=== PATIENT | male | born 1995 | race Caucasian/White ===

== ENCOUNTER 2022-04-12 13:01 | Outpatient (CLI) | payer OTHER, SELFPAY ==
--- OUTSIDE RECORDS SUMMARY | 2022-04-12 08:12 | XMS_ITS | Encounter Summary ---
:1995 Author Organization [facility] Address [address] [place] [address] Care Team Providers Name Role Phone Elsewhere, Pcp Primary Care Provider Unavailable Reason for Visit Reason Comments Previsit Preparation [facility] Appointment Request (Routine) - Authorized Specialty Diagnoses / Procedures Referred By Contact Refer red To Contact Endocrinology Diagnoses Dysphoria Gender Adolescent Or Adult Referral ID Status Reason Start Date Expiration Date Visits V isits Requested Authorized [id number] Authorized 10/29/2021 10/29/2022 4 4 Encounter Details Date Type Department Care Team Description 01/04/2022 Clinical Communication Division of Previ sit Preparation Endocrinology in ([facility]) [place], [place] [address] [place] [address] Social History Tobacco Use Types Packs/Day Years Used Date Smoking Tobacco: Some Days Smokeless Tobacco: Never Alcohol Use Standard Drinks/Week Comments Yes 0 (1 standard drink = 0.6 oz pure alcoho l) occasional Alcohol Habits Answer Date Recorded How often do you have a drink containing alcohol? Monthly or less 03/20/2022 How many drinks containing alcohol do you have on a 1 or 2 03/20/2022 typical day when you are drinking? How often do you have six or more drinks on one Never 03/20/2022 occasion? Social Isolation Answer Date Recorded In a typical week, how many times do you talk on the Once a week 03/20/2022 phone with family, friends, or neighbors? How often do you get together with friends or Once a week 03/20/2022 relatives? How often do you attend adventism or jewish services? Never 03/20/2022 Do you belong to any clubs or organizations such as No 03/20/2022 adventism groups, unions, fraternal or athletic groups, or school groups? How often do you attend meetings of the clubs or Never 03/20/2022 organizations you belong to? Are you now , , , , Patient r efused 03/20/2022 never or living with a partner? Physical Activity Answer Date Recorded On average, how many days per week do you engage in moderate to 2 days 03/20/2022 strenuous exercise (like walking fast, running, jogging, dancing, swimming, biking, or other activities that cause a light or heavy sweat)? On average, how many minutes do you engage in exercise at th is 30 min 03/20/2022 level? Stress Answer Date Recorded Do you feel stress - tense, restless, nervous, or To some ex tent 03/20/2022 anxious, or unable to sleep at night because your mind is troubled all the time - these days? Financial Resource Strain Answer Date Recorded How hard is it for you to pay for the very basics like food, Very hard 03/20/2022 housing, medical care, and heating? Intimate Partner Violence Answer Date Recorded Within the last year, have you been afraid of your partner o r No 03/20/2022 ex-partner? Within the last year, have you been humiliated or emotionall y No 03/20/2022 abused in other ways by your partner or ex-partner? Within the last year, have you been kicked, hit, slapped, or No 03/20/2022 otherwise physically hurt by your partner or ex-partner? Within the last year, have you been raped or forced to have any No 03/20/2022 kind of sexual activity by your partner or ex-partner? Food Insecurity Answer Date Recorded Within the past 12 months, you worried that your food would Never true 03/20/2022 run out before you got money to buy more. Within the past 12 months, the food you bought just didn't N ever true 03/20/2022 last and you didn't have money to get more. Transportation Needs Answer Date Recorded In the past 12 months, has lack of transportation kept you f rom No 03/20/2022 medical appointments or from getting medications? In the past 12 months, has lack of transportation kept you f rom No 03/20/2022 meetings, work, or getting things needed for daily living? Housing Stability Answer Date Recorded In the last 12 months, was there a time when you were Patien t refused 03/20/2022 not able to pay the mortgage or rent on time? In the last 12 months, how many places have you lived? Not a sked In the last 12 months, was there a time when you did Yes 03/20/[address] to sleep or slept in a intermediate (including now)? Sex Assigned at Date Recorded Female 03/20/2022 7:54 AM CDT documented as of this encounter Miscellaneous Notes Telephone Encounter - Nehemiah, Yessenia Edmond R.N. - 01/04/2022 1:04 PM CDT CHIEF COMPLAINT/REASON FOR VISIT Pre-Visit [facility] - Nurse Assessment Date of [facility] appointment: 01/30 Dr. Valente Date of Behavioral Health appointment: 01/23 Dr. Gregg HISTORY OF PRESENT ILLNESS Affirmed Name: Jamin/Pablo Pronouns: he/him Gender identity: male (self-identified by patient) Assigned sex at : Female Patient identified the following barriers to learning: none Gender affirming interventions: Approximate start of social affirmation practices: 6 years ago Hormone therapy: Currently hormones prescribed by providers at [facility]. 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 Ballesteros [facility] Medical History: Anxiety, Depression, PTSD and Bipolar ( on medications) Asthma Genital Herpes Chronic genital pain due to repeat surgeries, takes muscle relaxer and medical marijuana Personal and family history of blood clot ( 2018 personal) not currently on blood thinners, has beentold he has thicker blood ASSESSMENT/PLAN Patient goal(s) for upcoming [facility] visit: transfer gender care to [place] as crime in [place] is terrible. Patient long-term goal(s): penile implant Patient was advised that [facility] follows the [employer] for Transgender Health (WPATH) Standards of Care, Version 7 guidelines. Reviewed appropriate WPATH criteria with patient. Patient reported height: 5'5 Patient reported weight: 204 lbs Calculated BMI: 33.9 Patient advised of surgical BMI requirement < 35 for optimal outcomes Tobacco use: Patient currently smokes medical marijuana . Denies nicotine. Discussed need for letter(s) of support based on desired procedures. Education: patient/caller able to teach back The following references were used: nursing clinical judgement documented in this encounter Plan of Treatment Upcoming Encounters Date Type Specialty Care Team Description 05/23/2022 Telemedicine Endocrinology Arely Bond M.B., B.Ch. [address] [place] [address] [phone] (Wo [id number]) documented as of this encounter Visit Diagnoses Not on filedocumented in this encounter Care Teams Checker Relationship Specialty Start Date End Date Elsewhere, Pcp PCP - General Pot Feeder 07/01/19 documented as of this encounter
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
--- OUTSIDE RECORDS SUMMARY | 2022-04-12 08:12 | XMS_ITS | Encounter Summary ---
:1995 Author Organization [facility] Address [address] [place] [id number] Care Team Providers Name Role Phone Elsewhere, Pcp Primary Care Provider Unavailable Encounter Details Date Type Department Care Team Description 03/20/2022 Hospital Encounter Department of Gomez Bond Gender Laboratory Medicine Deandra Clay, Jak mejia Or Adult and Pathology, [facility] [place] [address] [place] [phone] [place] [address] [place], [place] (Work) [phone] Social History Tobacco Use Types Packs/Day Years Used Date Smoking Tobacco: Some Days Cigarettes Smokeless Tobacco: Never Alcohol Use Standard Drinks/Week [...] 03/20/2022 relatives? How often do you attend denominational or sabianist services? Never 03/20/2022 Do you belong to any clubs or organizations such as No 03/20/2022 denominational groups, unions, fraternal or athletic groups, or [...] place to sleep or slept in a fpc (including now)? Education Answer Date Recorded What is the highest level of school you have completed or 12 th grade 03/20/2022 the highest degree you have received? Sex Assigned at Date Recorded Female 03/20/2022 7:54 AM CDT documented as of this encounter Medications at Time of Discharge Medication Sig Dispensed Refills Start Date End Date acetaminophen (TYLENOL) Take 650 mg by mouth. 0 0 03/15/2016 325 mg tablet albuterol (PROVENTIL Inhale 2 puffs. 0 12/24/2014 HFA,VENTOLIN HFA) 90 mcg/actuation inhaler amphetamine-dextroamphet 0 06/12/2021 amine (ADDERALL XR) 20 mg 24 hr capsule atorvastatin (LIPITOR) Take 40 mg by mouth 0 40 mg tablet daily. bacitracin zinc 500 Apply topically. 0 08/10/2019 unit/gram ointment BD Regular [place]vel [place] USE ONCE WEEKLY FOR 0 27 gauge x 1/2 needle ADMINISTERING HORMONE BD Tuberculin Slip-Tip 1 USE ONCE WEEKLY TO 0 04/2022 mL syringe DRAW UP HORMONES busPIRone (BUSPAR) 30 mg Take 30 mg by mouth 2 0 02/12/2022 tablet (two) times a day. celecoxib (CeleBREX) 200 Take by mouth. 0 mg capsule cholecalciferol (VITAMIN Take 1 tablet by 0 07/17 D3) 50 mcg (2,000 Unit) mouth daily. tablet cyclobenzaprine Take 10 mg by mouth 3 0 2 (FLEXERIL) 10 mg tablet (three) times a day as needed. cyclobenzaprine take 1-2 tablets by 0 11/23/2020 08/08/2022 (FLEXERIL) 5 mg tablet oral route daily as needed for back pain desvenlafaxine daily. 0 (KHEDEZLA) 50 mg 24 hr tablet desvenlafaxine (PRISTIQ) TAKE 1 TAB EACH DAY 0 25 mg 24 hr tablet WITH A 50 MG TAB desvenlafaxine (PRISTIQ) Take 50 mg by mouth 0 50 mg 24 hr tablet daily. dicyclomine (BENTYL) 10 20 mg 4 (four) times 0 mg/5 mL solution a day before meals and bedtime. diphenhydrAMINE Take 50 mg by mouth. 0 03/30/2013 (BENADRYL) 50 mg capsule doxepin (SINEquan) 25 mg TAKE 2 CAPSULES (50 0 capsule MG) BY MOUTH DAILY AT BEDTIME hydrOXYzine (VISTARIL) 0 06/12/2021 50 mg capsule ketorolac (TORADOL) 10 Take by mouth. 0 mg tablet lisinopriL Take 10 mg by mouth 0 01/25/2022 (PRINIVIL,ZESTRIL) 10 mg daily. tablet lisinopriL Take 20 mg by mouth 0 03/01/2022 (PRINIVIL,ZESTRIL) 20 mg daily. tablet meloxicam (MOBIC) 7.5 mg Take 7.5 mg by mouth 0 0 03/11/2022 tablet daily. methylphenidate HCl TAKE 2 TABLETS (20 0 03/07/ 22 (RITALIN) 10 mg tablet MG) BY MOUTH 1 TIME PER DAY ON EMPTY STOMACH metoclopramide (REGLAN) TAKE 1 TABLET BY 0 2021 5 mg tablet MOUTH THREE TIMES DAILY NEEDED FOR NAUSEA AND VOMITING. [facility] Prescription Trazapam 15 mg i po 0 6 (Allergy Immunotherapy) daily for sleep Monoject Hypodermic USE TO DRAW UP 0 02/24/2022 Polypropyl 18 gauge x 1 HORMONES ONCE WEEKLY needle montelukast (SINGULAIR) Take 10 mg by mouth. 0 10 mg tablet naproxen (NAPROSYN) 250 Take 250 mg by mouth. 0 0 10/24/2012 mg tablet nicotine (NICODERM CQ) 7 Place 1 patch on the 56 patch 0 1 mg/24 hr skin daily. patchIndications: Nicotine Dependence Cigarettes nortriptyline (PAMELOR) Take 50 mg by mouth 0 25 mg capsule daily. omeprazole (PriLOSEC) [address] capsule ondansetron (ZOFRAN) 4 Take 4 mg by mouth 0 mg tablet every 8 (eight) hours as needed for nausea or vomiting. ondansetron ODT 4 mg. 0 02/25/2019 (ZOFRAN-ODT) 4 mg disintegrating tablet OXcarbazepine TAKE 1 TABLET BY 0 02/25/2022 (TRILEPTAL) 150 mg MOUTH IN THE MORNING tablet AND 2 TABLETS AT BEDTIME. pantoprazole (PROTONIX) 0 06/12/2021 20 mg EC tablet PARoxetine (PAXIL) 20 mg Take 20 mg by mouth. 0 1 tablet pirbuterol acetate Inhale 2 puffs as 0 05/21/2011 (MAXAIR AUTOHALER INHL) needed. predniSONE (DELTASONE) Take 1 tablet (10 mg 50 tablet 1 10/2021 10 mg tablet total) by mouth daily. predniSONE (DELTASONE) Take 40 mg by mouth. 0 20 mg tablet pregabalin (LYRICA) 300 Take 300 mg by mouth 0 mg capsule 2 (two) times a day. rosuvastatin (CRESTOR) Take 20 mg by mouth 0 02/14 20 mg tablet daily. solifenacin (VESICARE) 5 daily. 0 mg tablet sulfamethoxazole-trimeth Take 1 tablet by 0 03/31 oprim (BACTRIM DS) mouth 2 (two) times a 800-160 mg per tablet day. testosterone cypionate Inject 60 mg 0 06/18/2021 (DEPO-TESTOSTERONE) 200 intramuscularly. mg/mL injection valACYclovir (VALTREX) Take 1 tablet by 0 015 500 mg tablet mouth. documented as of this encounter Plan of Treatment Upcoming Encounters Date Type Specialty Care Team Description 05/23/2022 Telemedicine Endocrinology Arely Bond M.B., B.Ch. 200 [place], [place] [phone] (Wo rk) documented as of this encounter Procedures Procedure Name Priority Date/Time Associated Comments Diagnosis LIPID PANEL, S Routine 03/20/2022 9:54 AM Dysphoria Gender Res ults for this CDT Adolescent Or Adult procedur e are in the results section. CBC WITHOUT Routine 03/20/2022 9:54 AM Dysphoria Gender Resul ts for this DIFFERENTIAL, B CDT Adolescent Or Adult proce dure are in the results section. TESTOSTERONE, TOT AND Routine 03/20/2022 9:54 AM Dysphoria Gen josh Results for this FR, S CDT Adolescent Or Adult procedur e are in the results section. HEMOGLOBIN A1C, B Routine 03/20/2022 9:54 AM Dysphoria Gender Results for this CDT Adolescent Or Adult procedur e are in the results section. COMPREHENSIVE Routine 03/20/2022 9:54 AM Dysphoria Gender Resu lts for this METABOLIC PANEL, S/P CDT Adolescent Or Adult procedure are in the results section. documented in this encounter Results Testosterone, Total and Free (03/20/2022 9:54 AM CDT) athologist Signature Testosterone, 15.7 5.05 - 19.8 03/29/2022 SDSC Free, S ng/dL 1:27 PM CDT Comment: ----ADDITIONAL INFORMATION---- This test was developed and its performa nce characteristics determined by [facility] in a manner consistent with CLIA requirements. This test has not been cleared or approved by the [place] d and Drug Administration. Testosterone, Total by Mass 337 240 - 950 ng/dL 2021 3:05 PM CDT SDSC Spectrometry, Serum Comment: ----ADDITIONAL INFORMATION---- Testing performed by Liquid Chromatograp hy-Tandem Mass Spectrometry (LC-MS/MS). This test was developed and its performa nce characteristics determined by [facility] in a manner consistent with CLIA requirements. This test has not been cleared or approved by the [place] A[place] d and Drug Administration. Specimen Anatomical Collection Method Collection Time Receive d Time (Source) Location / / Volume Laterality Blood (Blood, 03/20/2022 9:54 AM 03/21/20 22 6:41 Venous) CDT AM CDT Arely Liriano, B.Ch. LAB BLOOD NON ADD -ON Performing Organization Address City/State/ZIP Code Phon e Number [facility] [address] [place], [place] [address] [facility] [place] [address] [place] (ABNORMAL) Lipid Panel (03/20/2022 9:54 AM CDT) P athologist Signature Triglycerides 455 (H) mg/dL 03/20/2022 DTL 11:02 AM CDT Comment: ----REFERENCE VALUE---- Normal: <150 mg/dL Borderline High: 150-199 mg/dL High: 200-499 mg/dL Very High: > or =500 mg/dL Cholesterol, Total 273 (H) mg/dL 03/20/2022 11:02 AM C DT DTL Comment: ----REFERENCE VALUE---- Desirable: < 200 mg/dL Borderline High: 200 - 239 mg/dL High: > or = 240 mg/dL Cholesterol, LDL, Calculated 148 (H) mg/dL 03/20/2022 11:02 AM CDT DTL Comment: ----REFERENCE VALUE---- Desirable: <100 mg/dL Above Desirable: 100-129 mg/dL Borderline High: 130-159 mg/dL High: 160-189 mg/dL Very High: >=190 mg/dL ----ADDITIONAL INFORMATION---- LDL cholesterol calculated using the Ribera/NIH equation. Cholesterol, HDL, S 39 (L) >=40 mg/dL 03/20/2022 11:02 AM CDT DTL Cholesterol, Non-HDL, Calculated 234 (H) mg/dL 11:02 AM CDT DTL Comment: ----REFERENCE VALUE---- Desirable: <130 mg/dL Above Desirable: 130-159 mg/dL Borderline High: 160-189 mg/dL High: 190-219 mg/dL Very High: > or =220 mg/dL Fasting (8 HR or more) Yes 03/20/2022 10:35 AM CDT DTL Specimen Anatomical Collection Method Collection Time Receive d Time (Source) Location / / Volume Laterality Blood (Blood, 03/20/2022 9:54 AM 03/20/20 22 Venous) CDT 10:35 AM CDT Arely Liriano, B.Ch. LAB BLOOD ADD-ON Performing Organization Address City/State/ZIP Code Phon e Number [facility] - [address] [place] [address] (ABNORMAL) Hemoglobin A1c (03/20/2022 9:54 AM CDT) athologist Signature Hemoglobin A1c, 6.3 (H) 4.0 - 5.6 03/20/2022 DTL B % 11:41 AM CDT Comment: Hemoglobin A1c values of 5.7-6.4 percent indicate an increased risk for developing diabetes lauro traylor. In diabetic patients, HbA1c goals should be discussed with healthcare provider. Specimen Anatomical Collection Method Collection Time Receive d Time (Source) Location / / Volume Laterality Blood (Blood, 03/20/2022 9:54 AM 03/20/20 Venous) CDT 10:22 AM CDT Arely Liriano, B.Ch. LAB BLOOD ADD-ON Performing Organization Address City/[facility] Phon e Number [facility] - 200 [place], [place] [address] [place] [phone] (ABNORMAL) Comprehensive Metabolic Panel (03/20/2022 9:54 AM CDT) athologist Signature Potassium, S 4.8 3.6 - 5.2 03/20/2022 DTL mmol/L 11:02 AM CDT Sodium, S 139 135 - 145 03/20/2022 DTL mmol/L 11:02 AM CDT Chloride, S 99 98 - 107 03/20/2022 DTL mmol/L 11:02 AM CDT Bicarbonate, S 27 22 - 29 03/20/2022 DTL mmol/L 11:02 AM CDT Anion Gap 13 7 - 15 03/20/2022 DTL 11:02 AM CDT BUN (Blood Urea 19 8 - 24 03/20/2022 DTL Nitrogen), S mg/dL 11:02 AM CDT Creatinine 1.30 0.74 - 03/20/2022 DTL 1.35 mg/dL 11:02 AM CDT Estimated GFR 77 >=60 03/20/2022 DTL (eGFR) mL/min/BSA 11:02 AM CDT Comment: Estimated GFR calculated using the 2020 CKD_EPI creatinine equation. Calcium, Total, S 9.9 8.6 - 10.0 mg/dL 03/20/2022 11:0 2 AM CDT DTL Glucose, S 117 70 - 140 mg/dL 03/20/2022 11:02 AM CDT DTL Protein, Total, S 7.0 6.3 - 7.9 g/dL 03/20/2022 11:02 AM CDT DTL Albumin, S 4.7 3.5 - 5.0 g/dL 03/20/2022 11:02 AM CDT DTL Aspartate Aminotransferase 73 (H) 8 - 48 U/L 03/20/2022 1 1:02 AM CDT DTL (AST), S Alkaline Phosphatase, S 64 40 - 129 U/L 03/20/2022 11 :02 AM CDT DTL Alanine Aminotransferase 97 (H) 7 - 55 U/L 03/20/2022 11: 02 AM CDT DTL (ALT), S Bilirubin, Total, S 0.3 <=1.2 mg/dL 03/20/2022 11:02 A M CDT DTL Specimen Anatomical Collection Method Collection Time Receive d Time (Source) Location / / Volume Laterality Blood (Blood, 03/20/2022 9:54 AM 03/20/20 22 Venous) CDT 10:35 AM CDT Arely Liriano, B.Ch. LAB BLOOD ADD-ON Performing Organization Address City/State/ZIP Code Phon e Number [facility] - [address] [place], [place] [address] [place] [address] [facility] [address] CBC without Differential (03/20/2022 9:54 AM CDT) P athologist Signature Hemoglobin 15.2 13.2 - 03/20/2022 DTL 16.6 g/dL 11:14 AM CDT Hematocrit 46.9 38.3 - 03/20/2022 DTL 48.6 % 11:14 AM CDT Erythrocytes 5.09 4.35 - 03/20/2022 DTL 5.65 11:14 AM CDT x10(12)/L MCV 92.1 78.2 - 03/20/2022 DTL 97.9 fL 11:14 AM CDT RBC Distrib Width 13.1 11.8 - 03/20/2022 DTL 14.5 % 11:14 AM CDT Platelet Count 265 135 - 317 03/20/2022 DTL x10(9)/L 11:14 AM CDT Leukocytes 5.7 3.4 - 9.6 03/20/2022 DTL x10(9)/L 11:14 AM CDT Specimen Anatomical Collection Method Collection Time Receive d Time (Source) Location / / Volume Laterality Blood (Blood, 03/20/2022 9:54 AM 03/20/20 22 Venous) CDT 10:22 AM CDT Arely Liriano, B.Ch. LAB BLOOD ADD-ON Performing Organization Address City/State/ZIP Code Phon e Number [facility] - [address] [place], [place] [address] [place] [address] [facility] [address] documented in this encounter Visit Diagnoses Diagnosis Dysphoria Gender Adolescent Or Adult documented in this encounter Additional Health Concerns Assessment Noted Time PHQ-9 Depression Total Score: 11 01/23/2022 8:08 AM CD T documented as of this encounter Care Teams Manager Appointment Relationship Specialty Start Date End Date Elsewhere, Pcp PCP - General Esthetician Permanent Makeup Artist 07/01/19 documented as of this encounter
--- OUTSIDE RECORDS SUMMARY | 2022-04-12 08:12 | XMS_ITS | Encounter Summary ---
:1995 Author Organization [facility] Address [address] [place] [address] Care Team Providers Name Role Phone Elsewhere, Pcp Primary Care Provider Unavailable Reason for Visit Reason Comments Follow-up [facility] Encounter Details Date Type Department Care Team Description 03/20/2022 Clinical Communication Division of Guido Jaramillo ([facility]) Endocrinology in [place], [place] [facility] [address] [facility] [phone] [place], [place] (Work) [phone] Social History Tobacco Use Types Packs/Day Years [...] 03/20/2022 relatives? How often do you attend oriental orthodox or mormonism services? Never 03/20/2022 Do you belong to any clubs or organizations such as No 03/20/2022 oriental orthodox groups, unions, fraternal or athletic groups, or [...] place to sleep or slept in a retirement (including now)? Education Answer Date Recorded What is the highest level of school you have completed or 12 th grade 03/20/2022 the highest degree you have received? Sex Assigned at Date Recorded Female 03/20/2022 7:54 AM CDT documented as of this encounter Plan of Treatment Upcoming Encounters Date Type Specialty Care Team Description 05/23/2022 Telemedicine Endocrinology Arely Bond M.B., B.Ch. [address] [place] [phone] (Wo rk) documented as of this encounter Visit Diagnoses Diagnosis Nicotine Dependence Cigarettes - Primary documented in this encounter Additional Health Concerns Assessment Noted Time PHQ-9 Depression Total Score: 11 01/23/2022 8:08 AM CD T documented as of this encounter Care Teams Carbider Relationship Specialty Start Date End Date Elsewhere, Pcp PCP - General Paint Dipper 07/01/19 documented as of this encounter
--- OUTSIDE RECORDS SUMMARY | 2022-04-12 08:12 | XMS_ITS | Encounter Summary ---
:1995 Author Organization [facility] Address [address] [place] [id number] Care Team Providers Name Role Phone Elsewhere, Pcp Primary Care Provider Unavailable Reason for Referral Outpatient (Routine) - Authorized Specialty Diagnoses / Procedures Referred By Contact Refer red To Contact Endocrinology Arely Bond [place] M.B., B.Ch. [address] [place], [place] [address] Referral ID Status Reason Start Date Expiration Date Visits V isits Requested Authorized [id number] Authorized 03/20/2022 03/19/2025 1 1 Reason for Visit Reason Comments [facility] Appointment Request (Routine) - Authorized Specialty Diagnoses / Procedures Referred By Contact Refer layne To Contact Endocrinology Diagnoses Dysphoria Gender Adolescent Or Adult Referral ID Status Reason Start Date Expiration Date Visits V isits Requested Authorized [id number] Authorized 10/29/2021 10/29/2022 4 4 Encounter Details Date Type Department Care Team Description 03/20/2022 Comprehensive Visit Division of Ronda, Gomez francisco javier Gender Endocrinology in [place], [place] Deandra, B.Ch. Adult (Primary Dx) [address] [place] [address] [address] [place] [phone] Social History Tobacco Use Types Packs/Day Years Used Date Smoking Tobacco: Some Days Cigarettes Smokeless Tobacco: Never Tobacco Cessation: Ready to Quit: Not As ked; Counseling Given: Not Answered Alcohol Use Standard Drinks/Week Comments Yes 0 [...] How often do you attend denominational or taoist services? Never 03/20/2022 Do you belong to [...] to sleep or slept in a senior care (including now)? Education Answer Date Recorded What is the highest level of school you have completed or 12 th grade 03/20/2022 the highest degree you have received? Sex Assigned at Date Recorded Female 03/20/2022 7:54 AM CDT documented as of this encounter Last Filed Vital Signs Vital Sign Reading Time Taken Comments Blood Pressure 119/81 03/20/2022 8:06 AM CDT Pulse 84 03/20/2022 8:06 AM CDT Temperature - - Respiratory Rate - - Oxygen Saturation - - Inhaled Oxygen Concentration - - Weight 101 kg (221 lb 12.5 oz) 03/20/2022 8:06 AM CDT Height 166.7 cm (5' 5.63) 03/20/2022 8:06 AM CDT Body Mass Index 36.2 03/20/2022 8:06 AM CDT documented in this encounter Consult Notes Arely Bond M.B., B.. - 03/20/2022 8:30 AM CDT SUBJECTIVE REASON FOR CONSULT Transfer of hormone therapy. HISTORY OF PRESENT ILLNESS Jamin is a pleasant 26-year-old transgender man who presents today with his mother. He plans to transition his hormone therapy to [facility]. He was previously seen in [facility]. He did meet with my colleague, Dr. Gregg, on 01/23/2022, and I refer the reader to his extensive note. From a medical standpoint, Jamin initiated hormone therapy in 2013. He has been following with [facility] and is injecting testosterone cypionate 60 mg subcutaneous weekly typically on Fridays. He denies any recent laboratory testing. He denies any significant concerns related to his hormone therapy. He has had fairly extensive gender affirming surgery with masculinizing chest surgery in 2015. He hada hysterectomy and bilateral oophorectomy in 2013 and then phalloplasty in 2018. He had multiple complications related to his phalloplasty and had multiple revisions. He ultimately would like a penile i mplant. He is not able to urinate through the phallus. He has an opening on the perineum. He does describe some urgency and leakage. He denies any other surgeries other than gender affirming surgeries. He also has a fairly complex medical history. When we reviewed his medication list, I noted that he is on a total dose of prednisone 40 mg per day. We had further discussions around this and it seems it was prescribed for chronic back pain. This continues to be refilled with no taper plan. He believearpita has been on this for a few months. Associated with the initiation of prednisone, he has had significant weight gain. In addition, his blood pressure has significantly elevated. He does take a statinfor dyslipidemia. He has not been checked for diabetes. He does describe a history of gastroparesis.He also has a history of bipolar disorder as well as ADHD. He has chronic groin pain related to his p revious phalloplasty. He has gastroesophageal reflux disease. He does use medical marijuana. He smokes about 2 cigarettes per day. He is not currently working. FAMILY HISTORY There is an extensive family history of DVT. His mother has had multiple DVTs and PEs. She did have genetic testing and this was negative, although they described that this is likely hereditary as his maternal grandmother also had a DVT. Maternal grandfather had aortic aneurysm, coronary artery disease, and dyslipidemia. Paternal uncle with aortic aneurysm. Paternal aunt also had a DVT. Type 2 diabetes on the paternal side of the family. OBJECTIVE PHYSICAL EXAMINATION General: Jamin is pleasant. Somewhat cushingoid. Lungs: Clear to auscultation bilaterally. Cardiovascular: Regular rate and rhythm. Abdomen: Obese, soft, and nontender. Extremities: No peripheral edema. ASSESSMENT / PLAN #1 Gender dysphoria/incongruence, on masculinizing hormone therapy #2 Status post masculinizing chest surgery, total abdominal hysterectomy and bilateral salpingo-oophorectomy and subsequently phalloplasty with multiple revisions #3 Ongoing urinary urgency and mild incontinence #4 Chronic steroid use with medically complicated obesity Jamin would like to transfer his hormone therapy here to [facility]. We will check his CBC as well as total and free testosterone. With respect to his surgical care, he would eventually like a penile implant. No immediate concerns in this regard, although he does have some chronic groin pain as well as some urinary symptoms, which are stable. Our biggest discussion today centered around his chronic steroid use, which I suspect is leading to a number of his current medical concerns. Based on medical review, he is taking 40 mg of prednisone per day. We will confirm this with his nurse. I did provide them a taper plan that is fairly rapid to get his dose down as there is no clear medical indication for him utilizing this. We did discuss that he might develop some increased back pain as his dose tapers. I would like him to let me know if he develops significant symptoms of steroid withdrawal and also once he reaches 10 mg daily. We discussed that he cannot come off prednisone cold turkey as he will develop acute adrenal insufficiency. I would like to see Jamin every 3 months as we go through the steroid taper process. #5 Strong family history of DVT/PE I strongly recommended that Jamin discontinue smoking. We will see Jamin again in 3 months. We will obtain laboratory testing today. He can contact me in the interim if any acute concerns arise. Adeline Neely., B.. CT CT Job ID: [id number] documented in this encounter Plan of Treatment Upcoming Encounters Date Type Specialty Care Team Description 05/23/2022 Telemedicine Endocrinology Arely Bond M.B., B.Ch. [address] [place], [place] [phone] (Wo rk) Scheduled Referrals Name Type Priority Associated Order Schedule Diagnoses Endocrinology office Outpatient Referral Routine Expected: visit (clinic) 06/20/2022 (Approximate), Expires: 06/20/2023 documented as of this encounter Results Testosterone, Total and Free (03/20/2022 9:54 AM CDT) athologist Signature Testosterone, 15.7 5.05 - 19.8 03/29/2022 [facility] Free, S ng/dL 1:27 PM CDT Comment: ----ADDITIONAL INFORMATION---- This test was developed and its performa nce characteristics determined by [facility] in a manner consistent with CLIA requirements. This test has not been cleared or approved by the [place] A[place] d and Drug Administration. Testosterone, Total by Mass 337 240 - 950 ng/dL 2021 3:05 PM CDT [facility] Spectrometry, Serum Comment: ----ADDITIONAL INFORMATION---- Testing performed by Liquid Chromatograp hy-Tandem Mass Spectrometry (LC-MS/MS). This test was developed and its performa nce characteristics determined by [facility] in a manner consistent with CLIA requirements. This test has not been cleared or approved by the [place]. A[place] d and Drug Administration. Specimen Anatomical Collection Method Collection Time Receive d Time (Source) Location / / Volume Laterality Blood (Blood, 03/20/2022 9:54 AM 03/21/20 6:41 Venous) CDT AM CDT Arely Liriano, B.Ch. LAB BLOOD NON ADD -ON Performing Organization Address City/State/ZIP Code Phon e Number [facility] [address] [place], [place] [address] [place] [address] [facility] [address] [place] (ABNORMAL) Lipid [...] DTL Cholesterol, Non-HDL, Calculated 234 (H) mg/dL 022 11:02 AM CDT DTL Comment: ----REFERENCE VALUE---- [...] Organization Address City/State/ZIP Code Phon e Number [address] (ABNORMAL) Hemoglobin A1c (03/20/2022 9:54 AM [...] Organization Address City/State/ZIP Code Phon e Number [address] (ABNORMAL) Comprehensive Metabolic Panel (03/20/2022 9:54 [...] (Blood, 03/20/2022 9:54 AM 03/20/20 Venous) CDT 10:35 AM CDT Arely Liriano, B.Ch. LAB BLOOD ADD-ON Performing Organization Address City/State/ZIP Code Phon e Number [facility] - [address] [place] [address] [place] [address] [facility] 200 [facility] CBC without Differential (03/20/2022 9:54 AM CDT) [...] Organization Address City/State/ZIP Code Phon e Number [facility] - [address] [place], [place] [address] [facility] [place] [address] [facility] [address] documented in this encounter Visit Diagnoses Diagnosis Dysphoria Gender Adolescent Or Adult - P rimary documented in this encounter Additional Health Concerns Assessment Noted Time PHQ-9 Depression Total Score: 11 01/23/2022 8:08 AM CD T documented as of this encounter Care Teams Maintenance Mechanic Helper Relationship Specialty Start Date End Date Elsewhere, Pcp PCP - General Polymer Chemist 07/01/19 documented as of this encounter
--- OUTSIDE RECORDS SUMMARY | 2022-04-12 08:12 | XMS_ITS | Encounter Summary ---
:1995 Author Organization [facility] Address [address] [place] [address] Care Team Providers Name Role Phone Elsewhere, Pcp Primary Care Provider Unavailable Reason for Visit Reason Comments Urinary Frequency Symptoms started at dinner t john. Inability to control urination. No burning, no blood. Encounter Details Date Type Department Care Team Description 08/12/2021 Emergency [place] [facility] Gulshan Talavera Frequ ency Urinary Department C.N.P. (Primary Dx) [address] [place] [address] [place] [phone] Social History Tobacco Use Types Packs/Day Years [...] often do you attend oriental orthodox or episcopalian services? Never 03/20/2022 Do you belong to [...] place to sleep or slept in a long-term (including now)? Sex Assigned at Date Recorded Female 03/20/2022 7:54 AM CDT documented as of this encounter Last Filed Vital Signs Vital Sign Reading Time Taken Comments Blood Pressure 154/100 08/12/2021 2:20 AM APPLICATIONS SPECIALIST Pulse 84 08/12/2021 2:20 AM APPLICATIONS SPECIALIST Temperature 37.5 ??C (99.5 ??F) 08/12/2021 2:20 AM APPLICATIONS SPECIALIST Respiratory Rate 16 08/12/2021 2:20 AM APPLICATIONS SPECIALIST Oxygen Saturation 98% 08/12/2021 2:20 AM APPLICATIONS SPECIALIST Inhaled Oxygen Concentration - - Weight 92.2 kg (203 lb 4.2 oz) 08/12/2021 2:20 AM APPLICATIONS SPECIALIST Height - - Body Mass Index 34.89 12/01/2019 12:42 PM CDT documented in this encounter Discharge Instructions Discharge InstructionsGulshan Talavera, C.N.P. - 08/12/2021 3:10 AM CST Your urine is reassuring with no signs of bladder infection at this time. However, given your frequency and urgency, a urine culture is pending. If it is positive, you will be notified for antibiotic. Otherwise, you can consider Kegel exercise to train your pelvic muscle to help with the frequency andurgency. Consider follow up with your primary care provider for further evaluation next week. Go to the emergency department if you have fever, nausea or vomiting that you cannot control, abdominal pain, or worsening symptoms. ICATIONS SPECIALIST AttachmentsThe following attachments cannot be sent through Care Everywhere. Urinary Frequency Adult (Ukrainian)documented in this encounter Medications at Time of Discharge [...] 500 Apply topically. 0 08/10/2019 unit/gram ointment celecoxib (CeleBREX) 200 Take by mouth. 0 mg capsule cholecalciferol (VITAMIN Take 1 tablet by 0 07/17 D3) 50 mcg (2,000 Unit) mouth daily. tablet cyclobenzaprine take 1-2 tablets by 0 11/23/2020 08/08/2022 (FLEXERIL) 5 mg tablet oral route daily as needed for back pain dicyclomine (BENTYL) 10 20 mg 4 (four) times 0 mg/5 mL solution a day before meals and bedtime. diphenhydrAMINE Take 50 mg by mouth. 0 03/30/2013 (BENADRYL) 50 mg capsule hydrOXYzine (VISTARIL) 0 06/12/2021 50 mg capsule ketorolac (TORADOL) 10 Take by mouth. 0 mg tablet [facility] Prescription Trazapam 15 mg i po 0 6 (Allergy Immunotherapy) daily for sleep montelukast (SINGULAIR) Take 10 mg by mouth. 0 10 mg tablet naproxen (NAPROSYN) 250 Take 250 mg by mouth. 0 0 10/24/2012 mg tablet ondansetron (ZOFRAN) 4 Take 4 mg by mouth 0 mg tablet every 8 (eight) hours as needed for nausea or vomiting. ondansetron ODT 4 mg. 0 02/25/2019 (ZOFRAN-ODT) 4 mg disintegrating tablet pantoprazole (PROTONIX) 0 06/12/2021 20 mg EC tablet PARoxetine (PAXIL) 20 mg Take 20 mg by mouth. 0 1 tablet pirbuterol acetate Inhale 2 puffs as 0 05/21/2011 (MAXAIR AUTOHALER INHL) needed. predniSONE (DELTASONE) Take 40 mg by mouth. 0 20 mg tablet sulfamethoxazole-trimeth Take 1 tablet by 0 03/31 oprim (BACTRIM DS) mouth 2 (two) times a 800-160 mg per tablet day. testosterone cypionate Inject 60 mg 0 06/18/2021 (DEPO-TESTOSTERONE) 200 intramuscularly. mg/mL injection valACYclovir (VALTREX) Take 1 tablet by 0 015 500 mg tablet mouth. gabapentin (NEURONTIN) Take 300 mg by mouth 0 12/201703/20/2022 300 mg capsule at bedtime. HYDROcodone-acetaminophe hydrocodone 5 0 08/10/19 20 03/20/2022 n (NORCO) 5-325 mg per mg-acetaminophen 325 tablet mg tablet ibuprofen (ADVIL,MOTRIN) Take 400 mg by mouth. 0 08/10/2019 03/20/2022 400 mg tablet Misc Prescription Misc Prescription See 0 016 03/20/2022 (Allergy Immunotherapy) Instructions, testoterone--80 mg IM per week--(has been taking past 8 months) topiramate (TOPAMAX) 25 Take 1 tablet by 0 201503/20/2022 mg tablet mouth daily. traMADol (ULTRAM) 50 mg Take 1 tablet (50 mg 20 tablet 0 03/20/2022 tablet total) by mouth every 4 (four) hours as needed for pain. traZODone (DESYREL) 100 Take 1 tablet by 0 201403/20/2022 mg tablet mouth at bedtime. documented as of this encounter ED Notes Gulshan Talavera, C.N.P. - 08/12/2021 2:33 AM CST SUBJECTIVE CHIEF COMPLAINT/REASON FOR VISIT Urinary Frequency (Symptoms started at dinner time. Inability to control urination. No burning, no blood.) HISTORY OF PRESENT ILLNESS Pablo Chakraborty is a 26 y.o. adult who presents to the ED concerning for urinary frequency. Patient reports since yesterday afternoon he has been having symptoms of of increasing urgency as well as frequency. He does endorse history of UTI. He denies being sexually active. He does endorse having chills with no fever. Denies any back pain, kidney pain, abdominal pain, nausea, or vomiting. REVIEW OF SYSTEMS Constitutional: Negative for chills and fever. HENT: Negative for facial swelling. Eyes: Negative for may-orbital edema. Respiratory: Negative for shortness of breath. Cardiovascular: Negative for chest pain. Gastrointestinal: Negative. Genitourinary: Positive for frequency and urgency. Negative for flank pain. Musculoskeletal: Negative. Negative for back pain. Skin: Negative for pallor. Neurological: Negative. Psychiatric/Behavioral: Negative. All other systems reviewed and are negative. OBJECTIVE Initial Vitals Temperature Pulse Rate Heart Rate Resp Rate Blood Pressure SpO2 08/12/2121908/12/21219 -- 08/12/2121908/12/2121908/12/21219 37.5 ??C 84 16 (!) 154/100 98 % Pain Score 08/12/21218 0 - No pain PHYSICAL EXAMINATION Constitutional: He appears not lethargic. No distress. HENT: Nose: Nose normal. Eyes: Conjunctivae are normal. Pulmonary/Chest: Effort normal. Abdominal: There is no abdominal tenderness. There is no CVA tenderness. Neurological: Alert and oriented to person, place, and time. Skin: Skin is normal color. He is not diaphoretic. Psychiatric: He has a normal mood and affect. ASSESSMENT/PLAN IMPRESSION AND PLAN Differential diagnosis includes acute cystitis, pyelonephritis, ureteritis, and others considered. Patient presents concerning for increasing urgency as well as frequency. No fever. No flank pain or back pain. No abdominal pain or pelvic pain. Not sexually active. Urinalysis unremarkable. However, given symptomatic, urine culture is pending. Plan: Discharge home pending urine culture. Strict return precaution given. I personally reviewed the lab result(s) and my interpretation is normal. ED Course as of 08/12/21309 Sun Aug 12, 2021 025 Glucose: Negative Negative glucose.no history of diabetes. Do not suspect diabetes at this time. 0252 Nitrite, U: Negative 0252 Leukocyte Esterase: Negative 0258 Mucus: Present 0306 Squamous Cells: Occ-3 Final Diagnoses: as of 08/12/21309 Frequency Urinary Gulshan Talavera, C.N.P. 08/12/21309 ICATIONS SPECIALIST documented in this encounter Plan of Treatment Upcoming Encounters Date Type Specialty Care Team Description 05/23/2022 Telemedicine Endocrinology Arely Bond M.B., B.. [address] [place], [place] [phone] (Wo rk) documented as of this encounter Procedures Procedure Name Priority Date/Time Associated Comments Diagnosis BACTERIAL CULTURE, STAT 08/12/2021 2:30 AM Res ults for this AEROBIC + SUSC, URINE APPLICATIONS SPECIALIST proced ure are in the results section. URINALYSIS WITH STAT 08/12/2021 2:30 AM Result s for this MICROSCOPIC APPLICATIONS SPECIALIST procedure are i n the results section. documented in this encounter Results (ABNORMAL) Bacterial Culture, Aerobic + Susc, Urine (08/12/2021 2:30 AM APPLICATIONS SPECIALIST) Analysis Performed At [facility] Signature Urine Culture Mixed 08/13/2021 ECLR diana. (A) 10:43 AM APPLICATIONS SPECIALIST Specimen Anatomical Collection Method Collection Time Receive d Time (Source) Location / / Volume Laterality Urine (Urine, 08/12/2021 2:30 AM 08/12/19 22 2:34 Midstream) APPLICATIONS SPECIALIST PM APPLICATIONS SPECIALIST Comment: Specimen Source Site: Urine Gulshan Talavera C.N.PDario LAB MICROBIOLOGY - GENERAL O RDERABLES Performing Organization Address City/State/ZIP Code Phon e Number [facility]- [address] [place] [phone] [facility] [place] [address] System [address] (ABNORMAL) Urinalysis with Microscopic: Urine, Midstream (08/12/2021 2:30 AM APPLICATIONS SPECIALIST) Analysis Performed At Patho logist Time Signature Source Urine, Urine, 08/12/2021 [facility] [place]stream 2:45 AM APPLICATIONS SPECIALIST Clarity Clear Clear 08/12/2021 [facility] 2:48 AM APPLICATIONS SPECIALIST Color Yellow 08/12/2021 [facility] 2:48 AM APPLICATIONS SPECIALIST Comment: ----REFERENCE VALUE---- Colorless Yellow Debby Blood Negative Negative 08/12/2021 2:48 AM APPLICATIONS SPECIALIST CNFL Nitrite Negative Negative 08/12/2021 2:48 AM APPLICATIONS SPECIALIST [facility]FL Leukocyte Esterase Negative Negative 08/12/2021 2:48 AM CS T [facility]FL Protein Negative mg/dL 08/12/2021 2:48 AM APPLICATIONS SPECIALIST CNFL Comment: ----REFERENCE VALUE---- Negative Trace Glucose Negative Negative mg/dL 08/12/2021 2:48 AM APPLICATIONS SPECIALIST CN FL Ketones, QI(U) Negative Negative mg/dL 08/12/2021 2:[address] [facility] Bilirubin Negative Negative 08/12/2021 2:48 AM APPLICATIONS SPECIALIST CN[facility] pH 7.5 5.0 - 8.0 08/12/2021 2:48 AM APPLICATIONS SPECIALIST [facility] Specific [place] 1.020 1.001 - 1.035 08/12/2021 2:48 AM APPLICATIONS SPECIALIST [facility] Urobilinogen 0.2 0.2 - 1.0 mg/dL 08/12/2021 2:48 AM CS T [facility] White Blood Cells Occ-3 /hpf 08/12/2021 3:04 AM APPLICATIONS SPECIALIST CN[facility] Comment: ----REFERENCE VALUE---- Males: 0-3 Females: 0-10 Unknown: 0-10 Red Blood Cells Occ-2 0 - 2 /hpf 08/12/2021 3:04 AM APPLICATIONS SPECIALIST [facility]FL Dysmorphic Red Blood <=25 <=25 % 08/12/2021 3:04 AM APPLICATIONS SPECIALIST [facility] Cells Crystals Amorphous (A) None Seen /lpf 08/12/2021 3:04 AM CS T CNFL Mucus Present /hpf 08/12/2021 3:04 AM APPLICATIONS SPECIALIST [facility] Squamous Cells Occ-3 /hpf 08/12/2021 3:04 AM APPLICATIONS SPECIALIST CN [place] Specimen Anatomical Collection Method Collection Time Receive d Time (Source) Location / / Volume Laterality Urine (Urine, 08/12/2021 2:30 AM 08/12/19 22 2:45 Midstream) APPLICATIONS SPECIALIST AM APPLICATIONS SPECIALIST Gaffney N Talavera C.N.P. LAB URINE ORDERABLES Performing Organization Address City/State/ZIP Code Phon e Number [facility]- [address] [place] [address] [place] [address] System in [address] documented in this encounter Visit Diagnoses Diagnosis Frequency Urinary - Primary documented in this encounter Care Teams Personnel Arbitrator Relationship Specialty Start Date End Date Elsewhere, Pcp PCP - General Terrazzo Finisher Helper 07/01/19 documented as of this encounter
--- OUTSIDE RECORDS SUMMARY | 2022-04-12 08:12 | XMS_ITS | Encounter Summary ---
:1995 Author Organization [facility] Address [address] [place] [address] Care Team Providers Name Role Phone Elsewhere, Pcp Primary Care Provider Unavailable Reason for Visit Appointment Request (Routine) - Authorized Specialty Diagnoses / Procedures Referred By Contact Refer red To Contact Endocrinology Diagnoses Dysphoria Gender Adolescent Or Adult Referral ID Status Reason Start Date Expiration Date Visits V isits Requested Authorized [id number] Authorized 10/29/2021 10/29/2022 4 4 Encounter Details Date Type Department Care Team Description 03/20/2022 Nurse Only Division of Endocrinology in Cheryl Jaramillo, [place], [place] RAdebayo, [facility] [address] [facility] [place] [phone] Social History Tobacco Use Types Packs/Day Years [...] 03/20/2022 relatives? How often do you attend christianity or scientology services? Never 03/20/2022 Do you belong to any clubs or organizations such as No 03/20/2022 christianity groups, unions, fraternal or athletic groups, or [...] AM CDT documented as of this encounter Progress Notes Nadja Jaramillo R.N., CDCES - 03/20/2022 9:30 AM CDT Affirmed name: Pablo Pronouns: he/him Gender identity: man Sex assigned at : female Reason for Visit Pablo presents following [facility]. He met with Dr Bond in endocrinology and with Dr Gregg in behavioral health. Primary goal is to transfer gender care to the [facility]. Please see nurse previsit screening for more detailed history. Assessment/Plan I reviewed [facility] structure with Pablo including team-based approach, WPATH criteria, process to achieve gender affirming interventions at [facility] and contact information. Dr Bond has recommended that patient taper off of daily prednisone and has provided a tapering schedule for this purpose. In addition, patient was strongly encouraged to quit smoking and, per patient request, prescription for Nicoderm patches has been provided. Lastly, patient has a home health provider who sets up medications for him I have requested a current list of meds and doses from this provider. documented in this encounter Plan of Treatment Upcoming Encounters Date Type Specialty Care Team Description 05/23/2022 Telemedicine Endocrinology Arely Bond M.B., B.Ch. [address] [place] [address] [phone] (Wo rk) documented as of this encounter Visit Diagnoses Diagnosis Dysphoria Gender Adolescent Or Adult - P rimary documented in this encounter Additional Health Concerns Assessment Noted Time PHQ-9 Depression Total Score: 11 01/23/2022 8:08 AM CD T documented as of this encounter Care Teams Truck Repair Supervisor Relationship Specialty Start Date End Date Elsewhere, Pcp PCP - General Wood Cut Engraver 07/01/19 documented as of this encounter
--- OUTSIDE RECORDS SUMMARY | 2022-04-12 08:12 | XMS_ITS | Encounter Summary ---
:1995 Author Organization [facility] Address [address] [place] [address] Care Team Providers Name Role Phone Elsewhere, Pcp Primary Care Provider Unavailable Encounter Details Date Type Department Care Team Description 10/11/2020 Orders Only [facility] Sa nando Frye M.D. [address] [place], [place] [phone] (Wo rk) Social History Tobacco Use Types Packs/Day Years [...] 03/20/2022 relatives? How often do you attend restorationism or lutheran services? Never 03/20/2022 Do you belong to any clubs or organizations such as No 03/20/2022 restorationism groups, unions, fraternal or athletic groups, or [...] place to sleep or slept in a detention (including now)? Sex Assigned at Date Recorded Female 03/20/2022 7:54 AM CDT documented as of this encounter Plan of Treatment Upcoming Encounters Date Type Specialty Care Team Description 05/23/2022 Telemedicine Endocrinology Arely Bond M.B., B.Ch. [address] [place] [address] [phone] (Wo rk) documented as of this encounter Visit Diagnoses Not on filedocumented in this encounter Care Teams Auto Parts Delivery Driver Relationship Specialty Start Date End Date Elsewhere, Pcp PCP - General Director Of Counterintelligence 07/01/19 documented as of this encounter
--- OUTSIDE RECORDS SUMMARY | 2022-04-12 08:12 | XMS_ITS | Encounter Summary ---
:1995 Author Organization [facility] Address [address] [place] [address] Care Team Providers Name Role Phone Elsewhere, Pcp Primary Care Provider Unavailable Reason for Visit Reason Comments Abdominal Pain 25 year old male admits with concners of abdominal pain Encounter Details Date Type Department Care Team Description 07/15/2020 Emergency [facility] Byron Pena III, M.D. [id number] [id number] Abdominal Pain (Primary Dx); Department Sadaf, Gulshan Aponte, CDarioN.P. [address] [place] [phone] Pain Low Back Chronic [address] [place] [phone] Social History Tobacco Use Types Packs/Day Years [...] 03/20/2022 relatives? How often do you attend jain or episcopal services? Never 03/20/2022 Do you belong to any clubs or organizations such as No 03/20/2022 jain groups, unions, fraternal or athletic groups, or [...] place to sleep or slept in a halfway (including now)? Sex Assigned at Date Recorded Female 03/20/2022 7:54 AM CDT documented as of this encounter Last Filed Vital Signs Vital Sign Reading Time Taken Comments Blood Pressure 130/77 07/15/2020 7:45 PM TABLE KEEPER Pulse 112 07/15/2020 7:45 PM TABLE KEEPER Temperature 36.4 ??C (97.5 ??F) 07/15/2020 5:12 PM TABLE KEEPER Respiratory Rate 20 07/15/2020 6:02 PM TABLE KEEPER Oxygen Saturation 97% 07/15/2020 7:45 PM TABLE KEEPER Inhaled Oxygen Concentration - - Weight 76.9 kg (169 lb 8.5 oz) 07/15/2020 4:53 PM TABLE KEEPER Height - - Body Mass Index 29.1 12/01/2019 12:42 PM CDT documented in this encounter Discharge Instructions Discharge InstructionsGulshan Talavera APRN, C.N.P. - 07/15/2020 8:04 PM TABLE KEEPER I am reassured by the blood work and CT finding. Regarding your chronic back pain, I do recommend taking the oxycodone at home as well as follow-up with the Pain Clinic for further management. It is important you return to the ED if you develop fever, nausea vomiting that you cannot control, lethargy, worsening pain, weakness, loss of sensations of your buttocks, urinary incontinence or bowel incontinence, or any other concerns. E KEEPER AttachmentsThe following attachments cannot be sent through Care Everywhere. Chronic Back Pain (Kuwaiti)Abdominal Pain Adult (Kuwaiti)documented in this encounter Medications at Time of Discharge Medication Sig Dispensed Refills Start Date End Date atorvastatin (LIPITOR) Take 40 mg by mouth 0 40 mg tablet daily. celecoxib (CeleBREX) 200 Take by mouth. 0 mg capsule dicyclomine (BENTYL) 10 20 mg 4 (four) times 0 mg/5 mL solution a day before meals and bedtime. acetaminophen (TYLENOL) Take 650 mg by mouth. 0 0 03/15/2016 325 mg tablet albuterol (PROVENTIL Inhale 2 puffs. 0 12/24/2014 HFA,VENTOLIN HFA) 90 mcg/actuation inhaler bacitracin zinc 500 Apply topically. 0 08/10/2019 unit/gram ointment cholecalciferol (VITAMIN Take 1 tablet by 0 07/17 D3) 50 mcg (2,000 Unit) mouth daily. tablet diphenhydrAMINE Take 50 mg by mouth. 0 03/30/2013 (BENADRYL) 50 mg capsule ketorolac (TORADOL) 10 Take by mouth. 0 mg tablet [facility] Prescription Trazapam 15 mg i po 0 [...] 0 02/25/2019 (ZOFRAN-ODT) 4 mg disintegrating tablet PARoxetine (PAXIL) 20 mg Take 20 mg by mouth. 0 1 tablet pirbuterol acetate Inhale 2 puffs as 0 05/21/2011 (MAXAIR AUTOHALER INHL) needed. predniSONE (DELTASONE) Take 40 mg by mouth. 0 20 mg tablet valACYclovir (VALTREX) Take 1 tablet by 0 015 500 mg tablet mouth. lidocaine (LIDODERM) 5 % Place 1 patch on the 5 patch 0 0 07/15/2020 07/20/2020 skin daily for 5 days. Remove & discard patch within 12 hours or as directed by . gabapentin (NEURONTIN) Take 300 mg by mouth [...] of this encounter ED Notes Gulshan Talavera, GENO, C.N.P. - 07/15/2020 7:04 PM CST Care of patient transferred to [place] by Dr. Pena. Disposition pending CT result.. This is a patient who presents to the ED with complaint of lower back pain as well as abdominal painbelow the umbilical area. Patient reports he had a nerve stimulator removed this this past Fridaydue to the stimulator causing side effects and irritation. He reports initially after removal pain was relieved but then pain returned afterward. He has been endorsing nausea as well. Basic blood work done and was unremarkable at this time. Physical exam does reveal tenderness to thelumbar area on palpation. There is no erythema, warmth, or drainage to the lumbar area. Patient is afebrile in the ED. There is no white count elevation. He denies any numbness, tingling, or loss of sensations of the buttocks. He denies any leg weakness. Presence of +2 DTR reflex of the bilateral lower extremity. Denies any saddle anesthesia, urinary incontinence, or bowel incontinence. I do have lowsuspicion for any spinal cord etiology at this time, including epidural abscess, cauda equina syndrome, or myelitis at this time. Regarding his abdominal pain, he denies any pelvic pain so low suspicion for ovarian torsion at thistime. I did call the [facility] pain clinic and talked to the nurse to get more information. Talked to CASH Dotson, who states patient had a trial passage for a spinal cord nerve stimulator but did not pass and was subsequently removed on Friday. CT is unremarkable with no acute abdominal finding. Plan: At this time, the patient is stable for discharge home. The patient does still have oxycodone at home for pain control. Recommendation at this time is the patient follow-up with the Pain Clinic for further evaluation. The patient is advised on strict return precaution. He states understanding. VITAL SIGNS BP 130/77 Pulse (!) 112 Temp 36.4 ??C (Tympanic) Resp 20 Wt 76.9 kg SpO2 97% BMI 29.10 kg/m?? ED Course as of Jul 15 2003 Sat Jul 15, [id number] CASH Dotson of [facility] pain clinic returned call and states patient was prescribed keflex prophylactic prior to nerve stimulator procedure. 1938 C-Reactive Protein (CRP), P: <3.0 0 Sedimentation Rate 1940 No neuro deficits and with the normal inflammatory marker I do have low suspicion for spinal abscess at this time. C-Reactive Protein (CRP), P: <3.0 2001 No acute finding of the abdomen CT Abdomen Pelvis with IV Contrast Final Diagnoses: as of Jul 15 2003 Abdominal Pain Pain Low Back Chronic Gulshan Talavera APRN, C.N.P. 07/15/202003 E KEEPER Byron Pena III, M.D. - 07/15/2020 4:44 PM CST Images from the original note were not included. SUBJECTIVE CHIEF COMPLAINT/REASON FOR VISIT Abdominal Pain (25 year old male admits with concners of abdominal pain) HISTORY OF PRESENT ILLNESS History provided by: Patient, medical records and parent Abdominal Pain Pain location: LLQ Pain quality: aching and cramping Pain radiates to: Does not radiate Pain severity: Severe Onset quality: Sudden Timing: Constant Progression: Unchanged Chronicity: Recurrent Context comment: Recent surgical procedure. Relieved by: Nothing Worsened by: Nothing Ineffective treatments: None tried Associated symptoms: chills, constipation, diarrhea and nausea Associated symptoms: no chest pain, no cough, no fever, no shortness of breath, no sore throat and no vomiting Diarrhea: Quality: Watery Number of occurrences: 1-2 Duration: 4 days Timing: Constant Progression: Partially resolved Nausea: Severity: Moderate Timing: Constant Progression: Waxing and waning Risk factors: multiple surgeries and recent hospitalization REVIEW OF SYSTEMS Constitutional: Positive for chills and night sweats. Negative for fever. HENT: Negative for congestion and sore throat. Respiratory: Negative for cough, shortness of breath and wheezing. Cardiovascular: Negative for chest pain, palpitations and leg swelling. Gastrointestinal: Positive for abdominal pain, constipation, diarrhea and nausea. Negative for vomiting. Endocrine: Negative for polydipsia, polyphagia and polyuria. Genitourinary: Negative. Musculoskeletal: Positive for back pain. Skin: Negative for color change and wound. Allergic/Immunologic: Negative for environmental allergies, food allergies and immunocompromised state. Hematological: Negative for adenopathy. Does not bruise/bleed easily. Psychiatric/Behavioral: Positive for agitation and depression. OBJECTIVE Initial Vitals Temperature Pulse Rate Heart Rate Resp Rate Blood Pressure SpO2 07/15/20 1712 07/15/20 1712 -- 07/15/20 1712 07/15/20 1712 07/15/20 1712 36.4 ??C 106 20 129/89 98 % Pain Score 07/15/20 1653 10 - Worst possible pain PHYSICAL EXAMINATION Constitutional: Nursing note and vitals reviewed. HENT: Head: Normocephalic. Mouth/Throat: Oropharynx is clear and moist. Mucous membranes are moist. Eyes: Conjunctivae are normal. Pupils are equal, round, and reactive to light. Neck: Normal range of motion. Neck supple. Cardiovascular: Normal rate, regular rhythm, S1 normal, S2 normal and normal heart sounds. Pulses are strong and palpable. Capillary refill: takes less than 3 seconds, Pulmonary/Chest: Effort normal and breath sounds normal. There is normal air entry. Abdominal: Soft. Normal appearance and bowel sounds are normal. There is abdominal tenderness in theleft lower quadrant. There is no rigidity, no rebound, no guarding and no CVA tenderness. Musculoskeletal: Normal range of motion. Neurological: He is alert and oriented to person, place, and time. Skin: Skin is warm, dry and normal color. Graft old right wrist. Psychiatric: His affect is labile. ASSESSMENT/PLAN I reviewed previous medical records including documentation from previous visits, lab results and radiology images/report. Final Diagnoses: as of Jul 16 2016 Abdominal Pain Pain Low Back Chronic Care Handoff Row Name 07/15/20 1844 Care Handoff Type of Handoff Shift change handoff Provider's Name Talavera Byron Pena III, M.D. 07/16/202029 E KEEPER documented in this encounter Plan of Treatment Upcoming Encounters Date Type Specialty Care Team Description 05/23/2022 Telemedicine Endocrinology Arely Bond M.B., B.Ch. [address] [place] [address] [phone] (Wo rk) documented as of this encounter Procedures Procedure Name Priority Date/Time Associated Comments Diagnosis CT ABDOMEN PELVIS RAD - Semiurgent 07/15/2020 7:55 Res ults for WITH IV CONTRAST (Fast; most ED PM TABLE KEEPER this proc edure patients; some are in the inpatients) results section. URINALYSIS WITH STAT 07/15/2020 5:24 Results f or MICROSCOPIC PM TABLE KEEPER this procedure are in the results section. DRUG SCREEN URINE STAT 07/15/2020 5:23 Results for PM TABLE KEEPER this procedure are in the results section. CBC WITH STAT 07/15/2020 5:16 Results for DIFFERENTIAL, B PM TABLE KEEPER this procedu re are in the results section. C-REACTIVE PROTEIN STAT 07/15/2020 5:16 Result s for (CRP), S/P PM TABLE KEEPER this procedure are in the results section. COMPREHENSIVE STAT 07/15/2020 5:16 Results for METABOLIC PANEL, S/P PM TABLE KEEPER this pr ocedure are in the results section. SEDIMENTATION RATE, STAT 07/15/2020 5:15 Resul ts for B PM TABLE KEEPER this procedure are in the results section. documented in this encounter Results CT Abdomen Pelvis with IV Contrast (07/15/2020 7:55 PM TABLE KEEPER) Anatomical Region Laterality Modality Abdomen, Pelvis, Abdominal RST LOS, Abdominal ARZ LOS, N/A Computed Tomography Abdominal FLA LOS Specimen (Source) Anatomical Collection Method Collection Time Re ceived Time Location / / Volume Laterality 07/16/2020 8:07 AM TABLE KEEPER Impressions 07/16/2020 8:15 AM TABLE KEEPER 1. ??No acute findings within the abdomen or pelvis. Narrative 07/16/2020 8:15 AM TABLE KEEPER EXAM: CT ABDOMEN PELVIS WITH IV CONTRAST COMPARISON: December 01, 2019 FINDINGS: Limited lower thorax: Unremark able. Abdomen/pelvis: The liver, spleen, adren als, kidneys, and pancreas are normal in appearance. The large and small bowel lo ops are normal in appearance with a normal appendix. Small bowel loops are u nremarkable. The portal veins are patent. Fat-containing periumbilical her mike. Postoperative changes neophallus and testicle prostheses. Hysterectomy. Bones: No acute osseous abnormality. vRad: ??Findings concordant with prelimrachele kurtz vRad report. Procedure Note Skip Cm M.D. - 07/16/2020Forma tting of this note might be different from the original. EXAM: CT ABDOMEN PELVIS WITH IV CONTRAST COMPARISON: December 01, 2019 FINDINGS: Limited lower thorax: Unremark able. Abdomen/pelvis: The liver, spleen, adren als, kidneys, and pancreas are normal in appearance. The large and small bowel lo ops are normal in appearance with a normal appendix. Small bowel loops are u nremarkable. The portal veins are patent. Fat-containing periumbilical her mike. Postoperative changes neophallus and testicle prostheses. Hysterectomy. Bones: No acute osseous abnormality. vRad: Findings concordant with prelimroxanne brooks vRad report. IMPRESSION: 1. No acute findings within the abdomen or pelvis. Gaffney N Talavera C.N.P. IMG CT PROCEDURES (ABNORMAL) Urinalysis with Microscopic: Urine, Midstream (07/15/2020 5:24 PM TABLE KEEPER) athologist Signature Source Midstream 07/15/2020 CNFL 5:31 PM TABLE KEEPER Clarity Clear Clear 07/15/2020 CNFL 5:34 PM TABLE KEEPER Color Yellow 07/15/2020 CNFL 5:34 PM TABLE KEEPER Comment: ----REFERENCE VALUE---- Colorless Yellow Debby Blood Negative Negative 07/15/2020 5:34 PM TABLE KEEPER CNFL Nitrite Negative Negative 07/15/2020 5:34 PM TABLE KEEPER CNFL Leukocyte Esterase Negative Negative 07/15/2020 5:34 PM CS T CNFL Protein Negative mg/dL 07/15/2020 5:34 PM TABLE KEEPER CNFL Comment: ----REFERENCE VALUE---- Negative Trace Glucose Negative Negative mg/dL 07/15/2020 5:34 PM TABLE KEEPER CN FL Ketones, QI(U) 15 (A) Negative mg/dL 07/15/2020 5:[address] [facility] Bilirubin Negative Negative 07/15/2020 5:34 PM TABLE KEEPER CNFL pH 6.0 5.0 - 8.0 07/15/2020 5:34 PM TABLE KEEPER CNFL Specific Supai 1.020 1.001 - 1.035 07/15/2020 5:34 PM TABLE KEEPER CNFL Urobilinogen 0.2 0.2 - 1.0 mg/dL 07/15/2020 5:34 PM CS T CNFL White Blood Cells Occ-3 /hpf 07/15/2020 5:34 PM TABLE KEEPER CNFL Comment: ----REFERENCE VALUE---- Males: 0-3 Females: 0-10 Unknown: 0-10 Red Blood Cells Occ-2 0 - 2 /hpf 07/15/2020 5:34 PM TABLE KEEPER CNFL Mucus Present /hpf 07/15/2020 5:34 PM TABLE KEEPER CNFL Squamous Cells Occ-3 /hpf 07/15/2020 5:34 PM TABLE KEEPER CN FL Specimen Anatomical Collection Method Collection Time Receive d Time (Source) Location / / Volume Laterality Urine (Urine, 07/15/2020 5:24 PM 07/15/19 5:24 Midstream) TABLE KEEPER PM TABLE KEEPER Byron Pena III, M.D. LAB URINE ORDERABLES Performing Organization Address City/State/ZIP Code Phon e Number [address] [address] [place] [address] System [address] (ABNORMAL) Drug Screen Urine (07/15/2020 5:23 PM TABLE KEEPER) athologist Signature Amphetamines, Negative Negative 07/15/2020 CNFL U 5:47 PM TABLE KEEPER Comment: ----ADDITIONAL INFORMATION---- Blood Tester's Cutoff: 500 ng/mL Barbiturates, U Negative Negative 07/15/2020 5:47 PM TABLE KEEPER C NFL Comment: ----ADDITIONAL INFORMATION---- Blood Tester's Cutoff: 200 ng/mL Benzodiazepines, U Negative Negative 07/15/2020 5:47 PM CS T CNFL Comment: ----ADDITIONAL INFORMATION---- Blood Tester's Cutoff: 150 ng/mL Buprenorphine, U Negative Negative 07/15/2020 5:47 PM TABLE KEEPER CNFL Comment: ----ADDITIONAL INFORMATION---- Blood Tester's Cutoff: 10 ng/mL Cocaine, U Negative Negative 07/15/2020 5:47 PM TABLE KEEPER CNFL Comment: ----ADDITIONAL INFORMATION---- Blood Tester's Cutoff: 150 ng/mL Methadone, U Negative Negative 07/15/2020 5:47 PM TABLE KEEPER CNFL Comment: ----ADDITIONAL INFORMATION---- Blood Tester's Cutoff: 200 ng/mL Methamphetamines, U Negative Negative 07/15/2020 5:[address] [facility] Comment: ----ADDITIONAL INFORMATION---- Blood Tester's Cutoff: 500 ng/mL Opiates, U Negative Negative 07/15/2020 5:47 PM TABLE KEEPER CNFL Comment: ----ADDITIONAL INFORMATION---- Blood Tester's Cutoff: 100 ng/mL Oxycodone, U Negative Negative 07/15/2020 5:47 PM TABLE KEEPER CNFL Comment: ----ADDITIONAL INFORMATION---- Blood Tester's Cutoff: 100 ng/mL Phencyclidine, U Negative Negative 07/15/2020 5:47 PM TABLE KEEPER CNFL Comment: ----ADDITIONAL INFORMATION---- Blood Tester's Cutoff: 25 ng/mL Propoxyphene, U Negative Negative 07/15/2020 5:47 PM TABLE KEEPER C NFL Comment: ----ADDITIONAL INFORMATION---- Blood Tester's Cutoff: 300 ng/mL Tetrahydrocannabinol, U Unconfirmed Positive Negative 07/15 5:47 PM CNFL (A) TABLE KEEPER Comment: ----ADDITIONAL INFORMATION---- Blood Tester's Cutoff: 50 ng/mL Tricyclic Antidepressants, U Negative Negative 07/15/2020 5:47 PM TABLE KEEPER CNFL Comment: ----ADDITIONAL INFORMATION---- Blood Tester's Cutoff: 300 ng/mL THE ABOVE DRUG SCREEN PANEL IS FOR MED ICA PURPOSES ONLY Specimen Anatomical Collection Method Collection Time Receive d Time (Source) Location / / Volume Laterality Urine (Urine, 07/15/2020 5:23 PM 07/15/19 21 5:23 Midstream) TABLE KEEPER PM TABLE KEEPER Byron Pena III, M.D. LAB URINE ORDERABLES Performing Organization Address [facility] Phon e Number [address] [address] [place] [address] CRP (C-Reactive Protein) (07/15/2020 5:16 PM TABLE KEEPER) athologist Signature C-Reactive <3.0 <=8.0 mg/L 07/15/2020 CNFL Protein (CRP), 7:38 PM TABLE KEEPER P Specimen Anatomical Collection Method Collection Time Receive d Time (Source) Location / / Volume Laterality Blood (Blood, 07/15/2020 5:16 PM 07/15/19 21 7:26 Venous) TABLE KEEPER PM TABLE KEEPER Gulshan Skaggs.N.PDario LAB BLOOD ADD-ON Performing Organization Address [facility] Phon e Number [address] [address] [place] [address] System [address] (ABNORMAL) Comprehensive Metabolic Panel (07/15/2020 5:16 PM TABLE KEEPER) athologist Signature Potassium, P 3.8 3.6 - 5.2 07/15/2020 CNFL mmol/L 6:16 PM TABLE KEEPER Sodium, P 136 135 - 145 07/15/2020 CNFL mmol/L 6:16 PM TABLE KEEPER Chloride, P 101 98 - 107 07/15/2020 CNFL mmol/L 6:16 PM TABLE KEEPER Bicarbonate, P 20 (L) 22 - 29 07/15/2020 CNFL mmol/L 6:17 PM TABLE KEEPER Anion Gap, P 15 7 - 15 07/15/2020 CNFL 6:16 PM TABLE KEEPER BUN (Blood Urea 13 8 - 24 07/15/2020 CNFL Nitrogen), P mg/dL 6:17 PM TABLE KEEPER Creatinine 1.13 0.74 - 07/15/2020 CNFL 1.35 mg/dL 6:17 PM TABLE KEEPER eGFR-Black/Afri >90 >=60 07/15/2020 CNFL can [place]an mL/min/BSA 6:17 PM TABLE KEEPER Comment: ----ADDITIONAL INFORMATION---- Estimated GFR calculated using the 2009 CKD_EPI creatinine equation. eGFR Non-Black/ 89 >=60 mL/min/BSA 6:17 PM TABLE KEEPER CNFL Comment: ----ADDITIONAL INFORMATION---- Estimated GFR calculated using the 2009 CKD_EPI creatinine equation. Calcium, Total, P 10.4 (H) 8.6 - 10.0 mg/dL 07/15/2020 6:17 PM TABLE KEEPER CNFL Glucose, P 124 70 - 140 mg/dL 07/15/2020 6:17 PM TABLE KEEPER C NFL Protein, Total, P 8.5 (H) 6.3 - 7.9 g/dL 07/15/2020 6:17 P M TABLE KEEPER CNFL Albumin, P 5.2 (H) 3.5 - 5.0 g/dL 07/15/2020 6:17 PM TABLE KEEPER C NFL Aspartate Aminotransferase 33 8 - 48 U/L 07/15/2020 6 :17 PM TABLE KEEPER CNFL (AST), P Alkaline Phosphatase, P 53 40 - 129 U/L 07/15/2020 6: 17 PM TABLE KEEPER CNFL Alanine Aminotransferase 44 7 - 55 U/L 07/15/2020 6:1 7 PM TABLE KEEPER CNFL (ALT), P Bilirubin, Total, P 1.0 <=1.2 mg/dL 07/15/2020 6:17 PM TABLE KEEPER CNFL Specimen Anatomical Collection Method Collection Time Receive d Time (Source) Location / / Volume Laterality Blood (Blood, 07/15/2020 5:16 PM 07/15/19 5:20 Venous) TABLE KEEPER PM TABLE KEEPER Byron Pena III, M.D. LAB BLOOD ADD-ON Performing Organization Address City/State/ZIP Code Phon e Number [facility]- [address] [place] [id number] [place] [address] System in [address] (ABNORMAL) CBC with Differential, Blood (07/15/2020 5:16 PM TABLE KEEPER) [facility] Method Time Signature Hemoglobin 17.2 (H) 13.2 - 07/15/2020 CNFL 16.6 g/dL 5:25 PM TABLE KEEPER Hematocrit 49.2 (H) 38.3 - 07/15/2020 CNFL 48.6 % 5:25 PM TABLE KEEPER Erythrocytes 5.57 4.35 - 07/15/2020 CNFL 5.65 5:25 PM TABLE KEEPER x10(12)/L MCV 88.3 78.2 - 07/15/2020 CNFL 97.9 fL 5:25 PM TABLE KEEPER RBC Distrib Width 12.2 11.8 - 07/15/2020 CNFL 14.5 % 5:25 PM TABLE KEEPER Platelet Count 316 135 - 317 07/15/2020 CNFL x10(9)/L 5:25 PM TABLE KEEPER Leukocytes 8.8 3.4 - 9.6 07/15/2020 CNFL x10(9)/L 5:25 PM TABLE KEEPER Neutrophils 5.98 1.56 - 07/15/2020 CNFL 6.45 5:25 PM TABLE KEEPER x10(9)/L Lymphocytes 1.98 0.95 - 07/15/2020 CNFL 3.07 5:25 PM TABLE KEEPER x10(9)/L Monocytes 0.79 0.26 - 07/15/2020 CNFL 0.81 5:25 PM TABLE KEEPER x10(9)/L Eosinophils 0.00 (L) 0.03 - 07/15/2020 CNFL 0.48 5:25 PM TABLE KEEPER x10(9)/L Basophils 0.03 0.01 - 07/15/2020 CNFL 0.08 5:25 PM TABLE KEEPER x10(9)/L Specimen Anatomical Collection Method Collection Time Receive d Time (Source) Location / / Volume Laterality Blood (Blood, 07/15/2020 5:16 PM 07/15/19 21 5:21 Venous) TABLE KEEPER PM TABLE KEEPER Byron Pena III, M.D. LAB BLOOD ADD-ON Performing Organization Address City/State/ZIP Code Phon e Number [address] [phone] [place] [address] System in [address] Sedimentation Rate (07/15/2020 5:15 PM TABLE KEEPER) Analysis Performed At Patho logist Time Signature Sedimentation 3 0 - 22 07/15/2020 CNFL Rate, B mm/1 h 8:04 PM TABLE KEEPER Specimen Anatomical Collection Method Collection Time Receive d Time (Source) Location / / Volume Laterality Blood (Blood, 07/15/2020 5:15 PM 07/15/19 7:25 Venous) TABLE KEEPER PM TABLE KEEPER Gulshan Talavera C.N.PDario LAB BLOOD ADD-ON Performing Organization Address [facility] Phon e Number [address] [address] [place] [address] System in [address] documented in this encounter Visit Diagnoses Diagnosis Abdominal Pain - Primary Pain Low Back Chronic documented in this encounter Administered Medications Inactive Administered Medications - up to 3 most recent administrations Medication Order MAR Action Action Date Dose Rate Site iohexoL (OMNIPAQUE) 300 mg iodine/mL luis fernando ution - ADS Override Pull Starting on 07/15/20 at 1907, For 1 dose, Created b y cabinet override iohexoL 300 mg iodine/mL solution 114 mL Given 07/15/2020 7:34 P M TABLE KEEPER 114 mL (OMNIPAQUE) 114 mL, intravenous, Once in imaging, contrast, Starting on 07/15/20 at 1904, For 1 dose, If administered oral then dilute in 900 mL water lidocaine 5 % 1 patch Medication Applied 07/15/2020 7:00 PM TABLE KEEPER 1 pat ch Back (LIDODERM) 1 patch, transdermal, Administer over 12 Hours, Once, On 07/15/20 at 1856, For 1 dose, Remove after 12 hours. oxyCODONE IR tablet 5 mg (ROXICODONE) Given 07/15/2020 8:02 PM TABLE KEEPER 5 mg 5 mg, oral, Once, On 07/15/20 at 2000, For 1 dose sodium chloride 0.9 % flush 78 mL Given 07/15/2020 7:35 PM TABLE KEEPER 78 mL 78 mL, intravenous, Once in imaging, line care, Starting on 07/15/20 at 1904, For 1 dose sodium chloride 0.9 % injection 10 mL 10 mL, intravenous, As needed, line care, Starting on 07/15/20 at 1654, Peripheral Intravenous Catheter and Rapid Infusion Cat heter, prior to blood sampling, post blood transfusion or post blood samplin g sodium chloride 0.9 % injection 10 mL Given 07/15/2020 7:34 PM TABLE KEEPER 10 mL 10 mL, intravenous, Once in imaging, line care, Starting on 07/15/20 at 1904, For 1 dose sodium chloride 0.9 % injection 3 mL 3 mL, intravenous, As needed, line care, Starting on 07/15/20 at 1654, Prior to and following infusion and between multi ple consecutive infusions: sodium chloride 0.9 % injection sodium chloride 0.9 % injection 3 mL 3 mL, intravenous, Every 12 hours scheduled, First dos e on 07/15/20 at 2100, Peripheral Intravenous Catheter and Rapi d Infusion Catheter, when no infusion to maintain patency documented in this encounter Active and Recently Administered Medications Times are shown in TABLE KEEPER. Scheduled Medication Order 07/13/2020 07/14/2020 07/15/2020 lidocaine 5 % 1 patch (LIDODERM) 190 (Medication Applied - Provider: Darcy Pizarro R.N.)2016 (Due: Medication Removed - Provider: Discharge Provider, Automatic - Comment: Time automatically adjusted from order being discontinued) 1 patch, transdermal, Administer over 12 Hours, Once, On 07/15/20 at 1856, For 1 dose, Remove after 12 hours. morphine injection 4 mg 2006 (No t Given - Provider: Sammi Wilks R.N. - Reason: Other) 4 mg, intravenous, Once, 07/15/20 at 1947, For 1 dose oxyCODONE IR tablet 5 mg (ROXICODONE) (COMPLETED) 2001 (Given - Provider: Sammi Wilks R.N.) 5 mg, oral, Once, On 07/15/20 at 2001, For 1 dose sodium chloride 0.9 % injection 3 mL 3 mL, intravenous, Every 12 hours schedu led, First dose on 07/15/20 at 2100, Peripheral Intravenous Catheter and Rapid Infusion Catheter, when no infusion to maintain patency PRN Medication Order 07/13/2020 07/14/2020 07/15/2020 iohexoL 300 mg iodine/mL solution 114 mL (OMNIPAQUE) (COMPLETED) 1933 (Given - Provider: Sonu Liu(R)(CT), R.TDario(R) - Comment: [id number]) 114 mL, intravenous, Once in imaging, co ntrast, Starting on 07/15/20 at 1904, For 1 dose, If administered oral then dilute in 900 mL water sodium chloride 0.9 % flush 78 mL (COMPLETED) 1934 (Given - Provider: Sonu Liu(R)(CT), R.TDario(R)) 78 mL, intravenous, Once in imaging, janel e care, Starting on 07/15/20 at 1904, For 1 dose sodium chloride 0.9 % injection 10 mL 10 mL, intravenous, As needed, line care , Starting on 07/15/20 at 1654, Peripheral Intravenous Catheter and Rapid Infusion Catheter, prior to blood sampling, post blood transfusion or post blood sampling sodium chloride 0.9 % injection 10 mL (COMPLETED) 1933 (Given - Provider: Sonu Liu(Dom)(CT), R.TDario(R)) 10 mL, intravenous, Once in imaging, janel e care, Starting on 07/15/20 at 1904, For 1 dose sodium chloride 0.9 % injection 3 mL 3 mL, intravenous, As needed, line care, Starting on 07/15/20 at 1654, Prior to and following infusion and between multiple consecutive infusions: sodium chloride 0.9 % injection documented in this encounter Care Teams Credit Front Office Developer Relationship Specialty Start Date End Date Elsewhere, Pcp PCP - General Tiller Man 07/01/19 documented as of this encounter
--- OUTSIDE RECORDS SUMMARY | 2022-04-12 08:12 | XMS_ITS | Encounter Summary ---
:1995 Author Organization [facility] Address [address] [place] [address] Care Team Providers Name Role Phone Elsewhere, Pcp Primary Care Provider Unavailable Reason for Visit Reason Comments Previsit Preparation [facility] Appointment Request (Routine) - Authorized Specialty Diagnoses / Procedures Referred By Contact Refer red To Contact Endocrinology Diagnoses Dysphoria Gender Adolescent Or Adult Referral ID Status Reason Start Date Expiration Date Visits V isits Requested Authorized [id number] Authorized 10/29/2021 10/29/2022 4 4 Encounter Details Date Type Department Care Team Description 12/31/2021 Clinical Communication Division of Previ sit Preparation [facility] [place], [place] [address] [place] [address] Social History Tobacco Use Types Packs/Day Years [...] 03/20/2022 relatives? How often do you attend yazidi or gnosticism services? Never 03/20/2022 Do you belong to any clubs or organizations such as No 03/20/2022 yazidi groups, unions, fraternal or athletic groups, or [...] place to sleep or slept in a snf (including now)? Sex Assigned at Date Recorded Female 03/20/2022 7:54 AM CDT documented as of this encounter Miscellaneous Notes Telephone Encounter - Nadja Jaramillo R.N., [place] - 12/31/2021 9:04 AM CDT Patient contacted for nurse previsit screening prior to [facility]. Patient did not answer and message was left to reschedule this screening with endocrinology appointment coordinators. Patient advised that if they do not reach out to us in thenext 7 days, remainder of [facility] appointments will be cancelled. documented in this encounter Plan of Treatment Upcoming Encounters Date Type Specialty Care Team Description 05/23/2022 Telemedicine Endocrinology Arely Bond M.B., B.Ch. [address] [place] [address] [phone] (Wo rk) documented as of this encounter Visit Diagnoses Not on filedocumented in this encounter Care Teams Commodity Analyst Relationship Specialty Start Date End Date Elsewhere, Pcp PCP - General Tube Builder 07/01/19 documented as of this encounter
--- OUTSIDE RECORDS SUMMARY | 2022-04-12 08:12 | XMS_ITS | Clinical Summary ---
:1995 Author Organization [facility] Address [address] [place] [address] Care Team Providers Name Role Phone Elsewhere, Pcp Primary Care Provider Unavailable Source Comments Patient records contain information from all sites at [facility]. For routine questions regarding patient records, call [phone] during business hours, M-F 8:00 AM - 5:00 PM Central Time. Record requests for emergency care only can be directed to [phone] at any time.[facility] Allergies No known active allergies Medications Medication Sig Dispensed Refills Start End Status Date Date acetaminophen Take 650 mg by 0 A ctive (TYLENOL) 325 mg mouth. 6 tablet albuterol Inhale 2 puffs. 0 Acti ve (PROVENTIL 5 HFA,VENTOLIN HFA) 90 mcg/actuation inhaler Misc Prescription Trazapam 15 mg i 0 Active (Allergy po daily for 6 Immunotherapy) sleep montelukast Take 10 mg by 0 Acti ve (SINGULAIR) 10 mg mouth. tablet PARoxetine (PAXIL) Take 20 mg by 0 Active 20 mg tablet mouth. 7 valACYclovir Take 1 tablet by 0 Active (VALTREX) 500 mg mouth. 5 tablet pirbuterol acetate Inhale 2 puffs as 0 Active (MAXAIR AUTOHALER needed. 1 INHL) ondansetron Take 4 mg by 0 Activ e (ZOFRAN) 4 mg mouth every 8 tablet (eight) hours as needed for nausea or vomiting. ketorolac (TORADOL) Take by mouth. 0 Active 10 mg tablet dicyclomine 20 mg 4 (four) 0 Act fish (BENTYL) 10 mg/5 mL times a day solution before meals and bedtime. celecoxib Take by mouth. 0 Activ e (CeleBREX) 200 mg capsule atorvastatin Take 40 mg by 0 Act fish (LIPITOR) 40 mg mouth daily. tablet bacitracin zinc 500 Apply topically. 0 Active unit/gram ointment 0 busPIRone (BUSPAR) Take 30 mg by 0 Active 30 mg tablet mouth 2 (two) 2 times a day. cholecalciferol Take 1 tablet by 0 Active (VITAMIN D3) 50 mcg mouth daily. 9 (2,000 Unit) tablet cyclobenzaprine take 1-2 tablets 0 Active (FLEXERIL) 5 mg by oral route 1 023 tablet daily as needed for back pain cyclobenzaprine Take 10 mg by 0 Active (FLEXERIL) 10 mg mouth 3 (three) 2 tablet times a day as needed. desvenlafaxine daily. 0 Activ e (KHEDEZLA) 50 mg 24 hr tablet desvenlafaxine Take 50 mg by 0 A ctive (PRISTIQ) 50 mg 24 mouth daily. 2 hr tablet desvenlafaxine TAKE 1 TAB EACH 0 Active (PRISTIQ) 25 mg 24 DAY WITH A 50 MG 2 hr tablet TAB amphetamine-dextroa 0 Active mphetamine 1 (ADDERALL XR) 20 mg 24 hr capsule diphenhydrAMINE Take 50 mg by 0 Active (BENADRYL) 50 mg mouth. 3 capsule doxepin (SINEquan) TAKE 2 CAPSULES 0 Active 25 mg capsule (50 MG) BY MOUTH 2 DAILY AT BEDTIME hydrOXYzine 0 Active (VISTARIL) 50 mg 1 capsule lisinopriL Take 10 mg by 0 Activ e (PRINIVIL,ZESTRIL) mouth daily. 2 10 mg tablet lisinopriL Take 20 mg by 0 Activ e (PRINIVIL,ZESTRIL) mouth daily. 2 20 mg tablet meloxicam (MOBIC) Take 7.5 mg by 0 Active 7.5 mg tablet mouth daily. 2 methylphenidate HCl TAKE 2 TABLETS 0 Active (RITALIN) 10 mg (20 MG) BY MOUTH 2 tablet 1 TIME PER DAY ON EMPTY STOMACH metoclopramide TAKE 1 TABLET BY 0 Active (REGLAN) 5 mg MOUTH THREE TIMES 2 tablet DAILY NEEDED FOR NAUSEA AND VOMITING. naproxen (NAPROSYN) Take 250 mg by 0 Active 250 mg tablet mouth. 3 BD Regular Bevel USE ONCE WEEKLY 0 Active [place] 27 gauge x FOR ADMINISTERING 2 1/2 needle HORMONE Monoject Hypodermic USE TO DRAW UP 0 Active Polypropyl 18 gauge HORMONES ONCE 2 x 1 needle WEEKLY nortriptyline Take 50 mg by 0 Ac tive (PAMELOR) 25 mg mouth daily. 2 capsule omeprazole daily. 0 Active (PriLOSEC) [address] capsule ondansetron ODT 4 mg. 0 Acti ve (ZOFRAN-ODT) 4 mg 9 disintegrating tablet OXcarbazepine TAKE 1 TABLET BY 0 Active (TRILEPTAL) 150 mg MOUTH IN THE 2 tablet MORNING AND 2 TABLETS AT BEDTIME. pantoprazole 0 Active (PROTONIX) 20 mg EC 1 tablet predniSONE Take 40 mg by 0 Activ e (DELTASONE) 20 mg mouth. 7 tablet pregabalin (LYRICA) Take 300 mg by 0 Active 300 mg capsule mouth 2 (two) 2 times a day. rosuvastatin Take 20 mg by 0 Act fish (CRESTOR) 20 mg mouth daily. 2 tablet solifenacin daily. 0 Active (VESICARE) 5 mg tablet sulfamethoxazole-tr Take 1 tablet by 0 Active imethoprim (BACTRIM mouth 2 (two) 1 DS) 800-160 mg per times a day. tablet BD Tuberculin USE ONCE WEEKLY 0 Active Slip-Tip 1 mL TO DRAW UP 2 syringe HORMONES testosterone Inject 60 mg 0 Acti ve cypionate intramuscularly. 2 (DEPO-TESTOSTERONE) 200 mg/mL injection predniSONE Take 1 tablet (10 50 tablet 1 A ctive (DELTASONE) 10 mg mg total) by 2 tablet mouth daily. nicotine (NICODERM Place 1 patch on 56 patch 0 Active CQ) 7 mg/24 hr the skin daily. 2 patchIndications: Nicotine Dependence Cigarettes Misc Prescription Misc Prescription 0 10/15 Discontinued (Allergy See Instructions, 6 022 Immunotherapy) testoterone--80 mg IM per week--(has been taking past 8 months) topiramate Take 1 tablet by 0 Di scontinued (TOPAMAX) 25 mg mouth daily. 6 022 ( Therapy tablet completed) traMADol (ULTRAM) Take 1 tablet (50 20 tablet 0 10/15 Discontinued 50 mg tablet mg total) by 8 022 (The rapy mouth every 4 comple nicholas) (four) hours as needed for pain. gabapentin Take 300 mg by 0 Disc ontinued (NEURONTIN) 300 mg mouth at bedtime. 8 022 (Therapy capsule completed) HYDROcodone-acetami hydrocodone 5 0 Discontinued nophen (NORCO) mg-acetaminophen 0 022 5-325 mg per tablet 325 mg tablet ibuprofen Take 400 mg by 0 Disco ntinued (ADVIL,MOTRIN) 400 mouth. 0 022 mg tablet lithium carbonate Take 300 mg by 0 Discontinued 300 mg tablet mouth. 022 traZODone (DESYREL) Take 1 tablet by 0 10/15 Discontinued 100 mg tablet mouth at bedtime. 5 022 Active Problems Problem Noted Date Autistic Disorder 01/04/2016 Gender Identity Disorder Unspecified 03/24/2015 Herpesviral Infection Unspecified 02/08/2015 Bipolar Disorder 02/08/2015 Overview: Formatting of this note might be differe nt from the original. Misdiagnosis per patient Encounters Date Type Specialty Care Team Description 03/20/2022 Hospital Encounter Laboratory Medicine Ronda, Kenia Gender Arely Alegre, Adolescent Or M.B., B.Ch. Adult 03/20/2022 Nurse Only Endocrinology Nadja Jaramillo, R.N., [facility] 03/20/2022 Comprehensive Visit Endocrinology Ronda, Dysph oria Gender Arely Alegre, Adolescent Or Thomas Liriano. Adult (Primary Dx) 03/20/2022 Clinical Endocrinology Nadja Jaramillo, Follow-up ([facility]) Communication R.N., [facility] 01/23/2022 Comprehensive Visit Endocrinology Gregg, Dysphor ia Lionel Barlow Jr., Adolescent Or Ph.D., L.P. Adult (Primary Dx) from Last 3 Months Family History Medical History Relation Name Comments Diabetes Father Pulmonary embolism Mother Relation Name Status Comments Father Mother Social History Tobacco Use Types Packs/Day Years [...] 03/20/2022 relatives? How often do you attend religious or congregation services? Never 03/20/2022 Do you belong to any clubs or organizations such as No 03/20/2022 religious groups, unions, fraternal or athletic groups, or [...] place to sleep or slept in a custodial (including now)? Education Answer Date Recorded What is the highest level of school you have completed or 12 th grade 03/20/2022 the highest degree you have received? Sex Assigned at Date Recorded Female 03/20/2022 7:54 AM CDT Last Filed Vital Signs Vital Sign Reading Time Taken Comments Blood Pressure 119/81 03/20/2022 8:06 AM CDT Pulse 84 03/20/2022 8:06 AM CDT Temperature 37.5 ??C (99.5 ??F) 08/12/2021 2:20 AM SOFTWARE QUALITY SPECIALIST Respiratory Rate 16 08/12/2021 2:20 AM SOFTWARE QUALITY SPECIALIST Oxygen Saturation 98% 08/12/2021 2:20 AM SOFTWARE QUALITY SPECIALIST Inhaled Oxygen Concentration - - Weight 101 kg (221 lb 12.5 oz) 03/20/2022 8:06 AM CDT Height 166.7 cm (5' 5.63) 03/20/2022 8:06 AM CDT Body Mass Index 36.2 03/20/2022 8:06 AM CDT Plan of Treatment Upcoming Encounters Date Type Specialty Care Team Description 05/23/2022 Telemedicine Endocrinology Arely Bond M.B., B.Ch. [address] [place] [address] [phone] (Wo rk) Health Maintenance Due Date Last Done Comments HIV Screening 1995 Hepatitis C Screening 1995 Hepatitis A Vaccines (1 of 2 - 1995 Risk 2-dose series) Influenza Vaccine (#1) 2022 06/13/2021, 04/13/2010, 06/29/2009 Pneumococcal vaccine (0-64 years) 06/13/2022 06/13/2021 (2 - PCV) Creatinine Level 03/20/2023 03/20/2022, 07/16/2020, 07/15/2020, Additional history exists Potassium Level 03/20/2023 03/20/2022, 07/16/2020, 07/15/2020, Additional history exists Sodium Level 03/20/2023 03/20/2022, 07/16/2020, 07/15/2020, Additional history exists DTaP,Tdap,and Td Vaccines (7 - Td 03/23/2025 03/23/2015, , or Tdap) 08/26/1995, Additional history exists Hepatitis B Vaccines Completed 03/20/2020, 03/26/2012, 1995 Depression Screening (Annual Completed 01/23/2022 PHQ-2) COVID-19 Vaccine Completed 04/03/2022, 03/13/2022, 06/05/2021, Additional history exists Procedures Procedure Name Priority Date/Time Associated Comments Diagnosis TESTOSTERONE, TOT AND Routine 03/20/2022 9:54 AM Dysphoria Gen josh Results for this FR, S CDT Adolescent Or Adult procedur e are in the results section. LIPID PANEL, S Routine 03/20/2022 9:54 AM [...] Adult procedure are in the results section. CBC WITHOUT Routine 03/20/2022 9:54 AM Dysphoria Gender Resul ts for this DIFFERENTIAL, B CDT Adolescent Or Adult proce dure are in the results section. from Last 3 Months Results (ABNORMAL) Lipid Panel (03/20/2022 9:54 AM CDT) [...] Organization Address City/State/ZIP Code Phon e Number [facility] - [address] [place], [place] [address] [facility] [place] [address] [facility] 200 [facility] CBC without Differential (03/20/2022 9:54 AM [...] B.Ch. LAB BLOOD ADD-ON Performing Organization Address City/[facility] Phon e Number [facility] - [address] [place], [place] [address] [place] [address] [facility] [address] Testosterone, Total and Free (03/20/2022 9:54 AM CDT) athologist Signature Testosterone, 15.7 5.05 - 19.8 03/29/2022 [facility] Free, S ng/dL 1:27 PM CDT Comment: ----ADDITIONAL INFORMATION---- This test was developed and its performa nce characteristics determined by [facility] in a manner consistent with CLIA requirements. This test has not been cleared or approved by the [place] A[place] d and Drug Administration. Testosterone, Total by Mass 337 240 - 950 ng/dL 2021 3:05 PM CDT [facility] Spectrometry, Serum Comment: ----ADDITIONAL INFORMATION---- Testing performed by Liquid Chromatograp hy-Tandem Mass Spectrometry (LC-MS/MS). This test was developed and its performa nce characteristics determined by [facility] in a manner consistent with CLIA requirements. This test has not been cleared or approved by the [place]. A[place] d and Drug Administration. Specimen Anatomical Collection Method Collection Time Receive d Time (Source) Location / / Volume Laterality Blood (Blood, 03/20/2022 9:54 AM 03/21/20 6:41 Venous) CDT AM CDT Arely Liriano, B.Ch. LAB BLOOD NON ADD -ON Performing Organization Address City/State/[facility] Code Phon e Number [facility] [address] [place], [place] [address] [facility] [place], [place] [id number] [place] [address] [place] (ABNORMAL) Hemoglobin A1c (03/20/2022 9:54 AM CDT) P athologist Signature Hemoglobin A1c, 6.3 (H) 4.0 [...] Organization Address City/State/ZIP Code Phon e Number [facility] - [address] [place] [address] [facility] [place] [address] [facility] [address] [facility] (ABNORMAL) Comprehensive Metabolic Panel (03/20/2022 9:54 AM [...] Organization Address City/State/ZIP Code Phon e Number [facility] - [address] [place], [place] [address] [facility] [place] [place] [address] [facility] [address] from Last 3 Months Insurance Payer Benefit Plan / Subscriber ID Effective Phone Address T ype Group Dates [place] [employer] [id number] 2020-Pres [address] Medicaid HMO HEALTH ID CARE ent [address] [place] [address] Care Teams Reading Efficiency Course Director Relationship Specialty Start Date End Date Elsewhere, Pcp PCP - General Supervisor Winding Department 07/01/19
--- OUTSIDE RECORDS SUMMARY | 2022-04-12 08:13 | XMS_ITS | Encounter Summary ---
:1995 Author Organization [facility] Address [address] [place] [address] Care Team Providers Name Role Phone Elsewhere, Pcp Primary Care Provider Unavailable Reason for Visit Reason Comments Abdominal Pain 24 year old male admits with complaints of abdominal pain x1 week. Pt has been scene in the [facility] ague this week and was dis Encounter Details Date Type Department Care Team Description 12/01/2019 - Emergency [place] Mario Mares Abdominal Pain (Primary Dx); 12/02/2019 Emergency Department Christen Britton M.D. [address] [place] [address] [phone] Social History Tobacco Use Types Packs/Day Years [...] 03/20/2022 relatives? How often do you attend advent or congregational services? Never 03/20/2022 Do you belong to any clubs or organizations such as No 03/20/2022 advent groups, unions, fraternal or athletic groups, or [...] place to sleep or slept in a prison (including now)? Sex Assigned at Date Recorded Female 03/20/2022 7:54 AM CDT documented as of this encounter Last Filed Vital Signs Vital Sign Reading Time Taken Comments Blood Pressure 115/72 12/02/2019 12:00 AM CDT Pulse 83 12/02/2019 12:00 AM CDT Temperature 36 ??C (96.8 ??F) 12/01/2019 10:40 PM CDT Respiratory Rate - - Oxygen Saturation 95% 12/02/2019 12:00 AM CDT Inhaled Oxygen Concentration - - Weight 85 kg (187 lb 6.3 oz) 12/01/2019 10:41 PM CDT Height - - Body Mass Index 32.17 12/01/2019 12:42 PM CDT documented in this encounter Discharge Instructions Discharge InstructionsJoMario amos Jr., M.D. - 12/02/2019 6:55 AM CDT Take zofran for nausea, tylenol for pain and continue a bland diet. Ativan 0.5 mg three times per day as needed for nausea, anxiety. Follow up with GI or PCP in 4-5 days for recheck. Go to [facility] in [place] if symptoms recur. Protonix should be continued as well. Return stool to lab for testing. Mom will keep an eye on patient over the next few days and bring patient back if symptoms worsen. Pt contracted for safety. AttachmentsThe following attachments cannot be sent through Care Everywhere. Abdominal Pain Adult (Kiswahili)documented in this encounter Medications at Time of [...] 10 Take by mouth. 0 mg tablet Misc Prescription Trazapam 15 mg i po 0 [...] documented as of this encounter ED Notes Sammi Wilks R.N. - 12/02/2019 1:05 AM CDT Patient was able to eat a pack of saltine crackers with sips of water. Patient was shown to keep this down with no vomiting, but did state it upset his stomach. Patient was reminded to not drink large amounts of fluid at once to allow his stomach to relax. Patient walked to bathroom indp. With no compl ications. During patient d/c patient was upset with plan of care. Patient made the comment to this nurse its pretty sad that I am this sick and I am willing to kill myself over it. Provider was notified and at the bedside with patient and patients mother. Sammi Wilks R.N. 12/02/19 0108 Mario Mares Jr., M.D. - 12/01/2019 10:55 PM CDT SUBJECTIVE CHIEF COMPLAINT/REASON FOR VISIT Abdominal Pain (24 year old male admits with complaints of abdominal pain x1 week. Pt has been scenein the [facility] this week and was dis) HISTORY OF PRESENT ILLNESS This is a 24 yo man who has been having significant abdominal pain over the past week. He has been seen three times in the past 24 hours. First at the [facility], then at [facility], this afternoon at [facility] and now here at the ED. He has had extensive lab and CT imaging at [facility] within the past 12 hours which all appear normal. He has not been able to keep food down recently per his report although he passed a PO challenge at [facility] this afternoon. His abdominal pain is worst in the left lower quadrant now. He has tried dicyclomine, protonix, toradol, and zofran without improvement in his symptoms. His father recently has had significant liver problems which has been stressful for the patient. I received collateral history from patients mother whom he lives with. HE currently denies fevers, chills, dysuria, hematuria, blood in stool. Has had loose stools and nausea and vomiting. No travel or sick contacts. REVIEW OF SYSTEMS Constitutional: Negative. HENT: Negative. Eyes: Negative. Respiratory: Negative. Cardiovascular: Negative. Gastrointestinal: Positive for abdominal pain, diarrhea, nausea and vomiting. Endocrine: Negative. Genitourinary: Negative. Musculoskeletal: Negative. Skin: Negative. Allergic/Immunologic: Negative. Neurological: Negative. Hematological: Negative. Psychiatric/Behavioral: Negative. OBJECTIVE Initial Vitals [12/01/19 2240] Temperature Pulse Rate Heart Rate Resp Blood Pressure SpO2 36 ??C 70 -- -- (!) 142/94 98 % Pain Score 10 - Worst possible pain PHYSICAL EXAMINATION Constitutional: Nursing note and vitals reviewed. HENT: Head: Normocephalic and atraumatic. Right Ear: Tympanic membrane normal. Left Ear: Tympanic membrane normal. Nose: Nose normal. Mouth/Throat: Oropharynx is clear and moist. Mucous membranes are moist. Dental: Good dentition. Eyes: Conjunctivae and EOM are normal. Pupils are equal, round, and reactive to light. Extraocular Movements: EOM normal. Neck: Normal range of motion. Neck supple. Cardiovascular: Normal rate, regular rhythm, S1 normal, S2 normal and normal heart sounds. Pulses are strong and palpable. Capillary refill: takes less than 3 seconds, Pulmonary/Chest: Effort normal and breath sounds normal. There is normal air entry. Abdominal: Soft. Bowel sounds are normal. There is no hepatosplenomegaly. There is abdominal tenderness in the left lower quadrant. There is no rebound, no guarding, no tenderness at McBurney's point and negative Villa's sign. No hernia. +carnetts sign Musculoskeletal: Normal range of motion. Neurological: He is alert and oriented to person, place, and time. He has normal reflexes. Skin: Skin is warm, dry, intact and normal color. Psychiatric: He has a normal mood and affect. His behavior is normal. Judgment and thought content normal. ASSESSMENT/PLAN Impression and Plan Abdominal pain -believe this pain is multifactorial (musculoskeletal, related to stress/anxiety, possiblye viral/functional (IBS?), h pylori, celiac disease, other). Advise bland diet, fluids, tylenol,zofran, heat/ice to abdominal wall. Protonix should be continued as well. Ativan #10 also prescribedfor patient for anxiety symptoms. Return stool studies for testing (enteric pathogens, h pylori). Celiac disease testing also in progress. Follow up with pcp or gi in 4- 5 days for recheck. Advised mom to keep an eye on patient over the next few days and bring him back in for evaluation if symptoms worsened. Pt contracted for safety. I reviewed previous medical records including lab results and documentation from previous visits. I personally reviewed the lab result(s) and my interpretation is documented in ED Course.CPR: No CPRperformed. ED Course as of Dec 01 644 [facility] Dec 02, 2019 0643 Basic Metabolic Panel(!): Potassium, P 3.9 Sodium, P 136 Chloride, P 98 Bicarbonate, P 21(!) Anion Gap, P 17(!) BUN, P 13 Creatinine, P 1.06 eGFR Black >90 eGFR Non-Black >90 Calcium, Total, P 9.8 Glucose, P 112 0643 CBC with Differential, Blood(!): Hemoglobin 16.0 Hematocrit 46.3 Erythrocytes 5.16 MCV 89.7 RBC Distrib Width 12.6 Platelet Count 291 White Blood Cell Count 11.2(!) Neutrophils 8.28(!) Lymphocytes 2.02 Monocytes 0.83(!) Eosinophils 0.00(!) Basophils 0.03 0643 Pt given 1L NS IV, dilaudid 1 mg IV, zofran 4 mg IV, ativan 1 mg IV after which he felt better.Did mention pain was so bad he 'would kill himself' 0644 I further talked with him and he said he was not suicidal but the pain was extremely bad. He was hesitant to leave the ED thinking that the pain would return. He passed a PO challenge. Final Diagnoses: as of Dec 01 644 Abdominal Pain Anxiety Mario Mares Jr., M.D. 12/02/19 0655 documented in this encounter Plan of Treatment Upcoming Encounters Date Type Specialty Care Team Description 05/23/2022 Telemedicine Endocrinology Arely Bond M.B., B.Ch. [address] [place], [place] [phone] (Wo rk) documented as of this encounter Procedures Procedure Name Priority Date/Time Associated Diagnosis Comme nts CBC WITH STAT 12/01/2019 11:04 PM Results for this DIFFERENTIAL, B CDT procedure ar e in the results section. BASIC METABOLIC STAT 12/01/2019 11:04 PM Resul ts for this PANEL, S/P CDT procedure are i n the results section. documented in this encounter Results (ABNORMAL) Basic Metabolic Panel (12/01/2019 11:04 PM CDT) P athologist Signature Potassium, P 3.9 3.6 - 5.2 12/01/2019 [facility] mmol/L 11:23 PM CDT Sodium, P 136 135 - 145 12/01/2019 [facility] mmol/L 11:23 PM CDT Chloride, P 98 98 - 107 12/01/2019 [facility] mmol/L 11:23 PM CDT Bicarbonate, P 21 (L) 22 - 29 12/01/2019 [facility] mmol/L 11:23 PM CDT Anion Gap, P 17 (H) 7 - 15 12/01/2019 [facility] 11:23 PM CDT BUN (Blood Urea 13 8 - 24 12/01/2019 [facility] Nitrogen), P mg/dL 11:23 PM CDT Creatinine 1.06 0.74 - 12/01/2019 [facility] 1.35 mg/dL 11:23 PM CDT eGFR-Black/Afri >90 >=60 12/01/2019 [facility] can Norwegian mL/min/BSA 11:23 PM CDT Comment: ----ADDITIONAL INFORMATION---- Estimated GFR calculated using the 2009 CKD_EPI creatinine equation. eGFR Non-Black/ >90 >=60 mL/min/BSA 12/01/2019 11:23 PM CDT [facility] Comment: ----ADDITIONAL INFORMATION---- Estimated GFR calculated using the 2009 CKD_EPI creatinine equation. Calcium, Total, P 9.8 8.6 - 10.0 mg/dL 12/01/2019 11:2 3 PM CDT [facility] Glucose, P 112 70 - 140 mg/dL 12/01/2019 11:23 PM CDT [facility] Specimen Anatomical Collection Method Collection Time Receive d Time (Source) Location / / Volume Laterality Blood (Blood, 12/01/2019 11:04 12/01/2019 Venous) PM CDT 11:04 PM CDT Mario Mares Jr., M.D. LAB BLOOD ADD-ON Performing Organization Address City/State/[facility] Code Phon e Number - [address] [place] [address] [place] [address] System in [address] (ABNORMAL) CBC with Differential, Blood (12/01/2019 11:04 PM CDT) [facility] gist Method Time Signature Hemoglobin 16.0 13.2 - 12/01/2019 [facility] 16.6 g/dL 11:06 PM CDT Hematocrit 46.3 38.3 - 12/01/2019 [facility] 48.6 % 11:06 PM CDT Erythrocytes 5.16 4.35 - 12/01/2019 [facility] 5.65 11:06 PM CDT x10(12)/L MCV 89.7 78.2 - 12/01/2019 [facility] 97.9 fL 11:06 PM CDT RBC Distrib Width 12.6 11.8 - 12/01/2019 [facility] 14.5 % 11:06 PM CDT Platelet Count 291 135 - 317 12/01/2019 [facility] x10(9)/L 11:06 PM CDT Leukocytes 11.2 (H) 3.4 - 9.6 12/01/2019 [facility] x10(9)/L 11:06 PM CDT Neutrophils 8.28 (H) 1.56 - 12/01/2019 [facility] 6.45 11:06 PM CDT x10(9)/L Lymphocytes 2.02 0.95 - 12/01/2019 [facility] 3.07 11:06 PM CDT x10(9)/L Monocytes 0.83 (H) 0.26 - 12/01/2019 [facility] 0.81 11:06 PM CDT x10(9)/L Eosinophils 0.00 (L) 0.03 - 12/01/2019 [facility] 0.48 11:06 PM CDT x10(9)/L Basophils 0.03 0.01 - 12/01/2019 [facility] 0.08 11:06 PM CDT x10(9)/L Specimen Anatomical Collection Method Collection Time Receive d Time (Source) Location / / Volume Laterality Blood (Blood, 12/01/2019 11:04 12/01/2019 Venous) PM CDT 11:04 PM CDT Mario Mares Jr., M.D. LAB BLOOD ADD-ON Performing Organization Address City/State/ZIP Code Phon e Number - [address] [place] [address] [place] [address] [address] documented in this encounter Visit Diagnoses Diagnosis Abdominal Pain - Primary Anxiety documented in this encounter Administered Medications Inactive Administered Medications - up to 3 most recent administrations Medication Order MAR Action Action Date Dose Rate Site HYDROmorphone injection 1 mg Given 12/01/2019 11:03 PM CDT 1 mg (DILAUDID) 1 mg, intravenous, Once, On Fri12/01/19 at 2256, For 1 dose LORazepam injection 1 mg (ATIVAN) Given 12/01/2019 11:36 PM CDT 1 mg 1 mg, intravenous, Once, On Fri12/01/19 at 2323, For 1 dose, For intravenous use, dilute with equal volume of 0.9% NS NaCl 0.9 % bolus 1,000 mL New Bag 12/01/2019 10:15 PM CDT 1,000 mL 2000 mL/hr 1,000 mL, intravenous, at 2,000 mL/hr, Administer over 0.5 Hours, Once, On Fri12/01/19 at 2255, For 1 dose ondansetron (PF) injection 4 mg (ZOFRAN) Given 12/01/2019 11:01 PM CDT 4 mg 4 mg, intravenous, Once, On Fri12/01/19 at 2256, For 1 dose documented in this encounter Active and Recently Administered Medications Times are shown in CDT. Scheduled Medication Order 11/30/2019 12/01/2019 12/02/2019 HYDROmorphone injection 1 mg (DILAUDID) (COMPLETED) 2302 (Given - Provider: Sylvie WattersNDario) 1 mg, intravenous, Once, On Fri12/01/19 at 2256, For 1 dose LORazepam injection 1 mg (ATIVAN) (COMPLETED) 2335 (Given - Provider: Sylvie WattersN.) 1 mg, intravenous, Once, On Fri12/01/19 at 2323, For 1 dose, For intravenous use, dilute with equal volume of 0.9% NS NaCl 0.9 % bolus 1,000 mL (COMPLETED) 22 15 (New Bag - Provider: Sylvie WattersN.) 0011 (Stopped - Provider: Sylvie DíazNDario) 1,000 mL, intravenous, at 2,000 mL/hr, A dminister over 0.5 Hours, Once, On Fri12/01/19 at 2255, For 1 dose ondansetron (PF) injection 4 mg (ZOFRAN) (COMPLETED) 2300 (Given - Provider: Sammi Wilks RDarioNDario) 4 mg, intravenous, Once, On Fri12/01/19 at 2256, For 1 dose documented in this encounter Care Teams Outsole Cementer Machine Relationship Specialty Start Date End Date Elsewhere, Pcp PCP - General Sales Support Rep 07/01/19 documented as of this encounter
--- OUTSIDE RECORDS SUMMARY | 2022-04-12 08:13 | XMS_ITS | Encounter Summary ---
:1995 Author Organization [facility] Address [address] [place] [address] Care Team Providers Name Role Phone Elsewhere, Pcp Primary Care Provider Unavailable Reason for Referral MRI/CAT/PET Scan (Routine) - Closed Specialty Diagnoses / Procedures Referred By Contact Refer red To Contact Radiology Diagnoses Other Chronic Pain Estevan Gibbs P.A.-C. [facility] [place] [facility] Procedures MR Thoracic Spine without IV Contrast [place] MRI THORAC SPINE [facility] [address] [facility] [address], [address] [address] Referral ID Status Reason Start Date Expiration Date Visits Requ ested Visits Authorized [id number] Closed 05/17/2020 05/17/2021 1 1 ICE STATION OPERATOR MRI/CAT/PET Scan (Routine) - Closed Specialty Diagnoses / Procedures Referred By Contact Refer red To Contact Radiology Diagnoses Other Chronic Pain Estevan Gibbs P.A.-C. [facility] [place] [facility] Procedures MR Lumbar Spine without IV Contrast [place] MRI LUMB SPINE [facility] [address] [facility] [address], [address] [address] Referral ID Status Reason Start Date Expiration Date Visits Requ ested Visits Authorized [id number] Closed 05/17/2020 05/17/2021 1 1 ICE STATION OPERATOR Reason for Visit MRI/CAT/PET Scan (Routine) - Closed Specialty Diagnoses / Procedures Referred By Contact Refer red To Contact Radiology Diagnoses Other Chronic Pain Estevan Gibbs P.A.-C. [facility] Region Procedures MR Thoracic Spine without IV Contrast [place] MRI THORAC SPINE [facility] [address] [place] [address] Referral ID Status Reason Start Date Expiration Date Visits Requ ested Visits Authorized [id number] Closed 05/17/2020 05/17/2021 1 1 Encounter Details Date Type Department Care Team Description 05/25/2020 Hospital Encounter Department of Estevan Gibbs, [facility] [place] [address] [address] [address] [place], [place] [phone] (Work) [phone] Social History Tobacco Use Types Packs/Day Years [...] 03/20/2022 relatives? How often do you attend baptist or restorationist services? Never 03/20/2022 Do you belong to any clubs or organizations such as No 03/20/2022 baptist groups, unions, fraternal or athletic groups, or [...] place to sleep or slept in a long term (including now)? Sex Assigned at Date Recorded [...] at bedtime. documented as of this encounter Plan of Treatment Upcoming Encounters Date Type Specialty Care Team Description 05/23/2022 Telemedicine Endocrinology Arely Bond M.B., B.Ch. [address] [place] [phone] (Wo rk) documented as of this encounter Procedures Procedure Name Priority Date/Time Associated Comments Diagnosis MR LUMBAR SPINE RAD - Routine 05/25/2020 10:48 Other Chronic Result s for this WITHOUT IV (most inpatients AM SERVICE STATION OPERATOR Pain procedure a re in CONTRAST and all the results outpatients) section. MR THORACIC SPINE RAD - Routine 05/25/2020 10:48 Other Chronic Resu lts for this WITHOUT IV (most inpatients AM SERVICE STATION OPERATOR Pain procedure a re in CONTRAST and all the results outpatients) section. documented in this encounter Results MR Thoracic Spine without IV Contrast (05/25/2020 10:48 AM SERVICE STATION OPERATOR) Anatomical Region Laterality Modality Thoracic Spine, Neuroradiology RST LOS, Neuroradiology N/A Magnetic Resonance ARZ LOS, Neuroradiology FLA LOS Specimen (Source) Anatomical Collection Method Collection Time Re ceived Time Location / / Volume Laterality 05/25/2020 11:45 AM SERVICE STATION OPERATOR Impressions 05/25/2020 12:01 PM SERVICE STATION OPERATOR 1. ??Minimal thoracic spondylosis. 2. ??Negative lumbar spine. 3. ??Negative for neural impingement or spinal stenosis. Narrative 05/25/2020 12:01 PM SERVICE STATION OPERATOR EXAM: MR LUMBAR SPINE WITHOUT IV CONTRAST, MR THORACIC SPINE WITHOUT IV CONTRAST COMPARISON: CT abdomen/pelvis 12/01/19. FINDINGS: Thoracic spine: No fracture or subluxati on. T7-8 disc has desiccation and mild height loss. T10-11 disc has mild waiter/waitress tourist class ior annular bulge, desiccation, and mild height loss. Few small chronic Schmorl's nodes in the lower thoracic endplates. No levels of the neural impingement or s monica stenosis. The thoracic cord has normal signal intensity and morphology w ithout edema. No facet hypertrophy. Lumbar spine: No fracture or subluxation . Negative for disc protrusion, facet hypertrophy, neural impingement, or spin al stenosis. Procedure Note Paulo Eric M.D. - 05/25/2020 EXAM: MR LUMBAR SPINE WITHOUT IV CONTRAS T, MR THORACIC SPINE WITHOUT IV CONTRAST COMPARISON: CT abdomen/pelvis 12/01/19. FINDINGS: Thoracic spine: No fracture or subluxati on. T7-8 disc has desiccation and mild height loss. T10-11 disc has mild waiter/waitress tourist class ior annular bulge, desiccation, and mild height loss. Few small chronic Schmorl's nodes in the lower thoracic endplates. No levels of the neural impingement or s monica stenosis. The thoracic cord has normal signal intensity and morphology w ithout edema. No facet hypertrophy. Lumbar spine: No fracture or subluxation . Negative for disc protrusion, facet hypertrophy, neural impingement, or spin al stenosis. IMPRESSION: 1. Minimal thoracic spondylosis. 2. Negative lumbar spine. 3. Negative for neural impingement or sp inal stenosis. Estevan [facility] MRI PROCEDURES MR Lumbar Spine without IV Contrast (05/25/2020 10:48 AM SERVICE STATION OPERATOR) Anatomical Region Laterality Modality Lumbar Spine, Neuroradiology RST LOS, Neuroradiology N/A Magnetic Resonance ARZ LOS, Neuroradiology FLA [facility] Specimen (Source) Anatomical Collection Method Collection Time Re ceived Time Location / / Volume Laterality 05/25/2020 11:45 AM SERVICE STATION OPERATOR Impressions 05/25/2020 12:01 PM SERVICE STATION OPERATOR 1. ??Minimal thoracic spondylosis. 2. ??Negative lumbar spine. 3. ??Negative for neural impingement or spinal stenosis. Narrative 05/25/2020 12:01 PM SERVICE STATION OPERATOR EXAM: MR LUMBAR SPINE WITHOUT IV CONTRAST, MR THORACIC SPINE WITHOUT IV CONTRAST COMPARISON: CT abdomen/pelvis 12/01/19. FINDINGS: Thoracic spine: No fracture or subluxati on. T7-8 disc has desiccation and mild height loss. T10-11 disc has mild waiter/waitress tourist class ior annular bulge, desiccation, and mild height loss. Few small chronic Schmorl's nodes in the lower thoracic endplates. No levels of the neural impingement or s monica stenosis. The thoracic cord has normal signal intensity and morphology w ithout edema. No facet hypertrophy. Lumbar spine: No fracture or subluxation . Negative for disc protrusion, facet hypertrophy, neural impingement, or spin al stenosis. Procedure Note Paulo Eric M.D. - 05/25/2020 EXAM: MR LUMBAR SPINE WITHOUT IV CONTRAS T, MR THORACIC SPINE WITHOUT IV CONTRAST COMPARISON: CT abdomen/pelvis 12/01/19. FINDINGS: Thoracic spine: No fracture or subluxati on. T7-8 disc has desiccation and mild height loss. T10-11 disc has mild waiter/waitress tourist class ior annular bulge, desiccation, and mild height loss. Few small chronic Schmorl's nodes in the lower thoracic endplates. No levels of the neural impingement or s monica stenosis. The thoracic cord has normal signal intensity and morphology w ithout edema. No facet hypertrophy. Lumbar spine: No fracture or subluxation . Negative for disc protrusion, facet hypertrophy, neural impingement, or spin al stenosis. IMPRESSION: 1. Minimal thoracic spondylosis. 2. Negative lumbar spine. 3. Negative for neural impingement or sp inal stenosis. Estevan [place]EEFE MRI PROCEDURES documented in this encounter Visit Diagnoses Diagnosis Other Chronic Pain documented in this encounter Care Teams Pantry Goods Maker Relationship Specialty Start Date End Date Elsewhere, Pcp PCP - General Director Occupational 07/01/19 documented as of this encounter
--- OUTSIDE RECORDS SUMMARY | 2022-04-12 08:13 | XMS_ITS | Encounter Summary ---
:1995 Author Organization [facility] Address [address] [place] [address] Care Team Providers Name Role Phone Bella Sears M.D. Primary Care Provider [phone] Reason for Visit Reason Comments Abdominal Pain Encounter Details Date Type Department Care Team Description 11/04/2018 Emergency [facility] Emergency Dalton Wallace, Abdominal Pain (Primary Department P.A.-C. Dx) [id number] [address] [place], [place] [phone] [id number] Social History Tobacco Use Types Packs/Day Years Used Date Smoking Tobacco: Former Smokeless Tobacco: Never Alcohol Use Standard Drinks/Week [...] 03/20/2022 relatives? How often do you attend uatsdin or taoism services? Never 03/20/2022 Do you belong to any clubs or organizations such as No 03/20/2022 uatsdin groups, unions, fraternal or athletic groups, or [...] slept in a senior care (including now)? 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 Abdominal Bloating (Chinese)Constipation Adult (Chinese)documented in this encounter Medications at Time of Discharge Medication Sig Dispensed Refills Start Date End Date acetaminophen (TYLENOL) Take 650 mg by 0 03/15/20 16 325 mg tablet mouth. albuterol (PROVENTIL Inhale 2 puffs. 0 12/24/2014 HFA,VENTOLIN HFA) 90 mcg/actuation inhaler Misc Prescription Trazapam 15 mg i po 0 6 (Allergy Immunotherapy) daily for sleep montelukast (SINGULAIR) Take 10 mg by mouth. 0 10 mg tablet PARoxetine (PAXIL) 20 mg Take 20 mg by mouth. 0 1 tablet pirbuterol acetate Inhale 2 puffs as 0 05/21/2011 (MAXAIR AUTOHALER INHL) needed. valACYclovir (VALTREX) Take 1 tablet by 0 015 500 mg tablet mouth. cholecalciferol (VITAMIN Take 1 tablet by 0 07/17 D3) 50 mcg (2,000 Unit) mouth daily. tablet diphenhydrAMINE Take 50 mg by mouth. 0 03/30/2013 (BENADRYL) 50 mg capsule naproxen (NAPROSYN) 250 Take 250 mg by 0 10/25/19 13 mg tablet mouth. predniSONE (DELTASONE) Take 40 mg by mouth. 0 20 mg tablet carbamide peroxide Administer 5 drops 30 mL 0 9 11/15/2018 (DEBROX) 6.5 % otic into each ear 2 solution (two) times a day for 14 days. omeprazole (PriLOSEC) 40 Take 1 capsule (40 10 capsule 0 11/11/[address] capsule mg total) by mouth every morning before breakfast for 10 days. sucralfate (CARAFATE) 1 Take 1 tablet (1 g 120 tablet 0 10/1412/01/2018 gram tablet total) by mouth every 6 (six) hours. cefadroxil (DURICEF) 500 Take 1 capsule (500 20 capsule 0 12/01/2019 mg capsule mg total) by mouth 2 (two) times a day. gabapentin (NEURONTIN) Take 300 mg by mouth 0 12/201703/20/2022 300 mg capsule at bedtime. [facility] Prescription [facility] Prescription 0 08/01/2015 03/20/2022 (Allergy Immunotherapy) See Instructions, testoterone--80 mg IM per week--(has been taking past 8 months) temazepam (RESTORIL) Take 15 mg by mouth. 0 12/01/2019 22.5 mg capsule topiramate (TOPAMAX) 25 Take 1 tablet by 0 201503/20/2022 mg tablet mouth daily. traZODone (DESYREL) 100 Take 1 tablet by 0 201412/01/2019 mg tablet mouth. acyclovir (ZOVIRAX) 5 % Apply topically. 0 201612/01/2019 ointment levoFLOXacin (LEVAQUIN) Take 1 tablet (500 10 tablet 0 10/201712/01/2019 500 mg tablet mg total) by mouth daily. oxyCODONE-acetaminophen Take 2 tablets by 6 tablet 0 05/1612/01/2019 (PERCOCET) 5-325 mg per mouth every 6 (six) tabletIndications: Acute hours as needed for Pain pain for up to 6 doses Indication: Acute Pain. traMADol (ULTRAM) 50 mg Take 1 tablet (50 mg 20 tablet 0 03/20/2022 tablet total) by mouth every 4 (four) hours as needed for pain. traZODone (DESYREL) 100 Take 1 tablet by 0 201403/20/2022 mg tablet mouth at bedtime. documented as of this encounter ED Notes Dalton Wallace P.A.-C. - 11/04/2018 2:13 AM CDT SUBJECTIVE CHIEF COMPLAINT/REASON FOR VISIT Abdominal Pain HISTORY OF PRESENT ILLNESS 23-year-old patient presents to the ER with complaints of left lower quadrant abdominal pain. He wasseen in this facility several days ago and states that his symptoms have continued since that time. He also was seen by his PCP plain film x-rays were obtained which did reveal constipation according to a message the patient received from his doctor. He is not taking medications to help with the constipation he denies nausea or vomiting blood in stool significantly loosened stools or significant changes symptoms compared to last visit. Denies fever, anorexia, significant weight change, flank pain, back pain, penile discharge. He has not found anything to make the symptoms better or worse with the exception of eating. REVIEW OF SYSTEMS Constitutional: Negative for chills and fever. HENT: Negative for ear pain, rhinorrhea and sore throat. Eyes: Negative for visual disturbance. Respiratory: Negative for shortness of breath and wheezing. Cardiovascular: Negative for chest pain and palpitations. Gastrointestinal: Positive for abdominal pain and constipation. Negative for abdominal distention, anal bleeding, blood in stool, diarrhea, hematemesis, nausea, rectal pain and vomiting. Genitourinary: Negative for inability to urinate, dysuria, flank pain and frequency. Musculoskeletal: Negative for neck pain. Skin: Negative for rash. Neurological: Negative for weakness and headaches. All other systems reviewed and are negative. OBJECTIVE Initial Vitals [11/04/18 0009] Temperature Pulse Rate Heart Rate Resp Rate Blood Pressure SpO2 36.8 ??C 80 -- 18 (!) 141/99 96 % Pain Score 10 - Worst possible pain PHYSICAL EXAMINATION Constitutional: He appears well-developed and well-nourished. HENT: Head: Normocephalic and atraumatic. Right Ear: Tympanic membrane normal. Left Ear: Tympanic membrane normal. Nose: No nasal discharge. Mouth/Throat: Oropharynx is clear and moist. Mucous membranes are moist. Eyes: Pupils are equal, round, and reactive to light. Neck: Normal range of motion. Neck supple. Cardiovascular: Normal rate, regular rhythm, S1 normal, S2 normal and normal heart sounds. Pulses are palpable. Pulmonary/Chest: Effort normal and breath sounds normal. There is normal air entry. Abdominal: Soft. Bowel sounds are normal. He exhibits no Bunch-Stover's sign. There is no hepatosplenomegaly. There is no tenderness. There is no rigidity, no rebound, no guarding, no CVA tenderness, notenderness at McBurney's point, negative Villa's sign, no Psoas sign and no Rovsing's sign. Neurological: He is alert and oriented to person, place, and time. Skin: Skin is warm. No rash noted. Nursing note and vitals reviewed. ASSESSMENT/PLAN Impression and Plan Patient appears well. He did receive a message from his primary care doctor stating he was constipated however he has not been placed on any medications to help with his constipation. I discussed initiating medication for this however patient is insistent upon workup including lab work and CT scan. CTscan was performed which revealed no acute findings according to the radiologist. Patient's lab workis within acceptable limits. His abdominal exam is benign. Patient is placed on magnesium citrate, increase fluid intake, increase physical activity level, and improved diet. He is encouraged to followup with his PCP. Return here were given. Patient discharged in good condition.. Reviewed and summarized previous medical records including: Documentation from previous visits, Lab results and Radiology images/report. I personally reviewed the lab result(s) and my interpretation is: Normal Radiology interpretation: Normal Final Diagnoses: as of Nov 04 240 Abdominal Pain Dalton Wallace P.A.-C. 11/04/18240 Sherrie Alves R.N. - 11/04/2018 12:19 AM CDT Pt presents to ED with c/o worsening LLQ pain since Friday. Pt was seen by PCP and had blood work done on Friday. Per pt thyroid levels were increased. Pt states burning with urination that started about an hour ago. Pt also has nausea. Normal BM. Sherrie Alves R.N. 11/04/18 0023 documented in this encounter Plan of Treatment Upcoming Encounters Date Type Specialty Care Team Description 05/23/2022 Telemedicine Endocrinology Arely Bond M.B., B.Ch. [address] [place] [address] [phone] (Wo rk) documented as of this encounter Procedures Procedure Name Priority Date/Time Associated Comments Diagnosis CT ABDOMEN PELVIS RAD - Semiurgent 11/04/2018 1:03 Res ults for WITH IV CONTRAST (Fast; most ED AM CDT this proc edure patients; some are in the inpatients) results section. CBC WITH STAT 11/04/2018 12:33 Results for DIFFERENTIAL, B AM CDT this procedu re are in the results section. LIPASE, S/P STAT 11/04/2018 12:33 Results for AM CDT this procedure are in the results section. COMPREHENSIVE STAT 11/04/2018 12:33 Results fo r METABOLIC PANEL, S/P AM CDT this pr ocedure are in the results section. documented in this encounter Results CT Abdomen Pelvis with IV Contrast (11/04/2018 1:03 AM CDT) Anatomical Region Laterality Modality Abdomen, Pelvis, Abdominal RST LOS, Abdominal ARZ LOS, N/A Computed Tomography Abdominal FLA LOS Specimen (Source) Anatomical Collection Method Collection Time Re ceived Time Location / / Volume Laterality 11/04/2018 8:08 AM CDT Impressions 11/04/2018 8:13 AM CDT IMPRESSION: Diffuse fatty appearing liver, no convin cing signs of diverticulitis. Trace free fluid in the deep pelvis. vRad: ??Findings concordant with steven kurtz vRad report. Narrative 11/04/2018 8:13 AM CDT EXAM: CT ABDOMEN PELVIS WITH IV CONTRAST COMPARISON: CT abdomen and pelvis [facility] er 18, 2018 FINDINGS: The lung bases are clear. Diff use fatty appearance to the liver. The spleen is normal in size at 12 cm. The a drenal glands and pancreas are within normal limits. No biliary dilatation. No renal mass. No hydroureter or obstructive appearing renal stones. Probable trace free fluid in the deep pelvis. No definite CT findi ngs of diverticulitis. Postoperative changes left inguinal major l with surgical clips. No apparent inguinal hernia. Procedure Note Tony Salamanca M.D. - 11/04/2018Formatt ing of this note might be different from the original. EXAM: CT ABDOMEN PELVIS WITH IV CONTRAST COMPARISON: CT abdomen and pelvis [facility] er 18, 2018 FINDINGS: The lung bases are clear. Diff use fatty appearance to the liver. The spleen is normal in size at 12 cm. The a drenal glands and pancreas are within normal limits. No biliary dilatation. No renal mass. No hydroureter or obstructive appearing renal stones. Probable trace free fluid in the deep pelvis. No definite CT findi ngs of diverticulitis. Postoperative changes left inguinal major l with surgical clips. No apparent inguinal hernia. IMPRESSION: Diffuse fatty appearing liver, no convin cing signs of diverticulitis. Trace free fluid in the deep pelvis. vRad: Findings concordant with prelimina ry vRad report. Dalton Wallace P.A.-C. IMG CT PROCEDURES Lipase (11/04/2018 12:33 AM CDT) athologist Signature Lipase, P 38 13 - 60 U/L 11/04/2018 [facility] 12:57 AM CDT [facility] LAB Specimen Anatomical Collection Method Collection Time Receive d Time (Source) Location / / Volume Laterality Blood (Blood, 11/04/2018 12:33 11/04/2018 Venous) AM CDT 12:36 AM CDT Dalton Wallace P.A.-C. LAB BLOOD ADD-ON Performing Organization Address City/State/ZIP Code Phon e Number [facility]- [address] [place] [id number] [place] [address] LAB (ABNORMAL) Comprehensive Metabolic Panel (11/04/2018 12:33 AM CDT) P athologist Signature Potassium, P 3.6 3.6 - 5.2 11/04/2018 [facility] mmol/L 12:57 AM [facility] Sodium, P 136 135 - 145 11/04/2018 [facility] mmol/L 12:57 AM [facility] Chloride, P 100 98 - 107 11/04/2018 [facility] mmol/L 12:57 AM [facility] Bicarbonate, P 23 22 - 29 11/04/2018 [facility] mmol/L 12:57 AM [facility] Anion Gap, P 13 7 - 15 11/04/2018 [facility] 12:57 AM [facility] BUN (Blood Urea 12 8 - 24 11/04/2018 [facility] Nitrogen), P mg/dL 12:57 AM [facility] Creatinine 0.96 0.74 - 11/04/2018 [facility] 1.35 mg/dL 12:57 AM [facility] eGFR-Black/Afri >90 >=60 11/04/2018 [facility] can Somali mL/min/BSA 12:57 AM [facility] Comment: ----ADDITIONAL INFORMATION---- Estimated GFR calculated using the 2009 CKD_EPI creatinine equation. eGFR Non-Black/ >90 >=60 mL/min/BSA 11/04/2018 12:57 AM [facility] Somali [facility] Comment: ----ADDITIONAL INFORMATION---- Estimated GFR calculated using the 2009 CKD_EPI creatinine equation. Calcium, Total, P 9.4 8.6 - 10.0 11/04/2018 12:57 AM [facility] mg/dL [facility] Glucose, P 114 70 - 140 mg/dL 11/04/2018 12:57 AM [facility] Protein, Total, P 7.7 6.3 - 7.9 g/dL 11/04/2018 12:57 AM [facility] Albumin, P 4.5 3.5 - 5.0 g/dL 11/04/2018 12:57 AM [facility] LAB Aspartate 48 8 - 48 U/L 11/04/2018 12:57 AM [facility] IC Aminotransferase (AST), P [facility] LAB Alkaline Phosphatase, P 68 40 - 129 U/L 11/04/2018 12 :57 AM [facility] LAB Alanine Aminotransferase 82 (H) 7 - 55 U/L 11/04/2018 12: 57 AM [facility] (ALT), P [facility] LAB Bilirubin, Total, P 0.3 <=1.2 mg/dL 11/04/2018 12:57 A M [facility] LAB Specimen Anatomical Collection Method Collection Time Receive d Time (Source) Location / / Volume Laterality Blood (Blood, 11/04/2018 12:33 11/04/2018 Venous) AM CDT 12:36 AM CDT Dalton Wallace P.A.-C. LAB BLOOD ADD-ON Performing Organization Address City/State/ZIP Code Phon e Number [facility]- [id number] [place] [phone] [place] [address] CBC with Differential, Blood (11/04/2018 12:33 AM CDT) athologist Signature Hemoglobin 15.6 13.2 - 11/04/2018 [facility] 16.6 g/dL 12:46 AM [facility] LAB Hematocrit 45.3 38.3 - 11/04/2018 [facility] 48.6 % 12:46 AM [facility] LAB Erythrocytes 5.09 4.35 - 11/04/2018 [facility] 5.65 12:46 AM [facility] x10(12)/L [facility] LAB MCV 89.0 78.2 - 11/04/2018 [facility] 97.9 fL 12:46 AM [facility] LAB RBC Distrib Width 13.1 11.8 - 11/04/2018 [facility] 14.5 % 12:46 AM [facility] LAB Platelet Count 303 135 - 317 11/04/2018 [facility] x10(9)/L 12:46 AM [facility] LAB Leukocytes 8.4 3.4 - 9.6 11/04/2018 [facility] x10(9)/L 12:46 AM CDT [facility] LAB Neutrophils 4.72 1.56 - 11/04/2018 [facility] 6.45 12:46 AM CDT HEALTH x10(9)/L [facility] LAB Lymphocytes 2.74 0.95 - 11/04/2018 [facility] 3.07 12:46 AM CDT HEALTH x10(9)/L [facility] LAB Monocytes 0.80 0.26 - 11/04/2018 [facility] 0.81 12:46 AM CDT HEALTH x10(9)/L [facility] LAB Eosinophils 0.05 0.03 - 11/04/2018 [facility] 0.48 12:46 AM CDT HEALTH x10(9)/L [facility] LAB Basophils 0.04 0.01 - 11/04/2018 [facility] 0.08 12:46 AM CDT HEALTH x10(9)/L [facility] LAB Specimen Anatomical Collection Method Collection Time Receive d Time (Source) Location / / Volume Laterality Blood (Blood, 11/04/2018 12:33 11/04/2018 Venous) AM CDT 12:36 AM CDT Dalton Wallace P.A.-C. LAB BLOOD ADD-ON Performing Organization Address City/State/ZIP Code Phon e Number [facility]- [address] [place] [id number] [facility] documented in this encounter Visit Diagnoses Diagnosis Abdominal Pain - Primary documented in this encounter Administered Medications Inactive Administered Medications - up to 3 most recent administrations Medication Order MAR Action Action Date Dose Rate Site iohexol (OMNIPAQUE) 300 mg iodine/mL luis fernando ution - ADS Override Pull Starting on Fri11/04/18 at 0046, For 1 dose, Created alan corona override iohexol 300 mg iodine/mL solution 132 mL Given 11/04/2018 1:01 A M CDT 132 mL (OMNIPAQUE) 132 mL, intravenous, Once in imaging, contrast, Starting on Fri11/04/18 at 0041, For 1 dose, If administered oral then dilute in 900 mL water magnesium citrate (CITROMA) solution - ADS Given 11/04/2018 2:18 AM CDT Override Pull Starting on Fri11/04/18 at 0217, For 1 dose, Created by cabinet override NaCl 0.9 % bolus 83 mL New Bag 11/04/2018 1:01 AM CDT 83 mL 83 mL, intravenous, Once, On Fri11/04/18 at 0042, For 1 dose sodium chloride 0.9 % injection 10 mL Given 11/04/2018 1:01 AM CDT 10 mL 10 mL, intravenous, As needed, line care, Starting on Fri11/04/18 at 0041 documented in this encounter Active and Recently Administered Medications Times are shown in CDT. Scheduled Medication Order 11/02/2018 11/03/2018 11/04/2018 magnesium citrate solution 296 mL (CITROMA) 0213 (Due) 296 mL, oral, Once, Fri11/04/18 at 0213, For 1 dose NaCl 0.9 % bolus 83 mL (COMPLETED) 0101 (New Bag - Provider: Sonu Bruce(R) - Comment: [id number]) 83 mL, intravenous, Once, On Fri11/04/18 at 0042, For 1 dose PRN Medication Order 11/02/2018 11/03/2018 11/04/2018 iohexol 300 mg iodine/mL solution 132 mL (OMNIPAQUE) (COMPLETED) 0101 (Given - Provider: Sonu Bruce(R) - Comment: [id number]) 132 mL, intravenous, Once in imaging, co ntrast, Starting on Fri11/04/18 at 0041, For 1 dose, If administered oral then dilute in 900 mL water sodium chloride 0.9 % injection 10 mL 0101 (Given - Provider: Sonu Bruce(R) - Comment: [id number]) 10 mL, intravenous, As needed, line care, Starting on Fri 9 at 0041 No Frequency Medication Order 11/02/2018 11/03/2018 11/04/2018 magnesium citrate (CITROMA) solution - ADS Override Pull (COMPLE CHRISTOPHE) 0218 (Given - Provider: Sherrie Alves R.N.) Starting on Fri11/04/18 at 0217, For 1 dose, Created by cabinet override documented in this encounter Care Teams Environmental Law Professor Relationship Specialty Start Date End Date Bella Sears M.D. PCP - General 11/28/16 06/30/[address] [place] [address], [place] [address] documented as of this encounter
--- OUTSIDE RECORDS SUMMARY | 2022-04-12 08:13 | XMS_ITS | Encounter Summary ---
:[address] [facility] Address [address] [place] [address] Care Team Providers Name Role Phone Bella Sears M.D. Primary Care Provider [phone] Encounter Details Date Type Department Care Team Description 06/11/2018 Clinical Communication [facility] [place] [facility], in [address] [address] [place], [place] [phone] [id number] (Work) [phone] Social History Tobacco Use Types Packs/Day Years Used Date Smoking Tobacco: Some Days Smokeless Tobacco: Never Alcohol Use Standard Drinks/Week Comments Yes 0 (1 standard drink = 0.6 oz pure alcoho l) 1 Alcohol Habits Answer Date Recorded How often [...] 03/20/2022 relatives? How often do you attend yarsanism or nondenominational services? Never 03/20/2022 Do you belong to any clubs or organizations such as No 03/20/2022 yarsanism groups, unions, fraternal or athletic groups, or [...] place to sleep or slept in a nursing home (including now)? Sex Assigned at Date Recorded Female 03/20/2022 7:54 AM CDT documented as of this encounter Plan of Treatment Upcoming Encounters Date Type Specialty Care Team Description 05/23/2022 Telemedicine Endocrinology Arely Bond M.B., B.Ch. [address] [place], [place] [phone] (Wo rk) documented as of this encounter Visit Diagnoses Not on filedocumented in this encounter Care Teams Dentures Lab Technician Relationship Specialty Start Date End Date Bella Sears M.D. PCP - General 11/28/16 06/30/19 [address] [place] [address] documented as of this encounter
--- OUTSIDE RECORDS SUMMARY | 2022-04-12 08:13 | XMS_ITS | Encounter Summary ---
:1995 Author Organization [facility] Address [address] [place] [address] Care Team Providers Name Role Phone Elsewhere, Pcp Primary Care Provider Unavailable Reason for Visit Reason Comments COVID Nurse Line Encounter Details Date Type Department Care Team Description 11/30/2019 Nurse Triage Department of Family Clau Sterling COVI D Nurse Line Medicine, [facility], [facility] [place], [place] [address] [facility] [address] [place] [phone] Social History Tobacco Use Types Packs/Day Years [...] 03/20/2022 relatives? How often do you attend scientologist or scientologist services? Never 03/20/2022 Do you belong to any clubs or organizations such as No 03/20/2022 scientologist groups, unions, fraternal or athletic groups, or [...] place to sleep or slept in a alf (including now)? Sex Assigned at Date Recorded Female 03/20/2022 7:54 AM CDT documented as of this encounter Miscellaneous Notes Telephone Encounter - Clau Sterling R.N. - 11/30/2019 9:27 PM CDT COVID-19 Nurse Line Screening ASSESSMENT COVID 19 Screening Have you had close contact with a person who has a LABORATORY CONFIRMED case of COVID-19?: No - Continue screening. In the last 48 hours have you had any of the following symptoms?: No - Complete screening. Consider alternative diagnosis. We are not currently testing or isolating patients or visitors who have no symptoms and no close contact. PLAN Endpoint recommendation: Screening negative, testing not indicated at this time Care Points provided: STANDARD PRECAUTIONS FOR ALL PATIENTS: Wash hands often with soap and water for at least 20 seconds, especially after blowing your nose, coughing, sneezing, or having been in a public place. If soap and water aren't available, use a hand telephone operator receptionist that contains at least 60% alcohol. Avoid close contact with anyone who may be exhibiting respiratory symptoms such as coughing and sneezing. Avoid touching your eyes, nose and mouth. Clean and disinfect frequently touched surfaces daily. Cover your mouth and nose with a cloth face cover when around others or in public. The cloth face cover is not a substitute for social distancing. Continue to keep about 6 feet between yourself andothers. Stay home as much as possible (only going out for essential items or medical care). Educational Resource: https://www.cdc.gov/coronavirus/2019-ncov/tvrklhg-nijqhhx-sbhg/index.html Education: patient/caregiver Patient/caregiver able to teach back Patient agreeable to plan of care: Yes The following references were used: CDC web site https://www.cdc.gov/coronavirus/2019-ncov/summary.html documented in this encounter Plan of Treatment Upcoming Encounters Date Type Specialty Care Team Description 05/23/2022 Telemedicine Endocrinology Arely Bond M.B., B.Ch. [address] [place], [place] [phone] (Wo rk) documented as of this encounter Visit Diagnoses Not on filedocumented in this encounter Care Teams Lease Examiner Relationship Specialty Start Date End Date Elsewhere, Pcp PCP - General Other Wood Processing Machine Operator 07/01/19 documented as of this encounter
--- OUTSIDE RECORDS SUMMARY | 2022-04-12 08:13 | XMS_ITS | Encounter Summary ---
:1995 Author Organization [facility] Address [address] [place] [address] Care Team Providers Name Role Phone Bella Sears M.D. Primary Care Provider [phone] Reason for Visit Reason Comments Post-op Problem Pt post-phalloplasty, presen ts w/increased drainage and pain from incision below phallus. Rate s pain 12/23. Encounter Details Date Type Department Care Team Description 05/16/2018 Emergency [facility] Doug Izaguirre I nfection Wound Department M.DDario Postoperative Initial [address] [facility] (Primary Dx) [place], [place] [phone] Social History Tobacco Use Types Packs/Day Years Used Date Smoking Tobacco: Some Days Smokeless Tobacco: Never Alcohol Use Standard Drinks/Week Comments No 0 (1 standard drink = 0.6 oz pure alcoho l) Alcohol Habits Answer Date Recorded How often [...] 03/20/2022 relatives? How often do you attend caodaism or zoroastrianism services? Never 03/20/2022 Do you belong to any clubs or organizations such as No 03/20/2022 caodaism groups, unions, fraternal or athletic groups, or [...] place to sleep or slept in a usp (including now)? Sex Assigned at Date Recorded Female 03/20/2022 7:54 AM CDT documented as of this encounter Last Filed Vital Signs Vital Sign Reading Time Taken Comments Blood Pressure 124/88 05/16/2018 3:57 AM AUTOMOTIVE REFINISHER Pulse 76 05/16/2018 3:57 AM AUTOMOTIVE REFINISHER Temperature 36.5 ??C (97.7 ??F) 05/16/2018 3:57 AM AUTOMOTIVE REFINISHER Respiratory Rate 16 05/16/2018 3:57 AM AUTOMOTIVE REFINISHER Oxygen Saturation 98% 05/16/2018 3:57 AM AUTOMOTIVE REFINISHER Inhaled Oxygen Concentration - - Weight - - Height 162.6 cm (5' 4.02) 05/16/2018 2:58 AM AUTOMOTIVE REFINISHER Body Mass Index - - documented in this encounter Discharge Instructions AttachmentsThe following attachments cannot be sent through Care Everywhere. Wound Infection [id number] (S[place] Arabian)documented in this encounter Medications at Time of Discharge Medication Sig Dispensed Refills Start Date End Date acetaminophen (TYLENOL) Take 650 mg by 0 03/15/20 16 325 mg tablet mouth. albuterol (PROVENTIL Inhale 2 puffs. 0 12/24/2014 HFA,VENTOLIN HFA) 90 mcg/actuation inhaler diphenhydrAMINE Take 50 mg by mouth. 0 03/30/2013 (BENADRYL) 50 mg capsule Misc Prescription Trazapam 15 mg i po 0 6 (Allergy Immunotherapy) daily for sleep montelukast (SINGULAIR) Take 10 mg by mouth. 0 10 mg tablet naproxen (NAPROSYN) 250 Take 250 mg by 0 10/25/19 13 mg tablet mouth. PARoxetine (PAXIL) 20 mg Take 20 mg by mouth. 0 1 tablet pirbuterol acetate Inhale 2 puffs as 0 05/21/2011 (MAXAIR AUTOHALER INHL) needed. predniSONE (DELTASONE) Take 40 mg by mouth. 0 20 mg tablet valACYclovir (VALTREX) Take 1 tablet by 0 015 500 mg tablet mouth. cephalexin (KEFLEX) 500 Take 1 capsule (500 40 capsule 0 06/201705/26/2018 mg capsule mg total) by mouth every 6 (six) hours for 10 days. acyclovir (ZOVIRAX) 5 % Apply topically. 0 201612/01/2019 ointment gabapentin (NEURONTIN) Take 300 mg by mouth 0 12/201703/20/2022 300 mg capsule at bedtime. levoFLOXacin (LEVAQUIN) Take 1 tablet (500 10 tablet 0 10/201712/01/2019 500 mg tablet mg total) by mouth daily. [facility] Pres[place] [facility] Prescription 0 08/01/2015 03/20/2022 (Allergy Immunotherapy) See Instructions, testoterone--80 mg IM per week--(has been taking past 8 months) oxyCODONE-acetaminophen Take 2 tablets by 6 tablet 0 05/1612/01/2019 (PERCOCET) 5-325 mg per mouth every 6 (six) tabletIndications: Acute hours as needed for Pain pain for up to 6 doses Indication: Acute Pain. temazepam (RESTORIL) Take 15 mg by mouth. 0 12/01/2019 22.5 mg capsule topiramate (TOPAMAX) 25 Take 1 tablet by 0 201503/20/2022 mg tablet mouth daily. traMADol (ULTRAM) 50 mg Take 1 tablet (50 mg 20 tablet 0 03/20/2022 tablet total) by mouth every 4 (four) hours as needed for pain. traZODone (DESYREL) 100 Take 1 tablet by 0 201412/01/2019 mg tablet mouth. traZODone (DESYREL) 100 Take 1 tablet by 0 201403/20/2022 mg tablet mouth at bedtime. documented as of this encounter Progress Notes Sofiya Caraballo D.O. - 05/16/2018 4:10 AM CST Second attempt at 9:30pm. Voicemail left for patient to call the ED regarding his culture results. Sofiya Caraballo D.O. 05/19/18 0142 MOTIVE REFINISHER documented in this encounter ED Notes Doug Izaguirre M.D. - 05/16/2018 4:10 AM CST SUBJECTIVE CHIEF COMPLAINT/REASON FOR VISIT Post-op Problem (Pt post-phalloplasty, presents w/increased drainage and pain from incision below phallus. Rates pain 12/23. ) HISTORY OF PRESENT ILLNESS This is a 23-year-old transgender female to male who has had gender reassignment surgery with bilateral subcutaneous mastectomy and multiple procedures for phalloplasty. Unfortunately, the postoperative recovery from the hysterectomy, closure and removal of the vagina, and creating a neophallus and neoscrotum have been troubled with multiple infections and discomfort. As a consequence the urethral meatus and tract have been scarred and the patient had a further procedure to bring the urethra to the perineal body with the anticipation of reconstruction added for the future time. The patient presentsonce again with discomfort just below the neophallus and yellowish greenish drainage. The patient isable to urinate and does not identify significant intra-abdominal discomfort. The patient does have some perineal burning with urination. The patient denies abdominal pain. The patient indicates most of his discomfort seems to be incisional or on the surface of the skin. Past Medical History: No date: Acne Vulgaris No date: Autism Spectrum Disorder (HCC) Comment: Asperger traits No date: Depression/Karla/Bipolar NOS No date: Dysphoria Gender Adolescent Or Adult No date: Herpes Simplex Genital Recurrent 03/2015: Hormone Replacement Therapy No date: Hyperlipidemia No date: Migraine Headache Past Surgical History: 11/27/2016: MASTECTOMY COMPLETE / SIMPLE 11/07/2017: PHALLOPLASTY 03/12/2016: TOTAL ABDOMINAL HYSTERECTOMY W/ BILATERAL SALPINGOOPHORECTOMY Review of patient's family history indicates: Problem: Pulmonary embolism Relation: Mother Age of Onset: (Not Specified) Problem: Diabetes Relation: Father Age of Onset: (Not Specified) Smoking status: Current Some Day Smoker Packs/day: 0.00 Years: 0.00 Smokeless tobacco: Never Used Alcohol use: No History provided by: Patient History limited by: There are no limitations to the history or exam. interpreter and translator needed/used: no REVIEW OF SYSTEMS Constitutional: Negative. Negative for activity change, chills and fever. HENT: Negative. Eyes: Negative. Respiratory: Negative. Cardiovascular: Negative. Gastrointestinal: Negative. Negative for diarrhea, nausea and vomiting. Genitourinary: Negative. Negative for dysuria, flank pain, frequency and hematuria. Musculoskeletal: Negative. Skin: Positive for wound (Drainage from the surgical below neophallus). Neurological: Negative. Negative for dizziness and weakness. Hematological: Does not bruise/bleed easily. Psychiatric/Behavioral: Positive for depression. The patient is nervous/anxious. OBJECTIVE Initial Vitals [05/16/18 0254] Temperature Pulse Rate Heart Rate Resp Rate Blood Pressure SpO2 36.4 ??C 94 -- 16 (!) 134/92 97 % Pain Score 7 PHYSICAL EXAMINATION Constitutional: He appears well-developed and well-nourished. HENT: Head: Atraumatic. Mouth/Throat: Mucous membranes are moist. Eyes: Conjunctivae and EOM are normal. Neck: Neck supple. Cardiovascular: Normal rate, regular rhythm and normal heart sounds. Pulmonary/Chest: Effort normal and breath sounds normal. Abdominal: Soft. Bowel sounds are normal. He exhibits no distension. There is no tenderness. Musculoskeletal: Normal range of motion. Neurological: He is alert. Skin: Skin is warm and dry. There are two monofilament sutures in place below the phallus as well as multiple Vicryl sutures which appear to be coming loose. In the reflection below the phallus and presumed horizontal portion of the incision there is accumulation of yellowish-greenish purulence. There are well healed donor sites on the right forearm and right anterior thigh which had been used for construction of the neophallusand neoscrotum. Exam of the perineal urethral surgical fistula there appears to be some area of erythema and minimal granulation tissue. There is no purulence or drainage from this site. Psychiatric: He has a normal mood and affect. Nursing note and vitals reviewed. ASSESSMENT/PLAN Impression and Plan This unfortunate patient continues to experiencing ongoing complications related to the gender reassignment surgery. I have considered not only local surgical incisional infection and urinary tract infection but also intra-abdominal abscess as well. The exam of the abdomen is reassuring. The patient has been restarted on antibiotics and will be making a follow-up visit on Friday. The patient has discussed his frustration at what apparently was a fairly good- looking phalloplasty which has now been significantly compromised with ongoing surgical incision infection. I have suggested he discuss this with his Family Medicine provider and perhaps a 2nd opinion from somebody skilled in this manner of surgery could be achieved either in the [facility] (the patient had the original surgery done in [place]) or perhaps in [place].. Reviewed and summarized previous medical records including: Lab results and Documentation from previous visits. I personally reviewed the lab result(s) and my interpretation is: Abnormal with the following comments: The urinalysis shows pyuria at 11-20 WBCs per high- powered field.. ED Course as of May 17 1838 Sat May 16, 2018 0400 The I reviewed the patient's labs. The urinalysis shows 11-20 WBCs per high-power field. Cultures are pending at time of this dictation. In addition to the urine culture pending there is cultures of the incisional area just below the neophallus. Final Diagnoses: as of May 17 1838 Infection Wound Postoperative Initial Doug Izaguirre M.D. 05/17/18 1857 MOTIVE REFINISHER documented in this encounter Plan of Treatment Upcoming Encounters Date Type Specialty Care Team Description 05/23/2022 Telemedicine Endocrinology Arely Bond M.B., B.Ch. [address] [place] [phone] (Wo rk) documented as of this encounter Procedures Procedure Name Priority Date/Time Associated Comments Diagnosis BACTERIAL CULTURE, STAT 05/16/2018 3:41 AM Res ults for this AEROBIC + SUSC, URINE AUTOMOTIVE REFINISHER proced ure are in the results section. URINALYSIS WITH STAT 05/16/2018 3:41 AM Result s for this MICROSCOPIC AUTOMOTIVE REFINISHER procedure are i n the results section. BACTERIAL CULTURE, STAT 05/16/2018 3:26 AM Res ults for this AEROBIC + SUSC AUTOMOTIVE REFINISHER procedure are in the results section. documented in this encounter Results Urine Culture (05/16/2018 3:41 AM AUTOMOTIVE REFINISHER) Patholo gist Method Time Signature Bacterial No growth 05/17/2018 [facility] Culture, after 1 day 12:25 PM [facility] Aerobic, Urine of SYSTEM- [facility] LAB Specimen Anatomical Collection Method Collection Time Receive d Time (Source) Location / / Volume Laterality Urine (Urine, 05/16/2018 3:41 AM 05/16/20 18 4:21 Straight AUTOMOTIVE REFINISHER PM AUTOMOTIVE REFINISHER Catheter) Comment: Specimen Source Site: Urine Doug Izaguirre M.D. LAB MICROBIOLOGY - GENERAL O RDERABLES Performing Organization Address City/State/ZIP Code Phon e Number [facility] [address] [place] [address] LAB (ABNORMAL) Urinalysis with Microscopic (catheter) (05/16/2018 3:41 AM AUTOMOTIVE REFINISHER) P athologist Signature Source Catheter 05/16/2018 [facility] 4:02 AM [facility] LAB Clarity Clear Clear 05/16/2018 [facility] 4:04 AM [facility] Color Yellow 05/16/2018 [facility] 4:04 AM [facility] LAB Comment: ----REFERENCE VALUE---- Colorless Yellow Debby Blood Negative Negative 05/16/2018 4:[address] [facility] Nitrite Negative Negative 05/16/2018 4:[address] [facility] Leukocyte Esterase Negative Negative 05/16/2018 4:04 AM [facility] Protein Negative mg/dL 05/16/2018 4:[address] [facility] Comment: ----REFERENCE VALUE---- Negative Trace Glucose Negative Negative mg/dL 05/16/2018 4:04 AM [facility] Ketones, QI(U) Negative Negative mg/dL 05/16/2018 4:04 AM [facility] Bilirubin Negative Negative 05/16/2018 4:04 AM [facility] pH 5.5 5.0 - 8.0 05/16/2018 4:04 AM [facility] Specific [place] >=1.030 1.001 - 1.035 05/16/2018 4:04 AM [facility] Urobilinogen 0.2 0.2 - 1.0 mg/dL 05/16/2018 4:04 AM [facility] LAB White Blood Cells 11-20 (A) /hpf 05/16/2018 4:04 AM [facility] LAB Comment: ----REFERENCE VALUE---- Males: 0-3 Females: 0-10 Unknown: 0-10 Red Blood Cells Occ-2 0 - 2 /hpf 05/16/2018 4:04 AM [facility] LAB Transitional Cells Occ-3 (A) None Seen /hpf 05/16/2018 4:04 AM [facility] LAB Specimen Anatomical Collection Method Collection Time Receive d Time (Source) Location / / Volume Laterality Urine (Urine, 05/16/2018 3:41 AM 05/16/20 18 4:01 Catheter) AUTOMOTIVE REFINISHER AM AUTOMOTIVE REFINISHER Doug Izaguirre M.D. LAB URINE ORDERABLES Performing Organization Address City/State/ZIP Code Phon e Number [address] [id number] [place] LAB (ABNORMAL) Bacterial Culture, Aerobic + Susc (05/16/2018 3:26 AM AUTOMOTIVE REFINISHER) Component Value Ref Test Analysis Performed At Patholo gist Range Method Time Signature Bacterial with Usual Josefa. 05/18/2018 [facility] Culture, (A) 8:20 AM AUTOMOTIVE REFINISHER HEALTH Aerobic SYSTEM- [place] LAB Bacterial KLEBSIELLA PNEUMONIAE SSP PNEUMONIAE 08/2017 [facility] Culture, 4+ 8:20 AM AUTOMOTIVE REFINISHER HEALTH Aerobic (A) SYSTEM- [place] LAB Bacterial YEAST 05/18/2018 [facility] Culture, 4+ 8:20 AM AUTOMOTIVE REFINISHER [employer] Aerobic No further identification SYST EM- (A) [place] LAB Specimen Anatomical Collection Method Collection Time Receive d Time (Source) Location / / Volume Laterality Swab (Penis) 05/16/2018 3:26 AM 8 4:20 AUTOMOTIVE REFINISHER PM AUTOMOTIVE REFINISHER Comment: Specimen Source Site: Swab Organism Antibiotic Method Susceptibility Klebsiella Ampicillin SUSCEPTIBILITY, >=32 mcg/mL: Res istant pneumoniae ssp JARROD (MCG/ML) pneumoniae Klebsiella Ampicillin + Sulbactam SUSCEPTIBILITY, >=32 mcg/ mL: Resistant pneumoniae ssp JARROD (MCG/ML) pneumoniae Klebsiella Piperacillin + Tazobactam SUSCEPTIBILITY, 32 mcg /mL: Intermediate pneumoniae ssp JARROD (MCG/ML) pneumoniae Klebsiella Cefazolin SUSCEPTIBILITY, >=64 mcg/mL: Res istant pneumoniae ssp JARROD (MCG/ML) pneumoniae Klebsiella Ceftazidime SUSCEPTIBILITY, >=64 mcg/mL: Res istant pneumoniae ssp JARROD (MCG/ML) pneumoniae Klebsiella Ceftriaxone SUSCEPTIBILITY, >=64 mcg/mL: Res istant pneumoniae ssp JARROD (MCG/ML) pneumoniae Klebsiella Cefepime SUSCEPTIBILITY, >=64 mcg/mL: Res istant pneumoniae ssp JARROD (MCG/ML) pneumoniae Klebsiella Aztreonam SUSCEPTIBILITY, >=64 mcg/mL: Res istant pneumoniae ssp JARROD (MCG/ML) pneumoniae Klebsiella Ertapenem SUSCEPTIBILITY, <=0.5 mcg/mL: pneumoniae ssp JARROD (MCG/ML) Susceptible pneumoniae Klebsiella Meropenem SUSCEPTIBILITY, <=0.25 mcg/mL: pneumoniae ssp JARROD (MCG/ML) Susceptible pneumoniae Klebsiella Gentamicin SUSCEPTIBILITY, >=16 mcg/mL: Res istant pneumoniae ssp JARROD (MCG/ML) pneumoniae Klebsiella Tobramycin SUSCEPTIBILITY, 8 mcg/mL: Interm ediate pneumoniae ssp JARROD (MCG/ML) pneumoniae Klebsiella Levofloxacin SUSCEPTIBILITY, >=8 mcg/mL: Resi stant pneumoniae ssp JARROD (MCG/ML) pneumoniae Klebsiella Trimethoprim + SUSCEPTIBILITY, >=320 mcg/mL: Re sistant pneumoniae ssp Sulfamethoxazole JARROD (MCG/ML) pneumoniae Doug Izaguirre M.D. LAB MICROBIOLOGY - GENERAL O RDERABLES Performing Organization Address City/State/ZIP Code Phon e Number [place] [id number] [place] [address] LAB documented in this encounter Visit Diagnoses Diagnosis Infection Wound Postoperative Initial - Primary documented in this encounter Care Teams Improvement Analyst Relationship Specialty Start Date End Date Bella Sears M.D. PCP - General 11/28/16 06/30/[address] [place] [phone] documented as of this encounter
--- OUTSIDE RECORDS SUMMARY | 2022-04-12 08:13 | XMS_ITS | Encounter Summary ---
:1995 Author Organization [facility] Address [address] [place] [address] Care Team Providers Name Role Phone Elsewhere, Pcp Primary Care Provider Unavailable Reason for Visit Reason Comments Abdominal Pain Has had abd. pain for a week . Saw GI this am (Dr. Young in [place] or [place]) this am, but while driving home, the pain became unbearable. (Patient is Fema le to Male transgender) Encounter Details Date Type Department Care Team Description 12/01/2019 Emergency [place] Emergency Michelle Castellanos bdominal Pain (Primary Dx); Department D, M.D. Dehydration [address] [place] [address] Social History Tobacco Use Types Packs/Day Years [...] How often do you attend yazidi or anabaptist services? Never 03/20/2022 Do you belong to [...] place to sleep or slept in a [facility] (including now)? Sex Assigned at Date Recorded Female 03/20/2022 7:54 AM CDT documented as of this encounter Last Filed Vital Signs Vital Sign Reading Time Taken Comments Blood Pressure 125/95 12/01/2019 3:15 PM CDT Pulse 106 12/01/2019 3:15 PM CDT Temperature 36.8 ??C (98.2 ??F) 12/01/2019 3:20 PM CDT Respiratory Rate 16 12/01/2019 1:30 PM CDT Oxygen Saturation 95% 12/01/2019 3:15 PM CDT Inhaled Oxygen Concentration - - Weight 83.5 kg (184 lb 1.6 oz) 12/01/2019 12:42 PM CDT Height 162.6 cm (5' 4) 12/01/2019 12:42 PM CDT Body Mass Index 31.6 12/01/2019 12:42 PM CDT documented in this encounter Discharge Instructions Discharge InstructionsTomfoMichelle westbrook M.D. - 12/01/2019 3:13 PM CDT Return to the Emergency Department immediately if you develop chest pain, shortness of breath, weakness, numbness, confusion, lightheadedness, fever, blood loss, or with any other new or concerning symptoms. Stay hydrated, drinking plenty of water aiming for light yellow urine. I have prescribed a nausea medication to be used as needed. Use only as prescribed. We will need to follow up on the results of the stool study. This can be done with close clinic follow up. I would hold off on frequent toradol as this can be upsetting to your stomach. Please follow up with your primary care doctor in the next 1-3 days regarding your visit to the Emergency Room. If you do not have a doctor, you can make an appointment at our local clinic by calling the appointment center at [phone]. Thank you for choosing [facility] for your care. It was a pleasure taking care of you today in our Emergency Department. AttachmentsThe following attachments cannot be sent through Care Everywhere. Abdominal Pain Adult (Citizen Of [place])documented in this encounter Medications at Time of Discharge Medication Sig Dispensed Refills Start Date End Date acetaminophen (TYLENOL) Take 650 mg by mouth. 0 0 03/15/2016 325 mg tablet albuterol (PROVENTIL Inhale 2 puffs. 0 12/24/2014 HFA,VENTOLIN HFA) 90 mcg/actuation inhaler ketorolac (TORADOL) 10 Take by mouth. 0 mg tablet montelukast (SINGULAIR) Take 10 mg by mouth. 0 10 mg tablet ondansetron (ZOFRAN) 4 Take 4 mg by mouth 0 mg tablet every 8 (eight) hours as needed for nausea or vomiting. PARoxetine (PAXIL) 20 mg Take 20 mg by mouth. 0 1 tablet pirbuterol acetate Inhale 2 puffs as 0 05/21/2011 (MAXAIR AUTOHALER INHL) needed. valACYclovir (VALTREX) Take 1 tablet by 0 015 500 mg tablet mouth. bacitracin zinc 500 Apply topically. 0 08/10/2019 unit/gram ointment cholecalciferol (VITAMIN Take 1 tablet by 0 07/17 D3) 50 mcg (2,000 Unit) mouth daily. tablet diphenhydrAMINE Take 50 mg by mouth. 0 03/30/2013 (BENADRYL) 50 mg capsule [facility] Prescription Trazapam 15 mg i po 0 6 (Allergy Immunotherapy) daily for sleep naproxen (NAPROSYN) 250 Take 250 mg by mouth. 0 0 10/24/2012 mg tablet ondansetron ODT 4 mg. 0 02/25/2019 (ZOFRAN-ODT) 4 mg disintegrating tablet predniSONE (DELTASONE) Take 40 mg by mouth. 0 20 mg tablet gabapentin (NEURONTIN) Take 300 mg by mouth 0 12/201703/20/2022 300 mg capsule at bedtime. topiramate (TOPAMAX) 25 Take 1 tablet by 0 201503/20/2022 mg tablet mouth daily. traMADol (ULTRAM) 50 mg Take 1 tablet (50 mg 20 tablet 0 03/20/2022 tablet total) by mouth every 4 (four) hours as needed for pain. HYDROcodone-acetaminophe hydrocodone 5 0 08/10/19 20 03/20/2022 n (NORCO) 5-325 mg per mg-acetaminophen 325 tablet mg tablet ibuprofen (ADVIL,MOTRIN) Take 400 mg by mouth. 0 08/10/2019 03/20/2022 400 mg tablet Misc Prescription Misc Prescription See 0 016 03/20/2022 (Allergy Immunotherapy) Instructions, testoterone--80 mg IM per week--(has been taking past 8 months) traZODone (DESYREL) 100 Take 1 tablet by 0 201403/20/2022 mg tablet mouth at bedtime. documented as of this encounter Nursing Notes Leslie Morgan R.N. - 12/01/2019 3:25 PM CDT Patients mother called at 5 requesting to speak with an ED nurse. I explained to her that she needs to call the nurse line. She stated that she spoke with Arlen Bledsoe ED nurse earlier today after patient was seen here today stating that patient was still vomiting. She stated that Arlen instructed them to call back if his symptoms worsen. Patients mother stated that patient is shaking uncontrollably, cold sweats and feels hot. He is also still vomiting. Patient stated that he could not handle this any longer. I advised mom to take him to the nearest ED which would be [facility]. She stated understanding. Electronically signed by: Francy Morgan R.N. 12/01/19 9:55 PM CDT documented in this encounter ED Notes Michelle Castellanos M.D. - 12/01/2019 1:13 PM CDT [facility] EMERGENCY DEPARTMENT ENCOUNTER Patient Name: Pablo Chakraborty PCP: Primary Care Physician SUBJECTIVE CHIEF COMPLAINT/REASON FOR VISIT Abdominal Pain (Has had abd. pain for a week. Saw GI this am (Dr. Young in [place] or [place]) this am, but while driving home, the pain became unbearable. (Patient is Female to Male transgender)) HISTORY OF PRESENT ILLNESS Pablo Chakraborty is a 24 y.o. adult with the below history is presenting with left-sided abdominal pain. Has a history of similar, the past thought to be related to constipation. Tried an enema at home and this is not help. Symptoms initially started last Friday, approximately 10 days prior to today. Was seen at outside emergency room last night, deferred labs and imaging and followed up with GI today. By reports GI had anticipate ordering an imaging looking at his appendix, but they are uncertain when this will occur. They were driving home today, back to [employer], and the pain increased. On the left side, cramping and squeezing, 10/10, with some radiation out to the right side. No dysuria noted. No history of kidney stones. Family history of irritable bowel but no family history of inflammatory bowel disease. There has been no blood in his stool but he has been having soft mucousy stools. Nausea just started today, without any bilious or bloody emesis. No fevers. No chest pain or shortness of breath, no infectious exposures or concerns. Notes that when he eats, which is often as he isoften feeling quite hungry, he feels like it runs right through him, seeing on digested food passed through his stools frequently. Has been taking scheduled Toradol to help with the pain, stating it was prescribed for his left-sided abdominal pain. REVIEW OF SYSTEMS Constitutional: Negative for fever and loss of appetite. Skin: Negative for skin rash. ENT: Negative for sinus congestion. Respiratory: Negative for coughing up mucus (phlegm) and dyspnea. Cardiovascular: Negative for chest pain, pressure or tightness. Gastrointestinal: Positive for nausea and vomiting. Negative for abdominal (belly) pain or cramping,blood in stool and constipation. Genitourinary: Negative for pain with urination and frequent urination. Neurological: Negative for headaches. The following systems were negative: Eyes, ENT, Musculoskeletal MEDICAL HISTORY Past Medical History: Diagnosis Date ??? Acne Vulgaris ??? Autism Spectrum Disorder (HCC) Asperger traits ??? Depression/Karla/Bipolar NOS ??? Dysphoria Gender Adolescent Or Adult ??? Herpes Simplex Genital Recurrent ??? Hormone Replacement Therapy 03/2015 ??? Hyperlipidemia ??? Migraine Headache SURGICAL HISTORY Past Surgical History: Procedure Laterality Date ??? MASTECTOMY COMPLETE / SIMPLE 11/27/2016 ??? PHALLOPLASTY 11/07/2017 ??? TOTAL ABDOMINAL HYSTERECTOMY W/ BILATERAL SALPINGOOPHORECTOMY 03/12/2016 FAMILY HISTORY Family History Problem Relation Age of Onset ??? Pulmonary embolism Mother ??? Diabetes Father SOCIAL HISTORY Social History Tobacco Use ??? Smoking status: Current Some Day Smoker ??? Smokeless tobacco: Never Used Substance Use Topics ??? Alcohol use: Yes Comment: occasional ??? Drug use: Yes Types: Marijuana Comment: occasional OBJECTIVE VITAL SIGNS BP (!) 125/95 Pulse 106 Temp 36.8 ??C Resp 16 Ht 162.6 cm Wt 83.5 kg SpO2 95% BMI 31.60 kg/m?? PHYSICAL EXAMINATION Vitals signs and nursing note reviewed. Constitutional General: He is not in acute distress. Appearance: He is not ill-appearing. Comments: Resting comfortably in bed, legs crossed HENT Head: Normocephalic. Nose: Nose normal. Mouth/Throat: Mouth: Mucous membranes are moist. Pharynx: No oropharyngeal exudate or posterior oropharyngeal erythema. Eyes General: Right eye: No discharge. Left eye: No discharge. Extraocular Movements: Extraocular movements intact. Pupils: Pupils are equal, round, and reactive to light. Neck Musculoskeletal: Normal range of motion. No neck rigidity. Cardiovascular Rate and Rhythm: Normal rate and regular rhythm. Pulses: Normal pulses. Heart sounds: Normal heart sounds. Pulmonary Effort: Pulmonary effort is normal. Abdominal General: Abdomen is flat. Palpations: Abdomen is soft. Comments: Exam is generally reassuring, there is some nonfocal lower abdominal pain present in the left lower suprapubic and right lower quadrant without rebound or guarding. Negative Villa sign, no upper abdominal tenderness. No rebound or guarding. No masses. No CVA tenderness. Musculoskeletal Normal range of motion. General: No swelling. Comments: Pain was not worsened is I had the patient range his extremities Skin General: Skin is warm. Capillary Refill: Capillary refill takes less than 2 seconds. Neurological General: No focal deficit present. Mental Status: He is alert and oriented to person, place, and time. Psychiatric Mood and Affect: Mood normal. DIAGNOSTICS LABS: Labs Reviewed URINALYSIS WITH MICROSCOPIC - Abnormal Result Value Source Midstream Clarity Clear Color Yellow Blood Negative Nitrite Negative Leukocyte Esterase Negative Protein Negative Glucose Negative Ketones, QI(U) >=80 (*) Bilirubin Moderate (*) pH 6.0 Specific [place] >=1.030 Urobilinogen 0.2 White Blood Cells Occ-3 Red Blood Cells Occ-2 Squamous Cells Occ-3 Bacteria Present (*) CBC WITH DIFFERENTIAL, B - Abnormal Hemoglobin 16.1 Hematocrit 48.0 Erythrocytes 5.24 MCV 91.6 RBC Distrib Width 13.0 Platelet Count 250 Leukocytes 9.9 (*) Neutrophils 7.13 (*) Lymphocytes 1.99 Monocytes 0.74 Eosinophils 0.01 (*) Basophils 0.03 COMPREHENSIVE METABOLIC PANEL, S/P Potassium, P 4.2 Sodium, P 138 Chloride, P 103 Bicarbonate, P 22 Anion Gap, P 13 BUN, P 17 Creatinine, P 1.06 eGFR Black >90 eGFR Non-Black >90 Calcium, Total, P 9.8 Glucose, P 104 Protein, Total, P 7.7 Albumin, P 4.7 Aspartate Aminotransferase (AST), P 43 Alkaline Phosphatase, P 52 Alanine Aminotransferase (ALT), P 47 Bilirubin, Total, P 0.7 LIPASE, S/P Lipase, P 22 RADIOLOGY: CT Abdomen Pelvis with IV Contrast Final Result No definite acute CT abnormalities are identified. No etiology for the historically described pain is identified. EMERGENCY DEPARTMENT COURSE and DIFFERENTIAL DIAGNOSIS/MDM: Patient was given the following medications: Medications fentaNYL injection 50 mcg (SUBLIMAZE) (50 mcg intravenous Given 12/01/19 1330) NaCl 0.9 % bolus 1,000 mL (0 mL intravenous Stopped 12/01/19 1520) ondansetron (PF) injection 8 mg (ZOFRAN) (8 mg intravenous Given 12/01/19 1328) iohexoL 350 mg iodine/mL solution 100 mL (OMNIPAQUE) (100 mL intravenous Given 12/01/19 1414) sodium chloride 0.9 % injection 10 mL (10 mL intravenous Given 12/01/19 1412) NaCl 0.9 % bolus 100 mL (0 mL intravenous Stopped 12/01/19 1522) MDM: 24-year-old presenting with 10 days of lower abdominal cramping pain, loose stools and now developing and nausea. Unable to find the note from GI, they do not cross into the system. By family's report,had plan for scan, unclear if MRI or CT. Exam is not pointing to a clear etiology, prior scans have not shown any evidence of diverticulitis, but patient does report history of IBS and colitis which yuly the differential. Vital signs are reassuring on arrival. Given the pain is migrated from the left to the right, I think we need to rule out appendicitis. Consideration for other etiologies such as colitis, urinary source, nephrolithiasis. ED Course as of Nov 30 1804 Wed Dec 01, 2019 1311 Ketones, QI(U)(!): >=80 1354 White Blood Cell Count(!): 9.9 1457 IMPRESSION: No definite acute CT abnormalities are identified. No etiology for the historically described pain is identified. 1457 Glucose, P: 104 1457 Bicarbonate, P: 22 1804 I did go over the results. Repeat abdominal exam is without any focal findings as far as tenderness, reporting some cramping type pain. Unable to give a stool sample here but a to go cup and orderwas placed. I think ruling out infectious stool etiology is the next best source, they are working with GI and should continue with this. Start with a bland diet, artery has Zofran at home. At this time I do not feel we meet requirements for empiric antibiotics for colitis. I answered all questions atbedside, strict return precautions and close clinic follow-up. Tolerating p.o. fluids at the time ofdischarge, encouraged to hydrate to clear urine. Final Diagnoses: as of Nov 30 1804 Abdominal Pain Dehydration DISPOSITION/PLAN: PATIENT REFERRED TO: Elsewhere, Pcp In 2 days to follow up stool results, follow up with GI as well DISCHARGE MEDICATIONS: Discharge Medication List as of 12/01/2019 3:13 PM Michelle Castellanos M.D. 12/01/191804 documented in this encounter Plan of Treatment Upcoming Encounters Date Type Specialty Care Team Description 05/23/2022 Telemedicine Endocrinology Arely Bond M.B., B.Ch. [address] [place], [place] [phone] (Wo rk) documented as of this encounter Procedures Procedure Name Priority Date/Time Associated Comments Diagnosis CT ABDOMEN PELVIS RAD - Semiurgent 12/01/2019 2:23 Res ults for WITH IV CONTRAST (Fast; most ED PM CDT this proc edure patients; some are in the inpatients) results section. LIPASE, S/P STAT 12/01/2019 1:26 Results for PM CDT this procedure are in the results section. COMPREHENSIVE STAT 12/01/2019 1:26 Results for METABOLIC PANEL, S/P PM CDT this pr ocedure are in the results section. CBC WITH STAT 12/01/2019 1:21 Results for DIFFERENTIAL, B PM CDT this procedu re are in the results section. URINALYSIS WITH STAT 12/01/2019 12:57 Results for MICROSCOPIC PM CDT this procedure are in the results section. documented in this encounter Results CT Abdomen Pelvis with IV Contrast (12/01/2019 2:23 PM CDT) Anatomical Region Laterality Modality Abdomen, Pelvis, Abdominal RST LOS, Abdominal ARZ LOS, N/A Computed Tomography Abdominal FLA LOS Specimen (Source) Anatomical Collection Method Collection Time Re ceived Time Location / / Volume Laterality 12/01/2019 2:32 PM CDT Impressions 12/01/2019 2:46 PM CDT No definite acute CT abnormalities are identified. No etiology for the historically described pain is identifie d. Narrative 12/01/2019 2:46 PM CDT EXAM: CT ABDOMEN PELVIS WITH IV CONTRAST COMPARISON: November 04, 2018 and earlier FINDINGS: LIVER: ? Neg ative. SPLEEN: ? Negative .. PANCREAS: ? Negative. GALLBLADDER: ?Negative. ADRENAL GLANDS: Negative. KIDNEYS: ?Negative . LYMPH NODES: ? Negative. VESSELS: ? Negative. BOWEL: ? Negati ve. APPENDIX: ? Negative BLADDER AND PELVIS: Testicular prosthese s are demonstrated. BONES: ? Negati ve LUNG BASES: ?Negative. Other: ? Surgical changes in the left inguinal region identified. Procedure Note Pradip Villa M.D. - 12/01/2019Forma tting of this note might be different from the original. EXAM: CT ABDOMEN PELVIS WITH IV CONTRAST COMPARISON: November 04, 2018 and earlier FINDINGS: LIVER: Negative. SPLEEN: Negative.. PANCREAS: Negative. GALLBLADDER: Negative. ADRENAL GLANDS: Negative. KIDNEYS: Negative. LYMPH NODES: Negative. VESSELS: Negative. BOWEL: Negative. APPENDIX: Negative BLADDER AND PELVIS: Testicular prosthese s are demonstrated. BONES: Negative LUNG BASES: Negative. Other: Surgical changes in the left ingu inal region identified. IMPRESSION: No definite acute CT abnormalities are i dentified. No etiology for the historically described pain is identifie d. Michelle Castellanos M.D. IMG CT PROCEDURES Lipase (12/01/2019 1:26 PM CDT) athologist Signature Lipase, P 22 13 - 60 U/L 12/01/2019 1:55 [facility] PM CDT Specimen Anatomical Collection Method Collection Time Receive d Time (Source) Location / / Volume Laterality Blood (Blood, 12/01/2019 1:26 PM 12/01/19 20 1:29 Venous) CDT PM CDT Michelel Castellanos M.D. LAB BLOOD ADD-ON Performing Organization Address City/State/ZIP Code Phon e Number [facility] [address] [place], [place] [address] [facility] [place] [address] [facility] [address] Comprehensive Metabolic Panel (12/01/2019 1:26 PM CDT) athologist Signature Potassium, P 4.2 3.6 - 5.2 12/01/2019 [facility] mmol/L 1:55 PM CDT Sodium, P 138 135 - 145 12/01/2019 [facility] mmol/L 1:55 PM CDT Chloride, P 103 98 - 107 12/01/2019 [facility] mmol/L 1:55 PM CDT Bicarbonate, P 22 22 - 29 12/01/2019 [facility] mmol/L 1:55 PM CDT Anion Gap, P 13 7 - 15 12/01/2019 [facility] 1:55 PM CDT BUN (Blood Urea 17 8 - 24 12/01/2019 [facility] Nitrogen), P mg/dL 1:55 PM CDT Creatinine 1.06 0.74 - 12/01/2019 [facility] 1.35 mg/dL 1:55 PM CDT eGFR-Black/Afric >90 >=60 12/01/2019 [facility] an Citizen Of [place] mL/min/BSA 1:55 PM CDT Comment: ----ADDITIONAL INFORMATION---- Estimated GFR calculated using the 2009 CKD_EPI creatinine equation. eGFR Non-Black/ >90 >=60 mL/min/BSA 12/01/2019 1:55 PM CDT [facility] Comment: ----ADDITIONAL INFORMATION---- Estimated GFR calculated using the 2009 CKD_EPI creatinine equation. Calcium, Total, P 9.8 8.6 - 10.0 mg/dL 12/01/2019 1:55 PM CDT [facility] Glucose, P 104 70 - 140 mg/dL 12/01/2019 1:55 PM CDT N PRG Protein, Total, P 7.7 6.3 - 7.9 g/dL 12/01/2019 1:55 P M CDT [facility] Albumin, P 4.7 3.5 - 5.0 g/dL 12/01/2019 1:55 PM CDT N PRG Aspartate Aminotransferase 43 8 - 48 U/L 12/01/2019 1 :59 PM CDT [facility] (AST), P Alkaline Phosphatase, P 52 40 - 129 U/L 12/01/2019 1: 55 PM CDT [facility] Alanine Aminotransferase (ALT), 47 7 - 55 U/L 020 1:55 PM CDT NPR[facility] P Bilirubin, Total, P 0.7 <=1.2 mg/dL 12/01/2019 1:55 PM CDT [facility] Specimen Anatomical Collection Method Collection Time Receive d Time (Source) Location / / Volume Laterality Blood (Blood, 12/01/2019 1:26 PM 12/01/19 20 1:29 Venous) CDT PM CDT Michelle Castellanos M.D. LAB BLOOD ADD-ON Performing Organization Address City/State/ZIP Code Phon e Number [facility]- [address] [place], [place] [address] [facility] [place] [address] [place] [address] [place] (ABNORMAL) CBC with Differential, Blood (12/01/2019 1:21 PM CDT) [facility] Method Time Signature Hemoglobin 16.1 13.2 - 12/01/2019 NPR[facility] 16.6 g/dL 1:46 PM CDT Hematocrit 48.0 38.3 - 12/01/2019 [facility] 48.6 % 1:46 PM CDT Erythrocytes 5.24 4.35 - 12/01/2019 [facility] 5.65 1:46 PM CDT x10(12)/L MCV 91.6 78.2 - 12/01/2019 [facility] 97.9 fL 1:46 PM CDT RBC Distrib Width 13.0 11.8 - 12/01/2019 [facility] 14.5 % 1:46 PM CDT Platelet Count 250 135 - 317 12/01/2019 [facility] x10(9)/L 1:46 PM CDT Leukocytes 9.9 (H) 3.4 - 9.6 12/01/2019 NPR[facility] x10(9)/L 1:46 PM CDT Neutrophils 7.13 (H) 1.56 - 12/01/2019 NPR[facility] 6.45 1:46 PM CDT x10(9)/L Lymphocytes 1.99 0.95 - 12/01/2019 NPR[facility] 3.07 1:46 PM CDT x10(9)/L Monocytes 0.74 0.26 - 12/01/2019 [facility] 0.81 1:46 PM CDT x10(9)/L Eosinophils 0.01 (L) 0.03 - 12/01/2019 [facility] 0.48 1:46 PM CDT x10(9)/L Basophils 0.03 0.01 - 12/01/2019 NPR[facility] 0.08 1:46 PM CDT x10(9)/L Specimen Anatomical Collection Method Collection Time Receive d Time (Source) Location / / Volume Laterality Blood (Blood, 12/01/2019 1:21 PM 12/01/19 20 1:29 Venous) CDT PM CDT Michelle Castellanos M.D. LAB BLOOD ADD-ON Performing Organization Address City/State/ZIP Code Phon e Number [facility]- [address] [place], [place] [address] [facility] [place] [address] (ABNORMAL) Urinalysis with Microscopic: Urine, Clean Catch (12/01/2019 12:57 PM CDT) P athologist Signature Source Midstream 12/01/2019 [facility] 1:10 PM CDT Clarity Clear Clear 12/01/2019 [facility] 1:10 PM CDT Color Yellow 12/01/2019 NPR[facility] 1:10 PM CDT Comment: ----REFERENCE VALUE---- Colorless Yellow Debby Blood Negative Negative 12/01/2019 1:10 PM CDT NPRG Nitrite Negative Negative 12/01/2019 1:10 PM CDT NPRG Leukocyte Esterase Negative Negative 12/01/2019 1:10 PM CD T NPRG Protein Negative mg/dL 12/01/2019 1:10 PM CDT NPRG Comment: ----REFERENCE VALUE---- Negative Trace Glucose Negative Negative mg/dL 12/01/2019 1:10 PM CDT [facility] Ketones, QI(U) >=80 (A) Negative mg/dL 12/01/2019 1:10 PM C DT NPRG Bilirubin Moderate (A) Negative 12/01/2019 1:10 PM CDT NPR[facility] pH 6.0 5.0 - 8.0 12/01/2019 1:10 PM CDT NPRG Specific [place] >=1.030 1.001 - 1.035 12/01/2019 1:10 PM CDT NPRG Urobilinogen 0.2 0.2 - 1.0 mg/dL 12/01/2019 1:10 PM CD T NPRG White Blood Cells Occ-3 /hpf 12/01/2019 1:10 PM CDT NPRG Comment: ----REFERENCE VALUE---- Males: 0-3 Females: 0-10 Unknown: 0-10 Red Blood Cells Occ-2 0 - 2 /hpf 12/01/2019 1:10 PM CDT NPR[facility] Squamous Cells Occ-3 /hpf 12/01/2019 1:10 PM CDT [facility] Bacteria Present (A) None Seen 12/01/2019 1:10 PM CDT NPRG Specimen Anatomical Collection Method Collection Time Receive d Time (Source) Location / / Volume Laterality Urine (Urine, 12/01/2019 12:57 12/01/2019 Clean Catch) PM CDT 12:59 PM CDT Michelle Castellanos M.D. LAB URINE ORDERABLES Performing Organization Address City/State/ZIP Code Phon e Number [facility]- [address] [place], [place] [address] [place] [address] [place] [address] [facility] [address] documented in this encounter Visit Diagnoses Diagnosis Abdominal Pain - Primary Dehydration documented in this encounter Administered Medications Inactive Administered Medications - up to 3 most recent administrations Medication Order MAR Action Action Date Dose Rate Site fentaNYL injection 50 mcg Given 12/01/2019 1:30 PM CDT 50 mcg (SUBLIMAZE) 50 mcg, intravenous, Once, On Fri12/01/19 at 1311, For 1 dose iohexoL 350 mg iodine/mL solution 100 mL Given 12/01/2019 2:14 P M CDT 100 mL (OMNIPAQUE) 100 mL, intravenous, Once in imaging, contrast, Starting on Fri12/01/19 at 1412, For 1 dose NaCl 0.9 % bolus 1,000 mL New Bag 12/01/2019 1:32 PM CDT 1,000 mL 1000 mL/hr 1,000 mL, intravenous, at 1,000 mL/hr, Administer over 1 Hours, Once, On Fri12/01/19 at 1312, For 1 dose NaCl 0.9 % bolus 100 mL New Bag 12/01/2019 2:15 PM CDT 100 mL 100 mL/hr 100 mL, intravenous, at 100 mL/hr, Administer over 1 Hours, Once in imaging, other, post contrast, Starting on Fri12/01/19 at 1414, For 1 dose ondansetron (PF) injection 8 mg (ZOFRAN) Given 12/01/2019 1:28 PM CDT 8 mg 8 mg, intravenous, Once, On Fri12/01/19 at 1314, For 1 dose sodium chloride 0.9 % injection 10 mL Given 12/01/2019 2:12 PM CDT 10 mL 10 mL, intravenous, Once in imaging, line care, Prior to CT, Starting on Fri12/01/19 at 1414, For 1 dose sodium chloride 0.9 % injection 2-10 mL 2-10 mL, intravenous, As needed, line care, Starting o n Fri12/01/19 at 1307 documented in this encounter Active and Recently Administered Medications Times are shown in CDT. Scheduled Medication Order 11/29/2019 11/30/2019 12/01/2019 fentaNYL injection 50 mcg (SUBLIMAZE) (COMPLETED) 1330 (Given - Provider: Arlen Bledsoe R.N.) 50 mcg, intravenous, Once, On Fri12/01/19 at 1311, For 1 dose NaCl 0.9 % bolus 1,000 mL (COMPLETED) 1332 (New Bag - Provider: Arlen Bledsoe R.N.)1520 (Stopped - Provider: Arlen Bledsoe R.N.) 1,000 mL, intravenous, at 1,000 mL/hr, A dminister over 1 Hours, Once, On Fri12/01/19 at 1312, For 1 dose ondansetron (PF) injection 8 mg (ZOFRAN) (COMPLETED) 1328 (Given - Provider: Arlen Bledsoe R.N.) 8 mg, intravenous, Once, On Fri12/01/19 at 1314, For 1 dose PRN Medication Order 11/29/2019 11/30/2019 12/01/2019 iohexoL 350 mg iodine/mL solution 100 mL (OMNIPAQUE) (COMPLETED) 1414 (Given - Provider: Sonu Crook(R)(CT), R.T.(R) - Comment: [phone]) 100 mL, intravenous, Once in imaging, co ntrast, Starting on Fri12/01/19 at 1412, For 1 dose NaCl 0.9 % bolus 100 mL (COMPLETED) 1415 (New Bag - Provider: Sonu Crook(R)(CT), R.T.(R) - Comment: [phone])1522 (Stopped - Provider: Arlen Bledsoe, R.N.) 100 mL, intravenous, at 100 mL/hr, Admin ister over 1 Hours, Once in imaging, other, post contrast, Starting on Fri12/01/19 at 1414, For 1 dose sodium chloride 0.9 % injection 10 mL (COMPLETED) 1412 (Given - Provider: Sonu Crook(Dom)(CT), Sonu(R)) 10 mL, intravenous, Once in imaging, janel e care, Prior to CT, Starting on Fri12/01/19 at 1414, For 1 dose sodium chloride 0.9 % injection 2-10 mL(Linked Group 1) 2-10 mL, intravenous, As needed, line care, Starting on 11/30 at 1307 Linked Groups Order Group 1: Place peripheral IV: No upper extremity site restrictions (CANCELED) Upper extremity site restriction: No upp er extremity site restrictions
Quantity of PIVs requested: One
STAT, Once, Fri12/01/19 at 1308, For 1 occurrence And sodium chloride 0.9 % injection 2-10 mLJump to med 2-10 mL, intravenous, As needed, line ca re, Starting on Fri12/01/19 at 1307 documented in this encounter Care Teams [employer] As[employer]er Relationship Specialty Start Date End Date Elsewhere, Pcp PCP - General Technical Services Rep 07/01/19 documented as of this encounter
--- OUTSIDE RECORDS SUMMARY | 2022-04-12 08:13 | XMS_ITS | Encounter Summary ---
:1995 Author Organization [facility] Address [address] [place] [address] Care Team Providers Name Role Phone Bella Sears M.D. Primary Care Provider [phone] Reason for Visit Reason Comments Nausea Generalized Body Aches Encounter Details Date Type Department Care Team Description 06/02/2018 Emergency [place] Emergency Paulo Valdes In fection Urinary Tract (Primary Dx); Department Thea Alberts Resistance To Unspecified Antimicrobial Drugs; [address] [place] [address] [place] [address] Personal History Of Sex Reassignment; [place], [place] Migraine [place] [id number] [phone] Social History Tobacco Use Types Packs/Day Years [...] How often do you attend jain or protestant services? Never 03/20/2022 Do you belong to any clubs or organizations such as [employer] 03/20/2022 jain groups, unions, fraternal or athletic [...] or slept in a retirement (including now)? Sex Assigned at Date Recorded Female 03/20/2022 7:54 AM CDT documented as of this encounter Last Filed Vital Signs Vital Sign Reading Time Taken Comments Blood Pressure 128/84 06/02/2018 11:45 AM ELEMENTARY EDUCATION TEACHER Pulse 70 06/02/2018 11:45 AM ELEMENTARY EDUCATION TEACHER Temperature 35.6 ??C (96.1 ??F) 06/02/2018 8:02 AM ELEMENTARY EDUCATION TEACHER Respiratory Rate 16 06/02/2018 8:02 AM ELEMENTARY EDUCATION TEACHER Oxygen Saturation 96% 06/02/2018 11:45 AM ELEMENTARY EDUCATION TEACHER Inhaled Oxygen Concentration - - Weight 81.9 kg (180 lb 8.9 oz) 06/02/2018 8:04 AM ELEMENTARY EDUCATION TEACHER Height 162.6 cm (5' 4) 06/02/2018 8:04 AM ELEMENTARY EDUCATION TEACHER Body Mass Index 30.99 06/02/2018 8:04 AM ELEMENTARY EDUCATION TEACHER documented in this encounter Discharge Instructions AttachmentsThe following attachments cannot be sent through Care Everywhere. Urinary Tract Infection Adult (Hungarian)documented in this encounter Medications at Time of Discharge Medication Sig Dispensed Refills Start Date End Date acetaminophen (TYLENOL) Take 650 mg by 0 03/15/20 16 325 mg tablet mouth. [facility] Prescription Trazapam 15 mg i po 0 6 (Allergy Immunotherapy) daily for sleep montelukast (SINGULAIR) Take 10 mg by mouth. 0 10 mg tablet PARoxetine (PAXIL) 20 mg Take 20 mg by mouth. 0 1 tablet albuterol (PROVENTIL Inhale 2 puffs. 0 12/24/2014 HFA,VENTOLIN HFA) 90 mcg/actuation inhaler diphenhydrAMINE Take 50 mg by mouth. 0 03/30/2013 (BENADRYL) 50 mg capsule naproxen (NAPROSYN) 250 Take 250 mg by 0 10/25/19 13 mg tablet mouth. pirbuterol acetate Inhale 2 puffs as 0 05/21/2011 (MAXAIR AUTOHALER INHL) needed. predniSONE (DELTASONE) Take 40 mg by mouth. 0 20 mg tablet valACYclovir (VALTREX) Take 1 tablet by 0 015 500 mg tablet mouth. acyclovir (ZOVIRAX) 5 % Apply topically. 0 201612/01/2019 ointment oxyCODONE-acetaminophen Take 2 tablets by 6 tablet [...] tablet by 0 201412/01/2019 mg tablet mouth. prochlorperazine Take 1 tablet (10 mg 15 tablet 0 8 06/07/2018 (COMPAZINE) 10 mg tablet total) by mouth 3 (three) times a day as needed for nausea or vomiting (for nasuea or headache) for up to 5 days. cefadroxil (DURICEF) 500 Take 1 capsule (500 20 capsule 0 12/01/2019 mg capsule mg total) by mouth 2 (two) times a day. gabapentin (NEURONTIN) Take 300 mg by mouth 0 12/201703/20/2022 300 mg capsule at bedtime. levoFLOXacin (LEVAQUIN) Take 1 tablet (500 10 tablet 0 10/201712/01/2019 500 mg tablet mg total) by mouth daily. [facility] Prescription [facility] Prescription 0 08/01/2015 03/20/2022 (Allergy Immunotherapy) See Instructions, testoterone--80 mg IM per week--(has been taking past 8 months) traMADol (ULTRAM) 50 mg Take 1 tablet (50 mg 20 tablet 0 03/20/2022 tablet total) by mouth every 4 (four) hours as needed for pain. traZODone (DESYREL) 100 Take 1 tablet by 0 201403/20/2022 mg tablet mouth at bedtime. documented as of this encounter ED Notes Paulo Valdes M.D. - 06/02/2018 8:29 AM CST SUBJECTIVE CHIEF COMPLAINT/REASON FOR VISIT Nausea and Generalized Body Aches HISTORY OF PRESENT ILLNESS Patient brings himself to this emergency department. Not feeling well for a few weeks. Was seen in [place] where I have reviewed those notes. He said he has now moved to [place]. In summary a complex health history having had gender reassignment surgery and a [place] ph[place]us [place] [facility]. On the May 16 emergency department visit a urinary tract infection was discovered on culture that is why the resistant. There is documentation of numerous phone call attempts to contact patient but that was unsuccessful he says he has not taken any antibiotics since then. But as his perception that he does not have any dysuria any thinks he is emptying without difficulty. See the [place] note for details about his surgical history some sutures have been noted at that time. Patient says no drainage now. What he just has is generalized nausea with occasional vomiting feeling weak febrile, some sore throat and some cough. Denies diarrhea denies any rashes REVIEW OF SYSTEMS Constitutional: Positive for chills, fatigue and fever. HENT: Positive for sore throat. Negative for congestion and trouble swallowing. Eyes: Negative for pain and visual disturbance. Respiratory: Negative for cough, chest tightness, shortness of breath and wheezing. Cardiovascular: Negative for chest pain and palpitations. Gastrointestinal: Positive for abdominal pain, nausea and vomiting. Negative for constipation and diarrhea. Endocrine: Negative for polyuria and high blood sugars. Genitourinary: Negative for dysuria, flank pain and testicular pain. Musculoskeletal: Positive for myalgias. Negative for back pain and joint swelling. Skin: Negative for lesions and rash. Allergic/Immunologic: Negative for immunocompromised state. Neurological: Positive for headaches. Negative for syncope and weakness. Psychiatric/Behavioral: Positive for depression. Negative for sleep disturbance and substance abuse. OBJECTIVE Initial Vitals [06/02/18 0802] Temperature Pulse Rate Heart Rate Resp Rate Blood Pressure SpO2 (!) 35.6 ??C 69 -- 16 (!) 133/94 96 % Pain Score 0 - No pain PHYSICAL EXAMINATION Constitutional: He appears well-developed and well-nourished. No distress. HENT: Head: Normocephalic. Mouth/Throat: Oropharynx is clear and moist. Mucous membranes are moist. Eyes: Conjunctivae are normal. Neck: Neck supple. No neck adenopathy. Cardiovascular: Normal rate, regular rhythm and normal heart sounds. Pulses are palpable. Capillary refill: takes less than 3 seconds, Pulmonary/Chest: Effort normal and breath sounds normal. There is normal air entry. No respiratory distress. Air movement is not decreased. Abdominal: Soft. Bowel sounds are normal. He exhibits no distension. There is no tenderness. No hernia. Genitourinary: Genitourinary Comments: There is rolo aj phallus and testicles. Surgical scars at base but I do notsee any angie drainage. No erythema no hernia Musculoskeletal: He exhibits no edema, tenderness or deformity. Neurological: He is alert and oriented to person, place, and time. Skin: Skin is warm, dry and intact. Psychiatric: He has a normal mood and affect. His behavior is normal. Thought content normal. Nursing note and vitals reviewed. ASSESSMENT/PLAN Impression and Plan In summary a complicated the young man with a known untreated resistant urinary tract infection withgeneralized nausea cough fatigue. Bacterial or viral infection of the pelvis abdomen and lungs all remain possibilities. Will start with IV hydration nausea control laboratories urinalysis chest x-ray and then to see 1st decide how to proceed. Update Stock slight elevation of CBC and CRP and WBCs and bacteria on UA consistent with an ongoing urinarytract infection. Presumably this is with the resistant Klebsiella 1st cultured on May 16. Unfortunately there are no oral antibiotic options and the nausea and vague bladder pain are certainly con sistent with an untreated urinary tract infection. He does not appear septic. Because of his complicated surgical history a CT was done to exclude abscess or other fluid collection there is none. Proceeding with IV meropenem based on the 05/16 culture. Update- In discussion with with Dr Sarkar, hospitalist about an need for hospitalization she carefully went over his complex history with me. Noted that on 05/16 the resistant Klebsiella was from a swab of an open wound from his surgery. That is now completely healed there is no evidence of fistula or abscess. As noted he has been following for this in the [facility].. He has had periodic pyuria but today 8 urine cultures have been negative. No evidence of sepsis but he says he now has his typical migraine headache will use Toradol. At this time since there is no evidence of a resistant organism in the urine, and there is no evidence of sepsis, can treat with more typical oral antibiotics with close follow-up. Will put in a request to establish primary care. Bran in the meantime. Occasional use of the Compazine for his nausea and headaches. Return fevers chills abdominal pain. Final Diagnoses: as of Jun 02 1217 Resistance To Unspecified Antimicrobial Drugs Personal History Of Sex Reassignment Infection Urinary Tract Migraine Headache Paulo Valdes M.D. 06/02/18 1218 ENTARY EDUCATION TEACHER Jacqui Johnson R.N. - 06/02/2018 8:04 AM CST 23 year old male admitted to ER with complaints of generalized body aches nausea and chills for past2 weeks. Jacqui Johnson R.N. 06/02/18 0805 ENTARY EDUCATION TEACHER documented in this encounter Plan of Treatment Upcoming Encounters Date Type Specialty Care Team Description 05/23/2022 Telemedicine Endocrinology Arely Bond M.B., B.Ch. [address] [place] [address] [phone] (Wo rk) documented as of this encounter Procedures Procedure Name Priority Date/Time Associated Comments Diagnosis BACTERIA / DONYA STAT 06/02/2018 11:04 Resul ts for CULTURE, BLOOD AM ELEMENTARY EDUCATION TEACHER this procedur e are in the results section. BACTERIA / DONYA STAT 06/02/2018 10:41 Resul ts for CULTURE, BLOOD AM ELEMENTARY EDUCATION TEACHER this procedur e are in the results section. LACTATE, B/P STAT 06/02/2018 10:41 Results for AM ELEMENTARY EDUCATION TEACHER this procedure are in the results section. CT ABDOMEN PELVIS RAD - Semiurgent 06/02/2018 10:04 Re sults for WITH IV CONTRAST (Fast; most ED AM ELEMENTARY EDUCATION TEACHER this proc edure patients; some are in the inpatients) results section. BACTERIAL CULTURE, STAT 06/02/2018 9:45 Result s for AEROBIC + SUSC, AM ELEMENTARY EDUCATION TEACHER this procedu re URINE are in the results section. URINALYSIS WITH STAT 06/02/2018 9:42 Results f or MICROSCOPIC AM ELEMENTARY EDUCATION TEACHER this procedure are in the results section. DX CHEST AP OR PA RAD - Semiurgent 06/02/2018 8:43 Res ults for AND LATERAL 2 VIEWS (Fast; most ED AM ELEMENTARY EDUCATION TEACHER this p rocedure patients; some are in the inpatients) results section. SEDIMENTATION RATE, STAT 06/02/2018 8:33 Resul ts for B AM ELEMENTARY EDUCATION TEACHER this procedure are in the results section. CBC WITHOUT STAT 06/02/2018 8:33 Results for DIFFERENTIAL, B AM ELEMENTARY EDUCATION TEACHER this procedu re are in the results section. C-REACTIVE PROTEIN STAT 06/02/2018 8:33 Result s for (CRP), S/P AM ELEMENTARY EDUCATION TEACHER this procedure are in the results section. LIPASE, S/P STAT 06/02/2018 8:33 Results for AM ELEMENTARY EDUCATION TEACHER this procedure are in the results section. COMPREHENSIVE STAT 06/02/2018 8:33 Results for METABOLIC PANEL, S/P AM ELEMENTARY EDUCATION TEACHER this pr ocedure are in the results section. documented in this encounter Results Bacteria / Donya Culture, Blood #2 (06/02/2018 11:04 AM ELEMENTARY EDUCATION TEACHER) [facility] Method Time Signature Bacteria/Roopa No growth 06/07/2018 [facility] da Culture, after 5 12:02 PM ELEMENTARY EDUCATION TEACHER HEALTH Blood day/s of SYSTEM- incubation. [facility] Specimen (Source) Anatomical Collection Method Collection Time Re ceived Time Location / / Volume Laterality Blood (Blood, 06/02/2018 11:04 06/02/2018 Peripheral Draw) AM ELEMENTARY EDUCATION TEACHER 11:04 AM CS T Comment: Specimen Source Site: Blood Narrative [facility]- [facility] - 06/07/2018 12:02 PM ELEMENTARY EDUCATION TEACHER Specimen Information: Specimen ID: [id number] Specimen Source: Blood, Peripheral Draw Specimen Comment: Specimen Source Site: Blood Specimen Collection Start Date: 018 11:04 AM Specimen Received Date: 06/02/2018 11:0 4 AM Specimen ID: [id number] Specimen Source: Blood, Peripheral Draw Specimen Comment: Specimen Source Site: Blood Specimen Collection Start Date: 018 11:04 AM Specimen Received Date: 06/02/2018 11:0 4 AM Paulo Valdes M.D. LAB MICROBIOLOGY - GENERAL O RDERABLES Performing Organization Address City/[facility]/ZIP Code Phon e Number [address] [address] [facility] Lactate (06/02/2018 10:41 AM ELEMENTARY EDUCATION TEACHER) P athologist Signature Lactate, P 1.0 0.5 - 2.2 06/02/2018 [facility] mmol/L 11:00 AM [facility] Specimen Anatomical Collection Method Collection Time Receive d Time (Source) Location / / Volume Laterality Blood (Blood, 06/02/2018 10:41 06/02/2018 Venous) AM ELEMENTARY EDUCATION TEACHER 10:45 AM ELEMENTARY EDUCATION TEACHER Paulo Valdes M.D. LAB BLOOD NON ADD-ON Performing Organization Address City/[facility]/ZIP Code Phon e Number [address] [address] [facility] Bacteria / Donya Culture, Blood #1 (06/02/2018 10:41 AM ELEMENTARY EDUCATION TEACHER) [facility] Method Time Signature Bacteria/Roopa No growth 06/07/2018 [facility] da Culture, after 5 11:02 AM ELEMENTARY EDUCATION TEACHER HEALTH Blood day/s of SYSTEM- incubation. [facility] Specimen (Source) Anatomical Collection Method Collection Time Re ceived Time Location / / Volume Laterality Blood (Blood, 06/02/2018 10:41 06/02/2018 Peripheral Draw) AM ELEMENTARY EDUCATION TEACHER 10:46 AM CS T Comment: Specimen Source Site: Blood Narrative [facility] - 06/07/2018 11:02 AM ELEMENTARY EDUCATION TEACHER Specimen Information: Specimen ID: [id number] Specimen Source: Blood, Peripheral Draw Specimen Comment: Specimen Source Site: Blood Specimen Collection Start Date: 10:41 AM Specimen Received Date: 06/02/2018 10:4 6 AM Specimen ID: [id number] Specimen Source: Blood, Peripheral Draw Specimen Comment: Specimen Source Site: Blood Specimen Collection Start Date: 018 10:41 AM Specimen Received Date: 06/02/2018 10:4 6 AM Paulo Valdes M.D. LAB MICROBIOLOGY - GENERAL O RDERABLES Performing Organization Address City/State/ZIP Code Phon e Number [facility]- [id number] [address] [place] [facility] [address] Abdomen Pelvis with IV Contrast (06/02/2018 10:04 AM ELEMENTARY EDUCATION TEACHER) Anatomical Region Laterality Modality Abdomen, Pelvis, Abdominal RST LOS, Abdominal ARZ LOS, N/A Computed Tomography Abdominal FLA LOS Specimen (Source) Anatomical Collection Method Collection Time Re ceived Time Location / / Volume Laterality 06/02/2018 10:08 AM ELEMENTARY EDUCATION TEACHER Impressions 06/02/2018 10:24 AM ELEMENTARY EDUCATION TEACHER IMPRESSION: 1. ??Postop changes. 2. ??Negative for abscess. 3. ??Liver lesion. Narrative 06/02/2018 10:24 AM ELEMENTARY EDUCATION TEACHER EXAM: CT ABDOMEN PELVIS WITH IV CONTRAST COMPARISON: CT 11/07/15 FINDINGS: Postop aj phallus and testicl es. Postop hysterectomy. Negative for fluid collection or abscess. Moderately decompressed bladder without wall thickening. Negative bilateral kidneys. No hydronephrosis. Mild diffuse hepatic steatosis. 7 mm hyp odense lesion in the right hepatic dome is indeterminate, though usually benign in the absence of known metastasizing malignancy (series 2 image 32). This is not visible on previous exam. Normal appendix. Small fat-containing um bilical hernia. Anterior abdominal wall infiltration related to iatrogenic injec tions. Otherwise negative. Procedure Note Paulo Eric M.D. - 06/02/2018 EXAM: CT ABDOMEN PELVIS WITH IV CONTRAST COMPARISON: CT 11/07/15 FINDINGS: Postop aj phallus and testicl es. Postop hysterectomy. Negative for fluid collection or abscess. Moderately decompressed bladder without wall thickening. Negative bilateral kidneys. No hydronephrosis. Mild diffuse hepatic steatosis. 7 mm hyp odense lesion in the right hepatic dome is indeterminate, though usually benign in the absence of known metastasizing malignancy (series 2 image 32). This is not visible on previous exam. Normal appendix. Small fat-containing um bilical hernia. Anterior abdominal wall infiltration related to iatrogenic injec tions. Otherwise negative. IMPRESSION: 1. Postop changes. 2. Negative for abscess. 3. Liver lesion. Paulo Valdes M.D. IMG CT PROCEDURES Bacterial Culture, Aerobic + Susc, Urine (06/02/2018 9:45 AM ELEMENTARY EDUCATION TEACHER) Patholo gist Method Time Signature Bacterial Multiple organisms >10,000 cfu/mL present suggesting 06/03/2018 [facility] Culture, probable contamination 10:09 AM HEALTH Aerobic, ELEMENTARY EDUCATION TEACHER SYSTEM- [facility] Urine [facility] Specimen Anatomical Collection Method Collection Time Receive d Time (Source) Location / / Volume Laterality Urine (Urine, 06/02/2018 9:45 AM 06/02/20 18 2:38 Midstream) ELEMENTARY EDUCATION TEACHER PM ELEMENTARY EDUCATION TEACHER Comment: Specimen Source Site: Urine Paulo Valdes M.D. LAB MICROBIOLOGY - GENERAL O RDERABLES Performing Organization Address City/State/ZIP Code Phon e Number [facility] [address] [facility] [address] [facility] (ABNORMAL) Urinalysis with Microscopic (06/02/2018 9:42 AM ELEMENTARY EDUCATION TEACHER) athologist Signature Source Midstream 06/02/2018 [facility] 10:06 AM [facility] Clarity Clear Clear 06/02/2018 [facility] 10:07 AM [facility] Color Yellow 06/02/2018 [facility] 10:07 AM [facility] Comment: ----REFERENCE VALUE---- Colorless Yellow Debby Blood Negative Negative 06/02/2018 10:07 AM [facility] Nitrite Negative Negative 06/02/2018 10:07 AM [facility] charity: water LAB Leukocyte Esterase Trace (A) Negative 06/02/2018 10:07 AM [facility] Protein Negative mg/dL 06/02/2018 10:07 AM [facility] Comment: ----REFERENCE VALUE---- Negative Trace Glucose Negative Negative mg/dL 06/02/2018 10:07 AM [facility] Ketones, QI(U) Negative Negative mg/dL 06/02/2018 10:07 AM [facility] Bilirubin Small (A) Negative 06/02/2018 10:07 AM [facility] pH 5.5 5.0 - 8.0 06/02/2018 10:07 AM [facility] Specific Temple >=1.030 1.001 - 1.035 06/02/2018 10:07 AM [facility] Urobilinogen 0.2 0.2 - 1.0 mg/dL 06/02/2018 10:07 AM [facility] charity: water LAB White Blood Cells 11-20 (A) /hpf 06/02/2018 10:07 AM [facility] charity: water LAB Comment: ----REFERENCE VALUE---- Males: 0-3 Females: 0-10 Unknown: 0-10 Red Blood Cells Occ-2 0 - 2 /hpf 06/02/2018 10:07 AM [facility] Mucus Present /hpf 06/02/2018 10:07 AM [facility] [place] charity: water LAB Squamous Cells 21-30 /hpf 06/02/2018 10:07 AM [facility] Bacteria Present (A) None Seen 06/02/2018 10:07 AM [facility] Specimen Anatomical Collection Method Collection Time Receive d Time (Source) Location / / Volume Laterality Urine (Urine, 06/02/2018 9:42 AM 06/02/20 18 9:45 Midstream) ELEMENTARY EDUCATION TEACHER AM ELEMENTARY EDUCATION TEACHER Paulo Valdes M.D. LAB URINE ORDERABLES Performing Organization Address City/State/ZIP Code Phon e Number [facility]- [address] [place] [address] [facility] DX Chest AP or PA and Lateral 2 Views (06/02/2018 8:43 AM ELEMENTARY EDUCATION TEACHER) Anatomical Region Laterality Modality Chest, Thoracic RST LOS, Thoracic ARZ LOS, Thoracic N/A Digital Radiography FLA LOS Specimen (Source) Anatomical Collection Method Collection Time Re ceived Time Location / / Volume Laterality 06/02/2018 8:46 AM ELEMENTARY EDUCATION TEACHER Impressions 06/02/2018 8:46 AM ELEMENTARY EDUCATION TEACHER IMPRESSION: No pneumonia. Narrative 06/02/2018 8:46 AM ELEMENTARY EDUCATION TEACHER EXAM: DX CHEST AP OR PA AND LATERAL 2 VIEWS COMPARISON: 03/16/2013 FINDINGS: Normal cardiac mediastinal delia houette and pulmonary vasculature. No acute airspace opacity, pleural effusion , or pneumothorax. No acute abnormality in the bones or upper abdomen. Procedure Note Lenny Leiva M.D. - 06/02/2018Formattin g of this note might be different from the original. EXAM: DX CHEST AP OR PA AND LATERAL 2 EWS COMPARISON: 03/16/2013 FINDINGS: Normal cardiac mediastinal delia houette and pulmonary vasculature. No acute airspace opacity, pleural effusion , or pneumothorax. No acute abnormality in the bones or upper abdomen. IMPRESSION: No pneumonia. Paulo Valdes M.D. IMG DIAGNOSTIC IMAGING PROCE DURES (ABNORMAL) CRP (C-Reactive Protein) (06/02/2018 8:33 AM ELEMENTARY EDUCATION TEACHER) P athologist Signature C-Reactive 27.5 (H) <=8.0 mg/L 06/02/2018 [facility] Protein (CRP), 9:07 AM [facility] Specimen Anatomical Collection Method Collection Time Receive d Time (Source) Location / / Volume Laterality Blood (Blood, 06/02/2018 8:33 AM 06/02/20 8:34 Venous) ELEMENTARY EDUCATION TEACHER AM ELEMENTARY EDUCATION TEACHER Paulo Valdes M.D. LAB BLOOD ADD-ON Performing Organization Address City/State/ZIP Code Phon e Number [facility]- [id number] [address] [facility] Sedimentation Rate (06/02/2018 8:33 AM ELEMENTARY EDUCATION TEACHER) Analysis Performed At Patho logist Time Signature Sedimentation 13 0 - 22 06/02/2018 [facility] Rate, B mm/1 h 9:24 AM [facility] Specimen Anatomical Collection Method Collection Time Receive d Time (Source) Location / / Volume Laterality Blood (Blood, 06/02/2018 8:33 AM 06/02/20 8:34 Venous) ELEMENTARY EDUCATION TEACHER AM ELEMENTARY EDUCATION TEACHER Paulo W Lucio M.D. LAB BLOOD ADD-ON Performing Organization Address City/[facility] Phon e Number [address] [address] [facility] (ABNORMAL) CBC without Differential (06/02/2018 8:33 AM ELEMENTARY EDUCATION TEACHER) Patholo gist Method Time Signature Hemoglobin 14.7 13.2 - 06/02/2018 [facility] 16.6 g/dL 8:40 AM [facility] Hematocrit 44.2 38.3 - 06/02/2018 [facility] 48.6 % 8:40 AM [facility] Erythrocytes 4.99 4.35 - 06/02/2018 [facility] 5.65 8:40 AM [facility] x10(12)/L [facility] MCV 88.6 78.2 - 06/02/2018 [facility] 97.9 fL 8:40 AM [facility] charity: water LAB RBC Distrib Width 13.2 11.8 - 06/02/2018 [facility] 14.5 % 8:40 AM [facility] Platelet Count 364 (H) 135 - 317 06/02/2018 [facility] x10(9)/L 8:40 AM [facility] Leukocytes 10.7 (H) 3.4 - 9.6 06/02/2018 [facility] x10(9)/L 8:40 AM [facility] [facility] Specimen Anatomical Collection Method Collection Time Receive d Time (Source) Location / / Volume Laterality Blood (Blood, 06/02/2018 8:33 AM 06/02/20 8:34 Venous) ELEMENTARY EDUCATION TEACHER AM ELEMENTARY EDUCATION TEACHER Paulo Valdes M.D. LAB BLOOD ADD-ON Performing Organization Address [facility] Phon e Number [address] [address] [place] [facility] Lipase (06/02/2018 8:33 AM ELEMENTARY EDUCATION TEACHER) P athologist Signature Lipase, P 36 13 - 60 U/L 06/02/2018 [facility] 9:06 AM [facility] Specimen Anatomical Collection Method Collection Time Receive d Time (Source) Location / / Volume Laterality Blood (Blood, 06/02/2018 8:33 AM 12/18/20 18 8:34 Venous) ELEMENTARY EDUCATION TEACHER AM ELEMENTARY EDUCATION TEACHER Paulo Valdes M.D. LAB BLOOD ADD-ON Performing Organization Address City/State/ZIP Code Phon e Number [facility]- [id number] [address] [place] charity: water LAB (ABNORMAL) Comprehensive Metabolic Panel (06/02/2018 8:[address] [facility]) P athologist Signature Potassium, P 3.7 3.6 - 5.2 06/02/2018 [facility] mmol/L 9:06 AM [facility] [place] charity: water LAB Sodium, P 139 135 - 145 06/02/2018 [facility] mmol/L 9:06 AM [facility] charity: water LAB Chloride, P 100 98 - 107 06/02/2018 [facility] mmol/L 9:06 AM [facility] charity: water LAB Bicarbonate, P 25 22 - 29 06/02/2018 [facility] mmol/L 9:06 AM [facility] [place] charity: water LAB Anion Gap, P 14 7 - 15 06/02/2018 [facility] 9:06 AM [facility] [place] charity: water LAB BUN (Blood Urea 21 8 - 24 06/02/2018 [facility] Nitrogen), P mg/dL 9:06 AM [facility] [place] charity: water LAB Creatinine 0.94 0.74 - 06/02/2018 [facility] 1.35 mg/dL 9:06 AM [facility] [place] charity: water LAB eGFR-Black/Afri >90 >=60 06/02/2018 [facility] can [place] mL/min/BSA 9:06 AM [facility] charity: water LAB Comment: ----ADDITIONAL INFORMATION---- Estimated GFR calculated using the 2009 CKD_EPI creatinine equation. eGFR Non-Black/ >90 >=60 mL/min/BSA 06/02/2018 9:06 AM [facility] [place] [facility] Comment: ----ADDITIONAL INFORMATION---- Estimated GFR calculated using the 2009 CKD_EPI creatinine equation. Calcium, Total, P 9.7 8.6 - 10.0 06/02/2018 9:06 AM [facility] mg/dL [facility] charity: water LAB Glucose, P 140 70 - 140 mg/dL 06/02/2018 9:06 AM [facility] Protein, Total, P 7.6 6.3 - 7.9 g/dL 06/02/2018 9:06 A [facility] Albumin, P 4.5 3.5 - 5.0 g/dL 06/02/2018 9:06 AM [facility] Aspartate 40 8 - 48 U/L 06/02/2018 9:06 AM [facility] Aminotransferase (AST), P [facility] Alkaline Phosphatase, P 93 40 - 129 U/L 06/02/2018 9: 06 AM [facility] Alanine Aminotransferase 71 (H) 7 - 55 U/L 06/02/2018 9:0 6 AM [facility] (ALT), P [facility] Bilirubin, Total, P 0.5 <=1.2 mg/dL 06/02/2018 9:06 AM [facility] Specimen Anatomical Collection Method Collection Time Receive d Time (Source) Location / / Volume Laterality Blood (Blood, 06/02/2018 8:33 AM 06/02/20 18 8:34 Venous) ELEMENTARY EDUCATION TEACHER AM [facility] Paulo Valdes M.D. 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 Personal History Of Sex Reassignment Migraine Headache documented in this encounter Administered Medications Inactive Administered Medications - up to 3 most recent administrations Medication Order MAR Action Action Date Dose Rate Site iohexol (OMNIPAQUE) 300 mg Given 06/02/2018 9:59 AM ELEMENTARY EDUCATION TEACHER 123 mL iodine/mL solution - ADS Override Pull Starting on Fri06/02/18 at 0939, For 1 dose, Created by cabinet override iohexol 300 mg iodine/mL solution 123 mL Given 06/02/2018 9:59 A M ELEMENTARY EDUCATION TEACHER 123 mL (OMNIPAQUE) 123 mL, intravenous, Once in imaging, contrast, Starting on Fri06/02/18 at 0931, For 1 dose, If administered oral then dilute in 900 mL water ketorolac injection 15 mg (TORADOL) Given 06/02/2018 12:14 PM ELEMENTARY EDUCATION TEACHER 15 mg 15 mg, intravenous, Once, On Fri06/02/18 at 1209, For 1 dose, Adult IV push rate: Over 15 seconds. Peds IV push rate: Over 1 minute. 60 mg dose only for IM, not recommended for IV. meropenem 1 g in NaCl 0.9% IVPB New Bag 06/02/2018 11:02 AM ELEMENTARY EDUCATION TEACHER 1 g 100 mL/hr (MERREM) 1 g, intravenous, at 100 mL/hr, Administer over 30 Minutes, Every 6 hours, First dose on Fri06/02/18 at 1023, Mini-Bag Plus bag, Restriction Criteria (Pharmacy will review and approve if criteria met): Gram negative organism resistant to other options, Drug Monitoring Program: Pharmacist to adjust medication dosing based on indication and drug clearance factors., Indications: Upper UTI (pyelonephritis) NaCl 0.9 % bolus 500 mL New Bag 06/02/2018 8:42 AM ELEMENTARY EDUCATION TEACHER 500 mL 500 mL/hr 500 mL, intravenous, at 500 mL/hr, Administer over 1 Hours, Once, On Fri06/02/18 at 0827, For 1 dose NaCl 0.9 % bolus 500 mL New Bag 06/02/2018 9:08 AM ELEMENTARY EDUCATION TEACHER 500 mL 500 mL/hr 500 mL, intravenous, at 500 mL/hr, Administer over 1 Hours, Once, On Fri06/02/18 at 0856, For 1 dose NaCl 0.9% infusion New Bag 06/02/2018 9:38 AM ELEMENTARY EDUCATION TEACHER 125 mL/hr 125 mL/hr 125 mL/hr, intravenous, Continuous, Starting on Fri06/02/18 at 0827 ondansetron (PF) injection 4 mg (ZOFRAN) Given 06/02/2018 8:43 AM ELEMENTARY EDUCATION TEACHER 4 mg 4 mg, intravenous, Once, On Fri06/02/18 at 0828, For 1 dose sodium chloride 0.9 % flush 81 mL Given 06/02/2018 10:00 AM ELEMENTARY EDUCATION TEACHER 81 mL 81 mL, intravenous, Once, On Fri06/02/18 at 0932, For 1 dose sodium chloride 0.9 % injection 10 mL 10 mL, intravenous, As needed, line care, Starting on Fri06/02/18 at 0823, Peripheral Intravenous Catheter and Rapid Infusion Cat heter, prior to blood sampling, post blood transfusion or post blood samplin g sodium chloride 0.9 % injection 10 mL Given 06/02/2018 10:00 AM ELEMENTARY EDUCATION TEACHER 10 mL 10 mL, intravenous, Once, On Fri06/02/18 at 0932, For 1 dose sodium chloride 0.9 % injection 3 mL 3 mL, intravenous, As needed, line care, Starting on Fri06/02/18 at 0823, Prior to and following infusion and between multi ple consecutive infusions: sodium chloride 0.9 % injection sodium chloride 0.9 % injection 3 mL 3 mL, intravenous, Every 12 hours schedu led, First dose on Fri06/02/18 at 0900, Peripheral Intravenous Catheter and Rapi d Infusion Catheter, when no infusion to maintain patency documented in this encounter Active and Recently Administered Medications Times are shown in ELEMENTARY EDUCATION TEACHER. Scheduled Medication Order 05/31/2018 06/01/2018 06/02/2018 ketorolac injection 15 mg (TORADOL) (COMPLETED) 1214 (Given - Provider: Jacqui Johnson RAdebayo) 15 mg, intravenous, Once, On Fri 8 at 1209, For 1 dose, Adult IV push rate: Over 15 seconds. Peds IV push rate: Over 1 minute. 60 mg dose only for IM, not recommended for IV. meropenem 1 g in NaCl 0.9% IVPB (MERREM) 1102 (New Bag - Provider: Jacqui Johnson RWilla.)1132 (Due: Stopped - Provider: Jacqui Johnson R.N.)1410 (Stopped - Provider: Jacqui Johnson RDarioN.) 1 g, intravenous, at 100 mL/hr, Administ er over 30 Minutes, Every 6 hours, First dose on Fri06/02/18 at 1023, Mini-Bag Plus bag, Restriction Criteria (Pharmacy will review and approve if criteria met): Gram negative organism resistant to oth er options, Drug Monitoring Program: Pharmacist to adjust medication dosing based on indication and drug clearance factors., Indications: Upper UTI (pyelonephritis) NaCl 0.9 % bolus 500 mL (COMPLETED) 0842 (New Bag - Provider: Jacqui Johnson RDarioN.)0908 (Stopped - Provider: Sylvie VelázquezNDario) 500 mL, intravenous, at 500 mL/hr, Admin ister over 1 Hours, Once, On Fri06/02/18 at 0827, For 1 dose NaCl 0.9 % bolus 500 mL (COMPLETED) 0908 (New Bag - Provider: Jacqui Johnson R.N.)0938 (Stopped - Provider: Jacqui Johnson R.N.) 500 mL, intravenous, at 500 mL/hr, Admin ister over 1 Hours, Once, On Fri06/02/18 at 0856, For 1 dose ondansetron (PF) injection 4 mg (ZOFRAN) (COMPLETED) 0843 (Given - Provider: Jacqui Johnson R.N.) 4 mg, intravenous, Once, On Fri06/02/18 at 0828, For 1 dose sodium chloride 0.9 % flush 81 mL (COMPLETED) 1000 (Given - Provider: Sonu Reddy(R) - Comment: Lot #[id number]) 81 mL, intravenous, Once, On Fri06/02/18 at 0932, For 1 dose sodium chloride 0.9 % injection 10 mL (COMPLETED) 1000 (Given - Provider: Sonu Reddy(R) - Comment: Lot #[id number]) 10 mL, intravenous, Once, On Fri06/02/18 at 0932, For 1 dose sodium chloride 0.9 % injection 3 mL 0900 (Due) 3 mL, intravenous, Every 12 hours schedu led, First dose on Fri06/02/18 at 0900, Peripheral Intravenous Catheter and Rapid Infusion Catheter, when no infusion to maintain patency Continuous Medication Order 05/31/2018 06/01/2018 06/02/2018 NaCl 0.9% infusion 0938 (New Bag - Provider: Jacqui Johnson R.N.)1218 (Stopped - Provider: Jacqui Johnson R.N.) 125 mL/hr, intravenous, Continuous, Starting on Fri06/02/18 at 0827 PRN Medication Order 05/31/2018 06/01/2018 06/02/2018 iohexol 300 mg iodine/mL solution 123 mL (OMNIPAQUE) (COMPLETED) 0959 (Given - Provider: Sonu Reddy(R) - Comment: Lot #[id number]) 123 mL, intravenous, Once in imaging, co ntrast, Starting on Fri06/02/18 at 0931, For 1 dose, If administered oral then dilute in 900 mL water sodium chloride 0.9 % injection 10 mL 10 mL, intravenous, As needed, line care , Starting on Fri06/02/18 at 0823, Peripheral Intravenous Catheter and Rapid Infusion Catheter, prior to blood sampling, post blood transfusion or post blood sampling sodium chloride 0.9 % injection 3 mL 3 mL, intravenous, As needed, line care, Starting on Fri06/02/18 at 0823, Prior to and following infusion and between multiple consecutive infusions: sodium chloride 0.9 % injection No Frequency Medication Order 05/31/2018 06/01/2018 06/02/2018 iohexol (OMNIPAQUE) 300 mg iodine/mL solution - ADS Override Pul l (COMPLETED) 0959 (Given - Provider: Sonu Reddy(R) - Comment: Lot #[id number]) Starting on Fri06/02/18 at 0939, For 1 dose, Created by cabinet override documented in this encounter Care Teams Handle Sewer Relationship Specialty Start Date End Date Bella Sears M.D. PCP - General 11/28/16 06/30/19 [address] [place] [address] documented as of this encounter
--- OUTSIDE RECORDS SUMMARY | 2022-04-12 08:13 | XMS_ITS | Encounter Summary ---
:1995 Author Organization [facility] Address [address] [place] [address] Care Team Providers Name Role Phone Bella Sears M.D. Primary Care Provider [phone] Reason for Visit Reason Comments Abdominal Pain Since Friday abdominal pain with diarrhea. Today feels more gassy. Encounter Details Date Type Department Care Team Description 11/01/2018 [place] Dalton Wallace, Gastroesop hageal Reflux Emergency Department P.A.-C. Disease (Primary Dx) [address] [address] [place], [place] [phone] [id number] Social History Tobacco Use Types Packs/Day [...] 03/20/2022 relatives? How often do you attend evangelical or hoahaoism services? Never 03/20/2022 Do you belong to any clubs or organizations such as Vandana 03/20/2022 evangelical groups, unions, fraternal or athletic groups, or [...] place to sleep or slept in a penitentiary (including now)? Sex Assigned at Date Recorded Female 03/20/2022 7:54 AM CDT documented as of this encounter Last Filed Vital Signs Vital Sign Reading Time Taken Comments Blood Pressure 132/98 11/01/2018 6:16 PM CDT Pulse 69 11/01/2018 6:16 PM CDT Temperature 36.4 ??C (97.5 ??F) 11/01/2018 6:16 PM CDT Respiratory Rate 20 11/01/2018 6:16 PM CDT Oxygen Saturation 96% 11/01/2018 6:16 PM CDT Inhaled Oxygen Concentration - - Weight 88.2 kg (194 lb 7.1 oz) 11/01/2018 6:17 PM CDT Height - - Body Mass Index 33.38 06/02/2018 8:04 AM PSYCHODRAMATIST documented in this encounter Discharge Instructions AttachmentsThe following attachments cannot be sent through Care Everywhere. Gastritis Adult (Serbian)documented in this encounter Medications at Time of Discharge Medication Sig Dispensed Refills Start Date End Date acetaminophen (TYLENOL) Take 650 mg by 0 03/15/20 16 325 mg tablet mouth. albuterol (PROVENTIL Inhale 2 puffs. 0 12/24/2014 HFA,VENTOLIN HFA) 90 mcg/actuation inhaler cholecalciferol (VITAMIN Take 1 tablet by 0 [...] by 0 015 500 mg tablet mouth. carbamide peroxide Administer 5 drops 30 mL [...] total) by mouth every 6 (six) hours. acyclovir (ZOVIRAX) 5 % Apply topically. 0 201612/01/2019 ointment cefadroxil (DURICEF) 500 Take 1 capsule (500 20 capsule 0 12/01/2019 mg capsule mg total) by mouth 2 (two) times a day. gabapentin (NEURONTIN) Take 300 mg by mouth 0 12/201703/20/2022 300 mg capsule at bedtime. levoFLOXacin (LEVAQUIN) Take 1 tablet (500 10 tablet 0 10/201712/01/2019 500 mg tablet mg total) by mouth daily. [facility] [place]isc Prescription 0 08/01/2015 03/20/2022 (Allergy Immunotherapy) See [...] encounter ED Notes Dalton Wallace P.A.-C. - 11/01/2018 6:25 PM CDT SUBJECTIVE CHIEF COMPLAINT/REASON FOR VISIT Abdominal Pain (Since Friday abdominal pain with diarrhea. Today feels more gassy. ) HISTORY OF PRESENT ILLNESS Patient presents to the ER with complaints of GI upset after eating meals. He states he has had history of similar episodes from the time he was 14 years old. At that time it was associated with emotional distress. He denies vomiting or weight change. He does acknowledge some loose stools. Denies blood in stool. States that he notices a burning sensation and points to the epigastrium as the source ofthe pain. Does seem to be worse with spicy foods. He has not tried any medications to help with this. Nothing else seems to make the symptoms better or worse. REVIEW OF SYSTEMS Constitutional: Negative for chills and fever. HENT: Negative for ear pain, rhinorrhea and sore throat. Eyes: Negative for visual disturbance. Respiratory: Negative for shortness of breath and wheezing. Cardiovascular: Negative for chest pain and palpitations. Gastrointestinal: Positive for diarrhea. Negative for abdominal pain, blood in stool, hematemesis, rectal pain and vomiting. Genitourinary: Negative for dysuria and frequency. Musculoskeletal: Negative for neck pain. Skin: Negative for rash. Neurological: Negative for weakness and headaches. All other systems reviewed and are negative. OBJECTIVE Initial Vitals [11/01/18 1816] Temperature Pulse Rate Heart Rate Resp Rate Blood Pressure SpO2 36.4 ??C 69 -- 20 (!) 132/98 96 % Pain Score -- PHYSICAL EXAMINATION Constitutional: He appears well-developed and [...] is normal air entry. Abdominal: Soft. Normal appearance, bowel sounds are normal and non-distended. There is no hepatosplenomegaly. There is no tenderness. There is no rigidity, no rebound, no guarding, no CVA tenderness, no tenderness at McBurney's point, negative Villa's sign, no [place] sign, no Psoas sign and no Rovsing's sign. Neurological: He is alert and oriented to person, place, and time. Skin: Skin is warm. No rash noted. Nursing note and vitals reviewed. ASSESSMENT/PLAN Impression and Plan Patient appears well. Abdominal exam is benign. Patient's history is consistent with GERD and possible gastritis. Diet changes, omeprazole, Carafate. Encouraged patient to follow up with PCP this week to discuss success with these medications and diet changes and assess the need for further testing including scope and biopsy. Patient is encouraged to return to the ER if new symptoms develop current symptoms worsened symptoms fail to improve or patient becomes concerned. States relief with medications in the emergency department.. Reviewed and summarized previous medical records including: Documentation from previous visits. Final Diagnoses: as of Nov 02 1827 Gastroesophageal Reflux Disease Dalton Wallace P.A.-C. 11/01/181827 documented in this encounter Plan of Treatment Upcoming Encounters Date Type Specialty Care Team Description 05/23/2022 Telemedicine Endocrinology Arely Bond M.B., B.Ch. [address] [place] [phone] (Wo rk) documented as of this encounter Visit Diagnoses Diagnosis Gastroesophageal Reflux Disease - Primar y documented in this encounter Administered Medications Inactive Administered Medications - up to 3 most recent administrations Medication Order MAR Action Action Date Dose Rate Site pantoprazole DR tablet 40 mg Given 11/01/2018 6:29 PM CDT 40 mg (PROTONIX) 40 mg, oral, Once, On 11/01/18 at 1824, For 1 dose, pantoprazole 40 mg oral daily was interchanged for omeprazole 20 or 40 mg oral daily Swallow whole. Do NOT crush, chew, or split tablet. sucralfate tablet 1 g (CARAFATE) Given 11/01/2018 6:29 PM CDT 1 g 1 g, oral, One-Time, one time, Starting on 11/01/18 at 1821, For 1 dose, Administer on an empty stomach (1 hour before or 2 hours after eating). documented in this encounter Active and Recently Administered Medications Times are shown in CDT. Scheduled Medication Order 10/30/2018 10/31/2018 11/01/[address] tablet 40 mg (PROTONIX) (COMPLETED) 1828 (Given - Provider: Lorrie Bower R.N.) 40 mg, oral, Once, On 11/01/18 at 182 4, For 1 dose, pantoprazole 40 mg oral daily was interchanged for omeprazole 20 or 40 mg oral daily Swallow whole. Do NOT crush, chew, or split tablet. PRN Medication Order 10/30/2018 10/31/2018 11/01/2018 sucralfate tablet 1 g (CARAFATE) (COMPLETED) 1828 (Given - Provider: Lorrie Bower R.N.) 1 g, oral, One-Time, one time, Starting on 11/01/18 at 1821, For 1 dose, Administer on an empty stomach (1 hour before or 2 hours after eating). documented in this encounter Care Teams Charge Entry Relationship Specialty Start Date End Date Bella Sears M.D. PCP - General 11/28/16 06/30/19 [address] [place] [address] documented as of this encounter
--- OUTSIDE RECORDS SUMMARY | 2022-04-12 08:13 | XMS_ITS | Encounter Summary ---
:1995 Author Organization [facility] Address [address] [place] [address] Care Team Providers Name Role Phone Bella Sears M.D. Primary Care Provider [phone] Encounter Details Date Type Department Care Team Description 11/07/2018 Nurse Triage Department of [facility] Anthony angie Chin, RDarioNDario Medicine, [facility], [place], [place] [address] [place] [address] Social History Tobacco Use Types Packs/Day Years [...] 03/20/2022 relatives? How often do you attend buddhism or evangelical services? Never 03/20/2022 Do you belong to any clubs or organizations such as No 03/20/2022 buddhism groups, unions, fraternal or athletic groups, or [...] place to sleep or slept in a [facility] (including now)? Sex Assigned at Date Recorded Female 03/20/2022 7:54 AM CDT documented as of this encounter Miscellaneous Notes Telephone Encounter - Daina Cruz, RDarioN. - 11/07/2018 9:24 AM CDT Patient is calling after being seen in ER 11/01/18 and 11/04/18 for abdominal pain. All tests have come back clear. Patient does not feel like the providers are listening to his complaints. Patient reports he is being told it is constipation but patient does not agree. Patient was advised to follow up with PCP but has declined this option. I did explain if he felt he needed a referral to GI, which he does, he would need to see PCP for the referral. Patient report pain has not gotten any better with treatment plan. Discussed calling patient services on Friday but in the meantime if he feels he needs to be seen again he is certainly free to go to another ER for further evaluation. Patient agrees to this plan. Patient refuses to go back to [facility]. No further RN action needed at this time. documented in this encounter Plan of Treatment Upcoming Encounters Date Type Specialty Care Team Description 05/23/2022 Telemedicine Endocrinology Arely Bond M.B., B.Ch. [address] [place], [place] [phone] (Wo rk) documented as of this encounter Visit Diagnoses Not on filedocumented in this encounter Care Teams Edge Drummer Relationship Specialty Start Date End Date Bella Sears M.D. PCP - General 11/28/16 06/30/19 [address] [place] [address] documented as of this encounter
--- OUTSIDE RECORDS SUMMARY | 2022-04-12 08:13 | XMS_ITS | Encounter Summary ---
:1995 Author Organization [facility] Address [address] [place] [address] Care Team Providers Name Role Phone Elsewhere, Pcp Primary Care Provider Unavailable Reason for Visit Reason Comments Ankle Pain Patient presents to ED for e valuation of ankle pain after rolling his ankle on on a rock walkway. This happened just prior to arrival, he has not taken any OTC meds prior to arrival, ice application with minimal relief. Encounter Details Date Type Department Care Team Description 11/28/2019 Emergency [place] [facility] Sofiya Caraballo D.O. Sprain Ankle Initial Department [address] [facility] Left (Primary Dx) [address] [place] [id number] [phone] Social History Tobacco Use Types Packs/Day Years [...] 03/20/2022 relatives? How often do you attend druze or islam services? Never 03/20/2022 Do you belong to any clubs or organizations such as No 03/20/2022 druze groups, unions, fraternal or athletic groups, or [...] or slept in a custodial (including now)? Sex Assigned at Date Recorded Female 03/20/2022 7:54 AM CDT documented as of this encounter Last Filed Vital Signs Vital Sign Reading Time Taken Comments Blood Pressure 141/95 11/28/2019 12:41 AM CDT Pulse 104 11/28/2019 12:41 AM CDT Temperature 37.4 ??C (99.3 ??F) 11/28/2019 12:41 AM CDT Respiratory Rate 18 11/28/2019 12:41 AM CDT Oxygen Saturation 96% 11/28/2019 12:41 AM CDT Inhaled Oxygen Concentration - - Weight - - Height 162.6 cm (5' 4) 11/28/2019 12:37 AM CDT Body Mass Index - - documented in this encounter Discharge Instructions Discharge InstructionsSofiya Caraballo D.O. - 11/28/2019 1:40 AM CDT Take Tylenol or ibuprofen every 6 hours if needed for pain. Follow RICE therapy as discussed. RICE THERAPY Rest, Ice, Compression, Elevation Apply a compressive DANI bandage. Rest and elevate the affected painful area. Apply cold compresses intermittently as needed. As pain recedes, begin normal activities slowly as tolerated. Follow up with primary care in 5-7 days for reevaluation if symptoms are not improving. AttachmentsThe following attachments cannot be sent through Care Everywhere. Ankle Sprain ([place])Elastic Bandage and RICE Therapy ([place])documented in this encounter Medications at Time of [...] mouth. 0 03/30/2013 (BENADRYL) 50 mg capsule Mis Prescription Trazapam 15 mg i po 0 6 (Allergy Immunotherapy) daily for sleep montelukast (SINGULAIR) Take 10 mg by mouth. 0 10 mg tablet naproxen (NAPROSYN) 250 Take 250 mg by 0 10/25/19 13 mg tablet mouth. ondansetron ODT 4 mg. 0 02/25/2019 (ZOFRAN-ODT) [...] tablet ibuprofen (ADVIL,MOTRIN) Take 400 mg by 0 020 03/20/2022 400 mg tablet mouth. levoFLOXacin (LEVAQUIN) Take 1 tablet (500 10 tablet 0 10/201712/01/2019 500 mg tablet mg total) by mouth daily. [facility] Prescription [facility] Prescription 0 08/01/2015 03/20/2022 (Allergy Immunotherapy) See [...] documented as of this encounter ED Notes Sofiya Caraballo D.O. - 11/28/2019 1:41 AM CDT [facility] EMERGENCY DEPARTMENT ENCOUNTER Patient Name: Pablo Chakraborty Birthdate 1995 Date of evaluation: 11/28/2019 Provider: Sofiya Caraballo D.O. PCP: Primary Care Physician SUBJECTIVE CHIEF COMPLAINT/REASON FOR VISIT Ankle Pain (Patient presents to ED for evaluation of ankle pain after rolling his ankle on on a rockwalkway. This happened just prior to arrival, he has not taken any OTC meds prior to arrival, ice application with minimal relief.) HISTORY OF PRESENT ILLNESS Pablo Chakraborty is a 24 y.o. adult who presents to the emergency department for evaluation of left lateral ankle pain and swelling. Just prior to arrival he was walking on a rock walkway and sustained an inversion injury with sudden onset of lateral pain and swelling. No pain medications taken prior to arrival. He did apply ice which seems to be helping. Denies pain or injury elsewhere. REVIEW OF SYSTEMS Skin: No abrasion or laceration Hematologic: Negative for bruises or bleeds easily. Musculoskeletal: Positive for joint swelling (Left ankle). Neurological: No weakness or numbness MEDICAL HISTORY Past Medical History: Diagnosis Date ??? Acne Vulgaris ??? Autism Spectrum Disorder (HCC) Asperger traits ??? Depression/Karla/Bipolar NOS ??? Dysphoria Gender Adolescent Or Adult ??? Herpes Simplex Genital Recurrent ??? Hormone Replacement Therapy 03/2015 ??? Hyperlipidemia ??? Migraine Headache SOCIAL HISTORY Social History Tobacco Use ??? Smoking status: Current Some Day Smoker ??? Smokeless tobacco: Never Used Substance Use Topics ??? Alcohol use: Yes Comment: occasional ??? Drug use: Yes Types: Marijuana Comment: occasional OBJECTIVE VITAL SIGNS BP (!) 141/95 (BP Location: Left arm, Patient Position: Sitting) Pulse 104 Temp 37.4 ??C (Temporal) Resp 18 Ht 162.6 cm SpO2 96% BMI 33.49 kg/m?? PHYSICAL EXAMINATION Vitals signs and nursing note reviewed. HENT Head: Normocephalic. Neck Musculoskeletal: Neck supple. Cardiovascular Rate and Rhythm: Normal rate. Pulmonary Effort: Pulmonary effort is normal. Musculoskeletal Comments: Left lateral ankle with mild swelling and faint bruising over the lateral malleolus. No laceration or abrasion. No tenderness along the fifth metatarsal. No tenderness along the dorsum of the foot or the proximal fibula. Increased pain with plantar flexion and dorsiflexion. Distal capillaryrefill is less than 2 seconds in all 5 toes. 2+ DP and PT pulses. Distal sensation intact to light touch. Skin General: Skin is warm and dry. Capillary Refill: Capillary refill takes less than 2 seconds. Neurological Mental Status: He is alert and oriented to person, place, and time. Sensory: No sensory deficit. Motor: No weakness. Psychiatric Behavior: Behavior is cooperative. DIAGNOSTICS RADIOLOGY: DX Ankle Left 3+ Views ED Interpretation No fracture visualized. EMERGENCY DEPARTMENT COURSE and DIFFERENTIAL DIAGNOSIS/MDM: Patient was given the following medications: Medications naproxen tablet 500 mg (NAPROSYN) (500 mg oral Given 11/28/19 0132) MDM: Patient with left lateral ankle pain, swelling, and bruising after sustaining an inversion injury just prior to arrival. He is neurovascularly intact. X-ray does not reveal any evidence of fracture. I placed an Dani wrap and discussed rice therapy. He was given naproxen for pain and instructed to follow up with primary care in 5-7 days for re-evaluation if symptoms are not improving. FINAL IMPRESSION: 1. Sprain Ankle Initial Left DISPOSITION/PLAN: PATIENT REFERRED TO: [facility] [address] [facility] [phone] , follow up with primary care in 5-7 days for reevaluation, if not improving. Sofiya Caraballo D.O. Sofiya Caraballo D.O. 11/28/19 0156 documented in this encounter Plan of Treatment Upcoming Encounters Date Type Specialty Care Team Description 05/23/2022 Telemedicine Endocrinology Arely Bond M.B., B.Ch. [address] [place] [address] [phone] (Wo rk) documented as of this encounter Procedures Procedure Name Priority Date/Time Associated Comments Diagnosis DX ANKLE LEFT 3+ RAD - Semiurgent 11/28/2019 1:19 Resu lts for this VIEWS (Fast; most ED AM CDT procedure are in patients; some the results inpatients) section. documented in this encounter Results DX Ankle Left 3+ Views (11/28/2019 1:19 AM CDT) Anatomical Region Laterality Modality Lower Extremity, Ankle, Musculoskeletal RST LOS, Left Digital Radiography Musculoskeletal ARZ LOS, Muskuloskeletal FLA LOS Specimen (Source) Anatomical Collection Method Collection Time Re ceived Time Location / / Volume Laterality 11/28/2019 8:54 AM CDT Impressions 11/28/2019 8:56 AM CDT Soft tissue swelling overlying the left lateral malleolus without evidence of underlying fracture or malal ignment. Narrative 11/28/2019 8:56 AM CDT EXAM: DX ANKLE LEFT 3+ VIEWS COMPARISON: None FINDINGS: Soft tissue swelling overlying the left lateral malleolus without evidence of underlying fracture or malal ignment. Ankle mortise and talar dome appear intact. No radiopaque foreign bod y identified. No acute osseous abnormality identified. Procedure Note Pablo Chilel M.D. - 11/28/2019For matting of this note might be different from the original. EXAM: DX ANKLE LEFT 3+ VIEWS COMPARISON: None FINDINGS: Soft tissue swelling overlying the left lateral malleolus without evidence of underlying fracture or malal ignment. Ankle mortise and talar dome appear intact. No radiopaque foreign bod y identified. No acute osseous abnormality identified. IMPRESSION: Soft tissue swelling overlying the left lateral malleolus without evidence of underlying fracture or malal ignment. Sofiya OKEEFE [facility] PROCE DURSHIRA documented in this encounter Visit Diagnoses Diagnosis Sprain Ankle Initial Left - Primary documented in this encounter Administered Medications Inactive Administered Medications - up to 3 most recent administrations Medication Order MAR Action Action Date Dose Rate Site naproxen tablet 500 mg (NAPROSYN) Given 11/28/2019 1:32 AM CDT 500 mg 500 mg, oral, Once, On 11/28/19 at 0056, For 1 dose documented in this encounter Active and Recently Administered Medications Times are shown in CDT. Scheduled Medication Order 11/26/2019 11/27/2019 11/28/2019 naproxen tablet 500 mg (NAPROSYN) (COMPLETED) 0132 (Given - Provider: Lluvia Alcantara R.N.) 500 mg, oral, Once, On 11/28/19 at 0056, For 1 dose documented in this encounter Care Teams Sas Bi Developer Relationship Specialty Start Date End Date Elsewhere, Pcp PCP - General Punch Press Operator 07/01/19 documented as of this encounter
--- OUTSIDE RECORDS SUMMARY | 2022-04-12 08:13 | XMS_ITS | Encounter Summary ---
:1995 Author Organization [facility] Address [address] [place] [address] Care Team Providers Name Role Phone Bella Sears M.D. Primary Care Provider [phone] Reason for Visit Reason Comments Urinary Frequency Patient presents to ED with complaints of urinary s/s that have been present for approx 1 we ek, symptoms have intensified over the last 2 days with urgency and redness at suprapubic site, patient has also stated he has been having an increase in bowel movements as well. Encounter Details Date Type Department Care Team Description 04/19/2018 - Emergency [place] [facility] Karla, [place] Infec tion Urinary 04/20/2018 Department L, D.O. Tract (Primary Dx) [address] [place] [id number] Social History Tobacco Use Types Packs/Day [...] 03/20/2022 relatives? How often do you attend anabaptist or adventist services? Never 03/20/2022 Do you belong to any clubs or organizations such as No 03/20/2022 anabaptist groups, unions, fraternal or athletic groups, or [...] place to sleep or slept in a fdc (including now)? Sex Assigned at Date Recorded Female 03/20/2022 7:54 AM CDT documented as of this encounter Last Filed Vital Signs Vital Sign Reading Time Taken Comments Blood Pressure 125/88 04/20/2018 12:45 AM SPANISH LANGUAGE LECTURER Pulse 80 04/20/2018 12:45 AM SPANISH LANGUAGE LECTURER Temperature 36.8 ??C (98.2 ??F) 04/20/2018 12:45 AM SPANISH LANGUAGE LECTURER Respiratory Rate 16 04/20/2018 12:45 AM SPANISH LANGUAGE LECTURER Oxygen Saturation 97% 04/19/2018 11:22 PM SPANISH LANGUAGE LECTURER Inhaled Oxygen Concentration - - Weight - - Height 162.6 cm (5' 4) 04/19/2018 11:24 PM SPANISH LANGUAGE LECTURER Body Mass Index - - documented in this encounter Discharge Instructions Discharge InstructionsBuGeorgia azul D.O. - 04/20/2018 12:14 AM CST After you finish your antibiotics, you should follow up for a repeat urine test to ensure the infection is gone. We will call you if what is growing in your urine isn't covered by the antibiotic you are taking. For redness streaking from the wound, vomiting, inability to keep down your antibiotic, pain out of control at home or fever, return to the ER. ISH LANGUAGE LECTURER documented in this encounter Medications at Time of Discharge Medication Sig Dispensed Refills Start Date End Date pirbuterol acetate Inhale 2 puffs as 0 05/21/2011 (MAXAIR AUTOHALER INHL) needed. acetaminophen (TYLENOL) Take 650 mg by mouth. 0 0 03/15/2016 325 mg tablet albuterol (PROVENTIL Inhale 2 puffs. 0 12/24/2014 HFA,VENTOLIN HFA) 90 mcg/actuation inhaler diphenhydrAMINE Take 50 mg by mouth. 0 03/30/2013 (BENADRYL) 50 mg capsule [facility] Prescription Trazapam 15 mg i po 0 6 (Allergy Immunotherapy) daily for sleep montelukast (SINGULAIR) Take 10 mg by mouth. 0 10 mg tablet naproxen (NAPROSYN) 250 Take 250 mg by mouth. 0 0 10/24/2012 mg tablet PARoxetine (PAXIL) 20 mg Take 20 mg by mouth. 0 1 tablet predniSONE (DELTASONE) Take 40 mg by mouth. 0 20 mg tablet valACYclovir (VALTREX) Take 1 tablet by 0 015 500 mg tablet mouth. acyclovir (ZOVIRAX) 5 % Apply topically. 0 201612/01/2019 ointment levoFLOXacin (LEVAQUIN) Take 1 tablet (500 mg 10 tablet 0 1 06/20/2017 12/01/2019 500 mg tablet total) by mouth daily. [facility] Prescription [facility] Prescription See 0 016 03/20/2022 (Allergy Immunotherapy) [...] documented as of this encounter ED Notes [place] Acosta D.O. - 04/20/2018 12:29 AM CST SUBJECTIVE CHIEF COMPLAINT/REASON FOR VISIT Urinary Frequency (Patient presents to ED with complaints of urinary s/s that have been present for approx 1 week, symptoms have intensified over the last 2 days with urgency and redness at suprapubic site, patient has also stated he has been having an increase in bowel movements as well.) HISTORY OF PRESENT ILLNESS 22-year-old male who is status post female to male gender confirmation surgery, in his case phalloplasty. He has had a complicated post surgical course and has a suprapubic catheter in place. However, he drains urine from below his phalloplasty. He has noticed urgency and frequency of urination over the past couple days. This seems to be increasing in severity. Additionally, he has noticed redness from around the suprapubic site. He does not typically drain urine out of the suprapubic catheter. The skin is irritated, red, with some purulent drainage. He is due to get the catheter out in about 3 weeks. He states that it is at than at least a month and he has used the catheter. History provided by: Patient REVIEW OF SYSTEMS Constitutional: Negative for fever. Gastrointestinal: Negative for vomiting. Genitourinary: Positive for dysuria, frequency and urgency. Negative for flank pain. Musculoskeletal: Negative for back pain. OBJECTIVE Initial Vitals [04/19/18 2322] Temperature Pulse Rate Heart Rate Resp Rate Blood Pressure SpO2 36.2 ??C 76 -- 16 127/89 97 % Pain Score 0 - No pain PHYSICAL EXAMINATION Constitutional: He appears well-developed and well-nourished. He is cooperative. No distress. HENT: Head: Normocephalic and atraumatic. Mouth/Throat: Oropharynx is clear and moist. Mucous membranes are moist. No tonsillar exudate. Eyes: EOM are normal. Pupils are equal, round, and reactive to light. Neck: Normal range of motion. Neck supple. Cardiovascular: Normal rate and regular rhythm. Capillary refill: takes less than 3 seconds, Pulmonary/Chest: Effort normal and breath sounds normal. Abdominal: Soft. Bowel sounds are normal. There is tenderness. The suprapubic catheter is in place. There is some surrounding erythema of the stoma site. There is some scant thick guerrero colored drainage. It is mildly tender to palpation in this area. There is no flank tenderness. Neurological: He is alert and oriented to person, place, and time. Psychiatric: He has a normal mood and affect. Nursing note and vitals reviewed. ASSESSMENT/PLAN Impression and Plan This is a 22-year-old transgender male presenting with dysuria. He has a history of urinary tract infections since his surgeries were performed earlier this spring. Previous sensitivity show only sensitive to Levaquin. UA today shows leukocyte esterase white blood cells and bacteria. Will treat him for infection based on his past sensitivities and use Levaquin. It was resistant to everything else tested. This should also help with his skin irritation surrounding the suprapubic catheter. Wound culture from the site was obtained. The Tegaderm was removed by nursing staff, and dressed with gauze and bacitracin. I advised him to do this at home as well. Return precautions, follow-up, additional verbal discharge instructions given. Patient agreeable with plan of care. Reviewed and summarized previous medical records including: Documentation from previous visits. I personally reviewed the lab result(s) and my interpretation is: Abnormal Final Diagnoses: as of Apr 20 29 Infection Urinary Tract [place] Acosta D.O. 04/20/18 0054 ISH LANGUAGE LECTURER documented in this encounter Plan of Treatment Upcoming Encounters Date Type Specialty Care Team Description 05/23/2022 Telemedicine Endocrinology Arely Bond M.B., B.Ch. [address] [place] [address] [phone] (Wo rk) documented as of this encounter Procedures Procedure Name Priority Date/Time Associated Comments Diagnosis BACTERIAL CULTURE, STAT 04/20/2018 12:18 Resul ts for this AEROBIC + SUSC AM SPANISH LANGUAGE LECTURER procedure are in the results section. BACTERIAL CULTURE, STAT 04/19/2018 11:39 Resul ts for this AEROBIC + SUSC, URINE PM SPANISH LANGUAGE LECTURER proced ure are in the results section. URINALYSIS WITH STAT 04/19/2018 11:39 Results for this MICROSCOPIC PM SPANISH LANGUAGE LECTURER procedure are i n the results section. documented in this encounter Results Bacterial Culture, Aerobic + Susc (04/20/2018 12:18 AM SPANISH LANGUAGE LECTURER) [facility] Method Time Signature Bacterial No growth 04/23/2018 [facility] Culture, after 3 9:06 AM SPANISH LANGUAGE LECTURER HEALTH Aerobic days of SYSTEM- incubation. [place] Specimen Anatomical Collection Method Collection Time Receive d Time (Source) Location / / Volume Laterality Drainage 04/20/2018 12:18 04/20/2018 2:41 (Abdomen) AM SPANISH LANGUAGE LECTURER PM SPANISH LANGUAGE LECTURER Comment: Specimen Source Site: Drainage [place] Chin.O. LAB MICROBIOLOGY - GENERAL O RDERABLES Performing Organization Address City/[facility]/ZIP Code Phon e Number [address] [id number] LAB (ABNORMAL) Urine Culture (04/19/2018 11:39 PM SPANISH LANGUAGE LECTURER) Component Value Ref Test Analysis Performed At Patholo gist Range Method Time Signature Bacterial YEAST 04/21/2018 [facility] Culture, >100,000 cfu/mL 9:21 AM SPANISH LANGUAGE LECTURER HEALTH Aerobic, No further identification SYST EM- Urine (A) [facility] Specimen Anatomical Collection Method Collection Time Receive d Time (Source) Location / / Volume Laterality Urine (Urine, 04/19/2018 11:39 04/20/2018 2:45 Midstream) PM SPANISH LANGUAGE LECTURER PM SPANISH LANGUAGE LECTURER Comment: Specimen Source Site: Urine [place] Chin.O. LAB MICROBIOLOGY - GENERAL O RDERABLES Performing Organization Address City/[facility]/ZIP Code Phon e Number [address] [id number] LAB (ABNORMAL) Urinalysis with Microscopic (midstream) (04/19/2018 11:39 PM SPANISH LANGUAGE LECTURER) P athologist Signature Source Midstream 04/19/2018 [facility] 11:56 PM [facility] [place] Clarity Cloudy (A) Clear 04/20/2018 [facility] 12:00 AM [facility] [place] [facility] Color Yellow 04/20/2018 [facility] 12:00 AM [facility] Comment: ----REFERENCE VALUE---- Colorless Yellow Debby Blood Trace (A) Negative 04/20/2018 12:00 AM [facility] [place] [facility] Nitrite Negative Negative 04/20/2018 12:00 AM [facility] [place] [facility] Leukocyte Esterase Small (A) Negative 04/20/2018 12:00 AM [facility]UAGE [facility] Protein 30 (A) mg/dL 04/20/2018 12:00 AM [facility] [place] [facility] Comment: ----REFERENCE VALUE---- Negative Trace Glucose Negative Negative mg/dL 04/20/2018 12:00 AM [facility] [place] [facility] Ketones, QI(U) Negative Negative mg/dL 04/20/2018 12:00 AM [facility] [place] [facility] Bilirubin Negative Negative 04/20/2018 12:00 AM [facility] [place] [facility] pH 5.5 5.0 - 8.0 04/20/2018 12:00 AM [facility] [place] [facility] Specific Irwin >=1.030 1.001 - 1.035 04/20/2018 12:00 AM [facility] Urobilinogen 0.2 0.2 - 1.0 mg/dL 04/20/2018 12:00 AM [facility] White Blood Cells 51-100 (A) /hpf 04/20/2018 12:00 AM [facility] [place] [facility] Comment: Less than 12 ml total volume. ----REFERENCE VALUE---- Males: 0-3 Females: 0-10 Unknown: 0-10 Red Blood Cells 3-10 (A) 0 - 2 /hpf 04/20/2018 12:00 [facility] [place] [facility] Dysmorphic Red Blood <=25 <=25 % 04/20/2018 12:00 [facility] Cells AM [facility] [place] [facility] Crystals Calcium Oxalate None Seen 04/20/2018 12:00 [facility] (A) /lpf [facility] [place] [facility] Squamous Cells Occ-3 /hpf 04/20/2018 12:00 [facility] [place] [facility] Transitional Cells Occ-3 (A) None Seen 04/20/2018 12:00 [facility] /hpf [facility] [place] [facility] Bacteria Present (A) None Seen 04/20/2018 12:00 [facility] [place] [facility] Yeast Present (A) None Seen 04/20/2018 12:00 [facility] AM SPANISH LANGUAGE LECTURER [facility] Specimen Anatomical Collection Method Collection Time Receive d Time (Source) Location / / Volume Laterality Urine (Urine, 04/19/2018 11:39 04/19/2018 Midstream) PM SPANISH LANGUAGE LECTURER 11:42 PM SPANISH LANGUAGE LECTURER [place] Lila Acosta D.O. LAB URINE ORDERABLES Performing Organization Address City/State/ZIP Code Phon e Number [facility] [address] [place] [address] [place] [facility] documented in this encounter Visit Diagnoses Diagnosis Infection Urinary Tract - Primary documented in this encounter Administered Medications Inactive Administered Medications - up to 3 most recent administrations Medication Order MAR Action Action Date Dose Rate Site [id number]-[id number] Given 04/20/2018 12:18 AM 1 applica tion n 3.5 mg-400 unit-5,000 unit SPANISH LANGUAGE LECTURER ointment packet 1 application (NEOSPORIN) 1 application, topical, Once, On Fri04/20/18 at 0015, For 1 dose documented in this encounter Active and Recently Administered Medications Due to Daylight Saving Time, this section may contain times in both CDT and SPANISH LANGUAGE LECTURER. Scheduled Medication Order 04/18/2018 04/19/2018 04/20/2018 [id number]-llizeboqwd-hkhokyzxw 3.5 mg-400 unit-5,000 unit ointment packet 1 application (NEOSPORIN) (COMPLETED) 0018 (Given - Provider: Lluvia Alcantara R.N.) 1 application, topical, Once, On Fri04/20/18 at 0015, For 1 dose documented in this encounter Care Teams Press Technician Relationship Specialty Start Date End Date Bella Sears M.D. PCP - General 11/28/16 06/30/19 [address] [place] [phone] documented as of this encounter
--- OUTSIDE RECORDS SUMMARY | 2022-04-12 08:14 | XMS_ITS | Encounter Summary ---
:1995 Author Organization [facility] Address [address] [place] [id number] Care Team Providers Name Role Phone Unavailable Primary Care Provider Unavailable Encounter Details Date Type Department Care Team Description 03/19/2016 Hospital Encounter HX [facility] Arun Badillo M.D. [address] [place] [address] 021 (Wo rk) Social History Tobacco Use Types Packs/Day Years Used Date Smoking Tobacco: Never Assessed Alcohol Habits Answer Date Recorded How often [...] 03/20/2022 relatives? How often do you attend anabaptism or jew services? Never 03/20/2022 Do you belong to any clubs or organizations such as No 03/20/2022 anabaptism groups, unions, fraternal or athletic groups, or [...] place to sleep or slept in a care home (including now)? Sex Assigned at Date Recorded Female 03/20/2022 7:54 AM CDT documented as of this encounter Last Filed Vital Signs Vital Sign Reading Time Taken Comments Blood Pressure 121/79 03/19/2016 10:28 AM CDT Pulse 59 03/19/2016 10:28 AM CDT Temperature - - Respiratory Rate 20 03/19/2016 10:28 AM CDT Oxygen Saturation - - Inhaled Oxygen Concentration - - Weight 70 kg (154 lb 5.2 oz) 03/19/2016 8:16 AM CDT Height 164 cm (5' 4.57) 03/19/2016 10:28 AM CDT Body Mass Index 26.03 03/19/2016 8:16 AM CDT documented in this encounter Discharge Summaries Carlin Hubbard R.N. - 03/19/2016 12:21 PM CDT ED Discharge Instructions [address] [address] Name: NAZ RICARDO Date of : 1995 12:00 PM Visit Date: 03/19/2016 8:12 AM [facility] Number: [id number] Address: [address] [place] [phone] Primary Care Provider: KALEE MORENO MD IMPORTANT: [facility] in [place] would like to thank you for allowing us to assistyou with your healthcare needs. The following includes patient education materials and information regarding your injury/illness. Diagnosis: Pain Abdominal NOS Follow-Up Instructions: With: Address: When: KALEE MORENO [address] [place] [id number] Business (1) Within 3 - 5 days Comments: Call for follow up appointment. For recheck. Your Upcoming Appointments: Date Time Location Provider No Appointments found Patient Education Materials: Managing Post-Op Pain at Home: Medications Pain after an operation (post-op pain) is common and expected. These guidelines can help you stay ascomfortable as possible. Taking Pain Medications ?? Take medications on time. Do not take more than prescribed. ?? Take only the medications that your health care provider tells you to take. ?? Take pain medications with some food to avoid an upset stomach. ?? Dont drink alcohol while using pain medications. Types of Pain Medications Non-opioid: ?? Ghwi-uqt-ghxdllz (such as acetaminophen and ibuprofen) or prescription ?? All relieve mild to moderate pain and some reduce swelling ?? Possible side effects include stomach upset and bleeding ?? Check with your doctor before taking souc-svf-riqeyuv pain medications in addition to your prescribed pain medication Opioid: ?? Always a prescription ?? Relieve moderate to severe pain ?? Possible side effects include stomach upset, nausea, and itching ?? May cause constipation (to help prevent this, eat high-fiber foods and drink plenty of water) Call your doctor or seek immediate attention if you notice any of these symptoms: Nausea, vomiting, diarrhea, lasting constipation, or stomach cramps Breathing problems or a fast heart rate Feeling very tired, sluggish, or dizzy Skin rash ?? [place] [address]. All rights reserved. This information is not intended as a substitute for professional medical care. Always follow your healthcare professional's instructions. Managing Post-Op Pain at Home: Non-Medication Relief Medications are not the only way to manage pain after surgery. Try the following techniques. Visualization or Guided Imagery Visualization helps take your mind off the pain: ?? Close your eyes. Breathe deeply. ?? Picture yourself in a quiet, peaceful place. ?? Imagine how you feel in that place. ?? If other thoughts enter your mind, take a deep breath and try again. Progressive Body Relaxation Relaxation helps relieve stress and pain: ?? Close your eyes. Clench your foot muscles. ?? Hold for a few seconds. Release. ?? Repeat with the muscles in your calves. ?? Work slowly up your body. Deep Breathing Deep breathing relaxes your whole body: ?? Inhale slowly and deeply. ?? Hold your breath for a couple of seconds. ?? Exhale through your mouth slowly and deeply. ?? [facility], [address] [place], [place] [id number]. All rights reserved. This information is not intended as a substitute for professional medical care. Always follow your healthcare professional's instructions. Consider Using Patient Online Services Patient Online Services is a secure online and Mobile application that lets you: ?? View lab and test results ?? View portions of your medical record including clinical notes, immunizations and discharge summaries ?? Request an appointment or medication refill ?? Review your appointment schedule ?? Send secure messages to your care team Its easy to create an account if you dont have one. Go to [email or web address] and click on Create Your Account. Then, follow the directions to complete the online form. Youll be asked for your [facility] number which you can find at the top of this document. ED Tests and Procedures: Order Status Automated Diff-5 Part Completed Urinalysis with Culture if Indicated Completed Basic Metabolic Panel Completed CBC (includes Auto Differential) Completed US Venous Doppler Lower Ext Right Completed Discharge Prescriptions & Home Medications: Medication/Strength Dose Route Frequency Indications/Special Instructions/Comments/Notes ondansetron (Zofran ODT 4 mg oral tablet, disintegrating) 4 mg Oral every 8 hours as needed for Nausea/vomiting oxyCODONE-acetaminophen (Percocet 5/325 oral tablet) 1-2 tab(s) Oral every 6 hours as needed for Pain No more than 4,000mg acetaminophen/24hrs *HYDROcodone-acetaminophen ([place] 5 mg-325 mg oral tablet) 1 tab(s) Oral every 4 hours as needed forPain No more than 4,000mg acetaminophen/24hrs Misc Prescription (Trazapam 15 mg) i po daily for sleep Misc Prescription (Misc Prescription) migraine prevention medication, daily. Misc Prescription (Misc Prescription) See Instructions testoterone--80 mg IM per week--(has been taking past 8 months) * You have let us know that you are not taking this medication as listed. Please talk with your primary care provider or the health care provider who prescribed the medication as soon as possible. Attention: If you have any medications at home not on this list, DO NOT take them until you contact your provider for clarification. Give a copy of your medication list to your primary care provider. Update your medication list any time medications or doses are changed and carry your medication list at all times in case of emergency. IMPORTANT: We examined and treated you today on an emergency basis only. This was not a substitute for, or an effort to provide, complete medical care. In most cases, you must let your doctor check youagain. Tell your doctor about any new or lasting problems. We cannot recognize and treat all injuries or illnesses in one Emergency Department visit. If you had special tests, such as EKG's or X- rays, we will review them again within 24 hours. We will call you if there are any new suggestions. Please follow the instructions above carefully. If you are being transferred to another facility, your follow up plan of care will be determined by the receiving facility. If you are a patient that is being discharged from the Emergency Department after receiving narcotics or other medications that may impair your judgment you may be a risk to yourself or others if you operate a motor vehicle. We recommend that you arrange a ride home with a responsible libertarian. DAVION Domingo KALLIE MARIE , or responsible libertarian have received this information and my questions have been answered. I have discussed any challenges I see with this plan with the nurse or physician. Patient Signature or Responsible Alliance Party/Relationship Date Time Provider Signature Date Time IMPORTANT: We examined and treated you today on an emergency basis only. This was not a substitute for, or an effort to provide, complete medical care. In most cases, you must let your doctor check youagain. Tell your doctor about any new or lasting problems. We cannot recognize and treat all injuries or illnesses in one Emergency Department visit. If you had special tests, such as EKG's or X- rays, we will review them again within 24 hours. We will call you if there are any new suggestions. Please follow the instructions above carefully. If you are being transferred to another facility, your follow up plan of care will be determined by the receiving facility. If you are a patient that is being discharged from the Emergency Department after receiving narcotics or other medications that may impair your judgment you may be a risk to yourself or others if you operate a motor vehicle. We recommend that you arrange a ride home with a responsible libertarian. I, NAZ RICARDO , or responsible libertarian have received this information and my questions have been answered. I have discussed any challenges I see with this plan with the nurse or physician. Patient Signature or Responsible Alliance Party/Relationship Date Time Provider Signature Date Time This document has images extracted. Please consider using [employer] for all your patient education needs. Source: [facility] [employer] Document Id: [id number] Carlin Hubbard, R.N. - 03/19/2016 12:21 PM CDT ED Depart Summary [facility] Emergency Department Clinical Discharge Summary PERSON INFORMATION Name NAZ RICARDO Age 20 Years 1995 12:00 PM Sex Female Language Ghanaian PCP KALEE MORENO MD Marital Status Single N [id number] Visit Id Visit Reason Abdominal pain; ab discomfort & urinary issues Specialty Enc Type Emergency Med Service Emergency Medicine Referred by Track Group MAQN ED Discharge 03/19/2016 11:00 AM Tracking Id [id number] Checkout 03/19/2016 11:00 AM Checkin 03/19/2016 8:12 AM Acuity 4 -Less Urgent Dispo Type * Discharged to Home or Self Care Arrival 03/19/2016 8:12 AM Reg Status LOS 000 02:48 Address: [address] [place] [phone] Comment: PROVIDER INFORMATION Provider Role Provider Contact Time DOUG GROSS MD ED Provider 03/19/16 09:10 CARLIN HUBBARD RN ED Nurse 03/19/16 10:00 DIAGNOSIS Pain Abdominal NOS Comment: PATIENT EDUCATION INFORMATION Instructions: Managing Post-Op Pain at Home: Medications; Managing Post-Op Pain at Home: Non- Medication Relief Follow up: With: Address: When: KALEE MORENO [address] [place] [address] [facility] (1) Within 3 - 5 days Comments: Call for follow up appointment. For recheck. Source: [facility] POWERCHART Document Id: [id number] documented in this encounter Medications at Time [...] by mouth. 0 0 10/24/2012 mg tablet pirbuterol acetate Inhale 2 puffs as 0 05/21/2011 ([facility] [employer]) needed. valACYclovir (VALTREX) Take 1 tablet by 0 015 500 mg tablet mouth. Misc Prescription Misc Prescription See 0 016 03/20/2022 (Allergy Immunotherapy) Instructions, testoterone--80 mg IM per week--(has been taking past 8 months) traZODone (DESYREL) 100 Take 1 tablet by 0 201412/01/2019 mg tablet mouth. traZODone (DESYREL) 100 Take 1 tablet by 0 201403/20/2022 mg tablet mouth at bedtime. documented as of this encounter ED Notes Carlin Hubbard, RDarioN. - 03/19/2016 12:20 PM CDT ED Treatments and Procedures ED Treatments and Procedures Entered On: 03/19/2016 12:20 CDT Performed On: 03/19/2016 12:20 CDT by CARLIN HUBBARD RN Peripheral IV Peripheral IV Assess/Intervention Grid Peripheral IV #1 IV Activity : Discontinue Removal : Catheter intact, Hemostasis within expected timeframe Date of Insertion : 03/19/2016 CDT IV Site : Antecubital Laterality : Right Catheter Size : 18 Catheter Type : Over the needle CARLIN HUBBARD RN - 03/19/2016 12:20 CDT [facility] Document Id: [id number] CDT!11 Carlin Hubbard R.N. - 03/19/2016 11:00 AM CDT ED Nurse Reassess ED Nurse Reassess Entered On: 03/19/2016 12:20 CDT Performed On: 03/19/2016 11:00 CDT by CARLIN HUBBARD RN Pain Assessment Pain Symptoms : Yes CARLIN HUBBARD RN - 03/19/2016 12:19 CDT Pain Scale Pain Scale Verbal 0-10 : Open CARLIN HUBBARD RN - 03/19/2016 12:19 CDT Pain Pain Assessment Grid Pain 1 Pain 2 Pain 3 Location : Abdomen Lower leg Lower leg Intensity : 8 CARLIN HUBBARD RN - 03/19/2016 12:19 CDT CARLIN HUBBARD RN - 03/19/2016 12:19 CDT CARLIN HUBBARD RN- 03/19/2016 12:19 CDT Comfort Measures Comfort Measures Grid Cold Therapy : Yes CARLIN HUBBARD RN - 03/19/2016 12:19 CDT Draper Draper Agitation Sedation Scale (RASS) : Alert and calm RASS Score : 0 CARLIN HUBBARD RN - 03/19/2016 12:19 CDT Resp Reassess Respiratory Patient Stated Symptoms : None CARLIN HUBBARD RN - 03/19/2016 12:19 CDT CV Reassess CV Patient Stated Symptoms : None CARLIN HUBBARD RN - 03/19/2016 12:19 CDT Neuro Reassess Last Well Time Known : Not applicable Orientation : Oriented x 3 Characteristics of Speech : Clear Level of Consciousness : Alert Neuro Patient Stated Symptoms : None Gait : Steady NAKUL CARLIN Sharp RN - 03/19/2016 12:19 CDT Jessenia Coma Eye Opening Response Elmer : Spontaneously Best Verbal Response Jessenia : Oriented Best Motor Response Elmer : Obeys simple commands Elmer Coma Score : 15 HUBBARD CARLIN Sharp RN - 03/19/2016 12:19 CDT Behavioral Health Screen/Safety Reassmt Affect/Behavior : Calm, Cooperative, Appropriate CARLIN HUBBARD RN - 03/19/2016 12:19 CDT GI Reassess GI Patient Stated Symptoms : Abdominal pain Abdomen Description : Symmetric CARLIN HUBBARD RN - 03/19/2016 12:19 CDT Bowel Sounds Grid LUQ : Normoactive RUQ : Normoactive LLQ : Normoactive RLQ : Normoactive CARLIN HUBBARD RN - 03/19/2016 12:19 CDT /OB Reassess Patient Stated Symptoms : None CARLIN HUBBARD RN - 03/19/2016 12:19 CDT Incision/Wound Incision/Wound Care Grid Activity : Assessed Wound Type : Surgical incision Location : Abdomen Description : Edges approximated CARLIN HUBBARD RN - 03/19/2016 12:19 CDT Source: [employer] Document Id: [id number] CDT!55 Carlin Hubbard R.N. - 03/19/2016 10:29 AM CDT ED Nurse Reassess ED Nurse Reassess Entered On: 03/19/2016 10:30 CDT Performed On: 03/19/2016 10:29 CDT by CARLIN HUBBARD RN Pain Assessment Pain Symptoms : Yes CARLIN HUBBARD RN - 03/19/2016 10:29 CDT Pain Scale Pain Scale Verbal 0-10 : Open CARLIN HUBBARD RN - 03/19/2016 10:29 CDT Pain Pain Assessment Grid Pain 1 Pain 2 Pain 3 Location : Abdomen Lower leg Lower leg Intensity : 10 CARLIN HUBBARD RN - 03/19/2016 10:29 CDT CARLIN HUBBARD RN - 03/19/2016 10:29 CDT CARLIN HUBBARD RN- 03/19/2016 10:29 CDT Comfort Measures Comfort Measures Grid [place] Application : Yes Positioning : Yes Quiet Environment : Yes CARLIN HUBBARD RN - 03/19/2016 10:29 CDT Draper Draper Agitation Sedation Scale (RASS) : Alert and calm RASS Score : 0 CARLIN HUBBARD RN - 03/19/2016 10:29 CDT Resp Reassess Respiratory Patient Stated Symptoms : None CARLIN HUBBARD RN - 03/19/2016 10:29 CDT CV Reassess CV Patient Stated Symptoms : None CARLIN HUBBARD RN - 03/19/2016 10:29 CDT Neuro Reassess Last Well Time Known : Not applicable Orientation : Oriented x 3 Characteristics of Speech : Clear Level of Consciousness : Alert CARLIN HUBBARD RN - 03/19/2016 10:29 CDT Jessenia Coma Eye Opening Response Jessenia : Spontaneously Best Verbal Response Jessenia : Oriented Best Motor Response Jessenia : Obeys simple commands Jessenia Coma Score : 15 CARLIN UHBBARD RN - 03/19/2016 10:29 CDT Behavioral Health Screen/Safety Reassmt Affect/Behavior : Calm, Cooperative, Appropriate CARLIN HUBBARD RN - 03/19/2016 10:29 CDT GI Reassess GI Patient Stated Symptoms : None CARLIN HUBBARD RN - 03/19/2016 10:29 CDT Source: [employer] Document Id: [id number] CDT!40 Jalyn Sanchez R.N. - 03/19/2016 9:32 AM CDT ED Nurse Reassess ED Nurse Reassess Entered On: 03/19/2016 9:33 CDT Performed On: 03/19/2016 9:32 CDT by JALYN SANCHEZ RN Pain Assessment Pain Symptoms : Yes JALYN SANCHEZ RN - 03/19/2016 9:32 CDT Comfort Measures Patient Response : To ultrasound at this time. Pt stable, conversing easily. JALYN SANCHEZ RN - 03/19/2016 9:32 CDT Source: [employer] Document Id: [id number] CDT!5 Carlin Hubbard R.N. - 03/19/2016 9:23 AM CDT ED Nurse Reassess ED Nurse Reassess Entered On: 03/19/2016 9:25 CDT Performed On: 03/19/2016 9:23 CDT by CARLIN HUBBARD RN Pain Assessment Pain Symptoms : Yes CARLIN HUBBARD RN - 03/19/2016 9:23 CDT Pain Scale Pain Scale Verbal 0-10 : Open CARLIN HUBBARD RN - 03/19/2016 9:23 CDT Pain Pain Assessment Grid Pain 1 Pain 2 Pain 3 Location : Abdomen Lower leg Lower leg Intensity : 4 3 3 CARLIN HUBBARD RN - 03/19/2016 9:23 CDT CARLIN HUBBARD RN - 03/19/2016 9:23 CDT CARLIN HUBBARD RN -03/19/2016 9:23 CDT Comfort Measures Comfort Measures Grid [place] Application : Yes Positioning : Yes CARLIN HUBBARD RN - 03/19/2016 9:23 CDT GI Reassess GI Patient Stated Symptoms : Abdominal pain GI Note : denies passing flatus CARLIN HUBBARD RN - 03/19/2016 9:23 CDT Source: [facility] [employer] Document Id: [id number] CDT!23 Doug Gross M.D. - 03/19/2016 9:14 AM CDT Abdominal pain Patient: NAZ RICARDO Age: 20 years Sex: Female : 1995 Author: DOUG GROSS MD Attachments: None Associated Diagnosis: Pain Abdominal NOS Basic Information Time seen: Date & time 03/19/2016 09:14:00. History source: Patient. Arrival mode: Private vehicle, walking. History limitation: None. Additional information: Chief Complaint from Nursing Triage Note : Chief Complaint Description 03/19/2016 8:16 CDT Chief Complaint Description Date\Time Correction Chief Complaint Description Pt. presents to Er with complaints of of post surgical abdominal pain and urinary complaints. Complete hysterectomy 1 week ago. States she feels like she goes frequently, but only small amounts and feels she is not emptying her bladder. (Modified) . History of Present Illness The patient presents with abdominal pain. The onset was just prior to arrival. The course/duration of symptoms is worsening, fluctuating in intensity and The patient is 1 week status post SHADY/BSO. He has done this as part of the gender dysphoria and changes for his transition from female to male. She has been on testosterone for approximately a year necessitating the trans abdominal approach. The first 5-days post op he seemed to be progressing nicely. By his own admission he was a little more active. Over the last 24 - 36 hours he has noted increasing pain in the lower abdomen.. The character of symptoms is sharp. The degree at onset was moderate. The Location of pain at onset was lower and abdominal. The degree at present is moderate, 8 /10. The Location of pain at present is lower and abdominal. Radiating pain: none. There are exacerbating factors including none and The patient did have a catheter in place for 2 days. He does not note any specific increased discomfort with urination but it appears to be a little more difficult. He is also struggling with some mild constipation.. There are relieving factors including none and The patient is taking 1 to 2 Percocet every 4-6 hours. Apparentlythis was helpful in the past but no longer seems to be taking care of the pain.. Risk factors consist of recent surgery. Associated symptoms: nausea and denies fever. Review of Systems Constitutional symptoms: Negative except as documented in HPI, but no fever or no chills. Skin symptoms: Negative except as documented in HPI and The patient denies any drainage from the lower abdominal incision done for the surgery., but no rash. ENMT symptoms: Negative except as documented in HPI. Respiratory symptoms: No shortness of breath or no cough. Cardiovascular symptoms: No chest pain. Gastrointestinal symptoms: Abdominal pain, moderate, suprapubic, sharp, nausea and constipation, butno vomiting or no diarrhea. Genitourinary symptoms: No dysuria, no vaginal bleeding or no vaginal discharge. Musculoskeletal symptoms: Negative except as documented in HPI. Neurologic symptoms: No headache. Psychiatric symptoms: Anxiety and depression. Allergy/immunologic symptoms: Negative except as documented in HPI. Additional review of systems information: All other systems reviewed and otherwise negative, All systems reviewed as documented in chart. Health Status Allergies: Allergic Reactions (Selected) NKA. Past Medical/ Family/ Social History Medical history: Active Dysphoria Gender Adolescent Or Adult (ICD-10-CM F64.1) Migraine Headache (WHITE) NOS (ICD-10-CM G43.909). Surgical history: No active procedure history items have been selected or recorded.. Family history: No family history items have been selected or recorded.. Social history: Alcohol use: Denies, Tobacco use: Denies, Family/social situation: Unmarried. Problem list: All Problems Dysphoria Gender Adolescent Or Adult / F64.1 / Confirmed Migraine Headache (WHITE) NOS / G43.909 / Confirmed. Physical Examination Vital Signs: Time: 03/19/2016 09:00:00, Vital Signs 03/19/2016 8:16 CDT Temperature Core Date\Time Correction Temperature Core 36.8 DegC (Modified) Peripheral Pulse Rate Date\Time Correction Peripheral Pulse Rate 82 /min (Modified) Respiratory Rate Date\Time Correction Respiratory Rate 16 /min (Modified) SpO2 Date\Time Correction SpO2 98 % (Modified) Systolic Blood Pressure Date\Time Correction Systolic Blood Pressure 133 mmHg (Modified) Diastolic Blood Pressure Date\Time Correction Diastolic Blood Pressure 87 mmHg (Modified) Mean Arterial Pressure Date\Time Correction Mean Arterial Pressure 102 mmHg (Modified) , Measurements 03/19/2016 8:16 CDT Height Date\Time Correction Height 164 cm (Modified) Dosing Weight 70.00 kg (Modified) Actual Weight Date\Time Correction Actual Weight 70 kg (Modified) Body Mass Index Date\Time Correction Body Mass Index 26.03 kg/m2 (Modified) , SpO2 03/19/2016 8:16 CDT SpO2 Date\Time Correction SpO2 98 % (Modified) . General: Alert, moderate distress and anxious, but not ill-appearing. Skin: Warm, dry, intact and The surgical incision looks very clean. No drainage , discharge, or erythema is noted.. Head: Normocephalic. Neck: Supple. Cardiovascular: Regular rate and rhythm. Respiratory: Lungs are clear to auscultation. Chest wall: No tenderness and There are well-healed surgical incisions of the previous subcutaneous mastectomies.. Back: Nontender, Normal range of motion and The patient appears to be somewhat stiff when sitting up.. Musculoskeletal: Normal ROM Gastrointestinal: Soft, Non distended, Obese, Tenderness: Moderate, suprapubic, right lower quadrant, left lower quadrant, Guarding: Negative, Rebound: Positive (Minimal ) and Bowel sounds: Normal. Neurological: Alert and oriented to person, place, time, and situation and No focal neurological deficit observed. Lymphatics: No lymphadenopathy. Psychiatric: Cooperative and appropriate mood & affect. Medical Decision Making Differential Diagnosis:Bowel obstruction, bowel perforation, renal stone, biliary colic, ischemic bowel, constipation, incarcerated hernia. Rationale:At this point I think we have eliminated any serious postoperative complications. The minimal hematuria is to be expected after this type of surgery. The patient obviously looks somewhat uncomfortable and I believe just got behind on the analgesia. I suspect that he was feeling much better after 4- 5 days and became somewhat more active. That, with the combination of the changes in medications and narcotic analgesia, unfortunately left him somewhat behind in pain control. I have suggested that he regroup and take it easy. He is still not healed and probably will need another week or two before he can become more active. I will give an additional amount of Percocet but suggested that he try and start weaning to avoid serious, constipation. Further, I have offered some Zofran and encouraged him to try to increase his fluid and oral intake to aid in healing. Followup visit in approximately [address] Moreno is suggested.. OrdersLaunch Orders Laboratory: CBC (includes Auto Differential) (Order Processing): Stat, 03/19/2016 9:15 CDT, Once Basic Metabolic Panel (Order Processing): Stat, 03/19/2016 9:15 CDT, Once Patient Care: Bladder Scan (Order Processing): 03/19/2016 9:15 CDT ED Peripheral IV Careset (Order Processing) Peripheral IV (Order Processing): 03/19/2016 9:15 CDT, Initial Line Pharmacy: Dilaudid (Order Processing): 1 mg, IV Push, Once Zofran (Order Processing): 4 mg, IV Push, Once Saline bolus (Order Processing): 1,000 mL, IVPB, Once Sodium Chloride 0.9% 1000 mL (Order Processing): 100 mL/hr, IV Radiology: US Venous Doppler Lower Ext Right (Order Processing): 03/19/2016 9:15 CDT, pain right calf/+Homans/recent surgery/ Strong FMH of DVT and PE, Stat, Patient Bed, Once, 03/19/2016 9:15 CDT, MAQN ED, Launch Orders Pharmacy: Dilaudid (Order Processing): 1 mg, IV Push, Once, Launch Orders Pharmacy: Saline bolus (Order Processing): 500 mL, IVPB, Once. Results review:Lab results : Lab View 03/19/2016 8:49 CDT Hgb 15.6 g/dL HI Hct 46.2 % HI WBC 6.9 x10(9)/L RBC 5.20 x10(12)/L HI MCV 88.8 fL RDW 12.9 % Platelet 238 x10(9)/L Neutro Absolute 3.00 10(9)/L Lymph Absolute 3.03 x10(9)/L HI [place] Absolute 0.72 x10(9)/L Eos Absolute 0.12 x10(9)/L Baso Absolute 0.02 x10(9)/L Differential? Auto Sodium Lvl 138 mmol/L Potassium Lvl 3.9 mmol/L Chloride 99 mmol/L CO2 27 mmol/L AGAP 12 mmol/L Glucose Lvl 98 mg/dL Creatinine 1.1 mg/dL EGFR (MDRD) >60.0 mL/min/SA EGFR (MDRD) >60.0 mL/min/SA BUN 9 mg/dL Calcium Lvl 9.6 mg/dL 03/19/2016 8:33 CDT UA Color Yellow UA Clarity Clear UA Spec Grav 1.015 UA pH 6.5 UA Protein Negative mg/dL UA Glucose Negative mg/dL UA Ketones Negative mg/dL UA Bili Negative UA Urobilinogen 0.2 mg/dL UA Blood Small UA Nitrite Negative UA Leuk Est Negative UR WBC Occ-3 /HPF UR RBC Occ-2 /HPF UR Hyaline Cast Occasional /LPF . Radiology results:Interpretation: Reason For Exam pain right calf/+Homans/recent surgery/ Strong FMH of DVT and PE Report HISTORY: Right leg pain. Abnormal / positive Homans' sign, recent pelvic surgery, strong family history of DVT. Technique: Grayscale and Doppler ultrasound (US) imaging of the right lower extremity (and the left CFV) was performed. FINDINGS: Evaluation of the deep venous system in the right lower extremity demonstrates normal compressibility, Doppler blood flow, augmentation, and lack of intraluminal echogenicity at this time. IMPRESSION: Negative for acute DVT, no evidence of a right lower extremity DVT. Signature Line Final Dictated: 03/19/2016 10:09 am ROSALINE BRITO MD Signed (Electronic Signature): 03/19/2016 10:11 am. Impression and Plan Diagnosis Pain Abdominal NOS (Discharge, Emergency medicine, Medical) (probable Routine Post Operative from being a little too active.) Plan Condition: Improved, Stable. Disposition: Discharged: time 03/19/2016 10:57:00. Prescriptions: Prescription [facility]: Zofran ODT 4 mg oral tablet, disintegrating (Prescribe): 4 mg, 1 tab(s), PO, q8hr, PRN: Nausea/vomiting, 10 tab(s), 0 Refill(s) Percocet 5/325 oral tablet (Prescribe): 1-2 tab(s), PO, q6hr, PRN: Pain, 20 tab(s), 0 Refill(s). Patient was given the following educational materials: Managing Post-Op Pain at Home: Non-MedicationRelief, Managing Post-Op Pain at Home: Medications. Follow up with: KALEE MORENO Within 3 - 5 days Call for follow up appointment. For recheck.. Counseled: Patient, Family (Mom), Regarding diagnosis, Regarding diagnostic results, Regarding treatment plan, Regarding prescription, Patient indicated understanding of instructions. Orders: Launch Orders Patient Care: Discharge ED Patient (Order Processing): 03/19/2016 11:03 CDT, Once. Electronically Signed By: DOUG GROSS MD On: 03/19/2016 01:41 PM Modified by and Electronically Signed by: DOUG GROSS MD On: 03/19/2016 10:20 AM Source: [employer] Document Id: [id number]} Carlin Hubbard R.N. - 03/19/2016 8:51 AM CDT ED Treatments and Procedures ED Treatments and Procedures Entered On: 03/19/2016 8:52 CDT Performed On: 03/19/2016 8:51 CDT by CARLIN HUBBARD RN Peripheral IV Peripheral IV Assess/Intervention Grid Peripheral IV #1 IV Activity : Start Number of Attempts : 1 Date of Insertion : 03/19/2016 CDT IV Site : Antecubital Laterality : Right Catheter Size : 18 Catheter Type : Over the needle Site Condition : No complications CARLIN HUBBARD RN - 03/19/2016 8:51 CDT Source: [facility] [employer] Document Id: [id number] CDT!12 Carlin Hubbard R.N. 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 ; Life Cycle Date: 2015 ; Life Cycle Status: Active ; Vocabulary: ICD-10-CM Migraine Headache (WHITE) NOS (ICD-10-CM :G43.909 ) Name of Problem: Migraine Headache (WHITE) NOS ; Recorder: DOUG GROSS MD; Confirmation: Confirmed ; Classification: Medical ; Code: G43.909 ; Contributor System: CohesiveFT ; Last Updated: 08/02/2015 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 presents to Er with complaints of of post surgical abdominal pain and urinary complaints. Complete hysterectomy 1 week ago. States she feels like she goes frequently, but only small amounts and feels she is not emptying her bladder. Information Given By : Patient Present in Room During Exam/Procedure : Mother Mode of Arrival ED : Private vehicle Track : Medical Languages : Ghanaian Vital Signs Assessed : Yes Treatments Prior to Arrival : None Are you ? : No Is Patient Female and 13-50 no hysterectomy : Yes Status : Patient denies CARLIN HUBBARD RN - 03/19/2016 8:54 CDT Vital Signs Temperature Core : 36.8 DegC(Converted to: 98.2 DegF) Peripheral Pulse Rate : 82 /min Respiratory Rate : 16 /min Systolic Blood Pressure : 133 mmHg Diastolic Blood Pressure : 87 mmHg NIBP Mean : 102 mmHg SpO2 : 98 % Oxygen Saturation Monitoring Frequency : Intermittent Oxygen Therapy : Room air Height : 164 cm(Converted to: 5 ft 5 inch(es)) Actual Weight : 70 kg Actual Weight Conversion to Pounds : 154 lb Body Mass Index : 26.03 kg/m2 CARLIN HUBBARD RN - 03/19/2016 8:54 CDT Pain Assessment Pain Symptoms : Yes CARLIN HUBBARD RN - 03/19/2016 8:54 CDT Pain Scale Pain Scale Verbal 0-10 : Open CARLIN HUBBARD RN - 03/19/2016 8:54 CDT Pain Pain Assessment Grid Pain 1 Intensity : 10 CARLIN HUBBARD RN - 03/19/2016 8:54 CDT Quality : Aching CARLIN HUBBARD RN - 03/19/2016 8:54 CDT CARLIN HUBBARD RN - 03/19/2016 8:16 CDT Comfort Measures Comfort Measures Grid Positioning : Yes CARLIN HUBBARD RN - 03/19/2016 8:54 CDT ED Physician Notification Time ED Physician Notification Time : 03/19/2016 8:23 CDT CARLIN HUBBARD RN - 03/19/2016 8:54 CDT ANA ANA Level 1 : No ANA Level 2 : No ANA Level 3 : Many HUBBARD, CARLIN L CASH - 03/19/2016 8:54 CDT DCP GENERIC CODE [facility] Tr[facility] Acuity : 4 -Less Urgent CARLIN HUBBARD RN - 03/19/2016 8:54 CDT Allergy (As Of: 03/19/2016 08:26:04 CDT) Allergies (Active) NKA Estimated Onset Date: Unspecified ; Created By: ERIC LOPEZ RN; Reaction Status: Active ; Substance: NKA ; Type: Allergy ; Updated By: ERIC LOPEZ RN; Reviewed Date: 03/19/2016 8:23 CDT ID Screen Drug Resistant Organism : No Travel Within Last 21 Days : No Contact with someone with Ebola : No CARLIN HUBBARD CASH - 03/19/2016 8:54 CDT TB Symptoms Grid Bloody Sputum : No Fatigue : No Fever : No Loss of Appetite : No Night Sweats : No Persistent Cough Greater Than 3 Weeks : No Weight Loss : No HUBBARDCARLIN SCHAFER Lila CASTREJON - 03/19/2016 8:54 CDT Alcohol and Drug Use : No Employee of Institutional Living Environment : No Health Care Employee : No History of Exposure to TB : No History of Positive Chest X-Ray for TB : No History of Positive TB Skin Test : No Homeless : No Known Immunosuppression : No Recent Immigrant : No Resident of Institutional Living Environment : No CARLIN HUBBARD Lila CASTREJON - 03/19/2016 8:54 CDT Immunizations Immunizations Current : Yes CARLIN HUBBARD CASH - 03/19/2016 8:54 CDT Respiratory Airway : Patent Respirations : Unlabored Respiratory Pattern : Regular Oxygen Therapy : Room air CARLIN HUBBARD Lila CASTREJON - 03/19/2016 8:54 CDT Cardiovascular Heart Rhythm : Regular Skin Color : Moran Skin Description : Dry Skin Temperature : Warm CARLIN HUBBARD CASH - 03/19/2016 8:54 CDT Neurological Last Well Time Known : Not applicable Level of Consciousness : Alert Orientation : Oriented x 3 Characteristics of Speech : Clear CARLIN HUBBARD CASH - 03/19/2016 8:54 CDT ED Psychosocial Affect/Behavior : Calm, Cooperative, Appropriate Domestic Abuse Concerns : None Behavioral Health Screen/Safety Assmt : No HUBBARDEAGLE SCHAFERSHAHANA Sharp RN - 03/19/2016 8:54 CDT Gastrointestinal Nutrition ED : Inadequate Nutrition ED Freetext : poor appetite for 2 days GI Detailed Assessment : Yes CARLIN HUBBARD RN - 03/19/2016 8:54 CDT GI Detailed GI Patient Stated Symptoms : Nausea Bowel Movement Last Date : 03/17/2016 CDT CARLIN HUBBARD RN - 03/19/2016 8:54 CDT /OB Assessment Patient Stated Symptoms : Polyuria, Retention CARLIN HUBBARD RN - 03/19/2016 8:54 CDT Incision/Wound Incision/Wound Care Grid Activity : Assessed Wound Type : Surgical incision Location : Abdomen Description : Edges approximated, Tender Color : Moran Drainage : None Drainage Amount : None Wound Dressing : Steri-Strips CARLIN HUBBARD RN - 03/19/2016 8:52 CDT Musculoskeletal Fall Prevention Education Provided : Yes CARLIN HUBBARD RN - 03/19/2016 8:54 CDT Social Habits Smoking Status : Never smoker Tobacco 2A : Yes Tobacco Use/Currently Using : No Tobacco Use/Last 30 Days : No Tobacco Use/Last 12 months : No CARLIN HUBBARD RN - 03/19/2016 8:54 CDT Alcohol Use Grid Alcohol Use : Yes CARLIN HUBBARD RN - 03/19/2016 8:54 CDT Frequency : Weekly CARLIN HUBBARD RN - 03/19/2016 8:54 CDT CARLIN HUBBARD RN - 03/19/2016 8:16 CDT Recreational Drug Use Grid Drug Use : None CARLIN HUBBARD RN - 03/19/2016 8:54 CDT CARLIN HUBBARD RN - 03/19/2016 8:16 CDT [facility] Document Id: [id number] CDT!127 documented in this encounter Miscellaneous Notes Miscellaneous - Carlin Hubbard R.N. - 03/19/2016 12:21 PM CDT Valuables/Belongings Valuables/Belongings Entered On: 03/19/2016 12:21 CDT Performed On: 03/19/2016 12:21 CDT by CARLIN HUBBARD RN Valuables/Belongings Belongings Sent Home With : patient CARLIN HUBBARD RN - 03/19/2016 12:21 CDT [facility] Document Id: [id number] CDT!3 Miscellaneous - Conversion, Historical Provider Ser - 03/19/2016 11:00 AM CDT Coding Summary-Paper Based CODING DATE: 03/28/[address] [facility] STATUS: * Discharged to Home or Self Care PAYOR: [employer] ADMIT DX: R10.30 Lower abdominal pain, unspecified REASON FOR VISIT DX: R10.30 Lower abdominal pain, unspecified FINAL DX: PRINCIPAL: G89.18 Other acute postprocedural pain SECONDARY: R10.30 Lower abdominal pain, unspecified R11.0 Nausea K59.00 Constipation, unspecified F41.8 Other specified anxiety disorders PROCEDURES DOCTOR NAME DATE NOTE: The code number assigned matches the documented diagnosis and / or procedure in the patient's chart. However, the narrative phrase printed from the coding software may appear abbreviated, or result in slightly different terminology. Coded By: HARVINDER ONOFRE Date Saved: 03/28/2016 09:30 am [facility] Document Id: [id number] Miscellaneous - Carlin Hubbard R.N. - 03/19/2016 8:12 AM CDT Facility Charge Ticket 2.0 11.0 DX Facility Charge Ticket 2.0 11.0 DX Entered On: 03/19/2016 12:21 CDT Performed On: 03/19/2016 8:12 CDT by CARLIN HUBBARD RN Facility Charge Ticket 2.0 11.0 DX ED Other Charges : Standard ED Encounter TVL Level Translated RTF : Abdominal pain TVL:4 TVL Level for Facility Charge Ticket : Level 4 Arrival Mode Calc : 1 Mode of Arrival ED : Private vehicle [facility] Mode of Arrival Interpreted : Standard [facility] Process Management : None Order Management RTF : Laboratory UA with Culture if Indicated,03/19/16 08:32,DOUG GROSS MD Completed Basic Metabolic Panel,03/19/16 09:15,DOUG GROSS MD Completed CBC (includes Auto Differential),03/19/16 09:15,DOUG GROSS MD Completed Automated Diff-5 Part,03/19/16 09:20,DOUG GROSS MD Completed CT / MRI / Ultrasound US Venous Doppler Lower Ext Right,03/19/16 09:15,DOUG GROSS MD Completed [facility] Order Management : CT/MRI/Ultrasound, Lab tests 30 Minutes Critical Care : No Nursing Notes RTF : Nursing Notes ED Primary Assessment,03/19/16 08:16,CARLIN HUBBARD [employer] COMMUNICATIONS ADMINISTRATOR Nurse Reassess,03/19/16 11:00,CARLIN HUBBARD [employer] COMMUNICATIONS ADMINISTRATOR Nurse Reassess,03/19/16 10:29,CARLIN HUBBARD [employer] COMMUNICATIONS ADMINISTRATOR Nurse Reassess,03/19/16 09:32,JALYN SANCHEZ [employer] COMMUNICATIONS ADMINISTRATOR Nurse Reassess,03/19/16 09:23,CARLIN HUBBARD RN [facility] Nursing Assessment : Triage and 3-5 nursing assessments [facility] Disposition : Discharge Disposition RTF : discharge [facility] Total Points with Diagnosis Control : 11 [facility] Visit Level : 33037 Level 4 Treatments Prior to Arrival : None CARLIN HUBBARD RN - 03/19/2016 12:21 CDT Source: [employer] Document Id: [id number] CDT!19 documented in this encounter Plan of Treatment Upcoming Encounters Date Type Specialty Care Team Description 05/23/2022 Telemedicine Endocrinology Arely Bond M.B., B.Ch. [address] [place] [address] [phone] (Wo rk) documented as of this encounter Procedures Procedure Name Priority Date/Time Associated Diagnosis Comme nts US LOWER EXTREMITY Routine 03/19/2016 9:15 AM Res ults for this VEINS RIGHT CDT procedure are i n the results section. AUTOMATED Routine 03/19/2016 8:49 AM Results f or this DIFFERENTIAL, B CDT procedure ar e in the results section. CBC WITH Routine 03/19/2016 8:49 AM Results f or this DIFFERENTIAL, B CDT procedure ar e in the results section. BASIC METABOLIC Routine 03/19/2016 8:49 AM Result s for this PANEL, S/P CDT procedure are i n the results section. URINALYSIS, Routine 03/19/2016 8:33 AM Results f or this MIDSTREAM, WITH CDT procedure ar e in CULTURE IF the results INDICATED section. documented in this encounter Results US Lower Extremity Veins Right (03/19/2016 9:15 AM CDT) Anatomical Region Laterality Modality Lower Extremity Right Ultrasound Specimen (Source) Anatomical Collection Method Collection Time Re ceived Time Location / / Volume Laterality 03/19/2016 9:15 AM CDT Addenda Addendum by Provider, Thea Mackenzie 03/19/2016 9:15 AM CDT RAD^^^MA US Venous Doppler Lower Ext Right 03/19/2016 09:15:00 Impressions 03/19/2016 10:11 AM CDT Negative for acute DVT, no evidence of a right lower extremity DVT. Narrative 03/19/2016 10:11 AM CDT HISTORY: Right leg pain. Abnormal / posi tive Homans' sign, recent pelvic surgery, strong family history of DVT. Technique: Grayscale and Doppler ultraso und (US) imaging of the right lower extremity (and the left CFV) was p erformed. FINDINGS: Evaluation of the deep venous system in the right lower extremity demonstrates normal compressib ility, Doppler blood flow, augmentation, and lack of intraluminal e chogenicity at this time. Procedure Note Rosaline Brito M.D. / Provider, Santiago cameron M.D. - 10/19/2016 HISTORY: Right leg pain. Abnormal / posi tive Homans' sign, recent pelvic surgery, strong family history of DVT. Technique: Grayscale and Doppler ultraso und (US) imaging of the right lower extremity (and the left CFV) was p erformed. FINDINGS: Evaluation of the deep venous system in the right lower extremity demonstrates normal compressib ility, Doppler blood flow, augmentation, and lack of intraluminal e chogenicity at this time. IMPRESSION: Negative for acute DVT, no e vidence of a right lower extremity DVT. Rosario Bruner R.V.T.SDario IMG US PROCEDURES (ABNORMAL) Automated Differential (03/19/2016 8:49 AM CDT) [facility] Method Time Signature Absolute 3.00 1.70 - POWERCHART Neutrophils 7.00 109L Lymphocytes 3.03 (H) 0.90 - POWERCHART 2.90 X109L Monocytes 0.72 0.30 - POWERCHART 0.90 X109L Eosinophils 0.12 0.05 - POWERCHART 0.50 X109L Absolute 0.02 0.00 - POWERCHART Basophil 0.30 X109L Specimen Anatomical Collection Method Collection Time Receive d Time (Source) Location / / Volume Laterality Blood 03/19/2016 8:49 AM 6 8:49 CDT AM CDT Doug Gross M.D. LAB BLOOD ADD-ON Performing Organization Address City/State/ZIP Code Phon e Number POWERCHART (ABNORMAL) CBC with Differential (03/19/2016 8:49 AM CDT) [facility] Method Time Signature HXDifferential? Auto POWERCHART Leukocytes 6.9 3.5 - 10.5 POWERCHART X109L Erythrocytes 5.20 (H) 3.90 - POWERCHART 5.03 [id number] Hemoglobin 15.6 (H) 12.0 - POWERCHART 15.5 GDL Hematocrit 46.2 (H) 34.9 - POWERCHART 44.5 MCV 88.8 81.6 - POWERCHART 98.3 FL HX RDW 12.9 11.9 - POWERCHART 15.5 Platelet Count 238 150 - 450 POWERCHART X109L Specimen (Source) Anatomical Collection Method Collection Time Re ceived Time Location / / Volume Laterality Blood 03/19/2016 8:49 AM CDT Doug Gross M.D. LAB BLOOD ADD-ON Performing Organization Address City/State/ZIP Code Phon e Number POWERCHART BMP (Basic Metabolic Panel) (03/19/2016 8:49 AM CDT) athologist Signature Sodium, S 138 135 - 145 POWERCHART MMOLL Potassium, S 3.9 3.5 - 5.1 POWERCHART MMOLL Chloride, S 99 98 - 107 POWERCHART MMOLL CO2 Total 27 22 - 29 POWERCHART MMOLL BUN (Blood Urea 9 6 - 24 MGDL POWERCHART Nitrogen), S Creatinine 1.1 0.6 - 1.1 POWERCHART MGDL Calcium, Total, 9.6 8.6 - 10.3 POWERCHART S MGDL Anion Gap 12 7 - 15 MMOLL POWERCHART HXeGFR (MDRD) >60.0 >=60.0 POWERCHART MLMINSA eGFR >60.0 >=60.0 POWERCHART Black/ MLMINSA [place]ien Glucose 98 70 - 140 POWERCHART MGDL Specimen (Source) Anatomical Collection Method Collection Time Re ceived Time Location / / Volume Laterality Blood 03/19/2016 8:49 AM CDT Doug Gross M.D. LAB BLOOD ADD-ON Performing Organization Address City/State/ZIP Code Phon e Number POWERCHART (ABNORMAL) Urinalysis, Midstream, with culture if indicated (03/19/2016 8:33 AM CDT) [facility] Method Time Signature HXUr Color Yellow Colorless POWERCHART Clarity Clear Clear POWERCHART Glucose Negative Negative MGDL POWERCHART HXBILIRUBIN Negative Negative POWERCHART Ketones, QL(U) Negative Negative MGDL POWERCHART Specific 1.015 POWERCHART [place], POCT, U Comment: Reference Range Specific [place]: 1.000-1.035 HXBLOOD Small (A) Negative POWERCHART pH, POCT, Urine 6.5 <5.0 POWERCHART Comment: Reference Range pH: 5.0-8.0 Protein, Ur, Dip Negative Negative MGDL POWERCHAR T Urobilinogen 0.2 0.2 MGDL POWERCHART Comment: Reference Range Urobilinogen: 0.2-1.0 mg/dL HXNITRITE Negative Negative POWERCHART Leukocyte Esterase Negative Negative POWERCHART HXUR WBC. Occ-3 None Seen HPF POWERCHART HXUR RBC. Occ-2 None Seen HPF POWERCHART Casts, Hyaline Occasional (A) None Seen LPF POWERC MEJIA Specimen (Source) Anatomical Collection Method Collection Time Re ceived Time Location / / Volume Laterality Urine, First 03/19/2016 8:33 AM Voided CDT Doug Gross M.D. LAB URINE ORDERABLES Performing Organization Address City/State/ZIP Code Phon e Number POWERCHART documented in this encounter Visit Diagnoses Not on filedocumented in this encounter
--- OUTSIDE RECORDS SUMMARY | 2022-04-12 08:14 | XMS_ITS | Encounter Summary ---
:1995 Author Organization [facility] Address [address] [place] [id number] Care Team Providers Name Role Phone Unavailable Primary Care Provider Unavailable Encounter Details Date Type Department Care Team Description 02/04/2016 Hospital Encounter HX [facility] Georgia Sanders D .O. Social History Tobacco Use Types Packs/Day Years [...] 03/20/2022 relatives? How often do you attend samaritan or scientology services? Never 03/20/2022 Do you belong to any clubs or organizations such as No 03/20/2022 samaritan groups, unions, fraternal or athletic groups, or [...] Sign Reading Time Taken Comments Blood Pressure 114/72 02/04/2016 11:34 PM CDT Pulse 56 02/04/2016 11:34 PM CDT Temperature - - Respiratory Rate 16 02/04/2016 11:34 PM CDT Oxygen Saturation - - Inhaled Oxygen Concentration - - Weight - - Height 162 cm (5' 3.78) 02/04/2016 11:34 PM CDT Body Mass Index - - documented in this encounter Discharge Summaries Clau Leon, RWilla. - 02/04/2016 11:54 PM CDT ED Depart Summary [facility] Emergency Department Clinical Discharge Summary PERSON INFORMATION Name NAZ CHAKRABORTY Age 20 Years 1995 12:00 PM Sex Female Language Tanzanian PCP KALEE MORENO MD Marital Status Single N [id number] Visit Id Visit Reason Abdominal pain; ABD PAIN Specialty Enc Type Emergency Med Service Emergency Medicine Referred by Track Group MAN ED Discharge 02/04/2016 11:45 PM Tracking Id [id number] Checkout 02/04/2016 11:45 PM Checkin 02/04/2016 9:07 PM Acuity 4 -Less Urgent Dispo Type * Discharged to Home or Self Care Arrival 02/04/2016 9:07 PM Reg Status LOS 000 02:38 Address: [address] [place] [phone] Comment: PROVIDER INFORMATION Provider Role Provider Contact Time GEORGIA SANDERS DO ED Provider 02/04/16 21:20 CLAU LEON CIVILIAN JAIL OFFICER Nurse 02/04/16 21:37 DIAGNOSIS Comment: PATIENT EDUCATION INFORMATION Instructions: Abdominal Pain, Adult Follow up: With: Address: When: KALEE MORENO [address] [place] [address] [phone] [facility] (1) Within 2 - 4 days Comments: You should take anti-inflammatories like ibuprofen or aleve for mild pain and percocet for severe pain. You should follow up in clinic in 2-3 days for a recheck. For high fever, pain out of control at home, dehydration or any worrisome or worsening symptoms, return to the ED Source: [facility] POWERCHART Document Id: [id number] Clau Leon R.N. - 02/04/2016 11:54 PM CDT ED Discharge Instructions [facility] [address] [place] [address] Name: NAZ CHAKRABORTY Date of : 1995 12:00 PM Visit Date: 02/04/2016 9:07 PM [facility] Number: [id number] Address: [address] [place] [address] [phone] Primary Care Provider: KALEE MORENO MD IMPORTANT: [facility] [place] would like to thank you for allowing us to assistyou with your healthcare needs. The following includes patient education materials and information regarding your injury/illness. Diagnosis: Follow-Up Instructions: With: Address: When: KALEE MORENO [address] [place] [phone] Business (1) Within 2 - 4 days Comments: You should take anti-inflammatories like ibuprofen or aleve for mild pain and percocet for severe pain. You should follow up in clinic in 2-3 days for a recheck. For high fever, pain out of control at home, dehydration or any worrisome or worsening symptoms, return to the ED Your Upcoming Appointments: Date Time Location Provider No Appointments found Patient Education Materials: Abdominal Pain Abdominal pain is pain in the stomach or intestinal area. Everyone has this pain from time to time. In many cases it goes away on its own. But abdominal pain can sometimes be due to a serious problem, such as appendicitis. So its important to know when to seek help. Causes of abdominal pain There are many possible causes of abdominal pain. Common causes in adults include: ?? Constipation, diarrhea, or gas ?? GERD (movement of stomach acid into the esophagus, also known as acid reflux or heartburn) ?? Peptic ulcer (a sore in the lining of the stomach or small intestine) ?? Inflammation of the gallbladder or pancreas ?? Gallstones or kidney stones ?? Hernia (bulging of an internal organ through a muscle or other tissue) ?? Urinary tract infections ?? In women, menstrual cramps, fibroids, or endometriosis of the uterus ?? Inflammation or infection of the intestines Diagnosing the cause of abdominal pain Your health care provider will examine you to help find the cause of your pain. If needed, tests will be ordered. Because abdominal pain has so many possible causes, it can be hard to discover the reason for the pain. Giving details about your pain can help. Be ready to tell your health care provider where and when you feel the pain and what makes it better or worse. Also mention whether you have other symptoms such as fever, tiredness, nausea, vomiting, or changes in bathroom habits. Treating abdominal pain Certain causes of pain, such as appendicitis or a bowel obstruction, need emergency treatment. Otherproblems can be treated with rest, fluids, or medications. Your health care provider can give you specific instructions for treatment or self-care based on the cause of your pain. If you are have vomiting or diarrhea, sip water or other clear fluids. When you are ready to eat solid foods again, start with small amounts of [id number], low-fat foods, such as applesauce, toast,or crackers. When to call the doctor Call 911 or go to the hospital right away if you: ?? Cant pass stool and are vomiting ?? Are vomiting blood or have black tarry diarrhea ?? Also have chest, neck, or shoulder pain ?? Feel like you are about to pass out ?? Have pain in your shoulder blades with nausea ?? Have sudden, excruciating abdominal pain ?? Have new, severe pain unlike any you have felt before ?? Have a belly that is rigid, hard, and tender to touch Call your doctor if you have: ?? Pain for more than 5 days ?? Bloating for more than 2 days ?? Diarrhea for more than 5 days ?? Fever of 101?F or higher ?? Pain that continues to worsen ?? Unexplained weight loss ?? Continued lack of appetite ?? Blood in the stool How to prevent abdominal pain Here are some tips to help prevent abdominal pain: ?? Eat smaller amounts of food at one time. ?? Avoid greasy, fried, or other high-fat foods. ?? Avoid foods that give you gas. ?? Exercise regularly. ?? Drink plenty of fluids. To help prevent symptoms of gastroesophageal reflux (GERD): ?? Quit smoking. ?? Lose excess weight. ?? Finish eating at least 2 hours before you go to bed or lie down. ?? Elevate the head of your bed. ?? [id number] [facility], [address] [place] [address], [place] [address]. All rights reserved. This information is not [...] if you dont have one. Go to [email or web address] and click on Create Your Account. Then, follow the directions to complete the online form. Youll be asked for your [facility] number which you can find at the top of this document. ED Tests and Procedures: Order Status Urinalysis with Culture if Indicated Completed Discharge Prescriptions & Home Medications: Medication/Strength Dose Route Frequency Indications/Special Instructions/Comments/Notes oxyCODONE-acetaminophen (oxyCODONE-acetaminophen 5 mg-325 mg oral tablet) 1 tab(s) Oral every 6 hours as needed for Pain No more than 4,000mg acetaminophen/24hrs *HYDROcodone-acetaminophen (Popejoy 5 mg-325 mg oral tablet) 1 tab(s) [...] arrange a ride home with a responsible constitution party. DAVION Domingo KALLIE MARIE , or responsible constitution party have received this information and my questions have been answered. I have discussed any challenges I see with this plan with the nurse or physician. Patient Signature or Responsible Republican/Relationship Date Time Provider Signature Date Time IMPORTANT: [...] arrange a ride home with a responsible constitution party. DAVION Domingo KALLIE MARIE , or responsible constitution party have received this information and my questions have been answered. I have discussed any challenges I see with this plan with the nurse or physician. Patient Signature or Responsible Republican/Relationship Date Time Provider Signature Date Time Source: [facility] POWERCHART Document Id: [id number] documented in this encounter Medications at Time of Discharge Medication Sig Dispensed Refills Start Date End Date albuterol (PROVENTIL Inhale 2 puffs. 0 12/24/2014 [...] documented as of this encounter ED Notes Clau Leon R.N. - 02/04/2016 11:45 PM CDT ED Disposition Summary ED Disposition Summary Entered On: 02/04/2016 23:53 CDT Performed On: 02/04/2016 23:45 CDT by CLAU LEON RN ED Disposition Summary Present in Room During Exam/Procedure : Alone Mode of Discharge : Ambulatory Transportation : Private vehicle Printed Discharge Instructions Given to Patient : Yes Patient Status at Discharge from ED : Improved Comment : script for percocet given to pt to fill in am at own pharmacy CLAU LEON RN - 02/04/2016 23:52 CDT Source: [employer] Document Id: [id number] CDT!8 Clau Leon R.N. - 02/04/2016 11:45 PM CDT ED Education ED Education Entered On: 02/04/2016 23:53 CDT Performed On: 02/04/2016 23:45 CDT by CLAU LEON RN Education ED Education Grid Topics : Pain management, Plan of care, When to call health care provider Individuals Taught : Patient Barriers to Learning : None evident Teaching Method : Explanation CLAU LEON RN - 02/04/2016 23:53 CDT Source: [employer] Document Id: [id number] CDT!8 Georgia Sanders D.O. - 02/04/2016 11:32 PM CDT Abdominal pain Patient: NAZ CHAKRABORTY Age: 20 years Sex: Female : 1995 Author: GEORGIA SANDERS DO Attachments: None Basic Information Time seen: Date 02/04/2016. History source: Patient. Arrival mode: Private vehicle. History limitation: None. Additional information: Chief Complaint from Nursing Triage Note : Chief Complaint Description 02/04/2016 21:12 CDT Chief Complaint Description pt presents with complaints of ovarian pain states diagnosed with ovarian cysts in past and has been dealing with the pain for past few months. [facility] for cyst removal in one month at the [facility]. states unable to deal with . History of Present Illness Patient is a 20-year-old transgender male who presents with lower abdominal pain. He has had this pain off and on since October. He was evaluated, had a cat scan of the abdomen pelvis and was told that he has ovarian cysts. He follow up in clinic with the INFORMATION SECURITY DIRECTOR nurse practitioner who did an ultrasound which showed that cysts were gone at this time. He also had a repeat ultrasound approximately 1 month later which showed that the cysts were not there at this time either. He takes testosterone therapy. He did say that he followed up with his prescribers of that at the [facility] on last week. They told him that the testosterone causes the ovaries and uterus to shrink down whichcan cause pain. The patient states that he declined pain medicine at that time. However, over the past 2 or 3 days, pain has been worsening. Pain is located in the lower abdomen, is constant, a sharp pressure, and is not made better or worse by anything. Pain is described as severe and does not radiate. He denies constipation or diarrhea. He has not had dysuria. He occasionally feels nauseated due the pain but denies vomiting. No prior abdominal surgeries. He is scheduled for a hyster/oopherectomy in 1 month, but wants the procedure done sooner. Review of Systems Constitutional symptoms: Negative except as documented in HPI. Respiratory symptoms: Negative except as documented in HPI. Cardiovascular symptoms: Negative except as documented in HPI. Gastrointestinal symptoms: Negative except as documented in HPI. Musculoskeletal symptoms: Negative except as documented in HPI. Neurologic symptoms: Negative except as documented in HPI. Health Status Allergies: Allergic Reactions (Selected) NKA. 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 Surgical history: No active procedure history items have been selected or recorded., Reviewed as documented in chart. Family history: No family history items have been selected or recorded.. Physical Examination Vital Signs: Vital Signs 02/04/2016 22:15 CDT Temperature Core 36.7 DegC Peripheral Pulse Rate 52 /min LOW Respiratory Rate 16 /min SpO2 98 % Systolic Blood Pressure 119 mmHg Diastolic Blood Pressure 71 mmHg BP Location Left upper 02/04/2016 21:12 CDT Temperature Core 36.9 DegC Peripheral Pulse Rate 55 /min LOW Respiratory Rate 18 /min SpO2 99 % Systolic Blood Pressure 123 mmHg Diastolic Blood Pressure 86 mmHg Mean Arterial Pressure 98 mmHg BP Location Right upper , Measurements 02/04/2016 22:15 CDT Height 162 cm 02/04/2016 21:12 CDT Height 162 cm Height Source Stated Dosing Weight 69.00 kg NA Estimated Weight 69 kg , SpO2 02/04/2016 22:15 CDT SpO2 98 % 02/04/2016 21:12 CDT SpO2 99 % . General: Alert and no acute distress. Skin: Warm and dry. Head: Normocephalic and atraumatic. Neck: Supple. Eye: Pupils are equal, round and reactive to light and extraocular movements are intact. Ears, nose, mouth and throat: Oral mucosa moist and no pharyngeal erythema or exudate. Cardiovascular: Regular rate and rhythm, No murmur and Normal peripheral perfusion. Respiratory: Lungs are clear to auscultation, respirations are non-labored and breath sounds are equal. Gastrointestinal: Soft, Non distended and There is tenderness over the suprapubic area which is mild. There is no rebound or guarding. There is no appreciable right lower quadrant tenderness. Back: Nontender, Normal range of motion and no skin abnormalities or focal tenderness. Musculoskeletal: Normal ROM. normal strength. Neurological: Alert and oriented to person, place, time, and situation and No focal neurological deficit observed. Psychiatric: Cooperative. Medical Decision Making Differential Diagnosis:Abdominal pain, urinary tract infection, ovarian cyst, not Appendicitis. Documents reviewed:Emergency department nurses' notes. Results review:Lab results : Lab View 02/04/2016 22:14 CDT UA Color Yellow UA Clarity Clear UA Spec Grav 1.015 UA pH 6.5 UA Protein Negative mg/dL UA Glucose Negative mg/dL UA Ketones Negative mg/dL UA Bili Negative UA Urobilinogen 0.2 mg/dL UA Blood Negative UA Nitrite Negative UA Leuk Est Negative UR WBC None Seen /HPF UR RBC None Seen /HPF UR Squamous Epi Cells Occ-3 /HPF . Notes:Patient presents with abdominal pain which has been relatively chronic in nature over the past3 months. He has had extensive workup for this pain without a concrete cause. He has a benign abdominal exam, so I do not suspect appendicitis or ovarian torsion. I offered to do lab work and to repeatthe CT scan of the abdomen to rule out any further emergencies in he declined. He states he is here for pain control and he hopes to get a hysterectomy done sooner. He states, I was going to drive up there (the [facility]), but I didn't think they'd take it out tonight. UA was checked and was negative. I did give him two Percocet pills. Following this, he fell asleep. Pain at this time is not 2 out of 10 and is tolerable. He is able to eat and drink without exacerbation of the pain or vomiting. He does not desire any further workup at this time but would prefer prescription of the pain medicine. We discussed side effect of these medications including constipation. I advised to continue the MiraLAX to prevent this. He has follow up with his primary physician in a couple days for recheck of the abdomen. Patient should return for any worrisome or worsening symptoms (see below) to see. Patient is agreeable with plan of care. Impression and Plan Diagnosis Abdominal pain Plan Condition: Stable. Disposition: Discharged: to home. Prescriptions: Prescription Er Nurse Pharmacy: oxyCODONE-acetaminophen 5 mg-325 mg oral tablet (Prescribe): 1 tab(s), PO, q6hr, PRN: Pain, 20 tab(s), 0 Refill(s). Patient was given the following educational materials: Abdominal Pain, Adult. Follow up with: KALEE MORENO Within 2 - 4 days You should take anti- inflammatories like ibuprofen or aleve for mild pain and percocet for severe pain. You should follow up in clinic in 2-3 days for a recheck. For high fever, pain out of control at home, dehydration or any worrisome or worsening symptoms, return to the ED. Counseled: Patient, Regarding diagnosis, Regarding diagnostic results, Regarding treatment plan, Regarding prescription, Patient indicated understanding of instructions. Electronically Signed By: GEORGIA SANDERS DO On: 02/04/2016 11:47 PM [facility] Document Id: [id number]} Clau Leon R.N. - 02/04/2016 11:30 PM CDT ED Nurse Reassess ED Nurse Reassess Entered On: 02/04/2016 23:39 CDT Performed On: 02/04/2016 23:30 CDT by CLAU LEON RN Pain Assessment Pain Symptoms : Yes CLAU LEON RN - 02/04/2016 23:38 CDT Pain Scale Pain Scale Verbal 0-10 : Open CLAU LEON RN - 02/04/2016 23:38 CDT Pain Pain Assessment Grid Pain 1 Location : Abdomen Intensity : 2 CLAU LEON RN - 02/04/2016 23:38 CDT /OB Reassess /OB Note : pt had slept for short time. states pain in still there but improved. will plan to discharge to home. talking with pt. CLAU LEON RN - 02/04/2016 23:38 CDT Source: [employer] Document Id: [id number] CDT!12 Clau Leon R.N. - 02/04/2016 10:40 PM CDT ED Nurse Reassess ED Nurse Reassess Entered On: 02/04/2016 23:38 CDT Performed On: 02/04/2016 22:40 CDT by CLAU LEON RN Pain Assessment Pain Symptoms : Yes CLAU LEON RN - 02/04/2016 23:37 CDT /OB Reassess /OB Note : states no relief from pain medication at this time. will allow to rest, light dimmed and pt will try to rest. no nausea CLAU LEON RN - 02/04/2016 23:37 CDT Source: [employer] Document Id: [id number] CDT!5 Clau Leon R.N. - 02/04/2016 10:15 PM CDT ED Nurse Reassess ED Nurse Reassess Entered On: 02/04/2016 22:51 CDT Performed On: 02/04/2016 22:15 CDT by CLAU LEON RN Pain Assessment Pain Symptoms : Yes CLAU LEON RN - 02/04/2016 22:50 CDT /OB Reassess /OB Note : up to bathroom to void. steady on feet. states pain is still 10. will given percocet CLAU LEON RN - 02/04/2016 22:50 CDT Source: [employer] Document Id: [id number] CDT!5 Clau Leon R.N. - 02/04/2016 9:12 PM CDT ED Primary Assessment Document Has Been Updated ED Primary Assessment Entered On: 02/04/2016 21:16 CDT Performed On: 02/04/2016 21:12 CDT by CLAU LEON RN Reason For Visit (As Of: 02/04/2016 22:08:33 CDT) Problems(Active) Dysphoria Gender Adolescent Or Adult (ICD-10-CM :F64.1 ) Name of Problem: Dysphoria Gender Adolescent Or Adult ; Recorder: FELI GROSS MD; Confirmation: Confirmed ; Classification: Medical ; Code: F64.1 ; Contributor System: Tongxue ; Last Updated: 08/02/2015 3:41 [employer] ; Life Cycle Date: 2015 ; Life Cycle Status: Active ; Vocabulary: ICD-10-CM Migraine Headache (WHITE) NOS (ICD-10-CM :G43.909 ) Name of Problem: Migraine Headache (WHITE) NOS ; Recorder: FELI GROSS MD; Confirmation: Confirmed ; Classification: Medical ; Code: G43.909 ; Contributor System: Tongxue ; Last Updated: 08/02/2015 3:41 [employer] ; Life Cycle Date: 08/02/2015 ; Life Cycle Status: Active ; Vocabulary: ICD-10-CM Diagnoses(Active) Abdominal pain Date: 02/04/2016 ; Diagnosis Type: Reason For Visit ; Confirmation: Complaint of ; Clinical Dx: Abdominal pain ; Classification: Medical ; Clinical Service: Emergency medicine ; Code: PNED ; Probability: 0 ; Diagnosis Code: [id number] Triage Chief Complaint Description : pt presents with complaints of ovarian pain states diagnosed with ovarian cysts in past and has been dealing with the pain for past few months. [facility] for cyst removal in one month at the [facility]. states unable to deal with (Comment: the pain until then. taking 6-8 tabs of meds with no relief. states aleve and ibuprofen with no relief. states nausea but no emesis. denies urinary symptoms [CLAU LEON RN - 02/04/2016 22:06 CDT] ) CLAU LEON RN - 02/04/2016 22:06 CDT Vital Signs Assessed : Yes CLAU LEON RN - 02/04/2016 21:16 CDT Information Given By : Patient Present in Room During Exam/Procedure : Alone Mode of Arrival ED : Private vehicle Track : Medical Languages : Tanzanian Treatments Prior to Arrival : Acetaminophen Are you ? : No Is Patient Female and 13-50 no hysterectomy : Yes Status : Patient denies CLAU LEON RN - 02/04/2016 21:12 CDT Vital Signs Temperature Core : 36.9 DegC(Converted to: 98.4 DegF) Peripheral Pulse Rate : 55 /min (LOW) Respiratory Rate : 18 /min Systolic Blood Pressure : 123 mmHg Diastolic Blood Pressure : 86 mmHg NIBP Mean : 98 mmHg BP Location : Right upper extremity SpO2 : 99 % Oxygen Saturation Monitoring Frequency : Intermittent Oxygen Therapy : Room air Height : 162 cm(Converted to: 5 ft 4 inch(es)) Height Source : Stated Estimated Weight : 69 kg Estimated Weight Conversion to Pounds : 151.8 lb CLAU LEON RN - 02/04/2016 21:16 CDT Pain Assessment Pain Symptoms : Yes CLAU LEON RN - 02/04/2016 21:12 CDT Pain Scale Pain Scale Verbal 0-10 : Open CLAU LEON RN - 02/04/2016 21:12 CDT Pain Pain Assessment Grid Pain 1 Location : Abdomen Laterality : Bilateral Intensity : 10 CLAU LEON RN - 02/04/2016 21:12 CDT Comfort Measures Comfort Measures Grid Comfortable Environment : Yes Positioning : Yes Rest : Yes CLAU LEON RN - 02/04/2016 21:12 CDT ED Physician Notification Time ED Physician Notification Time : 02/04/2016 21:14 CDT CLAU LEON RN - 02/04/2016 21:12 CDT ANA ANA Level 1 : No ANA Level 2 : No ANA Level 3 : One CLAU LEON RN - 02/04/2016 21:37 CDT DCP GENERIC CODE Tracking Acuity : 4 -Less Urgent CLAU LEON RN - 02/04/2016 21:37 CDT Tracking Group : [facility] ED Allergy (As Of: 02/04/2016 21:16:10 CDT) Allergies (Active) NKA Estimated Onset Date: Unspecified ; Created By: ERIC LOPEZ RN; Reaction Status: Active ; Substance: NKA ; Type: Allergy ; Updated By: ERIC LOPEZ RN; Reviewed Date: 02/04/2016 21:14 CDT ID Screen Drug Resistant Organism : No CLAU LEON RN - 02/04/2016 21:12 CDT Respiratory Airway : Patent Respirations : Unlabored Respiratory Pattern : Regular Oxygen Therapy : Room air CLAU LEON RN - 02/04/2016 21:12 CDT Cardiovascular Heart Rhythm : Regular Skin Color : Normal for ethnicity Skin Description : Dry Skin Temperature : Warm CLAU LEON RN - 02/04/2016 21:12 CDT Neurological Last Well Time Known : Not applicable Level of Consciousness : Alert Orientation : Oriented x 3 Characteristics of Speech : Clear Neuro Patient Stated Symptoms : None Gait : Steady CLAU LEON RN - 02/04/2016 21:12 CDT ED Psychosocial Affect/Behavior : Calm, Cooperative Domestic Abuse Concerns : None Behavioral Health Screen/Safety Assmt : Unable to obtain CLAU LEON RN - 02/04/2016 21:12 CDT Gastrointestinal Nutrition ED : Adequate GI Detailed Assessment : Yes CLAU LEON RN - 02/04/2016 21:12 CDT GI Detailed GI Patient Stated Symptoms : Abdominal pain, Nausea CLAU LEON RN - 02/04/2016 21:12 CDT /OB Assessment Patient Stated Symptoms : None CLAU LEON RN - 02/04/2016 21:12 CDT Integumentary Integumentary Patient Stated Symptoms : None CLAU LEON RN - 02/04/2016 21:12 CDT Musculoskeletal Fall Prevention Education Provided : CLAU JONES RN - 02/04/2016 21:12 CDT Social Habits Exposure to Tobacco Smoke : Patient smokes Smoking Status : Former smoker Tobacco 2A : Yes Tobacco Use/Currently Using : No Tobacco Use/Last 30 Days : No Tobacco Use/Last 12 months : Yes Type : Cigarettes: Less than 20 per day Tobacco Use/Advised to Quit : Yes CLAU LEON RN - 02/04/2016 21:12 CDT Alcohol Use Grid Alcohol Use : Yes Frequency : Weekly CLAU LEON RN - 02/04/2016 21:12 CDT Recreational Drug Use Grid Drug Use : None CLAU LEON RN - 02/04/2016 21:12 CDT Source: [employer] Document Id: [id number] CDT!3 documented in this encounter Miscellaneous Notes Miscellaneous - Clau Leon R.N. - 02/04/2016 11:45 PM CDT Valuables/Belongings Valuables/Belongings Entered On: 02/04/2016 23:53 CDT Performed On: 02/04/2016 23:45 CDT by CLAU LEON RN Valuables/Belongingnaomy Room Orientation/Facility Policy Reviewed : Yes Home Medication Disposition : None brought in with patient CLAU LEON RN - 02/04/2016 23:53 CDT [facility] Document Id: [id number] CDT!4 Miscellaneous - Conversion, Historical Provider Ser - 02/04/2016 11:45 PM CDT Coding Summary-Paper Based CODING DATE: 02/13/2016 FINAL [facility] STATUS: * Discharged to Home or Self Care PAYOR: [employer] ADMIT DX: R10.30 Lower abdominal pain, unspecified REASON FOR VISIT DX: R10.30 Lower abdominal pain, unspecified FINAL DX: PRINCIPAL: R10.33 Periumbilical pain SECONDARY: Z87.891 Personal history of nicotine dependence PROCEDURES DOCTOR NAME DATE NOTE: The code number assigned matches the documented diagnosis and / or procedure in the patient's chart. However, the narrative phrase printed from the coding software may appear abbreviated, or result in slightly different terminology. Coded By: JOHN GRECO Date Saved: 02/13/2016 06:32 am [facility] Document Id: [id number] Miscellaneous - Clau Leon R.N. - 02/04/2016 9:07 PM CDT Facility Charge Ticket 2.0 11.0 DX Facility Charge Ticket 2.0 11.0 DX Entered On: 02/04/2016 23:53 CDT Performed On: 02/04/2016 21:07 CDT by CLAU LEON RN Facility Charge Ticket 2.0 11.0 DX ED Other Charges : Standard ED Encounter TVL Level Translated RTF : Abdominal pain TVL:4 TVL Level for Facility Charge Ticket : Level 4 Arrival Mode Calc : 129 Mode of Arrival ED : Private vehicle [facility] Mode of Arrival Interpreted : Standard [facility] Process Management : None Order Management RTF : Laboratory Urinalysis with Culture if Indicated,02/04/16 22:12,GEORGIA SANDERS DO Completed [facility] Order Management : Lab tests 30 Minutes Critical Care : No Nursing Notes RTF : Nursing Notes ED Primary Assessment,02/04/16 21:12,CLAU LEON [employer] Nurse Reassess,02/04/16 23:30,CLAU LEON [employer] Nurse Reassess,02/04/16 22:40,CLAU LEON [employer] Nurse Reassess,02/04/16 22:15,CLAU LEON RN [facility] Nursing Assessment : Triage and 1-2 nursing assessments [facility] Disposition : Discharge Disposition RTF : discharge [facility] Total Points with Diagnosis Control : 8 [facility] Visit Level : 53961 Level 4 Treatments Prior to Arrival : Acetaminophen CLAU LEON RN - 02/04/2016 23:53 CDT Source: [facility] [employer] Document Id: [id number] CDT!19 documented in this encounter Plan of Treatment Upcoming Encounters Date Type Specialty Care Team Description 05/23/2022 Telemedicine Endocrinology Arely Bond M.B., B.Ch. [address] [place] [address] [phone] (Wo rk) documented as of this encounter Procedures Procedure Name Priority Date/Time Associated Diagnosis Comme nts URINALYSIS, Routine 02/04/2016 10:14 PM Results for this MIDSTREAM, WITH CDT procedure ar e in CULTURE IF the results INDICATED section. documented in this encounter Results (ABNORMAL) Urinalysis, Midstream, with culture if indicated (02/04/2016 10:14 PM CDT) [facility] Method Time Signature HXUr Color Yellow Colorless POWERCHART Clarity Clear Clear POWERCHART Glucose Negative Negative MGDL POWERCHART HXBILIRUBIN Negative Negative POWERCHART Ketones, QL(U) Negative Negative MGDL POWERCHART Specific 1.015 POWERCHART [place], POCT, U Comment: Reference Range Specific [place]: 1.000-1.035 HXBLOOD Negative Negative POWERCHART pH, POCT, Urine 6.5 <5.0 POWERCHART Comment: Reference Range pH: 5.0-8.0 Protein, Ur, Dip Negative Negative MGDL POWERCHAR T Urobilinogen 0.2 0.2 MGDL POWERCHART Comment: Reference Range Urobilinogen: 0.2-1.0 mg/dL HXNITRITE Negative Negative POWERCHART Leukocyte Esterase Negative Negative POWERCHART HXUR WBC. None Seen None Seen HPF POWERCHART HXUR RBC. None Seen None Seen HPF POWERCHART Squamous Epithelial Occ-3 (A) None Seen HPF POWERC MEJIA Specimen (Source) Anatomical Collection Method Collection Time Re ceived Time Location / / Volume Laterality Urine, First 02/04/2016 10:14 Voided PM CDT Georgia Sanders D.O. LAB URINE ORDERABLES Performing Organization Address City/State/ZIP Code Phon e Number POWERCHART documented in this encounter Visit Diagnoses Not on filedocumented in this encounter
--- OUTSIDE RECORDS SUMMARY | 2022-04-12 08:14 | XMS_ITS | Encounter Summary ---
:1995 Author Organization [facility] Address [address] [place] [address] Care Team Providers Name Role Phone Bella Sears M.D. Primary Care Provider [phone] Reason for Visit Reason Comments Blood in Urine Patient presents to ED with concerns for pos-op complication of hematuria after an f-m valvo palsty done 7 weeks ago. Patient has had consistent hematuria which i s abnormal, as well complains of severe bladder spasms. Encounter Details Date Type Department Care Team Description 12/23/2017 - Emergency [facility] Christopher Bowling He maturia (Primary 12/24/2017 Department M.D. Dx) [address] [place] [address] [id number] [phone] Social History Tobacco Use Types Packs/Day Years Used Date Smoking Tobacco: Former Smokeless Tobacco: Never Alcohol Habits Answer Date Recorded How often [...] 03/20/2022 relatives? How often do you attend yazidism or mu-ism services? Never 03/20/2022 Do you belong to any clubs or organizations such as No 03/20/2022 yazidism groups, unions, fraternal or athletic groups, or [...] place to sleep or slept in a group home (including now)? Sex Assigned at Date Recorded Female 03/20/2022 7:54 AM CDT documented as of this encounter Last Filed Vital Signs Vital Sign Reading Time Taken Comments Blood Pressure 118/79 12/24/2017 1:00 AM CDT Pulse 79 12/24/2017 1:00 AM CDT Temperature 37 ??C (98.6 ??F) 12/24/2017 1:00 AM CDT Respiratory Rate 16 12/24/2017 1:00 AM CDT Oxygen Saturation 99% 12/24/2017 1:00 AM CDT Inhaled Oxygen Concentration - - Weight 77.1 kg (170 lb) 12/23/2017 10:10 PM CDT Height 162.6 cm (5' 4) 12/23/2017 10:10 PM CDT Body Mass Index 29.18 12/23/2017 10:10 PM CDT documented in this encounter Discharge Instructions Discharge InstructionsConChristopher yusuf M.D. - 12/24/2017 12:40 AM CDT Drink plenty of fluids to clear the urine. Follow up with your primary care physicians. Return to ERfor worsening pain, fevers, chills, vomiting. AttachmentsThe following attachments cannot be sent through Care Everywhere. Hematuria Adult (Swedish)Managing Your Suprapubic Catheter (Swedish)documented in this encounter Medications at Time of [...] 5 % Apply topically. 0 201612/01/2019 ointment Misc Prescription Misc Prescription See 0 016 [...] documented as of this encounter ED Notes Christopher Bowling M.D. - 12/24/2017 12:05 AM CDT CHIEF COMPLAINT/REASON FOR VISIT Bloody urine HISTORY OF PRESENT ILLNESS Pablo Chakraborty is a 22 y.o. male who presents to the ED for evaluation of hematuria. Patient has a somewhat complicated transgender surgical history. He has had previous bilateral mastectomy as well as surgery on November 07 with genital reconstruction surgery. He denies any fevers, chills, abdominal or back pain. He did notice increasing redness in his urine over the past 24-48 hours. He has an indwelling suprapubic catheter in place. There has been no foul- smelling odor or purulent discharge. Hehas noted more ???bladder spasms tonight. Hydrocodone has worked in the past. He is currently taking twice daily Lovenox injections for DVT prophylaxis. He states he called his surgeon from [place] who advised him to be seen in an emergency department. No chest pain, shortness of breath, or any other concerns. The patient is present with his mother and no further complaints are voiced. Past medical history: Reviewed in the EMR. Agree with nursing documentation. Pertinent past medical history noted per HPI. History reviewed. No pertinent past medical history. No family history on file. Social history: Reviewed in the EMR. Agree with nursing documentation. Pertinent social history noted per HPI. Social History Substance Use Topics ??? Smoking status: Former Smoker ??? Smokeless tobacco: Not on file ??? Alcohol use Not on file Allergies: NKDA Medications: Reviewed in [facility] Everywhere. REVIEW OF SYSTEMS Constitutional: As noted in the HPI, otherwise negative. Eyes: As noted in the HPI, otherwise negative. HEENT: As noted in the HPI, otherwise negative. CV: As noted in the HPI, otherwise negative. Resp: As noted in the HPI, otherwise negative. GI: As noted in the HPI, otherwise negative. : As noted in the HPI, otherwise negative. MSK: As noted in the HPI, otherwise negative. Skin: As noted in the HPI, otherwise negative. Neuro: As noted in the HPI, otherwise negative. PHYSICAL EXAMINATION Vitals: 12/23/17 2210 BP: 132/90 BP Location: Left arm Patient Position: Sitting Pulse: (!) 112 Resp: 18 Temp: 36.7 ??C TempSrc: Temporal SpO2: 96% Weight: 77.1 kg Height: 162.6 cm Physical Exam General: well -developed, no acute distress, cooperative HEENT: at, nc; PERRLA, EOMI. Nasopharynx normal, mucous membranes moist Neck: non-tender, no adenopathy or JVD CV: RRR, s1, s2, no murmur, rubs or gallops, normal peripheral pulses and cap refill Pulm: clear to auscultation bilaterally, no tachypnea or retractions, no wheezes or rhonchi Abd: soft, non-tender, non-distended. No mass, no guarding, rebound or rigidity, suprapubic catheterin place, site is c/d/i. DISINTEGRATOR : Phalloplasty in place with normal color, sutures intact at the site, no surrounding erythema, warmth or incisional drainage, dehiscence. No scrotal edema or infection. Non-tender. Ms/Ext: normal ROM in all four joints, no edema or tenderness Back/Spine: no CVA or midline tenderness. Neuro: Alert, awake oriented appropriately, equal strength and sensation, normal steady gait. Skin: right thigh site is clean, dry and intact. Small areas of scabbing but no infection. Psych: normal mood and affect MEDICAL DECISION MAKING / ED COURSE: Differential diagnoses: UTI, cystitis, hematuria, bleeding disorder, postoperative infection, anemia, postsurgical infection. Rational: 22-year-old transgender male presents to emergency department with his mother. The patient was instructed to present to the ER for evaluation of hematuria. He is in no acute distress and is afebrile. There is no findings to suggest acute urinary retention, pyelonephritis, sepsis, or postsurgical infection. Per his request I did speak with his plastic surgeon Dr[facility]. If these are otherwise normal the patient can be discharged home. He has a scheduled follow-up appointment on Tuesday December 26, 2017. Patient's labs are unremarkable no evidence to suggest acute kidney injury, dehydration, electrolyte abnormality, anemia, or coagulopathy. Platelets are within normal limits. We did discuss the possibility of his anticoagulation with Lovenox could cause some mild hematuria, however there is no signs of significant active brisk bleeding with clots. -- Nursing documentation and prior records reviewed in the medical record. -- I personally reviewed, and discussed with the patient the results of labs as reported in the medical record. The patient's urinalysis was sent for culture. He was instructed to follow up as scheduled with his plastic surgeon. They can return for worsening pain, fevers, chills, vomiting or any otherconcerns. He was discharged home in good condition with his mother. Administrations This Visit HYDROcodone-acetaminophen 5-325 mg per tablet 1 tablet (NORCO) Admin Date 12/24/2017 Action Given Dose 1 tablet Route oral Administered By Deja Smith RAdebayo FINAL DIAGNOSIS: 1. Hematuria Active 2. S/p Suprapubic catheterization 3. S/p Phalloplasty and genital reassignment surgery. DIAGNOSTIC RESULTS Labs Reviewed CBC WITH DIFFERENTIAL, B - Abnormal Result Value Hemoglobin 13.3 Hematocrit 40.4 Erythrocytes 4.34 (*) MCV 93.1 RBC Distrib Width 13.3 Platelet Count 330 (*) Leukocytes 6.1 Neutrophils 2.66 Lymphocytes 2.68 Monocytes 0.62 Eosinophils 0.07 Basophils 0.03 BASIC METABOLIC PANEL, S/P Potassium, P 3.9 Sodium, P 137 Chloride, P 98 Bicarbonate, P 26 Anion Gap, P 13 BUN, P 14 Creatinine, P 0.91 eGFR Black >90 eGFR Non-Black >90 Calcium, Total 9.5 Glucose, P 105 PROTHROMBIN TIME (PT), P Prothrombin Time, P 9.8 INR 1.0 ACTIVATED PARTIAL THROMBOPLASTIN TIME (APTT), P APTT, P 27.5 Christopher Bowling M.D. 12/24/17 0209 documented in this encounter Plan of Treatment Upcoming Encounters Date Type Specialty Care Team Description 05/23/2022 Telemedicine Endocrinology Arely Bond M.B., B.Ch. [address] [place] [address] [phone] (Wo rk) documented as of this encounter Procedures Procedure Name Priority Date/Time Associated Comments Diagnosis URINALYSIS WITH STAT 12/24/2017 12:49 Results for this MICROSCOPIC IF AM CDT procedure are in INDICATED, U the results section. MICROSCOPIC MANUAL STAT 12/24/2017 12:49 Resul ts for this AM CDT procedure are i n the results section. BACTERIAL CULTURE, STAT 12/24/2017 12:49 Resul ts for this AEROBIC + SUSC, URINE AM CDT proced ure are in the results section. ACTIVATED PARTIAL STAT 12/23/2017 11:27 Result s for this THROMBOPLASTIN TIME PM CDT procedur e are in (APTT), P the results section. PROTHROMBIN TIME (PT), STAT 12/23/2017 11:27 R esults for this P PM CDT procedure are i n the results section. CBC WITH DIFFERENTIAL, STAT 12/23/2017 11:27 R esults for this B PM CDT procedure are i n the results section. BASIC METABOLIC PANEL, STAT 12/23/2017 11:27 R esults for this S/P PM CDT procedure are i n the results section. documented in this encounter Results (ABNORMAL) Microscopic Manual (12/24/2017 12:49 AM CDT) P athologist Signature White Blood 4-10 (A) /hpf 12/24/2017 [facility] Cells 1:12 AM CDT [facility] Comment: ----REFERENCE VALUE---- Males: 0-3 Females: 0-10 Unknown: 0-10 Red Blood Cells >100 (A) 0 - 2 /hpf 12/24/2017 1:12 AM CDT [facility] Comment: Grossly bloody sample Dysmorphic Red Blood <=25 <=25 % 12/24/2017 1:12 AM [facility] Cells T [facility] Squamous Cells None Seen /hpf 12/24/2017 1:12 AM [facility] T [facility] Bacteria Present (A) None Seen 12/24/2017 1:12 AM [facility] CDT [facility] Specimen Anatomical Collection Method Collection Time Receive d Time (Source) Location / / Volume Laterality Urine 12/24/2017 12:49 12/24/2017 1:04 AM CDT AM CDT Christopher Bowling M.D. LAB URINE ORDERABLES Performing Organization Address City/State/ZIP Code Phon e Number [address] [address] [place] Bacterial Culture, Aerobic + Susc, Urine (12/24/2017 12:49 AM CDT) Patholo gist Method Time Signature Bacterial No growth 12/25/2017 [facility] Culture, after 1 day 8:53 AM CDT HEALTH Aerobic, Urine of SYSTEM- incubation. [facility] Specimen (Source) Anatomical Collection Method Collection Time Re ceived Time Location / / Volume Laterality Urine (Urine, 12/24/2017 12:49 12/24/2017 2:09 Indwelling AM CDT PM CDT Catheter) Comment: Specimen Source Site: Urine Christopher Bowling M.D. LAB MICROBIOLOGY - GENERAL O RDERABLES Performing Organization Address City/State/ZIP Code Phon e Number [facility] [address] [place] [address] LAB (ABNORMAL) Urinalysis with Microscopic if Indicated (12/24/2017 12:49 AM CDT) P athologist Signature Source Catheter 12/24/2017 [facility] 1:03 AM CDT [facility] Clarity Turbid (A) Clear 12/24/2017 [facility] 1:03 AM [facility] Color Red (A) 12/24/2017 [facility] 1:03 AM CDT [facility] Comment: ----REFERENCE VALUE---- Colorless Yellow Debby Blood SEE COMMENT Negative 12/24/2017 1:03 AM CDT [facility] [place] [facility] Comment: Unable to determine due to colo r interference Nitrite SEE COMMENT Negative 12/24/2017 1:03 AM CDT [facility] Comment: Unable to determine due to colo r interference Leukocyte Esterase SEE COMMENT Negative 12/24/2017 1:03 AM CDT [facility] Comment: Unable to determine due to colo r interference Protein SEE COMMENT mg/dL 12/24/2017 1:03 AM CDT [facility] [place] Comment: Unable to determine due to color interfe rence ----REFERENCE VALUE---- Negative Trace Glucose SEE COMMENT Negative mg/dL 12/24/2017 1:[address] [facility] [place] [facility] Comment: Unable to determine due to colo r interference Ketones, QI(U) SEE COMMENT Negative mg/dL 12/24/2017 1:03 AM [facility] [place] Comment: Unable to determine due to colo r interference Bilirubin SEE COMMENT Negative 12/24/2017 1:03 AM CDT [facility] Comment: Unable to determine due to colo r interference pH SEE COMMENT 5.0 - 8.0 12/24/2017 1:[address] [facility] [place] [facility] Comment: Unable to determine due to colo r interference Specific [place] SEE COMMENT 1.001 - 1.035 12/24/2017 1:03 A M [facility] [place] Comment: Unable to determine due to colo r interference Urobilinogen SEE COMMENT 0.2 - 1.0 mg/dL 12/24/2017 1:03 A M CDT [facility] Comment: Unable to determine due to colo r interference Specimen Anatomical Collection Method Collection Time Receive d Time (Source) Location / / Volume Laterality Urine (Urine, 12/24/2017 12:49 12/24/2017 Clean Catch) AM CDT 12:57 AM CDT Christopher Bowling M.D. LAB URINE ORDERABLES Performing Organization Address City/[facility] Phon e Number [address] [address] [place] [facility] APTT (Activated Partial Thromboplastin Time) (12/23/2017 11:27 PM CDT) athologist Signature APTT, P 27.5 23.7 - 36.1 12/23/2017 [facility] sec 11:47 PM CDT [facility] Specimen Anatomical Collection Method Collection Time Receive d Time (Source) Location / / Volume Laterality Blood (Blood, 12/23/2017 11:27 12/23/2017 Venous) PM CDT 11:30 PM CDT Christopher Bowling M.D. LAB BLOOD ADD-ON Performing Organization Address City/[facility] [place] [facility]/ZIP Code Phon e Number [address] [address] [place] [facility] PT (Prothrombin Time) with INR (12/23/2017 11:27 PM CDT) P athologist Signature Prothrombin 9.8 8.8 - 11.9 12/23/2017 [facility] Time, P sec 11:48 PM CDT [facility] INR 1.0 0.9 - 1.2 12/23/2017 [facility] 11:48 PM CDT [facility] Comment: Standard intensity warfarin therapeutic range: 2.0 to 3.0 High intensity warfarin therapeutic rang e: 2.5 to 3.5 Specimen Anatomical Collection Method Collection Time Receive d Time (Source) Location / / Volume Laterality Blood (Blood, 12/23/2017 11:27 12/23/2017 Venous) PM CDT 11:30 PM CDT Christopher Bowling M.D. LAB BLOOD ADD-ON Performing Organization Address City/State/ZIP Code Phon e Number [facility] [address] [place] [address] [place] [facility] BMP (Basic Metabolic Panel) (12/23/2017 11:27 PM CDT) P athologist Signature Potassium, P 3.9 3.6 - 5.2 12/23/2017 [facility] mmol/L 11:[address] [facility] Sodium, P 137 135 - 145 12/23/2017 [facility] mmol/L 11:56 PM [facility] Chloride, P 98 98 - 107 12/23/2017 [facility] mmol/L 11:56 PM [facility] Bicarbonate, P 26 22 - 29 12/23/2017 [facility] mmol/L 11:56 PM [facility] Anion Gap, P 13 7 - 15 12/23/2017 [facility] 11:56 PM [facility] BUN (Blood Urea 14 8 - 24 12/23/2017 [facility] Nitrogen), P mg/dL 11:56 PM [facility] Creatinine 0.91 0.74 - 12/23/2017 [facility] 1.35 mg/dL 11:[address] [facility] eGFR-Black/Afri >90 >=60 12/23/2017 [facility] can Malaysian mL/min/BSA 11:56 PM [facility] [place] [facility] Comment: ----ADDITIONAL INFORMATION---- Estimated GFR calculated using the 2009 CKD_EPI creatinine equation. eGFR Non-Black/ >90 >=60 mL/min/BSA 12/23/2017 11:56 PM [facility] [place] [facility] [place] [facility] Comment: ----ADDITIONAL INFORMATION---- Estimated GFR calculated using the 2009 CKD_EPI creatinine equation. Calcium, Total, P 9.5 8.6 - 10.0 mg/dL 12/23/2017 1 1:56 PM CDT [facility] Glucose, P 105 70 - 140 mg/dL 12/23/2017 11:56 PM CDT [facility] Specimen Anatomical Collection Method Collection Time Receive d Time (Source) Location / / Volume Laterality Blood (Blood, 12/23/2017 11:27 12/23/2017 Venous) PM CDT 11:30 PM CDT Christopher Bowling M.D. LAB BLOOD ADD-ON Performing Organization Address City/State/ZIP Code Phon e Number [facility] [address] [place] [address] [place] [facility] (ABNORMAL) CBC with Differential, Blood (12/23/2017 11:27 PM CDT) [facility] Method Time Signature Hemoglobin 13.3 13.2 - 12/23/2017 [facility] 16.6 g/dL 11:36 PM CDT [facility] Hematocrit 40.4 38.3 - 12/23/2017 [facility] 48.6 % 11:36 PM CDT [facility] Erythrocytes 4.34 (L) 4.35 - 12/23/2017 [facility] 5.65 11:36 PM CDT HEALTH x10(12)/L [facility] MCV 93.1 78.2 - 12/23/2017 [facility] 97.9 fL 11:36 PM CDT [facility] RBC Distrib Width 13.3 11.8 - 12/23/2017 [facility] 14.5 % 11:36 PM CDT [facility] Platelet Count 330 (H) 135 - 317 12/23/2017 [facility] x10(9)/L 11:36 PM CDT [facility] Leukocytes 6.1 3.4 - 9.6 12/23/2017 [facility] x10(9)/L 11:36 PM CDT [facility] Neutrophils 2.66 1.56 - 12/23/2017 [facility] 6.45 11:36 PM CDT HEALTH x10(9)/L [facility] Lymphocytes 2.68 0.95 - 12/23/2017 [facility] 3.07 11:36 PM CDT HEALTH x10(9)/L [facility] [place] [facility] Monocytes 0.62 0.26 - 12/23/2017 [facility] 0.81 11:36 PM CDT HEALTH x10(9)/L [facility] [place] [facility] Eosinophils 0.07 0.03 - 12/23/2017 [facility] 0.48 11:36 PM CDT HEALTH x10(9)/L [facility] [place] [facility] Basophils 0.03 0.01 - 12/23/2017 [facility] 0.08 11:36 PM CDT HEALTH x10(9)/L [facility] [place] Specimen Anatomical Collection Method Collection Time Receive d Time (Source) Location / / Volume Laterality Blood (Blood, 12/23/2017 11:27 12/23/2017 Venous) PM CDT 11:30 PM CDT Christopher Bowling M.D. LAB BLOOD ADD-ON Performing Organization Address City/State/ZIP Code Phon e Number [facility] [address] [place] [address] [facility] documented in this encounter Visit Diagnoses Diagnosis Hematuria - Primary documented in this encounter Administered Medications Inactive Administered Medications - up to 3 most recent administrations Medication Order MAR Action Action Date Dose Rate Site HYDROcodone-acetaminophen 5-325 Given 12/24/2017 12:18 AM CDT 1 tablet mg per tablet 1 tablet (NORCO) 1 tablet, oral, Once, On Fri12/23/17 at 2352, For 1 dose documented in this encounter Active and Recently Administered Medications Times are shown in CDT. Scheduled Medication Order 12/22/2017 12/23/2017 12/24/2017 HYDROcodone-acetaminophen 5-325 mg per tablet 1 tablet (NORCO) ( COMPLETED) 0018 (Given - Provider: Deja Smith R.N.) 1 tablet, oral, Once, On Fri12/23/17 at 2352, For 1 dose documented in this encounter Care Teams Cranberry Grower Relationship Specialty Start Date End Date Bella Sears M.D. PCP - General 11/28/16 06/30/19 [address] [place] [id number] documented as of this encounter
--- OUTSIDE RECORDS SUMMARY | 2022-04-12 08:14 | XMS_ITS | Encounter Summary ---
:1995 Author Organization [facility] Address [address] [place] [address] Care Team Providers Name Role Phone Bella Sears M.D. Primary Care Provider [phone] Reason for Visit Reason Comments Dysuria Pt has wharton cath in place s sandro surgery on 11/07/17, denies fever or chills, taking [facility]acare and tylenol. Pt is eating and drinking, urine in wharton appears clear yellow. Pain h as been in balls and bladder up to belly button comes in spasms. Encounter Details Date Type Department Care Team Description 02/02/2018 Emergency [place] [facility] Doug Izaguirre I nfection Urinary Tract (Primary Dx); Department M.D. Dehydration [address] [place] [address] [phone] [phone] Social History Tobacco Use Types Packs/Day Years [...] 03/20/2022 relatives? How often do you attend judaism or protestant services? Never 03/20/2022 Do you belong to any clubs or organizations such as No 03/20/2022 judaism groups, unions, fraternal or athletic groups, or [...] Sign Reading Time Taken Comments Blood Pressure 130/89 02/02/2018 3:48 AM CDT Pulse 69 02/02/2018 3:48 AM CDT Temperature 36.6 ??C (97.9 ??F) 02/02/2018 2:25 AM CDT Respiratory Rate 16 02/02/2018 3:48 AM CDT Oxygen Saturation 97% 02/02/2018 3:48 AM CDT Inhaled Oxygen Concentration - - Weight 77.1 kg (170 lb) 02/02/2018 1:07 AM CDT Height 162.6 cm (5' 4) 02/02/2018 1:07 AM CDT Body Mass Index 29.18 02/02/2018 1:07 AM CDT documented in this encounter Discharge Instructions Discharge InstructionsMiDoug blank M.D. - 02/02/2018 3:50 AM CDT Please try to increase fluid intake to 80 oz per day. You can include one glass of cranberry juice in that amount. AttachmentsThe following attachments cannot be sent through Care Everywhere. Dehydration Adult Ofjw-ol-Ywhb (Citizen Of [place])Catheter-Associated Urinary Tract Infection FAQs - SORENSEN (Citizen Of [place])documented in this encounter Medications at Time of Discharge Medication Sig Dispensed Refills Start Date End Date acetaminophen (TYLENOL) Take 650 mg by 0 03/15/20 16 325 mg tablet mouth. albuterol (PROVENTIL Inhale 2 puffs. 0 12/24/2014 HFA,VENTOLIN HFA) 90 mcg/actuation inhaler [facility] [place] [place] Prescription Trazapam 15 mg i po 0 6 (Allergy Immunotherapy) daily for sleep PARoxetine (PAXIL) 20 mg Take 20 mg by mouth. 0 1 tablet valACYclovir (VALTREX) Take 1 tablet by 0 015 500 mg tablet mouth. diphenhydrAMINE Take 50 mg by mouth. 0 03/30/2013 (BENADRYL) 50 mg capsule montelukast (SINGULAIR) Take 10 mg by mouth. 0 10 mg tablet naproxen (NAPROSYN) 250 Take 250 mg by 0 10/25/19 13 mg tablet mouth. pirbuterol acetate Inhale 2 puffs as 0 05/21/2011 (MAXAIR AUTOHALER INHL) needed. predniSONE (DELTASONE) Take 40 mg by mouth. 0 20 mg tablet acyclovir (ZOVIRAX) 5 % Apply topically. 0 201612/01/2019 ointment Misc Prescription Misc Prescription 0 08/01/2015 03/20/2022 (Allergy Immunotherapy) See Instructions, testoterone--80 mg IM per week--(has been taking past 8 months) topiramate (TOPAMAX) 25 Take 1 tablet by 0 201503/20/2022 mg tablet mouth daily. traZODone (DESYREL) 100 Take 1 tablet by 0 201412/01/2019 mg tablet mouth. cephalexin (KEFLEX) 500 Take 1 capsule (500 40 capsule 0 02/12/2018 mg capsule mg total) by mouth every 6 (six) hours for 10 days. ondansetron ODT Take 1 tablet (4 mg 10 tablet 0 01/03/2018 04/20/2018 (ZOFRAN-ODT) 4 mg total) by mouth disintegrating tablet every 8 (eight) hours as needed for nausea or vomiting. temazepam (RESTORIL) Take 15 mg by mouth. 0 12/01/2019 22.5 mg capsule traZODone (DESYREL) 100 Take 1 tablet by 0 201403/20/2022 mg tablet mouth at bedtime. documented as of this encounter ED Notes Doug Izaguirre M.D. - 02/02/2018 4:07 AM CDT SUBJECTIVE CHIEF COMPLAINT/REASON FOR VISIT Dysuria (Pt has wharton cath in place since surgery on 11/07/17, denies fever or chills, taking [facility] and tylenol. Pt is eating and drinking, urine in wharton appears clear yellow. Pain has been in balls and bladder up to belly button comes in spasms. ) HISTORY OF PRESENT ILLNESS This is a 22-year-old transgender female who is completing the process of gender reassignment to his gender identity. In the latter part of October he underwent the gender reassignment genital surgery which has had some complications most notably with meatal stenosis. He has a suprapubic catheter in place. He has been taking some anti spasmodic agents and most recently has been changed of VESI[facility].Currently he has no fever chills but states that he has significant discomfort which he attributes to the spasms and describes this in a way that suggests that his ???balls and bladder are being pushedup to his belly button?? . 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 He has been treated fairly aggressively with antibiotics postoperatively but recently has not required any. The urine is seemingly fairly clear drainage but patient is also concerned because there does not seem to be a lotof urine. On careful questioning Jamin indicates that he averages by reflecting what he is drinking somewhere between 700-800 mL fluid intake per day. Past Medical History: No date: Acne Vulgaris No date: Autism Spectrum Disorder (HCC) Comment: Asperger traits No date: Depression/Karla/Bipolar NOS No date: Dysphoria Gender Adolescent Or Adult No date: Herpes Simplex Genital Recurrent 03/2015: Hormone Replacement Therapy No date: Hyperlipidemia No date: Migraine Headache Past Surgical History: 11/27/2016: MASTECTOMY COMPLETE / SIMPLE 11/07/2017: PHALLOPLASTY 03/12/2016: TOTAL ABDOMINAL HYSTERECTOMY W/ BILATERAL SALP* Review of patient's family history indicates: Pulmonary embolism Mother Diabetes Father Smoking status: Former Smoker Packs/day: 0.00 Years: 0.00 Smokeless tobacco: Never Used Alcohol use: No History provided by: Patient History limited by: There are no limitations to the history or exam. home appliance tech used: No REVIEW OF SYSTEMS Constitutional: Positive for activity change (the patient relates that he spends more time sleeping)and fatigue. Negative for appetite change, chills, diaphoresis, fever and unexpected weight change. HENT: Negative. Eyes: Negative. Respiratory: Negative. Cardiovascular: Negative. Gastrointestinal: Positive for abdominal pain ( suprapubic). Negative for abdominal distention, blood in stool, constipation, diarrhea, hematemesis, nausea, rectal pain and vomiting. Genitourinary: Positive for decreased urine volume. Negative for bladder incontinence, discharge ( patient describes meatal stenosis), flank pain, penile swelling and testicular pain. Musculoskeletal: Negative. Skin: Positive for wound ( purulent drainage from the suprapubic surgical incision for the vesicle cutaneous fistula and catheter insertion). Negative for color change, itching and rash. Neurological: Negative. Negative for headaches. Psychiatric/Behavioral: Positive for depression. The patient is nervous/anxious. OBJECTIVE Initial Vitals [02/02/18 0108] Temperature Pulse Rate Heart Rate Resp Rate Blood Pressure SpO2 36.6 ??C 90 -- 17 (!) 146/109 96 % Pain Score 10 - Worst possible pain PHYSICAL EXAMINATION Constitutional: He appears well-developed and well-nourished. He appears not lethargic. He appears distressed. HENT: Head: Normocephalic and atraumatic. Mouth/Throat: Oropharynx is clear and moist. Mucous membranes are dry. Eyes: Conjunctivae are normal. Neck: Normal range of motion. Neck supple. Cardiovascular: Normal rate, regular rhythm and normal heart sounds. Pulses are palpable. Capillary refill: takes less than 3 seconds, Pulmonary/Chest: Effort normal and breath sounds normal. There is normal air entry. Abdominal: Soft. He exhibits no distension. Bowel sounds are decreased. There is no tenderness. There is no rebound and no guarding. The patient does have a suprapubic catheter in place. It is draining clear urine. I do see some mildcrusting had at the insertion site of the catheter however there is no active purulent drainage. Theskin of the abdomen around the insertion site appears normal in color there does not appear to be any erythema suggestive of cellulitis. His abdominal surgical incisions are well healed. Genitourinary: Genitourinary Comments: The patient has a surgically created penis (phyloplasty) that does not appear to be swollen or inflamed. The surgical incision at the base of the penis and the ventral surface all appear to be well healed and without evidence of infection. The urethral meatus itself is obviously stenotic and there is no evidence of urine at the meatus. Musculoskeletal: Normal range of motion. Neurological: He is alert. Skin: Skin is warm, dry and intact. No rash noted. He is not diaphoretic. Psychiatric: He has a normal mood and affect. Nursing note and vitals reviewed. ASSESSMENT/PLAN Impression and Plan I do think that the patient has a bladder infection and we will initiate treatment. I am concerned about possibility of postoperative intra-abdominal abscess, incisional infection, stones, an intra-abdominal adhesions. The exam labs fortunately do not seem to support anything other than the expected urinary tract infection. Interestingly the patient's oral intake is very marginal to support this typeof surgery. I did gently try to explain that for any person who has urogenital issues or surgical recovery from some type of urologic procedure really should have very good fluid intake. Believe the patient comprehended the importance this fluid intake. I did suggest cranberry juice although I clearly stated that I did think that it would fight infections but just be beneficial the bladder hygiene aslong sick catheter is place. The patient would long to have the catheter out and I explained that perhaps fluid intake may well the antibiotic treatment and then of course had Dani in the time when theymay try to really open the urethral meatus. I did explain to the patient that that would require course moving the catheter from the suprapubic area to the penile meatus for a certain period of time.The patient's exam, clinical and lab findings, all were discussed with the patient. The patient's questions were carefully answered and thoroughly explained to the patient's satisfaction. The patient was c omfortable with discharge.. ED Course as of Feb 03 2238 Mon Feb 02, 2018 0321 I reviewed the patient's labs. The CBC with differential is normal. The urinalysis with micro reveals a small leuk esterase positive with a trace blood. Patient has pyuria with 11-20 WBCs per high-powered field. He he does have some uric acid crystals as well as bacteria and yeast. 0321 A urine culture is pending at time of this dictation. Final Diagnoses: as of Feb 03 2238 Infection Urinary Tract Dehydration Doug Izaguirre M.D. 02/03/182253 documented in this encounter Plan of Treatment Upcoming Encounters Date Type Specialty Care Team Description 05/23/2022 Telemedicine Endocrinology Arely Bond M.B., B.Ch. [address] [place] [address] [phone] (Wo rk) documented as of this encounter Procedures Procedure Name Priority Date/Time Associated Comments Diagnosis BASIC METABOLIC STAT 02/02/2018 2:25 AM Result s for this PANEL, S/P CDT procedure are i n the results section. CBC WITH STAT 02/02/2018 2:22 AM Results f or this DIFFERENTIAL, B CDT procedure ar e in the results section. URINALYSIS WITH STAT 02/02/2018 1:57 AM Result s for this MICROSCOPIC IF CDT procedure are in INDICATED, U the results section. MICROSCOPIC MANUAL STAT 02/02/2018 1:57 AM Res ults for this CDT procedure are i n the results section. BACTERIAL CULTURE, STAT 02/02/2018 1:57 AM Res ults for this AEROBIC + SUSC, URINE CDT proced ure are in the results section. BACTERIAL CULTURE, STAT 02/02/2018 1:57 AM Res ults for this AEROBIC + SUSC CDT procedure are in the results section. documented in this encounter Results BMP (Basic Metabolic Panel) (02/02/2018 2:25 AM CDT) P athologist Signature Potassium, P 4.0 3.6 - 5.2 02/02/2018 [facility] mmol/L 3:39 AM CDT [facility] Sodium, P 140 135 - 145 02/02/2018 [facility] mmol/L 3:39 AM CDT [facility] Chloride, P 101 98 - 107 02/02/2018 [facility] mmol/L 3:39 AM CDT [facility] Bicarbonate, P 25 22 - 29 02/02/2018 [facility] mmol/L 3:39 AM [facility] Anion Gap, P 14 7 - 15 02/02/2018 [facility] 3:39 AM [facility] BUN (Blood Urea 15 8 - 24 02/02/2018 [facility] Nitrogen), P mg/dL 3:39 AM [facility] Creatinine 0.78 0.74 - 02/02/2018 [facility] 1.35 mg/dL 3:39 AM [facility] eGFR-Black/Afri >90 >=60 02/02/2018 [facility] can [place] mL/min/BSA 3:39 AM [facility] [place] [facility] Comment: ----ADDITIONAL INFORMATION---- Estimated GFR calculated using the 2009 CKD_EPI creatinine equation. eGFR Non-Black/ >90 >=60 mL/min/BSA 02/02/2018 3:39 AM [facility] [place] [facility] [place] [facility] Comment: ----ADDITIONAL INFORMATION---- Estimated GFR calculated using the 2009 CKD_EPI creatinine equation. Calcium, Total, P 9.6 8.6 - 10.0 mg/dL 02/02/2018 3 :39 AM CDT [facility] Glucose, P 114 70 - 140 mg/dL 02/02/2018 3:39 AM CDT [facility] Specimen Anatomical Collection Method Collection Time Receive d Time (Source) Location / / Volume Laterality Blood (Blood, 02/02/2018 2:25 AM 02/03/20 18 2:25 Venous) CDT AM CDT Doug Izaguirre M.D. LAB BLOOD ADD-ON Performing Organization Address City/State/ZIP Code Phon e Number [facility] [address] [place] [address] [facility] CBC with Differential (02/02/2018 2:22 AM CDT) athologist Signature Hemoglobin 14.8 13.2 - 02/02/2018 [facility] 16.6 g/dL 2:31 AM T [facility] [place] [facility] Hematocrit 43.8 38.3 - 02/02/2018 [facility] 48.6 % 2:31 AM CDT [facility] [place] [facility] Erythrocytes 4.85 4.35 - 02/02/2018 [facility] 5.65 2:31 AM CDT [facility] x10(12)/L [facility] [place] [facility] MCV 90.3 78.2 - 02/02/2018 [facility] 97.9 fL 2:31 AM CDT [facility] RBC Distrib Width 12.8 11.8 - 02/02/2018 [facility] 14.5 % 2:31 AM CDT [facility] [place] [facility] Platelet Count 230 135 - 317 02/02/2018 [facility] x10(9)/L 2:31 AM T [facility] Leukocytes 7.2 3.4 - 9.6 02/02/2018 [facility] x10(9)/L 2:31 AM T [facility] Neutrophils 3.23 1.56 - 02/02/2018 [facility] 6.45 2:31 AM CDT [facility] x10(9)/L [facility] [place] Lymphocytes 3.03 0.95 - 02/02/2018 [facility] 3.07 2:31 AM CDT [facility] x10(9)/L [facility] [place] Monocytes 0.76 0.26 - 02/02/2018 [facility] 0.81 2:31 AM CDT [facility] x10(9)/L [facility] [place] [facility] Eosinophils 0.09 0.03 - 02/02/2018 [facility] 0.48 2:31 AM CDT [facility] x10(9)/L [facility] [place] [facility] Basophils 0.05 0.01 - 02/02/2018 [facility] 0.08 2:31 AM CDT [facility] x10(9)/L [facility] [place] [facility] Specimen Anatomical Collection Method Collection Time Receive d Time (Source) Location / / Volume Laterality Blood (Blood, 02/02/2018 2:22 AM 02/03/20 18 2:26 Venous) CDT AM CDT Doug Izaguirre M.D. LAB BLOOD ADD-ON Performing Organization Address City/State/ZIP Code Phon e Number [facility] [address] [place] [address] [place] (ABNORMAL) Microscopic Manual (02/02/2018 1:57 AM CDT) Analysis Performed At Patho logist Time Signature White Blood 11-20 (A) /hpf 02/02/2018 [facility] Cells 2:18 AM T [facility] Comment: ----REFERENCE VALUE---- Males: 0-3 Females: 0-10 Unknown: 0-10 Red Blood Cells Occ-2 0 - 2 /hpf 02/02/2018 2:18 AM [facility] Dysmorphic Red <=25 <=25 % 02/02/2018 2:18 AM [facility] Blood Cells [facility] Crystals Uric Acid (A) None Seen 02/02/2018 2:18 AM [facility] /lpf [facility] Squamous Cells None Seen /hpf 02/02/2018 2:18 AM [facility] Bacteria Present (A) None Seen 02/02/2018 2:18 AM [facility] Yeast Present (A) None Seen 02/02/2018 2:18 AM [facility] IC [facility] Specimen Anatomical Collection Method Collection Time Receive d Time (Source) Location / / Volume Laterality Urine 02/02/2018 1:57 AM 8 2:14 CDT AM CDT Doug Izaguirre M.D. LAB URINE ORDERABLES Performing Organization Address City/State/ZIP Code Phon e Number [address] [address] [place] [facility] Bacterial Culture, Aerobic + Susc (02/02/2018 1:57 AM CDT) Patholo gist Method Time Signature Bacterial Usual Josefa. 02/04/2018 [facility] Culture, 4:[address] [facility] Bacterial CANCELED 02/04/2018 [facility] Culture, 4:35 PM [facility] Comment: Result canceled by the ancillar y Specimen Anatomical Collection Method Collection Time Receive d Time (Source) Location / / Volume Laterality Drainage 02/02/2018 1:57 AM 8 2:24 (Abdomen) CDT PM CDT Comment: Specimen Source Site: Drainage Doug Izaguirre M.D. LAB MICROBIOLOGY - GENERAL O RDERABLES Performing Organization Address City/State/ZIP Code Phon e Number [facility] [address] [place] [address] LAB (ABNORMAL) Bacterial Culture, Aerobic + Susc, Urine (02/02/2018 1:57 AM CDT) Component Value Ref Test Analysis Performed At Patholo gist Range Method Time Signature Bacterial [facility] Culture, 10,000-100,000 cfu/mL 9:19 AM CDT HEALTH Aerobic, (A) SYSTEM- Urine [place] [facility] Bacterial YEAST 02/05/2018 [facility] Culture, 10,000-100,000 cfu/mL 9:19 AM CDT HEALTH Aerobic, No further identification SYST EM- Urine (A) [place] [facility] Specimen (Source) Anatomical Collection Method Collection Time Re ceived Time Location / / Volume Laterality Urine (Urine, 02/02/2018 1:57 02/02/2018 2:28 Indwelling AM CDT PM CDT Catheter) Comment: Specimen Source Site: Urine Organism Antibiotic Method Susceptibility [facility] Ceftazidime SUSCEPTIBILITY >=64 mcg/mL: Res istant meningoseptica , JARROD (MCG/ML) [facility] Ceftriaxone SUSCEPTIBILITY >=64 mcg/mL: Res istant meningoseptica , JARROD (MCG/ML) [facility] Cefepime SUSCEPTIBILITY >=64 mcg/mL: Res istant meningoseptica , JARROD (MCG/ML) [facility] Aztreonam SUSCEPTIBILITY >=64 mcg/mL: Res istant meningoseptica , JARROD (MCG/ML) [facility] Meropenem SUSCEPTIBILITY >=16 mcg/mL: Res istant meningoseptica , JARROD (MCG/ML) [facility] Gentamicin SUSCEPTIBILITY >=16 mcg/mL: Res istant meningoseptica , JARROD (MCG/ML) [facility] Tobramycin SUSCEPTIBILITY >=16 mcg/mL: Res istant meningoseptica , JARROD (MCG/ML) [facility] Levofloxacin SUSCEPTIBILITY 2 mcg/mL: Suscep tible meningoseptica , JARROD (MCG/ML) [facility] Trimethoprim + SUSCEPTIBILITY 40 mcg/mL: Susce ptible meningoseptica Sulfamethoxazole , JARROD (MCG/ML) Doug Izaguirre M.D. LAB MICROBIOLOGY - GENERAL O RDERABLES Performing Organization Address City/State/ZIP Code Phon e Number [facility] [address] [place] [address] LAB (ABNORMAL) Urinalysis with Microscopic if Indicated (02/02/2018 1:57 AM CDT) athologist Signature Source Catheter 02/02/2018 [facility] 2:14 AM CDT [facility] [place] [facility] Clarity Slightly Clear 02/02/2018 [facility] Cloudy (A) 2:14 AM T [facility] [place] [facility] Color Yellow 02/02/2018 [facility] 2:14 AM T [facility] [place] [facility] Comment: ----REFERENCE VALUE---- Colorless Yellow Debby Blood Trace (A) Negative 02/02/2018 2:14 AM CDT [facility] [place] [facility] Nitrite Negative Negative 02/02/2018 2:14 AM CDT [facility] [place] [facility] Leukocyte Esterase Small (A) Negative 02/02/2018 2:14 A M T [facility] [place] [facility] Protein Negative mg/dL 02/02/2018 2:14 AM CDT [facility] [place] [facility] Comment: ----REFERENCE VALUE---- Negative Trace Glucose Negative Negative mg/dL 02/02/2018 2:[address] [facility] [place] [facility] Ketones, QI(U) Negative Negative mg/dL 02/02/2018 2:14 AM [facility] [place] [facility] Bilirubin Negative Negative 02/02/2018 2:14 AM [facility] [place] [facility] pH 6.5 5.0 - 8.0 02/02/2018 2:14 AM [facility] Specific [place] 1.025 1.001 - 1.035 02/02/2018 2:14 AM [facility] Urobilinogen 0.2 0.2 - 1.0 mg/dL 02/02/2018 2:14 AM [facility] Specimen Anatomical Collection Method Collection Time Receive d Time (Source) Location / / Volume Laterality Urine (Urine, 02/02/2018 1:57 AM 02/03/20 2:01 Clean Catch) CDT AM CDT Doug Izaguirre M.D. LAB URINE ORDERABLES Performing Organization Address City/State/ZIP Code Phon e Number [facility] [address] [place] [address] [place] [facility] documented in this encounter Visit Diagnoses Diagnosis Infection Urinary Tract - Primary Dehydration documented in this encounter Administered Medications Inactive Administered Medications - up to 3 most recent administrations Medication Order MAR Action Action Date Dose Rate Site cefTRIAXone injection 1 g (ROCEPHIN) Given 02/02/2018 3:48 AM CDT 1 g 1 g, intravenous, Once, On Fri02/02/18 at 0343, For 1 dose, Adminster IV push over 3 minutes. Add 10 mL NS to 1 gram vial for a final concentration of 100 mg/mL., Drug Monitoring Program: Pharmacist to adjust medication order based on comorbities and indication., Indications: Lower UTI, catheter NaCl 0.9 % bolus 1,000 mL New Bag 02/02/2018 2:23 AM CDT 1,000 mL 1000 mL/hr 1,000 mL, intravenous, at 1,000 mL/hr, Administer over 1 Hours, Once, On Fri02/02/18 at 0213, For 1 dose documented in this encounter Active and Recently Administered Medications Times are shown in CDT. Scheduled Medication Order 01/31/2018 02/01/2018 02/02/2018 cefTRIAXone injection 1 g (ROCEPHIN) (COMPLETED) 034 (Given - Provider: Marilee Jones R.N.) 1 g, intravenous, Once, On Fri02/02/18 a t 0343, For 1 dose, Adminster IV push over 3 minutes. Add 10 mL NS to 1 gram vial for a final concentration of 100 mg/mL., Drug Monitoring Program: Pharmacist to adjust medication order based on comorbi ties and indication., Indications: Lower UTI, catheter NaCl 0.9 % bolus 1,000 mL (COMPLETED) 0223 (New Bag - Provider: Marilee Jones R.N.)0323 (Stopped - Provider: Marilee Jones R.N.) 1,000 mL, intravenous, at 1,000 mL/hr, A dminister over 1 Hours, Once, On 02/02/18 at 0213, For 1 dose documented in this encounter Care Teams Shake Splitter Relationship Specialty Start Date End Date Bella Sears M.D. PCP - General 11/28/16 06/30/[address] [place] [address] [phone] documented as of this encounter
--- OUTSIDE RECORDS SUMMARY | 2022-04-12 08:14 | XMS_ITS | Encounter Summary ---
:1995 Author Organization [facility] Address [address] [place] [address] Care Team Providers Name Role Phone Unavailable Primary Care Provider Unavailable Encounter Details Date Type Department Care Team Description 09/09/2016 Hospital Encounter HX [facility] Efraín Sears M.D. [address] [place], [place] [phone] (Wo rk) Social History Tobacco Use Types Packs/Day Years Used Date Smoking Tobacco: Every Day Alcohol Habits Answer Date Recorded How often [...] How often do you attend judaism or religion services? Never 03/20/2022 Do you belong to [...] place to sleep or slept in a chcf (including now)? Sex Assigned at Date Recorded Female 03/20/2022 7:54 AM CDT documented as of this encounter Last Filed Vital Signs Vital Sign Reading Time Taken Comments Blood Pressure - - Pulse - - Temperature - - Respiratory Rate - - Oxygen Saturation - - Inhaled Oxygen Concentration - - Weight - - Height 162 cm (5' 3.78) 09/09/2016 3:36 PM CDT Body Mass Index - - documented in this encounter Medications at Time [...] 5 % Apply topically. 0 201612/01/2019 ointment Mis Prescription Mis Prescription See 0 016 03/20/2022 (Allergy Immunotherapy) Instructions, testoterone--80 mg IM per week--(has been taking past 8 months) topiramate (TOPAMAX) 25 Take 1 tablet by 0 201503/20/2022 mg tablet mouth daily. traZODone (DESYREL) 100 Take 1 tablet by 0 201412/01/2019 mg tablet mouth. traZODone (DESYREL) 100 Take 1 tablet by 0 201403/20/2022 mg tablet mouth at bedtime. documented as of this encounter Miscellaneous Notes Miscellaneous - Conversion, Historical Provider Ser - 09/10/2016 8:31 AM CDT Coding Summary-Paper Based CODING DATE: 09/10/2016 FINAL [facility] STATUS: * Discharged to Home or Self Care PAYOR: [employer] ADMIT DX: REASON FOR VISIT DX: FINAL DX: PRINCIPAL: R05 Cough SECONDARY: PROCEDURES DOCTOR NAME DATE NOTE: The code number assigned matches the documented diagnosis and / or procedure in the patient's chart. However, the narrative phrase printed from the coding software may appear abbreviated, or result in slightly different terminology. Coded By: BELLA BROWN Date Saved: 09/10/2016 08:31 am Source: [employer] Document Id: [id number] Miscellaneous - Conversion, Historical Provider Ser - 09/10/2016 8:31 AM CDT Coding Summary-Paper Based CODING DATE: 09/10/2016 FINAL [facility] STATUS: * Discharged to Home or Self Care PAYOR: [employer] ADMIT DX: REASON FOR VISIT DX: FINAL DX: PRINCIPAL: R05 Cough SECONDARY: PROCEDURES DOCTOR NAME DATE NOTE: The code number assigned matches the documented diagnosis and / or procedure in the patient's chart. However, the narrative phrase printed from the coding software may appear abbreviated, or result in slightly different terminology. Coded By: BELLA BROWN Date Saved: 09/10/2016 08:31 am Source: [employer] Document Id: [id number] LANCE DIRECTOR documented in this encounter Plan of Treatment Upcoming Encounters Date Type Specialty Care Team Description 05/23/2022 Telemedicine Endocrinology Arely Bond M.B., B.Ch. [address] [place], [place] [phone] (Wo rk) documented as of this encounter Procedures Procedure Name Priority Date/Time Associated Comments Diagnosis HXQUANTIFERON TB-GOLD Routine 09/09/2016 3:43 PM Results for this CDT procedure are i n the results section. QUANTIFERON-TB GOLD Routine 09/09/2016 3:43 PM Re sults for this PLUS, B CDT procedure are i n the results section. documented in this encounter Results QuantiFERON-TB Gold In-Tube for Detection of Latent Tuberculosis (09/09/2016 3:43 PM CDT) athologist Signature QuantiFERON-TB Negative Negative POWERCHART Gold Result Comment: No interferon-gamma response to M. tuber culosis antigens was detected. Infection with M. tubercul osis is unlikely. A negative result alone does not exclude infection with M. tuberculosis. For detailed information regarding test interpretation see: [email or web address]/test-cat alog/ Clinical+and+Interpretive/03366 HX TB Ag-Nil Result -Deal 0.05 INTUML PAUL RCHART HX Mitogen Tsn-Urtiin-Awcn >10.00 INTUML POW ERCHART HX Nil Result-Deal 0.11 INTUML POWERCHART Comment: Test Performed by: [facility] [employer] [address] [place] [id number] Specimen (Source) Anatomical Collection Method Collection Time Re ceived Time Location / / Volume Laterality Blood 09/09/2016 3:43 PM CDT Bella Sears M.D. LAB MICROBIOLOGY - BLOOD ORD ERABLES Performing Organization Address City/State/ZIP Code Phon e Number POWERCHART HXQUANTIFERON TB-GOLD (09/09/2016 3:43 PM CDT) athologist Signature QuantiFERON-TB Negative Negative POWERCHART Gold Result Comment: No interferon-gamma response to M. tuber culosis antigens was detected. Infection with M. tubercul osis is unlikely. A negative result alone does not exclude infection with M. tuberculosis. For detailed information regarding test interpretation see: www.[email or web address]/test-cat alog/ Clinical+and+Interpretive/18728 HX TB Ag-Nil Result -Deal 0.05 INTUML PAUL RCHART HX Mitogen Fsd-Pzuydn-Kdje >10.00 INTUML POW ERCHART HX Nil Result-Deal 0.11 INTUML POWERCHART Comment: Test Performed by: [facility] [employer] [facility] [address] [id number] Specimen (Source) Anatomical Collection Method Collection Time Re ceived Time Location / / Volume Laterality Blood 09/09/2016 3:43 PM CDT Bella Sears M.D. LAB HISTORICAL ORDERS Performing Organization Address City/State/ZIP Code Phon e Number POWERCHART documented in this encounter Visit Diagnoses Not on filedocumented in this encounter
--- OUTSIDE RECORDS SUMMARY | 2022-04-12 08:14 | XMS_ITS | Encounter Summary ---
:1995 Author Organization [facility] Address [address] [place] [address] Care Team Providers Name Role Phone Bella Saers M.D. Primary Care Provider [phone] Reason for Visit Reason Comments Pelvic Pain Pt presents for eval of pelv ic/perineal pain. Eval in ED last night and diagnosed with UTI. States p ain and burning has increased since then. No known fever. Encounter Details Date Type Department Care Team Description 02/02/2018 Emergency [facility] Jeimy Brown, Spasm Bladder (Primary Dx); Department M.D. Pain Postoperative [address] [place] [phone] Social History Tobacco Use Types Packs/Day Years [...] How often do you attend buddhism or anabaptism services? Never 03/20/2022 Do you belong to [...] place to sleep or slept in a skilled nursing (including now)? Sex Assigned at Date Recorded Female 03/20/2022 7:54 AM CDT documented as of this encounter Last Filed Vital Signs Vital Sign Reading Time Taken Comments Blood Pressure 141/101 02/02/2018 6:24 PM CDT Pulse 109 02/02/2018 6:24 PM CDT Temperature 36.7 ??C (98.1 ??F) 02/02/2018 6:24 PM CDT Respiratory Rate 18 02/02/2018 6:24 PM CDT Oxygen Saturation 96% 02/02/2018 6:24 PM CDT Inhaled Oxygen Concentration - - Weight 79.8 kg (176 lb) 02/02/2018 6:25 PM CDT Height 162.6 cm (5' 4) 02/02/2018 6:25 PM CDT Body Mass Index 30.21 02/02/2018 6:25 PM CDT documented in this encounter Discharge Instructions Discharge InstructionsJeimy Brown M.D. - 02/02/2018 7:39 PM CDT You may take Tylenol for pain. For severe pain, you may take tramadol. These 2 medications may be used simultaneously. Avoid use of nonsteroidal anti- inflammatory medications such as Advil or Aleve preoperatively. Talk to your surgeons office within the next 2 days if symptoms are not improving. Return to the emergency department if worse. AttachmentsThe following attachments cannot be sent through Care Everywhere. Opioid Pain Medicine Information (Guatemalan)documented in this encounter Medications at Time of [...] per week--(has been taking past 8 months) ondansetron ODT Take 1 tablet (4 mg [...] documented as of this encounter ED Notes Jeimy Brown M.D. - 02/02/2018 7:24 PM CDT SUBJECTIVE CHIEF COMPLAINT/REASON FOR VISIT Pelvic Pain (Pt presents for eval of pelvic/perineal pain. Eval in ED last night and diagnosed with UTI. States pain and burning has increased since then. No known fever. ) HISTORY OF PRESENT ILLNESS This is a 22-year-old male who is 3 months status post female to male gender confirmation surgery, in his case phalloplasty. He has had a complicated post surgical course and currently has a suprapubiccatheter which he thinks has been in about 4 weeks. He is scheduled to have repeat surgical exploration in 4 days. He presents for evaluation of pain which he describes as shooting sharp and severe. Heis taking Tylenol without much relief. At 1st he felt the pain about once an hour but is become morefrequent. He was seen in the emergency department yesterday and diagnosed with the urinary tract infection. He was given Rocephin, IV fluids and is on Keflex. He does not feel much better today. He went home yesterday without pain medications. He is hoping to get something stronger than Tylenol to deal with symptoms. He is not running a fever. REVIEW OF SYSTEMS Constitutional: Negative for fever. Genitourinary: He has some degree of sharp intermittent pain but also has pain in the area of his aj-scrotum. He has had a mild amount of wound drainage. Catheter has been draining yellow urine. He had an episode of hematuria for which presented about 6 weeks ago. All other systems reviewed and are negative. OBJECTIVE Initial Vitals [02/02/18 1824] Temperature Pulse Rate Heart Rate Resp Rate Blood Pressure SpO2 36.7 ??C 109 -- 18 (!) 141/101 96 % Pain Score 10 - Worst possible pain PHYSICAL EXAMINATION HENT: Head: Normocephalic and atraumatic. Mouth/Throat: Mucous membranes are moist. Neck: Normal range of motion. Neck supple. Cardiovascular: Normal rate. Pulses are strong and palpable. Pulmonary/Chest: Effort normal. Abdominal: Soft. Suprapubic catheter draining yellow urine. He is somewhat tender in the suprapubic area. The wound site looks unremarkable. Upper portions of the abdomen are nontender. Genitourinary: Genitourinary Comments: Phalloplasty incisions appear to have healed well for the most part with theexception of a small granulating area measuring approximately 1.5 cm inferior to the phallus. He is slightly tender in the area of this wound, but palpation does not recreate his pain exactly. His leg bag is strapped on very tight and appears to be somewhat obstructing out flow of urine. Neurological: He is alert and oriented to person, place, and time. Psychiatric: He has a normal mood and affect. His behavior is normal. ASSESSMENT/PLAN Impression and Plan We gave tramadol for pain. I reviewed the lab tests from yesterday, but there is not yet a prepared physician note. Fortunately, 1 of the nurses who arrived during the patient's visit was present also during yesterday's presentation. At 4 weeks, the suprapubic tract may not be completely mature. It is draining urine and I would be reluctant to swap out that catheter. As mentioned, the leg strap appeared to be obstructing urine outflow. Once that was removed, he drained a significant amount of clear yellow urine. That eased his bladder spasms, but he still has some pain in the area of the aj scrotum. Bedside ultrasound showed a 6 cm bladder prior to adjusting the straps. The patient is headed toward specialist surgical exploration in 4 days. I am going to add tramadol to his pain regimen. He should continue his Keflex. I think he is stable for discharge.. Final Diagnoses: as of Feb 02 1939 Spasm Bladder Pain Postoperative Jeimy Brown M.D. 02/02/181938 documented in this encounter Plan of Treatment Upcoming Encounters Date Type Specialty Care Team Description 05/23/2022 Telemedicine Endocrinology Arely Bond M.B., B.Ch. [address] [place] [phone] (Wo rk) documented as of this encounter Visit Diagnoses Diagnosis Spasm Bladder - Primary Pain Postoperative documented in this encounter Administered Medications Inactive Administered Medications - up to 3 most recent administrations Medication Order MAR Action Action Date Dose Rate Site traMADol tablet 50 mg (ULTRAM) Given 02/02/2018 7:29 PM CDT 50 mg 50 mg, oral, Once, On Fri02/02/18 at 1917, For 1 dose, Drug Monitoring Program: Pharmacist to adjust medication order based on comorbities and indication. documented in this encounter Active and Recently Administered Medications Times are shown in CDT. Scheduled Medication Order 01/31/2018 02/01/2018 02/02/2018 traMADol tablet 50 mg (ULTRAM) (COMPLETED) 192 (Given - Provider: Marilee Jones R.N.) 50 mg, oral, Once, On Fri02/02/18 at 191 7, For 1 dose, Drug Monitoring Program: Pharmacist to adjust medication order based on comorbities and indication. documented in this encounter Care Teams Mental Health Worker Relationship Specialty Start Date End Date Bella Sears M.D. PCP - General 11/28/16 06/30/19 [address] [place] [address] documented as of this encounter
--- OUTSIDE RECORDS SUMMARY | 2022-04-12 08:14 | XMS_ITS | Encounter Summary ---
:1995 Author Organization [facility] Address [address] [place] [address] Care Team Providers Name Role Phone Unavailable Primary Care Provider Unavailable Encounter Details Date Type Department Care Team Description 07/28/2016 Hospital Encounter HX [facility], M[address] [place], [place] [phone] (Wo rk) Social History Tobacco Use Types [...] 03/20/2022 relatives? How often do you attend adventist or roman catholic services? Never 03/20/2022 Do you belong to any clubs or organizations such as No 03/20/2022 adventist groups, unions, fraternal or athletic groups, or [...] place to sleep or slept in a fci (including now)? Sex Assigned at Date Recorded Female 03/20/2022 7:54 AM CDT documented as of this encounter Last Filed Vital Signs Vital Sign Reading Time Taken Comments Blood Pressure 131/85 07/28/2016 9:06 AM NCA CERTIFIED CONCIERGE Pulse 59 07/28/2016 9:06 AM NCA CERTIFIED CONCIERGE Temperature - - Respiratory Rate 12 07/28/2016 9:06 AM NCA CERTIFIED CONCIERGE Oxygen Saturation - - Inhaled Oxygen Concentration - - Weight - - Height 162 cm (5' 3.78) 07/28/2016 9:06 AM NCA CERTIFIED CONCIERGE Body Mass Index - - documented in this encounter Discharge Summaries Nava Clemons R.N. - 07/28/2016 9:26 AM CST ED Discharge Instructions [address] [address] Name: NAHID CHAKRABORTY Date of : 1995 12:00 AM Visit Date: 07/28/2016 7:07 AM [facility] Number: [id number] Address: [address] [place] [phone] Primary Care Provider: KALEE MORENO MD IMPORTANT: [facility] in [place] would like to thank you for allowing us to assistyou with your healthcare needs. The following includes patient education materials and information regarding your injury/illness. Diagnosis: 1:Gastroenteritis Viral Or Presumed Viral Follow-Up Instructions: With: Address: When: KALEE MORENO [address] [place] [phone] Business (1) Within 2 - 4 days, only if needed Your Upcoming Appointments: Date Time Location Provider No Appointments found Patient Education Materials: Continue to increase fluid intake. Use Imodium as needed for loose stools as directed. Eat a bland diet. Follow-up with your primary care provider if not improved in 2-3 days. Please return to the emergency room if your symptoms are worsening, you ahaving fevers, you are not able to tolerate fluids, or if you developed blood in the stool. Viral Gastroenteritis (6Yr-Adult) Gastroenteritis is another name for the stomach flu. It is most often caused by a virus that affectsthe stomach and intestinal tract. Symptoms include stomach cramping and fever, vomiting and/or diarrhea, and can last from 2 to 7 days. The danger from repeated vomiting or diarrhea is dehydration. This is the loss of too much water andminerals from the body. When this occurs, body fluids must be replaced. Antibiotics are not effective for this illness, but simple home treatment will be helpful. Home Care ?? If symptoms are severe, rest at home for the next 24 hours. ?? Avoid tobacco, caffeine, and alcohol use, which can worsen symptoms. ?? Acetaminophen (Tylenol) or ibuprofen (Motrin, Advil) may be used for fever or pain unless anothermedication was prescribed. NOTE: If you have chronic liver or kidney disease or ever had a stomach ulcer or GI bleeding, talk with your doctor before using these medicines. Aspirin should never be usedin anyone under 18 years of age who is ill with a fever. It may cause severe liver damage. ?? If medicines for diarrhea or vomiting were prescribed, be sure they are taken only as directed. ?? If vomiting, drink small amounts of clear fluids (such as water, sports drinks, clear sodas) at frequent intervals to prevent dehydration. Start with 1 to 2 tablespoons every 10 minutes. Once vomiting stops, follow these guidelines: During The First 12 To 24 Hours follow the diet below: ?? Beverages: Sport drinks like Gatorade, soft drinks without caffeine; alberto margo, mineral water (plain or flavored), decaffeinated tea and coffee. ?? Soups: Clear broth, consomm?? and bouillon ?? Desserts: Plain gelatin (Jell-O), Popsicles and fruit juice bars. During The Next 24 Hours you may add the following to the above: ?? Hot cereal, plain toast, bread, rolls, crackers ?? Plain noodles, rice, mashed potatoes, chicken noodle or rice soup ?? Unsweetened canned fruit (avoid pineapple), bananas ?? 1Limit fat intake to less than 15 grams per day by avoiding margarine, butter, oils, mayonnaise, sauces, gravies, fried foods, peanut butter, meat, poultry, and fish. ?? Limit fiber; avoid raw or cooked vegetables, fresh fruits (except bananas), and bran cereals. ?? Limit caffeine and chocolate. Do not use spices or seasonings except salt. During The Next 24 Hours The patient can gradually resume a normal diet as symptoms lessen. Preventing Spread ?? Hand washing with soap and water is the best way to prevent the spread of viruses. Caregivers should wash their hands before and after touching the sick person. ?? The sick person, as well as everyone in the family, should wash their hands after using the toilet and before meals. ?? Clean the toilet after each use. ?? People with diarrhea should not prepare food for others. If you are preparing your own foods, wash your hands before and after. Follow Up with your doctor as advised. Call your doctor if you are not improving over the next 2 to 3 days. Ifa stool (diarrhea) sample was taken, you may call in 2 days (or as directed) for the results. Get Prompt Medical Attention if any of the following occur: ?? Increasing abdominal pain ?? Continued vomiting (unable to keep liquids down) ?? Frequent diarrhea (more than 5 times a day) ?? Blood in vomit or stool (black or red color) ?? Dark urine, reduced urine output, or extreme thirst ?? Weakness, dizziness, fainting ?? Drowsiness, confusion, stiff neck, or seizure ?? Fever of 100.4??F (38??C) oral or higher, not better with fever medication ?? New rash ?? [id number] [place] [address]. All rights reserved. This information is not [...] if you dont have one. Go to [email or web address] and click on Create Your Account. Then, follow the directions to complete the online form. Youll be asked for your [facility] number which you can find at the top of this document. ED Tests and Procedures: Order Status CBC (includes Auto Differential) Completed Lipase Level Completed Comprehensive Metabolic Panel Completed GI Pathogen Panel by PCR Ordered Automated Diff-5 Part Completed Discharge Prescriptions & Home Medications: Medication/Strength Dose Route Frequency Indications/Special Instructions/Comments/Notes Misc Prescription (Migraine medication) Misc Prescription (Testosterone) 65 mg calcium-vitamin D (Calcium 500+D) 1 tab(s) two times a day Attention: If you have any medications at [...] arrange a ride home with a responsible republican. DAVION Domingo MATTHEW JAMES , or responsible republican have received this information and my questions havebeen answered. I have discussed any challenges I [...] arrange a ride home with a responsible republican. I, NAHID CHAKRABORTY , or responsible republican have received this information and my questions havebeen answered. I have discussed any challenges I see with this plan with the nurse or physician. Patient Signature or Responsible Republican/Relationship Date Time Provider Signature Date Time This document has images extracted. Please consider using [employer] for all your patient education needs. Source: [facility] POWERCHART Document Id: [id number] CERTIFIED CONCIERGE Nava Clemons R.N. - 07/28/2016 9:26 AM CST ED Discharge Instructions [address] [address] Name: NAHID CHAKRABORTY Date of : 1995 12:00 AM Visit Date: 07/28/2016 7:07 AM [facility] Number: [id number] Address: [address] [facility] [phone] Primary Care Provider: KALEE MORENO MD IMPORTANT: [facility] in [place] would like to thank you for allowing us to assistyou with your healthcare needs. The following includes patient education materials and information regarding your injury/illness. Diagnosis: 1:Gastroenteritis Viral Or Presumed Viral Follow-Up Instructions: With: Address: When: KALEE MORENO [address] [place] [phone] Business (1) Within 2 - 4 days, only if needed Your Upcoming Appointments: Date Time Location Provider No Appointments found Patient Education Materials: Continue to increase fluid intake. Use Imodium as needed for loose stools as directed. Eat a bland diet. Follow-up with your primary care provider if not improved in 2-3 days. Please return to the emergency room if your symptoms are worsening, you ahaving fevers, you are not able to tolerate fluids, or if you developed blood in the stool. Viral Gastroenteritis (6Yr-Adult) Gastroenteritis is another name for the stomach flu. It is most often caused by a virus that affectsthe stomach and intestinal tract. Symptoms include stomach cramping and fever, vomiting and/or diarrhea, and can last from 2 to 7 days. The danger from repeated vomiting or diarrhea is dehydration. This is the loss of too much water andminerals from the body. When this occurs, body fluids must be replaced. Antibiotics are not effective for this illness, but simple home treatment will be helpful. Home Care ?? If symptoms are severe, rest at home for the next 24 hours. ?? Avoid tobacco, caffeine, and alcohol use, which can worsen symptoms. ?? Acetaminophen (Tylenol) or ibuprofen (Motrin, Advil) may be used for fever or pain unless anothermedication was prescribed. NOTE: If you have chronic liver or kidney disease or ever had a stomach ulcer or GI bleeding, talk with your doctor before using these medicines. Aspirin should never be usedin anyone under 18 years of age who is ill with a fever. It may cause severe liver damage. ?? If medicines for diarrhea or vomiting were prescribed, be sure they are taken only as directed. ?? If vomiting, drink small amounts of clear fluids (such as water, sports drinks, clear sodas) at frequent intervals to prevent dehydration. Start with 1 to 2 tablespoons every 10 minutes. Once vomiting stops, follow these guidelines: During The First 12 To 24 Hours follow the diet below: ?? Beverages: Sport drinks like Gatorade, soft drinks without caffeine; alberto margo, mineral water (plain or flavored), decaffeinated tea and coffee. ?? Soups: Clear broth, consomm?? and bouillon ?? Desserts: Plain gelatin (Jell-O), Popsicles and fruit juice bars. During The Next 24 Hours you may add the following to the above: ?? Hot cereal, plain toast, bread, rolls, crackers ?? Plain noodles, rice, mashed potatoes, chicken noodle or rice soup ?? Unsweetened canned fruit (avoid pineapple), bananas ?? 1Limit fat intake to less than 15 grams per day by avoiding margarine, butter, oils, mayonnaise, sauces, gravies, fried foods, peanut butter, meat, poultry, and fish. ?? Limit fiber; avoid raw or cooked vegetables, fresh fruits (except bananas), and bran cereals. ?? Limit caffeine and chocolate. Do not use spices or seasonings except salt. During The Next 24 Hours The patient can gradually resume a normal diet as symptoms lessen. Preventing Spread ?? Hand washing with soap and water is the best way to prevent the spread of viruses. Caregivers should wash their hands before and after touching the sick person. ?? The sick person, as well as everyone in the family, should wash their hands after using the toilet and before meals. ?? Clean the toilet after each use. ?? People with diarrhea should not prepare food for others. If you are preparing your own foods, wash your hands before and after. Follow Up with your doctor as advised. Call your doctor if you are not improving over the next 2 to 3 days. Ifa stool (diarrhea) sample was taken, you may call in 2 days (or as directed) for the results. Get Prompt Medical Attention if any of the following occur: ?? Increasing abdominal pain ?? Continued vomiting (unable to keep liquids down) ?? Frequent diarrhea (more than 5 times a day) ?? Blood in vomit or stool (black or red color) ?? Dark urine, reduced urine output, or extreme thirst ?? Weakness, dizziness, fainting ?? Drowsiness, confusion, stiff neck, or seizure ?? Fever of 100.4??F (38??C) oral or higher, not better with fever medication ?? New rash ?? [id number] [facility], [address] [place] [address], [place] [address]. All rights reserved. This information is not [...] if you dont have one. Go to [email or web address] and click on Create Your Account. Then, follow the directions to complete the online form. Youll be asked for your [facility] number which you can find at the top of this document. ED Tests and Procedures: Order Status CBC (includes Auto Differential) Completed Lipase Level Completed Comprehensive Metabolic Panel Completed GI Pathogen Panel by PCR Ordered Automated Diff-5 Part Completed Discharge Prescriptions & Home Medications: Medication/Strength Dose Route Frequency Indications/Special Instructions/Comments/Notes Misc Prescription (Migraine medication) Misc Prescription (Testosterone) 65 mg calcium-vitamin D (Calcium 500+D) 1 tab(s) two times a day Attention: If you have any medications at [...] arrange a ride home with a responsible republican. DAVION Domingo MATTHEW JAMES , or responsible republican have received this information and my questions havebeen answered. I have discussed any challenges I [...] arrange a ride home with a responsible republican. I, NAHID CHAKRABORTY , or responsible republican have received this information and my questions havebeen answered. I have discussed any challenges I see with this plan with the nurse or physician. Patient Signature or Responsible Republican/Relationship Date Time Provider Signature Date Time This document has images extracted. Please consider using [employer] for all your patient education needs. Source: [facility] POWERCHART Document Id: [id number] CERTIFIED CONCIERGE Nava Clemons R.N. - 07/28/2016 9:26 AM CST ED Depart Summary [facility] Emergency Department Clinical Discharge Summary PERSON INFORMATION Name NAHID CHAKRABORTY Age 21 Years 1995 12:00 AM Sex Male Language Canadian PCP KALEE MORENO MD Marital Status Single N [id number] Visit Id Visit Reason Diarrhea; diarrhea Specialty Enc Type Emergency Med Service Emergency Medicine Referred by Track Group MAQN ED Discharge 07/28/2016 9:25 AM Tracking Id [id number] Checkout 07/28/2016 9:25 AM Checkin 07/28/2016 7:07 AM Acuity 4 -Less Urgent Dispo Type * Discharged to Home or Self Care Arrival 07/28/2016 7:07 AM Reg Status LOS 000 02:18 Address: [address] [place] [phone] Comment: PROVIDER INFORMATION Provider Role Provider Contact Time ABBI CARABALLO DO ED Provider 07/28/16 07:12 NAVA CLEMONS AND [employer]AXI INSTRUCTOR BUS TROLLEY Nurse 07/28/16 07:26 KIRBY NELSON MD ED Provider 07/28/16 07:57 DIAGNOSIS 1:Gastroenteritis Viral Or Presumed Viral Comment: PATIENT EDUCATION INFORMATION Instructions: GASTROENTERITIS, Viral [6y-Adult] Follow up: With: Address: When: KALEE MORENO [address] [place] [address] [phone] [facility] (1) Within 2 - 4 days, only if needed Source: [facility] CheckCHART Document Id: [id number] CERTIFIED CONCIERGE Nava Clemons RDarioN. - 07/28/2016 9:26 AM CST ED Depart Summary [facility] Emergency Department Clinical Discharge Summary PERSON INFORMATION Name NAHID CHAKRABORTY Age 21 Years 1995 12:00 AM Sex Male Language Canadian PCP KALEE MORENO MD Marital Status Single Visit Id Visit Reason Diarrhea; diarrhea Specialty Enc Type Emergency Med Service Emergency Medicine Referred by Track Group MAQN ED Discharge 07/28/2016 9:25 AM Tracking Id [id number] Checkout 07/28/2016 9:25 AM Checkin 07/28/2016 7:07 AM Acuity 4 -Less Urgent Dispo Type * Discharged to Home or Self Care Arrival 07/28/2016 7:07 AM Reg Status LOS 000 02:18 Address: [address] [place] [phone] Comment: PROVIDER INFORMATION Provider Role Provider Contact Time ABBI CARABALLO DO ED Provider 07/28/16 07:12 NAVA CLEMONS AND [employer]AX[employer] INSTRUCTOR BUS TROLLEY Nurse 07/28/16 07:26 KIRBY NELSON MD ED Provider 07/28/16 07:57 DIAGNOSIS 1:Gastroenteritis Viral Or Presumed Viral Comment: PATIENT EDUCATION INFORMATION Instructions: GASTROENTERITIS, Viral [6y-Adult] Follow up: With: Address: When: KALEE MORENO [address] [place] [phone] Business (1) Within 2 - 4 days, only if needed Source: [facility] Answer.To Document Id: [id number] CERTIFIED CONCIERGE Nava Clemons R.N. - 07/28/2016 9:25 AM CST ED Disposition Summary ED Disposition Summary Entered On: 07/28/2016 9:25 NCA CERTIFIED CONCIERGE Performed On: 07/28/2016 9:25 NCA CERTIFIED CONCIERGE by NAVA CLEMONS RN ED Disposition Summary Present in Room During Exam/Procedure : Alone Printed Discharge Instructions Given to Patient : Yes Patient Status at Discharge from ED : Unchanged NAVA CLEMONS RN - 07/28/2016 9:25 NCA CERTIFIED CONCIERGE Source: [facility] [employer] Document Id: [id number] NCA CERTIFIED CONCIERGE!5 CERTIFIED CONCIERGE documented in this encounter Medications at Time [...] documented as of this encounter ED Notes Nava Clemons R.N. - 07/28/2016 9:25 AM CST ED Disposition Summary ED Disposition Summary Entered On: 07/28/2016 9:25 NCA CERTIFIED CONCIERGE Performed On: 07/28/2016 9:25 NCA CERTIFIED CONCIERGE by NAVA CLEMONS RN ED Disposition Summary Present in Room During Exam/Procedure : Alone Printed Discharge Instructions Given to Patient : Yes Patient Status at Discharge from ED : Unchanged NAVA CLEMONS RN - 07/28/2016 9:25 NCA CERTIFIED CONCIERGE Source: [employer] Document Id: [id number] NCA CERTIFIED CONCIERGE!5 CERTIFIED CONCIERGE Nava Clemons R.N. - 07/28/2016 9:10 AM CST ED Nurse Reassess ED Nurse Reassess Entered On: 07/28/2016 9:25 NCA CERTIFIED CONCIERGE Performed On: 07/28/2016 9:10 NCA CERTIFIED CONCIERGE by NAVA CLEMONS RN Pain Assessment Pain Symptoms : Yes NAVA CLEMONS RN - 07/28/2016 9:24 NCA CERTIFIED CONCIERGE Pain Scale Pain Scale Verbal 0-10 : Open NAVA CLEMONS RN - 07/28/2016 9:24 NCA CERTIFIED CONCIERGE Pain Pain Assessment Grid Pain 1 Location : Lower back Comments (Comment: better since pain meds given for low back pain [NAVA CLEMONS RN - 07/28/2016 9:24 NCA CERTIFIED CONCIERGE] ) NAVA CLEMONS RN - 07/28/2016 9:24 NCA CERTIFIED CONCIERGE Source: [employer] Document Id: [id number] NCA CERTIFIED CONCIERGE!9 CERTIFIED CONCIERGE Nava Clemons R.N. - 07/28/2016 9:10 AM CST ED Nurse Reassess ED Nurse Reassess Entered On: 07/28/2016 9:25 NCA CERTIFIED CONCIERGE Performed On: 07/28/2016 9:10 NCA CERTIFIED CONCIERGE by NAVA CLEMONS RN Pain Assessment Pain Symptoms : Yes NAVA CLEMONS RN - 07/28/2016 9:24 NCA CERTIFIED CONCIERGE Pain Scale Pain Scale Verbal 0-10 : Open NAVA CLEMONS RN - 07/28/2016 9:24 NCA CERTIFIED CONCIERGE Pain Pain Assessment Grid Pain 1 Location : Lower back Comments (Comment: better since pain meds given for low back pain [NAVA CLEMONS RN - 07/28/2016 9:24 NCA CERTIFIED CONCIERGE] ) NAVA CLEMONS RN - 07/28/2016 9:24 NCA CERTIFIED CONCIERGE Source: [employer] Document Id: [id number] NCA CERTIFIED CONCIERGE!9 CERTIFIED CONCIERGE Nava Clemons R.N. - 07/28/2016 8:34 AM CST ED Nurse Reassess ED Nurse Reassess Entered On: 07/28/2016 8:34 NCA CERTIFIED CONCIERGE Performed On: 07/28/2016 8:34 NCA CERTIFIED CONCIERGE by NAVA CLEMONS RN Pain Assessment Pain Symptoms : Yes NAVA CLEMONS RN - 07/28/2016 8:34 NCA CERTIFIED CONCIERGE Pain Scale Pain Scale Verbal 0-10 : Open NAVA CLEMONS RN - 07/28/2016 8:34 NCA CERTIFIED CONCIERGE Pain Pain Assessment Grid Pain 1 Location : Lower back Intensity : 8 Interventions : Medications NAVA CLEMONS RN - 07/28/2016 8:34 NCA CERTIFIED CONCIERGE Source: [employer] Document Id: [id number] NCA CERTIFIED CONCIERGE!11 CERTIFIED CONCIERGE Nava Clemons R.N. - 07/28/2016 8:34 AM CST ED Nurse Reassess ED Nurse Reassess Entered On: 07/28/2016 8:34 NCA CERTIFIED CONCIERGE Performed On: 07/28/2016 8:34 NCA CERTIFIED CONCIERGE by NAVA CLEMONS RN Pain Assessment Pain Symptoms : Yes NAVA CLEMONS RN - 07/28/2016 8:34 NCA CERTIFIED CONCIERGE Pain Scale Pain Scale Verbal 0-10 : Open NAVA CLEMONS RN - 07/28/2016 8:34 NCA CERTIFIED CONCIERGE Pain Pain Assessment Grid Pain 1 Location : Lower back Intensity : 8 Interventions : Medications NAVA CLEMONS RN - 07/28/2016 8:34 NCA CERTIFIED CONCIERGE Source: [facility] POWERCHART Document Id: [id number] NCA CERTIFIED CONCIERGE!11 CERTIFIED CONCIERGE Kirby Nelson M.D. - 07/28/2016 8:28 AM CST Addendum *ED Document Contains Addenda Patient: NAHID CHAKRABORTY Age: 21 years Sex: Male : 1995 Author: KIRBY NELSON MD Attachments: None Associated Diagnosis: Gastroenteritis Viral Or Presumed Viral; Diarrhea Basic Information Addendum: Assumed care from: ABBI CARABALLO DO, Time 07/28/2016 08:00:00. Medical Decision Making Documents reviewed:Emergency department nurses' notes, emergency department records. Results review:Lab results : Lab View 07/28/2016 7:47 NCA CERTIFIED CONCIERGE Hgb 17.3 g/dL Hct 50.8 % HI WBC 6.5 x10(9)/L RBC 5.79 x10(12)/L HI MCV 87.7 fL RDW 13.5 % Platelet 187 x10(9)/L Neutro Absolute 3.02 10(9)/L Lymph Absolute 1.84 x10(9)/L Graves Absolute 1.56 x10(9)/L HI Eos Absolute 0.05 x10(9)/L Baso Absolute 0.02 x10(9)/L Differential? Auto Sodium Lvl 139 mmol/L Potassium Lvl 3.8 mmol/L Chloride 101 mmol/L CO2 23 mmol/L AGAP 15 mmol/L Alkaline Phosphatase 45 U/L Glucose Lvl 90 mg/dL Creatinine 1.3 mg/dL EGFR (MDRD) >60.0 mL/min/SA EGFR (MDRD) >60.0 mL/min/SA BUN 14 mg/dL Calcium Lvl 9.2 mg/dL Protein Total 7.4 g/dL Albumin Lvl 4.1 g/dL AST 22 U/L ALT 24 U/L Bili Total 0.5 mg/dL Lipase Lvl 42 U/L . Reexamination/ Reevaluation Vital signs results included from flowsheet : Vital Signs 07/28/2016 8:09 NCA CERTIFIED CONCIERGE Temperature Core 37.2 DegC Peripheral Pulse Rate 76 /min Respiratory Rate 16 /min SpO2 98 % Systolic Blood Pressure 129 mmHg Diastolic Blood Pressure 95 mmHg >HHI BP Location Right upper Course: unchanged. Pain status: unchanged. Assessment: exam unchanged, General: Patient is alert, oriented and appears to be in no acute distress. HEENT: Lips are cracked. Mucous membranes are dry. Cardiovascular: Heart is regular rate and rhythm. There are no murmurs, gallops or rubs. Respiratory: Breathing is nonlabored. Lungs are clear to auscultation bilaterally. Abdomen: Soft with active bowel sounds. There is tenderness in the left lateral and left lower quadrant. There is no rebound guarding or rigidity. Back: There is mild left paraspinous muscle tenderness. Range of motion appears normal. Lower extremity neurologic exam is normal. . Interventions: Tylenol for back pain.. Notes: Patient appears to have viral gastroenteritis with abdominal and back cramping. Based on labs, exam and vital signs and no further imaging is indicated at this time. He responded well to Zofran,IV fluids and was able to tolerate orals here in the emergency room. He was provided with Tylenol for back discomfort and abdominal cramping. Conservative treatment including increasing oral fluids, using Imodium as needed for diarrhea, and started on bland diet was recommended. He will return if he develops any bloody stool, high fevers, worsening abdominal pain or inability to tolerate orals. The patient's questions were answered. . Impression and Plan Diagnosis Gastroenteritis Viral Or Presumed Viral (Discharge, Emergency medicine, Medical) Complaint of Diarrhea (Reason For Visit, Emergency medicine, Medical) Plan Condition: Stable. Disposition: Discharged: to home. Patient was given the following educational materials: GASTROENTERITIS, Viral [6y-Adult], GASTROENTERITIS, Viral [6y-Adult]. Limitations: No work, Note was provided excusing him from work tonight. . Follow up with: KALEE MORENO Within 2 - 4 days, only if needed. Counseled: Patient, Regarding diagnosis, Regarding diagnostic results, Regarding treatment plan, Regarding prescription. Electronically Signed By: KIRBY NELSON MD On: 07/28/2016 09:18 AM Source: [facility] POWERCHART Document Id: [id number]} CERTIFIED CONCIERGE Nava Clemons R.N. - 07/28/2016 8:10 AM CST ED Nurse Reassess ED Nurse Reassess Entered On: 07/28/2016 8:11 NCA CERTIFIED CONCIERGE Performed On: 07/28/2016 8:10 NCA CERTIFIED CONCIERGE by NAVA CLEMONS RN Pain Assessment Pain Symptoms : Yes NAVA CLEMONS RN - 07/28/2016 8:10 NCA CERTIFIED CONCIERGE Comfort Measures Patient Response : Pt up to bathroom but no diarrhea at this time. Will attempt to get stool sample as ordered if possible. NAVA CLEMONS RN - 07/28/2016 8:10 NCA CERTIFIED CONCIERGE Source: [employer] Document Id: [id number] NCA CERTIFIED CONCIERGE!5 CERTIFIED CONCIERGE Nava Clemons R.N. - 07/28/2016 8:10 AM CST ED Nurse Reassess ED Nurse Reassess Entered On: 07/28/2016 8:11 NCA CERTIFIED CONCIERGE Performed On: 07/28/2016 8:10 NCA CERTIFIED CONCIERGE by NAVA CLEMONS RN Pain Assessment Pain Symptoms : Yes NAVA CLEMONS RN - 07/28/2016 8:10 NCA CERTIFIED CONCIERGE Comfort Measures Patient Response : Pt up to bathroom but no diarrhea at this time. Will attempt to get stool sample as ordered if possible. NAVA CLEMONS RN - 07/28/2016 8:10 NCA CERTIFIED CONCIERGE Source: [employer] Document Id: [id number] NCA CERTIFIED CONCIERGE!5 CERTIFIED CONCIERGE Nava Clemons R.N. - 07/28/2016 7:45 AM CST ED Treatments and Procedures ED Treatments and Procedures Entered On: 07/28/2016 7:58 NCA CERTIFIED CONCIERGE Performed On: 07/28/2016 7:45 NCA CERTIFIED CONCIERGE by NAVA CLEMONS RN Peripheral IV Peripheral IV Assess/Intervention Grid Peripheral IV #1 IV Activity : Start Number of Attempts : 1 Date of Insertion : 07/28/2016 NCA CERTIFIED CONCIERGE IV Site : Hand Laterality : Left Catheter Size : 20 Catheter Type : Protective Site Condition : No complications Primary Tubing Changed : 07/28/2016 NCA CERTIFIED CONCIERGE Dressing/ Activity : Dry, Intact, Transparent Flow/ Patency : No complications Comments (Comment: Started PIV per protocol. Good blood return noted with good flush. [NAVA CLEMONS RN - 07/28/2016 7:57 NCA CERTIFIED CONCIERGE] ) NAVA CLEMONS RN - 07/28/2016 7:57 NCA CERTIFIED CONCIERGE Source: [employer] Document Id: [id number] NCA CERTIFIED CONCIERGE!15 CERTIFIED CONCIERGE Nava Clemons R.N. - 07/28/2016 7:45 AM CST ED Treatments and Procedures ED Treatments and Procedures Entered On: 07/28/2016 7:58 NCA CERTIFIED CONCIERGE Performed On: 07/28/2016 7:45 NCA CERTIFIED CONCIERGE by NAVA CLEMONS RN Peripheral IV Peripheral IV Assess/Intervention Grid Peripheral IV #1 IV Activity : Start Number of Attempts : 1 Date of Insertion : 07/28/2016 NCA CERTIFIED CONCIERGE IV Site : Hand Laterality : Left Catheter Size : 20 Catheter Type : Protective Site Condition : No complications Primary Tubing Changed : 07/28/2016 NCA CERTIFIED CONCIERGE Dressing/ Activity : Dry, Intact, Transparent Flow/ Patency : No complications Comments (Comment: Started PIV per protocol. Good blood return noted with good flush. [NAVA CLEMONS RN - 07/28/2016 7:57 NCA CERTIFIED CONCIERGE] ) NAVA CLEMONS RN - 07/28/2016 7:57 NCA CERTIFIED CONCIERGE Source: [employer] Document Id: [id number] NCA CERTIFIED CONCIERGE!15 CERTIFIED CONCIERGE Abbi Caraballo D.O. - 07/28/2016 7:20 AM CST Diarrhea Document Contains Addenda Patient: NAHID CHAKRABORTY Age: 21 years Sex: Male : 1995 Author: RICE, ABBI N DO Attachments: None Basic Information Time seen: Date & time 07/28/2016 07:20:00. History source: Patient. Arrival mode: Private vehicle, walking. History limitation: None. Additional information: Chief Complaint from Nursing Triage Note : Chief Complaint Description 07/28/2016 7:12 NCA CERTIFIED CONCIERGE Chief Complaint Description Pt here for c/o diarrhea for last 24 hours; chills and aches for last couple of days. Denies nausea/vomiting . History of Present Illness The patient presents with 21-year-old male with history of female to male transition and oophorectomy presents for evaluation of body aches and chills as well as countless episodes of diarrhea in the last 24 hours. He is nauseated, but has had no vomiting. Mild left lower quadrant abdominal pain. No bloody diarrhea. No fever. Poor appetite yesterday, and states he has not kept up well with fluids dueto the nausea. He called into work last night at the [employer] in his boss told him that multiple people have been out sick with GI symptoms. . The onset was 1 days ago. The course/duration of symptoms is constant. The character is Brown, nonbloody. There are exacerbating factors including eating and drinking. The relieving factor is none. Therapy today: none. Associated symptoms: nausea, chills, denies abdominal pain, denies vomiting and denies fever. Review of Systems Constitutional symptoms: Chills, but no fever or no fatigue. Skin symptoms: No pallor, but no jaundice or no rash. Eye symptoms: No diplopia or no blurred vision. ENMT symptoms: No sore throat or no nasal congestion. Respiratory symptoms: No shortness of breath or no cough. Cardiovascular symptoms: No chest pain or no palpitations. Gastrointestinal symptoms: Abdominal pain, left lower quadrant, achy, cramping, nausea and diarrhea,but no vomiting or no rectal bleeding. Genitourinary symptoms: No dysuria or no hematuria. Musculoskeletal symptoms: No back pain or no Muscle pain. Neurologic symptoms: No headache or no dizziness. Endocrine symptoms: No polyuria or no polydipsia. Allergy/immunologic symptoms: No recurrent infections or no impaired immunity. Health Status Allergies: No active allergies have been recorded.. Medications: (Selected) Inpatient Medications Ordered Saline bolus: 1,000 mL, 2000 mL/hr, IVPB, Once ondansetron: 4 mg, 2 mL, IV Push, Once Documented Medications Documented Calcium 500+D: 1 tab(s), 2xDay Migraine medication: Testosterone: 65 mg. Past Medical/ Family/ Social History Medical history: Negative. Surgical history: Bilateral oophorectomy. Family history: Not significant. Social history: Tobacco use: Denies, Drug use: Denies, Occupation: Employed. Physical Examination Vital Signs: Vital Signs 07/28/2016 7:12 NCA CERTIFIED CONCIERGE Temperature Core 37.8 DegC Peripheral Pulse Rate 83 /min Respiratory Rate 16 /min SpO2 94 % Systolic Blood Pressure 128 mmHg Diastolic Blood Pressure 94 mmHg >HHI Mean Arterial Pressure 105 mmHg BP Location Right upper , Measurements 07/28/2016 7:12 NCA CERTIFIED CONCIERGE Height 162 cm Dosing Weight 70.00 kg NA Estimated Weight 70 kg , SpO2 07/28/2016 7:12 NCA CERTIFIED CONCIERGE SpO2 94 % . General: Alert and no acute distress, but not ill-appearing. Skin: Warm, dry, pink, no pallor and no rash. Head: Normocephalic and atraumatic. Neck: Supple and trachea midline. Eye: Pupils are equal, round and reactive to light, extraocular movements are intact and normal conjunctiva. Ears, nose, mouth and throat: Lips dry and cracked. Mucous membranes tacky. Cardiovascular: Regular rate and rhythm, No murmur, Normal peripheral perfusion and No edema. Respiratory: Lungs are clear to auscultation, respirations are non-labored, breath sounds are equal and Symmetrical chest wall expansion. Chest wall: No tenderness and No deformity. Back: Normal range of motion. Musculoskeletal: No swelling Gastrointestinal: Soft, Non distended, Normal bowel sounds and Very minimal left lower quadrant tenderness to palpation. No rebound or guarding. Abdomen is otherwise nontender.. Neurological: Alert and oriented to person, place, time, and situation, normal motor observed, normal speech observed and normal coordination observed. Psychiatric: Cooperative and appropriate mood & affect. Medical Decision Making OrdersLaunch Orders Laboratory: GI Pathogen Panel by PCR (Order Processing): Stat, 07/28/2016 7:40 NCA CERTIFIED CONCIERGE, Once Comprehensive Metabolic Panel (Order Processing): Stat, 07/28/2016 7:39 NCA CERTIFIED CONCIERGE, Once Lipase Level (Order Processing): Stat, 07/28/2016 7:39 NCA CERTIFIED CONCIERGE, Once CBC (includes Auto Differential) (Order Processing): Stat, 07/28/2016 7:39 NCA CERTIFIED CONCIERGE, Once Patient Care: Peripheral IV (Order Processing): 07/28/2016 7:39 NCA CERTIFIED CONCIERGE, Once Pharmacy: Saline bolus (Order Processing): 1,000 mL, IVPB, Once ondansetron (Order Processing): 4 mg, IV Push, Once. Notes:Patient presents for evaluation of multiple episodes of diarrhea over the last 24 hours. He missed work last night, and needs in no. He had not tried any home medications. No fevers. His abdomen is minimally tender on exam. Will check baseline labs and send a stool sample for GI pathogens panel.I will give Zofran and IV fluids while awaiting lab results. Patient was signed out to Dr. Nelson pending re-evaluation after the labs are resulted and medications administered.. Addendum (Comment: Please note this report has been produced using speech recognition software and may contain errors related to that system including errors in grammar, punctuation, and spelling, as well as words and phrases that may be inappropriate. If there are any questions or concerns please feel free tocontact the dictating provider for clarification.) Electronically Signed By: ABBI CARABALLO DO On: 07/28/2016 07:47 AM Modified by and Electronically Signed by: ABBI CARABALLO DO On: 07/28/2016 07:47 AM Source: [facility] POWERCHART Document Id: [id number]} CERTIFIED CONCIERGE Nava Clemons, RDarioN. - 07/28/2016 7:12 AM CST ED Primary Assessment Document Has Been Updated ED Primary Assessment Entered On: 07/28/2016 7:19 NCA CERTIFIED CONCIERGE Performed On: 07/28/2016 7:12 NCA CERTIFIED CONCIERGE by NAVA CLEMONS RN Reason For Visit (As Of: 07/28/2016 07:19:12 NCA CERTIFIED CONCIERGE) Diagnoses(Active) Diarrhea Date: 07/28/2016 ; Diagnosis Type: Reason For Visit ; Confirmation: Complaint of ; ClinicalDx: Diarrhea ; Classification: Medical ; Clinical Service: Emergency medicine ; Code: PNED ; Probability: 0 ; Diagnosis Code: [id number] Triage Chief Complaint Description : Pt here for c/o diarrhea for last 24 hours; chills and aches for last couple of days. Denies nausea/vomiting Information Given By : Patient Present in Room During Exam/Procedure : Alone Mode of Arrival ED : Private vehicle Track : Medical Languages : Canadian Vital Signs Assessed : Yes Treatments Prior to Arrival : Home treatments Is Patient Female and 13-50 no hysterectomy : No NAVA CLEMONS RN - 07/28/2016 7:12 NCA CERTIFIED CONCIERGE Vital Signs Temperature Core : 37.8 DegC(Converted to: 100.0 DegF) Peripheral Pulse Rate : 83 /min Respiratory Rate : 16 /min Systolic Blood Pressure : 128 mmHg Diastolic Blood Pressure : 94 mmHg (>HHI) NIBP Mean : 105 mmHg BP Location : Right upper extremity SpO2 : 94 % Oxygen Saturation Monitoring Frequency : Intermittent Oxygen Therapy : Room air Height : 162 cm(Converted to: 5 ft 4 inch(es)) Estimated Weight : 70 kg Estimated Weight Conversion to Pounds : 154 lb NAVA CLEMONS RN - 07/28/2016 7:12 NCA CERTIFIED CONCIERGE Pain Assessment Pain Symptoms : Yes NAVA CLEMONS RN - 07/28/2016 7:12 NCA CERTIFIED CONCIERGE Pain Scale Pain Scale Verbal 0-10 : Open NAVA CLEMONS RN - 07/28/2016 7:12 NCA CERTIFIED CONCIERGE Pain Pain Assessment Grid Pain 1 Location : Lower back Time Pattern : Intermittent Quality : Aching NAVA CLEMONS RN - 07/28/2016 7:12 NCA CERTIFIED CONCIERGE Comfort Measures Comfort Measures Grid Positioning : Yes NAVA CLEMONS RN - 07/28/2016 7:12 NCA CERTIFIED CONCIERGE ED Physician Notification Time ED Physician Notification Time : 07/28/2016 7:14 NCA CERTIFIED CONCIERGE NAVA CLEMONS RN - 07/28/2016 7:12 NCA CERTIFIED CONCIERGE ANA ANA Level 1 : No ANA Level 2 : No ANA Level 3 : One NAVA CLEMONS RN - 07/28/2016 7:12 NCA CERTIFIED CONCIERGE DCP GENERIC CODE Tracking Acuity : 4 -Less Urgent Tracking Group : MAQN ED NAVA CLEMONS RN - 07/28/2016 7:12 NCA CERTIFIED CONCIERGE Allergy (As Of: 07/28/2016 07:19:13 NCA CERTIFIED CONCIERGE) ID Screen Drug Resistant Organism : No NAVA CLEMONS RN - 07/28/2016 7:12 NCA CERTIFIED CONCIERGE TB Symptoms Grid Bloody Sputum : No Fatigue : No Fever : No Loss of Appetite : No Night Sweats : No Persistent Cough Greater Than 3 Weeks : No Weight Loss : No NAVA CLEMONS RN - 07/28/2016 7:12 NCA CERTIFIED CONCIERGE Alcohol and Drug Use : No Employee of Institutional Living Environment : No Health Care Employee : No History of Exposure to TB : No History of Positive Chest X-Ray for TB : No History of Positive TB Skin Test : No Homeless : No Known Immunosuppression : No Recent Immigrant : No Resident of Institutional Living Environment : No NAVA CLEMONS RN - 07/28/2016 7:12 NCA CERTIFIED CONCIERGE Immunizations Immunizations Current : Unknown Last Tetanus : Unknown Influenza : None NAVA CLEMONS RN - 07/28/2016 7:12 NCA CERTIFIED CONCIERGE Respiratory Airway : Patent Respirations : Unlabored Respiratory Pattern : Regular NAVA CLEMONS RN - 07/28/2016 7:12 NCA CERTIFIED CONCIERGE Cardiovascular Heart Rhythm : Regular Skin Color : Normal for ethnicity Skin Description : Normal Skin Temperature : Warm NAVA CLEMONS RN - 07/28/2016 7:12 NCA CERTIFIED CONCIERGE Neurological Last Well Time Known : Not applicable Level of Consciousness : Alert Orientation : Oriented x 3 Characteristics of Speech : Clear NAVA CLEMONS RN - 07/28/2016 7:12 NCA CERTIFIED CONCIERGE ED Psychosocial Affect/Behavior : Calm, Cooperative Domestic Abuse Concerns : None Behavioral Health Screen/Safety Assmt : No NAVA CLEMONS RN - 07/28/2016 7:12 NCA CERTIFIED CONCIERGE Gastrointestinal Nutrition ED : Adequate GI Detailed Assessment : Yes NAVA CLEMONS RN - 07/28/2016 7:12 NCA CERTIFIED CONCIERGE GI Detailed GI Patient Stated Symptoms : Diarrhea Bowel Movement Last Date : 07/28/2016 NCA CERTIFIED CONCIERGE NAVA CLEMONS RN - 07/28/2016 7:12 NCA CERTIFIED CONCIERGE Musculoskeletal Fall Prevention Education Provided : NAVA GREEN RN - 07/28/2016 7:12 NCA CERTIFIED CONCIERGE Social Habits Exposure to Tobacco Smoke : Patient smokes Smoking Status : Current every day smoker Tobacco 2A : Yes Tobacco Use/Currently Using : Yes Tobacco Use/Last 30 Days : Yes Tobacco Use/Last 12 months : Yes Type : Other: e-sig NAVA CLEMONS RN - 07/28/2016 7:12 NCA CERTIFIED CONCIERGE Source: [facility] POWERCHART Document Id: [id number] NCA CERTIFIED CONCIERGE!106 CERTIFIED CONCIERGE Nava Clemons R.N. - 07/28/2016 7:12 AM CST ED Primary Assessment Document Has Been Updated ED Primary Assessment Entered On: 07/28/2016 7:19 NCA CERTIFIED CONCIERGE Performed On: 07/28/2016 7:12 NCA CERTIFIED CONCIERGE by NAVA CLEMONS RN Reason For Visit (As Of: 07/28/2016 07:19:12 NCA CERTIFIED CONCIERGE) Diagnoses(Active) Diarrhea Date: 07/28/2016 ; Diagnosis Type: Reason For Visit ; Confirmation: Complaint of ; ClinicalDx: Diarrhea ; Classification: Medical ; Clinical Service: Emergency medicine ; Code: PNED ; Probability: 0 ; Diagnosis Code: [id number] Triage Chief Complaint Description : Pt here for c/o diarrhea for last 24 hours; chills and aches for last couple of days. Denies nausea/vomiting Information Given By : Patient Present in Room During Exam/Procedure : Alone Mode of Arrival ED : Private vehicle Track : Medical Languages : Canadian Vital Signs Assessed : Yes Treatments Prior to Arrival : Home treatments Is Patient Female and 13-50 no hysterectomy : No NAVA CLEMONS RN - 07/28/2016 7:12 NCA CERTIFIED CONCIERGE Vital Signs Temperature Core : 37.8 DegC(Converted to: 100.0 DegF) Peripheral Pulse Rate : 83 /min Respiratory Rate : 16 /min Systolic Blood Pressure : 128 mmHg Diastolic Blood Pressure : 94 mmHg (>HHI) NIBP Mean : 105 mmHg BP Location : Right upper extremity SpO2 : 94 % Oxygen Saturation Monitoring Frequency : Intermittent Oxygen Therapy : Room air Height : 162 cm(Converted to: 5 ft 4 inch(es)) Estimated Weight : 70 kg Estimated Weight Conversion to Pounds : 154 lb NAVA CLEMONS RN - 07/28/2016 7:12 NCA CERTIFIED CONCIERGE Pain Assessment Pain Symptoms : Yes NAVA CLEMONS RN - 07/28/2016 7:12 NCA CERTIFIED CONCIERGE Pain Scale Pain Scale Verbal 0-10 : Open NAVA CLEMONS RN - 07/28/2016 7:12 NCA CERTIFIED CONCIERGE Pain Pain Assessment Grid Pain 1 Location : Lower back Time Pattern : Intermittent Quality : Aching NAVA CLEMONS RN - 07/28/2016 7:12 NCA CERTIFIED CONCIERGE Comfort Measures Comfort Measures Grid Positioning : Yes NAVA CLEMONS RN - 07/28/2016 7:12 NCA CERTIFIED CONCIERGE ED Physician Notification Time ED Physician Notification Time : 07/28/2016 7:14 NCA CERTIFIED CONCIERGE NAVA CLEMONS RN 07/28/2016 7:12 NCA CERTIFIED CONCIERGE ANA ANA Level 1 : No ANA Level 2 : No ANA Level 3 : One NAVA CLEMONS RN 07/28/2016 7:12 NCA CERTIFIED CONCIERGE DCP GENERIC CODE Tracking Acuity : 4 -Less Urgent Tracking Group : MAQN ED NAVA CLEMONS RN - 07/28/2016 7:12 NCA CERTIFIED CONCIERGE Allergy (As Of: 07/28/2016 07:19:13 NCA CERTIFIED CONCIERGE) ID Screen Drug Resistant Organism : No NAVA CLEMONS RN 07/28/2016 7:12 NCA CERTIFIED CONCIERGE TB Symptoms Grid Bloody Sputum : No Fatigue : No Fever : No Loss of Appetite : No Night Sweats : No Persistent Cough Greater Than 3 Weeks : No Weight Loss : No NAVA CLEMONS RN 07/28/2016 7:12 NCA CERTIFIED CONCIERGE Alcohol and Drug Use : No Employee of Institutional Living Environment : No Health Care Employee : No History of Exposure to TB : No History of Positive Chest X-Ray for TB : No History of Positive TB Skin Test : No Homeless : No Known Immunosuppression : No Recent Immigrant : No Resident of Institutional Living Environment : No NAVA CLEMONS RN 07/28/2016 7:12 NCA CERTIFIED CONCIERGE Immunizations Immunizations Current : Unknown Last Tetanus : Unknown Influenza : None NAVA CLEMONS RN 07/28/2016 7:12 NCA CERTIFIED CONCIERGE Respiratory Airway : Patent Respirations : Unlabored Respiratory Pattern : Regular NAVA CLEMONS RN 07/28/2016 7:12 NCA CERTIFIED CONCIERGE Cardiovascular Heart Rhythm : Regular Skin Color : Normal for ethnicity Skin Description : Normal Skin Temperature : Warm NAVA CLEMONS RN 07/28/2016 7:12 NCA CERTIFIED CONCIERGE Neurological Last Well Time Known : Not applicable Level of Consciousness : Alert Orientation : Oriented x 3 Characteristics of Speech : Clear NAVA CLEMONS RN 07/28/2016 7:12 NCA CERTIFIED CONCIERGE ED Psychosocial Affect/Behavior : Calm, Cooperative Domestic Abuse Concerns : None Behavioral Health Screen/Safety Assmt : No NAVA CLEMONS RN 07/28/2016 7:12 NCA CERTIFIED CONCIERGE Gastrointestinal Nutrition ED : Adequate GI Detailed Assessment : Yes NAVA CLEMONS RN 07/28/2016 7:12 NCA CERTIFIED CONCIERGE GI Detailed GI Patient Stated Symptoms : Diarrhea Bowel Movement Last Date : 07/28/2016 NCA CERTIFIED CONCIERGE NAVA CLEMONS RN 07/28/2016 7:12 NCA CERTIFIED CONCIERGE Musculoskeletal Fall Prevention Education Provided : NAVA GREEN RN 07/28/2016 7:12 NCA CERTIFIED CONCIERGE Social Habits Exposure to Tobacco Smoke : Patient smokes Smoking Status : Current every day smoker Tobacco 2A : Yes Tobacco Use/Currently Using : Yes Tobacco Use/Last 30 Days : Yes Tobacco Use/Last 12 months : Yes Type : Other: e-sig NAVA CLEMONS RN - 07/28/2016 7:12 NCA CERTIFIED CONCIERGE Source: [facility] Answer.To Document Id: [id number] NCA CERTIFIED CONCIERGE!106 CERTIFIED CONCIERGE documented in this encounter Miscellaneous Notes Miscellaneous - Conversion, Historical Provider Ser - 07/28/2016 9:25 AM NCA CERTIFIED CONCIERGE Coding Summary-Paper Based CODING DATE: 08/07/2016 FINAL [facility] STATUS: * Discharged to Home or Self Care PAYOR: [employer] ADMIT DX: R52 Pain, unspecified REASON FOR VISIT DX: R52 Pain, unspecified FINAL DX: PRINCIPAL: A08.4 Viral intestinal infection, unspecified SECONDARY: F17.200 Nicotine dependence, unspecified, uncomplicated PROCEDURES DOCTOR NAME DATE NOTE: The code number assigned matches the documented diagnosis and / or procedure in the patient's chart. However, the narrative phrase printed from the coding software may appear abbreviated, or result in slightly different terminology. Coded By: MARC MARTÍNEZ Date Saved: 08/07/2016 09:41 am Source: [employer] Document Id: [id number] Miscellaneous - Nava Clemons RDarioN. - 07/28/2016 9:25 AM CST Valuables/Belongings Valuables/Belongings Entered On: 07/28/2016 9:26 NCA CERTIFIED CONCIERGE Performed On: 07/28/2016 9:25 NCA CERTIFIED CONCIERGE by NAVA CLEMONS RN Valuables/Belongings Belongings Sent Home With : Pt took all belongings home Home Medication Disposition : None brought in with patient NAVA CLEMONS RN - 07/28/2016 9:25 NCA CERTIFIED CONCIERGE Source: [facility] Answer.To Document Id: [id number] NCA CERTIFIED CONCIERGE!4 CERTIFIED CONCIERGE Miscellaneous - Conversion, Historical Provider Ser - 07/28/2016 9:25 AM NCA CERTIFIED CONCIERGE Coding Summary-Paper Based CODING DATE: 08/07/2016 FINAL [facility] STATUS: * Discharged to Home or Self Care PAYOR: [employer] ADMIT DX: R52 Pain, unspecified REASON FOR VISIT DX: R52 Pain, unspecified FINAL DX: PRINCIPAL: A08.4 Viral intestinal infection, unspecified SECONDARY: F17.200 Nicotine dependence, unspecified, uncomplicated PROCEDURES DOCTOR NAME DATE NOTE: The code number assigned matches the documented diagnosis and / or procedure in the patient's chart. However, the narrative phrase printed from the coding software may appear abbreviated, or result in slightly different terminology. Coded By: MARC MARTÍNEZ Date Saved: 08/07/2016 09:41 am [facility] Document Id: [id number] CERTIFIED CONCIERGE [employer] - Nava Clemons R.N. - 07/28/2016 9:25 AM CST Valuables/Belongings Valuables/Belongings Entered On: 07/28/2016 9:26 NCA CERTIFIED CONCIERGE Performed On: 07/28/2016 9:25 NCA CERTIFIED CONCIERGE by NAVA CLEMONS RN Valuables/Belongings Belongings Sent Home With : Pt took all belongings home Home Medication Disposition : None brought in with patient NAVA CLEMONS RN - 07/28/2016 9:25 NCA CERTIFIED CONCIERGE [facility] Document Id: [id number] NCA CERTIFIED CONCIERGE!4 CERTIFIED CONCIERGE Miscellaneous - Abbi Caraballo D.O. - 07/28/2016 7:46 AM CST Work Excuse July 28, 2016 NAHID CHAKRABORTY [address] [place] [phone] Dear NAHID CHAKRABORTY, You were examined in my office on: 07/28/2016 Reason for work excuse: Medical Illness ( X ) Yes ( _ ) No Injury ( _ ) Yes ( _ ) No Is excused from all work: ( X ) Yes ( _ ) No Has work limitations: ( _ ) Yes ( _ ) No As follows: _ Limitations apply until: _ Follow-Up Appointment : ( _ ) Return to Work date: 07/30/2016 Notes: _ Sincerely, ABBI CARABALLO [address] [place] [id number] Electronic Signature Electronically Signed By: ABBI CARABALLO DO On: July 28, 2016 This document has images extracted. Source: [facility] CheckCHART Document Id: [id number] [place] - Abbi Caraballo D.O. - 07/28/2016 7:46 AM CST Work Excuse July 28, 2016 NAHID CHAKRABORTY [address] [place] [phone] Dear NAHID CHAKRABORTY, You were examined in my office on: 07/28/2016 Reason for work excuse: Medical Illness ( X ) Yes ( _ ) No Injury ( _ ) Yes ( _ ) No Is excused from all work: ( X ) Yes ( _ ) No Has work limitations: ( _ ) Yes ( _ ) No As follows: _ Limitations apply until: _ Follow-Up Appointment : ( _ ) Return to Work date: 07/30/2016 Notes: _ Sincerely, ABBI CARABALLO [address] [place] [phone] Electronic Signature Electronically Signed By: ABBI CARABALLO DO On: July 28, 2016 This document has images extracted. Source: [facility] Answer.To Document Id: [id number] CERTIFIED CONCIERGE Roxi - Nava Clemons R.NDario - 07/28/2016 7:07 AM CST Facility Charge Ticket 2.0 11.0 DX Facility Charge Ticket 2.0 11.0 DX Entered On: 07/28/2016 9:26 NCA CERTIFIED CONCIERGE Performed On: 07/28/2016 7:07 NCA CERTIFIED CONCIERGE by NAVA CLEMONS RN Facility Charge Ticket 2.0 11.0 DX ED Other Charges : Standard ED Encounter TVL Level Translated RTF : Diarrhea TVL:4 TVL Level for Facility Charge Ticket : Level 4 Arrival Mode Calc : 1 Mode of Arrival ED : Private vehicle [facility] Mode of Arrival Interpreted : Standard [facility] Process Management : None Order Management RTF : Laboratory CBC (includes Auto Differential),07/28/16 07:39,ABBI CARABALLO DO Completed Lipase Level,07/28/16 07:39,ABBI CARABALLO DO Completed Comprehensive Metabolic Panel,07/28/16 07:39,ABBI CARABALLO DO Completed Automated Diff-5 Part,07/28/16 07:49,ABBI CARABALLO DO Completed GI Pathogen Panel by PCR,07/28/16 07:40,ABBI CARABALLO DO Ordered Lynx Order Management : Lab tests 30 Minutes Critical Care : No Nursing Notes RTF : Nursing Notes ED Primary Assessment,07/28/16 07:12,NAVA CLEMONS AND [employer] BUS TROLLEY Nurse Reassess,07/28/16 09:10,NAVA CLEMONS AND [employer]OL[employer] Nurse Reassess,07/28/16 08:34,NAVA CLEMONS AND [employer] TROLLEY Nurse Reassess,07/28/16 08:10,NAVA CLEMONS RN [facility]x Nursing Assessment : Triage and 3-5 nursing assessments Lynx Disposition : Discharge Disposition RTF : discharge [facility]x Total Points with Diagnosis Control : 9 Lynx Visit Level : 86731 Level 4 Treatments Prior to Arrival : Home treatments NAVA CLEMONS RN - 07/28/2016 9:26 NCA CERTIFIED CONCIERGE Source: [facility] POWERCHART Document Id: [id number] NCA CERTIFIED CONCIERGE!19 CERTIFIED CONCIERGE Miscellaneous - Nava Clemons RDarioN. - 07/28/2016 7:07 AM CST Facility Charge Ticket 2.0 11.0 DX Facility Charge Ticket 2.0 11.0 DX Entered On: 07/28/2016 9:26 NCA CERTIFIED CONCIERGE Performed On: 07/28/2016 7:07 NCA CERTIFIED CONCIERGE by NAVA CLEMONS RN Facility Charge Ticket 2.0 11.0 DX ED Other Charges : Standard ED Encounter TVL Level Translated RTF : Diarrhea TVL:4 TVL Level for Facility Charge Ticket : Level 4 Arrival Mode Calc : 1 Mode of Arrival ED : Private vehicle Lynx Mode of Arrival Interpreted : Standard [facility] Process Management : None Order Management RTF : Laboratory CBC (includes Auto Differential),07/28/16 07:39,ABBI CARABALLO DO Completed Lipase Level,07/28/16 07:39,ABBI CARABALLO DO Completed Comprehensive Metabolic Panel,07/28/16 07:39,ABBI CARABALLO DO Completed Automated Diff-5 Part,07/28/16 07:49,ABBI CARABALLO DO Completed GI Pathogen Panel by PCR,07/28/16 07:40,ABBI CARABALLO DO Ordered Lynx Order Management : Lab tests 30 Minutes Critical Care : No Nursing Notes RTF : Nursing Notes ED Primary Assessment,07/28/16 07:12,NAVA CLEMONS AND [employer] TROLLEY Nurse Reassess,07/28/16 09:10,NAVA CLEMONS AND [employer] Nurse Reassess,07/28/16 08:34,NAVA CLEMONS AND [employer]OL[employer] Nurse Reassess,07/28/16 08:10,NAVA CLEMONS RN [facility]x Nursing Assessment : Triage and 3-5 nursing assessments Lynx Disposition : Discharge Disposition RTF : discharge Lynx Total Points with Diagnosis Control : 9 Lynx Visit Level : 80576 Level 4 Treatments Prior to Arrival : Home treatments NAVA CLEMONS RN - 07/28/2016 9:26 NCA CERTIFIED CONCIERGE Source: [facility] POWERCHART Document Id: [id number] NCA CERTIFIED CONCIERGE!19 CERTIFIED CONCIERGE documented in this encounter Plan of Treatment Upcoming Encounters Date Type Specialty Care Team Description 05/23/2022 Telemedicine Endocrinology Arely Bond M.B., B.Ch. [address] [place], [place] [phone] (Wo rk) documented as of this encounter Procedures Procedure Name Priority Date/Time Associated Comments Diagnosis GI PATHOGEN PANEL, Routine 07/28/2016 8:01 AM Res ults for this PCR, F NCA CERTIFIED CONCIERGE procedure are i n the results section. AUTOMATED Routine 07/28/2016 7:47 AM Results f or this DIFFERENTIAL, B NCA CERTIFIED CONCIERGE procedure ar e in the results section. CBC WITH DIFFERENTIAL, Routine 07/28/2016 7:47 AM Results for this B NCA CERTIFIED CONCIERGE procedure are i n the results section. LIPASE, S/P Routine 07/28/2016 7:47 AM Results f or this NCA CERTIFIED CONCIERGE procedure are i n the results section. COMPREHENSIVE Routine 07/28/2016 7:47 AM Results for this METABOLIC PANEL, S/P NCA CERTIFIED CONCIERGE procedu re are in the results section. documented in this encounter Results GI Pathogen Panel, PCR, F (07/28/2016 8:01 AM NCA CERTIFIED CONCIERGE) [facility] Method Time Signature HX GIP Negative Negative POWERCHART Campylobacter species HX GIP Negative Negative POWERCHART Clostridium difficile toxin Comment: A positive C. difficile result may reflect asymptomatic carriage or C. difficile-associated diarrhea. HX GIP Plesiomonas shigelloides Negative Negative POWERCHART HX GIP Salmonella species Negative Negative PAUL RCHART HX GIP Vibrio species Negative Negative POWERCHA RT HX GIP Vibrio cholera Negative Negative POWERCHA RT HX GIP Yersinia enterocolitica Negative Negative POWERCHART Comment: Yersinia species other than Leander florentino enterocolitica (e.g., Yersinia kristensenii, Yersinia frederiksenii, Ye rsinia intermedia) may yield a positive Yersinia enterocolitica result. HX GIP Enteroaggregative E. coli (EAEC) Negative Negative POWERCHART Comment: A positive EAEC result may refl ect either asymptomatic carriage or diarrhea caused by EAEC. HX GIP Enteropathogenic E. coli (EPEC) Negative Negative POWERCHART Comment: A positive EPEC result may refl ect either asymptomatic carriage or diarrhea caused by EPEC. HX GIP Enterotoxigenic E. coli (ETEC) Negative Negative POWERCHART HX GIP Shiga toxin producing E. coli Negative Negative POWERCHART HX GIP Shigella/Enteroinvasive E. coli Negative Negative POWERCHART HX GIP Cryptosporidium species Negative Negative POWERCHART HX GIP Cyclospora cayetanensis Negative Negative POWERCHART HX GIP Entamoeba histolytica Negative Negative P OWERCHART HX GIP Giardia Negative Negative POWERCHART HX GIP Adenovirus F40/41 Negative Negative POWER CHART HX GIP Astrovirus Negative Negative POWERCHART HX GIP Norovirus GI/GII Negative Negative POWERC MEJIA HX GIP Rotavirus Negative Negative POWERCHART HX GIP Sapovirus Negative Negative POWERCHART HX GIP Specimen Source Stool POWERCH ART HX GIP Interpretation See Comment NOEMI MEJIA Comment: This assay is performed using the FDA-cl eared FilmArray GI Panel ([employer] Patients with positive result(s) could r equire isolation precautions, if hospitalized. Refer to [facility] Disease List for recommendations. [email or web address] Positive results, for the following ente camacho infections, are reportable to the [place] Department of Health: Campylobacter spp.; Salmonella spp.; Vib chelsie spp.; Yersinia spp.; E. coli (including O157:H7, other enterohemorrhagic, enteropathogenic, enteroinvasive, and enterotoxigenic varieties); Shigella spp.; Cry ptosporidium spp.; Cyclospora spp.; Giar lamine lamblia; and retroviruses. Specimen (Source) Anatomical Collection Method Collection Time Re ceived Time Location / / Volume Laterality Stool 07/28/2016 8:01 AM NCA CERTIFIED CONCIERGE Abbi Caraballo D.O. LAB MICROBIOLOGY - GENERAL O RDERABLES Performing Organization Address City/State/ZIP Code Phon e Number POWERCHART (ABNORMAL) Automated Differential (07/28/2016 7:47 AM NCA CERTIFIED [facility]ERGE[facility] Signature Absolute 3.02 1.70 - POWERCHART Neutrophils 7.00 109L Lymphocytes 1.84 0.90 - POWERCHART 2.90 X109L Monocytes 1.56 (H) 0.30 - POWERCHART 0.90 X109L Eosinophils 0.05 0.05 - POWERCHART 0.50 X109L Absolute 0.02 0.00 - POWERCHART Basophil 0.30 X109L Specimen Anatomical Collection Method Collection Time Receive d Time (Source) Location / / Volume Laterality Blood 07/28/2016 7:47 AM 7 7:47 NCA CERTIFIED CONCIERGE AM NCA CERTIFIED CONCIERGE Abbi Caraballo D.O. LAB BLOOD ADD-ON Performing Organization Address City/[facility] Phon e Number POWERCHART (ABNORMAL) CBC with Differential (07/28/2016 7:47 AM NCA CERTIFIED CONCIERGE) [facility] [employer] Method Time Signature Leukocytes 6.5 3.5 - 10.5 POWERCHART X109L Erythrocytes 5.79 (H) 4.32 - POWERCHART 5.72 X5089U Hemoglobin 17.3 13.5 - POWERCHART 17.5 GDL Hematocrit 50.8 (H) 38.8 - POWERCHART 50.0 MCV 87.7 81.2 - POWERCHART 95.1 FL HX RDW 13.5 11.8 - POWERCHART 15.6 Platelet Count 187 150 - 450 POWERCHART X109L HXDifferential? Auto POWERCHART Specimen (Source) Anatomical Collection Method Collection Time Re ceived Time Location / / Volume Laterality Blood 07/28/2016 7:47 AM NCA CERTIFIED CONCIERGE Abbi Caraballo D.O. LAB BLOOD ADD-ON Performing Organization Address City/State/ZIP Code Phon e Number POWERCHART CMP (Comprehensive Metabolic Panel) (07/28/2016 7:47 AM NCA CERTIFIED CONCIERGE) [facility] gist Method Time Signature Alanine 24 7 - 55 UL POWERCHART Amniotransferase, LD Albumin, S 4.1 3.5 - 5.2 POWERCHART GDL Alkaline 45 40 - 130 UL POWERCHART Phosphatase, S Aspartate 22 8 - 48 UL POWERCHART Aminotransferase (AST), S Sodium, S 139 135 - 145 POWERCHART MMOLL Potassium, S 3.8 3.5 - 5.1 POWERCHART MMOLL Chloride, S 101 98 - 107 POWERCHART MMOLL CO2 Total 23 22 - 29 POWERCHART MMOLL BUN (Blood Urea 14 6 - 24 MGDL POWERCHART Nitrogen), S Creatinine 1.3 0.8 - 1.3 POWERCHART MGDL Calcium, Total, S 9.2 8.6 - 10.3 POWERCHART MGDL Anion Gap 15 7 - 15 POWERCHART MMOLL HXeGFR (MDRD) >60.0 >=60.0 POWERCHART MLMINSA eGFR Black/ >60.0 >=60.0 POWERCHART [place] MLMINSA Bilirubin, Total, S 0.5 <=1.2 MGDL POWERCHAR T Total Protein, S 7.4 6.3 - 7.9 POWERCHART GDL Glucose 90 70 - 140 POWERCHART MGDL Specimen (Source) Anatomical Collection Method Collection Time Re ceived Time Location / / Volume Laterality Blood 07/28/2016 7:47 AM NCA CERTIFIED CONCIERGE Abbi Caraballo D.O. LAB BLOOD ADD-ON Performing Organization Address City/State/ZIP Code Phon e Number POWERCHART Lipase (07/28/2016 7:47 AM NCA CERTIFIED CONCIERGE) P athologist Signature Lipase, S 42 13 - 60 UL POWERCHART Comment: Reference ranges have not been established for patients that are less than 16 years of age Specimen (Source) Anatomical Collection Method Collection Time Re ceived Time Location / / Volume Laterality Blood 07/28/2016 7:47 AM NCA CERTIFIED CONCIERGE Abbi Caraballo D.O. LAB BLOOD ADD-ON Performing Organization Address City/State/ZIP Code Phon e Number POWERCHART documented in this encounter Visit Diagnoses Not on filedocumented in this encounter
--- OUTSIDE RECORDS SUMMARY | 2022-04-12 08:14 | XMS_ITS | Encounter Summary ---
:1995 Author Organization [facility] Address [address] [place] [address] Care Team Providers Name Role Phone Unavailable Primary Care Provider Unavailable Encounter Details Date Type Department Care Team Description 06/09/2016 Hospital Encounter HX [facility] Madhav Due[facility]as [facility], M.D. [address] [place], [place] [phone] (Wo rk) Social History Tobacco Use Types [...] 03/20/2022 relatives? How often do you attend buddhist or hindu services? Never 03/20/2022 Do you belong to any clubs or organizations such as No 03/20/2022 buddhist groups, unions, fraternal or athletic groups, or [...] Sign Reading Time Taken Comments Blood Pressure 124/80 06/09/2016 8:40 PM NUT PROCESSING SUPERVISOR Pulse 84 06/09/2016 8:40 PM NUT PROCESSING SUPERVISOR Temperature - - Respiratory Rate 20 06/09/2016 8:40 PM NUT PROCESSING SUPERVISOR Oxygen Saturation - - Inhaled Oxygen Concentration - - Weight 68.9 kg (151 lb 14.4 oz) 06/09/2016 6:35 PM NUT PROCESSING SUPERVISOR Height - - Body Mass Index 25.93 05/17/2016 4:17 PM NUT PROCESSING SUPERVISOR documented in this encounter Discharge Summaries Clau Leon R.N. - 06/09/2016 8:50 PM CST ED Discharge Instructions [address] [address] Name: NAZ RICARDO Date of : 1995 12:00 PM Visit Date: 06/09/2016 6:28 PM [facility] Number: [id number] Address: [address] [place] [phone] Primary Care Provider: KALEE MORENO MD IMPORTANT: [facility] in [place] would like to thank you for allowing us to assistyou with your healthcare needs. The following includes patient education materials and information regarding your injury/illness. Diagnosis: Pain Back NOS; Polycythemia Secondary Follow-Up Instructions: With: Address: When: KALEE MORENO [address] [place] [phone] Business (1) Within As Needed Your Upcoming Appointments: Date Time Location Provider No Appointments found Patient Education Materials: Back Pain [Acute Or Chronic] Back pain is usually caused by an injury to the muscles or ligaments of the spine. Sometimes the disks that separate each bone in the spine may bulge and cause pain by pressing on a nearby nerve. Back pain may also appear after a sudden twisting/bending force (such as in a car accident), after a simple awkward movement, or lifting something heavy with poor body positioning. In either case, muscle spasm is often present and adds to the pain. Acute back pain usually gets better in one to two weeks. Back pain related to disk disease, arthritis in the spinal joints or spinal stenosis (narrowing of the spinal canal) can become chronic and lastfor months or years. Unless you had a physical injury (for example, a car accident or fall) X-rays are usually not ordered for the initial evaluation of back pain. If pain continues and does not respond to medical treatment, x-rays and other tests may be performed at a later time. Home Care: You may need to stay in bed the first few days. But, as soon as possible, begin sitting or walking to avoid problems with prolonged bed rest (muscle weakness, worsening back stiffness and pain, blood clots in the legs). When in bed, try to find a position of comfort. A firm mattress is best. Try lying flat on your backwith pillows under your knees. You can also try lying on your side with your knees bent up towards your chest and a pillow between your knees. Avoid prolonged sitting. This puts more stress on the lower back than standing or walking. During the first two days after injury, apply an ICE PACK to the painful area for 20 minutes every 2-4 hours. This will reduce swelling and pain. HEAT (hot shower, hot bath or heating pad) works well for muscle spasm. You can start with ice, then switch to heat after two days. Some patients feel best alternating ice and heat treatments. Use the one method that feels the best to you. You may use acetaminophen (Tylenol) or ibuprofen (Motrin, Advil) to control pain, unless another pain medicine was prescribed. [NOTE: If you have chronic liver or kidney disease or ever had a stomach ulcer or GI bleeding, talk with your doctor before using these medicines.] Be aware of safe lifting methods and do not lift anything over 15 pounds until all the pain is gone. Follow Up with your doctor or this facility if your symptoms do not start to improve after one week. Physical therapy may be needed. [NOTE: If X-rays were taken, they will be reviewed by a radiologist. You will be notified of any newfindings that may affect your care.] Get Prompt Medical Attention if any of the following occur: ?? Pain becomes worse or spreads to your legs ?? Weakness or numbness in one or both legs ?? Loss of bowel or bladder control ?? Numbness in the groin or genital area ?? [phone] Moises Weiss, [address] [place] [address], [place] [address]. All rights reserved. This information is not [...] if you dont have one. Go to [email or web address] and click on Create Your Account. Then, follow the directions to complete the online form. Youll be asked for your [facility] number which you can find at the top of this document. ED Tests and Procedures: Order Status CBC (includes Auto Differential) Completed Basic Metabolic Panel Completed DDimer Completed Urinalysis with Culture if Indicated Completed Automated Diff-5 Part Completed Discharge Prescriptions & Home Medications: Medication/Strength Dose Route Frequency Indications/Special Instructions/Comments/Notes cyclobenzaprine (Flexeril 10 mg oral tablet) 10 mg Oral three times a day as needed for Muscle spasm Misc Prescription (Misc Prescription) Rizatriptanenzoate 5 mg q 2 hrs topiramate (topiramate 25 mg oral tablet) 25 mg Oral once a day Misc Prescription (Trazapam 15 mg) i po daily for sleep Misc Prescription (Misc Prescription) See Instructions testoterone--80 mg IM per week--(has been taking past 8 months) Attention: If you have any medications at [...] will be determined by the receiving facility. 4If you are a patient that is being discharged from the Emergency Department after receiving narcotics or other medications that may impair your judgment you may be a risk to yourself or others if you operate a motor vehicle. We recommend that you arrange a ride home with a responsible alliance party. DAVION Domingo KALLIE MARIE , or responsible alliance party have received this information and my [...] arrange a ride home with a responsible alliance party. I, NAZ RICARDO , or responsible alliance party have received this information and my questions have been answered. I have discussed any challenges I see with this plan with the nurse or physician. Patient Signature or Responsible Republican/Relationship Date Time Provider Signature Date Time This document has images extracted. Please consider using [employer] for all your patient education needs. Source: [facility] POWERCHART Document Id: [id number] PROCESSING SUPERVISOR Clau Leon R.N. - 06/09/2016 8:50 PM CST ED Depart Summary [facility] Emergency Department Clinical Discharge Summary PERSON INFORMATION Name NAZ RICARDO Age 21 Years 1995 12:00 PM Sex Female Language Botswanan PCP KALEE MORENO MD Marital Status Single Visit Id Visit Reason Back pain; headache, numbness in arms/fingers Specialty Enc Type Emergency Med Service Emergency Medicine Referred by Track Group MAQN ED Discharge 06/09/2016 8:42 PM Tracking Id [id number] Checkout 06/09/2016 8:42 PM Checkin 06/09/2016 6:28 PM Acuity 4 -Less Urgent Dispo Type * Discharged to Home or Self Care Arrival 06/09/2016 6:28 PM Reg Status LOS 000 02:14 Address: [address] [place] [phone] Comment: PROVIDER INFORMATION Provider Role Provider Contact Time DWAYNE LLAMAS RN ED Nurse 06/09/16 18:47 DOUG GROSS MD ED Provider 06/09/16 18:53 MADHAV BROWN MD ED Provider 06/09/16 19:23 DIAGNOSIS Pain Back NOS; Polycythemia Secondary Comment: PATIENT EDUCATION INFORMATION Instructions: BACK PAIN (Acute or Chronic) Follow up: With: Address: When: KALEE MORENO [address] [place] [address] [phone] Business (1) Within As Needed Source: [facility] POWERCHART Document Id: [id number] PROCESSING SUPERVISOR documented in this encounter Medications at Time [...] encounter ED Notes Clau Leon R.N. - 06/09/2016 8:42 PM CST ED Disposition Summary ED Disposition Summary Entered On: 06/09/2016 20:50 NUT PROCESSING SUPERVISOR Performed On: 06/09/2016 20:42 NUT PROCESSING SUPERVISOR by CLAU LEON ANIMAL LABORATORY HELPER Disposition Summary Present in Room During Exam/Procedure : Alone Mode of Discharge : Ambulatory Transportation : Private vehicle Printed Discharge Instructions Given to Patient : Yes Patient Status at Discharge from ED : Improved CLAU LEON RN - 06/09/2016 20:49 NUT PROCESSING SUPERVISOR Source: [facility] POWERCHART Document Id: [id number] NUT PROCESSING SUPERVISOR!7 PROCESSING SUPERVISOR Madhav Brown M.D. - 06/09/2016 8:30 PM CST Back pain Patient: NAZ RICARDO Age: 21 years Sex: Female : 1995 Author: MADHAV BROWN MD Attachments: None Associated Diagnosis: Pain Back NOS; Polycythemia Secondary Basic Information Time seen: Immediately upon arrival. History source: Patient. Arrival mode: Private vehicle. History limitation: None. Additional information: Chief Complaint from Nursing Triage Note : Chief Complaint Description 06/09/2016 18:35 NUT PROCESSING SUPERVISOR Chief Complaint Description 21 y/o f presents with varying complaints and concerns over several weeks. Pt main c/o today is mid back vanesa describes as throbbing and is a 6. Pt denies any injury and pain comes and goes and goes to various places. Took advil 400 1 hour ago. . History of Present Illness Patient presented for evaluation of back pain without known injury. However it turns out there is a catalog of other complaints which are highlighted in the review of systems. Has been taking Tylenol for the back pain without much relief. The patient presents with back pain. The onset was 3 days ago. The course/duration of symptoms is fluctuating in intensity. Type of injury: none. The location where the incident occurred was at home. Location: Thoracic lumbar. Radiating pain: none. The character of symptoms is achy. The degree at onset was moderate. The degree at present is moderate. The exacerbating factor is bending over. The relieving factor is none. Risk factors consist of none. Prior episodes: none. Therapy today: none. Review of Systems Constitutional symptoms: Negative except as documented in HPI. Skin symptoms: Negative except as documented in HPI. Respiratory symptoms: The patient complains of intermittent sensation of inability to catch the breath.. Genitourinary symptoms: Patient is a female to male transgender patient on testosterone therapy. Levels were done 3 weeks ago and were in excess of a 1000. There has been a decrease in the dose. They are going to do more levels in another month or so.. Neurologic symptoms: Patient has multiple neurologic complaints including intermittent paresthesias of the left arm, difficulty concentrating and memory issues. These have been intermittent over several weeks. Additionally, she has been talking to a friend who said that she had the same symptoms that turned out to be a brain tumor, so he is worried about that.. Health Status Allergies: Allergic Reactions (Selected) NKA. 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 Surgical history: No active procedure history items have been selected or recorded.. Family history: No family history items have been selected or recorded.. Physical Examination Vital Signs: Vital Signs 06/09/2016 19:40 NUT PROCESSING SUPERVISOR Temperature Core 37.2 DegC Peripheral Pulse Rate 76 /min Respiratory Rate 18 /min SpO2 99 % Systolic Blood Pressure 134 mmHg Diastolic Blood Pressure 87 mmHg BP Location Left upper 06/09/2016 18:35 NUT PROCESSING SUPERVISOR Temperature Core 37.4 DegC Peripheral Pulse Rate 115 /min HI Respiratory Rate 18 /min SpO2 99 % Systolic Blood Pressure 155 mmHg HI Diastolic Blood Pressure 98 mmHg >HHI Mean Arterial Pressure 117 mmHg , Measurements 06/09/2016 18:35 NUT PROCESSING SUPERVISOR Dosing Weight 68.90 kg Actual Weight 68.9 kg Weight Source Standing scale , SpO2 06/09/2016 19:40 NUT PROCESSING SUPERVISOR SpO2 99 % 06/09/2016 18:35 NUT PROCESSING SUPERVISOR SpO2 99 % . General: Alert and no acute distress. Skin: Warm, dry, pink and intact. Head: Normocephalic and atraumatic. Neck: Supple. Ears, nose, mouth and throat: Oral mucosa moist. Cardiovascular: Regular rate and rhythm, Normal peripheral perfusion and Heart rate was 88 at the time of my examination.. Respiratory: Lungs are clear to auscultation and respirations are non-labored. Back: Normal range of motion, Mild diffuse tenderness near the thoracolumbar junction. No bony tenderness of the spines. Range of motion is good. and Testing: Straight leg raising, sitting/distracted negative. Neurological: Alert and oriented to person, place, time, and situation, No focal neurological deficit observed, CN II-XII intact, normal sensory observed, normal motor observed, normal speech observed and normal coordination observed. Psychiatric: Cooperative. Medical Decision Making Results review:Lab results : Lab View 06/09/2016 19:32 NUT PROCESSING SUPERVISOR Hgb 16.2 g/dL HI Hct 48.3 % HI WBC 6.9 x10(9)/L RBC 5.50 x10(12)/L HI MCV 87.8 fL RDW 13.0 % Platelet 248 x10(9)/L Neutro Absolute 3.83 10(9)/L Lymph Absolute 2.25 x10(9)/L Lake Absolute 0.76 x10(9)/L Eos Absolute 0.06 x10(9)/L Baso Absolute 0.03 x10(9)/L Differential? Auto D-Dimer <0.28 mcg/mL FEU Sodium Lvl 137 mmol/L Potassium Lvl 3.9 mmol/L Chloride 100 mmol/L CO2 22 mmol/L AGAP 15 mmol/L Glucose Lvl 100 mg/dL Creatinine 1.4 mg/dL HI EGFR (MDRD) 47.0 mL/min/SA LOW EGFR (MDRD) 57.0 mL/min/SA LOW BUN 14 mg/dL Calcium Lvl 9.1 mg/dL 06/09/2016 19:05 NUT PROCESSING SUPERVISOR UA Color Yellow UA Clarity Clear UA Spec Grav 1.010 UA pH 5.5 UA Protein Negative mg/dL UA Glucose Negative mg/dL UA Ketones Negative mg/dL UA Bili Negative UA Urobilinogen 0.2 mg/dL UA Blood Negative UA Nitrite Negative UA Leuk Est Negative UR WBC Occ-3 /HPF UR RBC None Seen /HPF UR Squamous Epi Cells Occ-3 /HPF . Notes:We gave naproxen for the back pain and it helped. This can be done at home as well. Laboratorystudies were reviewed. There has been a rise in creatinine since last checked. This may be a result of hormonal therapy and increase in muscle mass. Nevertheless, it should be rechecked in the future. Additionally, he is polycythemic. This is almost certainly an effect of HRT as the trend line bears out. Testosterone therapy was started in March of 2015. I cannot explain all the patient's symptoms. He appears to be in no distress, has a normal neurologic exam in decent vital signs. Some of the symptoms may map back to the testosterone. Specifically, the polycythemia the difficulty concentrating and possibly the paresthesias. I would recommend doing nothing further prior to the next level. If still elevated, they will need to back up the dose. I have reminded the patient that supratherapeutic testosterone levels do not enhance transition. In the meantime he should drink plenty of water which may mitigate the symptoms to some extent. Overall, he looks clinically well and is stable for discharge in my clinical judgment. Follow up with primary physician in 1-2 weeks if not improving.. Impression and Plan Diagnosis Pain Back NOS (Discharge, Emergency medicine, Medical) Polycythemia Secondary (Discharge, Emergency medicine, Medical) Plan Condition: Stable. Disposition: Discharged: Time 06/09/2016 20:32:00, to home. Prescriptions: Prescription Medical Staff Credentialing Coordinator Pharmacy: Flexeril 10 mg oral tablet (Prescribe): 10 mg, 1 tab(s), PO, 3xDay, for 5 day(s), PRN: Muscle spasm,15 tab(s), 0 Refill(s). Patient was given the following educational materials: BACK PAIN (Acute or Chronic). Follow up with: KALEE MORENO Within As Needed. Counseled: Patient. Electronically Signed By: MADHAV BROWN MD On: 06/09/2016 09:30 PM Modified by and Electronically Signed by: MADHAV BROWN MD On: 06/09/2016 09:30 PM Source: [facility] POWERCHART Document Id: [id number] PROCESSING SUPERVISOR Clau Leon R.N. - 06/09/2016 8:15 PM CST ED Nurse Reassess ED Nurse Reassess Entered On: 06/09/2016 20:49 NUT PROCESSING SUPERVISOR Performed On: 06/09/2016 20:15 NUT PROCESSING SUPERVISOR by CLAU LEON RN Pain Assessment Pain Symptoms : Yes CLAU LEON RN - 06/09/2016 20:48 NUT PROCESSING SUPERVISOR Pain Scale Pain Scale Verbal 0-10 : Open CLAU LEON RN - 06/09/2016 20:48 NUT PROCESSING SUPERVISOR Pain Pain Assessment Grid Pain 1 Location : Upper back Intensity : 5 CLAU LEON RN - 06/09/2016 20:48 NUT PROCESSING SUPERVISOR Musculoskeletal Reassess Musculoskeletal Note : states he is unable to tell if any change in pain since med was given, waiting for lab results CLAU LEON RN - 06/09/2016 20:48 NUT PROCESSING SUPERVISOR Source: [employer] Document Id: [id number] NUT PROCESSING SUPERVISOR!12 PROCESSING SUPERVISOR Dwayne Llamas R.N. - 06/09/2016 7:14 PM CST ED Nurse Reassess ED Nurse Reassess Entered On: 06/09/2016 19:15 NUT PROCESSING SUPERVISOR Performed On: 06/09/2016 19:14 NUT PROCESSING SUPERVISOR by DWAYNE LLAMAS RN Pain Assessment Pain Symptoms : Yes DWAYNE LLAMAS RN - 06/09/2016 19:14 NUT PROCESSING SUPERVISOR Comfort Measures Patient Response : MD to see, await orders. DWAYNE LLAMAS RN - 06/09/2016 19:14 NUT PROCESSING SUPERVISOR Source: [employer] Document Id: [id number] NUT PROCESSING SUPERVISOR!5 PROCESSING SUPERVISOR Dwayne Llamas R.N. - 06/09/2016 7:06 PM CST ED Nurse Reassess ED Nurse Reassess Entered On: 06/09/2016 19:06 NUT PROCESSING SUPERVISOR Performed On: 06/09/2016 19:06 NUT PROCESSING SUPERVISOR by DWAYNE LLAMAS RN Pain Assessment Pain Symptoms : Yes DWAYNE LLAMAS RN - 06/09/2016 19:06 NUT PROCESSING SUPERVISOR Comfort Measures Comfort Measures Grid [place] Application : Yes Comfortable Environment : Yes Quiet Environment : Yes DWAYNE LLAMAS RN - 06/09/2016 19:06 NUT PROCESSING SUPERVISOR Patient Response : MD to see briefly in the sampson, U/A pending, pt resting. DWAYNE LLAMAS RN - 06/09/2016 19:06 NUT PROCESSING SUPERVISOR Source: [facility] VisualOnCHART Document Id: [id number] NUT PROCESSING SUPERVISOR!9 PROCESSING SUPERVISOR Dwayne Llamas R.N. - 06/09/2016 6:35 PM CST ED Primary Assessment Document Has Been Updated ED Primary Assessment Entered On: 06/09/2016 18:44 NUT PROCESSING SUPERVISOR Performed On: 06/09/2016 18:35 NUT PROCESSING SUPERVISOR by DWAYNE LLAMAS RN Reason For Visit (As Of: 06/09/2016 18:44:34 NUT PROCESSING SUPERVISOR) Problems(Active) Dysphoria Gender Adolescent Or Adult (ICD-10-CM :F64.1 ) Name of Problem: Dysphoria Gender Adolescent Or Adult ; Recorder: DOUG GROSS MD; Confirmation: Confirmed ; Classification: Medical ; Code: F64.1 ; Contributor System: When You Wish ; Last Updated: 08/02/2015 3:41 NUT PROCESSING SUPERVISOR ; Life Cycle Date: 2015 ; Life Cycle Status: Active ; Vocabulary: ICD-10-CM Migraine Headache (WHITE) NOS (ICD-10-CM :G43.909 ) Name of Problem: Migraine Headache (WHITE) NOS ; Recorder: DOUG GROSS MD; Confirmation: Confirmed ; Classification: Medical ; Code: G43.909 ; Contributor System: When You Wish ; Last Updated: 08/02/2015 3:41 NUT PROCESSING SUPERVISOR ; Life Cycle Date: 08/02/2015 ; Life Cycle Status: Active ; Vocabulary: ICD-10-CM Diagnoses(Active) Back pain Date: 06/09/2016 ; Diagnosis Type: Reason For Visit ; Confirmation: Complaint of ; Clinical Dx: Back pain ; Classification: Medical ; Clinical Service: Emergency medicine ; Code: PNED ; Probability: 0 ; Diagnosis Code: [id number] Triage Chief Complaint Description : 21 y/o f presents with varying complaints and concerns over several weeks. Pt main c/o today is mid back vanesa describes as throbbing and is a 6. Pt denies any injury and pain comes and goes and goes to various places. Took advil 400 1 hour ago. Information Given By : Patient Present in Room During Exam/Procedure : Alone Mode of Arrival ED : Private vehicle Track : Medical Languages : Botswanan Vital Signs Assessed : Yes Treatments Prior to Arrival : Home treatments, Ibuprofen Are you ? : No Is Patient Female and 13-50 no hysterectomy : Yes Status : Patient denies DWAYNE LLAMAS RN - 06/09/2016 18:35 NUT PROCESSING SUPERVISOR Vital Signs Temperature Core : 37.4 DegC(Converted to: 99.3 DegF) Peripheral Pulse Rate : 115 /min (HI) Respiratory Rate : 18 /min Systolic Blood Pressure : 155 mmHg (HI) Diastolic Blood Pressure : 98 mmHg (>HHI) NIBP Mean : 117 mmHg SpO2 : 99 % Actual Weight : 68.9 kg Actual Weight Conversion to Pounds : 151.58 lb Weight Source : Standing scale DWAYNE LLAMAS RN - 06/09/2016 18:35 NUT PROCESSING SUPERVISOR Pain Assessment Pain Symptoms : Yes DWAYNE LLAMAS RN - 06/09/2016 18:35 NUT PROCESSING SUPERVISOR Pain Scale Pain Scale Verbal 0-10 : Open DWAYNE LLAMAS RN - 06/09/2016 18:35 NUT PROCESSING SUPERVISOR Pain Pain Assessment Grid Pain 1 Location : Upper back Intensity : 6 Quality : Throbbing Aggravating Factors : None Alleviating Factors : None DWAYNE LLAMAS RN - 06/09/2016 18:35 NUT PROCESSING SUPERVISOR Comfort Measures Comfort Measures Grid Comfortable Environment : Yes Quiet Environment : Yes DWAYNE LLAMAS RN - 06/09/2016 18:35 NUT PROCESSING SUPERVISOR ED Physician Notification Time ED Physician Notification Time : 06/09/2016 18:42 NUT PROCESSING SUPERVISOR DWAYNE LLAMAS RN - 06/09/2016 18:35 NUT PROCESSING SUPERVISOR ANA ANA Level 1 : No ANA Level 2 : No ANA Level 3 : One DWAYNE LLAMAS RN - 06/09/2016 18:35 NUT PROCESSING SUPERVISOR DCP GENERIC CODE Tracking Acuity : 4 -Less Urgent Tracking Group : MAQN ED DWAYNE LLAMAS RN - 06/09/2016 18:35 NUT PROCESSING SUPERVISOR Allergy (As Of: 06/09/2016 18:44:34 NUT PROCESSING SUPERVISOR) Allergies (Active) NKA Estimated Onset Date: Unspecified ; Created By: ERIC LOPEZ RN; Reaction Status: Active ; Substance: NKA ; Type: Allergy ; Updated By: ERIC LOPEZ RN; Reviewed Date: 06/09/2016 18:42 NUT PROCESSING SUPERVISOR ID Screen Drug Resistant Organism : No DWAYNE LLAMAS RN - 06/09/2016 18:35 NUT PROCESSING SUPERVISOR TB Symptoms Grid Bloody Sputum : No Fatigue : No Fever : No Loss of Appetite : No Night Sweats : No Persistent Cough Greater Than 3 Weeks : No Weight Loss : No DWAYNE LLAMAS RN - 06/09/2016 18:35 NUT PROCESSING SUPERVISOR Immunizations Immunizations Current : Yes Last Tetanus : Unknown Influenza : None DWAYNE LLAMAS RN - 06/09/2016 18:35 NUT PROCESSING SUPERVISOR Respiratory Airway : Patent Respirations : Unlabored Respiratory Pattern : Regular DWAYNE LLAMAS RN - 06/09/2016 18:35 NUT PROCESSING SUPERVISOR Cardiovascular Heart Rhythm : Regular Skin Color : Force Skin Description : Normal Skin Temperature : Warm DWAYNE LLAMAS RN - 06/09/2016 18:35 NUT PROCESSING SUPERVISOR Neurological Last Well Time Known : Not applicable Level of Consciousness : Alert Orientation : Oriented x 3 Characteristics of Speech : Clear DWYANE LLAMAS RN - 06/09/2016 18:35 NUT PROCESSING SUPERVISOR ED Psychosocial Affect/Behavior : Calm Domestic Abuse Concerns : None Behavioral Health Screen/Safety Assmt : No DWAYNE LLAMAS RN - 06/09/2016 18:35 NUT PROCESSING SUPERVISOR Gastrointestinal Nutrition ED : Adequate DWAYNE LLAMAS RN - 06/09/2016 18:35 NUT PROCESSING SUPERVISOR Musculoskeletal Fall Prevention Education Provided : DWAYNE RIDER RN - 06/09/2016 18:35 NUT PROCESSING SUPERVISOR Social Habits Exposure to Tobacco Smoke : Patient smokes Smoking Status : Current every day smoker Tobacco 2A : Yes Tobacco Use/Currently Using : Yes Tobacco Use/Last 30 Days : Yes Tobacco Use/Last 12 months : Yes Type : Other: 1 pack a week DWAYNE LLAMAS RN - 06/09/2016 18:35 NUT PROCESSING SUPERVISOR Alcohol Use Grid Alcohol Use : Yes Frequency : Weekly DWAYNE LLAMAS RN - 06/09/2016 18:35 NUT PROCESSING SUPERVISOR Recreational Drug Use Grid Drug Use : None DWAYNE LLAMAS RN - 06/09/2016 18:35 NUT PROCESSING SUPERVISOR [facility] Document Id: [id number] NUT PROCESSING SUPERVISOR!100 PROCESSING SUPERVISOR documented in this encounter Miscellaneous Notes Miscellaneous - Clau Leon R.N. - 06/09/2016 8:42 PM CST Valuables/Belongings Valuables/Belongings Entered On: 06/09/2016 20:50 NUT PROCESSING SUPERVISOR Performed On: 06/09/2016 20:42 NUT PROCESSING SUPERVISOR by CLAU LEON RN Valuables/Belongings Room Orientation/Facility Policy Reviewed : Yes Home Medication Disposition : None brought in with patient CLAU LEON RN - 06/09/2016 20:50 NUT PROCESSING SUPERVISOR [facility] Document Id: [id number] NUT PROCESSING SUPERVISOR!4 PROCESSING SUPERVISOR Miscellaneous - Conversion, Historical Provider Ser - 06/09/2016 8:42 PM NUT PROCESSING SUPERVISOR Coding Summary-Paper Based CODING DATE: 06/18/2016 FINAL [facility] STATUS: * Discharged to Home or Self Care PAYOR: [employer] ADMIT DX: M54.6 Pain in thoracic spine REASON FOR VISIT DX: M54.6 Pain in thoracic spine FINAL DX: PRINCIPAL: M54.6 Pain in thoracic spine SECONDARY: D75.1 Secondary polycythemia F17.200 Nicotine dependence, unspecified, uncomplicated PROCEDURES DOCTOR NAME DATE NOTE: The code number assigned matches the documented diagnosis and / or procedure in the patient's chart. However, the narrative phrase printed from the coding software may appear abbreviated, or result in slightly different terminology. Coded By: MARC MARTÍNEZ Date Saved: 06/18/2016 10:38 am Source: [employer] Document Id: [id number] Miscellaneous - Clau Leon, R.N. - 06/09/2016 6:28 PM CST Facility Charge Ticket 2.0 11.0 DX Facility Charge Ticket 2.0 11.0 DX Entered On: 06/09/2016 20:50 NUT PROCESSING SUPERVISOR Performed On: 06/09/2016 18:28 NUT PROCESSING SUPERVISOR by CLAU LEON RN Facility Charge Ticket 2.0 11.0 DX ED Other Charges : Standard ED Encounter TVL Level Translated RTF : Back pain TVL:3 TVL Level for Facility Charge Ticket : Level 3 Arrival Mode Calc : 129 Mode of Arrival ED : Private vehicle [facility] Mode of Arrival Interpreted : Standard [facility] Process Management : None Order Management RTF : Laboratory Urinalysis with Culture if Indicated,06/09/16 19:06,DOUG GROSS MD Completed CBC (includes Auto Differential),06/09/16 19:21,MADHAV BROWN MD Completed Basic Metabolic Panel,06/09/16 19:21,MADHAV BROWN MD Completed DDimer,06/09/16 19:21,MADHAV BROWN MD Completed Automated Diff-5 Part,06/09/16 19:34,MADHAV BROWN MD Completed [facility] Order Management : Lab tests 30 Minutes Critical Care : No Nursing Notes RTF : Nursing Notes ED Primary Assessment,06/09/16 18:35,DWAYNE LLAMAS ANIMAL LABORATORY HELPER Nurse Reassess,06/09/16 20:15,CLAU LEON ANIMAL LABORATORY HELPER Nurse Reassess,06/09/16 19:14,DWAYNE LLAMAS ANIMAL LABORATORY HELPER Nurse Reassess,06/09/16 19:06,DWAYNE LLAMAS RN [facility] Nursing Assessment : Triage and 1-2 nursing assessments [facility] Disposition : Discharge Disposition RTF : discharge [facility] Total Points with Diagnosis Control : 6 [facility] Visit Level : 48904 Level 3 Treatments Prior to Arrival : Home treatments, Ibuprofen CLAU LEON RN - 06/09/2016 20:50 NUT PROCESSING SUPERVISOR Source: [facility] [employer] Document Id: [id number] NUT PROCESSING SUPERVISOR!19 PROCESSING SUPERVISOR documented in this encounter Plan of Treatment Upcoming Encounters Date Type Specialty Care Team Description 05/23/2022 Telemedicine Endocrinology Arely Bond M.B., B.Ch. [address] [place] [address] [phone] (Wo rk) documented as of this encounter Procedures Procedure Name Priority Date/Time Associated Diagnosis Comme nts AUTOMATED Routine 06/09/2016 7:32 PM Results f or this DIFFERENTIAL, B NUT PROCESSING SUPERVISOR procedure ar e in the results section. D-DIMER, P Routine 06/09/2016 7:32 PM Results f or this NUT PROCESSING SUPERVISOR procedure are i n the results section. CBC WITH Routine 06/09/2016 7:32 PM Results f or this DIFFERENTIAL, B NUT PROCESSING SUPERVISOR procedure ar e in the results section. BASIC METABOLIC Routine 06/09/2016 7:32 PM Result s for this PANEL, S/P NUT PROCESSING SUPERVISOR procedure are i n the results section. URINALYSIS, Routine 06/09/2016 7:05 PM Results f or this MIDSTREAM, WITH NUT PROCESSING SUPERVISOR procedure ar e in CULTURE IF the results INDICATED section. documented in this encounter Results Automated Differential (06/09/2016 7:32 PM NUT PROCESSING SUPERVISOR) athologist Signature Absolute 3.83 1.70 - POWERCHART Neutrophils 7.00 109L Lymphocytes 2.25 0.90 - POWERCHART 2.90 X109L Monocytes 0.76 0.30 - POWERCHART 0.90 X109L Eosinophils 0.06 0.05 - POWERCHART 0.50 X109L Absolute 0.03 0.00 - POWERCHART Basophil 0.30 X109L Specimen Anatomical Collection Method Collection Time Receive d Time (Source) Location / / Volume Laterality Blood 06/09/2016 7:32 PM 6 7:32 NUT PROCESSING SUPERVISOR PM NUT PROCESSING SUPERVISOR Madhav Brown M.D. LAB BLOOD ADD-ON Performing Organization Address City/State/ZIP Code Phon e Number POWERCHART D-Dimer (06/09/2016 7:32 PM NUT PROCESSING SUPERVISOR) athologist Signature D-Dimer, P <0.28 <=0.49 POWERCHART MCGMLFEU Specimen (Source) Anatomical Collection Method Collection Time Re ceived Time Location / / Volume Laterality Blood 06/09/2016 7:32 PM NUT PROCESSING SUPERVISOR Madhav Brown M.D. LAB BLOOD ADD-ON Performing Organization Address City/State/ZIP Code Phon e Number POWERCHART (ABNORMAL) CBC with Differential (06/09/2016 7:32 PM NUT PROCESSING SUPERVISOR) [facility] gist Method Time Signature Leukocytes 6.9 3.5 - 10.5 POWERCHART X109L Erythrocytes 5.50 (H) 3.90 - POWERCHART 5.03 F0331P Hemoglobin 16.2 (H) 12.0 - POWERCHART 15.5 GDL Hematocrit 48.3 (H) 34.9 - POWERCHART 44.5 MCV 87.8 81.6 - POWERCHART 98.3 FL HX RDW 13.0 11.9 - POWERCHART 15.5 Platelet Count 248 150 - 450 POWERCHART X109L HXDifferential? Auto POWERCHART Specimen (Source) Anatomical Collection Method Collection Time Re ceived Time Location / / Volume Laterality Blood 06/09/2016 7:32 PM NUT PROCESSING SUPERVISOR Madhav Brown M.D. LAB BLOOD ADD-ON Performing Organization Address City/State/ZIP Code Phon e Number POWERCHART (ABNORMAL) BMP (Basic Metabolic Panel) (06/09/2016 7:32 PM NUT PROCESSING SUPERVISOR) [facility] [place] Method Time Signature Sodium, S 137 135 - 145 POWERCHART MMOLL Potassium, S 3.9 3.5 - 5.1 POWERCHART MMOLL Chloride, S 100 98 - 107 POWERCHART MMOLL CO2 Total 22 22 - 29 POWERCHART MMOLL BUN (Blood Urea 14 6 - 24 MGDL POWERCHART Nitrogen), S Creatinine 1.4 (H) 0.6 - 1.1 POWERCHART MGDL Calcium, Total, 9.1 8.6 - 10.3 POWERCHART S MGDL Anion Gap 15 7 - 15 POWERCHART MMOLL HXeGFR (MDRD) 47.0 (L) >=60.0 POWERCHART MLMINSA eGFR 57.0 (L) >=60.0 POWERCHART Black/ MLMINSA [place] Glucose 100 70 - 140 POWERCHART MGDL Specimen (Source) Anatomical Collection Method Collection Time Re ceived Time Location / / Volume Laterality Blood 06/09/2016 7:32 PM NUT PROCESSING SUPERVISOR Madhav Brown M.D. LAB BLOOD ADD-ON Performing Organization Address City/State/ZIP Code Phon e Number POWERCHART (ABNORMAL) Urinalysis, Midstream, with culture if indicated (06/09/2016 7:05 PM NUT PROCESSING SUPERVISOR) [facility] [place] Method Time Signature HXUr Color Yellow Colorless POWERCHART Clarity Clear Clear POWERCHART Glucose Negative Negative MGDL POWERCHART HXBILIRUBIN Negative Negative POWERCHART Ketones, QL(U) Negative Negative MGDL POWERCHART Specific 1.010 POWERCHART [place], POCT, U Comment: Reference Range Specific [place]: 1.000-1.035 HXBLOOD Negative Negative POWERCHART pH, POCT, Urine 5.5 <5.0 POWERCHART Comment: Reference Range pH: 5.0-8.0 Protein, Ur, Dip Negative Negative MGDL POWERCHAR T Urobilinogen 0.2 0.2 MGDL POWERCHART Comment: Reference Range Urobilinogen: 0.2-1.0 mg/dL HXNITRITE Negative Negative POWERCHART Leukocyte Esterase Negative Negative POWERCHART HXUR WBC. Occ-3 None Seen HPF POWERCHART HXUR RBC. None Seen None Seen HPF POWERCHART Squamous Epithelial Occ-3 (A) None Seen HPF POWERC MEJIA Specimen (Source) Anatomical Collection Method Collection Time Re ceived Time Location / / Volume Laterality Urine, First 06/09/2016 7:05 PM Voided NUT PROCESSING SUPERVISOR Doug Gross M.D. LAB URINE ORDERABLES Performing Organization Address City/State/ZIP Code Phon e Number POWERCHART documented in this encounter Visit Diagnoses Not on filedocumented in this encounter
--- OUTSIDE RECORDS SUMMARY | 2022-04-12 08:14 | XMS_ITS | Encounter Summary ---
:1995 Author Organization [facility] Address [address] [place] [address] Care Team Providers Name Role Phone Unavailable Primary Care Provider Unavailable Encounter Details Date Type Department Care Team Description 07/05/2016 Hospital Encounter HX [facility] Efraín Londono M.D. [address] [place] [phone] (Wo rk) Social History Tobacco Use Types [...] often do you attend oriental orthodox or jewish services? Never 03/20/2022 Do you [...] Apply topically. 0 201612/01/2019 ointment Misc Prescription Mis Prescription See 0 016 03/20/2022 [...] Miscellaneous - Conversion, Historical Provider Ser - 07/05/2016 11:59 PM CINDER BLOCK MASON Coding Summary-Paper Based CODING DATE: 07/08/2016 FINAL [facility] STATUS: * Discharged to Home or Self Care PAYOR: [employer] ADMIT DX: REASON FOR VISIT DX: FINAL DX: PRINCIPAL: R94.5 Abnormal results of liver function studies SECONDARY: PROCEDURES DOCTOR NAME DATE NOTE: The code number assigned matches the documented diagnosis and / or procedure in the patient's chart. However, the narrative phrase printed from the coding software may appear abbreviated, or result in slightly different terminology. Coded By: KALEE BROWN Date Saved: 07/08/2016 08:23 am Source: [employer] Document Id: [id number] Miscellaneous - Conversion, Historical Provider Ser - 07/05/2016 11:59 PM CINDER BLOCK MASON Coding Summary-Paper Based CODING DATE: 07/08/2016 FINAL [facility] STATUS: * Discharged to Home or Self Care PAYOR: [employer] ADMIT DX: REASON FOR VISIT DX: FINAL DX: PRINCIPAL: R94.5 Abnormal results of liver function studies SECONDARY: PROCEDURES DOCTOR NAME DATE NOTE: The code number assigned matches the documented diagnosis and / or procedure in the patient's chart. However, the narrative phrase printed from the coding software may appear abbreviated, or result in slightly different terminology. Coded By: KALEE BROWN Date Saved: 07/08/2016 08:23 am Source: [employer] Document Id: [id number] ER BLOCK MASON documented in this encounter Plan of Treatment Upcoming Encounters Date Type Specialty Care Team Description 05/23/2022 Telemedicine Endocrinology Arely Bond M.B., B.Ch. [address] [place] [address] [phone] (Wo rk) documented as of this encounter Procedures Procedure Name Priority Date/Time Associated Diagnosis Comme nts US ABDOMEN COMPLETE Routine 07/05/2016 1:30 PM Re sults for this CINDER BLOCK MASON procedure are i n the results section. documented in this encounter Results US Abdomen Complete (07/05/2016 1:30 PM CINDER BLOCK MASON) Anatomical Region Laterality Modality Abdomen N/A Ultrasound Specimen (Source) Anatomical Collection Method Collection Time Re ceived Time Location / / Volume Laterality 07/05/2016 1:30 PM CINDER BLOCK MASON Addenda Addendum by Provider, Historical, M.D. o n 07/05/2016 1:30 PM CINDER BLOCK MASON RAD^^^MA US Abdomen Complete 07/05/2016 13:30:00 Impressions 07/05/2016 3:01 PM CINDER BLOCK MASON Borderline increased hepatic echotexture, suggestive of borderline to mild diffuse hepatic steat osis. Narrative 07/05/2016 3:01 PM CINDER BLOCK MASON Comparison: None. FINDINGS: Borderline increased hepatic e chotexture as compared to the parenchymal echotexture of the kidney, s uggestive of borderline to mild diffuse hepatic steatosis. No focal hepatic lesion identified. Normal hepatopedal flow within the main portal vein. No biliary ductal dilatation. No calculi are evident in the gallbladde r. The gallbladder wall thickness is normal and there is no may cholecystic fluid. The extrahepatic biliary ductal system is no t dilated, and the common bile duct measures 2 mm. The pancreatic head and proximal body ar e imaged and are normal in size and texture. The distal pancreatic body and tail is obscured by overlying bowel gas. The right and left kidneys are imaged in normal anatomic location and are normal in size and parenchymal thick ness without hydronephrosis or evidence of calculous disease. The ri ght kidney measures 9.4 cm in sagittal dimension, and the left kidney measures 9.8 cm in sagittal dimension. The spleen is normal in size. No ascites is evident. The visualized portions of the IVC and a twyla appear normal. Procedure Note Pablo Chilel M.D. / Provider, His luis alfredo M.D. - 05/01/2017 Comparison: None. FINDINGS: Borderline increased hepatic e chotexture as compared to the parenchymal echotexture of the kidney, s uggestive of borderline to mild diffuse hepatic steatosis. No focal hepatic lesion identified. Normal hepatopedal flow within the main portal vein. No biliary ductal dilatation. No calculi are evident in the gallbladde r. The gallbladder wall thickness is normal and there is no may cholecystic fluid. The extrahepatic biliary ductal system is no t dilated, and the common bile duct measures 2 mm. The pancreatic head and proximal body ar e imaged and are normal in size and texture. The distal pancreatic body and tail is obscured by overlying bowel gas. The right and left kidneys are imaged in normal anatomic location and are normal in size and parenchymal thick ness without hydronephrosis or evidence of calculous disease. The ri ght kidney measures 9.4 cm in sagittal dimension, and the left kidney measures 9.8 cm in sagittal dimension. The spleen is normal in size. No ascites is evident. The visualized portions of the IVC and a twyla appear normal. IMPRESSION: Borderline increased hepatic echotexture, suggestive of borderline to mild diffuse hepatic steat osis. Ursula OKEEFE US PROCEDURES documented in this encounter Visit Diagnoses Not on filedocumented in this encounter
--- OUTSIDE RECORDS SUMMARY | 2022-04-12 08:14 | XMS_ITS | Encounter Summary ---
:1995 Author Organization [facility] Address [address] [place] [address] Care Team Providers Name Role Phone Unavailable Primary Care Provider Unavailable Encounter Details Date Type Department Care Team Description 09/06/2016 Hospital Encounter HX [facility] Naveed Katz M.D. [address] [place], [place] [phone] (Wo rk) Social History [...] 03/20/2022 relatives? How often do you attend protestant or yarsani services? Never 03/20/2022 Do you belong to any clubs or organizations such as No 03/20/2022 protestant groups, unions, fraternal or athletic groups, or [...] place to sleep or slept in a correction (including now)? Sex Assigned at Date Recorded Female 03/20/2022 7:54 AM CDT documented as of this encounter Last Filed Vital Signs Vital Sign Reading Time Taken Comments Blood Pressure - - Pulse - - Temperature - - Respiratory Rate - - Oxygen Saturation - - Inhaled Oxygen Concentration - - Weight - - Height 162 cm (5' 3.78) 09/06/2016 10:35 AM CDT Body Mass Index - - [...] (DESYREL) 100 Take 1 tablet by 0 04/28/ 2015 03/20/2022 mg tablet mouth at bedtime. documented as of this encounter Miscellaneous Notes Miscellaneous - Conversion, Historical Provider Ser - 09/06/2016 11:59 PM CDT Coding Summary-Paper Based CODING DATE: 09/09/2016 FINAL [facility] STATUS: * Discharged to Home or Self Care PAYOR: [employer] ADMIT DX: REASON FOR VISIT DX: FINAL DX: PRINCIPAL: R05 Cough SECONDARY: R06.02 Shortness of breath PROCEDURES DOCTOR NAME DATE NOTE: The code number assigned matches the documented diagnosis and / or procedure in the patient's chart. However, the narrative phrase printed from the coding software may appear abbreviated, or result in slightly different terminology. Coded By: KALEE BROWN Date Saved: 09/09/2016 11:02 am Source: [employer] Document Id: [id number] Miscellaneous - Conversion, Historical Provider Ser - 09/06/2016 11:59 PM CDT Coding Summary-Paper Based CODING DATE: 09/09/2016 FINAL [facility] STATUS: * Discharged to Home or Self Care PAYOR: [employer] ADMIT DX: REASON FOR VISIT DX: FINAL DX: PRINCIPAL: R05 Cough SECONDARY: R06.02 Shortness of breath PROCEDURES DOCTOR NAME DATE NOTE: The code number assigned matches the documented diagnosis and / or procedure in the patient's chart. However, the narrative phrase printed from the coding software may appear abbreviated, or result in slightly different terminology. Coded By: KALEE BROWN Date Saved: 09/09/2016 11:02 am Source: [employer] Document Id: [id number] PI ARCHITECT documented in this encounter Plan of Treatment Upcoming Encounters Date Type Specialty Care Team Description 05/23/2022 Telemedicine Endocrinology Arely Bond M.B., B.Ch. [address] [place], [place] [phone] (Wo rk) documented as of this encounter Visit Diagnoses Not on filedocumented in this encounter
--- OUTSIDE RECORDS SUMMARY | 2022-04-12 08:14 | XMS_ITS | Encounter Summary ---
:1995 Author Organization [facility] Address [address] [place] [address] Care Team Providers Name Role Phone Unavailable Primary Care Provider Unavailable Encounter Details Date Type Department Care Team Description 05/17/2016 Hospital Encounter HX [facility] Madhav Due[facility]as ED, M.D. [address] [place], [place] [phone] (Wo rk) Social History Tobacco Use Types [...] 03/20/2022 relatives? How often do you attend confucianism or restorationism services? Never 03/20/2022 Do you belong to any clubs or organizations such as No 03/20/2022 confucianism groups, unions, fraternal or athletic groups, or [...] Sign Reading Time Taken Comments Blood Pressure 117/74 05/17/2016 4:17 PM PROFESSOR OF PHYSICS Pulse 65 05/17/2016 4:17 PM PROFESSOR OF PHYSICS Temperature - - Respiratory Rate 12 05/17/2016 4:17 PM PROFESSOR OF PHYSICS Oxygen Saturation - - Inhaled Oxygen Concentration - - Weight - - Height 163 cm (5' 4.17) 05/17/2016 4:17 PM PROFESSOR OF PHYSICS Body Mass Index - - documented in this encounter Discharge Summaries Esperanza Puckett, R.N. - 05/17/2016 4:32 PM CST ED Depart Summary [facility] Emergency Department Clinical Discharge Summary PERSON INFORMATION Name NAZ CHAKRABORTY Age 21 Years 1995 12:00 PM Sex Female Language Namibian PCP KALEE MORENO MD Marital Status Single Visit Id Visit Reason Headache; headache Specialty Enc Type Emergency Med Service Emergency Medicine Referred by Track Group MAQN ED Discharge 05/17/2016 4:32 PM Tracking Id [id number] Checkout 05/17/2016 4:32 PM Checkin 05/17/2016 1:39 PM Acuity 4 -Less Urgent Dispo Type * Discharged to Home or Self Care Arrival 05/17/2016 1:39 PM Reg Status LOS 000 02:53 Address: [address] [place] [address] [phone] Comment: PROVIDER INFORMATION Provider Role Provider Contact Time ESPERANZA PUCKETT RN ED Nurse 05/17/16 13:49 MADHAV WANG MD ED Provider 05/17/16 14:10 DIAGNOSIS Headache (WHITE) Benign Comment: PATIENT EDUCATION INFORMATION Instructions: HEADACHE, Unspecified Follow up: With: Address: When: KALEE MORENO [address] [place] [phone] Business (1) Within As Needed Source: [facility] POWERCHART Document Id: [id number] ESSOR OF PHYSICS Esperanza Puckett R.N. - 05/17/2016 4:32 PM CST ED Discharge Instructions [facility] [address] [place] [address] Name: NAZ CHAKRABORTY Date of : 1995 12:00 PM Visit Date: 05/17/2016 1:39 PM [facility] Number: [id number] Address: [address] [place] [phone] Primary Care Provider: KALEE MORENO MD IMPORTANT: [facility] in [place] would like to thank you for allowing us to assistyou with your healthcare needs. The following includes patient education materials and information regarding your injury/illness. Diagnosis: Headache (WHITE) Benign Follow-Up Instructions: With: Address: When: KALEE MORENO [address] [place] [id number] Business (1) Within As Needed Your Upcoming Appointments: Date Time Location Provider No Appointments found Patient Education Materials: Headache [Unspecified] The cause of your headache today is not clear, but it does not appear to be the sign of any serious illness. Under stress, some people tense the muscles of their shoulder, neck and scalp without knowing it. Ifthis condition lasts long enough, a TENSION HEADACHE can occur. A MIGRAINE HEADACHE is caused by changes in blood flow to the brain. A migraine attack may be triggered by emotional stress, hormone changes during the menstrual cycle, oral contraceptives, alcohol use, certain foods containing tyramine, eye strain, weather changes, missing meals, lack of sleep or over sleeping. Other causes of headache include a viral illness with high fever, head injury with concussion, sinus, ear or throat infection, dental pain and TMJ (jaw joint) pain. More serious but less common causes of headache include stroke, brain hemorrhage, brain tumor, meningitis and encephalitis. Home Care: ?? If you were given pain medicine for this headache, do not drive yourself home. Arrange for a ride, instead. When you get home, try to sleep. You should feel much better when you wake up. ?? Apply heat to the back of your neck to relieve neck muscle spasm. Migraine headaches may respond best to an ice pack on the forehead or at the base of the skull. ?? If you are having nausea or vomiting, follow a light diet until your headache is relieved. ?? If you have a migraine type headache, use sunglasses when in the daylight or around bright indoorlighting until symptoms improve. Bright glaring light can worsen this kind of headache. Follow Up with your doctor if the headache is not better within the next 24 hours. If you have frequent headaches you should discuss a treatment plan with your primary care doctor. By being aware of the earliestsigns of headache, and starting treatment right away, you may be able to stop the pain yourself. Get Prompt Medical Attention if any of the following occur: ?? Worsening of your head pain or no improvement within 24 hours ?? Repeated vomiting (unable to keep liquids down) ?? Fever of 100.4?F (38?C) or higher, or as directed by your healthcare provider ?? Stiff neck ?? Extreme drowsiness, confusion or fainting ?? Dizziness, vertigo (dizziness with spinning sensation) ?? Weakness of an arm or leg or one side of the face ?? Difficulty with speech or vision ?? [id number] [place] [address]. All rights reserved. This information is not [...] if you dont have one. Go to [email or web address] and click on Create Your Account. Then, follow the directions to complete the online form. Youll be asked for your [facility] number which you can find at the top of this document. ED Tests and Procedures: Order Status Discharge Prescriptions & Home Medications: Medication/Strength Dose Route Frequency Indications/Special Instructions/Comments/Notes *HYDROcodone-acetaminophen ([place] 5 mg-325 mg oral tablet) 1 tab(s) [...] had special tests, such as EKG's or X-rays, we will review them again within 24 [...] home with a responsible republican. DAVION Domingo KALLIE MARIE , or responsible republican have received this [...] had special tests, such as EKG's or X-rays, we will review them again within 24 [...] home with a responsible republican. DAVION Domingo KALLIE MARIE , or responsible republican have received this information and my questions have been answered. I have discussed any challenges I see with this plan with the nurse or physician. Patient Signature or Responsible Republican/Relationship Date Time Provider Signature Date Time This document has images extracted. Please consider using [employer] for all your patient education needs. Source: [facility] POWERCHART Document Id: [id number] ESSOR OF PHYSICS documented in this encounter Medications at Time [...] by 0 015 500 mg tablet mouth. Mis Prescription [facility] Prescription See 0 016 03/20/2022 (Allergy Immunotherapy) Instructions, testoterone--80 mg IM per week--(has been taking past 8 months) traZODone (DESYREL) 100 Take 1 tablet by 0 201412/01/2019 mg tablet mouth. traZODone (DESYREL) 100 Take 1 tablet by 0 201403/20/2022 mg tablet mouth at bedtime. documented as of this encounter ED Notes Esperanza Puckett R.N. - 05/17/2016 4:29 PM CST ED Disposition Summary ED Disposition Summary Entered On: 05/17/2016 16:31 PROFESSOR OF PHYSICS Performed On: 05/17/2016 16:29 PROFESSOR OF PHYSICS by ESPERANZA PUCKETT TELEMEDICINE PHYSICIAN Disposition Summary Present in Room During Exam/Procedure : Alone Mode of Discharge : Ambulatory Transportation : Private vehicle Printed Discharge Instructions Given to Patient : Yes Patient Status at Discharge from ED : Improved ESPERANZA PUCKETT RN - 05/17/2016 16:29 PROFESSOR OF PHYSICS [facility] POWERCHART Document Id: [id number] PROFESSOR OF PHYSICS!7 ESSOR OF PHYSICS Esperanza Puckett R.N. - 05/17/2016 4:19 PM CST ED Nurse Reassess ED Nurse Reassess Entered On: 05/17/2016 16:19 PROFESSOR OF PHYSICS Performed On: 05/17/2016 16:19 PROFESSOR OF PHYSICS by ESPERANZA PUCKETT RN Pain Assessment Pain Symptoms : No ESPERANZA PUCKETT RN - 05/17/2016 16:19 PROFESSOR OF PHYSICS Source: [facility] POWERCHART Document Id: [id number] PROFESSOR OF PHYSICS!3 ESSOR OF PHYSICS Madhav Wang M.D. - 05/17/2016 4:04 PM CST Headache Patient: NAZ CHAKRABORTY Age: 21 years Sex: Female : 1995 Author: MADHAV WANG MD Attachments: None Associated Diagnosis: Headache (WHITE) Benign Basic Information Time seen: Immediately upon arrival. History source: Patient. Arrival mode: Private vehicle, walking. History limitation: None. Additional information: Chief Complaint from Nursing Triage Note : Chief Complaint Description 05/17/2016 13:45 PROFESSOR OF PHYSICS Chief Complaint Description Pt presents for eval of migraine reports onset was yesterday and he has tried water and Tylenol and it is not helping. Takes Propranolol daily for prevention, though has been on and off of it over the last few months because of RX problems. . History of Present Illness History of intermittent migraine headaches since childhood, generally left- sided. Has a left-sided headache which feels like previous migraines. Nausea but no vomiting. Photophobia. No neurologic deficit has been noticed. Normally takes propranolol for suppression. Ran out recently, but restarted lastweek. Wonders if that triggered the headache. The patient presents with headache. The onset was abrupt. The course/duration of symptoms is constant. Location: Left temporal. Radiating pain: none. The character of symptoms is sharp and throbbing. The degree at onset was moderate. The degree at maximum was severe. The degree at present is severe. There are exacerbating factors including light and noise. The relieving factor is none. Risk factors consist of none. Prior episodes: none. Review of Systems Constitutional symptoms: No fever. ENMT symptoms: No sore throat, no nasal congestion or no sinus pain. Neurologic symptoms: Headache, but no altered level of consciousness, no numbness, no tingling or noweakness. Health Status Allergies: Allergic Reactions (Selected) NKA. 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 Surgical history: No active procedure history items have been selected or recorded.. Family history: No family history items have been selected or recorded.. Social history: Has changed his name to Pablo. 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 Physical Examination Vital Signs: Vital Signs 05/17/2016 14:37 PROFESSOR OF PHYSICS Peripheral Pulse Rate 55 /min LOW Respiratory Rate 12 /min LOW SpO2 100 % Systolic Blood Pressure 110 mmHg Diastolic Blood Pressure 77 mmHg BP Location Left upper 05/17/2016 13:45 PROFESSOR OF PHYSICS Temperature Core 36.6 DegC Peripheral Pulse Rate 68 /min Respiratory Rate 12 /min LOW SpO2 98 % Systolic Blood Pressure 133 mmHg Diastolic Blood Pressure 94 mmHg >HHI Mean Arterial Pressure 107 mmHg BP Location Right upper , Measurements 05/17/2016 14:37 PROFESSOR OF PHYSICS Height 163 cm 05/17/2016 13:45 PROFESSOR OF PHYSICS Height 163 cm Dosing Weight 70.00 kg NA Estimated Weight 70 kg , SpO2 05/17/2016 14:37 PROFESSOR OF PHYSICS SpO2 100 % 05/17/2016 13:45 PROFESSOR OF PHYSICS SpO2 98 % . General: Alert and no acute distress. Skin: Warm, dry, pink and intact. Eye: Pupils are equal, round and reactive to light and extraocular movements are intact. Ears, nose, mouth and throat: Tympanic membranes clear, oral mucosa moist and Sinuses minimally tender diffusely.. Neck: Supple and no tenderness. Cardiovascular: Normal peripheral perfusion. Respiratory: Respirations are non-labored. Genitourinary Neurological: Alert and oriented to person, place, time, and situation and No focal neurological deficit observed. Psychiatric: Cooperative. Medical Decision Making Rationale:Probable migraine headache. Patient is transgender on intramuscular testosterone. It sounds like headaches have long proceeded the hormonal therapy. Therefore I think probably mostly irrelevant. No recent medication changes were malignant features. We treated with normal saline, Toradol and Zofran. After 90 minutes the headache was more less extinguished. He was stable for discharge.. Impression and Plan Diagnosis Headache (WHITE) Benign (Discharge, Emergency medicine, Medical) Plan Condition: Stable. Disposition: Discharged: Time 05/17/2016 16:05:00, to home. Patient was given the following educational materials: HEADACHE, Unspecified. Follow up with: KALEE MORENO Within As Needed. Counseled: Patient. Electronically Signed By: MADHAV WANG MD On: 05/17/2016 04:32 PM Modified by and Electronically Signed by: MADHAV WANG MD On: 05/17/2016 04:32 PM Source: [facility] Pianpian Document Id: [id number]} ESSOR OF PHYSICS Esperanza Puckett R.N. - 05/17/2016 2:38 PM CST ED Nurse Reassess ED Nurse Reassess Entered On: 05/17/2016 14:38 PROFESSOR OF PHYSICS Performed On: 05/17/2016 14:38 PROFESSOR OF PHYSICS by ESPERANZA PUCKETT RN Pain Assessment Pain Symptoms : Yes ESPERANZA PUCKETT RN - 05/17/2016 14:38 PROFESSOR OF PHYSICS Comfort Measures Patient Response : IV started and IV Toradol and Zofran given ESPERANZA PUCKETT RN - 05/17/2016 14:38 PROFESSOR OF PHYSICS [facility] Document Id: [id number] PROFESSOR OF PHYSICS!5 ESSOR OF PHYSICS Esperanza Puckett R.N. - 05/17/2016 2:30 PM CST ED Treatments and Procedures ED Treatments and Procedures Entered On: 05/17/2016 14:39 PROFESSOR OF PHYSICS Performed On: 05/17/2016 14:30 PROFESSOR OF PHYSICS by ESPERANZA PUCKETT RN Peripheral IV Peripheral IV Assess/Intervention Grid Peripheral IV #1 IV Activity : Start Date of Insertion : 05/17/2016 PROFESSOR OF PHYSICS IV Site : Antecubital Laterality : Right ESPERANZA PUCKETT RN - 05/17/2016 14:38 PROFESSOR OF PHYSICS Source: [facility] POWERCHART Document Id: [id number] PROFESSOR OF PHYSICS!8 ESSOR OF PHYSICS Esperanza Puckett R.N. - 05/17/2016 1:45 PM CST ED Primary Assessment Document Has Been Updated ED Primary Assessment Entered On: 05/17/2016 13:49 PROFESSOR OF PHYSICS Performed On: 05/17/2016 13:45 PROFESSOR OF PHYSICS by ESPERANZA PUCKETT RN Reason For Visit (As Of: 05/17/2016 13:49:45 PROFESSOR OF PHYSICS) Problems(Active) Dysphoria Gender Adolescent Or Adult (ICD-10-CM :F64.1 ) Name of Problem: Dysphoria Gender Adolescent Or Adult ; Recorder: FELI GROSS MD; Confirmation: Confirmed ; Classification: Medical ; Code: F64.1 ; Contributor System: Frontleaf ; Last Updated: 08/02/2015 3:41 PROFESSOR OF PHYSICS ; Life Cycle Date: 2015 ; Life Cycle Status: Active ; Vocabulary: ICD-10-CM Migraine Headache (WHITE) NOS (ICD-10-CM :G43.909 ) Name of Problem: Migraine Headache (WHITE) NOS ; Recorder: FELI GROSS MD; Confirmation: Confirmed ; Classification: Medical ; Code: G43.909 ; Contributor System: Frontleaf ; Last Updated: 08/02/2015 3:41 PROFESSOR OF PHYSICS ; Life Cycle Date: 08/02/2015 ; Life Cycle Status: Active ; Vocabulary: ICD-10-CM Diagnoses(Active) Headache Date: 05/17/2016 ; Diagnosis Type: Reason For Visit ; Confirmation: Complaint of ; ClinicalDx: Headache ; Classification: Medical ; Clinical Service: Emergency medicine ; Code: PNED ; Probability: 0 ; Diagnosis Code: [id number] Triage Chief Complaint Description : Pt presents for eval of migraine reports onset was yesterday and he has tried water and Tylenol and it is not helping. Takes Propranolol daily for prevention, though hasbeen on and off of it over the last few months because of RX problems. Information Given By : Patient Present in Room During Exam/Procedure : Alone Mode of Arrival ED : Private vehicle Track : Medical Languages : Namibian Vital Signs Assessed : Yes Treatments Prior to Arrival : Acetaminophen Are you ? : No Is Patient Female and 13-50 no hysterectomy : Yes Status : Patient denies ESPERANZA PUCKETT RN - 05/17/2016 13:45 PROFESSOR OF PHYSICS Vital Signs Temperature Core : 36.6 DegC(Converted to: 97.9 DegF) Peripheral Pulse Rate : 68 /min Respiratory Rate : 12 /min (LOW) Systolic Blood Pressure : 133 mmHg Diastolic Blood Pressure : 94 mmHg (>HHI) NIBP Mean : 107 mmHg BP Location : Right upper extremity SpO2 : 98 % Oxygen Therapy : Room air Height : 163 cm(Converted to: 5 ft 4 inch(es)) Estimated Weight : 70 kg Estimated Weight Conversion to Pounds : 154 lb ESPERANZA PUCKETT RN - 05/17/2016 13:45 PROFESSOR OF PHYSICS Pain Assessment Pain Symptoms : Yes ESPERANZA PUCKETT RN - 05/17/2016 13:45 PROFESSOR OF PHYSICS Pain Scale Pain Scale Verbal 0-10 : Open ESPERANZA PUCKETT RN - 05/17/2016 13:45 PROFESSOR OF PHYSICS Pain Pain Assessment Grid Pain 1 Location : Head Intensity : 10 ESPERANZA PUCKETT RN - 05/17/2016 13:45 PROFESSOR OF PHYSICS ANA ANA Level 1 : No ANA Level 2 : No ANA Level 3 : One ESPERANZA PUCKETT RN - 05/17/2016 13:45 PROFESSOR OF PHYSICS DCP GENERIC CODE Tracking Acuity : 4 -Less Urgent Tracking Group : MAQN ED ESPERANZA PUCKETT RN - 05/17/2016 13:45 PROFESSOR OF PHYSICS Allergy (As Of: 05/17/2016 13:49:45 PROFESSOR OF PHYSICS) Allergies (Active) NKA Estimated Onset Date: Unspecified ; Created By: ERIC LOPEZ RN; Reaction Status: Active ; Substance: NKA ; Type: Allergy ; Updated By: ERIC LOPEZ RN; Reviewed Date: 05/17/2016 13:48 PROFESSOR OF PHYSICS ID Screen Drug Resistant Organism : No Travel Within Last 21 Days : No Contact with someone with Ebola : No ESPERANZA PUCKETT RN - 05/17/2016 13:45 PROFESSOR OF PHYSICS TB Symptoms Grid Bloody Sputum : No Fatigue : No Fever : No Loss of Appetite : No Night Sweats : No Persistent Cough Greater Than 3 Weeks : No Weight Loss : No ESPERANZA PUCKETT RN - 05/17/2016 13:45 PROFESSOR OF PHYSICS Immunizations Influenza : None ESPERANZA PUCKETT RN - 05/17/2016 13:45 PROFESSOR OF PHYSICS Respiratory Airway : Patent Respirations : Unlabored Respiratory Pattern : Regular ESPERANZA PUCKETT RN - 05/17/2016 13:45 PROFESSOR OF PHYSICS Cardiovascular Heart Rhythm : Regular Skin Color : Ava Skin Description : Normal Skin Temperature : Warm ESPERANZA PUCKETT RN - 05/17/2016 13:45 PROFESSOR OF PHYSICS Neurological Last Well Time Known : Not applicable Level of Consciousness : Alert Orientation : Oriented x 3 Characteristics of Speech : Appropriate for age ESPERANZA PUCKETT RN - 05/17/2016 13:45 PROFESSOR OF PHYSICS ED Psychosocial Affect/Behavior : Calm, Cooperative, Appropriate Domestic Abuse Concerns : None Behavioral Health Screen/Safety Assmt : ESPERANZA Fernández RN - 05/17/2016 13:45 PROFESSOR OF PHYSICS Gastrointestinal Nutrition ED : Adequate ESPERANZA PUCKETT RN - 05/17/2016 13:45 PROFESSOR OF PHYSICS Musculoskeletal Fall Prevention Education Provided : ESPERANZA JOHNS RN - 05/17/2016 13:45 PROFESSOR OF PHYSICS Social Habits Exposure to Tobacco Smoke : Patient smokes Smoking Status : Current every day smoker Tobacco 2A : Yes Tobacco Use/Currently Using : Yes Tobacco Use/Last 30 Days : Yes Tobacco Use/Last 12 months : Yes Type : Cigarettes: Less than 20 per day Tobacco Use/Advised to Quit : Yes ESPERANZA PUCKETT RN - 05/17/2016 13:45 PROFESSOR OF PHYSICS Alcohol Use Grid Alcohol Use : Yes Frequency : Weekly ESPERANZA PUCKETT RN - 05/17/2016 13:45 PROFESSOR OF PHYSICS Recreational Drug Use Grid Drug Use : None ESPERANZA PUCKETT RN - 05/17/2016 13:45 PROFESSOR OF PHYSICS Source: [facility] POWERCHART Document Id: [id number] PROFESSOR OF PHYSICS!94 ESSOR OF PHYSICS documented in this encounter Miscellaneous Notes Miscellaneous - Conversion, Historical Provider Ser - 05/17/2016 4:32 PM PROFESSOR OF PHYSICS Coding Summary-Paper Based CODING DATE: 05/27/2016 FINAL [facility] STATUS: * Discharged to Home or Self Care PAYOR: [employer] ADMIT DX: R51 Headache REASON FOR VISIT DX: R51 Headache FINAL DX: PRINCIPAL: R51 Headache SECONDARY: R11.0 Nausea F17.210 Nicotine dependence, cigarettes, uncomplicated PROCEDURES DOCTOR NAME DATE NOTE: The code number assigned matches the documented diagnosis and / or procedure in the patient's chart. However, the narrative phrase printed from the coding software may appear abbreviated, or result in slightly different terminology. Coded By: GRAHAM CLOUD Date Saved: 05/27/2016 10:17 am Source: [employer] Document Id: [id number] [place] - Esperanza Puckett R.N. - 05/17/2016 4:31 PM CST Valuables/Belongings Valuables/Belongings Entered On: 05/17/2016 16:31 PROFESSOR OF PHYSICS Performed On: 05/17/2016 16:31 PROFESSOR OF PHYSICS by ESPERANZA PUCKETT RN Valuables/Belongings Belongings Sent Home With : patient ESPERANZA PUCKETT RN - 05/17/2016 16:31 PROFESSOR OF PHYSICS [facility] Document Id: [id number] PROFESSOR OF PHYSICS!3 ESSOR OF PHYSICS Erikacellluis - Esperanza Puckett R.N. - 05/17/2016 1:39 PM CST Facility Charge Ticket 2.0 11.0 DX Facility Charge Ticket 2.0 11.0 DX Entered On: 05/17/2016 16:32 PROFESSOR OF PHYSICS Performed On: 05/17/2016 13:39 PROFESSOR OF PHYSICS by ESPERANZA PUCKETT RN Facility Charge Ticket 2.0 11.0 DX ED Other Charges : Standard ED Encounter TVL Level Translated RTF : Headache TVL:4 TVL Level for Facility Charge Ticket : Level 4 Arrival Mode Calc : 129 Mode of Arrival ED : Private vehicle [facility] Mode of Arrival Interpreted : Standard [facility] Process Management : None [facility]x Order Management : None 30 Minutes Critical Care : No Nursing Notes RTF : Nursing Notes ED Primary Assessment,05/17/16 13:45,ESPERANZA PUCKETT TELEMEDICINE PHYSICIAN Nurse Reassess,05/17/16 16:19,ESPERANZA PUCKETT TELEMEDICINE PHYSICIAN Nurse Reassess,05/17/16 14:38,ESPERANZA PUCKETT RN [facility]x Nursing Assessment : Triage and 1-2 nursing assessments [facility]x Disposition : Discharge Disposition RTF : discharge [facility]x Total Points with Diagnosis Control : 7 Lynx Visit Level : 24128 Level 3 Treatments Prior to Arrival : Acetaminophen ESPERANZA PUCKETT RN - 05/17/2016 16:32 PROFESSOR OF PHYSICS Source: [facility] Pianpian Document Id: [id number] PROFESSOR OF PHYSICS!18 ESSOR OF PHYSICS documented in this encounter Plan of Treatment Upcoming Encounters Date Type Specialty Care Team Description 05/23/2022 Telemedicine Endocrinology Arely Bond M.B., B.Ch. [address] [place] [address] [phone] (Wo rk) documented as of this encounter Visit Diagnoses Not on filedocumented in this encounter
--- OUTSIDE RECORDS SUMMARY | 2022-04-12 08:14 | XMS_ITS | Encounter Summary ---
:1995 Author Organization [facility] Address [address] [place] [address] Care Team Providers Name Role Phone Bella Sears M.D. Primary Care Provider [phone] Reason for Visit Reason Comments Migraine Pt presents to ED with compl aints of a migraine that started at approx 1900, now patient complaitns of na usea and vomiting so presents to ED. APAP for pain relief with no effectiv eness. Encounter Details Date Type Department Care Team Description 01/03/2018 Emergency [facility] Sofiya Caraballo D.O. Headache (Primary Dx) Department [address] [facility] [address] [place] [phone] Social History Tobacco Use Types Packs/Day Years [...] How often do you attend religious or scientologist services? Never 03/20/2022 Do you [...] place to sleep or slept in a residential (including now)? Sex Assigned at Date Recorded Female 03/20/2022 7:54 AM CDT documented as of this encounter Last Filed Vital Signs Vital Sign Reading Time Taken Comments Blood Pressure 133/88 01/03/2018 5:09 AM CDT Pulse 85 01/03/2018 5:09 AM CDT Temperature 36.4 ??C (97.5 ??F) 01/03/2018 5:09 AM CDT Respiratory Rate 16 01/03/2018 4:28 AM CDT Oxygen Saturation 98% 01/03/2018 5:09 AM CDT Inhaled Oxygen Concentration - - Weight 79.4 kg (175 lb) 01/03/2018 3:09 AM CDT Height 162.6 cm (5' 4) 01/03/2018 3:09 AM CDT Body Mass Index 30.04 01/03/2018 3:09 AM CDT documented in this encounter Discharge Instructions Discharge InstructionsSofiya Caraballo D.O. - 01/03/2018 5:08 AM CDT Take Tylenol 1,000mg every 6 hours if needed for headache. Do not take more than 4,000mg of Tylenol per day. Take the Zofran every 8 hours if needed for nausea or vomiting. Follow up with primary care as needed. Return to the ER if symptoms are worsening. AttachmentsThe following attachments cannot be sent through Care Everywhere.A Simplified Approach to Headaches (Romanian)documented in this encounter Medications at Time of [...] 04/20/2018 (ZOFRAN-ODT) 4 mg total) by mouth every disintegrating tablet 8 (eight) hours as needed for nausea or vomiting. topiramate (TOPAMAX) 25 Take 1 tablet by 0 201503/20/2022 mg tablet mouth daily. traZODone (DESYREL) 100 Take 1 tablet by 0 201412/01/2019 mg tablet mouth. traZODone (DESYREL) 100 Take 1 tablet by 0 201403/20/2022 mg tablet mouth at bedtime. documented as of this encounter ED Notes Sofiya Caraballo D.O. - 01/03/2018 3:25 AM CDT [facility] eMERGENCY dEPARTMENT eNCOUnter Pt Name: Pablo Chakraborty Birthdate 1995 Date of evaluation: 01/03/2018 Provider: Sofiya Caraballo D.O. PCP: Bella Sears M.D. CHIEF COMPLAINT Chief Complaint Patient presents with ??? Migraine Pt presents to ED with complaints of a migraine that started at approx 1900, now patient complaitnsof nausea and vomiting so presents to ED. APAP for pain relief with no effectiveness. HISTORY OF PRESENT ILLNESS Pablo Chakraborty is a 22 y.o. male with history of migraine headaches who presents to the ED due to right frontal headache that started about 6:30pm tonight. Patient had been on Topamax 50mg, which gave him good prophylactic control of his headaches, but was instructed to stop the medication about 8 weeks ago, for his phalloplasty. Since then he has had weekly headaches associated with n/v and photophobia. He has taken Tylenol at home without relief. He is currently restricted from NSAIDs due to his upcomming additional surgeries. His surgeon is Dr. Alley Ch at [facility] in [place]. No associated numbness, tingling, or weakness. Headache is typical of previous migraines. REVIEW OF SYSTEMS Constitutional: Negative for fever. Skin: Negative for skin rash. Eyes: No vision changes ENT: No ear pain, nasal congestion, sinus pressure, or tinnitus. No phonophobia. Respiratory: Negative for dyspnea. Cardiovascular: Negative for chest pain, pressure or tightness and swelling in the legs or feet. Gastrointestinal: Positive for nausea and vomiting. Negative for abdominal (belly) pain or cramping and diarrhea. Genitourinary: Negative for pain with urination and hematuria. Musculoskeletal: Negative for back pain. Neurological: Positive for headaches. Negative for light-headedness, slurred speech and weakness in arms or legs. PAST MEDICAL HISTORY Past Medical History: Diagnosis Date [...] ??? Diabetes Father SOCIAL HISTORY Social History Substance Use Topics ??? Smoking status: Former Smoker ??? Smokeless tobacco: Never Used ??? Alcohol use Not on file PHYSICAL EXAM BP (!) 125/95 (BP Location: Left arm, Patient Position: Semi-recumbent) Pulse 79 Temp 36.2 ??C (Temporal) Resp 16 Ht 162.6 cm Wt 79.4 kg SpO2 98% BMI 30.04 kg/m?? Constitutional: He is oriented to person, place, and time. He appears well- developed and well-nourished. No distress. Difficulty historian. Evasive and vague to answering questions about his current headache symptoms and headache history. Doesn't know his current medications. HENT: Head: Normocephalic. Nose: Nose normal. Mouth/Throat: Oropharynx is clear and moist. Eyes: Conjunctivae and EOM are normal. Pupils are equal, round, and reactive to light. Right eye exhibits no discharge. Left eye exhibits no discharge. Neck: Normal range of motion. Neck supple. Cardiovascular: Normal rate. Pulmonary/Chest: Effort normal. Musculoskeletal: No peripheral edema. Neurological: He is alert and oriented to person, place, and time. He has normal strength. No cranial nerve deficit or sensory deficit. Coordination and gait normal. GCS eye subscore is 4. GCS verbal subscore is 5. GCS motor subscore is 6. Skin: Skin is warm and dry. Capillary refill takes less than 2 seconds. No rash noted. No pallor. PROCEDURES Unless otherwise noted below, none Procedures EMERGENCY DEPARTMENT COURSE and DIFFERENTIAL DIAGNOSIS/MDM: Patient was given the following medications: Medications NaCl 0.9 % bolus 1,000 mL (1,000 mL intravenous New Bag 01/03/18353) metoclopramide injection 20 mg (REGLAN) (20 mg intravenous Given 01/03/18352) diphenhydrAMINE injection 25 mg (BENADRYL) (25 mg intravenous Given 01/03/18354) MDM Patient presents to the emergency department with right frontal headache consistent with his prior migraines. He has had more headaches recently since stopping his Topamax about 8 weeks ago secondary to his phalloplasty surgery. He is well-appearing on examination, does not appear to be in any distress, and is neurologically intact. He had already taken Tylenol at home and is avoiding NSAIDs, so he was given Reglan and Benadryl along with 1 L of IV fluid. About [facility] through his IV fluids patient states he was cold (despite several warm blankets given to him) and uncomfortable and would like to go home. His headache and nausea are better. He had consumed about a half cup of ice chips without difficulty. I discussed with patient to continue Tylenol 1000 mg every 6 hr if needed for headache. I will also give him a prescription for Zofran if needed fornausea/vomiting. He is instructed to follow up with primary care as needed for re-evaluation and return to the ER if symptoms are worsening. FINAL IMPRESSION 1. Headache DISPOSITION/PLAN PATIENT REFERRED TO: Bella Sears M.D. [address] [place] [phone] As needed DISCHARGE MEDICATIONS: New Prescriptions ONDANSETRON ODT (ZOFRAN-ODT) 4 MG DISINTEGRATING TABLET Take 1 tablet (4 mg total) by mouth every 8(eight) hours as needed for nausea or vomiting. Sofiya Caraballo D.O. (electronically signed) Sofiya Caraballo D.O. 01/03/1812 documented in this encounter Plan of Treatment Upcoming Encounters Date Type Specialty Care Team Description 05/23/2022 Telemedicine Endocrinology Arely Bond M.B., B.Ch. [address] [place] [address] [phone] (Wo rk) documented as of this encounter Visit Diagnoses Diagnosis Headache Unspecified - Primary documented in this encounter Administered Medications Inactive Administered Medications - up to 3 most recent administrations Medication Order MAR Action Action Date Dose Rate Site diphenhydrAMINE injection 25 mg Given 01/03/2018 3:55 AM CDT 25 mg (BENADRYL) 25 mg, intravenous, Once, On 01/03/18 at 0339, For 1 dose metoclopramide injection 20 mg (REGLAN) Given 01/03/2018 3:53 AM CDT 20 mg 20 mg, intravenous, Once, On 01/03/18 at 0339, For 1 dose, Mix in 50-100mL NaCl and administer as a bolus. NaCl 0.9 % bolus 1,000 mL New Bag 01/03/2018 3:54 AM CDT 1,000 mL 1000 mL/hr 1,000 mL, intravenous, Once, On 01/03/18 at 0339, For 1 dose documented in this encounter Active and Recently Administered Medications Times are shown in CDT. Scheduled Medication Order 01/01/2018 01/02/2018 01/03/2018 diphenhydrAMINE injection 25 mg (BENADRYL) (COMPLETED) 0355 (Given - Provider: Lluvia Alcantara RDarioNDario) 25 mg, intravenous, Once, On 01/03/18 at 0339, For 1 dose metoclopramide injection 20 mg (REGLAN) (COMPLETED) 0353 (Given - Provider: Lluvia Alcantara RAdebayo) 20 mg, intravenous, Once, On 01/03/18 at 0339, For 1 dose, Mix in 50-100mL NaCl and administer as a bolus. NaCl 0.9 % bolus 1,000 mL (COMPLETED) 0354 (New Bag - Provider: Lluvia Alcantara RAdebayo)0509 (Stopped - Provider: Ce Price R.N.) 1,000 mL, intravenous, Once, On 01/03/18 at 0339, For 1 dose documented in this encounter Care Teams Rental Representative Relationship Specialty Start Date End Date Bella Sears M.D. PCP - General 11/28/16 06/30/[address] [place] [phone] documented as of this encounter
--- OUTSIDE RECORDS SUMMARY | 2022-04-12 08:15 | XMS_ITS | Encounter Summary ---
:1995 Author Organization [facility] Address [address] [place] [id number] Care Team Providers Name Role Phone Unavailable Primary Care Provider Unavailable Encounter Details Date Type Department Care Team Description 08/30/2014 Hospital Encounter HX [facility] ED [place] [...] 03/20/2022 relatives? How often do you attend anglican or faith services? Never 03/20/2022 Do you belong to any clubs or organizations such as No 03/20/2022 anglican groups, unions, fraternal or athletic groups, or [...] Sign Reading Time Taken Comments Blood Pressure 104/62 08/30/2014 2:35 PM CDT Pulse 60 08/30/2014 2:35 PM CDT Temperature - - Respiratory Rate 18 08/30/2014 2:35 PM CDT Oxygen Saturation - - Inhaled Oxygen Concentration - - Weight 70 kg (154 lb 5.2 oz) 08/30/2014 1:46 PM CDT Height 160 cm (5' 2.99) 08/30/2014 2:35 PM CDT Body Mass Index 27.34 08/30/2014 1:46 PM CDT documented in this encounter Discharge Summaries Carlin Hubbard R.N. - 08/30/2014 2:47 PM CDT ED Discharge Instructions [address] [address] Name: NAZ CHAKRABORTY Date of : 1995 12:00 PM Visit Date: 08/30/2014 1:40 PM [facility] Number: [id number] Address: [address] [place] [phone] Primary Care Provider: KALEE MORENO MD IMPORTANT: [facility] in [place] would like to thank you for allowing us to assistyou with your healthcare needs. The following includes patient education materials and information regarding your injury/illness. Diagnosis: Follow-Up Instructions: With: Address: When: KALEE MORENO [address] [place] [phone] Business (1) Within 1 week Comments: You should take Tylenol, Aleve or ibuprofen as needed for pain. You should refrain from participating in any activities were you could reinjure head. You will need to be cleared by your primary doctor prior to participating in any activities were head injury could occur. For repeated vomiting, pain out of control at home, numbness, weakness, altered mental status or any further concerns, return to the emergency department Your Upcoming Appointments: Date Time Location Provider No Appointments found Patient Education Materials: [id number] HEAD INJURY, You have had a head injury. It does not appear serious at this time. Symptoms of a more serious problem (concussion, bruising, or bleeding in the brain) may appear later. Therefore, watch for the WARNING SIGNS listed below. HOME CARE: ?? Your healthcare provider will tell you whether its okay to drive. If so, you can drive yourself home. For the next day or so, be careful when driving or using heavy machinery until you are sure you have no delayed symptoms. ?? During the next 24 hours someone must stay with you to check for the signs below. It is not necessary to stay awake or be awakened during the night. ?? If you have swelling of the face or scalp, apply an ice pack (ice cubes in a plastic bag, wrappedin a towel) for 20 minutes. Do this every 1-2 hours until the swelling starts to go down. ?? You may use acetaminophen (Tylenol) or ibuprofen (Motrin, Advil) to control pain, unless another pain medicine was prescribed. [NOTE: If you have chronic liver or kidney disease or ever had a stomach ulcer or GI bleeding, talk with your doctor before using these medicines.] Do not take aspirin after a head injury. ?? For the next 24 hours: Do not take alcohol, sedatives or medicines that make you sleepy. Avoid strenuous activities. No lifting or straining. ?? If you have had any symptoms of a concussion today (nausea, vomiting, dizziness, confusion, headache, memory loss or if you were knocked out), do not return to sports or any activity that could result in another head injury until all symptoms are gone and you have been cleared by your doctor. A second head injury before fully recovering from the first one can lead to serious brain injury. FOLLOW UP with your doctor if symptoms are not improving after 24 hours, or as directed. [NOTE: A radiologist will review any X-rays or CT scans that were taken. We will notify you of any new findings that may affect your care.] GET PROMPT MEDICAL ATTENTION if any of the following WARNING SIGNS occur: ?? Repeated vomiting ?? Severe or worsening headache or dizziness ?? Unusual drowsiness, or unable to awaken as usual ?? Confusion or change in behavior or speech, memory loss, blurred vision ?? Convulsion (seizure) ?? Increasing scalp or face swelling ?? Redness, warmth or pus from the swollen area Fluid drainage or bleeding from the nose or ears ?? [id number] [facility], [address] [place] [address], [place] [address]. All rights reserved. This information is not intended as a substitute for professional medical care. Always follow your healthcare professional's instructions. ED Tests and Procedures: Order Status Discharge Prescriptions & Home Medications: Medication/Strength Dose Route Frequency Indications/Special Instructions/Comments/Notes traZODone (traZODone) 100 mg Oral once a day multivitamin with minerals (Vitamin D with Minerals oral tablet) 1 tab(s) Oral every week *pirbuterol (Maxair Autohaler 0.2 mg/inh inhalation aerosol) 2 puff(s) Inhalation every 4 hours as needed for shortness of breath or wheezing *diphenhydrAMINE (Unisom Sleepgels Maximum Strength 50 mg oral capsule) See Instructions Sleep / Anxiety 1 cap(s) PO 3xDay * You have let us know that [...] at all times in case of emergency. Medication Reconciliation: Reconciliation is a process of identifying the most accurate list of all medications a patient is taking - including name, dosage, frequency, and route - and using this list to provide to the patient information about how to take those medications. NAZ CHAKRABORTY or joe has reviewed the home medications you have listed with us. Review the following instructions: You have NOT received any prescriptions and you have told us you are not currently taking any home medications You have NOT received any prescriptions. You have been provided a discharge medications list and you may CONTINUE taking your medications as previously prescribed by your regular providers. You have received the listed prescriptions and BEGIN all listed prescriptions as directed. Since you have listed no home medications, please check with your family doctor if you are taking any other medications. You have received the listed prescriptions and BEGIN all listed prescriptions as directed. Youhave been provided a discharge medications list and you may CONTINUE all home medications as previously prescribed by your regular providers. You have received the listed prescriptions and BEGIN all listed prescriptions as directed. Youhave been provided a discharge medications list. The following CHANGES have been made to your medication list; Otherwise, CONTINUE all home medications as previously prescribed by your regular provider. IMPORTANT: We examined and treated you today [...] a ride home with a responsible libertarian. IDAVION KALLIE , or responsible libertarian have received this information and my questions have been answered. I have discussed any challenges I see with this plan with the nurse or physician. Patient Signature or Responsible Green Party/Relationship Date Time Provider Signature Date Time Medication Reconciliation: Reconciliation is a process of identifying the most accurate list of all medications a patient is taking - including name, dosage, frequency, and route - and using this list to provide to the patient information about how to take those medications. NAZ CHAKRABORTY or michaelee has reviewed the home medications you have listed with us. Review the following instructions: You have NOT received any prescriptions and you have told us you are not currently taking any home medications You have NOT received any prescriptions. You have been provided a discharge medications list and you may CONTINUE taking your medications as previously prescribed by your regular providers. You have received the listed prescriptions and BEGIN all listed prescriptions as directed. Since you have listed no home medications, please check with your family doctor if you are taking any other medications. You have received the listed prescriptions and BEGIN all listed prescriptions as directed. Youhave been provided a discharge medications list and you may CONTINUE all home medications as previously prescribed by your regular providers. You have received the listed prescriptions and BEGIN all listed prescriptions as directed. Youhave been provided a discharge medications list. The following CHANGES have been made to your medication list; Otherwise, CONTINUE all home medications as previously prescribed by your regular provider. IMPORTANT: We examined and treated you today [...] with a responsible libertarian. DAVION Domingo KALLIE , or responsible libertarian have received this information and my questions have been answered. I have discussed any challenges I see with this plan with the nurse or physician. Patient Signature or Responsible Green Party/Relationship Date Time Provider Signature Date Time This document has images extracted. Please consider using [employer] for all your patient education needs. Source: [facility] POWERCHART Document Id: [id number] Carlin Hubbard R.N. - 08/30/2014 2:47 PM CDT ED Depart Summary [facility] Emergency Department Clinical Discharge Summary PERSON INFORMATION Name NAZ CHAKRABORTY Age 19 Years 1995 12:00 PM Sex Female Language Tristanian PCP KALEE MORENO MD Marital Status Single Visit Id Visit Reason Closed head injury without LOC; Altered mental status; nausea, slurred speech, hit headyesterday Specialty Enc Type Emergency Med Service Emergency Medicine Referred by Track Group MAQN ED Discharge 08/30/2014 2:35 PM Tracking Id [id number] Checkout 08/30/2014 2:35 PM Checkin 08/30/2014 1:40 PM Acuity 4 -Less Urgent Dispo Type * Discharged to Home or Self Care Arrival 08/30/2014 1:40 PM Reg Status LOS 000 00:55 Address: [address] [place] [phone] Comment: PROVIDER INFORMATION Provider Role Provider Contact Time GEORGIA SANDERS DO ED Provider 08/30/14 14:01 CARLIN HUBBARD MEDICAL RECORD ADMINISTRATOR Nurse 08/30/14 14:05 DIAGNOSIS Comment: PATIENT EDUCATION INFORMATION Instructions: HEAD INJURY, No Wake-Up (Adult) Follow up: With: Address: When: KALEE MORENO [address] [place] [address] [phone] Business (1) Within 1 week Comments: You should take Tylenol, Aleve or ibuprofen as needed for pain. You should refrain from participating in any activities were you could reinjure head. You will need to be cleared by your primary doctor prior to participating in any activities were head injury could occur. For repeated vomiting, pain out of control at home, numbness, weakness, altered mental status or any further concerns, return to the emergency department Source: [employer] Document Id: [id number] documented in this encounter Medications at Time of Discharge Medication Sig Dispensed Refills Start Date End Date diphenhydrAMINE (BENADRYL) Take 50 mg by 0 2012 50 mg capsule mouth. naproxen (NAPROSYN) 250 mg Take 250 mg by 0 10/24 tablet mouth. pirbuterol acetate (MAXAIR Inhale 2 puffs as 0 AUTOHALER INHL) needed. documented as of this encounter ED Notes Carlin Hubbard R.N. - 08/30/2014 2:46 PM CDT ED Disposition Summary ED Disposition Summary Entered On: 08/30/2014 14:46 CDT Performed On: 08/30/2014 14:46 CDT by CARLIN HUBBARD RN ED Disposition Summary Accompanied By : Jeb Mode of Discharge : Ambulatory Transportation : Private vehicle Printed Discharge Instructions Given to Patient : Yes Patient Status at Discharge from ED : Improved CARLIN HUBBARD RN - 08/30/2014 14:46 CDT Source: [employer] Document Id: [id number] CDT!7 Carlin Hubbard R.N. - 08/30/2014 2:35 PM CDT ED Nurse Reassess ED Nurse Reassess Entered On: 08/30/2014 14:45 CDT Performed On: 08/30/2014 14:35 CDT by CARLIN HUBBARD RN Pain Assessment Pain Symptoms : Yes CARLIN HUBBARD RN - 08/30/2014 14:44 CDT Pain Scale Pain Scale Verbal 0-10 : Open CARLIN HUBBARD RN - 08/30/2014 14:44 CDT Pain Pain Assessment Grid Pain 1 Location : Head Intensity : 3 CARLIN HUBBARD RN - 08/30/2014 14:44 CDT Resp Reassess Respiratory Patient Stated Symptoms : None CARLIN HUBBARD RN - 08/30/2014 14:44 CDT CV Reassess CV Patient Stated Symptoms : None CARLIN HUBBARD RN - 08/30/2014 14:44 CDT Neuro Reassess Last Well Time Known : Not applicable Orientation : Oriented x 3 Characteristics of Speech : Clear Level of Consciousness : Drowsy Neuro Patient Stated Symptoms : Drowsiness, Headache Gait : Steady CARLIN HUBBARD RN - 08/30/2014 14:44 CDT Behavioral Health Screen/Safety Reassmt Affect/Behavior : Calm CARLIN HUBBARD RN - 08/30/2014 14:44 CDT Source: [employer] Document Id: [id number] CDT!23 Georgia Sanders D.O. - 08/30/2014 2:14 PM CDT Closed head injury without LOC Patient: NAZ CHAKRABORTY Age: 19 years Sex: Female : 1995 Author: GEORGIA SANDERS DO Attachments: None Basic Information Additional information: Chief Complaint from Nursing Triage Note : Chief Complaint Description 08/30/2014 13:46 CDT Chief Complaint Description Pt. presents to ER after bumping head yesterday on a countertop, stating I think I have a concussion.. Pt. states she has a headache, dizziness, memory impairment while driving last night, and fatigue. . History of Present Illness The patient presents with head injury. The onset was 1 days ago. Type of injury: direct blow. The character of symptoms is pain. Loss of consciousness none. Location: Left frontal. The course/duration of symptoms is constant. The location where the incident occurred was at work. Risk factors consist of none. Prior episodes: none. Therapy today: none. Associated symptoms: nausea, headache, dizziness, denies vomiting, denies neck pain, denies altered vision, denies altered coordination and denies focal weakness. Patient presents for evaluation after head injury that occurred yesterday. Patient statesthat she was taking something up off the ground at work yesterday when she hit her left frontal region on a current and countertop. She denies loss of consciousness or pain at the time of the incident.Patient states that she noticed pain approximately 2 hours after. She is also concerned because she felt like she was having a difficult time finding her words. She denies numbness, tingling or weakness. She has a mild frontal headache, which is throbbing, 4 out of 10 and not made better by anything. She states the light makes it worse. She denies taking anything for the pain prior to coming in. . Review of Systems Constitutional symptoms: No fever. Skin symptoms: No rash. Eye symptoms: Vision unchanged, but no diplopia or no blurred vision. ENMT symptoms: Negative except as documented in HPI. Respiratory symptoms: No shortness of breath, no cough or no sputum production. Cardiovascular symptoms: No chest pain, no palpitations, no syncope or no diaphoresis. Gastrointestinal symptoms: Negative except as documented in HPI, but no abdominal pain, no nausea, no vomiting or no diarrhea. Genitourinary symptoms: No dysuria. Neurologic symptoms: Headache, dizziness and feels lightheaded/dizzy at times, but no numbness, no tingling or no weakness. Endocrine symptoms: Negative except as documented in HPI. Hematologic/Lymphatic symptoms: Negative except as documented in HPI. Additional review of systems information: All other systems reviewed and otherwise negative. Health Status Allergies: Allergic Reactions (Selected) NKA. Past Medical/ Family/ Social History Medical history: No active or resolved past medical history items have been selected or recorded., no significant PMH. Surgical history: No active procedure history items have been selected or recorded.. Physical Examination Vital Signs: Vital Signs 08/30/2014 13:46 CDT Temperature Core 36.7 DegC Peripheral Pulse Rate 69 /min Respiratory Rate 18 /min SpO2 97 % Systolic Blood Pressure 124 mmHg Diastolic Blood Pressure 73 mmHg Mean Arterial Pressure 90 mmHg BP Location Right upper , Measurements 08/30/2014 13:46 CDT Height 160 cm Height Source Stated Dosing Weight 70.00 kg Actual Weight 70 kg Body Mass Index 27.34 kg/m2 , SpO2 08/30/2014 13:46 CDT SpO2 97 % . General: Alert and no acute [...] and breath sounds are equal. Gastrointestinal: Soft, Nontender and Non distended. Musculoskeletal: Normal ROM. normal strength. Neurological: Alert and oriented to person, place, time, and situation, No focal neurological deficit observed, CN II-XII intact, normal sensory observed, normal motor observed, Coordination: Finger(s)to nose normal, heel(s) of foot to opposite jean normal, Speech: Normal and Gait: Normal. Psychiatric: Cooperative. Medical Decision Making Differential Diagnosis:Head injury, concussion. Documents reviewed:Emergency department nurses' notes. Notes:Patient evaluated. She appears in no distress and is sitting on the cot texting. She has no neurologic deficits on exam, is able to ambulate independently without difficulty. I offered a head CT to evaluate for intracranial hemorrhage but patient declined. Concussion guidelines and Toradol given. Return precautions and follow up were explained and understood by patient . Impression and Plan Diagnosis Head injury Plan Condition: Stable. Disposition: Discharged: to home. Patient was given the following educational materials: HEAD INJURY, No Wake-Up (Adult). Follow up with: KALEE MORENO Within 1 week You should take Tylenol, Aleve or ibuprofen as needed for pain. You should refrain from participating in any activities were you could reinjure head. Youwill need to be cleared by your primary doctor prior to participating in any activities were head injury could occur. For repeated vomiting, pain out of control at home, numbness, weakness, altered mental status or any further concerns, return to the emergency department . Counseled: Patient, Regarding diagnosis, Regarding diagnostic results, Regarding treatment plan, Regarding prescription, Patient indicated understanding of instructions. Electronically Signed By: GEORGIA SANDERS DO On: 08/30/2014 02:44 PM Modified by and Electronically Signed by: GEORGIA SANDERS DO On: 08/30/2014 02:44 PM [facility] Document Id: [id number] Carlin Hubbard R.N. - 08/30/2014 1:46 PM CDT ED Primary Assessment Document Has Been Updated ED Primary Assessment Entered On: 08/30/2014 13:56 CDT Performed On: 08/30/2014 13:46 CDT by CARLIN HUBBARD RN Reason For Visit (As Of: 08/30/2014 13:56:05 CDT) Diagnoses(Active) Altered mental status Date: 08/30/2014 ; Diagnosis Type: Reason For Visit ; Confirmation: Complaint of ; Clinical Dx: Altered mental status ; Classification: Medical ; Clinical Service: Emergency medicine ; Code: PNED ; Probability: 0 ; Diagnosis Code: [id number] Triage Chief Complaint Description : Pt. presents to ER after bumping head yesterday on a countertop, stating I think I have a concussion.. Pt. states she has a headache, dizziness, memory impairment while driving last night, and fatigue. Information Given By : Patient Accompanied By : Sibling Mode of Arrival ED : Private vehicle Track : Medical Languages : Tristanian Vital Signs Assessed : Yes Treatments Prior to Arrival : None Are you ? : No Is Patient Female and 13-50 no hysterectomy : Yes Status : Patient denies CARLIN HUBBARD RN - 08/30/2014 13:46 CDT Vital Signs Temperature Core : 36.7 DegC(Converted to: 98.1 DegF) Peripheral Pulse Rate : 69 /min Respiratory Rate : 18 /min Systolic Blood Pressure : 124 mmHg Diastolic Blood Pressure : 73 mmHg NIBP Mean : 90 mmHg BP Location : Right upper extremity SpO2 : 97 % Oxygen Saturation Monitoring Frequency : Intermittent Oxygen Therapy : Room air Height : 160 cm(Converted to: 5 ft 3 inch(es)) Actual Weight : 70 kg Actual Weight Conversion to Pounds : 154 lb Height Source : Stated Body Mass Index : 27.34 kg/m2 CARLIN HUBABRD RN - 08/30/2014 13:46 CDT Pain Assessment Pain Symptoms : Yes CARLIN HUBBARD RN - 08/30/2014 13:46 CDT Pain Scale Pain Scale Verbal 0-10 : Open CARLIN HUBBARD CASH - 08/30/2014 13:46 CDT Pain Pain Assessment Grid Pain 1 Location : Head Laterality : Other: frontal Intensity : 5 Quality : Aching CARLIN HUBBARD CASH - 08/30/2014 13:46 CDT ED Physician Notification Time ED Physician Notification Time : 08/30/2014 13:53 CDT CARLIN HUBBARD CASH - 08/30/2014 13:46 CDT ANA ANA Level 1 : No ANA Level 2 : No ANA Level 3 : One CARLIN HUBBARD CASH 08/30/2014 13:46 CDT DCP GENERIC CODE Tracking Acuity : 4 -Less Urgent Tracking Group : MAQN ED CARLIN HUBBARD CASH 08/30/2014 13:46 CDT Allergy (As Of: 08/30/2014 13:56:05 CDT) Allergies (Active) NKA Estimated Onset Date: Unspecified ; Created By: ERIC LOPEZ RN; Reaction Status: Active ; Substance: NKA ; Type: Allergy ; Updated By: ERIC LOPEZ RN; Reviewed Date: 08/30/2014 13:53 CDT ID Screen Drug Resistant Organism : No Travel Within Last 21 Days : No Contact with someone with Ebola : No CARLIN HUBBARD CASH 08/30/2014 13:46 CDT TB Symptoms Grid Bloody Sputum : No Fatigue : No Fever : No Loss of Appetite : No Night Sweats : No Persistent Cough Greater Than 3 Weeks : No Weight Loss : No CARLIN HUBBARD CASH 08/30/2014 13:46 CDT Alcohol and Drug Use : No Employee of Institutional Living Environment : No Health Care Employee : No History of Exposure to TB : No History of Positive Chest X-Ray for TB : No History of Positive TB Skin Test : No Homeless : No Known Immunosuppression : No Recent Immigrant : No Resident of Institutional Living Environment : No CARLIN HUBBARD CASH 08/30/2014 13:46 CDT Immunizations Influenza : None CARLIN HUBBARD CASH 08/30/2014 13:46 CDT Respiratory Airway : Patent Respirations : Unlabored Respiratory Pattern : Regular Oxygen Therapy : Room air CARLIN HUBBARD CASH 08/30/2014 13:46 CDT Cardiovascular Heart Rhythm : Regular Skin Color : [place] Skin Description : Dry Skin Temperature : Warm CARLIN HUBBARD CASH 08/30/2014 13:46 CDT Neurological Last Well Time Known : Not applicable Level of Consciousness : Drowsy Orientation : Oriented x 3 Characteristics of Speech : Clear Neuro Patient Stated Symptoms : Drowsiness, Headache Gait : Steady Loss of Consciousness : Unknown CARLIN HUBBARD RN - 08/30/2014 13:46 CDT ED Psychosocial Affect/Behavior : Calm Domestic Abuse Concerns : None CARLIN HUBBARD RN - 08/30/2014 13:46 CDT Gastrointestinal Nutrition ED : Adequate CARLIN HUBBARD RN - 08/30/2014 13:46 CDT /OB Assessment Patient Stated Symptoms : None CARLIN HUBBARD RN - 08/30/2014 13:46 CDT Musculoskeletal Fall Prevention Education Provided : Yes CARLIN HUBBARD RN - 08/30/2014 13:46 CDT Social Habits Tobacco Use/Currently Using : Yes Smoking Status : Current every day smoker CARLIN HUBBARD RN - 08/30/2014 13:46 CDT Tobacco Use Grid Cigarette Use Packs/Day : 0.5 CARLIN HUBBARD RN - 08/30/2014 13:46 CDT Source: [employer] Document Id: [id number] CDT!107 documented in this encounter Miscellaneous Notes Miscellaneous - Carlin Hubbard R.N. - 08/30/2014 2:46 PM CDT Valuables/Belongings Valuables/Belongings Entered On: 08/30/2014 14:46 CDT Performed On: 08/30/2014 14:46 CDT by CARLIN HUBBARD RN Valuables/Belongings Belongings Sent Home With : patient CARLIN HUBBARD RN - 08/30/2014 14:46 CDT Source: [employer] Document Id: [id number] CDT!3 Miscellaneous - Conversion, Historical Provider Ser - 08/30/2014 2:35 PM CDT Coding Summary-Paper Based CODING DATE: 08/31/2014 FINAL [facility] STATUS: * Discharged to Home or Self Care PAYOR: Self Pay APC DESCRIPTION 0615 Level 4 Type A Emergency Visits ADMIT DX: 959.01 Head Injury, Unspecified REASON FOR VISIT DX: 959.01 Head Injury, Unspecified FINAL DX: PRINCIPAL: 959.01 Head Injury, Unspecified SECONDARY: E917.4 Striking Against or Struck Accidentally, by Other Stationary Object without Subsequent Fall E849.9 [address] Unspecified [address] PYMT PROC APC STAT DESCRIPTION DOCTOR NAME DATE 17877 0615 V EMERGENCY DEPARTMENT [place] SANDERS DO 08/30/2014 VISIT HIGH/URGENT SEVERITY 25 SIG SEP IDEN EVAL AND MAN SERVICE BY THE SAME PHYSICIAN ON THE SAME DAY OF THE PROC OR OTH SERVICE. NOTE: The code number assigned matches the documented diagnosis and / or procedure in the patient's chart. However, the narrative phrase printed from the coding software may appear abbreviated, or result in slightly different terminology. Coded By: LILIYA FRANKS Date Saved: 08/31/2014 10:43 am [facility] Document Id: [id number] Miscellaneous - Carlin Hubbard, R.N. - 08/30/2014 1:40 PM CDT Facility Charge Ticket 2.0 11.0 DX Facility Charge Ticket 2.0 11.0 DX Entered On: 08/30/2014 14:46 CDT Performed On: 08/30/2014 13:40 CDT by CARLIN HUBBARD RN Facility Charge Ticket 2.0 11.0 DX ED Other Charges : Standard ED Encounter TVL Level Translated RTF : Altered mental status, Closed head injury without LOC TVL:5 TVL Level for Facility Charge Ticket : Level 5 Arrival Mode Calc : 1 Mode of Arrival ED : Private vehicle [facility] Mode of Arrival Interpreted : Standard [facility] Process Management : None [facility] Order Management : None 30 Minutes Critical Care : No Nursing Notes RTF : Nursing Notes ED Primary Assessment,08/30/14 13:46,CARLIN HUBBARD MEDICAL RECORD ADMINISTRATOR Nurse Reassess,08/30/14 14:35,CARLIN HUBBARD RN [facility] Nursing Assessment : Triage and 1-2 nursing assessments [facility] Disposition : Discharge Disposition RTF : discharge [facility] Total Points with Diagnosis Control : 11 [facility] Visit Level : 21579 Level 4 Treatments Prior to Arrival : None CARLIN HUBBARD RN - 08/30/2014 14:46 CDT Source: [facility] [employer] Document Id: [id number]!18 documented in this encounter Plan of Treatment Upcoming Encounters Date Type Specialty Care Team Description 05/23/2022 Telemedicine Endocrinology Arely Bond M.B., B.Ch. [address] [place] [address] [phone] (Wo rk) documented as of this encounter Visit Diagnoses Not on filedocumented in this encounter
--- OUTSIDE RECORDS SUMMARY | 2022-04-12 08:15 | XMS_ITS | Encounter Summary ---
:1995 Author Organization [facility] Address [address] [place] [id number] Care Team Providers Name Role Phone Unavailable Primary Care Provider Unavailable Encounter Details Date Type Department Care Team Description 04/13/2013 Hospital Encounter HX [facility] Randal Salas M.D. [address] [place], [place] [phone] (Wo rk) Social History Tobacco Use Types [...] 03/20/2022 relatives? How often do you attend episcopal or gnosticism services? Never 03/20/2022 Do you belong to any clubs or organizations such as No 03/20/2022 episcopal groups, unions, fraternal or athletic groups, or [...] INHL) needed. documented as of this encounter Procedure Notes Newton Frazier M.D. - 04/13/2013 12:00 AM CDT 1ECG STRESS ECG PORTION OF A STRESS ECHOCARDIOGRAM CHIEF COMPLAINT: Chest pain. PROCEDURE: The patient's resting electrocardiogram shows normal sinus rhythm at a rate of 77. Resting blood pressure is 102/70. There are no resting electrocardiographic abnormalities. Patient was exercised today on an upright treadmill according to the [place] protocol. She exercised a total 8 minutes and 3 seconds being limited by fatigue. Her peak achieved heart rate of 175 represents 87% of predicted maximum and allows for diagnostic interpretation of this test. Peak blood pressure was 142/60. There were no exercise-induced arrhythmias. The electrocardiogram was normal throughout. This is a normal stress electrocardiogram. Echo imaging was also performed and will be dictated separately. CONCLUSIONS 1. Normal stress electrocardiogram. The patient had neither chest pain nor ST- segment abnormalities with average treadmill capacity. 2. No exercise-induced arrhythmias. 3. Normal heart rate blood pressure response to exercise. 4. Echo images are also normal and will be dictated separately. Newton Frazier M.D./wiley cc: Bella Sears M.D. [address] [address] Electronically Signed By: NEWTON FRAZIER MD On: 05/17/2014 02:17 PM Source: [facility] Document Id: [id number] ING KILN OPERATOR documented in this encounter Plan of Treatment Upcoming Encounters Date Type Specialty Care Team Description 05/23/2022 Telemedicine Endocrinology Arely Bond M.B., B.Ch. [address] [place] [address] [phone] (Wo rk) documented as of this encounter Visit Diagnoses Not on filedocumented in this encounter
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
--- OUTSIDE RECORDS SUMMARY | 2022-04-12 08:15 | XMS_ITS | Encounter Summary ---
:1995 Author Organization [facility] Address [address] [place] [address] Care Team Providers Name Role Phone Unavailable Primary Care Provider Unavailable Encounter Details Date Type Department Care Team Description 07/25/2015 Hospital Encounter HX [facility] Kyler Harris ED, M.D. [address] [place], [place] [phone] (Wo rk) Social History Tobacco Use Types [...] 03/20/2022 relatives? How often do you attend tenriism or zoroastrian services? Never 03/20/2022 Do you belong to any clubs or organizations such as No 03/20/2022 tenriism groups, unions, fraternal or athletic groups, or [...] Sign Reading Time Taken Comments Blood Pressure 124/78 07/25/2015 3:35 PM COLOR STRAINER Pulse 68 07/25/2015 3:35 PM COLOR STRAINER Temperature - - Respiratory Rate 16 07/25/2015 3:35 PM COLOR STRAINER Oxygen Saturation - - Inhaled Oxygen Concentration - - Weight - - Height 163 cm (5' 4.17) 07/25/2015 3:35 PM COLOR STRAINER Body Mass Index - - documented in this encounter Discharge Summaries Brenda Castano R.N. - 07/25/2015 4:44 PM CST ED Discharge Instructions [address] [address] Name: NAZ CHAKRABORTY Date of : 1995 12:00 PM Visit Date: 07/25/2015 12:43 PM [facility] Number: [id number] Address: [address] [place] [phone] Primary Care Provider: KALEE MORENO MD IMPORTANT: [facility] in [place] would like to thank you for allowing us to assistyou with your healthcare needs. The following includes patient education materials and information regarding your injury/illness. Diagnosis: Migraine Headache (WHITE) NOS Follow-Up Instructions: With: Address: When: KAELE MORENO [address] [place] [phone] Business (1) Within 7 - 10 days, only if needed Your Upcoming Appointments: Date Time Location Provider No Appointments found Patient Education Materials: Migraine Headache Migraine headaches are related to changes in blood flow to the brain. This causes throbbing or constant pain on one or both sides of the head. The pain may last from a few hours to several days. There is usually nausea, vomiting, sensitivity to light and sound, and blurred vision. A migraine attack may be triggered by emotional stress, hormone changes during the menstrual cycle, oral contraceptives, alcohol use, certain foods containing tyramine, eye strain, weather changes, missing meals, or too little or too much sleep. Home Care For This Headache: 1) If you were given pain medicine for this headache, do not drive yourself home . Arrange for a ride, instead. When you get home, try to sleep. You should feel much better when you wake up. 2) Migraine headaches may improve with an ice pack on the forehead or at the base of the skull. Heatto the back of your neck may relieve any neck spasm. 3) Drink only clear liquids or eat a very light diet to avoid nausea/vomiting until symptoms improve. Preventing Future Headaches: 1) Pay attention to those factors that seem to trigger your headache. Try to avoid them when you can. If you have frequent headaches, it is useful to keep a diary of what you were doing, feeling or eating in the hours before each attack. Show this to your doctor to help find the cause of your headaches. a) If you feel that stress is a factor in your headaches, look at the sources of stress in your life. Find ways to release the build-up of those stresses by using regular exercise, relaxation methods (yoga, meditation), bio-feedback or simply taking time-out for yourself. For more information about this, consult your doctor or go to a local bookstore and review books and tapes on this subject. b) Tyramine is a substance present in the following foods : chocolate, yogurt, all cheeses except cottage cheese and cream cheese. smoked or pickled fish and meat (including aguilar, caviar, bologna, pepperoni, salami), liver, avocados, bananas, figs, raisins, and red wine. Be aware that these foods may trigger a migraine in some persons. Try taking these foods out of your diet for 1-2 months to see if this reduces headache frequency. Treating Future Attacks: 1) At the first sign of a headache, take time out if possible. Find a quiet, dark, comfortable placeto sit or lie down. Let yourself relax or sleep. 2) An ice pack on the forehead or area of greatest pain may help. If you are having muscle spasm andtightness of the neck, a heating pad and massage to this area may be helpful. 3) If you have been prescribed a medicine to stop a migraine headache, use this at the very first warning sign of the headache (aura or initial pain) for best results. Follow Up with your doctor if the headache is not better within the next 24 hours. If you have frequent headaches you should discuss a treatment plan with your primary care doctor. Ask if you can have medicine to take at home the next time you get a bad headache. Poorly controlled chronic headaches may require a referral to a neurologist (headache specialist). Get Prompt Medical Attention if any of the following occur: ?? Your head pain gets worse, or does not improve within 24 hours ?? Repeated vomiting (cant keep liquids down) ?? Sinus or ear or throat pain (not already reported) ?? Fever of 100.4? F (38? C) or higher, or as directed by your healthcare provider ?? Stiff neck ?? Extreme drowsiness, confusion or fainting ?? Dizziness, vertigo (dizziness with spinning sensation) ?? Weakness of an arm or leg or one side of the face ?? Difficulty with speech or vision ?? [phone] [facility], [address] [place] [address]. All rights reserved. This information is not [...] if you dont have one. Go to [email or web address] and click on Create Your Account. Then, follow the directions to complete the online form. Youll be asked for your [facility] number which you can find at the top of this document. ED Tests and Procedures: Order Status Basic Metabolic Panel Completed CBC (includes Auto Differential) Completed Automated Diff-5 Part Completed Discharge Prescriptions [...] ride home with a responsible republican. I, NAZ CHAKRABORTY , or responsible republican have received this information and my questions have been answered. I have discussed any challenges I see with this plan with the nurse or physician. Patient Signature or Responsible Constitution Party/Relationship Date Time Provider Signature Date Time Source: [facility] POWERCHART Document Id: [id number] R STRAINER Brenda Castano, R.N. - 07/25/2015 4:44 PM CST ED Depart Summary [facility] Emergency Department Clinical Discharge Summary PERSON INFORMATION Name NAZ CHAKRABORTY Age 20 Years 1995 12:00 PM Sex Female Language Libyan PCP KALEE MORENO MD Marital Status Single Visit Id Visit Reason Headache; HEADACHE Specialty Enc Type Emergency Med Service Emergency Medicine Referred by Track Group MAQN ED Discharge 07/25/2015 3:45 PM Tracking Id [id number] Checkout 07/25/2015 3:45 PM Checkin 07/25/2015 12:43 PM Acuity 4 -Less Urgent Dispo Type * Discharged to Home or Self Care Arrival 07/25/2015 12:43 PM Reg Status SAVITA 000 03:02 Address: [address] [place] [phone] Comment: PROVIDER INFORMATION Provider Role Provider Contact Time KYLER KHANNA MD ED Provider 07/25/15 12:58 DIAGNOSIS Migraine Headache (WHITE) NOS Comment: PATIENT EDUCATION INFORMATION Instructions: HEADACHE, Migraine (Classical) Follow up: With: Address: When: KALEE MORENO [address] [place] [address], [place] [address] [phone] Business (1) Within 7 - 10 days, only if needed Source: [facility] [employer] Document Id: [id number] R STRAINER documented in this encounter Medications at Time of Discharge Medication Sig Dispensed Refills Start Date End Date albuterol (PROVENTIL Inhale 2 puffs. 0 12/24/2014 HFA,VENTOLIN HFA) 90 mcg/actuation inhaler diphenhydrAMINE (BENADRYL) Take 50 mg by 0 2012 50 mg capsule mouth. naproxen (NAPROSYN) 250 mg Take 250 mg by 0 10/24 tablet mouth. pirbuterol acetate (MAXAIR Inhale 2 puffs as 0 AUTOHALER INHL) needed. valACYclovir (VALTREX) 500 Take 1 tablet by 0 02/2015 mg tablet mouth. traZODone (DESYREL) 100 mg Take 1 tablet by 0 12/01/2019 tablet mouth. traZODone (DESYREL) 100 mg Take 1 tablet by 0 03/20/2022 tablet mouth at bedtime. documented as of this encounter Nursing Notes Carlin Hubbard R.N. - 07/25/2015 3:22 PM CST PRN Response PRN Response Entered On: 07/25/2015 14:56 COLOR STRAINER Performed On: 07/25/2015 15:22 COLOR STRAINER by CARLIN HUBBARD RN PRN Medication Effectiveness Evaluation PRN Medication Effective : Yes Post Medication Pain Assessment : 0 CARLIN HUBBARD RN - 07/25/2015 14:56 COLOR STRAINER Source: [facility] [employer] Document Id: [id number] COLOR STRAINER!4 R STRAINER documented in this encounter ED Notes Brenda Castano R.N. - 07/25/2015 3:45 PM CST ED Disposition Summary ED Disposition Summary Entered On: 07/25/2015 16:37 COLOR STRAINER Performed On: 07/25/2015 15:45 COLOR STRAINER by BRENDA CASTANO RN ED Disposition Summary Accompanied By : Alone Mode of Discharge : Ambulatory Transportation : Private vehicle Printed Discharge Instructions Given to Patient : Yes Patient Status at Discharge from ED : Improved Comment : Patient's sister transported her home. BRENDA CASTANO RN - 07/25/2015 15:59 COLOR STRAINER Source: [employer] Document Id: [id number] COLOR STRAINER!8 R STRAINER Brenda Castano R.N. - 07/25/2015 3:40 PM CST ED Nurse Reassess Document Has Been Updated ED Nurse Reassess Entered On: 07/25/2015 15:58 COLOR STRAINER Performed On: 07/25/2015 15:40 COLOR STRAINER by BRENDA CASTANO RN Pain Assessment Pain Symptoms : No BRENDA CASTANO RN - 07/25/2015 16:44 COLOR STRAINER Comfort Measures Comfort Measures Grid Comfortable Environment : Yes Quiet Environment : Yes Relaxation : Yes Rest : Yes BRENDA CASTANO RN - 07/25/2015 16:44 COLOR STRAINER Patient Response : patient reports she is feeling much better, no pain or nausea. Comfort Measures Response : Comfort level increased BRENDA CASTANO RN - 07/25/2015 16:44 COLOR STRAINER Resp Reassess Respiratory Patient Stated Symptoms : None Distress : None Airway : Patent BRENDA CASTANO RN - 07/25/2015 16:44 COLOR STRAINER CV Reassess Skin Description : Normal Skin Temperature : Warm BRENDA CASTANO RN - 07/25/2015 16:44 COLOR STRAINER Neuro Reassess Last Well Time Known : Not applicable Orientation : Oriented x 3 Characteristics of Speech : Clear Level of Consciousness : Alert Neuro Patient Stated Symptoms : Headache ARUN BRENDA Murphy RN - 07/25/2015 16:44 COLOR STRAINER Jessenia Coma Eye Opening Response [place] : Spontaneously Best Verbal Response [place] : Oriented Best Motor Response [place] : Obeys simple commands Jessenia Coma Score : 15 POONAM CASTANOBARB Murphy RN - 07/25/2015 16:44 COLOR STRAINER GI Reassess GI Patient Stated Symptoms : None TATIANNAOANHDorinaBRENDA RN - 07/25/2015 16:44 COLOR STRAINER /OB Reassess Patient Stated Symptoms : None TATIANNAOANHDorina BRENDA Murphy RN - 07/25/2015 16:44 COLOR STRAINER Integumentary Integumentary Patient Stated Symptoms : None TATIANNAOANHDorina BRENDA Murphy RN - 07/25/2015 16:44 COLOR STRAINER Source: [employer] Document Id: [id number] COLOR STRAINER!35 R STRAINER Brenda Castano R.N. - 07/25/2015 3:40 PM CST ED Treatments and Procedures ED Treatments and Procedures Entered On: 07/25/2015 16:46 COLOR STRAINER Performed On: 07/25/2015 15:40 COLOR STRAINER by BRENDA CASTANO RN Peripheral IV Peripheral IV Assess/Intervention Grid Peripheral IV #1 IV Activity : Discontinue Removal : Catheter intact, Hemostasis within expected timeframe Date of Insertion : 07/25/2015 COLOR STRAINER IV Site : Antecubital Laterality : Left Catheter Size : 20 Catheter Type : Over the needle Primary Tubing Changed : 07/25/2015 COLOR STRAINER Dressing/ Activity : Dry, Intact, Gauze BRENDA CASTANO RN - 07/25/2015 16:45 COLOR STRAINER Source: [employer] Document Id: [id number] COLOR STRAINER!13 R STRAINER Carlin Hubbard R.N. - 07/25/2015 2:53 PM CST ED Nurse Reassess ED Nurse Reassess Entered On: 07/25/2015 14:54 COLOR STRAINER Performed On: 07/25/2015 14:53 COLOR STRAINER by CARLIN HUBBARD RN Pain Assessment Pain Symptoms : Yes CARLIN HUBBARD RN - 07/25/2015 14:53 COLOR STRAINER Pain Scale Pain Scale Verbal 0-10 : Open CARLIN HUBBARD RN - 07/25/2015 14:53 COLOR STRAINER Pain Pain Assessment Grid Pain 1 Location : Head Laterality : Bilateral Intensity : 6 Quality : Aching CARLIN HUBBARD RN - 07/25/2015 14:53 COLOR STRAINER Comfort Measures Comfort Measures Grid Positioning : Yes Quiet Environment : Yes CARLIN HUBBARD RN - 07/25/2015 14:53 COLOR STRAINER Resp Reassess Respiratory Patient Stated Symptoms : None CARLIN HUBBARD RN - 07/25/2015 14:53 COLOR STRAINER CV Reassess CV Patient Stated Symptoms : None CARLIN HUBBARD RN - 07/25/2015 14:53 COLOR STRAINER Neuro Reassess Last Well Time Known : Not applicable Orientation : Oriented x 3 Characteristics of Speech : Clear Level of Consciousness : Alert Neuro Patient Stated Symptoms : Headache CARLIN HUBBARD RN - 07/25/2015 14:53 COLOR STRAINER GI Reassess GI Patient Stated Symptoms : Nausea CARLIN HUBBARD RN - 07/25/2015 14:53 COLOR STRAINER Source: [employer] Document Id: [id number] COLOR STRAINER!28 R STRAINER Jalyn Sanchez R.N. - 07/25/2015 2:06 PM CST ED Treatments and Procedures ED Treatments and Procedures Entered On: 07/25/2015 14:08 COLOR STRAINER Performed On: 07/25/2015 14:06 COLOR STRAINER by JALYN SANCHEZ RN Peripheral IV Peripheral IV Assess/Intervention Grid Peripheral IV #1 IV Activity : Start Number of Attempts : 5 Date of Insertion : 07/25/2015 COLOR STRAINER IV Site : Antecubital Laterality : Left Catheter Size : 20 Catheter Type : Over the needle Site Condition : No complications Drainage Description : None Primary Tubing Changed : 07/25/2015 COLOR STRAINER JALYN SANCHEZ RN - 07/25/2015 14:06 COLOR STRAINER Source: [employer] Document Id: [id number] COLOR STRAINER!14 R STRAINER Kyler Khanna M.D. - 07/25/2015 1:04 PM CST Headache Patient: NAZ CHAKRABORTY Age: 20 years Sex: Female : 1995 Author: KYLER KHANNA MD Attachments: None Associated Diagnosis: Migraine Headache (WHITE) NOS Basic Information Additional information: Chief Complaint from Nursing Triage Note : Chief Complaint Description 07/25/2015 12:50 COLOR STRAINER Chief Complaint Description Patient states, I have a migraine. Onset was 0100, she has taken Codiene x2 with no pain relief. Also is nauseated. Rates pain 03/25. States she has hx of Migraines and if she isn't able to control it at home she goes to ER. . History of Present Illness The patient presents with migraine. The onset was 0100 this AM. The course/duration of symptoms isconstant. Location: Left retro-orbital. Radiating pain: none. The character of symptoms is sharp andpressure. The degree at onset was severe. The degree at maximum was severe. The degree at present issevere. There are exacerbating factors including light and noise. There are relieving factors including none and failed Tylenol #3 x 2. Risk factors consist of History of migraine headaches - negative head CT in past. Prior episodes: occasional. Preceding symptoms: visual disturbance. Associated symptoms: nausea. Review of Systems Constitutional symptoms: Negative except [...] symptoms: Negative except as documented in HPI. Psychiatric symptoms: Negative except as documented in HPI. Additional review of systems information: All other systems reviewed and otherwise negative. Health Status Allergies: Allergic Reactions (Selected) NKA. Past Medical/ Family/ Social History Medical history: Reviewed as documented in chart. Surgical history: No active procedure history items have been selected or recorded.. Family history: No family history items have been selected or recorded.. Physical Examination Vital Signs: Vital Signs 07/25/2015 12:50 COLOR STRAINER Temperature Core 36.4 DegC LOW Peripheral Pulse Rate 85 /min Respiratory Rate 16 /min SpO2 96 % Systolic Blood Pressure 132 mmHg Diastolic Blood Pressure 87 mmHg Mean Arterial Pressure 102 mmHg BP Location Left upper , Measurements 07/25/2015 12:50 COLOR STRAINER Height 163 cm Height Source Estimated Dosing Weight 70.00 kg NA Estimated Weight 70 kg , SpO2 07/25/2015 12:50 COLOR STRAINER SpO2 96 % . General: Alert and moderate distress. Skin: Warm, intact and moist. Head: Normocephalic. Neck: Supple. Eye: Pupils are equal, round and reactive to light and vision grossly normal. Ears, nose, mouth and throat: Tympanic membranes clear and oral mucosa moist. Cardiovascular: Regular rate and rhythm. Respiratory: Lungs are clear to auscultation. Neurological: Alert and oriented to person, place, time, and situation, No focal neurological deficit observed, CN II-XII intact, normal sensory observed, normal motor observed, normal speech observed and normal coordination observed. Psychiatric: Cooperative. Medical Decision Making OrdersLaunch Orders Laboratory: CBC (includes Auto Differential) (Order Processing): Stat, 07/25/2015 13:05 COLOR STRAINER, Once Basic Metabolic Panel (Order Processing): Stat, 07/25/2015 13:05 COLOR STRAINER, Once Patient Care: ED Peripheral IV Careset (Order Processing) Peripheral IV (Order Processing): 07/25/2015 13:06 COLOR STRAINER, Initial Line Pharmacy: Zofran (Order Processing): 4 mg, IV Push, Once Saline bolus (Order Processing): 1,000 mL, IVPB, Once Imitrex (Order Processing): 50 mg, PO, Once. Results review:Lab results : Lab View 07/25/2015 13:30 COLOR STRAINER Hgb 15.7 g/dL HI Hct 47.4 % HI WBC 6.4 x10(9)/L RBC 5.39 x10(12)/L HI MCV 87.9 fL RDW 13.3 % Platelet 251 x10(9)/L Neutro Absolute 2.97 10(9)/L Lymph Absolute 2.61 x10(9)/L [place] Absolute 0.69 x10(9)/L Eos Absolute 0.10 x10(9)/L Baso Absolute 0.03 x10(9)/L Differential? Auto Sodium Lvl 138 mmol/L Potassium Lvl 4.4 mmol/L Chloride 100 mmol/L CO2 25 mmol/L AGAP 13 mmol/L Glucose Lvl 121 mg/dL Creatinine 1.1 mg/dL EGFR (MDRD) >60.0 mL/min/SA EGFR (MDRD) >60.0 mL/min/SA BUN 11 mg/dL Calcium Lvl 9.6 mg/dL . Impression and Plan Diagnosis Migraine Headache (WHITE) NOS (Discharge, Emergency medicine, Medical) Plan Condition: Improved. Disposition: Discharged: Time 07/25/2015 15:32:00, to home. Prescriptions: Prescription [facility] Pharmacy: [facility] 4 mg oral tablet, disintegrating (Prescribe): 4 mg, 1 tab(s), PO, q8hr, PRN: Nausea, 10 tab(s), 0 Refill(s) Imitrex 50 mg oral tablet (Prescribe): 50 mg, 1 tab(s), PO, As Directed, Take 1 tablet at onset of headache. Repeat after two hours if needed., PRN: Migraine headache, 9 tab(s), 5 Refill(s). Patient was given the following educational materials: HEADACHE, Migraine (Classical). Follow up with: KALEE MORENO Within 7 - 10 days, only if needed. Counseled: Patient, Regarding diagnosis, Regarding treatment plan, Regarding prescription, Patient indicated understanding of instructions. Orders: Launch Orders Patient Care: Discharge ED Patient (Order Processing): 07/25/2015 15:34 COLOR STRAINER, Once. Electronically Signed By: KYLER KHANNA MD On: 07/25/2015 03:37 PM Modified by and Electronically Signed by: KYLER KHANNA MD On: 07/25/2015 03:37 PM Source: [facility] POWERCHART Document Id: [id number]} R STRAINER Brenda Castano, R.N. - 07/25/2015 12:50 PM CST ED Primary Assessment Document Has Been Updated ED Primary Assessment Entered On: 07/25/2015 12:56 COLOR STRAINER Performed On: 07/25/2015 12:50 COLOR STRAINER by BRENDA CASTANO RN Reason For Visit (As Of: 07/25/2015 12:56:45 COLOR STRAINER) Diagnoses(Active) Headache Date: 07/25/2015 ; Diagnosis Type: Reason For Visit ; Confirmation: Complaint of ; ClinicalDx: Headache ; Classification: Medical ; Clinical Service: Emergency medicine ; Code: PNED ; Probability: 0 ; Diagnosis Code: [id number] Triage Chief Complaint Description : Patient states, I have a migraine. Onset was 0100, she has taken Codiene x2 with no pain relief. Also is nauseated. Rates pain 03/25. States she has hx of Migraines and if she isn't able to control it at home she goes to ER. Information Given By : Patient Accompanied By : Alone Mode of Arrival ED : Private vehicle Track : Medical Languages : Libyan Vital Signs Assessed : Yes Treatments Prior to Arrival : None Are you ? : No Is Patient Female and 13-50 no hysterectomy : Yes Status : Patient denies BRENDA CASTANO RN - 07/25/2015 12:50 COLOR STRAINER Vital Signs Temperature Core : 36.4 DegC(Converted to: 97.5 DegF) (LOW) Peripheral Pulse Rate : 85 /min Respiratory Rate : 16 /min Systolic Blood Pressure : 132 mmHg Diastolic Blood Pressure : 87 mmHg NIBP Mean : 102 mmHg BP Location : Left upper extremity SpO2 : 96 % Oxygen Saturation Monitoring Frequency : Intermittent Oxygen Therapy : Room air Height : 163 cm(Converted to: 5 ft 4 inch(es)) Height Source : Estimated Estimated Weight : 70 kg Estimated Weight Conversion to Pounds : 154 lb BRENDA CASTANO RN - 07/25/2015 12:50 COLOR STRAINER Pain Assessment Pain Symptoms : Yes BRENDA CASTANO RN - 07/25/2015 12:50 COLOR STRAINER Pain Scale Pain Scale Verbal 0-10 : Open BRENDA CASTANO RN - 07/25/2015 12:50 COLOR STRAINER Pain Pain Assessment Grid Pain 1 Location : Head Laterality : Left Intensity : 10 Time Pattern : Constant Quality : Aching, Pressure, Throbbing Aggravating Factors : Other: Lying down Alleviating Factors : None Associated Symptoms : Nausea Interventions : Rest BRENDA CASTANO RN - 07/25/2015 12:50 COLOR STRAINER Comfort Measures Comfort Measures Grid Quiet Environment : Yes Relaxation : Yes Rest : Yes BRENDA CASTANO CASH - 07/25/2015 12:50 COLOR STRAINER Comfort Measures Response : Comfort level increased BRENDA CASTANO CASH - 07/25/2015 12:50 COLOR STRAINER ANA ANA Level 1 : No ANA Level 2 : No ANA Level 3 : One BRENDA CASTANO CASH - 07/25/2015 12:50 COLOR STRAINER DCP GENERIC CODE Tracking Acuity : 4 -Less Urgent Tracking Group : MAQN ED BRENDA CASTANO CASH - 07/25/2015 12:50 COLOR STRAINER Allergy (As Of: 07/25/2015 12:56:45 COLOR STRAINER) Allergies (Active) NKA Estimated Onset Date: Unspecified ; Created By: ERIC LOPEZ RN; Reaction Status: Active ; Substance: NKA ; Type: Allergy ; Updated By: ERIC LOPEZ RN; Reviewed Date: 07/25/2015 12:55 COLOR STRAINER ID Screen Drug Resistant Organism : No Travel Within Last 21 Days : No Contact with someone with Ebola : No ARUNBRENDA Katherine CASTREJON - 07/25/2015 12:50 COLOR STRAINER TB Symptoms Grid Bloody Sputum : No Fatigue : No Fever : No Loss of Appetite : No Night Sweats : No Persistent Cough Greater Than 3 Weeks : No Weight Loss : No ARUNBRENDA Katherine CASTREJON - 07/25/2015 12:50 COLOR STRAINER Immunizations Influenza : None ARUN BRENDABARB Murphy RN 07/25/2015 12:50 COLOR STRAINER Respiratory Airway : Patent Respirations : Unlabored Respiratory Pattern : Regular AURABRENDA Cam Katherine CASTREJON - 07/25/2015 12:50 COLOR STRAINER Cardiovascular Heart Rhythm : Regular Skin Color : [place] Skin Description : Normal Skin Temperature : Warm BRENDA CASTANO Katherine CASTREJON - 07/25/2015 12:50 COLOR STRAINER Neurological Last Well Time Known : Not applicable Level of Consciousness : Alert Orientation : Oriented x 3 Characteristics of Speech : Clear TATIANNAOANHBRENDA Cam Katherine CASTREJON - 07/25/2015 12:50 COLOR STRAINER ED Psychosocial Affect/Behavior : Calm, Cooperative, Appropriate Domestic Abuse Concerns : None Behavioral Health Screen/Safety Assmt : No ARUNBRENDA Katherine CASTREJON - 07/25/2015 12:50 COLOR STRAINER Gastrointestinal Nutrition ED : Adequate ARUN BRENDABARB Murphy RN - 07/25/2015 12:50 COLOR STRAINER Musculoskeletal Fall Prevention Education Provided : Yes ARUN BRENDABARB Murphy RN - 07/25/2015 12:50 COLOR STRAINER Social Habits Smoking Status : Current every day smoker Tobacco 2A : Yes Tobacco Use/Currently Using : Yes Tobacco Use/Last 30 Days : Yes Tobacco Use/Last 12 months : Yes Type : Cigarettes: Less than 20 per day Tobacco Use/Advised to Quit : Yes BRENDA CASTANO RN - 07/25/2015 12:50 COLOR STRAINER Alcohol Use Grid Alcohol Use : Yes Frequency : Weekly BRENDA CASTANO RN - 07/25/2015 12:50 COLOR STRAINER Recreational Drug Use Grid Drug Use : None BRENDA CASTANO RN - 07/25/2015 12:50 COLOR STRAINER Source: [facility] [employer] Document Id: [id number] COLOR STRAINER!108 R STRAINER documented in this encounter Miscellaneous Notes Miscellaneous - Brenda Castano R.N. - 07/25/2015 3:45 PM CST Valuables/Belongings Valuables/Belongings Entered On: 07/25/2015 16:40 COLOR STRAINER Performed On: 07/25/2015 15:45 COLOR STRAINER by BRENDA CASTANO RN Valuables/Belongings Belongings Sent Home With : All sent with patient at discharge. Home Medication Disposition : None brought in with patient BRENDA CASTANO RN - 07/25/2015 16:37 COLOR STRAINER Source: [facility] Document Id: [id number] COLOR STRAINER!4 R STRAINER Miscellaneous - Conversion, Historical Provider Ser - 07/25/2015 3:45 PM COLOR STRAINER Coding Summary-Paper Based CODING DATE: 08/03/2015 FINAL [facility] STATUS: * Discharged to Home or Self Care PAYOR: [employer] ADMIT DX: G43.909 Migraine, unspecified, not intractable, without status migrainosus REASON FOR VISIT DX: G43.909 Migraine, unspecified, not intractable, without status migrainosus FINAL DX: PRINCIPAL: G43.909 Migraine, unspecified, not intractable, without status migrainosus SECONDARY: F17.210 Nicotine dependence, cigarettes, uncomplicated PROCEDURES DOCTOR NAME DATE NOTE: The code number assigned matches the documented diagnosis and / or procedure in the patient's chart. However, the narrative phrase printed from the coding software may appear abbreviated, or result in slightly different terminology. Coded By: JHONY YANEZ Date Saved: 08/03/2015 09:00 am Source: [facility] [employer] Document Id: [id number] Miscellaneous - Brenda Castano RDarioN. - 07/25/2015 12:43 PM CST Facility Charge Ticket 2.0 11.0 DX Facility Charge Ticket 2.0 11.0 DX Entered On: 07/25/2015 16:42 COLOR STRAINER Performed On: 07/25/2015 12:43 COLOR STRAINER by BRENDA CASTANO RN Facility Charge Ticket 2.0 11.0 DX ED Other Charges : Standard ED Encounter TVL Level Translated RTF : Headache TVL:4 TVL Level for Facility Charge Ticket : Level 4 Arrival Mode Calc : 1 Mode of Arrival ED : Private vehicle [facility] Mode of Arrival Interpreted : Standard [facility] Process Management : None Order Management RTF : Laboratory Basic Metabolic Panel,07/25/15 13:05,KYLER KHANNA MD Completed CBC (includes Auto Differential),07/25/15 13:05,KYLER KHANNA MD Completed Automated Diff-5 Part,07/25/15 13:35,KYLER KHANNA MD Completed [facility] Order Management : Lab tests 30 Minutes Critical Care : No Nursing Notes RTF : Nursing Notes ED Primary Assessment,07/25/15 12:50,BRENDA CASTANO FORKLIFT MECHANIC Nurse Reassess,07/25/15 15:57,BRENDA CASTANO [employer]KLIFT MECHANIC Nurse Reassess,07/25/15 14:53,CARLIN HUBBARD RN [facility] Nursing Assessment : Triage and 1-2 nursing assessments [facility] Disposition : Discharge Disposition RTF : discharge [facility] Total Points with Diagnosis Control : 8 [facility] Visit Level : 19994 Level 4 Treatments Prior to Arrival : None BRENDA CASTANO RN - 07/25/2015 16:40 COLOR STRAINER Source: [facility] [employer] Document Id: [id number] COLOR STRAINER!19 R STRAINER documented in this encounter Plan of Treatment Upcoming Encounters Date Type Specialty Care Team Description 05/23/2022 Telemedicine Endocrinology Arely Bond M.B., B.Ch. [address] [place] [address] [phone] (Wo rk) documented as of this encounter Procedures Procedure Name Priority Date/Time Associated Diagnosis Comme nts AUTOMATED Routine 07/25/2015 1:30 PM Results f or this DIFFERENTIAL, B COLOR STRAINER procedure ar e in the results section. CBC WITH Routine 07/25/2015 1:30 PM Results f or this DIFFERENTIAL, B COLOR STRAINER procedure ar e in the results section. BASIC METABOLIC Routine 07/25/2015 1:30 PM Result s for this PANEL, S/P COLOR STRAINER procedure are i n the results section. documented in this encounter Results Automated Differential (07/25/2015 1:30 PM COLOR STRAINER) P athologist Signature Absolute 2.97 1.70 - POWERCHART Neutrophils 7.00 109L Lymphocytes 2.61 0.90 - POWERCHART 2.90 X109L Monocytes 0.69 0.30 - POWERCHART 0.90 X109L Eosinophils 0.10 0.05 - POWERCHART 0.50 X109L Absolute 0.03 0.00 - POWERCHART Basophil 0.30 X109L Specimen Anatomical Collection Method Collection Time Receive d Time (Source) Location / / Volume Laterality Blood 07/25/2015 1:30 PM 6 1:30 COLOR STRAINER PM COLOR STRAINER Kyler Khanna M.D. LAB BLOOD ADD-ON Performing Organization Address City/State/ZIP Code Phon e Number POWERCHART (ABNORMAL) CBC with Differential (07/25/2015 1:30 PM COLOR STRAINER) Patholo gist Method Time Signature Leukocytes 6.4 3.5 - 10.5 POWERCHART X109L Erythrocytes 5.39 (H) 3.90 - POWERCHART 5.03 V1988V Hemoglobin 15.7 (H) 12.0 - POWERCHART 15.5 GDL Hematocrit 47.4 (H) 34.9 - POWERCHART 44.5 MCV 87.9 81.6 - POWERCHART 98.3 FL HX RDW 13.3 11.9 - POWERCHART 15.5 Platelet Count 251 150 - 450 POWERCHART X109L HXDifferential? Auto POWERCHART Specimen (Source) Anatomical Collection Method Collection Time Re ceived Time Location / / Volume Laterality Blood 07/25/2015 1:30 PM COLOR STRAINER Kyler Khanna M.D. LAB BLOOD ADD-ON Performing Organization Address City/State/ZIP Code Phon e Number POWERCHART BMP (Basic Metabolic Panel) (07/25/2015 1:30 PM COLOR STRAINER) P athologist Signature Sodium, S 138 135 - 145 POWERCHART MMOLL Potassium, S 4.4 3.5 - 5.1 POWERCHART MMOLL Chloride, S 100 98 - 107 POWERCHART MMOLL CO2 Total 25 22 - 29 POWERCHART MMOLL BUN (Blood Urea 11 6 - 24 MGDL POWERCHART Nitrogen), S Creatinine 1.1 0.6 - 1.1 POWERCHART MGDL Calcium, Total, 9.6 8.6 - 10.3 POWERCHART S MGDL Anion Gap 13 7 - 15 MMOLL POWERCHART HXeGFR (MDRD) >60.0 >=60.0 POWERCHART MLMINSA eGFR >60.0 >=60.0 POWERCHART Black/ MLMINSA Swiss Glucose 121 70 - 140 POWERCHART MGDL Specimen (Source) Anatomical Collection Method Collection Time Re ceived Time Location / / Volume Laterality Blood 07/25/2015 1:30 PM COLOR STRAINER Kyler Khanna M.D. LAB BLOOD ADD-ON Performing Organization Address City/State/ZIP Code Phon e Number POWERCHART documented in this encounter Visit Diagnoses Not on filedocumented in this encounter
--- OUTSIDE RECORDS SUMMARY | 2022-04-12 08:15 | XMS_ITS | Encounter Summary ---
:1995 Author Organization [facility] Address [address] [place] [id number] Care Team Providers Name Role Phone Unavailable Primary Care Provider Unavailable Encounter Details Date Type Department Care Team Description 09/29/2015 Hospital Encounter HX [facility] ED Ama Sanders D .O. Social History Tobacco Use [...] 03/20/2022 relatives? How often do you attend mandaen or baptist services? Never 03/20/2022 Do you belong to any clubs or organizations such as No 03/20/2022 mandaen groups, unions, fraternal or athletic groups, or [...] Reading Time Taken Comments Blood Pressure 119/81 09/29/2015 10:11 PM CDT Pulse 58 09/29/2015 10:11 PM CDT Temperature - - Respiratory Rate 16 09/29/2015 10:11 PM CDT Oxygen Saturation - - Inhaled Oxygen Concentration - - Weight 73.3 kg (161 lb 9.6 oz) 09/29/2015 8:35 PM CDT Height 163 cm (5' 4.17) 09/29/2015 10:11 PM CDT Body Mass Index 27.59 09/29/2015 8:35 PM CDT documented in this encounter Discharge Summaries Nadja Jean R.N. - 09/30/2015 12:40 AM CDT ED Discharge Instructions [address] [address] Name: NAZ CHAKRABORTY Date of : 1995 12:00 PM Visit Date: 09/29/2015 8:27 PM [facility] Number: [id number] Address: [address] [place] [phone] Primary Care Provider: KALEE MORENO MD IMPORTANT: [facility] would like to thank you for allowing us to assistyou with your healthcare needs. The following includes patient education materials and information regarding your injury/illness. Diagnosis: Injury Head Initial Follow-Up Instructions: With: Address: When: KALEE MORENO [address] [place] [id number] Business (1) Within 3 - 5 days Comments: For altered mental status, pain out of control at home, repeated episdoes of vomiting or further concerns, return to the ER Your Upcoming Appointments: Date Time Location Provider No Appointments found Patient Education Materials: Head Injury, No Wake-Up (Adult) You have had a head injury. It does not appear serious at this time. Symptoms of a more serious problem (concussion, bruising, or bleeding in the brain) may appear later. Therefore, watch for the WARNING SIGNS listed below. Home Care: ?? Your healthcare provider will tell you [...] the swelling starts to go down. ?? Do not use aspirin or ibuprofen (Motrin, Advil) after a head injury. You may use acetaminophen (Tylenol) to control pain, unless another pain medicine was prescribed. [NOTE: If you have chronic liver or kidney disease or ever had a stomach ulcer or GI bleeding, talk with your doctor before using these medicines.] ?? For the next 24 hours: ?? Do not take alcohol, sedatives or medicines that make you sleepy. ?? Avoid strenuous activities. No lifting or straining. [...] one can lead to serious brain injury. Follow Up with your doctor if symptoms are not improving after 24 hours, or as directed. [NOTE: A radiologist will review any X-rays or CT scans that were taken. We will notify you of any new findings that may affect your care.] Get Prompt Medical Attention if any of the following WARNING SIGNS occur: ?? Repeated vomiting ?? Severe or worsening headache or dizziness ?? Unusual drowsiness, or unable to awaken as usual ?? Confusion or change in behavior or speech, memory loss, blurred vision ?? Convulsion (seizure) ?? Increasing scalp or face swelling ?? Redness, warmth or pus from the swollen area ?? Fluid drainage or bleeding from the nose or ears ?? [phone] [facility], [address] [place] [address]. All rights reserved. This information is not [...] if you dont have one. Go to [email or web address] and click on Create Your Account. Then, follow the directions to complete the online form. Youll be asked for your [facility] number which you can find at the top of this document. ED Tests and Procedures: Order Status Discharge Prescriptions & Home Medications: Medication/Strength Dose Route Frequency Indications/Special Instructions/Comments/Notes cyclobenzaprine (Flexeril 10 mg oral tablet) 10 mg Oral three times a day as needed for Muscle spasm acetaminophen (Tylenol Extra Strength 500 mg oral tablet) 1,000 mg Oral every 6 hours as needed for pain Misc Prescription (Misc Prescription) migraine prevention medication, daily. Misc Prescription (Misc Prescription) See Instructions testoterone--100 mg per week--(has been taking past 6 months) Attention: If you have any medications [...] responsible alliance party. DAVION Domingo KALLIE MARIE or responsible alliance party have received this information and my questions have been answered. I have discussed any challenges I see with this plan with the nurse or physician. Patient Signature or Responsible Republican/Relationship Date Time Provider Signature Date Time This document has images extracted. Please consider using [employer] for all your patient education needs. Source: [employer] Document Id: [id number] Nadja Jean R.N. - 09/30/2015 12:40 AM CDT ED Depart Summary [facility] Emergency Department Clinical Discharge Summary PERSON INFORMATION Name NAZ CHAKRABORTY Age 20 Years 1995 12:00 PM Sex Female Language Estonian PCP KALEE MORENO MD Marital Status Single Visit Id Visit Reason Closed head injury without LOC; FELL AND HIT HER HEAD Specialty Enc Type Emergency Med Service Emergency Medicine Referred by Track Group MAQN ED Discharge 09/29/2015 11:33 PM Tracking Id [id number] Checkout 09/29/2015 11:33 PM Checkin 09/29/2015 8:27 PM Acuity 4 -Less Urgent Dispo Type * Discharged to Home or Self Care Arrival 09/29/2015 8:27 PM Reg Status LOS 000 03:06 Address: [address] [place] [address] [phone] Comment: PROVIDER INFORMATION Provider Role Provider Contact Time ZENAIDA SIDHU CRATE MAKER Nurse 09/29/15 20:41 NADJA JEAN CRATE MAKER Nurse 09/29/15 22:19 AMA SANDERS DO ED Provider 09/29/15 22:57 DIAGNOSIS Injury Head Initial Comment: PATIENT EDUCATION INFORMATION Instructions: HEAD INJURY, No Wake-Up (Adult) Follow up: With: Address: When: KALEE MORENO [address] [place] [id number] Business (1) Within 3 - 5 days Comments: For altered mental status, pain out of control at home, repeated episdoes of vomiting or further concerns, return to the ER Source: [facility] POWERCHART Document Id: [id number] documented in this encounter Medications at Time [...] by 0 015 500 mg tablet mouth. [facility] Prescription [facility] Prescription See 0 016 03/20/2022 (Allergy Immunotherapy) Instructions, testoterone--80 mg IM per week--(has been taking past 8 months) traZODone (DESYREL) 100 Take 1 tablet by 0 201412/01/2019 mg tablet mouth. traZODone (DESYREL) 100 Take 1 tablet by 0 201403/20/2022 mg tablet mouth at bedtime. documented as of this encounter ED Notes Nadja Jean R.N. - 09/29/2015 11:33 PM CDT ED Disposition Summary ED Disposition Summary Entered On: 09/30/2015 0:35 CDT Performed On: 09/29/2015 23:33 CDT by NADJA JEAN CRATE MAKER Disposition Summary Present in Room During Exam/Procedure : Alone Mode of Discharge : Ambulatory Transportation : Private vehicle Printed Discharge Instructions Given to Patient : Yes Patient Status at Discharge from ED : Improved Comment : Has a ride coming to pick her up. NADJA JEAN RN - 09/30/2015 0:33 CDT Source: [facility] POWERCHART Document Id: [id number] CDT!8 Nadja Jean R.N. - 09/29/2015 11:33 PM CDT ED Education ED Education Entered On: 09/30/2015 0:39 CDT Performed On: 09/29/2015 23:33 CDT by NADJA JEAN RN Education ED Education Grid Topics : Discharge instructions/Medication list, Pain management, When to call health care provider Individuals Taught : Patient Barriers to Learning : None evident Teaching Method : Explanation, Printed materials Teaching Evaluation : Verbalizes understanding NADJA JEAN RN - 09/30/2015 0:35 CDT [facility] Document Id: [id number] CDT!9 Ama Sanders D.O. - 09/29/2015 11:16 PM CDT Closed head injury without LOC Patient: NAZ CHAKRABORTY Age: 20 years Sex: Female : 1995 Author: AMA SANDERS DO Attachments: None Associated Diagnosis: Injury Head Initial Basic Information Additional information: Chief Complaint from Nursing Triage Note : Chief Complaint Description 09/29/2015 20:35 CDT Chief Complaint Description Pt presents stating she was on a zipline and fell off. It was at approximately 8 feet. She doesn't remember falling--but states someone was with and told her she didn't fall right onto her head. She c/o left head, left neck, left chest in a pinpoint lo . History of Present Illness The patient presents with head injury. The onset was 3 hours ago. Type of injury: fall. The character of symptoms is pain and ecchymosis. Loss of consciousness none. Location: Posterior occipital. The course/duration of symptoms is constant. The location where the incident occurred was at home. Risk factors consist of not anticoagulated. Prior episodes: occasional. Therapy today: none. Associated symptoms: nausea, headache, neck pain, dizziness, denies vomiting, denies altered vision, denies alteredspeech, denies altered coordination, denies focal weakness, denies confusion and denies lethargy. Pt fell off a zipline, denies LOC, but doesn't remember the fall. She didn't fall directly on her head. She has pain in her left forearm and bilateral SCM. No numbness, tingling or vomiting. After, shefelt nauseated. She felt lightheaded. She has a history of concussion in the past Review of Systems Constitutional symptoms: Negative except [...] recorded.. Physical Examination Vital Signs: Vital Signs 09/29/2015 22:11 CDT Temperature Core 36.5 DegC Peripheral Pulse Rate 58 /min LOW Respiratory Rate 16 /min SpO2 97 % Systolic Blood Pressure 119 mmHg Diastolic Blood Pressure 81 mmHg BP Location Right upper 09/29/2015 20:35 CDT Temperature Core 37.0 DegC Peripheral Pulse Rate 69 /min SpO2 96 % Systolic Blood Pressure 138 mmHg Diastolic Blood Pressure 98 mmHg >HHI Mean Arterial Pressure 111 mmHg , Measurements 09/29/2015 22:11 CDT Height 163 cm 09/29/2015 20:35 CDT Height 163 cm Dosing Weight 73.30 kg Actual Weight 73.3 kg Weight Source Standing scale Body Mass Index 27.59 kg/m2 , SpO2 09/29/2015 22:11 CDT SpO2 97 % 09/29/2015 20:35 CDT SpO2 96 % . General: Alert and no acute distress. Skin: Warm and dry. Head: Normocephalic and ecchymosis on posterior left parietal area. no hematoma. Neck: Supple and tenderness over bilateral SCMs, but no midline tenderness or step offs in c/t/l spine. Eye: Pupils are equal, round and reactive to light and extraocular movements are intact. Ears, nose, mouth and throat: Tympanic membranes clear, oral mucosa moist and no pharyngeal erythemaor exudate. Cardiovascular: Regular rate and rhythm, No murmur and Normal peripheral perfusion. Respiratory: Lungs are clear to auscultation, respirations are non-labored and breath sounds are equal. Gastrointestinal: Soft, Nontender and Non distended. Musculoskeletal: Normal ROM. normal strength. pt has pain over mid 1/3 of left ulna. no ecchymosis or swelling. Full ROM of wrist and elbow. Pt states that her thumb and pointer finger have a paresthesia, but +2/4 radial pulse and motor function is intact through radial, ulnar and median nerves. Neurological: Alert and oriented to person, place, time, and situation, No focal neurological deficit observed, CN II-XII intact, normal sensory observed, normal motor observed, normal speech observed and normal coordination observed. Psychiatric: Cooperative. Medical Decision Making Differential Diagnosis:Head injury, concussion, neck injury, post concussive syndrome. Documents reviewed:Emergency department nurses' notes. Notes:Pt evaluated. Offered Ct, but did discuss that she has no high risk features for neurologic intervention based on [place] islander head CT rule. She declined the head CT and x ray of her forearm. head injury precautions, return precautions explained and understood by pt who was agreeable with plan. Asked for work note thorugh the weekend which was given.. Impression and Plan Diagnosis Injury Head Initial (Discharge, Medical) Plan Condition: Stable. Disposition: Discharged: to home. Prescriptions: Prescription Care Asst Pharmacy: Flexeril 10 mg oral tablet (Prescribe): 10 mg, 1 tab(s), PO, 3xDay, for 10 day(s), PRN: Muscle spasm, 30 tab(s), 0 Refill(s) Tylenol Extra Strength 500 mg oral tablet (Prescribe): 1,000 mg, 2 tab(s), PO, q6hr, PRN: pain, 50 tab(s), 0 Refill(s). Patient was given the following educational materials: HEAD INJURY, No Wake-Up (Adult). Follow up with: KALEE MORENO Within 3 - 5 days For altered mental status, pain out of control at home, repeated episdoes of vomiting or further concerns, return to the ER. Counseled: Patient, Regarding diagnosis, Regarding diagnostic results, Regarding treatment plan, Regarding prescription, Patient indicated understanding of instructions. Electronically Signed By: AMA SANDERS DO On: 09/30/2015 12:57 AM Modified by and Electronically Signed by: AMA SANDERS DO On: 09/30/2015 12:57 AM [facility] Document Id: [id number]} Nadja Jean R.N. - 09/29/2015 10:12 PM CDT ED Nurse Reassess ED Nurse Reassess Entered On: 09/29/2015 22:13 CDT Performed On: 09/29/2015 22:12 CDT by NADJA JEAN RN Pain Assessment Pain Symptoms : Yes NADJA JEAN RN - 09/29/2015 22:12 CDT Pain Scale Pain Scale Verbal 0-10 : Open NADJA JEAN RN - 09/29/2015 22:12 CDT Pain Pain Assessment Grid Pain 1 Pain 2 Pain 3 Location : Head Neck Lower arm Laterality : Left Intensity : 5 5 9 NADJA JEAN RN - 09/29/2015 22:12 CDT NADJA JEAN RN - 09/29/2015 22:12 CDT NADJA JEAN RN - 09/29/2015 22:12 CDT Comfort Measures Comfort Measures Grid Cold Therapy : Yes Comfortable Environment : Yes Rest : Yes NADJA JEAN RN - 09/29/2015 22:12 CDT Patient Response : Pt roomed at this time. NADJA JEAN RN - 09/29/2015 22:12 CDT Resp Reassess Respiratory Patient Stated Symptoms : None NADJA JEAN RN - 09/29/2015 22:12 CDT CV Reassess CV Patient Stated Symptoms : None NADJA JEAN RN - 09/29/2015 22:12 CDT Source: [employer] Document Id: [id number] CDT!27 Zenaida Sidhu R.N. - 09/29/2015 9:54 PM CDT ED Nurse Reassess ED Nurse Reassess Entered On: 09/29/2015 21:55 CDT Performed On: 09/29/2015 21:54 CDT by ZENAIDA SIDHU RN Pain Assessment Pain Symptoms : Yes ZENAIDA SIDHU RN - 09/29/2015 21:54 CDT Comfort Measures Patient Response : Pt is sitting in the lobby, talking on the phone. ZENAIDA SIDHU RN - 09/29/2015 21:54 CDT [facility] Document Id: [id number] CDT!5 Zenaida Sidhu R.N. - 09/29/2015 9:30 PM CDT ED Nurse Reassess ED Nurse Reassess Entered On: 09/29/2015 21:55 CDT Performed On: 09/29/2015 21:30 CDT by ZENAIDA SIDHU RN Pain Assessment Pain Symptoms : Yes ZENAIDA SIDHU RN - 09/29/2015 21:55 CDT Comfort Measures Patient Response : Pt is sitting in the lobby. ZENAIDA SIDHU RN - 09/29/2015 21:55 CDT Source: [employer] Document Id: [id number] CDT!5 Zenaida Sidhu R.N. - 09/29/2015 8:35 PM CDT ED Primary Assessment Document Has Been Updated ED Primary Assessment Entered On: 09/29/2015 20:40 CDT Performed On: 09/29/2015 20:35 CDT by ZENAIDA SIDHU RN Reason For Visit (As Of: 09/29/2015 21:01:47 CDT) Problems(Active) Dysphoria Gender Adolescent Or Adult (ICD-10-CM :F64.1 ) Name of Problem: Dysphoria Gender Adolescent Or Adult ; Recorder: FELI GROSS MD; Confirmation: Confirmed ; Classification: Medical ; Code: F64.1 ; Contributor System: [employer] ; Last Updated: 08/02/2015 3:41 [employer]REDDED [employer]ILL[employer]IG[employer]KER MACHINE ; Life Cycle Date: 2015 ; Life Cycle Status: Active ; Vocabulary: ICD-10-CM Migraine Headache (WHITE) NOS (ICD-10-CM :G43.909 ) Name of Problem: Migraine Headache (WHITE) NOS ; Recorder: FELI GROSS MD; Confirmation: Confirmed ; Classification: Medical ; Code: G43.909 ; Contributor System: [employer] ; Last Updated: 08/02/2015 3:41 [employer]REDDED F[employer] MAKER MACHINE ; Life Cycle Date: 08/02/2015 ; Life Cycle Status: Active ; Vocabulary: ICD-10-CM Diagnoses(Active) Closed head injury without LOC Date: 09/29/2015 ; Diagnosis Type: Reason For Visit ; Confirmation: Complaint of ; Clinical Dx: Closed head injury without LOC ; Classification: Medical ; Clinical Service: Emergency medicine ; Code: PNED ; Probability: 0 ; Diagnosis Code: [id number] Triage Chief Complaint Description : Pt presents stating she was on a zipline and fell off. It was at approximately 8 feet. She doesn't remember falling--but states someone was with and told her she didn't fall right onto her head. She c/o left head, left neck, left chest in a pinpoint lo (Comment: location, tingling in left arm. 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 She is concerned about this happening again. She is supposed to work tonight and wants to make sure she is cleared to work. [ZENAIDA SIDHU RN - 09/29/2015 20:58 CDT] ) ZENAIDA SIDHU RN - 09/29/2015 20:58 CDT Mode of Arrival ED : Private vehicle, Ambulatory Track : Medical Languages : Estonian Vital Signs Assessed : Yes Treatments Prior to Arrival : None Are you ? : No Is Patient Female and 13-50 no hysterectomy : Yes Status : Patient denies ZEANIDA SIDHU RN - 09/29/2015 20:35 CDT Vital Signs Temperature Core : 37.0 DegC(Converted to: 98.6 DegF) Peripheral Pulse Rate : 69 /min Systolic Blood Pressure : 138 mmHg Diastolic Blood Pressure : 98 mmHg (>HHI) NIBP Mean : 111 mmHg SpO2 : 96 % Height : 163 cm(Converted to: 5 ft 4 inch(es)) Actual Weight : 73.3 kg Actual Weight Conversion to Pounds : 161.26 lb Weight Source : Standing scale Body Mass Index : 27.59 kg/m2 ZENAIDA SIDHU 09/29/2015 20:35 CDT Pain Assessment Pain Symptoms : Yes ZENAIDA SIDHU 09/29/2015 20:35 CDT Pain Scale Pain Scale Verbal 0-10 : Open ZENAIDA SIDHU 09/29/2015 20:35 CDT Pain Pain Assessment Grid Pain 1 Pain 2 Pain 3 Location : Head Neck Hand Laterality : Left Left Intensity : 4 0 Comments (Comment: numbness [ZENAIDA SIDHU 09/29/2015 20:35 CDT] ) ZENAIDA SIDHU 09/29/2015 20:35 CDT ZENAIDA SIDHU RN 09/29/2015 20:35 CDT ZENAIDA SIDHU 09/29/2015 20:35 CDT ANA ANA Level 1 : No ANA Level 2 : No ANA Level 3 : One ZENAIDA SIDHU 09/29/2015 20:35 CDT DCP GENERIC CODE Tracking Group : [facility] ED Tracking Acuity : 4 -Less Urgent ZENAIDA SIDHU 09/29/2015 20:35 CDT Respiratory Airway : Patent Respirations : Unlabored Respiratory Pattern : Regular ZENAIDA SIDHU 09/29/2015 20:35 CDT Cardiovascular Heart Rhythm : Regular Skin Color : Normal for ethnicity Skin Description : Normal Skin Temperature : Warm ZENAIDA SIDHU 09/29/2015 20:35 CDT Neurological Last Well Time Known : Yes Last Known Well Time : 09/29/2015 19:30 CDT Level of Consciousness : Alert Orientation : Oriented x 3 Characteristics of Speech : Clear Neuro Patient Stated Symptoms : Dizziness, Tingling Gait : Steady Swallowing Difficulty/Aspiration Risk : None ZENAIDA SIDHU 09/29/2015 20:35 CDT ED Psychosocial Affect/Behavior : Calm, Cooperative Domestic Abuse Concerns : None Behavioral Health Screen/Safety Assmt : No ZENAIDA SIDHU 09/29/2015 20:35 CDT Gastrointestinal Nutrition ED : Adequate Nutrition ED Freetext : some nauea GI Detailed Assessment : Yes ZENAIDA SIDHU RN - 09/29/2015 20:35 CDT GI Detailed GI Patient Stated Symptoms : Nausea ZENAIDA SIDHU RN - 09/29/2015 20:35 CDT Musculoskeletal Fall Prevention Education Provided : Yes ZENAIDA SIDHU RN - 09/29/2015 20:35 CDT Social Habits Smoking Status : Current every day smoker Tobacco 2A : Yes Tobacco Use/Currently Using : Yes Tobacco Use/Last 30 Days : Yes Tobacco Use/Last 12 months : Yes Type : Cigarettes: Less than 20 per day Tobacco Use/Advised to Quit : Yes ZENAIDA SIDHU RN - 09/29/2015 20:35 CDT Alcohol Use Grid Alcohol Use : Yes Frequency : Weekly ZENAIDA SIDHU RN - 09/29/2015 20:35 CDT Recreational Drug Use Grid Drug Use : None ZENAIDA SIDHU RN - 09/29/2015 20:35 CDT Source: [employer] Document Id: [id number] CDT!3 documented in this encounter Miscellaneous Notes Miscellaneous - Nadja Jean R.N. - 09/29/2015 11:33 PM CDT Valuables/Belongings Valuables/Belongings Entered On: 09/30/2015 0:40 CDT Performed On: 09/29/2015 23:33 CDT by NADJA JEAN RN Valuables/Belongings Belongings Sent Home With : Pt discharged with all personal belongings Home Medication Disposition : None brought in with patient NADJA JEAN RN - 09/30/2015 0:40 CDT Source: [employer] Document Id: [id number] CDT!4 Miscellaneous - Conversion, Historical Provider Ser - 09/29/2015 11:33 PM CDT Coding Summary-Paper Based CODING DATE: 10/09/2015 [facility] DSC STATUS: * Discharged to Home or Self Care PAYOR: [facility] ADMIT DX: S09.90XAUnspecified injury of head, initial encounter REASON FOR VISIT DX: S09.90XA Unspecified injury of head, initial encounter FINAL DX: PRINCIPAL: S09.90XA Unspecified injury of head, initial encounter SECONDARY: F17.210 Nicotine dependence, cigarettes, uncomplicated W17.89XA Other fall from one level to another, initial encounter Y92.[address] in unspecified non-institutional (private) residence as the place of occurrence of the external cause PROCEDURES DOCTOR NAME DATE NOTE: The code number assigned matches the documented diagnosis and / or procedure in the patient's chart. However, the narrative phrase printed from the coding software may appear abbreviated, or result in slightly different terminology. Coded By: JOHN GRECO Date Saved: 10/09/2015 07:47 am [facility]: [facility] Document Id: [id number] Miscellluis - Ama Sanders D.O. - 09/29/2015 11:20 PM CDT Work Excuse September 29, 2015 NAZ CHAKRABORTY [address] [place] [address] [phone] Dear NAZ CHAKRABORTY, You were examined in my office on: 09/29/15 Reason for work excuse: Medical Illness ( _ ) Yes ( _ ) No Injury ( x ) Yes ( _ ) No Excuse from work 09/29/15-10/02/15, may return sooner if feeling better. Sincerely, AMA SANDERS [facility] [place], [place] [id number] Electronic Signature Electronically Signed By: AMA SANDERS DO On: September 29, 2015 This document has images extracted. Source: [facility] Document Id: [id number] Miscellaneous - Nadja Jean R.N. - 09/29/2015 8:27 PM CDT Facility Charge Ticket 2.0 11.0 DX Facility Charge Ticket 2.0 11.0 DX Entered On: 09/30/2015 0:40 CDT Performed On: 09/29/2015 20:27 CDT by NADJA JEAN RN Facility Charge Ticket 2.0 11.0 DX ED Other Charges : Standard ED Encounter TVL Level Translated RTF : Closed head injury without LOC TVL:3 TVL Level for Facility Charge Ticket : Level 3 Arrival Mode Calc : 1 Mode of Arrival ED : Private vehicle, Ambulatory Lynx Mode of Arrival Interpreted : Standard Lynx Process Management : None Lynx Order Management : None 30 Minutes Critical Care : No Nursing Notes RTF : Nursing Notes ED Primary Assessment,09/29/15 20:35,ZENAIDA SIDHU CRATE MAKER Nurse Reassess,09/29/15 22:12,NADJA JEAN CRATE MAKER Nurse Reassess,09/29/15 21:54,ZENAIDA SIDHU CRATE MAKER Nurse Reassess,09/29/15 21:30,ZENAIDA SIDHU RN Lynx Nursing Assessment : Triage and 3-5 nursing assessments Lynx Disposition : Discharge Disposition RTF : discharge Lynx Total Points with Diagnosis Control : 6 Lynx Visit Level : 02869 Level 3 Treatments Prior to Arrival : None NADJA JEAN RN - 09/30/2015 0:39 CDT [facility] Document Id: [id number] CDT!18 documented in this encounter Plan of Treatment Upcoming Encounters Date Type Specialty Care Team Description 05/23/2022 Telemedicine Endocrinology Arely Bond M.B., B.Ch. [address] [place] [address] [phone] (Wo rk) documented as of this encounter Visit Diagnoses Not on filedocumented in this encounter
--- OUTSIDE RECORDS SUMMARY | 2022-04-12 08:15 | XMS_ITS | Encounter Summary ---
:1995 Author Organization [facility] Address [address] [place] [address] Care Team Providers Name Role Phone Unavailable Primary Care Provider Unavailable Encounter Details Date Type Department Care Team Description 11/08/2015 [facility], GENO, C.N.P., M. S.N. [address] [place] [address] (Wo rk) Social History Tobacco Use Types [...] How often do you attend protestant or mormon services? Never 03/20/2022 Do you belong to [...] Sign Reading Time Taken Comments Blood Pressure 121/82 11/08/2015 2:14 PM CDT Pulse 76 11/08/2015 2:14 PM CDT Temperature - - Respiratory Rate - - Oxygen Saturation - - Inhaled Oxygen Concentration - - Weight 70.4 kg (155 lb 3.3 oz) 11/08/2015 2:14 PM CDT Height 163 cm (5' 4.17) 11/08/2015 2:14 PM CDT Body Mass Index 26.5 11/08/2015 2:14 PM CDT documented in this encounter Medications at Time [...] documented as of this encounter Progress Notes Roc Romero, GENO, C.N.P., M.S.N. - 11/08/2015 4:59 PM CDT Clinic Full Note CHIEF COMPLAINT/REASON FOR VISIT Pt is here today for ovarian cysts HISTORY OF PRESENT ILLNESS Jamin is a 20 year old female to male transgender patient who presents for further evaluation of abdominal pain and to discuss recent CT results showing bilateral ovarian cysts. He began having abdominal pain, bilaterally, 2 days ago that seems to radiate towards the back and downward. There has been no fever, but some chills and general malaise. Nausea without vomiting. Reports at onset, felt like needed to have a bowel movement and was very difficult to pass. Eventually, with the passage of stool there was some bright red blood noted. He is unsure if it was rectal or not.Following that there was one episode of loose stool and intensified pain that brought him to his primary care doctors office. A CT was ordered, which showed bilateral ovarian cysts less than 2 cm. Appendix and kidneys were normal. No stool commentary on the report. He was referred here for further work up and discussion. He is currently being treated by [facility] in [place] with 80 mg of Testosterone daily, since March 2015, for his transition. He had an appointment earlier today with a plastic surgeon to discuss breast tissue removal. Today his pain is rated as moderate. He does not feel he can work. Describes the pain as aching andshooting at times. Reports intermittent urinary discomfort. Has noticed sexual activity to be uncomfortable for the past two months. Denies vaginal discharge. Last STD screen was 2 months ago. Has not had a pelvic exam since symptoms began. MEDICATIONS Misc Prescription, migraine prevention medication, daily. Mis Prescription, See Instructions, testoterone--80 mg IM per week--(has been taking past 8 months) Black Earth 5 mg-325 mg oral tablet, 1 tab(s), PO, q4hr, PRN, 0 refills Trazapam 15 mg, i po daily for sleep ALLERGIES NKA PAST MEDICAL HISTORY Chronic Dysphoria Gender Adolescent Or Adult Migraine Headache (WHITE) NOS Historical No historical problems SOCIAL HISTORY Date Time: 11/08/2015 14:14 Tobacco: Smoking Status: Current some day smoker Exposure: No Results Found Alcohol: Use: No Results Found Recreational Drugs: Use: None Type: No Results Found SYSTEMS REVIEW GENERAL: Negative for unplanned weight gain or weight loss. Positive for chills, sweats, and fatigue. RESPIRATORY: Negative for shortness of breath, cough, or wheezing. CARDIOVASCULAR: Negative for chest pain, chest pressure, heart palpitations,dyspnea, or edema. No pain in calves or with walking. GI: Decreased appetite, nausea without vomiting, and constipation. Last bowel movement was two daysago. : No vaginal discharge. Some discomfort with urination. No urinary urgency. Some hesitancy. Internal discomfort with sexual intercourse or masturbation. MUSCULOSKELETAL: Negative for joint or muscular pain or stiffness. NEURO: No significant headaches, no slurred speech, no seizures, no dizziness, no loss of consciousness. Has had several closed head injuries. VITAL SIGNS T: 37.1 ??C (Core) HR: 76 BP: 121 / 82 HT: 163 cm WT: 70.4 kg BMI: 26.5 PHYSICAL EXAMINATION GENERAL: He is alert, pleasant. No visible guarding. ABDOMEN: Abdomen is distended, tender throughout, semi-soft. No CVA tenderness on exam. : (Jolanta Palumbo RN present for exam) Normal external genitalia. Clitoris edematous and tender with touch. Introitus and vaginal barrientos are deep red, smooth, with clear discharge. Circular, midline, globular uterus. No adnexal masses or tenderness. Bimanual exam did produce a burning sensation for the patient. RECTAL: Exam reveals no hemorrhoids or masses. NEUROLOGIC: Alert and oriented x 3. Muscle strength and tone normal in all extremities. Extremity range of motion normal. Gait and station normal. PSYCH: Mood appears good. Affect full. Speech and thought processes are normal. DIAGNOSTIC RESULTS CT from 11/07/15 shows right ovarian cyst at 2 cm and left ovarian cyst at 1.5 cm. IMPRESSION/REPORT/PLAN Dysphoria Gender Adolescent Or Adult Ordered: OV New Pt Level 3 - 53051 - 30 min Pain Pelvic Female Discussed multiple causes of abdominal pain. I am suspicious of constipation as the culprit of the pain given the distended stomach, nausea, and bowel pattern changes. I did encourage milk of magnesiaand enemas for the next three days. We discussed the nature of ovarian cysts and how they are often a normal process with self resolution, however, we should obtain a pelvic US to get better visualization of the ovaries. Treatment options for ovarian cysts are complicated by the fact that he is in gender transition. Might consider Depo Lupron, but would need to discuss with Erika's physician to coordinate that care. 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 I did explain that STD's and vaginitis can cause some of the same symptoms, therefore we will rule those out today. I do see evidence of atrophic vaginitis, likely from the testosterone treatment and the reason for the vaginal discomfort and possibly urinary as well. I did encourage him to bring thisup with his physician team to further assess treatment options. I will call him later today with some of the preliminary results. Ordered: Chlamydia by Nucleic Acid Amp Culture Urine GC by Nucleic Acid Amp OV New Pt Level 3 - 11950 - 30 min Orders: US Pelvic And Endovaginal Electronically Signed By: ROC ROMERO CNP On: 11/08/2015 05:05 PM Source: Genas[employer] Document Id: [id number] documented in this encounter Miscellaneous Notes Miscellaneous - Roc Romero APRN, C.N.P., M.S.N. - 11/08/2015 5:12 PM CDT Results Notification From: ROC ROMERO CNP Sent: 11/08/2015 17:12:00 CDT Show up: 11/08/2015 17:11:00 CDT Subject: Results Notification Spoke with patient re: results. I strongly suspect atrophic vaginitis from the testosterone and highly encourage to discuss with transgender clinic on how to best manage symptoms. Of note, patient reports he did do one enema and milk of magnesia as instructed and did pass some hard stool. Still having significant cramping on the right side. Reviewed the plan and encouraged to repeat this daily for the next three days to continue with stool clean out. Results: Date Result Type Ind Result Name MBKarly Review Vaginosis Panel, DNA Source: [facility] POWERCHART Document Id: [id number] Miscellaneous - Roc Romero, GENO, C.N.P., M.S.N. - 11/08/2015 5:06 PM CDT Ambulatory Patient Summary [place] [address] [place], [place] [id number] Visit Information Name: NAZ CHAKRABORTY [facility] Number: [id number] Current Date: 11/08/2015 17:06:01 Physicians Attending Provider: ROC ROMERO CNP Primary Care Provider: KALEE MORENO MD NAZ CHAKRABORTY has been given the following list of follow-up instructions, medication list, and patient education materials: Follow-up Instructions Your Medications Here is a list of your medications. It is important to take your medications as directed. Use a pillbox or chart to help remind you to take your medications. Please let your doctor or nurse know if you have problems taking your medications. Medication/Strength How to Take Indications/Special Instructions/Comments/Notes for Patient Medication Changes/Routing HYDROcodone-acetaminophen ([place] 5 mg-325 mg oral tablet) 1 Tablet(s), Oral, every 4 hours as neededfor Pain No more than 4,000mg acetaminophen/24hrs Misc Prescription (Trazapam 15 mg) i po daily for sleep This is a CHANGE Misc Prescription (Misc Prescription) See Instructions testoterone--80 mg IM per week--(has been taking past 8 months) This is a CHANGE Misc Prescription (Misc Prescription) migraine prevention medication, daily. Stop Taking the Following Medications: Medication list as of 11-08-15 17:06 Attention: If you have any medications at home that are not on this list, DO NOT take them until youcontact your provider for clarification. Give a copy of your medication list to your primary care provider. Update your medication list any time medications or doses are changed and carry your medication list at all times in case of emergency. Electronically Signed By: ROC ROMERO CNP Signed On:08-NOV-2015 17:05:59 Your Allergies & Intolerances Substance Reaction Symptoms Category Comments No Known Allergies Your Problem List Problem Status Onset Comments Dysphoria Gender Adolescent Or Adult Active Migraine Headache (WHITE) NOS Active Your Upcoming Appointments Date Time Location Provider 11/10/2015 10:30 MAQN Ultrasound MAQN US RM 1 Attention: Contact your local Clinic if further appointment detail needed. Consider Using Patient Online Services Patient Online [...] if you dont have one. Go to [email or web address] and click on Create Your Account. Then, follow the directions to complete the online form. Youll be asked for your [facility] number which you can find at the top of this document. Your Goals/Additional instructions: Source: [facility] POWERCHART Document Id: [id number] Miscellaneous - Roc Romero APRN C.N.P., M.S.N. - 11/08/2015 5:06 PM CDT Ambulatory Discharge Medication List [address] [id number] Visit Information Name: NAZ CHAKRABORTY [facility] Number: [id number] Visit Date: 11/08/2015 17:06:00 Attending Provider: ROC ROMERO CNP Primary Care Provider: KALEE MORENO MD NAZ CHAKRABORTY has been given the following list of medications: Your Medications It is important to take your medications as directed. Use a pill box or chart to help remind you to take your medications. Please let your doctor or nurse know if you have problems taking your medications. Medication/Strength How to Take Indications/Special Instructions/Comments/Notes for Patient Medication Changes/Routing HYDROcodone-acetaminophen ([place] 5 mg-325 mg oral tablet) 1 Tablet(s), Oral, every 4 hours as neededfor Pain No more than 4,000mg acetaminophen/24hrs Misc Prescription (Trazapam 15 mg) i po daily for sleep This is a CHANGE Misc Prescription (Misc Prescription) See Instructions testoterone--80 mg IM per week--(has been taking past 8 months) This is a CHANGE Misc Prescription (Misc Prescription) migraine prevention medication, daily. Stop Taking the Following Medications: Medication list as of 11-08-15 17:06 Attention: If you have any medications at home that are not on this list, DO NOT take them until youcontact your provider for clarification. Give a copy of your medication list to your primary care provider. Update your medication list any time medications or doses are changed and carry your medication list at all times in case of emergency. Electronically Signed By: ROC ROMERO CNP Signed On:08-NOV-2015 17:05:59 Additional Information: Source: [facility] VideoGenie Document Id: [id number] Erikacellaneous - Jolanta Palumbo R.N. - 11/08/2015 3:00 PM CDT Ginger Farmer Documentation Ginger Farmer Documentation Entered On: 11/08/2015 15:00 CDT Performed On: 11/08/2015 15:00 CDT by JOLANTA PALUMBO RN Ginger Farmer Documentation Exam/Procedure Performed : speculum exam CD Ginger Farmer Present : Yes CD Ginger Farmer Name : Jolanta Palumbo RN Present in Room During Exam/Procedure : Care provider JOLANTA PALUMBO RN - 11/08/2015 15:00 CDT Source: [facility] Video[employer] Document Id: [id number] CDT!6 Miscellaneous - oRc Romero APRN, C.N.P., M.S.N. - 11/08/2015 2:51 PM CDT Work Excuse November 08, 2015 NAZ CHAKRABORTY [address] [facility] [phone] Dear NAZ CHAKRABORTY, You were examined in my office on: 11/08/2015 Reason for work excuse: Medical Illness ( x_ ) Yes ( _ ) No Injury ( _ ) Yes ( x_ ) No Is excused from all work: ( _x ) Yes ( _ ) No Return to Work date: _11/10/2015 Notes: _ Sincerely, ROC ROMERO [address] [place] [address] Electronic Signature Electronically Signed By: ROC ROMERO CNP On: November 08, 2015 This document has images extracted. Source: [facility] Video[employer] Document Id: [id number] Miscellaneous - Jolanta Palumbo, R.N. 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 Entered On: 11/08/2015 14:17 CDT Performed On: 11/08/2015 14:14 CDT by JOLANTA PALUMBO RN Intake Chief Complaint : Pt is here today for ovarian cysts LMP Date : 03/23/15 Ambulatory Intake Additional Information : pt is on testesterone Temperature Core : 37.1 DegC(Converted to: 98.8 DegF) Peripheral Pulse Rate : 76 /min Systolic Blood Pressure : 121 mmHg Diastolic Blood Pressure : 82 mmHg NIBP Mean : 95 mmHg BP Location : Left upper extremity Blood Pressure Cuff Size : Regular Height : 163 cm(Converted to: 5 ft 4 inch(es), 64 inch(es)) Actual Weight : 70.4 kg(Converted to: 155 lb 3 oz) Weight Source : Standing scale Dosing Weight Clinic : 70.4 kg Clinic BSA : 1.79 Body Mass Index : 26.5 kg/m2 JOLANTA PALUMBO RN - 11/08/2015 14:14 CDT General Info Information Given By : Patient Languages : Prydeinig Is Patient Female and 13-50 no hysterectomy : Yes Status : Patient denies Are you ? : No JOLANTA PALUMBO RN - 11/08/2015 14:14 CDT Subjective Pain Symptoms : Yes JOLANTA PALUMBO RN - 11/08/2015 14:14 CDT Pain Scale Pain Scale Verbal 0-10 : Open JOLANTA PALUMBO RN - 11/08/2015 14:14 CDT Pain Pain Assessment Grid Pain 1 Pain 2 Location : Abdomen Lower back Laterality : Bilateral Intensity : 10 4 JOLANTA PALUMBO RN - 11/08/2015 14:14 CDT JOLANTA PALUMBO RN - 11/08/2015 14:14 CDT Dependent Habits Smoking Status : Current some day smoker Tobacco 2A : Yes Tobacco Use/Currently Using : Yes Tobacco Use/Last 30 Days : Yes Tobacco Use/Last 12 months : Yes Type : Cigarettes: Less than 20 per day Tobacco Use/Advised to Quit : Yes JOLANTA PALUMBO RN - 11/08/2015 14:14 CDT Recreational Drug Use Grid Drug Use : None JOLANTA PALUMBO RN - 11/08/2015 14:14 CDT Source: [employer] Document Id: [id number] CDT!48 documented in this encounter Plan of Treatment Upcoming Encounters Date Type Specialty Care Team Description 05/23/2022 Telemedicine Endocrinology Arely Bond M.B., B.Ch. [address] [place] [address] [phone] (Wo rk) documented as of this encounter Procedures Procedure Name Priority Date/Time Associated Comments Diagnosis TEST, U Routine 11/08/2015 2:47 PM Resu lts for this CDT procedure are i n the results section. URINALYSIS WITH Routine 11/08/2015 2:47 PM Result s for this MICROSCOPIC CDT procedure are i n the results section. VAGINITIS BATTERY, Routine 11/08/2015 2:45 PM Res ults for this DNA (GENITAL) CDT procedure are in the results section. CHLAMYDIA/GONORRHOEAE Routine 11/08/2015 2:45 PM Results for this AMPLIFIED RNA CDT procedure are in the results section. CHLAMYDIA TRACHOMATIS Routine 11/08/2015 2:45 PM Results for this AMPLIFIED RNA CDT procedure are in the results section. BACTERIAL CULTURE, Routine 11/08/2015 2:45 PM Res ults for this AEROBIC, URINE CDT procedure are in the results section. documented in this encounter Results Test, Qualitative, Urine (11/08/2015 2:47 PM CDT) [facility] Method Time Signature HXBeta-hCG Negative Negative POWERCHART Qualitative Urine Specimen (Source) Anatomical Collection Method Collection Time Re ceived Time Location / / Volume Laterality Urine 11/08/2015 2:47 PM CDT Roc Romero APRN, C.N.P., M.S.N. LAB URINE ORDERABL ES Performing Organization Address [facility] Phon e Number POWERCHART (ABNORMAL) Urinalysis, Complete, Includes Microscopic (11/08/2015 2:47 PM CDT) [facility] Method Time Signature HXUr Color Yellow Colorless POWERCHART Clarity Clear Clear POWERCHART Glucose Negative Negative MGDL POWERCHART HXBILIRUBIN Negative Negative POWERCHART Ketones, QL(U) 15 (A) Negative MGDL POWERCHART Specific 1.020 POWERCHART [place], POCT, U Comment: Reference Range Specific [place]: 1.000-1.035 HXBLOOD Negative Negative POWERCHART pH, POCT, Urine 6.5 <5.0 POWERCHART Comment: Reference Range pH: 5.0-8.0 Protein, Ur, Dip Negative Negative MGDL POWERCHAR T Urobilinogen 1.0 0.2 MGDL POWERCHART Comment: Reference Range Urobilinogen: 0.2-1.0 mg/dL HXNITRITE Negative Negative POWERCHART Leukocyte Esterase Small (A) Negative POWERCHART HXUR WBC. 4-10 None Seen HPF POWERCHART HXUR RBC. None Seen None Seen HPF POWERCHART Squamous Epithelial Occ-3 (A) None Seen HPF POWERC MEJIA Crystals Present (A) None Seen POWERCHART Comment: amorphous crystals/lpf Specimen (Source) Anatomical Collection Method Collection Time Re ceived Time Location / / Volume Laterality Urine, First 11/08/2015 2:47 PM Voided CDT Sharifa Arana APRN.N.P., M.S.N. LAB URINE ORDERABL ES Performing Organization Address [facility]/ZIP Code Phon e Number POWERCHART Chlamydia / Gonorrhoeae Amplified RNA (11/08/2015 2:45 PM CDT) Component Value Ref Test Analysis Performed At [facility] Range Method Time Signature HX GC by Nucleic POWERCHART Acid Amplification HXFinal Negative for POWERCHART Neisseria gonorrhea by RNA amplification . HXFinal Reference: POWERCHART Negative HXFinal If you POWERCHART submitted a female urine sample, please note it is a Laboratory Developed Test. Specimen (Source) Anatomical Collection Method Collection Time Re ceived Time Location / / Volume Laterality Cervix/Endocervix 11/08/2015 2:45 PM CDT Roc Romero APRN, C.N.P., M.S.N. LAB MICROBIOLOGY - GENERAL ORDERABLES Performing Organization Address [facility] Code Phon e Number POWERCHART VAGINITIS BATTERY, DNA (GENITAL) (11/08/2015 2:45 PM CDT) Component Value Ref Test Analysis Performed At [facility] Range Method Time Signature HXVaginitis POWERCHART Battery, DNA (Genital) HXFinal Trichomonas POWERCHART vaginalis DNA negative HXFinal Gardnerella POWERCHART vaginalis DNA negative HXFinal Donya species POWERCHART DNA negative HXFinal Reference: POWERCHART Negative Specimen (Source) Anatomical Collection Method Collection Time Re ceived Time Location / / Volume Laterality Vagina 11/08/2015 2:45 PM CDT Sean Arana APRNN.Manish., M.S.N. LAB HISTORICAL ORD ERS Performing Organization Address [facility] Phon e Number POWERCHART Chlamydia Trachomatis Amplified RNA (11/08/2015 2:45 PM CDT) Component Value Ref Test Analysis Performed At [facility] Range Method Time Signature HXChlamydia by POWERCHART Nucleic Acid Amplification HXFinal Negative for POWERCHART Chlamydia trachomatis by RNA amplification. HXFinal Reference: POWERCHART Negative HXFinal If you POWERCHART submitted a female urine sample, please note it is a Laboratory Developed Test. Specimen (Source) Anatomical Collection Method Collection Time Re ceived Time Location / / Volume Laterality Cervix/Endocervix 11/08/2015 2:45 PM CDT Sean Arana APRNN.Manish., M.S.N. LAB MICROBIOLOGY - GENERAL ORDERABLES Performing Organization Address City/State/[facility] Code Phon e Number POWERCHART Bacterial Culture, Aerobic, Urine (11/08/2015 2:45 PM CDT) [facility] gist Method Time Signature Bacterial POWERCHART Culture, Aerobic, Urine [facility] Mixed diana. No POWERCHART further studies unless notified. [facility] POWERCHART Microbiology laboratory [phone]. Specimen (Source) Anatomical Collection Method Collection Time Re ceived Time Location / / Volume Laterality Urine, First 11/08/2015 2:45 PM Voided CDT Roc Romero APRN C.N.Manish., M.S.N. LAB MICROBIOLOGY - GENERAL ORDERABLES Performing Organization Address City/State/ZIP Code Phon e Number POWERCHART documented in this encounter Visit Diagnoses Not on filedocumented in this encounter
--- OUTSIDE RECORDS SUMMARY | 2022-04-12 08:15 | XMS_ITS | Encounter Summary ---
:1995 Author Organization [facility] Address [address] [place] [address] Care Team Providers Name Role Phone Unavailable Primary Care Provider Unavailable Encounter Details Date Type Department Care Team Description 12/05/2015 Hospital Encounter HX [facility] Everton Cook, GENO, C.N.P., M. S.N. [address] [place] [address] (Wo rk) Social History Tobacco [...] 03/20/2022 relatives? How often do you attend nondenominational or episcopalian services? Never 03/20/2022 Do you belong to any clubs or organizations such as No 03/20/2022 nondenominational groups, unions, fraternal or athletic groups, or [...] - - Height 163 cm (5' 4.17) 12/05/2015 9:16 AM CDT Body Mass Index - - [...] Miscellaneous - Conversion, Historical Provider Ser - 12/06/2015 9:03 AM CDT Coding Summary-Paper Based CODING DATE: 12/06/2015 FINAL [facility] STATUS: * Discharged to Home or Self Care PAYOR: [employer] ADMIT DX: REASON FOR VISIT DX: FINAL DX: PRINCIPAL: R10.31 Right lower quadrant pain SECONDARY: PROCEDURES DOCTOR NAME DATE NOTE: The code number assigned matches the documented diagnosis and / or procedure in the patient's chart. However, the narrative phrase printed from the coding software may appear abbreviated, or result in slightly different terminology. Coded By: KALEE BROWN Date Saved: 12/06/2015 09:03 am [facility] Document Id: [id number] Miscellaneous - Roc Romero APRN, C.N.P., M.S.N. - 12/05/2015 11:55 AM CDT Results Notification Document Contains Addenda Addendum by ROC ROMERO CNP on December 05, 2015 12:11 CDT Spoke with patient and explained normal US and other labs. Abdominal x-ray ordered. I offered a note to excuse patient from work shift this evening but he was not sure he wanted that. Told him to let me know if needed. Otherwise, I will be in touch after x-ray. From: ROC ROMERO CNP To: ABDIEL [facility] Nurse; Sent: 12/05/2015 11:55:40 CDT Show up: 12/05/2015 11:53:00 CDT Subject: Results Notification Left message for patient to return call to clinic. I would like to review the following with the patient: Spoke with Dr. Nelson about this ultrasound result and overall status of the patient. He is in agreement that appendix is unlikely given the exam, the WBC, and duration of pain. Ovaries have been ruledout. Urine culture returned from yesterday as normal. I would like to proceed with an abdominal x-ray. Results: Date Result Type Result Name 12/05/2015 10:52 Radiology US Pelvic And Endovaginal [facility] Document Id: [id number] documented in this encounter Plan of Treatment Upcoming Encounters Date Type Specialty Care Team Description 05/23/2022 Telemedicine Endocrinology Arely Bond M.B., B.Ch. [address] [place] [address] [phone] (Wo rk) documented as of this encounter Procedures Procedure Name Priority Date/Time Associated Comments Diagnosis US PELVIS TRANSVAGINAL Routine 12/05/2015 9:30 AM Results for this AND TRANSABDOMINAL CDT procedure are in the results section. documented in this encounter Results US Pelvis Transvaginal and Transabdominal (12/05/2015 9:30 AM CDT) Anatomical Region Laterality Modality Pelvis N/A Ultrasound Specimen (Source) Anatomical Collection Method Collection Time Re ceived Time Location / / Volume Laterality 12/05/2015 9:30 AM CDT Addenda Addendum by Provider, Thea Mackenzie o ivette 12/05/2015 9:30 AM CDT RAD^^^MA US Pelvic And Endovaginal 12/05/2015 09:30:00 Impressions 12/05/2015 10:48 AM CDT Negative and unchanged pelvic ultrasound. Narrative 12/05/2015 10:48 AM CDT EXAM: US Pelvic And Endovaginal INDICATION: acute rt. lower abdominal pa in COMPARISON: 11/10/2015. FINDINGS: Both transabdominal and transv aginal exams are performed. The uterus is midline in position and no rmal in size and appearance with an unremarkable endometrial stripe measuring 3 mm. The ovaries are visualized bilaterally and normal in size and appearance with normal vascularity. No suspicious adnexa l mass or free fluid in the pelvic cul-de-sac is identified with att ention to the right. No significant interval change compared wit h 11/10/2015. Procedure Note Yobany Ruiz Jr., M.D. / Avril Ward M.D. - 10/19/2016 EXAM: US Pelvic And Endovaginal INDICATION: acute rt. lower abdominal pa in COMPARISON: 11/10/2015. FINDINGS: Both transabdominal and transv aginal exams are performed. The uterus is midline in position and no rmal in size and appearance with an unremarkable endometrial stripe measuring 3 mm. The ovaries are visualized bilaterally and normal in size and appearance with normal vascularity. No suspicious adnexa l mass or free fluid in the pelvic cul-de-sac is identified with att ention to the right. No significant interval change compared wit h 11/10/2015. IMPRESSION: Negative and unchanged pelvi c ultrasound. Qi Mazariegos IMJennie US PROCEDURES documented in this encounter Visit Diagnoses Not on filedocumented in this encounter
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
--- OUTSIDE RECORDS SUMMARY | 2022-04-12 08:15 | XMS_ITS | Encounter Summary ---
:1995 Author Organization [facility] Address [address] [place] [address] Care Team Providers Name Role Phone Unavailable Primary Care Provider Unavailable Encounter Details Date Type Department Care Team Description 12/04/2015 Hospital Encounter HX [facility] Everton Romero, GENO, C.N.P., M. S.N. [address] [place] [address] (Wo rk) Social History Tobacco [...] 03/20/2022 relatives? How often do you attend shinto or jehovah's witness services? Never 03/20/2022 Do you belong to any clubs or organizations such as No 03/20/2022 shinto groups, unions, fraternal or athletic groups, or [...] Sign Reading Time Taken Comments Blood Pressure 124/86 12/04/2015 9:49 AM CDT Pulse 66 12/04/2015 9:49 AM CDT Temperature - - Respiratory Rate - - Oxygen Saturation - - Inhaled Oxygen Concentration - - Weight 69.5 kg (153 lb 3.5 oz) 12/04/2015 9:49 AM CDT Height 163 cm (5' 4.17) 12/04/2015 9:49 AM CDT Body Mass Index 26.16 12/04/2015 9:49 AM CDT documented in this encounter Medications at [...] Notes Roc Romero, GENO, C.N.P., M.S.N. - 12/04/2015 11:03 AM CDT Clinic Full Note CHIEF COMPLAINT/REASON FOR VISIT back and ovary pain HISTORY OF PRESENT ILLNESS Jamin is a 20 year old patient who is here for a new onset of low abdominal pain and back pain. Hepresented to this clinic for evaluation because of a suspected history of ovarian cysts and his comfort with this clinic. He is currently undergoing testosterone treatment with [facility] in [place] for gender change from female to male. Jamin was having similar pelvic discomfort in October that resulted in a CT of the abdomen. There was mention of bilateral ovarian cysts and [facility]. Interestingly, a pelvic US done 3 days later did not confirmthe presence of ovarian cysts and the remainder of the testing was normal. Please refer to my dictation for the details of that visit. He reports that the pain in October did subside and was absent until 3 days ago. He began to have sharpright sided low back pain along with lower midline pelvic cramping. He states the pain can be as badas 10/10 at times. It is intermittent, seemingly worse when upright or walking. It has interfered with his ability to sleep. Yesterday he took two Narco tablets around 5 pm and again two at 3 am. He did not feel these were helpful. He endorses mild nausea yesterday, but no vomiting. No appetite changes. Cannot associate anything specific with the pain. States the pain is different than period cramping, that it feels like someone is squeezing really hard, then letting go. Like a pulsing. Denies dysuria, urinary frequency, urgency, or gross hematuria. Has not had a new sexual partner and had a negative STD screen at last visit. Denies any vaginal discharge, itching, burning, or discomfort. Last bowel movement was two days ago, described as soft, formed, and easy to pass. MEDICATIONS Misc Prescription, migraine prevention medication, daily. Misc Prescription, See Instructions, testosterone--80 mg IM per week--(has been taking past 8 months) Fresno 5 mg-325 mg oral tablet, 1 tab(s), PO, q4hr, PRN, 0 refills Trazapam 15 mg, i po daily for sleep ALLERGIES NKA PAST MEDICAL HISTORY Chronic Dysphoria Gender Adolescent Or Adult Migraine Headache (WHITE) NOS Historical No historical problems SOCIAL HISTORY Date Time: 12/04/2015 09:49 Tobacco: Smoking Status: Current every day smoker Exposure: Patient smokes Alcohol: Use: No Results Found Recreational Drugs: Use: None Type: No Results Found SYSTEMS REVIEW GENERAL: Negative for unplanned weight gain or weight loss. Denies no chills, sweats, or fatigue. RESPIRATORY: Negative for shortness of breath, cough, or wheezing. CARDIOVASCULAR: Negative for chest pain, chest pressure, heart palpitations, dyspnea, or edema. GI: As per HPI. : No vaginal discharge, no burning/pain with urination, no difficulty starting stream, no difficulty emptying bladder, no excessive urination. MUSCULOSKELETAL: Low back ache, right greater than left. Saw a chiropractor who did not feel it wasmuscular or skeletal related. NEURO: No significant headaches, no slurred speech, no seizures, no dizziness, no loss of consciousness, no memory loss. PSYCHIATRIC: Denies anxiety or depression. Mentions that mom was recently hospitalized for blood clots. Was inpatient for 4 days. Returned home 3 days ago. VITAL SIGNS HR: 66 BP: 124 / 86 HT: 163 cm WT: 69.5 kg BMI: 26.16 PHYSICAL EXAMINATION GENERAL: Alert, pleasant, no acute distress. Prefers to be addressed as Jamin. ABDOMEN: Abdomen is semi-soft, slightly distended, no masses or organomegaly, no groin adenopathy. Tenderness midline, about 3 cm below umbilicus. Negative Villa sign. No rebound tenderness. No CVA tenderness. : Deferred since no external complaints and this was done 3 weeks ago. NEUROLOGIC: Alert and oriented x 3. Muscle strength and tone normal in all extremities. Extremity range of motion normal. Gait and station normal. PSYCH: Mood appears good. Affect full. Speech and thought processes are normal. LAB RESULTS -----URINE/STOOL----- UA Color: Yellow 12/04/15 UA Clarity: Clear 12/04/15 UA Spec Grav: 1.020 12/04/15 UA pH: 7.0 12/04/15 UA Protein: Negativ 12/04/15 UA Glucose: Negativ 12/04/15 UA Ketones: Negativ 12/04/15 UA Bili: Negativ 12/04/15 UA Urobilinogen: 0.2 12/04/15 UA Blood: Negativ 12/04/15 UA Nitrite: Negativ 12/04/15 UA Leuk Est: Negativ 12/04/15 UR WBC: Occ-3 12/04/15 UR RBC: None Seen 12/04/15 UR Squamous Epi Cells: Occ-3 Abnormal 12/04/[address] from 11/07/2015 and US from 11/10/15 reviewed. Recent negative STD and vaginitis panel. IMPRESSION/REPORT/PLAN Dysphoria Gender Adolescent Or Adult He has not reached out to transgender clinic about the role of testosterone treatment in vaginal atrophy. He does have scheduled follow up there in December. Does not think the pain is related since he isnot having any external symptoms. I do wonder if there is a component of his treatment causing significant changes to his ovarian function and estrogen supply and therefore he is having discomfort, however, given the acuity of his symptoms without external symptoms, he does need further evaluation. Ordered: OV Est Pt Level 4 - 91104 - 25 min Pain Pelvic Female Reviewed the normal pelvic US done three weeks ago. Although an ovarian cyst formation is possible,it is highly unlikely to have enough influence to be causing pain at this point. The testosterone isessentially keeping the cycle shut down and all anatomy was normal on exam. Physical exam would not lend itself to appendicitis. Urine analysis rules out cystitis or kidney stones given the absence of blood in the urine and lack of other urinary symptoms. I strongly suspect the colon, specifically constipation or perhaps diverticulitis. There is the possibility of stress related pain as well, given the timing of mom's health. I have asked the patient to see primary care for these symptoms and he wasagreeable. Appointment scheduled for later today. Again I reviewed the negative [employer] work up with himat this time. Ordered: Culture Urine OV Est Pt Level 4 - 81893 - 25 min Electronically Signed By: ROC ROMERO CNP On: 12/04/2015 11:10 AM Source: [facility] POWERCHART Document Id: [id number] documented in this encounter Miscellaneous Notes Miscellaneous - Long Proctor - 12/05/2015 8:27 AM CDT reji appointment Document Contains Addenda Addendum by KIRBY PATINO MD on December 05, 2015 10:25:36 CDT From: KIRBY PATINO MD To: [facility] Medicine Nurse; Sent: 12/05/2015 10:25:36 CDT Subject: RE: priscila-yesterdays appointment I spoke with the patient. He had an ultrasound today. If that is inconclusive they will plan on doing a CT scan. It also sounds like he had lab work done. The patient's questions were answered. He can contact me with any concerns. Kirby Patino MD Addendum by GRISELDA GROSS RN on December 05, 2015 09:36:07 CDT From: GRISELDA GROSS RN ([facility] Nurse) To: KIRBY PATINO MD; Sent: 12/05/2015 09:36:07 CDT Subject: FW: rejiyes appointment From: LONG PROCTOR ([facility]) To: [facility] Nurse; Cc: [facility]; Sent: 12/05/2015 08:27:02 CDT Subject: priscila-yester appointment If you need a prescription refill please call your pharmacy. Please allow 3 business days for processing. Call Center Template: ?? May we leave a message for you on this phone? ?? How soon do you need a call back? ?? What can I help you with today? she was seen yesterday with you and roc romero yesterday regarding some ovarian cyst's and she's wondering if you spoke with roc yesterday because she's still in pain today. She has developed some shortness today and did speak with a registered nurse and was advised if it got worse to go to the e.r patient would like a call back to see what the next step is. ?? If Medication Refill: o What is the medication? o What pharmacy do you use? o Have you contacted your pharmacy regarding this request? I will send this information to the appropriate staff member who will look into your concern. If thenurse needs to talk to you he or she will call you back within two hours. Thank you for calling [facility]. Source: [facility] POWERCHART Document Id: [id number] Electronically signed by Rodri [facility] Lan/Wan Engineer [id number] at 11/09/2016 6:07 PM CDT Miscellaneous - Roc Romero, GENO, C.N.P., M.S.N. - 12/04/2015 11:10 AM CDT Ambulatory Patient Summary [facility] [address] [place], [place] [phone] Visit Information Name: NAZ CHAKRABORTY [facility] Number: [id number] Current Date: 12/04/2015 11:10:42 Physicians Attending Provider: ROC ROMERO FLIGHT SURGEON Primary Care Provider: KALEE MORENO MD DAVION NAZ KOO has been given the following list of [...] Indications/Special Instructions/Comments/Notes for Patient Medication Changes/Routing HYDROcodone-acetaminophen ([place] 5 mg-325 mg oral tablet) 1 Tablet(s), Oral, every 4 hours as neededfor Pain No more than 4,000mg acetaminophen/24hrs Misc Prescription (Trazapam 15 mg) i po daily for sleep Misc Prescription (Misc Prescription) See Instructions testoterone--80 mg IM per week--(has been taking past 8 months) Misc Prescription (Misc Prescription) migraine prevention medication, daily. Stop Taking the Following Medications: Medication list as of 12-04-15 11:10 Attention: If you have any medications at [...] Electronically Signed By: ROC ROMERO CNP Signed On:04-DEC-2015 11:10:40 Your Allergies & Intolerances Substance Reaction Symptoms Category Comments No Known Allergies Your Problem List Problem Status Onset Comments Dysphoria Gender Adolescent Or Adult Active Migraine Headache (WHITE) NOS Active Your Upcoming Appointments Date Time Location Provider 12/04/2015 14:15 MARIUM Patino MD, Kirby Ball Attention: Contact your local Clinic if further [...] if you dont have one. Go to [email or web address] and click on Create Your Account. Then, follow the directions to complete the online form. Youll be asked for your [facility] number which you can find at the top of this document. Your Goals/Additional instructions: Source: [facility] POWERCHART Document Id: [id number] Miscellaneous - Roc Romero APRN, C.N.P., M.S.N. - 12/04/2015 11:10 AM CDT Ambulatory Discharge Medication List [facility] [place] [address] [place], [place] [id number] Visit Information Name: NAZ CHAKRABORTY [facility] Number: [id number] Visit Date: 12/04/2015 11:10:41 Attending Provider: ROC ROMERO CNP Primary Care [...] Indications/Special Instructions/Comments/Notes for Patient Medication Changes/Routing HYDROcodone-acetaminophen ([place] 5 mg-325 mg oral tablet) 1 Tablet(s), Oral, every 4 hours as neededfor Pain No more than 4,000mg acetaminophen/24hrs Misc Prescription (Trazapam 15 mg) i po daily for sleep Misc Prescription (Misc Prescription) See Instructions testoterone--80 mg IM per week--(has been taking past 8 months) Misc Prescription (Misc Prescription) migraine prevention medication, daily. Stop Taking the Following Medications: Medication list as of 12-04-15 11:10 Attention: If you have any medications at [...] Electronically Signed By: ROC ROMERO CNP Signed On:04-DEC-2015 11:10:40 Additional Information: Source: [facility] POWERCHART Document Id: [id number] Miscellaneous - Joes Villa, R.N. 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 Entered On: 12/04/2015 9:52 CDT Performed On: 12/04/2015 9:49 CDT by JOSE VILLA alberene stone setter Chief Complaint : back and ovary pain Peripheral Pulse Rate : 66 /min Systolic Blood Pressure : 124 mmHg Diastolic Blood Pressure : 86 mmHg NIBP Mean : 99 mmHg BP Location : Left upper extremity Blood Pressure Cuff Size : Regular Height : 163 cm(Converted to: 5 ft 4 inch(es), 64 inch(es)) Actual Weight : 69.5 kg(Converted to: 153 lb 4 oz) Weight Source : Standing scale Dosing Weight Clinic : 69.5 kg Clinic BSA : 1.77 Body Mass Index : 26.16 kg/m2 JOSE VILLA RN - 12/04/2015 9:49 CDT General Info Information Given By : Patient Languages : Ukrainian Is Patient Female and 13-50 no hysterectomy : Yes Status : Patient denies Are you ? : No JOSE VILLA RN - 12/04/2015 9:49 CDT Subjective Pain Symptoms : Yes JOSE VILLA RN - 12/04/2015 9:49 CDT Pain Scale Pain Scale Verbal 0-10 : Open JOSE VILLA RN - 12/04/2015 9:49 CDT Pain Pain Assessment Grid Pain 1 Location : Lower back Laterality : Right Intensity : 10 Aggravating Factors : Movement JOES VILLA RN - 12/04/2015 9:49 CDT Dependent Habits Exposure to Tobacco Smoke : Patient smokes Smoking Status : Current every day smoker Tobacco 2A : Yes Tobacco Use/Currently Using : Yes Tobacco Use/Last 30 Days : Yes Tobacco Use/Last 12 months : Yes Type : Cigarettes: Less than 20 per day Tobacco Use/Advised to Quit : Yes JOSE VILLA RN - 12/04/2015 9:49 CDT Recreational Drug Use Grid Drug Use : None JOSE VILLA RN - 12/04/2015 9:49 CDT Source: [facility] POWERCHART Document Id: [id number] CDT!44 documented in this encounter Plan of Treatment Upcoming Encounters Date Type Specialty Care Team Description 05/23/2022 Telemedicine Endocrinology Arely Bond M.B., B.Ch. [address] [place] [address] [phone] (Wo rk) documented as of this encounter Procedures Procedure Name Priority Date/Time Associated Comments Diagnosis BACTERIAL CULTURE, Routine 12/04/2015 10:15 Resul ts for this AEROBIC, URINE AM CDT procedure are in the results section. URINALYSIS WITH Routine 12/04/2015 10:08 Results for this MICROSCOPIC AM CDT procedure are i n the results section. documented in this encounter Results Bacterial Culture, Aerobic, Urine (12/04/2015 10:15 AM CDT) [facility] Method Time Signature Bacterial POWERCHART Culture, Aerobic, Urine HXFinal Mixed diana. No POWERCHART further studies unless notified. [facility] Microbiology laboratory [phone]. Specimen (Source) Anatomical Collection Method Collection Time Re ceived Time Location / / Volume Laterality Urine, First 12/04/2015 10:15 Voided AM CDT Roc Romero APRN, C.N.P., M.S.N. LAB MICROBIOLOGY - GENERAL ORDERABLES Performing Organization Address City/State/[facility] Code Phon e Number POWERCHART (ABNORMAL) Urinalysis, Complete, Includes Microscopic (12/04/2015 10:08 AM CDT) [facility] Method Time Signature HXUr Color Yellow Colorless POWERCHART Clarity Clear Clear POWERCHART Glucose Negative Negative MGDL POWERCHART HXBILIRUBIN Negative Negative POWERCHART Ketones, QL(U) Negative Negative MGDL POWERCHART Specific 1.020 POWERCHART Patterson, POCT, U Comment: Reference Range Specific Patterson: 1.000-1.035 HXBLOOD Negative Negative POWERCHART pH, POCT, Urine 7.0 <5.0 POWERCHART Comment: Reference Range pH: 5.0-8.0 [...] Location / / Volume Laterality Urine, First 12/04/2015 10:08 Voided AM CDT Roc Romero APRN, C.N.P., M.S.N. LAB URINE ORDERABL ES Performing Organization Address City/State/ZIP Code Phon e Number POWERCHART documented in this encounter Visit Diagnoses Not on filedocumented in this encounter
--- OUTSIDE RECORDS SUMMARY | 2022-04-12 08:15 | XMS_ITS | Encounter Summary ---
:1995 Author Organization [facility] Address [address] [place] [id number] Care Team Providers Name Role Phone Unavailable Primary Care Provider Unavailable Encounter Details Date Type Department Care Team Description 12/05/2015 Hospital Encounter HX [facility] Roc Velasco, GENO, C.N.P., M.S.N. [address] [place], [place] [phone] (Wo rk) Social History [...] 03/20/2022 relatives? How often do you attend taoism or denominational services? Never 03/20/2022 Do you belong to any clubs or organizations such as No 03/20/2022 taoism groups, unions, fraternal or athletic groups, or [...] - Height 163 cm (5' 4.17) 12/05/2015 12:28 PM CDT Body Mass Index - - [...] - Conversion, Historical Provider Ser - 12/06/2015 8:53 AM CDT Coding Summary-Paper Based CODING DATE: 12/06/[address] [facility] STATUS: * Discharged to Home or Self Care PAYOR: [employer] ADMIT DX: REASON FOR VISIT DX: FINAL DX: PRINCIPAL: R10.9 Unspecified abdominal pain SECONDARY: PROCEDURES DOCTOR NAME DATE NOTE: The code number assigned matches the documented diagnosis and / or procedure in the patient's chart. However, the narrative phrase printed from the coding software may appear abbreviated, or result in slightly different terminology. Coded By: KALEE BROWN Date Saved: 12/06/2015 08:53 am Source: [facility] Document Id: [id number] Electronically signed by Conversion, [facility] Provider Ser at 11/09/2016 6:07 PM CDT Miscellaneous - Roc Romero APRN, C.N.Reid, M.S.N. - 12/05/2015 1:32 PM CDT Work Excuse December 05, 2015 NAZ CHAKRABORTY [address] [place] [phone] Dear NAZ CHAKRABORTY, You were examined in my office on: 12/04/15 and 12/05/15 Reason for work excuse: Medical Illness ( _x ) Yes ( _ ) No Injury ( _ ) Yes ( _x ) No Is excused from all work: ( _x ) Yes ( _ ) No Return to Work date: _ May return evening of 12/06/15 Notes: _ Off work for 24 hours Sincerely, ROC ROMERO [address] [place] [address] Electronic Signature Electronically Signed By: ROC ROMERO CLIENT SUPPORT ASSOCIATE On: December 05, 2015 This document has images extracted. Source: [facility] [employer] Document Id: [id number] Electronically signed by [facility], [facility] Skilled Nursing Case Manager [id number] at 11/09/2016 6:07 PM CDT Miscellaneous - Roc Romero APRN C.N.P., M.S.N. - 12/05/2015 1:31 PM CDT Results Notification Document Contains Addenda Addendum by ILDEFONSO ZEPEDA on December 05, 2015 14:05:04 CDT The pt. work excuse letter to his employer was faxed today by a [facility] staff member. From: ROC ROMERO CNP To: KIRBY NELSON MD; Cc: ABDIEL Gutier[facility]; Sent: 12/05/2015 13:31:23 CDT Show up: 12/05/2015 13:23:00 CDT Subject: Results Notification Spoke with patient about x-ray results. I took a look at images and stool can be seen throughout theleft and right side as well as within pelvis. Constipation is consistent with symptoms of cramping, increasing pressure and discomfort. Patient took one dose of Miralax yesterday and one today. Instructed to repeat Miralax dose today and take daily for the next two weeks to induce daily bowel movements. In addition, should take a stimulant laxative today, such as senna or dulcolax and repeat in 6 hours if needed. Instructed patient to be pushing oral fluids as well, such as Gatorade, to make the medication most effective and stay hydrated. I will be faxing a work excuse to employer stating off work for the next 24 hours so that patient can focus on bowels/hydration and get some sleep since he has been awake since yesterday with this pain. It will be faxed Attn: Angela at [phone] Instructed patient to follow up with Dr. Nelson for constipation management, sooner if recommended medications do not produce bowel movements associated with decreasing pain and pressure. Roc Romero CNP Results: Date Result Type Result Name 12/05/2015 12:49 Radiology XR Abdomen 2 Views Source: [facility] POWERCHART Document Id: [id number] Electronically signed by Rodri, [facility] Skilled Nursing Case Manager [id number] at 11/09/2016 6:07 PM CDT documented in this encounter Plan of Treatment Upcoming Encounters Date Type Specialty Care Team Description 05/23/2022 Telemedicine Endocrinology Arely Bond M.B., B.Ch. [address] [place] [phone] (Wo rk) documented as of this encounter Procedures Procedure Name Priority Date/Time Associated Diagnosis Comme nts DX ABDOMEN SUPINE Routine 12/05/2015 12:37 PM Res ults for this WITH UPRIGHT OR CDT procedure ar e in DECUBITUS 2 VIEWS the result s section. documented in this encounter Results DX Abdomen Supine with Upright or Decubitus 2 Views (12/05/2015 12:37 PM CDT) Anatomical Region Laterality Modality Abdomen Right Radiographic Imaging Specimen (Source) Anatomical Collection Method Collection Time Re ceived Time Location / / Volume Laterality 12/05/2015 12:37 PM CDT Addenda Addendum by Provider, Thea Mackenzie 12/05/2015 12:37 PM CDT RAD^^^MA XR Abdomen 2 Views 12/05/2015 12:37:24 Impressions 12/05/2015 12:45 PM CDT Supine and upright views the abdomen show large amount stool in the colon. Normal bowel gas pattern. No obstruction or extraluminal air. Lung bases are tamara r. No acute bony or soft tissue abnormality. Narrative 12/05/2015 12:45 PM CDT EXAM: XR Abdomen 2 Views INDICATION: abdominal pain; suspect cons tipation FINDINGS/ Procedure Note Doug Amaral M.D. / Provider, Victorina shea M.D. - 10/19/2016 EXAM: XR Abdomen 2 Views INDICATION: abdominal pain; suspect cons tipation FINDINGS/IMPRESSION: Supine and upright views the abdomen show large amount stool in the colon. Normal bowel gas pattern. No obstruction or extraluminal air. Lung bases are tamara r. No acute bony or soft tissue abnormality. Ynes Domínguez R.T.(R)(CT), R.T.(R) IMG DIAGNOSTIC YESSENIA GING PROCEDURES documented in this encounter Visit Diagnoses Not on filedocumented in this encounter
--- OUTSIDE RECORDS SUMMARY | 2022-04-12 08:15 | XMS_ITS | Encounter Summary ---
:1995 Author Organization [facility] Address [address] [place] [address] Care Team Providers Name Role Phone Unavailable Primary Care Provider Unavailable Encounter Details Date Type Department Care Team Description 11/08/2015 Hospital Encounter HX NO MAPPING Megan Romero, GENO , C.N.P., M.S.N. [address] [place] [address] [phone] (Wo rk) Social History Tobacco Use [...] How often do you attend jain or yarsanism services? Never 03/20/2022 Do you belong to [...] place to sleep or slept in a assisted (including now)? Sex Assigned at Date Recorded [...] Miscellaneous - Conversion, Historical Provider Ser - 11/08/2015 11:59 PM CDT Coding Summary-Paper Based CODING DATE: 11/20/2015 FINAL [facility] STATUS: * Discharged to Home or Self Care PAYOR: [employer] ADMIT DX: REASON FOR VISIT DX: FINAL DX: PRINCIPAL: R10.2 Pelvic and perineal pain SECONDARY: PROCEDURES DOCTOR NAME DATE NOTE: The code number assigned matches the documented diagnosis and / or procedure in the patient's chart. However, the narrative phrase printed from the coding software may appear abbreviated, or result in slightly different terminology. Coded By: REE HOUSER Saved: 11/20/2015 03:31 pm Source: [facility] POWERCHART Document Id: [id number] documented in this encounter Plan of Treatment Upcoming Encounters Date Type Specialty Care Team Description 05/23/2022 Telemedicine Endocrinology Arely Bond M.B., B.Ch. [address] [place] [address] [phone] (Wo rk) documented as of this encounter Visit Diagnoses Not on filedocumented in this encounter
--- OUTSIDE RECORDS SUMMARY | 2022-04-12 08:15 | XMS_ITS | Encounter Summary ---
:1995 Author Organization [facility] Address [address] [place] [address] Care Team Providers Name Role Phone Unavailable Primary Care Provider Unavailable Encounter Details Date Type Department Care Team Description 12/05/2015 Hospital Encounter HX [facility] Madhav Due[facility]as ED, M.D. [address] [place], [place] [phone] (Wo rk) Social History Tobacco Use Types [...] How often do you attend adventism or tenriism services? Never 03/20/2022 Do you belong to [...] Sign Reading Time Taken Comments Blood Pressure 120/84 12/05/2015 5:08 PM CDT Pulse 62 12/05/2015 5:08 PM CDT Temperature - - Respiratory Rate 16 12/05/2015 5:08 PM CDT Oxygen Saturation - - Inhaled Oxygen Concentration - - Weight - - Height 163 cm (5' 4.17) 12/05/2015 5:08 PM CDT Body Mass Index - - documented in this encounter Discharge Summaries Brenda Castano, R.N. - 12/05/2015 6:17 PM CDT ED Depart Summary [facility] Emergency Department Clinical Discharge Summary PERSON INFORMATION Name NAZ RICARDO Age 20 Years 1995 12:00 PM Sex Female Language Cypriot PCP KALEE MORENO MD Marital Status Single Visit Id Visit Reason Constipation; abdominal pain, cramping Specialty Enc Type Emergency Med Service Emergency Medicine Referred by Track Group [email or web address] ED Discharge 12/05/2015 6:15 PM Tracking Id [id number] Checkout 12/05/2015 6:15 PM Checkin 12/05/2015 4:07 PM Acuity 4 -Less Urgent Dispo Type * Discharged to Home or Self Care Arrival 12/05/2015 4:07 PM Reg Status LOS 000 02:08 Address: [address] [place] [phone] Comment: PROVIDER INFORMATION Provider Role Provider Contact Time MADHAV BROWN MD ED Provider 12/05/15 16:21 BRENDA CASTANO SENIOR PATROL AGENT Nurse 12/05/15 16:50 DIAGNOSIS Pain Abdominal NOS Comment: PATIENT EDUCATION INFORMATION Instructions: Abdominal Pain, Adult Follow up: With: Address: When: KALEE MORENO [address] [place] [phone] Business (1) Within As Needed Source: [facility] POWERCHART Document Id: [id number] Brenda Castano R.N. - 12/05/2015 6:17 PM CDT ED Discharge Instructions [facility] [address] [place] [address] Name: NAZ RICARDO Date of : 1995 12:00 PM Visit Date: 12/05/2015 4:07 PM [facility] Number: [id number] Address: [address] [place] [phone] Primary Care Provider: KALEE MORENO MD IMPORTANT: [facility] in [place] would like to thank you for allowing us to assistyou with your healthcare needs. The following includes patient education materials and information regarding your injury/illness. Diagnosis: Pain Abdominal NOS Follow-Up Instructions: With: Address: When: KALEE MOERNO [address] [place] [phone] Business (1) Within As Needed Your Upcoming [...] foods again, start with small amounts of [id number], low-fat foods, such as applesauce, toast,or crackers. [...] Elevate the head of your bed. ?? [phone] Moises Weiss, [address] [facility], [place] [address]. All rights reserved. This information is not [...] dont have one. Go to [email or web address] and click on Create Your Account. Then, follow the directions to complete the online form. Youll be asked for your [facility] number which you can find at the top of this document. ED Tests and Procedures: Order Status Discharge Prescriptions & Home Medications: Medication/Strength Dose Route Frequency Indications/Special Instructions/Comments/Notes traMADol (traMADol 50 mg oral tablet) 50 mg Oral every 4 hours as needed for Pain HYDROcodone-acetaminophen (Montrose 5 mg-325 mg oral tablet) 1 tab(s) Oral every 4 hours as needed for Pain No more than 4,000mg acetaminophen/24hrs Misc [...] a responsible republican. DAVION Domingo KALLIE MARIE or responsible republican have received this information [...] a responsible republican. DAVION Domingo KALLIE MARIE or responsible republican have received this information and my questions have been answered. I have discussed any challenges I see with this plan with the nurse or physician. Patient Signature or Responsible Green Party/Relationship Date Time Provider Signature Date Time Source: [facility] POWERCHART Document Id: [id number] documented in this encounter Medications at Time [...] 015 500 mg tablet mouth. Mis Prescription Mis Prescription See 0 016 03/20/2022 (Allergy Immunotherapy) Instructions, testoterone--80 mg IM per week--(has been taking past 8 months) traZODone (DESYREL) 100 Take 1 tablet by 0 201412/01/2019 mg tablet mouth. traZODone (DESYREL) 100 Take 1 tablet by 0 201403/20/2022 mg tablet mouth at bedtime. documented as of this encounter ED Notes Brenda Castano, R.N. - 12/05/2015 5:55 PM CDT ED Disposition Summary ED Disposition Summary Entered On: 12/05/2015 17:55 CDT Performed On: 12/05/2015 17:55 CDT by BRENDA CASTANO SENIOR PATROL AGENT Disposition Summary Present in Room During Exam/Procedure : Alone Mode of Discharge : Ambulatory Transportation : Private vehicle Discharge From ED With : Home Med List Printed Discharge Instructions Given to Patient : Yes Patient Status at Discharge from ED : Improved BRENDA CASTANO RN - 12/05/2015 17:55 CDT [facility] Document Id: [id number] CDT!8 Brenda Castano R.N. - 12/05/2015 5:41 PM CDT ED Nurse Reassess ED Nurse Reassess Entered On: 12/05/2015 17:44 CDT Performed On: 12/05/2015 17:41 CDT by BRENDA CASTANO RN Pain Assessment Pain Symptoms : No BRENDA CASTANO RN - 12/05/2015 17:41 CDT Comfort Measures Comfort Measures Grid [place] Application : Yes Comfortable Environment : Yes BRENDA CASTANO RN - 12/05/2015 17:41 CDT Comfort Measures Response : Comfort level increased BRENDA CASTANO RN - 12/05/2015 17:41 CDT Resp Reassess Respiratory Patient Stated Symptoms : None Distress : None BRENDA CASTANO RN - 12/05/2015 17:41 CDT CV Reassess CV Patient Stated Symptoms : None BRENDA CASTANO RN - 12/05/2015 17:41 CDT Neuro Reassess Last Well Time Known : Not applicable Orientation : Oriented x 3 Characteristics of Speech : Clear Level of Consciousness : Alert BRENDA CASTANO RN - 12/05/2015 17:41 CDT Zalma Coma Eye Opening Response Jessenia : Spontaneously Best Verbal Response Zalma : Oriented Best Motor Response Jessenia : Obeys simple commands Jessenia Coma Score : 15 BRENDA CASTANO RN - 12/05/2015 17:41 CDT Behavioral Health Screen/Safety Reassmt Affect/Behavior : Calm, Cooperative, Appropriate BRENDA CASTANO RN - 12/05/2015 17:41 CDT GI Reassess GI Patient Stated Symptoms : Constipation, Cramping BRENDA CASTANO RN - 12/05/2015 17:41 CDT /OB Reassess Patient Stated Symptoms : None BRENDA CASTANO RN - 12/05/2015 17:41 CDT Source: [facility] Document Id: [id number] CDT!29 Brenda Castano R.N. - 12/05/2015 5:15 PM CDT ED Treatments and Procedures ED Treatments and Procedures Entered On: 12/05/2015 17:31 CDT Performed On: 12/05/2015 17:15 CDT by BRENDA CASTANO RN Enema Admin Enema Type : Tap water Enema Results : Large amount of stool Enema Procedure Tolerance : Good Enema Procedure Response : Expected BRENDA CASTANO RN - 12/05/2015 17:31 CDT Source: [facility] Document Id: [id number] CDT!6 Madhav Brown M.D. - 12/05/2015 5:08 PM CDT Constipation Patient: NAZ RICARDO Age: 20 years Sex: Female : 1995 Author: MADHAV BROWN MD Attachments: None Associated Diagnosis: Pain Abdominal NOS Basic Information Time seen: Immediately upon arrival. History source: Patient. Arrival mode: Private vehicle. History limitation: None. History of Present Illness The patient presents with constipation and 20-year-old transgender male on testosterone times roughly 10 months presents for evaluation of abdominal pain. He was in clinic yesterday and both blood tests and films were done. Plain x- rays were relatively unremarkable and pelvic ultrasound was negative for acute pathology. Previous history of ovarian cysts. Working diagnosis at discharge from clinic was constipation. Laxatives were recommended. He took those and now feels even more pressure. Pain is colicky and consistently right-sided, more lower than upper. No vomiting. Last bowel movement was about 4 days ago. This is unusual for him.. The onset was 2days ago. The course/duration of symptoms is fluctuating in intensity and Pain is occasionally completely gone but returns. Sharpish and colicky.. Last bowel movement 4 day(s) ago. Character of constipation unable to defecate. The degree at present is moderate. The exacerbating factor is none. The relieving factor is none. Review of Systems Constitutional symptoms: Negative except as documented in HPI. Cardiovascular symptoms: Negative except as documented in HPI. Gastrointestinal symptoms: Nausea and constipation. Genitourinary symptoms: Negative except as documented in HPI. Health Status Allergies: Allergic Reactions (Selected) NKA. 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 Surgical history: No active procedure history items have been selected or recorded.. Family history: No family history items have been selected or recorded.. Physical Examination Vital Signs: Vital Signs 12/05/2015 9:11 CDT Peripheral Pulse Rate 53 /min LOW SpO2 99 % Systolic Blood Pressure 125 mmHg Diastolic Blood Pressure 74 mmHg Mean Arterial Pressure 91 mmHg BP Location Left upper Blood Pressure Cuff Size Regular 12/04/2015 14:09 CDT Temperature Core 36.7 DegC Peripheral Pulse Rate 74 /min Respiratory Rate 12 /min LOW SpO2 95 % Systolic Blood Pressure 110 mmHg Diastolic Blood Pressure 80 mmHg Mean Arterial Pressure 90 mmHg BP Location Right upper Blood Pressure Cuff Size Regular 12/04/2015 9:49 CDT Peripheral Pulse Rate 66 /min Systolic Blood Pressure 124 mmHg Diastolic Blood Pressure 86 mmHg Mean Arterial Pressure 99 mmHg BP Location Left upper Blood Pressure Cuff Size Regular , Measurements 12/05/2015 12:28 CDT Height 163 cm 12/05/2015 9:16 CDT Height 163 cm 12/05/2015 9:11 CDT Height 163 cm 12/05/2015 8:47 CDT Height 163 cm 12/04/2015 14:09 CDT Height 163 cm Dosing Weight 70.9 kg Actual Weight 70.9 kg Weight Source Standing scale Body Mass Index 26.69 kg/m2 BSA 1.79 12/04/2015 13:58 CDT Height 163 cm 12/04/2015 9:49 CDT Height 163 cm Dosing Weight 69.5 kg Actual Weight 69.5 kg Weight Source Standing scale Body Mass Index 26.16 kg/m2 BSA 1.77 12/04/2015 9:40 CDT Height 163 cm , SpO2 12/05/2015 9:11 CDT SpO2 99 % 12/04/2015 14:09 CDT SpO2 95 % . General: Alert and no acute distress. Skin: Warm, dry and pink. Head: Normocephalic. Neck: Supple. Eye: Pupils are equal, round and reactive to light. Cardiovascular: Regular rate and rhythm and No murmur. Respiratory: Lungs are clear to auscultation and respirations are non-labored. Chest wall: No tenderness. Back: Nontender. Musculoskeletal: Normal ROM Gastrointestinal: Soft, Tenderness: Mild, right lower quadrant, Guarding: Negative, Rebound: Negative and Bowel sounds: Normal. Genitourinary Neurological: Alert and oriented to person, place, time, and situation and No focal neurological deficit observed. Lymphatics Psychiatric: He is pretty frustrated.. Medical Decision Making Rationale:He expressed concern that there was no firm diagnosis and that perhaps the clinic was justguessing. I talked to him about the fact that abdominal pain off and goes without a definitive diagnosis, particularly at first. The abdominal exam is very benign. He feels worse after laxatives, but also has not had a bowel movement. Increased cramping is not unusual. I did solicit his feet back on what he wanted to do, but I think giving an enema with at least let us sort out whether not decreasing is intestinal pressure relieved his pain. I am glad they did a pelvic ultrasound. However, it does not provide any additional insight into thepain at this point. He wondered about gallbladder disease, but is not tender under the right rib cage.. Reexamination/ Reevaluation Better post enema. I think the working diagnosis of constipation is still good. Recommend discontinuation of Dulcolax with continuation of MiraLAX until such point as he is having 2 soft bowel movements per day. That he may taper down as well. He is comfortable going home. Return if worse or if symptoms change. Impression and Plan Diagnosis Pain Abdominal NOS (Discharge, Emergency medicine, Medical) Plan Condition: Stable. Disposition: Discharged: Time 12/05/2015 17:44:00, to home. Patient was given the following educational materials: Abdominal Pain, Adult. Follow up with: KALEE MORENO Within As Needed. Counseled: Patient. Electronically Signed By: MADHAV BROWN MD On: 12/05/2015 05:45 PM Modified by and Electronically Signed by: MADHAV BROWN MD On: 12/05/2015 05:45 PM Source: [facility] POWERCHART Document Id: [id number]} Brenda Castano, RDarioN. 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 ; Life Cycle Date: 2015 ; Life Cycle Status: Active ; Vocabulary: ICD-10-CM Migraine Headache (WHITE) NOS (ICD-10-CM :G43.909 ) Name of Problem: Migraine Headache (WHITE) NOS ; Recorder: FELI GROSS MD; Confirmation: Confirmed ; Classification: Medical ; Code: G43.909 ; Contributor System: Fittr ; Last Updated: 08/02/2015 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 Has had abd painfor 3 days, saw OB-MAINTENANCE SUPERINTENDENT yesterday; abd x.ray showed constipation. Directed pt to take laxatives. Pt took Ducolax and Malox today, since has had severe abd cramping and nausea. Information Given By : Patient Present in Room During Exam/Procedure : Alone Mode of Arrival ED : Private vehicle Track : Medical Languages : Cypriot Vital Signs Assessed : Yes GCS Assessed : Yes Treatments Prior to Arrival : None Are you ? : No Is Patient Female and 13-50 no hysterectomy : Yes Status : Patient denies BRENDA CASTANO CASH - 12/05/2015 16:12 CDT Vital Signs Temperature Core : 36.9 DegC(Converted to: 98.4 DegF) Peripheral Pulse Rate : 63 /min Respiratory Rate : 16 /min Systolic Blood Pressure : 133 mmHg Diastolic Blood Pressure : 96 mmHg (>HHI) NIBP Mean : 108 mmHg BP Location : Right upper extremity SpO2 : 98 % Oxygen Saturation Monitoring Frequency : Intermittent Height : 163 cm(Converted to: 5 ft 4 inch(es)) Height Source : Estimated Estimated Weight : 75 kg Estimated Weight Conversion to Pounds : 165 lb BRENDA CASTANO CASH - 12/05/2015 16:12 CDT Zalma Coma Eye Opening Response Zalma : Spontaneously Best Verbal Response Jessenia : Oriented Best Motor Response Jessenia : Obeys simple commands Jessenia Coma Score : 15 BRENDA CASTANO CASH - 12/05/2015 16:12 CDT Pain Assessment Pain Symptoms : Yes BRENDA CASTANO CASH - 12/05/2015 16:12 CDT Pain Scale Pain Scale Verbal 0-10 : Open BRENDA CASTANO CASH - 12/05/2015 16:12 CDT Pain Pain Assessment Grid Pain 1 Location : Abdomen Laterality : Bilateral Intensity : 10 Time Pattern : Constant Quality : Cramping, Sharp BRENDA CASTANO CASH - 12/05/2015 16:12 CDT Comfort Measures Comfort Measures Grid Comfortable Environment : Yes Quiet Environment : Yes Relaxation : Yes Rest : Yes BRENDA CASTANO ACSH 12/05/2015 16:12 CDT ANA ANA Level 1 : No ANA Level 2 : No ANA Level 3 : One TATIANNABRENDA PEREZ CASH - 12/05/2015 16:12 CDT DCP GENERIC CODE Tracking Group : [facility] ED Tracking Acuity : 4 -Less Urgent BRENDA CASTANO CASH - 12/05/2015 16:12 CDT Allergy (As Of: 12/05/2015 17:34:21 CDT) Allergies (Active) NKA Estimated Onset Date: Unspecified ; Created By: ERIC LOPEZ RN; Reaction Status: Active ; Substance: NKA ; Type: Allergy ; Updated By: ERIC LOPEZ RN; Reviewed Date: 12/05/2015 17:08 CDT ID Screen Drug Resistant Organism : No Travel Within Last 21 Days : No Contact with someone with Ebola : No ARUNBRENDA Katherine CASTREJON - 12/05/2015 16:12 CDT Immunizations Immunizations Current : Yes BRENDA CASTANO Katherine CASTREJON - 12/05/2015 16:12 CDT Respiratory Airway : Patent Respirations : Unlabored Respiratory Pattern : Regular TATIANNAOANHBRENDA Cam Katherine CASTREJON - 12/05/2015 17:31 CDT Cardiovascular Heart Rhythm : Regular Skin Color : [place] Skin Description : Normal Skin Temperature : Warm BRENDA CASTANO Katherine CASTREJON 12/05/2015 17:31 CDT Neurological Last Well Time Known : Not applicable Level of Consciousness : Alert Orientation : Oriented x 3 Characteristics of Speech : Clear BRENDA CASTANO Katherine CASTREJON 12/05/2015 17:31 CDT ED Psychosocial Affect/Behavior : Calm, Cooperative, Appropriate Domestic Abuse Concerns : None Behavioral Health Screen/Safety Assmt : No TATIANNAOANHBRENDA Cam Katherine CASTREJON - 12/05/2015 17:31 CDT Gastrointestinal Nutrition ED : Adequate GI Detailed Assessment : Yes TATIANNAOANHBRENDA Cam Katherine CASTREJON 12/05/2015 17:31 CDT GI Detailed GI Patient Stated Symptoms : Abdominal pain, Constipation ARUN BRENDA Katherine CASTREJON - 12/05/2015 17:31 CDT Integumentary Integumentary Patient Stated Symptoms : None TATIANNACHRISBRENDA Katherine CASTREJON 12/05/2015 17:31 CDT Musculoskeletal Fall Prevention Education Provided : Yes ARUN BRENDABARB Murphy RN - 12/05/2015 17:31 CDT Social Habits Tobacco Use/Advised to Quit : Yes ARUN BRENDABARB Murphy RN - 12/05/2015 17:31 CDT Exposure to Tobacco Smoke : Patient smokes Smoking Status : Current every day smoker Tobacco 2A : Yes Tobacco Use/Currently Using : Yes Tobacco Use/Last 30 Days : Yes Tobacco Use/Last 12 months : Yes Type : Cigarettes: Less than 20 per day BRENDA CASTANO RN - 12/05/2015 16:12 CDT Alcohol Use Grid Alcohol Use : Yes Frequency : Weekly BRENDA CASTANO RN - 12/05/2015 16:12 CDT Recreational Drug Use Grid Drug Use : None BRENDA CASTANO RN - 12/05/2015 16:12 CDT [facility] Document Id: [id number] CDT!107 documented in this encounter Miscellaneous Notes Miscellaneous - Conversion, Historical Provider Ser - 12/05/2015 6:15 PM CDT Coding Summary-Paper Based CODING DATE: 12/13/[address] [facility] STATUS: * Discharged to Home or Self Care PAYOR: [employer] ADMIT DX: K59.00 Constipation, unspecified REASON FOR VISIT DX: K59.00 Constipation, unspecified FINAL DX: PRINCIPAL: R10.31 Right lower quadrant pain SECONDARY: F17.210 Nicotine dependence, cigarettes, uncomplicated PROCEDURES DOCTOR NAME DATE NOTE: The code number assigned matches the documented diagnosis and / or procedure in the patient's chart. However, the narrative phrase printed from the coding software may appear abbreviated, or result in slightly different terminology. Coded By: HARVINDER ONOFRE Date Saved: 12/13/2015 01:50 pm Source: [facility] Document Id: [id number] Miscellaneous - Brenda Castano RAdebayo - 12/05/2015 5:55 PM CDT Valuables/Belongings Valuables/Belongings Entered On: 12/05/2015 17:56 CDT Performed On: 12/05/2015 17:55 CDT by BRENDA CASTANO RN Valuables/Belongings Belongings Sent Home With : all sent with pt at d/c Home Medication Disposition : None brought in with patient BRENDA CASTANO RN - 12/05/2015 17:55 CDT Source: [facility] Document Id: [id number] CDT!4 Miscellaneous - Brenda Castano R.N. - 12/05/2015 4:07 PM CDT Facility Charge Ticket 2.0 11.0 DX Facility Charge Ticket 2.0 11.0 DX Entered On: 12/05/2015 17:56 CDT Performed On: 12/05/2015 16:07 CDT by BRENDA CASTANO RN Facility Charge Ticket 2.0 11.0 DX ED Other Charges : Standard ED Encounter TVL Level Translated RTF : Constipation TVL:3 TVL Level for Facility Charge Ticket : Level 3 Arrival Mode Calc : 1 Mode of Arrival ED : Private vehicle [place] Mode of Arrival Interpreted : Standard [place] Process Management : None [facility] Order Management : None 30 Minutes Critical Care : No Nursing Notes RTF : Nursing Notes ED Primary Assessment,12/05/15 16:12,BRENDA CASTANO SENIOR PATROL AGENT Nurse Reassess,12/05/15 17:41,BRENDA CASTANO RN [place] Nursing Assessment : Triage and 1-2 nursing assessments [place] Disposition : Discharge Disposition RTF : discharge [place] Total Points with Diagnosis Control : 5 [place] Visit Level : 41461 Level 3 Treatments Prior to Arrival : None BRENDA CASTANO RN - 12/05/2015 17:56 CDT Source: [facility] Document Id: [id number] CDT!18 documented in this encounter Plan of Treatment Upcoming Encounters Date Type Specialty Care Team Description 05/23/2022 Telemedicine Endocrinology Arely Bond M.B., B.Ch. [address] [place], [place] [phone] (Wo rk) documented as of this encounter Visit Diagnoses Not on filedocumented in this encounter
--- OUTSIDE RECORDS SUMMARY | 2022-04-12 08:15 | XMS_ITS | Encounter Summary ---
:1995 Author Organization [facility] Address [address] [place] [address] Care Team Providers Name Role Phone Unavailable Primary Care Provider Unavailable Encounter Details Date Type Department Care Team Description 08/01/2015 Hospital Encounter HX [facility] Arun Badillo M.D. [address] [place] [address] 021 (Wo rk) Social History Tobacco Use [...] 03/20/2022 relatives? How often do you attend catholic or congregation services? Never 03/20/2022 Do you belong to any clubs or organizations such as No 03/20/2022 catholic groups, unions, fraternal or athletic groups, or [...] Sign Reading Time Taken Comments Blood Pressure 115/71 08/01/2015 11:29 PM NAILHEAD SETTER Pulse 71 08/01/2015 11:29 PM NAILHEAD SETTER Temperature - - Respiratory Rate 18 08/01/2015 11:29 PM NAILHEAD SETTER Oxygen Saturation - - Inhaled Oxygen Concentration - - Weight - - Height 162 cm (5' 3.78) 08/01/2015 11:29 PM NAILHEAD SETTER Body Mass Index - - documented in this encounter Discharge Summaries Lorrie Infante R.N. - 08/02/2015 12:11 AM CST ED Discharge Instructions [address] [address] Name: NAZ CHAKRABORTY Date of : 1995 12:00 PM Visit Date: 08/01/2015 7:20 PM [facility] Number: [id number] Address: [address] [place] [phone] Primary Care Provider: KALEE MORENO MD IMPORTANT: [facility] in [place] would like to thank you for allowing us to assistyou with your healthcare needs. The following includes patient education materials and information regarding your injury/illness. Diagnosis: Headache (WHITE) Drug Induced; Migraine Headache (WHITE) NOS Follow-Up Instructions: With: Address: When: KALEE MORENO [address] [place] [address] [phone] Business (1) Within 3 - 5 days Comments: Call for follow up appointment. For recheck. Also Please consider taking the medication prescribed as a complement for the testosterone so that the headaches are less frequent. Your Upcoming Appointments: Date Time Location Provider No Appointments found Patient Education Materials: Preventing Migraine Headaches: Triggers The first step in preventing migraines is to learn what triggers them. You may then be able to control your triggers to avoid or reduce the severity of your migraines. Know Your Triggers Be aware that you may have more than 1 trigger, and that some triggers may work together. Common migraine triggers include: ?? Food and nutrition. Skipping meals or not drinking enough water can trigger headaches. So can certain foods, such as caffeine, monosodium glutamate (MSG), aged cheese, or sausage. ?? Alcohol. Red wine and other alcoholic beverages are common migraine triggers. ?? Chemicals. Scents, cleaning products, gasoline, glue, perfume, and paint can be triggers. So can tobacco smoke, including secondhand smoke. ?? Emotions. Stress can trigger headaches or make them worse once they begin. ?? Sleep disruption. Staying up late, sleeping late, and traveling across time zones can disrupt your sleep cycle, triggering headaches. ?? Hormones. Many women notice that migraines tend to occur at a certain point in their menstrual cycle. control pills or hormone replacement therapy may also trigger migraines. ?? Environment and weather. Air travel, changes in altitude, air pressure changes, hot sun, or bright or flashing lights can be triggers. Control Your Triggers These are some of the things you can do to try to control triggers: ?? Avoid triggers if you can. For example, stay clear of alcohol and foods that trigger your headaches. Use unscented household products. Keep regular sleep habits. Manage stress to help control emotional triggers. ?? Change your behavior at times when triggers can't be avoided. For example, make sure to get enough rest and drink plenty of water while you're traveling. Make sure to carry a hat, sunglasses, and your medications. Be alert for migraine symptoms so you can treat a migraine early if it happens. ?? [id number] [facility], [address] [place] [address], [place] [address]. All rights reserved. This information is not intended as a substitute for professional medical care. Always follow your healthcare professional's instructions. Migraine Headache Migraine headaches are related to [...] ?? Difficulty with speech or vision ?? [id number] [place] [address]. All rights reserved. This information is not [...] if you dont have one. Go to [email or web address] and click on Create Your Account. Then, follow the directions to complete the online form. Youll be asked for your [facility] number which you can find at the top of this document. ED Tests and Procedures: Order Status Discharge Prescriptions & Home Medications: Medication/Strength Dose Route Frequency Indications/Special Instructions/Comments/Notes Misc Prescription (Misc Prescription) See Instructions testoterone--100 [...] document has images extracted. Please consider using [employer] for all your patient education needs. Source: [facility] [employer] Media[employer]ART Document Id: [id number] HEAD SETTER Lorrie Infante RWilla. - 08/02/2015 12:11 AM CST ED Depart Summary [facility] Emergency Department Clinical Discharge Summary PERSON INFORMATION Name NAZ CHAKRABORTY Age 20 Years 1995 12:00 PM Sex Female Language Amharic PCP KALEE MORENO MD Marital Status Single Visit Id Visit Reason Headache - Recurrent; HEAD PAIN Specialty Enc Type Emergency Med Service Emergency Medicine Referred by Track Group MAQN ED Discharge 08/01/2015 11:50 PM Tracking Id [id number] Checkout 08/01/2015 11:50 PM Checkin 08/01/2015 7:20 PM Acuity 3 -Urgent Dispo Type * Discharged to Home or Self Care Arrival 08/01/2015 7:20 PM Reg Status LOS 000 04:30 Address: [address] [place] [address] [place] [phone] Comment: PROVIDER INFORMATION Provider Role Provider Contact Time DOUG GROSS MD ED Provider 08/01/15 19:35 LORRIE INFANTE NEUROLOGY NURSE Nurse 08/01/15 19:37 DIAGNOSIS Headache (WHITE) Drug Induced; Migraine Headache (WHITE) NOS Comment: PATIENT EDUCATION INFORMATION Instructions: Preventing Migraine Headaches: Triggers; HEADACHE, Migraine (Classical) Follow up: With: Address: When: KALEE MORENO [address] [place] [address] [phone] [facility] (1) Within 3 - 5 days Comments: Call for follow up appointment. For recheck. Also Please consider taking the medication prescribed as a complement for the testosterone so that the headaches are less frequent. Source: [facility] POWERCHART Document Id: [id number] HEAD SETTER documented in this encounter Medications at Time [...] documented as of this encounter Nursing Notes Lorrie Infante R.N. - 08/01/2015 11:11 PM CST PRN Response PRN Response Entered On: 08/01/2015 23:34 NAILHEAD SETTER Performed On: 08/01/2015 23:11 NAILHEAD SETTER by LORRIE INFANTE RN PRN Medication Effectiveness Evaluation PRN Medication Effective : Yes Post Medication Pain Assessment : 0 LORRIE INFANTE RN - 08/01/2015 23:34 NAILHEAD SETTER Source: [employer] Document Id: [id number] NAILHEAD SETTER!4 HEAD SETTER Lorrie Infante R.N. - 08/01/2015 10:31 PM CST PRN Response PRN Response Entered On: 08/01/2015 22:39 NAILHEAD SETTER Performed On: 08/01/2015 22:31 NAILHEAD SETTER by LORRIE INFANTE RN PRN Medication Effectiveness Evaluation PRN Medication Effective : Yes Post Medication Pain Assessment : 3 LORRIE INFANTE RN - 08/01/2015 22:38 NAILHEAD SETTER Source: [employer] Document Id: [id number] NAILHEAD SETTER!4 HEAD SETTER documented in this encounter ED Notes Lorrie Infante RAdebayo - 08/02/2015 11:50 PM CST ED Disposition Summary ED Disposition Summary Entered On: 08/02/2015 0:08 NAILHEAD SETTER Performed On: 08/02/2015 23:50 NAILHEAD SETTER by LORRIE INFANTE RN ED Disposition Summary Accompanied By : Other: mother picked up in vehicle--alone til discharge Mode of Discharge : Ambulatory Transportation : Private vehicle Printed Discharge Instructions Given to Patient : Yes Patient Status at Discharge from ED : Improved LORRIE INFANTE RN - 08/02/2015 0:07 NAILHEAD SETTER Source: [employer] Document Id: [id number] NAILHEAD SETTER!7 HEAD SETTER Lorrie Infante R.N. - 08/01/2015 11:50 PM CST ED Education ED Education Entered On: 08/02/2015 0:09 NAILHEAD SETTER Performed On: 08/01/2015 23:50 NAILHEAD SETTER by LORRIE INFANTE RN Education ED Education Grid Topics : Discharge instructions/Medication list, Medication, Pain management, Plan of care, Other: follow up primary--zofran prn (has at home)--take med. prescribed earlier to decrease freq of headache Individuals Taught : Patient Barriers to Learning : None evident Teaching Method : Explanation, Printed materials Teaching Evaluation : Verbalizes understanding LORRIE INFANTE RN - 08/02/2015 0:08 NAILHEAD SETTER Source: [employer] Document Id: [id number] NAILHEAD SETTER!9 HEAD SETTER Lorrie Infante R.N. - 08/01/2015 11:50 PM CST ED Disposition Summary ED Disposition Summary Entered On: 08/02/2015 0:09 NAILHEAD SETTER Performed On: 08/01/2015 23:50 NAILHEAD SETTER by LORRIE INFANTE NEUROLOGY NURSE Disposition Summary Accompanied By : Alone Mode of Discharge : Ambulatory Transportation : Other: mom picked up pt Printed Discharge Instructions Given to Patient : Yes Patient Status at Discharge from ED : Improved LORRIE INFANTE RN - 08/02/2015 0:09 NAILHEAD SETTER Source: [employer] Document Id: [id number] NAILHEAD SETTER!7 HEAD SETTER Lorrie Infante R.N. - 08/01/2015 11:50 PM CST ED Pain Assessment ED Pain Assessment Entered On: 08/02/2015 0:09 NAILHEAD SETTER Performed On: 08/01/2015 23:50 NAILHEAD SETTER by LORRIE INFANTE RN Pain Assessment Pain Symptoms : No LORRIE INFANTE RN - 08/02/2015 0:09 NAILHEAD SETTER Source: [facility] [employer] Document Id: [id number] NAILHEAD SETTER!3 HEAD SETTER Lorrie Infante RDarioN. - 08/01/2015 11:33 PM CST ED Treatments and Procedures ED Treatments and Procedures Entered On: 08/01/2015 23:33 NAILHEAD SETTER Performed On: 08/01/2015 23:33 NAILHEAD SETTER by LORRIE INFANTE RN Peripheral IV Peripheral IV Assess/Intervention Grid Peripheral IV #1 IV Activity : Discontinue Removal : Catheter intact Number of Attempts : 1 Date of Insertion : 08/01/2015 NAILHEAD SETTER IV Site : Hand Laterality : Right Catheter Size : 20 Catheter Type : Over the needle Comments (Comment: cath intact--no complications [LORRIE INFANTE RN - 08/01/2015 23:33 NAILHEAD SETTER] ) LORRIE INFANTE RN - 08/01/2015 23:33 NAILHEAD SETTER Source: [facility] [employer] Document Id: [id number] NAILHEAD SETTER!12 HEAD SETTER Lorrie Infante RDarioN. - 08/01/2015 11:30 PM CST ED Nurse Reassess ED Nurse Reassess Entered On: 08/01/2015 23:30 NAILHEAD SETTER Performed On: 08/01/2015 23:30 NAILHEAD SETTER by LORRIE INFANTE RN Pain Assessment Pain Symptoms : No LORRIE INFANTE RN - 08/01/2015 23:30 NAILHEAD SETTER Source: [facility] [employer] Media[employer]ART Document Id: [id number] NAILHEAD SETTER!3 HEAD SETTER Lorrie Infante R.N. - 08/01/2015 10:03 PM CST ED Nurse Reassess ED Nurse Reassess Entered On: 08/01/2015 22:03 NAILHEAD SETTER Performed On: 08/01/2015 22:03 NAILHEAD SETTER by LORRIE INFANTE RN Pain Assessment Pain Symptoms : Yes LORRIE INFANTE RN - 08/01/2015 22:03 NAILHEAD SETTER Pain Scale Pain Scale Verbal 0-10 : Open LORRIE INFANTE RN - 08/01/2015 22:03 NAILHEAD SETTER Pain Pain Assessment Grid Pain 1 Location : Other: headache Intensity : 10 LORRIE INFANTE RN - 08/01/2015 22:03 NAILHEAD SETTER Source: [employer] Document Id: [id number] NAILHEAD SETTER!10 HEAD SETTER Lorrie Infante R.N. - 08/01/2015 9:44 PM CST ED Nurse Reassess ED Nurse Reassess Entered On: 08/01/2015 21:45 NAILHEAD SETTER Performed On: 08/01/2015 21:44 NAILHEAD SETTER by LORRIE INFANTE RN Pain Assessment Pain Symptoms : Yes LORRIE INFANTE RN - 08/01/2015 21:44 NAILHEAD SETTER Pain Scale Pain Scale Verbal 0-10 : Open LORRIE INFANTE RN - 08/01/2015 21:44 NAILHEAD SETTER Pain Pain Assessment Grid Pain 1 Location : Other: headache Intensity : 7 LORRIE INFANTE RN - 08/01/2015 21:44 NAILHEAD SETTER Source: [employer] Document Id: [id number] NAILHEAD SETTER!10 HEAD SETTER Lorrie Infante R.N. - 08/01/2015 8:48 PM CST ED Treatments and Procedures ED Treatments and Procedures Entered On: 08/01/2015 20:48 NAILHEAD SETTER Performed On: 08/01/2015 20:48 NAILHEAD SETTER by LORRIE INFANTE RN Peripheral IV Peripheral IV Assess/Intervention Grid Peripheral IV #1 IV Activity : Start Number of Attempts : 1 Date of Insertion : 08/01/2015 NAILHEAD SETTER IV Site : Hand Laterality : Right Catheter Size : 20 Catheter Type : Over the needle Site Condition : No complications Dressing/ Activity : Transparent LORRIE INFANTE RN - 08/01/2015 20:48 NAILHEAD SETTER Source: [facility] POWERCHART Document Id: [id number] NAILHEAD SETTER!13 HEAD SETTER Doug Gross M.D. - 08/01/2015 8:34 PM CST Headache - Recurrent Patient: NAZ CHAKRABORTY Age: 20 years Sex: Female : 1995 Author: DOUG GROSS MD Attachments: None Associated Diagnosis: Headache (WHITE) Drug Induced; Migraine Headache (WHITE) NOS Basic Information Time seen: Date & time 08/01/2015 20:00:00. History source: Patient. Arrival mode: Private vehicle, walking. History limitation: None. Additional information: Chief Complaint from Nursing Triage Note : Chief Complaint Description 08/01/2015 19:27 NAILHEAD SETTER Chief Complaint Description 20 year old female presents to er with recurrent migraine--seen in er last friday and given imitrex with no relief--since discharged from er, cont. with headache to left frontal lobe rating worst as a 10 and least being 6--throbbing and sharp pain-- . History of Present Illness The patient presents with headache. The onset was 1 weeks ago. The course/duration of symptoms is constant. Location: Bilateral frontal (Left greater then right). Radiating pain: none. The character ofsymptoms is sharp. The degree at onset was severe, 8 /10. The degree at maximum was severe, 8 /10. .The degree at present is moderate. There are exacerbating factors including light and noise. The relieving factor is light avoidance. Risk factors consist of patient is currently taking testosterone aspart of a planned gender change. She has been prescribed a second agent to help with side effects but so far has not started this Rx due to cost.. Prior episodes: frequent. Therapy today: none. Associated symptoms: nausea. Review of Systems Constitutional symptoms: Negative except as documented in HPI, but no fever or no chills. Skin symptoms: Negative except as documented in HPI, but no rash. Eye symptoms: Negative except as documented in HPI. ENMT symptoms: Negative except as documented in HPI. Respiratory symptoms: No shortness of breath or no cough. Cardiovascular symptoms: No chest pain. Gastrointestinal symptoms: Nausea, but no vomiting or no diarrhea. Genitourinary symptoms: Negative except as documented in HPI. Musculoskeletal symptoms: Negative except as documented in HPI. Neurologic symptoms: Headache. Endocrine symptoms: Negative except as documented in HPI. Hematologic/Lymphatic symptoms: Negative except as documented in HPI. Allergy/immunologic symptoms: Negative except as documented in HPI. Additional review of systems information: All other systems reviewed and otherwise negative, All systems reviewed as documented in chart. Health Status Allergies: Allergic Reactions (Selected) NKA. Past Medical/ Family/ Social History Medical history: Active Migraine Headache (WHITE) NOS (ICD-10-CM G43.909) Dysphoria Gender Adolescent Or Adult (ICD-10-CM F64.1). Surgical history: No active procedure history items have been selected or recorded.. Family history: Not significant. Social history: Tobacco use: 5 cigarettes per day, Occupation: Unemployed, Family/social situation: Unmarried. Physical Examination Vital Signs: Time: 08/01/2015 20:30:00, Vital Signs 08/01/2015 19:27 NAILHEAD SETTER Temperature Core 36.8 DegC Peripheral Pulse Rate 95 /min Respiratory Rate 18 /min SpO2 95 % Systolic Blood Pressure 125 mmHg Diastolic Blood Pressure 95 mmHg >HHI Mean Arterial Pressure 105 mmHg BP Location Left upper , Measurements 08/01/2015 19:27 NAILHEAD SETTER Height 162 cm Height Source Stated Dosing Weight 73.00 kg NA Estimated Weight 73 kg Weight Source Other: verbal , SpO2 08/01/2015 19:27 NAILHEAD SETTER SpO2 95 % . General: Alert and mild distress. Skin: Warm, dry, intact, no pallor, no rash and mild androgenic facial hair and acne eruption (perioral). Head: Normocephalic and atraumatic. Neck: Supple and trachea midline. Eye: Pupils are equal, round and reactive to light and normal conjunctiva. Ears, nose, mouth and throat: Oral mucosa moist. Cardiovascular: Regular rate and rhythm. Respiratory: Lungs are clear to auscultation. Back: Normal range of motion. Musculoskeletal: Normal ROM Neurological: No focal neurological deficit observed, CN II-XII intact and Level of consciousness: Appropriate for age. Psychiatric: Cooperative. Medical Decision Making Rationale:The patient is quite a bit better with headache and pain essentially resolved. I am concerned about rebound and also believe that some of what she is experiencing is from the testosterone sheis currently on., She is referred back to her doctor for further evaluation and encouraged to take the second prescriptive agent.. OrdersLaunch Orders Patient Care: ED Peripheral IV Careset (Order Processing) Peripheral IV (Order Processing): 08/01/2015 20:35 NAILHEAD SETTER, Initial Line Pharmacy: Zofran ODT (Order Processing): 4 mg, PO, Once Toradol (Order Processing): 30 mg, IV Push, Once Saline bolus (Order Processing): 1,000 mL, IVPB, Once Sodium Chloride 0.9% 1000 mL (Order Processing): 150 mL/hr, IV, Launch Orders Pharmacy: Dilaudid (Order Processing): 0.5 mg, IV Push, q30min, PRN: Pain. Impression and Plan Diagnosis Headache (WHITE) Drug Induced (Discharge, Emergency medicine, Medical) (Androgenic) Migraine Headache (WHITE) NOS (Discharge, Emergency medicine, Medical) Plan Condition: Improved, Stable. Disposition: Discharged: Time 08/01/2015 23:31:00, to home, Patient care transitioned to. Patient was given the following educational materials: HEADACHE, Migraine (Classical), Preventing Migraine Headaches: Triggers. Follow up with: KALEE MORENO Within 3 - 5 days Call for follow up appointment. For recheck. Also Please consider taking the medication prescribed as a complement for the testosterone so that the headaches are less frequent.. Counseled: Patient, Regarding diagnosis, Regarding treatment plan, Regarding prescription, Patient indicated understanding of instructions. Orders: Launch Orders Patient Care: Discharge ED Patient (Order Processing): 08/01/2015 23:34 NAILHEAD SETTER, Once. Electronically Signed By: DOUG GROSS MD On: 08/02/2015 03:46 AM Modified by and Electronically Signed by: DOUG GROSS MD On: 08/01/2015 10:21 PM Source: [facility] POWERCHART Document Id: [id number] HEAD SETTER Lorrie Infante R.N. - 08/01/2015 7:27 PM CST ED Primary Assessment Document Has Been Updated ED Primary Assessment Entered On: 08/01/2015 19:37 NAILHEAD SETTER Performed On: 08/01/2015 19:27 NAILHEAD SETTER by LORRIE INFANTE RN Reason For Visit (As Of: 08/01/2015 21:09:05 NAILHEAD SETTER) Diagnoses(Active) Headache - Recurrent Date: 08/01/2015 ; Diagnosis Type: Reason For Visit ; Confirmation: Complaint of ; Clinical Dx: Headache - Recurrent ; Classification: Medical ; Clinical Service: Emergency medicine ; Code: PNED ; Probability: 0 ; Diagnosis Code: [id number] Triage Chief Complaint Description : 20 year old female presents to er with recurrent migraine--seen in er last friday and given imitrex with no relief--since discharged from er, cont. with headache to left frontal lobe rating worst as a 10 and least being 6--throbbing and sharp pain-- (Comment: no resolution of headache except for 1 hour increments- seen in er last --nausea/no appetite here for re-eval.--no sensitivity to light or visual disturbances--also feeling of fullness/pressure in ears--neck stiffness--unsure of fever [LORRIE INFANTE RN - 08/01/2015 19:27 NAILHEAD SETTER] ) Information Given By : Patient Accompanied By : Alone Mode of Arrival ED : Private vehicle Track : Medical Languages : Amharic Vital Signs Assessed : Yes Treatments Prior to Arrival : Home treatments (Comment: imitrex [LORRIE INFANTE RN - 08/01/2015 19:27 NAILHEAD SETTER] ) Are you ? : No Is Patient Female and 13-50 no hysterectomy : Yes Status : Patient denies LORRIE INFANTE RN - 08/01/2015 19:27 NAILHEAD SETTER Vital Signs Temperature Core : 36.8 DegC(Converted to: 98.2 DegF) Peripheral Pulse Rate : 95 /min Respiratory Rate : 18 /min Systolic Blood Pressure : 125 mmHg Diastolic Blood Pressure : 95 mmHg (>HHI) NIBP Mean : 105 mmHg BP Location : Left upper extremity SpO2 : 95 % Oxygen Therapy : Room air Height : 162 cm(Converted to: 5 ft 4 inch(es)) Weight Source : Other: verbal Height Source : Stated Estimated Weight : 73 kg Estimated Weight Conversion to Pounds : 160.6 lb LIBRA MELCHORLOUIS LORRIE Katherine RN - 08/01/2015 19:27 NAILHEAD SETTER Pain Assessment Pain Symptoms : Yes LIBRA GLASS LORRIE Katherine RN - 08/01/2015 19:27 NAILHEAD SETTER Pain Scale Pain Scale Verbal 0-10 : Open LIBRA MELCHORLOUIS LORRIE Katherine RN - 08/01/2015 19:27 NAILHEAD SETTER Pain Pain Assessment Grid Pain 1 Location : Other: headache Laterality : Left Intensity : 10 LIBRA MELCHORLOUIS LORRIE Katherine CASTREJON - 08/01/2015 19:27 NAILHEAD SETTER Comfort Measures Comfort Measures Grid Quiet Environment : Yes LIBRA MELCHORLOUIS LORRIE Katherine RN - 08/01/2015 19:27 NAILHEAD SETTER ANA ANA Level 1 : No ANA Level 2 : Yes LIBRA MELCHORLOUIS LORRIE Katherine RN - 08/01/2015 19:27 NAILHEAD SETTER DCP GENERIC CODE Tracking Group : MAN ED Tracking Acuity : 3 -Urgent LIBRA GLASS LORRIE Katherine RN - 08/01/2015 19:27 NAILHEAD SETTER ID Screen Drug Resistant Organism : No Travel Within Last 21 Days : No Contact with someone with Ebola : No MARKUSLUTHER MARIA LUISA, LORRIE Katherine - 08/01/2015 19:27 NAILHEAD SETTER Immunizations Immunizations Current : Yes Last Tetanus : < 5 years Pneumovac : None Influenza : None LORRIE INFANTE Katherine RN - 08/01/2015 19:27 NAILHEAD SETTER Respiratory Airway : Patent Respirations : Unlabored Respiratory Pattern : Regular MARKUSLUTHER MARIA LUISA, LORRIE Katherine RN - 08/01/2015 19:27 NAILHEAD SETTER Cardiovascular Heart Rhythm : Regular Skin Color : Normal for ethnicity Skin Description : Dry Skin Temperature : Warm LIBRA GLASS LORRIE Murphy RN - 08/01/2015 19:27 NAILHEAD SETTER Neurological Last Well Time Known : Not applicable Level of Consciousness : Alert Orientation : Oriented x 3 Characteristics of Speech : Clear Neuro Patient Stated Symptoms : Headache Neuro Detailed Assessment : Yes LORRIE INFANTE RN - 08/01/2015 19:27 NAILHEAD SETTER Neuro Detailed ANETTE : Yes Facial Symmetry : Normal Extremity Movement : Equal Extremity Sensation : Normal Speech Characteristics : Normal LORRIE INFANTE RN - 08/01/2015 19:27 NAILHEAD SETTER ED Psychosocial Affect/Behavior : Calm, Cooperative Domestic Abuse Concerns : None Behavioral Health Screen/Safety Assmt : No LORRIE INFANTE RN - 08/01/2015 19:27 NAILHEAD SETTER Gastrointestinal Nutrition ED : Inadequate Nutrition ED Freetext : no appetite LORRIE INFANTE RN - 08/01/2015 19:27 NAILHEAD SETTER Musculoskeletal Fall Prevention Education Provided : Yes LORRIE INFANTE RN - 08/01/2015 19:27 NAILHEAD SETTER Social Habits Type : Cigarettes: 20-30 per day Tobacco Use/Advised to Quit : Yes LORRIE INFANTE RN - 08/01/2015 21:08 NAILHEAD SETTER Smoking Status : Current every day smoker Tobacco 2A : Yes Tobacco Use/Currently Using : Yes Tobacco Use/Last 30 Days : Yes Tobacco Use/Last 12 months : Yes LORRIE INFANTE RN - 08/01/2015 19:27 NAILHEAD SETTER Alcohol Use Grid Alcohol Use : Yes Frequency : Weekly LORRIE INFANTE RN - 08/01/2015 19:27 NAILHEAD SETTER Recreational Drug Use Grid Drug Use : None LORRIE INFANTE RN - 08/01/2015 19:27 NAILHEAD SETTER Source: [facility] [place] Document Id: [id number] NAILHEAD SETTER!4 HEAD SETTER documented in this encounter Miscellaneous Notes Miscellaneous - Lorrie Infante RDarioN. - 08/01/2015 11:50 PM NAILHEAD SETTER Valuables/Belongings Valuables/Belongings Entered On: 08/02/2015 0:09 NAILHEAD SETTER Performed On: 08/01/2015 23:50 NAILHEAD SETTER by LORRIE INFANTE RN Valuables/Belongings Home Medication Disposition : None brought in with patient LORRIE INFANTE RN - 08/02/2015 0:09 NAILHEAD SETTER Source: [facility] Document Id: [id number] NAILHEAD SETTER!3 HEAD SETTER Miscellaneous - Conversion, Historical Provider Ser - 08/01/2015 11:50 PM NAILHEAD SETTER Coding Summary-Paper Based CODING DATE: 08/10/2015 FINAL [facility] STATUS: * Discharged to Home or Self Care PAYOR: [employer] ADMIT DX: R51 Headache REASON FOR VISIT DX: R51 Headache FINAL DX: PRINCIPAL: G43.909 Migraine, unspecified, not intractable, without status migrainosus SECONDARY: F17.210 Nicotine dependence, cigarettes, uncomplicated PROCEDURES DOCTOR NAME DATE NOTE: The code number assigned matches the documented diagnosis and / or procedure in the patient's chart. However, the narrative phrase printed from the coding software may appear abbreviated, or result in slightly different terminology. Coded By: HARVINDER ONOFRE Date Saved: 08/10/2015 12:38 pm Source: [facility] Document Id: [id number] Miscellaneous - Lorrie Infante RDarioN. - 08/01/2015 7:20 PM NAILHEAD SETTER Facility Charge Ticket 2.0 11.0 DX Facility Charge Ticket 2.0 11.0 DX Entered On: 08/02/2015 0:09 NAILHEAD SETTER Performed On: 08/01/2015 19:20 NAILHEAD SETTER by LORRIE INFANTE RN Facility Charge Ticket 2.0 11.0 DX ED Other Charges : Standard ED Encounter TVL Level Translated RTF : Headache - Recurrent TVL:3 TVL Level for Facility Charge Ticket : Level 3 Arrival Mode Calc : 1 Mode of Arrival ED : Private vehicle [facility] Mode of Arrival Interpreted : Standard [facility] Process Management : None [facility] Order Management : None 30 Minutes Critical Care : No Nursing Notes RTF : Nursing Notes ED Primary Assessment,08/01/15 19:27,LORRIE INFANTE NEUROLOGY NURSE Primary Assessment,08/01/15 19:27,LORRIE INFANTE NEUROLOGY NURSE Nurse Reassess,08/01/15 23:30,LORRIE INFANTE NEUROLOGY NURSE Nurse Reassess,08/01/15 22:03,LORRIE INFANTE NEUROLOGY NURSE Nurse Reassess,08/01/15 21:44,LORRIE INFANTE NEUROLOGY NURSE Pain Assessment,08/01/15 23:50,LORRIE INFANTE RN [facility] Nursing Assessment : Triage and 3-5 nursing assessments [facility] Disposition : Discharge Disposition RTF : discharge [facility] Total Points with Diagnosis Control : 6 [facility] Visit Level : 64293 Level 3 Treatments Prior to Arrival : Home treatments LORRIE INFANTE RN - 08/02/2015 0:09 NAILHEAD SETTER Source: [facility] Document Id: [id number] NAILHEAD SETTER!18 HEAD SETTER documented in this encounter Plan of Treatment Upcoming Encounters Date Type Specialty Care Team Description 05/23/2022 Telemedicine Endocrinology Arely Bond M.B., B.Ch. [address] [place] [address] [phone] (Wo rk) documented as of this encounter Visit Diagnoses Not on filedocumented in this encounter
--- OUTSIDE RECORDS SUMMARY | 2022-04-12 08:15 | XMS_ITS | Encounter Summary ---
:1995 Author Organization [facility] Address [address] [place] [address] Care Team Providers Name Role Phone Unavailable Primary Care Provider Unavailable Encounter Details Date Type Department Care Team Description 11/07/2015 Hospital Encounter HX [facility] Naveed Goddard M.D. [address] [place], [place] [phone] (Wo rk) Social History [...] How often do you attend adventist or congregational services? Never 03/20/2022 Do you [...] - - Height 163 cm (5' 4.17) 11/07/2015 11:51 AM CDT Body Mass Index - - [...] by 0 015 500 mg tablet mouth. [facility] [place] [facility] [place] See 0 016 03/20/2022 (Allergy Immunotherapy) Instructions, testoterone--80 mg IM per week--(has been taking past 8 months) traZODone (DESYREL) 100 Take 1 tablet by 0 201412/01/2019 mg tablet mouth. traZODone (DESYREL) 100 Take 1 tablet by 0 201403/20/2022 mg tablet mouth at bedtime. documented as of this encounter Procedure Notes Viry Segovia R.T.(R) - 11/07/2015 1:35 PM CDT Peripheral IV Peripheral IV Entered On: 11/07/2015 13:35 CDT Performed On: 11/07/2015 13:35 CDT by VIRY SEGOVIA Peripheral IV Peripheral IV Assess/Intervention Grid Peripheral IV #1 IV Activity : Discontinue Removal : Catheter intact, Hemostasis within expected timeframe Number of Attempts : 2 Date of Insertion : 11/07/2015 CDT Discontinued Date : 11/07/2015 CDT IV Site : Antecubital Laterality : Left Catheter Size : 20 Catheter Type : Over the needle Site Condition : No complications VIRY SEGOVIA - 11/07/2015 13:35 CDT Source: [facility] Document Id: [id number] CDT!14 Viry Segovia R.T.(Dom) - 11/07/2015 1:15 PM CDT Peripheral IV Peripheral IV Entered On: 11/07/2015 13:35 CDT Performed On: 11/07/2015 13:15 CDT by VIRY SEGOVIA Peripheral IV Peripheral IV Assess/Intervention Grid Peripheral IV #1 IV Activity : Start Number of Attempts : 2 Date of Insertion : 11/07/2015 CDT IV Site : Antecubital Laterality : Left Catheter Size : 20 Catheter Type : Over the needle VIRY SEGOVIA - 11/07/2015 13:34 CDT Source: [facility] Document Id: [id number] CDT!11 documented in this encounter Miscellaneous Notes Miscellaneous - Conversion, Historical Provider Ser - 11/08/2015 8:51 AM CDT Coding Summary-Paper Based CODING DATE: 11/08/2015 FINAL [facility] STATUS: * Discharged to Home or Self Care PAYOR: [employer] ADMIT DX: REASON FOR VISIT DX: FINAL DX: PRINCIPAL: R10.31 Right lower quadrant pain SECONDARY: N83.20 Unspecified ovarian cysts PROCEDURES DOCTOR NAME DATE NOTE: The code number assigned matches the documented diagnosis and / or procedure in the patient's chart. However, the narrative phrase printed from the coding software may appear abbreviated, or result in slightly different terminology. Coded By: KALEE BROWN Date Saved: 11/08/2015 08:51 am Source: [facility] Document Id: [id number] documented in this encounter Plan of Treatment Upcoming Encounters Date Type Specialty Care Team Description 05/23/2022 Telemedicine Endocrinology Arely Bond M.B., B.Ch. [address] [place] [address] [phone] (Wo rk) documented as of this encounter Procedures Procedure Name Priority Date/Time Associated Diagnosis Comme nts CT ABDOMEN PELVIS Routine 11/07/2015 1:16 PM Resu lts for this WITH IV CONTRAST CDT procedure a re in the results section. documented in this encounter Results CT Abdomen Pelvis with IV Contrast (11/07/2015 1:16 PM CDT) Anatomical Region Laterality Modality Abdomen, Pelvis N/A Computed Tomography Specimen (Source) Anatomical Collection Method Collection Time Re ceived Time Location / / Volume Laterality 11/07/2015 1:16 PM CDT Addenda Addendum by Provider, Thea Mackenzie o n 11/07/2015 1:16 PM CDT RAD^^^MA CT Abdomen/Pelvis w/ contrast 11/07/2015 13:16:32 Narrative 11/07/2015 2:10 PM CDT EXAM: CT Abdomen/Pelvis w/ contrast INDICATION: Accute R Lower Quad Pain FINDINGS: CT of the abdomen pelvis perfo rmed with 100 mL's of Omnipaque 350 given intravenously no pre vious available for comparison. Appendix is normal. No inflammatory schumacher ge in the right lower quadrant. Apparent 2 cm cyst involving t he right ovary. 1.5 cm cyst in the left ovary. Uterus unremarkable. No lymphadenopathy or ascites in abdomen or pelvis. Bowel gas pattern is normal. Kidneys peng w normal function bilaterally no hydronephrosis or nephrolithiasis. Ur inary bladder without stones or masses. Liver, gallbladder, spleen, adrenal glan ds, pancreas grossly unremarkable. Vasculature intact. Portal system is patent. Lung bases are clear. Scoliosis in lumbar spine. No acute bony abnormality. Impression: Bilateral ovarian cysts as d escribed. Appendix is normal. Abdomen and pelvis otherwise unremarkabl e. Procedure Note Doug Amaral M.D. / Provider, Victorina shea M.D. - 10/18/2016 EXAM: CT Abdomen/Pelvis w/ contrast INDICATION: Accute R Lower Quad Pain FINDINGS: CT of the abdomen pelvis perfo rmed with 100 mL's of Omnipaque 350 given intravenously no pre vious available for comparison. Appendix is normal. No inflammatory schumacher ge in the right lower quadrant. Apparent 2 cm cyst involving t he right ovary. 1.5 cm cyst in the left ovary. Uterus unremarkable. No lymphadenopathy or ascites in abdomen or pelvis. Bowel gas pattern is normal. Kidneys peng w normal function bilaterally no hydronephrosis or nephrolithiasis. Ur inary bladder without stones or masses. Liver, gallbladder, spleen, adrenal glan ds, pancreas grossly unremarkable. Vasculature intact. Portal system is patent. Lung bases are clear. Scoliosis in lumbar spine. No acute bony abnormality. Impression: Bilateral ovarian cysts as d escribed. Appendix is normal. Abdomen and pelvis otherwise unremarkabl e. Viry Ascencio(Dom)(CT)Sonu(R) IMG CT PROCEDU RES documented in this encounter Visit Diagnoses Not on filedocumented in this encounter
--- OUTSIDE RECORDS SUMMARY | 2022-04-12 08:15 | XMS_ITS | Encounter Summary ---
:1995 Author Organization [facility] Address [address] [place] [address] Care Team Providers Name Role Phone Unavailable Primary Care Provider Unavailable Encounter Details Date Type Department Care Team Description 03/16/2013 Hospital Encounter HX [facility] Kyler Harris ED, M.D. [address] [place], [place] [phone] (Wo rk) Social History Tobacco Use Types [...] How often do you attend scientologist or orthodoxy services? Never 03/20/2022 Do you belong to [...] Sign Reading Time Taken Comments Blood Pressure 96/65 03/16/2013 2:20 PM CDT Pulse 73 03/16/2013 2:20 PM CDT Temperature - - Respiratory Rate 16 03/16/2013 2:20 PM CDT Oxygen Saturation - - Inhaled Oxygen Concentration - - Weight 68.6 kg (151 lb 3.8 oz) 03/16/2013 12:35 PM CDT Height 164.5 cm (5' 4.76) 03/16/2013 12:35 PM CDT Body Mass Index 25.35 03/16/2013 12:35 PM CDT Body Mass Index Percentile 82.11 % 03/16/2013 12:35 PM C DT Growth Chart: [facility][NOTE 3] (Girls, 2-20 Years) documented in this encounter Discharge Summaries Jalyn Adair R.N. - 03/16/2013 2:38 PM CDT ED Discharge Instructions [address] [address] Name: NAZ CHAKRABORTY Date of : 1995 12:00 PM Visit Date: 03/16/2013 12:28 PM [facility] Number: [id number] Address: [address] [place] [phone] Primary Care Provider: PCP, UNASSIGNED - SD IMPORTANT: [facility] in [place] would like to thank you for allowing us to assistyou with your healthcare needs. The following includes patient education materials and information regarding your injury/illness. Chief Complaint: Chest pain - Pleuritic; chest pain Follow-Up Instructions: With: Address: When: Follow up with primary care provider Within 2 - 4 days Comments: to discuss efficacy of steroid medication and consideration of further lab/pulmonary/cardiac testing Patient Education Materials: [id number] CHEST WALL PAIN: COSTOCHONDRITIS The chest pain that you have had today is caused by Costochondritis. This condition is due to an inflammation of the cartilage joining the ribs to the breastbone. It is not caused by heart or lung problems. Although the exact cause for costochondritis is not known, it often occurs during times of emotional stress. It can be painful, but it is not dangerous. It usually disappears within one to two weeks, but may recur. Rarely, a more serious condition may cause symptoms similar to costochondritis; therefore, watch for the warning signs listed below. HOME CARE: ?? If you feel that emotional stress is a cause of your condition, try to identify sources of that stress. It may not be obvious! Learn ways to deal with the stress in your life such as regular exercise, muscle relaxation, meditation, or simply taking time out for yourself. For more information about this, consult your doctor or go to a local bookstore and review books and tapes available on the subject of stress reduction. ?? You may use acetaminophen (Tylenol) or ibuprofen (Motrin, Advil) to control pain, unless another pain medicine was prescribed. [ NOTE: If you have liver disease or ever had a stomach ulcer, talk with your doctor before using these medicines.] ?? The use of heat (hot wet compress or heating pad) with or without local analgesic creams (Deep Heat Rub, Brian Wong) will be helpful to reduce pain. FOLLOW UP with your doctor as directed or sooner if you do not start to improve within the next two days. [NOTE: If an X-ray or EKG (cardiogram) was made, another specialist will review it. You will be notified of any new findings that may affect your care.] GET PROMPT MEDICAL ATTENTION if any of the following occur: ?? A change in the type of pain: if it feels different, becomes more severe, lasts longer, or spreads into your shoulder, arm, neck, jaw or back ?? Shortness of breath or increased pain with breathing ?? Weakness, dizziness, or fainting ?? Cough with dark colored sputum (phlegm) or blood ?? Abdominal pain ?? Dark red or black stools Fever of 100.4??F (38??C) or higher, or as directed by your healthcare provider ?? [id number] Moises Weiss, [address] [place] [address], [place] [address]. All rights reserved. This information is not intended as a substitute for professional medical care. Always follow your healthcare professional's instructions. ED Tests and Procedures: Order Status Troponin T Completed XR Chest 2 Views Completed EKG-Lab Completed CBC (includes Auto Differential) Completed Automated Diff-5 Part Completed Discharge Prescriptions & Home Medications: Medication/Strength Dose Route Frequency Indications/Special Instructions/Comments/Notes methylPREDNISolone (Medrol Dosepak 4 mg oral tablet) See special instructions Oral as directed for 6Days pirbuterol (Maxair Autohaler 0.2 mg/inh inhalation aerosol) 2 puff(s) Inhalation every 4 hours as needed for shortness of breath or wheezing diphenhydrAMINE (Unisom Sleepgels Maximum Strength 50 mg oral capsule) See Instructions Sleep / Anxiety 1 cap(s) PO 3xDay Attention: If you have any medications at home not on this list, DO NOT take them until you contact your provider for clarification. Medication Reconciliation: Reconciliation is a process of [...] ride home with a responsible constitution party. IDAVION KALLIE , or responsible constitution party have received this information and my questions have been answered. I have discussed any challenges I see with this plan with the nurse or physician. Patient Signature or Responsible Libertarian/Relationship Date Time Provider Signature Date Time Medication Reconciliation: Reconciliation is a process of identifying the most accurate list of a ll medications a patient is taking - including [...] a responsible constitution party. DAVION Domingo KALLIE , or responsible constitution party have received this information and my questions have been answered. I have discussed any challenges I see with this plan with the nurse or physician. Patient Signature or Responsible Libertarian/Relationship Date Time Provider Signature Date Time This document has images extracted. Please consider using [employer] for all your patient education needs. Source: [facility] POWERCHART Document Id: [id number] Jalyn Adair R.N. - 03/16/2013 2:38 PM CDT ED Depart Summary [facility] Clinical Discharge Summary PERSON INFORMATION Name NAZ CHAKRABORTY Age 17 Years 1995 12:00 PM Sex Female Language Colombian PCP PCP, UNASSIGNED - SD Marital Status Single Visit Id Visit Reason Chest pain - Pleuritic; chest pain Specialty Enc Type Emergency Med Service Emergency Medicine Referred by Track Group MAQN ED Discharge 03/16/2013 2:20 PM Tracking Id [id number] Checkout 03/16/2013 2:20 PM Checkin 03/16/2013 12:28 PM Acuity 3 -Urgent Dispo Type * Discharged to Home or Self Care Arrival 03/16/2013 12:28 PM Reg Status LOS 000 01:52 Address: [address] [place] [phone] Comment: PROVIDER INFORMATION Provider Role Provider Contact Time KYLER KHANNA MD ED Provider 03/16/13 13:51 ERIC LOPEZ RN ED Nurse 03/16/13 14:20 DIAGNOSIS Comment: PATIENT EDUCATION INFORMATION Instructions: CHEST WALL PAIN, Costochondritis Follow up: With: Address: When: Follow up with primary care provider Within 2 - 4 days Comments: to discuss efficacy of steroid medication and consideration of further lab/pulmonary/cardiac testing Source: [facility] POWERCHART Document Id: [id number] documented in this encounter Medications at Time of Discharge Medication Sig Dispensed Refills Start Date End Date naproxen (NAPROSYN) 250 mg Take 250 mg by mouth. 0 10/24/2012 tablet pirbuterol acetate (MAXAIR Inhale 2 puffs as 0 AUTOHALER INHL) needed. documented as of this encounter ED Notes Jalyn Adair R.N. - 03/16/2013 2:20 PM CDT ED Disposition Summary ED Disposition Summary Entered On: 03/16/2013 14:36 CDT Performed On: 03/16/2013 14:20 CDT by JALYN ADAIR RN ED Disposition Summary Accompanied By : Mother Mode of Discharge : Ambulatory Transportation : Private vehicle Discharge From ED With : Home Med List Printed Discharge Instructions Given to Patient : Yes Patient Status at Discharge from ED : Improved JALYN ADAIR RN - 03/16/2013 14:35 CDT Source: [facility] POWERCHART Document Id: [id number] CDT!8 Kyler Khanna M.D. - 03/16/2013 12:45 PM CDT Chest pain - Pleuritic Patient: NAZ CHAKRABORTY Age: 17 years Sex: Female : 1995 Author: KYLER KHANNA MD Attachments: None Basic Information Time seen: Immediately upon arrival. History source: Patient, mother. Arrival mode: Private vehicle. History limitation: None. Additional information: Chief Complaint from Nursing Triage Note : Chief Complaint Description. 03/16/2013 12:35 CDT Chief Complaint Description 17 y.o. female c/o chest pain off and on all her life, worse with activity and deep breathing. Was seen in clinic Friday, started on Naproxen but unableto take it due to abd pain after doses. Today in school went to nurse who sent pt. in to ED. Pt. state History of Present Illness The patient presents withchest wall pain. The onset was 3 days ago and though off and on intermittently for several years. The course/duration of symptoms is constant. Location: Left anterior central chest. Radiating pain: none. The character of symptoms is sharp. The degree at onset was moderate. Thedegree at maximum was moderate. The degree at present is moderate. There are exacerbating factors including breathing, palpation and palpation reproduces complaint. The relieving factor is shallow breathing. Risk factors consist of none. Prior episodes: non-cardiac. Therapy today ibuprofen 400 mg and an albuterol inhaler (2 puffs though 3 years old). Associated symptoms: none. Review of Systems Constitutional symptoms: Negative except as documented in HPI. Skin symptoms: Negative except as documented in HPI. Eye symptoms: Negative except as documented in HPI. ENMT symptoms: Negative except as documented in HPI. Respiratory symptoms: Negative except as documented in HPI. Cardiovascular symptoms: Negative except as documented in HPI. Gastrointestinal symptoms: Negative except as documented in HPI. Genitourinary symptoms: Negative except as documented in HPI. Musculoskeletal symptoms: Negative except as documented in HPI. Neurologic symptoms: Negative except as documented in HPI. Additional review of systems information: All other systems reviewed and otherwise negative. ROS is for ROS of today - pt with many complaints of multiple organ systems though none present today Health Status Allergies: . Allergic Reactions (Selected) NKA Past Medical/ Family/ Social History Medical history: [place] note reviewed. Surgical history: . No active procedure history items have been selected or recorded. Family history: . No family history items have been selected or recorded. Social history: Alcohol use: Denies. Physical Examination Vital Signs Vital Signs. 03/16/2013 12:35 CDT Temperature Core 37.3 DegC Peripheral Pulse Rate 89 /min Respiratory Rate 16 /min SpO2 100 % Systolic Blood Pressure 117 mmHg Diastolic Blood Pressure 73 mmHg Mean Arterial Pressure 88 mmHg BP Location Right upper General: Alert and no acute distress. Skin: Warm and moist. Head: Normocephalic and atraumatic. Neck: Supple. Eye: Pupils are equal, round and reactive to light and extraocular movements are intact. Ears, nose, mouth and throat: Tympanic membranes clear. Cardiovascular: Regular rate and rhythm. Respiratory: Lungs are clear to auscultation. Chest wall: On exam: Left, anterior, lateral, moderate, tenderness, reproduces complaint. Gastrointestinal: Soft, Nontender, Non distended and Normal bowel sounds. Neurological: Alert and oriented to person, place, time, and situation. Lymphatics: No lymphadenopathy. Psychiatric: Cooperative. Medical Decision Making OrdersLaunch Orders. Laboratory: Troponin T (Order Processing): Stat, 03/16/2013 13:20 CDT, Once CBC (includes Auto Differential) (Order Processing): Stat, 03/16/2013 13:20 CDT, Once Radiology: XR Chest 2 Views (Order Processing): 03/16/2013 13:20 CDT, chest pain, Stat, Patient Bed, Once, 03/16/2013 13:20 CDT, MAQN ED Diagnostic Tests: EKG (Order Processing): 03/16/2013 13:20 CDT, Reason: EKG, Stat, Stat, MAQN ED Electrocardiogram:Normal sinus rhythm. Results review:Reviewed Results: Lab results : Lab View(Date Range: 03/15/2013 0:00 CDT - 03/16/201314:09 CDT), Lab results : Lab View. 03/16/2013 13:40 CDT Hgb 13.8 g/dL Hct 40.6 % WBC 6.4 x10(9)/L RBC 4.67 x10(12)/L MCV 86.9 fL RDW 13.0 % Platelet 250 x10(9)/L Neutro Absolute 3.28 10(9)/L Lymph Absolute 2.30 x10(9)/L [place] Absolute 0.77 x10(9)/L Eos Absolute <0.50 x10(9)/L Baso Absolute <0.50 x10(9)/L Differential? Auto Troponin-T <0.010 ng/mL Radiology results:CXR - No acute changes. Impression and Plan Diagnosis Costochondritis Plan Condition: Stable. Disposition: Discharged: Time 03/16/2013 14:10:00, to home. 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 Pharmacy: Medrol Dosepak 4 mg oral tablet (Prescribe): See special instructions, PO, As Directed, 21 tab(s) Patient was given the following educational materials: CHEST WALL PAIN, Costochondritis. Follow up with: Follow up with primary care provider Within 2 - 4 days to discuss efficacy of steroid medication and consideration of further lab/pulmonary/cardiac testing. Counseled: Patient, Family, Regarding diagnosis, Regarding diagnostic results, Regarding treatment plan, Regarding prescription, Patient indicated understanding of instructions. Orders: Launch Orders. Patient Care: Discharge ED Patient (Order Processing): 03/16/2013 14:10 CDT, Once Notes: IN clinical history review it appears a common theme of the patients long-term and recurrent symptoms is inflammation (abdominal pain. recurrent costochondritis, intermittent diarrhea, migraine headaches, etc). I have asked the patient to return to her primary physician to discuss further work-up rather than initiate work-up in the ER here today and repeat what has been previously.. Electronically Signed By: KYLER KHANNA MD On: 03/16/2013 02:10 PM Modified by and Electronically Signed by: KYLER KHANNA MD On: 03/16/2013 02:10 PM Source: [facility] POWERCHART Document Id: [id number]} Eric Lopez R.N. - 03/16/2013 12:35 PM CDT ED Primary Assessment Document Has Been Updated ED Primary Assessment Entered On: 03/16/2013 12:46 CDT Performed On: 03/16/2013 12:35 CDT by ERIC LOPEZ RN Reason For Visit (As Of: 03/16/2013 12:46:16 CDT) Diagnoses(Active) Chest pain - Pleuritic Date: 03/16/2013 ; Diagnosis Type: Reason For Visit ; Confirmation: Complaintof ; Clinical Dx: Chest pain - Pleuritic ; Classification: Medical ; Clinical Service: Emergency medicine ; Code: PNED ; Probability: 0 ; Diagnosis Code: [id number] Triage Chief Complaint Description : 17 y.o. female c/o chest pain off and on all her life, worse with activity and deep breathing. Was seen in clinic Friday, started on Naproxen but unable to take it due to abd pain after doses. Today in school went to nurse who sent pt. in to ED. Pt. state (Comment: s she feels short of breath. Hx autism, sleep deprivation, drinks energy drinks daily. [facility] [ERIC LOPEZ RN - 03/16/2013 12:35 CDT] ) Information Given By : Patient, Mother Accompanied By : Mother Mode of Arrival ED : Private vehicle Track : Medical Languages : Colombian Vital Signs Assessed : Yes Treatments Prior to Arrival : None ERIC LOPEZ RN - 03/16/2013 12:35 CDT Vital Signs Temperature Core : 37.3 DegC(Converted to: 99.1 DegF) Peripheral Pulse Rate : 89 /min Respiratory Rate : 16 /min Systolic Blood Pressure : 117 mmHg Diastolic Blood Pressure : 73 mmHg NIBP Mean : 88 mmHg BP Location : Right upper extremity SpO2 : 100 % Oxygen Saturation Monitoring Frequency : Intermittent Oxygen Therapy : Room air Height : 164.5 cm(Converted to: 5 ft 5 inch(es)) Actual Weight : 68.6 kg Actual Weight Conversion to Pounds : 150.92 lb Weight Source : Standing scale Dosing Weight : 68.6 kg Dosing Weight Conversion to Pounds : 150.92 lb Body Mass Index : 25.35 kg/m2 ERIC LOPEZ RN - 03/16/2013 12:35 CDT Pain Assessment Pain Symptoms : Yes ERIC LOPEZ RN - 03/16/2013 12:35 CDT Pain Pain Assessment Grid Pain 1 Location : Chest Laterality : Left Intensity : 1 Time Pattern : Chronic Onset : Gradual ERIC LOPEZ RN - 03/16/2013 12:35 CDT ED Physician Notification Time ED Physician Notification Time : 03/16/2013 12:44 CDT ERIC LOPEZ RN - 03/16/2013 12:35 CDT ANA ANA Level 1 : No ANA Level 2 : No ANA Level 3 : Many ERIC LOPEZ RN - 03/16/2013 12:35 CDT DCP GENERIC CODE Tracking Acuity : 3 -Urgent Tracking Group : MAQN ED ERIC LOPEZ RN - 03/16/2013 12:35 CDT Allergy Latex Reaction : No Latex Hives/Itch : No Latex Congestion/Eye Irr/Breathing : No Latex Symptom Progression : No Latex Previous Test : No ERIC LOPEZ RN - 03/16/2013 12:35 CDT (As Of: 03/16/2013 12:46:16 CDT) ID Screen Drug Resistant Organism : No ERIC LOPEZ RN - 03/16/2013 12:35 CDT TB Symptoms Grid Bloody Sputum : No Fatigue : No Fever : No Loss of Appetite : No Night Sweats : No Persistent Cough Greater Than 3 Weeks : No Weight Loss : No ERIC LOPEZ RN - 03/16/2013 12:35 CDT Immunizations Immunizations Current : Yes ERIC LOPEZ RN - 03/16/2013 12:35 CDT Respiratory Airway : Patent Respirations : Unlabored Respiratory Pattern : Regular ERIC LOPEZ RN - 03/16/2013 12:35 CDT Cardiovascular Heart Rhythm : Regular Skin Color : Normal for ethnicity Skin Description : Dry Skin Temperature : Warm Monitoring Lead : II, V1/MCL1 Monitoring Lead Engineering Lecturer : Initiated ERIC LOPEZ RN - 03/16/2013 12:35 CDT Neurological Last Well Time Known : Not applicable Level of Consciousness : Alert Orientation : Oriented x 3 Characteristics of Speech : Clear ERIC LOPEZ RN - 03/16/2013 12:35 CDT ED Psychosocial Affect/Behavior : Calm, Cooperative Domestic Abuse Concerns : None ERIC LOPEZ RN - 03/16/2013 12:35 CDT Gastrointestinal Nutrition ED : Adequate ERIC LOPEZ RN - 03/16/2013 12:35 CDT Musculoskeletal Fall Prevention Education Provided : ERIC TRIPP RN - 03/16/2013 12:35 CDT Social Habits Tobacco Use/Currently Using : Yes Tobacco Use/Advised to Quit : Yes Smoking Status : Current some day smoker ERIC LOPEZ RN - 03/16/2013 12:35 CDT Source: [employer] Document Id: [id number] CDT!92 documented in this encounter Miscellaneous Notes Miscellaneous - Jalyn Adair R.N. - 03/16/2013 2:20 PM CDT Discharge Vital Signs Form Discharge Vital Signs Form Entered On: 03/16/2013 14:36 CDT Performed On: 03/16/2013 14:20 CDT by JALYN ADAIR RN Vital Signs Temperature Core : 36.9 DegC(Converted to: 98.4 DegF) Peripheral Pulse Rate : 73 /min Respiratory Rate : 16 /min Systolic Blood Pressure : 96 mmHg Diastolic Blood Pressure : 65 mmHg NIBP Mean : 75 mmHg SpO2 : 98 % Oxygen Saturation Monitoring Frequency : Intermittent Oxygen Therapy : Room air JALYN ADAIR RN - 03/16/2013 14:36 CDT [facility] Document Id: [id number] CDT!11 Miscellaneous - Jalyn Adair R.N. - 03/16/2013 2:20 PM CDT Valuables/Belongings Valuables/Belongings Entered On: 03/16/2013 14:37 CDT Performed On: 03/16/2013 14:20 CDT by JALYN ADAIR RN Valuables/Belongings Belongings Sent Home With : pt discharged home with all belongings Home Medication Disposition : None brought in with patient JALYN ADAIR RN - 03/16/2013 14:36 CDT Source: [employer] Document Id: [id number] CDT!4 Miscellaneous - Jalyn Adair R.N. - 03/16/2013 12:28 PM CDT Facility Charge Ticket Facility Charge Ticket Entered On: 03/16/2013 14:37 CDT Performed On: 03/16/2013 12:28 CDT by JALYN ADAIR RN Facility Charge TVL Level Translated RTF : Chest pain - Pleuritic TVL:4 TVL Level for Facility Charge Ticket : Level 4 Mode of Arrival ED : Private vehicle Arrival Mode Calc : 1 [place] Mode of Arrival Interpreted : Standard [facility] Process Management : None Order Management RTF : Laboratory CBC (includes Auto Differential),03/16/13 13:20,KYLER KHANNA MD Completed Troponin T,03/16/13 13:20,KYLER KHANNA MD Completed Notification Only,03/16/13 13:20,KYLER KHANNA MD Completed Automated Diff-5 Part,03/16/13 13:45,KYLER KHANNA MD Completed Xray XR Chest 2 Views,03/16/13 13:20,KYLER KHANNA MD Completed [facility] Order Management : Lab tests, Xray - plain films 30 Minutes Critical Care : No Nursing Notes RTF : Nursing Notes ED Primary Assessment,03/16/13 12:35,ERIC LOPEZ RN [facility] Nursing Assessment : Triage only Disposition RTF : discharge [facility] Disposition : Discharge [facility] Total Points with Diagnosis Control : 8 [facility] Visit Level : 80742 Level 4 Treatments Prior to Arrival : None JALYN ADAIR RN - 03/16/2013 14:37 CDT Source: [facility] POWERCHART Document Id: [id number] CDT!18 documented in this encounter Plan of Treatment Upcoming Encounters Date Type Specialty Care Team Description 05/23/2022 Telemedicine Endocrinology Arely Bond M.B., B.Ch. [address] [place] [address] [phone] (Wo rk) documented as of this encounter Procedures Procedure Name Priority Date/Time Associated Diagnosis Comme nts DX CHEST AP OR PA Routine 03/16/2013 2:02 PM Resu lts for this AND LATERAL 2 VIEWS CDT procedur e are in the results section. AUTOMATED Routine 03/16/2013 1:40 PM Results f or this DIFFERENTIAL, B CDT procedure ar e in the results section. CBC WITH Routine 03/16/2013 1:40 PM Results f or this DIFFERENTIAL, B CDT procedure ar e in the results section. TROPONIN T, 5TH Routine 03/16/2013 1:40 PM Result s for this GEN, P CDT procedure are i n the results section. ECG Routine 03/16/2013 1:27 PM Results f or this CDT procedure are i n the results section. documented in this encounter Results DX Chest AP or PA and Lateral 2 Views (03/16/2013 2:02 PM CDT) Anatomical Region Laterality Modality Chest N/A Radiographic Imaging Specimen (Source) Anatomical Collection Method Collection Time Re ceived Time Location / / Volume Laterality 03/16/2013 2:02 PM CDT Impressions 03/16/2013 2:13 PM CDT Normal chest Narrative 03/16/2013 2:13 PM CDT EXAM: XR Chest 2 Views INDICATION: chest pain COMPARISON: None. FINDINGS: Lungs and pleural spaces are c lear Heart and mediastinal structures are nor mal. Bony thorax and soft tissues are intact Procedure Note Ankur Reno D.O. / Provider, Efraín cruz M.D. - 11/01/2016 EXAM: XR Chest 2 Views INDICATION: chest pain COMPARISON: None. FINDINGS: Lungs and pleural spaces are c lear Heart and mediastinal structures are nor mal. Bony thorax and soft tissues are intact IMPRESSION: Normal chest Dafne Segovia RDarioTDario(R)(CT), RDarioT.(R) IMG DIAGNOSTIC IMAGING PROCEDURES Automated Differential (03/16/2013 1:40 PM CDT) athologist Signature Absolute 3.28 1.70 - POWERCHART Neutrophils 7.00 109L Lymphocytes 2.30 0.90 - POWERCHART 2.90 X109L Monocytes 0.77 0.30 - POWERCHART 0.90 X109L Eosinophils <0.50 0.05 - POWERCHART 0.50 X109L Absolute <0.50 0.00 - POWERCHART Basophil 0.30 X109L Specimen Anatomical Collection Method Collection Time Receive d Time (Source) Location / / Volume Laterality Blood 03/16/2013 1:40 PM 3 1:40 CDT PM CDT Kyler Khanna M.D. LAB BLOOD ADD-ON Performing Organization Address City/State/ZIP Code Phon e Number POWERCHART CBC with Differential (03/16/2013 1:40 PM CDT) athologist Signature Leukocytes 6.4 3.5 - 10.5 POWERCHART X109L Erythrocytes 4.67 3.90 - POWERCHART 5.03 [id number] Hemoglobin 13.8 12.0 - POWERCHART 15.5 GDL Hematocrit 40.6 34.9 - POWERCHART 44.5 MCV 86.9 81.6 - POWERCHART 98.3 FL HX RDW 13.0 11.9 - POWERCHART 15.5 Platelet Count 250 150 - 450 POWERCHART X109L HXDifferential? Auto POWERCHART Specimen (Source) Anatomical Collection Method Collection Time Re ceived Time Location / / Volume Laterality Blood 03/16/2013 1:40 PM CDT Kyler Khanna M.D. LAB BLOOD ADD-ON Performing Organization Address City/State/ZIP Code Phon e Number POWERCHART Troponin T (03/16/2013 1:40 PM CDT) athologist Signature Troponin T, S <0.010 <=0.010 POWERCHART NGML Comment: Values > or = 0.01 ng/mL have b een shown to have prognostic value. Specimen (Source) Anatomical Collection Method Collection Time Re ceived Time Location / / Volume Laterality Blood 03/16/2013 1:40 PM CDT Kyler Khanna M.D. LAB BLOOD ADD-ON Performing Organization Address City/State/ZIP Code Phon e Number POWERCHART ECG 12 Lead (03/16/2013 1:27 PM CDT) Specimen (Source) Anatomical Collection Method Collection Time Re ceived Time Location / / Volume Laterality 03/16/2013 1:27 PM CDT [facility] - 03/16/2013 1:27 PM CDT Test Reason : EKG Blood Pressure : / mmHG Vent. Rate : 077 BPM ? Atrial Rate : 077 BPM ?? P-R Int : 120 ms ?QRS D ur : 076 ms ?QT Int : 390 ms ? P-R-T Axe s : 040 071 047 degrees ?? QTc Int : 441 ms Normal sinus rhythm Normal ECG No previous ECGs available Referred By: KYLER KHANNA ? Confirmed By:SANTA COATS MD Procedure Note Provider, Thea Mackenzie - 11/06/2016F ormatting of this note might be different from the original. Test Reason : EKG Blood Pressure : / mmHG Vent. Rate : 077 BPM Atrial Rate : 077 B PM P-R Int : 120 ms QRS Dur : 076 ms QT Int : 390 ms P-R-T Axes : 040 071 04 7 degrees QTc Int : 441 ms Normal sinus rhythm Normal ECG No previous ECGs available Referred By: KYLER KHANNA Confirmed By:Chayo COATS MD Santa Coats M.D. ECG ORDERABLES Performing Organization Address City/State/ZIP Code Phon e Number [facility] [address] [place] [phone] documented in this encounter Visit Diagnoses Not on filedocumented in this encounter
--- OUTSIDE RECORDS SUMMARY | 2022-04-12 08:15 | XMS_ITS | Encounter Summary ---
:1995 Author Organization [facility] Address [address] [place] [address] Care Team Providers Name Role Phone Unavailable Primary Care Provider Unavailable Encounter Details Date Type Department Care Team Description 12/05/2015 [facility], [facility], C.N.P., M. S.N. [address] [place] [phone] (Wo rk) Social History Tobacco [...] 03/20/2022 relatives? How often do you attend muslim or sikhism services? Never 03/20/2022 Do you belong to any clubs or organizations such as No 03/20/2022 muslim groups, unions, fraternal or athletic groups, or [...] place to sleep or slept in a [place] [facility] [place] [facility] (including now)? Sex Assigned at Date Recorded Female 03/20/2022 7:54 AM CDT documented as of this encounter Last Filed Vital Signs Vital Sign Reading Time Taken Comments Blood Pressure 125/74 12/05/2015 9:11 AM CDT Pulse 53 12/05/2015 9:11 AM CDT Temperature - - Respiratory Rate - - Oxygen Saturation - - Inhaled Oxygen Concentration - - Weight - - Height 163 cm (5' 4.17) 12/05/2015 9:11 AM CDT Body Mass Index - - [...] 015 500 mg tablet mouth. Misc Prescription Mis Prescription See 0 016 03/20/2022 (Allergy Immunotherapy) Instructions, testoterone--80 mg IM per week--(has been taking past 8 months) traZODone (DESYREL) 100 Take 1 tablet by 0 201412/01/2019 mg tablet mouth. traZODone (DESYREL) 100 Take 1 tablet by 0 201403/20/2022 mg tablet mouth at bedtime. documented as of this encounter Progress Notes Roc Romero, GENO, C.N.P., M.S.N. - 12/05/2015 10:02 AM CDT Clinic Full Note CHIEF COMPLAINT/REASON FOR VISIT continued ovarian pain and shortness of breath HISTORY OF PRESENT ILLNESS Jamin is here for further evaluation of right sided abdominal pain. Please refer to my dictation from 12/04/[address] Nelson's from 12/04/15. Per verbal discussion with Dr. Nelson this morning,Jamin was instructed to use Miralax for constipation and was given Tramadol for the pain. Jamin walkedinto the clinic this morning to be seen. He states he took this yesterday and it did help the pain significantly, but the pain has increased since yesterday and is now associated with shortness of breath. Per nurse notes, he was instructed to report to the ER but refused to go. He is currently rating the pain 5/10 with cramping that gets to 10/10 at times. He has not slept since I saw him yesterday morning. 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 States the pain wasn't terrible at work, but as soonas he left work he felt the pain get worse and he felt like he couldn't catch his breath. He denies pain when he breathes. He denies labored breathing when I demonstrated what that was. It just doesn't feel right. The pain is describes as right sided and radiates to his right flank. At times he is feeling it travel down his thigh. He states he has felt nauseated; no vomiting. Denies fever, but felt hot and cold all night. He verbalizes feeling frustrated that we can't get to the reason for the pain and he is very concerned it is ovarian in nature. He states his mom has had an ovary rupture. He has mentioned, in the past, that he would ultimately like his ovaries removed. He denies feeling anxious about anything in particular, although does endorse the pain is quite bothersome to him. MEDICATIONS Misc Prescription, migraine prevention medication, daily. Misc Prescription, See Instructions, testoterone--80 mg IM per week--(has been taking past 8 months) Dixon 5 mg-325 mg oral tablet, 1 tab(s), PO, q4hr, PRN, 0 refills traMADol 50 mg oral tablet, 50 mg, 1 tab(s), PO, q4hr, PRN, 0 refills Trazapam 15 mg, i po daily for sleep ALLERGIES NKA PAST MEDICAL HISTORY Chronic Dysphoria Gender Adolescent Or Adult Migraine Headache (WHITE) NOS Historical No historical problems SOCIAL HISTORY Date Time: 12/05/2015 09:11 Tobacco: Smoking Status: Current every day smoker Exposure: Patient smokes Alcohol: Use: No Results Found Recreational Drugs: Use: None Type: No Results Found FAMILY HISTORY No qualifying data available. SYSTEMS REVIEW GENERAL: Negative for unplanned weight gain or weight loss. Denies chills, sweats, or fatigue. RESPIRATORY: Does complain of shortness of breath. Negative for cough, or wheezing. CARDIOVASCULAR: Negative for chest pain, chest pressure, heart palpitations, dyspnea, or edema. No pain in calves or with walking. GI: Having nausea without vomiting. Last bowel movement was 12/01. No diarrhea. No blood in BMs, no change in BMs. : No vaginal discharge, no burning/pain with urination, no difficulty starting stream, no difficulty emptying bladder, no excessive urination. Complains of a pressure that is causing him to void more frequently today. NEURO: No significant headaches, no slurred speech, no seizures, no dizziness, no loss of consciousness, no memory loss. PSYCHIATRIC: Negative for anxiety or depression. Denies feeling worked up about anything at work or in personal life. I just want the pain to go away. VITAL SIGNS HR: 53 BP: 125 / 74 SpO2: 99% HT: 163 cm PHYSICAL EXAMINATION GENERAL: Alert, pleasant, no acute distress. Sitting relaxed in the office chair. No difficulty speaking. No obvious breathing effort. CHEST: Chest is clear to inspection and auscultation, no respiratory distress. Respiratory rate 16.Non-labored. CARDIOVASCULAR: Heart sounds normal. No murmurs, clicks, or rubs. Heart rate normal. ABDOMEN: Abdomen is semi-soft, tender throughout with increased pain on the right. No guarding. Negative psoas sign, negative Rovsing's sign, no masses or organomegaly, no groin adenopathy. : Deferred by patient preference. NEUROLOGIC: Alert and oriented x 3. Muscle strength and tone normal in all extremities. Extremity range of motion normal. Gait and station normal. PSYCH: Mood appears good. Affect full. Speech and thought processes are normal. LAB RESULTS -----HEMATOLOGY----- Hgb: 15.8 High 12/05/15 Hct: 46.9 High 12/05/15 WBC: 7.8 12/05/15 RBC: 5.36 High 12/05/15 MCV: 87.5 12/05/15 RDW: 13.3 12/05/15 Platelet: 233 12/05/15 Neutro Absolute: 3.98 12/05/15 Lymph Absolute: 3.00 High 12/05/15 [place] Absolute: 0.74 12/05/15 Eos Absolute: 0.09 12/05/15 Baso Absolute: 0.02 12/05/15 Differential?: Auto 12/05/15 -----URINE/STOOL----- UA Color: Yellow 12/04/15 UA Clarity: [...] UR Squamous Epi Cells: Occ-3 Abnormal 12/04/15 -----MICROBIOLOGY----- Culture Urine: Review 12/05/15 DIAGNOSTIC RESULTS Pending. IMPRESSION/REPORT/PLAN Pain Abdominal R Lower Quadrant (RLQ) No obvious source of infection. WBC normal. Will repeat UA today, but culture pending from yesterday and not suspicious. Given patient's greatest concern is ovaries, I have ordered a pelvic US to be done right away and patient will wait in clinic until results called to me. I do not think this is an acute abdomen. No evidence of breathing difficulties on exam. Strongly suspect constipation. Might consider abdominal x-ray. Ordered: Beta hCG Qualitative Urine OV Est Pt Level 4 - 08426 - 25 min Testosterone, Total and Free-Deal TGRP Urinalysis with Microscopic Orders: US Pelvic And Endovaginal Electronically Signed By: ROC ROMERO CNP On: 12/05/2015 10:05 AM Source: [facility] POWERCHART Document Id: [id number] documented in this encounter Miscellaneous Notes Miscellaneous - Jose Flannery R.N. - 12/05/2015 3:49 PM CDT *General Message--pain with treatment Document Contains Addenda Addendum by ROC ROMERO CNP on December 05, 2015 16:10 CDT It is noted that the patient has checked in to the ER. Addendum by ROC ROMERO CNP on December 05, 2015 16:09:15 CDT From: ROC ROMERO CNP To: ABDIEL [facility] Nurse; Sent: 12/05/2015 16:09:15 CDT Subject: RE: *General Message--pain with treatment My note from 1:31 pm today clearly states my recommendations for laxative use, which apparently werenot followed. He is likely cramping from such aggressive medication treatment since talking with him2 1/2 hours ago. I recommend the ER and follow up with Dr. Nelson on this matter. From: JOSE FLANNERY RN To: ROC ROMERO CNP; Sent: 12/05/2015 15:49:59 CDT Subject: *General Message--pain with treatment Pt goes by Jamin. Pt was seen today for abdominal pain and diagnosed with constipation. Pt is calling stating he took the 2 capfuls of Miralax at 1130 and 3 tablets of Dulcolax after as directed. He complains of painful cramping. He states I'd rather be hit by a car right now. Pt states he feels alot of pressure but has not passed any gas or stool yet. Instructed pt will check with provider for any further instructions and will return call within 5 mins. Discussed with provider and was directed to advise pt to go to ER for pain management and eval. Returned call to pt and got his voicemail. Leftvoicemail instructing pt that he should go to the ER for for pain management and evaluation. Instructed to return call with any questions or concerns. Source: [facility] POWERCHART Document Id: [id number] Miscellaneous - Roc Romero APRN, C.N.P., M.S.N. - 12/05/2015 10:05 AM CDT Ambulatory Discharge Medication List [address] [address] [place], [place] [phone] Visit Information Name: DAVIONNAZ HANANE [facility] Number: [id number] Visit Date: 12/05/2015 10:05:29 Attending Provider: ROC ROMERO [facility] Primary Care Provider: KALEE MORENO MD DAVIONNAZ HANANE has been given the following list of medications: Your Medications It is important to take your medications as directed. Use a pill box or chart to help remind you to take your medications. Please let your doctor or nurse know if you have problems taking your medications. Medication/Strength How to Take Indications/Special Instructions/Comments/Notes for Patient Medication Changes/Routing HYDROcodone-acetaminophen (Dixon 5 mg-325 mg oral tablet) 1 Tablet(s), Oral, every 4 hours as neededfor Pain No more than 4,000mg acetaminophen/24hrs Misc Prescription (Trazapam 15 mg) i po daily for sleep Misc Prescription (Misc Prescription) See Instructions testoterone--80 mg IM per week--(has been taking past 8 months) Misc Prescription (Misc Prescription) migraine prevention medication, daily. traMADol (traMADol 50 mg oral tablet) 1 Tablet(s), Oral, every 4 hours as needed for Pain Stop Taking the Following Medications: Medication list as of 12-05-15 10:05 Attention: If you have any medications at [...] Electronically Signed By: ROC ROMERO CNP Signed On:05-DEC-2015 10:05:26 Additional Information: Source: [facility] POWERCHART Document Id: [id number] Miscellaneous - Roc Romero APRN, C.N.P., M.S.N. - 12/05/2015 10:05 AM CDT Ambulatory Patient Summary [address] [address] [place], [place] [phone] Visit Information Name: NAZ CHAKRABORTY HANANE [facility] Number: [id number] Current Date: 12/05/2015 10:05:29 Physicians Attending Provider: ROC ROMERO CNP Primary Care Provider: KALEE MORENO MD NAZ CHAKRABORTY HANANE has been given the following list of [...] Indications/Special Instructions/Comments/Notes for Patient Medication Changes/Routing HYDROcodone-acetaminophen (Dixon 5 mg-325 mg oral tablet) 1 Tablet(s), Oral, every 4 hours as neededfor Pain No more than 4,000mg acetaminophen/24hrs Misc Prescription (Trazapam 15 mg) i po daily for sleep Misc Prescription (Misc Prescription) See Instructions testoterone--80 mg IM per week--(has been taking past 8 months) Misc Prescription (Misc Prescription) migraine prevention medication, daily. traMADol (traMADol 50 mg oral tablet) 1 Tablet(s), Oral, every 4 hours as needed for Pain Stop Taking the Following Medications: Medication list as of 12-05-15 10:05 Attention: If you have any medications at [...] of emergency. Electronically Signed By: ROC ROMERO ROLFER Signed On:05-DEC-2015 10:05:26 Your Allergies & Intolerances Substance Reaction Symptoms Category Comments No Known Allergies Your Problem List Problem Status Onset Comments Dysphoria Gender Adolescent Or Adult Active Migraine Headache (WHITE) NOS Active Your Upcoming Appointments Date Time Location Provider No Appointments found Attention: Contact your local Clinic if further [...] if you dont have one. Go to [email or web address] and click on Create Your Account. Then, follow the directions to complete the online form. Youll be asked for your [facility] number which you can find at the top of this document. Your Goals/Additional instructions: Source: [facility] POWERCHART Document Id: [id number] Miscellaneous - Jose Flannery RDarioN. 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/History Entered On: 12/05/2015 9:12 CDT Performed On: 12/05/2015 9:11 CDT by JOSE FLANNERY steel loader Chief Complaint : continued ovarian pain and shortness of breath Peripheral Pulse Rate : 53 /min (LOW) Systolic Blood Pressure : 125 mmHg Diastolic Blood Pressure : 74 mmHg NIBP Mean : 91 mmHg BP Location : Left upper extremity Blood Pressure Cuff Size : Regular SpO2 : 99 % Oxygen Therapy : Room air Height : 163 cm(Converted to: 5 ft 4 inch(es), 64 inch(es)) JOSE FLANNERY RN - 12/05/2015 9:11 CDT General Info Information Given By : Patient Languages : Montserratian Is Patient Female and 13-50 no hysterectomy : Yes Status : Patient denies Are you ? : No JOSE FLANNERY RN - 12/05/2015 9:11 CDT Subjective Pain Symptoms : Yes JOSE FLANNERY RN - 12/05/2015 9:11 CDT Dependent Habits Exposure to Tobacco Smoke : Patient smokes Smoking Status : Current every day smoker Tobacco 2A : Yes Tobacco Use/Currently Using : Yes Tobacco Use/Last 30 Days : Yes Tobacco Use/Last 12 months : Yes Type : Cigarettes: Less than 20 per day Tobacco Use/Advised to Quit : Yes JOSE FLANNERY RN - 12/05/2015 9:11 CDT Recreational Drug Use Grid Drug Use : None JOSE FLANNERY RN - 12/05/2015 9:11 CDT [facility] Document Id: [id number]!32 documented in this encounter Plan of Treatment Upcoming Encounters Date Type Specialty Care Team Description 05/23/2022 Telemedicine Endocrinology Arely Bond M.B., B.Ch. [address] [place] [address] [phone] (Wo rk) documented as of this encounter Procedures Procedure Name Priority Date/Time Associated Comments Diagnosis TEST, U Routine 12/05/2015 9:53 AM Resu lts for this CDT procedure are i n the results section. URINALYSIS WITH Routine 12/05/2015 9:53 AM Result s for this MICROSCOPIC CDT procedure are i n the results section. AUTOMATED Routine 12/05/2015 9:11 AM Results f or this DIFFERENTIAL, B CDT procedure ar e in the results section. CBC WITH Routine 12/05/2015 9:11 AM Results f or this DIFFERENTIAL, B CDT procedure ar e in the results section. TESTOSTERONE, TOT AND Routine 12/05/2015 9:11 AM Results for this FR, S CDT procedure are i n the results section. documented in this encounter Results (ABNORMAL) Urinalysis, Complete, Includes Microscopic (12/05/2015 9:53 AM CDT) [facility] Method Time Signature HXUr Color Yellow Colorless POWERCHART Clarity Clear Clear POWERCHART Glucose Negative Negative MGDL POWERCHART HXBILIRUBIN Negative Negative POWERCHART Ketones, QL(U) Trace (A) Negative MGDL POWERCHART Specific 1.020 POWERCHART [place], POCT, U Comment: Reference Range Specific [place]: 1.000-1.035 HXBLOOD Negative Negative POWERCHART pH, POCT, Urine 7.5 <5.0 POWERCHART Comment: Reference Range pH: 5.0-8.0 Protein, Ur, Dip Negative Negative MGDL POWERCHAR T Urobilinogen 0.2 0.2 MGDL POWERCHART Comment: Reference Range Urobilinogen: 0.2-1.0 mg/dL HXNITRITE Negative Negative POWERCHART Leukocyte Esterase Negative Negative POWERCHART HXUR WBC. Occ-3 None Seen HPF POWERCHART HXUR RBC. Occ-2 None Seen HPF POWERCHART Squamous Epithelial Occ-3 (A) None Seen HPF POWERC MEJIA Specimen (Source) Anatomical Collection Method Collection Time Re ceived Time Location / / Volume Laterality Urine, First 12/05/2015 9:53 AM Voided CDT Sharifa Arana APRN.N.P., M.S.N. LAB URINE ORDERABL ES Performing Organization Address City/State/ZIP Code Phon e Number POWERCHART Test, Qualitative, Urine (12/05/2015 9:53 AM CDT) [facility] Method Time Signature HXBeta-hCG Negative Negative POWERCHART Qualitative Urine Specimen (Source) Anatomical Collection Method Collection Time Re ceived Time Location / / Volume Laterality Urine 12/05/2015 9:53 AM CDT Sharifa Arana APRN.N.P., M.S.N. LAB URINE ORDERABL ES Performing Organization Address City/State/ZIP Code Phon e Number POWERCHART (ABNORMAL) Automated Differential (12/05/2015 9:11 AM CDT) [facility] Method Time Signature Absolute 3.98 1.70 - POWERCHART Neutrophils 7.00 109L Lymphocytes 3.00 (H) 0.90 - POWERCHART 2.90 X109L Monocytes 0.74 0.30 - POWERCHART 0.90 X109L Eosinophils 0.09 0.05 - POWERCHART 0.50 X109L Absolute 0.02 0.00 - POWERCHART Basophil 0.30 X109L Specimen Anatomical Collection Method Collection Time Receive d Time (Source) Location / / Volume Laterality Blood 12/05/2015 9:11 AM 6 9:11 CDT AM CDT Sean Arana APRNNHarry., M.S.N. LAB BLOOD ADD-ON Performing Organization Address City/[facility] Code Phon e Number POWERCHART (ABNORMAL) CBC with Differential (12/05/2015 9:11 AM CDT) [facility] Method Time Signature Leukocytes 7.8 3.5 - 10.5 POWERCHART X109L Erythrocytes 5.36 (H) 3.90 - POWERCHART 5.03 [id number] Hemoglobin 15.8 (H) 12.0 - POWERCHART 15.5 GDL Hematocrit 46.9 (H) 34.9 - POWERCHART 44.5 MCV 87.5 81.6 - POWERCHART 98.3 FL HX RDW 13.3 11.9 - POWERCHART 15.5 Platelet Count 233 150 - 450 POWERCHART X109L HXDifferential? Auto POWERCHART Specimen (Source) Anatomical Collection Method Collection Time Re ceived Time Location / / Volume Laterality Blood 12/05/2015 9:11 AM CDT Sharifa Arana APRN.N.Manish., M.S.N. LAB BLOOD ADD-ON Performing Organization Address City/[facility] Phon e Number POWERCHART (ABNORMAL) Testosterone, Total and Free (12/05/2015 9:11 AM CDT) [facility] Method Time Signature % Free 31.8 (H) 0.06 - POWERCHART Testosterone 1.08 NGDL Comment: ADDITIONAL INFORMATIO N Testing performed by Equilibrium Dialysi s. Testosterone, Total 740 (H) 8 - 60 NGDL POWERCHA RT Comment: ADDITIONAL INFORMATIO N Testing performed by Liquid Chromatograp hy-Tandem Mass Spectrometry (LC-MS/MS). Test Performed by: [place] [address] Range Manager: Newton Waters II, M.D., Ph.D. Specimen (Source) Anatomical Collection Method Collection Time Re ceived Time Location / / Volume Laterality Blood 12/05/2015 9:11 AM CDT Sean Arana APRNNDarioP., M.S.N. LAB BLOOD NON ADD- ON Performing Organization Address City/State/ZIP Code Phon e Number POWERCHART documented in this encounter Visit Diagnoses Not on filedocumented in this encounter
--- OUTSIDE RECORDS SUMMARY | 2022-04-12 08:15 | XMS_ITS | Encounter Summary ---
:1995 Author Organization [facility] Address [address] [place] [address] Care Team Providers Name Role Phone Unavailable Primary Care Provider Unavailable Encounter Details Date Type Department Care Team Description 12/04/2015 Hospital Encounter HX NO MAPPING Megan Romero, GENO , C.N.P., M.S.N. [address] [place] [phone] (Wo rk) Social History Tobacco Use [...] How often do you attend uatsdin or hinduism services? Never 03/20/2022 Do you belong to [...] Miscellaneous - Conversion, Historical Provider Ser - 12/04/2015 11:59 PM CDT Coding Summary-Paper Based CODING DATE: 12/14/2015 FINAL [facility] STATUS: * Discharged to Home or [...] different terminology. Coded By: REE HOUSER Saved: 12/14/2015 10:49 am Source: [facility] POWERCHART Document Id: [id number] documented in this encounter Plan of Treatment Upcoming Encounters Date Type Specialty Care Team Description 05/23/2022 Telemedicine Endocrinology Arely Bond M.B., B.Ch. [address] [place] [address] [phone] (Wo rk) documented as of this encounter Visit Diagnoses Not on filedocumented in this encounter
--- OUTSIDE RECORDS SUMMARY | 2022-04-12 08:15 | XMS_ITS | Encounter Summary ---
:1995 Author Organization [facility] Address [address] [place] [address] Care Team Providers Name Role Phone Unavailable Primary Care Provider Unavailable Encounter Details Date Type Department Care Team Description 11/10/2015 Hospital Encounter HX [facility] Everton Cook, GENO, C.N.P., M. S.N. [address] [place] [address] (Wo rk) Social History Tobacco [...] 03/20/2022 relatives? How often do you attend roman catholic or restoration services? Never 03/20/2022 Do you belong to any clubs or organizations such as No 03/20/2022 roman catholic groups, unions, fraternal or athletic groups, [...] - - Height 163 cm (5' 4.17) 11/10/2015 9:54 AM CDT Body Mass Index - - [...] Miscellaneous - Conversion, Historical Provider Ser - 11/10/2015 11:59 PM CDT Coding Summary-Paper Based CODING DATE: 11/14/2015 FINAL [facility] STATUS: * Discharged to Home or Self Care PAYOR: [employer] ADMIT DX: REASON FOR VISIT DX: FINAL DX: PRINCIPAL: R10.2 Pelvic and perineal pain SECONDARY: N83.20 Unspecified ovarian cysts PROCEDURES DOCTOR NAME DATE NOTE: The code number assigned matches the documented diagnosis and / or procedure in the patient's chart. However, the narrative phrase printed from the coding software may appear abbreviated, or result in slightly different terminology. Coded By: KALEE BROWN Date Saved: 11/14/2015 09:37 am Source: [facility] at work Document Id: [id number] Miscellaneous - Roc Romero APRN C.N.P., M.S.N. - 11/10/2015 12:06 PM CDT Work Excuse November 10, 2015 NAZ CHAK[address]ABORTY [address] [facility] [id number] Dear NAZ JERODREYNALDO, May return to work 11/10/2015 without restrictions. Sincerely, ROC ROMERO [address] [place] [address] Electronic Signature Electronically Signed By: ROC ROMERO CNP On: November 10, 2015 This document has images extracted. Source: [facility] at work Document Id: [id number] Electronically signed by Rodri [facility] Scientific Publications Editor [id number] at 11/09/2016 2:21 PM CDT Miscellaneous - Roc Romero APRN C.N.PDario, M.S.N. - 11/10/2015 12:05 PM CDT Results Notification From: ROC ROMERO MIDLEVEL PROVIDER Sent: 11/10/2015 12:05:45 CDT Show up: 11/10/2015 12:04:00 CDT Subject: Results Notification Spoke with patient regarding pelvic US results, negative CT/GC, negative urine culture, and neg vaginitis panel. Essentially no ENERGY AND SUSTAINABILITY MANAGER explanation for the pelvic pain. I do still think he should follow upwith [facility] in [place] for atrophic vaginitis symptoms from the testosterone treatment. He states the pain is better, but still present. I have encouraged him to follow up with his primary care provider, Kalee Holloway, regarding pain control and further recommendations. He does feel able to return to work and has asked I send a note to employer stating he can return. This will be faxed as requested. Results: Date Result Type Result Name 11/10/2015 11:16 Radiology US Pelvic And Endovaginal Source: [facility] Document Id: [id number] Electronically signed by Conversion, [facility] Scientific Publications Editor [id number] at 11/09/2016 2:21 PM CDT documented in this encounter Plan of Treatment Upcoming Encounters Date Type Specialty Care Team Description 05/23/2022 Telemedicine Endocrinology Arely Bond M.B., B.Ch. [address] [place] [address] [phone] (Wo rk) documented as of this encounter Procedures Procedure Name Priority Date/Time Associated Comments Diagnosis US PELVIS TRANSVAGINAL Routine 11/10/2015 10:30 R esults for this AND TRANSABDOMINAL AM CDT procedure are in the results section. documented in this encounter Results US Pelvis Transvaginal and Transabdominal (11/10/2015 10:30 AM CDT) Anatomical Region Laterality Modality Pelvis N/A Ultrasound Specimen (Source) Anatomical Collection Method Collection Time Re ceived Time Location / / Volume Laterality 11/10/2015 10:30 AM CDT Addenda Addendum by Provider, Thea Mackenzie o n 11/10/2015 10:30 AM CDT RAD^^^MA US Pelvic And Endovaginal 11/10/2015 10:30:00 Impressions 11/10/2015 11:13 AM CDT Negative pelvic ultrasound, no evidence of ovarian cysts or dominant follicles. Narrative 11/10/2015 11:13 AM CDT EXAM: US Pelvic And Endovaginal INDICATION: pelvic pain; ovarian cysts o n CT COMPARISON: CT of the abdomen and pelvis of 11/07/2015. FINDINGS: Both transabdominal and transv aginal exams are performed. Uterus is midline in position and normal in size and appearance with an unremarkable endometrial stripe measu ring 4 mm. No uterine mass or intrauterine fluid is identified. The ov aron are visualized bilaterally and normal in size and appea kirk with normal vascularity. No ovarian cysts or dominan t follicle are identified at this time. There is no suspicious adnexa l mass or free fluid in the pelvic cul-de-sac. Procedure Note Yobany Ruiz Jr., M.D. / Avril Ward M.D. - 10/18/2016 EXAM: US Pelvic And Endovaginal INDICATION: pelvic pain; ovarian cysts o n CT COMPARISON: CT of the abdomen and pelvis of 11/07/2015. FINDINGS: Both transabdominal and transv aginal exams are performed. Uterus is midline in position and normal in size and appearance with an unremarkable endometrial stripe measu ring 4 mm. No uterine mass or intrauterine fluid is identified. The ov aron are visualized bilaterally and normal in size and appea kirk with normal vascularity. No ovarian cysts or dominan t follicle are identified at this time. There is no suspicious adnexa l mass or free fluid in the pelvic cul-de-sac. IMPRESSION: Negative pelvic ultrasound, no evidence of ovarian cysts or dominant follicles. Ursula OKEEFE US PROCEDURES documented in this encounter Visit Diagnoses Not on filedocumented in this encounter
--- OUTSIDE RECORDS SUMMARY | 2022-04-12 08:16 | XMS_ITS | Encounter Summary ---
:1995 Author Organization [facility] Address [address] [place] [address]. [place] [address] Care Team Providers Name Role Phone Bella Sears MD Unavailable Tana Peña MD Unavailable Sofiya Keenan MD Unavailable Debby Suggs LPN Unavailable Unavailable Aung Salinas MD Unavailable Dana Jane RN Unavailable Shahzad Sen MD Unavailable John Gresham Unavailable Aung Salinas MD Unavailable Brenna Malcolm MD Primary Care Provider [phone] Belkis Champion MD Unavailable Reason for Visit Reason Onset Date Comments Orders 08/16/2021 Encounter Details Date Type Department Care Team Description 08/16/2021 [facility] Brenna Malcolm Orders Smileys MD [address] [place] [address] [address] [place], [place] [phone] [place] [address] [phone] (Wo rk) Social History Tobacco Use Types Packs/Day Years Used Date Smoking Tobacco: Former Cigarettes 0.3 Quit : 03/21/2021 Smokeless Tobacco: Never Alcohol Use Standard Drinks/Week Comments Yes 0 (1 standard drink = 0.6 oz pure alcoho l) rarely Sex Assigned at Date Recorded Female 03/20/2020 2:05 PM CDT documented as of this encounter Miscellaneous Notes Telephone Encounter - Kerry Brewster RN - 08/16/2021 2:56 PM COATING MANAGER RN called pt back and asked if he wanted all labs pending from 06/18 faxed to [facility]. Pt stated yes. RN asked for fax number and pt stated they can be faxed to [phone]. Fax successful Kerry Martin RN ING MANAGER Telephone Encounter - Cira Dunn - 08/16/2021 2:31 PM CST [facility] phone call message - order or referral request for patient: Order or referral being requested: Lab Orders Testosterone Additional Comments: Patient called and stated that they wanted orders sent to [facility] to Dr. Patiño for testosterone. Call patient back for more details at [phone]. OK to leave a message on voice mail? Yes Primary language: Nauruan Cartography Teacher needed? 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 documented as of this encounter Visit Diagnoses Not on filedocumented in this encounter Additional Health Concerns Assessment Noted Time PHQ-9 Depression Total Score: 0 05/10/2019 4:19 PM COATING MANAGER documented as of this encounter Care Teams Liaison Officer Relationship Specialty Start Date End Date Brenna Malcolm, PCP - General Family Medicine 04/04/21 [facility] [address] [place] [address] Bella Sears MD General Surgery 11/28/14 Tana Peña MD Plastic Surgery 10/30/15 [address] [facility] [address] [place], [place] [address] Sofiya Keenan MD MD quill picking machine operator 01/11/[address] [place], [place] [id number] Debby Suggs, BRAZER FURNACE BRAZER FURNACE Plastic Surgery 11/26/16 Aung Salinas MD MD Urology 05/04/18 [address] [place], [place] [id number] Dana Jane, CASH Registered Nurse Urology 05/04/18 01/15/22 Shahzad Sen MD MD Plastic Surgery 10/08/18 [facility] [address] [place] [address] John Gresham Specialty Care Plastic Surgery 10/08/18 Coordinator Aung Salinas MD Assigned Surgical 12/17/20 [address] [facility] [place] [address] Belkis Champion MD Assigned PCP 07/01/21 01/18/22 [address] [place], [place] [id number] documented as of this encounter
--- OUTSIDE RECORDS SUMMARY | 2022-04-12 08:16 | XMS_ITS | Encounter Summary ---
:1995 Author Organization [facility] Address [address] [place] [address]. [place] [address] Care Team Providers Name Role Phone Bella Sears MD Unavailable Tana Peña MD Unavailable Sofiya Keenan MD Unavailable Debby Suggs LPN Unavailable Unavailable Aung Sailnas MD Unavailable Dana Jane RN Unavailable Shahzad Sen MD Unavailable John Gresham Unavailable Beckie Cota MD Primary Care Provider Aung Salinas MD Unavailable Beckie Cota MD Unavailable Encounter Details Date Type Department Care Team Description 03/31/2021 Telephone [facility] - Bonita Alanis MD Surgical Specialties Service [address] [place] [address] [address] [facility] [place] [address] [phone] Social History Tobacco Use Types Packs/Day Years Used Date Smoking Tobacco: Every Day Cigarettes 0.3 L ast attempted to quit: 09/14/2016 Smokeless Tobacco: Never Alcohol Use Standard Drinks/Week Comments Yes 0 (1 standard drink = 0.6 oz pure alcoho l) rarely Sex Assigned at Date Recorded Female 03/20/2020 2:05 PM CDT COVID-19 Exposure Response Date Recorded In the last month, have you been in contact with No / Unsure 03/19/2021 11:32 AM CDT someone who was confirmed or 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 documented as of this encounter Miscellaneous Notes Telephone Encounter - Bonita Alanis MD - 03/31/2021 2:08 PM CDT Telephone Encounter Date: 2:08 PM; 03/31/2021 Patient Name: Pablo Chakraborty Pablo Chakraborty is 25 year old transgender male who underwent second-stage phalloplasty with on 03/19, calls today with concern for a wound infection. He has testicular prostheses but nopenile prosthesis. He voids via his teller urethra- no tubularized penile urethra. He called the clinic a few days ago with concern for superficial wound infection. He was given a Rx for keflex but calls today that he doesn't feel this is working. States he is very prone to infections and has had drug resistant infections previously. He noted a few more areas of wound drainage todayalong with periincisional erythema. His temp is 99.1 but overall he feels tired and is having chills. He did send me several photos of the wound. I spoke with Dr. Salinas and with the patient. We could either trial a different antibiotic (Bactrim) with an early clinic appointment next week for wound check, or he could come to the ER for evaluation. The patient lives in [place] and would not feel comfortable driving to [place]. He has opted to switch his antibiotic, but will come for evaluation if he develops fever > 101.5 or other s ystemic signs of symptoms of abscess/infection. - Bactrim DS x 7 days sent to his pharmacy in [place]. - Patient advised that because this is an encounter performed over the telephone, I am not able to perform a physical exam and thus any advice given is limited in nature and may not be completely informed. The patient accepts this risk and if they have concerns with it they should be seen and evaluated in person by a medical professional. - Discussed strict return precautions, including but not limited to: fevers > 101.4, chills, an inability to keep food or fluids down, increasing hematuria, and an inability to urinate. - Patient expressed understanding and was in agreement with plan. 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 documented as of this encounter Visit Diagnoses Diagnosis Wound infection - Primary Posttraumatic wound infection not elsewh ere classified documented in this encounter Additional Health Concerns Assessment Noted Time PHQ-9 Depression Total Score: 0 05/10/2019 4:19 PM CULTURED MARBLE PRODUCTS MAKER documented as of this encounter Care Teams Software Systems Engineer Relationship Specialty Start Date End Date Beckie Cota MD PCP - General Student in [facility] 12/13/20 04/03/21 [facility] Residency health care Program education/training [address] [place] [address] Bella Sears, General Surgery 11/28/14 Tana Peña MD Plastic Surgery 10/30/15 [address] [place], [place] [id number] Sofiya Keenan MD MD cardroom drawing runner 01/11/[address] [place], [place] [address] Debby Suggs LPN BAR AND FILLER ASSEMBLER Plastic Surgery 11/26/16 Aung Salinas MD MD Urology 05/04/18 [address] [facility] [place], [place] [address] Dana Jane, CASH Registered Nurse Urology 05/04/18 01/15/22 Shahzad Sen MD MD Plastic Surgery 10/08/18 [facility] [address] [place] [address] John Greshma Specialty Care Plastic Surgery 10/08/18 Coordinator Aung Salinas MD Assigned Surgical 12/17/20 [address] [facility] [place] [address] Beckie Cota MD Assigned PCP 12/17/20 04/07/21 [facility] Residency Program [address] [place] [address] documented as of this encounter
--- OUTSIDE RECORDS SUMMARY | 2022-04-12 08:16 | XMS_ITS | Encounter Summary ---
:1995 Author Organization [facility] Address [address] [place] [address]. [place] [address] Care Team Providers Name Role Phone Bella Sears MD Unavailable Tana Peña MD Unavailable NeotsuSofiya mullins MD Unavailable Debby Suggs LPN Unavailable Unavailable Aung Salinas MD Unavailable Dana Jane RN Unavailable Shahzad Sen MD Unavailable John Gresham Unavailable Aung Salinas MD Unavailable Brenna Malcolm MD Primary Care Provider [phone] Marce Gallardo MD Unavailable Reason for Visit Reason Comments Follow Up Encounter Details Date Type Department Care Team Description 06/27/2021 Office Visit [facility] Aung Salinas, Gender dysphoria (Primary Dx); Urology Clinic Organic erectile dysfunction [address] [address] [place], [place] [phone] (Work) [phone] Social History Tobacco Use Types Packs/Day Years Used Date Smoking Tobacco: Former Cigarettes 0.3 Quit : 03/21/2021 Smokeless Tobacco: Never Alcohol Use Standard Drinks/Week Comments Yes 0 (1 standard drink = 0.6 oz pure alcoho l) rarely Sex Assigned at Date Recorded Female 03/20/2020 2:05 PM CDT documented as of this encounter Last Filed Vital Signs Vital Sign Reading Time Taken Comments Blood Pressure 141/92 06/27/2021 10:36 AM PROGRAM SUPPORT SPECIALIST Pulse 118 06/27/2021 10:36 AM PROGRAM SUPPORT SPECIALIST Temperature - - Respiratory Rate - - Oxygen Saturation - - Inhaled Oxygen Concentration - - Weight - - Height - - Body Mass Index - - documented in this encounter Patient Instructions Patient InstructionsAkash Jarvis - 06/27/2021 10:[address] Salinas will request PA and you will be notified once approved. It was a pleasure meeting with you today. Thank you for allowing me and my team the privilege of caring for you today. YOU are the reason we are here, and I truly hope we provided you with the excellent service you deserve. Please let us know if there is anything else we can do for you so that we can be sure you are leaving completely satisfied with your care experience. 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 He cannot have intercourse with his current lack of erectile tissue. Exam: BP (!) 141/92 Pulse 118 S/p neophallus Scrotum well healed. Has perineal urethrostomy Urethra has been excised and closed. No wounds. Assessment & Plan Erectile dysfunction Gender dysphoria Malpositioned left testcular prosthesis Needs IPP - single cylinder - coloplast and repositioning of left testicular prosthesis. Right testicular prosthesis would be removed to allow room for IPP pump Will request PA for IPP implant Risks, benefits, alternatives discussed. Demonstrated the implant to patient Aung Salinas MD Reconstructive Urology [facility] RAM SUPPORT SPECIALIST documented in this encounter Nursing Notes Cam Hurtado - 06/27/2021 10:45 AM CST Chief Complaint Patient presents with ??? Follow Up Blood pressure (!) 141/92, pulse 118, not currently . There is no height or weight on file to calculate BMI. Patient Active Problem List Diagnosis ??? Bipolar affective disorder (H) ??? HSV (herpes simplex virus) infection ??? Gender dysphoria ??? History of psychiatric hospitalization ??? Personal history of tobacco use, presenting hazards to health ??? Acne vulgaris ??? Migraine headache ??? Mixed hyperlipidemia ??? Autism ??? S/P hysterectomy ??? Status post SHADY-BSO ??? Hepatic steatosis ??? Postprocedural male urethral stricture No Known Allergies Current Outpatient Medications Medication Sig Dispense Refill ??? ADDERALL XR 20 MG 24 hr capsule ??? albuterol (PROAIR HFA/PROVENTIL HFA/VENTOLIN HFA) 108 (90 BASE) MCG/ACT Inhaler Inhale 2 puffs into the lungs ??? ALBUTEROL IN Inhale 2 puffs into the lungs ??? atorvastatin (LIPITOR) 40 MG tablet Take 1 tablet (40 mg) by mouth daily 360 tablet 0 ??? busPIRone (BUSPAR) 10 MG tablet ??? busPIRone HCl (BUSPAR) 30 MG tablet ??? celecoxib (CELEBREX) 200 MG capsule Take 200 mg by mouth daily (Patient not taking: Reported on 04/04/2021) ??? cyclobenzaprine (FLEXERIL) 5 MG tablet ??? desvenlafaxine (PRISTIQ) 50 MG 24 hr tablet Take 50 mg by mouth daily 0 ??? dicyclomine (BENTYL) 10 MG capsule ??? gabapentin (NEURONTIN) 600 MG tablet Take 1 tablet (600 mg) by mouth 3 times daily ??? hydrOXYzine (VISTARIL) 50 MG capsule ??? meloxicam (MOBIC) 7.5 MG tablet ??? metoclopramide (REGLAN) 5 MG tablet ??? needle, disp, 18G X 1 MISC Use to draw up hormones once weekly 25 each 3 ??? Needle, Disp, 27G X 5/8 MISC Use once weekly for administering hormone IM 25 each 3 ??? nortriptyline (PAMELOR) 25 MG capsule ??? OMEPRAZOLE PO Take 20 mg by mouth ??? OXcarbazepine (TRILEPTAL) 150 MG tablet ??? pantoprazole (PROTONIX) 20 MG EC tablet ??? pregabalin (LYRICA) 300 MG capsule ??? rosuvastatin (CRESTOR) 10 MG tablet ??? sulfamethoxazole-trimethoprim (BACTRIM DS) 800-160 MG tablet Take 1 tablet by mouth 2 times daily 14 tablet 0 ??? syringe, disposable, 1 ML MISC Use once weekly to draw up hormones 25 each 3 ??? testosterone cypionate (DEPOTESTOSTERONE) 200 MG/ML injection Inject 0.3 mLs (60 mg) into the muscle once a week Supply accounts for single-use vials 13 mL 1 ??? topiramate (TOPAMAX) 50 MG tablet Take 50 mg by mouth At Bedtime (Patient not taking: Reported on 06/27/2021) ??? valACYclovir (VALTREX) 500 MG tablet Take 1 tablet by mouth ??? vitamin D3 (CHOLECALCIFEROL) 2000 units tablet Take 1 tablet by mouth daily (Patient not taking:Reported on 04/04/2021) 100 tablet 3 Social History Tobacco Use ??? Smoking status: Former Smoker Packs/day: 0.25 Types: Cigarettes Quit date: 03/21/2021 Years since quittin.2 ??? Smokeless tobacco: Never Used Substance Use Topics ??? Alcohol use: Yes Comment: rarely ??? 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 documented in this encounter Additional Health Concerns Assessment Noted Time PHQ-9 Depression Total Score: 0 05/10/2019 4:19 PM PROGRAM SUPPORT SPECIALIST documented as of this encounter Care Teams Director Of Public Safety Relationship Specialty Start Date End Date Brenna Malcolm, PCP - General Family Medicine 04/04/21 [facility] [address] [place] [address] Bella Sears MD General Surgery 11/28/14 Tana Peña MD Plastic Surgery 10/30/15 [address] [place] [address] Sofiya Keenan MD MD psych therapist 01/11/[address] [place] [address] Debby Suggs, DISHWASHING MACHINE REPAIRER DISHWASHING MACHINE REPAIRER Plastic Surgery 11/26/16 Aung Salinas MD MD Urology 05/04/[address] [place] [address] Dana Jane, CASH Registered Nurse Urology 05/04/18 01/15/22 Shahzad Sen MD MD Plastic Surgery 10/08/18 [facility] [address] [place] [address] John Gresham Specialty Care Plastic Surgery 10/08/18 Coordinator Aung Salinas MD Assigned Surgical 12/17/[address] [place] [address] Provider [place], [place] [phone] Marce Gallardo MD Assigned PCP 04/08/21 06/30/21 [facility] [address] [place] [address] documented as of this encounter
--- OUTSIDE RECORDS SUMMARY | 2022-04-12 08:16 | XMS_ITS | Encounter Summary ---
:1995 Author Organization [facility] Address [address] [place] [address]. [place] [address] Care Team Providers Name Role Phone Bella Sears MD Unavailable Tana Peña MD Unavailable Sofiya Keenan MD Unavailable Debby Suggs LPN Unavailable Unavailable Aung Salinas MD Unavailable Dana Jane RN Unavailable Shahzad Sen MD Unavailable John Gresham Unavailable Aung Salinas MD Unavailable Brenna Malcolm MD Primary Care Provider [phone] Marce Gallardo MD Unavailable Belkis Champion MD Unavailable Marce Gallardo MD Unavailable Reason for Visit Reason Onset Date Comments Call Back 06/26/2021 switch post op to vi wade Encounter Details Date Type Department Care Team Description 06/26/2021 Telephone [facility] Aung Salinas Call B ack (switch post Urology Clinic op to video) [address] 4[address] Floor [address] [place], [place] [phone] (Work) [phone] Social History Tobacco Use Types Packs/Day Years Used Date Smoking Tobacco: Former Cigarettes 0.3 Quit : 03/21/2021 Smokeless Tobacco: Never Alcohol Use Standard Drinks/Week Comments Yes 0 (1 standard drink = 0.6 oz pure alcoho l) rarely Sex Assigned at Date Recorded Female 03/20/2020 2:05 PM CDT documented as of this encounter Miscellaneous Notes Telephone Encounter - Bonita Franklin - 06/26/2021 11:24 AM CST [facility] Phone Message May a detailed message be left on voicemail: yes Reason for Call: Other: Pt called in requesting to change his post op visit tomorrow 06/27/21 to a video. Please c/b to discuss Action Taken: Message routed to[facility] uro Travel Screening: Not Applicable CAL INTERN 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 documented as of this encounter Visit Diagnoses Not on filedocumented in this encounter Additional Health Concerns Assessment Noted Time PHQ-9 Depression Total Score: 0 05/10/2019 4:19 PM MEDICAL INTERN documented as of this encounter Care Teams Management Trainee Marketing Relationship Specialty Start Date End Date Brenna Malcolm, PCP - General Family Medicine 04/04/21 [facility] [address] [place] [address] Bella Sears MD General Surgery 11/28/14 Tana Peña MD Plastic Surgery 10/30/[address] [place] [address] [address] [place] [address] Sofiya Keenan MD MD field operations manager 01/11/16 [address] [facility] [address] [place] [address] Debby Suggs, AIR POLLUTION ANALYST AIR POLLUTION ANALYST Plastic Surgery 11/26/16 Aung Salinas MD MD Urology 05/04/18 [address] [place] [address] Dana Jane, CASH Registered Nurse Urology 05/04/18 01/15/22 Shahzad Sen MD MD Plastic Surgery 10/08/18 [facility] [address] [place] [address] John G[facility] Plastic Surgery 10/08/18 Coordinator Aung Salinas MD Assigned Surgical 12/17/[address] [place] [address] Marce Gallardo MD Assigned PCP 04/08/21 06/30/21 [facility] [id number] [place] [phone] Belkis Champion MD Assigned PCP 07/01/21 01/18/[address] [place], [place] [id number] Marce Gallardo MD Assigned PCP 01/19/22 [facility] [id number] [place] [phone] documented as of this encounter
--- OUTSIDE RECORDS SUMMARY | 2022-04-12 08:16 | XMS_ITS | Encounter Summary ---
:1995 Author Organization [facility] Address [address] [place] [address] Care Team Providers Name Role Phone Unavailable Primary Care Provider Unavailable Encounter Details Date Type Department Care Team Description 09/08/2009 Hospital Encounter HX NO MAPPING Social History Tobacco Use Types Packs/Day Years [...] 03/20/2022 relatives? How often do you attend yazdanism or church services? Never 03/20/2022 Do you belong to any clubs or organizations such as No 03/20/2022 yazdanism groups, unions, fraternal or athletic groups, or [...] minutes do you engage in exercise at is 30 min 03/20/2022 level? Stress Answer [...] place to sleep or slept in a half-way (including now)? Sex Assigned at Date Recorded Female 03/20/2022 7:54 AM CDT documented as of this encounter Plan of Treatment Upcoming Encounters Date Type Specialty Care Team Description 05/23/2022 Telemedicine Endocrinology Arely Bond M.B., B.Ch. [address] [place] [address] [phone] (Wo rk) documented as of this encounter Visit Diagnoses Not on filedocumented in this encounter Additional Health Concerns Assessment Noted Time PHQ-9 Depression Total Score: 17 09/08/2009 10:03 PM C DT documented as of this encounter
--- OUTSIDE RECORDS SUMMARY | 2022-04-12 08:16 | XMS_ITS | Encounter Summary ---
:1995 Author Organization [facility] Address [address] [place] [address]. [place] [address] Care Team Providers Name Role Phone Bella Sears MD Unavailable Tana Peña MD Unavailable Sofiya Keenan MD Unavailable Debby Suggs LPN Unavailable Unavailable Aung Salinas MD Unavailable Dana Jane RN Unavailable Shahzad Sen MD Unavailable John Gresham Unavailable Beckie Cota MD Primary Care Provider Aung Salinas MD Unavailable Beckie Cota MD Unavailable Reason for Visit Auth/Cert Specialty Diagnoses / Procedures Referred By Contact Refer red To Contact Surgery Diagnoses Postprocedural male urethral stricture Postprocedural male urethral stricture [N99.114] [facility] Procedures HC REVISE URETHRA, 2ND STAGE ZZC RECONSTRUC PROS URETHRA,2ND STAGE URETHROPLASTY, STAGE [address] [place] [address] [address] [place] [address] Phone: Fax: Referral ID Status Reason Start Date Expiration Date Visits Requ ested Visits Authorized [id number] 1 1 Encounter Details Date Type Department Care Team Description 03/19/2021 Surgery [facility] Aung Salinas MD URETHROPLASTY, STAGE 2 OR [place] [address] [place], [place] [address] [address] [phone] (Wo rk) [id number] [phone] Surgery Details Date/Time Status Location OR Service Patient Class Case Case Trauma Class Type Case? 03/19/21 1:40 Posted [facility] OR OR 08 Urology Outpatient PM Panel 1 Procedure [facility] Anes Op Region Wound Class Commen ts URETHROPLASTY, STAGE 2 N/A General Penis I-Clean Surgeon Surgeon Role Service Panel Aung Salinas MD Primary Urology 1 Bonita Alanis MD Resident - Assisting 1 Special Needs COVID [facility] 03/16 MY documented in this encounter Social History Tobacco Use Types Packs/Day Years [...] / COVID-19? documented as of this encounter Last Filed Vital Signs Vital Sign Reading Time Taken Comments Blood Pressure 110/77 03/19/2021 4:00 PM CDT Pulse 85 03/19/2021 11:44 AM CDT Temperature 36.3 ??C (97.3 ??F) 03/19/2021 3:53 PM CDT Respiratory Rate 16 03/19/2021 4:00 PM CDT Oxygen Saturation 97% 03/19/2021 4:00 PM CDT Inhaled Oxygen Concentration - - Weight 76.5 kg (168 lb 11.2 oz) 03/19/2021 11:44 AM CDT Height 165.1 cm (5' 5) 03/19/2021 11:44 AM CDT Body Mass Index 28.07 03/19/2021 11:44 AM CDT documented in this encounter Discharge Instructions Discharge InstructionsElinor Collins RN - 03/19/2021 2:45 PM CDT [facility] Home Care Following Anesthesia For 24 hours after surgery: 1. Get plenty of rest. A responsible adult must stay with you for at least 24 hours after you leave the surgery center. 2. Do not drive or use heavy equipment. If you have weakness or tingling, don't drive or use heavy equipment until this feeling goes away. 3. Do not drink alcohol. 4. Avoid strenuous or risky activities. Ask for help when climbing stairs. 5. You may feel lightheaded. IF so, sit for a few minutes before standing. Have someone help you getup. 6. If you have nausea (feel sick to your stomach): Drink only clear liquids such as apple juice, alberto margo, broth or 7-Up. Rest may also help. Be sure to drink enough fluids. Move to a regular diet asyou feel able. 7. You may have a slight fever. Call the doctor if your fever is over 100??F (37.7??C) (taken under the tongue) or lasts longer than 24 hours. 8. You may have a dry mouth, a sore throat, muscle aches or trouble sleeping. These should go away after 24 hours. 9. Do not make important or legal decisions. 10. It is recommended to avoid smoking. Tips for taking pain medications To get the best pain relief possible, remember these points: ?? Take pain medications as directed, before pain becomes severe. ?? Pain medication can upset your stomach: taking it with food may help. ?? Constipation is a common side effect of pain medication. Drink plenty of fluids. ?? Eat foods high in fiber. Take a stool softener if recommended by your doctor or pharmacist. ?? Do not drink alcohol, drive or operate machinery while taking pain medications. ?? Ask about other ways to control pain, such as with heat, ice or relaxation. Tylenol/Acetaminophen Consumption To help encourage the safe use of acetaminophen, the makers of TYLENOL?? have lowered the maximum daily dose for single-ingredient Extra Strength TYLENOL?? (acetaminophen) products sold in the [place] from 8 pills per day (4,000 mg) to 6 pills per day (3,000 mg). The dosing interval has also changed from2 pills every 4-6 hours to 2 pills every 6 hours. ??? If you feel your pain relief is insufficient, you may take Tylenol/Acetaminophen in addition to your narcotic pain medication. ??? Be careful not to exceed 3,000 mg of Tylenol/Acetaminophen in a 24 hour period from all sources. ??? If you are taking extra strength Tylenol/acetaminophen (500 mg), the maximum dose is 6 tablets in 24 hours. ??? If you are taking regular strength acetaminophen (325 mg), the maximum dose is 9 tablets in 24 hours. Call a doctor for any of the followin. Signs of infection (fever, growing tenderness at the surgery site, a large amount of drainage or bleeding, severe pain, foul-smelling drainage, redness, swelling). 2. It has been over 8 to 10 hours since surgery and you are still not able to urinate (pass water). 3. Headache for over 24 hours. 4. Signs of Covid-19 infection (temperature over 100 degrees, shortness of breath, cough, loss of taste/smell, generalized body aches, persistent headache, chills, sore throat, nausea/vomiting/diarrhea) Your doctor is: Dr. Aung Salinas, Prostate and Urology: [phone] Or dial [phone] and ask for the resident accounting professional for: Prostate Urology For emergency care, call the: [facility]: [phone] (TTY for hearing impaired: [phone]) documented in this encounter Medications at Time of Discharge Medication Sig Dispensed Refills Start Date End Date albuterol (PROAIR Inhale 2 puffs into 0 5 HFA/PROVENTIL the lungs HFA/VENTOLIN HFA) 108 (90 BASE) MCG/ACT Inhaler ALBUTEROL IN Inhale 2 puffs into 0 12/24/2014 the lungs atorvastatin (LIPITOR) 40 Take 1 tablet (40 360 tablet 0 MG tabletIndications: mg) by mouth daily Hypercholesteremia busPIRone (BUSPAR) 10 MG 0 10/31/2020 tablet celecoxib (CELEBREX) 200 Take 200 mg by mouth 0 MG capsule daily cyclobenzaprine 0 11/23/2020 (FLEXERIL) 5 MG tablet desvenlafaxine (PRISTIQ) Take 50 mg by mouth 0 50 MG 24 hr tablet daily gabapentin (NEURONTIN) Take 1 tablet (600 0 03/20 600 MG tablet mg) by mouth 3 times daily metoclopramide (REGLAN) 5 0 10/28/2020 MG tablet OMEPRAZOLE PO Take 20 mg by mouth 0 topiramate (TOPAMAX) 50 Take 50 mg by mouth 0 MG tablet At Bedtime valACYclovir (VALTREX) Take 1 tablet by 0 015 500 MG tablet mouth vitamin D3 Take 1 tablet by 100 tablet 3 07/17/2018 (CHOLECALCIFEROL) 2000 mouth daily units tabletIndications: Health care maintenance oxyCODONE (ROXICODONE) 5 Take 1 tablet (5 mg) 20 tablet 0 1 03/24/2021 MG tabletIndications: by mouth every 6 Postprocedural male hours as needed for urethral stricture pain needle, disp, 18G X 1 Use to draw up 25 each 3 06/18/2021 MISCIndications: Gender hormones once weekly dysphoria in adult Needle, Disp, 27G X 5/8 Use once weekly for 25 each 3 06/18/2021 MISCIndications: Gender administering dysphoria in adult hormone IM syringe, disposable, 1 ML Use once weekly to 25 each 3 06/18/2021 MISCIndications: Gender draw up hormones dysphoria in adult testosterone cypionate Inject 0.3 mLs (60 13 mL 1 11/1006/18/2021 (DEPOTESTOSTERONE) 200 mg) into the muscle MG/ML once a week Supply injectionIndications: accounts for Gender dysphoria in adult single-use vials documented as of this encounter Nursing Notes Shari Kam RN - 03/19/2021 11:59 PM CDTSummary: 03/19 No hcg done ; as pt stated had hysterectomy and also noted in pt's chart documented in this encounter Miscellaneous Notes Brief Op Note - Bonita Alanis MD - 03/19/2021 3:52 PM CDT [facility] Brief Operative Note Pre-operative diagnosis: Postprocedural male urethral stricture [N99.114] Post-operative diagnosis Same as pre-operative diagnosis Procedure: Procedure(s): URETHROPLASTY, STAGE 2 Surgeon: Surgeon(s) and Role: * Aung Salinas MD - Primary * Bonita Alanis MD - Resident - Assisting Anesthesia: General Estimated Blood Loss: 10 mL Drains: None Specimens: * No specimens in log * Findings: Ventral skin graft excised from neophallus and skin re-approximated. Unremarkable second stage urethroplasty. Complications: None. Implants: * No implants in log * Dispo: PACU then home. RTC for wound check in 3 weeks. Bonita Alanis MD PGY-4 Urology Pager [phone] Op Note - Aung Salinas MD - 03/19/2021 2:56 PM CDT Pre-operative diagnosis: 1. Gender Dysphoria 2. Urethral Stricture 3. History of first-stage phalloplasty Post-operative diagnosis: same Procedure: 1. Second stage urethroplasty Surgeon: Aung Salinas M.D. Public Works Laborer: Bonita Alanis MD Indications: Mr. Pablo Chakraborty is a 25 year old transgender man with a history of a radial forearm free flap phalloplasty at an outside hospital with multiple revisions. He underwent a first stage urethroplasty with ventral penile skin graft, however his pars fixa is now closed and he voids via perineal urethrostomy. He does not wish to void through the tip of his pens, but would like to close his pendulous urethra to give him a physiologic penis. He would also like revision of his testicular prosthesis as they do not lie symmetrically, however we discussed this would be performed as a separate surg lisa. After a full discussion of the risks, benefits, and alternatives, he was agreeable to proceed with the above stated procedure. ?? Procedure: After informed consent was obtained and pre-operative antibiotics were given, he was taken to operation room and placed in the supine position. General anesthesia was induced and an airway was secured. The patient was shaved prepped and draped in the usual sterile fashion. ?? We began the procedure by excising the previous full thickness skin graft plate from the ventral side of the phallus. We excised the dermis to the level of the subcutaneous fat. Hemostasis was achievedusing bipolar electrocautery. The distal aspect of the urethra was then closed for physiologic appearance. The urethral cleft was fashioned by creating distal tissue flaps which were rolled and tacked in place with interrupted 3-0 vicryl suture. The dermis along the remainder of the phallus was re-approximated using 3-0 vicryl suture in and interrupted fashion and the penile skin was closed with 3-0 monocryl in an interrupted horizontal mattress fashion. A meatal cleft was fashioned by adding an additional anchoring suture at the most superior aspect of the incision. This concluded the procedure. Exofin Mesh was applied to the penile incision. ?? The patient was awakened from anesthesia and taken to the recovery room in stable condition. ?? Drains: None. Complications: none EBL: 10 ml ?? Dispo: - PACU then home - Return to clinic in 3 weeks for wound check As attending surgeon, Aung Domigno MD, was scrubbed and present for the entire procedure. 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 documented as of this encounter Procedures Procedure Name Priority Date/Time Associated Diagnosis Comme nts URETHROPLASTY STAGE TWO Routine 03/19/2021 7:16 AM Postprocedu ral male CDT urethral stricture LAB RESULT - HIM SCAN 03/15/2021 12:00 AM CDT LAB RESULT - HIM SCAN 03/15/2021 12:00 AM CDT documented in this encounter Results LAB RESULT - HIM SCAN (03/15/2021 12:00 AM CDT) Specimen (Source) Anatomical Location Collection Method / Collectio n Time Received Time / Laterality Volume 03/15/2021 Narrative This result has an attachment that is no t available. Provider Scan [facility] NON-BEAKER LAB TESTING LAB RESULT - HIM SCAN (03/15/2021 12:00 AM CDT) Specimen (Source) Anatomical Location Collection Method / Collectio n Time Received Time / Laterality Volume 03/15/2021 Narrative This result has an attachment that is no t available. Provider Scan NON-BEAKER LAB TESTING documented in this encounter Visit Diagnoses Diagnosis Postprocedural male urethral stricture - Primary Postoperative urethral stricture Postprocedural male urethral stricture Postoperative urethral stricture Postprocedural male urethral stricture Postoperative urethral stricture documented in this encounter Admitting Diagnoses Diagnosis Postprocedural male urethral stricture Postoperative urethral stricture documented in this encounter Administered Medications Inactive Administered Medications - up to 3 most recent administrations Medication Order MAR Action Action Date Dose Rate Site acetaminophen (TYLENOL) tablet Given 03/19/2021 12:28 PM CDT 975 mg 975 mg 975 mg, Oral, ONCE, On Fri03/19/21 at 1230, For 1 dose, Maximum acetaminophen dose from all sources = 75 mg/kg/day not to exceed 4 grams/day., Pre-procedure gabapentin (NEURONTIN) capsule 300 mg Given 03/19/2021 12:30 PM CDT 300 mg 300 mg, Oral, PRE-OP/PRE-PROCEDURE, Starting on Fri03/19/21 at 1203, For 1 dose, For pain with neuropathic features, Pre-procedure documented in this encounter Additional Health Concerns Assessment Noted Time PHQ-9 Depression Total Score: 0 05/10/2019 4:19 PM MATTRESS RENOVATOR documented as of this encounter Care Teams Tire Service Supervisor Relationship Specialty Start Date End Date Beckie Cota MD PCP - General Student in organized 12/13/20 04/03/21 [facility] Residency health care Program education/training [address] [place] [address] Bella Sears, General Surgery 11/28/14 Tana Peña MD Plastic Surgery 10/30/[address] [place] [address] [address] [place], [place] [address] Sofiya Keenan MD MD developer automatic 01/11/[address] [facility] [address] [place] [address] Debby Suggs LPN WATERWORKS OPERATOR Plastic Surgery 11/26/16 Aung Salinas MD MD Urology 05/04/[address] [place] [address] Dana Jane, RN Registered Nurse Urology 05/04/18 01/15/22 Shahzad Sen MD MD Plastic Surgery 10/08/18 [facility] [address] [place] [address] John Gresham [facility] Care Plastic Surgery 10/08/18 Coordinator Aung Salinas MD Assigned Surgical 12/17/[address] [place] [address] Provider [place], [place] [id number] Beckie Cota MD Assigned PCP 12/17/20 04/07/21 [facility] Residency Program [address] [place], [place] [id number] documented as of this encounter
--- OUTSIDE RECORDS SUMMARY | 2022-04-12 08:16 | XMS_ITS | Encounter Summary ---
:1995 Author Organization [facility] Address [address] [place] [address]. [place] [address] Care Team Providers Name Role Phone Bella Sears MD Unavailable Tana Peña MD Unavailable ReeSofiya mullins MD Unavailable Debby Suggs LPN Unavailable Unavailable Aung Salinas MD Unavailable Dana Jane RN Unavailable Shahzad Sen MD Unavailable John Gresham Unavailable Aung Salinas MD Unavailable Brenna Malcolm MD Primary Care Provider [phone] Belkis Champion MD Unavailable Reason for Visit Reason Onset Date Comments Schedule Surgery 08/10/2021 Dr. Salinas Encounter Details Date Type Department Care Team Description 08/10/2021 [facility] Aung Salinas [place] [facility] ( Urology Clinic MD Salinas) [place] [id number] [place], [place] 4th Floor [address] [place], [place] [phone] [address] (Work) [phone] Social History Tobacco Use Types Packs/Day Years Used Date Smoking Tobacco: Former Cigarettes 0.3 Quit : 03/21/2021 Smokeless Tobacco: Never Alcohol Use Standard Drinks/Week Comments Yes 0 (1 standard drink = 0.6 oz pure alcoho l) rarely Sex Assigned at Date Recorded Female 03/20/2020 2:05 PM CDT documented as of this encounter Miscellaneous Notes Telephone Encounter - Shelbi Stern - 08/10/2021 11:42 AM CST Called and left voicemail for patient about scheduling surgery with Dr. Salinas. Gave [phone] as call back number. ORT REFUELING HANDLER 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 documented as of this encounter Visit Diagnoses Not on filedocumented in this encounter Additional Health Concerns Assessment Noted Time PHQ-9 Depression Total Score: 0 05/10/2019 4:19 PM AIRPORT REFUELING HANDLER documented as of this encounter Care Teams Residency Program Coordinator Relationship Specialty Start Date End Date Brenna Malcolm, PCP - General Family Medicine 04/04/[address] [address] Bella Sears MD General Surgery 11/28/14 Tana Peña MD Plastic Surgery 10/30/[address] [place] [address] [address] [place] [address] Sofiya Keenan MD MD natural resources technician 01/11/[address] [place] [address] [address] [place], [place] [id number] Debby Suggs LPN WEB SIZER Plastic Surgery 11/26/16 Aung Salinas MD MD Urology 05/04/18 [address] [place] [address] Dana Jane, CASH Registered Nurse Urology 05/04/18 01/15/22 Shahzad Sen MD MD Plastic Surgery 10/08/18 [facility] [address] [place] [address] John Gresham [facility] Plastic Surgery 10/08/18 Coordinator Aung Salinas MD Assigned Surgical 12/17/20 [address] [place], [place] [address] Belkis Champion MD Assigned PCP 07/01/21 01/18/22 [address] [place], [place] [id number] documented as of this encounter
--- OUTSIDE RECORDS SUMMARY | 2022-04-12 08:16 | XMS_ITS | Encounter Summary ---
:1995 Author Organization [facility] Address [address] [place] [id number] Care Team Providers Name Role Phone Bella Sears MD Unavailable Tana Peña MD Unavailable Sofiya Keenan MD Unavailable Debby Suggs LPN Unavailable Unavailable Aung Salinas MD Unavailable Dana Jane RN Unavailable Shahzad Sen MD Unavailable John Gresham Unavailable Aung Salinas MD Unavailable Beckie Cota MD Unavailable Brenna Malcolm MD Primary Care Provider [phone] Encounter Details Date Type Department Care Team Description 04/04/2021 Travel Social History Tobacco Use Types Packs/Day Years [...] been in contact with No / Unsure 04/04/2021 9:24 AM CDT someone who was confirmed or 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 documented as of this encounter Care Teams Network Communications Engineer Relationship Specialty Start Date End Date Brenna Malcolm, PCP - General Family Medicine 04/04/21 [facility] [address] [place] [address] Bella Sears MD General Surgery 11/28/14 Tana Peña MD Plastic Surgery 10/30/[address] [place] [address] [address] [place] [address] Sofiya Keenan MD MD communications technologist 01/11/16 [address] [facility] [address] [place] [address] Debby Suggs, PARK RECREATION MANAGER PARK RECREATION MANAGER Plastic Surgery 11/26/16 Aung Salinas MD MD Urology 05/04/[address] [place] [address] Dana Jane, CASH Registered Nurse Urology 05/04/18 01/15/22 Shahzad Sen MD MD Plastic Surgery 10/08/18 [facility] [address] [place] [address] [facility] Plastic Surgery 10/08/18 Coordinator Aung Salinas MD Assigned Surgical 12/17/20 [address] [facility] [place] [address] Beckie Cota MD Assigned PCP 12/17/20 04/07/21 [facility] [address] [place] [address] documented as of this encounter
--- OUTSIDE RECORDS SUMMARY | 2022-04-12 08:16 | XMS_ITS | Encounter Summary ---
:1995 Author Organization [facility] Address [address] [place] [address]. [place] [address] Care Team Providers Name Role Phone Bella Sears MD Unavailable Tana Peña MD Unavailable StendalSofiya mullins MD Unavailable Debby Suggs LPN Unavailable Unavailable Aung Salinas MD Unavailable Dana Jane RN Unavailable Shahzad Sen MD Unavailable John Gresham Unavailable Aung Salinas MD Unavailable Beckie Cota MD Unavailable Brenna Malcolm MD Primary Care Provider [phone] Reason for Visit Reason Comments RECHECK wound check Encounter Details Date Type Department Care Team Description 04/04/2021 Office Visit [facility] Aung Salinas, Gender dysphoria Urology Clinic (Primary Dx) [address] 4[address] Floor [address] [place], [place] [phone] (Work) [phone] Social History Tobacco Use Types Packs/Day Years [...] Sign Reading Time Taken Comments Blood Pressure 127/85 04/04/2021 9:39 AM CDT Pulse 87 04/04/2021 9:39 AM CDT Temperature - - Respiratory Rate - - Oxygen Saturation - - Inhaled Oxygen Concentration - - Weight 76.6 kg (168 lb 12.8 oz) 04/04/2021 9:39 AM CDT Height 165.1 cm (5' 5) 04/04/2021 9:39 AM CDT Body Mass Index 28.09 04/04/2021 9:39 AM CDT documented in this encounter Patient Instructions Patient InstructionsCuOlga reyes CMA - 04/04/2021 9:45 AM CDT Follow up in June for an in person visit. It was a pleasure meeting with you [...] leaving completely satisfied with your care experience. Olga Francis CMA documented in this encounter Progress Notes Aung Salinas MD - 04/04/2021 9:45 AM CDT Urology Clinic Note Date: 04/04/2021 Time: 9:46 AM Patient: Pablo Chakraborty Reason for Visit: Follow-up HPI/Subjective: Pablo Chakraborty is a 25 year old transgender male who underwent second-stage phalloplasty with Dr. Salinas on 03/19, presents for follow-up. Post-op course was notable for superficial wound infection. He was originally started on Keflex, however he was switched to Bactrim after a few days without improvement. Reports he is feeling better now. Still mild may-incisional erythema. He has been struggling with hot flashes. Objective: BP 127/85 Pulse 87 Ht 1.651 m (5' 5) Wt 76.6 kg (168 lb 12.8 oz) BMI 28.09 kg/m?? Gen: In NAD, conversant Resp: Breathing non-labored on room air. CV: Warm and well perfused. Abd: Soft, non-distended, non-tender. : Neophallus with ventral midline incision- healing well. Some mild may- incisional erythema with some fibrinous exudate Ext: Moving all 4, no BLE edema noted Neuro: No focal deficits noted Labs/Imaging: None. Assessment & Plan: Pablo Chakraborty is a 25 year old adult who is 3 weeks s/p second-stage phalloplasty, complicated by superficial wound infection- clearing up with course of Bactrim. He would like an IPP. He is also bothered by his high-riding right testicular prosthesis which we will plan toaddress at this at the time of surgery. Likely will place the pump on the right and revise the left prosthesis. - RTC in June to assess readiness for IPP implant + testicular revision Bonita Alanis MD PGY-4 Urology Pager [phone] Physician Attestation I, Aung Salinas MD, saw this patient and agree with the findings and plan of care as documented in the note. . Aung Salinas MD documented in this encounter Nursing Notes Olga Francis, ROBERTO - 04/04/2021 9:45 AM CDT Chief Complaint Patient presents with ??? RECHECK wound check Blood pressure 127/85, pulse 87, height 1.651 m (5' 5), weight 76.6 kg (168 lb 12.8 oz), not currently . Body mass index is 28.09 kg/m??. Patient Active Problem List Diagnosis ??? Bipolar [...] Outpatient Medications Medication Sig Dispense Refill ??? albuterol (PROAIR HFA/PROVENTIL HFA/VENTOLIN HFA) 108 (90 BASE) MCG/ACT Inhaler Inhale 2 puffs into the lungs ??? ALBUTEROL IN Inhale 2 puffs into the lungs ??? atorvastatin (LIPITOR) 40 MG tablet Take 1 tablet (40 mg) by mouth daily 360 tablet 0 ??? cyclobenzaprine (FLEXERIL) 5 MG tablet ??? desvenlafaxine (PRISTIQ) 50 MG 24 hr tablet Take 50 mg by mouth daily 0 ??? needle, disp, 18G X 1 MISC Use to draw up hormones once weekly 25 each 3 ??? Needle, Disp, 27G X 5/8 MISC Use once weekly for administering hormone IM 25 each 3 ??? OMEPRAZOLE PO Take 20 mg by mouth ??? sulfamethoxazole-trimethoprim (BACTRIM DS) 800-160 MG tablet [...] Take 50 mg by mouth At Bedtime ??? valACYclovir (VALTREX) 500 MG tablet Take 1 tablet by mouth ??? busPIRone (BUSPAR) 10 MG tablet ??? celecoxib (CELEBREX) 200 MG capsule Take 200 mg by mouth daily (Patient not taking: Reported on 04/04/2021) ??? cephALEXin (KEFLEX) 500 MG capsule Take 1 capsule (500 mg) by mouth 2 times daily for 7 days (Patient not taking: Reported on 04/04/2021) 14 capsule 0 ??? gabapentin (NEURONTIN) 600 MG tablet Take 1 tablet (600 mg) by mouth 3 times daily ??? metoclopramide (REGLAN) 5 MG tablet ??? vitamin D3 (CHOLECALCIFEROL) 2000 units tablet Take 1 tablet by mouth daily (Patient not taking:Reported on 04/04/2021) 100 tablet 3 Social History Tobacco Use ??? Smoking status: Former Smoker Packs/day: 0.25 Types: Cigarettes Quit date: 03/21/2021 Years since quittin.0 ??? Smokeless tobacco: Never Used Substance Use Topics ??? Alcohol use: Yes Comment: rarely ??? 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 encounter Care Teams Tool Programmer Relationship Specialty Start Date End Date Brenna Malcolm, PCP - General Family Medicine 04/04/[address] [address] Bella Sears MD General Surgery 11/28/14 Tana Peña MD Plastic Surgery 10/30/[address] [place] [address] Sofiya Keenan MD MD filler shredding machine loader 01/11/16 [address] [facility] [address] [place] [address] eDbby Suggs, TRAFFIC INCIDENT MANAGEMENT MANAGER TRAFFIC INCIDENT MANAGEMENT MANAGER Plastic Surgery 11/26/16 Aung Salinas MD MD Urology 05/04/18 [address] [place] [address] Dana Jane, RN Registered Nurse Urology 05/04/18 01/15/22 Shahzad Sen MD MD Plastic Surgery 10/08/18 [facility] [address] [place] [address] John Gresham Specialty Care Plastic Surgery 10/08/18 Coordinator Aung Salinas MD Assigned Surgical 12/17/20 [address] [facility] Provider [place], [place] [id number] Beckie Cota MD Assigned PCP 12/17/20 04/07/21 [facility] Residency Program [address] [place], [place] [id number] documented as of this encounter
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
--- OUTSIDE RECORDS SUMMARY | 2022-04-12 08:16 | XMS_ITS | Clinical Summary ---
:1995 Author Organization [place] Address [address] [place] [address] Care Team Providers Name Role Phone Bella Sears MD Unavailable Tnaa Peña MD Unavailable Sofiya Keenan MD Unavailable Debby Suggs LPN Unavailable Unavailable Aung Salinas MD Unavailable Shahzad Sen MD Unavailable John Gresham Unavailable Aung Salinas MD Unavailable Brenna Malcolm MD Primary Care Provider [phone] Marce Gallardo MD Unavailable Allergies No known active allergies Medications Medication Sig Dispensed Refills Start Date End Date Status topiramate (TOPAMAX) Take 50 mg by 0 Active 50 MG tablet mouth At Bedtime albuterol (PROAIR Inhale 2 puffs 0 12/24/2014 Active HFA/PROVENTIL into the lungs HFA/VENTOLIN HFA) 108 (90 BASE) MCG/ACT Inhaler valACYclovir (VALTREX) Take 1 tablet by 0 11/22/2014 Active 500 MG tablet mouth ALBUTEROL IN Inhale 2 puffs 0 12/24/2014 A ctive into the lungs vitamin D3 Take 1 tablet by 100 tablet 3 07/17/2018 Active (CHOLECALCIFEROL) 2000 mouth daily units tabletIndications: Health care maintenance Additional Information Patient not taking. Reported on 04/04/2021 desvenlafaxine (PRISTIQ) 50 Take 50 mg by mouth 0 Active MG 24 hr tablet daily celecoxib (CELEBREX) 200 MG Take 200 mg by mouth 0 Active capsule daily gabapentin (NEURONTIN) 600 MG Take 1 tablet (600 mg) 0 03/20/2020 Active tablet by mouth 3 times daily OMEPRAZOLE PO Take 20 mg by mouth 0 Active atorvastatin (LIPITOR) 40 MG Take 1 tablet (40 mg) 360 tablet 0 05/31/2020 Active tabletIndications: by mouth daily Hypercholesteremia busPIRone (BUSPAR) 10 MG 0 10/31/2020 Active tablet cyclobenzaprine (FLEXERIL) 5 0 11/23/2020 Active MG tablet sulfamethoxazole-trimethoprim Take 1 tablet by mouth 14 tablet 0 03/31/2021 Active (BACTRIM DS) 800-160 MG 2 times daily tabletIndications: Wound infection metoclopramide (REGLAN) 5 MG 0 10/28/2020 Active tablet syringe, disposable, 1 ML Use once weekly to draw 25 each 3 06/18/2021 Active MISCIndications: Gender up hormones dysphoria in adult needle, disp, 18G X 1 Use to draw up hormones 25 each 08/2021 Active MISCIndications: Gender once weekly dysphoria in adult Needle, Disp, 27G X 5/8 Use once weekly for 25 each 06/18 Active MISCIndications: Gender administering hormone dysphoria in adult IM testosterone cypionate Inject 0.3 mLs (60 mg) 13 mL 1 08/2021 Active (DEPOTESTOSTERONE) 200 MG/ML into the muscle once a injectionIndications: Gender week Supply accounts dysphoria in adult for single-use vials ADDERALL XR 20 MG 24 hr 0 06/12/2021 Active capsule busPIRone HCl (BUSPAR) 30 MG 0 06/24/2021 Active tablet dicyclomine (BENTYL) 10 MG 0 03/30/2021 Active capsule hydrOXYzine (VISTARIL) 50 MG 0 06/12/2021 Active capsule meloxicam (MOBIC) 7.5 MG 0 06/19/2021 Active tablet nortriptyline (PAMELOR) 25 MG 0 06/19/2021 Active capsule OXcarbazepine (TRILEPTAL) 150 0 06/12/2021 Active MG tablet pantoprazole (PROTONIX) 20 MG 0 06/12/2021 Active EC tablet pregabalin (LYRICA) 300 MG 0 06/02/2021 Active capsule rosuvastatin (CRESTOR) 10 MG 0 06/14/2021 Active tablet Active Problems Problem Noted Date Postprocedural male urethral stricture 12/12/2020 Overview: Added automatically from request for tyrone lucas [id number] Hepatic steatosis 08/07/2016 Overview: Mild diffuse hepatic steatosis noted on US, has undergone rule-out of hepatitis, A-I, hemochromatosis. LFTs improving Status post SHADY-BSO 05/16/2016 S/P hysterectomy 03/12/2016 Autism 01/04/2016 Mixed hyperlipidemia 09/28/2015 Migraine headache 07/26/2015 Acne vulgaris 06/17/2015 Gender dysphoria 03/24/2015 History of psychiatric hospitalization 03/24/2015 Overview: For SI Diagnosis updated by automated process. Provider to review and confirm. Personal history of tobacco use, presenting hazards to health 03/24/2015 Bipolar affective disorder 02/08/2015 Overview: Misdiagnosis per patient HSV (herpes simplex virus) infection 02/08/2015 Resolved Problems Problem Noted Date Resolved Date S/P SHADY-BSO (total abdominal hysterectomy and bilateral 07/201606/17/2016 salpingo-oophorectomy) Immunizations Name Administration Dates Next Due DTAP (<7y) 10/23/1999, 08/26/1995, 1994, 1994, 1994 HPV 09/23/2012, 05/26/2012, 03/26/2012 HepB 03/26/2012, 1994 HepB-Adult 03/20/2020 MMR 10/23/1999, 08/26/1995 Poliovirus, inactivated (IPV) 10/23/1999, 1994, 1994, 1994 TDAP Vaccine (Boostrix) 03/23/2015 Tdap (Adacel,Boostrix) 03/23/2015 Family History Medical History Relation Comments Depression Father Diabetes Father Cerebrovascular Disease Maternal Grandfather Bipolar Disorder Maternal Grandmother Hypertension Mother Pulmonary Embolism Mother Coronary Artery Disease Other Diabetes Other Other Cancer Other Coronary Artery Disease Paternal Grandmother Breast Cancer No family hx of Colon Cancer No family hx of Hyperlipidemia No family hx of Relation Status Comments Father Maternal Grandfather Maternal Grandmother Mother Other Paternal Grandmother Social History Tobacco Use Types Packs/Day Years Used Date Smoking Tobacco: Former Cigarettes 0.3 Quit : 03/21/2021 Smokeless Tobacco: Never Alcohol Use Standard Drinks/Week Comments Yes 0 (1 standard drink = 0.6 oz pure alcoho l) rarely Sex Assigned at Date Recorded Female 03/20/2020 2:05 PM CDT Last Filed Vital Signs Vital Sign Reading Time Taken Comments Blood Pressure 141/92 06/27/2021 10:36 AM SPOOLING SUPERVISOR Pulse 118 06/27/2021 10:36 AM SPOOLING SUPERVISOR Temperature 36.4 ??C (97.6 ??F) 03/19/2021 4:30 PM CDT Respiratory Rate 18 03/19/2021 4:30 PM CDT Oxygen Saturation 97% 03/19/2021 4:30 PM CDT Inhaled Oxygen Concentration - - Weight 76.6 kg (168 lb 12.8 oz) 04/04/2021 9:39 AM CDT Height 165.1 cm (5' 5) 04/04/2021 9:39 AM CDT Body Mass Index 28.09 04/04/2021 9:39 AM CDT Plan of Treatment Scheduled Procedures Name Priority Associated Diagnoses Date/Time INSERTION, PENILE PROSTHESIS, Gender dys phoria INFLATABLE 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 Health Maintenance Due Date Last Done Comments ADVANCE CARE PLANNING 1994 ANNUAL REVIEW OF HM ORDERS 1994 YEARLY PREVENTIVE VISIT 1994 COVID-19 Vaccine (4 - 07/31/2021 06/05/2021, 12/01/2020, Booster for Moderna 10/19/2020 series) INFLUENZA VACCINE (#1) 2022 06/13/2021, 04/13/2010, 06/29/2009, Additional history exists DTAP/TDAP/TD IMMUNIZATION 03/23/2025 03/23/2015, 03/23/2015 , (7 - Td or Tdap) 10/23/1999, Additional history exists IPV IMMUNIZATION Completed 10/23/1999, 1994, 1994, Additional history exists HIV SCREENING Addressed 06/16/2018 Overridden with the intention of not completing the t opic HEPATITIS B IMMUNIZATION Completed 03/20/2020, 03/26/2012, 03/26/2012, Additional history exists HEPATITIS C SCREENING Completed 04/19/2020 Pneumococcal Vaccine: Aged Out 06/13/2021 No longer eligible Pediatrics (0 to 5 Years) based on patient's age and At-Risk Patients (6 to to co mplete this topic 64 Years) PHQ-2 (once per calendar Completed 06/18/2021, 11/10/2020, year) 03/20/2020, Additional history exists MENINGITIS IMMUNIZATION Aged Out No longe r eligible based on patient 's age to complete this topic PAP Discontinued Insurance Payer Benefit Plan Subscriber ID Effective Phone Address Typ e / Group Dates [facility] [id number] 2020-Smita [phone] [address] [employer] [facility] [address] [id number] [facility] [place] [facility] [id number] Advance Directives For more information, please contact: [phone] Latest Code Status on File Code Status Date Activated Date Inactivated Comments Full Code 11/27/2016 11:34 AM 07/16/2020 8:46 AM Code Status History Code Status Date Activated Date Inactivated Comments Full Code 03/12/2016 2:15 PM 03/14/2016 11:26 PM Care Teams Network Consultant Relationship Specialty Start Date End Date Brenna Malcolm, PCP - General Family Medicine 04/04/21 [facility] [address] [place] [address] Bella Sears MD General Surgery 11/28/14 Tana Peña MD Plastic Surgery 10/30/[address] [facility] [address] [place], [place] [phone] Sofiya Keenan MD MD clay thrower 01/11/[address] [place], [place] [id number] Debby Suggs LPN AURICULAR ACUPUNCTURIST Plastic Surgery 11/26/16 Aung Salinas MD MD Urology 05/04/18 [address] [place], [place] [phone] Shahzad Sen MD MD Plastic Surgery 10/08/18 [facility] [address] [place] [address] John Gresham [facility] Plastic Surgery 10/08/18 Coordinator Aung Salinas MD Assigned Surgical 12/17/20 909 [facility] [place] [address] Marce Gallardo MD Assigned PCP 01/19/22 [facility] [address] [place] [phone]
--- OUTSIDE RECORDS SUMMARY | 2022-04-12 08:16 | XMS_ITS | Encounter Summary ---
:1994 Author Organization [facility] Address [address] [place] [address]. [place] [address] Care Team Providers Name Role Phone Bella Sears MD Unavailable Tana Peña MD Unavailable Sofiya Keenan MD Unavailable Debby Suggs LPN Unavailable Unavailable Aung Salinas MD Unavailable Dana Jane RN Unavailable Shahzad Sen MD Unavailable John Gresham Unavailable Aung Salinas MD Unavailable Brenna Malcolm MD Primary Care Provider [phone] Marce Gallardo MD Unavailable Reason for Visit Reason Onset Date Comments Pre Visit Planning - Done 06/06/2021 Encounter Details Date Type Department Care Team Description 06/06/2021 PRE VISIT [facility] Aung Salinas Pre Vi sit Planning - Urology Clinic Done [place] [place], [place] 4th Floor [address] [place], [place] [phone] (Work) [phone] Social History Tobacco Use Types Packs/Day Years Used Date Smoking Tobacco: Former Cigarettes 0.3 Quit : 03/21/2021 Smokeless Tobacco: Never Alcohol Use Standard Drinks/Week Comments Yes 0 (1 standard drink = 0.6 oz pure alcoho l) rarely Sex Assigned at Date Recorded Female 03/20/2020 2:05 PM CDT documented as of this encounter Miscellaneous Notes Telephone Encounter - Akash Jarvis - 06/06/2021 6:56 AM CST Reason for visit: Follow up Relevant information: reassess readiness for IPP implant and testicular revision Records/imaging/labs/orders: in EPIC Pt called: no At Rooming: normal NEERING DRAFTER 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 documented as of this encounter Visit Diagnoses Not on filedocumented in this encounter Additional Health Concerns Assessment Noted Time PHQ-9 Depression Total Score: 0 05/10/2019 4:19 PM ENGINEERING DRAFTER documented as of this encounter Care Teams It Security Consultant Relationship Specialty Start Date End Date Brenna Malcolm, PCP - General Family Medicine 04/04/[address] [address] Bella Sears MD General Surgery 11/28/14 Tana Peña MD Plastic Surgery 10/30/[address] [place] [address] [address] [place], [place] [phone] Sofiya Keenan MD MD composition roll maker and cutter 01/11/[address] [place] [address] 300 [place], [place] [phone] Debby Suggs LPN FLORAL DESIGN TEACHER Plastic Surgery 11/26/16 Aung Salinas MD MD Urology 05/04/18 [address] [place] [address] Dana Jane, CASH Registered Nurse Urology 05/04/18 01/15/22 Shahzad Sen MD MD Plastic Surgery 10/08/18 [facility] [address] [place] [address] John Gresham [facility] Care Plastic Surgery 10/08/18 Coordinator Aung Salinas MD Assigned Surgical 12/17/20 [address] [place] [address] Marce Gallardo MD Assigned PCP 04/08/21 06/30/21 [facility] [address] [place] [address] documented as of this encounter
--- OUTSIDE RECORDS SUMMARY | 2022-04-12 08:16 | XMS_ITS | Encounter Summary ---
:1994 Author Organization [facility] Address [address] [place] [address]. [place] [address] Care Team Providers Name Role Phone Bella Sears MD Unavailable Tana Peña MD Unavailable RougonSofiya mullins MD Unavailable Debby Suggs LPN Unavailable Unavailable Aung Salinas MD Unavailable Dana Jane RN Unavailable Shahzad Sen MD Unavailable John Gresham Unavailable Aung Salinas MD Unavailable Brenna Malcolm MD Primary Care Provider [phone] Belkis Champion MD Unavailable Encounter Details Date Type Department Care Team Description 07/16/2021 Orders Only [facility] Aung Salinas, Gender dysphoria (Primary Dx); Urology Clinic Other post-procedural erectile dysfuncti on; [address] Status post implantation of testicular p rosthesis [address] [place], [place] 4th [address] [address] [place], [place] [phone] (Work) [phone] Social History Tobacco Use Types Packs/Day Years Used Date Smoking Tobacco: Former Cigarettes 0.3 Quit : 03/21/2021 Smokeless Tobacco: Never Alcohol Use Standard Drinks/Week Comments Yes 0 (1 standard drink = 0.6 oz pure alcoho l) rarely Sex Assigned at Date Recorded Female 03/20/2020 2:05 PM CDT documented as of this encounter Plan of Treatment Scheduled Procedures Name Priority Associated Diagnoses Date/Time INSERTION, PENILE PROSTHESIS, Gender dys phoria INFLATABLE 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 documented as of this encounter Visit Diagnoses Diagnosis Gender dysphoria - Primary Other post-procedural erectile dysfuncti on Status post implantation of testicular p rosthesis documented in this encounter Additional Health Concerns Assessment Noted Time PHQ-9 Depression Total Score: 0 05/10/2019 4:19 PM DRYING MACHINE TENDER documented as of this encounter Care Teams Brazing Machine Operator Relationship Specialty Start Date End Date Brenna Malcolm, PCP - General Family Medicine 04/04/21 [facility] [address] [place] [address] Bella Sears MD General Surgery 11/28/14 Tana Peña MD Plastic Surgery 10/30/[address] [place] [address] [address] [place], [place] [phone] Sofiya Keenan MD MD strategic solutions consultant 01/11/[address] [place] [address] [address] [place] [address] Debby Suggs, HVAC DESIGN MECHANICAL ENGINEER HVAC DESIGN MECHANICAL ENGINEER Plastic Surgery 11/26/16 Aung Salinas MD MD Urology 05/04/18 [address] [place], [place] [phone] Dana Jane, CASH Registered Nurse Urology 05/04/18 01/15/22 Shahzad Sen MD MD Plastic Surgery 10/08/18 [facility] [address] [place] [address] John Gresham Specialty Care Plastic Surgery 10/08/18 Coordinator Aung Salinas MD Assigned Surgical 7/4/21 909 [place] [address] Belkis Champion MD Assigned PCP 07/01/21 01/18/[address] [place] [address] documented as of this encounter
--- OUTSIDE RECORDS SUMMARY | 2022-04-12 08:16 | XMS_ITS | Encounter Summary ---
:1994 Author Organization [place] Address [address] [place] [address]. [place] [address] Care Team Providers Name Role Phone Bella Sears MD Unavailable Tana Peña MD Unavailable Sofiya Keenan MD Unavailable Debby Suggs LPN Unavailable Unavailable Aung Salinas MD Unavailable Dana Jane RN Unavailable Shahzad Sen MD Unavailable John Gresham Unavailable Beckie Cota MD Primary Care Provider Aung Salinas MD Unavailable Beckie Cota MD Unavailable Reason for Visit Reason Onset Date Comments Pre Visit Planning - Done 03/27/2021 Encounter Details Date Type Department Care Team Description 03/27/2021 PRE VISIT [facility] Aung Salinas Pre Vi sit Planning - Urology Clinic Done [address] 4th Floor [address] [place], [place] [phone] (Work) [phone] Social History Tobacco Use Types Packs/Day Years [...] Notes Telephone Encounter - Akash Jarvis - 03/27/2021 8:37 AM CDT Reason for visit: Post op follow up Relevant information: s/p stage 2 urethroplasty Records/imaging/labs/orders: in EPIC Pt called: no At Rooming: normal 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 documented as of this encounter Visit Diagnoses Not on filedocumented in this encounter Additional Health Concerns Assessment Noted Time PHQ-9 Depression Total Score: 0 05/10/2019 4:19 PM WANIGAN CLERK documented as of this encounter Care Teams Public Administration Teacher Relationship Specialty Start Date End Date Beckie Cota MD PCP - General Student in [facility] 12/13/20 04/03/[address] [facility] education/training [address] program [place], [place] [phone] Bella Sears, General Surgery 11/28/14 Tana Peña MD Plastic Surgery 10/30/[address] [place] [address] 195 [place] [address] Sofiya Keenan MD MD senior branch manager 01/11/[address] [place], [place] [phone] Debby Suggs, LEACH RUNNER LEACH RUNNER Plastic Surgery 11/26/16 Aung Salinas MD MD Urology 05/04/[address] [place] [address] Dana Jane, RN Registered Nurse Urology 05/04/18 01/15/22 Shahzad Sen MD MD Plastic Surgery 10/08/18 [facility] [address] [place] [address] John Gresham Specialty Care Plastic Surgery 10/08/18 Coordinator Aung Salinas MD Assigned Surgical 12/17/20 909 [facility] Provider [place], [place] [phone] Beckie Cota MD Assigned PCP 12/17/20 04/07/[address] [facility] [address] [place], [place] [phone] documented as of this encounter
--- OUTSIDE RECORDS SUMMARY | 2022-04-12 08:16 | XMS_ITS | Encounter Summary ---
:1994 Author Organization [place] Address [address] [place] [address]. [place] [address] Care Team Providers Name Role Phone Bella Sears MD Unavailable Tana Peña MD Unavailable Sofiya Keenan MD Unavailable Debby Suggs LPN Unavailable Unavailable Aung Salinas MD Unavailable Dana Jane RN Unavailable Shahzad Sen MD Unavailable John Gresham Unavailable Aung Salinas MD Unavailable Brenna Malcolm MD Primary Care Provider [phone] Marce Gallardo MD Unavailable Reason for Visit Reason Onset Date Comments Prior Auth - Medication 06/20/2021 testosterone cyp ionate (DEPOTESTOSTERONE) 200 MG/ML injection Encounter Details Date Type Department Care Team Description [facility] Eugenio Saez MD (testosterone cypionate [address] [place] [address] (DEPOTESTOSTERONE) [address] MEDICAL MG/ML injection) [place], [place] [address] [facility] [address] [place], [place] [phone] [address] (Wo rk) Social History Tobacco Use Types Packs/Day Years Used Date Smoking Tobacco: Former Cigarettes 0.3 Quit : 03/21/2021 Smokeless Tobacco: Never Alcohol Use Standard Drinks/Week Comments Yes 0 (1 standard drink = 0.6 oz pure alcoho l) rarely Sex Assigned at Date Recorded Female 03/20/2020 2:05 PM CDT documented as of this encounter Miscellaneous Notes Telephone Encounter - Tabatha Moran CMA - 06/20/2021 4:47 PM CST Prior Authorization Retail Medication Request Medication/Dose: testosterone cypionate (DEPOTESTOSTERONE) 200 MG/ML injection ICD code Gender dysphoria in adult [F64.0] Insurance Name: [facility] Pharmacy Information (if different than what is on RX) Name: [facility] E SYRUP MAKER 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 documented as of this encounter Visit Diagnoses Not on filedocumented in this encounter Additional Health Concerns Assessment Noted Time PHQ-9 Depression Total Score: 0 05/10/2019 4:19 PM MAPLE SYRUP MAKER documented as of this encounter Care Teams Market Research Associate Relationship Specialty Start Date End Date Brenna Malcolm, PCP - General Family Medicine 04/04/21 [facility] [address] [place] [address] Bella Sears MD General Surgery 11/28/14 Tana Peña MD Plastic Surgery 10/30/[address] [place] [address] 195 [place] [address] Sofiya Keenan MD MD compliance project manager 01/11/16 [address] [facility] [address] [place] [address] Debby Suggs LPN AUTOMOTIVE DIAGNOSTIC TECHNICIAN Plastic Surgery 11/26/16 Aung Salinas MD MD Urology 05/04/18 9[address] [place] [address] Dana Jane, CASH Registered Nurse Urology 05/04/18 01/15/22 Shahzad Sen MD MD Plastic Surgery 10/08/18 [facility] [address] [place] [address] John Gresham [facility] Care Plastic Surgery 10/08/18 Coordinator Aung Salinas MD Assigned Surgical 12/17/20 [address] [facility] Provider [place], [place] [address] Marce Gallardo MD Assigned PCP 04/08/21 06/30/21 [facility] [id number] [place] [address] documented as of this encounter
--- OUTSIDE RECORDS SUMMARY | 2022-04-12 08:16 | XMS_ITS | Clinical Summary ---
:1994 Author Organization [employer] [facility] [employer] [place] [address] Care Team Providers Name Role Phone Brenna Malcolm MD Primary Care Provider [phone] Allergies No known active allergies Medications Medication Sig Dispensed Refills Start Date End Date Status naproxen (NAPROSYN) 250 Take 1 tablet by 30 tablet 0 3 Active mg tablet mouth every 8 hours if needed. diphenhydrAMINE (UNISOM Take 1 capsule 0 03/30/2013 Active SLEEPGELS) 50 mg capsule by mouth every 6 hours if needed for Sleep. traZODone (DESYREL) 100 Take 1 tablet by 0 5 Active mg tablet mouth at bedtime. valACYclovir (VALTREX) Take 1 tablet by 0 11/22/2014 Active 500 mg tablet mouth once daily. albuterol HFA Inhale 2 Puffs 1 Inhaler 0 12/24/2014 Active (PRO-AIR,VENTOLIN,PROVEN by mouth every 4 TIL) 90 mcg/actuation hours if needed. inhalerIndications: Bronchospasm lithium carbonate 300 mg Take 300 mg by 0 Active tabletIndications: mouth 2 times bipolar disorder daily. Indications: BIPOLAR DISORDER predniSONE (DELTASONE) Take 2 tablets 8 tablet 0 09/05/2016 Active 20 mg tabletIndications: by mouth once Cough daily with a meal. ondansetron (ZOFRAN) 4 Take 1-2 tablets 8 tablet 0 12/02/2019 Active mg tabletIndications: by mouth every 8 Nausea and vomiting, hours if needed intractability of for vomiting not specified, Nausea/Vomiting. unspecified vomiting type Active Problems Not on file Social History Tobacco Use Types Packs/Day Years Used Date Current Every Day Smoker 0.3 Alcohol Use Standard Drinks/Week Comments No 0 (1 standard drink = 0.6 oz pure alcoho l) Sex Assigned at Date Recorded Not on file Obstetrics History Last Filed Vital Signs Vital Sign Reading Time Taken Comments Blood Pressure 160/78 12/02/2019 7:54 PM CDT Pulse 97 12/02/2019 7:54 PM CDT Temperature 36.7 ??C (98.1 ??F) 12/02/2019 5:52 PM CDT Respiratory Rate 18 12/02/2019 5:52 PM CDT Oxygen Saturation 96% 12/02/2019 7:54 PM CDT Inhaled Oxygen Concentration - - Weight 83.5 kg (184 lb) 12/02/2019 5:52 PM CDT Height 162.6 cm (5' 4) 12/02/2019 5:52 PM CDT Body Mass Index 31.58 12/02/2019 5:52 PM CDT Plan of Treatment Health Maintenance Due Date Last Done Comments Tdap 2005 Depression screening for age 12+ 2006 Hepatitis C screening for age 18-79 2012 Tetanus booster 2014 Pap test for age 21-65 2015 BMI (ht and wt on same day) for age 0309/04/2017 09/04/2016 18+ COVID-19 vaccine series (4 - Booster 07/31/2021 06/05/2021, 12/01/2020, for Moderna series) 10/19/2020 Influenza for age 9-49 02/14/2022 Results Not on filefrom Last 3 Months Insurance Payer Benefit Plan / Subscriber ID Effective Dates Phone Addre ss Type Group [facility] [id number] 2021-Present [phone] [facility] [place] [phone] (Home) [place] [id number] Care Teams Guest Relations Receptionist Relationship Specialty Start Date End Date Brenna Malcolm MD PCP - General Family Practice 08/13/211999 [place] [address]
--- OUTSIDE RECORDS SUMMARY | 2022-04-12 08:16 | XMS_ITS | Encounter Summary ---
:1994 Author Organization [facility] Address [address] [place] [address] Care Team Providers Name Role Phone Unavailable Primary Care Provider Unavailable Encounter Details Date Type Department Care Team Description 09/08/2009 - Hospital Encounter HX RST GENEROSE 1 WEST 09/13/2009 Social History Tobacco Use Types Packs/Day Years [...] 03/20/2022 relatives? How often do you attend sikhism or baptism services? Never 03/20/2022 Do you belong to any clubs or organizations such as No 03/20/2022 sikhism groups, unions, fraternal or athletic groups, or [...] Telemedicine Endocrinology Arely Bond M.B., B.Ch. [address] [place] [address] [phone] (Wo rk) documented as of this encounter Visit Diagnoses Not on filedocumented in this encounter Additional Health Concerns Assessment Noted Time PHQ-9 Depression Total Score: 17 09/08/2009 10:03 PM C DT documented as of this encounter
--- OUTSIDE RECORDS SUMMARY | 2022-04-12 08:16 | XMS_ITS | Encounter Summary ---
:1994 Author Organization [facility] Address [address] [place] [address]. [place] [address] Care Team Providers Name Role Phone Bella Sears MD Unavailable Tana Peña MD Unavailable Sofiya Keenan MD Unavailable Debby Suggs LPN Unavailable Unavailable Aung Salinas MD Unavailable Dana Jane RN Unavailable Shahzad Sen MD Unavailable John Gresham Unavailable Aung Salinas MD Unavailable Brenna Malcolm MD Primary Care Provider [phone] Marce Gallardo MD Unavailable Belkis Champion MD Unavailable Reason for Visit Reason Onset Date Comments Refill Request 06/19/2021 testosterone cypiona te (DEPOTESTOSTERONE) 200 MG/ML injection Refill Request 06/27/2021 Encounter Details Date Type Department Care Team Description 06/19/2021 Telephone [facility] Brenda Bianchi, Refill Request Clinic Eugen[facility] MACE (testosterone cypionate [address] (DEPOTESTOSTERONE) 200 [address]ORIS 101 MG/ML injection); Refill [place], [place] Request [id number] Social History Tobacco Use Types Packs/Day Years Used Date Smoking Tobacco: Former Cigarettes 0.3 Quit : 03/21/2021 Smokeless Tobacco: Never Alcohol Use Standard Drinks/Week Comments Yes 0 (1 standard drink = 0.6 oz pure alcoho l) rarely Sex Assigned at Date Recorded Female 03/20/2020 2:05 PM CDT documented as of this encounter Miscellaneous Notes Telephone Encounter - Jessie Duffy RN - 06/27/2021 1:10 PM CST Routing to Prior Auth team- [facility] PA was created and sent on 06/20/21 but no update since that time (see separate encounter). Jessie Duffy RN ARCH MECHANIC Telephone Encounter - Ynes Carlos - 06/27/2021 12:48 PM CST Patient called to follow up on medication request. Patient states MD needs to send pharmacy pre authorization. Patient states they has been waiting a long time for pre auth. ARCH MECHANIC Telephone Encounter - Tabatha Moran CMA - 06/20/2021 4:49 PM CST Prior Authorization sent to team. Tabatha Moran CMA, ARCH MECHANIC Telephone Encounter - Pauline Holliday RN - 06/19/2021 4:32 PM CST RN spoke with pharmacy who state they've received the refill request but testosterone needs PA. RN routing to PA pool to review. Pauline Holliday RN ARCH MECHANIC Telephone Encounter - Dianna Dang - 06/19/2021 9:51 AM CST Request for medication refill: testosterone cypionate (DEPOTESTOSTERONE) 200 MG/ML injection Providers if patient needs an appointment and you are willing to give a one month supply please refill for one month and send a letter/MyChart using .SMILLIMITEDREFILL .smillimited and route chart toP [facility] SERVICES EXECUTIVE (Giving one month refill in non controlled medications is strongly recommended before denial) If refill has been denied, meaning absolutely no refills without visit, please complete the smart phrase .smirxrefuse and route it to the [facility] MED REFILLS pool to inform the patient and the pharmacy. 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 documented as of this encounter Visit Diagnoses Diagnosis Gender dysphoria in adult documented in this encounter Additional Health Concerns Assessment Noted Time PHQ-9 Depression Total Score: 0 05/10/2019 4:19 PM RESEARCH MECHANIC documented as of this encounter Care Teams Sail Lay Out Worker Relationship Specialty Start Date End Date Brenna Malcolm, PCP - General Family Medicine 04/04/21 [facility] [address] [place] [address] Bella Sears MD General Surgery 11/28/14 Tana Peña MD Plastic Surgery 10/30/[address] [place] [address] 195 [place], [place] [phone] Sofiya Keenan MD MD oil field pumper 01/11/[address] [place] [address] 300 [place] [address] Debby Suggs LPN GARMENT ALTERATION EXAMINER Plastic Surgery 11/26/16 Aung Salinas MD MD Urology 05/04/18 909 [place] [address] Dana Jane, CASH Registered Nurse Urology 05/04/18 01/15/22 Shahzad Sen MD MD Plastic Surgery 10/08/18 [facility] [address] [place] [address] John Gresham [facility] Care Plastic Surgery 10/08/18 Coordinator Aung Salinas MD Assigned Surgical 12/17/20 909 [place], [place] [address] Marce Gallardo MD Assigned PCP 04/08/21 06/30/21 [facility] [address] [place] [address] Belkis Champion MD Assigned PCP 07/01/21 01/18/22 [address] [place], [place] [id number] documented as of this encounter
--- OUTSIDE RECORDS SUMMARY | 2022-04-12 08:16 | XMS_ITS | Encounter Summary ---
:1994 Author Organization [facility] Address [address] [place] [address]. [place] [address] Care Team Providers Name Role Phone Bella Sears MD Unavailable Tana Peña MD Unavailable Sofiya Keenan MD Unavailable Debby Suggs LPN Unavailable Unavailable Aung Salinas MD Unavailable Dana Jane RN Unavailable Shahzad Sen MD Unavailable John Gresham Unavailable Aung Salinas MD Unavailable Beckie Cota MD Unavailable Brenna Malcolm MD Primary Care Provider Encounter Details Date Type Department Care Team Description 04/07/2021 Telephone [facility] Urology Anthony Dye MD Clinic [address] [place] [address] [phone] Social History Tobacco Use Types Packs/Day Years [...] Depression Total Score: 0 05/10/2019 4:19 PM MAGAZINE EDITOR documented as of this encounter Care Teams Gift Shop Clerk Relationship Specialty Start Date End Date Brenna Malcolm, PCP - General Family Medicine 04/04/21 [facility] [address] [place] [address] Bella Sears MD General Surgery 11/28/14 Tana Peña MD Plastic Surgery 10/30/[address] [place] [address] 195 [place] [address] Sofiya Keenan MD MD plate inspector 01/11/[address] [place] [address] 300 [place] [address] Debby Suggs, PAI GOW DEALER PAI GOW DEALER Plastic Surgery 11/26/16 Aung Salinas MD MD Urology 05/04/18 [address] [place], [place] [id number] Dana Jane, CASH Registered Nurse Urology 05/04/18 01/15/22 Shahzad Sen MD MD Plastic Surgery 10/08/18 [facility] [address] [place] [address] John Gresham [facility] Plastic Surgery 10/08/18 Coordinator Aung Salinas MD Assigned Surgical 12/17/[address] [place] [address] Beckie Cota MD Assigned PCP 12/17/20 04/07/21 [facility] Residency Program [address] [place] [address] documented as of this encounter
--- OUTSIDE RECORDS SUMMARY | 2022-04-12 08:16 | XMS_ITS | Encounter Summary ---
:1994 Author Organization [facility] Address [address] [place] [address]. [place] [address] Care Team Providers Name Role Phone Bella Sears MD Unavailable Tana Peña MD Unavailable Sofiya Keenan MD Unavailable Debby Suggs LPN Unavailable Unavailable Aung Salinas MD Unavailable Dana Jane RN Unavailable Shahzad Sen MD Unavailable John Gresham Unavailable Aung Salinas MD Unavailable Brenna Malcolm MD Primary Care Provider [phone] Belkis Champion MD Unavailable Reason for Visit Reason Onset Date Comments Orders 11/01/2021 Encounter Details Date Type Department Care Team Description 11/01/2021 [facility] Brenna Malcolm Orders [place] [address] [place], [place] [phone] 1999 [facility] [phone] [place] [phone] (Wo rk) Social History Tobacco Use Types Packs/Day Years Used Date Smoking Tobacco: Former Cigarettes 0.3 Quit : 03/21/2021 Smokeless Tobacco: Never Alcohol Use Standard Drinks/Week Comments Yes 0 (1 standard drink = 0.6 oz pure alcoho l) rarely Sex Assigned at Date Recorded Female 03/20/2020 2:05 PM CDT documented as of this encounter Miscellaneous Notes Telephone Encounter - Gabriela Armenta RN - 11/01/2021 11:37 AM CDT Patient calling and wanting orders for labs faxed to another location that is closer to him. Discussed below. Discussed patient would need to follow-up with ordering provider. CASH Scott Madeline, RN MR ?? 08/16/21 3:42 PM Note RN called pt back and asked if he wanted all labs pending from 06/18 faxed to [facility]. Pt stated yes. RN asked for fax number and pt stated they can be faxed to [phone]. Fax successful ?? Kerry Martin RN ?? 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 documented as of this encounter Visit Diagnoses Not on filedocumented in this encounter Additional Health Concerns Assessment Noted Time PHQ-9 Depression Total Score: 0 05/10/2019 4:19 PM OXYACETYLENE BURNER documented as of this encounter Care Teams Education Department Chair Relationship Specialty Start Date End Date Brenna Malcolm, PCP - General Family Medicine 04/04/21 [facility] [address] [place] [address] Bella Sears MD General Surgery 11/28/14 Tana Peña MD Plastic Surgery 10/30/15 [facility] 195 [place] [address] Sofiya Keenan MD MD white metal corrosion proofer 01/11/16 [address] [facility] [address] [place] [address] Debby Suggs, CRUSHER ASSEMBLER CRUSHER ASSEMBLER Plastic Surgery 11/26/16 Aung Salinas MD MD Urology 05/04/[address] [place] [id number] Dana Jane, RN Registered Nurse Urology 05/04/18 01/15/22 Shahzad Sen MD MD Plastic Surgery 10/08/18 [facility] [address] [place] [address] John Gresham [facility] Care Plastic Surgery 10/08/18 Coordinator Aung Salinas MD Assigned Surgical 12/17/[address] [place] [id number] Belkis Champion MD Assigned PCP 07/01/21 01/18/[address] [place], [place] [phone] documented as of this encounter
--- OUTSIDE RECORDS SUMMARY | 2022-04-12 08:16 | XMS_ITS | Encounter Summary ---
:1994 Author Organization [facility] Address [address] [place] [address] Care Team Providers Name Role Phone Bella Sears MD Unavailable Tana Peña MD Unavailable Sofiya Keenan MD Unavailable Debby Suggs LPN Unavailable Unavailable Aung Salinas MD Unavailable Dana Jane RN Unavailable Shahzad Sen MD Unavailable John Gresham Unavailable Beckie Cota MD Primary Care Provider Aung Salinas MD Unavailable Beckie Cota MD Unavailable Encounter Details Date Type Department Care Team Description 03/19/2021 Travel Social History Tobacco Use Types Packs/Day [...] Depression Total Score: 0 05/10/2019 4:19 PM 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 documented as of this encounter Care Teams Tool Filer Hand Relationship Specialty Start Date End Date Beckie Cota MD PCP - General Student in organized 12/13/20 04/03/21 [facility] Residency health care Program education/training [address] program [place], [place] [phone] Bella Sears, General Surgery 11/28/14 Tana Peña MD Plastic Surgery 10/30/[address] [place] [address] 195 [place] [address] Sofiya Keenan MD MD ceramic coater 01/11/[address] [place] [address] Debby Suggs, PHARMACY CONSULTANT PHARMACY CONSULTANT Plastic Surgery 11/26/16 Aung Salinas MD MD Urology 05/04/[address] [place] [phone] Dana Jane, CASH Registered Nurse Urology 05/04/18 01/15/22 Shahzad Sen MD MD Plastic Surgery 10/08/18 [facility] [address] [place] [address] John Gresham [facility] Plastic Surgery 10/08/18 Coordinator Aung Salinas MD Assigned Surgical 12/17/20 909 [facility] Provider [place], [place] [phone] Beckie Cota MD Assigned PCP 12/17/20 04/07/21 [facility] Residency Program [address] [place] [address] documented as of this encounter
--- OUTSIDE RECORDS SUMMARY | 2022-04-12 08:17 | XMS_ITS | Encounter Summary ---
:1994 Author Organization [facility] Address [address] [place] [address]. [place] [address] Care Team Providers Name Role Phone Bella Sears MD Unavailable Tana Peña MD Unavailable Sofiya Keenan MD Unavailable Debby Suggs LPN Unavailable Unavailable Aung Salinas MD Unavailable Dana Jane RN Unavailable Shahzad Sen MD Unavailable John Gresham Unavailable Marce Gallardo MD Primary Care Provider Marce Gallardo MD Unavailable Reason for Visit Reason Onset Date Comments Refill Request 05/31/2020 Atorvastatin Calcium 40 mg Encounter Details Date Type Department Care Team Description 05/31/2020 Refill [facility] Marce Gallardo MD Refill Request Clinic [facility] (Atorvastatin Calcium [address] [place] [address] CLINIC mg) [address] [address] [place] [phone] (Wo rk) Social History Tobacco Use Types Packs/Day Years Used Date Smoking Tobacco: Former Cigarettes 0.3 Quit : 09/14/2016 Smokeless Tobacco: Never Alcohol Use Standard Drinks/Week Comments Yes 0 (1 standard drink = 0.6 oz pure alcoho l) rarely Sex Assigned at Date Recorded Female 03/20/2020 2:05 PM CDT documented as of this encounter Miscellaneous Notes Telephone Encounter - Cristy Ace, KENROY - 05/31/2020 2:54 PM CST Request for medication refill: Providers if patient needs an appointment and you are willing to give a one month supply please refill for one month and send a letter/MyChart using .SMILLIMITEDREFILL .smillimited and route chart toP [facility] SKY CAP (Giving one month refill in non controlled medications is strongly recommended before denial) If refill has been denied, meaning absolutely no refills without visit, please complete the smart phrase .smirxrefuse and route it to the [facility] MED REFILLS pool to inform the patient and the pharmacy. 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 documented as of this encounter Visit Diagnoses Diagnosis Hypercholesteremia Pure hypercholesterolemia documented in this encounter Additional Health Concerns Assessment Noted Time PHQ-9 Depression Total Score: 0 05/10/2019 4:19 PM TAXATION CONSULTANT documented as of this encounter Care Teams Belt Sander Stone Relationship Specialty Start Date End Date Marce Gallardo MD PCP - General Student in [facility] 05/17/19 07/15/[address] [address] education/training program Bella Sears, General Surgery 11/28/14 Tana Peña MD Plastic Surgery 10/30/[address] [facility] [address] [place] [address] Sofiya Keenan MD MD smooth and burr worker composites 01/11/[address] [place] [address] Debby Suggs LPN TRAFFIC SURVEY TECHNICIAN Plastic Surgery 11/26/16 Aung Salinas MD MD Urology 05/04/18 909 [place] [address] Dana Jane, RN Registered Nurse Urology 05/04/18 01/15/22 Shahzad Sen MD MD Plastic Surgery 10/08/18 [facility] [address] [place] [address] John Gresham Specialty Care Plastic Surgery 10/08/18 Coordinator Marce Gallardo MD Assigned PCP 11/04/19 07/29/20 [facility] [address] [place] [address] documented as of this encounter
--- OUTSIDE RECORDS SUMMARY | 2022-04-12 08:17 | XMS_ITS | Encounter Summary ---
:1994 Author Organization [facility] Address [address] [place] [address] Care Team Providers Name Role Phone Bella Sears MD Unavailable Tana Peña MD Unavailable Sofiya Keenan MD Unavailable Debby Suggs LPN Unavailable Unavailable Aung Salinas MD Unavailable Dana Jane RN Unavailable Shahzad Sen MD Unavailable John Gresham Unavailable Marce Gallardo MD Primary Care Provider Marce Gallardo MD Unavailable Bella Sears MD Primary Care Provider [phone] Marce Gallardo MD Primary Care Provider Marce Gallardo MD Unavailable Darcy Jackson DO Unavailable Marce Gallardo MD Unavailable Beckie Cota MD Primary Care Provider Aung Salinas MD Unavailable Beckie Cota MD Unavailable Brenna Malcolm MD Primary Care Provider [phone] Marce Gallardo MD Unavailable Belkis Champion MD Unavailable Marce Gallardo MD Unavailable Reason for Visit Reason Onset Date Comments Refill Request 05/16/2020 Encounter Details Date Type Department Care Team Description 05/16/2020 Telephone [facility] Marce Gallardo MD Refill Request [place] [address] [place] [address] [address] [address] [address] [place], [place] [phone] [place], [place] [phone] (Wo rk) Social History Tobacco Use Types [...] been in contact with No / Unsure 04/19/2020 10:42 AM SCOWMAN someone who was confirmed or 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 documented as of this encounter Miscellaneous Notes Telephone Encounter - Luigi Dunn - 05/16/2020 12:59 PM CST Verify that the refill encounter hasn't been started Yes P Family Medicine phone call message- patient requesting a refill: Full Medication Name:testosterone Dose: Pharmacy confirmed as [id number] - [place], [place] - [address] [facility] [address] [facility] - [place], [place] - [address] [address] : Yes Medication tab checked to see if medication has been sent Yes Additional Comments: pt request Rx refill out of med's would you please send [facility] pharmacy ifpossiple OK to leave a message on voice mail? Yes Advised patient refill may take up to 2 business days? Yes Primary language: Cymro Suction Operator needed? 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 documented as of this encounter Visit Diagnoses Not on filedocumented in this encounter Additional Health Concerns Assessment Noted Time PHQ-9 Depression Total Score: 0 05/10/2019 4:19 PM SCOWMAN documented as of this encounter Care Teams Watch Electrician Relationship Specialty Start Date End Date Marce Gallardo MD PCP - General Student in organized 05/17/19 07/15/[address]2019 [address] [address] education/training program Bella Sears, PCP - General 07/16/[address] [address] Marce Gallardo MD PCP - General Family Medicine 07/24/20 12/12/202019 [address] [place] [address] Beckie Cota MD PCP - General Student in organized 12/13/20 04/03/21 [facility] health care Program education/training [address] [place] [address] Brenna Malcolm, PCP - General Family Medicine 04/04/[address] [address] Bella Sears, General Surgery 11/28/14 Tana Peña MD Plastic Surgery 10/30/[address] [facility] [address] [place], [place] [phone] Sofiya Keenan MD MD engineering document control clerk 01/11/[address] [place], [place] [phone] Debby Suggs, ERENDIRA ARCHEOLOGIST CLASSICAL Plastic Surgery 11/26/16 Aung Salinas MD MD Urology 05/04/18 [address]09 [place], [place] [phone] Dana Jane, CASH Registered Nurse Urology 05/04/18 01/15/22 Shahzad Sen MD MD Plastic Surgery 10/08/18 [facility] [address] [place] [address] John Gresham [facility] Care Plastic Surgery 10/08/18 Coordinator Marce Gallardo MD Assigned PCP 07/30/20 11/08/20 [facility] [address] [place] [address] Marce Gallardo MD Assigned PCP 11/04/19 07/29/20 [facility] [address] [place] [address] Darcy Jackson DO Assigned PCP 11/09/20 11/18/[address] [place], [place] [phone] Marce Gallardo MD Assigned PCP 11/19/20 12/16/20 [facility] [address] [place] [address] Aung Salinas MD Assigned Surgical 12/17/[address] [place] [address] Beckie Cota MD Assigned PCP 12/17/20 04/07/[address] [facility] Residency Program [address] [place], [place] [phone] Marce Gallardo MD Assigned PCP 04/08/21 06/30/21 [facility] [address] [place] [address] Belkis Champion MD Assigned PCP 07/01/21 01/18/[address] [place], [place] [id number] Marce Gallardo MD Assigned PCP 01/19/22 [facility] [address] [place] [phone] documented as of this encounter
--- OUTSIDE RECORDS SUMMARY | 2022-04-12 08:17 | XMS_ITS | Encounter Summary ---
:1995 Author Organization [facility] Address [address] [place] [address]. [place] [address] Care Team Providers Name Role Phone Bella Sears MD Unavailable Tana Peña MD Unavailable Sofiya Keenan MD Unavailable Debby Suggs LPN Unavailable Unavailable Aung Salinas MD Unavailable Dana Jane RN Unavailable Shahzad Sen MD Unavailable John Gresham Unavailable Beckie Cota MD Primary Care Provider Aung Salinas MD Unavailable Beckie Cota MD Unavailable Encounter Details Date Type Department Care Team Description 03/15/2021 Orders Only [facility] Aung Salinas E ncounter for OR Alex MACE screening for other [address] [place] [address] viral diseases 5th Floor [place], [place] (Primary Dx) [place] [phone] Social History Tobacco Use Types Packs/Day Years Used Date Smoking Tobacco: Every Day Cigarettes 0.3 L ast attempted to quit: 09/14/2016 Smokeless Tobacco: Never Comments: e cig Alcohol Use Standard Drinks/Week Comments Yes 0 (1 standard drink = 0.6 oz pure alcoho l) rarely Sex Assigned at Date Recorded Female 03/20/2020 2:05 PM CDT documented as of this encounter Plan of Treatment Scheduled Orders Name Type Priority Associated Diagnoses Order S chedule Asymptomatic COVID-19 Lab Routine Encounter for austin metzger Expected: 03/15/2021 Virus (Coronavirus) by PCR for other adry l diseases (Approximate), Expires: 2021 Scheduled Procedures Name Priority Associated Diagnoses Date/Time INSERTION, PENILE PROSTHESIS, Gender dys phoria INFLATABLE 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 documented as of this encounter Visit Diagnoses Diagnosis Encounter for screening for other viral diseases - Primary documented in this encounter Additional Health Concerns Assessment Noted Time PHQ-9 Depression Total Score: 0 05/10/2019 4:19 PM EMAIL ADMINISTRATOR documented as of this encounter Care Teams City Jailer Relationship Specialty Start Date End Date Beckie Cota MD PCP - General Student in organized 12/13/20 04/03/21 [facility] Residency health care Program education/training [address] program [place], [place] [phone] Bella Sears, General Surgery 11/28/14 Tana Peña MD Plastic Surgery 10/30/[address] [place] [address] [address] [place], [place] [phone] Sofiya Keenan MD MD ip technology transactions attorney 01/11/[address] [place], [place] [phone] Debby Suggs, TERMITE INSPECTOR TERMITE INSPECTOR Plastic Surgery 11/26/16 Aung Salinas MD MD Urology 05/04/18 [address] [place], [place] [phone] Dana Jane, CASH Registered Nurse Urology 05/04/18 01/15/22 Shahzad Sen MD MD Plastic Surgery 10/08/18 [facility] [address] [place] [address] John G[facility]ty [facility] Plastic Surgery 10/08/18 Coordinator Aung Salinas MD Assigned Surgical 12/17/20 909 [facility] [address] Beckie Cota MD Assigned PCP 12/17/20 04/07/21 [facility] Residency Program [address] [place], [place] [phone] documented as of this encounter
--- OUTSIDE RECORDS SUMMARY | 2022-04-12 08:17 | XMS_ITS | Encounter Summary ---
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 Gender dysphoria in adult Marce Gallardo MD [address] [place], [place] [address] Referral ID Status Reason Start Date Expiration Date Visits Requ ested Visits Authorized [id number] Closed 11/10/2020 11/10/2021 1 1 [facility] Outpatient (Routine) - Closed Specialty Diagnoses / Procedures Referred By Contact Refer red To Contact Diagnoses Inattention Marce Gallardo MD [address] [place], [place] [address] Referral ID Status Reason Start Date Expiration Date Visits Requ ested Visits Authorized [id number] Closed 11/10/2020 11/10/2021 1 1 Reason for Visit Reason Comments RECHECK Surgical site is irritated Forms Letter for court documents Encounter Details Date Type Department Care Team Description 11/10/[address] [facility] Marce Gallardo, Terraope ratilicha male pelvic peritoneal adhesions (Primary Dx); [facility] Gender dysphoria in adult; 2019 [facility] Inattention [address] [place], [place] CLINIC [phone] [phone] [place] [address] Social History Tobacco Use Types Packs/Day Years [...] been in contact with No / Unsure 11/10/2020 10:28 AM CDT someone who was confirmed or 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 Now with pain and stricturing/adhesions near the urethral opening. No lesions. Tight palpable cord below the skin, ttp. - COMPREHENSIVE GENDER CARE REFERRAL - for pelvic PT Gender dysphoria in adult On yearly visits, medication mix-up at pharmacy, will place 6 month refill. - testosterone cypionate (DEPOTESTOSTERONE) 200 MG/ML injection; Inject 0.3 mLs (60 mg) into the muscle once a week Supply accounts for single-use vials - syringe, disposable, 1 ML MISC; Use once weekly to draw up hormones - Needle, Disp, 27G X 5/8 MISC; Use once weekly for administering hormone IM - needle, disp, 18G X 1 MISC; Use to draw up hormones once weekly - follow-up in 6 months Inattention ADHD evaluation referral - BEHAVIORAL HEALTH REFERRAL ([facility] and external) Marce Gallardo MD [facility] EUGENIO Shah is a 25 year old who presents for the following health issues Patient presents with: RECHECK: Surgical site is irritated Forms: Letter for court documents HPI Area near urethra has been painful x2 weeks. No lesions, no discharge, surgery 2018. Never had this before. Needs T refilled, mix-up at pharmacy, no dose change needed. Struggling with inattention, thinks this is since childhood. Hasnt heard back from psych about this. Requesting letter stating we are treating for gender dysphoria. Review of Systems Constitutional, HEENT, cardiovascular, pulmonary, gi and gu systems are negative, except as otherwise noted. Objective BP 118/84 Pulse 90 Temp 98.5 ??F (36.9 ??C) (Oral) Wt 75.8 kg (167 lb) SpO2 98% BMI 27.79 kg/m?? Body mass index is 27.79 kg/m??. Physical Exam Vitals signs and nursing note reviewed. Constitutional: General: He is not in acute distress. Appearance: He is well-developed. HENT: Head: Normocephalic and atraumatic. Neck: Musculoskeletal: Normal range of motion. Pulmonary: Effort: Pulmonary effort is normal. No respiratory distress. Genitourinary: Comments: phallo and testicular implants. Small opening for urethra posterior to phallo, no discharge, no lesions. Tight palpable cord on patient's right, ttp. Musculoskeletal: Normal range of motion. Skin: General: Skin is warm and dry. Neurological: Mental Status: He is alert and oriented to person, place, and time. Psychiatric: Mood and Affect: Mood normal. Darcy Jackson DO - 11/10/2020 11:00 AM CDT Preceptor Attestation: Patient seen, evaluated and discussed with the resident. I have verified the content of the note, which accurately reflects my assessment of the patient and the plan of care. Supervising Physician: Darcy Jackson DO 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 Scheduled Referrals Name Type Priority Associated Diagnoses Order S chedule BEHAVIORAL HEALTH Referral Routine Inattention Ordered: 0 11/10/2020 REFERRAL ([facility] and external) COMPREHENSIVE GENDER Referral Routine Postoperative male O rdered: 11/10/2020 CARE REFERRAL - INTERNAL pelvic peritonea l adhesions Gender dysphoria in adult documented as of this encounter Visit Diagnoses Diagnosis Postoperative male pelvic peritoneal adh esions - Primary Gender dysphoria in adult Inattention Other specified conditions influencing h ealth status documented in this encounter Additional Health Concerns Assessment Noted Time PHQ-9 Depression Total Score: 0 05/10/2019 4:19 PM 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 documented as of this encounter Care Teams Pipe Or Steam Fitter Furnace Installer Relationship Specialty Start Date End Date Marce Gallardo MD PCP - General Family Medicine 07/24/20 12/12/202019 [address] [place] [address] Blela Sears MD General Surgery 11/28/14 Tana Peña MD Plastic Surgery 10/30/[address] [place] [address] [facility] [address] [place] [address] Sofiya Keenan MD MD medical dosimetrist 01/11/[address] [place] [address] Debby Suggs, PSYCHOLOGIST SOCIAL PSYCHOLOGIST SOCIAL Plastic Surgery 11/26/16 Aung Salinas MD MD Urology 05/04/18 [address] [place] [address] Dana Jane, CASH Registered Nurse Urology 05/04/18 01/15/22 Shahzad Sen MD MD Plastic Surgery 10/08/18 [facility] [address] [place] [address] John Gresham Specialty Care Plastic Surgery 10/08/18 Coordinator Darcy Jackson, DO Assigned PCP 11/09/20 11/18/[address] [place], [place] [phone] documented as of this encounter
--- OUTSIDE RECORDS SUMMARY | 2022-04-12 08:17 | XMS_ITS | Encounter Summary ---
:1995 Author Organization [facility] Address [address] [place] [address]. [place] [address] Care Team Providers Name Role Phone Bella [...] RECONSTRUC PROS URETHRA,2ND STAGE URETHROPLASTY, STAGE 2 [address] [facility] [address] [place] [address] Phone: Fax: Referral ID Status Reason Start Date Expiration Date Visits Requ ested Visits Authorized [id number] 1 1 Encounter Details Date Type Department Care Team Description 03/19/2021 Anesthesia Event [facility] Miguelito Motley, DO [address] [facility] [address] [place] [address] OR Sarabjit Cast MD [address] [facility] [address] [place] [address] [place] [address] [address] [place] [address] Anesthesia Record Procedure Summary Procedure Name Responsible Anesthesia Start Anesthesia Stop Time Anesthesiologist Time URETHROPLASTY, Isela Sanjay Munoz, 03/19/21 1433 03/19/21 1555 STAGE 2 (Penis) Events Date Time Event Comment 03/19/2021 1427 PIECE MARKER SMALL ARMS Ready for Procedure 1433 An Start 1437 An Start Data 1440 An Induction 1443 An LMA 1456 AN INCISION 1548 LMA Removed 1550 an stop data 1555 An Stop Electronically s igned by Terra Whittington APRN PIECE MARKER SMALL ARMS on Mar 3:56 PM Name Total midazolam 1 mg/mL 2 mg fentaNYL 50 mcg/mL 100 mcg lidocaine 2% 100 mg propofol 10 mg/mL 190 mg propofol infusion (mcg/kg/min) 537.46 mg dexamethasone 4 mg/mL 4 mg ondansetron 2 mg/mL 4 mg ceFAZolin (ANCEF) intermittent infusion 2 g in 50 mL d extrose PREMIX 2 g lactated ringers infusion 750 mL lactated ringers infusion 0 mL Agents Name NO HELIOX O2 N2O Air Exp Sevoflurane Exp Isoflurane Exp Desflurane Exp N2O Ins Sevoflurane Ins Isoflurane Ins Desflurane O2 Auxiliary Blood No blood administrations on file. Lines, Drains, and Airways Type Details Placement Removal Incision/Surgical Site 03/12/16; 0959; Abdomen; 03/12/16 0959 by Lorrie May RN Incision/Surgical Site 11/27/16; 0840; 11/27/16 0840 by Bilateral; Chest Fanny Banuelos RN Incision/Surgical Site 03/19/21; 1536; Penis; 03/19/21 1536 by Sutures, Cleo Olivier RN Peripheral IV 03/19/21; 1254; 22 G; 03/19/21 1254 by 03/19/21 1632 by Left; Lower forearm; Shari Kam McColli ster, Chlorhexidine RN Mary, RN Supraglottic Airway Placement Date: 03/19/21 1443 by 03/19/21 15 48 by 03/19/21; Placement Terra Whittington Benson, Che ryll, Time: 1443; Airway Type: RECRUITING OPERATIONS CONSULTANT PIECE MARKER SMALL ARMS RECRUITING OPERATIONS CONSULTANT CR NA Standard LMA; Mask Ventilation: 1; LMA Size: 5; Airway Brand: LMA Unique; Attempts: 1 documented in this encounter Social History Tobacco [...] / COVID-19? documented as of this encounter OR Notes Anesthesia Postprocedure Evaluation - Sanjay Weiss DO - 03/19/2021 4:09 PM CDT Patient: Pablo Chakraborty Procedure: Procedure(s): URETHROPLASTY, STAGE 2 Diagnosis:Postprocedural male urethral stricture [N99.114] Diagnosis Additional Information: No value filed. Anesthesia Type: General Note: Disposition: Outpatient Postop Pain Control: Uneventful Sign Out: Well controlled pain PONV: No Neuro/Psych: Uneventful Sign Out: Acceptable/Baseline neuro status Airway/Respiratory: Uneventful Sign Out: Acceptable/Baseline resp. status CV/Hemodynamics: Uneventful Sign Out: Acceptable CV status; No obvious hypovolemia; No obvious fluid overload Other NRE: NONE DID A NON-ROUTINE EVENT OCCUR? No Last vitals: Vitals Value Taken Time BP 110/77 03/19/21 1600 Temp 36.3 ??C (97.3 ??F) 03/19/21 1553 Pulse 72 03/19/21 1607 Resp 13 03/19/21 1607 SpO2 100 % 03/19/21 1607 Vitals shown include unvalidated device data. Electronically Signed By: aSnjay Weiss DO March 19, 2021 4:09 PM Anesthesia Preprocedure Evaluation - Sanjay Weiss DO - 03/19/2021 12:04 PM CDT Anesthesia Pre-Procedure Evaluation Patient: Pablo Chakraborty : 1995 Preoperative Diagnosis: Postprocedural male urethral stricture [N99.114] Procedure : Procedure(s): URETHROPLASTY, STAGE 2 Past Medical History: Diagnosis Date ??? Allergic rhinitis ??? Asperger syndrome ??? Chronic migraine ??? Concussion ??? [id number] transgender person ??? Herpes genitalia ??? Sleep disorder ??? Uncomplicated asthma Past Surgical History: Procedure Laterality Date ??? COLONOSCOPY ??? gender confirmation bottom surgery gender confirmation surgery with creation of neophallus and neoscrotum in [place]. c/b urethra reconstruction and take-down ??? HYSTERECTOMY TOTAL ABDOMINAL, BILATERAL SALPINGO-OOPHORECTOMY, COMBINED Bilateral 03/12/2016 Procedure: COMBINED HYSTERECTOMY TOTAL ABDOMINAL, SALPINGO-OOPHORECTOMY; Surgeon: Sofiya Keenan MD; Location: [facility] OR ??? TRANSGENDER MASTECTOMY Bilateral 11/27/2016 Procedure: TRANSGENDER MASTECTOMY; Bilateral Subcutaneous Mastectomies, Nipple Grafts OnQ; Surgeon:Tana Peña MD; Location: [facility] OR ??? wisdom teeth removed No Known Allergies Social History Tobacco Use ??? Smoking status: Current Every Day Smoker Packs/day: 0.25 Types: Cigarettes Last attempt to quit: 09/14/2016 Years since quittin.5 ??? Smokeless tobacco: Never Used ??? Tobacco comment: e cig Substance Use Topics ??? Alcohol use: Yes Comment: rarely Wt Readings from Last 1 Encounters: 03/19/21 76.5 kg (168 lb 11.2 oz) Anesthesia Evaluation Pt has had prior anesthetic. ROS/MED HX ENT/Pulmonary: (+) tobacco use, Current use, Neurologic: (+) migraines, Cardiovascular: - neg cardiovascular ROS METS/Exercise Tolerance: >4 METS Hematologic: - neg hematologic ROS Musculoskeletal: - neg musculoskeletal ROS GI/Hepatic: (+) liver disease (hepatic steatosis ), Renal/Genitourinary: Comment: Hx of gender dysphoria, s/p mastectomy and SHADY/BSO Endo: - neg endo ROS Psychiatric/Substance Use: (+) psychiatric history bipolar and other (comment) (autism) Infectious Disease: Comment: HSV Malignancy: - neg malignancy ROS Other: Physical Exam Airway Mallampati: III TM distance: > 3 FB Neck ROM: full Mouth opening: > 3 cm Respiratory Devices and Support Dental no notable dental history Cardiovascular cardiovascular exam normal Pulmonary pulmonary exam normal OUTSIDE LABS: CBC: Lab Results Component Value Date WBC 8.9 07/16/2020 WBC 8.0 03/12/2016 HGB 16.6 07/16/2020 HGB 16.7 03/20/2020 HCT 48.9 07/16/2020 HCT 54.5 (H) 03/20/2020 PLT 297 07/16/2020 PLT 246 11/27/2016 BMP: Lab Results Component Value Date NA 138 07/16/2020 NA 139.7 01/10/2017 POTASSIUM 3.3 (L) 07/16/2020 POTASSIUM 3.9 01/10/2017 CHLORIDE 104 07/16/2020 CHLORIDE 106.2 01/10/2017 CO2 28 07/16/2020 CO2 24.3 01/10/2017 BUN 15 07/16/2020 BUN 9.3 01/10/2017 CR 1.30 (H) 07/16/2020 CR 1.1 01/10/2017 GLC 123 (H) 07/16/2020 GLC 85.0 05/10/2019 COAGS: No results found for: PTT, INR, FIBR POC: Lab Results Component Value Date BGM 88 03/14/2016 HCG Negative 03/12/2016 HEPATIC: Lab Results Component Value Date ALBUMIN 4.0 04/19/2020 PROTTOTAL 7.6 04/19/2020 ALT 60 04/19/2020 AST 30 04/19/2020 ALKPHOS 57 04/19/2020 BILITOTAL 0.6 04/19/2020 OTHER: Lab Results Component Value Date YESENIA 9.8 07/16/2020 TSH 2.89 04/12/2015 Anesthesia Plan ASA Status: 2 Anesthesia Type: General. - Airway: LMA Induction: Intravenous. Maintenance: TIVA. Consents Anesthesia Plan(s) and associated risks, benefits, and realistic alternatives discussed. Questions answered and patient/wine sales representative(s) expressed understanding. - Discussed with: Patient - Extended Intubation/Ventilatory Support Discussed: No. - Patient is DNR/DNI Status: No Use of blood products discussed: No . Postoperative Care Pain management: Oral pain medications. PONV prophylaxis: Ondansetron (or other 5HT-3), Dexamethasone or Solumedrol Comments: H&P printed and in chart H&P reviewed: Unable to attach H&P to encounter due to EHR limitations. H&P Update: appropriate H&P reviewed, patient examined. No interval changes since H&P (within 30 days). Jose Jarrett III, MD documented in this encounter Miscellaneous Notes Anesthesia Care Transfer Note - Terra Whittington APRN CRNA - 03/19/2021 3:53 PM CDT Patient: Pablo Chakraborty Procedure: Procedure(s): URETHROPLASTY, STAGE 2 Diagnosis: Postprocedural male urethral stricture [N99.114] Diagnosis Additional Information: No value filed. Anesthesia Type: General Note: Oropharynx: spontaneously breathing Level of Consciousness: awake Oxygen Supplementation: face mask Independent Airway: airway patency satisfactory and stable Dentition: dentition unchanged Vital Signs Stable: post-procedure vital signs reviewed and stable Report to RN Given: handoff report given Patient transferred to: PACU Handoff Report: Identifed the Patient, Identified the Reponsible Provider, Reviewed the pertinent medical history, Discussed the surgical course, Reviewed Intra-OP anesthesia mangement and issues during anesthesia, Set expectations for post-procedure period and Allowed opportunity for questions and acknowledgement of understanding Vitals: Vitals Value Taken Time BP 112/77 03/19/21 1553 Temp 36.3 ??C (97.3 ??F) 03/19/21 1553 Pulse 71 03/19/21 1556 Resp 11 03/19/21 1556 SpO2 100 % 03/19/21 1556 Vitals shown include unvalidated device data. Electronically Signed By: Terra Whittington APRN CRNA March 19, 2021 3:56 PM 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 documented as of this encounter Visit Diagnoses Not on filedocumented in this encounter Administered Medications Inactive Administered Medications - up to 3 most recent administrations Medication Order MAR Action Action Date Dose Rate Site ceFAZolin (ANCEF) intermittent Given 03/19/2021 2:33 PM CDT 2 g infusion 2 g in 50 mL dextrose PREMIX Routine, 2 g, Intravenous, PRE-OP/PRE-PROCEDURE, Starting on Fri03/19/21 at 1203, For 1 dose, Give first dose within 1 hour PRIOR to incision. If patient weight is greater than or equal to 120 kg increase dose to 3 g., Indications: Perioperative Pharmacoprophylaxis, Pre-procedure dexamethasone (DECADRON) injection Given 03/19/2021 2:48 PM CDT 4 mg Intravenous, PRN, Administer over 1 Minutes, Starting on Fri03/19/21 at 1448, Anesthesia Intra-op fentaNYL (PF) (SUBLIMAZE) injection Given 03/19/2021 3:10 PM CDT 50 mcg Intravenous, PRN, Administer over 3-5 Minutes, Starting on Fri03/19/21 at 1440, Anesthesia Intra-op Given 03/19/2021 2:40 PM CDT 50 mcg lactated ringers infusion New Bag 03/19/2021 2:33 PM CDT at 100 mL/hr, Intravenous, CONTINUOUS, Pre-procedure, Starting on Fri03/19/21 at 1230, Until Fri03/19/21 at 1600 lidocaine 2% injection (MDV) Given 03/19/2021 2:40 PM CDT 100 mg Intravenous, PRN, Starting on Fri03/19/21 at 1440, Anesthesia Intra-op midazolam (VERSED) injection Given 03/19/2021 2:33 PM CDT 2 mg Intravenous, Administer over 2 Minutes, PRN, Starting on Fri03/19/21 at 1433, Anesthesia Intra-op ondansetron (ZOFRAN) injection Given 03/19/2021 3:12 PM CDT 4 mg Intravenous, PRN, Administer over 2-5 Minutes, Starting on Fri03/19/21 at 1512, Anesthesia Intra-op propofol (DIPRIVAN) infusion Rate/Dose 03/19/2021 3:22 50 mcg/kg/min 23.1 mL/hr Intravenous, CONTINUOUS PRN, Change PM CDT Starting on Fri03/19/21 at 1440, Anesthesia Intra-op Rate/Dose Change 03/19/2021 3:13 PM CDT 120 mcg/kg/min 55.44 mL/hr New Bag 03/19/2021 2:40 PM CDT 150 mcg/kg/min 69.3 mL/hr propofol (DIPRIVAN) injection 10 mg/mL v ial Given 03/19/2021 2:40 PM CDT 190 mg Intravenous, PRN, Starting on 03/19/21 at 1440, Anesthesia Intra-op documented in this encounter Additional Health Concerns Assessment Noted Time PHQ-9 Depression Total Score: 0 05/10/2019 4:19 PM 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 documented as of this encounter Care Teams Table Keeper Relationship Specialty Start Date End Date Beckie Cota MD PCP - General Student in [facility] 12/13/20 04/03/21 [facility] education/training [address] program [place], [place] [phone] Bella Sears, General Surgery 11/28/14 Tana Peña MD Plastic Surgery 10/30/[address] [place] [address] [address] [place], [place] [phone] Sofiya Keenan MD MD knuckle strap sewer 01/11/[address] [place], [place] [phone] Debby Suggs, TECHNICAL SUPPORT ANALYST TECHNICAL SUPPORT ANALYST Plastic Surgery 11/26/16 Aung Salinas MD MD Urology 05/04/18 [address] [place] [address] Dana Jane, CASH Registered Nurse Urology 05/04/18 01/15/22 Shahzad Sen MD MD Plastic Surgery 10/08/18 [facility] [address] [place] [address] John Gresham Specialty Care Plastic Surgery 10/08/18 Coordinator Aung Salinas MD Assigned Surgical 12/17/20 909 [facility] [place] [address] Beckie Cota MD Assigned PCP 12/17/20 04/07/21 [facility] [address] [place], [place] [phone] documented as of this encounter
--- OUTSIDE RECORDS SUMMARY | 2022-04-12 08:17 | XMS_ITS | Encounter Summary ---
:1994 Author Organization [place] Address [address] [place] [address]. [place] [address] Care Team Providers Name Role Phone Bella Sears MD Unavailable Tana Peña MD Unavailable Sofiya Keenan MD Unavailable Debby Suggs LPN Unavailable Unavailable Aung Salinas MD Unavailable Dana Jane RN Unavailable Shahzad Sen MD Unavailable John Gresham Unavailable Marce Gallardo MD Primary Care Provider Marce Gallardo MD Unavailable Reason for Visit Reason Onset Date Comments Prior Auth - Medication 05/23/2020 testosterone cyp ionate (DEPOTESTOSTERONE) 200 MG/ML injection Encounter Details Date Type Department Care Team Description 05/23/2020 [facility] Marce Gallardo MD Prior Auth - Medication Clinic [facility] (testosterone cypionate [address] [place] [address] (DEPOTESTOSTERONE) [id number] MG/ML injection) [place] [phone] (Wo rk) Social History Tobacco Use Types Packs/Day Years Used Date Smoking Tobacco: Former Cigarettes 0.3 Quit : 09/14/2016 Smokeless Tobacco: Never Alcohol Use Standard Drinks/Week Comments Yes 0 (1 standard drink = 0.6 oz pure alcoho l) rarely Sex Assigned at Date Recorded Female 03/20/2020 2:05 PM CDT documented as of this encounter Miscellaneous Notes Telephone Encounter - Lluvia Morales - 05/30/2020 8:34 AM CST Images from the original note were not included. Prior Authorization Approval Authorization Effective Date: 05/25/2020 Authorization Expiration Date: 05/25/2021 Medication: testosterone cypionate (DEPOTESTOSTERONE) 200 MG/ML injection Approved Dose/Quantity: Reference #: [id number] Insurance Company: [facility] [employer] [place] - Expected CoPay: CoPay Card Available: [facility] Assistance Needed: Which Pharmacy is filling the prescription (Not needed for infusion/clinic administered): [facility] - [address] Pharmacy Notified: Yes Patient Notified: Yes, Instructed pharmacy to notify patient when script is ready to brick picker/ship. OF CYTOGENETICS Telephone Encounter - Lluvia Morales - 05/23/2020 4:03 PM CST Images from the original note were not included. PA Initiation Medication: testosterone cypionate (DEPOTESTOSTERONE) 200 MG/ML injection [place] [facility] [place] Rx[place] [facility] - [address] Filling Pharmacy Filling Pharmacy Start Date: 05/23/2020 OF CYTOGENETICS Telephone Encounter - Meche Hankins CMA - 05/23/2020 1:43 PM CST Prior Authorization Retail Medication Request Medication/Dose: testosterone cypionate (DEPOTESTOSTERONE) 200 MG/ML injection ICD code (if different than what is on RX): Gender dysphoria in adult [F64.0] Previously Tried and Failed: See Chart Rationale: See Chart Insurance Name: Medicaid Pharmacy Information (if different than what is on RX) Name: Family [facility] OF CYTOGENETICS 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 documented as of this encounter Visit Diagnoses Not on filedocumented in this encounter Additional Health Concerns Assessment Noted Time PHQ-9 Depression Total Score: 0 05/10/2019 4:19 PM HEAD OF CYTOGENETICS documented as of this encounter Care Teams Behavioral Health Aide Relationship Specialty Start Date End Date Marce Gallardo MD PCP - General Student in [facility] 05/17/19 07/15/[address] [place] [address] education/training program Bella Sears, General Surgery 11/28/14 Tana Peña MD Plastic Surgery 10/30/15 420 [facility] 195 [place], [place] [phone] Sofiya Keenan MD MD veterinary technician 01/11/[address] [facility] 300 [place], [place] [address] Debby Suggs LPN POLICE CADET Plastic Surgery 11/26/16 Aung Salinas MD MD Urology 05/04/18 [address] [place], [place] [phone] Dana Jane, CASH Registered Nurse Urology 05/04/18 01/15/22 Shahzad Sen MD MD Plastic Surgery 10/08/18 [facility] [address] [place] [address] John Gresham Specialty Care Plastic Surgery 10/08/18 Coordinator Marce Gallardo MD Assigned PCP 11/04/19 07/29/[address] [phone] documented as of this encounter
--- OUTSIDE RECORDS SUMMARY | 2022-04-12 08:17 | XMS_ITS | Encounter Summary ---
:1994 Author Organization [place] Address [address] [place] [address]. [place] [address] Care Team Providers Name Role Phone Bella Sears MD Unavailable Tana Peña MD Unavailable Sofiya Keenan MD Unavailable Debby Suggs LPN Unavailable Unavailable Aung Salinas MD Unavailable Dana Jane RN Unavailable Shahzad eSn MD Unavailable John Gresham Unavailable Marce Gallardo MD Primary Care Provider Marce Gallardo MD Unavailable Encounter Details Date Type Department Care Team Description 05/19/2020 Orders Only [facility] Marce Gallardo MD Gender dysphoria in Clinic [facility] adult [address] [facility] [address] [place] [address] [facility] [address] [place], [place] [phone] [address] Social History Tobacco Use Types Packs/Day [...] with No / Unsure 04/19/2020 10:42 AM SOFTWARE TOOLS DEVELOPER someone who was confirmed or suspected to [...] Depression Total Score: 0 05/10/2019 4:19 PM SOFTWARE TOOLS DEVELOPER documented as of this encounter Care Teams Hollow Ware Maker Relationship Specialty Start Date End Date Marce Gallardo MD PCP - General Student in [facility] 05/17/19 07/15/202019 [address], [place] [address] education/training program Bella Sears, General Surgery 11/28/14 Tana Peña MD Plastic Surgery 10/30/[address] [place] [address] 195 [place], [place] [phone] Sofiya Keenan MD MD x ray equipment tester 01/11/16 [facility] [address] [place], [place] [phone] Debby Suggs, AIRCRAFT NAVIGATOR AIRCRAFT NAVIGATOR Plastic Surgery 11/26/16 Aung Salinas MD MD Urology 05/04/18 [address] [place], [place] [phone] Dana Jane, CASH Registered Nurse Urology 05/04/18 01/15/22 Shahzad Sen MD MD Plastic Surgery 10/08/18 [facility] [address] [place] [address] John Gresham Specialty Care Plastic Surgery 10/08/18 Coordinator Marce Gallardo MD Assigned PCP 11/04/19 07/29/20 [facility] [address] [place] [address] documented as of this encounter
--- OUTSIDE RECORDS SUMMARY | 2022-04-12 08:17 | XMS_ITS | Encounter Summary ---
:1994 Author Organization [place] Address [address] [place] [address]. [place] [address] Care Team Providers Name Role Phone Bella Sears MD Unavailable Tana Peña MD Unavailable Sofiya Keenan MD Unavailable Debby Suggs LPN Unavailable Unavailable Aung Salinas MD Unavailable Dana Jane RN Unavailable Shahzad Sen MD Unavailable John Gresham Unavailable Bella Sears MD Primary Care Provider [phone] Marce Gallardo MD Unavailable Encounter Details Date Type Department Care Team Description 07/16/2020 Medical Correspondence [facility] Scan, CLINIC REFERRAL Health Info Mgmt Non-Provider [facility] Srvcs OF NEUROLOGY [address] [place] [address] Social History Tobacco Use Types Packs/Day Years [...] been in contact with No / Unsure 07/16/2020 3:20 PM SENIOR DIRECTOR CREATIVE SERVICES someone who was confirmed or suspected to [...] Depression Total Score: 0 05/10/2019 4:19 PM SENIOR DIRECTOR CREATIVE SERVICES documented as of this encounter Care Teams Tar Pot Man Relationship Specialty Start Date End Date Bella Sears MD PCP - General 07/16/20 07/23/20 [facility] [address] [place] [address] Bella Sears MD General Surgery 11/28/14 Tana Peña MD Plastic Surgery 10/30/15 [address] [facility] 195 [place] [address] Sofiya Keenan MD MD kick press operator 01/11/[address] [facility] [address] [place] [address] Debby Suggs LPN SMALL PARTS SHAPER OPERATOR Plastic Surgery 11/26/16 Aung Salinas MD MD Urology 05/04/18 [address] [facility] [place] [address] Dana Jane, CASH Registered Nurse Urology 05/04/18 01/15/22 Shahzad Sen MD MD Plastic Surgery 10/08/18 [facility] [address] [place] [address] John Gresham Specialty Care Plastic Surgery 10/08/18 Coordinator Marce Gallardo MD Assigned PCP 11/04/19 07/29/20 [facility] [address] [place] [address] documented as of this encounter
--- OUTSIDE RECORDS SUMMARY | 2022-04-12 08:17 | XMS_ITS | Encounter Summary ---
:1994 Author Organization [facility] Address [address] [place] [address]. [place] [address] Care Team Providers Name Role Phone Bella [...] PROS URETHRA,2ND STAGE URETHROPLASTY, STAGE 2 909 [facility] 5th [place] [address] Phone: Fax: Referral ID Status Reason Start Date Expiration Date Visits Requ ested Visits Authorized [id number] 1 1 Encounter Details Date Type Department Care Team Description 03/19/2021 Hospital Encounter [facility] Rita, Post procedural male Main OR Alex Horan MD urethral stricture [address] [facility] [address] [facility] 5th [place] [address] Social History Tobacco Use Types Packs/Day [...] Sign Reading Time Taken Comments Blood Pressure 112/79 03/19/2021 4:30 PM CDT Pulse 85 03/19/2021 11:44 AM CDT Temperature 36.4 ??C (97.6 ??F) 03/19/2021 4:30 PM CDT Respiratory Rate 18 03/19/2021 4:30 PM CDT Oxygen Saturation 97% 03/19/2021 4:30 PM CDT Inhaled Oxygen Concentration - - Weight 76.5 kg (168 lb 11.2 oz) 03/19/2021 11:44 AM CDT Height 165.1 cm (5' 5) 03/19/2021 11:44 AM CDT Body Mass Index 28.07 03/19/2021 11:44 AM CDT documented in this encounter Discharge Instructions Discharge Elinor Gutierrez RN - 03/19/2021 2:45 PM CDT [facility] Home [...] is: Dr. Aung Salinas, Prostate and Urology: [phone] Or dial [phone] and ask for the resident aoc operations intelligence chief for: Prostate Urology For emergency care, call the: [facility]: [phone] (TTY for hearing impaired: [phone]) documented in this encounter Medications at Time [...] valACYclovir (VALTREX) Take 1 tablet by 0 06/09/2 015 500 MG tablet mouth vitamin D3 [...] Alanis MD - 03/19/2021 3:52 PM CDT [facility] Brief Operative Note Pre-operative diagnosis: Postprocedural male [...] weeks. Bonita Alanis MD PGY-4 Urology Pager [phone] Op Note - Aung Salinas MD - 03/19/2021 2:56 PM CDT Pre-operative diagnosis: 1. Gender Dysphoria 2. Urethral Stricture 3. History of first-stage phalloplasty Post-operative diagnosis: same Procedure: 1. Second stage urethroplasty Surgeon: Aung Salinas M.D. New Home Sales Consultant: Bonita Alanis MD Indications: Mr. Pablo Chakraborty [...] for wound check As attending surgeon, Aung Domingo MD, was scrubbed and present for the [...] t available. Provider Scan NON-BEAKER LAB TESTING LAB RESULT - HIM [...] Depression Total Score: 0 05/10/2019 4:19 PM SUPERINTENDENT PLANT documented as of this encounter Care Teams Tool Design Engineer Relationship Specialty Start Date End Date Beckie Cota MD PCP - General Student in [facility] 12/13/20 04/03/21 [facility] Residency health care Program education/training [address] program [place], [place] [phone] Bella Sears, General Surgery 11/28/14 Tana Peña MD Plastic Surgery 10/30/[address] [place] [address] 195 [place], [place] [phone] Sofiya Keenan MD MD twister tender paper 01/11/[address] [facility] 300 [place], [place] [phone] Debby Suggs, PATHOLOGY LAB TECHNICIAN PATHOLOGY LAB TECHNICIAN Plastic Surgery 11/26/16 Aung Salinas MD MD Urology 05/04/18 909 [place] [address] Dana Jane, CASH Registered Nurse Urology 05/04/18 01/15/22 Shahzad Sen MD MD Plastic Surgery 10/08/18 [facility] [address] [place] [address] John Gresham Specialty Care Plastic Surgery 10/08/18 Coordinator Aung Salinas MD Assigned Surgical 12/17/20 909 [facility] Provider [place], [place] [address] Beckie oCta MD Assigned PCP 12/17/20 04/07/21 [facility] Residency Program [address] [place] [address] documented as of this encounter
--- OUTSIDE RECORDS SUMMARY | 2022-04-12 08:17 | XMS_ITS | Encounter Summary ---
:1995 Author Organization [place] Address [address] [place] [address] Care Team Providers Name Role Phone Bella Sears MD Unavailable Tana Peña MD Unavailable Sofiya Keenan MD Unavailable Debby Suggs LPN Unavailable Unavailable Aung Salinas MD Unavailable Dana Jane RN Unavailable Shahzad Sen MD Unavailable John Gresham Unavailable Bella Sears MD Primary Care Provider [phone] Marce Gallardo MD Unavailable Encounter Details Date Type Department Care Team Description 07/16/2020 Travel Social History Tobacco Use Types Packs/Day [...] No / Unsure 07/16/2020 3:20 PM SENIOR MATERIALS ANALYST someone who was confirmed or suspected to [...] Total Score: 0 05/10/2019 4:19 PM SENIOR MATERIALS ANALYST documented as of this encounter Care Teams Pilates Instructor Relationship Specialty Start Date End Date Bella Sears MD PCP - General 07/16/20 07/23/20 [facility] [address] [place] [address] Bella Sears MD General Surgery 11/28/14 Tana Peña MD Plastic Surgery 10/30/[address] [facility] [address] [place] [address] Sofiya Keenan MD MD yarn inspector 01/11/[address] [place] [address] [place] [address] Debby Suggs LPN STRATEGIC MARKETING LEADER Plastic Surgery 11/26/16 Aung Salinas MD MD Urology 05/04/18 909 [place] [address] Dana Jane, RN Registered Nurse Urology 05/04/18 01/15/22 Shahzad Sen MD MD Plastic Surgery 10/08/18 [facility] [address] [place] [address] John Gresham Specialty Care Plastic Surgery 10/08/18 Coordinator Marce Gallardo MD Assigned PCP 11/04/19 07/29/20 [facility] [address] [place] [phone] documented as of this encounter
--- OUTSIDE RECORDS SUMMARY | 2022-04-12 08:17 | XMS_ITS | Encounter Summary ---
:1994 Author Organization [place] Address [address] [place] [address]. [place] [address] Care Team Providers Name Role Phone Bella Sears MD Unavailable Tana Peña MD Unavailable Sofiya Keenan MD Unavailable Debby Suggs LPN Unavailable Unavailable Aung Salinas MD Unavailable Dana Jane RN Unavailable Shahzad Sen MD Unavailable John Gresham Unavailable Marce Gallardo MD Primary Care Provider Marce Gallardo MD Unavailable Reason for Visit Reason Comments RECHECK Phallo follow up. Encounter Details Date Type Department Care Team Description 12/12/2020 Office Visit [facility] Rita, Postproced ural male Plastic and MD Aung urethral stricture Reconstructive Surgery [address] [place] [address] [place] [address] [phone] [address] (Work) [phone] Social History Tobacco Use Types Packs/Day Years [...] been in contact with No / Unsure 12/12/2020 1:28 PM CDT someone who was confirmed or 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 documented as of this encounter Last Filed Vital Signs Vital Sign Reading Time Taken Comments Blood Pressure 121/75 12/12/2020 1:35 PM CDT Pulse 96 12/12/2020 1:35 PM CDT Temperature - - Respiratory Rate - - Oxygen Saturation 97% 12/12/2020 1:35 PM CDT Inhaled Oxygen Concentration - - Weight 76.5 kg (168 lb 11.2 oz) 12/12/2020 1:35 PM CDT Height 165.1 cm (5' 5) 12/12/2020 1:35 PM CDT Body Mass Index 28.07 12/12/2020 1:35 PM CDT documented in this encounter Progress Notes Aung Salinas MD - 12/12/2020 1:40 PM CDT HPI: Pablo Chakraborty is a 25 year old transgender male S/p phalloplasty RFFF With multiple revisions He's left with a nice looking phallus, which has a skin graft ventrally which should really be closed to allow his penis to be tubularized. His pars fixa is now excised. He has a somewhat rightward perineal urethrostomy. He has a neoscrotum which is well formed and contains testicular prostheses. He is slightly unhappy given that the testicles do not lie completely symmetrically. He has given up on voiding Through his entire urethra to tip of penis. Exam: BP 121/75 (BP Location: Left arm, Patient Position: Sitting, Cuff Size: Adult Regular) Pulse 96 Ht 1.651 m (5' 5) Wt 76.5 kg (168 lb 11.2 oz) SpO2 97% BMI 28.07 kg/m?? General: age-appropriate appearing adult in NAD sitting in an exam chair HEENT: Head AT/NC, EOMI, CN Grossly intact. Resp: no respiratory distress CV: heart rate regular Lymph: No cervical, supraclavicular, inguinal or axillary lymphadenopathy Back: bony spine is non-tender, flanks are non-tender. Abdomen: Degree of obesity is none. Abdomen is soft and nontender. No organomegaly. : Neophallus present. [place] shaped given s/p first stage urethroplasty on pendulous urethra. Penoscrotal junction meatus is completely closed. There is no evidence of a pars fixa distal to the perineal urethrostomy. Scrotum well formed with two testicles in place. PU looks patent. There is some banding from skin healing. LE: Edema is none Neuro: grossly non focal. Normal reflexes Skin: clear of rashes or ecchymoses. No sacral decubitus ulcer. Motor: excellent strength throughout Review of Imaging: The following imaging exams were independently viewed and interpreted by me and discussed with patient: Assessment & Plan Gender dysphoria Urethral stricture I discussed at length his goals. He wants to void via perineal urethrostomy. However, he wants to close his pendulous urethra to allow him to have a physiologic penis. This would be in the form of a second stage urethroplasty. Most of the urethra would actually be excised so that he doesn't have an entire defunctionalized skin tube that sheds skin cells that he would need to irrigate. He understands that excising skin would further take him away from voiding via the tip, but he has given up on that. He later will want a penile prosthesis. I discussed he cannot have an IPP placed during urethroplasty. Scheduled for surgery for second stage urethroplasty Aung Salinas MD Reconstructive Urology [facility] Time spent: 40 minutes spent on the date of the encounter doing chart review, history and exam, documentation and further activities per the note documented in this encounter Nursing Notes Malaika Matamoros, EMT - 12/12/2020 1:40 PM CDT Chief Complaint Patient presents with ??? RECHECK Phallo follow up. Vitals: 12/12/20 1335 BP: 121/75 BP Location: Left arm Patient Position: Sitting Cuff Size: Adult Regular Pulse: 96 SpO2: 97% Weight: 76.5 kg (168 lb 11.2 oz) Height: 1.651 m (5' 5) Body mass index is 28.07 kg/m??. KENROY Peres 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 documented as of this encounter Visit Diagnoses Diagnosis Postprocedural male urethral stricture - Primary Postoperative urethral stricture documented in this encounter Additional Health Concerns Assessment Noted Time PHQ-9 Depression Total Score: 0 05/10/2019 4:19 PM ASSEMBLER SKYLIGHTS documented as of this encounter Care Teams Wire Weaving Loom Setter Relationship Specialty Start Date End Date Marce Gallardo MD PCP - General Family Medicine 07/24/20 12/12/202019 [address] [place], [place] [phone] Bella Sears MD General Surgery 11/28/14 Tana Peña MD Plastic Surgery 10/30/[address] [place], [place] [phone] Sofiya Keenan MD MD zinc furnace charger 01/11/[address] [facility] 300 [place], [place] [phone] Debby Suggs LPN SCALPER OPERATOR Plastic Surgery 11/26/16 Aung Salinas MD MD Urology 05/04/18 [address] [place], [place] [address] Dana Jane, CASH Registered Nurse Urology 05/04/18 01/15/22 Shahzad Sen MD MD Plastic Surgery 10/08/18 [facility] [address] [place] [address] John Gresham Specialty Care Plastic Surgery 10/08/18 Coordinator Marce Gallardo MD Assigned PCP 11/19/20 12/16/20 [facility] [id number] [place] [phone] documented as of this encounter
--- OUTSIDE RECORDS SUMMARY | 2022-04-12 08:17 | XMS_ITS | Encounter Summary ---
:1995 Author Organization [facility] Address [address] [place] [address]. [place] [address] Care Team Providers Name Role Phone Bella Sears MD Unavailable Tana Peña MD Unavailable Sofiya Keenan MD Unavailable Debby Suggs LPN Unavailable Unavailable Aung Salinas MD Unavailable Dana Jane RN Unavailable Shahzad Sen MD Unavailable John Gresham Unavailable Marce Gallardo MD Primary Care Provider Marce Gallardo MD Unavailable Reason for Visit Reason Onset Date Comments Refill Request 07/24/2020 testosterone cypiona te (DEPOTESTOSTERONE) 200 MG/ML injection Encounter Details Date Type Department Care Team Description 07/24/2020 Refill [facility] Marce Gallardo MD Refill Request Clinic [facility] (testosterone cypionate [address] [place] [address] (DEPOTESTOSTERONE) [id number] MG/ML injection) [place] [address] [phone] (Wo rk) Social History Tobacco Use Types [...] with No / Unsure 07/16/2020 3:20 PM BENDER MACHINE someone who was confirmed or 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 documented as of this encounter Miscellaneous Notes Telephone Encounter - Cristy Ace EMT - 07/24/2020 3:41 PM CST Called patient and clarified issue--pt says that there are still refills remaining on his rx which he didn't see before, so actually he doesn't need a refill. However, problem might be partially causedby his pharmacy not dispensing 13 ml vials? His insurance doesn't cover that so he's getting smallervials the size of which he's unsure about. For now, pt confirmed he does not need a refill. ER MACHINE Telephone Encounter - Marce Gallardo MD - 07/24/2020 3:19 PM CST Last fill 2 months prior, should be good for 1 year. Cassie Gallardo ER MACHINE Telephone Encounter - Kerry Dueñas RN - 07/24/2020 2:27 PM CST Request for medication refill: Providers if patient needs an appointment and you are willing to give a one month supply please refill for one month and send a letter/MyChart using .SMILLIMITEDREFILL .smillimited and route chart toP [facility] SCENIC ARTIST (Giving one month refill in non controlled medications is strongly recommended before denial) If refill has been denied, meaning absolutely no refills without visit, please complete the smart phrase .smirxrefuse and route it to the [facility] MED REFILLS pool to inform the patient and the pharmacy. Kerry Dueñas RN ER MACHINE Telephone Encounter - Belkis Velazquez - 07/24/2020 2:21 PM CST Verify that the refill encounter hasn't been started Yes [facility] Family Medicine phone call message- patient requesting a refill: Full Medication Name: testosterone cypionate (DEPOTESTOSTERONE) 200 MG/ML injection Dose: see chart Pharmacy confirmed as [facility] - [place], [place] - [address] [facility] [address] [facility] [address] : Yes Medication tab checked to see if medication has been sent Yes Additional Comments: Patient is out of med. OK to leave a message on voice mail? Yes Advised patient refill may take up to 2 business days? Yes Primary language: Liberian Field Crop Harvest Contractor needed? No Call taken on July 24, 2020 at 2:21 PM by Belkis Velazquez Route to [facility] MED REFILL ER MACHINE 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 documented as of this encounter Visit Diagnoses Diagnosis Gender dysphoria in adult documented in this encounter Additional Health Concerns Assessment Noted Time PHQ-9 Depression Total Score: 0 05/10/2019 4:19 PM BENDER MACHINE documented as of this encounter Care Teams Vocational Training Director Relationship Specialty Start Date End Date Marce Gallardo MD PCP - General Family Medicine 07/24/20 12/12/[address] [place] [address] Bella Sears MD General Surgery 11/28/14 Tana Peña MD Plastic Surgery 10/30/[address] [place] [address] [address] [place], [place] [id number] Sofiya Keenan MD MD mincing machine operator 01/11/16 [address] [facility] [address] [place], [place] [id number] Debby Suggs, DIRECTOR OF COMMUNITY LIFE DIRECTOR OF COMMUNITY LIFE Plastic Surgery 11/26/16 Aung Salinas MD MD Urology 05/04/18 [address] [place], [place] [phone] Dana Jane, RN Registered Nurse Urology 05/04/18 01/15/22 Shahzad Sen MD MD Plastic Surgery 10/08/18 [facility] [address] [place] [address] John Gresham [facility] Care Plastic Surgery 10/08/18 Coordinator Marce Gallardo MD Assigned PCP 11/04/19 07/29/20 [facility] [id number] [place] [phone] documented as of this encounter
--- OUTSIDE RECORDS SUMMARY | 2022-04-12 08:17 | XMS_ITS | Encounter Summary ---
:1995 Author Organization [facility] Address [address] [place] [address]. [place] [address] Care Team Providers Name Role Phone Bella Sears MD Unavailable Tana Peña MD Unavailable Sofiya Keenan MD Unavailable Debby Suggs LPN Unavailable Unavailable Aung Salinas MD Unavailable Dana Jane RN Unavailable Shahzad Sen MD Unavailable John Gresham Unavailable Marce Gallardo MD Primary Care Provider Marce Gallardo MD Unavailable Reason for Visit Reason Onset Date Comments Refill Request 05/23/2020 BD Safetyglide Needl e 27G X 10/21 And BD Syringe Encounter Details Date Type Department Care Team Description 05/23/2020 Refill [facility] Marce Gallardo MD Refill Request (BD Clinic [facility] APPLE Safetyglide Needle 27G X [address] [place] [address] CLINIC 8 And BD Syringe ) [address] [address] [place] [address] [phone] (Wo rk) Social History Tobacco Use Types Packs/Day Years Used Date Smoking Tobacco: Former Cigarettes 0.3 Quit : 09/14/2016 Smokeless Tobacco: Never Alcohol Use Standard Drinks/Week Comments Yes 0 (1 standard drink = 0.6 oz pure alcoho l) rarely Sex Assigned at Date Recorded Female 03/20/2020 2:05 PM CDT documented as of this encounter Miscellaneous Notes Telephone Encounter - Ursula Meng MA - 05/23/2020 2:38 PM CST Request for medication refill: Providers if patient needs an appointment and you are willing to give a one month supply please refill for one month and send a letter/MyChart using .SMILLIMITEDREFILL .smillimited and route chart toP [facility] THERAPEUTIC MASSAGE TECHNICIAN (Giving one month refill in non controlled medications is strongly recommended before denial) If refill has been denied, meaning absolutely no refills without visit, please complete the smart phrase .smirxrefuse and route it to the [facility] MED REFILLS pool to inform the patient and the pharmacy. Ursula Meng MA START TEACHER 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 documented as of this encounter Visit Diagnoses Diagnosis Gender dysphoria in adult documented in this encounter Additional Health Concerns Assessment Noted Time PHQ-9 Depression Total Score: 0 05/10/2019 4:19 PM HEAD START TEACHER documented as of this encounter Care Teams Sound System Installer Relationship Specialty Start Date End Date Marce Gallardo MD PCP - General Student in [facility] 05/17/19 07/15/202019 [address] [address] education/training program Bella Sears, General Surgery 11/28/14 Tana Peña MD Plastic Surgery 10/30/[address] [place] [address] [address] [place] [address] Sofiya Keenan MD MD nitrating acid mixer 01/11/[address] [facility] [address] [place] [address] Debby Suggs, BEET WORKER BEET WORKER Plastic Surgery 11/26/16 Aung Salinas MD MD Urology 05/04/18 [address] [place] [address] Dana Jane, RN Registered Nurse Urology 05/04/18 01/15/22 Shahzad Sen MD MD Plastic Surgery 10/08/18 [facility] [address] [place] [address] [facility] Care Plastic Surgery 10/08/18 Coordinator Marce Gallardo MD Assigned PCP 11/04/19 07/29/20 [facility] [id number] [place] [phone] documented as of this encounter
--- OUTSIDE RECORDS SUMMARY | 2022-04-12 08:17 | XMS_ITS | Encounter Summary ---
:1995 Author Organization [facility] Address [address] [place] [address]. [place] [address] Care Team Providers Name Role Phone Bella Sears MD Unavailable Tana Peña MD Unavailable Sofiya Keenan MD Unavailable Debby Suggs LPN Unavailable Unavailable Aung Salinas MD Unavailable Dana Jane RN Unavailable Shahzad Sen MD Unavailable John Gresham Unavailable Marce Gallardo MD Unavailable Marce Gallardo MD Primary Care Provider Reason for Visit Reason Onset Date Comments Medication Question 08/29/2020 Needle, Disp, 27G X 10/21 [facility] [place] [place] Encounter Details Date Type Department Care Team Description 08/29/2020 Telephone [facility] Marce Gallardo MD Medication Question Clinic [facility] (Needle, Disp, 27G X [address] CLINIC 10/21 [facility] [place] [address] [address] [place] [phone] (Wo rk) Social History Tobacco Use [...] Telephone Encounter - Jessie Duffy RN - 08/29/2020 8:44 AM CDT RN spoke to legal technician and gave verbal approval for 25G 5/8 needles instead of 27G 5/8 for hormone injections. Jessie Duffy RN Telephone Encounter - Belkis Velazquez - 08/29/2020 8:25 AM CDT [facility] phone call message- medication clarification/question: Full Medication Name: Needle, Disp, 27G X 5/8 MISC Dose: see chart Question/Clarification needed: Riri calling from pharmacy to advise unable to fill 27G x 5/8 needles. Inquiring if okay to dispense 25G x 5/8 needles. Pharmacy confirmed as [facility] - [address] [address] : Yes Please leave ONLY preferred pharmacy OK to leave a message on voice mail? Yes Advised patient that RN would call back within 3 hours, unless emergent. Primary language: [place] Asparagus Cutter needed? 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 documented as of this encounter Visit Diagnoses Not on filedocumented in this encounter Additional Health Concerns Assessment Noted Time PHQ-9 Depression Total Score: 0 05/10/2019 4:19 PM MANAGER ENROLLMENT documented as of this encounter Care Teams Sail Lay Out Worker Relationship Specialty Start Date End Date Marce Gallardo MD PCP - General Family Medicine 07/24/20 12/12/[address] [place] [address] Bella Sears MD General Surgery 11/28/14 Tana Peña MD Plastic Surgery 10/30/[address] [facility] [address] [place] [address] Sofiya Keenan MD MD materials management manager 01/11/[address] [place] [address] [place] [address] Debby Suggs, LIFE ENRICHMENT MANAGER LIFE ENRICHMENT MANAGER Plastic Surgery 11/26/16 Aung Salinas MD MD Urology 05/04/18 [address] [place] [address] Dana Jnae, CASH Registered Nurse Urology 05/04/18 01/15/22 Shahzad Sen MD MD Plastic Surgery 10/08/18 [facility] [address] [place] [address] John Gresham [facility] Care Plastic Surgery 10/08/18 Coordinator Marce Gallardo MD Assigned PCP 07/30/20 11/08/20 [facility] [id number] [place] [phone] documented as of this encounter
--- OUTSIDE RECORDS SUMMARY | 2022-04-12 08:17 | XMS_ITS | Encounter Summary ---
:1995 Author Organization [facility] Address [address] [place] [address]. [place] [address] Care Team Providers Name Role Phone Bella Sears MD Unavailable Tana Peña MD Unavailable Sofiya Keenan MD Unavailable Debby Suggs LPN Unavailable Unavailable Aung Salinas MD Unavailable Dana Jane RN Unavailable Shahzad Sen MD Unavailable John Gresham Unavailable Bella Sears MD Primary Care Provider [phone] Marce Gallardo MD Unavailable Reason for Visit Reason Comments Numbness Encounter Details Date Type Department Care Team Description 07[facility]2020 [facility] [address] [place], [place] [address] Arm numbness left; [facility] Emergency Dep t Juan Daniel Enriquez MD [facility] [address] [place] [address] Left leg numbness [address] [place] [address] Social History Tobacco Use Types Packs/Day Years [...] with No / Unsure 07/16/2020 3:20 PM RESEARCH PSYCHOLOGIST someone who was confirmed or 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 documented as of this encounter Last Filed Vital Signs Vital Sign Reading Time Taken Comments Blood Pressure 122/75 07/16/2020 6:51 PM RESEARCH PSYCHOLOGIST Pulse 77 07/16/2020 6:51 PM RESEARCH PSYCHOLOGIST Temperature 37.1 ??C (98.8 ??F) 07/16/2020 8:52 AM RESEARCH PSYCHOLOGIST Respiratory Rate 18 07/16/2020 8:52 AM RESEARCH PSYCHOLOGIST Oxygen Saturation 99% 07/16/2020 6:51 PM RESEARCH PSYCHOLOGIST Inhaled Oxygen Concentration - - Weight - - Height - - Body Mass Index - - documented in this encounter Discharge Instructions Discharge InstructionsGoJuan Daniel siddiqui MD - 07/16/2020 6:53 PM RESEARCH PSYCHOLOGIST Your testing in the emergency room today has included MRIs of your entire central nervous system this includes the brain and the entire spine. These are all normal. We I do not have a reason for the numbness and tingling that you are describing please follow-up with a neurologist for reassessment as the emergency room does not have test for the peripheral nervous system. ARCH PSYCHOLOGIST AttachmentsThe following attachments cannot be sent through Care Everywhere. Paraesthesias (Slovak)documented in this encounter Medications at Time of Discharge Medication Sig Dispensed Refills Start Date End Date albuterol (PROAIR Inhale 2 puffs into 0 5 HFA/PROVENTIL the lungs HFA/VENTOLIN HFA) 108 (90 BASE) MCG/ACT Inhaler ALBUTEROL IN Inhale 2 puffs into 0 12/24/2014 the lungs atorvastatin (LIPITOR) 40 Take 1 tablet (40 360 tablet 0 MG tabletIndications: mg) by mouth daily Hypercholesteremia celecoxib (CELEBREX) 200 Take 200 mg by mouth 0 MG capsule daily desvenlafaxine (PRISTIQ) Take 50 mg by mouth 0 50 MG 24 hr tablet daily gabapentin (NEURONTIN) Take 1 tablet (600 0 03/20 600 MG tablet mg) by mouth 3 times daily OMEPRAZOLE PO Take 20 mg by mouth 0 topiramate (TOPAMAX) 50 Take 50 mg by mouth 0 MG tablet At Bedtime valACYclovir (VALTREX) Take 1 tablet by 0 015 500 MG tablet mouth vitamin D3 Take 1 tablet by 100 tablet 3 07/17/2018 (CHOLECALCIFEROL) 2000 mouth daily units tabletIndications: Health care maintenance needle, disp, 18G X 1 Use to draw up 25 each 3 0 11/10/2020 MISCIndications: Gender hormones once weekly dysphoria in adult Needle, Disp, 27G X 5/8 Use once weekly for 25 each 3 11/10/2020 MISCIndications: Gender administering dysphoria in adult hormone IM syringe, disposable, 1 ML Use once weekly to 25 each 3 11/10/2020 MISCIndications: Gender draw up hormones dysphoria in adult testosterone cypionate Inject 0.3 mLs (60 13 mL 3 05/1911/10/2020 (DEPOTESTOSTERONE) 200 mg) into the muscle MG/ML once a week Supply injectionIndications: accounts for Gender dysphoria in adult single-use vials documented as of this encounter ED Notes Juan Daniel Enriquez MD - 07/16/2020 7:07 PM CST Patient is signed out to me pending MRI results. MRI is negative for acute findings according to theradiologist. Patient's had vague paresthesias of both legs but including left arm and left leg. Patient was advised that the negative results. Patient was advised that the emergency room is done extensive MRI imaging for a central nervous system cause for paresthesias and is negative. Patient was recommended follow-up with neurology [facility] referral was faxed and patient was discharged in stable condition. Juan Daniel Enriquez MD 07/16/20 192 ARCH PSYCHOLOGIST Tuan Abarca RN - 07/16/2020 8:51 AM CST Pt presents with mother for numbness and tingling in both legs worse on left. Hx of spinal stimulator removed 07/13. Was seen yesterday at [facility] and infection ruled out. Sent here to rule out spinal hematoma. Hx of autism. ABCs intact. ARCH PSYCHOLOGIST Marshal Sullivan DO - 07/16/2020 8:46 AM CST History Chief Complaint: Numbness HPI: Pablo Chakraborty is a 25 year old adult who presents with his mother for bilateral leg tingling and numbness since this morning, worse in the left leg. Last week, patient had 5 days of severe back pain, abdominal pain, diaphoresis, tremors, nausea, and vomiting. This prompted removal of his spinal stimulator 3 days ago on 07/13, at which time he was also started on cephalexin. However, the abdominal and back pain were still unresolved so he was seen in the [facility] ED last night on 07/15. Abdominal CT at that time was benign as noted below. [facility] was unable to perform a spinal MRI last night, so they referred him here. Today, patient states that the pain has mostly resolved and reportsonly bilateral leg tingling and numbness today. Symptoms are worse in the left leg, and he also reports intermittent tingling and numbness of the left arm. CT Abdomen/pelvis w contrast 07/16/2020 1. No acute findings within the abdomen or pelvis. Review of Systems Neurological: Positive for numbness. +tingling All other systems reviewed and are negative. Allergies: No known drug allergies Medications: Albuterol inhaler Lipitor Celebrex Pristiq Gabapentin Omeprazole Depotestosterone Topamax Valtrex Vitamin D3 Past Medical History: Asperger syndrome Chronic migraine Concussion Eelqgh-yw-ugdj transgender person Asthma Bipolar affective disorder HSV infection Gender dysphoria Tobacco use Hyperlipidemia Autism Hepatic steatosis IBS Past Surgical History: Gender confirmation surgery SHADY, salpingo-oophorectomy Transgender mastectomy [place] tooth extraction Family History: Hypertension PE Diabetes Depression CAD Bipolar disorder Cerebrovascular disease Social History: Patient presents with mother. Physical Exam Vitals: Patient Vitals for the past 24 hrs: BP Temp Temp src Pulse Resp SpO2 07/16/20 1515 130/75 -- -- 65 -- 100 % 07/16/20 1200 133/71 -- -- 107 -- 99 % 07/16/20 1145 128/82 -- -- 74 -- 99 % 07/16/20 1130 (!) 125/93 -- -- 79 -- 100 % 07/16/20 1115 (!) 146/95 -- -- 70 -- 99 % 07/16/20 1100 (!) 134/94 -- -- 79 -- -- 07/16/20 0852 (!) 149/106 98.8 ??F (37.1 ??C) Oral 83 18 97 % Physical Exam Constitutional: Vital signs reviewed as above. HENT: Head: No external signs of trauma noted. Eyes: Pupils are equal, round, and reactive to light. Cardiovascular: Normal rate, regular rhythm, normal heart sounds and intact distal pulses. Pulmonary/Chest: Effort normal and breath sounds normal. No respiratory distress. No wheezes noted. Gastrointestinal: Soft. There is no tenderness. There is no rebound. Musculoskeletal: No deformities appreciated No edema noted Neurological: Patient is alert and oriented to person, place, and time. Speech is fluent, cognition is normal. CN 2-12 intact (PERRL, EOMI, symmetric smile, equal eye squeeze and forehead raise, normal and equal sensation to bilateral forehead/cheek/chin, equal hearing to finger rub, midline tongue protrusion with nl vckb-tz-hrei movement, normal shoulder shrug). RUE strength 4-5/5: pin worker, finger abd, wrist flex/ext, elbow flex/ext. LUE strength 4-5/5: pin worker, finger abd, wrist flex/ext, elbow flex/ext. RLE strength 4-5/5: ankle flex/ext, knee flex/ext, hip flex. LLE strength 4-5/5: ankle flex/ext, knee flex/ext, hip flex. B/L Patellar reflexes +2 Sensation: The patient perceives decreased light touch sensation in the left upper and left lower extremity compared to the right. There seems to be normal two-point discrimination in the right lower extremity as well as the left lower extremity. No arm drift. ?? Cerebellar: Normal rapid alternating movements ( zezuwe-cwki-ruwjaa, rapid pronation/supination, hand rolling) Normal fqoq-rm-cdjd Skin: Skin is warm and dry. Psychiatric: The patient appears calm Emergency Department Course Imaging: MR Cervical Spine w/o & w Contrast Preliminary Result IMPRESSION: Negative cervical spine MR without and with contrast. MR Thoracic Spine w/o & w Contrast Preliminary Result IMPRESSION: 1. Minimal degenerative disc disease at T7-T8 and T10-T11 without stenosis. 2. No evidence for any epidural abscess or any acute process. Lumbar spine MRI w & w/o contrast - surgery <10yrs Preliminary Result IMPRESSION: Normal lumbar spine MRI examination without and with contrast. XR Pelvis 1/2 Views Final Result IMPRESSION: Metallic density is confirmed in the lower left pelvis, left groin, and upper thigh. Numerous surgical clips noted, numbering dozens overlie the left ilium, ischium, medial upper thigh, and scrotum. Presumably these are related to prior surgery. JUAN DANIEL LOOMIS MD Abdomen XR 1 vw Final Result IMPRESSION: No convincing evidence for a metallic foreign body in the visualized portion of the abdomen. Bowel gas pattern is within normal limits. JAZMINE HADDAD MD XR Chest 1 View Final Result IMPRESSION: Heart size is normal. No pleural effusion, pneumothorax, or abnormal area of consolidation. No metallic density identified overlying the thorax. JUAN DANIEL LOOMIS MD MR Brain w/o Contrast (Results Pending) Laboratory: CBC: WBC 8.9, HGB 16.6, PLT 297 BMP: potassium 3.3 (L), Glucose 123 (H), Creatinine 1.30 (H) o/w WNL Emergency Department Course: Reviewed: 09 Past medical records, Care Everywhere, nursing notes, and vitals reviewed. Assessments & Consults: ED Course as of Jul 16 160 Sun Jul 16, 2020 0904 I performed an exam of the patient and obtained history, as documented above. 1033 D/W Marry (ALEJO) from [facility]. 1133 Patient rechecked and updated. 1528 Patient rechecked and updated. 1546 D/W Marry LUCAS) from [facility]. [address] Enriquez. MRI brain pending. Interventions: 0920 Morphine, 4 mg, IV 1059 Zofran, 4 mg, IV 1202 Tylenol, 650 mg, PO 1232 Morphine, 4 mg, IV Disposition: Patient was signed out to Dr. Enriquez. Anticipate discharge home. I personally reviewed the laboratory & imaging results with the Patient and mother who voiced understanding of the findings. I answered all related questions prior to discharge. Impression & Plan Medical Decision Making: Pablo Chakraborty is a 25 year old adult who presents to the emergency department today for evaluation of leg and arm numbness. Please see the HPI and exam for specifics. The patient remained stable in the ED. After my conversation with the patient, the patient's mother, and the covering physician reproductive healthcare assistant of the patient's pain clinic, we elected on ordering MRI of the C, T, and L-spine. Fortunately, there is no evidence of epidural abscess or hematoma. The patient still perceives decreased sensation in the left upper and left lower extremity. Two-point discrimination appears normal. It is difficult to really get a sense if the patient feels paresthesias versus decreased sensation but after further discussion we will plan on ordering a brain MRI. This will be followed by my colleague, Dr. Enriquez. I anticipate that this should be normal though we will try to rule out a gross stroke or some kind of strange brain mass. I think the patient, if imaging is normal, can be discharged to follow-up closely in the outpatient setting. Diagnosis: ICD-10-CM 1. Arm numbness left R20.0 2. Left leg numbness R20.0 Discharge Medications: New Prescriptions No medications on file Scribe Disclosure: IMariaelena, am serving as a scribe at 9:04 AM on 07/16/2020 to document services personally performed by Marshal Sullivan DO based on my observations and the provider's statements to me. Mariaelena Thurman 07/16/2020 Marshal Sullivan DO 07/16/20 1602 ARCH PSYCHOLOGIST 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 documented as of this encounter Procedures Procedure Name Priority Date/Time Associated Comments Diagnosis MR BRAIN W/O CONTRAST STAT 07/16/2020 5:08 PM Results for this RESEARCH PSYCHOLOGIST procedure are i n the results section. MR CERVICAL SPINE W/O STAT 07/16/2020 3:00 PM Results for this & W CONTRAST RESEARCH PSYCHOLOGIST procedure are i n the results section. MR THORACIC SPINE W/O STAT 07/16/2020 2:58 PM Results for this & W CONTRAST RESEARCH PSYCHOLOGIST procedure are i n the results section. MR LUMBAR SPINE W/O & STAT 07/16/2020 2:48 PM Results for this W CONTRAST RESEARCH PSYCHOLOGIST procedure are i n the results section. XR PELVIS 1/2 VIEWS STAT 07/16/2020 12:27 Resu lts for this PM RESEARCH PSYCHOLOGIST procedure are i n the results section. XR ABDOMEN 1 VIEW STAT 07/16/2020 12:27 Result s for this PM RESEARCH PSYCHOLOGIST procedure are i n the results section. XR CHEST 1 VIEW STAT 07/16/2020 12:25 Results for this PM RESEARCH PSYCHOLOGIST procedure are i n the results section. CBC WITH PLATELETS & STAT 07/16/2020 10:03 Res ults for this DIFFERENTIAL AM RESEARCH PSYCHOLOGIST procedure are i n the results section. BASIC METABOLIC PANEL STAT 07/16/2020 10:03 Re sults for this AM RESEARCH PSYCHOLOGIST procedure are i n the results section. documented in this encounter Results MR Brain w/o Contrast (07/16/2020 5:08 PM RESEARCH PSYCHOLOGIST) Anatomical Region Laterality Modality Head, SUBRAD MR NEURO, UMP MR NEURO, RAD MR Magnetic Resonance Specimen (Source) Anatomical Collection Method Collection Time Re ceived Time Location / / Volume Laterality 07/16/2020 4:40 PM RESEARCH PSYCHOLOGIST Impressions 07/16/2020 5:33 PM RESEARCH PSYCHOLOGIST IMPRESSION: 1. ??Normal head MRI. Narrative 07/16/2020 5:33 PM RESEARCH PSYCHOLOGIST EXAM: MR BRAIN W/O CONTRAST LOCATION: [facility] DATE/TIME: 07/16/2020 4:40 PM INDICATION: Bilateral lower extremity pa resthesias left side more so than right. Left arm tingling and numbness. COMPARISON: None. TECHNIQUE: Routine multiplanar multisequ ence head MRI without intravenous contrast. FINDINGS: INTRACRANIAL CONTENTS: No acute or subac juan infarct. No mass, acute hemorrhage, or extra-axial fluid collections. Normal brain parenchymal signal. Normal ventricles and sulci. Normal position of the cerebellar tonsils. Normal white matter tracts. SELLA: No abnormality accounting for edouard hnique. OSSEOUS STRUCTURES/SOFT TISSUES: Normal marrow signal. The major intracranial vascular flow voids are maintained. ORBITS: No abnormality accounting for te chnique. SINUSES/MASTOIDS: No paranasal sinus muc osal disease. No middle ear or mastoid effusion. Procedure Note Sohail Mccrary MD - 07/16/2020Form atting of this note might be different from the original. EXAM: MR BRAIN W/O CONTRAST LOCATION: [facility] DATE/TIME: 07/16/2020 4:40 PM INDICATION: Bilateral lower extremity pa resthesias left side more so than right. Left arm tingling and numbness. COMPARISON: None. TECHNIQUE: Routine multiplanar multisequ ence head MRI without intravenous contrast. FINDINGS: INTRACRANIAL CONTENTS: No acute or subac juan infarct. No mass, acute hemorrhage, or extra-axial fluid collections. Normal brain parenchymal signal. Normal ventricles and sulci. Normal position of the cerebellar tonsils. Normal white matter tracts. SELLA: No abnormality accounting for edouard hnique. OSSEOUS STRUCTURES/SOFT TISSUES: Normal marrow signal. The major intracranial vascular flow voids are maintained. ORBITS: No abnormality accounting for te chnique. SINUSES/MASTOIDS: No paranasal sinus muc osal disease. No middle ear or mastoid effusion. IMPRESSION: 1. Normal head MRI. Marshal Sullivan DO IMG MRI ORDERABLES MR Cervical Spine w/o & w Contrast (07/16/2020 3:00 PM RESEARCH PSYCHOLOGIST) Anatomical Region Laterality Modality Spine, SUBRAD MR NEURO, UMP MR SPINE, RAD MR Magnetic Resonance Specimen (Source) Anatomical Location Collection Method / Collectio n Time Received Time / Laterality Volume Impressions 07/16/2020 5:33 PM RESEARCH PSYCHOLOGIST IMPRESSION: Negative cervical spine MR without and with contrast. ESTVEAN HOWELL MD Narrative 07/16/2020 5:33 PM RESEARCH PSYCHOLOGIST MR CERVICAL SPINE WITHOUT AND WITH CONTRAST 07/16/2020 3:00 PM HISTORY: Bilateral numbness and tingling . Recent removal of spinal cord stimulator. Evaluate for possible e pidural abscess. TECHNIQUE: Multiplanar multisequence amber ges were obtained through the cervical spine without and with contrast . 7.5 mL of Gadavist given. COMPARISON: None. FINDINGS: Sagittal images demonstrate no rmal posterior alignment. There is no evidence for craniovertebral or cervical medullary junction abnormality. The cervical cord is normal in morphology and signal characteristics. Disc spaces are relatively preserved in height. Vertebral body heights are maint ained. Bone marrow signal intensity is normal. Postcontrast images do not show any abnormal areas of enhancement within the cervical cord or intradural epidural space. Paraspinal soft tissues are unrem arkable. C1-C2: Normal. C2-C3: Normal. C3-C4: Normal. C4-C5: Normal. C5-C6: Normal. C6-C7: Normal. C7-T1: Normal. Procedure Note Estevan Howell MD - 07/16/2020Form atting of this note might be different from the original. MR CERVICAL SPINE WITHOUT AND WITH CONTR AST 07/16/2020 3:00 PM HISTORY: Bilateral numbness and tingling . Recent removal of spinal cord stimulator. Evaluate for possible e pidural abscess. TECHNIQUE: Multiplanar multisequence amber ges were obtained through the cervical spine without and with contrast . 7.5 mL of Gadavist given. COMPARISON: None. FINDINGS: Sagittal images demonstrate no rmal posterior alignment. There is no evidence for craniovertebral or cervical medullary junction abnormality. The cervical cord is normal in morphology and signal characteristics. Disc spaces are relatively preserved in height. Vertebral body heights are maint ained. Bone marrow signal intensity is normal. Postcontrast images do not show any abnormal areas of enhancement within the cervical cord or intradural epidural space. Paraspinal soft tissues are unrem arkable. C1-C2: Normal. C2-C3: Normal. C3-C4: Normal. C4-C5: Normal. C5-C6: Normal. C6-C7: Normal. C7-T1: Normal. IMPRESSION: Negative cervical spine MR w ithout and with contrast. ESTEVAN HOWELL MD Marshal Sullivan DO IMG MRI ORDERABLES MR Thoracic Spine w/o & w Contrast (07/16/2020 2:58 PM RESEARCH PSYCHOLOGIST) Anatomical Region Laterality Modality Spine, SUBRAD MR NEURO, UMP MR SPINE, RAD MR Magnetic Resonance Specimen (Source) Anatomical Location Collection Method / Collectio n Time Received Time / Laterality Volume Impressions 07/16/2020 5:33 PM RESEARCH PSYCHOLOGIST IMPRESSION: 1. Minimal degenerative disc disease at T7-T8 and T10-T11 without stenosis. 2. No evidence for any epidural abscess or any acute process. ESTEVAN HOWELL MD Narrative 07/16/2020 5:33 PM RESEARCH PSYCHOLOGIST MR THORACIC SPINE WITHOUT AND WITH CONTRAST 07/16/2020 2:58 PM HISTORY: Back pain with bilateral numbne ss and tingling. Possible epidural abscess. Recent removal of spin al stimulator. TECHNIQUE: Multiplanar multisequence amber ges were obtained through the thoracic spine without and with contrast . 7.5 mL of Gadavist given. COMPARISON: None. FINDINGS: Sagittal images demonstrate no rmal posterior alignment. Vertebral body heights are maintained. D isc space narrowing is present at T7-T8, T10-T11. Bone marrow signal in tensity is normal. The thoracic cord is normal in morphology an d signal characteristics. Postcontrast images do not show any abno rmal areas of enhancement within the spinal column. Paraspinal sof t tissues are normal. There is no evidence for any focal disc protrusio ns or stenosis. There is no evidence for any epidural abscess. Procedure Note Estevan Howell MD - 07/16/2020Form atting of this note might be different from the original. MR THORACIC SPINE WITHOUT AND WITH CONTR AST 07/16/2020 2:58 PM HISTORY: Back pain with bilateral numbne ss and tingling. Possible epidural abscess. Recent removal of spin al stimulator. TECHNIQUE: Multiplanar multisequence amber ges were obtained through the thoracic spine without and with contrast . 7.5 mL of Gadavist given. COMPARISON: None. FINDINGS: Sagittal images demonstrate no rmal posterior alignment. Vertebral body heights are maintained. D isc space narrowing is present at T7-T8, T10-T11. Bone marrow signal in tensity is normal. The thoracic cord is normal in morphology an d signal characteristics. Postcontrast images do not show any abno rmal areas of enhancement within the spinal column. Paraspinal sof t tissues are normal. There is no evidence for any focal disc protrusio ns or stenosis. There is no evidence for any epidural abscess. IMPRESSION: 1. Minimal degenerative disc disease at T7-T8 and T10-T11 without stenosis. 2. No evidence for any epidural abscess or any acute process. ESTEVAN HOWELL MD Marshal Sullivan DO IMG MRI ORDERABLES Lumbar spine MRI w & w/o contrast - surgery <10yrs (07/16/2020 2:48 PM RESEARCH PSYCHOLOGIST) Anatomical Region Laterality Modality Spine, SUBRAD MR NEURO, UMP MR SPINE, RAD MR Magnetic Resonance Specimen (Source) Anatomical Location Collection Method / Collectio n Time Received Time / Laterality Volume Impressions 07/16/2020 5:33 PM RESEARCH PSYCHOLOGIST IMPRESSION: Normal lumbar spine MRI examination without and with contrast. ESTEVAN HOWELL MD Narrative 07/16/2020 5:33 PM RESEARCH PSYCHOLOGIST MR LUMBAR SPINE WITHOUT AND WITH CONTRAST 07/16/2020 2:48 PM HISTORY: Epidural abscess suspected. Anuj k pain with bilateral numbness and tingling. Recent removal of epidural stimulator. TECHNIQUE: Multiplanar multisequence amber ges were obtained through the lumbar spine without and with contrast. 7.5 mL of Gadavist given. COMPARISON: None. FINDINGS: Five lumbar-type vertebral bod ies are presumed. Posterior alignment is normal. Vertebral body heig hts are maintained. Bone marrow signal intensity is normal. The c onus medullaris is normal in appearance with its tip at the L1-L2 lev el. Cauda equina nerve roots are normal. Postcontrast images do not s how any abnormal areas of enhancement within the internal space or along the cauda equina nerve roots. Paraspinal soft tissues and visua lized bony pelvis are normal. L1-L2: Normal. L2-L3: Normal. L3-L4: Normal. L4-L5: Normal. L5-S1: Normal. Procedure Note Estevan Howell MD - 07/16/2020Form atting of this note might be different from the original. MR LUMBAR SPINE WITHOUT AND WITH CONTRAS T 07/16/2020 2:48 PM HISTORY: Epidural abscess suspected. Anuj k pain with bilateral numbness and tingling. Recent removal of epidural stimulator. TECHNIQUE: Multiplanar multisequence amber ges were obtained through the lumbar spine without and with contrast. 7.5 mL of Gadavist given. COMPARISON: None. FINDINGS: Five lumbar-type vertebral bod ies are presumed. Posterior alignment is normal. Vertebral body heig hts are maintained. Bone marrow signal intensity is normal. The c onus medullaris is normal in appearance with its tip at the L1-L2 lev el. Cauda equina nerve roots are normal. Postcontrast images do not s how any abnormal areas of enhancement within the internal space or along the cauda equina nerve roots. Paraspinal soft tissues and visua lized bony pelvis are normal. L1-L2: Normal. L2-L3: Normal. L3-L4: Normal. L4-L5: Normal. L5-S1: Normal. IMPRESSION: Normal lumbar spine MRI exam ination without and with contrast. ESTEVAN HOWELL MD Marshal Horan Nate MULLIGAN [facility] MRI ORDERABLES XR Pelvis 1/2 Views (07/16/2020 12:27 PM RESEARCH PSYCHOLOGIST) Anatomical Region Laterality Modality Abdomen/Pelvis Digital Radiography Specimen (Source) Anatomical Location Collection Method / Collectio n Time Received Time / Laterality Volume Impressions 07/16/2020 12:39 PM RESEARCH PSYCHOLOGIST IMPRESSION: Metallic density is confirmed in the lower left pelvis, left groin, and upper thigh. Numerous pastrana rgical clips noted, numbering dozens overlie the left ilium, ischium, medial upper thigh, and scrotum. Presumably these are related to prior surgery. JUAN DANIEL LOOMIS MD Narrative 07/16/2020 12:39 PM RESEARCH PSYCHOLOGIST PELVIS ONE TO TWO VIEWS ??07/16/2020 12:27 PM HISTORY: Screening for residual metallic implants. COMPARISON: None. Procedure Note Juan Daniel Loomis MD - 07/16/2020 PELVIS ONE TO TWO VIEWS 07/16/2020 12:27 PM HISTORY: Screening for residual metallic implants. COMPARISON: None. IMPRESSION: Metallic density is confirme d in the lower left pelvis, left groin, and upper thigh. Numerous pastrana rgical clips noted, numbering dozens overlie the left ilium, ischium, medial upper thigh, and scrotum. Presumably these are related to prior surgery. JUAN DANIEL LOOMIS MD Marshal Aung Sullivan DO [facility] DIAGNOSTIC IMAGING ORDER [facility] Abdomen XR 1 vw (07/16/2020 12:27 PM RESEARCH PSYCHOLOGIST) Anatomical Region Laterality Modality Abdomen/Pelvis Digital Radiography Specimen (Source) Anatomical Location Collection Method / Collectio n Time Received Time / Laterality Volume Impressions 07/16/2020 12:34 PM RESEARCH PSYCHOLOGIST IMPRESSION: No convincing evidence for a metallic foreign body in the visualized portion of the abdomen. Bowel gas pattern is within normal limits. JAZMINE HADDAD MD Narrative 07/16/2020 12:34 PM RESEARCH PSYCHOLOGIST ABDOMEN ONE VIEW ??07/16/2020 12:27 PM HISTORY: Screening for residual metallic implants. COMPARISON: None. Procedure Note Jazmine Haddad MD - 07/16/2020Forma tting of this note might be different from the original. ABDOMEN ONE VIEW 07/16/2020 12:27 PM HISTORY: Screening for residual metallic implants. COMPARISON: None. IMPRESSION: No convincing evidence for a metallic foreign body in the visualized portion of the abdomen. Bowel gas pattern is within normal limits. JAZMINE HDADAD MD Marshalrigo Horan Nate DO [facility] DIAGNOSTIC IMAGING ORDER [facility] XR Chest 1 View (07/16/2020 12:25 PM RESEARCH PSYCHOLOGIST) Anatomical Region Laterality Modality Chest Digital Radiography Specimen (Source) Anatomical Location Collection Method / Collectio n Time Received Time / Laterality Volume Impressions 07/16/2020 12:39 PM RESEARCH PSYCHOLOGIST IMPRESSION: Heart size is normal. No pleural effusion, pneumothorax, or abnormal area of consolidation. No me tallic density identified overlying the thorax. JUAN DANIEL LOOMIS MD Narrative 07/16/2020 12:39 PM RESEARCH PSYCHOLOGIST CHEST ONE VIEW ??07/16/2020 12:25 PM HISTORY: Screening for residual metallic implants. COMPARISON: None. Procedure Note Juan Daniel Loomis MD - 07/16/2020 CHEST ONE VIEW 07/16/2020 12:25 PM HISTORY: Screening for residual metallic implants. COMPARISON: None. IMPRESSION: Heart size is normal. No ple ural effusion, pneumothorax, or abnormal area of consolidation. No me tallic density identified overlying the thorax. JUAN DANIEL LOOMIS MD Marshal Sullivan DO [facility] DIAGNOSTIC IMAGING ORDER [facility] (ABNORMAL) Basic metabolic panel (07/16/2020 10:03 AM RESEARCH PSYCHOLOGIST) Analysis Performed At Patho logist Time Signature Sodium 138 133 - 144 07/16/2020 [facility] mmol/L 10:28 AM [facility] Potassium 3.3 (L) 3.4 - 5.3 07/16/2020 [facility] mmol/L 10:28 AM [facility] Chloride 104 94 - 109 07/16/2020 [facility] mmol/L 10:28 AM [facility] Carbon Dioxide 28 20 - 32 07/16/2020 [facility] mmol/L 10:33 AM [facility] Anion Gap 6 3 - 14 07/16/2020 [facility] mmol/L 10:33 AM [facility] Glucose 123 (H) 70 - 99 07/16/2020 [facility] mg/dL 10:33 AM [facility] Urea Nitrogen 15 7 - 30 07/16/2020 [facility] mg/dL 10:33 AM [facility] Creatinine 1.30 (H) 0.66 - 07/16/2020 [facility] 1.25 mg/dL 10:33 AM [facility] GFR Estimate 75 >60 07/16/2020 [facility] mL/min/{1. 10:33 AM [facility] 73_m2} HOSPITAL Comment: Non GFR Calc Starting 06/02/2018, serum creatinine ba sed estimated GFR (eGFR) will be calculated using the Chronic Kidney Dise [place] Epidemiology Collaboration (CKD-EPI) equation. GFR Estimate If 87 >60 mL/min/{1.73_m2} 07/16/2020 10 :33 AM [facility] Comment: GFR Calc Starting 06/02/2018, serum creatinine ba sed estimated GFR (eGFR) will be calculated using the Chronic Kidney Dise [place] Epidemiology Collaboration (CKD-EPI) equation. Calcium 9.8 8.5 - 10.1 mg/dL 07/16/2020 10:33 AM [facility] Specimen Anatomical Collection Method Collection Time Receive d Time (Source) Location / / Volume Laterality Blood specimen 07/16/2020 10:03 1 (specimen) AM RESEARCH PSYCHOLOGIST 10:15 AM [facility] Marshal Sullivan DO LAB - BLOOD ORDERABLES Performing Organization Address City/State/ZIP Code Phon e Number M [facility] [address] [place], [place] [address] [facility] [address] [phone] CBC with platelets differential (07/16/2020 10:03 AM [facility]) [facility] Method Time Signature WBC 8.9 4.0 - 07/16/2020 [facility] 11.0 10:18 AM [facility] 10e9/L [facility] RBC Count 5.34 4.4 - 5.9 07/16/2020 [facility] 10e12/L 10:18 AM [facility] Hemoglobin 16.6 13.3 - 07/16/2020 [facility] 17.7 g/dL 10:18 AM [facility] Hematocrit 48.9 40.0 - 07/16/2020 [facility] 53.0 % 10:18 AM [facility] MCV 92 78 - 100 07/16/2020 [facility] fl 10:18 AM [facility] MCH 31.1 26.5 - 07/16/2020 [facility] 33.0 pg 10:18 AM [facility] MCHC 33.9 31.5 - 07/16/2020 [facility] 36.5 g/dL 10:18 AM [facility] RDW 12.4 10.0 - 07/16/2020 [facility] 15.0 % 10:18 AM [facility] Platelet Count 297 150 - 450 07/16/2020 [facility] 10e9/L 10:18 AM [facility] Diff Method Automated 07/16/2020 [facility] Method 10:18 AM [facility] % Neutrophils 53.0 % 07/16/2020 [facility] 10:18 AM [facility] % Lymphocytes 34.2 % 07/16/2020 [facility] 10:18 AM [facility] % Monocytes 11.9 % 07/16/2020 [facility] 10:18 AM [facility] % Eosinophils 0.2 % 07/16/2020 [facility] 10:18 AM [facility] % Basophils 0.4 % 07/16/2020 [facility] 10:18 AM [facility] % Immature 0.3 % 07/16/2020 [facility] Granulocytes 10:18 [facility] Nucleated RBCs 0 0 /100 07/16/2020 [facility] 10:18 AM [facility] Absolute 4.7 1.6 - 8.3 07/16/2020 [facility] Neutrophil 10e9/L 10:18 AM [facility] Absolute 3.0 0.8 - 5.3 07/16/2020 [facility] Lymphocytes 10e9/L 10:18 AM [facility] Absolute 1.1 0.0 - 1.3 07/16/2020 [facility] Monocytes 10e9/L 10:18 AM [facility] Absolute 0.0 0.0 - 0.7 07/16/2020 [facility] Eosinophils 10e9/L 10:18 AM [facility] Absolute 0.0 0.0 - 0.2 07/16/2020 [facility] Basophils 10e9/L 10:18 AM [facility] Abs Immature 0.0 0 - 0.4 07/16/2020 [facility] Granulocytes 10e9/L 10:18 AM [facility] Absolute 0.0 07/16/2020 [facility] Nucleated RBC 10:18 AM [facility] Specimen Anatomical Collection Method Collection Time Receive d Time (Source) Location / / Volume Laterality Blood specimen 07/16/2020 10:03 1 (specimen) AM RESEARCH PSYCHOLOGIST 10:15 AM RESEARCH PSYCHOLOGIST Marshal Sullivan DO LAB - BLOOD ORDERABLES Performing Organization Address City/State/ZIP Code Phon e Number M [place] [address] [place], [place] [address] [facility] [address] [place], [place] [address]33 [facility] [phone] documented in this encounter Visit Diagnoses Diagnosis Arm numbness left Disturbance of skin sensation Left leg numbness Disturbance of skin sensation documented in this encounter Administered Medications Inactive Administered Medications - up to 3 most recent administrations Medication Order MAR Action Action Date Dose Rate Site acetaminophen (TYLENOL) tablet Given 07/16/2020 12:02 PM RESEARCH PSYCHOLOGIST 650 mg 650 mg 650 mg, Oral, ONCE, On 07/16/20 at 1135, For 1 dose, Maximum acetaminophen dose from all sources = 75 mg/kg/day not to exceed 4 grams/day. gadobutrol (GADAVIST) injection 7.5 mL Given 07/16/2020 2:33 PM RESEARCH PSYCHOLOGIST 7.5 mLs 7.5 mL, Intravenous, ONCE, On 07/16/20 at 1415, For 1 dose LORazepam (ATIVAN) injection 1 mg Given 07/16/2020 1:00 PM RESEARCH PSYCHOLOGIST 1 mg 1 mg, Intravenous, ONCE PRN, anxiety, pre-MRI, Starting on 07/16/20 at 1155, For 1 dose, This drug may cause significant respiratory depression. Monitor respiratory status and vital signs carefully for 1 hour after each dose. morphine (PF) injection 4 mg Given 07/16/2020 12:32 PM RESEARCH PSYCHOLOGIST 4 mg 4 mg, Intravenous, ONCE, Administer over 4-5 Minutes, On 07/16/20 at 1220, For 1 dose, For ordered IV doses 0.1-15 mg give IV Push undiluted over 4-5 minutes. ondansetron (ZOFRAN) injection 4 mg Given 07/16/2020 10:59 AM RESEARCH PSYCHOLOGIST 4 mg 4 mg, Intravenous, ONCE, Administer over 2-5 Minutes, On 07/16/20 at 1055, For 1 dose, Irritant. For ordered IV doses 0.1-4 mg, give IV Push undiluted over 2-5 minutes. documented in this encounter Active and Recently Administered Medications Times are shown in RESEARCH PSYCHOLOGIST. Scheduled Medication Order 07/14/2020 07/15/2020 07/16/2020 acetaminophen (TYLENOL) tablet 650 mg (COMPLETED) 1202 (Given - Provider: Cassie Mcmullen RN) 650 mg, Oral, ONCE, 07/16/20 at 1135, For 1 dose, Maximum acetaminophen dose from all sources = 75 mg/kg/day not to exceed 4 grams/day. gadobutrol (GADAVIST) injection 7.5 mL (COMPLETED) 1433 (Given - Provider: Suzy Farias) 7.5 mL, Intravenous, ONCE, 07/16/20 at 1415, For 1 dose morphine (PF) injection 4 mg (COMPLETED) 1232 (Given - Provider: Cassie Mcmullen, CASH) 4 mg, Intravenous, ONCE, Administer over 4-5 Minutes, 07/16/20 at 1220, For 1 dose, For ordered IV doses 0.1-15 mg give IV Push undiluted over 4-5 minutes. ondansetron (ZOFRAN) injection 4 mg (COMPLETED) 1059 (Given - Provider: Cassie Mcmullen, RN) 4 mg, Intravenous, ONCE, Administer over 2-5 Minutes, 07/16/20 at 1055, For 1 dose, Irritant. For ordered IV doses 0.1-4 mg, give IV Push undiluted over 2-5 minutes. PRN Medication Order 07/14/2020 07/15/2020 07/16/2020 LORazepam (ATIVAN) injection 1 mg (COMPLETED) 1300 (Given - Provider: Cassie Mcmullen, RN) 1 mg, Intravenous, ONCE PRN, anxiety, pr e-MRI, Starting 07/16/20 at 1155, For 1 dose, This drug may cause significant respiratory depression. Monitor respiratory status and vital signs carefully for 1 hour after each dose. documented in this encounter Additional Health Concerns Assessment Noted Time PHQ-9 Depression Total Score: 0 05/10/2019 4:19 PM RESEARCH PSYCHOLOGIST documented as of this encounter Care Teams Food Consultant Relationship Specialty Start Date End Date Bella Sears MD PCP - General 07/16/20 07/23/20 [facility] [address] [place] [address] Bella Sears MD General Surgery 11/28/14 Tana Peña MD Plastic Surgery 10/30/[address] [place] [address] [facility] [address] [place] [address] Sofiya Keenan MD MD elementary esl teacher 01/11/[address] [place], [place] [phone] Debby Suggs SIGN CARPENTER SIGN CARPENTER Plastic Surgery 11/26/16 Aung Salinas MD MD Urology 05/04/18 [address] [place], [place] [phone] Dana Jane, CASH Registered Nurse Urology 05/04/18 01/15/22 Shahzad Sen MD MD Plastic Surgery 10/08/18 [facility] [address] [place] [address] [facility] Plastic Surgery 10/08/18 Coordinator Marce Gallardo MD Assigned PCP 11/04/19 07/29/20 [facility] [address] [place] [phone] documented as of this encounter
--- OUTSIDE RECORDS SUMMARY | 2022-04-12 08:17 | XMS_ITS | Encounter Summary ---
:1995 Author Organization [place] Address [address] [place] [address]. [place] [address] Care Team Providers Name Role Phone Bella Sears MD Unavailable Tana Peña MD Unavailable Sofiya Keenan MD Unavailable Debby Suggs LPN Unavailable Unavailable Aung Salinas MD Unavailable Dana Jane RN Unavailable Shahzad Sen MD Unavailable John Gresham Unavailable Beckie Cota MD Primary Care Provider Aung Salinas MD Unavailable Beckie Cota MD Unavailable Reason for Visit Reason Onset Date Comments Care Team 02/08/2021 Encounter Details Date Type Department Care Team Description 02/08/2021 Telephone [facility] Plastic and Jose Luis Luke Care Team [facility] [place] [phone] Social History Tobacco Use Types Packs/Day Years [...] this encounter Miscellaneous Notes Telephone Encounter - Jose Luis Luke - 02/08/2021 11:50 AM CDT Form Worker LVM for pt to confirm that PA for 2nd stage phalloplasty was being worked on. Form Worker let pt know that if he didn't hear from our team in 2-3 weeks to call back to check in. 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 documented as of this encounter Care Teams Slag Expander Relationship Specialty Start Date End Date Beckie Cota MD PCP - General Student in [facility] 12/13/20 04/03/21 [facility] Residency health care Program education/training [address] program [place], [place] [phone] Bella Sears, General Surgery 11/28/14 Tana Peña MD Plastic Surgery 10/30/[address] [place] [address] [address] [place], [place] [phone] Sofiya Keenan MD MD art glass designer 01/11/[address] [place], [place] [address] Debby Suggs LPN CANDLEMAKER Plastic Surgery 11/26/16 Aung Salinas MD MD Urology 05/04/18 [address] [place], [place] [phone] Dana Jane, CASH Registered Nurse Urology 05/04/18 01/15/22 Shahzad Sen MD MD Plastic Surgery 10/08/18 [facility] [address] [place] [address] John [facility] Specialty Care Plastic Surgery 10/08/18 Coordinator Aung Salinas MD Assigned Surgical 12/17/20 909 [facility] Provider [place], [place] [phone] Beckie Cota MD Assigned PCP 12/17/20 04/07/21 [facility] Residency Program [address] [place], [place] [phone] documented as of this encounter
--- OUTSIDE RECORDS SUMMARY | 2022-04-12 08:17 | XMS_ITS | Encounter Summary ---
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 documented as of this encounter Care Teams Concreter Relationship Specialty Start Date End Date Marce Gallardo MD PCP - General Family Medicine 07/24/20 12/12/[address] [place], [place] [phone] Bella Sears MD General Surgery 11/28/14 Tana Peañ MD Plastic Surgery 10/30/15 [address] [facility] [address] [place] [address] Sofiya Keenan MD MD science specialist 01/11/[address] [place], [place] [phone] Debby Suggs, PET CARE ATTENDANT PET CARE ATTENDANT Plastic Surgery 11/26/16 Aung Salinas MD MD Urology 05/04/18 [address] [place], [place] [phone] Dana Jane, RN Registered Nurse Urology 05/04/18 01/15/22 Shahzad Sen MD MD Plastic Surgery 10/08/18 [facility] [address] [place] [address] John Gresham Specialty Care Plastic Surgery 10/08/18 Coordinator Marce Gallardo MD Assigned PCP 11/19/20 12/16/20 [facility] [address] [place] [phone] documented as of this encounter
--- OUTSIDE RECORDS SUMMARY | 2022-04-12 08:17 | XMS_ITS | Encounter Summary ---
:1995 Author Organization [place] Address [address] [place] [address]. [place] [address] Care Team Providers Name Role Phone Bella Sears MD Unavailable Tana Peña MD Unavailable Sofiya Keenan MD Unavailable Debby Suggs LPN Unavailable Unavailable Aung Salinas MD Unavailable Dana Jane RN Unavailable Shahzad Sen MD Unavailable John Gresham Unavailable Beckie Cota MD Primary Care Provider Aung Salinas MD Unavailable Beckie Cota MD Unavailable Brenna Malcolm MD Primary Care Provider [phone] Marce Gallardo MD Unavailable Belkis Champion MD Unavailable Marce Gallardo MD Unavailable Encounter Details Date Type Department Care Team Description 03/15/2021 External Order [facility] Outside, Provide r Results Molecular Diagnostic s [address] [place] [phone] Social History Tobacco Use Types Packs/Day Years [...] Name Priority Date/Time Associated Diagnosis Comme nts COVID-19 VIRUS Routine 03/15/2021 2:46 PM Results for this (CORONAVIRUS) BY CDT procedure a re in PCR (EXTERNAL the results RESULT) section. documented in this encounter Results COVID-19 Virus (Coronavirus) by PCR (External Result) (03/15/2021 2:46 PM CDT) [facility] Method Time Signature COVID-19 Virus ABSENT ABSENT NON-INTERFACE by PCR SARSCoV2 D (ONBASE (External RNA SCANS) Result) Specimen (Source) Anatomical Collection Method Collection Time Re ceived Time Location / / Volume Laterality 03/15/2021 2:46 PM CDT Narrative [facility] - 03/22/2021 1:44 PM CDT Verified by Cristian Mar on 03/22/20 21. 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 documented as of this encounter Care Teams Toxicology Teacher Relationship Specialty Start Date End Date Beckie Cota MD PCP - General Student in organized 12/13/20 04/03/21 [facility] Residency health care Program education/training [address] [place] [address] Brenna Malcolm, PCP - General Family Medicine 04/04/21 [facility] [address] [place] [address] Bella Sears, General Surgery 11/28/14 Tana Peña MD Plastic Surgery 10/30/15 [address] [facility] [address] [place] [address] Sofiya Keenan MD MD market editor 01/11/[address] [place] [address] Debby Suggs LPN LINUX PROGRAMMER Plastic Surgery 11/26/16 Aung Salinas MD MD Urology 05/04/18 [address] [place] [address] Dana Jane, CASH Registered Nurse Urology 05/04/18 01/15/22 Shahzad Sen MD MD Plastic Surgery 10/08/18 [facility] [address] [place] [address] John Gresham Specialty Care Plastic Surgery 10/08/18 Coordinator Aung Salinas MD Assigned Surgical 12/17/20 909 [facility] Provider [place], [place] [phone] Beckie Cota MD Assigned PCP 12/17/20 04/07/21 [facility] Residency Program [address] [place], [place] [phone] Marce Gallardo MD Assigned PCP 04/08/21 06/30/21 [facility] [address] [place] [address] Belkis Champion MD Assigned PCP 07/01/21 01/18/[address] [place], [place] [phone] Marce Gallardo MD Assigned PCP 01/19/22 [facility] [id number] [place] [phone] documented as of this encounter
--- OUTSIDE RECORDS SUMMARY | 2022-04-12 08:17 | XMS_ITS | Encounter Summary ---
:1995 Author Organization [place] Address [address] [place] [address]. [place] [address] Care Team Providers Name Role Phone Bella Sears MD Unavailable Tana Peña MD Unavailable Sofiya Keenan MD Unavailable Debby Suggs LPN Unavailable Unavailable Aung Salinas MD Unavailable Dana Jane RN Unavailable Shahzad Sen MD Unavailable John Gresham Unavailable Marce Gallardo MD Primary Care Provider Darcy Jackson DO Unavailable Reason for Visit Reason Onset Date Comments external referral 11/14/2020 Encounter Details Date Type Department Care Team Description 11/14/2020 Telephone [facility] referral [facility] Eugenio Hunt, PhD [facility] [address] [phone] [address] [phone] [place] [address] (Wo rk) Social History Tobacco Use Types [...] this encounter Miscellaneous Notes Telephone Encounter - Marry Michael - 11/16/2020 4:11 PM CDT Reached Patient and discussed options for ADHD evaluation. They requested a letter be sent with the information. Letter Sent Telephone Encounter - Marry Michael - 11/15/2020 9:41 AM CDT Attempted to reach, LVM with Main Clinic Phone number. Telephone Encounter - Marilee Johnston, PhD - 11/14/2020 3:22 PM CDT Referral for adult ADHD evaluation: Please provide patient with the following information: [facility] [address] [facility] [address] [place] [address] [facility] [address] [facility] [address] [place] [address] Natalis [address] [facility] [address] [place] [address] [facility] Location [address] [place], [place] [phone] [facility] [address] [facility] [address] [place], [place] [phone] Please document when patient is given this information and close this note. Thank you. 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 documented as of this encounter Care Teams [place] Maker Hand Relationship Specialty Start Date End Date Marce Gallardo MD PCP - General Family Medicine 07/24/20 12/12/[address] [place] [place], [place] [phone] Bella Sears MD General Surgery 11/28/14 Tana Peña MD Plastic Surgery 10/30/15 [address] [facility] [address] [place], [place] [phone] Sofiya Keenan MD MD mining technician 01/11/[address] [place], [place] [phone] Debby Suggs, IMAGING MANAGER IMAGING MANAGER Plastic Surgery 11/26/16 Aung Salinas MD MD Urology 05/04/18 [address] [place], [place] [phone] Dana Jane, CASH Registered Nurse Urology 05/04/18 01/15/22 Shahzad Sen MD MD Plastic Surgery 10/08/18 [facility] [address] [place] [address] John Gresham Specialty Care Plastic Surgery 10/08/18 Coordinator Darcy Jackson, DO Assigned PCP 11/09/20 11/18/[address] [place] [place], [place] [phone] documented as of this encounter
--- OUTSIDE RECORDS SUMMARY | 2022-04-12 08:17 | XMS_ITS | Encounter Summary ---
:1994 Author Organization [place] Address [address] [place] [address] Care Team Providers Name Role Phone Bella Sears MD Unavailable Tana Peña MD Unavailable Sofiya Keenan MD Unavailable Debby Suggs LPN Unavailable Unavailable Aung Salinas MD Unavailable Dana Jane RN Unavailable Shahzad Sen MD Unavailable John Gresham Unavailable Marce Gallardo MD Primary Care Provider Darcy Jackson DO Unavailable Encounter Details Date Type Department Care Team Description 11/10/2020 Travel Social History Tobacco Use Types Packs/Day [...] Depression Total Score: 0 05/10/2019 4:19 PM SWAGING 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 documented as of this encounter Care Teams Blending Supervisor Relationship Specialty Start Date End Date Marce Gallardo MD PCP - General Family Medicine 07/24/20 12/12/202019 [address] [place], [place] [phone] Bella Sears MD General Surgery 11/28/14 Tana Peña MD Plastic Surgery 10/30/15 [address] [place] [address] Sofiya Keenan MD MD hide dropper 01/11/[address] [place], [place] [phone] Debby Suggs LPN MECHANICAL TECHNICAL SERVICE SPECIALIST Plastic Surgery 11/26/16 Aung Salinas MD MD Urology 05/04/18 [address] [place], [place] [phone] Dana Jane, CASH Registered Nurse Urology 05/04/18 01/15/22 Shahzad Sen MD MD Plastic Surgery 10/08/18 [facility] [address] [place] [address] John Gresham Specialty Care Plastic Surgery 10/08/18 Coordinator Darcy Jackson, DO Assigned PCP 11/09/20 11/18/202019 [address] [place], [place] [phone] documented as of this encounter
--- OUTSIDE RECORDS SUMMARY | 2022-04-12 08:17 | XMS_ITS | Encounter Summary ---
:1994 Author Organization [place] Address [address] [place] [address] Care Team Providers Name Role Phone Bella Sears MD Unavailable Tana Peña MD Unavailable Sofiya Keenan MD Unavailable Debby Suggs LPN Unavailable Unavailable Aung Salinas MD Unavailable Dana Jane RN Unavailable Shahzad Sen MD Unavailable John Gresham Unavailable Marce Gallardo MD Primary Care Provider Marce Gallardo MD Unavailable Encounter Details Date Type Department Care Team Description 04/19/2020 Travel Social History Tobacco Use Types Packs/Day [...] with No / Unsure 04/19/2020 10:42 AM ASPHALT MIXER someone who was confirmed or suspected to [...] Depression Total Score: 0 05/10/2019 4:19 PM ASPHALT MIXER documented as of this encounter Care Teams Offensive Coordinator Relationship Specialty Start Date End Date Marce Gallardo MD PCP - General Student in [facility] 05/17/19 07/15/20 [address] [place] [address] education/training program Bella Sears, General Surgery 11/28/14 Tana Peña MD Plastic Surgery 10/30/15 [address] [facility] [address] [place] [address] Sofiya Keenan MD MD life skills trainer 01/11/[address] [place] [address] Debby Suggs LPN WARP KNITTING MACHINE OPERATOR Plastic Surgery 11/26/16 Anug Salinas MD MD Urology 05/04/18 909 [place] [address] Dana Jane, CASH Registered Nurse Urology 05/04/18 01/15/22 Shahzad Sen MD MD Plastic Surgery 10/08/18 [facility] [address] [place] [address] John Gresham Specialty Care Plastic Surgery 10/08/18 Coordinator Marce Gallardo MD Assigned PCP 11/04/19 07/29/20 [facility] [address] [place] [phone] documented as of this encounter
--- OUTSIDE RECORDS SUMMARY | 2022-04-12 08:17 | XMS_ITS | Encounter Summary ---
:1994 Author Organization [place] Address [address] [place] [address]. [place] [address] Care Team Providers Name Role Phone Bella Sears MD Unavailable Tana Peña MD Unavailable Sofiya Keenan MD Unavailable Debby Suggs LPN Unavailable Unavailable Aung Salinas MD Unavailable Dana Jane RN Unavailable Shahzad Sen MD Unavailable John Gresham Unavailable Marce Galladro MD Unavailable Marce Gallardo MD Primary Care Provider Reason for Visit Reason Onset Date Comments Refill Request 11/01/2020 testosterone cypion ate (DEPOTESTOSTERONE) 200 MG/ML injection Encounter Details Date Type Department Care Team Description 11/01/2020 [facility] Marce Gallardo MD Refill Request ( [facility] testosterone cypionate [address] [place] [address] (DEPOTESTOSTERONE) [phone] MG/ML injection) [place] [phone] (Wo rk) Social History Tobacco Use Types Packs/Day Years Used Date Smoking Tobacco: Former Cigarettes 0.3 Quit : 09/14/2016 Smokeless Tobacco: Never Alcohol Use Standard Drinks/Week Comments Yes 0 (1 standard drink = 0.6 oz pure alcoho l) rarely Sex Assigned at Date Recorded Female 03/20/2020 2:05 PM CDT documented as of this encounter Miscellaneous Notes Telephone Encounter - Pauline Holliday RN - 11/01/2020 1:31 PM CDT RN received message that pharmacy messed up medication. RN called pharmacy and and pharmacy staff stated patient picked up medication yesterday. Attempted to call patient, invalid number in chart. RN received correct phone number, called patient, and patient stated there weren't any issues for RNto address and that he made an appointment to talk with his PCP. Pauline Holliday RN Telephone Encounter - Nathanael September - 11/01/2020 1:25 PM CDT Verify that the refill encounter hasn't been started Yes [facility] Family Medicine phone call message- patient requesting a refill: Full Medication Name: testosterone cypionate (DEPOTESTOSTERONE) 200 MG/ML injection Dose: Route: Inject 0.3 mLs (60 mg) into the muscle once a week Supply accounts for single-use vials- Intramuscular Pharmacy confirmed as [facility] - [address] [address] : Yes Medication tab checked to see if medication has been sent Yes Additional Comments: Patient said the pharmacy messed up his prescription. OK to leave a message on voice mail? Yes Advised patient refill may take up to 2 business days? Yes Primary language: Libyan Cloth Washer needed? 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 documented as of this encounter Visit Diagnoses Not on filedocumented in this encounter Additional Health Concerns Assessment Noted Time PHQ-9 Depression Total Score: 0 05/10/2019 4:19 PM PAINTING MACHINE OPERATOR documented as of this encounter Care Teams Carburetor Expert Relationship Specialty Start Date End Date Marce Gallardo MD PCP - General Family Medicine 07/24/20 12/12/[address] [place], [place] [phone] Bella Sears MD General Surgery 11/28/14 Tana Peña MD Plastic Surgery 10/30/15 [address] [place] [address] Sofiya Keenan MD MD metal riveter 01/11/[address] [place], [place] [phone] Debby Suggs, RECEIPT AND REPORT CLERK RECEIPT AND REPORT CLERK Plastic Surgery 11/26/16 Aung Salinas MD MD Urology 05/04/18 [address] [place], [place] [phone] Dana Jane, CASH Registered Nurse Urology 05/04/18 01/15/22 Shahzad Sen MD MD Plastic Surgery 10/08/18 [facility] [address] [place] [address] John Gresham Specialty Care Plastic Surgery 10/08/18 Coordinator Marce Gallardo MD Assigned PCP 07/30/20 11/08/20 [facility] [id number] [place] [phone] documented as of this encounter
--- OUTSIDE RECORDS SUMMARY | 2022-04-12 08:17 | XMS_ITS | Encounter Summary ---
:1994 Author Organization [place] Address [address] [place] [address]. [place] [address] Care Team Providers Name Role Phone Bella Sears MD Unavailable Tana Peña MD Unavailable Sofiya Keenan MD Unavailable Debby Suggs LPN Unavailable Unavailable Aung Salinas MD Unavailable Dana Jane RN Unavailable Shahzad Sen MD Unavailable John Gresham Unavailable Beckie Cota MD Primary Care Provider Aung Salinas MD Unavailable Beckie Cota MD Unavailable Reason for Visit Reason Onset Date Comments Schedule Surgery 03/14/2021 Scheduling Encounter Details Date Type Department Care Team Description 03/14/2021 Telephone [facility] Aung Salinas [facility] U[facility] Clinic (Scheduling) [address] [place] [address] [phone] [address] (Work) [phone] Social History Tobacco Use Types Packs/Day Years [...] this encounter Miscellaneous Notes Telephone Encounter - Jo Ann Clemons - 03/14/2021 4:16 PM CDT Tier 3 Case Request received to schedule: URETHROPLASTY, STAGE 2 On 03/14/2021: Left vm msg for return call regarding scheduling. Will offer 04/16/2021. URETHROPLASTY, STAGE 2 Patient is scheduled for surgery with Dr. Aung Salinas Spoke with: Pablo Date of Surgery: Friday03/19/2021 Location: [facility] Informed patient they will need an adult trencher driver YES Pre op with Provider Dr. Salinas 12/12/2020 at 1:40 PM H&P: Scheduled with PCP at [facility] on 03/15 at 2:30 PM Pre-procedure COVID-19 Test: at [facility] on 03/15 at 2:30 PM* *May need COVID test orders faxed? 2-3 wk post-op: with Dr. Salinas 04/11/2021 at 8:15 AM Surgery packet: will send per Urology Protocol Procedure name(s)- multi select: Second Stage Urethroplasty Is this a multi surgeon case?: No Laterality: none Explant?: No Reason for procedure: Urethral Stricture Urgency of Surgery: elective Location of Case: [facility] Surgeon Procedure Time (incision to closure) in Minutes (per procedure as applicable): 60 Patient Class (for admit prior to surgery, specify Number of days in comments): Outpatient Anesthesia: General Patient Positioning: Supine H&P to be Completed By: PCP Preparation Department Supervisor Needed?: No Post-Op Appointment: 2-3 weeks postop in clinic Vendor Needed: No This is not a usual second stage urethroplasty. 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 documented as of this encounter Visit Diagnoses Not on filedocumented in this encounter Additional Health Concerns Assessment Noted Time PHQ-9 Depression Total Score: 0 05/10/2019 4:19 PM FOUNDATION RELATIONS DIRECTOR documented as of this encounter Care Teams Mechanics Supervisor Relationship Specialty Start Date End Date Beckie Cota MD PCP - General Student in organized 12/13/20 04/03/21 [facility] education/training [address] program [place], [place] [phone] Bella Sears, General Surgery 11/28/14 Tana Peña MD Plastic Surgery 10/30/[address] [place], [place] [address] Sofiya Keenan MD MD plywood scarfer tender 01/11/[address] [place], [place] [address] Debby Suggs, COMBINATION TECHNICIAN COMBINATION TECHNICIAN Plastic Surgery 11/26/16 Aung Salinas MD MD Urology 05/04/18 [address] [place], [place] [address] Dana Jane, CASH Registered Nurse Urology 05/04/18 01/15/22 Shahzad Sen MD MD Plastic Surgery 10/08/18 [facility] [address] [place] [address] John Gresham Specialty Care Plastic Surgery 10/08/18 Coordinator Aung Salinas MD Assigned Surgical 12/17/20 [address] [facility] Provider [place], [place] [address] Beckie Cota MD Assigned PCP 12/17/20 04/07/21 [facility] Residency [facility] [address] [place], [place] [phone] documented as of this encounter
--- OUTSIDE RECORDS SUMMARY | 2022-04-12 08:17 | XMS_ITS | Encounter Summary ---
:1994 Author Organization [place] Address [address] [place] [address]. [place] [address] Care Team Providers Name Role Phone Bella Sears MD Unavailable Tana Peña MD Unavailable Sofiya Keenan MD Unavailable Debby Suggs LPN Unavailable Unavailable Aung Salinas MD Unavailable Dana Jane RN Unavailable Shahzad Sen MD Unavailable John Gresham Unavailable Beckie Cota MD Primary Care Provider Aung Salinas MD Unavailable Beckie Cota MD Unavailable Brenna Malcolm MD Primary Care Provider [phone] Marce Gallardo MD Unavailable Reason for Visit Reason Onset Date Comments Appointment 03/15/2021 Urine Culture Lab ne eded Encounter Details Date Type Department Care Team Description 03/15/2021 Telephone [facility] Aung Salinas Appoin tment (Urine Urology Clinic Culture Lab needed) [address] 4[address] Floor [address] [place], [place] [phone] [address] (Work) [phone] Social History Tobacco Use Types Packs/Day Years [...] Telephone Encounter - Jo Ann Clemons - 03/15/2021 10:13 AM CDT Per fellow Urology Mallorie-op Coordinator Erika, patient will need a Urine Culture Lab drawn ahead ofthe procedure with Dr. Salinas on 03/19/2021. Pablo has clinic appts with PCP today. Left ms for patient requesting a return call regarding something to ask his PCP to do today. 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 documented as of this encounter Visit Diagnoses Not on filedocumented in this encounter Additional Health Concerns Assessment Noted Time PHQ-9 Depression Total Score: 0 05/10/2019 4:19 PM RAIL MAINTENANCE WORKER documented as of this encounter Care Teams Legal Document Assistant Relationship Specialty Start Date End Date Beckie Cota MD PCP - General Student in organized 12/13/20 04/03/21 [facility] Residency health care Program education/training [address] [place] [address] Brenna Malcolm, PCP - General Family Medicine 04/04/21 [facility] [address] [place] [address] Bella Seasr, General Surgery 11/28/14 Tana Peña MD Plastic Surgery 10/30/15 [address] [place] [address] [place] [address] Sofiya Keenan MD MD bull float finisher 01/11/[address] [place] [address] Debby Suggs RIG SUPERINTENDENT RIG SUPERINTENDENT Plastic Surgery 11/26/16 Aung Salinas MD MD Urology 05/04/18 [address] [place] [address] Dana Jane, CASH Registered Nurse Urology 05/04/18 01/15/22 Shahzad Sen MD MD Plastic Surgery 10/08/18 [facility] [address] [place] [address] John Gresham Specialty Care Plastic Surgery 10/08/18 Coordinator Aung Salinas MD Assigned Surgical 12/17/20 909 [facility] [place] [address] Beckie Cota MD Assigned PCP 12/17/20 04/07/21 [facility] Residency Program [address] [place], [place] [phone] Marce Gallardo MD Assigned PCP 04/08/21 06/30/21 [facility] [address] [place] [address] documented as of this encounter
--- OUTSIDE RECORDS SUMMARY | 2022-04-12 08:18 | XMS_ITS | Encounter Summary ---
:1994 Author Organization [place] Address [address] [place] [address] Care Team Providers Name Role Phone Bella Sears MD Unavailable Tana Peña MD Unavailable Sofiya Keenan MD Unavailable Miguelina Wise DO Primary Care Provider [phone] Debby Suggs LPN Unavailable Unavailable Aung Salinas MD Unavailable Dana Jane RN Unavailable Reason for Visit Reason Onset Date Comments Appointment 05/21/2018 Encounter Details Date Type Department Care Team Description 05/21/2018 Telephone [facility] and Odalis Joyce RN Ap pointment Reconstructive Surge ry [address] [place] [address] [phone] Social History Tobacco Use Types Packs/Day Years Used Date Smoking Tobacco: Former Cigarettes 0.3 Quit : 09/14/2016 Smokeless Tobacco: Never Alcohol Use Standard Drinks/Week Comments Yes 0 (1 standard drink = 0.6 oz pure alcoho l) rarely Sex Assigned at Date Recorded Female 03/20/2020 2:05 PM CDT documented as of this encounter Miscellaneous Notes Telephone Encounter - Odalis Kerr LPN - 05/22/2018 3:50 PM CST Attempt to call patient again to schedule appt with Dr. Sen, no answer, LM with direct number to call back to schedule. Estelita Hopkins LPN SLATIVE ADVOCATE Telephone Encounter - Odalis Kerr LPN - 05/21/2018 11:59 AM CST Attempt to call patient to schedule appt with Dr. Sen, no answer, LM for patient with direct number to call back to schedule. Estelita Hopkins LPN SLATIVE ADVOCATE Telephone Encounter - Odalis Kerr LPN - 05/21/2018 11:59 AM CST Called patient, scheduled for 07/07/18 @ 6:15pm. Confirmed date/time/location with patient. Estelita Hopkins LPN SLATIVE ADVOCATE 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 documented as of this encounter Visit Diagnoses Not on filedocumented in this encounter Additional Health Concerns Assessment Noted Time PHQ-9 Depression Total Score: 0 01/11/2017 7:28 AM CDT documented as of this encounter Care Teams Knitting Machine Fixer Head Relationship Specialty Start Date End Date Miguelina Wise, LILIBETH - General Student in [facility] 12/13/16 01/11/19 [facility] education/training program Bella Sears MD General Surgery 11/28/14 Tana Peña MD Plastic Surgery 10/30/[address] [place] [address] [address] [place] [address] Sofiya Keenan MD MD pot holder binder 01/11/[address] [place] [address] Debby Suggs LPN LPN Plastic Surgery 11/26/16 Aung Salinas MD MD Urology 05/04/18 [address] [place] [address] Dana Jane RN Registered Nurse Urology 05/04/18 01/15/22 documented as of this encounter
--- OUTSIDE RECORDS SUMMARY | 2022-04-12 08:18 | XMS_ITS | Encounter Summary ---
:1994 Author Organization [place] Address [address] [place] [address] Care Team Providers Name Role Phone Bella Sears MD Unavailable Tana Peña MD Unavailable Sofiya Keenan MD Unavailable Debby Suggs LPN Unavailable Unavailable Aung Salinas MD Unavailable Dana Jane RN Unavailable Shahzad Sen MD Unavailable John Gresham Unavailable Marce Gallardo MD Primary Care Provider Marce Gallardo MD Unavailable Encounter Details Date Type Department Care Team Description 03/20/2020 Travel Social History Tobacco Use Types Packs/Day [...] been in contact with No / Unsure 03/20/2020 1:01 PM CDT someone who was confirmed or [...] Depression Total Score: 0 05/10/2019 4:19 PM 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 documented as of this encounter Care Teams Marine Services Technician Relationship Specialty Start Date End Date Marce Gallardo MD PCP - General Student in [facility] 05/17/19 07/15/20 [address] [place] [address] education/training program Bella Sears, General Surgery 11/28/14 Tana Peña MD Plastic Surgery 10/30/15 [address] [facility] [address] [place] [address] Sofiya Keenan MD MD rail washer 01/11/[address] [place] [address] Debby Suggs, GRINDER LAP GRINDER LAP Plastic Surgery 11/26/16 Aung Salinas MD MD Urology 05/04/18 [address] [place] [address] Dana Jane, RN Registered Nurse Urology 05/04/18 01/15/22 Shahzad Sen MD MD Plastic Surgery 10/08/18 [facility] [address] [place] [address] John Gresham Specialty Care Plastic Surgery 10/08/18 Coordinator Marce Gallardo MD Assigned PCP 11/04/19 07/29/20 [facility] [address] [place] [phone] documented as of this encounter
--- OUTSIDE RECORDS SUMMARY | 2022-04-12 08:18 | XMS_ITS | Encounter Summary ---
:1994 Author Organization [place] Address [address] [place] [address]. [place] [address] Care Team Providers Name Role Phone Bella Sears MD Unavailable Tana Peña MD Unavailable Sofiya Keenan MD Unavailable Miguelina Wise DO Primary Care Provider [phone] Debby Suggs LPN Unavailable Unavailable Aung Salinas MD Unavailable Dana Jane RN Unavailable Reason for Visit Reason Onset Date Comments Call Back 05/29/2018 Frequent Bladder Inf ections Encounter Details Date Type Department Care Team Description 05/29/2018 Telephone [facility]rology and Aung Salinas Cal l Back (Frequent Inst for Prostate and MD Bladder Infections) Urologic Cancers [address] [facility] [address] [place], [place] [address]th Floor [address] [place] [address] [phone] [address] (Work) [phone] Social History Tobacco Use Types Packs/Day Years Used Date Smoking Tobacco: Former Cigarettes 0.3 Quit : 09/14/2016 Smokeless Tobacco: Never Alcohol Use Standard Drinks/Week Comments Yes 0 (1 standard drink = 0.6 oz pure alcoho l) rarely Sex Assigned at Date Recorded Female 03/20/2020 2:05 PM CDT documented as of this encounter Miscellaneous Notes Telephone Encounter - Estrada OriflaquitaSean Fernandes, FLAVORING MACHINE OPERATOR - 06/03/2018 9:19 AM FOUNTAIN MANAGER Patient did not go to a [place] clinic to leave an urine specimen for his UA/UC orders. Bela Dorado MA TAIN MANAGER Telephone Encounter - Bela Dorado CMA - 06/01/2018 11:57 AM FOUNTAIN MANAGER Message left for patient to please give us a call to see if went somewhere outside of the [place] to have his UA/UC done. Or to let us know if his symptoms got better or not. Bela Dorado MA TAIN MANAGER Telephone Encounter - Bela Dorado CMA - 06/01/2018 8:51 AM FOUNTAIN MANAGER Johnny Cortez, have you receive any UA/UC results for this patient? Message forward to Dr. Salinas RNCC Dana Jane/Magdalene Sue. Bela Dorado MA TAIN MANAGER Telephone Encounter - Bela Dorado CMA - 05/29/2018 4:19 PM FOUNTAIN MANAGER I spoke to patient to let him know that I placed UA/UC orders in his chart. Patient will contact hisclinic to have them fax his previous UA/UC test results to [phone]- so they can be placed in his chart for Dr. Salinas can review- if needed. Patient will go to a [place] clinic to leave specimen for UA/UC. Blea Dorado MA TAIN MANAGER Telephone Encounter - Bella Flores - 05/29/2018 3:56 PM CST [facility] Call Center Phone Message May a detailed message be left on voicemail: yes Reason for Call: Other: Pt calling to talk to Dr. Salinas about the frequent bladder infections thathe has been experiencing. He has been going to the ED to get checked out and he said that they just keep giving him medication that isn't working. He wants to know if this is normal and what he should do, please call pt back to advise. 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 documented as of this encounter Visit Diagnoses Diagnosis Urinary tract infection without hematuri a, site unspecified - Primary documented in this encounter Additional Health Concerns Assessment Noted Time PHQ-9 Depression Total Score: 0 01/11/2017 7:28 AM CDT documented as of this encounter Care Teams Valve Pipe Irrigator Relationship Specialty Start Date End Date Miguelina Wise, PCP - General Student in [facility] 12/13/16 01/11/19 health care education/training program Bella Sears MD General Surgery 11/28/14 Tana Peña MD Plastic Surgery 10/30/[address] [place] [address] [address] [place] [address] Sofiya Keenan MD MD ballet professor 01/11/[address] [place], [place] [phone] Debby Suggs LPN STRIPPING SHOVEL OILER Plastic Surgery 11/26/16 Aung Salinas MD MD Urology 05/04/18 [address] [place] [address] Dana Jane, RN Registered Nurse Urology 05/04/18 01/15/22 documented as of this encounter
--- OUTSIDE RECORDS SUMMARY | 2022-04-12 08:18 | XMS_ITS | Encounter Summary ---
:1995 Author Organization [facility] Address [address] [place] [address]. [place] [address] Care Team Providers Name Role Phone Bella Sears MD Unavailable Tana Peña MD Unavailable Sofiya Keenan MD Unavailable Debby Suggs LPN Unavailable Unavailable Aung Salinas MD Unavailable Dana Jane RN Unavailable Shahzad Sen MD Unavailable John Gresham Unavailable Seun Valladares MD Primary Care Provider [phone] Encounter Details Date Type Department Care Team Description 05/10/2019 Travel Social History Tobacco Use Types Packs/Day [...] Depression Total Score: 0 05/10/2019 4:19 PM PLY CUTTER documented as of this encounter Care Teams Straight Truck Driver Relationship Specialty Start Date End Date Seun Valladares PCP - General Student in organized 01/24/19 9 [facility] [address] education/training [address] program [place], [place] [id number] Bella Sears, General Surgery 11/28/14 Tana Peña MD Plastic Surgery 10/30/[address] [place] [address] Sofiya Keenan MD MD outbound sales professional 01/11/[address] [place] [address] Debby Suggs, PROCESS AUTOMATION ENGINEER PROCESS AUTOMATION ENGINEER Plastic Surgery 11/26/16 Aung Salinas MD MD Urology 05/04/18 [address] [place] [address] Dana Jane, CASH Registered Nurse Urology 05/04/18 01/15/22 Shahzad Sen MD MD Plastic Surgery 10/08/18 [facility] [address] [place], [place] [id number] John Gresham [facility] Plastic Surgery 10/08/18 Coordinator documented as of this encounter
--- OUTSIDE RECORDS SUMMARY | 2022-04-12 08:18 | XMS_ITS | Encounter Summary ---
:1995 Author Organization [facility] Address [address] [place] [address] Care Team Providers Name Role Phone Bella Sears MD Unavailable Tana Peña MD Unavailable Sofiya Keenan MD Unavailable Debby Suggs LPN Unavailable Unavailable Aung Salinas MD Unavailable Dana Jane RN Unavailable Shahzad Sen MD Unavailable John Gresham Unavailable Marce Gallardo MD Primary Care Provider Marce Gallardo MD Unavailable Reason for Referral EDUIN Physical Therapy (Routine) - Closed Specialty Diagnoses / Procedures Referred By Contact Refer red To Contact Diagnoses Sprain of anterior talofibular ligament of left ankle, initial encounter Marce Gallardo MD [address] [place], [place] [address] Referral ID Status Reason Start Date Expiration Date Visits Requ ested Visits Authorized [id number] Closed 03/20/2020 03/20/2021 1 1 Reason for Visit Reason Comments RECHECK HRT-Testosterone refill Encounter Details Date Type Department Care Team Description 03/20/2020 Office Visit [facility] Marce Gallardo MD Gender dysphoria in adult (Primary Dx); Clinic [facility] Sprain of anterior talofibul ar ligament of left ankle, initial encounter; 2019 [facility] Mixed hyperlipidemia; [address] CLINIC Elevated BP without diagnosis of hyperte nsion; [place] [address] [facility] Hypertriglyceridemia; [address] [place], [place] Hypercholesteremia; [phone] [address] Healthcare maintenance Social History Tobacco Use Types Packs/Day Years [...] Sign Reading Time Taken Comments Blood Pressure 133/86 03/20/2020 1:25 PM CDT Pulse 87 03/20/2020 1:25 PM CDT Temperature 37.1 ??C (98.7 ??F) 03/20/2020 1:25 PM CDT Respiratory Rate 16 03/20/2020 1:25 PM CDT Oxygen Saturation 97% 03/20/2020 1:25 PM CDT Inhaled Oxygen Concentration - - Weight 83 kg (183 lb) 03/20/2020 1:25 PM CDT Height - - Body Mass Index 30.45 05/10/2019 2:00 PM AIR HOSE COUPLER documented in this encounter Patient Instructions Patient InstructionsMarce Gallardo MD - 03/20/2020 1:20 PM CDT High blood pressure, discuss this with your primary doctor Some online resources for transgender health [place] [facility] Home to the [facility] at [address] [facility], . Also has support groups. http://www.[place]transhealth.org/ [facility] Transgender [facility] Increasing access to comprehensive, effective, and affirming healthcare services for trans and gender-variant communities. http://www.transhealth.[facility].edu/trans?page= Safe, gender-neutral public restrooms in [facility] http://www.altranshealth.org//index.php?option=com_content&task=view&id=12&Itemi d Trans Youth Support Network For people 26 and under who identify as a trans or gender non-conforming person and want to be a part of an activist organization. Offers peer support, education and community building opportunities. ht tp://www.transyouthsupportnetwork.org/ Reclaim: RECLAIM offers mental and integrative health services for LGBTQ youth and their families. http://www.reclaim-lgbtyouth.org/ Gender Spectrum, for Trans Youth Gender Spectrum provides education, training and support to help create a gender sensitive and inclusive environment for all children and teens. http://www.genderspectrum.org/ Parikh???s FTM Resource Guide Information on topics of interest to ktijvq-yv-iuzn (FTM, F2M) trans men, and their friends and loved ones. http://Skycure.org/ Also check out your local Quarter[employer]oter resource center! LGBTQIA Services at [facility]: http://www.[facility]/lgbtqia/ LGBTQ@[facility]: http://www.[facility]/multiculturallife/lgbtq/ GLBTA Programs office at of : https://diversity.[facility].edu/glbta/ documented in this encounter Progress Notes Marce Gallardo MD - 03/20/2020 1:20 PM CDT HPI Pablo is a 23 year old individual that uses pronouns He/Him/His/Himself that presents today for follow up of: masculinizing hormone therapy. Gender identity: male h/o bottom surgery with many complications. Follow-up with surgeon: testicle implant 08/2019, awaiting pump. 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 Has a onsite case manager Regarding hormones, has been on for 4 years, on subQ T (this is working much better than IM) On hormones? Taking T 60 mg subQ- last injection +++ Shot day of the week? Friday (missed last week) Due for labs? Yes +++ Refills of meds needed? Yes Has a therapist: insurance change, needs a new therapist (getting referrals from his therapist) Primary provider in [place], depression meds, high blood pressure Fell on ankle in the summer, still hurting. Severe for months. Twisted in. Big and swollen. Able to walk a little, since then walking okay, but sometimes pain on outside. --- Past Surgical History: Procedure Laterality Date ??? COLONOSCOPY ??? gender confirmation bottom surgery gender confirmation surgery with creation of neophallus and neoscrotum in [place]. c/b urethra reconstruction and take-down ??? HYSTERECTOMY TOTAL ABDOMINAL, BILATERAL SALPINGO-OOPHORECTOMY, COMBINED Bilateral 03/12/2016 Procedure: COMBINED HYSTERECTOMY TOTAL ABDOMINAL, SALPINGO-OOPHORECTOMY; Surgeon: Sofiya Keenan MD; Location: [facility] OR ??? TRANSGENDER MASTECTOMY Bilateral 11/27/2016 Procedure: TRANSGENDER MASTECTOMY; Bilateral Subcutaneous Mastectomies, Nipple Grafts OnQ; Surgeon:Tana Peña MD; Location: [facility] OR ??? wisdom teeth removed Patient Active Problem List Diagnosis ??? Bipolar affective disorder (H) ??? HSV (herpes simplex virus) infection ??? Gender dysphoria ??? History of psychiatric hospitalization ??? Personal history of tobacco use, presenting hazards to health ??? Acne vulgaris ??? Migraine headache ??? Mixed hyperlipidemia ??? Autism ??? S/P hysterectomy ??? Status post SHADY-BSO ??? Hepatic steatosis Current Outpatient Medications Medication Sig Dispense Refill ??? albuterol (PROAIR HFA/PROVENTIL HFA/VENTOLIN HFA) 108 (90 BASE) MCG/ACT Inhaler Inhale 2 puffs into the lungs ??? ALBUTEROL IN Inhale 2 puffs into the lungs ??? atorvastatin (LIPITOR) 40 MG tablet Take 0.5 tablets (20 mg) by mouth daily 90 tablet 3 ??? celecoxib (CELEBREX) 200 MG capsule Take 200 mg by mouth daily ??? desvenlafaxine (PRISTIQ) 50 MG 24 hr tablet Take 50 mg by mouth daily 0 ??? gabapentin (NEURONTIN) 300 MG capsule Take 600 mg by mouth ??? needle, disp, 18G X 1 MISC Use to draw up hormones once weekly 25 each 3 ??? Needle, Disp, 27G X 5/8 MISC Use once weekly for administering hormone IM 25 each 3 ??? syringe, disposable, 1 ML MISC Use [...] tablet Take 1 tablet by mouth ??? FLUTICASONE PROPIONATE, NASAL, NA [place] 1 spray in nostril 2 times daily ??? HYDROcodone-acetaminophen (NORCO) 10-325 MG per tablet Take 1 tablet by mouth every 4 hours as needed for severe pain ??? montelukast (SINGULAIR) 10 MG tablet Take 10 mg by mouth At Bedtime ??? TEMAZEPAM PO Take 15 mg by mouth nightly as needed for sleep 1-2 tabs ??? vitamin D3 (CHOLECALCIFEROL) 2000 units tablet Take 1 tablet by mouth daily (Patient not taking:Reported on 03/20/2020) 100 tablet 3 History Smoking Status ??? Former Smoker ??? Packs/day: 0.25 ??? Types: Cigarettes ??? Quit date: 09/14/2016 Smokeless Tobacco ??? Never Used No Known Allergies Problem, Medication and Allergy Lists were reviewed and are current.. Review of Systems: General ?? Fat redistribution: no ?? Weight change: no HEENT ?? Voice change: YES, deeper Cardiovascular (CV) ?? Chest Pains: no ?? Shortness of breath: no Chest ?? Decreased exercise tolerance: no ?? Breast changes/development: s/p mastectomy Gastrointestinal (GI) ?? Abdominal pain: no ?? Change in appetite: no Skin ?? Acne or oily skin: YES- on back ?? Change in hair: yes, facial growth Genitourinary () ?? Abnormal vaginal bleeding: no s/p hysterectomy ?? Change in libido: yes, increased ?? New sexual partners: no Musculoskeletal ?? Leg pain or swelling: no Psychiatric (Psych) ?? Depression: YES- FH suicide, difficulty motivating self and interest ?? Anxiety/Panic: no ?? Mood: okay Physical Exam: There were no vitals filed for this visit. BMI= There is no height or weight on file to calculate BMI. Wt Readings from Last 10 Encounters: 05/10/19 85.3 kg (188 lb) 01/12/19 86.5 kg (190 lb 12.8 oz) 05/20/18 83.6 kg (184 lb 3.2 oz) 05/04/18 80.8 kg (178 lb 1.6 oz) 01/10/17 66.7 kg (147 lb) 12/03/16 65.4 kg (144 lb 1.6 oz) 11/27/16 64.9 kg (143 lb 1.3 oz) 11/19/16 65.6 kg (144 lb 11.2 oz) 08/07/16 65.9 kg (145 lb 3.2 oz) 06/18/16 68.8 kg (151 lb 9.6 oz) Appearance: Male appearance and dress GENERAL:: healthy, alert and no distress RESP: lungs clear to auscultation - no rales, no rhonchi, no wheezes CV: regular rates and rhythm, normal S1 S2, no S3 or S4 and no murmur, no click or rub - MS: extremities normal- no gross deformities noted, no edema SKIN: no suspicious lesions, no rashes MSK: normal gait, left ankle lateral pain with internal rotation, no malleolar pain, no 5th metatarsal pain, full ROM without pain. NEURO: Normal strength and tone, sensory exam grossly normal, mentation intact and speech normal, reflexes symmetric Affect: full Labs: Labs ordered and pending Assessment and Plan Pablo was seen today for HRT follow-up Gender dysphoria in adult Hormones: Start date: 2015 Current dose: 60 mg subQ T Last labs: 04/2019: T=745 Satisfaction: high, subQ going much better, very happy with changes, still experiencing changes anddoes not want to back down on dose yet Adjunct therapy: surgery (s/p double mastectomy, hysterectomy/oophrectomy, bottom surgery) Therapist: seeking a new one Contraception: s/p hysterectomy Changes today: none, recheck labs today and refill x1 year Follow-up: 1 year ATFL ankle sprain No indications for imaging today - PT referral Elevated BP, no diagnosis of hypertension - recommended patient follow-up with pcp for hypertension work-up and treatment Hyperlipidemia May be 2/2 T. On moderate intensity statin, Recheck lipids today- LDL and TG remain elevated. - increase to high intensity statin and recheck fasting in 2 months Lifestyle modifications discussed Declined flu shot Marce Gallardo MD Darcy Jackson DO - 03/20/2020 1:20 PM CDT Preceptor Attestation: Patient seen, evaluated and discussed with the resident. I have verified the content of the note, which accurately reflects my assessment of the patient and the plan of care. Supervising Physician: Darcy Jackson DO documented in this encounter Miscellaneous Notes Result Encounter Note - Marce Gallardo MD - 03/20/2020 1:20 PM CDT Please call patient with the following message: Liver function tests bumped up, plan: recheck in 2 months when we are also rechecking fasting lipids. I also would like Pablo to get a repeat liver US,this has been ordered. Thanks, Marce Gallardo MD 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 Scheduled Referrals Name Type Priority Associated Diagnoses Order S chedule EDUIN, PT, HAND AND Referral Routine Sprain of anterior Expe cted: CHIROPRACTIC REFERRAL - talofibular ligam ent of 03/20/2020, Expires: EDUIN left ankle, initial 03/20/20 21 encounter documented as of this encounter Procedures Procedure Name Priority Date/Time Associated Comments Diagnosis TESTOSTERONE TOTAL Routine 03/20/2020 4:59 PM Gender dysphoria in Results for this CDT adult procedure are i n the results section. HEPATIC PANEL Routine 03/20/2020 1:11 PM Gender dysphoria in R esults for this (LABDAQ) CDT adult procedure are i n the results section. GLUCOSE CASUAL Routine 03/20/2020 1:11 PM Gender dysphoria in Results for this (LABDAQ) CDT adult procedure are i n the results section. CBC WITH DIFF PLT Routine 03/20/2020 1:11 PM Gender dysphoria in Results for this (LABDAQ) CDT adult procedure are i n the results section. LIPID PANEL (LABDAQ) Routine 03/20/2020 1:11 PM Gender dysphor ia in Results for this CDT adult procedure are i n the results section. documented in this encounter Results Testosterone total (03/20/2020 4:59 PM CDT) Analysis Performed At [facility] logist Time Signature Testosterone 424 240 - 950 03/22/2020 [facility] ng/dL 7:42 AM CDT [facility] Comment: This test was developed and its performa nce characteristics determined by the [facility], Special Chemistry Laboratory. It has not been cleared or approved by the FDA. The laboratory is regulated under CLIA as qualified to perform high- complexity testing. This test is used for clinical purposes. It should not be regarded as investigational or for research. Specimen Anatomical Collection Method Collection Time Receive d Time (Source) Location / / Volume Laterality Blood specimen VENOUS BLOOD / 03/20/2020 4:59 PM 03/20 5:04 (specimen) Unknown CDT PM CDT Darcy Jackson DO LAB - BLOOD ORDERABLES Performing Organization Address City/State/ZIP Code Phon e Number [facility] [address] [place], [place] [id number] [place] [address] (ABNORMAL) Lipid [place] ([facility]) (03/20/2020 1:11 PM CDT) Patholo gist Method Time Signature Cholesterol 323.4 (H) 0.0 - [facility] 200.0 FAMILY mg/dL MEDICINE LAB[facility]Q Cholesterol/HDL 7.2 (H) 0.0 - 5.0 [facility] Ratio FAMILY MEDICINE [facility] HDL Cholesterol 44.9 >40.0 [facility] mg/dL FAMILY MEDICINE [facility] Triglycerides 533.9 (H) 0.0 - [place] 150.0 FAMILY mg/dL MEDICINE [facility] VLDL Cholesterol 106.8 (H) 7.0 - [place] 32.0 FAMILY mg/dL MEDICINE [facility] LDL Cholesterol Unable to 0 - 129 [facility] Calculated calculate mg/dL FAMILY Trig >=400 MEDICINE LABDAQ Specimen Anatomical Collection Method Collection Time Receive d Time (Source) Location / / Volume Laterality Blood specimen VENOUS BLOOD / 03/20/2020 1:11 PM 03/20 1:12 (specimen) Unknown CDT PM CDT Narrative [facility] MEDICINE LABDAQ - 020 1:59 PM CDT Triglycerides were >400 mg/dL, unable to calculate the LDL Darcy Jackson DO LAB - LABDAQ Performing Organization Address City/[facility] Code Phon e Number [facility] [address] [place] [address] [phone] LABDAQ (ABNORMAL) Hepatic Panel ([facility]) (03/20/2020 1:11 PM CDT) [facility] Method Time Signature Protein Total 7.5 6.8 - 8.8 [place] g/dL FAMILY MEDICINE LABDAQ Albumin 4.7 3.8 - 5.0 [place] mg/dL FAMILY MEDICINE [facility] Alkaline 49.0 31.7 - [facility] Phosphatase 110.7 U/L FAMILY MEDICINE [facility] ALT 84.0 (H) 0.0 - 45.0 [place] U/L FAMILY MEDICINE [facility] AST 46.7 0.0 - 55.0 [place] U/L FAMILY MEDICINE [facility] Bilirubin Direct 0.2 0.1 - 0.3 [place] mg/dL FAMILY MEDICINE LAB[facility]Q Bilirubin Total 0.6 0.2 - 1.3 [place] mg/dL FAMILY MEDICINE LAB[facility]Q Specimen Anatomical Collection Method Collection Time Receive d Time (Source) Location / / Volume Laterality Blood specimen VENOUS BLOOD / 03/20/2020 1:11 PM 03/20 1:12 (specimen) Unknown CDT PM CDT Darcy Jackson DO LAB - LABDAQ Performing Organization Address City/[facility]/ZIP Code Phon e Number [facility] [address] [place] [phone] LABDAQ Glucose Casual ([facility]) (03/20/2020 1:11 PM CDT) P athologist Signature Glucose Casual 84.[address] 51.[address] - [facility] FAMILY 200.0 MEDICINE mg/dL LABDAQ Specimen Anatomical Collection Method Collection Time Receive d Time (Source) Location / / Volume Laterality Blood specimen VENOUS BLOOD / 03/20/2020 1:11 PM 03/20 1:12 (specimen) Unknown CDT PM CDT Darcy Jackson DO LAB - LABDAQ Performing Organization Address City/State/ZIP Code Phon e Number [facility] [address] [place] [address] [phone] LABDAQ (ABNORMAL) CBC with Diff Plt ([facility]) (03/20/2020 1:11 PM CDT) Analysis Performed At Patho logist Time Signature WBC 6.4 4.0 - 11.0 [place] K/uL FAMILY MEDICINE LABDAQ Lymphocytes # 2.5 0.8 - 5.3 [place] K/uL FAMILY MEDICINE LABDAQ % Lymphocytes 39.0 20.0 - [place] 48.0 %L FAMILY MEDICINE LAB[facility]Q Mid # 0.6 0.0 - 2.2 [place] K/uL FAMILY MEDICINE LABDAQ Mid % 8.6 0.0 - 20.0 [place] %M FAMILY MEDICINE LABDAQ GRANULOCYTES # 3.4 1.6 - 8.3 [place] K/uL FAMILY MEDICINE LABDAQ % Granulocytes 52.4 40.0 - [place] 75.0 %G FAMILY MEDICINE LABDAQ RBC 5.54 4.40 - [facility] 5.90 M/uL FAMILY MEDICINE LAB[facility]Q Hemoglobin 16.7 13.3 - [facility] 17.7 g/dL FAMILY MEDICINE LAB[facility]Q Hematocrit 54.5 (H) 40.0 - [facility] 53.0 % FAMILY MEDICINE [facility] MCV 98.3 78.0 - [facility] 100.0 fL FAMILY MEDICINE [facility] MCH 30.1 26.5 - [facility] 35.0 pg FAMILY MEDICINE LAB[facility]Q MCHC 30.6 (L) 32.0 - [place] 36.0 g/dL FAMILY MEDICINE LAB[facility] Platelets 262.0 150.0 - [facility] 450.0 K/uL FAMILY MEDICINE LABDAQ Specimen Anatomical Collection Method Collection Time Receive d Time (Source) Location / / Volume Laterality Blood specimen VENOUS BLOOD / 03/20/2020 1:11 PM 03/20 1:12 (specimen) Unknown CDT PM CDT Darcy Jackson DO LAB - LABDAQ Performing Organization Address City/State/ZIP Code Phon e Number [facility] [address] [place] [address] [phone] LABDAQ documented in this encounter Visit Diagnoses Diagnosis Gender dysphoria in adult - Primary Sprain of anterior talofibular ligament of left ankle, initial encounter Mixed hyperlipidemia Elevated BP without diagnosis of hyperte nsion Hypertriglyceridemia Pure hyperglyceridemia Hypercholesteremia Pure hypercholesterolemia Healthcare maintenance Routine general medical examination at a health care facility documented in this encounter Additional Health Concerns Assessment Noted Time PHQ-9 Depression Total Score: 0 05/10/2019 4:19 PM 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 COUPLER documented as of this encounter Care Teams Orthopaedic General Relationship Specialty Start Date End Date Marce Gallardo MD PCP - General Student in [facility] 05/17/19 07/15/[address] [place] [id number] education/training program Bella Sears, General Surgery 11/28/14 Tana Peña MD Plastic Surgery 10/30/[address] [place] [address] [address] [place] [address] Sofiya Keenan MD MD touch up painter hand 01/11/[address] [place] [address] Debby Suggs, ACTUARY ACTUARY Plastic Surgery 11/26/16 Aung Salinas MD MD Urology 05/04/18 [address] [place] [address] Dana Jane, CASH Registered Nurse Urology 05/04/18 01/15/22 Shahzad Sen MD MD Plastic Surgery 10/08/18 [facility] [address] [place] [address] John Gresham [facility] Plastic Surgery 10/08/18 Coordinator Marce Gallardo MD Assigned PCP 11/04/19 07/29/[address] [id number] documented as of this encounter
--- OUTSIDE RECORDS SUMMARY | 2022-04-12 08:18 | XMS_ITS | Encounter Summary ---
:1995 Author Organization [facility] Address [address] [place] [address]. [place] [address] Care Team Providers Name Role Phone Bella Sears MD Unavailable Tana Peña MD Unavailable Sofiya Keenan MD Unavailable Debby Suggs LPN Unavailable Unavailable Aung Salinas MD Unavailable Dana Jane RN Unavailable Shahzad Sen MD Unavailable John Gresham Unavailable Seun Valladares MD Primary Care Provider [phone] Reason for Visit Reason Onset Date Comments Refill Request 02/09/2019 refill for testostro ne injection Encounter Details Date Type Department Care Team Description 02/09/[address] [facility] Seun Valladares Ref ill Request (refill Clinic MD [facility] for testostrone [address] ) [address] [place], [place] [address] [place], [place] [phone] (Wo rk) Social History Tobacco Use Types Packs/Day Years Used Date Smoking Tobacco: Former Cigarettes 0.3 Quit : 09/14/2016 Smokeless Tobacco: Never Alcohol Use Standard Drinks/Week Comments Yes 0 (1 standard drink = 0.6 oz pure alcoho l) rarely Sex Assigned at Date Recorded Female 03/20/2020 2:05 PM CDT documented as of this encounter Miscellaneous Notes Telephone Encounter - Nella Carroll RN - 02/11/2019 2:14 PM CDT PCP called RN as she saw that it had not yet been addressed by provider who saw him last. She gave averbal order for me to refill it for him and change the dispense amount to 4 mL with the new guideline change. RN printed the order, had preceptor sign and walked it to the pharmacy. RN contacted patient to inform him it was sent and that we will need to see him before the next refill. Nella Carroll RN Telephone Encounter - Nella Carroll RN - 02/09/2019 3:56 PM CDT Per PCP, I was just routed with refill for testosterone, and I am listed as his PCP. However, I have never seen him, and he just saw Dr. Gallardo one month ago for HRT follow up and was told to follow upin 3 months, so I'm wondering if we can route the prescription request to Dr. Gallardo since she's seenthem and may understand their need at this time. It looks like they were recently switched to subQ injections but the refill prescription is for IM injection. Thanks! Seun Routing to Dr. Gallardo to please assist and address. Nella Carroll RN documented in this encounter Plan of Treatment [...] documented as of this encounter Care Teams Mule Packer Relationship Specialty Start Date End Date Seun Valladares PCP - General Student in [facility] 01/24/19 9 [facility] [address]/training [address] [place] [address] Bella Sears, General Surgery 11/28/14 Tana Peña MD Plastic Surgery 10/30/[address] [place] [address] Sofiya Keenan MD MD craft coordinator 01/11/[address] [place] [address] Debby Suggs, LIFEGUARD LIFEGUARD Plastic Surgery 11/26/16 Aung Salinas MD MD Urology 05/04/18 [address] [place] [address] Dana Jane, CASH Registered Nurse Urology 05/04/18 01/15/22 Shahzad Sen MD MD Plastic Surgery 10/08/18 [facility] [address] [place] [address] John Gresham [facility] Plastic Surgery 10/08/18 Coordinator documented as of this encounter
--- OUTSIDE RECORDS SUMMARY | 2022-04-12 08:18 | XMS_ITS | Encounter Summary ---
:1995 Author Organization [facility] Address [address] [place] [address]. [place] [address] Care Team Providers Name Role Phone Bella Sears MD Unavailable Tana Peña MD Unavailable Sofiya Keenan MD Unavailable Debby Suggs LPN Unavailable Unavailable Aung Salinas MD Unavailable Dana Jane RN Unavailable Shahzad Sen MD Unavailable John Gresham Unavailable Marce Gallardo MD Primary Care Provider Marce Gallardo MD Unavailable Reason for Visit Reason Onset Date Comments Outreach 04/12/2020 Encounter Details Date Type Department Care Team Description 04/12/2020 Telephone [facility] Lily Grider, CASH Outreach [address] [place] [address] [phone] Social History Tobacco Use Types Packs/Day Years [...] with No / Unsure 04/19/2020 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 documented as of this encounter Miscellaneous Notes Telephone Encounter - Jessie Duffy RN - 04/19/2020 11:51 AM CST RN reached out to patient and relayed message below from Dr. Gallardo. Patient verbalized understanding. RN offered to set up appointment to go over results and discuss symptoms. Patient states he will call back later today to schedule. Jessie Duffy RN Nothing different seen, still just fatty liver. I just prefer to do a thorough work up to rule out potential causes. These findings are not uncommon and the urgency is not high, we should schedule a clinic visit to talk through this more. Most beneficial would be to wait until labs come back. Thanks! Cassie ERCIAL FRONT LOAD DRIVER Telephone Encounter - Jessie Duffy RN - 04/19/2020 11:30 AM CST Patient hear for lab visit and asked to speak to RN. Patient is confused about US results- states healready knew that he had fatty liver from previous tests. Patient wondering if Dr. Gallardo saw something else on the US that prompted all of the additional lab tests that she ordered. RN advised that Iwas unable to provide additional interpretation of US outside of the note below from Dr. Gallardo. Patient also wanted Dr. Gallardo to know that he has had abdominal pain, itching, fatigue, and petechiae for about a year that no one has found a cause for. Patient states he has had many tests for this, was seen by multiple ED providers, and [facility] in [place] who prescribed Dicyclomine which sometimes help. Patient is wondering if there is a connection between US results and these symptoms. Patient requesting call back from provider VALENTIN to discuss results and plan. RN sending high priority and will also send page. Jessie Duffy RN ERCIAL FRONT LOAD DRIVER Telephone Encounter - Jessie Duffy RN - 04/18/2020 1:44 PM CST RN spoke to patient and relayed message from Dr. Gallardo below about US results. Patient requesting further clarification of what this means. RN did inform him that this generally means a build up of fatin the liver that has many different causes. Patient requesting more information from Dr. Gallardo. Patient did schedule lab only appointment for tomorrow 04/19/20. Did not schedule follow up with Dr. Gallardo yet as her next available wasn't until the end of the month. Routing to provider to advise. Jessie Duffy RN ERCIAL FRONT LOAD DRIVER Telephone Encounter - Cristin Wallace - 04/18/2020 1:23 PM CST Pt returning clinic call. Please F/U ERCIAL FRONT LOAD DRIVER Telephone Encounter - Jessie Duffy RN - 04/18/2020 8:36 AM CST RN made additional attempt to reach patient- LM for him to call back. Please transfer to any available RN. Jessie Duffy RN ERCIAL FRONT LOAD DRIVER Telephone Encounter - Nathanael, September - 04/17/2020 4:39 PM CST Patient returned RN call, RN unavailable, advised they will receive a call back. ERCIAL FRONT LOAD DRIVER Telephone Encounter - Jessie Duffy RN - 04/14/2020 3:48 PM CDT RN made additional attempt to contact patient about US results. LM to call back- please transfer to any available RN when he calls back. RN will also send a letter. Routing to PCP as FYI. Jessie Duffy RN Telephone Encounter - Lily Hall RN - 04/12/2020 10:[address] Gallardo US showing fatty infiltrate of the liver. Next step is to obtain some labs, then we should have an in-person or video visit to discuss labs and next steps. Ordered as future labs. Left a message to return call. desk officer please transfer to any available RN when patient calls back, thank you! 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 documented as of this encounter Care Teams Bag Machine Tender Relationship Specialty Start Date End Date Marce Gallardo MD PCP - General Student in [facility] 05/17/19 07/15/202019 [address] [place] [address] education/training program Bella Sears, General Surgery 11/28/14 Tana Peña MD Plastic Surgery 10/30/15 [address] [facility] [address] [place], [place] [id number] Sofiya Keenan MD MD summons server 01/11/[address] [place], [place] [address] Debby Suggs LPN MEDICAL STAFF MANAGER Plastic Surgery 11/26/16 Aung Salinas MD MD Urology 05/04/18 [address] [place], [place] [id number] Dana Jane, CASH Registered Nurse Urology 05/04/18 01/15/22 Shahzad Sen MD MD Plastic Surgery 10/08/18 [facility] [address] [place] [address] John [facility] Plastic Surgery 10/08/18 Coordinator Marce Gallardo MD Assigned PCP 11/04/19 07/29/20 [facility] [id number] [place] [phone] documented as of this encounter
--- OUTSIDE RECORDS SUMMARY | 2022-04-12 08:18 | XMS_ITS | Encounter Summary ---
:1995 Author Organization [facility] Address [address] [place] [address]. [place] [address] Care Team Providers Name Role Phone Bella Sears MD Unavailable Tana Peña MD Unavailable Sofiya Keenan MD Unavailable Debby Suggs LPN Unavailable Unavailable Aung Slainas MD Unavailable Dana Jane RN Unavailable Shahzad Sen MD Unavailable John Gresham Unavailable Marce Gallardo MD Primary Care Provider Marce Gallardo MD Unavailable Encounter Details Date Type Department Care Team Description 04/19/2020 [facility] Only [facility] Hepatic steatosis Laboratory [address] [place], [place] [phone] Social History Tobacco Use Types Packs/Day [...] with No / Unsure 04/19/2020 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 ANTI NUCLEAR TRAVIS IGG Routine 04/19/2020 10:51 AM Hepatic steat osis Results for this BY IFA WITH REFLEX WATER CHASER procedure are in the results section. HEPATITIS A ANTIBODY Routine 04/19/2020 10:51 AM Hepatic steat osis Results for this IGG WATER CHASER procedure are i n the results section. LIVER KIDNEY Routine 04/19/2020 10:51 AM Hepatic steatosis Res ults for this MICROSOMAL ANTIBODY WATER CHASER procedur e are in IGG the results section. IRON AND IRON Routine 04/19/2020 10:51 AM Hepatic steatosis Re sults for this BINDING CAPACITY WATER CHASER procedure a re in the results section. IGD Routine 04/19/2020 10:51 AM Hepatic steatosis Res ults for this WATER CHASER procedure are i n the results section. HEPATITIS C ANTIBODY Routine 04/19/2020 10:51 AM Hepatic steat osis Results for this WATER CHASER procedure are i n the results section. HEPATITIS B SURFACE Routine 04/19/2020 10:51 AM Hepatic steato sis Results for this ANTIGEN WATER CHASER procedure are i n the results section. HEPATITIS B CORE Routine 04/19/2020 10:51 AM Hepatic steatosis Results for this ANTIBODY IGM WATER CHASER procedure are i n the results section. HEPATIC FUNCTION Routine 04/19/2020 10:51 AM Hepatic steatosis Results for this PANEL WATER CHASER procedure are i n the results section. FERRITIN Routine 04/19/2020 10:51 AM Hepatic steatosis Res ults for this WATER CHASER procedure are i n the results section. F ACTIN EIA WITH Routine 04/19/2020 10:51 AM Hepatic steatosis Results for this REFLEX WATER CHASER procedure are i n the results section. documented in this encounter Results Hepatic panel (04/19/2020 10:51 AM WATER CHASER) P athologist Signature Bilirubin Direct 0.1 0.0 - 0.2 04/19/2020 [facility] mg/dL 2:40 PM WATER CHASER [facility] Bilirubin Total 0.6 0.2 - 1.3 04/19/2020 [facility] mg/dL 2:40 PM WATER CHASER [facility] Albumin 4.0 3.4 - 5.0 04/19/2020 [facility] g/dL 2:40 PM [facility] Protein Total 7.6 6.8 - 8.8 04/19/2020 [facility] g/dL 2:40 PM [facility] Alkaline 57 40 - 150 04/19/2020 [facility] Phosphatase U/L 2:40 PM [facility] ALT 60 0 - 70 U/L 04/19/2020 [facility] 2:40 PM [facility] AST 30 0 - 45 U/L 04/19/2020 [facility] 2:40 PM [facility] Specimen Anatomical Collection Method Collection Time Receive d Time (Source) Location / / Volume Laterality Blood specimen VENOUS BLOOD / 04/19/2020 10:51 020 (specimen) Unknown AM WATER CHASER 12:49 PM WATER CHASER Lorrie Ratliff MD LAB - BLOOD ORDERABLES Performing Organization Address City/[facility] Phon e Number [address] Hepatitis B core antibody IgM (04/19/2020 10:51 AM WATER CHASER) [facility] Method Time Signature Hepatitis B Nonreactive NR^Nonrea 04/19/2020 [facility] Core IgM ctive 6:18 PM WATER CHASER [facility] Comment: A nonreactive result suggests lack of re cent exposure to the virus in the preceding 6 months. Specimen Anatomical Collection Method Collection Time Receive d Time (Source) Location / / Volume Laterality Blood specimen VENOUS BLOOD / 04/19/2020 10:51 020 (specimen) Unknown AM WATER CHASER 12:49 PM WATER CHASER Lorrie Ratliff MD LAB - BLOOD ORDERABLES Performing Organization Address City/State/ZIP Code Phon e Number [facility] [address] Hepatitis B surface antigen (04/19/2020 10:51 AM WATER CHASER) [facility] Method Time Signature Hep B Surface Nonreactive NR^Nonrea 04/19/2020 [facility] Agn ctive 6:18 PM WATER CHASER [facility] Specimen Anatomical Collection Method Collection Time Receive d Time (Source) Location / / Volume Laterality Blood specimen VENOUS BLOOD / 04/19/2020 10:51 020 (specimen) Unknown AM WATER CHASER 12:49 PM WATER CHASER Lorrie Ratliff MD LAB - BLOOD ORDERABLES Performing Organization Address City/[facility]/ZIP Code Phon e Number [address] Hepatitis C antibody (04/19/2020 10:51 AM WATER CHASER) [facility] Signature Hepatitis C Nonreactive NR^Nonrea 04/19/2020 [facility] Antibody ctive 6:18 PM WATER CHASER [facility] Comment: Assay performance characteristics have n ot been established for newborns, infants, and children Specimen Anatomical Collection Method Collection Time Receive d Time (Source) Location / / Volume Laterality Blood specimen VENOUS BLOOD / 04/19/2020 10:51 020 (specimen) Unknown AM WATER CHASER 12:49 PM WATER CHASER Lorrie Ratliff MD LAB - BLOOD ORDERABLES Performing Organization Address City/[facility]/ZIP Code Phon e Number [address] Hepatitis A Antibody IgG (04/19/2020 10:51 AM WATER CHASER) [facility] Signature Hepatitis A Nonreactive NR^Nonrea 04/19/2020 [facility] Antibody IgG ctive 6:18 PM WATER CHASER [facility] Comment: This assay cannot be used for t he diagnosis of acute HAV infection. Specimen Anatomical Collection Method Collection Time Receive d Time (Source) Location / / Volume Laterality Blood specimen VENOUS BLOOD / 04/19/2020 10:51 020 (specimen) Unknown AM WATER CHASER 12:49 PM WATER CHASER Lorrie Ratliff MD LAB - BLOOD ORDERABLES Performing Organization Address City/[facility]/ZIP Code Phon e Number [address] (ABNORMAL) Hepatitis B Surface Antibody (04/19/2020 10:51 AM WATER CHASER) [facility] Signature Hepatitis B >1,000.00 <8.00 04/19/2020 [facility] Surface (H) m[IU]/mL 6:18 PM WATER CHASER [facility] Comment: Reactive, Patient is considered to be im mune to infection with hepatitis B when the value is greater than or equal to 12.0 m[IU]/mL. Specimen Anatomical Collection Method Collection Time Receive d Time (Source) Location / / Volume Laterality Blood specimen VENOUS BLOOD / 04/19/2020 10:51 020 (specimen) Unknown AM WATER CHASER 12:49 PM WATER CHASER Lorrie Ratliff MD LAB - BLOOD ORDERABLES Performing Organization Address City/State/ZIP Code Phon e Number [facility] [address] IRON AND IRON BINDING CAPACITY (04/19/2020 10:51 AM WATER CHASER) athologist Signature Iron 64 35 - 180 04/19/2020 [facility] ug/dL 2:40 PM WATER CHASER [facility] Iron Binding 337 240 - 430 04/19/2020 [facility] Cap ug/dL 2:40 PM WATER CHASER [facility] Iron Saturation 19 15 - 46 % 04/19/2020 [facility] Index 2:40 PM WATER CHASER [facility] Specimen Anatomical Collection Method Collection Time Receive d Time (Source) Location / / Volume Laterality Blood specimen VENOUS BLOOD / 04/19/2020 10:51 020 (specimen) Unknown AM WATER CHASER 12:49 PM WATER CHASER Lorrie Ratilff MD LAB - BLOOD ORDERABLES Performing Organization Address City/State/ZIP Code Phon e Number [address] Ferritin (04/19/2020 10:51 AM WATER CHASER) athologist Signature Ferritin 103 26 - 388 04/19/2020 [facility] [place] ng/mL 2:42 PM WATER CHASER [facility] Specimen Anatomical Collection Method Collection Time Receive d Time (Source) Location / / Volume Laterality Blood specimen VENOUS BLOOD / 04/19/2020 10:51 020 (specimen) Unknown AM WATER CHASER 12:49 PM WATER CHASER Lorrie Raltiff MD LAB - BLOOD ORDERABLES Performing Organization Address City/State/ZIP Code Phon e Number [address] IgD (04/19/2020 10:51 AM WATER CHASER) athologist Signature Immunoglobulin D <0.7 <=15.3 04/21/2020 [facility] mg/dL 6:53 PM WATER CHASER [facility] Comment: (Note) INTERPRETIVE INFORMATION: ??Immunoglobul in D, Serum IgD is one of the five classes of immuno globulin. IgD is mainly found on the surface of B-cells a nd may help regulate B-cell function. IgD likely ser ves as an early B-cell antigen receptor, however, the fu nction of the circulating IgD is largely unknown. Performed By: [facility] [address] [place] [address] Concrete Worker: Mary Dougherty MD Specimen Anatomical Collection Method Collection Time Receive d Time (Source) Location / / Volume Laterality Blood specimen VENOUS BLOOD / 04/19/2020 10:51 020 (specimen) Unknown AM WATER CHASER 12:49 PM WATER CHASER Lorrie Ratliff MD LAB - BLOOD ORDERABLES Performing Organization Address City/[facility]/ZIP Code Phon e Number [facility] [address] [place] [address] CLINIC (ABNORMAL) Anti Nuclear Travis IgG by IFA with Reflex (04/19/2020 10:51 AM WATER CHASER) Component Value Ref Test Analysis Performed At Patholo gist Range Method Time Signature NORMA interpretation Positive (A) NEG^Nega 04/20/2020 [facility] tive 11:08 AM [facility] Comment: ? Reference range: <1:40 ??NEGATIVE 1:40 - 1:80 ??BORDERLINE POSITIVE >1:80 POSITIVE NORMA pattern 1 HOMOGENEOUS 04/20/2020 11:08 AM [facility] NORMA titer 1 1:160 04/20/2020 11:08 AM WATER CHASER [facility] Specimen Anatomical Collection Method Collection Time Receive d Time (Source) Location / / Volume Laterality Blood specimen VENOUS BLOOD / 04/19/2020 10:51 020 (specimen) Unknown AM WATER CHASER 12:49 PM WATER CHASER Lorrie Ratliff MD LAB - BLOOD ORDERABLES Performing Organization Address City/[facility]/ZIP Code Phon e Number [address] [address] [facility] F Actin EIA with reflex (04/19/2020 10:51 AM WATER CHASER) P athologist Signature F-Actin 5 0 - 19 04/21/2020 [facility] Antibody IgG Units 4:53 PM WATER CHASER [facility] Comment: (Note) If F-Actin (Smooth Muscle) Antibody, IgG is negative, the Smooth Muscle Antibody titer by IFA is n ot performed. REFERENCE INTERVAL: F-Actin (Smooth Musc le) Antibody, IgG by ? NADEGE 19 Units or less ....... Negative 20 - 30 Units .......... Weak Positive- Suggest repeat ?t esting in two to three weeks ?w ith fresh specimen. 31 Units or greater..... Positive-Sugge stive of ?a utoimmune hepatitis type 1 ?o r chronic active hepatitis. F-actin IgG antibodies have been shown t o have increased sensitivity for autoimmune hepatitis (AI H) but lower specificity than smooth muscle antibodie s (SMA). F-actin IgG antibodies can also be seen in SMA-n egative disease controls (non-AIH), especially in patien ts with primary biliary cirrhosis and chronic hepatitis C infections. Some patients with AIH may be SMA-positive bu t negative for F-actin IgG. Consider testing for SMA by IFA if suspicion for AIH is strong. Performed By: [facility] [address] [place] [id number] Concrete Worker: Mary Dougherty MD Specimen Anatomical Collection Method Collection Time Receive d Time (Source) Location / / Volume Laterality Blood specimen VENOUS BLOOD / 04/19/2020 10:51 020 (specimen) Unknown AM WATER CHASER 12:49 PM WATER CHASER Lorrie Ratliff MD LAB - BLOOD ORDERABLES Performing Organization Address City/State/ZIP Code Phon e Len [facility] [address] [place] [phone] [facility] Liver kidney microsomal antibody IgG (04/19/2020 10:51 AM WATER CHASER) P athologist Signature Liver-Kidney <1:20 <1:20 04/21/2020 [facility] Micro Antibody 6:40 PM WATER CHASER [facility] Comment: (Note) INTERPRETIVE INFORMATION: ??Liver-Kidney -Microsome Abs, IgG Liver-Kidney Microsome IgG antibody (ant i-LKM), as detected by indirect immunofluorescent antibody ( IFA) techniques, may be observed in patients with autoimm une hepatitis type 2 (AIH-2), AIH-2 associated with autoimm une akrtlamjfvqnhrvser-mgzidqydiuu-idblrphau l dystrophy (APECED), viral hepatitis C or D, and so me forms of drug-induced hepatitis. This IFA does no t differentiate among the four types of LKM antibodies ( LKM-1, LKM-2, LKM-3, and a fourth type that recognizes CY and CY antigens). Of these, anti-LKM-1 (cytochr ome [id number]) IgG antibodies are considered specific for A IH-2. Test developed and characteristics deter mined by [facility] [employer]. See Compliance Statement D : [employer]/CS Performed By: [facility] [employer] [address] [place] [id number] Concrete Worker: Mary Dougherty MD Specimen Anatomical Collection Method Collection Time Receive d Time (Source) Location / / Volume Laterality Blood specimen VENOUS BLOOD / 04/19/2020 10:51 020 (specimen) Unknown AM WATER CHASER 12:49 PM WATER CHASER Lorrie Ratliff MD LAB - BLOOD ORDERABLES Performing Organization Address City/State/ZIP Code Phon e Number [facility] [address] [place] [address] 7 [phone] CLINIC documented in this encounter Visit Diagnoses Diagnosis Hepatic steatosis Other chronic nonalcoholic liver disease documented in this encounter Additional Health Concerns Assessment Noted Time PHQ-9 Depression Total Score: 0 05/10/2019 4:19 PM WATER CHASER documented as of this encounter Care Teams Russian Language Professor Relationship Specialty Start Date End Date Marce Gallardo MD PCP - General Student in organized 05/17/19 07/15/[address] [address] education/training program Bella Sears, General Surgery 11/28/14 Tana Peña MD Plastic Surgery 10/30/[address] [facility] [address] [place] [address] Sofiya Keenan MD MD environmental engineering manager 01/11/[address] [place] [address] Debby Suggs, SHOWER ATTENDANT SHOWER ATTENDANT Plastic Surgery 11/26/16 Aung Salinas MD MD Urology 05/04/18 [address] [place] [address] Dana Jane, CASH Registered Nurse Urology 05/04/18 01/15/22 Shahzad Sen MD MD Plastic Surgery 10/08/18 [facility] [address] [place] [address] [facility] Plastic Surgery 10/08/18 Coordinator Marce Gallardo MD Assigned PCP 11/04/19 07/29/20 [facility] [address] [place] [address] documented as of this encounter
--- OUTSIDE RECORDS SUMMARY | 2022-04-12 08:18 | XMS_ITS | Encounter Summary ---
:1995 Author Organization [facility] Address [address] [place] [id number] Care Team Providers Name Role Phone Bella Sears MD Unavailable Tana Peña MD Unavailable Sofiya Keenan MD Unavailable Miguelina Wise DO Primary Care Provider [phone] Debby Suggs LPN Unavailable Unavailable Aung Salinas MD Unavailable Dana Jane RN Unavailable Reason for Referral Consultation - Closed Specialty Diagnoses / Procedures Referred By Contact Refer red To Contact Diagnoses Gender dysphoria Postprocedural urethral stricture, male, overlapping sites Aung Salinas MD [address] [place] [address] [id number] Referral ID Status Reason Start Date Expiration Date Visits Requ ested Visits Authorized [id number] Closed 05/20/2018 05/20/2019 1 1 K OILER Reason for Visit Reason Comments Consult discuss surgery per Bonita.. .. get a second look at botched surgery Encounter Details Date Type Department Care Team Description 05/20/2018 Office Visit [facility] Urology and Aung Salinas Gen josh dysphoria (Primary Dx); Inst for Prostate and Postprocedural urethral stricture, male, overlapping sites Urologic [facility] [address] [facility] [address] [place] [address] 4th Floor [address] [place], [place] [phone] (Work) [phone] Social History Tobacco Use Types Packs/Day Years [...] Sign Reading Time Taken Comments Blood Pressure 125/87 05/20/2018 2:51 PM TRACK OILER Pulse 75 05/20/2018 2:51 PM TRACK OILER Temperature - - Respiratory Rate - - Oxygen Saturation - - Inhaled Oxygen Concentration - - Weight 83.6 kg (184 lb 3.2 oz) 05/20/2018 2:51 PM TRACK OILER Height - - Body Mass Index 31.62 05/04/2018 3:14 PM TRACK OILER documented in this encounter Progress Notes Aung Salinas MD - 05/20/2018 2:45 PM CST [facility] Consult H&P Name: Pablo Chakraborty Date of : 1995 Chief Complaint: Gender Dysphoria Urethral Stricture History of Present Illness: Pablo Chakraborty is a 23 year old transgender male seen in consultation for gender dysphoria and urethral stricture. He underwent a right radial forearm free flap neophallus by Dr. Thomas in [place] in October 2017. This was a one stage procedure with a tube in a tube neophallus with construction of a neoscrotum. He is somewhat unsure about his entire postoperative course. He reports that over the next 6 months, he underwent > 10 surgeries - mostly to repair urethral complications. There were at least a few attempts at endoscopic management. There was also a procedure involving buccal mucosal graft. Most recently, he underwent a two stage repair involving split thickness skin graft. The urethral surgeries involved a [place] urologist - Dr. Escalante. He recently saw Bonita DHILLON in clinic. His SPT was removed. He voids without difficulty through his perineal urethrostomy (under the scrotum). He would like to transfer his care here. Past Medical History: Past Medical History: Diagnosis Date ??? Allergic rhinitis ??? Asperger syndrome ??? Chronic migraine ??? Concussion ??? [employer]sanwy-ev-cgpa transgender person ??? Herpes genitalia ??? Sleep disorder ??? Uncomplicated asthma Past Surgical History: Past Surgical History: Procedure Laterality Date ??? COLONOSCOPY ??? HYSTERECTOMY TOTAL ABDOMINAL, BILATERAL SALPINGO-OOPHORECTOMY, COMBINED Bilateral 03/12/2016 Procedure: COMBINED HYSTERECTOMY TOTAL ABDOMINAL, SALPINGO-OOPHORECTOMY; Surgeon: Sofiya Keenan MD; Location: [facility] OR ??? TRANSGENDER MASTECTOMY Bilateral 11/27/2016 Procedure: TRANSGENDER MASTECTOMY; Bilateral Subcutaneous Mastectomies, Nipple Grafts OnQ; Surgeon:Tana Peña MD; Location: [facility] OR ??? wisdom teeth removed Social History: Social History Substance Use Topics ??? Smoking status: Former Smoker Packs/day: 0.25 Types: Cigarettes Quit date: 09/14/2016 ??? Smokeless tobacco: Never Used ??? Alcohol use Yes Comment: rarely Family History: Family History Problem Relation Age of Onset ??? Hypertension Mother ??? Diabetes Father ??? Diabetes Other ??? Coronary Artery Disease Other ??? Other Cancer Other ??? Colon Cancer No family hx of ??? Cerebrovascular Disease No family hx of ??? Breast Cancer No family hx of ??? Hyperlipidemia No family hx of Allergies: No Known Allergies Medications: Current Outpatient Prescriptions Medication Sig ??? acetaminophen (TYLENOL) 325 MG tablet Take 2 tablets (650 mg) by mouth every 4 hours as needed for other (surgical pain) (Patient not taking: Reported on 05/04/2018) ??? acyclovir (ZOVIRAX) 5 % ointment Apply topically 6 times daily ??? albuterol (PROAIR HFA/PROVENTIL HFA/VENTOLIN HFA) 108 (90 BASE) MCG/ACT Inhaler Inhale 2 puffs into the lungs ??? ALBUTEROL IN Inhale 2 puffs into the lungs ??? Calcium Citrate 200 MG TABS Take 1 tablet by mouth daily ??? Cholecalciferol (VITAMIN D) 2000 UNITS tablet Take 2,000 Units by mouth daily ??? FLUTICASONE PROPIONATE, NASAL, NA [place] 1 spray in nostril 2 times daily ??? HYDROcodone-acetaminophen (NORCO) 10-325 MG per tablet Take 1 tablet by mouth every 4 hours as needed for severe pain ??? insulin syringe 31G X 5/16 0.5 ML MISC 1 applicator once a week ??? montelukast (SINGULAIR) 10 MG tablet Take 10 mg by mouth At Bedtime ??? PARoxetine (PAXIL) 20 MG tablet Take 20 mg by mouth daily ??? phenazopyridine (PYRIDIUM) 100 MG tablet Take 1 tablet (100 mg) by mouth 3 times daily as neededfor urinary tract discomfort ??? Sharps Container MISC Use each week with sharps ??? Syringe/Needle, Disp, 18G X 1 1 ML MISC 1 each every 7 days ??? Syringe/Needle, Disp, 22G X 1-1/2 1 ML MISC 1 each every 7 days ??? TEMAZEPAM PO Take 15 mg by mouth nightly as needed for sleep 1-2 tabs ??? testosterone cypionate (DEPOTESTOTERONE) 200 MG/ML injection Inject 0.3 mLs (60 mg) into the muscle once a week ??? topiramate (TOPAMAX) 50 MG tablet Take 50 mg by mouth At Bedtime ??? valACYclovir (VALTREX) 500 MG tablet Take 1 tablet by mouth No current facility-administered medications for this visit. Review of Systems: ROS: 14 point ROS neg other than the symptoms noted above in the HPI. Physical Exam: BP 125/87 Pulse 75 Wt 83.6 kg (184 lb 3.2 oz) BMI 31.62 kg/m2 General: age-appropriate in NAD HEENT: Head AT/NC, EOMI, CN Grossly intact Resp: no respiratory distress, lung sounds clear. CV: heart rate regular, S1, S2. Lymph: No cervical, supraclavicular or axillary lymphadenopathy Back: bony spine is non-tender, flanks are nontender Abdomen: non obese, soft, non-distended, non-tender. No organomegaly : RFFF neophallus present. Right arm with skin graft well taken. The neophallus is well sized. There is evidence of a prior glansplasty. Neoscrotum present without abnormality. Neophallus has meatus near coronal sulcus. There is patent urethral lumen proximal to this. Proximal to the patent lumen, there is an area that appears to be a site of a recent first stage ur ethroplasty with STSG from right thigh present on lateral edges of urethral plate. Urethra is open at this site in preparation for future closure. At the penoscrotum junction, there is a pit there, which I assume was the prior urethra. This is a blind ending pit with some debris present. Under the scrotum in the perineum, there is a perineal urethrostomy which is patent. I probed proximally, and he noted discomfort though he thought it was his sphincter. Distally, there is no lumen. LE: no edema. Neuro: grossly intact Motor: excellent strength throughout Skin: clear of rashes or ecchymoses. Assessment and Plan: 23 year old transgender male with gender dysphoria s/p radial forearm free flap neophallus in October 2017 now s/p multiple revisions and urethroplasties - including at least one buccal urethroplasty and one (first stage) of a 2 stage STSG urethroplasty. He has a very complex surgical history and very complex reconstructive issues at this time. As I see it, he has multiple urethral issues. -First, he has an obliterated section of his urethra in the scrotum. 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 There is a patent perineal urethrostomy, but distally there is no lumen. -Second, what appears to be a first stage of a 2 stage urethroplasty ready to close in a few months at the penoscrotal junction. This would require a second stage urethroplasty. -Third, he would need a PU closure. -Fourth, his meatus is not at the tip. Though I think this is not a major concern. I had a angie discussion with Pablo and a friend (another transgender male who also recently underwent a RFFF neophallus) regarding his goals of care. He has been through a lot, and I do not think [facility] any surgeries. He feels strongly that he wants further surgeries with the goals to void while standing. I discussed that any repair I would consider would entail multiple stages. At the current time, his biggest issues is the obliterated urethra from the PU to the proximal neophallus. I think this would require new tissue brought in as a flap. I would favor a SCIP flap. My tentative plan would be to askDr. Sen from plastic surgery to raise a SCIP flap which can be delivered into the perineum. I would tubularize this flap from the PU to the proximal penis. I would probably close the distal second stage urethroplasty simultaneously. At a later stage (only when the urethra from the tip of the penis to the PU remains patent for some period of time) - I would close the PU. I discussed that any of these procedures could fail - mostly by fistula or re-stricture. I discussed this tentative plan at length with the patient and his friend. There are certainly otheroptions he could try. They demonstrate good understanding. I will also consult with other reconstructive urologists and transgender specialists nationally prior to undertaking repair. In the meantime, I referred the patient to Dr. Sen to have him assess the patient and consider options. Aung Salinas MD Reconstructive Urology [facility] Gender Care K OILER documented in this encounter Nursing Notes Scotty Jarquin CMA - 05/20/2018 2:45 PM CST Chief Complaint Patient presents with ??? Consult discuss surgery per Bonita K OILER 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 Scheduled Referrals Name Type Priority Associated Diagnoses Order S [facility] PLASTIC SURGERY Referral Routine Gender dysphoria Ordered: 05/20/2018 REFERRAL Postprocedural urethral stricture, male, overlapping sites documented as of this encounter Visit Diagnoses Diagnosis Gender dysphoria - Primary Postprocedural urethral stricture, male, overlapping sites documented in this encounter Additional Health Concerns Assessment Noted Time PHQ-9 Depression Total Score: 0 01/11/2017 7:28 AM CDT documented as of this encounter Care Teams Arcade Technician Relationship Specialty Start Date End Date Miguelina Wise, LILIBETH - General Student in organized 12/13/16 01/11/19 health care education/training program Bella Sears MD General Surgery 11/28/14 Tana Peña MD Plastic Surgery 10/30/[address] [place] [id number] Sofiya Keenan MD MD beekeeper farmer 01/11/[address] [place], [place] [phone] Debby Suggs, TURRET PRESS OPERATOR TURRET PRESS OPERATOR Plastic Surgery 11/26/16 Aung Salinas MD MD Urology 05/04/18 [address] [place], [place] [phone] Dana Jane, CASH Registered Nurse Urology 05/04/18 01/15/22 documented as of this encounter
--- OUTSIDE RECORDS SUMMARY | 2022-04-12 08:18 | XMS_ITS | Encounter Summary ---
:1995 Author Organization [facility] Address [address] [place] [address]. [place] [address] Care Team Providers Name Role Phone Bella Sears MD Unavailable Tana Peña MD Unavailable Sofiya Keenan MD Unavailable Debby Suggs LPN Unavailable Unavailable Aung Salinas MD Unavailable Dana Jaen RN Unavailable Shahzad Sen MD Unavailable John Gresham Unavailable Marce Gallardo MD Primary Care Provider Marce Gallardo MD Unavailable Encounter Details Date Type Department Care Team Description 04/12/2020 Orders Only [facility] Marce Gallardo MD Hepatic steatosis Clinic [facility] (Primary Dx) [address] [place] [address] [place] [address] [facility] [address] [place], [place] [phone] [address] Social History Tobacco Use Types Packs/Day [...] been in contact with No / Unsure 04/11/2020 9:15 AM CDT someone who was confirmed or 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 documented as of this encounter Plan of Treatment Scheduled Procedures Name Priority Associated Diagnoses Date/Time INSERTION, PENILE PROSTHESIS, Gender dys phoria INFLATABLE 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 documented as of this encounter Results Liver kidney microsomal antibody IgG (04/19/2020 10:51 AM ELECTRICAL HELPER) athologist Signature Liver-Kidney <1:20 <1:20 04/21/2020 [facility] Micro Antibody 6:40 PM ELECTRICAL HELPER [facility] Comment: (Note) INTERPRETIVE INFORMATION: ??Liver-Kidney -Microsome Abs, IgG Liver-Kidney Microsome IgG antibody (ant i-LKM), as detected by indirect immunofluorescent antibody ( IFA) techniques, may be observed in patients with autoimm une hepatitis type 2 (AIH-2), AIH-2 associated with autoimm une mkzrzybxwjpxcnzurk-imcdkldufsl-jyloiozwd l dystrophy (APECED), viral hepatitis C or D, and so me forms of drug-induced hepatitis. This IFA does no t differentiate among the four types of LKM antibodies ( LKM-1, LKM-2, LKM-3, and a fourth type that recognizes CY and CY antigens). Of these, anti-LKM-1 (cytochr ome [id number]) IgG antibodies are considered specific for A IH-2. Test developed and characteristics deter mined by [facility]. See Compliance Statement D : [email or web address] Performed By: [facility] [address] [place] [id number] City Council Member: Mary Dougherty MD Specimen Anatomical Collection Method Collection Time Receive d Time (Source) Location / / Volume Laterality Blood specimen VENOUS BLOOD / 04/19/2020 10:51 020 (specimen) Unknown AM ELECTRICAL HELPER 12:49 PM ELECTRICAL HELPER Lorrie Ratliff MD LAB - BLOOD ORDERABLES Performing Organization Address City/State/ZIP Code Phon e Number [facility] [address] [place] [phone] [facility] F Actin EIA with reflex (04/19/2020 10:51 AM ELECTRICAL HELPER) P athologist Signature F-Actin 5 0 - 19 04/21/2020 CECILIO Antibody IgG Units 4:53 PM ELECTRICAL HELPER [facility] Comment: (Note) If F-Actin (Smooth Muscle) Antibody, [...] suspicion for AIH is strong. Performed By: [facility] [address] [place] [address] City Council Member: Mary Dougherty MD Specimen Anatomical Collection Method Collection Time Receive d Time (Source) Location / / Volume Laterality Blood specimen VENOUS BLOOD / 04/19/2020 10:51 020 (specimen) Unknown AM ELECTRICAL HELPER 12:49 PM ELECTRICAL HELPER Lorrie Ratliff MD LAB - BLOOD ORDERABLES Performing Organization Address City/State/ZIP Code Phon e Number CECILIO [facility] [address] [place] [phone] CLINIC (ABNORMAL) Anti Nuclear Bonita IgG by IFA with Reflex (04/19/2020 10:51 AM ELECTRICAL HELPER) Component Value Ref Test Analysis Performed At Patholo gist Range Method Time Signature NORMA interpretation Positive (A) NEG^Nega 04/20/2020 [facility] tive 11:08 AM [facility] Comment: ? Reference range: <1:40 ??NEGATIVE 1:40 - 1:80 ??BORDERLINE POSITIVE >1:80 POSITIVE NORMA pattern 1 HOMOGENEOUS 04/20/2020 11:08 AM ELECTRICAL HELPER [facility] NORMA titer 1 1:160 04/20/2020 11:08 AM ELECTRICAL HELPER [facility] Specimen Anatomical Collection Method Collection Time Receive d Time (Source) Location / / Volume Laterality Blood specimen VENOUS BLOOD / 04/19/2020 10:51 020 (specimen) Unknown AM ELECTRICAL HELPER 12:49 PM ELECTRICAL HELPER Lorrie Ratliff MD LAB - BLOOD ORDERABLES Performing Organization Address City/State/ZIP Code Phon e Number [facility] [address] [place] [address] [facility] IgD (04/19/2020 10:51 AM ELECTRICAL HELPER) athologist Signature Immunoglobulin D <0.7 <=15.3 04/21/2020 [facility] mg/dL 6:53 PM ELECTRICAL HELPER [facility] Comment: (Note) INTERPRETIVE INFORMATION: ??Immunoglobul in D, Serum IgD is one of the five classes of immuno globulin. IgD is mainly found on the surface of B-cells a nd may help regulate B-cell function. IgD likely ser ves as an early B-cell antigen receptor, however, the fu nction of the circulating IgD is largely unknown. Performed By: [facility] [address] [place] [address] City Council Member: Mary Dougherty MD Specimen Anatomical Collection Method Collection Time Receive d Time (Source) Location / / Volume Laterality Blood specimen VENOUS BLOOD / 04/19/2020 10:51 020 (specimen) Unknown AM ELECTRICAL HELPER 12:49 PM ELECTRICAL HELPER Lorrie Ratliff MD LAB - BLOOD ORDERABLES Performing Organization Address City/State/ZIP Code Phon e Number [facility] [address] [place], [place] [address] CLINIC Ferritin (04/19/2020 10:51 AM ELECTRICAL HELPER) athologist Signature Ferritin 103 26 - 388 04/19/2020 [facility] ng/mL 2:42 PM ELECTRICAL HELPER [facility] Specimen Anatomical Collection Method Collection Time Receive d Time (Source) Location / / Volume Laterality Blood specimen VENOUS BLOOD / 04/19/2020 10:51 020 (specimen) Unknown AM ELECTRICAL HELPER 12:49 PM ELECTRICAL HELPER Lorrie Ratliff MD LAB - BLOOD ORDERABLES Performing Organization Address City/[facility]/ZIP Code Phon e Number [facility] [address] [place] [address] [facility] IRON AND IRON BINDING CAPACITY (04/19/2020 10:51 AM ELECTRICAL HELPER) athologist Signature Iron 64 35 - 180 04/19/2020 [facility] ug/dL 2:40 PM ELECTRICAL HELPER [facility] Iron Binding 337 240 - 430 04/19/2020 [facility] Cap ug/dL 2:40 PM ELECTRICAL HELPER [facility] Iron Saturation 19 15 - 46 % 04/19/2020 [facility] 2:40 PM ELECTRICAL HELPER [facility] Specimen Anatomical Collection Method Collection Time Receive d Time (Source) Location / / Volume Laterality Blood specimen VENOUS BLOOD / 04/19/2020 10:51 020 (specimen) Unknown AM ELECTRICAL HELPER 12:49 PM ELECTRICAL HELPER Lorrie Ratliff MD LAB - BLOOD ORDERABLES Performing Organization Address City/[facility]/ZIP Code Phon e Number [facility] [address] [place] [address] [facility] (ABNORMAL) Hepatitis B Surface Antibody (04/19/2020 10:51 AM ELECTRICAL HELPER) [facility] Method Time Signature Hepatitis B >1,000.00 <8.00 04/19/2020 [facility] (H) m[IU]/mL 6:18 PM ELECTRICAL HELPER [facility] Antibody [facility] Comment: Reactive, Patient is considered to be im mune to infection with hepatitis B when the value is greater than or equal to 12.0 m[IU]/mL. Specimen Anatomical Collection Method Collection Time Receive d Time (Source) Location / / Volume Laterality Blood specimen VENOUS BLOOD / 04/19/2020 10:51 020 (specimen) Unknown AM ELECTRICAL HELPER 12:49 PM ELECTRICAL HELPER Lorrie Ratliff MD LAB - BLOOD ORDERABLES Performing Organization Address City/State/ZIP Code Phon e Number [facility] [address] Hepatitis A Antibody IgG (04/19/2020 10:51 AM ELECTRICAL HELPER) [facility] Method Time Signature Hepatitis A Nonreactive NR^Nonrea 04/19/2020 [facility] Antibody IgG ctive 6:18 PM ELECTRICAL HELPER [facility] Comment: This assay cannot be used for t he diagnosis of acute HAV infection. Specimen Anatomical Collection Method Collection Time Receive d Time (Source) Location / / Volume Laterality Blood specimen VENOUS BLOOD / 04/19/2020 10:51 020 (specimen) Unknown AM ELECTRICAL HELPER 12:49 PM ELECTRICAL HELPER Lorrie Ratliff MD LAB - BLOOD ORDERABLES Performing Organization Address City/State/ZIP Code Phon e Number [facility] [address] Hepatitis C antibody (04/19/2020 10:51 AM ELECTRICAL HELPER) [facility] Method [place] Signature Hepatitis C Nonreactive NR^Nonrea 04/19/2020 [facility] Antibody ctive 6:18 PM ELECTRICAL HELPER [facility] Comment: Assay performance characteristics have n ot been established for newborns, infants, and children Specimen Anatomical Collection Method Collection Time Receive d Time (Source) Location / / Volume Laterality Blood specimen VENOUS BLOOD / 04/19/2020 10:51 020 (specimen) Unknown AM ELECTRICAL HELPER 12:49 PM ELECTRICAL HELPER Lorrie Ratliff MD LAB - BLOOD ORDERABLES Performing Organization Address City/State/ZIP Code Phon e Number [facility] [address] Hepatitis B surface antigen (04/19/2020 10:51 AM ELECTRICAL HELPER) [facility] Method Time Signature Hep B Surface Nonreactive NR^Nonrea 04/19/2020 [facility] Agn ctive 6:18 PM ELECTRICAL HELPER [facility] Specimen Anatomical Collection Method Collection Time Receive d Time (Source) Location / / Volume Laterality Blood specimen VENOUS BLOOD / 04/19/2020 10:51 020 (specimen) Unknown AM ELECTRICAL HELPER 12:49 PM ELECTRICAL HELPER Lorrie Ratliff MD LAB - BLOOD ORDERABLES Performing Organization Address City/[facility]/ZIP Code Phon e Number [address] Hepatitis B core antibody IgM (04/19/2020 10:51 AM ELECTRICAL HELPER) Patholo gist Method Time Signature Hepatitis B Nonreactive NR^Nonrea 04/19/2020 [facility] IgM ctive 6:18 PM ELECTRICAL HELPER [facility] Comment: A nonreactive result suggests lack of re cent exposure to the virus in the preceding 6 months. Specimen Anatomical Collection Method Collection Time Receive d Time (Source) Location / / Volume Laterality Blood specimen VENOUS BLOOD / 04/19/2020 10:51 020 (specimen) Unknown AM ELECTRICAL HELPER 12:49 PM ELECTRICAL HELPER Lorrie Ratliff MD LAB - BLOOD ORDERABLES Performing Organization Address City/State/ZIP Code Phon e Number [address] Hepatic panel (04/19/2020 10:51 AM ELECTRICAL HELPER) P athologist Signature Bilirubin Direct 0.1 0.0 - 0.2 04/19/2020 [facility] F mg/dL 2:40 PM ELECTRICAL HELPER [facility] Bilirubin Total 0.6 0.2 - 1.3 04/19/2020 [place] [facility] mg/dL 2:[address] [facility] Albumin 4.0 3.4 - 5.0 04/19/2020 [facility] g/dL 2:[address] [facility] Protein Total 7.6 6.8 - 8.8 04/19/2020 [facility] g/dL 2:[address] [facility] Alkaline 57 40 - 150 04/19/2020 [facility] Phosphatase U/L 2:[address] [facility] ALT 60 0 - 70 U/L 04/19/2020 [facility] 2:[address] [facility] AST 30 0 - 45 U/L 04/19/2020 [place] [facility] 2:[address] [facility] Specimen Anatomical Collection Method Collection Time Receive d Time (Source) Location / / Volume Laterality Blood specimen VENOUS BLOOD / 04/19/2020 10:51 020 (specimen) Unknown AM ELECTRICAL HELPER 12:49 PM ELECTRICAL HELPER Lorrie Ratliff MD LAB - BLOOD ORDERABLES Performing Organization Address City/State/ZIP Code Phon e Number [facility] [address] [place] [address] [facility] documented in this encounter Visit Diagnoses Diagnosis Hepatic steatosis - Primary Other chronic nonalcoholic liver disease documented in this encounter Additional Health Concerns Assessment Noted Time PHQ-9 Depression Total Score: 0 05/10/2019 4:19 PM ELECTRICAL HELPER documented as of this encounter Care Teams Services Host Relationship Specialty Start Date End Date Marce Gallardo MD PCP - General Student in organized 05/17/19 07/15/202019 [address] [place] [address] education/training program Bella Sears, General Surgery 11/28/14 Tana Peña MD Plastic Surgery 10/30/15 [address] [facility] [address] [place], [place] [phone] Sofiya Keenan MD MD before school 01/11/[address] [place], [place] [address] Debby Suggs LPN SENIOR TAX SPECIALIST Plastic Surgery 11/26/16 Aung Salinas MD MD Urology 05/04/18 [address] [place], [place] [id number] Dana Jane, CASH Registered Nurse Urology 05/04/18 01/15/22 Shahzad Sen MD MD Plastic Surgery 10/08/18 [facility] [address] [place] [address] John Gresham Specialty Care Plastic Surgery 10/08/18 Coordinator Marce Gallardo MD Assigned PCP 11/04/19 07/29/[address] [phone] documented as of this encounter
--- OUTSIDE RECORDS SUMMARY | 2022-04-12 08:18 | XMS_ITS | Encounter Summary ---
:1994 Author Organization [facility] Address [address] [place] [address] Care Team Providers Name Role Phone Bella Sears MD Unavailable Tana Peña MD Unavailable Sofiya Keenan MD Unavailable Debby Suggs LPN Unavailable Unavailable Aung Salinas MD Unavailable Dana Jane RN Unavailable Shahzad Sen MD Unavailable John Gresham Unavailable Marce Gallardo MD Primary Care Provider Marce Gallardo MD Unavailable Reason for Referral Diagnostic Imaging Ultrasound (Routine) - Closed Specialty Diagnoses / Procedures Referred By Contact Refer red To Contact Diagnoses Hepatic steatosis Marce Gallardo MD Procedures US Abdomen Limited 2019 [place], [place] [address] Referral ID Status Reason Start Date Expiration Date Visits Requ ested Visits Authorized [id number] Closed 04/10/2020 04/10/2021 1 1 Reason for Visit (Routine) - Closed Specialty Diagnoses / Procedures Referred By Contact Refer red To Contact Radiology / Diagnoses Epic pt Rh Ultrasound cc Radiology. Procedures US ABDOMEN LIMITED [address] [facility] [address] [place] [address] Phone: Fax: Referral ID Status Reason Start Date Expiration Date Visits Requ ested Visits Authorized [id number] Closed 04/11/2020 04/11/2021 1 1 Encounter Details Date Type Department Care Team Description 04/11/2020 Hospital Encounter [facility] Darcy [place] rosio [facility] Specialty R, DO Care Center Imaging [address] [address] [place], [place] [address] [address] [place], [place] [phone] [address] (Work) [phone] Social History Tobacco Use Types Packs/Day Years [...] / COVID-19? documented as of this encounter Medications at Time of Discharge Medication Sig Dispensed Refills Start Date End Date albuterol (PROAIR Inhale 2 puffs into 0 5 HFA/PROVENTIL the lungs HFA/VENTOLIN HFA) 108 (90 BASE) MCG/ACT Inhaler ALBUTEROL IN Inhale 2 puffs into 0 12/24/2014 the lungs celecoxib (CELEBREX) 200 Take 200 mg by [...] mouth daily units tabletIndications: Health care maintenance atorvastatin (LIPITOR) 40 Take 1 tablet (40 360 tablet 0 10/201905/31/2020 MG tabletIndications: mg) by mouth daily Hypercholesteremia needle, disp, 18G X 1 Use to draw up 25 each 3 9 05/23/2020 MISCIndications: Gender hormones once weekly dysphoria in adult Needle, Disp, 27G X 5/8 Use once weekly for 25 each 3 05/23/2020 MISCIndications: Gender administering dysphoria in adult hormone IM syringe, disposable, 1 ML Use once weekly to 25 each 3 05/23/2020 MISCIndications: Gender draw up hormones dysphoria in adult testosterone cypionate Inject 0.3 mLs (60 13 mL 1 05/1005/19/2020 (DEPOTESTOSTERONE) 200 mg) into the muscle MG/ML once a week Supply injectionIndications: accounts for Gender dysphoria in adult single-use vials documented as of this encounter Miscellaneous Notes Result Encounter Note - Marce Gallardo MD - 04/11/2020 11:59 PM CDT US showing fatty infiltrate of the liver. Next step is to obtain some labs, then we should have an in-person or video visit to discuss labs and next steps. Ordered as future labs. Cassie Carr 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 documented as of this encounter Procedures Procedure Name Priority Date/Time Associated Diagnosis Comme nts US ABDOMEN LIMITED Routine 04/11/2020 9:54 AM Hepatic steatosi s Results for this CDT procedure are i n the results section. documented in this encounter Results US Abdomen Limited (04/11/2020 9:54 AM CDT) Anatomical Region Laterality Modality Abdomen/Pelvis Ultrasound Specimen (Source) Anatomical Location Collection Method / Collectio n Time Received Time / Laterality Volume Impressions 04/11/2020 11:58 AM CDT IMPRESSION: Fatty infiltration of the liver without focal mass. No gallstones or bile duct dilatation. BENITA LEWIS MD Narrative 04/11/2020 11:58 AM CDT ULTRASOUND ABDOMEN LIMITED 04/11/2020 9:54 AM CLINICAL HISTORY: History of hepatic sidra atosis, monitoring ultrasound, LFTs rising. TECHNIQUE: Limited abdominal ultrasound. COMPARISON: None. FINDINGS: GALLBLADDER: The gallbladder is normal. No gallstones, wall thickening, or pericholecystic fluid. Ne gative sonographic Villa's sign. BILE DUCTS: There is no biliary dilatati on. The common duct measures 3 mm. LIVER: The liver is increased in echogen icity without focal mass. RIGHT KIDNEY: Unremarkable. PANCREAS: The visualized portions of the pancreas are normal. No ascites. Procedure Note Benita Lewis MD - 04/11/2020Form atting of this note might be different from the original. ULTRASOUND ABDOMEN LIMITED 04/11/2020 9: 54 AM CLINICAL HISTORY: History of hepatic sidra atosis, monitoring ultrasound, LFTs rising. TECHNIQUE: Limited abdominal ultrasound. COMPARISON: None. FINDINGS: GALLBLADDER: The gallbladder is normal. No gallstones, wall thickening, or pericholecystic fluid. Ne gative sonographic Villa's sign. BILE DUCTS: There is no biliary dilatati on. The common duct measures 3 mm. LIVER: The liver is increased in echogen icity without focal mass. RIGHT KIDNEY: Unremarkable. PANCREAS: The visualized portions of the pancreas are normal. No ascites. IMPRESSION: Fatty infiltration of the li cecilio without focal mass. No gallstones or bile duct dilatation. BENITA LEWIS MD Darcy [place] DO IMG US ORDERABLES documented in this encounter Visit Diagnoses Diagnosis Hepatic steatosis Other chronic nonalcoholic liver disease documented in this encounter Additional Health Concerns Assessment Noted Time PHQ-9 Depression Total Score: 0 05/10/2019 4:19 PM CIDER PRESS OPERATOR documented as of this encounter Care Teams Raisin Separator Operator Relationship Specialty Start Date End Date Marce Gallardo MD PCP - General Student in organized 05/17/19 07/15/[address] [place] [address] education/training program Bella Sears, General Surgery 11/28/14 Tana Peña MD Plastic Surgery 10/30/[address] [place] [address] [address] [place] [address] Sofiya Keenan MD MD circuit design engineer 01/11/[address] [place] [address] Debby Suggs, NEURODIAGNOSTIC TECH NEURODIAGNOSTIC TECH Plastic Surgery 11/26/16 Aung Salinas MD MD Urology 05/04/18 [address] [place] [address] Dana Jane, RN Registered Nurse Urology 05/04/18 01/15/22 Shahzad Sen MD MD Plastic Surgery 10/08/18 [facility] [address] [place] [address] John Gresham Specialty Care Plastic Surgery 10/08/18 Coordinator Marce Gallardo MD Assigned PCP 11/04/19 07/29/20 [facility] [address] [place] [address] documented as of this encounter
--- OUTSIDE RECORDS SUMMARY | 2022-04-12 08:18 | XMS_ITS | Encounter Summary ---
:1994 Author Organization [facility] Address [address] [place] [address]. [place] [address] Care Team Providers Name Role Phone Bella [...] Gallardo MD Procedures US Abdomen Limited [address] [place] [address] Referral ID Status Reason Start Date Expiration Date Visits Requ ested Visits Authorized [id number] Closed 04/10/2020 04/10/2021 1 1 Encounter Details Date Type Department Care Team Description 03/24/2020 Orders Only [facility] Marce Gallardo MD Hepatic steatosis Clinic [facility] (Primary Dx) [address] [address] [place] [address] [facility] [address] [place], [place] [phone] Social History Tobacco Use Types Packs/Day [...] prosthesis documented as of this encounter Results US Abdomen Limited (04/11/2020 9:54 AM CDT) Anatomical Region Laterality Modality Abdomen/Pelvis Ultrasound Specimen (Source) Anatomical Location Collection Method / Collectio n Time Received Time / Laterality Volume Impressions 04/11/2020 11:58 AM CDT IMPRESSION: Fatty infiltration of the liver without focal mass. No gallstones or bile duct dilatation. ELÍAS LEWIS MD Narrative 04/11/2020 11:58 AM CDT ULTRASOUND ABDOMEN LIMITED 04/11/2020 9:54 AM CLINICAL HISTORY: History of hepatic sidra atosis, monitoring ultrasound, LFTs rising. TECHNIQUE: Limited abdominal ultrasound. COMPARISON: None. FINDINGS: GALLBLADDER: The gallbladder is normal. No gallstones, wall thickening, or pericholecystic fluid. Ne david sonographic Villa's sign. BILE DUCTS: There is no biliary dilatati on. The common duct measures 3 mm. LIVER: The liver is increased in echogen icity without focal mass. RIGHT KIDNEY: Unremarkable. PANCREAS: The visualized portions of the pancreas are normal. No ascites. Procedure Note Elías [place] MD - 04/11/2020Form atting of this [...] mass. No gallstones or bile duct dilatation. ELÍAS LEWIS MD Darcy [place] DO IMG US ORDERABLES documented in this encounter Visit Diagnoses Diagnosis Hepatic steatosis - Primary Other chronic nonalcoholic liver disease Hepatic steatosis Other chronic nonalcoholic liver disease documented in this encounter Additional Health Concerns Assessment Noted Time PHQ-9 Depression Total Score: 0 05/10/2019 4:19 PM FINANCE CONTROLLER documented as of this encounter Care Teams Flame Cutter Relationship Specialty Start Date End Date Marce Gallardo MD PCP - General Student in [facility] 05/17/19 07/15/[address] [place] [address] education/training program Bella Sears, General Surgery 11/28/14 Tana Peña MD Plastic Surgery 10/30/[address] [place] [address] [address] [place], [place] [phone] Sofiya Keenan MD MD loss prevention operations manager 01/11/[address] [facility] [address] [place], [place] [phone] Debby Suggs RADIOISOTOPE PRODUCTION OPERATOR RADIOISOTOPE PRODUCTION OPERATOR Plastic Surgery 11/26/16 Aung Salinas MD MD Urology 05/04/18 [address] [place], [place] [phone] Daan Jane, CASH Registered Nurse Urology 05/04/18 01/15/22 Shahzad Sen MD MD Plastic Surgery 10/08/18 [facility] [address] [place] [address] John Gresham Specialty Care Plastic Surgery 10/08/18 Coordinator Marce Gallardo MD Assigned PCP 11/04/19 07/29/20 [facility] [id number] [place] [phone] documented as of this encounter
--- OUTSIDE RECORDS SUMMARY | 2022-04-12 08:18 | XMS_ITS | Encounter Summary ---
:1995 Author Organization [facility] Address [address] [place] [address]. [place] [address] Care Team Providers Name Role Phone Bella Sears MD Unavailable Tana Peña MD Unavailable Sofiya Keenan MD Unavailable Debby Suggs LPN Unavailable Unavailable Aung Salinas MD Unavailable Dana Jane RN Unavailable Shahzad Sen MD Unavailable John Gresham Unavailable Seun Valladares MD Primary Care Provider [phone] Reason for Visit Reason Comments Refill Request Patient is here for follow u p with hrt Encounter Details Date Type Department Care Team Description 05/10/2019 Office Visit Erika's Family Marce Gallardo, Gender dy sphoria in adult (Primary Dx); Medicine Clinic Hypercholesteremia [address] [facility], [address] [place], [place] CLINIC [id number] [facility] [phone] [place] [address] Social History Tobacco Use Types [...] Sign Reading Time Taken Comments Blood Pressure 135/89 05/10/2019 2:00 PM CUSTOMS VERIFIER Pulse 84 05/10/2019 2:00 PM CUSTOMS VERIFIER Temperature 36.7 ??C (98.1 ??F) 05/10/2019 2:00 PM CUSTOMS VERIFIER Respiratory Rate 16 05/10/2019 2:00 PM CUSTOMS VERIFIER Oxygen Saturation 95% 05/10/2019 2:00 PM CUSTOMS VERIFIER Inhaled Oxygen Concentration - - Weight 85.3 kg (188 lb) 05/10/2019 2:00 PM CUSTOMS VERIFIER Height 165.1 cm (5' 5) 05/10/2019 2:00 PM CUSTOMS VERIFIER Body Mass Index 31.28 05/10/2019 2:00 PM CUSTOMS VERIFIER documented in this encounter Progress Notes Marce Gallardo MD - 05/10/2019 2:20 PM CST HPI Pablo is a 24 year old individual that uses pronouns He/Him/His/Himself that presents today for follow up of: masculinizing hormone therapy. Gender identity: male Any special concerns today? phantom cramping in low abdomen. Lower abdominal cramping seconds, comesonce a week. Moderate. Doesn't pay attention to BMs, no diarrhea. S/p surgery hysterectomy + salppingo-oophorectomy + lower surgery. ??Had right forearm graft, having some right forearm weakness and pain, going to OT/PT Regarding hormones, has been on for 3 years, but inconsistently used due to injection aversion. Has tried patches and gel, but were too expensive. 12/2018 transitioned to subQ T 60 mg weekly, going well, has only missed one week, noticing more changes +++ Shot day of the week? Friday. Due for labs? Yes +++ Refills of meds needed? Yes ?? Has a therapist: seeing them as needed ?? Mood: followed by provider in [place], on pristiq. Would like to continue having this managed by [place] physician. Gender affirmation is being sought in these other ways: lower surgery, with many complications and therefore had to spend a year in [place].upcoming 05/18/19 consultation with the surgeon to remove phallus tissue- does not want to go through more surgeries. --- Past Surgical History: Procedure Laterality Date ??? COLONOSCOPY ??? gender confirmation bottom surgery gender confirmation surgery with creation of neophallus and neoscrotum in [place]. c/b urethra reconstruction and take-down ??? HYSTERECTOMY [...] by mouth daily 90 tablet 3 ??? FLUTICASONE PROPIONATE, NASAL, NA [place] 1 spray in nostril 2 times daily ??? gabapentin (NEURONTIN) 300 MG capsule Take 300 mg by mouth ??? montelukast (SINGULAIR) 10 MG tablet Take 10 mg by mouth At Bedtime ??? needle, disp, 18G X 1 MISC [...] tablet Take 1 tablet by mouth daily 100 tablet 3 ??? desvenlafaxine (PRISTIQ) 50 MG 24 hr tablet Take 50 mg by mouth daily 0 ??? HYDROcodone-acetaminophen (NORCO) 10-325 MG per tablet Take 1 tablet by mouth every 4 hours as needed for severe pain ??? TEMAZEPAM PO Take 15 mg by mouth nightly as needed for sleep 1-2 tabs History Smoking Status ??? Former Smoker ??? Packs/day: 0.25 ??? Types: Cigarettes ??? Quit date: 09/14/2016 Smokeless Tobacco ??? Never Used No Known Allergies Problem, Medication and Allergy Lists were reviewed and are current.. Review of Systems: General ?? Fat redistribution: yes, more stomach ?? Weight change: increase, HEENT ?? Voice change: YES ?? Cardiovascular (CV) ?? Chest Pains: no ?? Shortness of breath: no Chest ?? Decreased exercise tolerance: no ?? Gastrointestinal (GI) ?? Abdominal pain: no ?? Change in appetite: no Skin ?? Acne or oily skin: YES- on back ?? Change in hair: no ?? Genitourinary () ?? Abnormal vaginal bleeding: no s/p hysterectomy and lower surgery ?? Change in libido: yes, increased ?? New sexual partners: no Musculoskeletal ?? Leg pain or swelling: no ?? Psychiatric (Psych) ?? Depression: YES- FH suicide, difficulty motivating self and interest ?? Anxiety/Panic: no ?? Mood: shitty, but recently better Physical Exam: Vitals: 05/10/19 1400 BP: 135/89 Pulse: 84 Resp: 16 Temp: 98.1 ??F (36.7 ??C) TempSrc: Oral SpO2: 95% Weight: 85.3 kg (188 lb) Height: 1.651 m (5' 5) BMI= Body mass index is 31.28 kg/m??. Wt Readings from Last 10 Encounters: 05/10/19 [...] dress GENERAL:: healthy, alert and no distress SKIN: right forearm s/p graft donation with significant scarring and mild skin tightening Neuro: full acute dialysis registered nurse strength bilaterally Psych: Alert and oriented times 3; coherent speech, normal rate and volume, able to articulate logical thoughts, able to abstract reason, no tangential thoughts, no hallucinations or delusions. Affect is full. Labs: CBC, LFT, Lipids, glucose and TT pending Assessment and Plan Pablo was seen today for refill request. Diagnoses and all orders for this visit: Gender dysphoria in adult Doing well on subQ injections, will continue current dose and check labs today. 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 - Testosterone Total - Hepatic Panel - CBC with Diff Plt - Lipid [place] - Glucose - needle, disp, 18G X 1 MISC; Use to draw up hormones once weekly - Needle, Disp, 27G X 5/8 MISC; Use once weekly for administering hormone IM - Discontinue: testosterone cypionate (DEPOTESTOSTERONE) 200 MG/ML injection; Inject 0.3 mLs (60 mg)into the muscle once a week - testosterone cypionate (DEPOTESTOSTERONE) 200 MG/ML injection; Inject 0.3 mLs (60 mg) into the muscle once a week Supply accounts for single-use vials Hypercholesteremia Discussed diet and exercise, Pablo is not feeling confident about lifestyle changes, will start moderate intensity statin today and consider increasing dose if tolerated. - atorvastatin (LIPITOR) 20 mg daily Follow up: Follow up in 3 months. Results by mychart Questions were elicited and answered. Marce Gallardo MD OMS VERIFIER Rachel Martínez MD - 05/10/2019 2:20 PM CST Preceptor Attestation: Patient seen, evaluated and discussed with the resident. I have verified the content of the note, which accurately reflects my assessment of the patient and the plan of care. Supervising Physician: Rachel Martínez MD OMS VERIFIER 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 documented as of this encounter Procedures Procedure Name Priority Date/Time Associated Comments Diagnosis TESTOSTERONE TOTAL Routine 05/10/2019 4:21 PM Gender dysphoria in Results for this CUSTOMS VERIFIER adult procedure are i n the results section. HEPATIC PANEL Routine 05/10/2019 2:47 PM Gender dysphoria in R esults for this (LABDAQ) CUSTOMS VERIFIER adult procedure are i n the results section. GLUCOSE (LABDAQ) Routine 05/10/2019 2:47 PM Gender dysphoria i n Results for this CUSTOMS VERIFIER adult procedure are i n the results section. CBC WITH DIFF PLT Routine 05/10/2019 2:47 PM Gender dysphoria in Results for this (LABDAQ) CUSTOMS VERIFIER adult procedure are i n the results section. LIPID PANEL (LABDAQ) Routine 05/10/2019 2:47 PM Gender dysphor ia in Results for this CUSTOMS VERIFIER adult procedure are i n the results section. documented in this encounter Results Testosterone Total (05/10/2019 4:21 PM CUSTOMS VERIFIER) Analysis Performed At Patho logist Time Signature Testosterone 745 240 - 950 05/12/2019 [facility] Total ng/dL 6:42 AM [facility] Comment: This test was developed and its performa nce characteristics determined by the [facility], ??Special Chemistry Laboratory. It has not been cleared or approved by the FDA. The laboratory is regulated under CLIA as qualified to perform high-comple xity testing. This test is used for clinical purposes. It should not be rega rded as investigational or for research. Specimen Anatomical Collection Method Collection Time Receive d Time (Source) Location / / Volume Laterality Blood specimen VENOUS BLOOD / 05/10/2019 4:21 PM 05/10 4:26 (specimen) Unknown CUSTOMS VERIFIER PM CUSTOMS VERIFIER Rachel Martínez MD LAB - BLOOD ORDERABLES Performing Organization Address City/State/ZIP Code Phon e Number [facility] [address] [place] [address] [facility] Glucose (05/10/2019 2:47 PM CUSTOMS VERIFIER) P athologist Signature Glucose 85.0 70.0 - 99.0 [facility] mg'dL MEDICINE LABDAQ Specimen Anatomical Collection Method Collection Time Receive d Time (Source) Location / / Volume Laterality Blood specimen VENOUS BLOOD / 05/10/2019 2:47 PM 05/10 2:48 (specimen) Unknown CUSTOMS VERIFIER PM CUSTOMS VERIFIER Rachel Martínez MD LAB - LABDAQ Performing Organization Address City/[facility]/ZIP Code Phon e Number [facility] [address] [place] [address] 55 [phone] LABDAQ (ABNORMAL) Lipid [place] (05/10/2019 2:47 PM CUSTOMS VERIFIER) Patholo gist Method Time Signature Cholesterol 327.3 (H) 0.0 - [facility] 200.0 FAMILY mg/dL MEDICINE LABDAQ Cholesterol/HDL 9.8 (H) 0.0 - 5.0 [facility] Ratio FAMILY MEDICINE LAB[facility]Q HDL Cholesterol 33.2 (L) >40.0 [place] mg/dL [facility] Triglycerides 653.4 (H) 0.0 - [facility] 150.0 FAMILY mg/dL MEDICINE LAB[facility]Q VLDL Cholesterol 130.7 (H) 7.0 - [facility] 32.0 FAMILY mg/dL MEDICINE LABDAQ LDL Cholesterol Unable to 0 - 129 [facility] Calculated calculate mg/dL FAMILY Trig >=400 MEDICINE LABDAQ Specimen Anatomical Collection Method Collection Time Receive d Time (Source) Location / / Volume Laterality Blood specimen VENOUS BLOOD / 05/10/2019 2:47 PM 05/10 2:48 (specimen) Unknown CUSTOMS VERIFIER PM CUSTOMS VERIFIER Narrative [facility] - 019 3:23 PM CUSTOMS VERIFIER Triglycerides were >400 mg/dL, unable to calculate the LDL Rachel Martínez MD LAB - LABDAQ Performing Organization Address City/[facility]/ZIP Code Phon e Number [facility] [address] [place] [address] 55 [phone] LABDAQ (ABNORMAL) CBC with Diff Plt (05/10/2019 2:47 PM CUSTOMS VERIFIER) Analysis Performed At [facility] Time Signature WBC 7.3 4.0 - 11.0 [facility] K/uL [facility] LABDAQ Lymphocytes # 3.1 0.8 - 5.3 [facility] K/uL [facility] LABDAQ % Lymphocytes 42.1 20.0 - [facility] 48.0 %L [facility] Mid # 0.5 0.0 - 2.2 [facility] K/uL [facility] LABDAQ Mid % 6.3 0.0 - 20.0 [facility] %M [facility] LAB[facility]Q GRANULOCYTES # 3.8 1.6 - 8.3 [facility] K/uL [facility] LAB[facility] % Granulocytes 51.6 40.0 - [facility] 75.0 %G [facility] LAB[facility] RBC 6.09 (H) 4.40 - [facility] 5.90 M/uL [facility] Hemoglobin 17.1 13.3 - [facility] 17.7 g/dL [facility] Hematocrit 58.2 (H) 40.0 - [facility] 53.0 % [facility] MCV 95.5 78.0 - [facility] 100.0 fL [facility] MCH 28.1 26.5 - [facility] 35.0 pg [facility] MCHC 29.4 (L) 32.0 - [facility] 36.0 g/dL [facility] Platelets 281.0 150.0 - [facility] 450.0 K/uL [facility] LABDAQ Specimen Anatomical Collection Method Collection Time Receive d Time (Source) Location / / Volume Laterality Blood specimen VENOUS BLOOD / 05/10/2019 2:47 PM 05/10 2:48 (specimen) Unknown CUSTOMS VERIFIER PM CUSTOMS VERIFIER Rachel Martínez MD LAB - LABDAQ Performing Organization Address City/State/ZIP Code Phon e Number [facility] [address] [place] [address] [phone] LABDAQ (ABNORMAL) Hepatic Panel (05/10/2019 2:47 PM CUSTOMS VERIFIER) Analysis Performed At [facility] Time Signature Protein Total 8.1 6.8 - 8.8 [facility] g/dL [facility] Albumin 5.0 3.8 - 5.0 [facility] mg/dL [facility] Alkaline 62.0 31.7 - [facility] Phosphatase 110.7 U/L [facility] ALT 40.8 0.0 - 45.0 [facility] U/L [facility] AST 27.3 0.0 - 55.0 [facility] U/L [facility] Bilirubin Direct 0.1 (L) 0.1 - 0.3 [facility] mg/dL [facility] LABDAQ Bilirubin Total <0.4 0.2 - 1.3 [facility] mg/dL [facility] LABDAQ Specimen Anatomical Collection Method Collection Time Receive d Time (Source) Location / / Volume Laterality Blood specimen VENOUS BLOOD / 05/10/2019 2:47 PM 05/10 2:48 (specimen) Unknown CUSTOMS VERIFIER PM CUSTOMS VERIFIER Rachel Martínez MD LAB - LABDAQ Performing Organization Address City/State/[facility] Code Phon e Number [address] [address] LABDAQ documented in this encounter Visit Diagnoses Diagnosis Gender dysphoria in adult - Primary Hypercholesteremia Pure hypercholesterolemia documented in this encounter Additional Health Concerns Assessment Noted Time PHQ-9 Depression Total Score: 0 05/10/2019 4:19 PM CUSTOMS VERIFIER documented as of this encounter Care Teams Electrician Supervisor Relationship Specialty Start Date End Date Seun Valladares PCP - General Student in organized 01/24/19 9 MD Rita [address] education/training [address] [place], [place] [id number] Bella Sears, General Surgery 11/28/14 Tana Peña MD Plastic Surgery 10/30/[address] [place] [address] [address] [place] [address] Sofiya Keenan MD MD spice mixer 01/11/[address] [place] [address] Debby Suggs, FINANCIAL REPORTING DIRECTOR FINANCIAL REPORTING DIRECTOR Plastic Surgery 11/26/16 Aung Salinas MD MD Urology 05/04/18 [address] [place] [address] Dana Jane, RN Registered Nurse Urology 05/04/18 01/15/22 Shahzad Sen MD MD Plastic Surgery 10/08/18 [facility] [address] [place] [address] [facility] Care Plastic Surgery 10/08/18 Coordinator documented as of this encounter
--- OUTSIDE RECORDS SUMMARY | 2022-04-12 08:18 | XMS_ITS | Encounter Summary ---
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 documented as of this encounter Care Teams Slime Plant Operator Relationship Specialty Start Date End Date Marce Gallardo MD PCP - General Student in [facility] 05/17/19 07/15/20 [address] [place] [address] education/training program Bella Sears, General Surgery 11/28/14 Tana Peña MD Plastic Surgery 10/30/15 [address] [facility] [address] [place] [address] Sofiya Keenan MD MD child care attendant 01/11/[address] [place] [address] Debby Suggs, ENVIRONMENTAL ASSISTANT ENVIRONMENTAL ASSISTANT Plastic Surgery 11/26/16 Aung Salinas MD MD Urology 05/04/18 [address] [place] [address] Dana Jane, RN Registered Nurse Urology 05/04/18 01/15/22 Shahzad Sen MD MD Plastic Surgery 10/08/18 [facility] [address] [place] [address] John Gresham [facility] Plastic Surgery 10/08/18 Coordinator Marce Gallardo MD Assigned PCP 11/04/19 07/29/20 [facility] [address] [place] [phone] documented as of this encounter
--- OUTSIDE RECORDS SUMMARY | 2022-04-12 08:18 | XMS_ITS | Encounter Summary ---
:1995 Author Organization [facility] Address [address] [place] [address]. [place] [address] Care Team Providers Name Role Phone Bella Sears MD Unavailable Tana Peña MD Unavailable Sofiya Keenan MD Unavailable Debby Suggs LPN Unavailable Unavailable Aung Salinas MD Unavailable Dana Jane RN Unavailable Shahzad Sen MD Unavailable John Gresham Unavailable Marce Gallardo MD Primary Care Provider Reason for Visit Reason Comments Refill Request patient is here for htr and med refill no other concern Encounter Details Date Type Department Care Team Description 01/12/2019 Office Visit [facility] Marce Gallardo MD Gender dysphoria in Medicine Clinic [facility] adult (Primary Dx) [address] [facility] [address] [id number] [facility] [phone] [place] [address] Social History Tobacco Use Types [...] Sign Reading Time Taken Comments Blood Pressure 123/85 01/12/2019 8:03 AM CDT Pulse 79 01/12/2019 8:03 AM CDT Temperature 36.6 ??C (97.8 ??F) 01/12/2019 8:03 AM CDT Respiratory Rate 16 01/12/2019 8:03 AM CDT Oxygen Saturation 97% 01/12/2019 8:03 AM CDT Inhaled Oxygen Concentration - - Weight 86.5 kg (190 lb 12.8 oz) 01/12/2019 8:03 AM CDT Height 166 cm (5' 5.35) 01/12/2019 8:03 AM CDT Body Mass Index 31.41 01/12/2019 8:03 AM CDT documented in this encounter Patient Instructions Patient InstructionsMarce Gallardo MD - 01/12/2019 8:00 AM CDT Here is the plan from today's visit 1. Gender dysphoria in adult Today we will check labs. Continue T at current dose. Stop by front clerk to schedule injection teaching- smaller needle into abdomen Follow-up in 3 months - testosterone cypionate (DEPOTESTOSTERONE) 200 MG/ML injection; Inject 0.3 mLs (60 mg) into the muscle once a week Dispense: 2 mL; Refill: 0 Thank you for coming to [facility] today. Lab Testing: If you had lab testing today and your results are reassuring or normal they will be mailed to you or sent through [employer] within 7 days. If the lab tests need quick action we will call you with the results. The phone number we will call with results is # [phone] (home) . If this is not the best numberplease call our clinic and change the number. Medication Refills: If you need any refills please call your pharmacy and they will contact us. If you need to roll picker your refill at a new pharmacy, please contact the new pharmacy directly. The new pharmacy will help you get your medications transferred faster. Scheduling: If you have any concerns about today's visit or wish to schedule another appointment please call ouroffice during normal business hours [phone] (8- 5:00 M-F) If a referral was made to a [facility] and you don't get a call from centralscheduling please call [phone]. If a Mammogram was ordered for you at [facility] call [phone] to schedule or change yourappointment. If you had an XRay/CT/Ultrasound/MRI ordered the number is [phone] to schedule or change your radiology appointment. Medical Concerns: If you have urgent medical concerns please call [phone] at any time of the day. Marce Gallardo MD documented in this encounter Progress Notes Marce Gallardo MD - 01/12/2019 8:00 AM CDT HPI Pablo is a 23 year old individual that uses pronouns He/Him/His/Himself that presents today for follow up of: masculinizing hormone therapy. Gender identity: male Has not been seen here at our clinic for HRT since 2017, had bottom surgery with many complications and therefore had to spend a year in [place]. Is planning to go back in about a week for further consultation with the surgeon, had many difficulties with urethra formation and is feeling frustrated, would like to have urethra taken down. Is otherwise happy with how things went. Regarding hormones, has been on for 3 years, but inconsistently uses, due to injection aversion. Hastried patches and gel, but were too expensive. Now back on IM, injecting into thigh, but sometime goes up to 2 weeks without medication due to aversion. States that injecting into the abdomen would be much easier. On hormones? Taking T 60 mg IM- last injection was 1.5 weeks ago +++ Shot day of the week? Doesn't know- inconsistent. Due for labs? Yes +++ Refills of meds needed? Yes Has a therapist: seeing them as needed - 2x/month Mood: followed by provider in [place], recently was switched off paxil and onto a new medication that Pablo cannot remember the name of. Would like to continue having this managed by [place] physician. --- Past Surgical History: Procedure Laterality Date ??? COLONOSCOPY ??? gender confirmation bottom surgery gender confirmation surgery with creation of neophallus and neoscrotum in [place]. c/b urethra reconstruction and take-down ??? HYSTERECTOMY [...] TABS Take 1 tablet by mouth daily 120 tablet 11 ??? gabapentin (NEURONTIN) 300 MG capsule Take 300 mg by mouth ??? montelukast (SINGULAIR) 10 MG tablet Take 10 mg by mouth At Bedtime ??? needle, disp, 18G X 1 MISC Use to draw up hormones once weekly 25 each 3 ??? Needle, Disp, 27G X 5/8 MISC Use once weekly for administering hormone IM 25 each 3 ??? Sharps Container MISC Use each week with sharps 1 each 1 ??? syringe, disposable, 1 ML MISC Use once weekly to draw up hormones 25 each 3 ??? TEMAZEPAM PO Take 15 mg by mouth nightly as needed for sleep 1-2 tabs ??? testosterone cypionate (DEPOTESTOSTERONE) 200 MG/ML injection Inject 0.3 mLs (60 mg) into the muscle once a week 2 mL 0 ??? topiramate (TOPAMAX) 50 MG tablet Take 50 mg by mouth At Bedtime ??? valACYclovir (VALTREX) 500 MG tablet Take 1 tablet by mouth ??? vitamin D3 (CHOLECALCIFEROL) 2000 units tablet Take 1 tablet by mouth daily 100 tablet 3 ??? acetaminophen (TYLENOL) 325 MG tablet Take 2 tablets (650 mg) by mouth every 4 hours as needed for other (surgical pain) (Patient not taking: Reported on 05/04/2018) 100 tablet 1 ??? acyclovir (ZOVIRAX) 5 % ointment Apply topically 6 times daily (Patient not taking: Reported on 07/07/2018) 15 g 3 ??? ALBUTEROL IN Inhale 2 puffs into the lungs ??? FLUTICASONE PROPIONATE, NASAL, NA [place] 1 spray in nostril 2 times daily ??? HYDROcodone-acetaminophen (NORCO) 10-325 MG per tablet Take 1 tablet by mouth every 4 hours as needed for severe pain History Smoking Status ??? Former Smoker ??? Packs/day: 0.25 ??? Types: Cigarettes ??? Quit date: 09/14/2016 Smokeless Tobacco ??? Never Used No Known Allergies Problem, Medication and Allergy Lists were reviewed and are current.. Review of Systems: General ?? Fat redistribution: no ?? Weight change: no HEENT ?? Voice change: YES Cardiovascular (CV) ?? Chest Pains: YES- intermittent ?? Shortness of breath: no Chest ?? Decreased exercise tolerance: no ?? Breast changes/development: no Gastrointestinal (GI) ?? Abdominal pain: no ?? Change in appetite: no Skin ?? Acne or oily skin: YES- on the higher dose ?? Change in hair: no Genitourinary () ?? Abnormal vaginal bleeding: no ?? Change in libido: yes, increased ?? New sexual partners: no Musculoskeletal ?? Leg pain or swelling: no Psychiatric (Psych) ?? Depression: YES- FH suicide, difficulty motivating self and interest ?? Anxiety/Panic: no ?? Mood: okay Physical Exam: Vitals: 01/12/19 0803 BP: 123/85 Pulse: 79 Resp: 16 Temp: 97.8 ??F (36.6 ??C) TempSrc: Oral SpO2: 97% Weight: 86.5 kg (190 lb 12.8 oz) Height: 1.66 m (5' 5.35) BMI= Body mass index is 31.41 kg/m??. Wt Readings from Last 10 Encounters: 01/12/19 86.5 kg (190 lb 12.8 oz) 05/20/18 83.6 kg (184 lb 3.2 oz) 05/04/18 80.8 kg (178 lb 1.6 oz) 01/10/17 66.7 kg (147 lb) 12/03/16 65.4 kg (144 lb 1.6 oz) 11/27/16 64.9 kg (143 lb 1.3 oz) 11/19/16 65.6 kg (144 lb 11.2 oz) 08/07/16 65.9 kg (145 lb 3.2 oz) 06/18/16 68.8 kg (151 lb 9.6 oz) 06/17/16 70.3 kg (155 lb) Appearance: Male appearance and dress GENERAL:: healthy, alert and no distress RESP: lungs clear to auscultation - no rales, no rhonchi, no wheezes CV: regular rates and rhythm, normal S1 S2, no S3 or S4 and no murmur, no click or rub - MS: extremities normal- no gross deformities noted, no edema SKIN: no suspicious lesions, no rashes NEURO: Normal strength and tone, sensory exam grossly normal, mentation intact and speech normal, reflexes symmetric Affect: bright but Nervous Labs: Labs ordered and pending Assessment and Plan Pablo was seen today for refill request. Diagnoses and all orders for this visit: Gender dysphoria in adult Patient on 60 mg weekly IM Testosterone, happy with changes, but has needle aversion, unable to afford gel or patches. Will switch to subQ injections, patient to have injection teaching with RN this coming week. Will continue current dose and check labs today. Need to work on adherence, hopefully switc cesar to SubQ will help. Follow-up in 3 months - Testosterone Total - Hepatic Panel - CBC with Diff Plt - Lipid [place] - Glucose - testosterone cypionate (DEPOTESTOSTERONE) 200 MG/ML injection; Inject 0.3 mLs (60 mg) into the muscle once a week - Needle, Disp, 27G X 5/8 MISC; Use once weekly for administering hormone IM - syringe, disposable, 1 ML MISC; Use once weekly to draw up hormones - needle, disp, 18G X 1 MISC; Use to draw up hormones once weekly Counselled patient about controlled substances: Yes. Details: can never share med! Follow up: Follow up in 3 months. Questions were elicited and answered. Marce Gallardo MD Scooter Carrillo MD - 01/12/2019 8:00 AM CDT Preceptor Attestation: Patient seen, evaluated and discussed with the resident. I have verified the content of the note, which accurately reflects my assessment of the patient and the plan of care. Supervising Physician: Scooter Carrillo MD 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 documented as of this encounter Procedures Procedure Name Priority Date/Time Associated Comments Diagnosis TESTOSTERONE TOTAL Routine 01/12/2019 12:54 Gender dysphoria i n Results for this PM CDT adult procedure are i n the results section. HEPATIC PANEL Routine 01/12/2019 9:06 AM Gender dysphoria in R esults for this (LABDAQ) CDT adult procedure are i n the results section. GLUCOSE (LABDAQ) Routine 01/12/2019 9:06 AM Gender dysphoria i n Results for this CDT adult procedure are i n the results section. CBC WITH DIFF PLT Routine 01/12/2019 9:06 AM Gender dysphoria in Results for this (LABDAQ) CDT adult procedure are i n the results section. LIPID PANEL (LABDAQ) Routine 01/12/2019 9:06 AM Gender dysphor ia in Results for this CDT adult procedure are i n the results section. documented in this encounter Results (ABNORMAL) Testosterone Total (01/12/2019 12:54 PM CDT) [facility] Method Time Signature Testosterone 83 (L) 240 - 950 01/14/2019 [facility] Total ng/dL 5:45 PM CDT [facility] Comment: This test was developed and its performa nce characteristics determined by the [facility], ??Special Chemistry Laboratory. It has not been [...] Volume Laterality Blood specimen VENOUS BLOOD / 01/12/2019 12:54 019 (specimen) Unknown PM CDT 12:58 PM CDT Scooter Carrillo MD LAB - BLOOD ORDERABLES Performing Organization Address City/State/ZIP Code Phon e Number [facility] [address] [place] [address] [facility] Glucose (01/12/2019 9:06 AM CDT) P athologist Signature Glucose 82.0 70.0 - 99.0 [place] [facility]ILY mg'dL MEDICINE LABDAQ Specimen Anatomical Collection Method Collection Time Receive d Time (Source) Location / / Volume Laterality Blood specimen VENOUS BLOOD / 01/12/2019 9:06 AM 01/12 9:06 (specimen) Unknown CDT AM CDT Scooter Carrillo MD LAB - LABDAQ Performing Organization Address City/State/ZIP Code Phon e Number [facility] [address] [place], [place] [address] LAB[facility]Q (ABNORMAL) Lipid [place] (01/12/2019 9:06 AM CDT) Patholo gist Method Time Signature Cholesterol 359.1 (H) 0.0 - [place] 200.0 FAMILY mg/dL MEDICINE LAB[facility]Q Cholesterol/HDL 8.0 (H) 0.0 - 5.0 [place] Ratio [facility]ILY MEDICINE [facility] HDL Cholesterol 44.9 >40.0 [place] mg/dL [facility] LDL Cholesterol 237 (H) 0 - 129 [place] Calculated mg/dL [facility] Triglycerides 384.4 (H) 0.0 - [place] 150.0 FAMILY mg/dL MEDICINE [facility] VLDL Cholesterol 76.9 (H) 7.0 - [place] 32.0 FAMILY mg/dL MEDICINE LABDAQ Specimen Anatomical Collection Method Collection Time Receive d Time (Source) Location / / Volume Laterality Blood specimen VENOUS BLOOD / 01/12/2019 9:06 AM 01/12 9:06 (specimen) Unknown CDT AM CDT Scooter Carrillo MD LAB - LABDAQ Performing Organization Address City/State/[facility] Code Phon e Number [facility] [address] [place] [phone] LAB[facility]Q (ABNORMAL) CBC with Diff Plt (01/12/2019 9:06 AM CDT) Analysis Performed At Patho logist Time Signature WBC 7.2 4.0 - 11.0 [place] K/uL FAMILY MEDICINE LABDAQ Lymphocytes # 2.4 0.8 - 5.3 [place] K/uL [facility] LAB[facility] % Lymphocytes 33.7 20.0 - [place] 48.0 %L [facility] Mid # 0.7 0.0 - 2.2 [place] K/uL [facility] LAB[facility] Mid % 9.2 0.0 - 20.0 [place] %M [facility]ILY [facility]IC[facility] GRANULOCYTES # 4.1 1.6 - 8.3 [place] K/uL [facility] % Granulocytes 57.1 40.0 - [place] 75.0 %G [facility] RBC 5.25 4.40 - [place] 5.90 M/uL [facility] Hemoglobin 15.6 13.3 - [place] 17.7 g/dL [facility] Hematocrit 49.2 40.0 - [place] 53.0 % [facility] MCV 93.7 78.0 - [place] 100.0 fL [facility] MCH 29.7 26.5 - [place] 35.0 pg [facility] MCHC 31.7 (L) 32.0 - [place] 36.0 g/dL [facility] Platelets 273.0 150.0 - [place] 450.0 K/uL [facility]INE LAB[facility] Specimen Anatomical Collection Method Collection Time Receive d Time (Source) Location / / Volume Laterality Blood specimen VENOUS BLOOD / 01/12/2019 9:06 AM 01/12 9:06 (specimen) Unknown CDT AM CDT Scooter Carrillo MD LAB - LABDAQ Performing Organization Address City/State/[facility] Code Phon e Number [facility] [address] [place] [phone] LAB[facility]Q (ABNORMAL) Hepatic Panel (01/12/2019 9:06 AM CDT) [facility] gist Method Time Signature Albumin 5.0 3.8 - 5.0 [place] mg/dL [facility] Alkaline 62.2 31.7 - [place] Phosphatase 110.7 U/L [facility] ALT 55.5 (H) 0.0 - 45.0 [place] U/L [facility] AST 29.9 0.0 - 55.0 [place] U/L [facility] Bilirubin Direct 0.1 0.1 - 0.3 [place] mg/dL [facility] Bilirubin Total 0.4 0.2 - 1.3 [place] mg/dL [facility] Protein Total 8.3 6.8 - 8.8 [place] g/dL [facility] Specimen Anatomical Collection Method Collection Time Receive d Time (Source) Location / / Volume Laterality Blood specimen VENOUS BLOOD / 01/12/2019 9:06 AM 01/12 9:06 (specimen) Unknown CDT AM CDT Scooter Carrillo MD LAB - LABDAQ Performing Organization Address City/State/ZIP Code Phon e Number [facility] [address] [place] [phone] LABDAQ documented in this encounter Visit Diagnoses Diagnosis Gender dysphoria in adult - Primary documented in this encounter Additional Health Concerns Assessment Noted Time PHQ-9 Depression Total Score: 0 01/11/2017 7:28 AM CDT documented as of this encounter Care Teams Counter Tacker Relationship Specialty Start Date End Date Marce Gallardo MD PCP - General Student in organized 01/12/19 01/23/[address] [place] [id number] education/training program Bella Sears, General Surgery 11/28/14 Tana Peña MD Plastic Surgery 10/30/[address] [place] [address] [address] [place] [address] Sofiya Keenan MD MD sports betting manager 01/11/[address] [place] [address] Debby Suggs, BOLT MAN BOLT MAN Plastic Surgery 11/26/16 Aung Salinas MD MD Urology 05/04/18 [address] [place] [address] Dana Jane, CASH Registered Nurse Urology 05/04/18 01/15/22 Shahzad Sen MD MD Plastic Surgery 10/08/18 [facility] [address] [place] [address] John Gresham [facility] Plastic Surgery 10/08/18 Coordinator documented as of this encounter
--- OUTSIDE RECORDS SUMMARY | 2022-04-12 08:18 | XMS_ITS | Encounter Summary ---
:1995 Author Organization [facility] Address [address] [place] [address] Care Team Providers Name Role Phone Bella Sears MD Unavailable Tana Peña MD Unavailable Sofiya Keenan MD Unavailable Miguelina Wise DO Primary Care Provider Debby Suggs LPN Unavailable Unavailable Aung Salinas MD Unavailable Dana Jane RN Unavailable Encounter Details Date Type Department Care Team Description 07/07/2018 Travel Social History Tobacco Use Types Packs/Day [...] documented as of this encounter Care Teams Bobcat Driver/Labor Relationship Specialty Start Date End Date Miguelina Wise, PCP - General Student in organized 12/13/16 01/11/19 health care education/training program Bella Sears MD General Surgery 11/28/14 Tana Peña MD Plastic Surgery 10/30/[address] [place] [address] [address] [place] [address] Sofiya Keenan MD MD gastroenterology physician 01/11/[address] [facility] [address] [place] [address] Debby Suggs, METER INSTALLER AND REMOVER METER INSTALLER AND REMOVER Plastic Surgery 11/26/16 Aung Salinas MD MD Urology 05/04/18 [address] [place] [address] Dana Jane, RN Registered Nurse Urology 05/04/18 01/15/22 documented as of this encounter
--- OUTSIDE RECORDS SUMMARY | 2022-04-12 08:18 | XMS_ITS | Encounter Summary ---
:1995 Author Organization [facility] Address [address] [place] [address] Care Team Providers Name Role Phone Bella Sears MD Unavailable Tana Pñea MD Unavailable Sofiya Keenan MD Unavailable Debby Suggs LPN Unavailable Unavailable Aung Salinas MD Unavailable Dana Jane RN Unavailable Shahzad Sen MD Unavailable John Gresham Unavailable Marce Gallardo MD Primary Care Provider Encounter Details Date Type Department Care Team Description 01/12/2019 Travel Social History Tobacco Use Types Packs/Day [...] documented as of this encounter Care Teams Court Bailiff Or Sheriff Relationship Specialty Start Date End Date Marce Gallardo MD PCP - General Student in [facility] 01/12/19 01/23/[address] [address] education/training program Bella Sears, General Surgery 11/28/14 Tana Peña MD Plastic Surgery 10/30/[address] [facility] [address] [place] [address] Sofiya Keenan MD MD paramedic 01/11/[address] [place] [address] Debby Suggs LPN LEAF STAMPER Plastic Surgery 11/26/16 Aung Salinas MD MD Urology 05/04/18 [address] [place] [address] Dana Jane, CASH Registered Nurse Urology 05/04/18 01/15/22 Shahzad Sen MD MD Plastic Surgery 10/08/18 [facility] [address] [place], [place] [id number] John Gresham [facility] Care Plastic Surgery 10/08/18 Coordinator documented as of this encounter
--- OUTSIDE RECORDS SUMMARY | 2022-04-12 08:18 | XMS_ITS | Encounter Summary ---
:1995 Author Organization [facility] Address [address] [place] [address] Care Team Providers Name Role Phone Bella Sears MD Unavailable Tana Peña MD Unavailable Sofiya Keenan MD Unavailable Miguelina Wise DO Primary Care Provider [phone] Debby Suggs LPN Unavailable Unavailable Aung Salinas MD Unavailable Dana Jane RN Unavailable Reason for Visit Reason Comments Consult Urethral Stricture Encounter Details Date Type Department Care Team Description 07/07/2018 [facility] Regi Sen MD Gender dysphoria in Reconstructive Surge [facility] adult (Primary Dx) [address] [address] [place], [place] [phone] (Wo rk) Social History Tobacco Use Types [...] Sign Reading Time Taken Comments Blood Pressure 132/93 07/07/2018 6:07 PM MACHINE DESIGNER Pulse 108 07/07/2018 6:07 PM MACHINE DESIGNER Temperature 36.7 ??C (98.1 ??F) 07/07/2018 6:07 PM MACHINE DESIGNER Respiratory Rate - - Oxygen Saturation 98% 07/07/2018 6:07 PM MACHINE DESIGNER Inhaled Oxygen Concentration - - Weight - - Height 162.6 cm (5' 4) 07/07/2018 6:07 PM MACHINE DESIGNER Body Mass Index - - documented in this encounter Progress Notes Shahzad Sen MD - 07/07/2018 6:15 PM CST REFERRING PROVIDER: Aung Salinas REASON FOR CONSULTATION: Gender dysphoria, urethral reconstruction status post phalloplasty. HPI: Patient is a 23-year-old trans-man who prefers he him pronouns, referred to me by Dr. Salinas for possible urethral reconstruction status post phalloplasty. Patient underwent free radial forearm flap phalloplasty at an outside institution in October of 2017. Patient reports this was complicated by urethral issues, requiring multiple revision procedures. Patient is a poor historian. He is unable to recall details and is unsure of his phalloplasty surgical course. He currently voids through a perineal urethrostomy. He wishes for urethral reconstruction. He also reports a painful area along the phallus. He is unhappy with the appearance of the flap donor site. MEDS: Prior to Admission medications Medication Sig Start Date End Date Taking? Authorizing Provider Calcium Citrate 200 MG TABS Take 1 tablet by mouth daily 01/04/16 Yes Christopher Ji MD gabapentin (NEURONTIN) 300 MG capsule Take 300 mg by mouth 04/22/18 Yes Reported, Patient insulin syringe 31G X 10/29 0.5 ML MISC 1 applicator once a week 01/04/16 Yes Christopher Ji MD montelukast (SINGULAIR) 10 MG tablet Take 10 mg by mouth At Bedtime Yes Reported, Patient Sharps Container MISC Use each week with sharps 03/23/15 Yes Christopher Ji MD Syringe/Needle, Disp, 18G X 1 1 ML MISC 1 each every 7 days 07/07/17 Yes Ana Rosa Pete MD Syringe/Needle, Disp, 22G X 1-1/2 1 ML MISC 1 each every 7 days 06/17/16 Yes Skip Bianchi MD TEMAZEPAM PO Take 15 mg by mouth nightly as needed for sleep 1-2 tabs Yes Reported, Patient testosterone cypionate (DEPOTESTOTERONE) 200 MG/ML injection Inject 0.3 mLs (60 mg) into the muscle once a week 01/10/17 Yes Doug Dotson MD topiramate (TOPAMAX) 50 MG tablet Take 50 mg by mouth At Bedtime Yes Reported, Patient acetaminophen (TYLENOL) 325 MG tablet Take 2 tablets (650 mg) by mouth every 4 hours as needed for other (surgical pain) Patient not taking: Reported on 05/04/2018 03/15/16 Marce Mares MD acyclovir (ZOVIRAX) 5 % ointment Apply topically 6 times daily Patient not taking: Reported on 07/07/2018 06/17/16 Skip Bianchi MD albuterol (PROAIR HFA/PROVENTIL HFA/VENTOLIN HFA) 108 (90 BASE) MCG/ACT Inhaler Inhale 2 puffs into the lungs 12/24/14 Reported, Patient ALBUTEROL IN Inhale 2 puffs into the lungs 12/24/14 Reported, Patient Cholecalciferol (VITAMIN D) 2000 UNITS tablet Take 2,000 Units by mouth daily Patient not taking: Reported on 07/07/2018 03/25/17 Ana Rosa Pete MD FLUTICASONE PROPIONATE, NASAL, NA Berger 1 spray in nostril 2 times daily Reported, Patient HYDROcodone-acetaminophen (NORCO) 10-325 MG per tablet Take 1 tablet by mouth every 4 hours as needed for severe pain Reported, Patient PARoxetine (PAXIL) 20 MG tablet Take 20 mg by mouth daily 06/13/17 Reported, Patient phenazopyridine (PYRIDIUM) 100 MG tablet Take 1 tablet (100 mg) by mouth 3 times daily as needed forurinary tract discomfort Patient not taking: Reported on 07/07/2018 05/04/18 Bonita Guzmán PA-C testosterone cypionate (DEPOTESTOTERONE CYPIONATE) 200 MG/ML injection Inject 0.4 mLs (80 mg) into the muscle once a week for 5 doses 09/28/15 10/27/15 Christopher Ji MD testosterone cypionate (DEPOTESTOTERONE CYPIONATE) 200 MG/ML injection Inject 0.4 mLs (80 mg) into the muscle once a week for 5 doses 10/27/15 11/25/15 Christopher Ji MD testosterone cypionate (DEPOTESTOTERONE CYPIONATE) 200 MG/ML injection Inject 0.5 mLs (100 mg) into the muscle once a week for 4 doses 06/13/15 07/05/15 Jose Rafael Sheppard MD valACYclovir (VALTREX) 500 MG tablet Take 1 tablet by mouth 11/22/14 Reported, Patient ALLERGIES: No Known Allergies PMH: Past Medical History: Diagnosis Date ??? Allergic rhinitis ??? Asperger syndrome ??? Chronic migraine ??? Concussion ??? [id number] transgender person ??? Herpes genitalia ??? Sleep disorder ??? Uncomplicated asthma PSH: Past Surgical History: Procedure Laterality Date ??? COLONOSCOPY ??? HYSTERECTOMY TOTAL ABDOMINAL, BILATERAL SALPINGO-OOPHORECTOMY, COMBINED Bilateral 03/12/2016 Procedure: COMBINED HYSTERECTOMY TOTAL ABDOMINAL, SALPINGO-OOPHORECTOMY; Surgeon: Sofiya Keenan MD; Location: [facility] OR ??? TRANSGENDER MASTECTOMY Bilateral 11/27/2016 Procedure: TRANSGENDER MASTECTOMY; Bilateral Subcutaneous Mastectomies, Nipple Grafts OnQ; Surgeon:Tana Peña MD; Location: [facility] OR ??? wisdom teeth removed SH: Social History Tobacco Use ??? Smoking status: Former Smoker Packs/day: 0.25 Types: Cigarettes Last attempt to quit: 09/14/2016 Years since quittin.8 ??? Smokeless tobacco: Never Used Substance Use Topics ??? Alcohol use: Yes Comment: rarely FH: Family History Problem Relation Age of Onset ??? Hypertension Mother ??? Diabetes Father ??? Diabetes Other ??? Coronary Artery Disease Other ??? Other Cancer Other ??? Colon Cancer No family hx of ??? Cerebrovascular Disease No family hx of ??? Breast Cancer No family hx of ??? Hyperlipidemia No family hx of ROS: Denies chest pain, shortness of breath, OR, CVA, diabetes, DVT, PE, and bleeding disorders. PHYSICAL EXAMINATION: BP (!) 132/93 Pulse 108 Temp 98.1 ??F (36.7 ??C) (Oral) Ht 1.626 m (5' 4) SpO2 98% BMI 31.62 kg/m?? General: In no acute distress. Appears masculine. On examination of the abdomen, skin pinch is greater than 5 cm. On examination of the groin, left groin with a linear incision from phalloplasty. Right groin with atattoo over the ASIS. Skin pinch there is 1 cm. Lateral to that area, skin pinch is 2 cm. Skin is elastic, but there is tightness and only about 5 cm of tissue will be obtainable with a primary closure. Bilateral thighs with greater than 5 cm of skin pinch. Back with greater than 5 cm of skin pinch. Left forearm with distal forearm tattoos both volarly and dorsally. Skin pinch is less than 1 cm. ASSESSMENT: Gender dysphoria status post free radial forearm flap phalloplasty, complicated by urethral fistula, nonspecific genital pain, and forearm donor site appearance. PLAN: I recommended a right pedicled extended SCIP flap is needed for urethral reconstruction at thelevel of the perineal urethrostomy. Given his obese body habitus, I am requesting patient lose a significant amount of weight prior to committing to surgery. I will see the patient back once weight loss has been achieved. Given that his flap donor site appears to have healed very well, patient is to allow scarring to mature. Total time spent with patient was 30 min of which greater than 50% was in counseling. INE DESIGNER documented in this encounter Nursing Notes Gene Wilder EMT - 07/07/2018 6:15 PM CST Chief Complaint Patient presents with ??? Consult Urethral Stricture Vitals: 07/07/18 1807 BP: (!) 132/93 Pulse: 108 Temp: 98.1 ??F (36.7 ??C) TempSrc: Oral SpO2: 98% Height: 1.626 m (5' 4) Body mass index is 31.62 kg/m??. KENROY Spencer on 07/07/2018 at 6:12 PM INE DESIGNER documented in this encounter Plan of Treatment [...] documented as of this encounter Care Teams Complex Care Nurse Relationship Specialty Start Date End Date Miguelina Wise, LILIBETH - General Student in [facility] 12/13/16 01/11/19 [facility] education/training program Bella Sears MD General Surgery 11/28/14 Tana Peña MD Plastic Surgery 10/30/[address] [place] [address] [facility] [address] [place] [address] Sofiya Keenan MD MD die storage worker 01/11/[address] [place] [address] Debby Suggs LPN NEON SIGN INSTALLER Plastic Surgery 11/26/16 Aung Salinas MD MD Urology 05/04/18 [address] [place] [address] Dana Jane, CASH Registered Nurse Urology 05/04/18 01/15/22 documented as of this encounter
--- OUTSIDE RECORDS SUMMARY | 2022-04-12 08:18 | XMS_ITS | Encounter Summary ---
:1994 Author Organization [facility] Address [address] [place] [address]. [place] [address] Care Team Providers Name Role Phone Bella Sears MD Unavailable Tana Peña MD Unavailable Sofiya Keenan MD Unavailable Debby Suggs LPN Unavailable Unavailable Aung Salinas MD Unavailable Dana Jane RN Unavailable Shahzad Sen MD Unavailable John Gresham Unavailable Marce Gallardo MD Primary Care Provider Marce Gallardo MD Unavailable Reason for Visit Reason Onset Date Comments Referral 04/04/2020 Encounter Details Date Type Department Care Team Description 04/04/2020 Telephone [facility] Marce Gallardo MD Referral [address] [address] [place], [place] [address] [place], [place] [phone] (Wo rk) Social History Tobacco Use [...] been in contact with No / Unsure 03/27/2020 4:15 PM CDT someone who was confirmed or 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 documented as of this encounter Miscellaneous Notes Telephone Encounter - Lily Hall RN - 04/04/2020 11:13 AM CDT Order printed and faxed, receipt confirmed. Lily Hall RN Telephone Encounter - Fanny Garcia - 04/04/2020 11:08 AM CDT Patient requesting to have PT referral faxed to [facility]: [phone], ATTN: [place]. Patient is scheduled with facility today. Please advise. 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 documented as of this encounter Visit Diagnoses Not on filedocumented in this encounter Additional Health Concerns Assessment Noted Time PHQ-9 Depression Total Score: 0 05/10/2019 4:19 PM SHOWER ENCLOSURE INSTALLER documented as of this encounter Care Teams Green Feed Attendant Relationship Specialty Start Date End Date Marce Gallardo MD PCP - General Student in [facility] 05/17/19 07/15/202019 [address], [place] [address] education/training program Bella Sears, General Surgery 11/28/14 Tana Peña MD Plastic Surgery 10/30/[address] [place] [address] [address] [place] [address] Sofiya Keenan MD MD baked goods stock clerk 01/11/16 [address] [facility] [place] [facility] [address] [place] [address] Debby Suggs, GRAVEL HAULER GRAVEL HAULER Plastic Surgery 11/26/16 Aung Salinas MD MD Urology 05/04/18 [address] [place], [place] [address] Dana Jane, RN Registered Nurse Urology 05/04/18 01/15/22 Shahzad Sen MD MD Plastic Surgery 10/08/18 [facility] [address] [place] [address] John Gresham [facility] Plastic Surgery 10/08/18 Coordinator Marce Gallardo MD Assigned PCP 11/04/19 07/29/[id number] [place] [phone] documented as of this encounter
--- OUTSIDE RECORDS SUMMARY | 2022-04-12 08:18 | XMS_ITS | Encounter Summary ---
:1994 Author Organization [facility] Address [address] [place] [address] Care Team Providers Name Role Phone Bella Seras MD Unavailable Tana Peña MD Unavailable Sofiya Keenan MD Unavailable Debby Suggs LPN Unavailable Unavailable Aung Salinas MD Unavailable Dana Jane RN Unavailable Shahzad Sen MD Unavailable John Gresham Unavailable Marce Gallardo MD Primary Care Provider Marce Gallardo MD Unavailable Encounter Details Date Type Department Care Team Description 04/18/2020 Travel Social History Tobacco Use Types Packs/Day [...] been in contact with No / Unsure 04/18/2020 1:43 PM FUNDRAISING DIRECTOR someone who was confirmed or suspected to [...] Depression Total Score: 0 05/10/2019 4:19 PM FUNDRAISING DIRECTOR documented as of this encounter Care Teams Sponsorship Manager Relationship Specialty Start Date End Date Marce Gallardo MD PCP - General Student in [employer] 05/17/19 07/15/20 [address] [place] [address] education/training program Bella Sears, General Surgery 11/28/14 Tana Peña MD Plastic Surgery 10/30/15 [address] [facility] [address] [place] [address] Sofiya Keenan MD MD instructional designer 01/11/[address] [place] [address] Debby Suggs LPN HOTBED LEVER OPERATOR Plastic Surgery 11/26/16 Aung Salinas MD MD Urology 05/04/18 [address] [place] [address] Dana Jane, CASH Registered Nurse Urology 05/04/18 01/15/22 Shahzad Sen MD MD Plastic Surgery 10/08/18 [facility] [address] [place] [address] John Gresham [facility] Pl[facility] Surgery 10/08/18 Coordinator Marce Gallardo MD Assigned PCP 11/04/19 07/29/20 [facility] [address] [place] [phone] documented as of this encounter
--- OUTSIDE RECORDS SUMMARY | 2022-04-12 08:18 | XMS_ITS | Encounter Summary ---
:1994 Author Organization [facility] Address [address] [place] [address] Care Team Providers Name Role Phone Bella Sears MD Unavailable Tana Peña MD Unavailable Sofiya Keenan MD Unavailable Miguelina Wise DO Primary Care Provider Debby Suggs LPN Unavailable Unavailable Aung Salinas MD Unavailable Dana Jane RN Unavailable Reason for Visit Reason Onset Date Comments Call Back 07/14/2018 Discuss pt Encounter Details Date Type Department Care Team Description 07/14/2018 Telephone [facility] Urology and Aung Salinas Cal l Back (Discuss pt) [facility] Urologic Cancers [address] [place] [id number] [place] [address] [phone] (Work) [phone] Social History Tobacco Use Types Packs/Day Years Used Date Smoking Tobacco: Former Cigarettes 0.3 Quit : 09/14/2016 Smokeless Tobacco: Never Alcohol Use Standard Drinks/Week Comments Yes 0 (1 standard drink = 0.6 oz pure alcoho l) rarely Sex Assigned at Date Recorded Female 03/20/2020 2:05 PM CDT documented as of this encounter Miscellaneous Notes Telephone Encounter - Bela Dorado, FLAKER OPERATOR - 07/22/2018 11:[address] Bella Sears office was called and provider with Dr. Aung Salinas pager number [phone]. Bela Dorado MA RMATION ENGINEER Telephone Encounter - Bela Dorado CMA - 07/14/2018 3:16 PM INFORMATION ENGINEER Message left on Dr. Sears voicemail stating that Dr. Salinas is not in clinic today. Dr. Carr number was provided for Dr. Sears could try to get in touch with him after her clinic. Message forward to Dr. Salinas and his RNCC Dana Reddycassie Dorado MA RMATION ENGINEER Telephone Encounter - Suzy Diana - 07/14/2018 2:30 PM CST [facility] Call Center Phone Message May a detailed message be left on voicemail: yes Reason for Call: Other: Dr. Bella Sears would like to speak with Dr. Salinas regarding this pt. No specifics were given as to why. Action Taken: Message routed to: [facility] RMATION ENGINEER documented in this encounter Plan of Treatment [...] documented as of this encounter Care Teams Mannequin Decorator Relationship Specialty Start Date End Date Miguelina Wise, LILIBETH - General Student in organized 12/13/16 01/11/19 health care education/training program Bella Sears MD General Surgery 11/28/14 Tana Peña MD Plastic Surgery 10/30/15 [address] [facility] [address] [place] [address] Sofiya Keenan MD MD biofuels plant construction worker 01/11/[address] [place] [address] Debby Suggs, GLAZIER SUPERVISOR GLAZIER SUPERVISOR Plastic Surgery 11/26/16 Aung Salinas MD MD Urology 05/04/18 [address] [place] [address] Dana Jane, CASH Registered Nurse Urology 05/04/18 01/15/22 documented as of this encounter
--- OUTSIDE RECORDS SUMMARY | 2022-04-12 08:18 | XMS_ITS | Encounter Summary ---
:1994 Author Organization [facility] Address [address] [place] [address]. [place] [address] Care Team Providers Name Role Phone Bella Sears MD Unavailable Tana Peña MD Unavailable Sofiya Keenan MD Unavailable Miguelina Wise DO Primary Care Provider [phone] Debby Suggs LPN Unavailable Unavailable Aung Salinas MD Unavailable Dana Jane RN Unavailable Reason for Visit Reason Onset Date Comments Refill Request 07/17/2018 Vitamin D3 Encounter Details Date Type Department Care Team Description 07/17/2018 Refill [facility] Miguelina Wise Refill Re quest ([facility] DO Tana D3) [address] [place] [address] [place] [address] [place], [place] [phone] (Wo rk) Social History Tobacco Use Types Packs/Day Years Used Date Smoking Tobacco: Former Cigarettes 0.3 Quit : 09/14/2016 Smokeless Tobacco: Never Alcohol Use Standard Drinks/Week Comments Yes 0 (1 standard drink = 0.6 oz pure alcoho l) rarely Sex Assigned at Date Recorded Female 03/20/2020 2:05 PM CDT documented as of this encounter Miscellaneous Notes Telephone Encounter - Arline Campo CMA - 07/17/2018 7:34 AM CST Request for medication refill: Providers if patient needs an appointment and you are willing to give a one month supply please refill for one month and send a letter/MyChart using .SMILLIMITEDREFILL .smillimited and route chart toP [facility] (Giving one month refill in non controlled medications is strongly recommended before denial) If refill has been denied, meaning absolutely no refills without visit, please complete the smart phrase .smirxrefuse and route it to the [facility] MED REFILLS pool to inform the patient and the pharmacy. Arline Campo CMA NE SERVICE REPAIRER 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 documented as of this encounter Visit Diagnoses Diagnosis Health care maintenance Unspecified general medical examination documented in this encounter Additional Health Concerns Assessment Noted Time PHQ-9 Depression Total Score: 0 01/11/2017 7:28 AM CDT documented as of this encounter Care Teams Mushroom Farmer Relationship Specialty Start Date End Date Miguelina Wise, PCP - General Student in [facility] 12/13/16 01/11/19 health care education/training program Bella Sears MD General Surgery 11/28/14 Tana Peña MD Plastic Surgery 10/30/[address] [place] [address] Sofiya Keenan MD MD desktop support engineer 01/11/[address] [place] [address] Debby Suggs, BENEFITS TECHNICIAN BENEFITS TECHNICIAN Plastic Surgery 11/26/16 Aung Salinas MD MD Urology 05/04/18 [address] [place] [address] Dana Jane, RN Registered Nurse Urology 05/04/18 01/15/22 documented as of this encounter
--- OUTSIDE RECORDS SUMMARY | 2022-04-12 08:18 | XMS_ITS | Encounter Summary ---
:1994 Author Organization [facility] Address [address] [place] [address] Care Team Providers Name Role Phone Bella Sears MD Unavailable Tana Peña MD Unavailable Sofiya Keenan MD Unavailable Debby Suggs LPN Unavailable Unavailable Aung Salinas MD Unavailable Dana Jane RN Unavailable Shahzad Sen MD Unavailable John Gresham Unavailable Marce Gallardo MD Primary Care Provider Marce Gallardo MD Unavailable Encounter Details Date Type Department Care Team Description 03/27/2020 Travel Social History Tobacco Use Types Packs/Day [...] Depression Total Score: 0 05/10/2019 4:19 PM FORENSIC IDENTIFICATION SPECIALIST documented as of this encounter Care Teams Template Cutter Relationship Specialty Start Date End Date Marce Gallardo MD PCP - General Student in [employer] [email or web address] 05/17/19 07/15/20 [address] [place] [address] education/training program Bella Sears, General Surgery 11/28/14 Tana Peña MD Plastic Surgery 10/30/15 [facility] [address] [place] [address] Sofiya Keenan MD MD research and insights executive 01/11/[address] [place] [address] Debby Suggs, EP TECHNOLOGIST EP TECHNOLOGIST Plastic Surgery 11/26/16 Aung Salinas MD MD Urology 05/04/18 [address] [place] [address] Dana Jane, RN Registered Nurse Urology 05/04/18 01/15/22 Shahzad Sen MD MD Plastic Surgery 10/08/18 [facility] [address] [place] [address] John Gresham [facility] Plastic Surgery 10/08/18 Coordinator Marce Gallardo MD Assigned PCP 11/04/19 07/29/20 [facility] [address] [place] [phone] documented as of this encounter
--- OUTSIDE RECORDS SUMMARY | 2022-04-12 08:19 | XMS_ITS | Encounter Summary ---
:1995 Author Organization [facility] Address [address] [place] [address] Care Team Providers Name Role Phone Bella Sears MD Unavailable Tana Peña MD Unavailable EreSofiya mullins MD Unavailable Miguelina Wise DO Primary Care Provider [phone] Debby Suggs FORM STRIPPER Unavailable Unavailable Reason for Visit Reason Comments Surgical Followup follow up from surgery DOS Encounter Details Date Type Department Care Team Description 08/19/2017 Office Visit Health Plastic and Tana Peña S/P b ilateral mastectomy (Primary Dx); Reconstructive Surge cecilia Hollingsworth MD Striae [address] [facility] [address] [facility] 4th Floor [facility] [address] [place] [address] [phone] Social History Tobacco Use Types Packs/Day Years Used Date Smoking Tobacco: Former Cigarettes 0.3 Quit : 09/14/2016 Alcohol Use Standard Drinks/Week Comments Yes 0 (1 standard drink = 0.6 oz pure alcoho l) rarely Sex Assigned at Date Recorded Female 03/20/2020 2:05 PM CDT documented as of this encounter Progress Notes Tana Peña MD - 08/19/2017 4:00 PM CST PLASTICS FOLLOW UP This 22 year old trans male is here for a 9 month postop follow up. He had bilateral SQ mastectomieswith nipple grafts and he is OK with the results. He has noted some new striae within the last few months as he has become more active. He has FROM with occasional scar tenderness, and was using B [employer] oils from [employer] on a PRNbasis to help fade the scars. On exam, he has fairly good contour and symmetry. The attenuated scars are fading. There are newer hyperemic transverse striae across both upper skin flaps, more prominent on the left. These do not seem to be related to lines of tension with ROM. Both lateral incisions are slightly full but not truedogear deformities. There is more of a curved lower incision on the left medial side. Photos were taken with verbal permission. He is scheduled for bottom surgery with Dr Thomas in October so we will see him back on a PRN basis. Hopefully things will go well for him in [place]. 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 documented in this encounter Additional Health Concerns Assessment Noted Time PHQ-9 Depression Total Score: 0 01/11/2017 7:28 AM CDT documented as of this encounter Care Teams [employer] Reading Teacher Relationship Specialty Start Date End Date Miguelina Wise DO PCP - General Student in [facility] 12/13/16 01/11/19 health care education/training program Bella Sears MD General Surgery 11/28/14 Tana Peña MD MD Plastic Surgery 10/30/15 [address] [facility] [address] [place] [address] Sofiya Keenan MD MD ib[employer] websphere commerce developer 01/11/[address] [place] [address] Debby Suggs, FORM STRIPPER FORM STRIPPER Plastic Surgery 11/26/16 documented as of this encounter
--- OUTSIDE RECORDS SUMMARY | 2022-04-12 08:19 | XMS_ITS | Encounter Summary ---
:1995 Author Organization [facility] Address [address] [place] [address]. [place] [address] Care Team Providers Name Role Phone Bella Sears MD Unavailable Tana Peña MD Unavailable Sofiya Keenan MD Unavailable Carrie Tinsley MD Primary Care Provider [phone] Debby Suggs LPN Unavailable Unavailable Reason for Visit Auth/Cert Specialty Diagnoses / Procedures Referred By Contact Refer red To Contact Surgery Diagnoses Gender Dysphoria Ur Periop Procedures TRANSGENDER MASTECTOMY RECONSTRUCT NIPPLE BILATERAL [address] [place] [phone] Phone: Fax: Referral ID Status Reason Start Date Expiration Date Visits Requ ested Visits Authorized [id number] 1 1 Encounter Details Date Type Department Care Team Description 11/27/2016 Anesthesia Event [facility] Luis A Delgadillo MD [address] [place] [address] [address] [place] [address] PeriOp Services Cheryl Keith MD [address] [place], [place] [id number] [address] [place] [address] Anesthesia Record Procedure Summary Procedure Name Responsible Anesthesia Start Anesthesia Stop Anesthesiologist Time Time Bilateral Subcutaneous Luis A Delgadillo MD 11/27/16 0729 1129 Mastectomies, Nipple Grafts OnQ (Bilateral: Breast) Events Date Time Event Comment 11/27/2016 0706 0729 An Start 0731 An Start Data 0736 An Induction 0737 AN START SEVO 0742 An Intubation 0744 Initial Antibiotic (Started) 0746 Anesthesia Complete 0812 AN INCISION 0944 Subsequent Antibiotic 1118 AN END SEVO 1123 AN Extubation 1124 an stop data 1129 An Stop Electronically s igned by Mary Mcneil on November 27, 2016 11:29 AM Name Total midazolam 1mg/mL 2 mg fentaNYL (SUBLIMAZE) injection 175 mcg lidocaine 2% 100 mg propofol (DIPRIVAN) injection 10 mg/mL vial 100 mg rocuronium 10mg/mL 70 mg dexamethasone 4mg/mL 4 mg ondansetron 2mg/mL 4 mg glycopyrrolate 0.2mg/mL 0.6 mg neostigmine 1mg/mL 3 mg ceFAZolin sodium-dextrose (ANCEF) infusion 2 g 3 g LR 1,250 mL Agents Name NO HELIOX O2 N2O Air Exp Sevoflurane Exp Isoflurane Exp Desflurane Exp N2O Ins Sevoflurane Ins Isoflurane Ins Desflurane O2 Auxiliary Blood No blood administrations on file. Lines, Drains, and Airways Type Details Placement Removal Incision/Surgical Site 03/12/16; 0959; Abdomen; 03/12/16 0959 by Lorrie May RN Incision/Surgical Site 11/27/16; 0840; 11/27/16 0840 by Bilateral; Chest Fanny Banuelos RN RETIRED ETT 11/27/16; 0627 11/27/16 0627 by 11/27/16 1123 b y Jane De La Torre, Jane De La Torre APRN CRNA APRN ART GLASS DESIGNER Peripheral IV 11/27/16; 0707; 20 G; 11/27/16 0707 by 11/27/16 1620 by Right; Hand; Alcohol; Jane De La Torre Lohman n, Debra K, Injectable; Tolerated GENO ANNE RN well RETIRED ETT 11/27/16; 0742; Mask 11/27/16 0742 by 11/27/16 1 123 by Ventilation: Easy; Ease Jane De La Torre Star k, Jenna Marie, of Intubation: Easy; CYTOTECHNOLOGIST/HISTOTECHNOLOGIST ART GLASS DESIGNER CYTOTECHNOLOGIST/HISTOTECHNOLOGIST ART GLASS DESIGNER Airway Size: 7; Cuffed; Oral; Blade Type: Glidescope; Blade Size: 3; Place by: Cheryl; Insertion Attempts: 1; Secured at (cm)to lip: 19 cm; Breath Sounds: Equal, clear and bilateral; End Tidal CO2: Present; Dentition: Intact, Unchanged; Grade View of Cords: 1; Airway Adjuncts: Warren scope Urethral Catheter 11/27/16; 0755; No; 11/27/16 0755 by 11/27/16 1100 by Anesthesia; 16 fr Fanny Banuelos Joyce, Mere dith B, RN RN Closed/Suction Drain 11/27/16; 0944; 1; 11/27/16 0944 by 2006 by Right; Chest; Bulb; 15 Fanny Banuelos Inpati ent, Nurse Boone RN Closed/Suction Drain 11/27/16; 0944; 2; Left; 11/27/16 0944 by 0 07/16/202006 by Chest; Bulb; 15 Fanny Meneses Inpati ent, Nurse STRIP TANK TENDER CATH 11/27/16; 0945; Left; 11/27/16 0945 by 2006 by Casey (On-q Pump); Fanny Banuelos Inpatien t, Nurse 07/16/20; 2006 STRIP TANK TENDER CATH 11/27/16; 0945; Right; 11/27/16 0945 by 07/16/202006 by Dr Peña (On-Q-Pump); Fanny Banuelos Inpat ient, Nurse 07/16/20; 2006 RN documented in this encounter Social History Tobacco Use Types Packs/Day Years Used Date Smoking Tobacco: Former Cigarettes 0.3 Quit : 09/14/2016 Alcohol Use Standard Drinks/Week Comments Yes 0 (1 standard drink = 0.6 oz pure alcoho l) rarely Sex Assigned at Date Recorded Female 03/20/2020 2:05 PM CDT documented as of this encounter OR Notes Anesthesia Postprocedure Evaluation - Luis A Delgadillo MD - 11/27/2016 12:29 PM CDT Patient: Pablo Chakraborty Procedure(s): Bilateral Subcutaneous Mastectomies, Nipple Grafts OnQ - Wound Class: I-Clean Diagnosis:Gender Dysphoria Diagnosis Additional Information: No value filed. Anesthesia Type: General, ETT Note: Anesthesia Post Evaluation Patient location during evaluation: PACU Patient participation: Able to fully participate in evaluation Level of consciousness: awake and alert Pain management: adequate Airway patency: patent Cardiovascular status: acceptable Respiratory status: acceptable Hydration status: acceptable PONV: none Anesthetic complications: None Last vitals: Vitals: 11/27/16 1126 11/27/16 1130 11/27/16 1145 BP: 112/72 117/68 117/71 Pulse: Resp: 18 8 16 Temp: 35.7 ??C (96.3 ??F) 36.4 ??C (97.5 ??F) SpO2: 100% 100% 98% Electronically Signed By: Luis A Delgadillo MD November 27, 2016 12:29 PM Anesthesia Preprocedure Evaluation - Luis A Delgadillo MD - 11/27/2016 7:02 AM CDT Anesthesia Evaluation . Pt has had prior anesthetic. Type: General ROS/MED HX ENT/Pulmonary: (+)asthma , . . Neurologic: - neg neurologic ROS Cardiovascular: - neg cardiovascular ROS METS/Exercise Tolerance: Hematologic: - neg hematologic ROS Musculoskeletal: - neg musculoskeletal ROS GI/Hepatic: - neg GI/hepatic ROS (+) liver disease (fatty liver), Renal/Genitourinary: - ROS Renal section negative Endo: Psychiatric: (+) psychiatric history bipolar Infectious Disease: - neg infectious disease ROS Malignancy: - no malignancy Other: (+) No chance of no H/O Chronic Pain,no other significant disability - neg other ROS Physical Exam Normal systems: cardiovascular and pulmonary Airway Mallampati: II TM distance: >3 FB Neck ROM: full Dental (+) partials Cardiovascular Rhythm and rate: regular and normal Pulmonary Anesthesia Plan History & Physical Review History and physical reviewed and following examination; no interval change. ASA Status: 2 . NPO Status: > 8 hours Plan for General and ETT with Intravenous induction. Maintenance will be Balanced. PONV prophylaxis: Ondansetron (or other 5HT-3) and Dexamethasone or Solumedrol Additional equipment: 2nd IV Postoperative Care Consents Anesthetic plan, risks, benefits and alternatives discussed with: Patient. Use of blood products discussed: Yes. Use of blood products discussed with Patient. Consented to blood products. . . documented in this encounter Miscellaneous Notes Anesthesia Care Transfer Note - Mary Mcneil APRN CRNA - 11/27/2016 11:29 AM CDT Patient: Pablo Chakraborty Procedure(s): Bilateral Subcutaneous Mastectomies, Nipple Grafts OnQ - Wound Class: I-Clean Diagnosis: Gender Dysphoria Diagnosis Additional Information: No value filed. Anesthesia Type: General, ETT Note: Airway :Face Mask Patient transferred to:PACU Comments: BESSIE Mcclellan. Report to RN. Vitals: (Last set prior to Anesthesia Care Transfer) OMID VITALS 11/27/2016 1054 - 11/27/2016 1129 11/27/2016 Pulse: 115 SpO2: 98 % Resp Rate (set): 10 Electronically Signed By: Mary Mcneil APRN CRNA November 27, 2016 11:29 AM documented in this encounter Plan of [...] Action Action Date Dose Rate Site ceFAZolin sodium-dextrose (ANCEF) Given 11/27/2016 9:44 AM CDT 1 g infusion 2 g Routine, 2 g, Intravenous, PRE-OP/PRE-PROCEDURE, Starting on Fri11/27/16 at 0547, For 1 dose, Give first dose within 1 hour PRIOR to incision. If patient weight is greater than or equal to 120 kg increase dose to 3 g., Indications: Perioperative Pharmacoprophylaxis, Pre-procedure Given 11/27/2016 7:44 AM CDT 2 g dexamethasone (DECADRON) injection Given 11/27/2016 7:36 AM CDT 4 mg Intravenous, PRN, Administer over 1-4 Minutes, Starting on Fri11/27/16 at 0736, Anesthesia Intra-op fentaNYL Citrate (PF) (SUBLIMAZE) inject ion Given 11/27/2016 11:25 AM CDT 25 mcg Intravenous, PRN, moderate to severe pain, Starting on Fri11/27/16 at 0736, Anesthesia Intra-op Given 11/27/2016 9:29 AM CDT 50 mcg Given 11/27/2016 7:36 AM CDT 100 mcg glycopyrrolate (ROBINUL) injection Given 11/27/2016 11:12 AM CDT 0.6 mg Intravenous, PRN, Starting on Fri11/27/16 at 1112, Anesthesia Intra-op lactated ringers infusion New Bag 11/27/2016 8:21 AM CDT Intravenous, CONTINUOUS PRN, Anesthesia Intra-op, Starting on Fri11/27/16 at 0736, Until Fri11/27/16 at 1129 New Bag 11/27/2016 7:36 AM CDT lidocaine injection 2% (MDV) Given 11/27/2016 7:36 AM CDT 100 mg Intravenous, PRN, Starting on Fri11/27/16 at 0736, Anesthesia Intra-op midazolam (VERSED) injection Given 11/27/2016 7:29 AM CDT 2 mg Intravenous, PRN, anxiety, Starting on Fri11/27/16 at 0729, Anesthesia Intra-op neostigmine (PROSTIGMINE) injection Given 11/27/2016 11:12 AM CDT 3 mg Intravenous, PRN, Starting on Fri11/27/16 at 1112, Anesthesia Intra-op ondansetron (ZOFRAN) injection Given 11/27/2016 11:12 AM CDT 4 mg Intravenous, PRN, nausea, vomiting, Administer over 2-5 Minutes, Starting on Fri11/27/16 at 1112, Anesthesia Intra-op propofol (DIPRIVAN) injection 10 mg/mL v ial Given 11/27/2016 7:36 AM CDT 100 mg Intravenous, PRN, Starting on Fri11/27/16 at 0736, Anesthesia Intra-op rocuronium (ZEMURON) injection Given 11/27/2016 8:19 AM CDT 30 mg Intravenous, PRN, Starting on Fri11/27/16 at 0736, Anesthesia Intra-op Given 11/27/2016 7:36 AM CDT 40 mg documented in this encounter Additional Health Concerns Assessment Noted Time PHQ-9 Depression Total Score: 19 01/16/2016 7:18 AM CD T documented as of this encounter Care Teams Pattern Illustrator Relationship Specialty Start Date End Date Carrie Tinsley MD PCP - General 04/23/16 12/12/16 [facility] [address] [place] [address] Bella Sears MD General Surgery 11/28/14 Tana Peña MD MD Plastic Surgery 10/30/[address] [facility] [address] [place] [address] Sofiya Keenan MD MD material hauler 01/11/[address] [place] [address] Debby Suggs LPN SHELVER Plastic Surgery 11/26/16 documented as of this encounter
--- OUTSIDE RECORDS SUMMARY | 2022-04-12 08:19 | XMS_ITS | Encounter Summary ---
:1994 Author Organization [facility] Address [address] [place] [address] Care Team Providers Name Role Phone Bella Sears MD Unavailable Tana Peña MD Unavailable Sofiya Keenan MD Unavailable Miguelina Wise DO Primary Care Provider [phone] Debby Suggs LPN Unavailable Unavailable Aung [place] MD Unavailable Dana Jane RN Unavailable Shahzad Sen MD Unavailable John Gresham Unavailable Seun Valladares MD Primary Care Provider [phone] Marce Gallardo MD Primary Care Provider Marce Gallardo MD Primary Care Provider Marce Gallardo MD Unavailable Bella Sears MD Primary Care Provider [phone] Marce Gallardo MD Primary Care Provider Marce Gallardo MD Unavailable Darcy Jackson DO Unavailable Marce Gallardo MD Unavailable Encounter Details Date Type Department Care Team Description 05/09/2017 Telephone [facility] Miguelina Wise [facility] DO [address] [place] [address], [address] [place] [address] [phone] (Wo rk) Social History Tobacco Use Types [...] this encounter Miscellaneous Notes Telephone Encounter - Janet Eddy CMA - 05/09/2017 11:59 AM REFLESHER Faxed letter to Dr Alley Cordero [phone] ESHER documented in this encounter Plan of Treatment [...] documented as of this encounter Care Teams Lathe Set Up Person Relationship Specialty Start Date End Date Miguelina iWse PCP - General Student in organized 12/13/16 01/11/19 health care education/training program Seun Valladares PCP - General Student in organized 01/24/19 Avery [place] MD [address] education/training [address] [place] [address] Marce Gallardo MD PCP - General Student in organized 01/12/19 01/23/[address] [place] [address], [place] [address] education/training program Marce Gallardo MD PCP - General Student in organized 05/17/19 07/15/20[address] [place] [address] education/training program Bella Sears, PCP - General 07/16/20 1 [facility] [address] [place] [address] Marce Gallardo MD PCP - General Family Medicine 07/24/20 12/12/202019 [place] [address] Bella Sears, General Surgery 11/28/14 Tana Peña MD Plastic Surgery 10/30/[address] [place] [address] [address] [facility] [address] [place], [place] [id number] Sofiya Keenan MD MD wellness program administrator 01/11/[address] [place], [place] [id number] Debby Suggs LPN AURICULAR THERAPIST Plastic Surgery 11/26/16 Aung [place] MD MD Urology 05/04/18 [address] [place], [place] [id number] Dana Jane, CASH Registered Nurse Urology 05/04/18 01/15/22 Shahzad Sen MD MD Plastic Surgery 10/08/18 [facility] [address] [place] [address] John Gresham [facility] Plastic Surgery 10/08/18 Coordinator Marce Gallardo MD Assigned PCP 07/30/20 11/08/20 [facility] [id number] [place] [phone] Marce Gallardo MD Assigned PCP 11/04/19 07/29/20 [facility] [id number] [place] [phone] Darcy Jackson DO Assigned PCP 11/09/20 11/18/202019 [place], [place] [id number] Marce Gallardo MD Assigned PCP 11/19/20 12/16/[address] [address] documented as of this encounter
--- OUTSIDE RECORDS SUMMARY | 2022-04-12 08:19 | XMS_ITS | Encounter Summary ---
:1995 Author Organization [facility] Address [address] [place] [address]. [place] [address] Care Team Providers Name Role Phone Bella Sears MD Unavailable Hanane Pñea MD Unavailable Sofiya Keenan MD Unavailable Carrie Tinsley MD Primary Care Provider [phone] Debby Suggs LPN Unavailable Unavailable Reason for Visit Auth/Cert Specialty Diagnoses / Procedures Referred By Contact Refer red To Contact Surgery Diagnoses Gender Dysphoria Ur Periop Procedures TRANSGENDER MASTECTOMY RECONSTRUCT NIPPLE BILATERAL [address] [place] [address] Phone: Fax: Referral ID Status Reason Start Date Expiration Date Visits Requ ested Visits Authorized [id number] 1 1 Encounter Details Date Type Department Care Team Description 11/27/2016 Hospital Encounter UR MAIN OR Hanane Peña S/P bilateral [address] [facility] Hollingsworth MD mastectomy ([place] [address] [place] [address] Dx) [phone] [address] Social History Tobacco Use Types Packs/Day Years Used Date Smoking Tobacco: Former Cigarettes 0.3 Quit : 09/14/2016 Alcohol Use Standard Drinks/Week Comments Yes 0 (1 standard drink = 0.6 oz pure alcoho l) rarely Sex Assigned at Date Recorded Female 03/20/2020 2:05 PM CDT documented as of this encounter Last Filed Vital Signs Vital Sign Reading Time Taken Comments Blood Pressure 110/70 11/27/2016 4:00 PM CDT Pulse 55 11/27/2016 5:42 AM CDT Temperature 36.8 ??C (98.2 ??F) 11/27/2016 4:00 PM CDT Respiratory Rate 16 11/27/2016 4:00 PM CDT Oxygen Saturation 97% 11/27/2016 4:00 PM CDT Inhaled Oxygen Concentration - - Weight 64.9 kg (143 lb 1.3 oz) 11/27/2016 5:42 AM CDT Height 162.6 cm (5' 4) 11/27/2016 5:42 AM CDT Body Mass Index 24.56 11/27/2016 5:42 AM CDT documented in this encounter Discharge Instructions Discharge InstructionsSuly Velez RN - 11/27/2016 12:59 PM CDT Images from the original note were not included. ON-Q?? C-bloc Continuous Nerve Block Discharge Instructions The Nerve Block: ??? Your anesthesiologist performed a nerve block (a procedure that blocks pain to only a specific area) by inserting a small catheter (tube) in your body. This catheter is connected to tubing and to apump that will help control your pain. The Medicine/Rate ??? The pump is shaped like a balloon and is filled with ??? medicine that causes numbness or loss of sensation to help control your pain. The pain pump DOESNOT contain narcotics. ??? The medicine in the pump may alter your ability to feel changes in temperature or pressure. Depending on where the catheter was placed, it may affect your ability to control movement. After the first few hours you may get some soreness as well as movement back; this is normal. The Pump ??? DO NOT SQUEEZE THE PUMP. ??? The pump delivers medicine at a very slow rate. ??? You will NOT see the medicine moving through the tubing. ??? As the medicine is delivered, the pump ball will slowly become smaller. ??? It may take a day or so before you notice a change in the size and look of the pump. ??? Depending on the size of your pump, it may take 2 - 5 days to give all the medicine. ??? The middle part of the pump may look like an apple core when empty. Managing Your Pain ??? The continuous nerve block infusion may not block all of the pain from your surgery (and the benefits of the pump can vary from patient to patient). It is important that you take the pain medicinesprescribed by your surgeon if you need them. ??? If you continue to have difficulty with your pain control, please page or call the anesthesiologist. Caring for Your Pump at Home ??? Wear the pump on the outside of clothing - away from your skin and cold therapy (ice packs). Thedelivery rate is accurate only at room temperature. ??? Make sure the white clamp on the tubing remains open (moves freely on the tubing). ??? Make sure there are no kinks in the tubing. ??? DO NOT tape or cover up the filter. ??? Protect the pump from sunlight and heat. ??? When sleeping: o DO NOT place the pump underneath the bed covers where the pump may become too warm. o DO NOT place the pump on the floor or hang the pump on a bed post as these situations may cause the tubing to get tangled and get pulled out. ??? Bathing/Showering: o We recommend taking sponge baths until the pump is removed. o Avoid getting the area where the catheter enters your body wet. o DO NOT let water get in the filter. o DO NOT submerge the pump in water. Activity ??? DO NOT drive or operate heavy machinery if the nerve block affects an extremity ??? DO NOT bear weight on the affected extremity until sensation and motion return and directed by your physician ??? Elevate affected extremity; pillows work well for elevation. ??? Take care to avoid objects that may put pressure on or cause trauma to the limb. Be careful whenplacing hot or cold objects on the numb area. ??? For Upper Extremity Nerve Blocks, using the non-operative extremity, you may do range of motion exercises hourly while awake unless directed otherwise. ??? For Knee Surgery patients with a Femoral or Adductor Canal catheter you must have an Immobilizeron at all times when up until the catheter is removed and full sensation and strength have returned. ??? For Lower Extremity Nerve Blocks make sure someone is with you the first time you attempt to place full weight on your operative side. The Infusion ??? The infusion will be started by the [facility]. DO NOT turn the infusion off unless your anesthesiologist has told you to do so. ??? DO NOT change the flow rate of the infusion unless your anesthesiologist told you to do so. Changing the flow rate without your doctor???s instruction may result in the wrong dose of medicine, which could cause serious injury. ??? If your anesthesiologist told you to change the rate of your infusion: o Flip open the clear cover on the [id number] device. o Turn the white tavares clockwise on the [id number] dial to the instructed rate. (The rate of the infusion should line up with the black arrow at the top of the controller.) o Listen for the click when you move the dial. o The tavares may be removed from the [id number]-ulka dial, or the plastic cover on the device may be zip tied shut to ensure safety. Removing the Catheter ??? When the pump is empty or if you have been told to stop the infusion you can remove the catheter. Follow these steps:: o Wash your hands. o Clamp the tubing (squeeze the white clamp until you hear or feel a click). o Remove the clear dressing that covers the tubing. o Grasp the catheter close to the skin and gently pull. If you meet resistance, STOP pulling and page or call your anesthesiologist. o DO NOT cut or forcefully remove the catheter. o After removal, check the end of the catheter for a dark tip. If you DO NOT see a dark tip, page orcall your anesthesiologist. o Apply firm pressure over the site until oozing stops. Wash the area with soap and water, dry with a clean towel and then cover with a bandage. o The pump is not reusable or refillable. Dispose of it in the trash and wash your hands. Troubleshooting ??? Tubing Comes Out From Skin: If the tube accidentally comes out, check the end of the tubing for a dark tip. ??? If you see a dark tip simply discard it and use the pain pills prescribed to you by your surgeon. ??? If you DON???T see a dark tip, page or call the anesthesiologist. ??? Tubing Disconnection: If the tubing accidentally becomes disconnected from the pump, DO NOT reconnect the pump to the tubing. It may have been contaminated with germs. Close the tubing clamp and immediately page or call your anesthesiologist. ??? Fluid Leaking: If fluid is leaking from the site catheter insertion site, close the white clamp on the tubing and page or call your anesthesiologist. Immediately report the following to your anesthesiologist: ??? Redness, warmth, swelling, or tenderness at the site the tubing was inserted ??? Increase in pain ??? Fever, chills, sweats ??? Bowel or bladder changes ??? Difficulty breathing ??? Dizziness, lightheadedness ??? Blurred vision ??? Ringing or buzzing in your ears ??? Metal taste in your mouth ??? Numbness and/or tingling around your mouth, fingers or toes ??? Drowsiness ??? Confusion ??? Trouble removing the tubing ??? Dark tip is not present when tubing is removed Notifying your Anesthesiologist o Page: Dial [phone], then enter [phone]. You will be prompted to enter your phone number and thenthe # sign. The anesthesiologist will call you back. o Call: Dial [phone]. Ask to speak to the anesthesiologist telegraph office telephone clerk for the [facility]. Updated 06/2015 Supply list Q-tips and or/ clean washcloth Gauze or split gauze (2 x 2 ) Paper tape (1 inch wide) Specimen cup Diaz Pringle Drain Home Care Instructions What is a Diaz Pringle (ADALBERTO) drain? This is a small tube that connects to a bulb. Its gentle suction removes extra fluid from a surgicalwound. Your doctor will remove the tube when the amount of fluid decreases. The color and amount of fluid varies. Right after surgery the fluid is bright red. Over time, it changes to light pink and may become clear or the color of straw. How should I care for my tube site? ?? Keep the skin around the tube dry. Check with your doctor about how to shower. You may need to cover the site with plastic when you shower. Or, it may be okay to let the site get wet and put on a clean bandage after you shower. ?? Tape the tube to the skin below the bandage. Make sure to keep some slack in the tube. This helpsprevent pulling on the stitches. ?? You will need to change your bandage at least once a day. If the bandage gets wet, you will need to change it again. To change the bandage: Prepare ?? Clean your work area with alcohol or soap and water and a paper towel. ??? Wash your hands with soap and water. ?? Place on your clean work area: ??? Bag for old bandage ??? Gauze bandage and one-inch paper tape ??? Anti-bacterial wash (.9% normal saline) or soap and water ??? Cotton-tipped swab (like Q-Tips) or a clean wash cloth. Remove the old bandage ?? Remove the old bandage and throw it out. Be carefulnot to pull on your stitches or tubing. ?? Do not use a scissors--you might cut the tube. ?? Check for any redness, swelling, drainage or broken stitches. If you have any of these, call yourdoctor Clean the site ?? Wash your hands. ?? Clean the skin around the tube site. Use soap and water or .9% saline with cotton swabs or a clean wash cloth. Start at the tube site and move outward in a circular motion about 1 to 2 inches away from the site. Rinse with water and pat dry. Replace the bandage ?? We will give you a gauze bandage (two per package). ?? If you have bandages with slits, place one bandage around the tube. Place the other bandage underthe tube with the slit facing the opposite way. Tape the bandages in place. ?? If you have bandages without slits, fold each one in half. Place one above the tube and one underthe tube. Tape in place. Tape the tube ?? Tape the tube to the skin. Leave some slack in the tubing. Use paper tape or adhesive tape if paper tape will not hold. Your nurse may show you how to use a StayFix bandage (a tube stabilizer) Clean up ?? Throw out all used materials. ?? Clean work area with alcohol or soap and water and a paper towel. ?? Wash your hands with soap and water. ?? Bandage, tube and tape ? How should I care for the bulb? ?? Keep the bulb compressed at all times except while you empty it. ?? Attach the bulb to your clothing with tape and a safety pin. ?? Try to empty the bulb at the same time every day. Empty the bulb at least once a day, or when thebulb becomes half full. If it becomes too full, there will not be enough suction. To empty the bulb: ?? Wash your hands. ?? 0pen the bulb cap. ?? Drain the fluid from the bulb into the measuring cup. If you have two drains, use two cups. ?? Clean the mouth of the bulb with an alcohol wipe if your nurse told you to. ?? Squeeze the bulb (fold it in half before you close the bulb cap). If it does not stay compressed,call your nurse or clinic. ?? Write the amount of drainage on the drainage record (see back page). If you have two drains, write the amount for each bulb. ?? Flush the drainage down the toilet. Rinse the measuring cup. Wash your hands. When should I call my doctor? Call your doctor if: ?? You have a fever over 101??F (38.3??C), taken under the tongue. ?? The drainage increases or smells bad. ?? The skin around your tube has increased redness, swelling, warmth or pain. ?? You have pus or fluid leaking at the tube site. ?? Your stitches break. ?? You think the tube is not draining. ?? The tube falls out. ?? You have any problems or concerns. If your doctor has instructed you to strip your tube, follow these steps: ?? Use lotion to make the thumb and index finger of one hand slippery. ?? With the other hand, pinch off the top of the tube close to the skin. ?? While pinching the tube, squeeze the tube with your slippery thumb and index finger. Keep squeezing the tube as you run your fingers down toward the bulb. This will move the fluid into the bulb. ?? Let go of the tubing with both hands. If the tube is still blocked, repeat these steps three or four times. Make sure that the bulb is compressed, so it creates suction. Your drainage record Empty your bulb at the same time each day. Write down the date, time and amount of drainage for eachbulb. You may wish to make notes about the color and smell as well. Bring this record to each clinic visit. Your doctor may ask you to call the office each day to report the amount of drainage. If so, please call: Dr. mccall . Same-Day Surgery Adult Discharge Orders & Instructions For 24 hours after surgery: 1. Get plenty of rest. A responsible adult must stay with you for at least 24 hours after you leave the hospital. 2. Pain medication can slow your reflexes. Do not drive or use heavy equipment. If you have weaknessor tingling, don't drive or use heavy equipment until this feeling goes away. 3. Mixing alcohol and pain medication can cause dizziness and slow your breathing. It can even be fatal. Do not drink alcohol while taking pain medication. 4. Avoid strenuous or risky activities. Ask for help when climbing stairs. 5. You may feel lightheaded. If so, sit for a few minutes before standing. Have someone help you getup. 6. If you have nausea (feel sick to your stomach), drink only clear liquids such as apple juice, alberto margo, broth or 7-Up. Rest may also help. Be sure to drink enough fluids. Move to a regular diet asyou feel able. Take pain medications with a small amount of solid food, such as toast or crackers, to avoid nausea. 7. A slight fever is normal. Call the doctor if your fever is over 100??F (37.7??C) (taken under thetongue) or lasts longer than 24 hours. 8. You may have a dry mouth, muscle aches, trouble sleeping or a sore throat. These symptoms should go away after 24 hours. 9. Do not make important or legal decisions. Pain Management: 1. Take pain medication (if prescribed) for pain as directed by your physician. 2. WARNING: If the pain medication you have been prescribed contains Tylenol (acetaminophen), DO NOT take additional doses of Tylenol (acetaminophen). Call your doctor for any of the followin. Signs of infection (fever, growing tenderness at the surgery site, severe pain, a large amount ofdrainage or bleeding, foul-smelling drainage, redness, swelling). 2. It has been over 8 to 10 hours since surgery and you are still not able to urinate (pee). 3. Headache for over 24 hours. 4. Numbness, tingling or weakness the day after surgery (if you had spinal anesthesia). To contact a doctor, call or: ??? [phone] and ask for the Resident Hot Car Charger for: (answered 24 hours a day) ??? Emergency Department: [facility]: [phone] [facility]: [phone] Rev. 03/2014 documented in this encounter Medications at Time of Discharge Medication Sig Dispensed Refills Start Date End Date albuterol (PROAIR Inhale 2 puffs into 0 5 HFA/PROVENTIL the lungs HFA/VENTOLIN HFA) 108 (90 BASE) MCG/ACT Inhaler ALBUTEROL IN Inhale 2 puffs into 0 12/24/2014 the lungs topiramate (TOPAMAX) 50 Take 50 mg by mouth 0 MG tablet At Bedtime valACYclovir (VALTREX) Take 1 tablet by 0 015 500 MG tablet mouth enoxaparin (LOVENOX) 40 Inject 0.4 mLs (40 2 mL 0 11/1412/02/2016 MG/0.4ML mg) Subcutaneous injectionIndications: daily for 5 days S/P bilateral mastectomy acetaminophen (TYLENOL) Take 2 tablets (650 100 tablet 1 05/10/2019 325 MG mg) by mouth every 4 tabletIndications: S/P hours as needed for hysterectomy other (surgical pain) acyclovir (ZOVIRAX) 5 % Apply topically 6 15 g 3 06/1705/10/2019 ointmentIndications: times daily Oral herpes simplex infection albuterol (PROAIR Inhale 2 puffs into 0 5 08/19/2017 HFA/PROVENTIL the lungs HFA/VENTOLIN HFA) 108 (90 BASE) MCG/ACT Inhaler azithromycin (ZITHROMAX) Two tablets first 6 tablet 0 11/1412/03/2016 250 MG day, then one tablet tabletIndications: S/P daily for four days. bilateral mastectomy Calcium Citrate 200 MG Take 1 tablet by 120 tablet 11 016 05/10/2019 TABSIndications: Gender mouth daily dysphoria Cholecalciferol (VITAMIN Take 2,000 Units by 100 tablet 11 03/25/2017 D) 2000 UNITS mouth daily tabletIndications: Gender dysphoria clindamycin (CLEOCIN T) Apply topically 2 60 mL 11 01/0308/19/2017 1 % external times daily solutionIndications: Acne vulgaris FLUTICASONE PROPIONATE, [place] 1 spray in 0 03/20/2020 NASAL, NA nostril 2 times daily hydrOXYzine (ATARAX) 25 Take 1-2 tablets 20 tablet 0 201612/03/2016 MG tabletIndications: (25-50 mg) by mouth S/P bilateral mastectomy every 6 hours as needed for itching hydrOXYzine (ATARAX) 25 Take 1-2 tablets 60 tablet 1 201501/10/2017 MG tabletIndications: (25-50 mg) by mouth Anxiety every 6 hours as needed for anxiety insulin syringe 31G X 1 applicator once a 100 each 3 01/0301/12/2019 5/16 0.5 ML week MISCIndications: Gender dysphoria montelukast (SINGULAIR) Take 10 mg by mouth 0 03/20/2020 10 MG tablet At Bedtime ondansetron (ZOFRAN) 4 Take 1 tablet (4 mg) 20 tablet 0 12/03/2016 MG tabletIndications: by mouth every 8 S/P bilateral mastectomy hours as needed for nausea oxyCODONE (ROXICODONE) 5 Take 1-2 tablets 50 tablet 0 11/2701/10/2017 MG IR tabletIndications: (5-10 mg) by mouth S/P bilateral mastectomy every 4 hours as needed for pain Sharps Container Use each week with 1 each 1 03/23/2015 05/10/2019 MISCIndications: Gender sharps dysphoria Syringe/Needle, Disp, 1 each every 7 days 100 each 6 06/1707/07/2017 18G X 1 1 ML MISCIndications: Gender dysphoria in adolescent and adult Syringe/Needle, Disp, 1 each every 7 days 100 each 6 06/1701/12/2019 22G X 1-1/2 1 ML MISCIndications: Gender dysphoria in adolescent and adult TEMAZEPAM PO Take 15 mg by mouth 0 10/2019 nightly as needed for sleep 1-2 tabs testosterone cypionate Inject 0.3 mLs (60 6 mL 3 08/0701/10/2017 (DEPOTESTOTERONE mg) into the muscle CYPIONATE) 200 MG/ML once a week injection testosterone cypionate Inject 0.4 mLs (80 2 mL 0 09/2701/12/2019 (DEPOTESTOTERONE mg) into the muscle CYPIONATE) 200 MG/ML once a week for 5 injectionIndications: doses Gender dysphoria testosterone cypionate Inject 0.4 mLs (80 2 mL 0 10/2601/12/2019 (DEPOTESTOTERONE mg) into the muscle CYPIONATE) 200 MG/ML once a week for 5 injectionIndications: doses Gender dysphoria testosterone cypionate Inject 0.5 mLs (100 2 mL 0 05/1701/12/2019 (DEPOTESTOTERONE mg) into the muscle CYPIONATE) 200 MG/ML once a week for 4 injectionIndications: doses Gender dysphoria VALACYCLOVIR HCL PO Take 500 mg by mouth 0 08/19/2017 daily documented as of this encounter Nursing Notes Imani Garces RN - 11/27/2016 11:44 AM CDT Report and care given to Shahla Woods RN. documented in this encounter Miscellaneous Notes Op Note - Hanane Peña MD - 11/27/2016 4:30 PM CDT DATE OF SERVICE: 11/27/2016 ATTENDING SURGEON: Hanane Peña MD RESIDENT SURGEON: Sajan Calle MD PREOPERATIVE DIAGNOSIS: Female to male transgender. POSTOPERATIVE DIAGNOSIS: Female to male transgender. PROCEDURE: Bilateral subcutaneous mastectomies with nipple grafts. On-Q catheter placement. ANESTHESIA: GET. ESTIMATED BLOOD LOSS: 50 mL. IV FLUIDS: 1250 mL. URINE OUTPUT: 375 mL. COUNTS: Correct. COMPLICATIONS: None. DRAINS: ADALBERTO x2. TISSUES REMOVED: 256 g from the left breast and 367 g from the right breast. INDICATIONS: Nahid Chakraborty is a 21-year-old biological female transitioning to male who met WPATH criteria for gender forming top surgery. 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 DESCRIPTION OF PROCEDURE: The patient was seen in the preoperative waiting area. The operative siteswere marked including sternal notch, sternal midline, inframammary folds with lateral extensions fordog ears. We also marked the nipple areolar complex median vertically and then transposed transverseline from mid humerus onto the chest wall. Informed consent was obtained after reviewing the possible risks and complications including but not limited to following: Infection, bleeding, hematoma, seroma formation, poor healing, including dehiscence, spitting sutures, hypertrophic scarring, altered sensation of the chest wall, including or hypersensitivity, possible injury surrounding neurovascular and musculoskeletal structures as well as intrathoracic or entrapped intra-axillary structures, residual deformities, asymmetries, need for further surgery and anesthetic risks such as DVT, PE and cardiopulmonary arrest. Also possibility of loss of nipple graft. The patient was then brought to the operating room, placed supine on the OR table. After general anesthesia was administered and the patient was oral endotracheally intubated, a De La Cruz was placed. The patient already had sequential compression devices on his lower extremities prior to induction. Of note, this patient's family has a very significant history of pulmonary emboli despite negative workup. For this reason, we also gave the patient an injection of Lovenox preoperatively 40 units. The patient was secured to the table with additionalpadding and safety straps over his thighs and forelegs. After the De La Cruz was placed, the arms were secured to arm boards at 90 degrees from the OR table with 6-inch Dani wraps. The patient was positionedto achieve best symmetry. The chest/breast area was then prepped and draped in the usual sterile fashion using ChloraPrep. After timeout was taken and proper patient and procedure were identified, we then made our inframammary incisions using Peak Plasma on the right and blade with [facility] cautery on the left. We left approximately 2 cm of subcutaneous tissue along the IMF for beveling down to the pec fascia. The breast mound was elevated off the pec fascia and undermined up towards the clavicle, medially towards the sternum and laterally around the corner from the lateral pec border. This allowed us to pull the breast tissue inferiorly and marked where it overlapped with the IMF incision. The breast tissue was thenremoved while creating the superior skin flap, once again with Bovie use. Thickness was approximately 2 cm in thickness. The breast tissue removed was kept on the back table and ultimately weighed before sending to pathology for histologic examination. We temporarily skin stapled our incision and put the patient in sitting position to check for symmetry. Additional areas for trimming were marked including dog ears laterally. We also had some inhomogeneity between the two sides as far as flap thickness was concerned. We put the patient back in a supine position, these areas were corrected and the additional removed tissue was added to the specimen. When we were happy with the contour as well as shape for the incisions and skin flaps, the dissection pockets were irrigated with triple antibiotic solution. Final hemostasis was achieved with cautery. We did not feel that this patient was any more bloody than usual given his preop Lovenox dose. Number 15 round ADALBERTO drains were introduced through a separate stab wound incision laterally and secured with 3-0 nylon suture. The drain was placed along the inferior aspect of the dissection pocket. Ten-inch dual On-Q catheters were percutaneously introducedfrom the epigastric region and draped along the superior aspect of the dissection pocket. These weresecured with benzoin and Tegaderm. Closure was then achieved definitively with 3-0 Vicryl deep dermal buried sutures and 4-0 Vicryl running subcuticular suture. We then put the patient into a sitting position and used a cutout template to help determine the best place for nipple grafts. This was approximately 11.5 to 12 cm from the midline and about 2.25 cm from the IMF incision. We felt that this gave him a convincingly masculine appearing chest. This area was then de-epithelialized with a #15 blade. Hemostasis was achieved with direct pressure. The nipple grafts themselves, which had been harvested previously to removal of breast tissue and kept on the back table wrapped in saline marked per side, were then thinned aggressively with iris scissors. They were then trimmed as far as the areola wasconcerned and anchored to the recipient site with 5-0 fast absorbing interrupted and running subcuticular sutures. The center nipple was also anchored with suture. Hypodermic needle 20-gauge was then used to essentially pie crust the rest of the graft to allow for any possible hematoma drainage. Bolster dressings consisting of Xeroform sheets and antibiotic-soaked cotton balls were then held in placewith 2-0 silk ties held by hillary. Dermabond Prineo was used to protect and cover dress the IMF incisions. Kerlix rolls were used to pad the anterior chest and a double long 6-inch Dani was used to wrap circumferentially around approximately for compression. De La Cruz was discontinued. The patient was extubated, transferred to the stretcher and taken to the recovery room in satisfactory condition having tolerated the procedure without difficulty or complication. The breast tissue was measured 256 grams on left, 367 grams on the right and was sent to pathology for permanent examination of histology. Of note, his nipple grafts probably were about 1-3/4 inches diameter when we were done. HANANE PEÑA MD MT: CD Name: NAHID CHAKRABORTY MRN: [id number] Account: [id number] : 1995 Procedure Date: 11/27/2016 Document: [id number] Plan of Care - Suly Velez RN - 11/27/2016 4:00 PM CDT The patients mother who accompanied the patient today and was to be helping with ride, etc, had to go to the ED for an evaluation. Friend, Aliyah came to be with patient and listened to instructions and learned about meds to review with person that will be with Nahid kaur/tomorrow. Mom still in ED. Patient discharged to adult ED where mother is, and ride will curing pickling packer there. Brief Op Note - Sajan Calle MD - 11/27/2016 11:34 AM CDT [facility] Brief Operative Note Pre-operative diagnosis: Gender Dysphoria Post-operative diagnosis Same Procedure: Procedure(s): Bilateral Subcutaneous Mastectomies, Nipple Grafts OnQ - Wound Class: I-Clean Surgeon: Surgeon(s) and Role: * Hanane Peña MD - Primary * Sajan Calle - Resident - Assisting Anesthesia: General Estimated blood loss: 50 mL UOP: 375cc Crystalloid 1200 cc Drains: Diaz-Pringle x2 and On-Q pump to bilateral chest Specimens: ID Type Source Tests Collected by Time Destination A : 367gm Tissue Breast, Right SURGICAL PATHOLOGY EXAM Hanane Peña MD 11/27/2016 9:40 AM B : 256gm Tissue Breast, Left SURGICAL PATHOLOGY EXAM Hanane Peña MD 11/27/2016 9:40 AM Findings: Resection weights: R 367g, L 256g. Complications: None. Implants: None. 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 documented as of this encounter Procedures Procedure Name Priority Date/Time Associated Comments Diagnosis SURGICAL PATHOLOGY Routine 11/27/2016 9:40 AM Res ults for this EXAM CDT procedure are i n the results section. MASTECTOMY, 11/27/2016 7:30 AM Gender Dysphoria BILATERAL, FOR SEX CDT REASSIGNMENT Special Needs H&P to be Completed by [facility] Physician PLATELET COUNT STAT 11/27/2016 6:21 AM CDT Res ults for this procedure are in the results section. EKG CARDIAC - HIM SCAN 09/04/2016 12:00 AM CDT documented in this encounter Results Surgical pathology exam (11/27/2016 9:40 AM CDT) Component Value Ref Test Analysis Performed At Patholo gist Range Method Time Signature Copath Report Patient Name: NAHID CHAKRABORTY MR#: [id number] Specimen #: [id number] Collected: 11/27/2016 Received: 11/27/2016 Reported: 12/03/2016 15:39 Ordering Phy(s): HANANE PEÑA For improved result formatting, select 'View Enhanced Report Format' under Linked Documents section. SPECIMEN(S): A: Breast, right B: Breast, left FINAL DIAGNOSIS: A. BREAST, RIGHT, SUBCUTANEOUS MASTECTOMY: - Benign breast tissue and skin B. BREAST, LEFT, SUBCUTANEOUS MASTECTOMY: - Benign breast tissue and skin I have personally reviewed all specimens and or slides, incl uding the listed special stains, and used them with my medical judgeme nt to determine the final diagnosis. Electronically signed out by: Jessie Almonte M.D, [facility] CLINICAL HISTORY: The patient is a 21-year-old female to male transgender pers on. Procedure: bilateral subcutaneous mastectomy. GROSS: A. The specimen is received in formalin with proper patient identification, labeled right breast tissue. ??It consists of multiple pieces of yellow-guerrero fatty fibrous breast tissue and skin, 3 67 g and 15.2 x 12.5 x 3.6 cm in aggregate. ??No nipple is identified . ??Sectioning reveals unremarkable skin, and breast parenchyma with 20% fi brous tissue. ??Back Tender Insulation Board sections are submitted in two casse ttes. B. The specimen is received in formalin with proper patient identification, labeled left breast tissue. ??It consists of multiple pieces of yellow-guerrero fatty fibrous breast tissue and skin, 2 56 g and 13.8 x 11.0 x 3.4 cm in aggregate. ??No nipple is identified . ??Sectioning reveals unremarkable skin, and breast parenchyma with 20% fi brous tissue. ??Back Tender Insulation Board sections are submitted in two casse ttes. The specimens are collected at 9:40 AM, placed in formalin 1 1:30 AM, received in the surgical pathology lab at 11:33 AM, sectione d and replaced in formalin at 4:10 PM on 11/27/2016. (Dictated by: Stephanie Byers 11/27/2016 04:12 PM) MICROSCOPIC: Microscopic examination is performed. CPT Codes: A: 08356-NP0 B: 35654-QO4 TESTING LAB LOCATION: [facility], [address] [place] [id number] COLLECTION SITE: Client: General acute hospital Location: UROR (B) Specimen (Source) Anatomical Collection Method Collection Time Re ceived Time Location / / Volume Laterality Tissue specimen RIGHT BREAST 11/27/2016 9:40 AM (specimen) STRUCTURE / CDT Unknown Tissue specimen LEFT BREAST 11/27/2016 9:40 AM (specimen) STRUCTURE / CDT Unknown Hanane Peña MD LAB - BEAKER AP Performing Organization Address City/[facility]/ZIP [facility] Phon e Number COPATH Platelet count (11/27/2016 6:21 AM CDT) athologist Signature Platelet Count 246 150 - [address] [id number] [facility] Specimen Anatomical Collection Method Collection Time Receive d Time (Source) Location / / Volume Laterality Blood specimen 11/27/2016 6:21 AM 017 6:28 (specimen) CDT AM CDT Hanane Peña MD LAB - BLOOD ORDERABLES Performing Organization Address [facility]/ZIP Code Phon e Number [address] [address] [facility] EKG CARDIAC - HIM SCAN (09/04/2016 12:00 AM CDT) Specimen (Source) Anatomical Location Collection Method / Collectio n Time Received Time / Laterality Volume 09/04/2016 Narrative This result has an attachment that is no t available. Provider Scan ECG ORDERABLES documented in this encounter Visit Diagnoses Diagnosis S/P bilateral mastectomy - Primary Acquired absence of breast and nipple documented in this encounter Administered Medications Inactive Administered Medications - up to 3 most recent administrations Medication Order MAR Action Action Date Dose Rate Site bacitracin - polymyxin Given 11/27/2016 8:39 AM 1 Bottle Operative - gentamicin bottle CDT Site/ Surgical Site irrigation PRN, Starting on Fri11/27/16 at 0839, Intra-procedure bupivacaine (MARCAINE) Given 11/27/2016 9:41 AM CDT 2 mLs Other (see comments) injection 0.5% PRN, Starting on Fri11/27/16 at 0941, Intra-procedure ceFAZolin (ANCEF) 1 g vial to attach to NS 100 ml bag for ADULT or 50 ml bag for PEDS Routine, 1 g, Intravenous, SEE ADMIN INS TRUCTIONS, Starting on Fri11/27/16 at 0547, Intra-Op Dose.?Give every 2 hours while patient in surgery, starting 2 hours after pre-op dose.?DO NOT GIVE intra-op dose if CrC l less than 10 mL/min (on dialysis).?If CrCL less than 50 mL/mi n, double the time interval between doses., Indications: Perioperative Pharmacoprophylaxis, Pre-pr ocedure ceFAZolin sodium-dextrose (ANCEF) infusi on 2 g Routine, 2 g, Intravenous, PRE-OP/PRE-MD OCEDURE, Starting on Fri11/27/16 at 0547, For 1 dose, Give first dose within 1 diego r PRIOR to incision. If patient weight is greater than or equal to 120 kg increase dose to 3 g., Indications: Perioperative Pharmacoprophylaxis, Pre-procedure enoxaparin (LOVENOX) injection 40 Given 11/27/2016 7:18 AM 40 mg Abdominal Tissue mg CDT 40 mg, Subcutaneous, PRE-OP/PRE-PROCEDURE, Starting on Fri11/27/16 at 0600, For 1 dose, Verify order with Coin Machine Operator provider prior to Administering., Pre-procedure fentaNYL Citrate (PF) (SUBLIMAZE) injection Given 11/14 11:48 AM CDT 50 mcg 25-50 mcg 25-50 mcg, Intravenous, EVERY 5 MIN PRN, other, acute pain while in PACU., Starting on Fri11/27/16 at 1120, MAX cumulative dose = 250 mcg. Use Fentanyl initially, as a short acting agent for acute pain control. If insufficient, or a longer acting agent is needed, begin Morphine or Hydromorphone if ordered. , PACU HYDROmorphone (DILAUDID) injection 0.3-0.5 Given 11/27/2016 12:21 PM CDT 0.5 mg mg 0.3-0.5 mg, Intravenous, EVERY 10 MIN PRN, other, acute pain.?May administer if Respiratory Rate is greater than 10, Starting on Fri11/27/16 at 1120, If fentanyl is also ordered, use HYDROmorphone if pain control insufficient with fentanyl or a longer acting agent is needed. Max cumulative dose = 2 mg, PACU/Phase II Given 11/27/2016 12:05 PM CDT 0.5 mg lactated ringers infusion at 25 mL/hr, Intravenous, CONTINUOUS, IF patient NOT on dialysis., Pre-procedure, Starting on Fri11/27/16 at 0700, Until Fri11/27/16 at 1843 lidocaine (LMX4) kit Topical, EVERY 1 HOUR PRN, pain, with VA D insertion or accessing implanted port., Starting on Fri11/27/16 at 0659, Do NOT give if patient has a history of allergy to any local anesthetic or any sherri product. Apply 30 minutes prior to VAD insertion or port access. MAX Dose: 2.5 g (?? of 5 g t ube), Pre-procedure lidocaine 1 % 1 mL 1 mL, Other, EVERY 1 HOUR PRN, mild pain with VAD insertion or accessing implanted port, Starting on Fri11/27/16 at 0659, Do NOT give if patient has a history of allergy to any local anesthetic or any sherri product. MAX dose 1 mL subcutaneous OR intradermal in divided doses., Pre-procedure ondansetron (ZOFRAN) injection 4 mg Given 11/27/2016 12:30 PM CDT 4 mg 4 mg, Intravenous, EVERY 30 MIN PRN, nausea, vomiting, Administer over 2-5 Minutes, Starting on Fri11/27/16 at 1227, For 2 doses, MAX total dose = 8 mg, including OR dosing. This is step 1 of the nausea and vomiting protocol. If not resolved in 15 minutes, then go to step 2 (Prochlorperazine if ordered). Irritant., PACU/Phase II ondansetron (ZOFRAN-ODT) ODT tab 4 mg 4 mg, Oral, EVERY 30 MIN PRN, nausea, vo miting, Starting on Fri11/27/16 at 1227, For 2 doses, MAX total dose = 8 mg, including OR dosin g. This is step 1 of the nausea and vomiting protocol. If not resolved in 15 mi nutes, then go to step 2 (Prochlorperazine if ordered)., PACU/Phase II prochlorperazine (COMPAZINE) injection 5 -10 mg Given 11/27/2016 1:23 PM CDT 5 mg 5-10 mg, Intravenous, EVERY 6 HOURS PRN, nausea, vomiting, Starting on Fri11/27/16 at 1120, This is Step 2 of the nausea and vomiting protocol. If nausea not resolved in 15 minutes, give Metoclopramide if ordered (step 3 of nausea and vomiting protocol) , PACU/Phase II ROPivacaine 0.2% (NAROPIN) 550 mL in ON-Q New Bag 11/27/2016 1 1:30 AM CDT 4 mL/hr 4 mL/hr (EX174-Z holds 400-500 mL) 10 dual cath disposable pump at 4 mL/hr, CONTINUOUS, Starting on Fri11/27/16 at 0800, ROUTE = Wound Site. Medication is delivered through a catheter that has been placed by the surgeon into the wound site. sodium chloride (PF) 0.9% PF flush 3 mL 3 mL, Intracatheter, EVERY 1 HOUR PRN, l ine flush, for peripheral IV flush post IV meds, Starting on Fri11/27/16 at 0659, Pre-procedure sodium chloride (PF) 0.9% PF flush 3 mL 3 mL, Intracatheter, EVERY 8 HOURS, Firs t dose on Fri11/27/16 at 0700, And Q1H PRN, to lock peripheral IV dormant line., Pre-procedure documented in this encounter Active and Recently Administered Medications Times are shown in CDT. Scheduled Medication Order 11/25/2016 11/26/2016 11/27/2016 ceFAZolin (ANCEF) 1 g vial to attach to NS 100 ml bag for ADULT or 50 ml bag for PEDS 1 g, Intravenous, SEE ADMIN INSTRUCTIONS , Starting Fri11/27/16 at 0547, Intra-Op Dose.?Give every 2 hours while patient in surgery, starting 2 hours after pre-op dose.?DO NOT GIVE intra-op dose if CrCl less than 10 mL/min (on dialysis). ?If CrCL less than 50 mL/min, double the time interval between doses., Indications: Surgical Prophylaxis, Pre-procedure ceFAZolin sodium-dextrose (ANCEF) infusion 2 g (COMPLETED) 0744 (Given - Provider: Jane Patel APRN CRNA)0944 (Given - Provider: Jane M Hammerberg, TACTICAL DEBRIEFER FLATCAR WHACKER) Routine, 2 g, Intravenous, PRE-OP/PRE-MD OCEDURE, Starting on Fri11/27/16 at 0547, For 1 dose, Give first dose within 1 hour PRIOR to incision. If patient weight is greater than or equal to 120 kg increa se dose to 3 g., Indications: Perioperative Pharmacoprophyla xis, Pre-procedure ceFAZolin sodium-dextrose (ANCEF) infusion 2 g 2 g, Intravenous, PRE-OP/PRE-PROCEDURE, Starting Fri11/27/16 at 0547, For 1 dose, Give first dose within 1 hour PRIOR to incision. If patient weight is greater than or equal to 120 kg increase dose to 3 g., Indications: Surgical Prophylaxis, Pre-procedure enoxaparin (LOVENOX) injection 40 mg (COMPLETED) 18 (Given - Provider: Corrine Pennington RN) 40 mg, Subcutaneous, PRE-OP/PRE-PROCEDUR E, Starting on Fri11/27/16 at 0600, For 1 dose, Verify order with Coin Machine Operator provider prior to Administering., Pre-procedure sodium chloride (PF) 0.9% PF flush 3 mL 0700 (Canceled Entry - Provider: Orders Generic Provider - Comment: Automatically canceled at discontinue of medication order)1500 (Canceled Entry - Provider: Orders Generic Provider - Comment: Automatically canceled at discont 3 mL, Intracatheter, EVERY 8 HOURS, Firs t dose on Fri11/27/16 at 0700, And Q1H PRN, to lock peripheral IV dormant line., Pre-procedure inue of medication order) Continuous Medication Order 11/25/2016 11/26/2016 11/27/2016 lactated ringers infusion 0700 ( Canceled Entry - Provider: Orders Generic Provider - Comment: Automatically canceled at discontinue of medication order) at 25 mL/hr, Intravenous, CONTINUOUS, IF patient NOT on dialysis., Pre- procedure, Starting Fri11/27/16 at 0700, Until Fri11/27/16 at 1843 lactated ringers infusion 1130 ( Canceled Entry - Provider: Orders Generic Provider - Comment: Automatically canceled at discontinue of medication order) at 100 mL/hr, Intravenous, CONTINUOUS, C ontinue until IV catheter is weaned, PACU/Phase II, Starting Fri11/27/16 at 1130, Until Fri11/27/16 at 1843 ROPivacaine 0.2% (NAROPIN) 550 mL in ON- Q 4 mL/hr (TR311-U holds 400-500 mL) 10 dual cath disposable pump 1130 (New Bag - Provider: Marcelino Dominguez RN) at 4 mL/hr, CONTINUOUS, Starting 11/14 at 0800, ROUTE = Wound Site. Medication is delivered through a catheter that has been placed by the surgeon into the wound site. PRN Medication Order 11/25/2016 11/26/2016 11/27/2016 bacitracin - polymyxin - gentamicin bottle irrigation 0839 (Given - Provider: Hanane Peña MD - Comment: On back table used throughout procedure) PRN, Starting Fri11/27/16 at 0839, Intra-procedure bupivacaine (MARCAINE) injection 0.5% 0941 (Given - Provider: Hanane Peña MD - Comment: 1mL used to prime each on-q catheter for a total of 2mL.) PRN, Starting Fri11/27/16 at 0941, Intra-procedure fentaNYL Citrate (PF) (SUBLIMAZE) injection 25-50 mcg 1148 (Given - Provider: Shahla Woods, CASH) 25-50 mcg, Intravenous, EVERY 5 MIN PRN, Starting Fri11/27/16 at 1120, other, acute pain while in PACU., MAX cumulative dose = 250 mcg. Use Fentanyl initially, as a short acting agent for acute pain con trol. If insufficient, or a longer actin g agent is needed, begin Morphine or Hydromorphone if ordered. , PACU HYDROmorphone (DILAUDID) injection 0.3-0.5 mg 1205 (Given - Provider: Shahla Woods, RN)1221 (Given - Provider: Shahla Woods, CASH) 0.3-0.5 mg, Intravenous, EVERY 10 MIN MD N, Starting Fri11/27/16 at 1120, Until Fri11/27/16 at 1843, other, acute pain.?May administer if Respiratory Rate is greater than 10, PACU/Phase II, If fentany l is also ordered, use HYDROmorphone if pain control insufficient with fentanyl or a longer acting agent is needed. Max cumulative dose = 2 mg lidocaine (LMX4) kit Topical, EVERY 1 HOUR PRN, pain, with VA D insertion or accessing implanted port., Starting Fri11/27/16 at 0659, Do NOT give if patient has a history of allergy to any local anesthetic or any sherri pro duct. Apply 30 minutes prior to VAD inse rtion or port access. MAX Dose: 2.5 g (?? of 5 g tube), Pre-procedure lidocaine 1 % 1 mL 1 mL, Other, EVERY 1 HOUR PRN, mild pain with VAD insertion or accessing implanted port, Starting Fri11/27/16 at 0659, Do NOT give if patient has a history of allergy to any local anesthetic or any ryanne ne product. MAX dose 1 mL subcutaneous OR intradermal in divided doses., Pre-procedure meperidine (DEMEROL) injection 12.5 mg 12.5 mg, Intravenous, EVERY 15 MIN PRN, 2 doses, Starting Fri11/27/16 at 1120, Until Fri11/27/16 at 1843, post anesthesia shivering, PACU/Phase II naloxone (NARCAN) injection 0.1-0.4 mg 0.1-0.4 mg, Intravenous, EVERY 2 MIN PRN , opioid reversal, Starting Fri11/27/16 at 1227, For 24 hours, For apnea or imminent respiratory arrest: give 0.4 mg IV undiluted Q 2 minutes PRN until desired de gree of reversal is obtained, stop opioi d and notify provider. Continue monitoring until discharge are criteria met for a minimum of 2 hours. For severe sedation, decrease in respiratory depth, quality or Respiratory Rate greater than 8: give 0.1 mg IV Q 2 minutes x 3 doses, stop opioid and notify provider. Try to minimize reversal of analgesia especially in end-of-life patients. Continue monitoring u ntil discharge criteria are met for a minimum of 2 hours., PACU/ Phase II ondansetron (ZOFRAN) injection 4 mg(Linked Group 1) 1230 (Given - Provider: Shahla Woods RN) 4 mg, Intravenous, EVERY 30 MIN PRN, boubacar sea, vomiting, Administer over 2-5 Minutes, Starting Fri11/27/16 at 1227, For 2 doses, MAX total dose = 8 mg, including OR dosing. This is step 1 of the nausea an d vomiting protocol. If not resolved in 15 minutes, then go to step 2 (Prochlorperazine if ordered). Irritant., PACU/Phase II ondansetron (ZOFRAN-ODT) ODT tab 4 mg(Linked Group 1) 1230 (See Alternative - Provider: Shahla Woods RN) 4 mg, Oral, EVERY 30 MIN PRN, nausea, vo miting, Starting Fri11/27/16 at 1227, For 2 doses, MAX total dose = 8 mg, including OR dosing. This is step 1 of the nausea and vomiting protocol. If not resolved in 15 minutes, then go to step 2 (Prochlorperazine if ordered)., PACU/Phase II ORAL Pain Medications - may administer as ordered by surgeon for take home use CONTINUOUS PRN, Starting Fri11/27/16 at 1120, Until Fri11/27/16 at 1843, May administer oral pain medications as ordered by surgeon for take home use. Discontinue IV pain medication prior to administration of oral pain medication., PACU/Phase II prochlorperazine (COMPAZINE) injection 5-10 mg 1323 (Given - Provider: Patricia Latif RN) 5-10 mg, Intravenous, EVERY 6 HOURS PRN, nausea, vomiting, Starting Fri11/27/16 at 1120, This is Step 2 of the nausea and vomiting protocol. If nausea not resolved in 15 minutes, give Metoclopramide if ordered (step 3 of nausea and vomiting protocol) , PACU/Phase II sodium chloride (PF) 0.9% PF flush 3 mL 3 mL, Intracatheter, EVERY 1 HOUR PRN, l ine flush, for peripheral IV flush post IV meds, Starting Fri11/27/16 at 0659, Pre-procedure Linked Groups Order Group 1: ondansetron (ZOFRAN-ODT) ODT tab 4 mgJump to med 4 mg, Oral, EVERY 30 MIN PRN, nausea, vo miting, Starting Fri11/27/16 at 1227, For 2 doses
MAX total dose = 8 mg, including OR dosing. This is step 1 of the nausea and vomiting protocol.&nbs p; If not resolved in 15 minutes, t hen go to step 2 (Prochlorperazine if ordered).
PACU/Phase II Or ondansetron (ZOFRAN) injection 4 mgJump to med 4 mg, Intravenous, EVERY 30 MIN PRN, boubacar sea, vomiting, Administer over 2-5 Minutes, Starting 11/27/16 at 1227, For 2 doses
MAX total dose = 8 mg, including OR dosing. This is step 1 of the n ausea and vomiting protocol. If not resolved in 15 minutes, then go to step 2 (Prochlorperazine if ordered). Irritant.
PACU/Phase II documented in this encounter Additional Health Concerns Assessment Noted Time PHQ-9 Depression Total Score: 19 01/16/2016 7:18 AM CD T documented as of this encounter Care Teams Dormitory Supervisor Relationship Specialty Start Date End Date Carrie Tinsley MD PCP - General 04/23/16 12/12/16 [facility] [address] [place], [place] [id number] Bella Sears MD General Surgery 11/28/14 Hanane Peña MD MD Plastic Surgery 10/30/15 [address] [facility] [place] [address] [place], [place] [id number] Sofiya Keenan MD MD chemistry technical officer 01/11/[id number] [facility] [address] [place] [address] Debby Suggs, CLARIFIER CLARIFIER Plastic Surgery 11/26/16 documented as of this encounter
--- OUTSIDE RECORDS SUMMARY | 2022-04-12 08:19 | XMS_ITS | Encounter Summary ---
:1995 Author Organization [place] Address [facility] [place] [address] Care Team Providers Name Role Phone Bella Sears MD Unavailable Hanane Peña MD Unavailable Sofiya Keenan MD Unavailable Carrie Tinsley MD Primary Care Provider [phone] Debby Suggs LPN Unavailable Unavailable Reason for Visit Auth/Cert Specialty Diagnoses / Procedures Referred By Contact Refer red To Contact Surgery Diagnoses Gender Dysphoria Ur Periop Procedures TRANSGENDER MASTECTOMY RECONSTRUCT NIPPLE BILATERAL [address] [place] [address] Phone: Fax: Referral ID Status Reason Start Date Expiration Date Visits Requ ested Visits Authorized [id number] 1 1 Encounter Details Date Type Department Care Team Description 11/27/2016 Surgery [facility]ly [facility] Hanane Peña ateral Subcutaneous PeriOp Services MD Edel Mastectomies, Nipple [address] [place] [address] [facility] [phone] [place] [address] (Wo rk) Surgery Details Date/Time Status Location OR Service Patient Case Case Traum a Class Class Type Case? 11/27/16 7:30 Posted UR OR UR OR Plastics & Same Day AM 15 Reconstruction Surgery Panel 1 Procedure LRB Anes Op Region Wound Class Commen ts Bilateral Subcutaneous Bilateral General Breast I-Clean Bi lateral Subcutaneous Mastectomies, Nipple Mast ectomies, Nipple Grafts OnQ Grafts OnQ Surgeon Surgeon Role Service Panel Hanane Peña MD Primary Plastics & Reconstruct ion 1 Sajan Calle Resident - Assisting 1 Special Needs H&P to be Completed by Primary Care Phys truptian documented in this encounter Social History Tobacco [...] Sign Reading Time Taken Comments Blood Pressure 117/71 11/27/2016 11:45 AM CDT Pulse 55 11/27/2016 5:42 AM CDT Temperature 36.4 ??C (97.5 ??F) 11/27/2016 11:45 AM CDT Respiratory Rate 16 11/27/2016 11:45 AM CDT Oxygen Saturation 98% 11/27/2016 11:45 AM CDT Inhaled Oxygen Concentration - - [...] Flip open the clear cover on the fhnazd-n-pldb device. o Turn the white tavares clockwise on the rghvjl-a-mafo dial to the instructed rate. (The rate of the infusion should line up with the black arrow at the top of the controller.) o Listen for the click when you move the dial. o The tavares may be removed from the tfdxlg-d-xcog dial, or the plastic cover on the [...] removed Notifying your Anesthesiologist o Page: Dial [phone], then enter [phone]. You will be prompted to enter your phone number and thenthe # sign. The anesthesiologist will call you back. o Call: Dial [phone]. Ask to speak to the anesthesiologist visualization developer for the [facility]. Updated [...] To contact a doctor, call or: ??? [phone] and ask for the Resident Senior Care Specialist for: (answered 24 hours a day) ??? Emergency Department: [place] Emergency Department: [phone] [place] [facility] Department: [phone] Rev. 03/2014 documented in this encounter Medications [...] times daily solutionIndications: Acne vulgaris FLUTICASONE PROPIONATE, [place] 1 spray in 0 03/20/2020 NASAL, NA [...] as of this encounter Nursing Notes Imani Garces, RN - 11/27/2016 11:44 AM CDT Report [...] CD Name: NAHID CHAKRABORTY MRN: [id number] Account: [id number] : 1995 Procedure Date: 11/27/2016 Document: [id number] Plan of Care - Suly Velez RN [...] ED where mother is, and ride will pick up truck driver there. Brief Op Note - Sajan Calle MD - 11/27/2016 11:34 AM CDT [facility] [place] Brief Operative Note Pre-operative diagnosis: Gender Dysphoria [...] Special Needs H&P to be Completed by [facility] Physician PLATELET COUNT STAT 11/27/2016 6:21 AM CDT Res ults for this procedure are in the results section. EKG CARDIAC - HIM SCAN 09/04/2016 12:00 AM CDT documented in this encounter Results Surgical pathology exam (11/27/2016 9:40 AM CDT) Component Value Ref Test Analysis Performed At [facility] [employer] Range Method Time Signature Copath Report Patient Name: NAHID CHAKRABORTY MR#: [id number] Specimen #: [id number] Collected: 11/27/2016 Received: 11/27/2016 Reported: 12/03/2016 15:39 [...] Electronically signed out by: Jessie Almonte M.D, [facility] CLINICAL HISTORY: The patient is a [...] breast parenchyma with 20% fi brous tissue. ??Associate Media Director sections are submitted in two [facility] ttes. B. The specimen is received in formalin with proper patient identification, labeled left breast tissue. ??It consists of multiple pieces of yellow-guerrero fatty fibrous breast tissue and skin, 2 56 g and 13.8 x 11.0 x 3.4 cm in aggregate. ??No nipple is identified . ??Sectioning reveals unremarkable skin, and breast parenchyma with 20% fi brous tissue. ??Associate Media Director sections are submitted in two casse ttes. The specimens are collected at 9:40 AM, placed in formalin 1 1:30 AM, received in the surgical pathology lab at 11:33 AM, sectione d and replaced in formalin at 4:10 PM on 11/27/2016. (Dictated by: Stephanie Byers 11/27/2016 04:12 PM) MICROSCOPIC: Microscopic examination is performed. CPT Codes: A: 48119-DO0 B: 12210-KM5 TESTING LAB LOCATION: [facility], [address] [place] [id number] COLLECTION SITE: Client: [facility] Location: UROR (B) Specimen (Source) Anatomical Collection Method Collection Time Re ceived Time Location / / Volume Laterality Tissue specimen RIGHT BREAST 11/27/2016 9:40 AM (specimen) STRUCTURE / CDT Unknown Tissue specimen LEFT BREAST 11/27/2016 9:40 AM (specimen) STRUCTURE / CDT Unknown Hanane Peña MD LAB - BEAKER AP Performing Organization Address City/State/ZIP Code Phon e Number COPATH Platelet count (11/27/2016 6:21 AM CDT) P athologist Signature Platelet Count 246 150 - 450 [place] [id number]/L [facility] Specimen Anatomical Collection Method Collection Time Receive d Time (Source) Location / / Volume Laterality Blood specimen 11/27/2016 6:21 AM 017 6:28 (specimen) CDT AM CDT Hanane Peña MD LAB - BLOOD ORDERABLES Performing Organization Address City/State/ZIP Code Phon e Number [address] [address] [facility] EKG CARDIAC - HIM SCAN (09/04/2016 12:00 AM CDT) Specimen (Source) Anatomical Location Collection Method / Collectio n Time Received Time / Laterality Volume 09/04/2016 Narrative This result has an attachment that is no t available. Provider Scan ECG ORDERABLES documented in this encounter Visit Diagnoses Not [...] on 2 g Routine, 2 g, Intravenous, PRE-OP/PRE-WY OCEDURE, Starting on Fri11/27/16 at 0547, For [...] 0600, For 1 dose, Verify order with Cable Inspector provider prior to Administering., Pre-procedure fentaNYL Citrate [...] 1:30 AM CDT 4 mL/hr 4 mL/hr (ML501-X holds 400-500 mL) 10 dual cath disposable [...] ceFAZolin sodium-dextrose (ANCEF) infusion 2 g (COMPLETED) 07 (Given - Provider: Jane Patel APRN CONTOUR BAND SAW OPERATOR VERTICAL)0944 (Given - Provider: Jane Patel APRN CRNA) Routine, 2 g, Intravenous, PRE-OP/PRE-WY OCEDURE, Starting on Fri11/27/16 at 0547, For [...] Pre-procedure enoxaparin (LOVENOX) injection 40 mg (COMPLETED) 717 (Given - Provider: Corrine Pennington RN) 40 mg, Subcutaneous, PRE-OP/PRE-PROCEDUR E, Starting on Fri11/27/16 at 0600, For 1 dose, Verify order with Cable Inspector provider prior to Administering., Pre-procedure sodium chloride [...] 550 mL in ON- Q 4 mL/hr (ZV172-Y holds 400-500 mL) 10 dual cath disposable [...] mg 1205 (Given - Provider: Shahla Woods, CASH)1221 (Given - Provider: Shahla Woods RN) 0.3-0.5 mg, Intravenous, EVERY 10 MIN WY N, Starting Fri11/27/16 at 1120, Until Fri11/27/16 [...] Group 1) 1230 (Given - Provider: Shahla Woods, CASH) 4 mg, Intravenous, EVERY 30 MIN PRN, [...] Minutes, Starting Fri11/27/16 at 1227, For 2 doses
[...] documented as of this encounter Care Teams Strip Roller Relationship Specialty Start Date End Date Carrie Tinsley MD PCP - General 04/23/16 12/12/16 [facility] 2019 [place], [place] [id number] Bella Sears MD General Surgery 11/28/14 Hanane Peña MD MD Plastic Surgery 10/30/15 [address] [facility] [address] [place] [address] Sofiya Keenan MD MD single ending machine operator 01/11/16 [address] [facility] [address] [place] [address] Debby Suggs, ERENDIRA PRECAST MOLDER Plastic Surgery 11/26/16 documented as of this encounter
--- OUTSIDE RECORDS SUMMARY | 2022-04-12 08:19 | XMS_ITS | Encounter Summary ---
:1995 Author Organization [place] Address [address] [place] [address] Care Team Providers Name Role Phone Bella Sears MD Unavailable Tana Peña MD Unavailable Soifya Keenan MD Unavailable Carrie Tinsley MD Primary Care Provider [phone] Debby Suggs LPN Unavailable Unavailable Reason for Visit Reason Comments Clinic Care Coordination - Initial Ineligible [facility] Encounter Details Date Type Department Care Team Description 12/06/2016 [facility]ation Only [facility] Clinic Coordination - Initial [address] [place] [address], Inelig ... [address] [place] [address] Social History Tobacco Use Types Packs/Day Years [...] documented as of this encounter Care Teams Financial Assistance Specialist Relationship Specialty Start Date End Date Carrie Tinsley MD PCP - General 04/23/16 12/12/16 [facility] [address] [place] [address] Bella Sears MD General Surgery 11/28/14 Tana Peña MD MD Plastic Surgery 10/30/15 [address] [place] [address] [facility] [address] [place] [address] Sofiya Keenan MD MD chartered accountant 01/11/[address] [place], [place] [id number] Debby Suggs LPN RESPIRATORY THERAPIST Plastic Surgery 11/26/16 documented as of this encounter
--- OUTSIDE RECORDS SUMMARY | 2022-04-12 08:19 | XMS_ITS | Encounter Summary ---
:1995 Author Organization [place] Address [address] [place] [address]. [place] [address] Care Team Providers Name Role Phone Bella Sears MD Unavailable Tana Peña MD Unavailable Sofiya Keenan MD Unavailable Miguelina Wise DO Primary Care Provider [phone] Debby Suggs COMPUTER INSTALLATION ENGINEER Unavailable Unavailable Reason for Visit Reason Onset Date Comments Refill Request 07/07/2017 hypodermic needle 18 g x 1 Encounter Details Date Type Department Care Team Description 07/07/2017 Refill [facility] Miguelina Wise Refill [facility] DO Tana (hypodermic needle 18g x [address] [place] [address]) [address] [place] [address] [place], [place] [phone] (Wo rk) Social History Tobacco Use Types Packs/Day Years Used Date Smoking Tobacco: Former Cigarettes 0.3 Quit : 09/14/2016 Alcohol Use Standard Drinks/Week Comments Yes 0 (1 standard drink = 0.6 oz pure alcoho l) rarely Sex Assigned at Date Recorded Female 03/20/2020 2:05 PM CDT documented as of this encounter Miscellaneous Notes Telephone Encounter - Lenard Pearce CMA - 07/07/2017 2:05 PM CST Request for medication refill: Date of last visit at clinic: 01/10/2017 Please complete refill if appropriate and CLOSE ENCOUNTER. Closing the encounter signifies the refill is complete. If refill has been denied, please complete the smart phrase .smirefuse and route it to the P [facility] LAN/WAN ENGINEER pool to inform the patient and the pharmacy. 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 documented as of this encounter Visit Diagnoses Diagnosis Gender dysphoria in adolescent and adult documented in this encounter Additional Health Concerns Assessment Noted Time PHQ-9 Depression Total Score: 0 01/11/2017 7:28 AM CDT documented as of this encounter Care Teams Psychiatric Social Worker Relationship Specialty Start Date End Date Miguelina Wise DO PCP - General Student in [facility] 12/13/16 01/11/19 health care education/training program Bella Sears MD General Surgery 11/28/14 Tana Peña MD MD Plastic Surgery 10/30/15 [address] [facility] [address] [place] [address] Sofiya Keenan MD MD government documents librarian 01/11/[address] [place] [address] Debby Suggs LPN COMPUTER INSTALLATION ENGINEER Plastic Surgery 11/26/16 documented as of this encounter
--- OUTSIDE RECORDS SUMMARY | 2022-04-12 08:19 | XMS_ITS | Encounter Summary ---
:1995 Author Organization [place] Address [address] [place] [address]. [place] [address] Care Team Providers Name Role Phone Bella Sears MD Unavailable Tana Peña MD Unavailable Sofiya Keenan MD Unavailable Miguelina Wise DO Primary Care Provider [phone] Debby Suggs LPN Unavailable Unavailable Reason for Visit Reason Onset Date Comments Prior Auth - Medication 02/13/2017 Androderm 2mg -I nitiated-Denied- Encounter Details Date Type Department Care Team Description 02/13/2017 Telephone [facility] Ana Rosa Pete Prior Aut h - Medication Medicine Clinic MD Doug (Androderm 2mg [address], [address] -Initiated-Denied-) [address] [place], [place] [address] [phone] Social History Tobacco Use Types Packs/Day Years Used Date Smoking Tobacco: Former Cigarettes 0.3 Quit : 09/14/2016 Alcohol Use Standard Drinks/Week Comments Yes 0 (1 standard drink = 0.6 oz pure alcoho l) rarely Sex Assigned at Date Recorded Female 03/20/2020 2:05 PM CDT documented as of this encounter Miscellaneous Notes Telephone Encounter - Domenic Jimenesmella - 04/04/2017 8:55 AM CDT PA Appeal Denied. Level 1# Please see denial below for information covering denial. Rationale: has not confirmed that you are receiving routine monitoring of cross- sex hormone treatment. Your treatment must be monitored for efficacy and safety at least once a year. You have not tried the preferred Androgel 1.62%. You also do not have a side effect, FDA labeled contraindication, or allergy to the Androgel 1.62% If there is new information to support our request for resubmission. Please inform PA Team if you would like To initiate a Second Level Appeal. Talya Jimenes CMA ?? Telephone Encounter - Miguelina Simpson - 03/31/2017 2:33 PM CDT Images from the original note were not included. MEDICATION APPEAL DENIED Medication: Androderm 2mg -Initiated-Denied- Denial Date: 03/28/2017 Denial Rational: The prior authorization for the patient's Androderm has been denied by the patient's insurance based on: Your prescriber has not confirmed that you are receiving routine monitoring of cross-sex hormone treatment. Your treatment must be monitored for efficacy and safety at least once ayear. You have not tried the preferred Androgel 1.62%. You also do not have a side effect, FDA labeled contraindication, or allergy to the Androgel 1.62% Second Level Appeal Information: Second level appeals will be managed by the clinic staff and provider. Please contact the [facility] Prior Authorization Team if additional information about the denial is needed. Telephone Encounter - Mila Churchill - 03/27/2017 1:22 PM CDT [facility] Prior Authorization Team Medication Appeal Request Please initiate an appeal for the requested medication: Androderm 2mg -Initiated- Has a letter of medical necessity been completed in [facility]? yes Sent appeal with letter of necessity on 03/27 Telephone Encounter - Talya Jimenes - 03/27/2017 9:19 AM CDT Medication Appeal Request Please initiate an appeal for the requested medication: Androderm 2mg -Initiated- Has a letter of medical necessity been completed in [facility]? Yes Any additional lab values/information to include? See chart Would you like to include any research articles? No If yes please include the hyperlink(s) below or fax to [phone] for Specialty/Retail [phone] for Infusion/Clinic Administered. Include the patients name and MRN on the fax cover sheet.. Talya Jimenes CMA Telephone Encounter - Talya Jimenes - 03/11/2017 2:21 PM CDT Please complete the letter in the letter tab: [facility] MEDICAL NECESSITY MEDICATION This has to be based on the denial rationale. Once completed please route to the PA pool for initiation of the appeal process. Talya Jimenes CMA Telephone Encounter - Miguelina Garcia MD - 03/10/2017 2:22 PM CDT Can you please walk me through how to do the appeal process and how to complete a letter of medical necessity. This is my first time completing an appeal. Thanks, much appreciated! Miguelina Garcia, DO [facility] PGY2 Telephone Encounter - Janet Eddy CMA - 03/10/2017 1:57 PM CDT The patient would like to move forward with the appeals process. They need the letter of medical necessity and lab work sent to [facility] and then they will cover the medication. He has enough injectable medication for quite a while and will not need a refill was really just looking to get an alternative to the injection of the medication. Please start the appeals process. Telephone Encounter - Shira Bustos - 03/06/2017 2:12 PM CDT Unable to reach patient to schedule an appointment following PA denial to discuss alternatives. Leftvoicemail with only clinic call back number. Telephone Encounter - Miguelina Garcia MD - 03/05/2017 1:00 PM CDT Will route to front end driver to have patient come in for clinic appointment to discuss alternatives. Thanks, Miguelina Garcia DO [facility] PGY2 Telephone Encounter - aTlya Jimenes - 03/05/2017 8:25 AM CDT Prior Authorization: Denied Denied Reason: Please see the letter below for explaination Alternatives: Androgel 1.62%, [facility] notified. Routing to MD Talya Jimenes PATTERN CHAIN MAKER SUPERVISOR Telephone Encounter - Mila Churchill - 02/27/2017 12:41 PM CDT Images from the original note were not included. PRIOR AUTHORIZATION DENIED Medication: Androderm 2mg -Initiated- Denial Date: 02/27 Denial Rational: Appeal Information: Telephone Encounter - Miguelina Simpson - 02/20/2017 2:14 PM CDT Images from the original note were not included. PA Initiation Medication: Androderm 2mg -Initiated- Insurance Company: [employer] [place] - Pharmacy Filling the [facility] - [address] Filling Pharmacy Filling Pharmacy Fax: Start Date: 02/20/2017 Telephone Encounter - Talya Jimenes - 02/14/2017 8:24 AM CDT Faxed received and [facility] is unable to locate prescription coverage for this patient. Please start PA process. Prior Authorization Retail Medication Request Medication/Dose: Androderm 2mg Diagnosis and ICD code: F64.0 New/Renewal/Insurance Change PA: n/a Previously Tried and Failed Therapies: Testosterone 4mg,Androderm 2mg, Insurance ID (if provided): none Insurance Phone (if provided): none Any additional info from fax request: If you received a fax notification from an outside Pharmacy: Pharmacy Name:[facility] #:[phone] Pharmacy . Telephone Encounter - Talya Jimenes - 02/13/2017 11:01 AM CDT PA started 02/13/17 Cover my meds tavares: [id number] Pharmacy [employer] , Talya Jimenes [facility] documented in this encounter Plan of Treatment [...] documented as of this encounter Care Teams Policewoman Relationship Specialty Start Date End Date Miguelina Wise DO PCP - General Student in [employer] [facility] 12/13/16 01/11/19 [facility] care education/training program Bella Sears MD General Surgery 11/28/14 Tana Peña MD MD Plastic Surgery 10/30/[address] [place] [address] Sofiya Keenan MD MD size painter 01/11/16 [address] [facility] [address] [place] [address] Debby Suggs LPN YARD STOCKER Plastic Surgery 11/26/16 documented as of this encounter
--- OUTSIDE RECORDS SUMMARY | 2022-04-12 08:19 | XMS_ITS | Encounter Summary ---
:1995 Author Organization [place] Address [address] [place] [address] Care Team Providers Name Role Phone Bella Sears MD Unavailable Tana Peña MD Unavailable Sofiya Keenan MD Unavailable Miguelina Wise DO Primary Care Provider [phone] Debby Suggs LPN Unavailable Unavailable Aung Salinas MD Unavailable Dana Jane RN Unavailable Shahzad Sen MD Unavailable John Gresham Unavailable Seun Valladares MD Primary Care Provider [phone] Macre Gallardo MD Primary Care Provider Marce Gallardo MD Primary Care Provider Marce Gallardo MD Unavailable Bella Sears MD Primary Care Provider [phone] Marce Gallardo MD Primary Care Provider Marce Gallardo MD Unavailable Darcy Jackson DO Unavailable Marce Gallardo MD Unavailable Beckie Cota MD Primary Care Provider Aung Salinas MD Unavailable Beckie Cota MD Unavailable Brenna Malcolm MD Primary Care Provider [phone] Marce Gallardo MD Unavailable Belkis Champion MD Unavailable Marce Gallardo MD Unavailable Reason for Visit Reason Onset Date Comments Forms 02/25/2017 Encounter Details Date Type Department Care Team Description 02/25/2017 Telephone [facility] Miguelina Wise, Forms Clinic DO [address], [address] [place] [address] [address] [place], [place] [address] [place] [address] [phone] (Wo rk) Social History Tobacco Use Types Packs/Day Years Used Date Smoking Tobacco: Former Cigarettes 0.3 Quit : 09/14/2016 Alcohol Use Standard Drinks/Week Comments Yes 0 (1 standard drink = 0.6 oz pure alcoho l) rarely Sex Assigned at Date Recorded Female 03/20/2020 2:05 PM CDT documented as of this encounter Miscellaneous Notes Telephone Encounter - Shira Bustos - 02/25/2017 1:42 PM CDT [facility] Family Medicine phone call message- patient requesting form status: Type of Form: Release of Information Form Given to: Faxed to MR Submitted: within 10 business days Date Submitted: 02/20/2017 Date Needed by: 03/11/2017 Additional Comments: Has consult in [place] on 03/12/2017. Release of Information needed before then. Patient requests call back about whether SOTNE had been received and/or sent. OK to leave a message on voice mail? Yes Primary language: Angolan 7Th Grade Social Studies Teacher needed? No Call taken on February 25, 2017 at 1:42 PM by Shira Bustos documented in this encounter Plan of Treatment [...] documented as of this encounter Care Teams Business Continuity Manager Relationship Specialty Start Date End Date Miguelina Wise PCP - General Student in organized 12/13/16 01/11/19 [facility] education/training program Seun Valladares PCP - General Student in organized 01/24/19 Avery Salinas MD health care [address] [place] [address] education/training [address] [place] [address] (Fax) Marce Gallardo MD PCP - General Student in organized 01/12/19 01/23/[address] [address] education/training program Marce Gallardo MD PCP - General Student in organized 05/17/19 07/15/[address] [address] education/training program Bella Sears, PCP - General 07/16/[address] [address] Marce Gallardo MD PCP - General Family Medicine 07/24/20 12/12/[address] [address] (Fax) Beckie Cota MD PCP - General Student in organized 12/13/20 04/03/21 [facility] health care Program education/training [address] [place] [address] Brenna Malcolm, PCP - General Family Medicine 04/04/21 [facility] [address] [place] [address] Bella Sears, General Surgery 11/28/14 Tana Peña MD Plastic Surgery 10/30/[address] [place] [address] Sofiya Keenan MD MD cafe server 01/11/[address] [place] [address] Debby Suggs LPN LIFE SUPPORT TECHNICIAN Plastic Surgery 11/26/16 Aung Salinas MD MD Urology 05/04/18 [address] [place] [address] Dana Jane, CASH Registered Nurse Urology 05/04/18 01/15/22 Shahzad Sen MD MD Plastic Surgery 10/08/18 [facility] [address] [place] [address] [facility] Plastic Surgery 10/08/18 Coordinator Marce Gallardo MD Assigned PCP 07/30/20 11/08/20 [facility] [id number] [place] [address] Marce Gallardo MD Assigned PCP 11/04/19 07/29/[address] [address] Darcy Jackson DO Assigned PCP 11/09/20 11/18/20 [address] [place], [place] [id number] Marce Gallardo MD Assigned PCP 11/19/20 12/16/20 [facility] [address] [place] [address] Aung Salinas MD Assigned Surgical 12/17/[address] [place] [address] Beckie Cota MD Assigned PCP 12/17/20 04/07/21 [facility] Residency Program [address] [place] [address] Marce Gallardo MD Assigned PCP 04/08/21 06/30/21 [facility] [address] [place] [address] Belkis Champion MD Assigned PCP 07/01/21 01/18/[address] [place], [place] [id number] Marce Gallardo MD Assigned PCP 01/19/22 [facility] [address] [place] [address] documented as of this encounter
--- OUTSIDE RECORDS SUMMARY | 2022-04-12 08:19 | XMS_ITS | Encounter Summary ---
:1995 Author Organization [place] Address [address] [place] [address] [address] Care Team Providers Name Role Phone Bella Sears MD Unavailable Tana Peña MD Unavailable Sofiya Keenan MD Unavailable Miguelina Wise DO Primary Care Provider [phone] Debby Suggs LPN Unavailable Unavailable Reason for Visit Reason Onset Date Comments Medication Question 02/11/2017 Encounter Details Date Type Department Care Team Description 02/11/2017 Telephone [facility] Miguelina Wise Medication Question Clinic DO Tana [address] [place] [address] [place], [place] [phone] (Wo rk) Social History Tobacco Use Types Packs/Day Years Used Date Smoking Tobacco: Former Cigarettes 0.3 Quit : 09/14/2016 Alcohol Use Standard Drinks/Week Comments Yes 0 (1 standard drink = 0.6 oz pure alcoho l) rarely Sex Assigned at Date Recorded Female 03/20/2020 2:05 PM CDT documented as of this encounter Miscellaneous Notes Telephone Encounter - Kerry Dueñas RN - 02/11/2017 1:51 PM CDT RN received local print rx for andoderm from PCP. RN called patient to inform that script for androderm will be sent to [facility] pharmacy. RN instructed to make an appointment after wearing the patches for one month. Patient verbalized understanding. [facility] Fax successful Kerry Dueñas RN Telephone Encounter - Kerry Dueñas RN - 02/11/2017 11:37 AM CDT Message routed to PCP to advise Kerry Dueñas RN Telephone Encounter - Shira Bustos - 02/11/2017 11:33 AM CDT [facility] Family Medicine phone call message- medication clarification/question: Full Medication Name: testosterone cypionate (DEPOTESTOTERONE) 200 MG/ML injection Dose: Sig: Inject0.3 mLs (60 mg) into the muscle once a week Question: Patient would like to know if they can change from medication above to Androderm. States shots hurt leg and that scare tissue may be developing in that area. Pharmacy confirmed as [facility] - [place], [place] - [address]: Yes OK to leave a message on voice mail? Yes Primary language: German Panel Monitor needed? No Call taken on February 11, 2017 at 11:33 AM by Shira Bustos documented in this encounter [...] documented as of this encounter Care Teams Motor Coach Supervisor Relationship Specialty Start Date End Date Miguelina Wise DO PCP - General Student in organized 12/13/16 01/11/19 [facility] education/training program Bella Sears MD General Surgery 11/28/14 Tana Peña MD MD Plastic Surgery 10/30/[address] [place] [address] Sofiya Keenan MD MD assembler sandal parts 01/11/[address] [place] [address] Debby Suggs, SKILLED LABORER SKILLED LABORER Plastic Surgery 11/26/16 documented as of this encounter
--- OUTSIDE RECORDS SUMMARY | 2022-04-12 08:19 | XMS_ITS | Encounter Summary ---
:1995 Author Organization [place] Address [address] [place] [address]. [place] [address] Care Team Providers Name Role Phone Bella Sears MD Unavailable Tana Peña MD Unavailable Sofiya Keenan MD Unavailable Miguelina Wise DO Primary Care Provider [phone] Debby Suggs LPN Unavailable Unavailable Reason for Referral Consultation - Closed Specialty Diagnoses / Procedures Referred By Contact Refer red To Contact Diagnoses Gender dysphoria in adult Zz Sy [facility] Med [facility] [address], [address] [place], [place] [address] Referral ID Status Reason Start Date Expiration Date Visits Requ ested Visits Authorized [id number] Closed 02/04/2017 02/04/2018 1 1 Reason for Visit Reason Onset Date Comments Schedule Surgery 02/04/2017 Referral for bottom surgery. Encounter Details Date Type Department Care Team Description 02/04/2017 Telephone Miguelina Savage Schedule Surgery Medicine Clinic DO Tana (Referral for [facility] [address], [facility] surgery.) [address] [place] [address] [place], [place] [phone] (Wo rk) Social History Tobacco Use Types Packs/Day Years Used Date Smoking Tobacco: Former Cigarettes 0.3 Quit : 09/14/2016 Alcohol Use Standard Drinks/Week Comments Yes 0 (1 standard drink = 0.6 oz pure alcoho l) rarely Sex Assigned at Date Recorded Female 03/20/2020 2:05 PM CDT documented as of this encounter Miscellaneous Notes Telephone Encounter - Lily Núñez - 02/12/2017 3:05 PM CDT Called patient to follow up as no STONE has been received. Explained to patient how to print STONE off on-line. Patient will either do this and fax it to us or will stop in the clinic to fill one out. Telephone Encounter - Kerry Dueñas RN - 02/04/2017 2:39 PM CDT RN called patient to relay that referal has been placed. Patient asked if all his records could be sent to Dr. Ch. Per chart review, no STONE for Dr. Alley Thomas's office. Message routed to HIM pool to obtain STONE and send records Kerry Dueñas RN Telephone Encounter - Miguelina Garcia MD - 02/04/2017 2:36 PM CDT Placed external referral to Plastic surgery for bottom surgery for Dr. Alley Ch. Plase call patient and let them know. Thanks, Miguelina Garcia DO [facility] Family Medicine PGY2 Telephone Encounter - Kerry Dueñas RN - 02/04/2017 11:16 AM CDT Message routed to PCP to place order for referral if appropriate. eKrry Dueñas RN Telephone Encounter - Janet Eddy CMA - 02/04/2017 11:13 AM CDT [facility] Family Medicine phone call message - order or referral request for patient: Order or referral being requested: referral for bottom surgery Additional Comments: Please call the patient when the referral is in the chart. They are wanting to schedule with Dr Alley Ch. Please call the patient; OK to leave a message on voice mail? Yes Primary language: Persian Furnace Charging Machine Operator needed? 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 Scheduled Referrals Name Type Priority Associated Diagnoses Order S chedule PLASTIC SURGERY Referral Routine Gender dysphoria in Order ed: 02/04/2017 REFERRAL - EXTERNAL adult documented as of this encounter Visit Diagnoses Diagnosis Gender dysphoria in adult - Primary documented in this encounter Additional Health Concerns Assessment Noted Time PHQ-9 Depression Total Score: 0 01/11/2017 7:28 AM CDT documented as of this encounter Care Teams Fitter Tacker Relationship Specialty Start Date End Date Miguelina Wise DO PCP - General Student in [facility] 12/13/16 01/11/19 health care education/training program Bella Sears MD General Surgery 11/28/14 Tana Peña MD MD Plastic Surgery 10/30/[address] [place] [address] Sofiya Keenan MD MD chemical test engineer 01/11/[address] [place] [address] Debby Suggs, VOCATIONAL CHILDCARE TEACHER VOCATIONAL CHILDCARE TEACHER Plastic Surgery 11/26/16 documented as of this encounter
--- OUTSIDE RECORDS SUMMARY | 2022-04-12 08:19 | XMS_ITS | Encounter Summary ---
:1995 Author Organization [place] Address [address] [place] [address] Care Team Providers Name Role Phone Bella Sears MD Unavailable Tana Peña MD Unavailable Sofiya Keenan MD Unavailable Carrie Tinsley MD Primary Care Provider [phone] Debby Suggs PERSONNEL ARBITRATOR Unavailable Unavailable Reason for Visit Reason Comments Surgical Followup 1 week post op Encounter Details Date Type Department Care Team Description 12/03/2016 [facility] Tana Peña S/Manish b ilateral Reconstructive Surge cecilia Hollingsworth MD mastectomy [address] [facility] [address] [facility] 4th Floor [facility] [address] [place] [address] [phone] Social History Tobacco Use Types Packs/Day Years Used Date Smoking Tobacco: Former Cigarettes 0.3 Quit : 09/14/2016 Alcohol Use Standard Drinks/Week Comments Yes 0 (1 standard drink = 0.6 oz pure alcoho l) rarely Sex Assigned at Date Recorded Female 03/20/2020 2:05 PM CDT documented as of this encounter Last Filed Vital Signs Vital Sign Reading Time Taken Comments Blood Pressure 125/79 12/03/2016 10:28 AM CDT Pulse 101 12/03/2016 10:28 AM CDT Temperature - - Respiratory Rate - - Oxygen Saturation 98% 12/03/2016 10:28 AM CDT Inhaled Oxygen Concentration - - Weight 65.4 kg (144 lb 1.6 oz) 12/03/2016 10:28 AM CDT Height 162.6 cm (5' 4) 12/03/2016 10:28 AM CDT Body Mass Index 24.73 12/03/2016 10:28 AM CDT documented in this encounter Patient Instructions Patient InstructionsDebby Suggs, PERSONNEL ARBITRATOR - 12/03/2016 10:30 AM CDT Post Transgender Mastectomy Instructions ??? May shower with water spray to your back for the first week. ??? Change dressing after showering or once daily. Care of your new nipples: 1. Carefully remove the old dressing making sure it???s not sticking to or lifting up the grafts. (if you feel it is sticking you can get it slightly damp by spraying the microklenz on the gauze to help it lift up). 2. Liberally spray a 4x4 gauze with microklenz spray then gently pat nipples with the wet gauze and allow to air dry. Do Not Rub! 3. Cut a piece of adaptic (curity non adherent or Vaseline coated dressing) into 4 pieces. (rememberto save the leftover 2 pieces in a ziplock bag). 4. Place one piece of the cut adaptic over each nipple. 5. Fold a 2x2 gauze in half and place on top of the adaptic. 6. Carefully place the tegaderm protective cover over the top. 7. Change the dressing for the next 7 days. 8. Dani wrap for the next 7 days as well. (this is to help with any swelling). You can add an extra 3 more days of dressing changes if you choose but you only need to cover the nipples for 7 days. The glue strip over your incision will start to peel up and fall off after about 2 weeks but if after 3 weeks the glue strip is still in place you may need to help it come off in the shower. Post Surgery Nipple FAQ???s 1) Once I'm no longer using nipple dressings or the Dani wrap, do I just not put anything on my nipples? No you don't have to. Remember it is ok if each side is behaving differently in healing. Should I be moisturizing them with anything, or is it better not to? Doesn't matter but you certainly can. 2) When can I let the spray from my shower head hit my chest directly? When you are done with the nipple dressings you may shower like you normally do And should I be washing my chest with soap, or just rinsing it? You may wash with soap but remember soap can dry the skin and we don???t recommend daily soap for your skin except for critical areas. You may wash with soap but treat the nipples gently, so no washcloth or anything else rough for 8 weeks 3) When can I start wearing shirts that box puller my head instead of buttoning/zipping in the front?Whenever it's is not sore to do so, probably within 3-4 weeks. 4) I forget what you said about how much I can lift when. 5 pound lifting restriction for 3-4 weeks.Let your body be your guide, increase in increments. If frequent 50 pound lifting is typical, you can resume this again at 8 weeks from surgery 5) When can I start reaching my arms over my head? 2-3 weeks, gently 6) When can I start swimming again? 6-8 weeks 7) I've been sleeping on my back, but I'm wondering when it's okay to sleep on my side. 3-4 weeks astolerated 8) When can I start to massage my scars? Don???t start until at least 3 weeks post op but then you can start gently massaging your scars whenever you like 9) What will reduce the scar? Scars will lighten with time, approximately in one year. Sun exposure however will darken them so if you are concerned use sunscreen on the scars. Other scar reducing products are unproven but okay to try if you want. Scarring depends on genetics, tension on the tissues during activities. There are various options none proven and none covered by insurance. Silicone strips - oils - vitamin E - Mederma - Frankincense, etc. 10) When are the nipple done sloughing? Old nipple skin will peel off when new graft underneath has healed usually 2-3 weeks post op. 11) What happens if there is drainage? Keep clean and dry cover with gauze and bandaid. If the nipples becomes very red and warm call our office 12) You can resume normal activities at 6-8 weeks. If an activity causes pain don't do it and wait afew days before trying again. Let your body be your guide, increase activities in increments. Always call the nurse at [phone] or [phone] if you are concerned. documented in this encounter Progress Notes Tana Peña MD - 12/03/2016 10:30 AM CDT PLASTICS POSTOP This is a 21-year-old trans male on the autism spectrum who is here today with his mom for postop followup. He had bilateral subcu mastectomies with nipple grafts last Friday and actually did quite well at home. It sounds like he had a lot of help from his neighbor, who is a nurse. Since his familyhas a history of PEs, we had put him on Lovenox for 5 days postop. Also, after surgery, his mother was having significant respiratory issues in the waiting room, and we sent her to the emergency room to be evaluated since she has a history of PEs as well, and she was found to have new emboli and was actually admitted to hospital for several days for treatment, so it sounds like at least a few days ofhis care were done by his other family members and his neighbor. He really did not have much problemwith regard to pain other than some soreness, particularly from his ADALBERTO sites. He denied any nausea or vomiting, but had some itching due to his sensitivity from his autism. He did also have some constipation, but that has since resolved. His shots went well as well. JPs were putting out minimal, although there were some clots in both sides. These were removed today, and there was a little bit more drainage after the removal on the left side. He has evidence of resolving ecchymosis along both inframammary fold incisions medially with mild edema, but otherwise he has good symmetry, good contour, and his nipple grafts are showing 100% take. The drains were removed without difficulty as were the On-Q catheters, which he seems to think may have helped with his pain. The only medication he is asking for is a refill on his hydroxyzine. He was educated and given instructions and supplies to continue to do nipple graft dressings for the next week while they are maturing. He was asked to wear his Dani wrap until Friday to make sure that what little drainage there is is being absorbed. He knows to continue his limitations postop for another 2-3 weeks, and we will see him back in 2 months. If he goes backto work, he will need to refrain from heavy lifting and excessive arm use. Photos were taken with verbal consent today. I think he has a fairly symmetrical result. I think he likes the result, too, after looking in the mirror. Any other problems or concerns prior to his next followup, he can contact our office. documented in this encounter Nursing Notes Debby Suggs LPN - 12/03/2016 10:30 AM CDT Chief Complaint Patient presents with ??? Surgical Followup 1 week post op Vitals: 12/03/16 1028 BP: 125/79 BP Location: Left arm Patient Position: Chair Cuff Size: Adult Regular Pulse: 101 SpO2: 98% Weight: 144 lb 1.6 oz Height: 5' 4 Body mass index is 24.73 kg/(m^2). 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 [address] [place] [address] Bella Sears MD General Surgery 11/28/14 Tana Peña MD MD Plastic Surgery 10/30/[address] [place] [address] Sofiya Keenan MD MD metal coater operator 01/11/[address] [place] [address] Debby Suggs, PERSONNEL ARBITRATOR PERSONNEL ARBITRATOR Plastic Surgery 11/26/16 documented as of this encounter
--- OUTSIDE RECORDS SUMMARY | 2022-04-12 08:19 | XMS_ITS | Encounter Summary ---
:1995 Author Organization [facility] Address [address] [place] [address]. [place] [address] Care Team Providers Name Role Phone Bella Sears MD Unavailable Tana Peña MD Unavailable Sofiya Keenan MD Unavailable Miguelina Wise DO Primary Care Provider [phone] Debby Suggs LPN Unavailable Unavailable Reason for Visit Reason Onset Date Comments Refill Request 01/27/2017 Calcitrate 950mg Encounter Details Date Type Department Care Team Description 01/27/2017 Telephone [facility] Miguelina Wise Refill Re [facility] DO Tana (Calcitrate 950mg ) [address] [place] [address] [place], [place] [id number] 7 [place], [place] [phone] (Wo rk) Social History Tobacco Use Types Packs/Day Years Used Date Smoking Tobacco: Former Cigarettes 0.3 Quit : 09/14/2016 Alcohol Use Standard Drinks/Week Comments Yes 0 (1 standard drink = 0.6 oz pure alcoho l) rarely Sex Assigned at Date Recorded Female 03/20/2020 2:05 PM CDT documented as of this encounter Miscellaneous Notes Telephone Encounter - Angela Lombardo CMA - 01/27/2017 11:04 AM CDT Request for medication refill: [facility] is requesting Calcitrate 950mg. Please reorder thisdosage. Date of last visit at clinic: 01-10-17 Please complete refill if appropriate and CLOSE ENCOUNTER. Closing the encounter signifies the refill is complete. If refill has been denied, please complete the smart phrase .smirefuse and route it to the P [facility] TELECOMMUNICATION LINES REPAIRER pool to inform the patient and the pharmacy. Angela Lombardo 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 documented as of this encounter Visit Diagnoses Diagnosis Healthcare maintenance - Primary Routine general medical examination at a health care facility documented in this encounter Additional Health Concerns Assessment Noted Time PHQ-9 Depression Total Score: 0 01/11/2017 7:28 AM CDT documented as of this encounter Care Teams Commissioning Manager Relationship Specialty Start Date End Date Miguelina Wise DO PCP - General Student in [employer] [employer] [facility] 12/13/16 01/11/19 health care education/training program Bella Sears MD General Surgery 11/28/14 Tana Peña MD MD Plastic Surgery 10/30/15 420 [facility] 195 [place] [address] Sofiya Keenan MD MD director day care center 01/11/16 [facility] [address] [place] [address] Debby Suggs LPN MATERIAL STOCKKEEPER YARD Plastic Surgery 11/26/16 documented as of this encounter
--- OUTSIDE RECORDS SUMMARY | 2022-04-12 08:19 | XMS_ITS | Encounter Summary ---
:1995 Author Organization [facility] Address [address] [place] [address]. [place] [address] Care Team Providers Name Role Phone Bella Sears MD Unavailable Tana Peña MD Unavailable Sofiya Keenan MD Unavailable Miguelina Wise DO Primary Care Provider [phone] Debby Suggs LPN Unavailable Unavailable Encounter Details Date Type Department Care Team Description 2017 Orders Only [facility] Gen josh dysphoria in Clinic adolescent and adult [address] [place] [address], [address] [place], [place] [address] Social History Tobacco Use Types Packs/Day [...] Name Priority Date/Time Associated Diagnosis Comme nts TESTOSTERONE TOTAL Routine 2017 9:48 AM Gender dysphoria in Results for this CLIENT SERVICE EXECUTIVE adolescent and adult procedu re are in the results section. documented in this encounter Results Testosterone total (2017 9:48 AM CLIENT SERVICE EXECUTIVE) Analysis Performed At [facility] Time Signature Testosterone 552 240 - 863 05/11/2017 UNIVERSITY Total ng/dL 9:24 AM [facility] Comment: This test was developed and its performa nce characteristics determined by the [facility], ??Special Chemistry Laboratory. It has not been [...] Volume Laterality Blood specimen VENOUS BLOOD / 2017 9:48 AM 05/07 (specimen) Unknown CLIENT SERVICE EXECUTIVE 11:56 AM CLIENT SERVICE EXECUTIVE Skip Bianchi MD LAB - BLOOD ORDERABLES Performing Organization Address City/State/ZIP Code Phon e Number [facility] [address] documented in this encounter Visit Diagnoses Diagnosis Gender dysphoria in adolescent and adult documented in this encounter Additional Health Concerns Assessment Noted Time PHQ-9 Depression Total Score: 0 01/11/2017 7:28 AM CDT documented as of this encounter Care Teams Application Support Intern Relationship Specialty Start Date End Date Miguelina Wise DO PCP - General Student in [facility] 12/13/16 01/11/19 health care education/training program Bella Sears MD General Surgery 11/28/14 Tana Peña MD MD Plastic Surgery 10/30/15 420 [facility] [address] [place] [address] Sofiya Keenan MD MD histotechnician 01/11/[address] [place] [address] Debby Suggs, NURSE CONSULTANT NURSE CONSULTANT Plastic Surgery 11/26/16 documented as of this encounter
--- OUTSIDE RECORDS SUMMARY | 2022-04-12 08:19 | XMS_ITS | Encounter Summary ---
:1995 Author Organization [facility] Address [address] [place] [address]. [place] [address] Care Team Providers Name Role Phone Bella Sears MD Unavailable Tana Peña MD Unavailable Sofiya Keenan MD Unavailable Miguelina Wise DO Primary Care Provider [phone] Debby Suggs LANDFILL GAS TECHNICIAN Unavailable Unavailable Reason for Visit Reason Onset Date Comments Patient Request for Note/Letter 04/24/2017 [facility] Encounter Details Date Type Department Care Team Description 04/24/2017 Telephone [facility] Miguelina Wise Patient R [facility] Clinic DO Tana Note/Letter ([address]) [address] [facility] [place] [address] 7 [place], [place] [phone] (Wo rk) Social History Tobacco Use Types Packs/Day Years Used Date Smoking Tobacco: Former Cigarettes 0.3 Quit : 09/14/2016 Alcohol Use Standard Drinks/Week Comments Yes 0 (1 standard drink = 0.6 oz pure alcoho l) rarely Sex Assigned at Date Recorded Female 03/20/2020 2:05 PM CDT documented as of this encounter Miscellaneous Notes Telephone Encounter - Valery Lemos MA - 04/25/2017 4:55 PM CST Letter faxed. HER SCRAPER Telephone Encounter - Miguelina Garcia MD - 04/24/2017 11:06 PM LEATHER SCRAPER Routed completed letter to help desk technician to print and fax to attention below and a copy for patient to garbage pick up worker. Miguelina Garcia DO [facility] Medicine PGY2 HER SCRAPER Telephone Encounter - Ericka Reese RN - 04/24/2017 1:05 PM CST Message routed to PCP to wrote requested letter if appropriate. Ericka Reese RN HER SCRAPER Telephone Encounter - Bonita Parish CMA - 04/24/2017 12:44 PM CST [facility] phone call message- general phone call: Reason for call: Patient is calling because they need a letter of recommendation for bottom surgery.It should be faxed to Attn: Alley Cordero at [phone]. Patient would also like a copy to garbage pick up worker at the help desk technician. Return call needed: Yes OK to leave a message on voice mail? Yes Primary language: [place] Needle Felt Making Machine Operator needed? No Call taken on April 24, 2017 at 12:44 PM by Bonita Parish HER SCRAPER documented in this encounter Plan of Treatment [...] documented as of this encounter Care Teams Ground Nuclear Weapons Assembly Officer Relationship Specialty Start Date End Date Miguelina Wise DO PCP - General Student in organized 12/13/16 01/11/19 health care education/training program Bella Sears MD General Surgery 11/28/14 Tana Pñea MD MD Plastic Surgery 10/30/15 [address] [facility] [address] [place] [address] Sofiya Keenan MD MD incinerator attendant 01/11/[address] [facility] [address] [place] [address] Debby Suggs LPN LANDFILL GAS TECHNICIAN Plastic Surgery 11/26/16 documented as of this encounter
--- OUTSIDE RECORDS SUMMARY | 2022-04-12 08:19 | XMS_ITS | Encounter Summary ---
:1995 Author Organization [facility] Address [address] [place] [address] Care Team Providers Name Role Phone Bella Sears MD Unavailable Tana Peña MD Unavailable Sofiya Keenan MD Unavailable Miguelina Wise DO Primary Care Provider [phone] Debby Suggs LPN Unavailable Unavailable Aung Salinas MD Unavailable Dana Jane RN Unavailable Reason for Visit Reason Comments Consult Discuss SPT, currently havin g pain Encounter Details Date Type Department Care Team Description 05/04/2018 Office Visit [facility] Urology and Bonita Guzmán for care or replacement of suprapubic tube (H) (Primary Dx); Inst for Prostate and KERRY Ferrer Pain with urination; Urologic Cancers [facility] Gender identity disorder [address] [place], [place] [address] [place] [address] [phone] (Work) [phone] Social History Tobacco Use Types Packs/Day Years [...] Sign Reading Time Taken Comments Blood Pressure 129/96 05/04/2018 3:14 PM BUDGET COUNSELOR Pulse 90 05/04/2018 3:14 PM BUDGET COUNSELOR Temperature - - Respiratory Rate - - Oxygen Saturation - - Inhaled Oxygen Concentration - - Weight 80.8 kg (178 lb 1.6 oz) 05/04/2018 3:14 PM BUDGET COUNSELOR Height 162.6 cm (5' 4) 05/04/2018 3:14 PM BUDGET COUNSELOR Body Mass Index 30.57 05/04/2018 3:14 PM BUDGET COUNSELOR documented in this encounter Patient Instructions Patient InstructionsStCorrine thomas LPN - 05/04/2018 3:30 PM CST Reschedule appointment with Dr. Salinas for earlier this year (any open slots). Your catheter was removed today. It was a pleasure meeting with you [...] leaving completely satisfied with your care experience. ET COUNSELOR documented in this encounter Progress Notes Bonita Guzmán PA-C - 05/04/2018 3:30 PM CST It was my pleasure to meet Mr. Pablo Chakraborty, a 22 year old female to male who presents via self-referral for chief complaint: Consult (Discuss SPT, currently having pain) HPI: Mr. Pablo Chakraborty is a 22 year old who is s/p female to male gender confirmation surgery with creation of neophallus and neoscrotum in [place] in October 2017. No outside records available, but patient reports that he has had a complicated post-operative course. He states that he has had at least 12 surgeries on his neophallus in the past 7 months, including at least 5 surgeries to attempt to reconstruct his urethra using grafts from his right thigh and buccal mucosa. Most recently, the patient reports that his urethral opening closed off and he is now s/p creation of a perineal urethrostomy3.5-4 weeks ago. He has an indwelling suprapubic tube since November 07, 2017 (time of initial surgery) which has been changed monthly. He was told by his surgical team in [place] that he should see someonein [place] to have this removed. He reports that he is voiding well through his PU without hesitancy, intermittency, needing to strain to void, or sense of incomplete bladder emptying. No incontinence per PU between voids or around the SP tube. Denies dysuria, hematuria, pyuria, discharge, fevers,chills. Surgical incisions are healing without bleeding or purulent discharge. He does complain of severe pain in the area of the PU as well as mild pain around the SP tube site. He has been taking oxycodone with APAP for this but it is not helpful. He states that the pain is worse when he walks or moves around. He is also currently taking cephalexin, prescribed by outside PCP for a UTI. He is very upset about the current state of his neophallus and complications from surgery. He is nothappy with his PU. He would like his SP tube removed. Has an appointment with Dr. Salinas scheduled for 05/27/18 for further consultation. Past Medical History: Diagnosis Date ??? Allergic rhinitis ??? Asperger syndrome ??? Chronic migraine ??? Concussion ??? Umevik-gq-yduj transgender person ??? Herpes genitalia ??? Sleep [...] Location: [facility] OR ??? wisdom teeth removed FAMILY HISTORY: Denies family history of urologic cancer. SOCIAL HISTORY: reports that he quit smoking about 19 months ago. His smoking use included Cigarettes. He smoked 0.25 packs per day. He has never used smokeless tobacco. Current Outpatient Prescriptions Medication Sig Dispense Refill ??? ALBUTEROL IN Inhale 2 puffs into the lungs ??? HYDROcodone-acetaminophen (NORCO) 10-325 MG per tablet Take 1 tablet by mouth every 4 hours as needed for severe pain ??? PARoxetine (PAXIL) 20 MG tablet Take 20 mg by mouth daily 5 ??? acetaminophen (TYLENOL) 325 MG tablet Take 2 tablets (650 mg) by mouth every 4 hours as needed for other (surgical pain) (Patient not taking: Reported on 05/04/2018) 100 tablet 1 ??? acyclovir (ZOVIRAX) 5 % ointment Apply topically 6 times daily 15 g 3 ??? albuterol (PROAIR HFA/PROVENTIL HFA/VENTOLIN HFA) 108 (90 BASE) MCG/ACT Inhaler Inhale 2 puffs into the lungs ??? Calcium Citrate 200 MG TABS Take 1 tablet by mouth daily 120 tablet 11 ??? Cholecalciferol (VITAMIN D) 2000 UNITS tablet Take 2,000 Units by mouth daily 100 tablet 11 ??? FLUTICASONE PROPIONATE, NASAL, NA [place] 1 spray in nostril 2 times daily ??? insulin syringe 31G X 5/16 0.5 ML MISC 1 applicator once a week 100 each 3 ??? montelukast (SINGULAIR) 10 MG tablet Take 10 mg by mouth At Bedtime ??? Sharps Container MISC Use each week with sharps 1 each 1 ??? Syringe/Needle, Disp, 18G X 1 1 ML MISC 1 each every 7 days 100 each 6 ??? Syringe/Needle, Disp, 22G X 1-1/2 1 ML MISC 1 each every 7 days 100 each 6 ??? TEMAZEPAM PO Take 15 mg by mouth nightly as needed for sleep 1-2 tabs ??? testosterone cypionate (DEPOTESTOTERONE) 200 MG/ML injection Inject 0.3 mLs (60 mg) into the muscle once a week 6 mL 5 ??? topiramate (TOPAMAX) 50 MG tablet Take 50 mg by mouth At Bedtime ??? valACYclovir (VALTREX) 500 MG tablet Take 1 tablet by mouth ALLERGIES: Review of patient's allergies indicates no known allergies. REVIEW OF SYSTEMS: A 14 point review of systems was obtained and was positive for groin pain and otherwise negative aside from that mentioned above in the HPI. GENERAL PHYSICAL EXAM: Vitals: BP (!) 129/96 Pulse 90 Ht 1.626 m (5' 4) Wt 80.8 kg (178 lb 1.6 oz) BMI 30.57 kg/m2 Body mass index is 30.57 kg/(m^2). GENERAL: Well groomed, well developed, well nourished male in NAD. HEAD: Normocephalic, atraumatic. RESPIRATORY: No increased respiratory effort. GI: Soft, NT, ND, no palpable masses. Few well-healed abdominal scars. Minimal ecchymosis in RLQ andLLQ. SP tube cystostomy site in RLQ appears healthy and intact without surrounding erythema, tenderness, discharge, or bleeding. SPT is capped. MS: Full ROM in extremities, gait normal, normal muscle tone SKIN: Warm to touch, dry. NEURO: Alert and oriented x 3. PSYCH: Normal mood and affect, pleasant and agreeable during interview and exam. : Neophallus with a whitish appearance with no obvious urethral meatus. There is what looks like an ~8 cm skin bridge on the ventral surface. Incisions just inferior to the neophallus are c/d/i with sutures dissolving. Neoscrotum is non-tender, normal to palpation without induration or mass. Perineal urethrostomy site appears clean and healthy with dissolving sutures. Mildly tender to palpation circumferentially. PVR: Residual urine by ultrasound was 97 ml (at least 1 hour last void). ASSESSMENT: 22 year old who is s/p female to male gender confirmation surgery with creation of neophallus and neoscrotum in [place] in October 2017 with post-operative complications including collapse of new penile urethra s/p multiple unsuccessful attempts at reconstruction, now s/p perineal urethrostomy 1 month ago. Still has SPT which he would like removed. Also with significant pain around the PU site as well asfrustration with his surgical outcome. PLAN: -PVR in clinic today was 97 mL 1 hour last void (patient unable to void for uroflow as he had no urge). -Discussed that we could remove his SPT per his wishes, but that after consulting with Dr. Salinas, he may recommend to have it replaced in the future should further surgical intervention be pursued. Also discussed with Dr. Weeks who agrees that decision is up to patient with the understanding that it may need to be replaced in the future. -Patient understood possible need for SPT in the future, but requested removal today. -SPT removed uneventfully. No abx prophylaxis as he is currently taking Keflex for a UTI. -Continue normal post-operative cares/restrictions as recommended by his surgeon. -Will trial pyridium to see if this offers any relief from dysuria. -Follow up with Dr. Salinas on 05/20/18 for additional consultation and recommendations. 30 minutes spent with the patient, >50% in counseling and coordination of care. Bonita Guzmán PA-C Department of Urology ET COUNSELOR documented in this encounter Nursing Notes Corrine Morris LPN - 05/04/2018 3:30 PM CST Chief Complaint Patient presents with ??? Consult Discuss SPT, currently having pain Blood pressure (!) 129/96, pulse 90, height 1.626 m (5' 4), weight 80.8 kg (178 lb 1.6 oz). Body mass index is 30.57 kg/(m^2). Patient Active Problem List Diagnosis ??? Bipolar affective disorder (H) ??? HSV (herpes simplex virus) infection ??? Gender dysphoria ??? History of psychiatric hospitalization ??? Personal history of tobacco use, presenting hazards to health ??? Acne vulgaris ??? Migraine headache ??? Mixed hyperlipidemia ??? Autism ??? S/P hysterectomy ??? Status post SHADY-BSO ??? Hepatic steatosis No Known Allergies Current Outpatient Prescriptions Medication Sig Dispense Refill ??? ALBUTEROL IN Inhale 2 puffs into the lungs ??? HYDROcodone-acetaminophen (NORCO) 10-325 MG per tablet Take 1 tablet by mouth every 4 hours as needed for severe pain ??? PARoxetine (PAXIL) 20 MG tablet Take 20 mg by mouth daily 5 ??? acetaminophen (TYLENOL) 325 MG tablet Take 2 tablets (650 mg) by mouth every 4 hours as needed for other (surgical pain) (Patient not taking: Reported on 05/04/2018) 100 tablet 1 ??? acyclovir (ZOVIRAX) 5 % ointment Apply topically 6 times daily 15 g 3 ??? albuterol (PROAIR HFA/PROVENTIL HFA/VENTOLIN HFA) 108 (90 BASE) MCG/ACT Inhaler Inhale 2 puffs into the lungs ??? Calcium Citrate 200 MG TABS Take 1 tablet by mouth daily 120 tablet 11 ??? Cholecalciferol (VITAMIN D) 2000 UNITS tablet Take 2,000 Units by mouth daily 100 tablet 11 ??? FLUTICASONE PROPIONATE, NASAL, NA [place] 1 spray in nostril 2 times daily ??? insulin syringe 31G X 5/16 0.5 ML MISC 1 applicator once a week 100 each 3 ??? montelukast (SINGULAIR) 10 MG tablet Take 10 mg by mouth At Bedtime ??? Sharps Container MISC Use each week with sharps 1 each 1 ??? Syringe/Needle, Disp, 18G X 1 1 ML MISC 1 each every 7 days 100 each 6 ??? Syringe/Needle, Disp, 22G X 1-1/2 1 ML MISC 1 each every 7 days 100 each 6 ??? TEMAZEPAM PO Take 15 mg by mouth nightly as needed for sleep 1-2 tabs ??? testosterone cypionate (DEPOTESTOTERONE) 200 MG/ML injection Inject 0.3 mLs (60 mg) into the muscle once a week 6 mL 5 ??? topiramate (TOPAMAX) 50 MG tablet Take 50 mg by mouth At Bedtime ??? valACYclovir (VALTREX) 500 MG tablet Take 1 tablet by mouth Social History Substance Use Topics ??? Smoking status: Former Smoker Packs/day: 0.25 Types: Cigarettes Quit date: 09/14/2016 ??? Smokeless tobacco: Never Used ??? Alcohol use Yes Comment: rarely Corrine Morris LPN 05/04/2018 3:16 PM ET COUNSELOR Corrine Morris LPN - 05/04/2018 3:30 PM CST Pablo Chakraborty comes into clinic today at the request of Bonita Guzmán PA-C for catheter removal. Removal: 18 Fr straight tipped latex wharton catheter removed from suprapubic meatus without difficulty. One Cipro 500 mg given per protocol: No, patient is currently taking antibiotics. Patient did tolerate procedure well. Patient instructed as to where to call or go for pain, fever, leakage, or decreased urine flow. Corrine Morris LPN 05/04/2018 3:54 PM ET COUNSELOR 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 documented as of this encounter Procedures Procedure Name Priority Date/Time Associated Diagnosis Comme nts HC MEASURE POST-VOID Routine 05/04/2018 3:57 PM BUDGET COUNSELOR Encounter for care or RESIDUAL URINE/BLADDER replacement of CAPACITY, US suprapubic tube (H) NON-IMAGING documented in this encounter Visit Diagnoses Diagnosis Encounter for care or replacement of sup rapubic tube (H) - Primary Attention to cystostomy Pain with urination Gender identity disorder Gender identity disorder in children documented in this encounter Additional Health Concerns Assessment Noted Time PHQ-9 Depression Total Score: 0 01/11/2017 7:28 AM CDT documented as of this encounter Care Teams Deputy Brand Inspector Relationship Specialty Start Date End Date Miguelina Wise, PCP - General Student in [employer] [facility] 12/13/16 01/11/19 health care education/training program Bella Sears MD General Surgery 11/28/14 Tana Peña MD Plastic Surgery 10/30/[address] [place] [address] [address] [place], [place] [phone] Sofiya Keenan MD MD strategic sourcing manager 01/11/[address] [facility] [address] [place], [place] [phone] Debby Suggs LPN LPN Plastic Surgery 11/26/16 Aung Salinas MD MD Urology 05/04/18 [address] [place], [place] [phone] Dana Jane, CASH Registered Nurse Urology 05/04/18 01/15/22 documented as of this encounter
--- OUTSIDE RECORDS SUMMARY | 2022-04-12 08:19 | XMS_ITS | Encounter Summary ---
:1995 Author Organization [facility] Address [address] [place] [address] Care Team Providers Name Role Phone Bella Sears MD Unavailable Tana Peña MD Unavailable Sofiya Keenan MD Unavailable Miguelina Wise DO Primary Care Provider [phone] Debby Suggs LPN Unavailable Unavailable Aung Salinas MD Unavailable Dana Jane RN Unavailable Reason for Visit Reason Onset Date Comments Pre Visit Planning - Done 05/04/2018 Encounter Details Date Type Department Care Team Description 05/04/2018 PRE VISIT [facility] Urology and Aung Salinas Pre Visit Planning - Inst for Prostate and MD Done Urologic Cancers [address] [place] [address] [place] [address] [phone] (Work) [phone] Social History Tobacco Use Types Packs/Day Years Used Date Smoking Tobacco: Former Cigarettes 0.3 Quit : 09/14/2016 Smokeless Tobacco: Never Alcohol Use Standard Drinks/Week Comments Yes 0 (1 standard drink = 0.6 oz pure alcoho l) rarely Sex Assigned at Date Recorded Female 03/20/2020 2:05 PM CDT documented as of this encounter Miscellaneous Notes Telephone Encounter - Magdalene Sue - 05/04/2018 6:30 AM CST Images from the original note were not included. MEDICAL RECORDS REQUEST [facility] [address] [place] [address] PHONE: [phone] FUTURE VISIT INFORMATION Pablo Chakraborty, : 1995 scheduled for future visit at [facility] APPOINTMENT INFORMATION: ?? Date: 05/27/2018 ?? Provider: Aung Salinas ?? Reason for Visit/Diagnosis: consult for spt removal REFERRAL INFORMATION: ?? Referring provider: Tana Peña ?? Specialty: MD ?? Referring providers clinic: Plastic ?? Clinic contact number: [phone]; RECORDS REQUESTED FOR VISIT NOTES STATUS/DETAILS OFFICE NOTE from referring provider yes OFFICE NOTE from other specialist yes DISCHARGE SUMMARY from hospital no DISCHARGE REPORT from the ER yes OPERATIVE REPORT yes MEDICATION LIST yes PRE-VISIT CHECKLIST Record collection complete Yes Appointment appropriately scheduled (right time/right provider) Yes MyChart activation Yes Questionnaire complete If no, please explain in process Completed by: Magdalene Sue WARE INTEGRATOR documented in this encounter Plan of Treatment [...] documented as of this encounter Care Teams Cloth Weigher Relationship Specialty Start Date End Date Miguelina Wise, PCP - General Student in organized 12/13/16 01/11/19 [facility] education/training program Bella Sears MD General Surgery 11/28/14 Tana Peña MD Plastic Surgery 10/30/[address] [place] [address] [address] [place] [address] Sofiya Keenan MD MD law reporter 01/11/[address] [facility] [address] [place], [place] [address] Debby Suggs, [employer]AL [employer]SPORT OPERATOR MILL AND [employer]AL TRANSPORT OPERATOR Plastic Surgery 11/26/16 Aung Salinas MD MD Urology 05/04/18 [address] [place] [address] Dana Jane RN Registered Nurse Urology 05/04/18 01/15/22 documented as of this encounter
--- OUTSIDE RECORDS SUMMARY | 2022-04-12 08:19 | XMS_ITS | Encounter Summary ---
:1995 Author Organization [facility] Address [address] [place] [address]. [place] [address] Care Team Providers Name Role Phone Bella Sears MD Unavailable Tana Peña MD Unavailable Sofiya Keenan MD Unavailable Miguelina Wise DO Primary Care Provider [phone] Debby Suggs BASEBALL CLUB MANAGER Unavailable Unavailable Reason for Visit Reason Onset Date Comments Refill Request 03/25/2017 Vit D Encounter Details Date Type Department Care Team Description 03/25/2017 Refill [facility] Family Medicine Miguelina Wise Refill Request (Vit D) [facility] DO Tana [address] [place] [address] [place] [address] [address] [place], [place] [phone] (Wo rk) Social History Tobacco Use Types Packs/Day Years Used Date Smoking Tobacco: Former Cigarettes 0.3 Quit : 09/14/2016 Alcohol Use Standard Drinks/Week Comments Yes 0 (1 standard drink = 0.6 oz pure alcoho l) rarely Sex Assigned at Date Recorded Female 03/20/2020 2:05 PM CDT documented as of this encounter Miscellaneous Notes Telephone Encounter - Talya Jimenes - 03/25/2017 10:53 AM CDT Request for medication refill: Date of last visit at clinic: 01/10/17 Please complete refill if appropriate and CLOSE ENCOUNTER. Closing the encounter signifies the refill is complete. If refill has been denied, please complete the smart phrase .smirefuse and route it to the [facility] OPERATIONS ARCHITECT pool to inform the patient and the pharmacy. Talya Jimenes 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 documented as of this encounter Visit Diagnoses Diagnosis Health care maintenance - Primary Unspecified general medical examination documented in this encounter Additional Health Concerns Assessment Noted Time PHQ-9 Depression Total Score: 0 01/11/2017 7:28 AM CDT documented as of this encounter Care Teams Rack Production Worker Relationship Specialty Start Date End Date Miguelina Wise DO PCP - General Student in [facility] 12/13/16 01/11/19 [facility] education/training program Bella Sears MD General Surgery 11/28/14 Tana Peña MD MD Plastic Surgery 10/30/[address] [facility] [address] [place] [address] Sofiya Keenan MD MD intake clinician 01/11/[address] [address] [place] [address] Debby Suggs, BASEBALL CLUB MANAGER BASEBALL CLUB MANAGER Plastic Surgery 11/26/16 documented as of this encounter
--- OUTSIDE RECORDS SUMMARY | 2022-04-12 08:20 | XMS_ITS | Encounter Summary ---
:1995 Author Organization [facility] Address [address] [place] [address]. [place] [address] Care Team Providers Name Role Phone Bella Sears MD Unavailable Tana Peña MD Unavailable Sofiya Keenan MD Unavailable Carrie Tinsley MD Primary Care Provider [phone] Encounter Details Date Type Department Care Team Description 08/12/2016 Orders Only General Surgery Tana Peña Gender dysphoria in [address] [facility] [address] MD [place] adolescent and adult [address]th [address] [place] [address] (Primary Dx) [place], [place] [id number] [place], [place] [phone] (Wo rk) Social History Tobacco Use Types Packs/Day Years Used Date Smoking Tobacco: Light Smoker Cigarettes 0.3 Alcohol Use Standard Drinks/Week Comments Yes 0 (1 standard drink = 0.6 oz pure alcoho l) rarely Sex Assigned at Date Recorded Female 03/20/2020 2:05 PM CDT documented as of this encounter Plan of Treatment Scheduled Orders Name Type Priority Associated Diagnoses Order S chedule FtM transgender top Procedures Routine Gender dysphoria in O rdered: 08/12/2016 preop adolescent and adult Scheduled Procedures Name Priority Associated Diagnoses Date/Time INSERTION, PENILE PROSTHESIS, Gender dys phoria INFLATABLE 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 documented as of this encounter Visit Diagnoses Diagnosis Gender dysphoria in adolescent and adult - Primary documented in this encounter Additional Health Concerns Assessment Noted Time PHQ-9 Depression Total Score: 19 01/16/2016 7:18 AM CD T documented as of this encounter Care Teams Solutions Sales Consultant Relationship Specialty Start Date End Date Carrie Tinsley MD PCP - General 04/23/16 12/12/16 [facility] [address] [place], [place] [id number] Bella Sears MD General Surgery 11/28/14 Tana Peña MD MD Plastic Surgery 10/30/15 [address] [facility] [address] [place] [address] Sofiya Keenan MD MD cattle dipper 01/11/16 [address] [facility] [address] [place] [address] documented as of this encounter
--- OUTSIDE RECORDS SUMMARY | 2022-04-12 08:20 | XMS_ITS | Encounter Summary ---
:1995 Author Organization [place] Address [facility] [place] [address] Care Team Providers Name Role Phone Bella Sears MD Unavailable Tana Peña MD Unavailable Abbi Cohen MD Unavailable Bella Sears MD Primary Care Provider Reason for Visit Auth/Cert Specialty Diagnoses / Procedures Referred By Contact Refer red To Contact Surgery Diagnoses Gender Dysphoria, Chronic Pain, Testosterone Exposure Ur Periop Procedures COMBINED HYSTERECTOMY TOTAL ABDOMINAL, SALPINGO-OOPHORECTOMY [address] [place] [address] Phone: Fax: Referral ID Status Reason Start Date Expiration Date Visits Requ ested Visits Authorized [id number] 1 1 Encounter Details Date Type Department Care Team Description 03/12/2016 Surgery Formerly [facility] Abbi Cohen, Total Abdominal PeriOp Services Hysterectomy, Bilateral [address] [facility] [address] [place] [address] [address] [place] [address] Surgery Details Date/Time Status Location OR Service Patient Case Case Traum a Class Class Type Case? 03/12/16 9:00 Posted UR OR UR OR Gynecology Surgery AM 01 Admit Panel 1 Procedure LRB Anes Op Region Wound Class Commen ts Total Abdominal Bilateral General Abdomen II-Clean Contaminate d Total Abdominal Hysterectomy, Hysterectom y, Bilateral Bilateral Salpingo-Oophorect Salpin go-Oophorect cheyrl cheryl Surgeon Surgeon Role Service Panel Abbi Cohen MD Primary Gynecology 1 Marce Mares MD Resident - Assisting 1 documented in this encounter Social History [...] Sign Reading Time Taken Comments Blood Pressure 121/70 03/14/2016 5:10 PM CDT Pulse 55 03/12/2016 1:30 PM CDT Temperature 36.7 ??C (98.1 ??F) 03/14/2016 5:10 PM CDT Respiratory Rate 16 03/14/2016 5:10 PM CDT Oxygen Saturation 99% 03/14/2016 5:10 PM CDT Inhaled Oxygen Concentration - - Weight 69.9 kg (154 lb 1.6 oz) 03/14/2016 6:13 AM CDT Height 162.6 cm (5' 4) 03/12/2016 6:26 AM CDT Body Mass Index 26.45 03/12/2016 6:26 AM CDT documented in this encounter Discharge Summaries Rachel Sexton MD - 03/14/2016 7:01 AM CDT [facility] Discharge Summary Jazzmine Chakraborty Age: [age] year old Date of : 1995 Date of Admission: 03/12/2016 Date of Discharge:: 03/14/2016 Admitting Physician: Abbi Cohen MD Discharge Physician: Rachel Sexton MD Home clinic: [facility] Admission Diagnoses: Chronic back pain Dyspareunia Gender dysphoria Discharge Diagnosis: Same s/p below procedure Procedures: Procedure(s): Total abdominal hysterectomy, bilateral salpingo-oophorectomy TAPs block Medications Prior to Admission: Prescriptions prior to admission Medication Sig Dispense Refill Last Dose ??? HYDROcodone-acetaminophen (NORCO) 5-325 MG per tablet Take 1 tablet by mouth every 6 hours as needed for moderate to severe pain 03/09/2016 ??? Calcium Citrate 200 MG TABS Take 1 tablet by mouth daily 120 tablet 11 03/11/2016 at 0900 ??? Cholecalciferol (VITAMIN D) 2000 UNITS tablet Take 2,000 Units by mouth daily 100 tablet 11 03/11/2016 at 0900 ??? clindamycin (CLEOCIN T) 1 % external solution Apply topically 2 times daily 60 mL 11 Past Month at Unknown time ??? hydrOXYzine (ATARAX) 25 MG tablet Take 1-2 tablets (25-50 mg) by mouth every 6 hours as needed for anxiety 60 tablet 1 Past Month at Unknown time ??? propranolol (INDERAL LA) 80 MG capsule Take 1 capsule (80 mg) by mouth daily 30 capsule 3 03/11/2016 at 0900 ??? tretinoin (RETIN-A) 0.025 % cream Spread a pea size amount into affected area topically at bedtime. Use sunscreen SPF>20. 45 g 11 Past Month at Unknown time ??? nicotine (NICODERM CQ) 7 MG/24HR patch 2h hr Place 1 patch onto the skin every 24 hours 30 patch3 More than a month at Unknown time ??? testosterone cypionate (DEPOTESTOTERONE CYPIONATE) 200 MG/ML injection Inject 0.4 mLs (80 mg) into the muscle once a week for 25 doses 10 mL 0 03/07/2016 ??? Syringe/Needle, Disp, 22G X 1-1/2 1 ML MISC 1 each every 7 days 20 each 6 Unknown at Unknown time ??? Syringe/Needle, Disp, 18G X 1 1 ML MISC 1 each every 7 days 20 each 6 Unknown at Unknown time ??? insulin syringe 31G X 5/16 0.5 ML MISC 1 applicator once a week 100 each 3 Unknown at Unknown time ??? Sharps Container MISC Use each week with sharps 1 each 1 Unknown at Unknown time ??? VALACYCLOVIR HCL PO Take 500 mg by mouth Unknown at Unknown time Discharge Medications: Current Discharge Medication List START taking these medications Details oxyCODONE (ROXICODONE) 5 MG immediate release tablet Take 1-2 tablets (5-10 mg) by mouth every 4 hours as needed for moderate to severe pain Qty: 30 tablet, Refills: 0 Associated Diagnoses: S/P hysterectomy acetaminophen (TYLENOL) 325 MG tablet Take 2 tablets (650 mg) by mouth every 4 hours as needed for other (surgical pain) Qty: 100 tablet, Refills: 1 Associated Diagnoses: S/P hysterectomy ibuprofen (ADVIL,MOTRIN) 600 MG tablet Take 1 tablet (600 mg) by mouth every 6 hours Qty: 60 tablet, Refills: 0 Associated Diagnoses: S/P hysterectomy senna-docusate (SENOKOT-S;PERICOLACE) 8.6-50 MG per tablet Take 1-2 tablets by mouth 2 times daily Qty: 100 tablet, Refills: 0 Associated Diagnoses: S/P hysterectomy polyethylene glycol (MIRALAX/GLYCOLAX) packet Take 17 g by mouth daily Qty: 30 packet, Refills: 0 Associated Diagnoses: S/P hysterectomy CONTINUE these medications which have NOT CHANGED Details Calcium Citrate 200 MG TABS Take 1 tablet by mouth daily Qty: 120 tablet, Refills: 11 Associated Diagnoses: Gender dysphoria Cholecalciferol (VITAMIN D) 2000 UNITS tablet Take 2,000 Units by mouth daily Qty: 100 tablet, Refills: 11 Associated Diagnoses: Gender dysphoria clindamycin (CLEOCIN T) 1 % external solution Apply topically 2 times daily Qty: 60 mL, Refills: 11 Associated Diagnoses: Acne vulgaris hydrOXYzine (ATARAX) 25 MG tablet Take 1-2 tablets (25-50 mg) by mouth every 6 hours as needed for anxiety Qty: 60 tablet, Refills: 1 Associated Diagnoses: Anxiety propranolol (INDERAL LA) 80 MG capsule Take 1 capsule (80 mg) by mouth daily Qty: 30 capsule, Refills: 3 Associated Diagnoses: Migraine without aura and without status migrainosus, not intractable tretinoin (RETIN-A) 0.025 % cream Spread a pea size amount into affected area topically at bedtime. Use sunscreen SPF>20. Qty: 45 g, Refills: 11 Associated Diagnoses: Acne vulgaris nicotine (NICODERM CQ) 7 MG/24HR patch 2h hr Place 1 patch onto the skin every 24 hours Qty: 30 patch, Refills: 3 Associated Diagnoses: Encounter for smoking cessation counseling testosterone cypionate (DEPOTESTOTERONE CYPIONATE) 200 MG/ML injection Inject 0.4 mLs (80 mg) into the muscle once a week for 25 doses Qty: 10 mL, Refills: 0 Associated Diagnoses: Gender dysphoria !! Syringe/Needle, Disp, 22G X 1-1/2 1 ML MISC 1 each every 7 days Qty: 20 each, Refills: 6 Associated Diagnoses: Gender dysphoria !! Syringe/Needle, Disp, 18G X 1 1 ML MISC 1 each every 7 days Qty: 20 each, Refills: 6 Associated Diagnoses: Gender dysphoria insulin syringe 31G X 5/16 0.5 ML MISC 1 applicator once a week Qty: 100 each, Refills: 3 Associated Diagnoses: Gender dysphoria Sharps Container MISC Use each week with sharps Qty: 1 each, Refills: 1 Associated Diagnoses: Gender dysphoria VALACYCLOVIR HCL PO Take 500 mg by mouth !! - Potential duplicate medications found. Please discuss with provider. STOP taking these medications HYDROcodone-acetaminophen (NORCO) 5-325 MG per tablet Comments: Reason for Stopping: Consultations: No consultations were requested during this admission Brief History of Illness: Patient is a transgender male on chronic testosterone therapy who presented with complaints of chronic back pain and severe dyspareunia. He underwent a pelvic ultrasound that was unremarkable. He was concerned that his pain was due to his pelvic organ's shrinking.?? He desired removal of his reproductive organs, including fallopian tubes and ovaries.?? The risks, benefits and alternatives of surgicalmanagement were discussed in detail with the patient and she signed an informed consent on the morning of the procedure. Hospital Course: The patient's hospital course was unremarkable. He recovered as anticipated and experienced no post-operative complications. He was deemed stable for discharge on POD#2. Discharge Instructions and Follow-Up: Discharge diet: Regular Discharge activity: Lifting restricted to 15 pounds No lifting or strenuous exercise for 6 weeks Pelvic rest for 6 weeks Discharge follow-up: Follow up with Dr Cohen in 2 weeks Wound care Drink plenty of fluids Ice to area for comfort Keep wound clean and dry Steri-strips off in 7 days Discharge Disposition: Discharged to home Attestation: I have reviewed today's vital signs, notes, medications, labs and imaging. Marce Mares MD OBGYN Resident, PGY4 03/14/2016 7:01 AM I have seen, examined and counseled the patient on the day of discharge. Discussed post operative instructions and medications. I have reviewed and edited the note. Rachel Sexton documented in this encounter Medications at Time of Discharge Medication Sig Dispensed Refills Start Date End Date albuterol (PROAIR Inhale 2 puffs into 0 5 HFA/PROVENTIL the lungs HFA/VENTOLIN HFA) 108 (90 BASE) MCG/ACT Inhaler ALBUTEROL IN Inhale 2 puffs into 0 12/24/2014 the lungs valACYclovir (VALTREX) Take 1 tablet by 0 015 500 MG tablet mouth acetaminophen (TYLENOL) Take 2 tablets (650 100 tablet 1 05/10/2019 325 MG tabletIndications: mg) by mouth every S/P hysterectomy 4 hours as needed for other (surgical pain) albuterol (PROAIR Inhale 2 puffs into 0 5 08/19/2017 HFA/PROVENTIL the lungs HFA/VENTOLIN HFA) 108 (90 BASE) MCG/ACT Inhaler Calcium Citrate 200 MG Take 1 tablet by 120 tablet 11 016 05/10/2019 TABSIndications: Gender mouth daily dysphoria Cholecalciferol (VITAMIN Take 2,000 Units by 100 tablet 11 03/25/2017 D) 2000 UNITS mouth daily tabletIndications: Gender dysphoria clindamycin (CLEOCIN T) 1 Apply topically 2 60 mL 11 08/19/2017 % external times daily solutionIndications: Acne vulgaris hydrOXYzine (ATARAX) 25 Take 1-2 tablets 60 tablet 1 201501/10/2017 MG tabletIndications: (25-50 mg) by mouth Anxiety every 6 hours as needed for anxiety ibuprofen (ADVIL,MOTRIN) Take 1 tablet (600 60 tablet 0 05/16/2016 600 MG tabletIndications: mg) by mouth every S/P hysterectomy 6 hours insulin syringe 31G X 1 applicator once a 100 each 3 01/0301/12/201910/29 0.5 ML week MISCIndications: Gender dysphoria nicotine (NICODERM CQ) 7 Place 1 patch onto 30 patch 3 11/19/2016 MG/24HR patch 2h the skin every 24 hrIndications: Encounter hours for smoking cessation counseling oxyCODONE (ROXICODONE) 5 Take 1-2 tablets 30 tablet 0 03/1305/16/2016 MG immediate release (5-10 mg) by mouth tabletIndications: S/P every 4 hours as hysterectomy needed for moderate to severe pain polyethylene glycol Take 17 g by mouth 30 packet 0 03/13/20 16 11/19/2016 (MIRALAX/GLYCOLAX) daily packetIndications: S/P hysterectomy propranolol (INDERAL LA) Take 1 capsule (80 30 capsule 3 04/23/2016 80 MG capsuleIndications: mg) by mouth daily Migraine without aura and without status migrainosus, not intractable senna-docusate Take 1-2 tablets by 100 tablet 0 03/13/2016 1 07/17/2015 (SENOKOT-S;PERICOLACE) mouth 2 times daily 8.6-50 MG per tabletIndications: S/P hysterectomy Sharps Container Use each week with 1 each 1 03/23/2015 05/10/2019 MISCIndications: Gender sharps dysphoria Syringe/Needle, Disp, 18G 1 each every 7 days 20 each 6 0 01/04/2016 06/17/2016 X 1 1 ML MISCIndications: Gender dysphoria Syringe/Needle, Disp, 22G 1 each every 7 days 20 each 6 0 01/04/2016 06/17/2016 X 1-1/2 1 ML MISCIndications: Gender dysphoria testosterone cypionate Inject 0.4 mLs (80 10 mL 0 01/0306/17/2016 (DEPOTESTOTERONE mg) into the muscle CYPIONATE) 200 MG/ML once a week for 25 injectionIndications: doses Gender dysphoria testosterone cypionate Inject [...] week for 4 injectionIndications: doses Gender dysphoria tretinoin (RETIN-A) 0.025 Spread a pea size 45 g 11 03/201606/17/2016 % creamIndications: Acne amount into vulgaris affected area topically at bedtime. Use sunscreen SPF>20. VALACYCLOVIR HCL PO Take 500 mg by 0 0 08/19/2017 mouth daily documented as of this encounter Progress Notes Marce Mares MD - 03/14/2016 6:58 AM CDT Electrotyper Helper Progress Note S: Patient reports he is doing well this morning. Tolerating regular diet without nausea. Ambulatingwithout dizziness. Voiding is getting easier but still takes a while to start. +flatus, no BM yet. O: Filed Vitals: 03/13/16 0738 03/13/16 1500 03/13/16 2252 03/14/16 0613 BP: 112/67 109/50 115/72 Pulse: Temp: 98.2 ??F (36.8 ??C) 98.5 ??F (36.9 ??C) 96.4 ??F (35.8 ??C) TempSrc: Oral Oral Oral Resp: 18 18 18 Height: Weight: 69.899 kg (154 lb 1.6 oz) SpO2: 98% 99% 98% Gen: resting in bed, NAD Abd: Soft, nondistended, appropriately tender Incision: dried blood on midline steristrips but no active drainage, no erythema, intact Ext: nontender, no edema A/P: 20 year old POD#2 s/p SHADY, BSO for chronic pain, transgender transition - FEN/GI: Regular diet as tolerated. ?? - Pain: tylenol, oxycodone, ibuprofen - Neuro: propanolol for migraines - : s/p wharton - PPx: SCDs while in bed, encourage ambulation. Lovenox while in house due to family hx of PE - Dispo: d/c later today Marce Mares MD OBGYN Resident, PGY4 03/14/2016 7:00 AM Cleo Cevallos APRN CNP - 03/13/2016 9:46 AM CDT REGIONAL ANESTHESIA PAIN SERVICE SUBJECTIVE: Pt reports soreness in abdomen and pain not well controlled, but improving since yesterday. Denies any adverse side effects associated with the nerve block including denies weakness, paresthesias, circumoral numbness, metallic taste or tinnitus. Patient is currently without nausea or vomiting. Clinically Aligned Pain Assessment (CAPA): Comfort (How is your pain?): Tolerable with discomfort Change in Pain (Since your last medication/intervention?): Getting better Pain Control (How are your pain treatments working?): Partially effective pain control Numerical Pain Rating: Reports pain 8/10 at rest and 8/10 with movement. OBJECTIVE: Blood pressure 112/67, pulse 55, temperature 98.2 ??F (36.8 ??C), temperature source Oral, resp. rate 18, height 1.626 m (5' 4), weight 69.899 kg (154 lb 1.6 oz), SpO2 98 %, not currently . Strength 5/5 and grossly symmetric in bilateral LE ASSESSMENT/PLAN: Jazzmine Chakraborty is a 20 year old female POD #1 s/p COMBINED HYSTERECTOMY TOTAL ABDOMINAL, SALPINGO-OOPHORECTOMY with single shot bilateral transversus abdominis plane (TAP) nerve block injections, bupivacaine 0.25% with epinephrine 1:200,000 10 mL each side of abdomen, total 20 mL, then liposome bupivacaine (Exparel) 1.3% 10mL each side of abdomen, total 20 mL given on 03/12 for postoperative analgesia. Pt has not been out of bed yet. No weakness or paresthesias of BLE. No evidence of adverse side effects associated with nerve block injections. Pt is receiving adequate incisional pain control. Anticipate up to 72 hours of incisional pain control. Anticipate patient will require opioid/nonopioid analgesics for visceral and muscle pain not controlled with local anesthetic. - NO other local anesthetic use within 96 hours of liposome bupivacaine (Exparel) - patient received verbal and written instructions about liposome bupivacaine - please call if questions or concerns - discussed plan with attending anesthesiologist Cleo Cevallos APRN [facility] Regional Anesthesia Pain Service 03/13/2016 9:46 AM 24 hour Job Code Pager. For in-house use only. Dial * * *[phone] and [place]: [phone] [facility]: [phone] Peds: [phone] Enter call-back number May text page using [employer], but NOT [employer]. Abbi Cohen MD - 03/13/2016 6:31 AM CDT Electrotyper Helper Progress Note S: Pablo is feeling a little better this morning. Still sore but pain is better than yesterday. Passed some flatus this AM. Already walked in the halls once. No nausea. O: Filed Vitals: 03/12/16 1830 03/12/16 1941 03/12/16 2203 03/13/16 0250 BP: 118/68 120/69 107/61 117/66 Pulse: Temp: 96 ??F (35.6 ??C) 97.6 ??F (36.4 ??C) 98.3 ??F (36.8 ??C) TempSrc: Oral Oral Oral Resp: 18 18 16 Height: Weight: 69.899 kg (154 lb 1.6 oz) SpO2: 98% 98% 99% Gen: resting in bed, NAD Abd: soft, nondistended, appropriately tender. Incision covered in bandage without shadowing. Ext: nontender, SCDs in place, no edema HEMOGLOBIN Date Value Ref Range Status 03/13/2016 14.9 11.7 - 15.7 g/dL Final A/P: 20 year old POD#1 s/p SHADY, BSO for chronic pain, transgender transition - FEN/GI: Regular diet as tolerated. - Pain: tylenol, oxycodone, toradol, prn IV dilaudid iv not tolerating PO - Neuro: propanolol for migraines - : d/c wharton - PPx: SCDs while in bed, encourage ambulation. Will start lovenox this AM due to family history of PE - Dispo: anticipate d/c POD#2-3 Marce Mares MD OBGYN Resident, PGY4 03/13/2016 7:24 AM Staff MD Note I appreciate the note by Dr. Mares. Any necessary changes have been made by me. I evaluated the patient with the resident and agree with the assessment and plan. Abbi Cohen MD Marce Mares MD - 03/12/2016 2:17 PM CDT [employer] Helper Post-Op check S: Patient reports incisional pain and nausea. Denies chest or difficulty breathing. No other complaints. O: Filed Vitals: 03/12/16 1315 03/12/16 1330 03/12/16 1345 03/12/16 1400 BP: 118/68 119/73 120/74 119/72 Pulse: 55 Temp: 98.6 ??F (37 ??C) TempSrc: Oral Resp: 18 13 12 19 Height: Weight: SpO2: 99% 100% 99% 99% Gen: resting in bed, NAD CV: RRR Resp: CTAB Abd: soft, nondistended, appropriately tender. Incision covered in dressing- c/d/i Ext: nontender. SCDs in place A/P: 20 year old POD#0 s/p SHADY, BSO for chronic pain, transgender transition - FEN/GI: ADAT. Can d/c IV fluids once tolerating 500cc PO intake per shift - Pain: tylenol, oxycodone, toradol, prn IV dilaudid iv not tolerating PO - Neuro: propanolol for migraines to be restarted this evening - : wharton until ambulatory - PPx: SCDs while in bed, encourage ambulation. Will start ppx lovenox in AM due to family history of PE - Dispo: anticipate d/c POD#2-3 Marce Mares MD OBGYN Resident, PGY4 03/12/2016 2:20 PM documented in this encounter Nursing Notes Arlen Mueller RN - 03/12/2016 1:56 PM CDT Report given to Nora Garcia RN. Patricia Latif RN - 03/12/2016 7:10 AM CDT Pt requests to keep his underwear on until OR. Patricia Latif RN - 03/12/2016 6:44 AM CDT Pt states being nauseous since Friday last week, threw up once on Friday, was afraid to eat food since. documented in this encounter Miscellaneous Notes Plan of Care - Negar Robison RN - 03/14/2016 8:48 PM CDT Problem: Goal Outcome Summary Goal: Goal Outcome Summary Outcome: Adequate for Discharge Date Met: 03/14/16 VSS. Alert and oriented. Pain is tolerable with prn oxy. Tolerating diet. Incision is HALINA. Dischargeinstructions were given to pt, all questions were answered. Discharge meds were given, pt had all questions answered. Pt was brought home with mother and sister. Plan of Care - Lois Mathis RN - 03/14/2016 2:15 PM CDT Problem: Goal Outcome Summary Goal: Goal Outcome Summary Outcome: Adequate for Discharge Date Met: 03/14/16 Patient alert and oriented x 4. Up and ambulating independently. CMS and neuros intact. Abdominal incision POLITICAL SCIENCE CHAIR, abdominal binder on at all times. Patient reports adequate pain control on po tylenol, ibuprofen and oxycodone. Patient hasn't had a BM x 4 days, dulcolax suppository given and patient had 4BM so far. Patient has been cleared to d/c home today. Patient will d/c home at around 7 pm tonight and will be picked up by his mother and friend. Will continue with POC. Plan of Care - Anca Franco RN - 03/14/2016 4:50 AM CDT Problem: Goal Outcome Summary Goal: Goal Outcome Summary Outcome: Improving Patient alert and oriented x 4. VSS. Bowel sounds active in all quadrants. Patient passing flatus. Reports last BM 03/09. Dressing CDI. Abdominal binder on for comfort. Patient up independently walking halls. Took shower overnight. No IV access. Patient able to make needs known. Will continue with POC. Plan of Care - Alia Johns RN - 03/13/2016 11:13 PM CDT Problem: Goal Outcome Summary Goal: Goal Outcome Summary Outcome: No Change Alert and oriented. VSS. Dressings CDI. Small amount vaginal bleeding present. Voiding without difficulty. Tolerating regular diet and fluids. Given prn oxycodone for abdominal pain. Up independently and steady on feet. Able to make needs known. Continue with POC. Plan of Care - Smita Adrian RN - 03/13/2016 2:46 PM CDT Problem: Goal Outcome Summary Goal: Goal Outcome Summary Outcome: Improving A/O x4. VSS. Abd dsg CDI. Abd binder in place for comfort. Using IS indep. LS clear. Intermittent nausea this am, has subsided. BS+ x4. Wharton was removed at 0900, pt voiding without difficulty. Tolerating reg diet, appetite poor. Up indep in room and halls. Pain managed with oxycodone, scheduled tylenol and ibuprofen. Pt able to make needs known. Continue POC. Plan of Care - Helen Martinez RN - 03/13/2016 5:04 AM CDT Problem: Goal Outcome Summary Goal: Goal Outcome Summary Outcome: Improving Patient A&O x 4. Neuros and CMS intact, except slight numbness and tingling from block. VSS and afebrile. SpO2 99% on 1LPM NC. (See Flowsheet). LS clear and BS present in all quadrants. Wharton catheter in place and patent, draining adequate amounts of urine. Patient states pain is tolerable. Pain meds given as ordered and PRN (see MAR), and ice packs/heat packs rotated and used for comfort. Surgical site is CDI with no drainage. Left PIV infusing LR at 125ml/hr.Patient is on clear liquid diet andtolerating it well. Patient up ad marcela with assist x 1 with walker in room and hallway. Patient able to make needs known, will continue to monitor and notify MD of any changes. Plan of Care - Nora Garcia RN - 03/12/2016 6:04 PM CDT Problem: Goal Outcome Summary Goal: Goal Outcome Summary Outcome: No Change Patient arrived from PACU s/p SHADY + BSO. Transferred to bed via hovermat and patient became nauseated and started to dry heave. Did not have actual emesis but was spitting frequently. Given Zofran for nausea, later offered compazine but patient declined x2. Peripad small amount of bloody drainage, additional on chux removed from under patient - updated [employer] resident, placed new pad around 1800. Abdominal dressing CDI, abdominal binder on. Will continue to monitor bleeding. Patient unrealistic about pain after surgery, has asked multiple times, Why am I having pain?!. Medicated with oxycodone, Tylenol and IV Dilaudid but patient began refusing PO meds due to nausea but also stated he didn't want nausea medication. Educated patient on duration of PO vs IV but patient does not seem to understand. Asking nursing staff to move ice pack off my stomach and having staff hold water cup for him. Tried some clear liquids but stated it caused nausea. LR @ 125. Wharton patent and draining. Turning from side to side with much encouragement. Continue to monitor. Op Note - Abbi Cohen MD - 03/12/2016 11:55 AM CDT Gynecology Operative Note Total Abdominal Hysterectomy Note Preoperative diagnosis: - Chronic Pelvic pain - Gender Dysphoria Disorder - Exposure to Testosterone Postoperative diagnosis: - same s/p below procedure Procedure: - Total abdominal hysterectomy, bilateral salpingo-oophorectomy via Pfannenstiel skin incision Surgeon: Abbi Cohen MD Pharmaceutical Operator: G4 - Marce Mares MD; August Huerta MS3 Anesthesia: General endotracheal anesthesia Complications: none apparent EBL: 50 mL Fluids: 1600 cc Urine output: 150cc clear orange urine at the end of the case (received pyridium) Pathology: uterus, cervix, attached right fallopian tube and ovary. Left fallopian tube and ovary Findings: EUA: small introitus, small mobile anteverted uterus. No adnexal masses. Intraop: normal uterus, fallopian tubes and ovaries bilaterally. Left ovary slightly adherent to left pelvic sidewall.Normal appendix Indications: Patient is a transgender male on chronic testosterone therapy who presented with complaints of chronic back pain and severe dyspareunia. He underwent a pelvic ultrasound that was unremarkable. He has been on testosterone therapy for 1 year. He was concerned that his pain was due to his pelvic organ's shrinking. He desired removal of his reproductive organs, including fallopian tubes and ovaries. The risks, benefits and alternatives of surgical management were discussed in detail with the patient and she signed an informed consent on the morning of the procedure. Procedure: The patient was taken to the operating room where he underwent general endotrachael anesthesia without difficulty. He was placed in the doral lithotomy position and prepped and draped in the usual sterile fashion. A timeout was performed. A Pfannensitel skin incision was made approximately 2 cm above the symphysis pubis and extended with cautery to the rectus fascia. The fascia was then incised bilaterally with cautery and the muscles of the anterior abdominal wall were in the midline by both blunt and sharp dissection. The peritoneum was identified, elevated, and entered sharply. The pelvis was examined with the abovenoted findings. A Leeds retractor was placed into the incision and the bowel packed away with moist laparotomy sponges. Two joi clamps were placed on the cornua and used for retraction. The round ligament on the right side was suture ligated with 0-vicryl and transected with cautery. The anteriorleaf of the broad ligament was incised along the bladder reflection to the midline. A window was made in the posterior leaf of the broad ligament and the IP ligament isolated. The IP ligament on the right side was then doubly clamped, transected, and doubly tied with 0-vicryl. The remainder of the post erior leaf of the broad ligament was taken down and the right uterine artery skeletonized. Attentionwas then turned to the left side. The left round ligament was suture ligated with 0-vicryl and transected with cautery. The anterior leaf of the broad ligament was taken down with cautery toward the midline along the bladder reflection. The bladder was then gently dissected off the lower uterine segment and the cervix via blunt dissection and limited cautery. Attempt was made to make a window in the posterior leaf of the broad ligament, however, this was unsuccessful due to the ovary being adherent to the left pelvic sidewall. The fallopian tube and uteroovarian ligament was doubly clamped, transected, and suture ligated. The left uterine artery was then skeletonized. The uterine arteries were then clamped with Too clamps, transected and suture ligated with O-Vicryl. The uterosacral ligaments were clamped on each side and suture ligated with 0-vicryl. The right-angle clamps were then used to clamp below the cervix and this pedicle was then transected and suture ligated, thus removing the specimen. The vaginal cuff angles were closed with [id number] stitches of 0-vicryl. The remainder of the vaginal cuff was closed with two additional interrupted 0- Vicryl [id number] sutures. Hemostasis was assured. Attention was then turned to the remaining left fallopian tube and ovary. The tube and ovary were grasped with a pat clamp. The peritoneum was taken down parallel to the IP ligament to isolate it. Once below the level of the fimbria, the IP ligament was doubly clamped, transected, and doubly ligated with 0-vicryl and the specimen sent for pathology. Slight oozing from the sigmoid colon epiploica with controlled with limited cautery. Bilateral ureters were visualized transperitoneallyand noted to vermiculate. The pelvis was irrigated copiously with warmed normal saline. All laparotomy sponges and instrumentswere removed from the abdomen. The appendix was visualized and noted to be normal. The facia was closed with running 0-vicryl and hemostasis was assured. The subcutaneous tissue was reapproximated with interrupted suture of 3-0 vicryl. The skin was closed with 4-0 monocryl. Sponge, lap, instrument andneedle counts were correct x 2. The patient was taken to the PACU in stable condition. Dr. Cohen waspresent and scrubbed for the entire procedure. Marce Mares MD OBGYN Resident, PGY4 03/12/2016 12:30 PM Staff Note I was present and scrubbed for the entire procedure noted above. I agree with the description above and any necessary changes have been made by me. Abbi Cohen MD Brief Op Note - Abbi Cohen MD - 03/12/2016 11:53 AM CDT [facility] Brief Operative Note Name: Jazzmine Chakraborty : 1995 Date of Surgery: 03/12/2016 Pre-operative Diagnosis: 1. Chronic pelvic pain 2. Gender dysphoria disorder 3. Exposure to testosterone Post-operative Diagnosis: Same s/p below procedure Procedure(s): Total abdominal hysterectomy, bilateral salpingo-oophorectomy Surgeon: Abbi Cohen MD Resident: Marce Mares MD, PGY4 Medical Student: August Huerta Anesthesia: general EBL: 50 mL Urine Output: 150 mL clear urine Fluids: 1600 mL crystalloid Specimens: uterus, cervix, attached right fallopian tube and ovary. Left fallopian tube and ovary Findings: EUA: small introitus, small mobile anteverted uterus. No adnexal masses. Intraop: normal uterus, fallopian tubes and ovaries bilaterally. Left ovary slightly adherent to left pelvic sidewall.Normal appendix. . Complications: None. Marce Mares MD 03/12/2016, 11:53 AM Staff Note I was present and scrubbed for the entire procedure noted above. I agree with the description above and any necessary changes have been made by me. Abbi Cohen MD 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 documented as of this encounter Procedures Procedure Name Priority Date/Time Associated Diagnosis Comme nts GLUCOSE BY METER Routine 03/14/2016 6:53 AM S/P hysterectomy R esults for this CDT procedure are i n the results section. GLUCOSE BY METER Routine 03/13/2016 5:47 AM Resul ts for this CDT procedure are i n the results section. HEMOGLOBIN Routine 03/13/2016 5:22 AM Results f or this CDT procedure are i n the results section. SURGICAL PATHOLOGY Routine 03/12/2016 11:04 Resul ts for this EXAM AM CDT procedure are i n the results section. HYSTERECTOMY, TOTAL, 03/12/2016 9:09 AM Gender Dysphor ia, ABDOMINAL, WITH CDT Chronic Pain, SALPINGO-OOPHORECTOM Testosterone Exposur e Y ABO/RH TYPE AND STAT 03/12/2016 7:01 AM Result s for this SCREEN CDT procedure are i n the results section. CBC WITH PLATELETS STAT 03/12/2016 7:01 AM Res ults for this CDT procedure are i n the results section. HCG QUALITATIVE STAT 03/12/2016 6:34 AM Result s for this URINE CDT procedure are i n the results section. documented in this encounter Results Glucose by meter (03/14/2016 6:53 AM CDT) P athologist Signature Glucose 88 70 - 99 POINT OF CARE mg/dL TEST, GLUCOSE Specimen Anatomical Collection Method Collection Time Receive d Time (Source) Location / / Volume Laterality 03/14/2016 6:53 AM 6 6:59 CDT AM CDT Abbi Cohen MD [facility] POCT Performing Organization Address City/State/ZIP Code Phon e Number FV POINT OF CARE TEST, GLUCOSE POINT OF CARE TEST, GLUCOSE (ABNORMAL) Glucose by meter (03/13/2016 5:47 AM CDT) P athologist Signature Glucose 111 (H) 70 - 99 POINT OF CARE mg/dL TEST, GLUCOSE Specimen Anatomical Collection Method Collection Time Receive d Time (Source) Location / / Volume Laterality 03/13/2016 5:47 AM 201 6 5:49 CDT AM CDT Abbi Cohen MD LAB - [facility] POCT Performing Organization Address City/State/ZIP Code Phon e Number [facility] POINT OF CARE TEST, GLUCOSE POINT OF CARE TEST, GLUCOSE Hemoglobin (03/13/2016 5:22 AM CDT) P athologist Signature Hemoglobin 14.9 11.7 - 15.7 [facility] g/dL [facility] Specimen Anatomical Collection Method Collection Time Receive d Time (Source) Location / / Volume Laterality Blood specimen 03/13/2016 5:22 AM 016 5:27 (specimen) CDT AM CDT Marce Mares MD LAB - BLOOD ORDERABLES Performing Organization Address City/[facility]/ZIP Code Phon e Number [facility] [address] [place] [address] [facility] Surgical pathology exam (03/12/2016 11:04 AM CDT) Component Value Ref Test Analysis Performed At Patholo gist Range Method Time Signature Copath Report Patient Name: JAZZMINE CHAKRABORTY MR#: [id number] Specimen #: [id number] Collected: 03/12/2016 Received: 03/12/2016 Reported: 03/14/2016 17:31 Ordering Phy(s): ABBI COHEN SPECIMEN(S): Uterus, cervix, bilateral ovaries, bilateral fallopian tubes FINAL DIAGNOSIS: UTERUS, CERVIX, BILATERAL OVARIES AND FALLOPIAN TUBES, TOTAL ABDOMINAL HYSTERECTOMY BILATERAL SALPINGO-OOPHORECTOMY: - Inactive endometrium - Myometrium with no significant histopathologic abnormality - Cervix with atrophic changes - Bilateral fallopian tubes with no significant histopatholo gic abnormality - Bilateral ovaries with cystic follicles I have personally reviewed all specimens and or slides, incl uding the listed special stains, and used them with my medical judgeme nt to determine the final diagnosis. Electronically signed out by: Fabiana Stockton M.D., PhD, Physicians CLINICAL HISTORY: 20 year-old transgender male on chronic testosterone therapy for 1 year, presenting with chronic back pain and severe dyspareunia. GROSS: The specimen is received in formalin with proper patient's identification and labeled uterus, cervix, bilateral tubes and ovaries and it consists of a 6.8 x 4.5 x 2.1 cm, hysterectomy specim en. The attached right ovary measures 3.0 x 2.3 x 1.5 cm and right f allopian tube measures 4.2 cm in length and 0.6 cm in diameter. The d etached left ovary measures 3.0 x 2.3 x 1.3 cm and left tube measures 3.8 cm in length and 0.6 cm in diameter. The total weight of specimen is 54.6 g. The cervix is smooth with a patent 0.7 x 0.3 cm cervical os. ??The serosal surface of uterus is smooth without evidence of bulg ing myoma. Longitudinal opening the uterus 3:00 and 9:00 demonstrates g rossly unremarkable endometrial cavity. ??Serial sectioning reveals a 0.1 cm endometrium, and 1.6 cm anterior and 1.5 cm posterior myomet rium. ??The bilateral ovaries and fallopian tubes are grossly unremarkab le. Bilingual Student Tutor sections are submitted in seven cassettes. Summary of sections: 1 and 2 - cervix 3 and 4 - anterior and posterior endomyometrium 5 - endometrium 6- right ovary and tube 7- left ovary and tube (Dictated by: Stephanie Byers 03/12/2016 02:31 PM) MICROSCOPIC: Microscopic examination was performed. CPT Codes: A: 99264-XK9 TESTING LAB LOCATION: [address] [id number] COLLECTION SITE: Client: [facility] Location: UROR (B) Specimen Anatomical Collection Method Collection Time Receive d Time (Source) Location / / Volume Laterality 03/12/2016 11:04 03/12/2016 AM CDT 11:38 AM CDT Abbi BROWNE - YURIY ORELLANA Performing Organization Address City/State/ZIP Code Phon e Number COPATH (ABNORMAL) CBC with platelets (03/12/2016 7:01 AM CDT) [facility] Method Time Signature WBC 8.0 4.0 - 11.0 [facility] 10e9/L [facility] RBC Count 5.52 (H) 3.8 - 5.2 [facility] 10e12/L [facility] Hemoglobin 16.8 (H) 11.7 - [facility] 15.7 g/dL [facility] Hematocrit 48.5 (H) 35.0 - [facility] 47.0 % [facility] MCV 88 78 - 100 [facility] MCH 30.4 26.5 - [facility] 33.0 pg [facility] MCHC 34.6 31.5 - [facility] 36.5 g/dL [facility] RDW 12.2 10.0 - [facility] 15.0 % [facility] Platelet Count 222 150 - 450 [facility] 10e9/L [facility] Specimen Anatomical Collection Method Collection Time Receive d Time (Source) Location / / Volume Laterality Blood specimen 03/12/2016 7:01 AM 016 7:02 (specimen) CDT AM CDT Abbi Cohen MD LAB - BLOOD ORDERABLES Performing Organization Address City/[facility]/ZIP Code Phon e Number [address] ABO/Rh type and screen (03/12/2016 7:01 AM CDT) Patholo gist Method Time Signature ABO A [facility] RH(D) Pos [facility] Antibody Neg [facility] Screen [facility] Test Valid [facility] [facility] Specimen 03/15/2016 [facility] Expires [facility] Specimen Anatomical Collection Method Collection Time Receive d Time (Source) Location / / Volume Laterality Blood specimen 03/12/2016 7:01 AM 016 7:02 (specimen) CDT AM CDT Abbi Cohen MD LAB - BLOOD BANK TEST ORDER Performing Organization Address City/State/ZIP Code Phon e Number [address] HCG qualitative urine (03/12/2016 6:34 AM CDT) Analysis Performed At Patho logist Time Signature HCG Qual Urine Negative NEG [facility] Specimen Anatomical Collection Method Collection Time Receive d Time (Source) Location / / Volume Laterality Urine specimen 03/12/2016 6:34 AM 016 6:41 (specimen) CDT AM CDT Abbi Cohen MD LAB - URINE ORDERABLES Performing Organization Address City/State/ZIP Code Phon e Number [facility] [address] [place] [address] [facility] documented in this encounter Visit Diagnoses Not on filedocumented in this encounter Administered Medications Inactive Administered Medications - up to 3 most recent administrations Medication Order MAR Action Action Date Dose Rate Site sodium chloride 0.9% Given 03/12/2016 11:08 1,000 mLs Operative (bottle) irrigation AM CDT Site/Surgical S ite PRN, Starting on Fri03/12/16 at 1108, Intra-procedure documented in this encounter Active and Recently Administered Medications Times are shown in CDT. Scheduled Medication Order 03/12/2016 03/13/2016 03/14/2016 acetaminophen (TYLENOL) tablet 975 mg (CANCELED) 1450 (Given - Provider: Nora Garcia, CASH)2221 (Given - Provider: Helen Martinez, CASH) 0607 (Given - Provider: Kyar Kim, CASH)1601 (Given - Provider: Alia Johns, CASH) 0005 (Given - Provider: Anca steele, RN)0822 (Given - Provider: Lois Mathis, CASH)1615 (Not Given - Provider: Negar Robison, CASH - Reason: Patient/family refused) 975 mg, Oral, EVERY 8 HOURS, First dose on Fri03/12/16 at 1430, For 3 days, Do not use if patient has an active opioid/acetaminophen analgesic order for pain Maximum acetaminophen dose from all sources = 75 mg/kg/day not to exceed 4 grams/day., Post-procedure bupivacaine liposome (EXPAREL) 1.3 % PRESLEY G ACTING injectable suspension ([employer]ime users: if unable to chart, ask pharmacist to change freq to once) 20 mL (COMPLETED) 0924 (Given - Provider: Sanjay Weiss, ) 20 mL, Infiltration, DURING SURGERY, Sta rting Fri03/12/16 at 0756, For 1 dose, Invert vial to re-suspend particles immediately prior to withdrawal from vial. Stable for 4 hours at room temperature once removed from vial., Intra-procedure ceFAZolin (ANCEF) intermittent infusion 2 g (pre-mix) (COMPLETED) 0930 (Given - Provider: Katalina Fair APRN WASTEWATER TREATMENT OPERATOR)1130 (Given - Provider: Katalina Fair APRN WASTEWATER TREATMENT OPERATOR) 2 g, Intravenous, PRE-OP/PRE-PROCEDURE, Starting Fri03/12/16 at 0626, For 1 dose, Give first dose within 1 hour PRIOR to incision. If patient weight is greater than or equal to 120 kg increase dose to 3 g., Indications: Surgical Prophylaxis, Pre-procedure enoxaparin (LOVENOX) injection 40 mg (CANCELED) 0816 (Given - Provider: Smita Adrian RN) 1323 (Given - Provider: Lois Mathis RN) 40 mg, Subcutaneous, EVERY 24 HOURS, First dose on Fri03/13/16 a t 1000 ibuprofen (ADVIL,MOTRIN) tablet 600 mg 1 432 (Given - Provider: Smita Adrian RN)1924 (Given - Provider: Alia Johns RN) 0155 (Given - Provider: Kyra Kim RN)0821 (Given - Provider: Lois Mathis RN)1355 (Given - Provider: Lois Mathis RN)2000 (Canceled Entry - Provider: Orders Generic Provider - Comment: Automatically canceled at discont 600 mg, Oral, EVERY 6 HOURS, First dose on Fri03/13/16 at 1400 inue of medication order) ketorolac (TORADOL) injection 30 mg (CANCELED) 0205 (Given - Provider: Helen Martinez RN)0811 (Given - Provider: Smita Adrian RN) 30 mg, Intravenous, EVERY 6 HOURS, First dose on Fri03/13/16 at 0200 phenazopyridine (PYRIDIUM) tablet 200 mg (COMPLETED) 0 702 (Given - Provider: Patricia Latif RN) 200 mg, Oral, ONCE, Fri03/12/16 at 0630, For 1 dose, Give in preop holding room with small sip of water., Pre-procedure polyethylene glycol (MIRALAX/GLYCOLAX) packet 17 g 1116 (Given - Provider: Smita Adrian RN) 0821 (Given - Provider: Lois Mathis RN) 17 g, Oral, DAILY, First dose on 02/15 at 0800, 1 Packet = 17 grams. Mixed prescribed dose in 8 ounces of water. Follow with 8 oz. of water. propranolol (INDERAL LA) 24 hr capsule 80 mg (CANCELED ) 1543 (Not Given - Provider: Nora Garcia RN - Reason: Contraindicated - Comment: HR 50s)2220 (Given - Provider: Helen Martinez RN) 192 (Given - Provider: Alia Johns RN) 1999 (Canceled Entry - Provider: Orders Generic Provider - Comment: Automatically canceled at discontinue of medication order) 80 mg, Oral, DAILY, First dose on Fri at 1430, DO NOT CRUSH. For ADULTS, Hold if Heart Rate less than 60 bpm. senna-docusate (SENOKOT-S;PERICOLACE) 8.6-50 MG per tablet 1 -2 tablet 0811 (Given - Provider: Smita Adrian RN)192 (Given - Provider: Alia Johns RN) 08 (Given - Provider: Lois Mathis RN)1999 (Canceled Entry - Provider: Orders Generic Provider - Comment: Automatically canceled at discontinue of medication order) 1-2 tablet, Oral, 2 TIMES DAILY, First d ose on Fri03/13/16 at 0800, Start with 1 tablet PO BID, If no bowel movement in 24 hours, increase to 2 tablets PO BID. Hold for loose stools., Post-procedure sodium chloride (PF) 0.9% PF flush 3 mL (CANCELED) 145 0 (Not Given - Provider: Nora Garcia RN - Reason: IV Infusing)2216 (Not Given - Provider: Helen Martinez RN - Reason: IV Infusing) 0536 (Not Given - Provider: Kyra Kim RN - Reason: IV Infusing)1433 (Given - Provider: Smita Adrian RN) 0005 (Given - Provider: Anca stelee RN) 3 mL, Intracatheter, EVERY 8 HOURS, Firs t dose on Fri03/12/16 at 1430, And Q1H PRN, to lock peripheral IV dormant line., Post-procedure Continuous Medication Order 03/12/2016 03/13/2016 03/14/2016 lactated ringers infusion (CANCELED) 1416 (New Bag - P rovider: Nora Garcia RN)2216 (New Bag - Provider: Helen Martinez, RN) 0532 (New Bag - Provider: Kyra Kim RN) at 125 mL/hr, Intravenous, CONTINUOUS, P ost-procedure, Starting Fri03/12/16 at 1430, Until Fri03/13/16 at 0725 PRN Medication Order 03/12/2016 03/13/2016 03/14/2016 acetaminophen (TYLENOL) tablet 650 mg 650 mg, Oral, EVERY 4 HOURS PRN, other, surgical pain, Starting Fri03/15/16 at 0000, May give first dose 4 hours after last scheduled dose of acetaminophen Maximum acetaminophen dose from all sources = 75 mg/kg/day not to exceed 4 grams/day., Post-procedure bisacodyl (DULCOLAX) suppository 10 mg (CANCELED) 1050 (Given - Provider: Lois Mathis RN) 10 mg, Rectal, DAILY PRN, constipation, Starting Bianca 03/14/16 at 0830 HYDROmorphone (PF) (DILAUDID) injection 0.3-0.5 mg (CA NCELED) 1232 (Given - Provider: Arlen Mueller RN)1245 (Given - Provider: Arlen Mueller RN)1343 (Given - Provider: Arlen Mueller RN) 0.3-0.5 mg, Intravenous, EVERY 10 MIN SC N, Starting Fri03/12/16 at 1127, Until Fri03/12/16 at 1410, other, acute pain.?May administer if Respiratory Rate is greater than 10, PACU/Phase II, If fentany l is also ordered, use HYDROmorphone if pain control insufficient with fentanyl or a longer acting agent is needed. Max cumulative dose = 2 mg HYDROmorphone (PF) (DILAUDID) injection 0.3-0.5 mg (CA NCELED) 1740 (Given - Provider: Nora Garcia RN)1944 (Given - Provider: Helenelyssa Martinez RN) 1200 (Given - Provider: Smita Adrian RN) 0.3-0.5 mg, Intravenous, EVERY 2 HOURS P RN, Starting 03/12/16 at 1256, Until Bianca 03/14/16 at 2327, severe pain, or patient unable to take PO, Post-procedure, Hold while on CHAIR INSPECTOR AND LEVELER.. ketorolac (TORADOL) injection 30 mg (CANCELED) 1259 (G iven - Provider: Arlen Mueller RN) 30 mg, Intravenous, EVERY 6 HOURS PRN, S tarting 03/12/16 at 1257, For 24 hours, moderate to severe pain ondansetron (ZOFRAN) injection 4 mg (CANCELED) 1238 (G iven - Provider: Arlen Mueller RN) 4 mg, Intravenous, EVERY 30 MIN PRN, boubacar sea, vomiting, for 2 Minutes, Starting 03/12/16 at 1127, For 2 doses, MAX total dose = 8 mg, including OR dosing. This is step 1 of the nausea and vomiting pro tocol. If not resolved in 15 minutes, th en go to step 2 (Prochlorperazine if ordered)., PACU/Phase II ondansetron (ZOFRAN) injection 4 mg (CANCELED) 1422 (G iven - Provider: Nora Garcia RN) 4 mg, Intravenous, EVERY 6 HOURS PRN, na usea, vomiting, for 2 Minutes, Starting 03/12/16 at 1415, This is Step 1 of nausea and vomiting management. If nausea not resolved in 15 minutes, go to Step 2 prochlorperazine (COMPAZINE)., Post-procedure oxyCODONE (ROXICODONE) immediate release tablet 5-10 m g 1450 (Given - Provider: Nora Garcia RN) 0205 (Given - Provider: Helen samson RN)0532 (Given - Provider: Kyra Kim RN)0607 (Given - Provider: Kyra Kim RN)1120 (Given - Provider: Smita Adrian, CASH)202 (Given - Provider: Alia Johns RN) 0005 (Given - Provider: Anca steele RN)0341 (Given - Provider: Kyra Kim RN)0656 (Given - Provider: Kyra Kim RN)1425 (Given - Provider: Lois Mathis RN)1608 (G iven - Provider: Negar Robison RN) 5-10 mg, Oral, EVERY 3 HOURS PRN, modera te to severe pain, Starting Fri03/12/16 at 1256, IF CrCl is UNKNOWN start at lowest end of dosing range. Hold while on CHAIR INSPECTOR AND LEVELER or with regular IV opioid dosing., Post-procedure 173 (Given - Provider: Negar Robison RN - Comment: pt requested additional 5 mg)192 (Given - Provider: Negar Robison RN - Comment: pt wanted additional 5mg) prochlorperazine (COMPAZINE) injection 5-10 mg (CANCEL ED) 1944 (Given - Provider: Helen Martinez RN) 5-10 mg, Intravenous, EVERY 6 HOURS PRN, nausea, vomiting, Starting Fri03/12/16 at 1415, This is Step 2 of nausea and vomiting management. If nausea not resolved in 15 minutes, give metoclopramide (REGL AN), if ordered (step 3 of nausea and vomiting management), Post -procedure simethicone (MYLICON) chewable tablet 80 mg (CANCELED) 0659 (Given - Provider: Kyra Kim RN) 0523 (Given - Provider: Kyra Kim RN) 80 mg, Oral, EVERY 6 HOURS PRN, cramping, Starting Fri03/13/16 a t 0647 sodium chloride 0.9% (bottle) irrigation (CANCELED) 11 08 (Given - Provider: Marce Mares MD) PRN, Starting Fri03/12/16 at 1108, Intra-procedure documented in this encounter Additional Health Concerns Assessment Noted Time PHQ-9 Depression Total Score: 19 01/16/2016 7:18 AM CD T documented as of this encounter Care Teams Distiller Relationship Specialty Start Date End Date Bella Sears MD PCP - General General Surgery 02/14/16 04/22/16 Bella Sears MD General Surgery 11/28/14 Tana Peña MD MD Plastic Surgery 10/30/15 [address] [facility] [place] [address] [place] [address] Abbi Cohen MD MD clinical trial assistant 01/11/[address] [place] [address] [address] [place] [address] documented as of this encounter
--- OUTSIDE RECORDS SUMMARY | 2022-04-12 08:20 | XMS_ITS | Encounter Summary ---
:1994 Author Organization [place] Address [facility] [place] [address] Care Team Providers Name Role Phone Bella Sears MD Unavailable Tana Peña MD Unavailable Sofiya Keenan MD Unavailable Carrie Tinsley MD Primary Care Provider [phone] Reason for Visit Reason Comments Surgical Followup hysterectomy Encounter Details Date Type Department Care Team Description 05/16/2016 Office Visit [facility] Sofiya Keenan Status pos t SHADY-BSO [facility] MD [place]loé (Primary Dx) [place] [address] [facility] [address] 300 [facility] [address] [place] [address] 300 [place], [place] (Work) [address] Social History Tobacco Use Types Packs/Day Years Used Date Smoking Tobacco: Light Smoker Cigarettes 0.3 Alcohol Use Standard Drinks/Week Comments Yes 0 (1 standard drink = 0.6 oz pure alcoho l) rarely Sex Assigned at Date Recorded Female 03/20/2020 2:05 PM CDT documented as of this encounter Last Filed Vital Signs Vital Sign Reading Time Taken Comments Blood Pressure 121/81 05/16/2016 10:38 AM MAIL DELIVERER Pulse 70 05/16/2016 10:38 AM MAIL DELIVERER Temperature - - Respiratory Rate - - Oxygen Saturation - - Inhaled Oxygen Concentration - - Weight 69.9 kg (154 lb) 05/16/2016 10:38 AM MAIL DELIVERER Height 162.6 cm (5' 4) 05/16/2016 10:38 AM MAIL DELIVERER Body Mass Index 26.43 05/16/2016 10:38 AM MAIL DELIVERER documented in this encounter Progress Notes Sofiya Keenan MD - 05/16/2016 7:26 AM CST Post-operative Visit Note 05/16/16 Reason for visit: s/p SHADY, BSO for pelvic pain, exposure to testosterone, gender dysphoria S: Patient is a 21 yo nulligravid female transitioning to male who presents today for post-operativevisit s/p SHADY, BSO on 03/12/16 for chronic pelvic pain, exposure to testosterone and gender dysphoriadisorder. Since surgery patient has been well. He has had no bleeding, nor has he had any incision site concerns. He has had some cramping pain around the clitoris, but notes that this is likely due tothe testosterone supplementation that he is taking. Overall no complaints today, very appreciative to have had surgery. Plans to move forward with further surgery after 1st of year for transition. O: Filed Vitals: 05/16/16 1038 BP: 121/81 Pulse: 70 Height: 1.626 m (5' 4) Weight: 69.854 kg (154 lb) General: NAD, A&Ox3 Resp: Non-labored breathing Abdomen: Soft and non tender, no masses or organomegaly Incision: Well healed, clean, dry, intact. Pelvic:External genitalia normal in appearance with slight enlargement of the clitoral mccann. Urethral meatus normal. Vagina has an atrophic appearance secondary to testosterone supplementation. There is a well healed vaginal cuff. No discharge or bleeding noted. Pathology 03/12/16: SPECIMEN(S): Uterus, cervix, bilateral ovaries, bilateral fallopian tubes FINAL DIAGNOSIS: UTERUS, CERVIX, BILATERAL OVARIES AND FALLOPIAN TUBES, TOTAL ABDOMINAL HYSTERECTOMY BILATERAL SALPINGO-OOPHORECTOMY: - Inactive endometrium - Myometrium with no significant histopathologic abnormality - Cervix with atrophic changes - Bilateral fallopian tubes with no significant histopathologic abnormality - Bilateral ovaries with cystic follicles A/P: 21 yo presents for post-operative visit s/p SHADY, BSO 1) Post-operative state: Pablo is healing well after his procedure. He may return to full work andactivity without restriction. I provided a note for work to this effect. He should continue to follow up with us on a yearly basis for exam, sooner if he is having any vaginal symptoms. Scribe Disclosure: I, Pablo Gerard, am serving as a scribe; to document services personally performed by Sofiya Keenan MD -based on data collection and the provider's statements to me. Staff MD Note I appreciate the note above by Pablo Gerard, MS3. I agree with the PFSH and ROS as completed by the MS. The remainder of the encounter was performed by me and scribed by the MS. The scribed note accurately reflects my personal services and the decisions made by me. Sofiya Keenan MD DELIVERER documented in this encounter Nursing Notes Lorrie Sinha - 05/16/2016 10:38 AM CST Chief Complaint Patient presents with ??? Surgical Followup hysterectomy DELIVERER 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 documented as of this encounter Visit Diagnoses Diagnosis Status post SHADY-BSO - Primary Acquired absence of both cervix and uter us documented in this encounter Additional Health Concerns Assessment Noted Time PHQ-9 Depression Total Score: 19 01/16/2016 7:18 AM CD T documented as of this encounter Care Teams Lightning Rod Installer Relationship Specialty Start Date End Date Carrie Tinsley MD PCP - General 04/23/16 12/12/16 [facility] 2019 [place] [address] Bella Sears MD General Surgery 11/28/14 Tana Peña MD MD Plastic Surgery 10/30/[address] [place] [address] 195 [place] [address] Sofiya Keenan MD MD thread machine operator 7/28/[address] [address] documented as of this encounter
--- OUTSIDE RECORDS SUMMARY | 2022-04-12 08:20 | XMS_ITS | Encounter Summary ---
:1994 Author Organization [place] Address [address] [place] [address] Care Team Providers Name Role Phone Bella Sears MD Unavailable Tana Peña MD Unavailable Sofiya Keenan MD Unavailable Carrie Tinsley MD Primary Care Provider [phone] Reason for Visit Reason Onset Date Comments Other 05/20/2016 Billing Code Questio n Encounter Details Date Type Department Care Team Description 05/20/2016 Telephone [facility] Carrie Tinsley Other (Billing Code Medicine Clinic MD Karly Question) [address] [place] [address] [address] [place] [address] [place], [place] [phone] (Wo rk) Social History Tobacco Use Types Packs/Day Years Used Date Smoking Tobacco: Light Smoker Cigarettes 0.3 Alcohol Use Standard Drinks/Week Comments Yes 0 (1 standard drink = 0.6 oz pure alcoho l) rarely Sex Assigned at Date Recorded Female 03/20/2020 2:05 PM CDT documented as of this encounter Miscellaneous Notes Telephone Encounter - Lily Núñez - 06/03/2016 12:05 PM CST Unaware of what surgery this is and where this surgery would take place. I am only able to give quotes on items done at [facility]. Routing to PCP to follow up/provide input. X UNIX ADMINISTRATOR Telephone Encounter - Ericka Moran RN - 05/20/2016 1:54 PM CST Message routed to PCP and Lily to advise. Ericka Moran RN X UNIX ADMINISTRATOR Telephone Encounter - Macho Reyes - 05/20/2016 12:59 PM CST [facility] Family Medicine phone call message- general phone call: Reason for call: Patient is calling to obtain the insurance billing code for top surgery. Please call patient with requested information. Thank you! Return call needed: Yes OK to leave a message on voice mail? Yes Primary language: Dutch Agricultural Engineering Technicians needed? No Call taken on May 20, 2016 at 12:59 PM by Macho Reyes X UNIX ADMINISTRATOR documented in this encounter Plan of Treatment [...] documented as of this encounter Care Teams Spinning Frame Changer Relationship Specialty Start Date End Date Carrie Tinsley MD PCP - General 04/23/16 12/12/16 [facility] [address] [place], [place] [id number] Bella Sears MD General Surgery 11/28/14 Tana Peña MD MD Plastic Surgery 10/30/15 420 [facility] 195 [place] [address] Sofiya Keenan MD MD spot washer 01/11/16 [facility] 300 [place] [address] documented as of this encounter
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
--- OUTSIDE RECORDS SUMMARY | 2022-04-12 08:20 | XMS_ITS | Encounter Summary ---
:1994 Author Organization [place] Address [facility] [place] [address] Care Team Providers Name Role Phone Bella Sears MD Unavailable Tana Peña MD Unavailable Sofiya Keenan MD Unavailable Carrie Tinsley MD Primary Care Provider [phone] Encounter Details Date Type Department Care Team Description 06/20/2016 Medical Correspondence [facility] CARLOS ENRIQUE Johnson LETTER Health Info Mgmt Non-Provider OF SUPPORT FOR Srvcs GENDER CONFIRMATION [address] [place] [address] Social History Tobacco Use Types Packs/Day [...] documented as of this encounter Care Teams Oil Inspector Relationship Specialty Start Date End Date Carrie Tinsley MD PCP - General 04/23/16 12/12/16 [facility] 2019 [place] [address] Bella Sears MD General Surgery 11/28/14 Tana Peña MD MD Plastic Surgery 10/30/15 420 [facility] 195 [place] [address] Sofiya Keenan MD MD english as a second language teacher 01/11/[address] [place] [address] 300 [place] [address] documented as of this encounter
--- OUTSIDE RECORDS SUMMARY | 2022-04-12 08:20 | XMS_ITS | Encounter Summary ---
:1994 Author Organization [place] Address [address] [place] [address] Care Team Providers Name Role Phone Bella Sears MD Unavailable Tana Peña MD Unavailable Sofiya Keenan MD Unavailable Carrie Tinsley MD Primary Care Provider [phone] Reason for Visit Reason Onset Date Comments Other 05/16/2016 Encounter Details Date Type Department Care Team Description 05/16/2016 Telephone [facility] Medicine Carrie Tinsley MD Other Clinic [facility] [address] [place] [address], [address] [place] [id number] [place] [address] [phone] Social History Tobacco Use Types Packs/Day Years Used Date Smoking Tobacco: Light Smoker Cigarettes 0.3 Alcohol Use Standard Drinks/Week Comments Yes 0 (1 standard drink = 0.6 oz pure alcoho l) rarely Sex Assigned at Date Recorded Female 03/20/2020 2:05 PM CDT documented as of this encounter Miscellaneous Notes Telephone Encounter - Ericka Moran RN - 05/20/2016 1:29 PM CST Message routed to PCP. Ericka Moran RN MOBILE RELOCATION ENGINEER Telephone Encounter - Cortney Tracey - 05/20/2016 12:56 PM CST Patient called to inquire about the status of the request below. Informed her that the message has been routed to PCP but there is a clayton period for this to be completed. Please follow up with the patient on the status. Thanks! MOBILE RELOCATION ENGINEER Telephone Encounter - Ericka Moran RN - 05/16/2016 1:17 PM CST Message routed to PCP to write requested letter if appropriate. Ericka Moran RN MOBILE RELOCATION ENGINEER Telephone Encounter - Belkis Velazquez - 05/16/2016 12:50 PM CST [facility] Family Medicine phone call message- general phone call: Reason for call: Patient calling to request letter in support of legal sex and name change. Patient advised that he has started process on his end. Return call needed: Yes - please call when letter is ready to milk pickup truck driver OK to leave a message on voice mail? Yes Primary language: Nepali Supervisor Frame Assembly needed? No Call taken on May 16, 2016 at 12:50 PM by Belkis Velazquez MOBILE RELOCATION ENGINEER documented in this encounter Plan of [...] documented as of this encounter Care Teams Receiving Inspector Relationship Specialty Start Date End Date Carrie Tinsley MD PCP - General 04/23/16 12/12/16 [facility] 2019 [place] [address] Bella Sears MD General Surgery 11/28/14 Tana Peña MD MD Plastic Surgery 10/30/[address] [place] [address] [place] [id number] Sofiya Keenan MD MD instructor psychiatric aide 01/11/[address] [place] [address] 300 [place], [place] [address] documented as of this encounter
--- OUTSIDE RECORDS SUMMARY | 2022-04-12 08:20 | XMS_ITS | Encounter Summary ---
:1994 Author Organization [place] Address [address] [place] [address]. [place] [address] Care Team Providers Name Role Phone Bella Sears MD Unavailable Tana Peña MD Unavailable Sofiya Keenan MD Unavailable Carrie Tinsley MD Primary Care Provider [phone] Debyb Suggs LPN Unavailable Unavailable Encounter Details Date Type Department Care Team Description 11/26/2016 Orders Only General Surgery Tana Peña Gender dysphoria in 9[address] [facility] MD [place] adolescent and adult 4th Floor [address] [place] [address] (Primary Dx) [place], [place] [phone] [place], [place] [phone] [facility] [phone] (Wo rk) Social History Tobacco Use Types [...] Procedures Routine Gender dysphoria in O rdered: 11/26/2016 preop adolescent and adult Scheduled Procedures Name [...] documented as of this encounter Care Teams Documentation Nurse Relationship Specialty Start Date End Date Carrie Tinsley MD PCP - General 04/23/16 12/12/16 [facility] [address] [place], [place] [id number] Bella Sears MD General Surgery 11/28/14 Tana Peña MD MD Plastic Surgery 10/30/15 [address] [facility] [address] [place] [address] Sofiya Keenan MD MD marketing pr intern 01/11/[address] [place] 300 [place] [address] Debby Suggs, SCRAP METAL COLLECTOR SCRAP METAL COLLECTOR Plastic Surgery 11/26/16 documented as of this encounter
--- OUTSIDE RECORDS SUMMARY | 2022-04-12 08:20 | XMS_ITS | Encounter Summary ---
:1994 Author Organization [place] Address [address] [place] [address] Care Team Providers Name Role Phone Bella Sears MD Unavailable Tana Peña MD Unavailable Sofiya Keenan MD Unavailable Carrie Tinsley MD Primary Care Provider [phone] Encounter Details Date Type Department Care Team Description 07/23/2016 Telephone [facility] Carrie Tinsley MD [place] [address], [address] [place] [address] [place] [address] [phone] Social History Tobacco Use Types Packs/Day Years Used Date Smoking Tobacco: Light Smoker Cigarettes 0.3 Alcohol Use Standard Drinks/Week Comments Yes 0 (1 standard drink = 0.6 oz pure alcoho l) rarely Sex Assigned at Date Recorded Female 03/20/2020 2:05 PM CDT documented as of this encounter Miscellaneous Notes Telephone Encounter - Janet Eddy CMA - 07/23/2016 2:52 PM DIE FORGER The patient called back. I advised him of the nurses notes and to follow up in one month. Patient understood and will call back to make appt FORGER Telephone Encounter - Ericka Moran RN - 07/23/2016 2:20 PM CST Attempted to reach patient, unable to reach. Left VM requesting callback. If patient calls back, please inform him per Dr. Tinsley, his lab results from 07/12 show elevated testosterone levels and he should decrease his testosterone injection dose from 70 mg (0.35 mL) to 60 mg (0.3 mL) once per week. He should also follow up in one month to recheck lab levels. Please document and close encounter. Ericka Moran RN FORGER Telephone Encounter - Carrie Tinsley MD - 07/23/2016 12:34 PM DIE FORGER Received lab results from 07/12/16 showing elevated testosterone level of 1037ng/dl. Attempted to reach patient, unsuccessful. Message routed to triage nurse with instructions to lower testosterone cypionate dose from 70mg weekly to 60mg weekly. Plan to recheck levels in 1 month. Carrie Tinsley MD [facility] FORGER documented in this encounter Plan of Treatment [...] documented as of this encounter Care Teams Ash Pit Worker Relationship Specialty Start Date End Date Carrie Tinsley MD PCP - General 04/23/16 12/12/16 [facility] [address] [place] [address] Bella Sears MD General Surgery 11/28/14 Tana Peña MD MD Plastic Surgery 10/30/[address] [place] [address] Sofiya Keenan MD MD manager control 01/11/16 [address] [facility] 300 [place] [address] documented as of this encounter
--- OUTSIDE RECORDS SUMMARY | 2022-04-12 08:20 | XMS_ITS | Encounter Summary ---
:1994 Author Organization [place] Address [address] [place] [address] Care Team Providers Name Role Phone Bella Sears MD Unavailable Tana Peña MD Unavailable ReeSofiya mullins MD Unavailable Carrie Tinsley MD Primary Care Provider [phone] Debby Suggs LPN Unavailable Unavailable Encounter Details Date Type Department Care Team Description 11/26/2016 Orders Only General Surgery Tana Peña Factor V deficiency (H) (Carly aguirre Dx); 909 [facility] MD [place] No contraindication to deep vein thrombo sis (DVT) prophylaxis 4th Floor 420 [facility] 195 [address] [place], [place] [phone] [address] Social History Tobacco Use Types Packs/Day Years [...] as of this encounter Visit Diagnoses Diagnosis 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 No contraindication to deep vein thrombo sis (DVT) prophylaxis documented in this encounter Additional Health Concerns Assessment Noted Time PHQ-9 Depression Total Score: 19 01/16/2016 7:18 AM CD T documented as of this encounter Care Teams Converter Operator Relationship Specialty Start Date End Date Carrie Tinsley MD PCP - General 04/23/16 12/12/16 [facility] [address] [place] [address] Bella Sears MD General Surgery 11/28/14 Tana Peña MD MD Plastic Surgery 10/30/15 420 [facility] 195 [place] [address] Sofiya Keenan MD MD caterers helper 01/11/[address] [facility] 300 [place] [address] Debby Suggs, FLASH WELDING MACHINE OPERATOR FLASH WELDING MACHINE OPERATOR Plastic Surgery 11/26/16 documented as of this encounter
--- OUTSIDE RECORDS SUMMARY | 2022-04-12 08:20 | XMS_ITS | Encounter Summary ---
:1995 Author Organization [place] Address [address] [place] [address]. [place] [address] Care Team Providers Name Role Phone Bella Sears MD Unavailable Tana Peña MD Unavailable ReeSofiya mullins MD Unavailable Carrie Tinsley MD Primary Care Provider [phone] Reason for Visit Reason Onset Date Comments Call To Schedule Appointment 08/20/2016 returned ca ll to schedule appointment Encounter Details Date Type Department Care Team Description 08/20/2016 Telephone Health Psychiatric and Tana Peña Call To Schedule Reconstructive Surge ry MD [facility] Appointment (returned 9 [facility] [address] [facility] call to schedule 4th Floor [facility] 195 appointment) [place] [address] [phone] Social History Tobacco Use Types Packs/Day Years Used Date Smoking Tobacco: Light Smoker Cigarettes 0.3 Alcohol Use Standard Drinks/Week Comments Yes 0 (1 standard drink = 0.6 oz pure alcoho l) rarely Sex Assigned at Date Recorded Female 03/20/2020 2:05 PM CDT documented as of this encounter Miscellaneous Notes Telephone Encounter - Debby Suggs LPN - 08/20/2016 10:53 AM CST Returned call to patient to schedule pre op visit and post op appointment with Dr. Peña. Left message for patient to call nurse back. NISTRATIVE SUPPORT MANAGER Telephone Encounter - Debby Suggs LPN - 08/20/2016 10:53 AM CST ----- Message from Rachel Bermudez sent at 08/19/2016 7:29 AM ADMINISTRATIVE SUPPORT MANAGER ----- Regarding: Pt calling asking for a call back Contact: Pt calling asking for a call back about clarification on needing a prior apt with Dr. Peña to go over Pre op before surgery. Per pt on the paperwork it says that there is an apt that should be scheduled prior to surgery, pt is unsure if there should be an apt or if he should come in early on the day of the surgery to go over it. Pt also mentioned that he left a VM for Mary and has not heard back. Pt can be reached at [phone] Thank You, Rachel Please DO NOT send this message and/or reply back to sender. Call Center Representatives DO NOT respond to messages. NISTRATIVE SUPPORT MANAGER documented in this encounter Plan of [...] as of this encounter Care Teams Manager [employer] Retail Relationship Specialty Start Date End Date Carrie Tinsley MD PCP - General 04/23/16 12/12/16 [facility] [address] [place], [place] [phone] Bella Sears MD General Surgery 11/28/14 Tana Peña MD MD Plastic Surgery 10/30/[address] [place] [address] [address] [place], [place] [phone] Sofiya Keenan MD MD special needs teacher 01/11/[address] [place] [address] 300 [place] [address] documented as of this encounter
--- OUTSIDE RECORDS SUMMARY | 2022-04-12 08:20 | XMS_ITS | Encounter Summary ---
:1995 Author Organization [place] Address [address] [place] [address] Care Team Providers Name Role Phone Bella Sears MD Unavailable Tana Peña MD Unavailable ReeSofiya mullins MD Unavailable Carrie Tinsley MD Primary Care Provider [phone] Reason for Visit Reason Comments Follow Up pre op visit Encounter Details Date Type Department Care Team Description 11/19/2016 [facility] Tana Peña dysphoria in Reconstructive Surge ry MD [place] adolescent and adult [address] (Primary Dx) 4th Floor [facility] 195 [place] [id number] Social History Tobacco Use Types Packs/Day Years Used Date Smoking Tobacco: Light Smoker Cigarettes 0.3 Alcohol Use Standard Drinks/Week Comments Yes 0 (1 standard drink = 0.6 oz pure alcoho l) rarely Sex Assigned at Date Recorded Female 03/20/2020 2:05 PM CDT documented as of this encounter Last Filed Vital Signs Vital Sign Reading Time Taken Comments Blood Pressure 119/85 11/19/2016 10:42 AM CDT Pulse 71 11/19/2016 10:42 AM CDT Temperature 36.7 ??C (98 ??F) 11/19/2016 10:42 AM CDT Respiratory Rate - - Oxygen Saturation 98% 11/19/2016 10:42 AM CDT Inhaled Oxygen Concentration - - Weight 65.6 kg (144 lb 11.2 oz) 11/19/2016 10:42 AM CDT Height 162.6 cm (5' 4) 11/19/2016 10:42 AM CDT Body Mass Index 24.84 11/19/2016 10:42 AM CDT documented in this encounter Progress Notes Tana Peña MD - 11/19/2016 10:30 AM CDT PLASTICS PREOP This is a 21-year-old trans male who is scheduled for bilateral subcu mastectomies with nipple grafts on 11/27. His H&P is done and he does not require a preoperative mammogram due to his size and age. He is here today with his mom who has some serious concerns about their family history of PEs. She herself has had multiple episodes in the past month to the point where she is having some cardiac problems with it, but apparently both the mom and her family as well as the patient have had a negative genetic workup. With that being said, Jamin's primary is still very concerned about the possible risk of clot formation and PEs despite the negative workup. While we do use sequential compression devices on lower extremities preop, intraop and postop, I have asked him to hold his testosterone for this week prior to surgery and we will also be giving him a dose of Lovenox in the preoperative area andthen a week of postoperative Lovenox. We had a long discussion about what to expect as far as pre, intraop and postop events along with postop limitations. We also talked about possible risks and complications of the procedure and due to the patient's Asperger traits, I am not sure exactly how much ofall this sunk in. Unfortunately, his mom became a bit squeamish during our discussion and had to leave the room. We did talk about drain management and if his mom is unable to do that, the patient states he does have a RN who is a neighbor who has helped him in the past with shots, etc. His main concern after showing me a picture off of the internet was that he have a flat appearing chest that looks masculine and I assured him that we would do our very best to achieve that similar result. We will doeverything we can to limit his possible risks and see him on the . Approximately 30 minutes was spent with patient, all of which was spent trying to educate him about the upcoming procedure as well as the possible risks, complications and what we will do to try and mitigate those. documented in this encounter Nursing Notes Debby Suggs LPN - 11/19/2016 10:30 AM CDT Chief Complaint Patient presents with ??? Follow Up For pre op visit Vitals: 11/19/16 1042 BP: 119/85 BP Location: Left arm Patient Position: Chair Cuff Size: Adult Regular Pulse: 71 Temp: 98 ??F (36.7 ??C) TempSrc: Oral SpO2: 98% Weight: 144 lb 11.2 oz Height: 5' 4 Body mass index is 24.84 kg/(m^2). Debby Suggs documented in this encounter [...] documented as of this encounter Care Teams Steel Rule Die Maker Relationship Specialty Start Date End Date Carrie Tinsley MD PCP - General 04/23/16 12/12/16 [facility] [address] [place] [address] Bella Sears MD General Surgery 11/28/14 Tana Peña MD MD Plastic Surgery 10/30/15 420 [facility] 195 [place], [place] [phone] Sofiya Keenan MD MD deputy sheriff 01/11/[address] [place] [address] [place], [place] [phone] documented as of this encounter
--- OUTSIDE RECORDS SUMMARY | 2022-04-12 08:20 | XMS_ITS | Encounter Summary ---
:1995 Author Organization [facility] Address [address] [place] [address] Care Team Providers Name Role Phone Bella Sears MD Unavailable Tana Peña MD Unavailable Sofiya Keenan MD Unavailable Carrie Tinsley MD Primary Care Provider [phone] Reason for Visit Reason Comments RECHECK Encounter Details Date Type Department Care Team Description 06/17/2016 Office Visit [facility]'s Family Carrie Tinsley Gender dysphoria in adolescent and adult (Primary Dx); Medicine Clinic MD Karly Oral herpes simplex infection [address] [place] [address] [facility] [address] [place] [address]40 [address] [place], [place] [phone] (Wo rk) Social History Tobacco Use Types Packs/Day Years Used Date Smoking Tobacco: Light Smoker Cigarettes 0.3 Alcohol Use Standard Drinks/Week Comments Yes 0 (1 standard drink = 0.6 oz pure alcoho l) rarely Sex Assigned at Date Recorded Female 03/20/2020 2:05 PM CDT documented as of this encounter Last Filed Vital Signs Vital Sign Reading Time Taken Comments Blood Pressure 131/82 06/17/2016 1:44 PM ABRADING MACHINE TENDER Pulse 103 06/17/2016 1:44 PM ABRADING MACHINE TENDER Temperature 36.6 ??C (97.9 ??F) 06/17/2016 1:44 PM ABRADING MACHINE TENDER Respiratory Rate 18 06/17/2016 1:44 PM ABRADING MACHINE TENDER Oxygen Saturation 95% 06/17/2016 1:44 PM ABRADING MACHINE TENDER Inhaled Oxygen Concentration - - Weight 70.3 kg (155 lb) 06/17/2016 1:44 PM ABRADING MACHINE TENDER Height - - Body Mass Index 26.61 05/16/2016 10:38 AM ABRADING MACHINE TENDER documented in this encounter Progress Notes Skip Bianchi MD - 06/17/2016 4:22 PM CST Preceptor Attestation: Patient seen and discussed with the resident. Assessment and plan reviewed with resident and agreedupon. Supervising Physician: Skip Bianchi MD [facility] DING MACHINE TENDER Carrie Tinsley MD - 06/17/2016 2:04 PM CST LISA Shah is a 21 year old Female to Male individual presents today for: HRT He also reports oral HSV outbreak not improving Refills of meds needed? Yes On hormones? Yes Due for labs? Yes. He self administer shots on Mondays. ---- Past Surgical History Procedure Laterality Date ??? Colonoscopy ??? Greer teeth removed ??? Hysterectomy total abdominal, bilateral salpingo-oophorectomy, combined Bilateral 03/12/2016 Procedure: COMBINED HYSTERECTOMY TOTAL ABDOMINAL, SALPINGO-OOPHORECTOMY; Surgeon: Sofiya Keenan MD; Location: [facility] OR Patient Active Problem List Diagnosis ??? Bipolar affective disorder (H) ??? HSV (herpes simplex virus) infection ??? Gender dysphoria ??? History of psychiatric hospitalization ??? Personal history of tobacco use, presenting hazards to health ??? Acne vulgaris ??? Migraine headache ??? Mixed hyperlipidemia ??? Autism ??? S/P hysterectomy ??? Status post SHADY-BSO Current Outpatient Prescriptions Medication Sig Dispense Refill ??? testosterone cypionate (DEPOTESTOTERONE CYPIONATE) 200 MG/ML injection Inject 0.35 mLs (70 mg) into the muscle once a week 10 mL 0 ??? propranolol (INDERAL LA) 80 MG capsule Take 1 capsule (80 mg) by mouth daily 30 capsule 3 ??? acetaminophen (TYLENOL) 325 MG tablet Take 2 tablets (650 mg) by mouth every 4 hours as needed for other (surgical pain) 100 tablet 1 ??? polyethylene glycol (MIRALAX/GLYCOLAX) packet Take 17 g by mouth daily 30 packet 0 ??? Calcium Citrate 200 MG TABS Take 1 tablet by mouth daily 120 tablet 11 ??? Cholecalciferol (VITAMIN D) 2000 UNITS tablet Take 2,000 Units by mouth daily 100 tablet 11 ??? clindamycin (CLEOCIN T) 1 % external solution Apply topically 2 times daily 60 mL 11 ??? hydrOXYzine (ATARAX) 25 MG tablet Take 1-2 tablets (25-50 mg) by mouth every 6 hours as needed for anxiety 60 tablet 1 ??? nicotine (NICODERM CQ) 7 MG/24HR patch 2h hr Place 1 patch onto the skin every 24 hours 30 patch3 ??? Syringe/Needle, Disp, 22G X 1-1/2 1 ML MISC 1 each every 7 days 20 each 6 ??? Syringe/Needle, Disp, 18G X 1 1 ML MISC 1 each every 7 days 20 each 6 ??? insulin syringe 31G X 5/16 0.5 ML MISC 1 applicator once a week 100 each 3 ??? [DISCONTINUED] testosterone cypionate (DEPOTESTOTERONE CYPIONATE) 200 MG/ML injection Inject 0.4mLs (80 mg) into the muscle once a week for 25 doses 10 mL 0 ??? tretinoin (RETIN-A) 0.025 % cream Spread a pea size amount into affected area topically at bedtime. Use sunscreen SPF>20. 45 g 11 ??? Sharps Container MISC Use each week with sharps 1 each 1 ??? VALACYCLOVIR HCL PO Take 500 mg by mouth No Known Allergies No results found for this or any previous visit (from the past 24 hour(s)). Review of Systems: General ?? Fat redistribution: no ?? Weight change: no?? HEENT ?? Voice change: Yes, deeper ? Cardiovascular (CV) ?? Chest Pains: no ?? Shortness of breath: no?? Chest ?? Decreased exercise tolerance:?? no ?? Breast changes/development: smaller ? Gastrointestinal (GI) ?? Abdominal pain: no ?? Change in appetite: no?? Skin ?? Acne or oily skin: yes, patient not concerned ?? Change in hair: yes, some mild thinning, but he is not concerned? Genitourinary () ?? Abnormal vaginal bleeding: no ? Decreased spontaneous erections: not applicable ?? Change in libido: increased ? New sexual partners: no Musculoskeletal ?? Leg pain or swelling: no ? Psychiatric (Psych) ?? Depression: no ?? Anxiety/Panic: no ?? Mood:?? okay? Physical Exam: Filed Vitals: 06/17/16 1344 BP: 131/82 Pulse: 103 Temp: 97.9 ??F (36.6 ??C) TempSrc: Oral Resp: 18 Weight: 155 lb (70.308 kg) SpO2: 95% BMI= Body mass index is 26.59 kg/(m^2). Wt Readings from Last 10 Encounters: 06/17/16 155 lb (70.308 kg) 05/16/16 154 lb (69.854 kg) 03/14/16 154 lb 1.6 oz (69.899 kg) 02/01/16 152 lb 4.8 oz (69.083 kg) 01/04/16 153 lb (69.4 kg) 09/28/15 163 lb 9.6 oz (74.208 kg) 09/05/15 163 lb 9.6 oz (74.208 kg) 07/26/15 163 lb 3.2 oz (74.027 kg) 06/13/15 165 lb (74.844 kg) 05/25/15 163 lb 12.8 oz (74.299 kg) Appearance: Male appearance and dress GENERAL:: healthy, alert and no distress EYES: Eyes grossly normal to inspection HENT: ear canals normal, Nose normal NECK: no adenopathy, no asymmetry, no masses, and thyroid normal to palpation, supple RESP: No respiratory distress CV: regular rates and rhythm, normal S1 S2, and no murmur MS: extremities normal- no gross deformities noted, no edema SKIN: right perioral vesicular lesions Psych: Alert and oriented times 3; coherent speech, normal rate and volume, able to articulate logical thoughts, no tangential thoughts, no hallucinations or delusions. No suicidal or homicidal ideations. Affect: Appropriate/mood-congruent Labs: Orders Only on 05/15/2016 Component Date Value Ref Range Status ??? Testosterone Total 05/15/2016 1043* 8 - 60 ng/dL Final Comment: This test was developed and its performance characteristics determined by the [facility]. It has not been cleared or approved by the FDA. The laboratory is regulated under CLIA as qualified to perform high-complexity testing. This test is used for clinical purposes. It should not be regarded as investigational or for research. Assessment and Plan Jazzmine was seen today for recheck. Diagnoses and all orders for this visit: Gender dysphoria Started on hrt 03/23/2015. His last Testosterone level was supratherapeutic range at 1043ng/dl. His dose was subsequently decreased to testosterone cypionate 70mg IM weekly. Will recheck testosterone level at midcycle on or friday. His mental health remains stable without mood or behavioral changes. He denies SI or HI. Advised to notify provider is he notices any changes with mood. Plan to check routine labs for further evaluation - Testosterone total; Future - Syringe/Needle, Disp, 22G X 1-1/2 1 ML MISC; 1 each every 7 days - Syringe/Needle, Disp, 18G X 1 1 ML MISC; 1 each every 7 days - testosterone cypionate (DEPOTESTOTERONE CYPIONATE) 200 MG/ML injection; Inject 0.35 mLs (70 mg) into the muscle once a week - Hepatic Panel - CBC with Diff Plt - Lipid [place] - Glucose Osteoporosis eval/prevention addressed: Yes. Exercise 150min per week recommended. - Calcium Citrate 200 MG TABS; Take 1 tablet by mouth daily - Cholecalciferol (VITAMIN D) 2000 UNITS tablet; Take 2,000 Units by mouth daily Oral herpes simplex infection Counseled patient on ways to prevent transmission - acyclovir (ZOVIRAX) 5 % ointment; Apply topically 6 times daily Follow up: Follow up in 6 months. Results by mychart Questions were elicited and answered. There are no discontinued medications. Carrie Tinsley MD [facility] DING MACHINE TENDER 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 documented as of this encounter Procedures Procedure Name Priority Date/Time Associated Diagnosis Comme nts HEPATIC PANEL Routine 06/17/2016 2:39 PM Gender dysphoria in R esults for this (LABDAQ) ABRADING MACHINE TENDER adolescent and adult procedu re are in the results section. GLUCOSE (LABDAQ) Routine 06/17/2016 2:39 PM Gender dysphoria i n Results for this ABRADING MACHINE TENDER adolescent and adult procedu re are in the results section. CBC WITH DIFF PLT Routine 06/17/2016 2:39 PM Gender dysphoria in Results for this (LABDAQ) ABRADING MACHINE TENDER adolescent and adult procedu re are in the results section. LIPID PANEL Routine 06/17/2016 2:39 PM Gender dysphoria in Re sults for this (LABDAQ) ABRADING MACHINE TENDER adolescent and adult procedu re are in the results section. documented in this encounter Results Testosterone total (2017 9:48 AM ABRADING MACHINE TENDER) Analysis Performed At Patho logist Time Signature Testosterone 552 240 - 950 05/11/2017 [facility] Total ng/dL 9:24 AM [facility] Comment: This test was developed and its performa nce characteristics determined by the [facility]. It has not been [...] / 2017 9:48 AM 05/07 (specimen) Unknown ABRADING MACHINE TENDER 11:56 AM ABRADING MACHINE TENDER Skip Bianchi MD LAB - BLOOD ORDERABLES Performing Organization Address City/State/ZIP Code Phon e Number [facility] [address] [place] [address] [facility] Glucose (06/17/2016 2:39 PM ABRADING MACHINE TENDER) P athologist Signature Glucose 87.0 70.0 - 99.0 [facility] mg'dL MEDICINE LABDAQ Specimen Anatomical Collection Method Collection Time Receive d Time (Source) Location / / Volume Laterality Blood specimen VENOUS BLOOD / 06/17/2016 2:39 PM 06/17 2:39 (specimen) Unknown ABRADING MACHINE TENDER PM ABRADING MACHINE TENDER Skip Bianchi MD LAB - LABDAQ Performing Organization Address City/[facility]/ZIP Code Phon e Number [place] [address] [place] [address] LABDAQ (ABNORMAL) Lipid [place] (06/17/2016 2:39 PM ABRADING MACHINE TENDER) [facility] gist Method Time Signature Cholesterol 255.0 (H) 0.0 - [place] 200.0 FAMILY mg/dL MEDICINE LABDAQ Cholesterol/HDL 7.9 (H) 0.0 - 5.0 [place] Ratio FAMILY MEDICINE LABDAQ HDL Cholesterol 32.1 (L) >40.0 [place] mg/dL FAMILY MEDICINE [facility] LDL Cholesterol 163 (H) 0 - 129 [place] Calculated mg/dL FAMILY MEDICINE LABDAQ Triglycerides 299.8 (H) 0.0 - [place] 150.0 FAMILY mg/dL MEDICINE LABDAQ VLDL Cholesterol 60.0 (H) 7.0 - [place] 32.0 FAMILY mg/dL MEDICINE LABDAQ Specimen Anatomical Collection Method Collection Time Receive d Time (Source) Location / / Volume Laterality Blood specimen VENOUS BLOOD / 06/17/2016 2:39 PM 06/17 2:39 (specimen) Unknown ABRADING MACHINE TENDER PM ABRADING MACHINE TENDER Skip Bianchi MD LAB - LABDAQ Performing Organization Address City/State/ZIP Code Phon e Number [facility] [address] [place] [address] 407 LABDAQ (ABNORMAL) CBC with Diff Plt (06/17/2016 2:39 PM ABRADING MACHINE TENDER) Analysis Performed At [facility] logist Time Signature WBC 6.3 4.0 - 11.0 [place] K/uL FAMILY MEDICINE LABDAQ Lymphocytes # 2.3 0.8 - 5.3 [place] K/uL FAMILY MEDICINE LABDAQ % Lymphocytes 36.4 20.0 - [place] 48.0 %L FAMILY MEDICINE LABDAQ Mid # 0.5 0.0 - 2.2 [place] K/uL FAMILY MEDICINE LABDAQ Mid % 8.1 0.0 - 20.0 [place] %M FAMILY MEDICINE LABDAQ GRANULOCYTES # 3.5 1.6 - 8.3 [place] K/uL FAMILY MEDICINE LABDAQ % Granulocytes 55.5 40.0 - [place] 75.0 %G [facility]INE LABDAQ RBC 5.57 (H) 3.80 - [place] 5.20 M/uL FAMILY MEDICINE LABDAQ Hemoglobin 16.4 (H) 11.7 - [place] 15.7 g/dL FAMILY MEDICINE LABDAQ Hematocrit 51.5 (H) 35.0 - [place] 47.0 % [facility]INE LAB[facility]Q MCV 92.5 78.0 - [place] 100.0 fL [facility]INE LAB[facility]Q MCH 29.4 26.5 - [place] 35.0 pg FAMILY MEDICINE LABDAQ MCHC 31.8 (L) 32.0 - [place] 36.0 g/dL FAMILY MEDICINE LABDAQ Platelets 239.0 150.0 - [place] 450.0 K/uL FAMILY MEDICINE LABDAQ Specimen Anatomical Collection Method Collection Time Receive d Time (Source) Location / / Volume Laterality Blood specimen VENOUS BLOOD / 06/17/2016 2:39 PM 06/17 2:39 (specimen) Unknown ABRADING MACHINE TENDER PM ABRADING MACHINE TENDER Skip Bianchi MD LAB - LABDAQ Performing Organization Address City/[facility] Phon e Number [facility] [address] [address] LABDAQ (ABNORMAL) Hepatic Panel (06/17/2016 2:39 PM ABRADING MACHINE TENDER) [facility] Method Time Signature Albumin 4.2 3.8 - 5.0 [place] mg/dL FAMILY MEDICINE LABDAQ Alkaline 48.8 31.7 - [place] Phosphatase 110.5 U/L FAMILY MEDICINE LABDAQ ALT 57.6 (H) 0.0 - [place] 45.0 U/L FAMILY MEDICINE LABDAQ AST 123.9 (H) 0.0 - [place] 45.0 U/L FAMILY MEDICINE LABDAQ Bilirubin Direct 0.2 0.1 - 0.3 [place] mg/dL FAMILY MEDICINE LABDAQ Bilirubin Total 0.8 0.2 - 1.3 [place] mg/dL FAMILY MEDICINE LABDAQ Protein Total 7.5 6.8 - 8.8 [place] g/dL FAMILY MEDICINE LABDAQ Specimen Anatomical Collection Method Collection Time Receive d Time (Source) Location / / Volume Laterality Blood specimen VENOUS BLOOD / 06/17/2016 2:39 PM 06/17 2:39 (specimen) Unknown ABRADING MACHINE TENDER PM ABRADING MACHINE TENDER Skip Bianchi MD LAB - LABDAQ Performing Organization Address City/[facility] Phon e Number [facility] [address] [address] LABDAQ documented in this encounter Visit Diagnoses Diagnosis Gender dysphoria in adolescent and adult - Primary Oral herpes simplex infection Herpetic gingivostomatitis documented in this encounter Additional Health Concerns Assessment Noted Time PHQ-9 Depression Total Score: 19 01/16/2016 7:18 AM CD T documented as of this encounter Care Teams Mixer Operator Helper Hot Metal Relationship Specialty Start Date End Date Carrie Tinsley MD PCP - General 04/23/16 12/12/16 [facility] 2019 [place], [place] [phone] Bella Sears MD General Surgery 11/28/14 Tana Peña MD MD Plastic Surgery 10/30/[address] [place] [address] 195 [place], [place] [phone] Sofiya Keenan MD MD print manager 01/11/16 606 24[facility] [[email or web address] [address] [place], [place] [phone] documented as of this encounter
--- OUTSIDE RECORDS SUMMARY | 2022-04-12 08:20 | XMS_ITS | Encounter Summary ---
:1995 Author Organization [place] Address [address] [place] [address] Care Team Providers Name Role Phone Bella Sears MD Unavailable Tana Peña MD Unavailable Sofiya Keenan MD Unavailable Carrie Tinsley MD Primary Care Provider [phone] Reason for Visit Reason Onset Date Comments Refill Request 04/23/2016 Encounter Details Date Type Department Care Team Description 04/23/2016 Telephone [facility] Carrie Tinsley MD Refill Request Clinic [place] [address] [phone] Social History Tobacco Use Types Packs/Day Years Used Date Smoking Tobacco: Light Smoker Cigarettes 0.3 Alcohol Use Standard Drinks/Week Comments Yes 0 (1 standard drink = 0.6 oz pure alcoho l) rarely Sex Assigned at Date Recorded Female 03/20/2020 2:05 PM CDT documented as of this encounter Miscellaneous Notes Telephone Encounter - Carrie Tinsley MD - 04/23/2016 2:00 PM PERSONAL CARE HOME ADMINISTRATOR Propanolol refilled for migraine headache prophylaxis Carire Tinsley MD [facility] ONAL CARE HOME ADMINISTRATOR Telephone Encounter - Ericka Moran RN - 04/23/2016 1:44 PM CST Message routed to PCP at high priority to refill. PCP also in clinic and note left with PCP to complete VALENTIN. Ericka Moran RN ONAL CARE HOME ADMINISTRATOR Telephone Encounter - Belkis Velazquez - 04/23/2016 1:27 PM CST [facility] Family Medicine phone call message- patient requesting a refill: Full Medication Name: propranolol (INDERAL LA) 80 MG capsule Dose: Take 1 capsule (80 mg) by mouth daily Pharmacy confirmed as [facility] - [place], [place] - [address] [facility] [address] : Yes Additional Comments: Patient advised has been waiting for refill; spoke with someone at [facility] this morning. Patient also noted has been out of med for about a week and has been waking up with migraine headaches due running out of med. OK to leave a message on voice mail? Yes Primary language: Eritrean Program Therapist needed? 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 documented as of this encounter Visit Diagnoses Diagnosis Migraine without aura and without status migrainosus, not intractable - Primary Migraine without aura, without mention o f intractable migraine without mention of status migrainosus documented in this encounter Additional Health Concerns Assessment Noted Time PHQ-9 Depression Total Score: 19 01/16/2016 7:18 AM CD T documented as of this encounter Care Teams Sales Attendant Building Materials Relationship Specialty Start Date End Date Carrie Tinsley MD PCP - General 04/23/16 12/12/16 [facility] [address] [place] [address] Bella Sears MD General Surgery 11/28/14 Tana Peña MD MD Plastic Surgery 10/30/15 420 [facility] 195 [place] [address] Sofiya Keenan MD MD sales supervisor 01/11/16 [facility] 300 [place] [address] documented as of this encounter
--- OUTSIDE RECORDS SUMMARY | 2022-04-12 08:20 | XMS_ITS | Encounter Summary ---
:1995 Author Organization [place] Address [address] [place] [address] Care Team Providers Name Role Phone Bella Sears MD Unavailable Tana Peña MD Unavailable Sofiya Keenan MD Unavailable Carrie Tinsley MD Primary Care Provider [phone] Reason for Visit Reason Onset Date Comments Results 05/20/2016 Encounter Details Date Type Department Care Team Description 05/20/2016 Telephone [facility] Carrie Tinsley MD Results Clinic [facility] [address] [place] [address], [address] [place] [id number] [place] [address] [phone] Social History Tobacco Use Types Packs/Day Years Used Date Smoking Tobacco: Light Smoker Cigarettes 0.3 Alcohol Use Standard Drinks/Week Comments Yes 0 (1 standard drink = 0.6 oz pure alcoho l) rarely Sex Assigned at Date Recorded Female 03/20/2020 2:05 PM CDT documented as of this encounter Miscellaneous Notes Telephone Encounter - Ericka Moran RN - 05/21/2016 11:59 AM CST Patient returned call, informed of elevated testosterone levels and instructed to decrease dose to 70 mg , equal to 0.35 mL. Patient verbalized understanding. Ericka Moran RN OMER CONTACT REPRESENTATIVE Telephone Encounter - Ericka Moran RN - 05/21/2016 10:56 AM CST Attempted to reach patient, unable to reach. Letter printed and left at [facility] for patient to worm picker. Patient will need to follow up with plastic surgeon for billing code for top surgery as neither [facility] supervisor policy change clerks, PCP, or nurse have that information. Please transfer to RN to discuss lab results. Patient's testosterone level was elevated and dose will need to be decreased to 70 mg (was previously 80 mg). Ericka Moran RN OMER CONTACT REPRESENTATIVE Telephone Encounter - Carrie Tinsley MD - 05/21/2016 10:50 AM CUSTOMER CONTACT REPRESENTATIVE I do not know the billing code for mastectomy, patient will need to follow up with plastic surgeon for details Carrie Tinsley MD [facility] OMER CONTACT REPRESENTATIVE Telephone Encounter - Carrie Tinsley MD - 05/21/2016 10:44 AM CUSTOMER CONTACT REPRESENTATIVE Testosterone level is elevated above the recommended range, Please advise patient to reduce testosterone IM from 80mg to 70mg weekly. Letter for name and sex change written, routed to triage nurse. Carrie Tinsley MD [facility] OMER CONTACT REPRESENTATIVE Telephone Encounter - Ericka Moran RN - 05/20/2016 1:56 PM CST Message routed to PCP to place lab letter or result comment with interpretation of lab results. Ericka Moran RN OMER CONTACT REPRESENTATIVE Telephone Encounter - Cortney Tracey - 05/20/2016 12:55 PM CST [facility] Family Medicine phone call message- patient requesting results: Test: Lab Date of test: 05/15/2016 Additional Comments: Patient is requesting a call back with his lab result from the date above. States there has been no follow up. Thanks! OK to leave a message on voice mail? Yes Primary language: Slovak Director Enterprise Data Architecture needed? No Call taken on May 20, 2016 at 12:55 PM by Cortney Tracey OMER CONTACT REPRESENTATIVE documented in this encounter Plan of Treatment [...] documented as of this encounter Care Teams Senior Data Mining Analyst Relationship Specialty Start Date End Date Carrie Tinsley MD PCP - General 04/23/16 12/12/16 [facility] [address] [place], [place] [phone] Bella Sears MD General Surgery 11/28/14 Tana Peña MD MD Plastic Surgery 10/30/[address] [place] [address] 195 [place], [place] [phone] Sofiya Keenan MD MD mattress packer 01/11/16 [facility] 300 [place] [address] documented as of this encounter
--- OUTSIDE RECORDS SUMMARY | 2022-04-12 08:20 | XMS_ITS | Encounter Summary ---
:1994 Author Organization [place] Address [facility] [place] [address] Care Team Providers Name Role Phone Bella Sears MD Unavailable Tana Peña MD Unavailable Sofiya Keenan MD Unavailable Bella Sears MD Primary Care Provider [phone] Reason for Visit Reason Onset Date Comments *-*INCOMING RECORDS*-* 02/22/2016 Encounter Details Date Type Department Care Team Description 02/22/2016 Telephone [facility] Women's Nurse, [facility] *-*INCOMING RECORDS*-* Clinic [place] [address] [facility] Professional Bldg [facility] [address] [address] [place] [phone] Social History Tobacco Use Types Packs/Day Years Used Date Smoking Tobacco: Light Smoker Cigarettes 0.3 Alcohol Use Standard Drinks/Week Comments Yes 0 (1 standard drink = 0.6 oz pure alcoho l) Sex Assigned at Date Recorded Female 03/20/2020 2:05 PM CDT documented as of this encounter Miscellaneous Notes Telephone Encounter - Kristi Moya RN - 02/27/2016 1:00 PM CDT Pre-op paperwork received and Nurse had them priority scanned into chart. Will place back on Dr. Keenan's desk once scanned. Telephone Encounter - Symone Benitez CMA - 02/22/2016 3:09 PM CDT Received records from [facility] regarding pt. Left on 's desk on 02/22/16. documented in this encounter Plan of Treatment [...] documented as of this encounter Care Teams Automotive Service Technician Relationship Specialty Start Date End Date Bella Sears MD PCP - General General Surgery 02/14/16 04/22/16 Bella Sears MD General Surgery 11/28/14 Tana Peña MD MD Plastic Surgery 10/30/15 [address] [facility] [address] [place] [address] Sofiya Keenan MD MD souvenir street vendor 01/11/[address] [place] [address] [place], [place] [phone] documented as of this encounter
--- OUTSIDE RECORDS SUMMARY | 2022-04-12 08:20 | XMS_ITS | Encounter Summary ---
:1994 Author Organization [place] Address [address] [place] [address] Care Team Providers Name Role Phone Bella Sears MD Unavailable Tana Peña MD Unavailable Sofiya Keenan MD Unavailable Carrie Tinsley MD Primary Care Provider [phone] Reason for Visit Reason Comments RECHECK HRT Encounter Details Date Type Department Care Team Description 08/07/2016 Office Visit [facility] Carrie Tinsley Acute renal failure, unspecified acute renal failure type (H) (Primary Dx); Medicine Clinic MD [place] Mixed hyperlipidemia; [facility] Hepatic steatosis; [address] 2019 Gender dysphoria in adult [place], [place] [address] [place], [place] [phone] (Wo rk) Social History Tobacco Use Types Packs/Day Years Used Date Smoking Tobacco: Light Smoker Cigarettes 0.3 Alcohol Use Standard Drinks/Week Comments Yes 0 (1 standard drink = 0.6 oz pure alcoho l) rarely Sex Assigned at Date Recorded Female 03/20/2020 2:05 PM CDT documented as of this encounter Last Filed Vital Signs Vital Sign Reading Time Taken Comments Blood Pressure 138/83 08/07/2016 8:42 AM THERMAL CUTTING TRACER MACHINE OPERATOR Pulse 73 08/07/2016 8:42 AM THERMAL CUTTING TRACER MACHINE OPERATOR Temperature 36.4 ??C (97.6 ??F) 08/07/2016 8:42 AM THERMAL CUTTING TRACER MACHINE OPERATOR Respiratory Rate 14 08/07/2016 8:42 AM THERMAL CUTTING TRACER MACHINE OPERATOR Oxygen Saturation 96% 08/07/2016 8:42 AM THERMAL CUTTING TRACER MACHINE OPERATOR Inhaled Oxygen Concentration - - Weight 65.9 kg (145 lb 3.2 oz) 08/07/2016 8:42 AM THERMAL CUTTING TRACER MACHINE OPERATOR Height 162.6 cm (5' 4) 08/07/2016 8:42 AM THERMAL CUTTING TRACER MACHINE OPERATOR Body Mass Index 24.92 08/07/2016 8:42 AM THERMAL CUTTING TRACER MACHINE OPERATOR documented in this encounter Progress Notes Brenda Bianchi MD - 08/07/2016 8:40 AM CST Preceptor Attestation: Patient seen and discussed with the resident. Assessment and plan reviewed with resident and agreedupon. Supervising Physician: Brenda Bianchi MD [facility] MAL CUTTING TRACER MACHINE OPERATOR Carrie Tinsley MD - 08/07/2016 8:40 AM CST HPI: Pablo Chakraborty is a 21 year old female to male transgender patient on HRT since 03/23/2015 who presents for the following Patient presents with: RECHECK: HRT Patient had labs drawn at outside clinic. It was significant for abnormal Cr of 1.52 with GFR of 64.His LFT's and cholesterol levels are also elevated. In addition to elevated testosterone levels. He had RUQ ultrasound done for further evaluation and demonstrated mild diffuse hepatic steatosis. He reports rare alcohol consumption and states that when he does drinks he consumes 1 beer. He otherwise is feeling well. He had gastroenteritis 2 weeks ago which resolved. He went over his abnormal labs with his PCP (Dr. Holloway), who ordered the test and is aware of the results. He stated that his BP has been elevated in past but nothing was done. He denies chest pain, shortness of breath, nausea, vomiting, or diarrhea. He has history of migraine headaches which was being controlled with prophylaxis propranolol but notworking, therefore his PCP changed him to topamax 50mg daily which has been beneficial. He states that he no longer get migraine headaches on this current medication. He plans to have top surgery at the [facility] in November He's changed his shot day to Wednesdays. He has legally changed his name. Problem, Medication and Allergy Lists were reviewed and are current. Patient is an established patient of this clinic. Review of Systems: Review of Systems Constitutional: Negative. Negative for chills and fever. HENT: Negative. Respiratory: Negative. Negative for cough, chest tightness and wheezing. Cardiovascular: Negative. Negative for chest pain and leg swelling. Gastrointestinal: Negative. Negative for abdominal distention, abdominal pain, blood in stool, constipation, diarrhea, nausea and vomiting. Endocrine: Negative. Genitourinary: Negative. Negative for difficulty urinating, dysuria, flank pain, hematuria and urgency. Musculoskeletal: Negative. Neurological: Negative. Negative for weakness and numbness. Hematological: Negative. Negative for adenopathy. Physical Exam: Patient Vitals for the past 24 hrs: BP Temp Temp src Pulse Resp SpO2 Height Weight 08/07/16 0842 138/83 97.6 ??F (36.4 ??C) Oral 73 14 96 % 5' 4 (162.6 cm) 145 lb 3.2 oz (65.9 kg) Body mass index is 24.92 kg/(m^2). Vitals were reviewed and were normal Physical Exam Constitutional: He is oriented to person, place, and time. He appears well- developed and well-nourished. No distress. HENT: Head: Normocephalic and atraumatic. Eyes: Conjunctivae are normal. Neck: Normal range of motion. Cardiovascular: Normal rate and regular rhythm. Exam reveals no gallop. No murmur heard. Pulmonary/Chest: Effort normal and breath sounds normal. He has no wheezes. He has no rales. Abdominal: Soft. He exhibits no distension and no mass. There is no tenderness. There is no rebound and no guarding. Musculoskeletal: He exhibits no edema (no lower extremity edema). Neurological: He is alert and oriented to person, place, and time. Skin: Skin is warm. No rash noted. He is not diaphoretic. Psychiatric: He has a normal mood and affect. His behavior is normal. Thought content normal. Results: Results for orders placed or performed in visit on 08/07/16 Comprehensive Metabolic Panel (Agency's) Result Value Ref Range Albumin 4.1 3.8 - 5.0 mg/dL Alkaline Phosphatase 53.9 31.7 - 110.5 U/L ALT 22.7 0.0 - 45.0 U/L AST 16.5 0.0 - 45.0 U/L Bilirubin Total 0.4 0.2 - 1.3 mg/dL Urea Nitrogen 16.2 7.0 - 19.0 mg/dL Calcium 9.3 8.5 - 10.1 mg/dL Chloride 109.0 98.0 - 110.0 mmol/L Carbon Dioxide 23.7 20.0 - 32.0 mmol/L Creatinine 1.1 (H) 0.5 - 1.0 mg/dL Glucose 87.6 70.0 - 99.0 mg'dL Potassium 3.9 3.3 - 4.5 mmol/dL Sodium 144.1 (H) 132.6 - 141.4 mmol/L Protein Total 7.4 6.8 - 8.8 g/dL GFR Estimate 66.0 mL/min/1.7 m2 GFR Estimate If Black 79.9 mL/min/1.7 m2 Testosterone total Result Value Ref Range Testosterone Total 463 240 - 950 ng/dL Assessment and Plan Pablo was seen today for recheck. Diagnoses and all orders for this visit: Acute renal failure, unspecified acute renal failure type (H) Unclear etiology but likely correlates with patient's borderline hypertension. Does not appear to beacute decline but I have no further Cr or GFR readings to correlate. Patient prefers to follow up with his PCP who knows his history. Renal US ordered for further evaluation. - Comprehensive Metabolic Panel (Agency's) - US Renal Complete; Future Mixed hyperlipidemia Hepatic steatosis Improving, patient advised to continue with healthy lifestyle modifications and avoid alcohol use. Gender dysphoria in adult Stable. No mood or behavioral changes noted. Patient will return for testosterone level at midcycle.Continue HRT at current dose. - Testosterone total - testosterone cypionate (DEPOTESTOTERONE CYPIONATE) 200 MG/ML injection; Inject 0.3 mLs (60 mg) into the muscle once a week There are no discontinued medications. Options for treatment and follow-up care were reviewed with the patient. Pablo Chakraborty engagedin the decision making process and verbalized understanding of the options discussed and agreed withthe final plan. 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 COMPREHENSIVE Routine 08/07/2016 8:49 AM Acute renal Results for this METABOLIC PANEL THERMAL CUTTING TRACER MACHINE OPERATOR failure, procedure ar e in ([facility]) unspecified acute the result s renal failure type section. (H) documented in this encounter Results Testosterone total (08/07/2016 1:03 PM THERMAL CUTTING TRACER MACHINE OPERATOR) Analysis Performed At Patho logist Time Signature Testosterone 463 240 - 950 [facility] ng/dL [facility] Comment: This test was developed and its performa nce characteristics determined by the [facility], ??Special Chemistry Laboratory. It has not been cleared or approved by the FDA . The laboratory is regulated under CLIA as qualified to perform high-complexity testing. This test is used for clinical purposes. It should not be regarded as investigational or for research. Specimen Anatomical Collection Method Collection Time Receive d Time (Source) Location / / Volume Laterality Blood specimen VENOUS BLOOD / 08/07/2016 1:03 PM 08/07 1:08 (specimen) Unknown THERMAL CUTTING TRACER MACHINE OPERATOR PM THERMAL CUTTING TRACER MACHINE OPERATOR Skip Bianchi MD LAB - BLOOD ORDERABLES Performing Organization Address City/State/ZIP Code Phon e Number [facility] [address] [place], [place] [phone] [place] [address] (ABNORMAL) Comprehensive Metabolic Panel (Agency's) (08/07/2016 8:49 AM THERMAL CUTTING TRACER MACHINE OPERATOR) Patholo gist Method Time Signature Albumin 4.1 3.8 - 5.0 [facility] mg/dL [facility] Alkaline 53.9 31.7 - [facility] Phosphatase 110.5 U/L [facility] ALT 22.7 0.0 - [place] 45.0 U/L [facility] AST 16.5 0.0 - [place] 45.0 U/L [facility] Bilirubin Total 0.4 0.2 - 1.3 [place] mg/dL [facility] Urea Nitrogen 16.2 7.0 - [place] 19.0 [facility] mg/dL [facility] Calcium 9.3 8.5 - [place] 10.1 [facility] mg/dL [facility] Chloride 109.0 98.0 - [place] 110.0 [facility] mmol/L [facility] Carbon Dioxide 23.7 20.0 - [place] 32.0 [facility] mmol/L [facility] Creatinine 1.1 (H) 0.5 - 1.0 [place] mg/dL [facility] Glucose 87.6 70.0 - [place] 99.0 [facility] mg'dL [facility] Potassium 3.9 3.3 - 4.5 [place] mmol/dL [facility] Sodium 144.1 (H) 132.6 - [place] 141.4 [facility] mmol/L [facility] Protein Total 7.4 6.8 - 8.8 [place] g/dL [facility] GFR Estimate 66.0 mL/min/1. [facility] 7 m2 [facility] GFR Estimate If 79.9 mL/min/1. [facility] Black 7 m2 [facility] Specimen Anatomical Collection Method Collection Time Receive d Time (Source) Location / / Volume Laterality Blood specimen VENOUS BLOOD / 08/07/2016 8:49 AM 08/07 8:50 (specimen) Unknown THERMAL CUTTING TRACER MACHINE OPERATOR AM THERMAL CUTTING TRACER MACHINE OPERATOR Brenda Bianchi MD LAB - LAB[facility]Q Performing Organization Address City/State/ZIP Code Phon e Number [facility] [address] [place] [phone] [facility] documented in this encounter Visit Diagnoses Diagnosis Acute renal failure, unspecified acute r enal failure type (H) - Primary Mixed hyperlipidemia Hepatic steatosis Other chronic nonalcoholic liver disease Gender dysphoria in adult documented in this encounter Additional Health Concerns Assessment Noted Time PHQ-9 Depression Total Score: 19 01/16/2016 7:18 AM CD T documented as of this encounter Care Teams Kalsominer Relationship Specialty Start Date End Date Carrie Tinsley MD PCP - General 04/23/16 12/12/16 [facility] [address] [phone] Bella Sears MD General Surgery 11/28/14 Tana Peña MD MD Plastic Surgery 10/30/[address] [place] [id number] oSfiya Keenan MD MD camera supervisor 01/11/[address] [place], [place] [address] 300 [place], [place] [address] documented as of this encounter
--- OUTSIDE RECORDS SUMMARY | 2022-04-12 08:20 | XMS_ITS | Encounter Summary ---
:1994 Author Organization [place] Address [address] [place] [address] Care Team Providers Name Role Phone Bella Sears MD Unavailable Tana Peña MD Unavailable Sofiya Keenan MD Unavailable Carrie Tinsley MD Primary Care Provider [phone] Encounter Details Date Type Department Care Team Description 08/01/2016 Telephone [facility] Carrie Tinsley MD Clinic [place] [address], [address] [place] [id number] [place] [address] [phone] Social History Tobacco Use Types Packs/Day Years Used Date Smoking Tobacco: Light Smoker Cigarettes 0.3 Alcohol Use Standard Drinks/Week Comments Yes 0 (1 standard drink = 0.6 oz pure alcoho l) rarely Sex Assigned at Date Recorded Female 03/20/2020 2:05 PM CDT documented as of this encounter Miscellaneous Notes Telephone Encounter - Belkis Velazquez - 08/02/2016 11:04 AM CST Patient returned called and is scheduled to see Dr Tinsley on 08/07/16 at 8:40am. ICE UNIT OPERATOR OIL WELL Telephone Encounter - Belkis Velazquez - 08/02/2016 10:57 AM CST Called patient to schedule appointment. No answer, left voicemail. ICE UNIT OPERATOR OIL WELL Telephone Encounter - Carrie Tinsley MD - 08/01/2016 2:40 PM SERVICE UNIT OPERATOR OIL WELL Received lab results of patient. Patient will need follow up appointment to discuss further and recheck his kidney function Carrie Tinsley MD ICE UNIT OPERATOR OIL WELL documented in this encounter Plan of Treatment [...] documented as of this encounter Care Teams Electronic Technician Relationship Specialty Start Date End Date Carrie Tinsley MD PCP - General 04/23/16 12/12/16 [facility] [address] [place] [address] Bella Sears MD General Surgery 11/28/14 Tana Peña MD MD Plastic Surgery 10/30/15 420 [facility] [address] [place], [place] [phone] Sofiya Keenan MD MD global project manager 01/11/[address] [facility] 300 [place], [place] [phone] documented as of this encounter
--- OUTSIDE RECORDS SUMMARY | 2022-04-12 08:20 | XMS_ITS | Encounter Summary ---
:1995 Author Organization [facility] Address [address] [place] [address]. [place] [address] Care Team Providers Name Role Phone Bella Sears MD Unavailable Tana Peña MD Unavailable Sofiya Keenan MD Unavailable Carrie Tinsley MD Primary Care Provider [phone] Encounter Details Date Type Department Care Team Description 06/17/2016 Orders Only [facility] Family Carrie Tinsley Gender dysphoria in Medicine Clinic MD [facility] adult (Primary Dx) [address] [place] [address] [address], [place] [address] [place], [place] [phone] (Wo rk) Social History Tobacco Use Types [...] documented as of this encounter Care Teams Machine Stripper Relationship Specialty Start Date End Date Carrie Tinsley MD PCP - General 04/23/16 12/12/16 [facility] [address] [place] [address] Bella Sears MD General Surgery 11/28/14 Tana Peña MD MD Plastic Surgery 10/30/[address] [facility] [address] [place] [address] Sofiya Keenan MD MD small products i assembler 01/11/[address] [place] [address] documented as of this encounter
--- OUTSIDE RECORDS SUMMARY | 2022-04-12 08:20 | XMS_ITS | Encounter Summary ---
:1995 Author Organization [facility] Address [address] [place] [address]. [place] [address] Care Team Providers Name Role Phone Bella Sears MD Unavailable Tana Peña MD Unavailable Sofiya Keenan MD Unavailable Carrie Tinsley MD Primary Care Provider [phone] Encounter Details Date Type Department Care Team Description 07/08/2016 Orders Only General Surgery Tana Peña Gender dysphoria in [address] [facility] SE MD [facility] [address] [place] [address] (Primary Dx) [place] [id number] [place], [place] [phone] (Wo rk) Social History Tobacco Use Types Packs/Day Years Used Date Smoking Tobacco: Light Smoker Cigarettes 0.3 Alcohol Use Standard Drinks/Week Comments Yes 0 (1 standard drink = 0.6 oz pure alcoho l) rarely Sex Assigned at Date Recorded Female 03/20/2020 2:05 PM CDT documented as of this encounter Plan of Treatment Scheduled Orders Name Type Priority Associated Diagnoses Order S chedule Mallorie-Operative Procedures Routine Gender dysphoria in Ordere d: 07/08/2016 Worksheet ([facility] -gender mastectomy Scheduled Procedures Name Priority Associated Diagnoses Date/Time [...] documented as of this encounter Care Teams Water Filterer Relationship Specialty Start Date End Date Carrie Tinsley MD PCP - General 04/23/16 12/12/16 [facility] [address] [place], [place] [id number] Bella Sears MD General Surgery 11/28/14 Tana Peña MD MD Plastic Surgery 10/30/15 [address] [facility] [address] [place] [address] Sofiya Keenan MD MD shipping and receiving coordinator 01/11/[address] [place] [address] documented as of this encounter
--- OUTSIDE RECORDS SUMMARY | 2022-04-12 08:20 | XMS_ITS | Encounter Summary ---
:1995 Author Organization [facility] Address [address] [place] [address]. [place] [address] Care Team Providers Name Role Phone Bella Sears MD Unavailable Tana Peña MD Unavailable Sofiya Keenan MD Unavailable Bella Sears MD Primary Care Provider [phone] Reason for Visit Auth/Cert Specialty Diagnoses / Procedures Referred By Contact Refer red To Contact Surgery Diagnoses Gender Dysphoria, Chronic Pain, Testosterone Exposure Ur Periop Procedures COMBINED HYSTERECTOMY TOTAL ABDOMINAL, SALPINGO-OOPHORECTOMY [address] [place] [phone] Phone: Fax: Referral ID Status Reason Start Date Expiration Date Visits Requ ested Visits Authorized [id number] 1 1 Encounter Details Date Type Department Care Team Description 03/12/2016 Anesthesia Event [facility] Angel Martin [facility] [place] [facility] [address] [place] [address] [id number] [place], [place] [phone] [address] [place] [phone] Anesthesia Record Procedure Summary Procedure Name Responsible Anesthesia Start Anesthesia Stop Time Anesthesiologist Time Total Abdominal Angel Martin MD 03/12/16 0904 03/12/16 1200 Hysterectomy, Bilateral Salpingo-Oophorecto my (Bilateral: Abdomen) Events Date Time Event Comment 03/12/2016 0801 0904 An Start 0909 An Start Data 0920 An Induction 0923 An Intubation 0950 AN INCISION 1052 MD Present 1152 AN Extubation 1157 an stop data 1200 An Stop Electronically s igned by Katalina Fair on March 12 12:01 PM Name Total midazolam 1mg/mL 2 mg fentaNYL (SUBLIMAZE) injection 500 mcg lidocaine 2% 100 mg propofol (DIPRIVAN) injection 10 mg/mL vial 200 mg rocuronium 10mg/mL 60 mg phenylephrine 0.1mg/mL 100 mcg ondansetron 2 mg/mL 4 mg dexamethasone 4 mg/mL 4 mg glycopyrrolate 0.2 mg/mL 0.3 mg neostigmine 1mg/mL 4 mg ceFAZolin (ANCEF) intermittent infusion 2 g (pre-mix) 4 g bupivacaine liposome (EXPAREL) 1.3 % LONG ACTING injec table suspension 20 mL (Optime users: if unable to chart, ask pharmacist to c hange freq to once) 20 mL bupivacaine 0.25% with EPINEPHrine 1:200,000 20 mL LR 1,700 mL Agents Name O2 Air Exp Isoflurane Ins Isoflurane Blood No blood administrations on file. Lines, Drains, and Airways Type Details Placement Removal Incision/Surgical 03/12/16; 0959; Abdomen; 03/12/16 0959 by Site Melodieme Lorrie Correa RN Peripheral IV 03/12/16; 20 G; Left; 03/12/16 0000 by 03/14/16 0200 by Hand; Chlorhexidine Patricia Latif Batuyog, Mary RN Jacqueline, RN RETIRED ETT 03/12/16; 0923; Mask 03/12/16 0923 by 03/12/16 1 152 by Ventilation: Easy; Ease Katalina Fair Patricia of Intubation: Easy; OSVALDO PerdomoN ED EDUCATIONAL AIDE GENO Perdomo C RNA Airway Size: 7; Cuffed; Oral; Blade Type: Izaguirre; Blade Size: 2; Place by: Kamille Fair; Insertion Attempts: 1; Secured at (cm)to lip: 22 cm; End Tidal CO2: Present; Dentition: Intact, Unchanged Urethral Catheter 03/12/16; 0940; No; 03/12/16 0940 by 03/13/16 0900 by /GI/ASSOCIATE PROFESSOR OF MEDIA ARTS Pelvic Lorrie Correa Kelly, Cathe rine M, Procedure; 16 fr RN RN documented in this encounter Social History Tobacco Use Types Packs/Day Years Used Date Smoking Tobacco: Light Smoker Cigarettes 0.3 Alcohol Use Standard Drinks/Week Comments Yes 0 (1 standard drink = 0.6 oz pure alcoho l) rarely Sex Assigned at Date Recorded Female 03/20/2020 2:05 PM CDT documented as of this encounter OR Notes Anesthesia Postprocedure Evaluation - Angel Martin MD - 03/12/2016 12:19 PM CDT Patient: Jazzmine Chakraborty COMBINED HYSTERECTOMY TOTAL ABDOMINAL, SALPINGO-OOPHORECTOMY (Bilateral Abdomen) Additional InformationProcedure(s): Total Abdominal Hysterectomy, Bilateral Salpingo-Oophorectomy - Wound Class: II- Clean Contaminated Diagnosis:Gender Dysphoria, Chronic Pain, Testosterone Exposure Diagnosis Additional Information: No value filed. Anesthesia Type: General Note: Anesthesia Post Evaluation Patient location during evaluation: PACU Patient participation: Able to fully participate in evaluation Level of consciousness: awake and alert Pain management: adequate Airway patency: patent Cardiovascular status: acceptable Respiratory status: acceptable Hydration status: acceptable PONV: none Two Antiemetics given: Yes Anesthetic complications: None Last vitals: Filed Vitals: 03/12/16 0626 03/12/16 1200 BP: 128/74 Pulse: 64 60 Temp: 36.6 ??C (97.9 ??F) 36.6 ??C (97.8 ??F) Resp: 18 16 SpO2: 99% Electronically Signed By: Angel Martin MD March 12, 2016 12:19 PM Anesthesia Procedure Notes - Lay George DO - 03/12/2016 10:00 AM CDT Associated Order(s): ANE UU PERIPHERAL/PARAVETEBRAL BLOCK Peripheral Nerve Block Procedure Note Staff: Anesthesiologist: FLAKITA GAUTHIER Resident/ED EDUCATIONAL AIDE: LAY GEORGE Block performed by resident/ED EDUCATIONAL AIDE in the presence of a teaching physician Location: OR AFTER induction Procedure Start/Stop TImes: 03/12/2016 9:10 AM 03/12/2016 9:25 AM patient identified, IV checked, site marked, risks and benefits discussed, informed consent, monitors and equipment checked, pre-op evaluation, at physician/surgeon's request and post-op pain management Correct Patient: Yes Correct Position: Yes Correct Site: Yes Correct Procedure: Yes Correct Laterality: Yes Site Marked: Yes Procedure details: Procedure: TAP ASA: 2 Laterality: Bilateral Position: Supine Sterile Prep: chloraprep, mask and sterile gloves Local skin infiltration: None Needle: Short bevel and insulated Needle gauge: 20 Needle length (inches): 4 Ultrasound: Yes Ultrasound used to identify targeted nerve, plexus, or vascular structure and placed a needle adjacent to it Permanent Image entered into patiient's record Abnormal pain on injection: No Blood Aspirated: No Paresthesias: No Bleeding at site: No Bolus via: Needle Infusion Method: Single Shot Complications: None Anesthesia Preprocedure Evaluation - Angel Martin MD - 03/12/2016 8:00 AM CDT Anesthesia Evaluation . Pt has had prior anesthetic. Type: General ROS/MED HX ENT/Pulmonary: (+)asthma , . . Neurologic: - neg neurologic ROS Cardiovascular: - neg cardiovascular ROS METS/Exercise Tolerance: Hematologic: - neg hematologic ROS Musculoskeletal: - neg musculoskeletal ROS GI/Hepatic: - neg GI/hepatic ROS Renal/Genitourinary: - ROS Renal section negative Endo: Psychiatric: (+) psychiatric history bipolar Infectious Disease: - neg infectious disease ROS Malignancy: - no malignancy Other: (+) No chance of - neg other ROS Physical Exam Normal systems: cardiovascular and pulmonary Airway Mallampati: II TM distance: >3 FB Dental (+) partials Cardiovascular Pulmonary Anesthesia Plan History & Physical Review History and physical reviewed and following examination; no interval change. ASA Status: 2 . NPO Status: > 8 hours Plan for General with Intravenous and Propofol induction. Maintenance will be Inhalation. PONV prophylaxis: Ondansetron and Dexamethasone Postoperative Care Postoperative pain management: IV analgesics and Oral pain medications. Consents Anesthetic plan, risks, benefits and alternatives discussed with: Patient.. . documented in this encounter Miscellaneous Notes Anesthesia Care Transfer Note - Katalina Fair APRN CRNA - 03/12/2016 12:00 PM CDT Patient: Jazzmine Chakraborty COMBINED HYSTERECTOMY TOTAL ABDOMINAL, SALPINGO-OOPHORECTOMY (Bilateral Abdomen) Additional InformationProcedure(s): Total Abdominal Hysterectomy, Bilateral Salpingo-Oophorectomy - Wound Class: II- Clean Contaminated Diagnosis: Gender Dysphoria, Chronic Pain, Testosterone Exposure Diagnosis Additional Information: No value filed. Anesthesia Type: General Note: Airway :Face Mask Patient transferred to:PACU Vitals: (Last set prior to Anesthesia Care Transfer) Electronically Signed By: Katalina Fair APRN CRNA March 12, 2016 12:00 PM 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 documented as of this encounter Procedures Procedure Name Priority Date/Time Associated Diagnosis Comme nts ANE Routine 03/12/2016 10:04 AM Results for this PERIPHERAL/PARAVETE CDT procedur e are in BRAL BLOCK the results section. documented in this encounter Results Peripheral/Paravetebral Block (03/12/2016 10:04 AM CDT) Narrative Lay George DO - 03/12/2016 10:0 4 AM CDT Lay George, DO ? 03/12/2016 10:04 AM Peripheral Nerve Block Procedure Note Staff: ??Anesthesiologist: ??FLAKITA GAUTHIER ??Resident/ED EDUCATIONAL AIDE: ??LAY GEORGE ??Block performed by resident/ED EDUCATIONAL AIDE in t he presence of a teaching physician ?? Location: OR AFTER induction Procedure Start/Stop TImes: ?? 03/12/2016 9:10 AM ?? 03/12/2016 9:25 AM ??patient identified, IV checked, site marked, risks and benefits discussed, informed consent, monitors an d equipment checked, pre-op evaluation, at physician/surgeon' s request and post-op pain management ?Correct Patient: Yes ?Correct Position: Yes ?Correct Site: Yes ?Correct Procedure: Yes ?Correct Laterality: ??Yes ??Site Marked: ??Yes Procedure details: ??Procedure: ??TAP ??ASA: ??2 ??Laterality: ??Bilateral ??Position: ??Supine ??Sterile Prep: chloraprep, mask and st erile gloves ?Local skin infiltration: ??None ??Needle: ??Short bevel and insulated ??Needle gauge: ??20 ??Needle length (inches): ??4 ??Ultrasound: Yes ?Ultrasound used to identify targeted nerve, plexus, or vascular structure and placed a needle adjacent t o it ?Permanent Image entered into patiient 's record ?Abnormal pain on injection: No ?Blood Aspirated: No ?Paresthesias: ??No ??Bleeding at site: No ?Bolus via: ??Needle ??Infusion Method: ??Single Shot ??Complications: ??None Lay George DO [place] ANESTHESIA documented in this encounter Visit Diagnoses Not on filedocumented in this encounter Administered Medications Inactive Administered Medications - up to 3 most recent administrations Medication Order MAR Action Action Date Dose Rate Site bupivacaine 0.25 % - EPINEPHrine Given 03/12/2016 9:24 AM CDT 20 mLs 1:200,000 injection PRN, Starting on Fri03/12/16 at 0924, Anesthesia Intra-op bupivacaine liposome (EXPAREL) 1.3 % LONG Given 03/12/2016 9:24 AM CDT 20 mLs ACTING injectable suspension (Optime users: if unable to chart, ask pharmacist to change freq to once) 20 mL 20 mL, Infiltration, DURING SURGERY, Starting on Fri03/12/16 at 0756, For 1 dose, Invert vial to re-suspend particles immediately prior to withdrawal from vial. Stable for 4 hours at room temperature once removed from vial., Intra-procedure ceFAZolin (ANCEF) intermittent infusion 2 g Given 03/12/2016 11: 30 AM CDT 2 g (pre-mix) Routine, 2 g, Intravenous, PRE-OP/PRE-PROCEDURE, Starting on Fri03/12/16 at 0626, For 1 dose, Give first dose within 1 hour PRIOR to incision. If patient weight is greater than or equal to 120 kg increase dose to 3 g., Indications: Perioperative Pharmacoprophylaxis, Pre-procedure Given 03/12/2016 9:30 AM CDT 2 g dexamethasone (DECADRON) injection Given 03/12/2016 11:35 AM CDT 4 mg PRN, Administer over 1-4 Minutes, Starting on Fri03/12/16 at 1135, Anesthesia Intra-op fentaNYL Citrate (PF) (SUBLIMAZE) inject ion Given 03/12/2016 11:59 AM CDT 50 mcg PRN, moderate to severe pain, Starting on Fri03/12/16 at 0909, Anesthesia Intra-op Given 03/12/2016 11:57 AM CDT 50 mcg Given 03/12/2016 11:40 AM CDT 25 mcg glycopyrrolate (ROBINUL) injection Given 03/12/2016 11:35 AM CDT 0.3 mg PRN, Starting on Fri03/12/16 at 1135, Anesthesia Intra-op lactated ringers infusion New Bag 03/12/2016 10:09 AM CDT Intravenous, CONTINUOUS PRN, Anesthesia Intra-op, Starting on Fri03/12/16 at 0904, Until Fri03/12/16 at 1201 New Bag 03/12/2016 9:04 AM CDT lidocaine injection 2% (MDV) Given 03/12/2016 9:20 AM CDT 100 mg Intravenous, PRN, Starting on Fri03/12/16 at 0922, Anesthesia Intra-op midazolam (VERSED) injection Given 03/12/2016 9:04 AM CDT 2 mg Intravenous, PRN, anxiety, Starting on Fri03/12/16 at 0904, Anesthesia Intra-op neostigmine (PROSTIGMINE) injection Given 03/12/2016 11:35 AM CDT 4 mg PRN, Starting on Fri03/12/16 at 1135, Anesthesia Intra-op ondansetron (ZOFRAN) injection Given 03/12/2016 11:35 AM CDT 4 mg PRN, nausea, vomiting, Administer over 2-5 Minutes, Starting on Fri03/12/16 at 1135, Anesthesia Intra-op phenylephrine injection Given 03/12/2016 9:26 AM CDT 100 mcg Intravenous, PRN, Starting on Fri03/12/16 at 0926, Anesthesia Intra-op propofol (DIPRIVAN) injection 10 mg/mL v ial Given 03/12/2016 9:20 AM CDT 200 mg Intravenous, PRN, Starting on Fri03/12/16 at 0921, Anesthesia Intra-op rocuronium (ZEMURON) injection Given 03/12/2016 11:03 AM CDT 10 mg Intravenous, PRN, Starting on Fri03/12/16 at 0922, Anesthesia Intra-op Given 03/12/2016 10:36 AM CDT 5 mg Given 03/12/2016 10:09 AM CDT 5 mg documented in this encounter Additional Health Concerns Assessment Noted Time PHQ-9 Depression Total Score: 19 01/16/2016 7:18 AM CD T documented as of this encounter Care Teams Blow Torch Operator Relationship Specialty Start Date End Date Bella Sears MD PCP - General General Surgery 02/14/16 04/22/16 Bella Sears MD General Surgery 11/28/14 Tana Peña MD MD Plastic Surgery 10/30/15 [address] [facility] [address] [place] [address] Sofiya Keenan MD MD price checker 01/11/[address] [place] [address] documented as of this encounter
--- OUTSIDE RECORDS SUMMARY | 2022-04-12 08:20 | XMS_ITS | Encounter Summary ---
:1994 Author Organization [facility] Address [address] [place] [address]. [place] [address] Care Team Providers Name Role Phone Bella Sears MD Unavailable Tana Peña MD Unavailable Sofiya Keenan MD Unavailable Carrie Tinsley MD Primary Care Provider [phone] Encounter Details Date Type Department Care Team Description 05/15/2016 Orders Only [facility] Gen josh identity disorder, Clinic unspecified [address], [address] [place], [place] [address] Social History Tobacco Use Types [...] Associated Diagnosis Comme nts TESTOSTERONE TOTAL Routine 05/15/2016 1:08 PM Gender identity Results for this POLISHER HAND disorder, procedure are i n unspecified the results section. documented in this encounter Results (ABNORMAL) Testosterone Total (05/15/2016 1:08 PM POLISHER HAND) [facility] Method Time Signature Testosterone 1,043 (H) 8 - 60 [facility] Total ng/dL [facility] Comment: This test was developed and its performa nce characteristics determined by the [facility], ??Special Chemistry Laboratory. It has not [...] Volume Laterality Blood specimen VENOUS BLOOD / 05/15/2016 1:08 PM 05/15 5:08 (specimen) Unknown POLISHER HAND PM POLISHER HAND Christopher Ji MD LAB - BLOOD ORDERABLES Performing Organization Address City/State/ZIP Code Phon e Number [facility] [address] [place], [place] [id number] [place] [address] documented in this encounter Visit Diagnoses Diagnosis Gender identity disorder, unspecified documented in this encounter Additional Health Concerns Assessment Noted Time PHQ-9 Depression Total Score: 19 01/16/2016 7:18 AM CD T documented as of this encounter Care Teams Marketing Pr Intern Relationship Specialty Start Date End Date Carrie Tinsley MD PCP - General 04/23/16 12/12/16 [facility] [address] [place] [address] Bella Sears MD General Surgery 11/28/14 Tana Peña MD MD Plastic Surgery 10/30/15 420 [facility] [address] [place], [place] [address] Sofiya Keenan MD MD legal billing coordinator 01/11/[address] [place] [address] [address] [place], [place] [address] documented as of this encounter
--- OUTSIDE RECORDS SUMMARY | 2022-04-12 08:20 | XMS_ITS | Encounter Summary ---
:1995 Author Organization [facility] Address [address] [facility] [place] [address] Care Team Providers Name Role Phone Bella Sears MD Unavailable Tana Peña MD Unavailable Abbi Cohen MD Unavailable Bella Sears MD Primary Care Provider [phone] Reason for Visit Auth/Cert Specialty Diagnoses / Procedures Referred By Contact Refer red To Contact Surgery Diagnoses Gender Dysphoria, Chronic Pain, Testosterone Exposure Ur Periop Procedures COMBINED HYSTERECTOMY TOTAL ABDOMINAL, SALPINGO-OOPHORECTOMY [address] [place] [address] Phone: Fax: Referral ID Status Reason Start Date Expiration Date Visits Requ ested Visits Authorized [id number] 1 1 Encounter Details Date Type Department Care Team Description 03/12/2016 - Hospital Encounter [facility] Abbi Cohen S/P hysterectomy 03/14/2016 [facility] [address] MD Chloé (Primary Dx) [address] [facility] [address] [place] [address] [facility] [address] [place], [place] [address] Social History Tobacco Use Types Packs/Day Years [...] Sexton MD - 03/14/2016 7:01 AM CDT [facility] Discharge Summary Jazzmine Chakraborty Age: [age] year old Date of : 1995 Date of Admission: 03/12/2016 Date of Discharge:: 03/14/2016 Admitting Physician: Abbi Cohen MD Discharge Physician: Rachel Sexton MD Home clinic: [facility] Admission Diagnoses: Chronic back pain Dyspareunia Gender [...] signs, notes, medications, labs and imaging. Marce Maers MD OBGYN Resident, PGY4 03/14/2016 7:01 AM [...] MG Take 1 tablet by 120 tablet 016 05/10/2019 TABSIndications: Gender mouth daily dysphoria [...] Mares MD - 03/14/2016 6:58 AM CDT Manager Community Relations Progress Note S: Patient reports he is [...] PGY4 03/14/2016 7:00 AM Cleo Cevallos APRN SOUND ENGINEER - 03/13/2016 9:46 AM CDT REGIONAL ANESTHESIA [...] plan with attending anesthesiologist Cleo Cevallos APRN CNP [facility] 03/13/2016 9:46 AM 24 hour Job Code Pager. For in-house use only. Dial * * *[phone] and [place]: -[phone] [place]: -[phone] Peds: -[phone] Enter call-back number May text page using [employer], but NOT [employer]. Abbi Barry MD - 03/13/2016 6:31 AM CDT Manager Community Relations Progress Note S: Pablo is feeling a [...] Neuro: propanolol for migraines - : d/c whartno - PPx: SCDs while in bed, encourage [...] Mares MD - 03/12/2016 2:17 PM CDT Manager Community Relations Post-Op check S: Patient reports incisional pain and nausea. Denies chest or difficulty breathing. No other complaints. O: Filed Vitals: 03/12/16 1315 03/12/16 1330 03/12/16 1345 03/12/16 1400 BP: 118/68 119/73 120/74 119/72 Pulse: 55 Temp: 98.6 ??F (37 ??C) TempSrc: Oral Resp: 18 12 19 Height: Weight: SpO2: 99% 100% [...] independently. CMS and neuros intact. Abdominal incision DEEP TISSUE MASSAGE THERAPIST, abdominal binder on at all times. Patient [...] chux removed from under patient - updated TITLE COORDINATOR resident, placed new pad around 1800. Abdominal [...] Pfannenstiel skin incision Surgeon: Abbi Cohen MD Mechanical Manufacturing Engineer: [id number] - Marce Mares MD; August Huerta, MS3 Anesthesia: General endotracheal anesthesia Complications: none [...] was examined with the abovenoted findings. A Nneka retractor was placed into the incision and [...] The vaginal cuff angles were closed with [id number] stitches of 0-vicryl. The remainder of the vaginal cuff was closed with two additional interrupted 0- Vicryl [id number] sutures. Hemostasis was assured. Attention was then [...] Cohen MD - 03/12/2016 11:53 AM CDT [facility] [place] Brief Operative Note Name: Jazzmine Chakraborty : [...] Glucose by meter (03/14/2016 6:53 AM CDT) athologist Signature Glucose 88 70 - 99 POINT OF CARE mg/dL TEST, GLUCOSE Specimen Anatomical Collection Method Collection Time Receive d Time (Source) Location / / Volume Laterality 03/14/2016 6:53 AM 6 6:59 CDT AM CDT Abbi YAN POCT Performing Organization Address City/[facility] Code Phon e Number FV POINT OF CARE TEST, GLUCOSE POINT OF CARE TEST, GLUCOSE (ABNORMAL) Glucose by meter (03/13/2016 5:47 AM CDT) athologist Signature Glucose 111 (H) 70 - 99 POINT OF CARE mg/dL TEST, GLUCOSE Specimen Anatomical Collection Method Collection Time Receive d Time (Source) Location / / Volume Laterality 03/13/2016 5:47 AM 6 5:49 CDT AM CDT Abbi YAN POCT Performing Organization Address City/[facility] Code Phon e Number FV POINT OF CARE TEST, GLUCOSE POINT OF CARE TEST, GLUCOSE Hemoglobin (03/13/2016 5:22 AM CDT) P athologist Signature Hemoglobin 14.9 11.7 - 15.7 [facility] g/dL [facility] Specimen Anatomical Collection Method Collection Time Receive d Time (Source) Location / / Volume Laterality Blood specimen 03/13/2016 5:22 AM 016 5:27 (specimen) CDT AM CDT Marce Mares MD LAB - BLOOD ORDERABLES Performing Organization Address City/State/ZIP Code Phon e Number [facility] [address] [place] [address] [facility] Surgical pathology exam (03/12/2016 11:04 AM CDT) Component Value Ref Test Analysis Performed At [facility] gist Range Method Time Signature Copath Report Patient Name: JAZZMINE CHAKRABORTY MR#: [id number] Specimen #: [id number] Collected: 03/12/2016 Received: 03/12/2016 Reported: 03/14/2016 17:31 [...] and fallopian tubes are grossly unremarkab le. Ichthyologist sections are submitted in seven cassettes. Summary of sections: 1 and 2 - cervix 3 and 4 - anterior and posterior endomyometrium 5 - endometrium 6- right ovary and tube 7- left ovary and tube (Dictated by: Stephanie Byers 03/12/2016 02:31 PM) MICROSCOPIC: Microscopic examination was performed. CPT Codes: A: 01492-XV3 TESTING LAB LOCATION: [address] [address] COLLECTION SITE: [facility] Location: UROR (B) Specimen Anatomical Collection Method Collection Time Receive d Time (Source) Location / / Volume Laterality 03/12/2016 11:04 03/12/2016 AM CDT 11:38 AM CDT Abbi Cohen MD [facility] Performing Organization Address City/State/ZIP Code Phon e Number COPATH (ABNORMAL) CBC with platelets (03/12/2016 7:01 AM CDT) [facility] Method Time Signature WBC 8.0 4.0 - 11.0 [facility] 10e9/L [facility] RBC Count 5.52 (H) 3.8 - 5.2 [facility] 10e12/L [facility] Hemoglobin 16.8 (H) 11.7 - [facility] 15.7 g/dL [facility] Hematocrit 48.5 (H) 35.0 - [facility] 47.0 % [facility] MCV 88 78 - 100 [facility] fl [facility] MCH 30.4 26.5 - [facility] 33.0 pg [facility] MCHC 34.6 31.5 - [facility] 36.5 g/dL [facility] RDW 12.2 10.0 - [facility] 15.0 % [facility] Platelet Count 222 150 - 450 [facility] 10e9/L [facility] Specimen Anatomical Collection Method Collection Time Receive d Time (Source) Location / / Volume Laterality Blood specimen 03/12/2016 7:01 AM 016 7:02 (specimen) CDT AM CDT Abbi Cohen MD LAB - BLOOD ORDERABLES Performing Organization Address City/[facility]/ZIP Code Phon e Number [address] [id number] [facility] ABO/Rh type and screen (03/12/2016 7:01 AM CDT) Patholo gist Method Time Signature ABO A [facility] RH(D) Pos [facility] Antibody Neg [facility] Screen [facility] Test Valid [facility] Specimen 03/15/2016 [facility] Expires [facility] Specimen Anatomical Collection Method Collection Time Receive d Time (Source) Location / / Volume Laterality Blood specimen 03/12/2016 7:01 AM 016 7:02 (specimen) CDT AM CDT Abbi Cohen MD LAB - BLOOD BANK TEST ORDER Performing Organization Address City/[facility]/ZIP Code Phon e Number [address] [address] [facility] HCG qualitative urine (03/12/2016 6:34 AM CDT) Analysis Performed At Patho logist Time Signature HCG Qual Urine Negative NEG 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 documented in this encounter Administered Medications Inactive Administered Medications - up to 3 most recent administrations Medication Order MAR Action Action Date Dose Rate Site acetaminophen (TYLENOL) tablet 975 Given 03/14/2016 8:22 AM CDT 975 mg mg 975 mg, Oral, EVERY 8 HOURS, First dose on Fri03/12/16 at 1430, For 3 days, Do not use if patient has an active opioid/acetaminophen analgesic order for pain Maximum acetaminophen dose from all sources = 75 mg/kg/day not to exceed 4 grams/day., Post-procedure Given 03/14/2016 12:05 AM CDT 975 mg Given 03/13/2016 4:01 PM CDT 975 mg bisacodyl (DULCOLAX) suppository 10 mg Given 03/14/2016 10:50 AM CDT 10 mg 10 mg, Rectal, DAILY PRN, constipation, Starting on Bianca 03/14/16 at 0830 enoxaparin (LOVENOX) injection 40 mg Given 03/14/2016 1:23 PM CDT 40 mg 40 mg, Subcutaneous, EVERY 24 HOURS, First dose on Fri03/13/16 at 1000 Given 03/13/2016 8:16 AM CDT 40 mg HYDROmorphone (PF) (DILAUDID) injection Given 03/12/2016 1:43 PM CDT 0.3 mg 0.3-0.5 mg 0.3-0.5 mg, Intravenous, EVERY 10 MIN PRN, other, acute pain.?May administer if Respiratory Rate is greater than 10, Starting on Fri03/12/16 at 1127, If fentanyl is also ordered, use HYDROmorphone if pain control insufficient with fentanyl or a longer acting agent is needed. Max cumulative dose = 2 mg, PACU/Phase II Given 03/12/2016 12:45 PM CDT 0.3 mg Given 03/12/2016 12:32 PM CDT 0.3 mg HYDROmorphone (PF) (DILAUDID) injection Given 03/13/2016 12:00 P M CDT 0.3 mg 0.3-0.5 mg 0.3-0.5 mg, Intravenous, EVERY 2 HOURS PRN, severe pain, or patient unable to take PO, Starting on Fri03/12/16 at 1256, Hold while on CLOCK AND WATCH HANDS MOUNTER.., Post-procedure Given 03/12/2016 7:44 PM CDT 0.5 mg Given 03/12/2016 5:40 PM CDT 0.5 mg ibuprofen (ADVIL,MOTRIN) tablet 600 mg Given 03/14/2016 1:55 PM CDT 600 mg 600 mg, Oral, EVERY 6 HOURS, First dose on Fri03/13/16 at 1400 Given 03/14/2016 8:21 AM CDT 600 mg Given 03/14/2016 1:55 AM CDT 600 mg ketorolac (TORADOL) injection 30 mg Given 03/12/2016 12:59 PM CDT 30 mg 30 mg, Intravenous, EVERY 6 HOURS PRN, moderate to severe pain, Starting on Fri03/12/16 at 1257, For 24 hours ketorolac (TORADOL) injection 30 mg Given 03/13/2016 8:11 AM CDT 30 mg 30 mg, Intravenous, EVERY 6 HOURS, First dose (after last modification) on Fri03/13/16 at 0200 Given 03/13/2016 2:05 AM CDT 30 mg lactated ringers infusion New Bag 03/13/2016 5:32 AM CDT 125 mL/hr at 125 mL/hr, Intravenous, CONTINUOUS, Post-procedure, Starting on Fri03/12/16 at 1430, Until Fri03/13/16 at 0725 New Bag 03/12/2016 10:16 PM CDT 125 mL/hr New Bag 03/12/2016 2:16 PM CDT 125 mL/hr ondansetron (ZOFRAN) injection 4 mg Given 03/12/2016 12:38 PM CDT 4 mg 4 mg, Intravenous, EVERY 30 MIN PRN, nausea, vomiting, Administer over 2-5 Minutes, Starting on Fri03/12/16 at 1127, For 2 doses, MAX total dose = 8 mg, including OR dosing. This is step 1 of the nausea and vomiting protocol. If not resolved in 15 minutes, then go to step 2 (Prochlorperazine if ordered)., PACU/Phase II ondansetron (ZOFRAN) injection 4 mg Given 03/12/2016 2:22 PM CDT 4 mg 4 mg, Intravenous, EVERY 6 HOURS PRN, nausea, vomiting, Administer over 2-5 Minutes, Starting on Fri03/12/16 at 1415, This is Step 1 of nausea and vomiting management. If nausea not resolved in 15 minutes, go to Step 2 prochlorperazine (COMPAZINE)., Post-procedure oxyCODONE (ROXICODONE) immediate release tablet Given 03/14/2016 7:22 PM CDT 5 mg 5-10 mg 5-10 mg, Oral, EVERY 3 HOURS PRN, moderate to severe pain, Starting on Fri03/12/16 at 1256, IF CrCl is UNKNOWN start at lowest end of dosing range. Hold while on CLOCK AND WATCH HANDS MOUNTER or with regular IV opioid dosing., Post-procedure Given 03/14/2016 5:38 PM CDT 5 mg Given 03/14/2016 4:08 PM CDT 5 mg phenazopyridine (PYRIDIUM) tablet 200 mg Given 03/12/2016 7:02 AM CDT 200 mg 200 mg, Oral, ONCE, On Fri03/12/16 at 0630, For 1 dose, Give in preop holding room with small sip of water., Pre-procedure polyethylene glycol (MIRALAX/GLYCOLAX) packet Given 03/14/20 8:21 AM CDT 17 g 17 g 17 g, Oral, DAILY, First dose on Fri03/13/16 at 0800, 1 Packet = 17 grams. Mixed prescribed dose in 8 ounces of water. Follow with 8 oz. of water. Given 03/13/2016 11:16 AM CDT 17 g prochlorperazine (COMPAZINE) injection 5 -10 mg Given 03/12/2016 7:45 PM CDT 10 mg 5-10 mg, Intravenous, EVERY 6 HOURS PRN, nausea, vomiting, Starting on Fri03/12/16 at 1415, This is Step 2 of nausea and vomiting management. If nausea not resolved in 15 minutes, give metoclopramide (REGLAN), if ordered (step 3 of nausea and vomiting management), Post-procedure propranolol (INDERAL LA) 24 hr capsule 8 0 mg Given 03/13/2016 7:24 PM CDT 80 mg 80 mg, Oral, DAILY, First dose on Fri03/12/16 at 1430, DO NOT CRUSH. For ADULTS, Hold if Heart Rate less than 60 bpm. Given 03/12/2016 10:20 PM CDT 80 mg senna-docusate (SENOKOT-S;PERICOLACE) Given 03/14/2016 8:21 AM C DT 2 tablets 8.6-50 MG per tablet 1-2 tablet 1-2 tablet, Oral, 2 TIMES DAILY, First dose on Fri03/13/16 at 0800, Start with 1 tablet PO BID, If no bowel movement in 24 hours, increase to 2 tablets PO BID. Hold for loose stools., Post-procedure Given 03/13/2016 7:24 PM CDT 2 tablets Given 03/13/2016 8:11 AM CDT 2 tablets simethicone (MYLICON) chewable tablet 80 mg Given 03/14/2016 5:23 AM CDT 80 mg 80 mg, Oral, EVERY 6 HOURS PRN, cramping, Starting on Fri03/13/16 at 0647 Given 03/13/2016 6:59 AM CDT 80 mg sodium chloride (PF) 0.9% PF flush 3 mL Given 03/14/2016 12:05 AM CDT 3 mLs 3 mL, Intracatheter, EVERY 8 HOURS, First dose on Fri03/12/16 at 1430, And Q1H PRN, to lock peripheral IV dormant line., Post-procedure Given 03/13/2016 2:33 PM CDT 3 mLs documented in this encounter Active and Recently Administered Medications Times are shown in CDT. Scheduled Medication Order 03/12/2016 03/13/2016 03/14/2016 acetaminophen (TYLENOL) tablet 975 mg (CANCELED) 1450 (Given - Provider: Nora Garcia RN)2221 (Given - Provider: Helen Martinez RN) 0607 (Given - Provider: Kyra Kim, CASH)1601 (Given - Provider: Alia Johns RN) 0005 (Given - Provider: Anca steele RN)0822 (Given - Provider: Lois Mathis, CASH)1615 (Not Given - Provider: Ngear Robison RN - Reason: Patient/family refused) 975 mg, Oral, [...] change freq to once) 20 mL (COMPLETED) 09 (Given - Provider: Sanjay Weiss DO) 20 mL, Infiltration, DURING SURGERY, Sta rting Fri03/12/16 at 0756, For 1 dose, Invert vial to re-suspend particles immediately prior to withdrawal from vial. Stable for 4 hours at room temperature once removed from vial., Intra-procedure ceFAZolin (ANCEF) intermittent infusion 2 g (pre-mix) (COMPLETED) 929 (Given - Provider: Katalina Fair, GENO CONFERENCE PLANNER)1130 (Given - Provider: Katalina Fair APRN CONFERENCE PLANNER) 2 g, Intravenous, PRE-OP/PRE-PROCEDURE, Starting Fri03/12/16 at [...] 17 g 1116 (Given - Provider: Smita Adrian, RN) 08 (Given - Provider: Lois Mathis, RN) 17 g, Oral, DAILY, First dose on 02/15 at 0800, 1 Packet = 17 grams. Mixed prescribed dose in 8 ounces of water. Follow with 8 oz. of water. propranolol (INDERAL LA) 24 hr capsule 80 mg (CANCELED ) 1543 (Not Given - Provider: Nora Garcia RN - Reason: Contraindicated - Comment: HR 50s)2220 (Given - Provider: Helen Martinez, CASH) 192 (Given - Provider: Alia Johns, CASH) 1999 (Canceled Entry - Provider: Orders Generic Provider - Comment: Automatically canceled at discontinue of medication order) 80 mg, Oral, DAILY, First dose on Fri at 1430, DO NOT CRUSH. For ADULTS, Hold if Heart Rate less than 60 bpm. senna-docusate (SENOKOT-S;PERICOLACE) 8.6-50 MG per tablet 1 -2 tablet 0811 (Given - Provider: Smita Adrian RN)192 (Given - Provider: Alia Johns, CASH) 08 (Given - Provider: Lois Mathis, CASH)1999 (Canceled Entry - Provider: Orders Generic Provider [...] Reason: IV Infusing)1433 (Given - Provider: Smita Adrian, CASH) 0005 (Given - Provider: Anca steele RN) 3 mL, Intracatheter, EVERY 8 HOURS, Firs t dose on Fri03/12/16 at 1430, And Q1H PRN, to lock peripheral IV dormant line., Post-procedure Continuous Medication Order 03/12/2016 03/13/2016 03/14/2016 lactated ringers infusion (CANCELED) 1416 (New Bag - P rovider: Nora Garcia, CASH)2216 (New Bag - Provider: Helen Martinez RN) 0532 (New Bag - Provider: Kyra [...] (CA NCELED) 1232 (Given - Provider: Arlen Mueller, CASH)1245 (Given - Provider: Arlen Mueller, CASH)1343 (Given - Provider: Arlen Mueller RN) 0.3-0.5 mg, Intravenous, EVERY 10 MIN IA N, Starting Fri03/12/16 at 1127, Until Fri03/12/16 at 1410, other, acute pain.?May administer if Respiratory Rate is greater than 10, PACU/Phase II, If fentany l is also ordered, use HYDROmorphone if pain control insufficient with fentanyl or a longer acting agent is needed. Max cumulative dose = 2 mg HYDROmorphone (PF) (DILAUDID) injection 0.3-0.5 mg (CA NCELED) 1740 (Given - Provider: Nora Garcia, CASH)1944 (Given - Provider: Helen Martinez, RN) 1200 (Given - Provider: Smita Adrian RN) 0.3-0.5 mg, Intravenous, EVERY 2 HOURS P RN, Starting 03/12/16 at 1256, Until Bianca 03/14/16 at 2327, severe pain, or patient unable to take PO, Post-procedure, Hold while on CLOCK AND WATCH HANDS MOUNTER.. ketorolac (TORADOL) injection 30 mg (CANCELED) 1259 [...] Helen samson RN)0532 (Given - Provider: Kyra Kim, CASH)0607 (Given - Provider: Kyra Kim, CASH)1120 (Given - Provider: Smita Adrian, CASH)202 (Given - Provider: Alia Johns, CASH) 0005 (Given - Provider: Anca steele RN)0341 (Given - Provider: Kyra Kim, CASH)0656 (Given - Provider: Kyra Kim, CASH)1425 (Given - Provider: Lois Mathis RN)1608 (G iven - Provider: Negar Robison, CASH) 5-10 mg, Oral, EVERY 3 HOURS PRN, modera te to severe pain, Starting Fri03/12/16 at 1256, IF CrCl is UNKNOWN start at lowest end of dosing range. Hold while on CLOCK AND WATCH HANDS MOUNTER or with regular IV opioid dosing., Post-procedure 173 (Given - Provider: Negar Robison RN - Comment: pt requested additional 5 mg)192 (Given - Provider: Negar Robison RN - Comment: pt wanted additional 5mg) prochlorperazine (COMPAZINE) injection 5-10 mg (CANCEL ED) 194 (Given - Provider: Helen Martinez RN) 5-10 mg, Intravenous, EVERY 6 HOURS PRN, nausea, vomiting, Starting Fri03/12/16 at 1415, This is Step 2 of nausea and vomiting management. If nausea not resolved in 15 minutes, give metoclopramide (REGL AN), if ordered (step 3 of nausea and vomiting management), Post -procedure simethicone (MYLICON) chewable tablet 80 mg (CANCELED) 0659 (Given - Provider: Kyra Kim, CASH) 0523 (Given - Provider: Kyra Kim, CASH) 80 mg, Oral, EVERY 6 HOURS PRN, cramping, Starting Fri03/13/16 a t 0647 sodium chloride 0.9% (bottle) irrigation (CANCELED) 11 08 (Given - Provider: Marce Mares MD) PRN, Starting Fri03/12/16 at 1108, Intra-procedure documented in this encounter Additional Health Concerns Assessment Noted Time PHQ-9 Depression Total Score: 19 01/16/2016 7:18 AM CD T documented as of this encounter Care Teams Partition Assembly Machine Operator Relationship Specialty Start Date End Date Bella Sears MD PCP - General General Surgery 02/14/16 04/22/16 Bella Sears MD General Surgery 11/28/14 Tana Peña MD MD Plastic Surgery 10/30/[address] [facility] [address] [place] [address] Abbi Cohen MD MD sheet rock applicator 01/11/[address] [place] [address] documented as of this encounter
--- OUTSIDE RECORDS SUMMARY | 2022-04-12 08:21 | XMS_ITS | Encounter Summary ---
:1995 Author Organization [place] Address [address] [place] [address] Care Team Providers Name Role Phone Bella Sears MD Unavailable Carrie Tinsley MD Primary Care Provider [phone] Reason for Referral Consultation - Closed Specialty Diagnoses / Procedures Referred By Contact Refer red To Contact Diagnoses Gender dysphoria Carrie Tinsley MD [facility] [address] [place] [id number] 7 Referral ID Status Reason Start Date Expiration Date Visits Requ ested Visits Authorized [id number] Closed 07/26/2015 07/25/2016 1 1 SSIONS REPRESENTATIVE Reason for Visit Reason Comments RECHECK HRT Headache Migraines Refill Request Testosterone Encounter Details Date Type Department Care Team Description 07/26/2015 Office Visit [facility] Carrie Tinsley Gender dysphoria (Primary Dx); Medicine Clinic MD Karly Acne vulgaris; [address] [place] [address] CLI [facility]A Migraine without aura and without status migrainosus, not intractable [address] [place] [id number] [place], [place] [phone] (Wo rk) Social History Tobacco Use Types Packs/Day Years Used Date Smoking Tobacco: Light Smoker Cigarettes 0.3 Alcohol Use Standard Drinks/Week Comments Yes 0 (1 standard drink = 0.6 oz pure alcoho l) Sex Assigned at Date Recorded Female 03/20/2020 2:05 PM CDT documented as of this encounter Last Filed Vital Signs Vital Sign Reading Time Taken Comments Blood Pressure 120/84 07/26/2015 10:46 AM ADMISSIONS REPRESENTATIVE Pulse 68 07/26/2015 10:46 AM ADMISSIONS REPRESENTATIVE Temperature 36.7 ??C (98 ??F) 07/26/2015 10:46 AM ADMISSIONS REPRESENTATIVE Respiratory Rate 16 07/26/2015 10:46 AM ADMISSIONS REPRESENTATIVE Oxygen Saturation 97% 07/26/2015 10:46 AM ADMISSIONS REPRESENTATIVE Inhaled Oxygen Concentration - - Weight 74 kg (163 lb 3.2 oz) 07/26/2015 10:46 AM ADMISSIONS REPRESENTATIVE Height 162.6 cm (5' 4) 07/26/2015 10:46 AM ADMISSIONS REPRESENTATIVE Body Mass Index 28.01 07/26/2015 10:46 AM ADMISSIONS REPRESENTATIVE documented in this encounter Patient Instructions Patient InstructionsDeirdre Gutierrez - 08/11/2015 9:51 AM CST [facility] [address] [facility] [address] [place] [address] 08/16/15 @ 9:00a.m (30 minute consult) Called patient on 08/11, 229 & 08/14, left messages, no call back. SSIONS REPRESENTATIVE documented in this encounter Progress Notes Christopher Ji MD - 07/27/2015 8:11 AM CST Preceptor Attestation: Patient seen and discussed with the resident. Assessment and plan reviewed with resident and agreedupon. Supervising Physician: Christopher Ji MD [facility] SSIONS REPRESENTATIVE Carrie Tinsley MD - 07/26/2015 10:58 AM CST LISA Shah is a 20 year old Female to Male individual that uses pronouns he that presents today for: HRT checkup. Refills of meds needed? No On hormones? Yes Due for labs? No ---- History of migraine headaches: He stated that it occurs randomly sometimes 4 times a week, other times twice a month. He has about 5 ED visits for migraine headaches a year. He was seen in the ED yesterday ([facility]), found to be dehydrated he was given 1L fluid along with morphine and imitrex for the headaches. He has had imaging in the past, last one was in 2014 which were all normal. No past surgical history on file. Patient Active Problem List Diagnosis ??? Bipolar affective disorder ??? HSV (herpes simplex virus) infection ??? Gender dysphoria ??? History of psychiatric hospitalization ??? Personal history of tobacco use, presenting hazards to health ??? Acne vulgaris Current Outpatient Prescriptions Medication Sig Dispense Refill ??? Syringe/Needle, Disp, 18G X 1 1 ML MISC Use weekly to draw up testosteron 2 each 0 ??? Syringe/Needle, Disp, 22G X 1-1/2 1 ML MISC 1 each every 7 days 2 each 0 ??? [START ON 08/14/2015] testosterone cypionate (DEPOTESTOTERONE CYPIONATE) 200 MG/ML injection Inject 0.5 mLs (100 mg) into the muscle once a week for 12 doses 2 mL 0 ??? testosterone cypionate (DEPOTESTOTERONE CYPIONATE) 200 MG/ML injection Inject 0.5 mLs (100 mg) into the muscle once a week 2 mL 0 ??? Syringe/Needle, Disp, 22G X 1-1/2 1 ML MISC 1 each every 7 days 20 each 6 ??? Syringe/Needle, Disp, 18G X 1 1 ML MISC 1 each every 7 days 20 each 6 ??? Sharps Container MISC Use each week with sharps 1 each 1 ??? VALACYCLOVIR HCL PO Take 500 mg by mouth No Known Allergies No results found for this or any previous visit (from the past 24 hour(s)). Review of Systems: General ?? Fat redistribution: no ?? Weight change: no HEENT ?? Voice change: YES Cardiovascular (CV) ?? Chest Pains: no ?? Shortness of breath: no Chest ?? Decreased exercise tolerance: no ?? Breast changes/development: no Gastrointestinal (GI) ?? Abdominal pain: no ?? Change in appetite: no Skin ?? Acne or oily skin: YES ?? Change in hair: no Genitourinary () ?? Abnormal vaginal bleeding: no ?? Decreased spontaneous erections: not applicable ?? Change in libido: no ?? New sexual partners: no Musculoskeletal ?? Leg pain or swelling: no Psychiatric (Psych) ?? Depression: no ?? Anxiety/Panic: no ?? Mood: fine Neuro: + Migraine headache (resolving) Physical Exam: Filed Vitals: 07/26/15 1046 BP: 120/84 Pulse: 68 Temp: 98 ??F (36.7 ??C) TempSrc: Oral Resp: 16 Height: 5' 4 (162.6 cm) Weight: 163 lb 3.2 oz (74.027 kg) SpO2: 97% BMI= Body mass index is 28 kg/(m^2). Wt Readings from Last 10 Encounters: 07/26/15 163 lb 3.2 oz (74.027 kg) 06/13/15 165 lb (74.844 kg) 05/25/15 163 lb 12.8 oz (74.299 kg) 04/12/15 154 lb 9.6 oz (70.126 kg) 03/23/15 157 lb 9.6 oz (71.487 kg) 02/08/15 159 lb (72.122 kg) 01/16/15 165 lb (74.844 kg) 11/28/14 156 lb 8 oz (70.988 kg) Appearance: Male appearance and dress GENERAL:: healthy, alert and no distress EYES: Eyes grossly normal to inspection, fundi benign and PERRL HENT: ear canals normal, Nose normal, Mouth- no ulcers, no lesions NECK: no adenopathy, no asymmetry, no masses, and thyroid normal to palpation, supple RESP: lungs clear to auscultation - no rales, no rhonchi, no wheezes CV: regular rates and rhythm, normal S1 S2, and no murmur, no click or rub - MS: extremities normal- no gross deformities noted, no edema SKIN: multiple closed comedones noted on face especially around chin NEURO: Normal strength and tone, sensory exam grossly normal, mentation intact and speech normal, reflexes symmetric Affect: Appropriate/mood-congruent Labs: Office Visit on 06/13/2015 Component Date Value Ref Range Status ??? Albumin 06/13/2015 4.2 3.9 - 5.1 mg/dL Final ??? Alkaline Phosphatase 06/13/2015 53.2 40.0 - 150.0 U/L Final ??? ALT 06/13/2015 28.6 0.0 - 45.0 U/L Final ??? AST 06/13/2015 22.1 0.0 - 45.0 U/L Final ??? Bilirubin Direct 06/13/2015 0.2 0.0 - 0.2 mg/dL Final ??? Bilirubin Total 06/13/2015 0.5 0.2 - 1.3 mg/dL Final ??? Protein Total 06/13/2015 7.3 6.8 - 8.8 g/dL Final ??? Testosterone Total 06/13/2015 316* 8 - 60 ng/dL Final Comment: This test was developed and its performance characteristics determined by the [facility], [facility]. It has not been cleared or approved by the FDA. The laboratory is regulated under CLIA as qualified to perform high-complexity testing. This test is used for clinical purposes. It should not be regarded as investigational or for research. ??? Hemoglobin 06/13/2015 15.7 11.7 - 15.7 g/dL Final ??? Cholesterol 06/13/2015 258.7* 0.0 - 200.0 mg/dL Final ??? Cholesterol/HDL Ratio 06/13/2015 5.7* 0.0 - 5.0 Final ? ? HDL Cholesterol 06/13/2015 45.3 >40.0 mg/dL Final ??? LDL Cholesterol Calculated 06/13/2015 173* 0 - 129 mg/dL Final ??? Triglycerides 06/13/2015 204.5* 0.0 - 150.0 mg/dL Final ??? VLDL Cholesterol 06/13/2015 40.9* 7.0 - 32.0 mg/dL Final Assessment and Plan [facility] was seen today for recheck, headache and refill request. Diagnoses and all orders for this visit: Gender dysphoria: Patient reports desired effects with voice change but would still like more facialhair. He is currently taking testosterone cypionate 100mg weekly. He will follow up in 1 month for his labs and possible dosing adjustments. I will obtain a free testosterone today. Orders: - Testosterone Free and Total - Hemoglobin; Future - Glucose Fasting ([facility]); Future - Lipid panel; Future - Hepatic Panel ([facility]); Future - Testosterone total; Future - PLASTIC SURGERY REFERRAL - EXTERNAL- Patient is interested in top surgery, he is aware that his insurance may not cover the procedure Acne vulgaris Orders: - tretinoin (RETIN-A) 0.025 % cream; Spread a pea size amount into affected area topically at bedtime. Use sunscreen SPF>20. Migraine without aura and without status migrainosus, not intractable: Patient reports frequent attacks that impairs daily functioning. No neurologic deficits noted on exam today. Start prophylactic treatment with propanolol 80mg daily. Continue Imitrex at onset of migraine headache (Patient still hasprescription from his recent ED visit). Orders: - propranolol (INDERAL LA) 80 MG capsule; Take 1 capsule (80 mg) by mouth daily Follow up: Follow up in 1 month. Results by mychart Questions were elicited and answered. Medications Discontinued During This Encounter Medication Reason ??? TRAZODONE HCL PO Stopped by Patient ??? 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 documented in this encounter Results (ABNORMAL) Testosterone total (09/05/2015 1:14 PM CDT) [employer] Method Time Signature Testosterone 835 (H) 8 - 60 [facility] Total ng/dL [facility] Comment: This test was developed and its performa nce characteristics determined by the [facility], ??[facility] Laboratory. It has not been cleared or approved by the FDA . The laboratory is regulated under CLIA as qualified to perform high-complexity testing. This test is used for clinical purposes. It should not be regarded as investigational or for research. Specimen Anatomical Collection Method Collection Time Receive d Time (Source) Location / / Volume Laterality Blood specimen 09/05/2015 1:14 PM 016 1:19 (specimen) CDT PM CDT Christopher Ji MD LAB - BLOOD ORDERABLES Performing Organization Address City/State/ZIP Code Phon e Number [facility] [address] [place], [place] [id number] [place] [address] (ABNORMAL) Lipid panel (09/05/2015 1:14 PM CDT) P athologist Signature Cholesterol 217 (H) <200 mg/dL [facility] Comment: Desirable: <200 mg/dl Triglycerides 196 (H) <150 mg/dL [facility] Comment: Borderline high: ??150-199 mg/dl High: ? 200-499 mg/dl Very high: ? >499 mg/dl HDL Cholesterol 46 (L) >49 mg/dL [facility] LDL Cholesterol Calculated 132 (H) <100 mg/dL [facility] Comment: Above desirable: ??100-129 mg/dl Borderline High: ??130-159 mg/dL High: ? 160-189 mg/dL Very high: ? >189 mg/dl Non HDL Cholesterol 171 (H) <130 mg/dL [facility] Comment: Above Desirable: ??130-159 mg/dl Borderline high: ??160-189 mg/dl High: ? 190-219 mg/dl Very high: ? >219 mg/dl Specimen Anatomical Collection Method Collection Time Receive d Time (Source) Location / / Volume Laterality Blood specimen 09/05/2015 1:14 PM 016 1:19 (specimen) CDT PM CDT Christopher Ji MD LAB - BLOOD ORDERABLES Performing Organization Address City/State/ZIP Code Phon e Number [facility] [address] [place] [address] [facility] (ABNORMAL) Hemoglobin (09/05/2015 1:14 PM CDT) P athologist Signature Hemoglobin 16.6 (H) 11.7 - [facility] 15.7 g/dL [facility] Specimen Anatomical Collection Method Collection Time Receive d Time (Source) Location / / Volume Laterality Blood specimen 09/05/2015 1:14 PM 016 1:19 (specimen) CDT PM CDT Christopher Ji MD LAB - BLOOD ORDERABLES Performing Organization Address City/State/ZIP Code Phon e Number [facility] [address] [place] [address] [facility] (ABNORMAL) Hepatic Panel ([facility]) (09/05/2015 12:12 PM CDT) Analysis Performed At Patho logist Time Signature Albumin 4.4 3.9 - 5.1 [facility] mg/dL [facility] Alkaline 48.8 40.0 - [facility] Phosphatase 150.0 U/L [facility] ALT 28.1 0.0 - 45.0 [facility] U/L [facility] AST 27.6 0.0 - 45.0 [facility] U/L [facility] Bilirubin Direct 0.3 (H) 0.0 - 0.2 [facility] mg/dL [facility] Bilirubin Total 1.3 0.2 - 1.3 [facility] mg/dL [facility] Protein Total 7.5 6.8 - 8.8 [facility] g/dL [facility] Specimen Anatomical Collection Method Collection Time Receive d Time (Source) Location / / Volume Laterality Blood specimen 09/05/2015 12:12 6 (specimen) PM CDT 12:12 PM CDT Christopher Ji MD LAB - [facility] Performing Organization Address City/[facility]/ZIP Code Phon e Number [facility] [address] [place] [address] [phone] [facility] Glucose Fasting ([facility]) (09/05/2015 12:12 PM CDT) P athologist Signature Glucose Fasting 92.0 51.0 - [facility] 110.0 MEDICINE mg/dL [facility] Specimen Anatomical Collection Method Collection Time Receive d Time (Source) Location / / Volume Laterality Blood specimen 09/05/2015 12:12 6 (specimen) PM CDT 12:12 PM CDT Christopher Ji MD LAB - [facility] Performing Organization Address City/[facility]/ZIP Code Phon e Number [facility] [address] [place] [address] [phone] [facility] (ABNORMAL) Testosterone Free and Total (07/26/2015 4:27 PM ADMISSIONS REPRESENTATIVE) [employer] Method Time Signature Testosterone 1,273 (H) 8 - 60 [facility] Total ng/dL [facility] Comment: This test was developed and its performa nce characteristics determined by the [facility], ??[facility]. It has not been cleared or approved by the FDA . The laboratory is regulated under CLIA as qualified to perform high-complexity testing. This test is used for clinical purposes. It should not be regarded as investigational or for research. Sex Hormone Binding 22 (L) 30 - 135 nmol/L [facility] Free Testosterone 38.77 (H) 0.08 - 0.74 ng/dL [facility] Comment: 18-30 Years 0.08-0.74 ng/dL 31-40 Years 0.13-0.92 ng/dL 41-51 Years 0.11-0.58 ng/dL Postmenopausal 0.06-0.38 ng/dL Specimen Anatomical Collection Method Collection Time Receive d Time (Source) Location / / Volume Laterality Blood specimen [facility] BLOOD / 07/26/2015 4:27 PM 07/26 4:32 (specimen) Unknown ADMISSIONS REPRESENTATIVE PM ADMISSIONS REPRESENTATIVE Christopher Ji MD LAB - BLOOD ORDERABLES Performing Organization Address City/State/ZIP Code Phon e Number [facility] [address] [place] [address] [facility] documented in this encounter Visit Diagnoses Diagnosis Gender dysphoria - Primary Acne vulgaris Other acne Migraine without aura and without status migrainosus, not intractable Migraine without aura, without mention o f intractable migraine without mention of status migrainosus documented in this encounter Additional Health Concerns Assessment Noted Time PHQ-9 Depression Total Score: 0 05/17/2015 7:29 AM ADMISSIONS REPRESENTATIVE documented as of this encounter Care Teams City Auditor Relationship Specialty Start Date End Date Carrie Tinsley MD PCP - General 05/16/15 02/13/16 [facility] [address] [place] [address] Bella Sears MD General Surgery 11/28/14 documented as of this encounter
--- OUTSIDE RECORDS SUMMARY | 2022-04-12 08:21 | XMS_ITS | Encounter Summary ---
:1995 Author Organization [place] Address [address] [place] [id number] Care Team Providers Name Role Phone Bella Sears MD Unavailable Carrie Tinsley MD Primary Care Provider [phone] Encounter Details Date Type Department Care Team Description 05/17/2015 Telephone [facility] Carrie Tinsley MD Clinic [facility] [address], [id number] [place] [address] [phone] Social History Tobacco Use Types Packs/Day Years Used Date Smoking Tobacco: Light Smoker Cigarettes 0.3 Alcohol Use Standard Drinks/Week Comments Yes 0 (1 standard drink = 0.6 oz pure alcoho l) Sex Assigned at Date Recorded Female 03/20/2020 2:05 PM CDT documented as of this encounter Miscellaneous Notes Telephone Encounter - Tabatha Moran CMA - 05/17/2015 2:03 PM CST [facility] Family Medicine phone call message- general phone call: Reason for call: Patient calling to see if she can have a visit over the phone instead of driving into clinic. Patient states that it is a waste of time to have to drive in for just a med increase. Please call patient to see if this can happen. Return call needed: Yes OK to leave a message on voice mail? Yes Primary language: Armenian Steeping Press Tender needed? No Call taken on May 17, 2015 at 2:03 PM by Tabatha Moran URE ARTIST 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 documented as of this encounter Visit Diagnoses Not on filedocumented in this encounter Additional Health Concerns Assessment Noted Time PHQ-9 Depression Total Score: 0 05/17/2015 7:29 AM TEXTURE ARTIST documented as of this encounter Care Teams Special Agent In Charge Relationship Specialty Start Date End Date Carrie Tinsley MD PCP - General 05/16/15 02/13/16 [facility] [address] [place] [address] Bella Sears MD General Surgery 11/28/14 documented as of this encounter
--- OUTSIDE RECORDS SUMMARY | 2022-04-12 08:21 | XMS_ITS | Encounter Summary ---
:1995 Author Organization [facility] Address [address] [place] [address] Care Team Providers Name Role Phone Bella Sears MD Unavailable Carrie Tinsley MD Primary Care Provider [phone] Reason for Visit Reason Comments RECHECK HRT Headache Abdominal Pain Encounter Details Date Type Department Care Team Description 09/05/2015 Office Visit [facility] Carrie Tinsley Migrai ne without aura and without status migrainosus, not intractable (Primary Dx); Medicine Clinic MD Karly Gender dysphoria [address] [place] [address] MIR[facility] [address] [place] [address] [place], [place] [phone] (Wo rk) Social History Tobacco Use Types Packs/Day Years Used Date Smoking Tobacco: Light Smoker Cigarettes 0.3 Alcohol Use Standard Drinks/Week Comments Yes 0 (1 standard drink = 0.6 oz pure alcoho l) Sex Assigned at Date Recorded Female 03/20/2020 2:05 PM CDT documented as of this encounter Last Filed Vital Signs Vital Sign Reading Time Taken Comments Blood Pressure 128/85 09/05/2015 11:27 AM CDT Pulse 58 09/05/2015 11:27 AM CDT Temperature 37 ??C (98.6 ??F) 09/05/2015 11:27 AM CDT Respiratory Rate 16 09/05/2015 11:27 AM CDT Oxygen Saturation 98% 09/05/2015 11:27 AM CDT Inhaled Oxygen Concentration - - Weight 74.2 kg (163 lb 9.6 oz) 09/05/2015 11:27 AM CDT Height 162.6 cm (5' 4) 09/05/2015 11:27 AM CDT Body Mass Index 28.08 09/05/2015 11:27 AM CDT documented in this encounter Progress Notes Della Robertson MD - 09/05/2015 11:47 AM CDT Preceptor Attestation: Patient seen and discussed with the resident. Assessment and plan reviewed with resident and agreedupon. Supervising Physician: Della Robertson MD [facility] Carrie Tinsley MD - 09/05/2015 11:18 AM CDT LISA Shah is a 20 year old Female to Male individual that uses pronouns he/his that presents today for: HRT. Refills of meds needed? Yes On hormones? Yes Due for labs? No ---- Accompanied by friend Meghan who was given permission to stay in room. Concerns for injecting wrong; past 3 times thinks he's getting into a vein. More painful, bleeding alot, bruises, sometimes hard, stiff. Moving it around but all on right thigh. Warning signs - draining (pus), warm to touch. Because of difficulty giving shots (freaking out) would like to have Meghan trained to give shots. Testosterone high at last visit - 1200 ng/dL; decrease dose to 80; Interested in pellet insertion; needs to find out if day WHITE x 2 months - hx of WHITE; WHITE stuff works, daily propranolol has helped No past surgical history on file. Patient Active Problem List Diagnosis ??? Bipolar affective disorder ??? HSV (herpes simplex virus) infection ??? Gender dysphoria ??? History of psychiatric hospitalization ??? Personal history of tobacco use, presenting hazards to health ??? Acne vulgaris ??? Migraine headache Current Outpatient Prescriptions Medication Sig Dispense Refill ??? tretinoin (RETIN-A) 0.025 % cream Spread a pea size amount into affected area topically at bedtime. Use sunscreen SPF>20. 45 g 11 ??? propranolol (INDERAL LA) 80 MG capsule Take 1 capsule (80 mg) by mouth daily 30 capsule 0 ??? Syringe/Needle, Disp, 18G X 1 1 ML MISC Use weekly to draw up testosteron 2 each 0 ??? Syringe/Needle, Disp, 22G X 1-1/2 1 ML MISC 1 each every 7 days 2 each 0 ??? testosterone cypionate (DEPOTESTOTERONE CYPIONATE) 200 [...] Review of Systems: General ?? Fat redistribution: YES ?? Weight change: no HEENT ?? Voice change: YES Cardiovascular (CV) ?? Chest Pains: no ?? Shortness of breath: no Chest ?? Decreased exercise tolerance: no ?? Breast changes/development: decreased Gastrointestinal (GI) ?? Abdominal pain: YES ?? Change in appetite: YES Skin ?? Acne or oily skin: YES- not concerned ?? Change in hair: no Genitourinary () ?? Abnormal vaginal bleeding: no ?? Decreased spontaneous erections: N/A ?? Change in libido: no ?? New sexual partners: no Musculoskeletal ?? Leg pain or swelling: no Psychiatric (Psych) ?? Depression: no ?? Anxiety/Panic: no ?? Mood: good Physical Exam: There were no vitals filed for this visit. BMI= There is no weight on file to calculate BMI. Wt Readings from Last 10 Encounters: 07/26/15 [...] no murmur, no click or rub - ABDOMEN: soft, no tenderness, no hepatosplenomegaly, no masses, normal bowel sounds MS: extremities normal- no gross deformities noted, no edema Skin: Injection site normal, non erythematous, no induration, no fluctuance. Affect: Appropriate/mood-congruent Labs: Office Visit on 07/26/2015 Component Date Value Ref Range Status ??? Testosterone Total 07/26/2015 1273* 8 - 60 ng/dL Final Comment: This test was developed and its performance characteristics determined by the [facility], Special Chemistry Laboratory. It has not been cleared or approved by the FDA. The laboratory is regulated under CLIA as qualified to perform high-complexity testing. This test is used for clinical purposes. It should not be regarded as investigational or for research. ??? Sex Hormone Binding Globulin 07/26/2015 22* 30 - 135 nmol/L Final ??? Free Testosterone Calculated 07/26/2015 38.77* 0.08 - 0.74 ng/dL Final Comment: 18-30 Years 0.08-0.74 ng/dL 31-40 Years 0.13-0.92 ng/dL 41-51 Years 0.11-0.58 ng/dL Postmenopausal 0.06-0.38 ng/dL Assessment and Plan Pablo is a 20 year old female to male patient following up for HRT. Jazzmine was seen today for recheck, headache and abdominal pain. Diagnoses and all orders for this visit: History of migraine without aura and without status migrainosus, not intractable: Stable. On prophylactic propanolol which patient states has been beneficial. Orders: - propranolol (INDERAL LA) 80 MG capsule; Take 1 capsule (80 mg) by mouth daily Gender dysphoria: He has had difficulty giving himself T shots because of pain/bruising/bleeding with the last 3 shots. He also has a new dislike of seeing his own blood. His last T level was high at 1273 ng/dL. Plan - transition to androderm patch at 4mg Q24 hour - questions regarding T pellet sent to Dr. Martínez - due for labs today Orders: - Glucose Fasting ([facility]) - Hemoglobin - testosterone (TESTOSTERONE) 4 MG/24HR; Place 1 patch onto the skin At Bedtime - Lipid panel - Hepatic Panel ([facility]) - Testosterone total Follow up: Follow up in 1 month. Results by mychart Questions were elicited and answered. There are no discontinued medications. 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 LIPID PROFILE Routine 09/05/2015 1:14 PM Gender dysphoria Resu lts for this CDT procedure are i n the results section. HEMOGLOBIN Routine 09/05/2015 1:14 PM Gender dysphoria Resul ts for this CDT procedure are i n the results section. HEPATIC PANEL Routine 09/05/2015 12:12 Gender dysphoria Result s for this (LABDAQ) PM CDT procedure are i n the results section. GLUCOSE FASTING Routine 09/05/2015 12:12 Gender dysphoria Resu lts for this (LABDAQ) PM CDT procedure are i n the results section. documented in this encounter Results (ABNORMAL) Testosterone total (09/05/2015 1:14 PM CDT) [facility] Method Time Signature Testosterone 835 (H) 8 - 60 [facility] Total ng/dL [facility] Comment: This test was developed and its performa nce characteristics determined by the [facility], ??Special Chemistry Laboratory. It has not been [...] LAB - BLOOD ORDERABLES Performing Organization Address City/[facility] Code Phon e Number [facility] [address] [place] [address] [facility] (ABNORMAL) Lipid panel (09/05/2015 1:14 PM CDT) athologist Signature Cholesterol 217 (H) <200 mg/dL [facility] Comment: Desirable: <200 mg/dl Triglycerides 196 (H) <150 mg/dL [facility] Comment: Borderline high: ??150-199 mg/dl High: ? 200-499 mg/dl Very high: ? >499 mg/dl HDL Cholesterol 46 (L) >49 mg/dL [facility] LDL Cholesterol Calculated 132 (H) <100 mg/dL [facility] Comment: Above desirable: ??100-129 mg/dl Borderline High: ??130-159 mg/dL High: ? 160-189 mg/dL Very high: ? >189 mg/dl Non HDL Cholesterol 171 (H) <130 mg/dL [facility] Comment: Above Desirable: ??130-159 mg/dl Borderline high: ??160-189 mg/dl High: ? 190-219 mg/dl Very high: ? >219 mg/dl Specimen Anatomical Collection Method Collection Time Receive d Time (Source) Location / / Volume Laterality Blood specimen 09/05/2015 1:14 PM 016 1:19 (specimen) CDT PM CDT Christopher Ji MD LAB - BLOOD ORDERABLES Performing Organization Address City/[facility]/ZIP Code Phon e Number [facility] [address] [place] [address] [facility] (ABNORMAL) Hemoglobin (09/05/2015 1:14 PM CDT) athologist Signature Hemoglobin 16.6 (H) 11.7 - [facility] 15.7 g/dL [facility] Specimen Anatomical Collection Method Collection Time Receive d Time (Source) Location / / Volume Laterality Blood specimen 09/05/2015 1:14 PM 016 1:19 (specimen) CDT PM CDT Christopher Ji MD LAB - BLOOD ORDERABLES Performing Organization Address City/[facility]/ZIP Code Phon e Number [facility] [address] [place] [address] [facility] (ABNORMAL) Hepatic Panel ([facility]) (09/05/2015 12:12 PM CDT) Analysis Performed At [...] Address City/State/ZIP Code Phon e Number [facility] [address] [place], [place] [address] LABDAQ Glucose Fasting ([facility]) (09/05/2015 12:12 PM CDT) athologist Signature Glucose Fasting 92.0 51.0 - [facility] 110.0 MEDICINE mg/dL [facility]Q Specimen Anatomical Collection Method Collection Time Receive d Time (Source) Location / / Volume Laterality Blood specimen 09/05/2015 12:12 6 (specimen) PM CDT 12:12 PM CDT Christopher Ji MD LAB - LABDAQ Performing Organization Address City/State/ZIP Code Phon e Number [facility] [address] [place] [address] [phone] LABDAQ documented in this encounter Visit Diagnoses Diagnosis Migraine without aura and without status migrainosus, not intractable - Primary Migraine without aura, without mention o f intractable migraine without mention of status migrainosus Gender dysphoria documented in this encounter Additional Health Concerns Assessment Noted Time PHQ-9 Depression Total Score: 0 05/17/2015 7:[address] DEPUTY documented as of this encounter Care Teams Consulting Hr Professional Relationship Specialty Start Date End Date Carrie Tinsley MD PCP - General 05/16/15 02/13/16 [facility] [address] [place] [address] [phone] Bella Sears MD General Surgery 11/28/14 documented as of this encounter
--- OUTSIDE RECORDS SUMMARY | 2022-04-12 08:21 | XMS_ITS | Encounter Summary ---
:1995 Author Organization [facility] Address [address] [place] [address] Care Team Providers Name Role Phone Bella Sears MD Unavailable Carrie Tinsley MD Primary Care Provider [phone] Reason for Visit Reason Comments RECHECK HRT Refill Request Encounter Details Date Type Department Care Team Description 06/13/2015 Office Visit [facility] Al[facility] Carrie Tinsley Gender dysphoria (Primary Dx); Medicine Clinic MD Karly Acne vulgaris [address] [place] [address] [facility]IR[facility] [address] 2019 [place], [place] [address] [place], [place] [phone] (Wo rk) Social History Tobacco Use Types Packs/Day Years Used Date Smoking Tobacco: Light Smoker Cigarettes 0.3 Alcohol Use Standard Drinks/Week Comments Yes 0 (1 standard drink = 0.6 oz pure alcoho l) Sex Assigned at Date Recorded Female 03/20/2020 2:05 PM CDT documented as of this encounter Last Filed Vital Signs Vital Sign Reading Time Taken Comments Blood Pressure 116/62 06/13/2015 2:56 PM TAR LEVELER Pulse 70 06/13/2015 2:56 PM TAR LEVELER Temperature 36.7 ??C (98.1 ??F) 06/13/2015 2:56 PM TAR LEVELER Respiratory Rate - - Oxygen Saturation 98% 06/13/2015 2:56 PM TAR LEVELER Inhaled Oxygen Concentration - - Weight 74.8 kg (165 lb) 06/13/2015 2:56 PM TAR LEVELER Height - - Body Mass Index 28.32 05/25/2015 1:29 PM TAR LEVELER documented in this encounter Progress Notes Jose Rafael Sheppard MD - 06/13/2015 3:22 PM CST Preceptor Attestation: Patient seen and discussed with the resident. Assessment and plan reviewed with resident and agreedupon. Supervising Physician: Jose Rafael Sheppard MD [facility] LEVELER Carrie Tinsley MD - 06/13/2015 3:02 PM CST LISA Shah is a 20 year old Female to Male individual that uses pronouns male that presents today for:HRT. Refills of meds needed? Yes On hormones? Yes Due for labs? Yes ---- History reviewed. No pertinent past surgical history. Patient Active Problem List Diagnosis ??? Bipolar affective disorder ??? HSV (herpes simplex virus) infection ??? Gender dysphoria ??? History of psychiatric hospitalization ??? Personal history of tobacco use, presenting hazards to health Current Outpatient Prescriptions Medication Sig Dispense Refill ??? testosterone cypionate (DEPOTESTOTERONE CYPIONATE) 200 MG/ML injection Inject 0.25 mLs (50 mg) into the muscle once a week 1 mL 0 ??? lithium 300 MG tablet Take 1 tablet (300 mg) by mouth 2 times daily 60 tablet 0 ??? Syringe/Needle, Disp, 18G X 1 1 ML MISC Use weekly to draw up testosteron 2 each 0 ??? Syringe/Needle, Disp, 22G X 1-1/2 1 ML MISC 1 each every 7 days 2 each 0 ??? Syringe/Needle, Disp, 22G X 1-1/2 1 ML MISC 1 each every 7 days 20 each 6 ??? Syringe/Needle, Disp, 18G X 1 1 ML MISC 1 each every 7 days 20 each 6 ??? Sharps Container MISC Use each week with sharps 1 each 1 ??? TRAZODONE HCL PO Take 100 mg by mouth ??? VALACYCLOVIR HCL PO Take 500 mg by mouth No Known Allergies No results found for this or any previous visit (from the past 24 hour(s)). Review of Systems: General ?? Fat redistribution: no ?? Weight change: Increased weight HEENT ?? Voice change: deepened Cardiovascular (CV) ?? Chest Pains: no ?? Shortness of breath: no Chest ?? Decreased exercise tolerance: no ?? Breast changes/development: seems smaller Gastrointestinal (GI) ?? Abdominal pain: no ?? Change in appetite: no Skin ?? Acne or oily skin: Yes, does not want to try anything at this ?? Change in hair: no Genitourinary () ?? Abnormal vaginal bleeding: no ?? Decreased spontaneous erections: not applicable ?? Change in libido: no ?? New sexual partners: not applicable Musculoskeletal ?? Leg pain or swelling: no Psychiatric (Psych) ?? Depression: no ?? Anxiety/Panic: no ?? Mood: fine Physical Exam: Filed Vitals: 06/13/15 1456 BP: 116/62 Pulse: 70 Temp: 98.1 ??F (36.7 ??C) TempSrc: Oral Weight: 165 lb (74.844 kg) SpO2: 98% BMI= Body mass index is 28.31 kg/(m^2). Wt Readings from Last 10 Encounters: 06/13/15 165 lb (74.844 kg) 05/25/15 163 [...] to inspection, fundi benign and PERRL HENT: multiple closed comedomes on face RESP: lungs clear to auscultation - no rales, no rhonchi, no wheezes CV: regular rates and rhythm, normal S1 S2, and no murmur ABDOMEN: soft, no tenderness, no hepatosplenomegaly, no masses, normal bowel sounds MS: extremities normal- no gross deformities noted, no edema Affect: Appropriate/mood-congruent Labs: Office Visit on 05/25/2015 Component Date Value Ref Range Status ??? Testosterone Total 05/25/2015 676* 8 - 60 ng/dL Final Comment: This test was developed and its performance characteristics determined by the [facility], Special Chemistry Laboratory. It has not been cleared or approved by the FDA. The laboratory is regulated under CLIA as qualified to perform high-complexity testing. This test is used for clinical purposes. It should not be regarded as investigational or for research. ??? Sex Hormone Binding Globulin 05/25/2015 25* 30 - 135 nmol/L Final ??? Free Testosterone Calculated 05/25/2015 17.29* 0.08 - 0.74 ng/dL Final Comment: 18-30 Years 0.08-0.74 ng/dL 31-40 Years 0.13-0.92 ng/dL 41-51 Years 0.11-0.58 ng/dL Postmenopausal 0.06-0.38 ng/dL Assessment and Plan Jazzmine was seen today for recheck and refill request. Diagnoses and associated orders for this visit: Gender dysphoria: Labs listed below obtained. Increased testosterone IM to 100mg weekly. Discussed risks and benefits. - Syringe/Needle, Disp, 18G X 1 1 ML MISC; Use weekly to draw up testosteron - Syringe/Needle, Disp, 22G X 1-1/2 1 ML MISC; 1 each every 7 days - Glucose Fasting ([facility]); Future - Hepatic Panel ([facility]) - Testosterone total - Hemoglobin - Lipid [place] ([facility]) - testosterone cypionate (DEPOTESTOTERONE CYPIONATE) 200 MG/ML injection; Inject 0.5 mLs (100 mg) into the muscle once a week for 12 doses - testosterone cypionate (DEPOTESTOTERONE CYPIONATE) 200 MG/ML injection; Inject 0.5 mLs (100 mg) into the muscle once a week - testosterone cypionate (DEPOTESTOTERONE CYPIONATE) 200 MG/ML injection; Inject 0.5 mLs (100 mg) into the muscle once a week for 4 doses Acne vulgaris: Discussed treatment with patient. He declined. He would like to continue with his face wash and if symptoms worsen he will seek treatment. Follow up: Follow up in 3 months. Results by mychart Questions were elicited and answered. There are no discontinued medications. LEVELER 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 documented as of this encounter Procedures Procedure Name Priority Date/Time Associated Comments Diagnosis HEPATIC PANEL Routine 06/13/2015 3:34 PM Gender dysphoria Resu lts for this (LABDAQ) TAR L[facility]ELER procedure are i n the results section. LIPID PANEL (LABDAQ) Routine 06/13/2015 3:34 PM Gender dysphor ia Results for this TAR LEVELER procedure are i n the results section. TESTOSTERONE TOTAL Routine 06/13/2015 3:34 PM Gender dysphoria Results for this TAR LEVELER procedure are i n the results section. HEMOGLOBIN Routine 06/13/2015 3:34 PM Gender dysphoria Resul ts for this TAR LEVELER procedure are i n the results section. documented in this encounter Results (ABNORMAL) Lipid [place] ([facility]) (06/13/2015 3:34 PM TAR LEVELER) [facility] gist Method Time Signature Cholesterol 258.7 (H) 0.0 - [facility] 200.0 FAMILY mg/dL [facility] Cholesterol/HDL 5.7 (H) 0.0 - 5.0 [facility] Ratio [facility] HDL Cholesterol 45.3 >40.0 [facility] mg/dL [facility] LDL Cholesterol 173 (H) 0 - 129 [facility] Calculated mg/dL [facility] LABDAQ Triglycerides 204.5 (H) 0.0 - [facility] 150.0 FAMILY mg/dL [facility] LAB[facility]Q VLDL Cholesterol 40.9 (H) 7.0 - [facility] 32.0 FAMILY mg/dL [facility] LAB[facility]Q Specimen Anatomical Collection Method Collection Time Receive d Time (Source) Location / / Volume Laterality Blood specimen VENOUS BLOOD / 06/13/2015 3:34 PM 06/13 3:34 (specimen) Unknown TAR LEVELER PM TAR LEVELER Jose Rafael Sheppard MD LAB - LABDAQ Performing Organization Address City/State/ZIP Code Phon e Number [place] [address] [address] [place], [place] [address] LAB[facility] Hemoglobin (06/13/2015 3:34 PM TAR LEVELER) athologist Signature Hemoglobin 15.7 11.7 - 15.7 [facility] g/dL [facility] Specimen Anatomical Collection Method Collection Time Receive d Time (Source) Location / / Volume Laterality Blood specimen VENOUS BLOOD / 06/13/2015 3:34 PM 06/13 4:47 (specimen) Unknown TAR LEVELER PM TAR LEVELER Jose Rafael Sheppard MD LAB - BLOOD ORDERABLES Performing Organization Address City/[facility]/ZIP Code Phon e Number [address] [phone] [facility] (ABNORMAL) Testosterone total (06/13/2015 3:34 PM TAR LEVELER) Patholo gist Method Time Signature Testosterone 316 (H) 8 - 60 [facility] Total ng/dL [facility] Comment: This test was developed and its performa nce characteristics determined by the [facility], ??Special Chemistry Laboratory. It has not [...] Volume Laterality Blood specimen VENOUS BLOOD / 06/13/2015 3:34 PM 06/13 4:47 (specimen) Unknown TAR LEVELER PM TAR LEVELER Jose Rafael Sheppard MD LAB - BLOOD ORDERABLES Performing Organization Address City/[facility]/ZIP Code Phon e Number [address] [phone] [facility] Hepatic Panel ([facility]) (06/13/2015 3:34 PM TAR LEVELER) P athologist Signature Albumin 4.2 3.9 - 5.1 [facility] mg/dL [facility]Q Alkaline 53.2 40.0 - [facility] Phosphatase 150.0 U/L [facility] LABDAQ ALT 28.6 0.0 - 45.0 [facility] U/L [facility] AST 22.1 0.0 - 45.0 [facility] U/L [facility] LAB[facility]Q Bilirubin Direct 0.2 0.0 - 0.2 [facility] mg/dL [facility] LAB[facility]Q Bilirubin Total 0.5 0.2 - 1.3 [facility] mg/dL [facility] LAB[facility] Protein Total 7.3 6.8 - 8.8 [facility] g/dL [facility] Specimen Anatomical Collection Method Collection Time Receive d Time (Source) Location / / Volume Laterality Blood specimen VENOUS BLOOD / 06/13/2015 3:34 PM 06/13 3:34 (specimen) Unknown TAR LEVELER PM TAR LEVELER Jose Rafael Sheppard MD LAB - LABDAQ Performing Organization Address City/State/ZIP Code Phon e Number [facility] [address] [place] [phone] LABDAQ documented in this encounter Visit Diagnoses Diagnosis Gender dysphoria - Primary Acne vulgaris Other acne documented in this encounter Additional Health Concerns Assessment Noted Time PHQ-9 Depression Total Score: 0 05/17/2015 7:29 AM TAR LEVELER documented as of this encounter Care Teams Combination Welder Apprentice Relationship Specialty Start Date End Date Carrie Tinsley MD PCP - General 05/16/15 02/13/16 [facility] [address] [place] [address] [phone] Bella Sears MD General Surgery 11/28/14 documented as of this encounter
--- OUTSIDE RECORDS SUMMARY | 2022-04-12 08:21 | XMS_ITS | Encounter Summary ---
:1995 Author Organization [facility] Address [address] [place] [address] Care Team Providers Name Role Phone Bella Sears MD Unavailable Carrie Tinsley MD Primary Care Provider [phone] Tana Peña MD Unavailable ReeSofiya mullins MD Unavailable Reason for Referral SHOOTER HELPER - Closed Specialty Diagnoses / Procedures Referred By Contact Refer red To Contact Carrie Tinsley MD [facility] [address] [place], [place] [address] Referral ID Status Reason Start Date Expiration Date Visits Requ ested Visits Authorized [id number] Closed 01/04/2016 01/03/2017 1 1 Reason for Visit Reason Comments RECHECK HRT and refills Pelvic Pain Patient complains of pain in ovaries about 3-4 times weekly - worried about it being related to te stosterone Pain Bone pain - would like to ge t some vitamins Encounter Details Date Type Department Care Team Description 01/04/2016 Office Visit [facility] Carrie Tinsley Gender dysphoria (Primary Dx); Medicine Clinic MD Karly Acne vulgaris; 2019. [facility] Anxiety; [address] 2019 Encounter for smoking cessation counseli ng; [place], [place] Pelvic pa in in female; [id number] Dysmenorrhea [phone] (Wo rk) Social History Tobacco Use Types Packs/Day Years Used Date Smoking Tobacco: Light Smoker Cigarettes 0.3 Alcohol Use Standard Drinks/Week Comments Yes 0 (1 standard drink = 0.6 oz pure alcoho l) Sex Assigned at Date Recorded Female 03/20/2020 2:05 PM CDT documented as of this encounter Last Filed Vital Signs Vital Sign Reading Time Taken Comments Blood Pressure 126/85 01/04/2016 10:09 AM CDT Pulse 74 01/04/2016 10:09 AM CDT Temperature 36.7 ??C (98.1 ??F) 01/04/2016 10:09 AM CDT Respiratory Rate 20 01/04/2016 10:09 AM CDT Oxygen Saturation 97% 01/04/2016 10:09 AM CDT Inhaled Oxygen Concentration - - Weight 69.4 kg (153 lb) 01/04/2016 10:09 AM CDT Height 162.6 cm (5' 4) 01/04/2016 10:09 AM CDT Body Mass Index 26.26 01/04/2016 10:09 AM CDT documented in this encounter Patient Instructions Patient InstructionsTabatha Moran CMA - 01/11/2016 4:04 PM CDT Patient is scheduled on 01/31 at 11:00 am. documented in this encounter Progress Notes Christopher Ji MD - 01/04/2016 10:49 AM CDT Preceptor Attestation: Patient seen and discussed with the resident. Assessment and plan reviewed with resident and agreedupon. Supervising Physician: Christopher Ji MD [facility] Carrie Tinsley MD - 01/04/2016 10:18 AM CDT LISA Shah is a 20 year old Female to Male individual presents today for: HRT He reports pelvic pain. He has history of ovarian cysts and reports cyclic pelvic/lower abdominal pain. He takes ibuprofen which occasionally helps. He was seen at ED and given opoid which provided no relief. He also reports pain with intercourse. Recently had US at clinic in [place], which shows shrinkage of ovaries since starting HRT. He has history of irregular periods. Now amenorrheic secondary to testosterone use. He is interested in elective surgery for total hysterectomy. He reports familyhistory of ovarian cysts. He also reports worsening depression and anxiety related to stress. He was in a relationship that always makes him anxious. He states that he has been anxious and craving cigarette. He has no suicidal or homicidal ideations. Refills of meds needed? Yes On hormones? Yes Due for labs? Future lab. He self administer shots on fridays. ---- No past surgical history on file. Patient Active Problem List Diagnosis ??? Bipolar affective disorder (H) ??? HSV (herpes simplex virus) infection ??? Gender dysphoria ??? History of psychiatric hospitalization ??? Personal history of tobacco use, presenting hazards to health ??? Acne vulgaris ??? Migraine headache ??? Mixed hyperlipidemia Current Outpatient Prescriptions Medication Sig Dispense Refill ??? propranolol (INDERAL LA) 80 MG capsule Take 1 capsule (80 mg) by mouth daily 30 capsule 3 ??? testosterone cypionate (DEPOTESTOTERONE CYPIONATE) 200 MG/ML injection Inject 0.4 mLs (80 mg) into the muscle once a week for 5 doses 2 mL 0 ??? tretinoin (RETIN-A) 0.025 % cream Spread a pea size amount into affected area topically at bedtime. Use sunscreen SPF>20. 45 g 11 ??? Syringe/Needle, Disp, 22G X 1-1/2 1 [...] Weight change: no?? HEENT ?? Voice change: deeper? Cardiovascular (CV) ?? Chest Pains: no ?? Shortness of breath: no?? Chest ?? Decreased exercise tolerance:?? no ?? Breast changes/development: smaller ? Gastrointestinal (GI) ?? Abdominal pain: lower abdominal pain as per hpi ?? Change in appetite: no?? Skin ?? Acne or oily skin: yes, patient not concerned ?? Change in hair: yes, some mild thinning, but he is not concerned? Genitourinary () ?? Abnormal vaginal bleeding: no ? Decreased spontaneous erections: not applicable ?? Change in libido: increased ? New sexual partners: no?? Musculoskeletal ?? Leg pain or swelling: no? Psychiatric (Psych) ?? Depression: no ?? Anxiety/Panic: no ?? Mood:?? okay? Physical Exam: Filed Vitals: 01/04/16 1009 BP: 126/85 Pulse: 74 Temp: 98.1 ??F (36.7 ??C) TempSrc: Oral Resp: 20 Height: 5' 4 (162.6 cm) Weight: 153 lb (69.4 kg) SpO2: 97% BMI= Body mass index is 26.25 kg/(m^2). Wt Readings from Last 10 Encounters: 01/04/16 153 lb (69.4 kg) 09/28/15 163 lb 9.6 oz (74.208 kg) 09/05/15 163 lb 9.6 oz (74.208 kg) 07/26/15 163 lb 3.2 oz (74.027 kg) 06/13/15 165 lb (74.844 kg) 05/25/15 163 lb 12.8 oz (74.299 kg) 04/12/15 154 lb 9.6 oz (70.126 kg) 03/23/15 157 lb 9.6 oz (71.487 kg) 02/08/15 159 lb (72.122 kg) 01/16/15 165 lb (74.844 kg) Appearance: Male appearance and dress GENERAL:: healthy, alert and no distress EYES: Eyes grossly normal to inspection, fundi benign and PERRL HENT: ear canals normal, Nose normal NECK: [...] gross deformities noted, no edema SKIN: multiple acneform papules on cheeks and chin : patient declined Psych: Alert and oriented times 3; coherent speech, normal rate and volume, able to articulate logical thoughts, no tangential thoughts, no hallucinations or delusions. No suicidal or homicidal ideations. Picks at face Affect: Appropriate/mood-congruent Labs: Office Visit on 09/05/2015 Component Date Value Ref Range Status ??? Glucose Fasting 09/05/2015 92.0 51.0 - 110.0 mg/dL Final ??? Hemoglobin 09/05/2015 16.6* 11.7 - 15.7 g/dL Final ? ? Cholesterol 09/05/2015 217* <200 mg/dL Final Desirable: <200 mg/dl ? ? Triglycerides 09/05/2015 196* <150 mg/dL Final Comment: Borderline high: 150-199 mg/dl High: 200-499 mg/dl Very high: >499 mg/dl ? ? HDL Cholesterol 09/05/2015 46* >49 mg/dL Final ? ? LDL Cholesterol Calculated 09/05/2015 132* <100 mg/dL Final Comment: Above desirable: 100-129 mg/dl Borderline High: 130-159 mg/dL High: 160-189 mg/dL Very high: >189 mg/dl ? ? Non HDL Cholesterol 09/05/2015 171* <130 mg/dL Final Comment: Above Desirable: 130-159 mg/dl Borderline high: 160-189 mg/dl High: 190-219 mg/dl Very high: >219 mg/dl ??? Albumin 09/05/2015 4.4 3.9 - 5.1 mg/dL Final ??? Alkaline Phosphatase 09/05/2015 48.8 40.0 - 150.0 U/L Final ??? ALT 09/05/2015 28.1 0.0 - 45.0 U/L Final ??? AST 09/05/2015 27.6 0.0 - 45.0 U/L Final ??? Bilirubin Direct 09/05/2015 0.3* 0.0 - 0.2 mg/dL Final ??? Bilirubin Total 09/05/2015 1.3 0.2 - 1.3 mg/dL Final ??? Protein Total 09/05/2015 7.5 6.8 - 8.8 g/dL Final ??? Testosterone Total 09/05/2015 835* 8 - 60 ng/dL Final Comment: This test was developed and its performance characteristics determined by the [facility], [facility]. It has not been cleared or approved by the FDA. The laboratory is regulated under CLIA as qualified to perform high-complexity testing. This test is used for clinical purposes. It should not be regarded as investigational or for research. Assessment and Plan Jazzmine was seen today for recheck, pelvic pain and pain. Diagnoses and all orders for this visit: Gender dysphoria Patient able to administer self injections. His last Testosterone level was within therapeutic rangeat 835 ng/dL. Continue current dosage of testosterone cypionate 80mg IM weekly. Recheck testosteronelevel at midcycle on Friday or Friday. - testosterone cypionate (DEPOTESTOTERONE CYPIONATE) 200 MG/ML injection; Inject 0.4 mLs (80 mg) into the muscle once a week for 25 doses - Syringe/Needle, Disp, 22G X 1-1/2 1 ML MISC; 1 each every 7 days - Syringe/Needle, Disp, 18G X 1 1 ML MISC; 1 each every 7 days - insulin syringe 31G X 5/16 0.5 ML MISC; 1 applicator once a week - Testosterone Total; Future Acne vulgaris - clindamycin (CLEOCIN T) 1 % external solution; Apply topically 2 times daily Pelvic pain Dysmenorrhea Patient interested in elective total hysterectomy. Referral placed to SHOOTER HELPER. Continue ibuprofen for pain. - SHOOTER HELPER REFERRAL - INTERNAL Anxiety Depression Patient reports more anxiety which is worsening depression. Triggered by new stressors with relationships. No suicidal or homicidal ideations. Advised to follow up with his PCP. He is not on an antidepressant at this time. Historically patient has not done well on SSRIs/SNRIs. He states that he is curr ently taking something ends in jamie which may be benzodiazepine. Patient advised to follow up with PCP who know's patient's history and is aware of meds that he has tried and failed in past. Continue with weekly psychotherapy. - hydrOXYzine (ATARAX) 25 MG tablet; Take 1-2 tablets (25-50 mg) by mouth every 6 hours as needed for anxiety for acute symptomatic relief Encounter for smoking cessation counseling - nicotine (NICODERM CQ) 7 MG/24HR patch 2h hr; Place 1 patch onto the skin every 24 hours Osteoporosis eval/prevention addressed: Yes. Exercise 150min per week recommended. - Calcium Citrate 200 MG TABS; Take 1 tablet by mouth daily - Cholecalciferol (VITAMIN D) 2000 UNITS tablet; Take 2,000 Units by mouth daily Follow up: Follow up in 3 months. Results by mychart Questions were elicited and answered. Medications Discontinued During This Encounter Medication Reason ??? testosterone (ANDRODERM) 2 MG/24HR Alternate therapy ??? testosterone (TESTOSTERONE) 4 MG/24HR Alternate therapy Carrie Tinsley MD 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 It has not [...] 05/15/2016 1:08 PM 05/15 5:08 (specimen) Unknown BELL SPINNER PM BELL SPINNER Christopher Ji MD LAB - BLOOD ORDERABLES Performing Organization Address City/State/ZIP Code Phon e Number [facility] [address] [place], [place] [id number] [place] [address] documented in this encounter Visit Diagnoses Diagnosis Gender dysphoria - Primary Acne vulgaris Other acne Anxiety Anxiety state, unspecified Encounter for smoking cessation counseli Counseling on substance use and abuse Pelvic pain in female Unspecified symptom associated with fema le genital organs Dysmenorrhea documented in this encounter Additional Health Concerns Assessment Noted Time PHQ-9 Depression Total Score: 19 01/16/2016 7:18 AM CD T documented as of this encounter Care Teams Parts Washer Relationship Specialty Start Date End Date Carrie Tinsley MD PCP - General 05/16/15 02/13/16 [facility] [address] [place] [address] Bella Sears MD General Surgery 11/28/14 Tana Peña MD MD Plastic Surgery 10/30/[address] [place] [address] [address] [place], [place] [id number] Sofiya Keenan MD MD 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
--- OUTSIDE RECORDS SUMMARY | 2022-04-12 08:21 | XMS_ITS | Encounter Summary ---
:1995 Author Organization [facility] Address [address] [place] [address] Care Team Providers Name Role Phone Bella Sears MD Unavailable Carrie Tinsley MD Primary Care Provider [phone] Tana Peña MD Unavailable Reason for Visit Reason Onset Date Comments Refill Request 10/31/2015 propranolol (INDERAL LA) 80 MG capsule Encounter Details Date Type Department Care Team Description 10/31/2015 Refill [facility] Carrie Tinsley, Ref ill Request Medicine Clinic (propranolol (INDERAL [address], [facility] [place]) 80 MG capsule) [address] [place] [address] [address] [place] [address] [phone] (Wo rk) Social History Tobacco Use Types Packs/Day Years Used Date Smoking Tobacco: Light Smoker Cigarettes 0.3 Alcohol Use Standard Drinks/Week Comments Yes 0 (1 standard drink = 0.6 oz pure alcoho l) Sex Assigned at Date Recorded Female 03/20/2020 2:05 PM CDT documented as of this encounter Miscellaneous Notes Telephone Encounter - Bonita Parish CMA - 10/31/2015 4:22 PM CDT Date of last visit at clinic: 09/28/15 Please complete refill and CLOSE ENCOUNTER. Closing the encounter signifies the refill is complete. documented in this encounter Plan of Treatment [...] Depression Total Score: 0 05/17/2015 7:29 AM AUTO PARKER documented as of this encounter Care Teams International Coordinator Relationship Specialty Start Date End Date Carrie Tinsley MD PCP - General 05/16/15 02/13/16 [facility] [address] [place], [place] [id number] Bella Sears MD General Surgery 11/28/14 Tana Peña MD MD Plastic Surgery 10/30/[address] [place] [address] [address] [place] [address] documented as of this encounter
--- OUTSIDE RECORDS SUMMARY | 2022-04-12 08:21 | XMS_ITS | Encounter Summary ---
:1995 Author Organization [facility] Address [address] [place] [address] Care Team Providers Name Role Phone Bella Sears MD Unavailable Elissa Borja MD Primary Care Provider Reason for Visit Reason Onset Date Comments Symptoms 05/02/2015 Encounter Details Date Type Department Care Team Description 05/02/2015 Telephone [facility] Elissa Borja MD Symptoms Clinic [address], [address] [place] [id number] [place] [address] [facility] [phone] Social History Tobacco Use Types Packs/Day Years Used Date Smoking Tobacco: Light Smoker Cigarettes 0.3 Alcohol Use Standard Drinks/Week Comments Yes 0 (1 standard drink = 0.6 oz pure alcoho l) Sex Assigned at Date Recorded Female 03/20/2020 2:05 PM CDT documented as of this encounter Miscellaneous Notes Telephone Encounter - Cari Crocker RN - 05/10/2015 2:48 PM CST Returned call to patient to relay message per Dr. Borja. Patient states they will schedule visit in1-2 weeks when needing visit for different vial to further discuss. Cari Crocker RN IOPULMONARY TECHNOLOGIST Telephone Encounter - Cari Crocker RN - 05/05/2015 4:26 PM CST Message per PCP: Please have patient follow up in clinic. May need contraception-consider depo vs Ocps Vs continue T shots. If possible, please follow up with Dr. Martínez/Dr. Jeffers or Fredis Serna. If notavailable, I will be happy to follow up. Attempted to reach patient to relay message per PCP. Unable to reach. Left VM to call and schedule appointment in clinic to further discuss.Left name and call back number. Cari Crocker RN IOPULMONARY TECHNOLOGIST Telephone Encounter - Cari Crocker RN - 05/05/2015 10:57 AM CST Message routed to PCP. Cari Crocker RN IOPULMONARY TECHNOLOGIST Telephone Encounter - Cari Crocker RN - 05/02/2015 1:38 PM CST Message routed to Dr. Borja to follow up per patient request. Cari Crocker RN IOPULMONARY TECHNOLOGIST Telephone Encounter - Macho Reyes - 05/02/2015 1:05 PM CST [facility] Family Medicine phone call message-patient reporting a symptom: Symptom: Patient is currently on testosterone for hormone replacement therapy and he states Dr. Borja told him to call if he experiences a menstrual cycle. Patient states the flow is heavy, similar toperiods he has had in the past when he wasn't on hormones. Please call patient to discuss. Same Day Visit Offered: Yes, declined Additional comments: OK to leave message on voice mail? Yes Primary language: Filipino Ex Chef needed? 

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
--- OUTSIDE RECORDS SUMMARY | 2022-04-12 08:21 | XMS_ITS | Encounter Summary ---
:1995 Author Organization [place] Address [facility] [address] Care Team Providers Name Role Phone Bella Sears MD Unavailable Carrie Tinsley MD Primary Care Provider [phone] Tana Peña MD Unavailable ReeSofiya mullins MD Unavailable Reason for Visit Reason Onset Date Comments Patient Request for Note/Letter 02/05/2016 Encounter Details Date Type Department Care Team Description 02/05/2016 Telephone [facility] Women's Nurse, [facility] Patient Request for Clinic [place] Note/Letter [address] [facility] Professional [address] [facility] [address] [place] [address] Social History Tobacco Use Types Packs/Day Years Used Date Smoking Tobacco: Light Smoker Cigarettes 0.3 Alcohol Use Standard Drinks/Week Comments Yes 0 (1 standard drink = 0.6 oz pure alcoho l) Sex Assigned at Date Recorded Female 03/20/2020 2:05 PM CDT documented as of this encounter Miscellaneous Notes Telephone Encounter - Kyra Rivera RN - 02/05/2016 9:28 AM CDT Jazzmine(Pablo) needing letter for work,surgery 03/12/16 and follow up appt 04/25/16. Will fax to [facility] at #[phone] Telephone Encounter - Kyra Rivera RN - 02/05/2016 9:28 AM CDT ----- Message from Ivonne Stevens RN sent at 02/02/2016 4:40 PM CDT ----- Regarding: Letter to be out of work Jazzmine (Pablo) call asking for a letter to be written stating the surgery date and that he will need to be out of work for one month after surgery that is planned for 03/12/16. He would like the letter faxed to: [facility] in [place] documented in this encounter Plan of Treatment [...] documented as of this encounter Care Teams Primary Care Nurse Practitioner Relationship Specialty Start Date End Date Carrie Tinsley MD PCP - General 05/16/15 02/13/16 [facility] [address] [place], [place] [id number] Bella Sears MD General Surgery 11/28/14 Tana Peña MD MD Plastic Surgery 10/30/15 [address] [facility] [address] [place], [place] [id number] Sofiya Keenan MD MD grocery team member 01/11/16 [facility] [address] [place] [address] documented as of this encounter
--- OUTSIDE RECORDS SUMMARY | 2022-04-12 08:21 | XMS_ITS | Encounter Summary ---
:1995 Author Organization [place] Address [facility] [place] [address] Care Team Providers Name Role Phone Bella Sears MD Unavailable Carrie Tinsley MD Primary Care Provider Tana Peña MD Unavailable Sofiya Keenan MD Unavailable Reason for Visit Reason Comments Establish Care Hysterectomy consult Encounter Details Date Type Department Care Team Description 02/01/2016 Office Visit [facility] Sofiya Keenan Gender dys phoria (Primary Dx); [facility] MD Chloé Other chronic pain; [place] [address] [place] [id number] transgender p erson; [address] Encounter for monitoring testosterone re placement therapy [facility] [place], [place] [facility] [address] [address] [address] [place], [place] (Work) [address] Social History Tobacco Use Types Packs/Day Years Used Date Smoking Tobacco: Light Smoker Cigarettes 0.3 Alcohol Use Standard Drinks/Week Comments Yes 0 (1 standard drink = 0.6 oz pure alcoho l) Sex Assigned at Date Recorded Female 03/20/2020 2:05 PM CDT documented as of this encounter Last Filed Vital Signs Vital Sign Reading Time Taken Comments Blood Pressure 117/77 02/01/2016 11:13 AM CDT Pulse 54 02/01/2016 11:13 AM CDT Temperature - - Respiratory Rate - - Oxygen Saturation - - Inhaled Oxygen Concentration - - Weight 69.1 kg (152 lb 4.8 oz) 02/01/2016 11:13 AM CDT Height 162.6 cm (5' 4) 02/01/2016 11:13 AM CDT Body Mass Index 26.14 02/01/2016 11:13 AM CDT documented in this encounter Progress Notes Sofiya Keenan MD - 02/01/2016 11:39 AM CDT Gynecology Visit Note 02/01/16 CC: Jazzmine Chakraborty (Pablo) presents today for consultation for a hysterectomy HPI: Pablo is a 20 yo nulligravid transitioning from female to male and has been receiving testosterone injections since 03/2015. He states that he has chronic back pain 11/23 and severe pain during intercourse with female only partners 03/25. He has been using lots of IBU and APAP for the pain whichdo not provide any relief. Past prescriptions for hydrocodone have also not helped and he says he does not want a prescription for opiates because he doesn't want them to affect is work as a [employer]. He had an ultrasound and they told him that some measurement was 2.5cm and normal was 5cm. He does not know exactly what they were talking about but thinks that this pelvic organ shrinking as well as the chronic pain may be secondary to the testosterone injection. He talked with another transgender male friend who said this was the case for them and the pain went away post hysterectomy. He notes that his insurance is changing after February and has concerns that if he waits past that point he will have to pay an additional five thousand dollar deductible. In addition to a hysterectomy Pablo is also looking to have a full top and bottom plastic surgery transformation. He would like to work with Dr. Peña at [facility] but notes that her schedule has been very full. A big concern of his is proper nipple grafting and says that she did an exceptional surgery on a friend of his. TAXI DRIVER: Cycles: Before testosterone he had irregular cycles anywhere from 1 to 1.5 months. Bleeding lasted anywhere from 3 days to 1.5 weeks. He experienced lots of pain and cramping and heavy bleeding. His mother recommend he start DMPA shot which he did but stopped 1-2 years ago because he just didn't want to be on that sort of thing anymore and preferred to transition to testosterone. Cysts: He had cysts found on both ovaries on ultrasound which subsequently were gone 3 days later onMRI. Cancer: maternal grandmother had a history of breast cancer. Sexually active only with female partners HSV history No abnormal pap history, last was this year and normal PMH: Gender dysphoria: See HPI, has had diagnosis for long time Autism: He was diagnosed with Asperger's but does not know where he falls on the spectrum. Acne: Treated with cleocin Migraine: treated with propranolol PSH: Colonoscopy for stomach ulcers Family Hx: Fathers side has significant DM-2. 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 Tobacco: smokes 6-8 cigarettes per week Alc: Drinks 1-2 beers per week Caffeine: Drinks lots of pop Exercise: little to none Sex: intercourse with female only partners. Current Outpatient Prescriptions Medication ??? Calcium Citrate 200 MG TABS ??? Cholecalciferol (VITAMIN D) 2000 UNITS tablet ??? clindamycin (CLEOCIN T) 1 % external solution ??? hydrOXYzine (ATARAX) 25 MG tablet ??? nicotine (NICODERM CQ) 7 MG/24HR patch 2h hr ??? testosterone cypionate (DEPOTESTOTERONE CYPIONATE) 200 MG/ML injection ??? Syringe/Needle, Disp, 22G X 1-1/2 1 ML MISC ??? Syringe/Needle, Disp, 18G X 1 1 ML MISC ??? insulin syringe 31G X 5/16 0.5 ML MISC ??? propranolol (INDERAL LA) 80 MG capsule ??? tretinoin (RETIN-A) 0.025 % cream ??? Sharps Container MISC ??? VALACYCLOVIR HCL PO No current facility-administered medications for this visit. ROS: 10 point ROS neg other than the symptoms noted below. MSK: constant bone and joint pain Eye: Blurry vision - (just received glasses) GI: constipation P/E Filed Vitals: 02/01/16 1113 BP: 117/77 Pulse: 54 Height: 1.626 m (5' 4) Weight: 69.083 kg (152 lb 4.8 oz) General: NAD, A&Ox3 Chest: RRR Lungs: clear to auscultation Skin: mild acne on face Assessment and Plan: Jazzmine Chakraborty (Pablo) presents today for consultation for a hysterectomy. He is planning a full transition from female to male and will be consulting with plastic surgery for his other procedures. 1) Hysterectomy/BSO: Patient desires to have these organs removed due to testosterone use and chronic pain that he associates with having female organs while on testosterone. There is known risk for endometrial hyperplasia and ovarian malignancy with testosterone use. Also concerns for development of PCOS and associated metabolic syndrome. Removal of uterus, fallopian tubes and ovaries would allow for possible decrease in testosterone dose which would also be beneficial to the patient's overall health. Discussed with removal of ovaries would need to ensure supplementation for bone health, which he is already currently taking. Also discussed that removal of uterus would preclude future and as Pablo identifies as male, he has no desire for himself. Discussed recommendation forTAH/BSO given no history of penetrative intercourse and easier access to pelvic structures. Discussed R/B/A including risks of bleeding, infection, and damage to surrounding structures of the uterus. All patient's questions answered today. Pablo highly desires to proceed with surgery soon. We will work with Pablo to try and perform his surgery before his insurance transfers. We will consult with plastics to make sure our procedure and how it is completed would not interfere with any further surgeries that would be planned. 2) Pain: Pablo does not want any additional pain medications today and will continue to treat withIBU and APAP. Scribe Disclosure: I, Akash Villegas, am serving as a scribe; to document services personally performed by Dr. Lazcano- -based on data collection and the provider's statements to me. Provider Disclosure: I agree with above History, Review of Systems, Physical exam and Plan. I have reviewed the content of the documentation and have edited it as needed. I have personally performed the services documentedhere and the documentation accurately represents those services and the decisions I have made. Sofiya Keenan MD documented in this encounter Nursing Yennifer Ferguson LPN - 02/01/2016 11:14 AM CDT Chief Complaint Patient presents with ??? Establish Care Hysterectomy consult Yennifer Joyce LPN documented in this encounter Plan of Treatment Scheduled Orders Name Type Priority Associated Diagnoses Order S chedule Mallorie-Operative Procedures Routine Gender dysphoria Ordered: 02/01/2016 Worksheet ([facility]) Other chronic pa in [id number] transgender pers on Encounter for monitoring testosterone replacement therapy Scheduled Procedures Name Priority Associated Diagnoses Date/Time INSERTION, PENILE PROSTHESIS, Gender dys phoria INFLATABLE 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 documented as of this encounter Visit Diagnoses Diagnosis Gender dysphoria - Primary Other chronic pain Ejdvzv-[id number] transgender person Encounter for monitoring testosterone re placement therapy Encounter for therapeutic drug monitorin g documented in this encounter Additional Health Concerns Assessment Noted Time PHQ-9 Depression Total Score: 19 01/16/2016 7:18 AM CD T documented as of this encounter Care Teams Homeopathic Doctor Relationship Specialty Start Date End Date Carrie Tinsley MD PCP - General 05/16/15 02/13/16 [facility] [address] [place] [address] Bella Sears MD General Surgery 11/28/14 Tana Peña MD MD Plastic Surgery 10/30/15 [address] [facility] [address] [place], [place] [id number] Sofiya Keenan MD MD bone char operator 01/11/16 [facility] [address] [place], [place] [id number] documented as of this encounter
--- OUTSIDE RECORDS SUMMARY | 2022-04-12 08:21 | XMS_ITS | Encounter Summary ---
:1995 Author Organization [facility] Address [address] [place] [address] Care Team Providers Name Role Phone Bella Sears MD Unavailable Carrie Tinsley MD Primary Care Provider [phone] Reason for Visit Reason Comments Other HRT Follow up RECHECK Testosterone Encounter Details Date Type Department Care Team Description 05/25/2015 Office Visit [facility] Alvarez Carrie Tinsley [facility] MD Karly (Primary Dx) [address]. [address] [place] [address] [address] [place], [place] [address] [place], [place] [phone] (Wo rk) Social History Tobacco Use Types Packs/Day Years Used Date Smoking Tobacco: Light Smoker Cigarettes 0.3 Alcohol Use Standard Drinks/Week Comments Yes 0 (1 standard drink = 0.6 oz pure alcoho l) Sex Assigned at Date Recorded Female 03/20/2020 2:05 PM CDT documented as of this encounter Last Filed Vital Signs Vital Sign Reading Time Taken Comments Blood Pressure 139/87 05/25/2015 1:29 PM SHUTTLE THREADER Pulse 78 05/25/2015 1:29 PM SHUTTLE THREADER Temperature 36.8 ??C (98.2 ??F) 05/25/2015 1:29 PM SHUTTLE THREADER Respiratory Rate 16 05/25/2015 1:29 PM SHUTTLE THREADER Oxygen Saturation 97% 05/25/2015 1:29 PM SHUTTLE THREADER Inhaled Oxygen Concentration - - Weight 74.3 kg (163 lb 12.8 oz) 05/25/2015 1:29 PM SHUTTLE THREADER Height 162.6 cm (5' 4) 05/25/2015 1:29 PM SHUTTLE THREADER Body Mass Index 28.12 05/25/2015 1:29 PM SHUTTLE THREADER documented in this encounter Patient Instructions Patient InstructionsCarrie Tinsley MD - 05/25/2015 2:05 PM CST Gender Transition Law: Know your Rights. Last updated From: [employer] [place] Chapter Http://nlg[place]nesota.[employer] Changing your Name Anyone who is over the age of 18 and has lived in [place] for at least 6 months can file an application for a name change in [place]. The Application for a Name Change must be filed in the [facility]. The applicant must either pay the filing fee (which is currently $322 in [facility] and $320 in [facility]) or get a fee waiver based on low income. Information about how to obtain a fee waiver is available on the [facility] court website at: www.Hunites.gov/. After the Application and related forms have been filled out, brought to the court of appeals judge to be filed, and the file fee has been paid, the court of appeals judge will give you a hearing date and time for when you must appear before a painter. Alternatively, the court of appeals judge may tell you how to schedule your hearing. Many courts have help centers and /or information on their websites to help people prepare to represent themselves at their hearing. Under [place] law, a name change of a minor requires that both parents have notice that an Application for a Name Change for their minor child will be filed. The applicant must show proof that the non-applicant parent(s) have been served with a Notice of Hearing. If the non-applicant parent cannot be served, then the applicant must publish the Notice of Hearing in the legal newspaper in the county were the non-applicant parent was last known to have lived. If the applicant parent does not know whothe other parent is, then they must bring a certified copy of the child's certificate to the court hearing to show that the non-applicant parent's name is not on the certificate. An applicant for a name change must bring two witnesses to the court hearing to testify about their identity. If the Application is made on behalf of a minor, the minor must be present at the court hearing. Before filing an Application for a Name Change, an applicant should keep two considerations in mind.First, it is illegal to change your name to avoid legal obligations like paying debts, being sued, or being arrested or charged with a crime. Second, any information in an individual's name change filemay be accessed by the public unless the individual's name is being changed because they are in a victim or witness protection program. If the painter approves the Application, they will sign a document called an order Granting Name Change. This Order will be entered into the court's record. Changing important documents like delivery driver/supervisor's licenses, Social Security cards, and bank accounts requires certified copies of the Order, which can be obtained from the court of appeals judge for a fee. One certified copy of the Order should also be kept with the individual to notify certain public agencies, officials or other third parties about theirname change. It is also common for individuals to begin using a new name without formally changing their name. This is legal as long as the individual is not using the new name to commit fraud or other illegal activity. Changing your Certificate If you intend to change both your name and your gender marker on your certificate, you may file an Application for a Name Change with the court. Changes to your certificate will only be made if you can prove that there are exceptional circumstances that make changing the certificate n ecessary. You must state your reasons on your Application form and specifically ask the painter to order the Office of Vital Records ([place] Dept of Health) to change the certificate, indicating which specific items on the certificate are to be changed, and then submit a certified copy of the court order to the Office of Vital Records with the change fee, which is currently $40. To determine ifyou can use your court order to amend a record, review the Requirements Checklist for Amendinga Record With a Court Order, available at www.health.state.[place].us. An trial attorney's advice may be useful when pursuing this option. Changing your Visual Stylist's Licence/State Identification To change your name on your delivery driver/supervisor's license or ID, bring the court order demonstrating your name change to a [employer] location. Be sure to bring your current license/ID as well. Updated licenses are issued for $13.50 . To change the gender marker on your license or ID requires a variance issued by the central officeof [place] [employer] Vehicle services in [place]. You must complete a Petition for Variance of [place] Rules 7410 Identify/Residency and file it with the central office, being sure to include photocopies of your supporting documentation (such as a new or amended certificate and/or a letter from a physician or surgeon confirming some form of permanent physical transition) and a check or money order for $10. Changing your Name/Gender Marker with the Social Security Administration Changing your name and gender marker with the Social Security Administration, which will result in both a change to your [facility] Numident file and, at your request, a new card being issued, can be accomplished by submitting documentation of both your old and new legal identities, suca as a copy of thecourt order used to changed your name or certificate. The [facility] also requires a physician's letter indicating that some permanent physical transition has occurred. Changing your Passport A copy of the court order confirming your name change is required to change the name on your passport. To change the gender marker, the State Department requires a detailed statement from a surgeon or hospital indicating that you have, or plan on having corrective surgery. Note however, the the State D epartment will simply stamp over the previous gender marker on your passport if you request an amendment, indicating the date on which the gender change took place. The State Department may require additional documents to process your request. GOVERNMENT RESOURCE LIST [facility] Courts [address] [place] [address] Www.[email or web address] Pharm[employer]ss.gov [facility] Courts [address] [place] [address] www.mncourts.gov [place] Dept of Health and Office of Vital Records [address] [address] [place] [address] [email or web address].state.[email or web address] Dept of Public Safety [employer] [address] [place] [address] [place] [address] [email or web address].[email or web address]/ [place] Social Security Offices [phone] [place] [facility] [address] [place] [address] [facility] Office [address] [place] [address] Thank you for coming to [facility]. Lab Testing: If you had lab testing today and your results are reassuring or normal they will be mailed to you or sent through [employer]addle within 7 days. If the lab tests need quick action we will call you with the results. The phone number we will call with results is # [phone] (home) . If this is not the best numberplease call our clinic and change the number. Medication Refills: If you need any refills please call your pharmacy and they will contact us. If you need to picker box operator your refill at a new pharmacy, please contact the new pharmacy directly. The new pharmacy will help you get your medications transferred faster. Scheduling: If you have any concerns about today's visit or wish to schedule another appointment please call ouroffice during normal business hours [phone] (8- 5:00 M-F) Medical Concerns: If you have urgent medical concerns please call [phone] at any time of the day. If you have a medical emergency please call 911. Again thank you for choosing [facility] and please let us know how we can best partner with you to improve you and your family's health. TLE THREADER documented in this encounter Progress Notes Christopher Ji MD - 06/01/2015 8:20 AM CST Preceptor Attestation: Patient seen and discussed with the resident. Assessment and plan reviewed with resident and agreedupon. Supervising Physician: Christopher Ji MD [facility] TLE THREADER Carrie Tinsley MD - 05/25/2015 1:45 PM CST LISA Shah is a 20 year old Female to Male individual that uses he pronouns who presents today to follow up his hormone therapy. He is currently on Depotestosterone cypionate IM 30mg weekly. He and his PCP (Dr Bella Devlin) believes that his previously diagnosed bipolar disorder was a misdiagnosis jovany use since stopping lithium and starting testosterone his mood has been stable. States that he is doing well but He fills like he needs a higher dose because he has not noticed much change in his appearance. He would also like information on name and gender certification. Refills of meds needed? Yes On hormones? [...] cypionate (DEPOTESTOTERONE CYPIONATE) 200 MG/ML injection Inject 0.15 mLs (30 mg) into the muscle once a week [...] ?? Fat redistribution: YES ?? Weight change: fluctuating HEENT ?? Voice change: mild drop when Testerone was initiated, but not anymore. Cardiovascular (CV) ?? Chest Pains: no ?? Shortness of breath: no Chest ?? Decreased exercise tolerance: no ?? Breast changes/development: smaller Gastrointestinal (GI) ?? Abdominal pain: no ?? Change in appetite: fluctuates Skin ?? Acne or oily skin: mild acne, not concerned ?? Change in hair: more gaps, unsure Genitourinary () ?? Abnormal vaginal bleeding: no ?? Decreased spontaneous erections: not applicable ?? Change in libido: no ?? New sexual partners: no Musculoskeletal ?? Leg pain or swelling: no Psychiatric (Psych) ?? Depression: no ?? Anxiety/Panic: no ?? Mood: fine Physical Exam: Filed Vitals: 05/25/15 1329 BP: 139/87 Pulse: 78 Temp: 98.2 ??F (36.8 ??C) TempSrc: Oral Resp: 16 Height: 5' 4 (162.6 cm) Weight: 163 lb 12.8 oz (74.299 kg) SpO2: 97% BMI= Body mass index is 28.1 kg/(m^2). Wt Readings from Last 10 Encounters: 05/25/15 163 lb 12.8 oz (74.299 kg) 04/12/15 154 lb 9.6 oz (70.126 kg) 03/23/15 157 lb 9.6 oz (71.487 kg) 02/08/15 159 lb (72.122 kg) 01/16/15 165 lb (74.844 kg) 11/28/14 156 lb 8 oz (70.988 kg) Appearance: Male appearance and dress GENERAL:: healthy, alert and no distress EYES: Eyes grossly normal to inspection, fundi benign and PERRL RESP: lungs clear to auscultation - no rales, no rhonchi, no wheezes CV: regular rates and rhythm, normal S1 S2, no S3 or S4 and no murmur, no click or rub - ABDOMEN: soft, no tenderness, no hepatosplenomegaly, no masses, normal bowel sounds MS: extremities normal- no gross deformities noted, no edema SKIN: no suspicious lesions, no rashes Affect: Appropriate/mood-congruent Labs: Office Visit on 04/12/2015 Component Date Value Ref Range Status ??? [place] Level 04/12/2015 0.5* 0.6 - 1.2 mmol/L Final ??? TSH 04/12/2015 2.89 0.40 - 4.00 mU/L Final ??? Urea Nitrogen 04/12/2015 11.5 7.0 - 19.0 mg/dL Final ??? Calcium 04/12/2015 10.1 8.5 - 10.1 mg/dL Final ??? Chloride 04/12/2015 97.7* 98.0 - 110.0 mmol/L Final ??? Carbon Dioxide 04/12/2015 24.8 20.0 - 32.0 mmol/L Final ??? Creatinine 04/12/2015 0.9 0.5 - 1.0 mg/dL Final ??? Glucose 04/12/2015 90.9 70.0 - 99.0 mg'dL Final ??? Potassium 04/12/2015 3.9 3.2 - 4.6 mmol/dL Final ??? Sodium 04/12/2015 134.0 132.0 - 143.0 mmol/L Final ??? GFR Estimate 04/12/2015 84.8 Final ??? GFR Estimate If Black 04/12/2015 102.7 Final ??? Specific [place] Urine 04/12/2015 1.015 1.005 - 1.030 Final ??? pH Urine 04/12/2015 7.0 4.5 - 8.0 Final ??? Leukocyte Esterase UR 04/12/2015 Negative NEGATIVE Final ??? Nitrite Urine 04/12/2015 Negative NEGATIVE Final ??? Protein UR 04/12/2015 Negative NEGATIVE Final ??? Glucose Urine 04/12/2015 Negative NEGATIVE Final ??? Ketones Urine 04/12/2015 Negative NEGATIVE Final ??? Urobilinogen mg/dL 04/12/2015 0.2 E.U./dL 0.2 E.U./dL Final ??? Bilirubin UR 04/12/2015 Negative NEGATIVE Final ??? Blood UR 04/12/2015 Negative NEGATIVE Final Assessment and Plan Jazzmine was seen today for other and recheck. Diagnoses and associated orders for this visit: Gender dysphoria: Will obtain testosterone levels today. Last testosterone injection was 05/18/2015. Increased testosterone to 50mg weekly. Discussed with patient side effects of hormone therapy. Patient will follow up in 1 month. Provided patient with resources for name and gender certification. - Testosterone Free and Total - testosterone cypionate (DEPOTESTOTERONE CYPIONATE) 200 MG/ML injection; Inject 0.25 mLs (50 mg) into the muscle once a week There are no discontinued medications. 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 documented in this encounter Results (ABNORMAL) Testosterone Free and Total (05/25/2015 2:10 PM SHUTTLE THREADER) [facility] Method Time Signature Testosterone 676 (H) 8 - 60 [facility] Total ng/dL [facility] Comment: This test was developed and its performa nce characteristics determined by the [facility], ??Special Chemistry Laboratory. It has not been cleared or approved by the FDA . The laboratory is regulated under CLIA as qualified to perform high-complexity testing. This test is used for clinical purposes. It should not be regarded as investigational or for research. Sex Hormone Binding 25 (L) 30 - 135 nmol/L [facility] Free Testosterone 17.29 (H) 0.08 - 0.74 ng/dL [facility] Comment: 18-30 Years 0.08-0.74 ng/dL 31-40 Years 0.13-0.92 ng/dL 41-51 Years 0.11-0.58 ng/dL Postmenopausal 0.06-0.38 ng/dL Specimen Anatomical Collection Method Collection Time Receive d Time (Source) Location / / Volume Laterality Blood specimen VENOUS BLOOD / 05/25/2015 2:10 PM 05/25 4:23 (specimen) Unknown SHUTTLE THREADER PM SHUTTLE THREADER Christopher Ji MD LAB - BLOOD ORDERABLES Performing Organization Address City/State/ZIP Code Phon e Number [address] [address], [facility] documented in this encounter Visit Diagnoses Diagnosis Gender dysphoria - Primary documented in this encounter Additional Health Concerns Assessment Noted Time PHQ-9 Depression Total Score: 0 05/17/2015 7:29 AM SHUTTLE THREADER documented as of this encounter Care Teams Oracle Ebs Developer Relationship Specialty Start Date End Date Carrie Tinsley MD PCP - General 05/16/15 02/13/16 [facility] 2019 [place], [place] [id number] Bella Sears MD General Surgery 11/28/14 documented as of this encounter
--- OUTSIDE RECORDS SUMMARY | 2022-04-12 08:21 | XMS_ITS | Encounter Summary ---
:1995 Author Organization [facility] Address [address] [place] [address] Care Team Providers Name Role Phone Bella Sears MD Unavailable Elissa Borja MD Primary Care Provider Carrie Tinsley MD Primary Care Provider Reason for Referral Mental Health Outpatient - Closed Specialty Diagnoses / Procedures Referred By Contact Refer red To Contact Diagnoses H/O bipolar disorder Elissa Borja MD [facility] MEDIC INE 2019 [place], [place] [address] Referral ID Status Reason Start Date Expiration Date Visits Requ ested Visits Authorized [id number] Closed 04/12/2015 04/11/2016 1 1 Reason for Visit Reason Comments RECHECK HRT follow up Refill Request Encounter Details Date Type Department Care Team Description 04/12/2015 Office Visit Eldon Hirsch Elissa Borja, Gender dysphoria (Primary Dx); Medicine Clinic H/O bipolar disorder; 2019. [facility] ZAHIDA HIRSCH Bipol ar disorder, in full remission, most recent episode hypomanic (H) [address] MEDIC[place], [place] [address] 2019 [place], [place] [id number] Social History Tobacco Use Types Packs/Day Years Used Date Smoking Tobacco: Light Smoker Cigarettes 0.3 Alcohol Use Standard Drinks/Week Comments Yes 0 (1 standard drink = 0.6 oz pure alcoho l) Sex Assigned at Date Recorded Female 03/20/2020 2:05 PM CDT documented as of this encounter Last Filed Vital Signs Vital Sign Reading Time Taken Comments Blood Pressure 113/79 04/12/2015 1:06 PM CDT Pulse 89 04/12/2015 1:06 PM CDT Temperature 36.9 ??C (98.4 ??F) 04/12/2015 1:06 PM CDT Respiratory Rate - - Oxygen Saturation 97% 04/12/2015 1:06 PM CDT Inhaled Oxygen Concentration - - Weight 70.1 kg (154 lb 9.6 oz) 04/12/2015 1:06 PM CDT Height - - Body Mass Index 26.54 03/23/2015 12:52 PM CDT documented in this encounter Patient Instructions Patient InstructionsElissa Borja MD - 04/12/2015 1:52 PM CDT Thank you for coming to [facility]. [facility] - refilled for 1 month. Continue as taking. 1-2 / day. Labs in clinic today - will follow up with letter. EKG in clinci today. Testosterone - filled for 2 months. Please make a follow up appointment In 2 months. A referral was made to psychiatry - mental health. If the appointment has not been set up or you arenot aware of the location and time for the appointment please make phone calls as suggested below: If your referral is for [facility] please call [phone] If your referral is to outside [facility] please call the clinic number ([phone]) and ask for your team care transition coordinator. If you need any refills please call your pharmacy and they will contact us. If you have urgent medical concerns please call [phone] at any time of the day. If you have a medical emergency please call [phone] Again thank you for choosing [facility] and please let us know how we can best partner with youto improve your and your family's health. Yes, we received the referral. Patient was called on 04/14/15 and we left a voice mail for her. It looks like we are waiting for her to call the clinic as we need to complete an intake form with her OR MANUFACTURING SUPERVISOR documented in this encounter Progress Notes Doug Dotson MD - 04/12/2015 1:39 PM CDT Preceptor Attestation: Patient seen and discussed with the resident. Assessment and plan reviewed with resident and agreedupon. Supervising Physician: Doug Dotson MD [facility] OR MANUFACTURING SUPERVISOR Elissa Borja MD - 04/12/2015 1:11 PM CDT HPI Pablo is a 19 year old Female to Male individual presents today for: Follow up visit. Currently on T therapy Taking 20mg every week. Shots - every Friday. Refills of meds needed? Yes On hormones? Yes Due for labs? No ---- # Biopoar disorder: Pablo has a h/o bipolar disorder, however feels that he does not have this. He reports acting out during his last visit, as he wanted the testosterone as soon as possible. Current medications include [facility] Jacob and Trazodone. Has been on [facility]. Jacob x 2 months and has been advised to take 300mg BID, however he has only been taking Qdaily. Hesitant on stopping medication on ihis own and would like advise on how to taper. He reports his family practitioner started him on this medication and he has not had an appointment with a psychiatrist. History reviewed. No pertinent past surgical history. Patient Active Problem List Diagnosis ??? Bipolar affective disorder ??? HSV (herpes simplex virus) infection ??? Gender dysphoria ??? H/O psychiatric hospitalisation ??? Personal history of tobacco use, presenting hazards to health Current Outpatient Prescriptions Medication Sig Dispense Refill ??? testosterone cypionate (DEPOTESTOTERONE CYPIONATE) 200 MG/ML injection Inject 0.1 mLs (20 mg) into the muscle once a week 1 mL 0 ??? Syringe/Needle, Disp, 18G X 1 [...] week with sharps 1 each 1 ??? lithium 300 MG tablet Take 1 tablet (300 mg) by mouth 2 times daily ??? TRAZODONE HCL PO Take 100 mg by mouth ??? VALACYCLOVIR HCL PO Take 500 mg by mouth No Known Allergies No results found for this or any previous visit (from the past 24 hour(s)). Review of Systems: General ?? Fat redistribution: no ?? Weight change: no HEENT ?? Voice change: a little bit. Cardiovascular (CV) ?? Chest Pains: no ?? Shortness of breath: no Chest ?? Decreased exercise tolerance: Yes. ?? Breast changes/development: no Gastrointestinal (GI) ?? Abdominal pain: no ?? Change in appetite: yes, hungry. Skin ?? Acne or oily skin: chin area ?? Change in hair: increased hair growth - pubic region and axilla. Genitourinary () ?? Abnormal vaginal bleeding: spotting LMP 04/07/2015 - lasting 4 days. ?? Decreased spontaneous erections: no ?? Change in libido: yes ?? New sexual partners: no Musculoskeletal ?? Leg pain or swelling: no Psychiatric (Psych) ?? Depression: no ?? Anxiety/Panic: no ?? Mood: okay Physical Exam: Filed Vitals: 04/12/15 1306 BP: 113/79 Pulse: 89 Temp: 98.4 ??F (36.9 ??C) TempSrc: Oral Weight: 154 lb 9.6 oz (70.126 kg) SpO2: 97% BMI= Body mass index is 26.52 kg/(m^2). Wt Readings from Last 10 Encounters: 04/12/15 154 lb 9.6 oz (70.126 kg) 03/23/15 157 lb 9.6 oz (71.487 kg) 02/08/15 159 lb (72.122 kg) 01/16/15 165 lb (74.844 kg) 11/28/14 156 lb 8 oz (70.988 kg) Appearance: Male appearance and dress GENERAL:: healthy, alert and no distress EYES: Eyes grossly normal to inspection; and PERRL. RESP: lungs clear to auscultation - no rales, no rhonchi, no wheezes CV: regular rates and rhythm, normal S1 S2, and no murmur Affect: Appropriate/mood-congruent Labs: Office Visit on 02/08/2015 Component Date Value Ref Range Status ??? WBC 02/08/2015 9.7 4.0 - 11.0 K/uL Final ??? RBC 02/08/2015 4.69 3.80 - 5.20 M/uL Final ??? Hemoglobin 02/08/2015 14.2 11.7 - 15.7 g/dL Final ??? Hematocrit 02/08/2015 43.4 35.0 - 47.0 % Final ??? MCV 02/08/2015 92.5 78.0 - 100.0 fL Final ??? MCH 02/08/2015 30.3 26.5 - 35.0 pg Final ??? MCHC 02/08/2015 32.7 32.0 - 36.0 g/dL Final ??? Platelets 02/08/2015 259.0 150.0 - 450.0 K/uL Final ??? Glucose 02/08/2015 103.0* 70.0 - 99.0 mg'dL Final ??? Cholesterol 02/08/2015 198.9 0.0 - 200.0 mg/dL Final ??? Cholesterol/HDL Ratio 02/08/2015 4.1 0.0 - 5.0 Final ? ? HDL Cholesterol 02/08/2015 48.2 >40.0 mg/dL Final ??? LDL Cholesterol Calculated 02/08/2015 117 0 - 129 mg/dL Final ??? Triglycerides 02/08/2015 169.2* 0.0 - 150.0 mg/dL Final ??? VLDL Cholesterol 02/08/2015 33.8* 7.0 - 32.0 mg/dL Final ??? Albumin 02/08/2015 4.1 3.9 - 5.1 mg/dL Final ??? Alkaline Phosphatase 02/08/2015 41.0 40.0 - 150.0 U/L Final ??? ALT 02/08/2015 20.9 0.0 - 45.0 U/L Final ??? AST 02/08/2015 18.8 0.0 - 45.0 U/L Final ??? Bilirubin Direct 02/08/2015 0.2 0.0 - 0.2 mg/dL Final ??? Bilirubin Total 02/08/2015 0.5 0.2 - 1.3 mg/dL Final ??? Protein Total 02/08/2015 7.1 6.8 - 8.8 g/dL Final ??? Testosterone Total 02/08/2015 45 8 - 60 ng/dL Final Comment: This test was developed and its performance characteristics determined by the [facility]. It has not been cleared or approved by the FDA. The laboratory is regulated under CLIA as qualified to perform high-complexity testing. This test is used for clinical purposes. It should not be regarded as investigational or for research. Assessment and Plan Jazzmine was seen today for recheck and refill request. Diagnoses and associated orders for this visit: Gender dysphoria Refilled prescription for Testosterone - increased from 20mg to 30mg Qweekly. Follow up in 2 months. - testosterone cypionate (DEPOTESTOTERONE CYPIONATE) 200 MG/ML injection; Inject 0.15 mLs (30 mg) into the muscle once a week H/O bipolar disorder Will refer to psychiatry for further assistance on diagnosis and management. [facility] Jacob level ordered (however unlikely this is elevated, as dosage is low and pt is taking 300mg daily). Will order TSH and check kidney function, along with UA and calcium levels. EKG completed in clinic: HR 67 bpm intervals within normal range. Sinus rhythm. No st-elevation/depressions noted. Advised to follow up with primary care provider in the interim, with assistance on tapering / dose discussion. Will provide [facility] Jacob 300mg BID refill for 1 more month. - MENTAL HEALTH REFERRAL - [facility] level - TSH with free T4 reflex - Basic Metabolic Panel ([facility]) - Urinalysis (UA) ([facility]) - Cancel: Calcium ([facility]) Bipolar disorder, in full remission, most recent episode hypomanic (HCC) - lithium 300 MG tablet; Take 1 tablet (300 mg) by mouth 2 times daily Contraception: not needed - female partner. Safer sex addressed: Yes. Osteoporosis eval/prevention addressed: No Counselled patient about controlled substances: Yes. Follow up: Follow up in 2 months, sooner if needed. Results by mychart Questions were elicited and answered. There are no discontinued medications. OR MANUFACTURING SUPERVISOR 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 Scheduled Referrals Name Type Priority Associated Diagnoses Order S [facility] REFERRAL Referral VALENTIN H/O bipolar disord er Ordered: 04/12/2015 documented as of this encounter Procedures Procedure Name Priority Date/Time Associated Diagnosis Comme nts URINALYSIS([facility]) Routine 04/12/2015 3:19 PM H/O bipolar diso rder Results for this CDT procedure are i n the results section. BASIC METABOLIC Routine 04/12/2015 2:35 PM H/O bipolar disorde r Results for this PANEL ([facility]) CDT procedure are in the results section. TSH WITH FREE T4 Routine 04/12/2015 2:35 PM H/O bipolar disord er Results for this REFLEX CDT procedure are i n the results section. LITHIUM LEVEL Routine 04/12/2015 2:35 PM H/O bipolar disorder Results for this CDT procedure are i n the results section. EKG 12-LEAD Routine 04/12/2015 Bipolar disorder, in COMPLETE W/READ - full remission, most CLINICS recent episode hypomanic (H) documented in this encounter Results Urinalysis (UA) ([facility]) (04/12/2015 3:19 PM CDT) [facility] Method Time Signature Specific [place] 1.015 1.005 - [facility] Urine 1.030 [facility] MEDICINE LAB[facility]Q pH Urine 7.0 4.5 - 8.0 [facility] MEDICINE [facility] Leukocyte Negative NEGATIVE [facility] Esterase UR [facility] Nitrite Urine Negative NEGATIVE [facility] LAB[facility] Protein UR Negative NEGATIVE [facility] Glucose Urine Negative NEGATIVE [facility] Ketones Urine Negative NEGATIVE [facility] Urobilinogen 0.2 E.U./dL 0.2 E.U./dL [facility] mg/dL [facility] LABDAQ Bilirubin UR Negative NEGATIVE [facility] LAB[facility] Blood UR Negative NEGATIVE [facility] Specimen Anatomical Collection Method Collection Time Receive d Time (Source) Location / / Volume Laterality Urine specimen 04/12/2015 3:19 PM 015 3:19 (specimen) CDT PM CDT Doug Dotson MD LAB - [facility] Performing Organization Address City/[facility] Code Phon e Number [facility] [address] [place] [address] [phone] [facility] (ABNORMAL) Basic Metabolic Panel ([facility]) (04/12/2015 2:35 PM CDT) Analysis Performed At Patho logist Time Signature Urea Nitrogen 11.5 7.0 - 19.0 [facility] mg/dL [facility] Calcium 10.1 8.5 - 10.1 [facility] mg/dL [facility] Chloride 97.7 (L) 98.0 - [facility] 110.0 [facility] mmol/L MEDICINE [facility] Carbon Dioxide 24.8 20.0 - [facility] 32.0 [facility] mmol/L MEDICINE [facility] Creatinine 0.9 0.5 - 1.0 [facility] mg/dL [facility] Glucose 90.9 70.0 - [facility] 99.0 mg'dL [facility] Potassium 3.9 3.2 - 4.6 [facility] mmol/dL [facility] Sodium 134.0 132.0 - [facility] 143.0 [facility] mmol/L MEDIC[facility] GFR Estimate 84.8 mL/min/1.7 [facility] m2 [facility] GFR Estimate If 102.7 mL/min/1.7 [facility] Black m2 [facility] Specimen Anatomical Collection Method Collection Time Receive d Time (Source) Location / / Volume Laterality Blood specimen 04/12/2015 2:35 PM 015 2:36 (specimen) CDT PM CDT Doug Dotson MD LAB - LABDAQ Performing Organization Address City/[facility]/ZIP Code Phon e Number [facility] [address] [place] [address] [phone] [facility] TSH with free T4 reflex (04/12/2015 2:35 PM CDT) P athologist Signature TSH 2.89 0.40 - 4.00 [facility]/L [facility] Specimen Anatomical Collection Method Collection Time Receive d Time (Source) Location / / Volume Laterality Blood specimen 04/12/2015 2:35 PM 10/28/2 015 4:53 (specimen) CDT PM CDT Doug Dotson MD LAB - BLOOD ORDERABLES Performing Organization Address City/[facility]/ZIP Code Phon e Number [address] [address] [facility] (ABNORMAL) [facility] level (04/12/2015 2:35 PM CDT) P athologist Signature [facility] Level 0.5 (L) 0.6 - 1.2 [facility] mmol/L [facility] Specimen Anatomical Collection Method Collection Time Receive d Time (Source) Location / / Volume Laterality Blood specimen 04/12/2015 2:35 PM 015 4:53 (specimen) CDT PM CDT Doug Dotson MD LAB - BLOOD ORDERABLES Performing Organization Address City/[facility] Code Phon e Number [address] [phone] [facility] EKG 12-lead complete w/read - Clinics (04/12/2015) Narrative This result has an attachment that is no t available. Doug Dotson MD ECG ORDERABLES documented in this encounter Visit Diagnoses Diagnosis Gender dysphoria - Primary H/O bipolar disorder Personal history of affective disorder Bipolar disorder, in full remission, mos t recent episode hypomanic (H) Bipolar disorder, unspecified documented in this encounter Additional Health Concerns Assessment Noted Time PHQ-9 Depression Total Score: 0 05/17/2015 7:29 AM SENIOR MANUFACTURING SUPERVISOR documented as of this encounter Care Teams Physicist Light And Optics Relationship Specialty Start Date End Date Elissa Borja MD PCP - General Family Practice 02/08/15 05/15/15 [facility] [address] [place] [address] Carrie Tinsley MD PCP - General 05/16/15 02/13/16 [facility] [address] [place] [address] Bella Sears MD General Surgery 11/28/14 documented as of this encounter
--- OUTSIDE RECORDS SUMMARY | 2022-04-12 08:21 | XMS_ITS | Encounter Summary ---
:1995 Author Organization [place] Address [facility] [place] [address] Care Team Providers Name Role Phone Bella Sears MD Unavailable Carrie Tinsley MD Primary Care Provider [phone] Tana Peña MD Unavailable Sofiya Keenan MD Unavailable Reason for Visit Reason Onset Date Comments Schedule Surgery 02/01/2016 Encounter Details Date Type Department Care Team Description 02/01/2016 Telephone [facility]rell [facility] Schedule Surgery Clinic [place] [address] [facility] Professional Bldg [facility] [address],[place] [address] [place] [phone] Social History Tobacco Use Types Packs/Day Years Used Date Smoking Tobacco: Light Smoker Cigarettes 0.3 Alcohol Use Standard Drinks/Week Comments Yes 0 (1 standard drink = 0.6 oz pure alcoho l) Sex Assigned at Date Recorded Female 03/20/2020 2:05 PM CDT documented as of this encounter Miscellaneous Notes Telephone Encounter - BrightMelchorrenuka - 02/01/2016 1:23 PM CDT Spoke with patient and confirmed surgery date 03/12/16 with arrival time At 7:00a.m with nothing to eat eight hours before scheduled surgery time and clear liquids up to two hours before scheduled surgery time, informed patient to have a pre op physical within thirty days of surgery and that a map and letter will be mailed out. Leather Flesher to complete the following huggins: CHECKLIST Google Calendar : Yes Resident notified: Not Applicable Clinic schedule blocked: Not Applicable Patient notified:Yes Pre op information sent: Yes Given to patient over the phone.Yes Comments: documented in this encounter Plan of Treatment [...] as of this encounter Care Teams Manager Of Customer Billing Relationship Specialty Start Date End Date Carrie Tinsley MD PCP - General 05/16/15 02/13/16 [facility] [address] [place] [place], [place] [id number] Bella Sears MD General Surgery 11/28/14 Tana Peña MD MD Plastic Surgery 10/30/[address] [place] [address] [address] [place], [place] [id number] Sofiya Keenan MD MD feather maker 01/11/16 [address] [facility] [address] [place], [place] [id number] documented as of this encounter
--- OUTSIDE RECORDS SUMMARY | 2022-04-12 08:21 | XMS_ITS | Encounter Summary ---
:1995 Author Organization [facility] Address [address] [place] [address] Care Team Providers Name Role Phone Bella Sears MD Unavailable Carrie Tinsley MD Primary Care Provider [phone] Reason for Referral Consultation - Closed Specialty Diagnoses / Procedures Referred By Contact Refer red To Contact Diagnoses Low serum testosterone Gender dysphoria Carrie Tinsley MD [facility] [address] [place] [address] Referral ID Status Reason Start Date Expiration Date Visits Requ ested Visits Authorized [id number] Closed 09/25/2015 09/24/2016 1 1 Reason for Visit Reason Onset Date Comments Prior Auth - Medication 09/06/2015 Androderm 4mg - testosterone (TESTOSTERONE) 4 MG/24HR Encounter Details Date Type Department Care Team Description 09/06/2015 Telephone [facility] Carrie Tinsley Prior Auth - Medication Medicine Clinic MD Karly (Androderm 4mg - [address] [place] [address] [facility] testosterone [address] [place] [address] (TESTOSTERONE) 4 [place], [place] [address] [place], [place] MG/24HR) [phone] [id number] (Wo rk) Social History Tobacco Use Types Packs/Day Years Used Date Smoking Tobacco: Light Smoker Cigarettes 0.3 Alcohol Use Standard Drinks/Week Comments Yes 0 (1 standard drink = 0.6 oz pure alcoho l) Sex Assigned at Date Recorded Female 03/20/2020 2:05 PM CDT documented as of this encounter Patient Instructions Patient InstructionsDeirdre Gutierrez - 10/19/2015 2:15 PM CDT Urology referral [phone] I have contacted this patient twice and have left 2 vm's- have not heard anything back yet from the patient. ? THanks! ?? Priyanka Sent letter to patient home documented in this encounter Miscellaneous Notes Telephone Encounter - Isrrael Del Angel CMA - 09/29/2015 9:33 AM CDT Prior Authorization: Denied - for both Androderm 4MG and 2MG patches. Denied Reason: Gender reassignment is not a covered benefit under your pharmacy benefit. You do not have primary or secondary hypogonadism (low testosterone levels). Testosterone is a hormone that is important for development in males. If you would like to appeal this decision, a letter can be sent to: [facility] Attention: [facility] [address] [address] [address] [place] [address] Appeal should include member's name and ID ([id number]) Message routed to PCP to review. Isrrael Del Angel September 29, 2015 at 9:33 AM Telephone Encounter - Eddie Gregorio RN - 09/21/2015 3:13 PM CDT Rxs for Androderm 4MG and 2MG patches faxed to patient's pharmacy. Started two separate PAs- one foreach strength of patch- with new diagnosis of low serum testosterone. Eddie Gregorio RN Telephone Encounter - Carrie Tinsley MD - 09/21/2015 9:17 AM CDT New prescription for Androderm patch placed for low testosterone levels. Hard copy handed to triage nurse. Also order placed for urology consult for patient to be evaluated for testosterone pellet withDr. Greg Vila. Carrie Tinsley MD [facility] Telephone Encounter - Eddie Gregorio RN - 09/19/2015 8:19 AM CDT Received notice that prior authorization has been denied. Per denial information, Gender reassignment is not a covered benefit under your pharmacy benefit. You do not have primary or secondary hypogonadism (low testosterone levels). I have placed the denial information is the PCP's mailbox for further review. If you would like to appeal this decision, a letter can be sent to: [facility] Attention: [facility] [address] [address] [address] [place] [address] Appeal should include member's name and ID ([id number]) Message routed to PCP to review. Eddie Gregorio RN Telephone Encounter - Eddie Gregorio RN - 09/11/2015 2:18 PM CDT PA initiated and sent to insurance for review. Eddie Gregorio RN Telephone Encounter - Isrrael Del Angel CMA - 09/06/2015 2:48 PM CDT Prior Authorization Retail Medication Request Medication/Dose: Androderm 4mg - testosterone (TESTOSTERONE) 4 MG/24HR Diagnosis and ICD code: Gender dysphoria [F64.9] New/Renewal/Insurance Change PA: new Previously Tried and Failed Therapies: see chart Insurance ID (if provided): [id number] ([facility]) Insurance Phone (if provided): [phone] Any additional info from fax request: If you received a fax notification from an outside Pharmacy: Pharmacy Name:[facility] Pharmacy #:[phone] Pharmacy 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 Scheduled Referrals Name Type Priority Associated Diagnoses Order S [facility] UROLOGY ADULT REFERRAL Referral Routine Low serum testosterone Ordered: 09/25/2015 - EXTERNAL Gender dysphoria documented as of this encounter Visit Diagnoses Diagnosis Gender dysphoria - Primary Low serum testosterone documented in this encounter Additional Health Concerns Assessment Noted Time PHQ-9 Depression Total Score: 0 05/17/2015 7:29 AM MEAT CUTTER documented as of this encounter Care Teams Engraver Letter Relationship Specialty Start Date End Date Carrie Tinsley MD PCP - General 05/16/15 02/13/16 [place] [address] [place] [address] Bella Sears MD General Surgery 11/28/14 documented as of this encounter
--- OUTSIDE RECORDS SUMMARY | 2022-04-12 08:21 | XMS_ITS | Encounter Summary ---
:1995 Author Organization [place] Address [facility] [place] [address] Care Team Providers Name Role Phone Bella Sears MD Unavailable Tana Peña MD Unavailable Sofiya Keenan MD Unavailable Bella Sears MD Primary Care Provider [phone] Reason for Visit Reason Onset Date Comments Pt. Information/instruction 02/20/2016 Encounter Details Date Type Department Care Team Description 02/20/2016 Telephone [facility] Women's Nurse, [facility] [place] Information/instruction [address] [facility] Professional Bldg [facility] [address] [place] [address] Social History Tobacco Use Types Packs/Day Years Used Date Smoking Tobacco: Light Smoker Cigarettes 0.3 Alcohol Use Standard Drinks/Week Comments Yes 0 (1 standard drink = 0.6 oz pure alcoho l) Sex Assigned at Date Recorded Female 03/20/2020 2:05 PM CDT documented as of this encounter Miscellaneous Notes Telephone Encounter - Kyra Rivera RN - 02/20/2016 4:51 PM CDT Jazzmine left message to inform us she saw another provider to prescribe pain medication, oxycodone because she is needing to take something every 4 hours. She just wanted us to be aware. documented in this encounter Plan of Treatment [...] as of this encounter Care Teams Supervisor Research Kennel Relationship Specialty Start Date End Date Bella Sears MD PCP - General General Surgery 02/14/16 04/22/16 Bella Sears MD General Surgery 11/28/14 Tana Peña MD MD Plastic Surgery 10/30/15 [address] [facility] [address] [place] [address] Sofiya Keenan MD MD english professor 01/11/[address] [facility] [address] [place] [address] documented as of this encounter
--- OUTSIDE RECORDS SUMMARY | 2022-04-12 08:21 | XMS_ITS | Encounter Summary ---
:1995 Author Organization [place] Address [facility]0 [facility] [place] [address] Care Team Providers Name Role Phone Bella Sears MD Unavailable Carrie Tinsley MD Primary Care Provider [phone] Tana Peña MD Unavailable Sofiya Keenan MD Unavailable Reason for Visit (Routine) - Closed Specialty Diagnoses / Procedures Referred By Contact Refer red To Contact Radiology / Diagnoses [facility]- Ur Ultrasound Radiology. Procedures US PELVIC COMP W TRANSVAGINAL [address] [place] [address] Phone: Referral ID Status Reason Start Date Expiration Date Visits Requ ested Visits Authorized [id number] Closed 02/05/2016 02/04/2017 1 1 Encounter Details Date Type Department Care Team Description 02/08/2016 [facility] Imaging MD Chloé female [facility]0 [address] [facility] [address] [place] [address] [phone] Social History Tobacco Use Types Packs/Day Years Used Date Smoking Tobacco: Light Smoker Cigarettes 0.3 Alcohol Use Standard Drinks/Week Comments Yes 0 (1 standard drink = 0.6 oz pure alcoho l) Sex Assigned at Date Recorded Female 03/20/2020 2:05 PM CDT documented as of this encounter Medications [...] % external times daily solutionIndications: Acne vulgaris HYDROcodone-acetaminophen Take 1 tablet by 0 03/13/2016 (NORCO) 5-325 MG per mouth every 6 hours tablet as needed for moderate to severe pain hydrOXYzine (ATARAX) 25 Take 1-2 tablets 60 [...] mouth daily documented as of this encounter Plan of Treatment Scheduled Procedures Name Priority Associated Diagnoses Date/Time INSERTION, PENILE PROSTHESIS, Gender dys phoria INFLATABLE 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 documented as of this encounter Procedures Procedure Name Priority Date/Time Associated Comments Diagnosis US PELVIC Routine 02/08/2016 10:30 Pelvic pain in Results f or this TRANSABDOMINAL AM CDT female procedure are in the results section. documented in this encounter Results US Pelvis Complete without Transvaginal (02/08/2016 10:30 AM CDT) Anatomical Region Laterality Modality Abdomen/Pelvis Ultrasound Specimen (Source) Anatomical Location Collection Method / Collectio n Time Received Time / Laterality Volume Impressions 02/08/2016 11:41 AM CDT IMPRESSION: 1. Small afollicular ovaries, the left > 2 standard deviations below normal, likely secondary to hormone ther apy. No adnexal mass or free fluid. 2. Normal evaluation of the uterus. I have personally reviewed the examinati on and initial interpretation and I agree with the findings. MAXIMO ARORA MD Narrative 02/08/2016 11:41 AM CDT EXAMINATION: US PELVIS COMPLETE WITHOUT TRANSVAGINAL 02/08/2016 10:30 AM ?? CLINICAL HISTORY: History of female to m margo transgender on hormones, history of ovarian cyst COMPARISON: None available PROCEDURE COMMENT: Both transabdominal e valuation of the pelvis. Transvaginal evaluation declined. FINDINGS: Small uterus demonstrates normal homogen eous echogenicity, measuring 5.7 x 4.4 x 3.5 cm. No myometrial masses are seen. The endometrial stripe is normal in thickness measuring 4 mm and is homogeneous in appearance. Bilateral ovaries are small without foll icular architecture. Normal Doppler color flow. The right ovary claudia ures 2.7 x 2.6 x 1.8 cm (6.62 mm), within normal limits. The left ovar y measures 2.1 x 1.7 x 1.3 cm. (2.43 mm), below normal limits. No adnex al mass is seen. There is no simple free fluid in the pelvis. Procedure Note Maximo Arora MD - 02/08/2016Form atting of this note might be different from the original. EXAMINATION: US PELVIS COMPLETE WITHOUT TRANSVAGINAL 02/08/2016 10:30 AM CLINICAL HISTORY: History of female to m margo transgender on hormones, history of ovarian cyst COMPARISON: None available PROCEDURE COMMENT: Both transabdominal e valuation of the pelvis. Transvaginal evaluation declined. FINDINGS: Small uterus demonstrates normal homogen eous echogenicity, measuring 5.7 x 4.4 x 3.5 cm. No myometrial masses are seen. The endometrial stripe is normal in thickness measuring 4 mm and is homogeneous in appearance. Bilateral ovaries are small without foll icular architecture. Normal Doppler color flow. The right ovary claudia ures 2.7 x 2.6 x 1.8 cm (6.62 mm), within normal limits. The left ovar y measures 2.1 x 1.7 x 1.3 cm. (2.43 mm), below normal limits. No adnex al mass is seen. There is no simple free fluid in the pelvis. IMPRESSION: 1. Small afollicular ovaries, the left > 2 standard deviations below normal, likely secondary to hormone ther apy. No adnexal mass or free fluid. 2. Normal evaluation of the uterus. I have personally reviewed the examinati on and initial interpretation and I agree with the findings. MAXIMO ARORA MD Sofiya Keenan MD IMG US ORDERABLES documented in this encounter Visit Diagnoses Diagnosis Pelvic pain in female Unspecified symptom associated with fema le genital organs documented in this encounter Additional Health Concerns Assessment Noted Time PHQ-9 Depression Total Score: 19 01/16/2016 7:18 AM CD T documented as of this encounter Care Teams Mail Inserter Relationship Specialty Start Date End Date Carrie Tinsley MD PCP - General 05/16/15 02/13/16 [facility] [address] [place] [address] Bella Sears MD General Surgery 11/28/14 Tana Peña MD MD Plastic Surgery 10/30/15 [address] [facility] [address] [place] [address] Sofiya Keenan MD MD manager study 01/11/[address] [facility] [address] [place] [address] documented as of this encounter
--- OUTSIDE RECORDS SUMMARY | 2022-04-12 08:21 | XMS_ITS | Encounter Summary ---
:1995 Author Organization [place] Address [address] [place] [address] Care Team Providers Name Role Phone Bella Sears MD Unavailable Elissa Borja MD Primary Care Provider Reason for Referral Consultation - Closed Specialty Diagnoses / Procedures Referred By Contact Refer red To Contact Diagnoses Transgendered Elissa Borja MD [facility] [address] [place], [place] [address] Referral ID Status Reason Start Date Expiration Date Visits Requ ested Visits Authorized [id number] Closed 02/08/2015 02/08/2016 1 1 Reason for Visit Reason Comments Establish Care HRT Encounter Details Date Type Department Care Team Description 02/08/2015 Office Visit Cecilio Alvarez Elissa Borja, Bipolar affective disorder (H) (Primary Dx); Medicine Clinic Transgendered [address] [place] [address] [address] [place] [address] [place] [address] Social History Tobacco Use Types Packs/Day Years Used Date Smoking Tobacco: Light Smoker Cigarettes 0.3 Alcohol Use Standard Drinks/Week Comments Yes 0 (1 standard drink = 0.6 oz pure alcoho l) Sex Assigned at Date Recorded Female 03/20/2020 2:05 PM CDT documented as of this encounter Last Filed Vital Signs Vital Sign Reading Time Taken Comments Blood Pressure 118/81 02/08/2015 8:25 AM CDT Pulse 63 02/08/2015 8:25 AM CDT Temperature 36.6 ??C (97.9 ??F) 02/08/2015 8:25 AM CDT Respiratory Rate - - Oxygen Saturation 98% 02/08/2015 8:25 AM CDT Inhaled Oxygen Concentration - - Weight 72.1 kg (159 lb) 02/08/2015 8:25 AM CDT Height - - Body Mass Index 27.29 01/16/2015 3:19 PM CDT documented in this encounter Patient Instructions Patient InstructionsElissa Borja MD - 02/08/2015 8:55 AM CDT Thank you for coming to [facility]. Fasting labs completed in clinic. A referral was made for Hormone evaluation. . If the appointment has not been set up or you are not aware of the location and time for the appointment please make phone calls as suggested below: If your referral is for [facility] please call [phone] If your referral is to outside [facility] please call the clinic number ([phone]) and ask for your team manager medicare. If you need any refills please call your pharmacy and they will contact us. If you have urgent medical concerns please call [phone] at any time of the day. If you have a medical emergency please call [phone] Again thank you for choosing [facility] and please let us know how we can best partner with youto improve your and your family's health. documented in this encounter Progress Notes Della Robertson MD - 02/08/2015 9:03 AM CDT Preceptor Attestation: Patient seen and discussed with the resident. Assessment and plan reviewed with resident and agreedupon. Supervising Physician: Della Robertson MD [facility] Medicine Elissa Borja MD - 02/08/2015 8:36 AM CDT HPI 1-How do you identify? BOLD all that apply Male Female Transgender FTM MTF Intersex Genderqueer Gender non-conforming Bigender Don't know Other: 2-What age did you first feel your gender identity (internal sense of gender) did not match your physical body? Young age - segundo at 14 years. 3-Have you ever felt depressed or suicidal because your gender identity and body don't match? yes 4-Have you legally changed your name? Not yet. Gender marker on ID's? Not yet. 5-Have you ever seen a health care provider about being transgender? Yes- recently. When were you first treated and where? Not treated yet- undergoing evaluation. 6-What hormones have you been on and for how long? These can be treatments you were prescribed, thatyou got from a friend or bought without a prescription. Include any treatments you currently take. Would like to be on testosterone. 7-Ever had any problems with hormone treatment? n/a. 8-If not on hormones, would you like to be? yes 9-Have you had any gender affirmation surgery? no 10-Do you want to have surgery now or in future? Yes top surgery for now. 11-Are you out at work or at school or at home? BOLD which one No one knows Some people know Everyone knows 12-What are your other questions or concerns today? Is there anything else we should know about you?H/o biopolar disorder and depression - currently seeing psychiatriy and psychology. Psychiatrist - Starting therapy: Lostant 300mg BID. Trazodone PRN 50mg Psychologist for therapy. Jazzmine is a 19 year old Female to Male individual presents today for: discussion of HRT. Came to this clinic via self referral. From [facility]. 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 History reviewed. No pertinent past surgical history. Patient Active Problem List Diagnosis ??? Bipolar affective disorder ??? HSV (herpes simplex virus) infection Past Medical History Diagnosis Date ??? Concussion ??? Uncomplicated asthma Current Outpatient Prescriptions Medication Sig Dispense Refill ??? lithium 300 MG tablet Take 1 tablet (300 mg) by mouth 2 times daily ??? TRAZODONE HCL PO Take 100 mg by mouth ??? VALACYCLOVIR HCL PO Take 500 mg by mouth Family History Problem Relation Age of Onset ??? Hypertension Mother ??? Diabetes Father ??? Diabetes Other ??? Coronary Artery Disease Other ??? Other Cancer Other ??? Colon Cancer No family hx of ??? Cerebrovascular Accident No family hx of ??? Breast Cancer No family hx of ??? Hyperlipidemia No family hx of No Known Allergies Mental Health Assessment: Non gender related Therapist? yes Chemical use history Social alcohol. 1 glass / week. 1 cigarette / day x 5 years. Psych dx history Bipolar disroder Medications prescribed for above and by whom? STONE sent to: [facility] - psychiatrist - unknown name of provider. Review of Systems: CONSTITUTIONAL: NEGATIVE for fever, chills, change in weight INTEGUMENTARY/SKIN: NEGATIVE for worrisome rashes, moles or lesions EYES: NEGATIVE for vision changes or irritation ENT/MOUTH: NEGATIVE for ear, mouth and throat problems RESP: NEGATIVE for significant cough or SOB CV: NEGATIVE for chest pain, palpitations or peripheral edema GI: NEGATIVE for nausea, abdominal pain, heartburn, or change in bowel habits : NEGATIVE for frequency, dysuria, or hematuria MUSCULOSKELETAL: NEGATIVE for significant arthralgias or myalgia NEURO: NEGATIVE for weakness, dizziness or paresthesias ENDOCRINE: NEGATIVE for temperature intolerance, skin/hair changes HEME/ALLERGY: NEGATIVE for bleeding problems PSYCHIATRIC: NEGATIVE for changes in mood or affect Sleep: Do you snore most or the night (as reported by a family member)? No Do you feel sleepy or extremely tired during most of the day? No Social History History Social History ??? Marital Status: Single has a female partner. Spouse Name: N/A Number of Children: N/A ??? Years of Education: N/A Social History Main Topics ??? Smoking status: Light Tobacco Smoker -- 0.25 packs/day ??? Smokeless tobacco: None ??? Alcohol Use: Yes ??? Drug Use: No ??? Sexual Activity: Partners: Female Control/ Protection: None Other Topics Concern ??? None Social History Narrative Marital Status: Partnered Who lives in your household? Family - mom dad Has anyone hurt you physically, for example by pushing, hitting, slapping or kicking you or forcing you to have sex? Denies Do you feel threatened or controlled by a partner, ex-partner or anyone in your life? Denies Sexual Health Sexual concerns: No - STI History: Herpes. History: NO. Last Pap Smear : PAP not indicated. Abnormal Pap Hx: No. Sexual health and relationships: Current: Female Past: Male and female Hx of abuse: No Type of bodies involved: both male and female. Physical Exam: Filed Vitals: 02/08/15 0825 BP: 118/81 Pulse: 63 Temp: 97.9 ??F (36.6 ??C) TempSrc: Oral Weight: 159 lb (72.122 kg) SpO2: 98% BMI= Body mass index is 27.28 kg/(m^2). Appearance: Male appearance and dress GENERAL:: healthy, alert and no distress NECK: no adenopathy, no asymmetry, no masses, and thyroid normal to palpation, supple RESP: lungs clear to auscultation - no rales, no rhonchi, no wheezes CV: regular rates and rhythm, normal S1 S2, and no murmur Psych: Alert and oriented times 3; coherent speech, normal rate and volume, able to articulate logical thoughts, able to abstract reason, no tangential thoughts, no hallucinations or delusions. Affect: Appropriate/mood-congruent Assessment and Plan Jazzmine was seen today for establish care. Diagnoses and associated orders for this visit: Bipolar affective disorder Currently seeing psychiatry and psychology in [place]. STONE sent. Gender Dysphoria. Patient is self referred. Will further refer for Hormone evaluation. Baseline labs obtained. Orders as follows: - CECILIO INTERNAL REFERRAL (Non-Behavioral Health) - CBC with Plt (Cecilio) - Glucose (Cecilio) - Lipid [place] (Cecilio) - Hepatic Panel (Cecilio) - Testosterone total Elissa Borja MD/PGY3 [facility]. 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 Scheduled Referrals Name Type Priority Associated Diagnoses Order S ernestine HERNANDES INTERNAL REFERRAL Referral Routine Transgendered Ordered: 02/08/2015 (Non-Behavioral Health) documented as of this encounter Procedures Procedure Name Priority Date/Time Associated Diagnosis Comme nts HEPATIC PANEL Routine 02/08/2015 8:59 Transgendered Results fo r this (LABDAQ) AM CDT procedure are i n the results section. GLUCOSE (LABDAQ) Routine 02/08/2015 8:59 Transgendered Results for this AM CDT procedure are i n the results section. CBC WITH PLT (LABDAQ) Routine 02/08/2015 8:59 Transgendered Re sults for this AM CDT procedure are i n the results section. LIPID PANEL (LABDAQ) Routine 02/08/2015 8:59 Transgendered Res ults for this AM CDT procedure are i n the results section. TESTOSTERONE TOTAL Routine 02/08/2015 8:59 Transgendered Resul ts for this AM CDT procedure are i n the results section. documented in this encounter Results Testosterone total (02/08/2015 8:59 AM CDT) Analysis Performed At Patho logist Time Signature Testosterone 45 8 - 60 [facility] Total ng/dL [facility] Comment: This test was developed and its performa nce characteristics determined by the [facility], ??Special Chemistry Laboratory. It has not [...] Volume Laterality Blood specimen VENOUS BLOOD / 02/08/2015 8:59 AM 02/08 1:14 (specimen) Unknown CDT PM CDT Della Robertson MD LAB - BLOOD ORDERABLES Performing Organization Address City/State/ZIP Code Phon e Number [facility] [address] [place], [place] [id number] [place] [address] Hepatic Panel ([facility]) (02/08/2015 8:59 AM CDT) P athologist Signature Albumin 4.1 3.9 - 5.1 [facility] mg/dL MEDICINE [facility] Alkaline 41.0 40.0 - [facility] Phosphatase 150.0 U/L [facility] ALT 20.9 0.0 - 45.0 [facility] U/L [facility] AST 18.8 0.0 - 45.0 [facility] U/L [facility] Bilirubin Direct 0.2 0.0 - 0.2 [facility] Y mg/dL MEDICINE [facility] Bilirubin Total 0.5 0.2 - 1.3 [facility] mg/dL [facility] Protein Total 7.1 6.8 - 8.8 [facility] g/dL [facility]IC[facility] Specimen Anatomical Collection Method Collection Time Receive d Time (Source) Location / / Volume Laterality Blood specimen VENOUS BLOOD / 02/08/2015 8:59 AM 02/08 9:00 (specimen) Unknown CDT AM CDT Della Robertson MD LAB - LABDAQ Performing Organization Address City/[facility] Phon e Number [address] [phone] LABDAQ (ABNORMAL) Lipid [place] ([facility]) (02/08/2015 8:59 AM CDT) Patholo gist Method Time Signature Cholesterol 198.9 0.0 - [facility] 200.0 FAMILY mg/dL MEDICINE [facility] Cholesterol/HDL 4.1 0.0 - 5.0 [facility] Ratio FAMILY MEDICINE [facility] HDL Cholesterol 48.2 >40.0 [facility] mg/dL [facility]ILY [facility] LDL Cholesterol 117 0 - 129 [facility] Calculated mg/dL FAMILY MEDICINE [facility] Triglycerides 169.2 (H) 0.0 - [facility] 150.0 FAMILY mg/dL MEDICINE [facility] VLDL Cholesterol 33.8 (H) 7.0 - [facility] 32.0 FAMILY mg/dL MEDICINE LAB[facility]Q Specimen Anatomical Collection Method Collection Time Receive d Time (Source) Location / / Volume Laterality Blood specimen VENOUS BLOOD / 02/08/2015 8:59 AM 02/08 9:00 (specimen) Unknown CDT AM CDT Della Robertson MD LAB - LABDAQ Performing Organization Address City/[facility] Phon e Number [facility] [address] [place] [phone] LABDAQ (ABNORMAL) Glucose ([facility]) (02/08/2015 8:59 AM CDT) P athologist Signature Glucose 103.0 (H) 70.0 - 99.0 [facility] mg'dL MEDICINE LABDAQ Specimen Anatomical Collection Method Collection Time Receive d Time (Source) Location / / Volume Laterality Blood specimen VENOUS BLOOD / 02/08/2015 8:59 AM 02/08 9:00 (specimen) Unknown CDT AM CDT Della Robertson MD LAB - LABDAQ Performing Organization Address [facility] Phon e Number [facility] [address] [place] [phone] LABDAQ CBC with Plt ([facility]) (02/08/2015 8:59 AM CDT) P athologist Signature WBC 9.7 4.0 - 11.0 [facility] K/uL MEDICINE LAB[facility]Q RBC 4.69 3.80 - 5.20 [facility] M/uL MEDICINE [facility] Hemoglobin 14.2 11.7 - 15.7 [facility] g/dL MEDICINE [facility] Hematocrit 43.4 35.0 - 47.0 [facility] % MEDICINE LABDAQ MCV 92.5 78.0 - [facility] 100.0 fL MEDICINE LAB[facility]Q MCH 30.3 26.5 - 35.0 [facility] pg MEDICINE LABDAQ MCHC 32.7 32.0 - 36.0 [facility] g/dL MEDICINE LAB[facility] Platelets 259.0 150.0 - [facility] 450.0 K/uL MEDICINE LABDAQ Specimen Anatomical Collection Method Collection Time Receive d Time (Source) Location / / Volume Laterality Blood specimen VENOUS BLOOD / 02/08/2015 8:59 AM 02/08 8:59 (specimen) Unknown CDT AM CDT Della Robertson MD LAB - LABDAQ Performing Organization Address City/[facility] Phon e Number [facility] [address] [place] [phone] LABDAQ documented in this encounter Visit Diagnoses Diagnosis Bipolar affective disorder (H) - Primary Bipolar disorder, unspecified Transgendered documented in this encounter Care Teams Colorer Machine Relationship Specialty Start Date End Date Elissa Borja MD PCP - General Family Practice 02/08/15 05/15/15 [facility] [address] [place] [address] Bella Sears MD General Surgery 11/28/14 documented as of this encounter
--- OUTSIDE RECORDS SUMMARY | 2022-04-12 08:21 | XMS_ITS | Encounter Summary ---
:1995 Author Organization [place] [place] Address [address] [place] [address] Care Team Providers Name Role Phone Bella Sears MD Unavailable Elissa Borja MD Primary Care Provider Reason for Referral Mental Health Outpatient - Closed Specialty Diagnoses / Procedures Referred By Contact Refer red To Contact Diagnoses Bipolar I disorder (H) Belkis Lees DO [facility] [address] [place], [place] [address] Referral ID Status Reason Start Date Expiration Date Visits Requ ested Visits Authorized [id number] Closed 03/23/2015 03/22/2016 1 1 [facility] Outpatient - Closed Specialty Diagnoses / Procedures Referred By Contact Refer red To Contact Diagnoses Gender dysphoria Bipolar I disorder (H) Belkis Lees DO [facility] [address] [place], [place] [address] Referral ID Status Reason Start Date Expiration Date Visits Requ ested Visits Authorized [id number] Closed 03/23/2015 03/22/2016 1 1 Reason for Visit Reason Comments Other HRT consult Encounter Details Date Type Department Care Team Description 03/23/2015 Office Visit [facility] Family Belkis Lees, Need for Tdap vaccination (Primary Dx); Medicine Clinic DO Gender dysphoria; [address] [place] [address] CLI [facility] Bipolar I disorder (H); [address] H/O psychiatric hospitalisation [place], [place] [address] [place] [phone] Social History Tobacco Use Types Packs/Day Years Used Date Smoking Tobacco: Light Smoker Cigarettes 0.3 Alcohol Use Standard Drinks/Week Comments Yes 0 (1 standard drink = 0.6 oz pure alcoho l) Sex Assigned at Date Recorded Female 03/20/2020 2:05 PM CDT documented as of this encounter Last Filed Vital Signs Vital Sign Reading Time Taken Comments Blood Pressure 121/85 03/23/2015 12:52 PM CDT Pulse 68 03/23/2015 12:52 PM CDT Temperature 36.6 ??C (97.9 ??F) 03/23/2015 12:52 PM CDT Respiratory Rate - - Oxygen Saturation 97% 03/23/2015 12:52 PM CDT Inhaled Oxygen Concentration - - Weight 71.5 kg (157 lb 9.6 oz) 03/23/2015 12:52 PM CDT Height 162.6 cm (5' 4) 03/23/2015 12:52 PM CDT Body Mass Index 27.05 03/23/2015 12:52 PM CDT documented in this encounter Patient Instructions Patient InstructionsHiBelkis driver DO - 03/23/2015 1:30 PM CDT Please make a nurse only appointment to learn how to inject. You will need to come back to clinic in 1-2 months. I will also connect you with our mental health team. Hopefully you can plan appointments at [facility] to see both an MD and psychologist on the same day. Thank you for coming to [facility]. Lab Testing: If you had lab testing today and your results are reassuring or normal they will be mailed to you or sent through CRMnext within 7 days. If the lab tests need quick action we will call you with the results. The phone number we will call with results is # [phone] (home) . If this is not the best numberplease call our clinic and change the number. Medication Refills: If you need any refills please call your pharmacy and they will contact us. If you need to cigar packer and picker your refill at a new pharmacy, please contact the new pharmacy directly. The new pharmacy will help you get your medications transferred faster. Scheduling: If you have any concerns about today's visit or wish to schedule another appointment please call ouroffice during normal business hours [phone] (8- 5:00 M-F) Medical Concerns: If you have urgent medical concerns please call [phone] at any time of the day. If you have a medical emergency please call 911. Again thank you for choosing [facility] and please let us know how we can best partner with you to improve you and your family's health. Gender Transition Law: Know your Rights. Last updated From: National [employer] [place] Chapter Http://nlg[place]ota.Aircuity.[employer] Changing your Name Anyone who is over the age of 18 and has lived in [place] for at least 6 months can file an application for a name change in [place]. The Application for a Name Change must be filed in the [facility]. The applicant must either pay the filing fee (which is currently $322 in [facility] and $320 in [facility]) or get a fee waiver based on low income. Information about how to obtain a fee waiver is available on the [facility] court website at: www.gacourts.gov/. After the Application and related forms have been filled out, brought to the children's court magistrate to be filed, and the file fee has been paid, the children's court magistrate will give you a hearing date and time for when you must appear before a circuit judge. Alternatively, the children's court magistrate may tell you how to schedule your hearing. Many courts have help centers and /or information on their websites to help people prepare to represent themselves at their hearing. Under [place] law, a name change of a minor [...] victim or witness protection program. If the circuit judge approves the Application, they will sign a document called an order Granting Name Change. This Order will be entered into the court's record. Changing important documents like refrigerated national truck driver's licenses, Social Security cards, and bank accounts requires certified copies of the Order, which can be obtained from the children's court magistrate for a fee. One certified copy of [...] your Application form and specifically ask the circuit judge to order the Office of Vital Records ([place] Dept of Health) to change the certificate, [...] Record With a Court Order, available at www.health.[facility].[email or web address].us. An health care attorney's advice may be useful when pursuing this option. Changing your [employer]'s Licence/State Identification To change your name on your refrigerated national truck driver's license or ID, bring the court order demonstrating your name change to a [employer] location. Be sure to bring your current license/ID as well. Updated licenses are issued for $13.50 . To change the gender marker on your license or ID requires a variance issued by the central officeof [place] [employer] services in [place]. You must complete a Petition for Variance of [place] Rules 7410 Identify/Residency and file it with [...] result in both a change to your SSA Num[employer] file and, at your request, a new card being issued, can be accomplished by submitting documentation of both your old and new legal identities, suca as a copy of thecourt order used to changed your name or certificate. The SSA also requires a physician's letter indicating that [...] to process your request. GOVERNMENT RESOURCE LIST [facility] Courts [address] [place] [address] Www.[email or web address].gov [facility] Courts [address] [place] [address] www.mncourts.gov [place] Dept of Health and Office of Vital Records [address] [address] [place] [address] www.health.state.ga.[facility] Dept of Public Safety [employer] [address] [address] www.[facility].org/[place]/ [place] Social Security Offices [phone] [place] [facility] [address] [place] [address] [facility] Office [address] [facility] [address] [place] [address] documented in this encounter Progress Notes Christopher Ji MD - 03/23/2015 5:40 PM CDT Preceptor Attestation: Patient seen and discussed with the resident. Assessment and plan reviewed with resident and agreedupon. Supervising Physician: Christopher Ji MD [facility] Belkis Jeffers DO - 03/23/2015 5:08 PM CDT Primary Care Behavioral Health Consult Note Meeting was: unscheduled Others present: Patient attended the visit alone. Meeting lasted: 3 minutes Identifying Information and Presenting Problem: Dr. Jeffers requested behavioral health meet briefly with patient regarding establish psychotherapyservices. The patient is a 19 year old Monegasque transgender individual and agreed to be seen by behavioral health today. Topics Discussed/Interventions Provided: ?? This provider briefly met the patient on his way out of the clinic today. Introduced myself and explained I would be willing to meet with him for therapy if he was interested. He stated he was interested in establishing psychotherapy services. He also indicated a need for a psychiatry referral. He explained his current PCP (outside of [facility]) has been prescribing his psychiatric medications currently. ?? Briefly explained the referral process and that he would be contacted by the front end web developer for scheduling. Plan: ?? Patient will be scheduled with a member of the behavioral health team to establish psychotherapy services. Celina Baldwin, Ph.D. Behavioral Health Fellow Beliks Jeffers DO - 03/23/2015 12:56 PM CDT LISA Shah is a 19 year old transgender male who presents for follow up of concern(s) listed below: 1. Gender Dysphoria: Pablo previously saw Dr. Borja to discuss starting testosterone therapy, andthis note was reviewed in detail. - Garden about [facility] after doing research - Tried to see an raker buffing wheel at [facility], but pt had negative experience - Says he needs to start testosterone soon, as he feels suicdal due to waiting. He went to [facility] two weeks ago for SI. He has had one suicide attempt in the past, which he says was due tobipolar - PHQ-9: 0 - GAY-7: 1 - PCP is Misha Weiss in [facility]-prescribes medications currently. His PCP and associate are aware of his interest in starting testosterone. - He is no longer seeing a therapist, says he has had a bad relationship with a therapist in the past and he can't afford further therapy visit. He used to see Della in [place]. - Interested in testosterone so he doesn't have girl features anywhere. Says his friends expected him to come out as transgender. Eventually wants top surgery. 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 Pt is out as trans at work. Family is very supportive. Pt is engaged (Lluvia) - Smokes cigarettes (1 pack per week), alcohol occasionally - Was on Depo shot for 3 years, last shot was one year ago. He has irregular periods. Patient Active Problem List Diagnosis ??? Bipolar affective disorder ??? HSV (herpes simplex virus) infection Current Outpatient Prescriptions Medication Sig Dispense Refill ??? lithium 300 MG tablet Take 1 tablet (300 mg) by mouth 2 times daily ??? TRAZODONE HCL PO Take 100 mg by mouth ??? VALACYCLOVIR HCL PO Take 500 mg by mouth No Known Allergies Review of Systems: No recent illness No CP, SOB, cough, nausea, vomiting +depression regarding physical body Physical Exam: Filed Vitals: 03/23/15 1252 BP: 121/85 Pulse: 68 Temp: 97.9 ??F (36.6 ??C) TempSrc: Oral Height: 5' 4 (162.6 cm) Weight: 157 lb 9.6 oz (71.487 kg) SpO2: 97% Body mass index is 27.04 kg/(m^2). GENERAL: healthy, alert, well nourished, well hydrated, no distress RESP: lungs clear to auscultation - no rales, no rhonchi, no wheezes CV: regular rates and rhythm, normal S1 S2, no murmur ABDOMEN: soft, no tenderness, no hepatosplenomegaly, no masses, normal bowel sounds PSYCH: Alert and oriented times 3; speech- coherent , normal rate and volume; able to articulate logical thoughts, able to abstract reason, no tangential thoughts, no hallucinations or delusions, affect- normal Office Visit on 02/08/2015 Component Date Value [...] and its performance characteristics determined by the [facility], Special [facility] Laboratory. It has not been cleared or approved by the FDA. The laboratory is regulated under CLIA as qualified to perform high-complexity testing. This test is used for clinical purposes. It should not be regarded as investigational or for research. Assessment and Plan 1. Gender dysphoria: I reviewed the risks and benefits of initiation of testosterone including increased body and facial hair, changes to voice and body composition, changes in mood, cessation of menstruation, lab abnormalities, and a risk of infertility. An informed consent to hormones was signed andwill be scanned into the chart. Pablo and I decided to start a low dose testosterone to make sure his mental health tolerates the medication. He is aware of the possibility of destabilizing with testosterone. Because of this, he will be set up with Dr. Julio at [facility] for therapy, and they were able to meet each other today. He will get injection training with our RN, Eddie, today. - testosterone cypionate (DEPOTESTOTERONE CYPIONATE) 200 MG/ML injection; Inject 0.1 mLs (20 mg) into the muscle once a week - BEHAVIORAL HEALTH REFERRAL ([facility] interal and external) - Syringe/Needle, Disp, 22G X 1-1/2 1 ML MISC; 1 each every 7 days - Syringe/Needle, Disp, 18G X 1 1 ML MISC; 1 each every 7 days - Sharps Container MISC; Use each week with sharps - RTC in 1-[address] Borja or myself, if tolerating well could increase to 30mg Depo T weekly 2. Bipolar I disorder: Will need to review ROIs. Will also place psychiatry referral as he may be interested in finding a psychiatrist to manage his medications. - BEHAVIORAL HEALTH REFERRAL ([facility] interal and external) - MENTAL HEALTH REFERRAL 3. Need for Tdap vaccination - ADMIN VACCINE, INITIAL - TDAP (BOOSTRIX AGES 10 and older) There are no discontinued medications. Belkis Jeffers DO [facility] Amortization Schedule Clerk Pager [phone] documented in this encounter Nursing Notes Eddie Gregorio RN - 03/23/2015 3:07 PM CDT Met with patient to go over teaching of IM injection for Testosterone. Reviewed proper hand hygiene,technique for drawing up medication, and technique for IM injection. Patient demonstrated all tasks without difficulty and was able to give his own injection of 0.1 mL (20MG) of Testosterone per provider order. Patient brought own supplies and medication. Patient was asked to call clinic with any questions or concerns following injection. 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 Scheduled Referrals Name Type Priority Associated Diagnoses Order S ernestine BEHAVIORAL HEALTH Referral Routine Gender dysphor ia Ordered: 03/23/2015 REFERRAL ([facility] Bipolar I disorder (H) interal and external) MENTAL HEALTH REFERRAL Referral Routine Bipolar I disorder (H) Ordered: 03/23/2015 documented as of this encounter Visit Diagnoses Diagnosis Need for Tdap vaccination - Primary Need for prophylactic vaccination with c ombined [id number]-nkrowhe-[id number] (DTP) vaccine Gender dysphoria Bipolar I disorder (H) Bipolar I disorder, most recent episode (or current) unspecified H/O psychiatric hospitalisation documented in this encounter Care Teams Alteration Manager Relationship Specialty Start Date End Date Elissa Borja MD PCP - General Family Practice 02/08/15 05/15/15 [facility] [address] [place] [address] Bella Sears MD General Surgery 11/28/14 documented as of this encounter
--- OUTSIDE RECORDS SUMMARY | 2022-04-12 08:21 | XMS_ITS | Encounter Summary ---
:1995 Author Organization [facility] Address [address] [facility] [place] [address] Care Team Providers Name Role Phone Bella Sears MD Unavailable Carrie Tinsley MD Primary Care Provider [phone] Tana Peña MD Unavailable Sofiya Keenan MD Unavailable Reason for Visit Reason Onset Date Comments Symptoms 02/05/2016 increased pain Encounter Details Date Type Department Care Team Description 02/05/2016 Telephone [facility] Women's Nurse, [facility] Whs Symptoms (increased Clinic [place] pain) [address] [place] [facility] [address] [address] [address] [place] [address] Social History Tobacco Use Types Packs/Day Years Used Date Smoking Tobacco: Light Smoker Cigarettes 0.3 Alcohol Use Standard Drinks/Week Comments Yes 0 (1 standard drink = 0.6 oz pure alcoho l) Sex Assigned at Date Recorded Female 03/20/2020 2:05 PM CDT documented as of this encounter Miscellaneous Notes Telephone Encounter - Elly Nath RN - 02/05/2016 12:41 PM CDT Called Pablo who reports an increase in pelvic and low back pain. He has a hysterectomy scheduled for 03/12/[address] Keenan as he is transitioning from female to male. He states it is the same pain he has had in the past but it has worsened and seems to mentally be struggling with wanting this surgery to be done. Recently seen in the ER for this pain at [facility] near his home, and was given percocet- which he states is barely touching this pain. Also using ibuprofen and tylenol. He reports having ovarian cyst in the past, and is not sure if this feels the same. He states the pain is so bad I don't want to be here. Advised pt we can see what the surgery schedule has available and that if the surgery is moved pt will need to have a pre op physical completed prior to surgery. Offered support and let pt know that we will discuss with provider. >>Discussed with Dr. Keenan and pt can have evaluation via US for causes of pain. It is not possible at this time to reschedule surgery as pt needs 12 months of testosterone and his surgery date is schedule right at the end of 12 months. Pt will come for US this . 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 Letter sent to fax indicated in previous note. 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 documented as of this encounter Visit Diagnoses Diagnosis Pelvic pain in female - Primary Unspecified symptom associated with fema le genital organs documented in this encounter Additional Health Concerns Assessment Noted Time PHQ-9 Depression Total Score: 19 01/16/2016 7:18 AM CD T documented as of this encounter Care Teams [employer] Professional Relationship Specialty Start Date End Date Carrie Tinsley MD PCP - General 05/16/15 02/13/16 [facility] [address] [place] [address] Bella Sears MD General Surgery 11/28/14 Tana Peña MD MD Plastic Surgery 10/30/[address] [place] [address] [address] [place] [address] Sofiay Keenan MD MD poultry scientist 01/11/16 [address] [address] [place] [address] documented as of this encounter
--- OUTSIDE RECORDS SUMMARY | 2022-04-12 08:21 | XMS_ITS | Encounter Summary ---
:1995 Author Organization [facility] Address [address] [place] [address] Care Team Providers Name Role Phone Bella Sears MD Unavailable Elissa Borja MD Primary Care Provider Encounter Details Date Type Department Care Team Description 02/09/2015 Documentation Only [facility] MD [address] [address] [address] [place], [place] [id number] (Wo rk) Social History Tobacco Use Types Packs/Day Years Used Date Smoking Tobacco: Light Smoker Cigarettes 0.3 Alcohol Use Standard Drinks/Week Comments Yes 0 (1 standard drink = 0.6 oz pure alcoho l) Sex Assigned at Date Recorded Female 03/20/2020 2:05 PM CDT documented as of this encounter Progress Notes Cortney Tracey - 02/09/2015 9:06 AM CDT Attempted to reach patient regarding HRT Consult referral. No answer. Left VM informing that we do not have any availability with Dr. Martínez or Zeyad, so patient has been added to the recall list. 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
--- OUTSIDE RECORDS SUMMARY | 2022-04-12 08:21 | XMS_ITS | Encounter Summary ---
:1995 Author Organization [facility] Address [address] [place] [address] Care Team Providers Name Role Phone Bella Sears MD Unavailable Carrie Tinsley MD Primary Care Provider [phone] Reason for Visit Reason Comments RECHECK HRT Encounter Details Date Type Department Care Team Description 09/28/2015 Office Visit [facility] Carrie Tinsley Gender dysphoria (Primary Dx); Medicine Clinic MD Karly Mixed hyperlipidemia [address] [place] [address] [address] [place] [address] [phone] Social History Tobacco Use Types Packs/Day Years Used Date Smoking Tobacco: Light Smoker Cigarettes 0.3 Alcohol Use Standard Drinks/Week Comments Yes 0 (1 standard drink = 0.6 oz pure alcoho l) Sex Assigned at Date Recorded Female 03/20/2020 2:05 PM CDT documented as of this encounter Last Filed Vital Signs Vital Sign Reading Time Taken Comments Blood Pressure 130/82 09/28/2015 10:07 AM CDT Pulse 63 09/28/2015 10:07 AM CDT Temperature 36.7 ??C (98.1 ??F) 09/28/2015 10:07 AM CDT Respiratory Rate 16 09/28/2015 10:07 AM CDT Oxygen Saturation 100% 09/28/2015 10:07 AM CDT Inhaled Oxygen Concentration - - Weight 74.2 kg (163 lb 9.6 oz) 09/28/2015 10:07 AM CDT Height 162.6 cm (5' 4) 09/28/2015 10:07 AM CDT Body Mass Index 28.08 09/28/2015 10:07 AM CDT documented in this encounter Progress Notes Christopher Ji MD - 09/28/2015 10:32 AM CDT Preceptor Attestation: Patient seen and discussed with the resident. Assessment and plan reviewed with resident and agreedupon. Supervising Physician: Christopher Ji MD [facility] Carrie Tinsley MD - 09/28/2015 10:14 AM CDT Images from the original note were not included. LISA Shah is a 20 year old Female to Male individual that uses pronouns he/him that presents today for: HRT. Refills of meds needed? Yes On hormones? Yes Due for labs? No History reviewed. No pertinent past surgical history. Patient Active Problem List Diagnosis ??? Bipolar affective disorder ??? HSV (herpes simplex virus) infection ??? Gender dysphoria ??? History of psychiatric hospitalization ??? Personal history of tobacco use, presenting hazards to health ??? Acne vulgaris ??? Migraine headache Current Outpatient Prescriptions Medication Sig Dispense Refill ??? testosterone (TESTOSTERONE) 4 MG/24HR Place 1 patch onto the skin daily 90 patch 0 ??? testosterone (ANDRODERM) 2 MG/24HR Place 1 patch onto the skin At Bedtime 90 patch 0 ??? propranolol (INDERAL LA) 80 MG capsule Take 1 capsule (80 mg) by mouth daily 30 capsule 0 ??? testosterone (TESTOSTERONE) 4 MG/24HR Place 1 patch onto the skin At Bedtime 30 patch 0 ??? tretinoin (RETIN-A) 0.025 % cream Spread a pea size amount into affected area topically at bedtime. Use sunscreen SPF>20. 45 g 11 ??? testosterone cypionate (DEPOTESTOTERONE CYPIONATE) 200 MG/ML [...] mouth No Known Allergies Review of Systems: General ?? Fat redistribution: no ?? Weight change: no HEENT ?? Voice change: deeper Cardiovascular (CV) ?? Chest Pains: no ?? Shortness of breath: no Chest ?? Decreased exercise tolerance: no ?? Breast changes/development: smaller Gastrointestinal (GI) ?? Abdominal pain: no ?? Change in appetite: no Skin ?? Acne or oily skin: yes, patient not concerned ?? Change in hair: yes, some mild thinning, but he is not concerned Genitourinary () ?? Abnormal vaginal bleeding: no ?? Decreased spontaneous erections: not applicable ?? Change in libido: increased ?? New sexual partners: no Musculoskeletal ?? Leg pain or swelling: no Psychiatric (Psych) ?? Depression: no ?? Anxiety/Panic: no ?? Mood: okay Physical Exam: Filed Vitals: 09/28/15 1007 BP: 130/82 Pulse: 63 Temp: 98.1 ??F (36.7 ??C) TempSrc: Oral Resp: 16 Height: 5' 4 (162.6 cm) Weight: 163 lb 9.6 oz (74.208 kg) SpO2: 100% BMI= Body mass index is 28.07 kg/(m^2). Wt Readings from Last 10 Encounters: 09/28/15 163 lb 9.6 oz (74.208 kg) [...] tenderness, no hepatosplenomegaly, no masses, normal bowel sound MS: extremities normal- no gross deformities noted, no edema Affect: Appropriate/mood-congruent Labs: Office Visit on 09/05/2015 [...] and its performance characteristics determined by the [facility], [facility]. It has not been cleared or approved by the FDA. The laboratory is regulated under CLIA as qualified to perform high-complexity testing. This test is used for clinical purposes. It should not be regarded as investigational or for research. Assessment and Plan Pablo was seen today for recheck. Diagnoses and all orders for this visit: Gender dysphoria: He has had difficulty giving himself T shots because of pain and bruising. He alsohas a new dislike of seeing his own blood. Initially attempted transitioning to patch which was declined by his insurance company. Referral sent to Urology for evaluation for testosterone pellet, patient needs to schedule the appointment. Patient was interested in testosterone pills, which I was unfamiliar with. However when researched has been shown to be less effective and associated with increasedliver damage which was explained to the patient. His last Testosterone level was within therapeutic range at 835 ng/dL. Continue current dosage of testosterone cypionate 80mg IM weekly. He is looking to get a friend who is a nurse who has training to help administer his testosterone shots. Orders: - testosterone cypionate (DEPOTESTOTERONE CYPIONATE) 200 MG/ML injection; Inject 0.4 mLs (80 mg) into the muscle once a week for 5 doses - testosterone cypionate (DEPOTESTOTERONE CYPIONATE) 200 MG/ML injection; Inject 0.4 mLs (80 mg) into the muscle once a week for 5 doses - testosterone cypionate (DEPOTESTOTERONE CYPIONATE) 200 MG/ML injection; Inject 0.4 mLs (80 mg) into the muscle once a week for 5 doses Hyperlipidemia: His lipid levels have improved in comparison to his previous lab draw. Encouraged diet and exercise. Continue to monitor. Follow up: Follow up in December. Questions were elicited and answered. There are no discontinued medications. 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
--- OUTSIDE RECORDS SUMMARY | 2022-04-12 08:21 | XMS_ITS | Encounter Summary ---
:1995 Author Organization [facility] Address [address] [place] [address] Care Team Providers Name Role Phone Bella Sears MD Unavailable Carrie Tinsley MD Primary Care Provider [phone] Encounter Details Date Type Department Care Team Description 08/19/2015 Telephone [facility] Carrie Tinsley MD Clinic [facility] [address], [address] [facility] [id number] [place] [address] [phone] Social History Tobacco Use Types Packs/Day Years Used Date Smoking Tobacco: Light Smoker Cigarettes 0.3 Alcohol Use Standard Drinks/Week Comments Yes 0 (1 standard drink = 0.6 oz pure alcoho l) Sex Assigned at Date Recorded Female 03/20/2020 2:05 PM CDT documented as of this encounter Miscellaneous Notes Telephone Encounter - Carrie Tinsley MD - 08/19/2015 5:26 PM PROJECT ECONOMIST Attempted to reach patient regarding elevated testosterone levels, no answer. 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
--- OUTSIDE RECORDS SUMMARY | 2022-04-12 08:21 | XMS_ITS | Encounter Summary ---
:1995 Author Organization [facility] Address [address] [place] [address]. [place] [address] Care Team Providers Name Role Phone Bella Sears MD Unavailable Carrie Tinsley MD Primary Care Provider Tana Peña MD Unavailable Reason for Visit Reason Onset Date Comments Refill Request 10/31/2015 Testosterone Encounter Details Date Type Department Care Team Description 10/31/2015 Telephone [facility] Carrie Tinsley Refill Request Medicine Clinic MD Karly (Testosterone) [address] [place] [address] [facility] [address] [place], [place] [address] [place], [place] [phone] [facility] [phone] (Wo rk) Social History Tobacco Use Types Packs/Day Years Used Date Smoking Tobacco: Light Smoker Cigarettes 0.3 Alcohol Use Standard Drinks/Week Comments Yes 0 (1 standard drink = 0.6 oz pure alcoho l) Sex Assigned at Date Recorded Female 03/20/2020 2:05 PM CDT documented as of this encounter Miscellaneous Notes Telephone Encounter - Ericka Moran RN - 11/24/2015 3:22 PM CDT Faxed script 3 of 3 start date 11/24 to [facility]. Faxed per patient's preference. Fax successful. Ericka Moran RN Telephone Encounter - Cari Crocker RN - 10/31/2015 12:57 PM CDT Called patient to confirm [facility] to fax. Fax successful. 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
--- OUTSIDE RECORDS SUMMARY | 2022-04-12 08:21 | XMS_ITS | Encounter Summary ---
:1995 Author Organization [facility] Address [address] [place] [address] Care Team Providers Name Role Phone Bella Sears MD Unavailable Carrie Tinsley MD Primary Care Provider [phone] Reason for Visit Reason Onset Date Comments Symptoms 09/07/2015 Encounter Details Date Type Department Care Team Description 09/07/2015 Telephone [facility] Carrie Tinsley MD Symptoms Clinic [address], [id number] [place] [address] [facility] [phone] Social History Tobacco Use Types Packs/Day Years Used Date Smoking Tobacco: Light Smoker Cigarettes 0.3 Alcohol Use Standard Drinks/Week Comments Yes 0 (1 standard drink = 0.6 oz pure alcoho l) Sex Assigned at Date Recorded Female 03/20/2020 2:05 PM CDT documented as of this encounter Miscellaneous Notes Telephone Encounter - Eddie Gregorio RN - 09/07/2015 11:45 AM CDT Patient returned call. He says he has has not been able to take testosterone for over a week now. He thinks he is having withdrawal symptoms form this. Says he has vomited a couple times and is having girl symptoms and justfeels weird. He contacted his primary doctor and they prescribed injectable testosterone for him to use while we wait for PA for the patches. Patient says he will be taking 80MG (0.4mL) of Testosterone 200MG/ mL. Message forwarded to PCP so she is aware. Eddie Gregorio RN Telephone Encounter - Eddie Gregorio RN - 09/07/2015 11:33 AM CDT Left VM for patient to return call. Eddie Gregorio RN Telephone Encounter - Macho Reyes - 09/07/2015 11:17 AM CDT Patient states that he got his other clinic to prescribe the medication, but he needs to discuss thedose with a nurse. Please call patient to discuss, patient states he also has not heard from anyone yet to discuss the symptoms. Please call. Thank you! Telephone Encounter - Eddie Gregorio RN - 09/07/2015 8:39 AM CDT Message forwarded to PCP to review and advise if alternative can be prescribed while PA is being processed. Eddie Gregorio RN Telephone Encounter - Macho Reyes - 09/07/2015 8:[address] [facility] Family Medicine phone call message-patient reporting a symptom: Symptom: Patient states that he is experiencing nausea and vomiting, which he believes is due to withdrawing from hormones. Currently a prior authorization is in process for the patient's Androderm 4mg- testosterone (TESTOSTERONE) 4 MG/24HR, but he is wondering if there is an alternative (he states maybe the testosterone injection) that could be prescribed that would be covered. Same Day Visit Offered: Yes, declined Additional comments: Please call patient to discuss symptoms, and alternative medication possibilities. Thanks! OK to leave message on voice mail? Yes Primary language: Emirati Slitting Machine Feeder needed? 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
--- OUTSIDE RECORDS SUMMARY | 2022-04-12 08:22 | XMS_ITS | Encounter Summary ---
:1995 Author Organization [facility] Address [address] [place] [address] Care Team Providers Name Role Phone Unavailable Primary Care Provider Unavailable Encounter Details Date Type Department Care Team Description 09/30/2008 Emergency room [facility] Results MD Luciana [address] [place], [place] [address] (Wo rk) Social History Tobacco Use Types Packs/Day Years Used Date Smoking Tobacco: Never Assessed Sex Assigned at Date Recorded Female 03/20/2020 2:05 PM CDT documented as of this encounter Progress Notes Interface, Feller Operator - 10/03/2008 5:48 PM CDT FINAL CHIEF COMPLAINT: Difficulty breathing. HISTORY OF PRESENT ILLNESS: Naz Chakraborty is a 13-year-old young lady who was transported to the Emergency Department via paramedics after experiencing an asthma attack after a track meet. The patient was diagnosed with exercise- induced asthma approximately 5 years ago, and typically uses her inhaler before she begins any exercise or sports activity. She did do 2 puffs on her albuterol/Proventil inhaler before starting this track meet today, but she noted increasing coughing over the course of the 800K race that she running. She did finish the race, but was very short of breath and coughing almost constantly when she finished it. She did three more doses of her inhaler, 2 puffs each time, without any improvement and the paramedics were called. She does not use a spacer, she has never had a spacer, never been instructed in the appropriate use of one. The paramedics administered a DuoNeb en route,and she seemed to be improving considerably with this. The patient's mother reports that she has neve r been on steroids, she has never had any other type of inhaler, and they had just gotten a new inhaler in June. Mother reports that actually the child only used her inhaler a few times when she first got it because there was no physical education at her school and so she had no real other vigorousexercise activities, and she has had none since. She notes that her daughter has autism, and she wasencouraged to join [employer] to provide an activity where she could socialize and interact more with theother children. She is mainstreamed at this time. ALLERGIES: None. Mom notes that she does seem to have seasonal allergies, particularly in the springtime; she frequently will have a lot of runny nose, runny eyes, etc. MEDICATIONS: Albuterol inhaler. Did 2 puffs prior to the track meet, and did 2 puffs x3 after she began having problems. She takes a pill for motion sickness twice a day, does not know the name of it. PAST MEDICAL HISTORY: Exercise-induced asthma, autism. Immunizations are up-to-date. She also has ahistory of difficult motion sickness. REVIEW OF SYSTEMS: See HPI and past medical history above. All other systems are negative. PHYSICAL EXAMINATION: VITAL SIGNS: Temperature 97.4, respiratory rate 28, heart rate 125, O2 sat 97% on room air. GENERAL: The patient is pink, awake, alert, appears to be a well- developed, well-nourished 13-year-old younglady. She is coughing very frequently. HEAD: Atraumatic, nontender to palpation. EYES: Pupils equal, round and reactive to light, EOMs intact. Lids and conjunctivae are unremarkable. EAR, NOSE AND THROAT: Unremarkable. NECK: Supple without nodes or masses. RESPIRATORY: The patient is coughing very frequently. Her breath sounds appear to be tight. On auscultation, there are only very faint wheezes bilaterally. Respiratory rate is 28-32 per minute. CARDIOVASCULAR: Regular rate and rhythm. No murmur is noted. ABDOMEN: Soft and nontender. No hepatosplenomegaly, no palpable masses, no CVA tenderness. EXTREMITIES: All four are negative. NEUROLOGIC: There are no focal findings. Moves all extremities equally. The gait is normal. The neck is supple. SKIN: No rashes, bruises, petechiae, and no jaundice. PSYCHIATRIC: The patient is awake, alert and oriented. She does appear to have some mild problems with interacting with strangers, but when approached very slowly and gently, she is able and willing to answer questions and is quite cooperative. She does seem to be somewhat immature for a 13-year-old young lady. COURSE IN THE EMERGENCY DEPARTMENT: The patient was given an albuterol neb for coughing. The coughing resolved and the lungs were completely clear on recheck. I had Respiratory Therapy instruct her in the appropriate use of an inhaler with a spacer. I emphasized the importance of always using the spacer; otherwise, most of the medication winds up on the tongue. The patient was given a popsicle and some crackers, as she noted she had not had anything to eat ordrink for some time. PLAN: I discussed the following plan with the parents. 1. I am placing her on a short course of prednisone 20 mg twice daily x5 days. 2.Albuterol/Proventil inhaler 2 puffs every 4-6 hours, use the spacer every time, as needed for coughing or wheezing. Shemay not need it over the next several days. 3.Elevate the head of the bed to sleep. 4.Recheck with her doctor in 3 days, sooner or return to the ER if she is feeling worse. 5.I would recommend that when she resumes track practice, etc., on Friday, that she start very slowly, using her inhaler carefully and with the spacer before she does her exercise, and build up slowly. I would not start right back with an 800K race. This is a very long race. 6.I discussed with mom that this may simply be exercise-induced asthma or that this may have been exacerbated by the fact that it was a very warm day today, that the track meet was outside, and that she typically does have some seasonal allergies as well, and she may wish to discuss with her doctor the use of an additional allergy medication such as Zyrtec or Claritin, or potentially use of a steroid inhaler. DIAGNOSES: 1.Asthma exacerbation. 2.History of sports-induced asthma. 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
--- OUTSIDE RECORDS SUMMARY | 2022-04-12 08:22 | XMS_ITS | Encounter Summary ---
:1995 Author Organization [place] Address [address] [place] [id number] Care Team Providers Name Role Phone Unknown, Provider Primary Care Provider Unavailable Bella Sears MD Unavailable Reason for Referral Mental Health Outpatient - Closed Specialty Diagnoses / Procedures Referred By Contact Refer red To Contact Diagnoses Gender dysphoria Skip Ervin MD [address] [address] Referral ID Status Reason Start Date Expiration Date Visits Requ ested Visits Authorized [id number] Closed 11/28/2014 05/27/2015 1 1 Reason for Visit Reason Onset Date Comments Consult New patient consult for testosterone therapy Erroneous encounter-disregard 12/07/2014 Encounter Details Date Type Department Care Team Description 11/28/2014 Office Visit UROLOGY CLIN[facility] AND Skip Ervin d ysphoria (Primary Dx); [facility] MD ERRONEOUS ENCOUNTER--DISREGARD PROSTATE AND UROLOGIC [address] [facility] [address] [place], [place] [address] [address] [address] FLOOR, [address] 420 [facility] , [address] [id number] Social History Tobacco Use Types Packs/Day Years Used Date Smoking Tobacco: Every Day Alcohol Use Standard Drinks/Week Comments Not Asked 0 (1 standard drink = 0.6 oz pure alcoho l) Sex Assigned at Date Recorded Female 03/20/2020 2:05 PM CDT documented as of this encounter Last Filed Vital Signs Vital Sign Reading Time Taken Comments Blood Pressure 98/68 11/28/2014 10:20 AM CDT Pulse 82 11/28/2014 10:20 AM CDT Temperature - - Respiratory Rate - - Oxygen Saturation - - Inhaled Oxygen Concentration - - Weight 71 kg (156 lb 8 oz) 11/28/2014 10:20 AM CDT Height 165.1 cm (5' 5) 11/28/2014 10:20 AM CDT Body Mass Index 26.04 11/28/2014 10:20 AM CDT documented in this encounter Patient Instructions Patient InstructionsSkip Ervin MD - 11/28/2014 11:15 AM CDT I would recommend our [facility] for the initial evaluation you would need. documented in this encounter Progress Notes Skip Ervin MD - 11/28/2014 11:26 AM CDT CHIEF COMPLAINT: This is a 19-year-old woman with feelings of gender dysphoria desiring testosteronehormone treatment. Ms. Chakraborty is here to discuss masculinizing hormone therapy. She was referred from her primary clinicin [place]. The patient says that she has felt like she knew since she was very young that she would be more comfortable as male, but tend to ignore these feelings. She came out as segundo at age 14. She says she continues to feel that she rather be a faviola and would like to pursue masculinizing hormone therapy. I asked her if she had seen a psychologist or therapist to discuss these feelings and to assess her appropriateness for hormone therapy. She said she had not seen anyone and did not feel that she needed to see anyone as she knew that this is what she wanted. At that point, I discussed with her that it was my practice only to prescribe hormone therapy to patients who have undergone appropriate psychological and mental health assessment and only after we have received a letter from their therapist stating they were felt to be an appropriate candidate for mas culinizing hormone therapy. I discussed with Ms. Chakraborty that I think at this point it would be premature to proceed with things in our clinic. Rather than pursue a visit today, I think we should defer any further evaluation with us until she has had appropriate evaluation. We will not charge her for the visit today. I discussed with her that we do have a comprehensive clinic here at [facility]. This clinic deals with a number of sexual health issues including transgender patients. They have the services both for the mental health evaluation as well as the medical prescribing. I would recommend that she start with them for initial evaluation. Following appropriate evaluation by them, she could choose to either continue with them for hormone therapy or if she wished to return to see me I could see her at that point to complete medicalevaluation. PLAN: 1. We will not charge the patient for the visit today. 2. I apologized to her that she had made an unnecessary trip but unfortunately we would not pursue any evaluation or treatment at this point until she has had appropriate mental health evaluation. 3. We made a referral and gave her information for our [facility] so she can arrange initial evaluation by them. This encounter was opened in error. Please disregard. documented in this encounter Nursing Notes Cristela Waggoner CMA - 11/28/2014 10:21 AM CDT Chief Complaint Patient presents with ??? Consult New patient consult for testosterone therapy Initial Ht 1.651 m (5' 5) Wt 70.988 kg (156 lb 8 oz) BMI 26.04 kg/m2 Estimated body mass index is 26.04 kg/(m^2) as calculated from the following: Height as of this encounter: 1.651 m (5' 5). Weight as of this encounter: 70.988 kg (156 lb 8 oz). 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
--- OUTSIDE RECORDS SUMMARY | 2022-04-12 08:23 | XMS_ITS ---
:1995 Author Care Team Providers Name Role Phone KALEE MORENO MD Primary Care Provider [phone] Allergies Code Code System Name Reaction Severity Status Onset NKDA ? Medications Name Status Start Date Stop Date ? ? bacitracin 500 unit/gram topical ointment Completed ? 01/20/2019 APPLY GENEROUSLY OVER SKIN GRAFT TWO TIMES A DAY FOR 4 WEEKS cefdinir 300 mg capsule Completed ? 07/23/19 20 TAKE 1 CAPSULE BY MOUTH TWO TIMES A DAY. cephalexin 500 mg capsule Completed ? 2018 TAKE ONE CAPSULE BY MOUTH FOUR TIMES A DAY FOR 7 DAYS ciprofloxacin 500 mg tablet Completed ? 12/2018 TAKE ONE TABLET BY MOUTH EVERY 12 HOURS desvenlafaxine ER 50 mg tablet,extended release 24 hour Active ? Not available Take 1 tablet every day by oral route. DOK 100 mg capsule Completed ? 01/20/2019 TAKE ONE CAPSULE BY MOUTH TWICE A DAY enoxaparin 100 mg/mL subcutaneous syringe Completed ? 01/20/2019 INJECT 50MG (0.5ML) SUBCUTANEOUSLY EVERY 12 HOURS enoxaparin 30 mg/0.3 mL subcutaneous syringe Completed ? 01/20/2019 INJECT 1 SYRINGE SUBCUTANEOUSLY EVERY 12 HOURS, LIMIT 30 SYRING ES/ DAYS enoxaparin 60 mg/0.6 mL subcutaneous syringe Completed ? 01/20/2019 INJECT 30 MG (1/2 OF PRELOADED SYRINGE) TWO TIMES A DAY TO PREV ENT CLOTTING fluconazole 100 mg tablet Completed ? 2018 TAKE ONE TABLET BY MOUTH ONCE DAILY fluconazole 150 mg tablet Completed ? 2018 TAKE ONE TABLET BY MOUTH ONCE DAILY FOR 3 DAYS gabapentin 300 mg capsule Active ? Not av ailable TAKE 1 CAPSULE BY MOUTH 3x daily gabapentin 600 mg tablet Active ? Not mike ilable Hibiclens 4 % topical liquid Completed ? 12/2018 USE TO BATHE WITH NIGHT BEFORE SURGERY hydrocodone 5 mg-acetaminophen 325 mg tablet Active ? Not available metronidazole 500 mg tablet Completed ? 12/2018 TAKE ONE TABLET BY MOUTH TWICE A DAY montelukast 10 mg tablet Completed ? 020 TAKE ONE TABLET BY MOUTH AT BEDTIME mupirocin 2 % topical ointment Completed ? 0 01/20/2019 APPLY TO VENTRAL SIDE OF PHALLUS TWICE DAILY WITH XEROFORM. APPLY LIBERAL AMOUNT TO RIGHT FOREARM WITH XEROFORM, KERLEX, JOS) AND CHANGE PAULA omeprazole 20 mg capsule,delayed release Active ? Not available Take 1 capsule every day by oral route. ondansetron Active ? Not available paroxetine 20 mg tablet Completed ? 01/21/20 19 TAKE ONE TABLET BY MOUTH ONCE DAILY phenazopyridine 100 mg tablet Completed ? TAKE ONE TABLET BY MOUTH THREE TIMES A DAY NEEDED FOR URINARY TRACT DISCOMFORT prednisone 10 mg tablet Completed ? 01/21/20 19 TAKE ONE TABLET BY MOUTH TWICE A DAY prochlorperazine maleate 5 mg tablet Completed ? 07/23/2019 TAKE ONE TABLET BY MOUTH EVERY 6 HOURS NEEDED FOR NAUSEA rosuvastatin 5 mg tablet Active ? Not mike ilable Take 1 tablet every day by oral route. solifenacin 5 mg tablet Active ? Not avai lable Take 1 tablet every day by oral route. temazepam 15 mg capsule Completed ? 07/23/19 20 TAKE 1-2 CAPS BY MOUTH AT BEDTIME NEEDED topiramate 50 mg tablet Active ? Not avai lable tramadol 50 mg tablet Completed ? 01/20/2019 TAKE ONE TABLET BY MOUTH EVERY 4 HOURS NEEDED FOR PAIN valacyclovir 1 gram tablet Active ? Not a vailable valacyclovir 500 mg tablet Active ? Not a vailable TAKE ONE TABLET BY MOUTH ONCE DAILY Vesicare 10 mg tablet Completed ? 01/20/2019 TAKE ONE TABLET BY MOUTH ONCE DAILY FOR BLADDER SPASM Vitamin D3 50 mcg (2,000 unit) capsule Completed ? 07/23/2019 TAKE ONE CAPSULE BY MOUTH ONCE DAILY Xeroform Petrolatum Dressing 5 X 9 Completed ? 01/20/2019 APPLY TO AFFECTED AREA(S) DIRECTED Problems Name Status Onset Date Source ? Gender Dysphoria Active 01/20/2019 ? Procedures Date Name Performed by ? 08/05/2019 Repair, Intermediate, Wounds of External Information not available Genitalia (Surg) 11/28/2017 Split Thickness Skin Graft Information n ot available 11/07/2017 Other (Please Specify in Notes Field) In formation not available Notes: Phalloplasty 11/27/2016 Mastectomy Information not avai lable 01/10/2016 Hysterectomy Information not avai lable Results Lab Results None recorded. Past Encounters None recorded. Social History Tobacco Smoking Status Current Some Day Smoker Vaccine List None recorded. Plan of Care Reminders Provider Appointments None recorded. ? ? Lab None recorded. ? ? Referral None recorded. ? ? Procedures None recorded. ? ? Surgeries None recorded. ? ? Imaging None recorded. ? ? Vitals 08/04/2019 11:00AM Est Patient Height 5 ft 4.25 in 01/20/2019 12:15PM Est Patient Height Weight BMI 5 ft 4.25 in 189 lbs 32.2 kg/m2
[2022-04-12 10:23] LABS: Albumin* 4.9 g/dL (3.3-5.0)
[2022-04-12 10:24] LABS: Chloride* 102 mmol/L (96-114); Potassium* 4.7 mmol/L (3.6-5.1); Sodium* 139 mmol/L (135-149)
[2022-04-12 10:26] LABS: Bilirubin Total* 0.6 mg/dL (0.1-1.5); Carbon Dioxide* 23 mmol/L (20-32); Creatinine* 1.3 mg/dL (0.5-1.5); Estimated Glomerular Filt Rate 77 ml/min; Total Protein* 7.6 g/dL (6.0-8.3)
[2022-04-12 10:27] LABS: Alanine Aminotransferase* 82 U/L (4-50); Alkaline Phosphatase* 72 U/L (40-150); Aspartate Amino Transferase* 55 U/L (12-35); Blood Urea Nitrogen* 15 mg/dL (5-24); Calcium* 9.6 mg/dL (8.4-10.6); Glucose* 126 mg/dL (60-115); HDL Cholesterol* 42 mg/dL (>=40)
[2022-04-12 11:00] LABS: Cholesterol* 386 mg/dL (90-199); LDL Cholesterol Calculated 173 mg/dL (<100); Triglycerides* 853 mg/dL (40-149)
== END 2022-04-12 13:02 | disposition home or self-care (01) ==
PROVIDERS: PCP Family Medicine; Visit Provider Family Medicine
DX: E78.5 Hyperlipidemia, unspecified (principal); I10 Essential (primary) hypertension; F41.9 Anxiety disorder, unspecified
CPT/HCPCS: 80053; 80061

== ENCOUNTER 2022-06-04 14:30 | Outpatient (RCR) | payer OTHER, SELFPAY ==
--- NOTE | 2022-03-21 13:01 | OT.OPOE ---
OT Outpatient Ortho Eval OT Outpatient Ortho Eval Start: 03/20/22 18:56 Freq: Status: Active Protocol: Document 03/21/22 10:32 AMB (Rec: 03/21/22 12:51 AMB [id number]) E-signed By Leanne Jason, OTR/L, CLT, RESIDENT MEDICAL OFFICER OT OP Ortho Eval Details Type Type Eval Complexity Low Insurance Information Insurance Information [facility] Insurance Information Comments [facility] Outpatient History/Precautions Current Condition/Medical Diagnosis Referring Provider Ailabouni Treatment Diagnosis RUE hand swelling and BUE CTS Date of Onset 02/28/22 Chronic Other Conditions PMH: BUE CTS, HTN, Transgender with history of sex reassignment surgery, Steatosis of liver, mild intermittent asthma, migraine WHITE, medical marijuana use, IBS , Insomnia secondary to anxiety, high cholesterol, genital herpes simplex, gastroparesis, gastoresophageal relfux disease, excessive daytime sleepiness, elevated liver function, elevated lipids, dyslipidemia, difficulty with sleep, delayed gastric emptying, degeneration of intervertebral disc of lumbar region, chronic pain syndrome, bipolar disorder, autism spectrum disorder, anxiety with depression. PSH: Bilateral mastectomy, hysterectomy, phalloplasty, skin graft, tooth extraction, spinal cord stimulator, gender re-assignment surgery Medications: Albuterol, buspirone, cyclobenzaprine, desvenlafaxine succinate, dicyclomine, lisinopril, meloxicam, metoclopramide HCI, nortriptyline, ondansetron HCI, oxcarbazepine, pantoprazole, pregabalin, rizatriptan, rosuvastatin, testosterone cypionate, valacyclovir Medical/Functional History Medical History Reviewed Yes Social History Employment Status Unemployed Oriented Mental Status No Concerns Ortho Subjective Subjective Subjective Pt states he has been having numbness and swelling in his right hand since his phalloplasty surgery in 2018, states it has increasingly worsened with time. Now having trouble holding onto things, feels he is constantly dropping items and sometimes has difficulty picking things up. Pt states he has started to have numbness in his left thumb as well. Pt states he pretty much has numbness all the time in his right hand and occasionally in the left thumb. 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 Pt states he plays video games pretty much all day on most days, sometimes a 1/2 day . Pt takes occasional walks, Probably not as much as I should. Pt denies ever having an EMG study or a consult with a vascular specialist. Pt does have wrist cock up splints and compression gloves but states he has trouble remembering to put them on. Pain Assessment Pain Present Pain Present Pain Reported Location Right Hand Description Burning,Tightness,Radiating, Sharp,Cramping,Spasm,Shooting Intensity 7 Goniometric Comments Goniometric Comments Goniometric Comments Pt demonstrates AROM to be WNL throughout BUE, strength 4-5/ 5. Hand Pinch/Assembled Wood Products Repairer Strength Hand Right Assembled Wood Products Repairer Strength Position 1 (lbs) 48 Lateral Pinch Strength (lbs) 19 Three Point Pinch (lbs) 14 Left Assembled Wood Products Repairer Strength Position 1 (lbs) 45 Lateral Pinch Strength (lbs) 16 Three Point Pinch (lbs) 10 Edema Assessment Location Right Hand Edema Type Non-Pitting Edema Appearance Tight,Puffy Description Subjective Edema Description Tightness Additional Information Comments Measurements were taken of BUE hands / wrists: Wrist on RUE is 19.5cm, LUE is 18.0cm Palm on RUE is 24cm, LUE is 21.5cm First Phalanx on the RUE thumb is 7.5cm, LUE is 7.0cm First Phalanx on the RUE Index finger is 7.8cm, LUE is 7. 0cm First Phalanx on the RUE 3rd digit is 7.3, LUE is 6.8cm First Phalanx on the RUE 4th digit is 7.3, LUE is 6.6cm First Phalanx on the RUE 5th digit is 6.8cm, LUE is 6.0 Total measurement on the RUE is 80.2cm Total measurement on the LUE is 72.9cm Difference is: 7.3cm OT Objective Data Hand Hand Dominance Right Sensation Sensation Assessment Summary Comments Impaired sensation throughout the RUE thumb, index, and middle finger and LUE thumb. Additional Information Objective Additional Information Pt's RUE appeared discolored throughout portions of the exam today, pulses are palpable and regular, capillary re-fill is acceptable. Pt states his right hand is often a different color. Upper Extremity Special Tests Wrist Durkan's Test Positive Left,Positive Right Median Nerve-Carpal Tunnel Wrist Phalen Test Positive Left,Positive Right Ulnar Nerve Froment's Sign Negative Left,Positive Right OT Problems Problems Problems Decreased Strength,Gripping, Pinching Problems Comments Pt is vague with description of episodes of paresthesia, sometimes at night, sometimes in the morning, but most of the time. Other Problems Writing,Opening Containers, Computer Patient Potential Good Assessment Assessment Assessment Pt presents to OT with compliants of weakness, pain, paresthesia and swelling in his right hand and paresthesia in his left thumb. Pt is having difficulty grasping, holding and pinching objects and is concerned about his sxs as they seem to be worsening with time. Pt will benefit from skilled OT intervention to address the above sxs/ deficits and restore full, pain-free use of BUE as well as to reduce risk for infection due to lymphedema / swelling in the right hand. Pt will benefit from the modalities listed below as well as extensive education on ergonomics / activity modification and HEP for LT managment. Occupational Therapy Treatment Plan - OP Set Goals Goals Set with Patient Yes Goals Goals 1. Pt will be independent and compliant with HEP for edema reduction and differential tendon glides/stretching/nerve glides in order to maximize positive outcomes and restore strength and reduce swelling in RUE hand. 3 weeks 2. Pt will verbalize the absence of paresthesia in his RUE for at least 5 consecutive days allowing for better sleep and ability to grasp, pinch, and hold things. 6 weeks 3. There will be a noted reduction of at least 4cm from the total measurement of the right hand in order to decrease pressure on the median nn, decrease risk for infection / cellulitis and restore full, pain-free use of the RUE. 10 weeks Progress set Treatment Plan Treatment Plan Evaluation,Edema Control, Iontophoresis,Joint Mobilization,Manual Therapy, Splinting,Ultrasound,Wound Care/Scar Management, Therapeutic Exercise, Therapeutic Activities,Self- Care/Home Management Expected Frequency 1-2x Week Expected Duration 8-10 Weeks Certification Certification I Certify That: Therapy Services Provided, Therapy Plan Established, Therapy Plan Reviewed Recertification Information Recertification Information Initial Certification Date 03/21/22 Recertification Due Date 06/20/22 Reasons to Continue Skilled Therapy Pt initiated OT today. Rehabilitation Potential Good Continued Plan of Care and Interventions US, MT, TE, TA, Self Care, Ionto, education, compression Provider Signature Shows Agreement With POC & Medical Necessity Physician Comment/Change Comment or Changes Physician NPI Number #
== END 2023-01-02 23:59 | disposition home or self-care (01) ==
PROVIDERS: PCP Family Medicine; Visit Provider Family Medicine
DX: M79.89 Other specified soft tissue disorders (principal); Z51.89 Encounter for other specified aftercare
CPT/HCPCS: 97035; 97110; 97140; 97165; 97535; X5282

== ENCOUNTER 2022-07-17 10:25 | Outpatient (CLI) | payer OTHER, SELFPAY ==
[2022-07-17 12:32] LABS: Cholesterol* 318 mg/dL (90-199)
[2022-07-17 12:33] LABS: HDL Cholesterol* 56 mg/dL (>=40)
[2022-07-17 12:58] LABS: LDL Cholesterol Calculated 108 mg/dL (<100); Triglycerides* 770 mg/dL (40-149)
== END 2022-07-17 10:26 | disposition home or self-care (01) ==
LOC: NFLDREF 10:25
PROVIDERS: PCP Family Medicine; Visit Provider Family Medicine
DX: Z13.6 Encounter for screening for cardiovascular disorders (principal)
CPT/HCPCS: 80061

== ENCOUNTER 2022-09-11 13:40 | Outpatient (CLI) | payer OTHER, SELFPAY | END 2022-09-11 13:41 | disposition home or self-care (01) | PROVIDERS: PCP Family Medicine; Visit Provider Internal Medicine | DX: Z01.818 Encounter for other preprocedural examination (principal) | CPT/HCPCS: 80053; 86703 ==

== ENCOUNTER 2025-03-10 10:27 | Outpatient (CLI) | payer OTHER, SELFPAY ==
--- NOTE | 2025-03-10 11:00 | CRLHL7_ITS ---
For Patients: As a result of the Century Cures Act, medical imaging exams and procedure reports are released immediately into your electronic medical record. You may view this report before your referring provider. If you have questions, please contact your health care provider. INDICATION: Headache. TECHNIQUE: Routine CT images of the paranasal sinuses without contrast. Multiplanar reconstructions. FINDINGS: Frontal: The frontal air cells are clear the inferior frontal recesses patent. Ethmoid: Bilateral ethmoid air cells are clear. Sphenoid: Sphenoid air cells are clear and the sphenoid ethmoidal recesses patent. Maxillary: Maxillary sinuses are clear bilaterally and the ostiomeatal units are patent. Nasal fossa: There is a convex right curvature of the nasal septum and a rightward directed septal spur the that some narrowing of the right nasal fossa. The posterior nasal fossa and the nasopharynx are unremarkable. The middle ear cavities and mastoid air cells are well developed and grossly clear. IMPRESSION: 1. Clear paranasal sinuses and patent bilateral ostiomeatal units. 2. Incidental nasal septal curvature. Please note that all CT scans at this facility use dose modulation, iterative reconstruction, and/or weight-based dosing when appropriate to reduce radiation dose to as low as reasonably achievable. Dictated by Jose Chawla MD @ 03/11/2025 9:43:59 AM (Electronically Signed)
== END 2025-03-10 10:28 | disposition home or self-care (01) ==
PROVIDERS: PCP Clinical Nurse Specialist Adult Health; Visit Provider Otolaryngology
DX: R51.9 Headache, unspecified (principal); J34.2 Deviated nasal septum
CPT/HCPCS: 70486